=== PATIENT | female | born 1955 | race American Indian/Alaskan Native ===

== ENCOUNTER 2019-03-04 19:24 | Inpatient (IN) | payer SELFPAY ==
[2019-03-04 20:14] LABS: Basophils # (Auto) 0.1 K/mm3 (0.0-0.1); Basophils % (Auto) 1.6 % (0.0-1.8); Eosinophils # (Auto) 0.3 K/mm3 (0.0-0.4); Eosinophils % (Auto) 6.4 % (0.0-4.3); Hematocrit 44.2 % (30.3-42.9); Hemoglobin 15.2 gm/dl (10.1-14.3); Lymphocytes # (Auto) 2.1 K/mm3 (1.2-5.4); Lymphocytes % (Auto) 39.6 % (13.4-35.0); Mean Corpuscular HGB Conc 35 % (30-34); Mean Corpuscular Volume 93 fl (79-97); Monocytes # (Auto) 0.6 K/mm3 (0.0-0.8); Monocytes % (Auto) 10.7 % (0.0-7.3); Platelet Count 182 K/mm3 (140-440); Red Blood Count 4.76 M/mm3 (3.65-5.03); Red Cell Distribution Width 13.7 % (13.2-15.2)
[2019-03-04 20:26] LABS: INR 1.05 (0.87-1.13); Partial Thromboplastin Time 30.1 Sec. (24.2-36.6)
[2019-03-04 20:28] LABS: BUN/Creatinine Ratio 23; Blood Urea Nitrogen 64 mg/dL (7-17); Calcium 10.2 mg/dL (8.4-10.2); Hemolysis Index 11
--- NOTE | 2019-03-04 20:40 | Event Note ---
ED Screening Note ED Screening Note: This initial assessment/diagnostic orders/clinical plan/treatment(s) is/are subject to change based on patients health status, clinical progression and re- assessment by fellow clinical providers in the ED. Further treatment and workup at subsequent clinical providers discretion. Patient/guardian urged not to elope from the ED as their condition may be serious if not clinically assessed and managed. Initial orders include:
[2019-03-04] MEDS ORDERED: NACL 0.9% 1000 ML 1,000 ML IV ONE (21:16)
--- NOTE | 2019-03-04 21:55 | Emergency Department Report ---
ED N/V/D HPI - General Chief complaint: Nausea/Vomiting/Diarrhea Stated complaint: VOMITTING LOSS OF APPETITE Time Seen by Provider: 03/04/19 21:07 Source: family Mode of arrival: Wheelchair Limitations: Physical Limitation - History of Present Illness Initial comments: 63-year-old female with a past medical history CVA with residual dysarthria, left-sided facial droop, left-sided arm and leg weakness, hypertension, elevated cholesterol to the hospital complaining of nausea and poor by mouth tolerance for the past 4 days. Patient states that the smell of food makes her nauseated and therefore she has not been eating. She has been drinking lots of water. She denies headache, chest pain, abdominal pain, diarrhea, dysuria, or fever. She is visiting here from [place]. She denies a known history of renal insufficiency and states she is compliant with her medication. She denies previous abdominal surgeries Patient's daughter at the bedside at 11:50 PM and provided additional history of present illness. Patient apparently had a stroke 2 weeks ago while in [place] and was discharged then subsequently brought here to [facility] 2 weeks ago. Daughter also states that patient is having some trouble swallowing. Pt states she feels like pills get stuck when swallowing pills but drinking additional fluid helps. Pt passed swallow screen in the ED. - Related Data Allergies Allergy/AdvReac Type Severity Reaction Status Date / Time No Known Allergies Allergy Unverified 03/04/19 19:33 ED Review of Systems ROS: Stated complaint: VOMITTING LOSS OF APPETITE Other details as noted in HPI Comment: All other systems reviewed and negative ED Past Medical Hx - Past Medical History Previous Medical History?: Yes Hx Hypertension: Yes Hx CVA: Yes (left side deficits) Additional medical history: high cholesterol - Surgical History Past Surgical History?: No - Social History Smoking Status: Former Smoker Substance Use Type: None ED Physical Exam - General Limitations: Physical Limitation - Other Other exam information: General: No limitations, patient is alert in no acute distress Head exam: Atraumatic, normocephalic Eyes exam: Normal appearance, pupils equal reactive to light, extraocular movements intact ENT: Moist mucous membrane, normal oropharynx Neck exam: Normal inspection, full range of motion, no meningismus nontender Respiratory exam: Clear to auscultation bilateral, no wheezes, rales, crackles Cardiovascular: Normal rate and rhythm, Abdomen: Soft, nondistended, and nontender, with normal bowel sounds, no rebound, or guarding Extremity: Full range of motion normal inspection no deformity Back: Normal Inspection, full range of motion, no tenderness Neurologic: Alert, oriented x3, left-sided facial droop, dysarthria, left arm and leg with minimal movement secondary to previous CVA Psychiatric: normal affect, normal mood Skin: Warm, dry, intact ED Course Vital Signs 03/04/19 03/04/19 03/04/19 19:46 21:03 21:12 Temperature Pulse Rate 99 H Respiratory 16 18 Rate Blood Pressure 107/68 Blood Pressure [Right] O2 Sat by Pulse 95 100 99 Oximetry 03/04/19 03/04/19 03/04/19 21:13 21:15 21:31 Temperature 97.7 F Pulse Rate 86 Respiratory 18 Rate Blood Pressure 103/62 Blood Pressure 103/62 [Right] O2 Sat by Pulse 98 99 100 Oximetry - Consultations Consultation #1: 03/05/19 00:08 case d/w Dr Ferguson Nephrology, will consult ED Medical Decision Making - Lab Data Result diagrams: 03/04/19 Unknown 03/04/19 Unknown Lab Results 03/04/19 03/04/19 03/04/19 Range/Units 21:10 21:18 21:49 WBC (4.5-11.0) K/mm3 RBC (3.65-5.03) M/mm3 Hgb (10.1-14.3) gm/dl Hct (30.3-42.9) % MCV (79-97) fl MCH (28-32) pg MCHC (30-34) % RDW (13.2-15.2) % Plt Count (140-440) K/mm3 Lymph % (Auto) (13.4-35.0) % [place] % (Auto) (0.0-7.3) % Eos % (Auto) (0.0-4.3) % Baso % (Auto) (0.0-1.8) % Lymph # (1.2-5.4) K/mm3 [place] # (0.0-0.8) K/mm3 Eos # (0.0-0.4) K/mm3 Baso # (0.0-0.1) K/mm3 Seg Neutrophils % (40.0-70.0) % Seg Neutrophils # (1.8-7.7) K/mm3 PT (12.2-14.9) Sec. INR (0.87-1.13) APTT (24.2-36.6) Sec. Thrombin Time (15.1-19.6) Sec. Sodium (137-145) mmol/L Potassium (3.6-5.0) mmol/L Chloride (98-107) mmol/L Carbon Dioxide (22-30) mmol/L Anion Gap mmol/L BUN (7-17) mg/dL Creatinine (0.7-1.2) mg/dL Estimated GFR ml/min BUN/Creatinine Ratio % Glucose (65-100) mg/dL Calcium (8.4-10.2) mg/dL Magnesium 0.20 L* (1.7-2.3) mg/dL Total Bilirubin 0.60 (0.1-1.2) mg/dL Direct Bilirubin < 0.2 (0-0.2) mg/dL Indirect Bilirubin 0.4 mg/dL AST 38 (5-40) units/L ALT 22 (7-56) units/L Alkaline Phosphatase 124 (35-129) units/L Troponin T (0.00-0.029) ng/mL Total Protein 7.6 (6.3-8.2) g/dL Albumin 3.9 (3.9-5) g/dL Albumin/Globulin Ratio 1.1 % Lipase 24 (13-60) units/L 03/04/19 03/04/19 03/04/19 Range/Units Unknown Unknown Unknown WBC 5.4 (4.5-11.0) K/mm3 RBC 4.76 (3.65-5.03) M/mm3 Hgb 15.2 H (10.1-14.3) gm/dl Hct 44.2 H (30.3-42.9) % MCV 93 (79-97) fl MCH 32 (28-32) pg MCHC 35 H (30-34) % RDW 13.7 (13.2-15.2) % Plt Count 182 (140-440) K/mm3 Lymph % (Auto) 39.6 H (13.4-35.0) % Marion % (Auto) 10.7 H (0.0-7.3) % Eos % (Auto) 6.4 H (0.0-4.3) % Baso % (Auto) 1.6 (0.0-1.8) % Lymph # 2.1 (1.2-5.4) K/mm3 Marion # 0.6 (0.0-0.8) K/mm3 Eos # 0.3 (0.0-0.4) K/mm3 Baso # 0.1 (0.0-0.1) K/mm3 Seg Neutrophils % 41.7 (40.0-70.0) % Seg Neutrophils # 2.3 (1.8-7.7) K/mm3 PT 14.4 (12.2-14.9) Sec. INR 1.05 (0.87-1.13) APTT 30.1 (24.2-36.6) Sec. Thrombin Time (15.1-19.6) Sec. Sodium 133 L (137-145) mmol/L Potassium 3.3 L (3.6-5.0) mmol/L Chloride 87.6 L (98-107) mmol/L Carbon Dioxide 25 (22-30) mmol/L Anion Gap 24 mmol/L BUN 64 H (7-17) mg/dL Creatinine 2.8 H (0.7-1.2) mg/dL Estimated GFR 17 ml/min BUN/Creatinine Ratio 23 % Glucose 84 (65-100) mg/dL Calcium 10.2 (8.4-10.2) mg/dL Magnesium (1.7-2.3) mg/dL Total Bilirubin (0.1-1.2) mg/dL Direct Bilirubin (0-0.2) mg/dL Indirect Bilirubin mg/dL AST (5-40) units/L ALT (7-56) units/L Alkaline Phosphatase (35-129) units/L Troponin T < 0.010 (0.00-0.029) ng/mL Total Protein (6.3-8.2) g/dL Albumin (3.9-5) g/dL Albumin/Globulin Ratio % Lipase (13-60) units/L 03/04/19 Range/Units Unknown WBC (4.5-11.0) K/mm3 RBC (3.65-5.03) M/mm3 Hgb (10.1-14.3) gm/dl Hct (30.3-42.9) % MCV (79-97) fl MCH (28-32) pg MCHC (30-34) % RDW (13.2-15.2) % Plt Count (140-440) K/mm3 Lymph % (Auto) (13.4-35.0) % [place] % (Auto) (0.0-7.3) % Eos % (Auto) (0.0-4.3) % Baso % (Auto) (0.0-1.8) % Lymph # (1.2-5.4) K/mm3 [place] # (0.0-0.8) K/mm3 Eos # (0.0-0.4) K/mm3 Baso # (0.0-0.1) K/mm3 Seg Neutrophils % (40.0-70.0) % Seg Neutrophils # (1.8-7.7) K/mm3 PT (12.2-14.9) Sec. INR (0.87-1.13) APTT (24.2-36.6) Sec. Thrombin Time 18.3 (15.1-19.6) Sec. Sodium (137-145) mmol/L Potassium (3.6-5.0) mmol/L Chloride (98-107) mmol/L Carbon Dioxide (22-30) mmol/L Anion Gap mmol/L BUN (7-17) mg/dL Creatinine (0.7-1.2) mg/dL Estimated GFR ml/min BUN/Creatinine Ratio % Glucose (65-100) mg/dL Calcium (8.4-10.2) mg/dL Magnesium (1.7-2.3) mg/dL Total Bilirubin (0.1-1.2) mg/dL Direct Bilirubin (0-0.2) mg/dL Indirect Bilirubin mg/dL AST (5-40) units/L ALT (7-56) units/L Alkaline Phosphatase (35-129) units/L Troponin T (0.00-0.029) ng/mL Total Protein (6.3-8.2) g/dL Albumin (3.9-5) g/dL Albumin/Globulin Ratio % Lipase (13-60) units/L - EKG Data -: EKG Interpreted by [facility] EKG shows normal: sinus rhythm, axis (qrs 45), QRS complexes (qrsd 85), ST-T waves (no stemi) Rate: tachycardia (110) - Radiology Data Radiology results: report reviewed PROCEDURE: CT head without contrast. TECHNIQUE: Computerized tomography of the head was performed without contrast material. CT DOSE LENGTH PRODUCT: 805.4 mGycm HISTORY: neuro deficits <6hrs or sx present upon awakening COMPARISONS: None. FINDINGS: The ventricles are normal in size. There is diminished attenuation within the lateral portions of the right frontal and right temporal lobes. This shows no mass effect. The appearance is consistent with encephalomalacia, likely secondary to a prior stroke. There is an old lacunar infarct in the left putamen. There is mild evidence of chronic ischemic white matter disease. There are no mass lesions. There is no intracranial hemorrhage. The calvarium appears intact. The mastoid air cells and visualized paranasal sinuses are well aerated. IMPRESSION: Old right-sided stroke. No evidence of acute disease. ADDENDUM ADDENDUM: Findings were discussed with Dr. Almendarez at 11:45 PM EST on March 04, 2019 This document is electronically signed by Wenceslao Riddle MD., March 05 2019 12:46:32 AM ET Addendum Transcribed By: ANGELINA Addendum Dictated By: SHELIA RIDDLE MD Addendum Electronically Authenticated By: SHELIA RIDDLE MD Addendum Signed Date/Time: 03/04/19 2348 DD/ TD/TT: 03/04/19 PROCEDURE: CT ABDOMEN PELVIS WO CON TECHNIQUE: CT abdomen and pelvis without intravenous contrast HISTORY: nausea, not eating, acute renal insufficiency COMPARISONS: There are no prior studies available for comparison FINDINGS: No acute abnormalities identified in the lung bases. Nonenhanced images of the liver demonstrate no focal abnormality. Spleen is normal in size and attenuation. The pancreas is unremarkable Numerous dense foci are seen layering within the lumen of the gallbladder There is a large complex cystic septated mass upper lobe of the right kidney measuring 0.5 x 4.7 x 4.8 cm. There is some peripheral calcification. Numerous nonobstructing renal calculi are identified largest measuring 0.93 cm. No ureteral calculus identified. no evidence for hydronephrosis. There are multiple nonobstructing left renal calculi the largest measuring 0.63 cm no evidence for hydronephrosis. Adrenal glands are unremarkable. The aorta is normal in caliber. No evidence for colonic or small bowel distention. No free fluid or free air identified. Appendix is identified and is unremarkable. Urinary bladder is unremarkable. Uterus appears normal in size. IMPRESSION: Large cystic mass upper pole of the right kidney highly concerning for neoplasm Multiple bilateral nonobstructing renal calculi Cholelithiasis multiple small stones in the gallbladder CTR 2 protocol initiated at the time of this dictation - Medical Decision Making admission for ARF, Renal MAss possible CA, dehydration and electrolyte abnormalities Patient treated with IV magnesium, IV normal saline, and by mouth potassium in the ED. Patient passed her swallow screen. Patient has chronic deficits, recent CVA 2 weeks ago. Daughter plans to bring in her recent workup from [place]. Nephrology consulted Hospitalist informed for admission urine pending at dispo - Differential Diagnosis anemia, infection, gastroenteritis, cancer Critical Care Time: No Critical care attestation.: If time is entered above; I have spent that time in minutes in the direct care of this critically ill patient, excluding procedure time. ED Disposition Clinical Impression: Acute renal insufficiency, Poor appetite, Renal mass, Hypokalemia, Hypomagnesemia Disposition: OP ADMIT IP TO THIS HOSP Is pt being admited?: Yes Condition: Stable Time of Disposition: 00:23 (Dr Menendez/hosp)
[2019-03-04 22:09] LABS: Alanine Aminotransferase 22 units/L (7-56); Albumin 3.9 g/dL (3.9-5)
[2019-03-04 22:12] LABS: Bilirubin,Direct < 0.2 mg/dL (0-0.2)
[2019-03-04] MEDS ORDERED: MAGNESIUM SULFATE 2GM/50ML 2 GM/50 ML BAG IV ONE ×2 (22:15→22:18)
--- NOTE | 2019-03-04 22:22 | Cat Scan Report ---
PROCEDURE: CT head without contrast. TECHNIQUE: Computerized tomography of the head was performed without contrast material. CT DOSE LENGTH PRODUCT: 805.4 mGycm HISTORY: neuro deficits <6hrs or sx present upon awakening COMPARISONS: None. FINDINGS: The ventricles are normal in size. There is diminished attenuation within the lateral portions of the right frontal and right temporal lobes. This shows no mass effect. The appearance is consistent with encephalomalacia, likely secondary to a prior stroke. There is an old lacunar infarct in the left pu tamen. There is mild evidence of chronic ischemic white matter disease. There are no mass lesions. Th ere is no intracranial hemorrhage. The calvarium appears intact. The mastoid air cells and visualized paranasal sinuses are well aerated. IMPRESSION: Old right-sided stroke. No evidence of acute disease. This document is electronically signed by Cm Redding MD., Mar 04 2019 11:20:24 PM ET
--- NOTE | 2019-03-04 23:42 | Cat Scan Report ---
PROCEDURE: CT ABDOMEN PELVIS WO CON TECHNIQUE: CT abdomen and pelvis without intravenous contrast HISTORY: nausea, not eating, acute renal insufficiency COMPARISONS: There are no prior studies available for comparison FINDINGS: No acute abnormalities identified in the lung bases. Nonenhanced images of the liver demonstrate no focal abnormality. Spleen is normal in size and attenuation. The pancreas is unremarkable Numerous dense foci are seen layering within the lumen of the gallbladder There is a large complex cystic septated mass upper lobe of the right kidney measuring 0.5 x 4.7 x 4. 8 cm. There is some peripheral calcification. Numerous nonobstructing renal calculi are identified la rgest measuring 0.93 cm. No ureteral calculus identified. no evidence for hydronephrosis. There are multiple nonobstructing left renal calculi the largest measuring 0.63 cm no evidence for hy dronephrosis. Adrenal glands are unremarkable. The aorta is normal in caliber. No evidence for colonic or small bowel distention. No free fluid or free air identified. Appendix is identified and is unremarkable. Urinary bladder is unremarkable. Uterus appears normal in size. IMPRESSION: Large cystic mass upper pole of the right kidney highly concerning for neoplasm Multiple bilateral nonobstructing renal calculi Cholelithiasis multiple small stones in the gallbladder CTR 2 protocol initiated at the time of this dictation This document is electronically signed by eWnceslao Rodríguez MD., March 05 2019 12:40:42 AM ET
[2019-03-04] MEDS ORDERED: POTASSIUM CHLORIDE PO ONE (23:52)
[2019-03-05] MEDS ORDERED: ZOFRAN IV PRN (01:21)
[2019-03-05] MEDS ORDERED: TYLENOL PO PRN (01:21)
[2019-03-05] MEDS ORDERED: SODIUM CHLORIDE FLUSH SYRINGE 10 ML IV PRN (01:21)
[2019-03-05] MEDS ORDERED: MAGNESIUM SULFATE 2GM/50ML 2 GM/50 ML BAG IV ONE (01:34)
[2019-03-05] MEDS ORDERED: NACL 0.9% 1000 ML 1,000 ML IV SCH (02:00)
--- NOTE | 2019-03-05 02:18 | History and Physical Report ---
History of Present Illness Date of examination: 03/05/19 Chief complaint: Poor oral intake History of present illness: Patient is a 63 year old female with history of recent CVA (2 weeks ago) and hypertension who presented to the ED on account of poor oral intake. She has associated difficulty swallowing and generalized weakness. She denies weight loss, nausea, vomiting, abdominal pain, fever, chills, cough, chest pain, shortness of breath, palpitation, headaches, dizziness, syncope or loss of consciousness. Past History Past Medical History: hypertension, hyperlipidemia, stroke (with residual left sided deficit and memory loss) Past Surgical History: No surgical history Social history: smoking (patient is an ex-smoker of unknown years. She denies alcohol or illicit drug use) Family history: other (unable to obtain due to memory loss) Medications and Allergies Allergies Allergy/AdvReac Type Severity Reaction Status Date / Time No Known Allergies Allergy Unverified 03/04/19 19:33 Active Meds: Active Medications Acetaminophen (Tylenol) 650 mg PO Q4H PRN PRN Reason: Pain MILD(1-3)/Fever >100.5/[place] Docusate Sodium (Colace) 100 mg PO BID MINOR Heparin Sodium (Porcine) (Heparin) 5,000 unit SUB-Q Q8HR MINOR Sodium Chloride (Nacl 0.9% 1000 Ml) 1,000 mls @ 125 mls/hr IV DIRECT MINOR Ondansetron HCl (Zofran) 4 mg IV Q8H PRN PRN Reason: Nausea And Vomiting Oxycodone/Acetaminophen (Percocet 5/325) 1 tab PO Q6H PRN PRN Reason: Pain, Moderate (4-6) Sodium Chloride (Sodium Chloride Flush Syringe 10 Ml) 10 ml IV BID MINOR Sodium Chloride (Sodium Chloride Flush Syringe 10 Ml) 10 ml IV PRN PRN PRN Reason: LINE FLUSH Review of Systems All systems: negative (except as documented in HPI, 14 point system reviewed were negative) Exam - Constitutional Vitals: Temp Pulse Resp BP Pulse Ox 97.7 F 86 18 103/62 100 03/04/19 21:13 03/04/19 21:13 03/04/19 21:13 03/04/19 21:31 03/04/19 21:31 General appearance: Present: no acute distress - EENT Eyes: Present: PERRL, EOM intact ENT: hearing intact, clear oral mucosa - Neck Neck: Present: supple - Respiratory Respiratory effort: normal Respiratory: bilateral: CTA - Cardiovascular Rhythm: regular Heart Sounds: Present: S1 & S2 - Extremities Extremities: No edema Peripheral Pulses: within normal limits - Abdominal General gastrointestinal: Present: soft, non-tender, non-distended, normal bowel sounds Female genitourinary: Present: deferred - Integumentary Integumentary: Present: clear, warm, dry - Musculoskeletal Musculoskeletal: left sided weakness - Psychiatric Psychiatric: appropriate mood/affect, cooperative - Neurologic Neurologic: focal deficits (left-sided weakness) Results - Labs CBC & Chem 7: 03/04/19 Unknown 03/04/19 Unknown Labs: Laboratory Last Values WBC 5.4 K/mm3 (4.5-11.0) 03/04/19 Unknown RBC 4.76 M/mm3 (3.65-5.03) 03/04/19 Unknown Hgb 15.2 gm/dl (10.1-14.3) H 03/04/19 Unknown Hct 44.2 % (30.3-42.9) H 03/04/19 Unknown MCV 93 fl (79-97) 03/04/19 Unknown MCH 32 pg (28-32) 03/04/19 Unknown MCHC 35 % (30-34) H 03/04/19 Unknown RDW 13.7 % (13.2-15.2) 03/04/19 Unknown Plt Count 182 K/mm3 (140-440) 03/04/19 Unknown Lymph % (Auto) 39.6 % (13.4-35.0) H 03/04/19 Unknown [place] % (Auto) 10.7 % (0.0-7.3) H 03/04/19 Unknown Eos % (Auto) 6.4 % (0.0-4.3) H 03/04/19 Unknown Baso % (Auto) 1.6 % (0.0-1.8) 03/04/19 Unknown Lymph # 2.1 K/mm3 (1.2-5.4) 03/04/19 Unknown [place] # 0.6 K/mm3 (0.0-0.8) 03/04/19 Unknown Eos # 0.3 K/mm3 (0.0-0.4) 03/04/19 Unknown Baso # 0.1 K/mm3 (0.0-0.1) 03/04/19 Unknown Seg Neutrophils % 41.7 % (40.0-70.0) 03/04/19 Unknown Seg Neutrophils # 2.3 K/mm3 (1.8-7.7) 03/04/19 Unknown PT 14.4 Sec. (12.2-14.9) 03/04/19 Unknown INR 1.05 (0.87-1.13) 03/04/19 Unknown APTT 30.1 Sec. (24.2-36.6) 03/04/19 Unknown 18.3 Sec. (15.1-19.6) 03/04/19 Unknown Sodium 133 mmol/L (137-145) L 03/04/19 Unknown Potassium 3.3 mmol/L (3.6-5.0) L 03/04/19 Unknown Chloride 87.6 mmol/L (98-107) L 03/04/19 Unknown Carbon Dioxide 25 mmol/L (22-30) 03/04/19 Unknown 24 mmol/L 03/04/19 Unknown BUN 64 mg/dL (7-17) H 03/04/19 Unknown 2.8 mg/dL (0.7-1.2) H 03/04/19 Unknown Estimated GFR 17 ml/min 03/04/19 Unknown 23 % 03/04/19 Unknown Glucose 84 mg/dL (65-100) 03/04/19 Unknown Calcium 10.2 mg/dL (8.4-10.2) 03/04/19 Unknown Magnesium 0.20 mg/dL (1.7-2.3) L* 03/04/19 21:49 0.60 mg/dL (0.1-1.2) 03/04/19 21:18 < 0.2 mg/dL (0-0.2) 03/04/19 21:18 0.4 mg/dL 03/04/19 21:18 AST 38 units/L (5-40) 03/04/19 21:18 ALT 22 units/L (7-56) 03/04/19 21:18 124 units/L (35-129) 03/04/19 21:18 < 0.010 ng/mL (0.00-0.029) 03/04/19 Unknown 7.6 g/dL (6.3-8.2) 03/04/19 21:18 3.9 g/dL (3.9-5) 03/04/19 21:18 1.1 % 03/04/19 21:18 24 units/L (13-60) 03/04/19 21:10 Assessment and Plan Assessment and plan: ARF -On IV fluid, will monitor creatinine level -Nephrology consulted in the ED New RT renal mass per CT abdomen/pelvis -Patient will need biopsy Hypokalemia -Repleted, we'll monitor level Severe Hypomagnesemia -Repleted, we'll monitor level History of recent CVA with residual left-sided weakness -Continue aspirin and statin -PT/OT consulted Possible dysphagia -Speech therapy consulted Hyperlipidemia -On statin Hypertension -Controlled DVT prophylaxis with heparin Disposition: For discharge when medically stable Time spent: 38 minutes
[2019-03-05 02:29] LABS: Bacteria,Urine 4+ /HPF (Negative); Bilirubin,Urine NEG (Negative); Blood,Urine LG (Negative); Color,Urine Yellow (Yellow); Mucus,Urine FEW /HPF; Urobilinogen,Urine < 2.0 mg/dL (<2.0)
[2019-03-05 02:34] LABS: RBC,Urine > 182.0 /HPF (0.0-6.0); WBC,Urine > 182.0 /HPF (0.0-6.0)
[2019-03-05] MEDS: HEPARIN SUB-Q SCH ×3 (05:16→21:26)
[2019-03-05 07:19] LABS: Calcium 9.5 mg/dL (8.4-10.2); Chol/HDL Ratio 3.58 %
--- NOTE | 2019-03-05 08:51 | Consultation ---
History of Present Illness - Reason for Consult Consult date: 03/05/19 acute renal failure - History of Present Illness This is a 63 year old female who presents to the E.R with a chief complaint of having nausea and vomiting and poor appetite for approximately 4 days. Patient is visiting from [place] and stays with daughter who is present at bedside. On evaluation patient was noted to have an elevated serum creatinine of 2.8. Serum creatinine was 1.04 on 01/31/19 labs done in [place] when she was admitted there for CVA. 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 We are being conuslted for management of this patient's Acute Renal Failure. Past History Past Medical History: hypertension, hyperlipidemia, stroke (with residual left sided deficit and memory loss) Past Surgical History: No surgical history Social history: smoking (patient is an ex-smoker of unknown years. She denies alcohol or illicit drug use) Family history: other (unable to obtain due to memory loss) Medications and Allergies Allergies Allergy/AdvReac Type Severity Reaction Status Date / Time No Known Allergies Allergy Unverified 03/04/19 19:33 Home Medications Medication Instructions Recorded Confirmed Last Taken Type Aspirin [Aspirin BABY CHEW TAB] 81 mg PO DAILY 03/05/19 03/05/19 Unknown History Active Meds: Active Medications Acetaminophen (Tylenol) 650 mg PO Q4H PRN PRN Reason: Pain MILD(1-3)/Fever >100.5/[facility] Aspirin (Aspirin) 325 mg PO QDAY [facility] Atorvastatin Calcium (Lipitor) 40 mg PO QHS [facility] Docusate Sodium (Colace) 100 mg PO BID [facility] Heparin Sodium (Porcine) (Heparin) 5,000 unit SUB-Q Q8HR [facility] Last Admin: 03/05/19 05:16 Dose: 5,000 unit Documented by: Sodium Chloride (Nacl 0.9% 1000 Ml) 1,000 mls @ 125 mls/hr IV DIRECT [facility] Last Admin: 03/05/19 04:31 Dose: 125 mls/hr Documented by: Ondansetron HCl (Zofran) 4 mg IV Q8H PRN PRN Reason: Nausea And Vomiting Oxycodone/Acetaminophen (Percocet 5/325) 1 tab PO Q6H PRN PRN Reason: Pain, Moderate (4-6) Sodium Chloride (Sodium Chloride Flush Syringe 10 Ml) 10 ml IV BID [facility] Sodium Chloride (Sodium Chloride Flush Syringe 10 Ml) 10 ml IV PRN PRN PRN Reason: LINE FLUSH Review of Systems Constitutional: fatigue, poor appetite, no weight loss, no weight gain, no fever, no chills, no sweats Ears, nose, mouth and throat: no ear pain, no ear discharge, no tinnitis, no decreased hearing, no nose pain, no nasal congestion Breasts: deferred Cardiovascular: no chest pain, no orthopnea, no palpitations, no rapid/irregular heart beat, no edema Respiratory: no cough, no cough with sputum, no excessive sputum, no hemoptysis, no shortness of breath, no dyspnea on exertion Gastrointestinal: nausea, other (patient had froth coming up per daughter), no abdominal pain, no vomiting, no diarrhea Genitourinary Female: no pelvic pain, no flank pain, no menorrhagia, no urinary frequency Rectal: no pain, no incontinence, no bleeding Musculoskeletal: no neck stiffness, no neck pain, no hot joints Integumentary: no rash, no pruritis, no redness, no sores, no wounds Neurological: weakness, other (Left side weakness) Psychiatric: no memory loss, no insomnia, no hypersomnia Endocrine: no cold intolerance, no heat intolerance, no polyphagia, no excessive thirst Exam - Vital Signs Vital signs: Vital Signs Pulse Resp BP Pulse Ox 99 H 16 107/68 95 03/04/19 19:46 03/04/19 19:46 03/04/19 19:46 03/04/19 19:46 - General Appearance General appearance: well-developed, appears stated age, fatigue EENT: ATNC, PERRL, hearing intact, vision intact Neck: Present: neck supple, trachea midline Respiratory: Decreased Breath Sounds Heart: regular, S1S2 Gastrointestinal: Present: normoactive bowel sounds Integumentary: warm and dry Neurologic: alert and oriented x3 Musculoskeletal: Present: other (No edema ) Results - Lab Results 03/04/19 Unknown 03/05/19 05:35 Most recent lab results Calcium 9.5 mg/dL (8.4-10.2) 03/05/19 05:35 Phosphorus 2.80 mg/dL (2.5-4.5) 03/05/19 05:35 Magnesium 3.90 mg/dL (1.7-2.3) H 03/05/19 05:35 Assessment and Plan Acute Renal Failure likely secondary to Prerenal Azotemia secondary to volume depletion from N/V and poor oral intake: -Renal labs reviewed. Serum creatinine 2.1 today which has improved on iV hydration from 2.8 yesterday -Serum creatinine noted ot be 1.04 on outside lab done on 01/31/19 -Reviewed Ct scan of Abdomen/Pelvis- Large cystic mass to upper pole pf right kidney with concern for neoplasm noted. Will consult Urologist- Dr. Freitas for further evaluation of the mass -Will obtain urine lytes -On NS@ 125 ml/hr -Strict I/O monitoring -Avoid Nephrotoxic agents -Renally dose medications -Will monitor renal function closely Hypertension: -Monitor blood pressures -Currently controlled History of CVA with residual left-sided weakness -On Aspirin and Atorvastatin -PT/OT consulted -Speech consulted
[2019-03-05] MEDS: COLACE PO SCH ×2 (09:57→21:27)
[2019-03-05] MEDS: ASPIRIN PO SCH (09:57)
[2019-03-05] MEDS: SODIUM CHLORIDE FLUSH SYRINGE 10 ML IV SCH ×2 (09:57→22:40)
--- NOTE | 2019-03-05 11:33 | Progress Note ---
Assessment and Plan ARF -On IV fluid, will monitor creatinine level -Nephrology consulted in the ED New RT renal mass per CT abdomen/pelvis -Patient will need biopsy - Bilateral nonobstructing renal calculi Nephrology science consultant - UTI Obtain urine culture Comments IV antibiotics Hypokalemia -Repleted, we'll monitor level - Dysphagia Speech to evalute swallowing Severe Hypomagnesemia - corrected -Repleted, we'll monitor level History of recent CVA with residual left-sided weakness -Continue aspirin and statin -PT/OT/ST consulted Possible dysphagia -Speech therapy consulted Hyperlipidemia -On statin Hypertension -Controlled DVT prophylaxis with heparin Subjective Date of service: 03/05/19 Principal diagnosis: acute renal failure, right renal mass, hypertension, dysphagia, old CVA Interval history: Patient sitting up in bed drooling. Family members in the room stated that she is unable to swallow since after her stroke in January 2019. Denies any fever. No chest pain. Objective - Exam Narrative Exam: Constitutional: Well-nourished well-developed. In no distress Head: Normocephalic atraumatic Eyes: Pupils are equal round and reactive to light Nose: No enlarged turbinates, no septal deviation. Mouth: Moist mucous membranes. Neck: Supple no thyromegaly. No bruit. No JVD Heart: Regular rate and rhythm, S1-S2 normal. No rubs murmurs or gallop Lungs: Clear to auscultation bilaterally. no rales or rhonchi Abdomen: Soft, nontender. Bowel sound are present. Extremities: No edema, no cyanosis, no clubbing. Neuro: Alert oriented Oriented x2. No focal sensory or motor deficit. Skin: No rashes or hyperpigmented spots Musculoskeletal system: No joint pain or swelling Hematological: No petechia or subcutanous hemorrhages. Immunological: No multiple septic spots on the skin Lymphatic: No generalized lymphadenopathy Psychiatry: Euthymic. Calm. - Constitutional Vitals: Vital Signs - 12hr 03/04/19 03/05/19 03/05/19 23:47 00:01 01:00 Temperature Pulse Rate Respiratory Rate Blood Pressure 116/77 113/69 Blood Pressure [Right] O2 Sat by Pulse 100 100 98 Oximetry 03/05/19 03/05/19 03/05/19 02:00 03:00 03:36 Temperature Pulse Rate 76 Respiratory 16 Rate Blood Pressure 124/56 109/49 Blood Pressure 109/49 [Right] O2 Sat by Pulse 98 98 97 Oximetry 03/05/19 04:19 Temperature 98.0 F Pulse Rate 80 Respiratory 18 Rate Blood Pressure 130/61 Blood Pressure [Right] O2 Sat by Pulse 100 Oximetry - Labs CBC & Chem 7: 03/04/19 Unknown 03/05/19 05:35 Labs: Abnormal lab results 03/04/19 03/04/19 03/04/19 Range/Units 02:04 21:49 Unknown Hgb 15.2 H (10.1-14.3) gm/dl Hct 44.2 H (30.3-42.9) % MCHC 35 H (30-34) % Lymph % (Auto) 39.6 H (13.4-35.0) % Adams % (Auto) 10.7 H (0.0-7.3) % Eos % (Auto) 6.4 H (0.0-4.3) % Sodium (137-145) mmol/L Potassium (3.6-5.0) mmol/L Chloride (98-107) mmol/L BUN (7-17) mg/dL Creatinine (0.7-1.2) mg/dL Magnesium 0.20 L* (1.7-2.3) mg/dL HDL Cholesterol (40-59) mg/dL Urine WBC (Auto) > 182.0 H (0.0-6.0) /HPF 03/04/19 03/05/19 03/05/19 Range/Units Unknown 05:35 05:35 Hgb (10.1-14.3) gm/dl Hct (30.3-42.9) % MCHC (30-34) % Lymph % (Auto) (13.4-35.0) % Adams % (Auto) (0.0-7.3) % Eos % (Auto) (0.0-4.3) % Sodium 133 L (137-145) mmol/L Potassium 3.3 L (3.6-5.0) mmol/L Chloride 87.6 L 96.1 L (98-107) mmol/L BUN 64 H 56 H (7-17) mg/dL Creatinine 2.8 H 2.1 H (0.7-1.2) mg/dL Magnesium 3.90 H (1.7-2.3) mg/dL HDL Cholesterol 39 L (40-59) mg/dL Urine WBC (Auto) (0.0-6.0) /HPF
[2019-03-05 12:38] LABS: Creatinine,Urine 82.7 mg/dL (0.1-20.0); Protein/Creatinine Ratio,Urine 0.33
[2019-03-05] MEDS: D5NS 1,000 ML IV SCH (13:03)
--- NOTE | 2019-03-05 14:57 | Consultation ---
History of Present Illness - Reason for Consult Consult date: 03/05/19 - History of Present Illness new pt to our service 63-year-old female with a past medical history CVA with residual dysarthria, left-sided facial droop, left-sided arm and leg weakness, hypertension, elevated cholesterol to the hospital complaining of nausea and poor by mouth tolerance for the past 4 days. Patient states that the smell of food makes her nauseated and therefore she has not been eating. She has been drinking lots of water. She denies headache, chest pain, abdominal pain, diarrhea, dysuria, or fever. She is visiting here from [place]. She denies a known history of renal insufficiency and states she is compliant with her medication. She denies previous abdominal surgeries pt without complaints abd soft Ct scan of Abdomen/Pelvis(no contrast) - 4cm cystic mass to upper pole pf right kidney + kidney stones bilat---largest 9mm, + gall stones A/P rt renal mass + kidney stones + gall stones ----no contrast due to kidney function, needs renal us Past History Past Medical History: hypertension, hyperlipidemia, stroke (with residual left sided deficit and memory loss) Past Surgical History: No surgical history Social history: smoking (patient is an ex-smoker of unknown years. She denies alcohol or illicit drug use) Family history: other (unable to obtain due to memory loss) Medications and Allergies Allergies Allergy/AdvReac Type Severity Reaction Status Date / Time No Known Allergies Allergy Unverified 03/04/19 19:33 Home Medications Medication Instructions Recorded Confirmed Last Taken Type Aspirin [Aspirin BABY CHEW TAB] 81 mg PO DAILY 03/05/19 03/05/19 Unknown History Hyzaar 100-12.5 Tablet 50 mg PO DAILY 03/05/19 03/05/19 Unknown History Lipitor 20 mg PO DAILY 03/05/19 03/05/19 Unknown History NIFEdipine XL [Procardia Xl] 20 mg PO QDAY 03/05/19 03/05/19 Unknown History Active Meds: Active Medications Acetaminophen (Tylenol) 650 mg PO Q4H PRN PRN Reason: Pain MILD(1-3)/Fever >100.5/[facility] Aspirin (Aspirin) 325 mg PO QDAY [facility] Last Admin: 03/05/19 09:57 Dose: 325 mg Documented by: Atorvastatin Calcium (Lipitor) 40 mg PO QHS [facility] Docusate Sodium (Colace) 100 mg PO BID [facility] Last Admin: 03/05/19 09:57 Dose: 100 mg Documented by: Heparin Sodium (Porcine) (Heparin) 5,000 unit SUB-Q Q8HR [facility] Last Admin: 03/05/19 13:03 Dose: 5,000 unit Documented by: Dextrose/Sodium Chloride (D5ns) 1,000 mls @ 125 mls/hr IV DIRECT [facility] Last Admin: 03/05/19 13:03 Dose: 125 mls/hr Documented by: Ondansetron HCl (Zofran) 4 mg IV Q8H PRN PRN Reason: Nausea And Vomiting Oxycodone/Acetaminophen (Percocet 5/325) 1 tab PO Q6H PRN PRN Reason: Pain, Moderate (4-6) Sodium Chloride (Sodium Chloride Flush Syringe 10 Ml) 10 ml IV BID [facility] Last Admin: 03/05/19 09:57 Dose: 10 ml Documented by: Sodium Chloride (Sodium Chloride Flush Syringe 10 Ml) 10 ml IV PRN PRN PRN Reason: LINE FLUSH Exam - Constitutional Vitals: Temp Pulse Resp BP Pulse Ox 97.3 F L 79 18 117/71 100 03/05/19 11:13 03/05/19 11:13 03/05/19 11:13 03/05/19 11:13 03/05/19 11:13 Results - Labs CBC & Chem 7: 03/04/19 Unknown 03/05/19 05:35 Labs: Abnormal lab results 03/04/19 03/04/19 03/04/19 Range/Units 02:04 21:49 Unknown Hgb 15.2 H (10.1-14.3) gm/dl Hct 44.2 H (30.3-42.9) % MCHC 35 H (30-34) % Lymph % (Auto) 39.6 H (13.4-35.0) % Wolfe % (Auto) 10.7 H (0.0-7.3) % Eos % (Auto) 6.4 H (0.0-4.3) % Sodium (137-145) mmol/L Potassium (3.6-5.0) mmol/L Chloride (98-107) mmol/L BUN (7-17) mg/dL Creatinine (0.7-1.2) mg/dL Magnesium 0.20 L* (1.7-2.3) mg/dL HDL Cholesterol (40-59) mg/dL Urine WBC (Auto) > 182.0 H (0.0-6.0) /HPF Urine Creatinine (0.1-20.0) mg/dL Urine Total Protein (5-11.8) mg/dL 03/04/19 03/05/19 03/05/19 Range/Units Unknown 05:35 05:35 Hgb (10.1-14.3) gm/dl Hct (30.3-42.9) % MCHC (30-34) % Lymph % (Auto) (13.4-35.0) % Wolfe % (Auto) (0.0-7.3) % Eos % (Auto) (0.0-4.3) % Sodium 133 L (137-145) mmol/L Potassium 3.3 L (3.6-5.0) mmol/L Chloride 87.6 L 96.1 L (98-107) mmol/L BUN 64 H 56 H (7-17) mg/dL Creatinine 2.8 H 2.1 H (0.7-1.2) mg/dL Magnesium 3.90 H (1.7-2.3) mg/dL HDL Cholesterol 39 L (40-59) mg/dL Urine WBC (Auto) (0.0-6.0) /HPF Urine Creatinine (0.1-20.0) mg/dL Urine Total Protein (5-11.8) mg/dL 03/05/19 Range/Units 09:11 Hgb (10.1-14.3) gm/dl Hct (30.3-42.9) % MCHC (30-34) % Lymph % (Auto) (13.4-35.0) % Wolfe % (Auto) (0.0-7.3) % Eos % (Auto) (0.0-4.3) % Sodium (137-145) mmol/L Potassium (3.6-5.0) mmol/L Chloride (98-107) mmol/L BUN (7-17) mg/dL Creatinine (0.7-1.2) mg/dL Magnesium (1.7-2.3) mg/dL HDL Cholesterol (40-59) mg/dL Urine WBC (Auto) (0.0-6.0) /HPF Urine Creatinine 82.7 H (0.1-20.0) mg/dL Urine Total Protein 27 H (5-11.8) mg/dL
[2019-03-05] MEDS ORDERED: HYZAAR PO SCH (17:30)
[2019-03-05] MEDS: ROCEPHIN/NS 1 GM/50 ML 1 GM/50 ML BAG IV SCH (18:41)
--- NOTE | 2019-03-05 19:34 | Ultrasound Report ---
PROCEDURE: US RENAL BILAT TECHNIQUE: Ultrasound abdomen HISTORY: rt kidney mass COMPARISONS: Correlated with prior CT of March 04, 2019 FINDINGS: At the upper pole right kidney there is a cystic mass with thick septations measuring 5.7 x 4.4 x 5.8 cm there is some peripheral echogenic calcification present. This has a more solid appearance though superiorly and inferiorly some vascularity noted at the margins. Multiple nonobstructing renal calcu li are additionally identified right kidney There are multiple nonobstructing left renal calculi approximately bodies are observed with largest 1 .2 x 0.4 x 1.2 cm. No evidence for hydronephrosis normal. IMPRESSION: Large complex cystic and solid mass within the upper pole of the right kidney highly concerning for n eoplasm Please note there is typographical error measurement on the previous CT report sonographically mass m easuring approximately 5.7 x 4.4 x 5.8 cm. Multiple additional nonobstructing renal calculi are observed. This document is electronically signed by Wenceslao Rodríguez MD., March 05 2019 08:32:26 PM ET
[2019-03-05] MEDS: PERCOCET 5/325 PO PRN (21:27)
[2019-03-06] MEDS: HEPARIN SUB-Q SCH ×4 (05:29→21:46)
[2019-03-06] MEDS: D5NS 1,000 ML IV SCH ×2 (06:56→21:46)
[2019-03-06 07:48] LABS: Calcium 9.3 mg/dL (8.4-10.2)
--- NOTE | 2019-03-06 09:06 | Progress Note ---
Assessment and Plan Acute Renal Failure likely secondary to Prerenal Azotemia secondary to volume depletion from N/V and poor oral intake: -Renal labs reviewed. Serum creatinine trend down to 1.3 today from 2.1 yesterday. -Renal function continues to improve on IV hydration -Serum creatinine noted to be 1.04 on outside lab done on 01/31/19 -Reviewed Ct scan of Abdomen/Pelvis- Large cystic mass to upper pole of right kidney with concern for neoplasm noted. Dr. Freitas was consulted yesterday who ordered renal ultrasound. Renal ultrasound report is the same as Abdominal CT scan report. Await further recs. -Urine lytes reviewed -On NS@ 125 ml/hr -Strict I/O monitoring -Avoid Nephrotoxic agents -Renally dose medications -Will continue to monitor renal function closely Mild Hypokalemia: -KCL 10 meq IV x 1 today -BMP daily History of Hypertension: Hypotension: -Noted to be started today on home BP meds of Losartan 100 mg po daily and HCTZ 12.5 mg po daily, patient has not receive them yet -Patient's recent BP was 117/71 this morning -Will discontinue HCTZ and decrease Losartan dose to 25 mg po daily -Monitor blood pressures and renal function closely History of CVA with residual left-sided weakness -On Aspirin and Atorvastatin -PT/OT/Speech onboard -As per primary Subjective Date of service: 03/06/19 Principal diagnosis: acute renal failure, right renal mass, hypertension, dysphagia, old CVA Interval history: Patient seen lying in bed. Patient mumbles and moans incoherently. No family present at bedside. Objective - Vital Signs Vital signs: Vital Signs - 12hr 03/05/19 03/06/19 23:41 06:22 Temperature 98.2 F 98.3 F Pulse Rate 80 69 Respiratory 18 18 Rate Blood Pressure 133/70 109/71 O2 Sat by Pulse 96 96 Oximetry - General Appearance General appearance: well-developed, fatigue EENT: ATNC, PERRL Neck: no JVD, supple Respiratory: Present: Decreased Breath Sounds Cardiology: S1S2 Gastrointestinal: normoactive bowel sounds Integumentary: warm and dry Neurologic: other (left-sided weakness) Musculoskeletal: other (No edema) - Lab 03/04/19 Unknown 03/06/19 05:36 Most recent lab results Calcium 9.3 mg/dL (8.4-10.2) 03/06/19 05:36 Phosphorus 2.80 mg/dL (2.5-4.5) 03/05/19 05:35 Magnesium 3.90 mg/dL (1.7-2.3) H 03/05/19 05:35 82.7 mg/dL (0.1-20.0) H 03/05/19 09:11 59 mmol/L 03/05/19 09:11 27 mg/dL (5-11.8) H 03/05/19 09:11 Medications & Allergies - Medications Allergies/Adverse Reactions: Allergies No Known Allergies Allergy (Unverified 03/04/19 19:33) Home Medications: Home Medications Medication Instructions Recorded Confirmed Last Taken Type Aspirin [Aspirin BABY CHEW TAB] 81 mg PO DAILY 03/05/19 03/05/19 Unknown History Hyzaar 100-12.5 Tablet 50 mg PO DAILY 03/05/19 03/05/19 Unknown History Lipitor 20 mg PO DAILY 03/05/19 03/05/19 Unknown History NIFEdipine XL [Procardia Xl] 20 mg PO QDAY 03/05/19 03/05/19 Unknown History Active Medications: Generic Name Dose Route Start Last Admin Trade Name Freq PRN Reason Stop Dose Admin Acetaminophen 650 mg 03/05/19 01:21 Tylenol PO Q4H PRN Pain MILD(1-3)/Fever >100.5/[facility] Aspirin 325 mg 03/05/19 10:00 03/05/19 09:57 Aspirin PO 325 mg QDAY [facility] Administration Atorvastatin Calcium 40 mg 03/05/19 22:00 03/05/19 21:27 Lipitor PO 40 mg QHS [facility] Administration Docusate Sodium 100 mg 03/05/19 10:00 03/05/19 21:27 Colace PO 100 mg BID [facility] Administration Heparin Sodium (Porcine) 5,000 unit 03/05/19 06:00 03/06/19 05:29 Heparin SUB-Q Not Given Q8HR [facility] Hydrochlorothiazide 12.5 mg 03/06/19 10:00 Hctz PO QDAY [facility] Dextrose/Sodium Chloride 1,000 mls @ 125 mls/hr 03/05/19 13:00 03/06/19 06:56 D5ns IV 125 mls/hr DIRECT [facility] Administration Ceftriaxone Sodium 1 gm in 50 mls @ 100 mls/hr 03/05/19 18:00 03/05/19 18:41 Rocephin/Ns 1 Gm/50 Ml IV 100 mls/hr Q24HR [facility] Administration Protocol Losartan Potassium 100 mg 03/06/19 10:00 Cozaar PO QDAY [facility] Ondansetron HCl 4 mg 03/05/19 01:21 Zofran IV Q8H PRN Nausea And Vomiting Oxycodone/Acetaminophen 1 tab 03/05/19 01:21 03/05/19 21:27 Percocet 5/325 PO 1 tab Q6H PRN Administration Pain, Moderate (4-6) Sodium Chloride 10 ml 03/05/19 10:00 03/05/19 22:40 Sodium Chloride Flush Syringe 10 Ml IV 10 ml BID [facility] Administration Sodium Chloride 10 ml 03/05/19 01:21 Sodium Chloride Flush Syringe 10 Ml IV PRN PRN LINE FLUSH
[2019-03-06] MEDS ORDERED: KCL 10MEQ/100ML 10 MEQ/100 ML BAG IV ONE (09:40)
[2019-03-06] MEDS ORDERED: HCTZ PO SCH (10:00)
[2019-03-06] MEDS ORDERED: COZAAR PO SCH ×2 (10:00)
[2019-03-06] MEDS: ROCEPHIN/NS 1 GM/50 ML 1 GM/50 ML BAG IV SCH (10:16)
[2019-03-06] MEDS: SODIUM CHLORIDE FLUSH SYRINGE 10 ML IV SCH ×2 (10:17→21:46)
[2019-03-06 10:27] LABS: Basophils % (Auto) 0.8 % (0.0-1.8); Eosinophils # (Auto) 0.3 K/mm3 (0.0-0.4); Eosinophils % (Auto) 7.9 % (0.0-4.3); Hematocrit 36.5 % (30.3-42.9); Hemoglobin 12.4 gm/dl (10.1-14.3); Lymphocytes # (Auto) 1.8 K/mm3 (1.2-5.4); Lymphocytes % (Auto) 47.2 % (13.4-35.0); Mean Corpuscular HGB Conc 34 % (30-34); Mean Corpuscular Volume 93 fl (79-97); Monocytes # (Auto) 0.3 K/mm3 (0.0-0.8); Monocytes % (Auto) 8.9 % (0.0-7.3); Platelet Count 151 K/mm3 (140-440); Red Blood Count 3.93 M/mm3 (3.65-5.03); Red Cell Distribution Width 13.6 % (13.2-15.2)
[2019-03-06] MEDS: ASPIRIN PO SCH (11:29)
[2019-03-06] MEDS: COZAAR PO SCH (11:29)
[2019-03-06] MEDS: COLACE PO SCH ×2 (11:30→21:46)
--- NOTE | 2019-03-06 11:39 | Progress Note ---
Assessment and Plan ARF -On IV fluid, will monitor creatinine level -Nephrology consulted i and following New Right renal mass per CT abdomen/pelvis -Patient will need biopsy - Bilateral nonobstructing renal calculi Nephrology environmental remediation consultant - UTI Obtain urine culture Commence IV antibiotics Hypokalemia -Repleted cautiously b/c LIZBETH - Dysphagia Speech to evalute swallowing History of recent CVA with residual left-sided weakness -Continue aspirin and statin -PT/OT/ST consulted Possible dysphagia -Speech therapy consulted Hyperlipidemia -On statin Hypertension -Controlled DVT prophylaxis with heparin Subjective Date of service: 03/06/19 Principal diagnosis: acute renal failure, right renal mass, hypertension, dysphagia, old CVA Interval history: Patient sitting up in bed drooling. Family members in the room stated that she is unable to swallow since after her stroke in January 2019. Denies any fever. No chest pain. Objective - Exam Narrative Exam: Constitutional: Ill looking. In no distress Head: Normocephalic atraumatic Eyes: Pupils are equal round and reactive to light Nose: No enlarged turbinates, no septal deviation. Mouth: Moist mucous membranes. Neck: Supple no thyromegaly. No bruit. No JVD Heart: Regular rate and rhythm, S1-S2 normal. No rubs murmurs or gallop Lungs: Clear to auscultation bilaterally. no rales or rhonchi Abdomen: Soft, nontender. Bowel sound are present. Extremities: No edema, no cyanosis, no clubbing. Neuro: Alert oriented Oriented x2. Left hemiparesis. Skin: No rashes or hyperpigmented spots Musculoskeletal system: No joint pain or swelling Hematological: No petechia or subcutanous hemorrhages. Immunological: No multiple septic spots on the skin Lymphatic: No generalized lymphadenopathy Psychiatry: Euthymic. Calm. - Constitutional Vitals: Vital Signs - 12hr 03/05/19 03/06/19 03/06/19 23:41 06:22 11:29 Temperature 98.2 F 98.3 F Pulse Rate 80 69 81 Respiratory 18 18 Rate Blood Pressure 133/70 109/71 125/71 O2 Sat by Pulse 96 96 Oximetry - Labs CBC & Chem 7: 03/06/19 09:57 03/06/19 05:36 Labs: Abnormal lab results 03/05/19 03/06/19 03/06/19 Range/Units 09:11 05:36 09:57 WBC (4.5-11.0) K/mm3 Lymph % (Auto) (13.4-35.0) % Stewart % (Auto) (0.0-7.3) % Eos % (Auto) (0.0-4.3) % Seg Neutrophils % (40.0-70.0) % Seg Neutrophils # (1.8-7.7) K/mm3 Potassium 3.4 L (3.6-5.0) mmol/L BUN 33 H (7-17) mg/dL Creatinine 1.3 H (0.7-1.2) mg/dL Glucose 104 H (65-100) mg/dL Phosphorus 1.80 L D (2.5-4.5) mg/dL Urine Creatinine 82.7 H (0.1-20.0) mg/dL Urine Total Protein 27 H (5-11.8) mg/dL 03/06/19 Range/Units 09:57 WBC 3.8 L (4.5-11.0) K/mm3 Lymph % (Auto) 47.2 H (13.4-35.0) % Stewart % (Auto) 8.9 H (0.0-7.3) % Eos % (Auto) 7.9 H (0.0-4.3) % Seg Neutrophils % 35.2 L (40.0-70.0) % Seg Neutrophils # 1.3 L (1.8-7.7) K/mm3 Potassium (3.6-5.0) mmol/L BUN (7-17) mg/dL Creatinine (0.7-1.2) mg/dL Glucose (65-100) mg/dL Phosphorus (2.5-4.5) mg/dL Urine Creatinine (0.1-20.0) mg/dL Urine Total Protein (5-11.8) mg/dL
[2019-03-07] MEDS: D5NS 1,000 ML IV SCH (05:26)
[2019-03-07] MEDS: HEPARIN SUB-Q SCH ×3 (05:26→22:25)
[2019-03-07 06:13] LABS: Basophils % (Auto) 0.8 % (0.0-1.8); Eosinophils # (Auto) 0.3 K/mm3 (0.0-0.4); Eosinophils % (Auto) 7.6 % (0.0-4.3); Hematocrit 35.7 % (30.3-42.9); Lymphocytes # (Auto) 1.9 K/mm3 (1.2-5.4); Lymphocytes % (Auto) 44.6 % (13.4-35.0); Mean Corpuscular HGB Conc 34 % (30-34); Mean Corpuscular Volume 94 fl (79-97); Monocytes # (Auto) 0.4 K/mm3 (0.0-0.8); Platelet Count 155 K/mm3 (140-440); Red Blood Count 3.82 M/mm3 (3.65-5.03); Red Cell Distribution Width 13.9 % (13.2-15.2)
[2019-03-07 07:09] LABS: Alanine Aminotransferase 18 units/L (7-56); Albumin 3.1 g/dL (3.9-5); BUN/Creatinine Ratio 15; Blood Urea Nitrogen 16 mg/dL (7-17); Calcium 9.3 mg/dL (8.4-10.2); Hemolysis Index 33
--- NOTE | 2019-03-07 08:49 | Progress Note ---
Subjective Date of service: 03/07/19 Principal diagnosis: acute renal failure, right renal mass, hypertension, dysphagia, old CVA Interval history: new pt to our service 63-year-old female with a past medical history CVA with residual dysarthria, left-sided facial droop, left-sided arm and leg weakness, hypertension, elevated cholesterol to the hospital complaining of nausea and poor by mouth tolerance for the past 4 days. Patient states that the smell of food makes her nauseated and therefore she has not been eating. She has been drinking lots of water. She denies headache, chest pain, abdominal pain, diarrhea, dysuria, or fever. She is visiting here from [place]. She denies a known history of renal insufficiency and states she is compliant with her medication. She denies pr evious abdominal surgeries nurse Natividad at the bedside Pt keeps saying she wants to go home pt without complaints abd soft Ct scan of Abdomen/Pelvis(no contrast) - 4cm cystic mass to upper pole pf right kidney + kidney stones bilat---largest 9mm, + gall stones Renal US - 5cm cystic/solid rt renal tan A/P rt renal mass + kidney stones + gall stones IR to eval for possible bx, cryo, etc Objective - Constitutional Vitals: Vital Signs - 12hr 03/06/19 03/07/19 23:26 05:34 Temperature 98.1 F Pulse Rate 72 77 Respiratory 20 20 Rate Blood Pressure 132/80 142/88 O2 Sat by Pulse 100 99 Oximetry - Labs CBC & Chem 7: 03/07/19 05:39 03/07/19 05:39 Labs: Abnormal lab results 03/06/19 03/06/19 03/07/19 Range/Units 09:57 09:57 05:39 WBC 3.8 L (4.5-11.0) K/mm3 Lymph % (Auto) 47.2 H (13.4-35.0) % Branch % (Auto) 8.9 H (0.0-7.3) % Eos % (Auto) 7.9 H (0.0-4.3) % Seg Neutrophils % 35.2 L (40.0-70.0) % Seg Neutrophils # 1.3 L (1.8-7.7) K/mm3 Potassium 3.4 L (3.6-5.0) mmol/L Chloride 109.7 H (98-107) mmol/L Glucose 114 H (65-100) mg/dL Phosphorus 1.80 L D (2.5-4.5) mg/dL Total Protein 5.5 L D (6.3-8.2) g/dL Albumin 3.1 L (3.9-5) g/dL 03/07/19 Range/Units 05:39 WBC 4.3 L (4.5-11.0) K/mm3 Lymph % (Auto) 44.6 H (13.4-35.0) % Branch % (Auto) 10.0 H (0.0-7.3) % Eos % (Auto) 7.6 H (0.0-4.3) % Seg Neutrophils % 37.0 L (40.0-70.0) % Seg Neutrophils # 1.6 L (1.8-7.7) K/mm3 Potassium (3.6-5.0) mmol/L Chloride (98-107) mmol/L Glucose (65-100) mg/dL Phosphorus (2.5-4.5) mg/dL Total Protein (6.3-8.2) g/dL Albumin (3.9-5) g/dL Medications & Allergies - Medications Allergies/Adverse Reactions: Allergies No Known Allergies Allergy (Unverified 03/04/19 19:33) Home Medications: Home Medications Medication Instructions Recorded Confirmed Last Taken Type Aspirin [Aspirin BABY CHEW TAB] 81 mg PO DAILY 03/05/19 03/05/19 Unknown History Hyzaar 100-12.5 Tablet 50 mg PO DAILY 03/05/19 03/05/19 Unknown History Lipitor 20 mg PO DAILY 03/05/19 03/05/19 Unknown History NIFEdipine XL [Procardia Xl] 20 mg PO QDAY 03/05/19 03/05/19 Unknown History Active Medications: Generic Name Dose Route Start Last Admin Trade Name Freq PRN Reason Stop Dose Admin Acetaminophen 650 mg 03/05/19 01:21 Tylenol PO Q4H PRN Pain MILD(1-3)/Fever >100.5/DICKINSON Aspirin 325 mg 03/05/19 10:00 03/06/19 11:29 Aspirin PO 325 mg QDAY [facility]OR Administration Atorvastatin Calcium 40 mg 03/05/19 22:00 03/06/19 21:46 Lipitor PO 40 mg QHS MINOR Administration Docusate Sodium 100 mg 03/05/19 10:00 03/06/19 21:46 Colace PO 100 mg BID MINOR Administration Heparin Sodium (Porcine) 5,000 unit 03/05/19 06:00 03/07/19 05:26 Heparin SUB-Q 5,000 unit Q8HR MINOR Administration Dextrose/Sodium Chloride 1,000 mls @ 125 mls/hr 03/05/19 13:00 03/07/19 05:26 D5ns IV 125 mls/hr DIRECT MINOR Administration Ceftriaxone Sodium 1 gm in 50 mls @ 100 mls/hr 03/05/19 18:00 03/06/19 10:16 Rocephin/Ns 1 Gm/50 Ml IV 100 mls/hr Q24HR MINOR Administration Protocol Losartan Potassium 25 mg 03/06/19 10:00 03/06/19 11:29 Cozaar PO 25 mg QDAY [facility]OR Administration Ondansetron HCl 4 mg 03/05/19 01:21 Zofran IV Q8H PRN Nausea And Vomiting Oxycodone/Acetaminophen 1 tab 03/05/19 01:21 03/05/19 21:27 Percocet 5/325 PO 1 tab Q6H PRN Administration Pain, Moderate (4-6) Sodium Chloride 10 ml 03/05/19 10:00 03/06/19 21:46 Sodium Chloride Flush Syringe 10 Ml IV 10 ml BID MINOR Administration Sodium Chloride 10 ml 03/05/19 01:21 Sodium Chloride Flush Syringe 10 Ml IV PRN PRN LINE FLUSH
[2019-03-07] MEDS: ROCEPHIN/NS 1 GM/50 ML 1 GM/50 ML BAG IV SCH (10:18)
[2019-03-07] MEDS: PERCOCET 5/325 PO PRN (10:18)
[2019-03-07] MEDS: COZAAR PO SCH (10:19)
[2019-03-07] MEDS: SODIUM CHLORIDE FLUSH SYRINGE 10 ML IV SCH (10:19)
[2019-03-07] MEDS: COLACE PO SCH ×2 (10:19→22:25)
[2019-03-07] MEDS: ASPIRIN PO SCH (10:19)
--- NOTE | 2019-03-07 11:44 | Progress Note ---
Assessment and Plan Acute Renal Failure likely secondary to Prerenal Azotemia secondary to volume depletion from N/V and poor oral intake: -Renal labs reviewed. Serum creatinine trend down to 1.1 today from 1.3 yesterday. -Renal function continues to improve on IV hydration -Serum creatinine noted to be 1.04 on outside lab done on 01/31/19 -Reviewed Ct scan of Abdomen/Pelvis- Large cystic mass to upper pole of right kidney with concern for neoplasm noted. Dr. Freitas onboard -Urine lytes reviewed -On NS@ 125 ml/hr, will D/C IVF -Strict I/O monitoring -Avoid Nephrotoxic agents -Renally dose medications -Will continue to monitor renal function closely Mild Hypokalemia: -Start KCl 20 meq po daily -BMP daily History of Hypertension: S/P Hypotension: -On Losartan 25 mg po daily -Monitor blood pressures History of CVA with residual left-sided weakness -On Aspirin and Atorvastatin -PT/OT/Speech onboard -As per primary Subjective Date of service: 03/07/19 Principal diagnosis: acute renal failure, right renal mass, hypertension, dysphagia, old CVA Interval history: Patient seen sitting up at edge of bed with physical therapy. States feeling better but concerned about renal mass. No family at bedside. Objective - Vital Signs Vital signs: Vital Signs - 12hr 03/07/19 03/07/19 03/07/19 05:34 10:18 10:19 Pulse Rate 77 77 Respiratory 20 20 Rate Blood Pressure 142/88 O2 Sat by Pulse 99 Oximetry - General Appearance General appearance: well-developed, well-nourished, fatigue EENT: ATNC, PERRL, hearing intact, vision intact Neck: no JVD, supple Respiratory: Present: Clear to Ascultation Cardiology: S1S2 Gastrointestinal: normoactive bowel sounds Integumentary: warm and dry Neurologic: alert and oriented x3 Musculoskeletal: other (No edema. Left-side weakness) Psychiatric: cooperative - Lab 03/07/19 05:39 03/07/19 05:39 Most recent lab results Calcium 9.3 mg/dL (8.4-10.2) 03/07/19 05:39 Phosphorus 1.80 mg/dL (2.5-4.5) L D 03/06/19 09:57 Magnesium 3.90 mg/dL (1.7-2.3) H 03/05/19 05:35 82.7 mg/dL (0.1-20.0) H 03/05/19 09:11 59 mmol/L 03/05/19 09:11 27 mg/dL (5-11.8) H 03/05/19 09:11 Medications & Allergies - Medications Allergies/Adverse Reactions: Allergies No Known Allergies Allergy (Unverified 03/04/19 19:33) Home Medications: Home Medications Medication Instructions Recorded Confirmed Last Taken Type Aspirin [Aspirin BABY CHEW TAB] 81 mg PO DAILY 03/05/19 03/05/19 Unknown History Hyzaar 100-12.5 Tablet 50 mg PO DAILY 03/05/19 03/05/19 Unknown History Lipitor 20 mg PO DAILY 03/05/19 03/05/19 Unknown History NIFEdipine XL [Procardia Xl] 20 mg PO QDAY 03/05/19 03/05/19 Unknown History Active Medications: Generic Name Dose Route Start Last Admin Trade Name Freq PRN Reason Stop Dose Admin Acetaminophen 650 mg 03/05/19 01:21 Tylenol PO Q4H PRN Pain MILD(1-3)/Fever >100.5/DICKINSON Aspirin 325 mg 03/05/19 10:00 03/07/19 10:19 Aspirin PO 325 mg QDAY [facility]OR Administration Atorvastatin Calcium 40 mg 03/05/19 22:00 03/06/19 21:46 Lipitor PO 40 mg QHS MINOR Administration Docusate Sodium 100 mg 03/05/19 10:00 03/07/19 10:19 Colace PO 100 mg BID MINOR Administration Heparin Sodium (Porcine) 5,000 unit 03/05/19 06:00 03/07/19 05:26 Heparin SUB-Q 5,000 unit Q8HR MINOR Administration Dextrose/Sodium Chloride 1,000 mls @ 125 mls/hr 03/05/19 13:00 03/07/19 05:26 D5ns IV 125 mls/hr DIRECT MINOR Administration Ceftriaxone Sodium 1 gm in 50 mls @ 100 mls/hr 03/05/19 18:00 03/07/19 10:18 Rocephin/Ns 1 Gm/50 Ml IV 100 mls/hr Q24HR MINOR Administration Protocol Losartan Potassium 25 mg 03/06/19 10:00 03/07/19 10:19 Cozaar PO 25 mg QDAY MINOR Administration Ondansetron HCl 4 mg 03/05/19 01:21 Zofran IV Q8H PRN Nausea And Vomiting Oxycodone/Acetaminophen 1 tab 03/05/19 01:21 03/07/19 10:18 Percocet 5/325 PO 1 tab Q6H PRN Administration Pain, Moderate (4-6) Sodium Chloride 10 ml 03/05/19 10:00 03/07/19 10:19 Sodium Chloride Flush Syringe 10 Ml IV 10 ml BID MINOR Administration Sodium Chloride 10 ml 03/05/19 01:21 Sodium Chloride Flush Syringe 10 Ml IV PRN PRN LINE FLUSH
[2019-03-07] MEDS: K-DUR PO SCH (13:31)
--- NOTE | 2019-03-07 14:15 | Progress Note ---
Assessment and Plan ARF/vasomotor nephropathy -improved with iv fluid, likely from poor oral intake and dehydration -Nephrology consulted and following New Right renal mass per CT abdomen/pelvis -Patient will need biopsy, consulted IR - recommended MRI abdomen w/wo contrast - ordered - Bilateral nonobstructing renal calculi Urology following, cont iv fluid - UTI Obtained urine culture Commence IV antibiotics Hypokalemia -Repleted cautiously b/c LIZBETH HTN, hold losartan, start amlodipine History of recent CVA with residual left-sided weakness -Continue aspirin and statin -PT/OT/ST consulted Possible dysphagia -Speech therapy consulted - recommended mechanical soft with thin liquid Hyperlipidemia -On statin Hypertension -Controlled DVT prophylaxis with heparin Brief history: Patient is a 63 year old female with history of recent CVA (2 weeks ago) and hypertension who presented to the ED on account of poor oral intake. She c/o difficulty swallowing and generalized weakness. In the ER she noted elevated Cr and right renal mass. CT abdomen/pelvis: Large cystic mass upper pole of the right kidney highly con cerning for neoplasm Multiple bilateral nonobstructing renal calculi Cholelithiasis multiple small stones in the gallbladder Objective Constitutional: Ill looking. In no distress Head: Normocephalic atraumatic Eyes: Pupils are equal round and reactive to light Nose: No enlarged turbinates, no septal deviation. Mouth: Moist mucous membranes. Neck: Supple no thyromegaly. No bruit. No JVD Heart: Regular rate and rhythm, S1-S2 normal. No rubs murmurs or gallop Lungs: Clear to auscultation bilaterally. no rales or rhonchi Abdomen: Soft, nontender. Bowel sound are present. Extremities: No edema, no cyanosis, no clubbing. Neuro: Alert oriented Oriented x2. Left hemiparesis. Skin: No rashes or hyperpigmented spots Musculoskeletal system: No joint pain or swelling Psychiatry: Euthymic. Calm. Subjective Date of service: 03/07/19 Principal diagnosis: acute renal failure, right renal mass, hypertension, dysphagia, old CVA Objective - Constitutional Vitals: Vital Signs - 12hr 03/07/19 03/07/19 03/07/19 05:34 10:00 10:18 Pulse Rate 77 Respiratory 20 20 Rate Blood Pressure 142/88 O2 Sat by Pulse 99 100 Oximetry 03/07/19 10:19 Pulse Rate 77 Respiratory Rate Blood Pressure O2 Sat by Pulse Oximetry - Labs CBC & Chem 7: 03/07/19 05:39 03/07/19 05:39 Labs: Abnormal lab results 03/07/19 03/07/19 Range/Units 05:39 05:39 WBC 4.3 L (4.5-11.0) K/mm3 Lymph % (Auto) 44.6 H (13.4-35.0) % Boyd % (Auto) 10.0 H (0.0-7.3) % Eos % (Auto) 7.6 H (0.0-4.3) % Seg Neutrophils % 37.0 L (40.0-70.0) % Seg Neutrophils # 1.6 L (1.8-7.7) K/mm3 Potassium 3.4 L (3.6-5.0) mmol/L Chloride 109.7 H (98-107) mmol/L Glucose 114 H (65-100) mg/dL Total Protein 5.5 L D (6.3-8.2) g/dL Albumin 3.1 L (3.9-5) g/dL
--- NOTE | 2019-03-07 16:00 | Consultation ---
History of Present Illness - Reason for Consult Consult date: 03/07/19 Solid and cystic renal mass - History of Present Illness Patient is a 63 year old female with history of recent CVA (2 weeks ago) and hypertension who presented to the ED on account of poor oral intake. She has associated difficulty swallowing and generalized weakness. She denies weight loss, nausea, vomiting, abdominal pain, fever, chills, cough, chest pain, shortness of breath, palpitation, headaches, dizziness, syncope or loss of consciousness. During her admission, she was found to have acute renal failure which has subsequently resolved. She is also found to have an incidentally noted right renal mass. Past History Past Medical History: hypertension, hyperlipidemia, stroke (with residual left sided deficit and memory loss) Past Surgical History: No surgical history Social history: smoking (patient is an ex-smoker of unknown years. She denies alcohol or illicit drug use) Family history: other (unable to obtain due to memory loss) Medications and Allergies Allergies Allergy/AdvReac Type Severity Reaction Status Date / Time No Known Allergies Allergy Unverified 03/04/19 19:33 Home Medications Medication Instructions Recorded Confirmed Last Taken Type Aspirin [Aspirin BABY CHEW TAB] 81 mg PO DAILY 03/05/19 03/05/19 Unknown History Hyzaar 100-12.5 Tablet 50 mg PO DAILY 03/05/19 03/05/19 Unknown History Lipitor 20 mg PO DAILY 03/05/19 03/05/19 Unknown History NIFEdipine XL [Procardia Xl] 20 mg PO QDAY 03/05/19 03/05/19 Unknown History Active Meds: Active Medications Acetaminophen (Tylenol) 650 mg PO Q4H PRN PRN Reason: Pain MILD(1-3)/Fever >100.5/DICKINSON Aspirin (Aspirin) 325 mg PO QDAY [facility] Last Admin: 03/07/19 10:19 Dose: 325 mg Documented by: Atorvastatin Calcium (Lipitor) 40 mg PO QHS [facility] Last Admin: 03/06/19 21:46 Dose: 40 mg Documented by: Docusate Sodium (Colace) 100 mg PO BID [facility] Last Admin: 03/07/19 10:19 Dose: 100 mg Documented by: Heparin Sodium (Porcine) (Heparin) 5,000 unit SUB-Q Q8HR [facility] Last Admin: 03/07/19 13:31 Dose: 5,000 unit Documented by: Ceftriaxone Sodium (Rocephin/Ns 1 Gm/50 Ml) 1 gm in 50 mls @ 100 mls/hr IV Q24HR [facility]; Protocol Last Admin: 03/07/19 10:18 Dose: 100 mls/hr Documented by: Losartan Potassium (Cozaar) 25 mg PO QDAY [facility] Last Admin: 03/07/19 10:19 Dose: 25 mg Documented by: Ondansetron HCl (Zofran) 4 mg IV Q8H PRN PRN Reason: Nausea And Vomiting Oxycodone/Acetaminophen (Percocet 5/325) 1 tab PO Q6H PRN PRN Reason: Pain, Moderate (4-6) Last Admin: 03/07/19 10:18 Dose: 1 tab Documented by: Potassium Chloride (K-Dur) 20 meq PO QDAY [facility] Last Admin: 03/07/19 13:31 Dose: 20 meq Documented by: Sodium Chloride (Sodium Chloride Flush Syringe 10 Ml) 10 ml IV BID [facility] Last Admin: 03/07/19 10:19 Dose: 10 ml Documented by: Sodium Chloride (Sodium Chloride Flush Syringe 10 Ml) 10 ml IV PRN PRN PRN Reason: LINE FLUSH Review of Systems All systems: negative (see HPI) Exam - Constitutional Vitals: Temp Pulse Resp BP Pulse Ox 98.1 F 77 20 142/88 100 03/06/19 23:26 03/07/19 10:19 03/07/19 10:18 03/07/19 05:34 03/07/19 10:00 General appearance: Present: no acute distress - EENT ENT: hearing intact - Respiratory Respiratory effort: normal - Extremities Extremities: pulses intact, normal temperature, normal color, abnormal (left sided deficits) - Abdominal General gastrointestinal: Present: soft - Psychiatric Psychiatric: appropriate mood/affect, cooperative Results - Labs CBC & Chem 7: 03/07/19 05:39 03/07/19 05:39 Labs: Abnormal lab results 03/07/19 03/07/19 Range/Units 05:39 05:39 WBC 4.3 L (4.5-11.0) K/mm3 Lymph % (Auto) 44.6 H (13.4-35.0) % [place] % (Auto) 10.0 H (0.0-7.3) % Eos % (Auto) 7.6 H (0.0-4.3) % Seg Neutrophils % 37.0 L (40.0-70.0) % Seg Neutrophils # 1.6 L (1.8-7.7) K/mm3 Potassium 3.4 L (3.6-5.0) mmol/L Chloride 109.7 H (98-107) mmol/L Glucose 114 H (65-100) mg/dL Total Protein 5.5 L D (6.3-8.2) g/dL Albumin 3.1 L (3.9-5) g/dL Assessment and Plan 63-year-old female with recent CVA who recently presented to the hospital with acute renal failure which has resolved who now had an incidental finding of a right sided renal mass. Vascular/interventional radiology consult. Patient needs cross-sectional imaging. Given recent renal failure, recommend MRI of the abdomen and pelvis with and without contrast using renal mass protocol. Unfortunately, due to the size and the numerous abutting structures noted on CT (gallbladder, duodenum, adrenal gland, liver), this is not a percutaneous cryoablation candidate. MRI will probably better document the lesion. If there is a solid nodular component, then the risk of renal cell carcinoma is quite high (greater than 90-95%).
[2019-03-08] MEDS: SODIUM CHLORIDE FLUSH SYRINGE 10 ML IV SCH ×3 (01:24→22:46)
[2019-03-08] MEDS ORDERED: NACL 0.9% 1000 ML 1,000 ML IV SCH (02:00)
[2019-03-08 06:10] LABS: Hematocrit 36.1 % (30.3-42.9); Mean Corpuscular HGB Conc 33 % (30-34); Mean Corpuscular Volume 94 fl (79-97); Platelet Count 143 K/mm3 (140-440); Red Blood Count 3.84 M/mm3 (3.65-5.03); Red Cell Distribution Width 13.9 % (13.2-15.2)
[2019-03-08] MEDS: HEPARIN SUB-Q SCH ×3 (06:20→22:44)
[2019-03-08 06:39] LABS: Alanine Aminotransferase 17 units/L (7-56); Albumin 2.9 g/dL (3.9-5); BUN/Creatinine Ratio 9; Blood Urea Nitrogen 9 mg/dL (7-17); Calcium 9.8 mg/dL (8.4-10.2); Hemolysis Index 12
[2019-03-08 08:50] LABS: Basophils % (Manual) 0 % (0.0-1.8); Total Cells Counted 100
[2019-03-08 08:51] LABS: Platelet Estimate Consistent w Auto; RBC Morphology Normal
--- NOTE | 2019-03-08 10:22 | Progress Note ---
Assessment and Plan Acute Renal Failure likely secondary to Prerenal Azotemia secondary to volume depletion from N/V and poor oral intake: -Renal labs reviewed. Cr trending down. -Renal function continues to improve on IV hydration -Serum creatinine noted to be 1.04 on outside lab done on 01/31/19 -Reviewed Ct scan of Abdomen/Pelvis- Large cystic mass to upper pole of right kidney with concern for neoplasm noted. Dr. Freitas onboard -Urine lytes reviewed -On NS@ 125 ml/hr, will D/C IVF -Strict I/O monitoring -Avoid Nephrotoxic agents -Renally dose medications -Will continue to monitor renal function closely Hypokalemia: -Started KCl 20 meq po daily -Replace PRN -Check Mg -BMP daily History of Hypertension: S/P Hypotension: -On Losartan 25 mg po daily -Monitor blood pressures History of CVA with residual left-sided weakness -On Aspirin and Atorvastatin -PT/OT/Speech onboard -As per primary Subjective Date of service: 03/08/19 Principal diagnosis: acute renal failure, right renal mass, hypertension, dysphagia, old CVA Interval history: Making urine. Objective - Exam Narrative Exam: General appearance: well-developed, well-nourished, fatigue EENT: ATNC, PERRL, hearing intact, vision intact Neck: no JVD, supple Respiratory: Present: Clear to Ascultation Cardiology: S1S2 Gastrointestinal: normoactive bowel sounds Integumentary: warm and dry Neurologic: alert and oriented x3 Musculoskeletal: other (No edema. Left-side weakness) Psychiatric: cooperative - Vital Signs Vital signs: Vital Signs - 12hr 03/07/19 03/08/19 23:09 04:53 Temperature 98.9 F 98.9 F Pulse Rate 71 Respiratory 24 20 Rate Blood Pressure 130/70 140/84 O2 Sat by Pulse 97 Oximetry - Lab 03/08/19 05:32 03/08/19 05:32 Most recent lab results Calcium 9.8 mg/dL (8.4-10.2) 03/08/19 05:32 Phosphorus 1.80 mg/dL (2.5-4.5) L D 03/06/19 09:57 Magnesium 3.90 mg/dL (1.7-2.3) H 03/05/19 05:35 82.7 mg/dL (0.1-20.0) H 03/05/19 09:11 59 mmol/L 03/05/19 09:11 27 mg/dL (5-11.8) H 03/05/19 09:11 Medications & Allergies - Medications Allergies/Adverse Reactions: Allergies No Known Allergies Allergy (Unverified 03/04/19 19:33) Home Medications: Home Medications Medication Instructions Recorded Confirmed Last Taken Type Aspirin [Aspirin BABY CHEW TAB] 81 mg PO DAILY 03/05/19 03/05/19 Unknown History Hyzaar 100-12.5 Tablet 50 mg PO DAILY 03/05/19 03/05/19 Unknown History Lipitor 20 mg PO DAILY 03/05/19 03/05/19 Unknown History NIFEdipine XL [Procardia Xl] 20 mg PO QDAY 03/05/19 03/05/19 Unknown History Active Medications: Generic Name Dose Route Start Last Admin Trade Name Freq PRN Reason Stop Dose Admin Acetaminophen 650 mg 03/05/19 01:21 Tylenol PO Q4H PRN Pain MILD(1-3)/Fever >100.5/DICKINSON Amlodipine Besylate 5 mg 03/08/19 10:00 Norvasc PO QDAY [facility] Aspirin 325 mg 03/05/19 10:00 03/07/19 10:19 Aspirin PO 325 mg QDAY [facility] Administration Atorvastatin Calcium 40 mg 03/05/19 22:00 03/07/19 22:25 Lipitor PO 40 mg QHS [facility]OR Administration Docusate Sodium 100 mg 03/05/19 10:00 03/07/19 22:25 Colace PO 100 mg BID [facility]OR Administration Heparin Sodium (Porcine) 5,000 unit 03/05/19 06:00 03/08/19 06:20 Heparin SUB-Q 5,000 unit Q8HR [facility]OR Administration Ceftriaxone Sodium 1 gm in 50 mls @ 100 mls/hr 03/05/19 18:00 03/07/19 10:18 Rocephin/Ns 1 Gm/50 Ml IV 100 mls/hr Q24HR [facility] Administration Protocol Sodium Chloride 1,000 mls @ 100 mls/hr 03/08/19 02:00 Nacl 0.9% 1000 Ml IV DIRECT MINOR Ondansetron HCl 4 mg 03/05/19 01:21 Zofran IV Q8H PRN Nausea And Vomiting Oxycodone/Acetaminophen 1 tab 03/05/19 01:21 03/07/19 10:18 Percocet 5/325 PO 1 tab Q6H PRN Administration Pain, Moderate (4-6) Potassium Chloride 20 meq 03/07/19 12:00 03/07/19 13:31 K-Dur PO 20 meq QDAY MINOR Administration Potassium Chloride 40 meq 03/08/19 09:00 K-Dur PO 03/08/19 13:01 Q4H MINOR Sodium Chloride 10 ml 03/05/19 10:00 03/08/19 01:24 Sodium Chloride Flush Syringe 10 Ml IV Not Given BID [facility]OR Sodium Chloride 10 ml 03/05/19 01:21 Sodium Chloride Flush Syringe 10 Ml IV PRN PRN LINE FLUSH
[2019-03-08] MEDS: ROCEPHIN/NS 1 GM/50 ML 1 GM/50 ML BAG IV SCH (10:45)
[2019-03-08] MEDS: K-DUR PO SCH ×3 (10:50→15:13)
[2019-03-08] MEDS: COLACE PO SCH ×2 (10:51→22:47)
[2019-03-08] MEDS: ASPIRIN PO SCH (10:51)
[2019-03-08] MEDS: NORVASC PO SCH (10:52)
[2019-03-08] MEDS ORDERED: K-DUR PO ONE (13:57)
[2019-03-08] MEDS ORDERED: MAGNESIUM SULFATE 2GM/50ML 2 GM/50 ML BAG IV ONE (13:57)
--- NOTE | 2019-03-08 14:10 | Progress Note ---
Assessment and Plan Assessment and plan: Patient is a 63 year old woman with a history of recent CVA (2 weeks ago) and hypertension who presented to the ED with poor oral intake. She c/o difficulty swallowing and generalized weakness. In the ER she noted elevated Cr and right renal mass. 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 Severe hypokalemia: replete and recheck in am ARF/vasomotor nephropathy and ATN, poa: improved with iv fluid, likely from poor oral intake and dehydration, Nephrology consulted and following Bilateral nonobstructing renal calculi Urology following, cont iv fluid UTI, urine culture negative, stop IV antibiotics HTN, hold losartan, started amlodipine History of recent CVA with residual left-sided weakness, -Continue aspirin and statin, -PT/OT/ST consulted Possible dysphagia -Speech therapy consulted - recommended mechanical soft with thin liquid Hyperlipidemia-On statin DVT prophylaxis with heparin History Interval history: Patient was seen and examined. Follow-up on current diagnosis Renal mass. No ov ernight events reported to me. Patient denies any chest pain, shortness breath, nausea/vomiting or severe headaches. Imaging, nursing note, chart, labs and old chart reviewed. Discussed with patient. Hospitalist Physical - Physical exam Narrative exam: Gen: WDWN, NAD, Awake, Alert, Orientated HEENT: NCAT, EOMI, PERRL, OP Clear Neck: supple, no adenopathy, no thyromegaly, no JVD CVS/Heart: RRR, normal S1S2, pulses present bilaterally Chest/Lungs: CTA B, Symmetrical chest exddfpansion, good air entry bilaterally GI/Abdomen: soft, NTND, good bowel sounds, no guarding or rebound /Bladder: no suprapubic tenderness, no CVA or paraspinal tenderness Extermity/Skin: no c/c/e, no obvious rash MSK: FROM x 4 Neuro: CN 2-12 grossly intact, no new focal deficits Psych: calm - Constitutional Vitals: Temp Pulse Resp BP Pulse Ox 97.8 F 71 20 116/65 97 03/08/19 12:52 03/08/19 12:52 03/08/19 12:52 03/08/19 12:52 03/08/19 12:52 General appearance: Present: no acute distress Results - Labs CBC & Chem 7: 03/08/19 05:32 03/08/19 05:32 Labs: Laboratory Last Values WBC 4.5 K/mm3 (4.5-11.0) 03/08/19 05:32 RBC 3.84 M/mm3 (3.65-5.03) 03/08/19 05:32 Hgb 12.0 gm/dl (10.1-14.3) 03/08/19 05:32 Hct 36.1 % (30.3-42.9) 03/08/19 05:32 MCV 94 fl (79-97) 03/08/19 05:32 MCH 31 pg (28-32) 03/08/19 05:32 MCHC 33 % (30-34) 03/08/19 05:32 RDW 13.9 % (13.2-15.2) 03/08/19 05:32 Plt Count 143 K/mm3 (140-440) 03/08/19 05:32 Lymph % (Auto) 44.6 % (13.4-35.0) H 03/07/19 05:39 Waldo % (Auto) 10.0 % (0.0-7.3) H 03/07/19 05:39 Eos % (Auto) 7.6 % (0.0-4.3) H 03/07/19 05:39 Baso % (Auto) 0.8 % (0.0-1.8) 03/07/19 05:39 Lymph # 1.9 K/mm3 (1.2-5.4) 03/07/19 05:39 Waldo # 0.4 K/mm3 (0.0-0.8) 03/07/19 05:39 Eos # 0.3 K/mm3 (0.0-0.4) 03/07/19 05:39 Baso # 0.0 K/mm3 (0.0-0.1) 03/07/19 05:39 Add Manual Diff Complete 03/08/19 05:32 Total Counted 100 03/08/19 05:32 Seg Neutrophils % Pattern Grader Supervisor 03/08/19 05:32 Seg Neuts % (Manual) 33.0 % (40.0-70.0) L 03/08/19 05:32 0 % 03/08/19 05:32 56.0 % (13.4-35.0) H 03/08/19 05:32 Reactive Lymphs % (Man) 1.0 % 03/08/19 05:32 5.0 % (0.0-7.3) 03/08/19 05:32 5.0 % (0.0-4.3) H 03/08/19 05:32 0 % (0.0-1.8) 03/08/19 05:32 0 % 03/08/19 05:32 0 % 03/08/19 05:32 0 % 03/08/19 05:32 0 % 03/08/19 05:32 Nucleated RBC % Not Reportable 03/08/19 05:32 Seg Neutrophils # 1.6 K/mm3 (1.8-7.7) L 03/07/19 05:39 Seg Neutrophils # Man 1.5 K/mm3 (1.8-7.7) L 03/08/19 05:32 Band Neutrophils # 0.0 K/mm3 03/08/19 05:32 2.5 K/mm3 (1.2-5.4) 03/08/19 05:32 Abs React Lymphs (Man) 0.0 K/mm3 03/08/19 05:32 0.2 K/mm3 (0.0-0.8) 03/08/19 05:32 0.2 K/mm3 (0.0-0.4) 03/08/19 05:32 0.0 K/mm3 (0.0-0.1) 03/08/19 05:32 0.0 K/mm3 03/08/19 05:32 0.0 K/mm3 03/08/19 05:32 0.0 K/mm3 03/08/19 05:32 Blast Cells # 0.0 K/mm3 03/08/19 05:32 WBC Morphology Not Reportable 03/08/19 05:32 Hypersegmented Neuts Not Reportable 03/08/19 05:32 Hyposegmented Neuts Not Reportable 03/08/19 05:32 Hypogranular Neuts Not Reportable 03/08/19 05:32 Not Reportable 03/08/19 05:32 Not Reportable 03/08/19 05:32 Not Reportable 03/08/19 05:32 Not Reportable 03/08/19 05:32 Not Reportable 03/08/19 05:32 Not Reportable 03/08/19 05:32 Consistent w auto 03/08/19 05:32 Not Reportable 03/08/19 05:32 Plt Clumps, EDTA Not Reportable 03/08/19 05:32 Not Reportable 03/08/19 05:32 Not Reportable 03/08/19 05:32 Not Reportable 03/08/19 05:32 Plt Morphology Comment Not Reportable 03/08/19 05:32 RBC Morphology Normal 03/08/19 05:32 Dimorphic RBCs Not Reportable 03/08/19 05:32 Not Reportable 03/08/19 05:32 Not Reportable 03/08/19 05:32 Not Reportable 03/08/19 05:32 Not Reportable 03/08/19 05:32 Not Reportable 03/08/19 05:32 Not Reportable 03/08/19 05:32 Not Reportable 03/08/19 05:32 Not Reportable 03/08/19 05:32 Not Reportable 03/08/19 05:32 Not Reportable 03/08/19 05:32 Not Reportable 03/08/19 05:32 Not Reportable 03/08/19 05:32 Not Reportable 03/08/19 05:32 Not Reportable 03/08/19 05:32 Not Reportable 03/08/19 05:32 Not Reportable 03/08/19 05:32 Not Reportable 03/08/19 05:32 Not Reportable 03/08/19 05:32 Not Reportable 03/08/19 05:32 Acanthocytes (Spur) Not Reportable 03/08/19 05:32 Rouleaux Not Reportable 03/08/19 05:32 Not Reportable 03/08/19 05:32 Not Reportable 03/08/19 05:32 Not Reportable 03/08/19 05:32 Not Reportable 03/08/19 05:32 Hem Pathologist Commnt No 03/08/19 05:32 PT 14.4 Sec. (12.2-14.9) 03/04/19 Unknown INR 1.05 (0.87-1.13) 03/04/19 Unknown APTT 30.1 Sec. (24.2-36.6) 03/04/19 Unknown 18.3 Sec. (15.1-19.6) 03/04/19 Unknown Sodium 144 mmol/L (137-145) 03/08/19 05:32 Potassium 2.9 mmol/L (3.6-5.0) L* 03/08/19 05:32 Chloride 108.4 mmol/L (98-107) H 03/08/19 05:32 Carbon Dioxide 25 mmol/L (22-30) 03/08/19 05:32 14 mmol/L 03/08/19 05:32 BUN 9 mg/dL (7-17) 03/08/19 05:32 1.0 mg/dL (0.7-1.2) 03/08/19 05:32 Estimated GFR > 60 ml/min 03/08/19 05:32 9 % 03/08/19 05:32 Glucose 90 mg/dL (65-100) 03/08/19 05:32 POC Glucose 91 (70-105) 03/08/19 07:47 Calcium 9.8 mg/dL (8.4-10.2) 03/08/19 05:32 Phosphorus 1.80 mg/dL (2.5-4.5) L D 03/06/19 09:57 Magnesium 1.60 mg/dL (1.7-2.3) L 03/08/19 05:32 0.30 mg/dL (0.1-1.2) 03/08/19 05:32 < 0.2 mg/dL (0-0.2) 03/04/19 21:18 0.4 mg/dL 03/04/19 21:18 AST 27 units/L (5-40) 03/08/19 05:32 ALT 17 units/L (7-56) 03/08/19 05:32 90 units/L (35-129) 03/08/19 05:32 < 0.010 ng/mL (0.00-0.029) 03/04/19 Unknown 5.7 g/dL (6.3-8.2) L 03/08/19 05:32 2.9 g/dL (3.9-5) L 03/08/19 05:32 1.0 % 03/08/19 05:32 Triglycerides 114 mg/dL (2-149) 03/05/19 05:35 Cholesterol 140 mg/dL (50-199) 03/05/19 05:35 76 mg/dL (50-130) 03/05/19 05:35 39 mg/dL (40-59) L 03/05/19 05:35 3.58 % 03/05/19 05:35 24 units/L (13-60) 03/04/19 21:10 Yellow (Yellow) 03/04/19 02:04 Cloudy (Clear) 03/04/19 02:04 5.0 (5.0-7.0) 03/04/19 02:04 Ur Specific [place] 1.013 (1.003-1.030) 03/04/19 02:04 30 mg/dl mg/dL (Negative) 03/04/19 02:04 Neg mg/dL (Negative) 03/04/19 02:04 20 mg/dL (Negative) 03/04/19 02:04 Lg (Negative) 03/04/19 02:04 Pos (Negative) 03/04/19 02:04 Neg (Negative) 03/04/19 02:04 < 2.0 mg/dL (<2.0) 03/04/19 02:04 Ur Leukocyte Esterase Lg (Negative) 03/04/19 02:04 > 182.0 /HPF (0.0-6.0) H 03/04/19 02:04 > 182.0 /HPF (0.0-6.0) 03/04/19 02:04 U Epithel Cells (Auto) 2.0 /HPF (0-13.0) 03/04/19 02:04 4+ /HPF (Negative) 03/04/19 02:04 Few /HPF 03/04/19 02:04 82.7 mg/dL (0.1-20.0) H 03/05/19 09:11 Protein/Creatinin Ratio 0.33 03/05/19 09:11 59 mmol/L 03/05/19 09:11 27 mg/dL (5-11.8) H 03/05/19 09:11 Active Medications - Current Medications Current Medications: Generic Name Dose Route Start Last Admin Trade Name Freq PRN Reason Stop Dose Admin Acetaminophen 650 mg 03/05/19 01:21 Tylenol PO Q4H PRN Pain MILD(1-3)/Fever >100.5/DICKINSON Amlodipine Besylate 5 mg 03/08/19 10:00 03/08/19 10:52 Norvasc PO 5 mg QDAY MINOR Administration Aspirin 325 mg 03/05/19 10:00 03/08/19 10:51 Aspirin PO 325 mg QDAY MINOR Administration Atorvastatin Calcium 40 mg 03/05/19 22:00 03/07/19 22:25 Lipitor PO 40 mg QHS MINOR Administration Docusate Sodium 100 mg 03/05/19 10:00 03/08/19 10:51 Colace PO 100 mg BID MINOR Administration Heparin Sodium (Porcine) 5,000 unit 03/05/19 06:00 03/08/19 06:20 Heparin SUB-Q 5,000 unit Q8HR MINOR Administration Ceftriaxone Sodium 1 gm in 50 mls @ 100 mls/hr 03/05/19 18:00 03/08/19 10:45 Rocephin/Ns 1 Gm/50 Ml IV 100 mls/hr Q24HR MINOR Administration Protocol Sodium Chloride 1,000 mls @ 100 mls/hr 03/08/19 02:00 Nacl 0.9% 1000 Ml IV DIRECT IMNOR Magnesium Sulfate 2 gm in 50 mls @ 25 mls/hr 03/08/19 13:57 Magnesium Sulfate 2gm/50ml IV 03/08/19 15:56 ONCE ONE Ondansetron HCl 4 mg 03/05/19 01:21 Zofran IV Q8H PRN Nausea And Vomiting Oxycodone/Acetaminophen 1 tab 03/05/19 01:21 03/07/19 10:18 Percocet 5/325 PO 1 tab Q6H PRN Administration Pain, Moderate (4-6) Potassium Chloride 20 meq 03/07/19 12:00 03/08/19 10:51 K-Dur PO 20 meq QDAY MINOR Administration Sodium Chloride 10 ml 03/05/19 10:00 03/08/19 10:50 Sodium Chloride Flush Syringe 10 Ml IV 10 ml BID MINOR Administration Sodium Chloride 10 ml 03/05/19 01:21 Sodium Chloride Flush Syringe 10 Ml IV PRN PRN LINE FLUSH Nutrition/Malnutrition Assess - Dietary Evaluation Nutrition/Malnutrition Findings: Nutrition Notes Start: 03/05/19 15:23 Freq: Status: Active Protocol: Document 03/05/19 15:23 RM (Rec: 03/05/19 15:38 RM [id number]) Nutrition Notes Need for Assessment generated from: [facility] Initial or Follow up Assessment Current Diagnosis Acute Kidney Injury, Hypertension,Hyperlipidemia Other Pertinent Diagnosis Hx CVA Current Diet Mech soft,Cardiac Labs/Tests Reviewed Pertinent Medications Reviewed Height 5 ft 4 in Weight 52.163 kg Usual Body Weight 56.82 kg [place] Body Weight (kg) 54.54 BMI 19.7 Weight change and time frame 8.2% wt loss X 4 weeks Subjective/Other Information Screened for malnutrition. Pt and pt relative in room at time of visit. Pt had difficulty speaking and was difficult to understand. Pt relative helped answer questions. 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 Stated UBW was 125 lbs on February 05. No temporal or orbital wasting . Burn Absent Trauma Absent Minimum of two criteria Yes Energy Intake (non-severe) <75% Estimated Energy Requirement >7 days Interpretation of Weight Loss (severe) >7.5% in 3 months #2 Nutrition Diagnosis Malnutrition Etiology possible swallowing difficulty As Evidenced by Signs and Symptoms pt relative statement that pt has not been eating since January 26, 8.2% wt loss X 4 weeks #1 Nutrition Diagnosis Inadequate oral intake Etiology possible swallowing difficulty As Evidenced by Signs and Symptoms pt relative statement that pt has not been eating since January 26 Is patient on ventilator? No Is Patient Ambulatory and/or Out of Bed Yes REE-([facility]-ambulatory/OOB) [ 1393.119 [id number]] Calculation Used for Recommendations [facility] Additional Notes Protein Needs: 52-68g (1-1.3g/ kg) Fluid Needs: 1 ml/kcal Nutrition Intervention Change Diet Order: Per ST Goal #1 Swallow evaluation by Follow-Up By: 03/08/19 Additional Comments Follow for swallow evaluation result, PO intakes
[2019-03-09] MEDS: HEPARIN SUB-Q SCH ×3 (05:57→21:22)
--- NOTE | 2019-03-09 08:52 | Magnetic Resonance Report ---
MRI ABDOMEN WITHOUT AND WITH CONTRAST : 03/08/19 10:25:00 CLINICAL: Right renal mass. COMPARISON :CT abdomen and pelvis without contrast 03/04/19 and bilateral renal ultrasound 03/05/19 TECHNIQUE: Axial T1 in phase and opposed phase, coronal and axial T2 and axial T2 fat sat sequences plus multiphase postcontrast T1 fat sat sequences on a 1.5 Leidy magnet. 15.0 cc of Multihance was injected intravenously for the contrast portion of the exam and consent was obtained prior to the administration of the contrast. FINDINGS: The right kidney measures 11.3 x 6.8 x 4.9 cm and the left kidney measures 9.2 x 5.2 x 4.9 cm. A multicystic right upper pole renal mass measures approximately 6.5 cm craniocaudal dimension by 4.0 cm AP dimension by 6.4 cm transverse dimension. The mass consists of multiple cysts within banerjee and it demonstrates no enhancement. Fluid debris levels are identified in the couple of the larger cysts. The shape of the mass on coronal imaging is suggestive of an obstructed upper pole renal collecting system with a 3.6 cm dilated renal pelvis with indicating dilated calyces. A few tiny cysts of the lower portion of the right kidney. The rest of the right renal collecting system is nondilated. A few tiny cysts of the left kidney and a dominant cyst of the left kidney measuring 1.4 cm in the medial upper pole. The left renal collecting system is nondilated. Normal adrenal glands. The renal vasculature and the inferior vena cava are normal. Aortic ectasia and tortuosity. Normal liver and bile ducts. Numerous small calculi layer dependently within the gallbladder. No evidence of choledocholithiasis. The common bile duct is nondilated and measures 3 mm. Normal pancreas and stomach. Normal duodenum. Imaged portions of small bowel and colon are normal. No ascites. Normal spleen. The bones and soft tissues are normal. IMPRESSION: 1. A nonenhancing 6.5 cm multicystic right upper pole renal mass. 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 A benign multicystic renal neoplasm is also a possibility. Malignant neoplasm is a less likely possibility given that there is no enhancement. 2. Cholelithiasis with no signs of acute cholecystitis or choledocholithiasis.
--- NOTE | 2019-03-09 08:59 | Progress Note ---
Assessment and Plan Assessment and plan: Patient is a 63 year old woman with a history of recent CVA (2 weeks ago) and hypertension who presented to the ED with poor oral intake. She c/o difficulty swallowing and generalized weakness. In the ER she noted elevated Cr and right renal mass. * CT abdomen/pelvis: Large cystic mass upper pole of the right kidney highly concerning for neoplasm, Multiple bilateral nonobstructing renal calculi, Chol elithiasis multiple small stones in the gallbladder * MRI abdomen with and without contrast: IMPRESSION: 1. A nonenhancing 6.5 cm multicystic right upper pole renal mass. 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 A benign multicystic renal neoplasm is also a possibility. Malignant neoplasm is a less likely possibility given that there is no enhancement. 2. Cholelithiasis with no signs of acute cholecystitis or choledocholithiasis. New Right renal mass per CT abdomen/pelvis, MRI reviewed==>? need for renal bx, will defer to Consultants Moderate malnutrition, poa: consult Construction Field Engineer Severe hypokalemia: replete and recheck in am ARF/vasomotor nephropathy and ATN, poa: improved with iv fluid, likely from poor oral intake and dehydration, Nephrology consulted and following Bilateral nonobstructing renal calculi Urology following, cont iv fluid UTI, urine culture negative, stop IV antibiotics HTN, hold losartan, started amlodipine History of recent CVA with residual left-sided weakness, -Continue aspirin and statin, -PT/OT/ST consulted Possible dysphagia -Speech therapy consulted - recommended mechanical soft with thin liquid Hyperlipidemia-On statin DVT prophylaxis with heparin I spoke with daughter Sandy [phone] Awaiting on Labs History Interval history: Patient was seen and examined. Follow-up on current diagnosis Renal mass. No overnight events reported to me. Patient denies any chest pain, shortness breath, nausea/vomiting or severe headaches. Imaging, nursing note, chart, labs and old chart reviewed. Discussed with patient. Hospitalist Physical - Physical exam Narrative exam: Gen: WDWN, NAD, Awake, Alert, Orientated HEENT: NCAT, EOMI, PERRL, OP Clear Neck: supple, no adenopathy, no thyromegaly, no JVD CVS/Heart: RRR, normal S1S2, pulses present bilaterally Chest/Lungs: CTA B, Symmetrical chest exddfpansion, good air entry bilaterally GI/Abdomen: soft, NTND, good bowel sounds, no guarding or rebound /Bladder: no suprapubic tenderness, no CVA or paraspinal tenderness Extermity/Skin: no c/c/e, no obvious rash MSK: FROM x 4 Neuro: CN 2-12 grossly intact, no new focal deficits Psych: calm - Constitutional Vitals: Temp Pulse Resp BP Pulse Ox 98.4 F 78 20 148/93 99 03/09/19 05:35 03/09/19 05:35 03/09/19 05:35 03/09/19 05:35 03/09/19 05:35 General appearance: Present: no acute distress Results - Labs CBC & Chem 7: 03/08/19 05:32 03/08/19 05:32 Labs: Laboratory Last Values WBC 4.5 K/mm3 (4.5-11.0) 03/08/19 05:32 RBC 3.84 M/mm3 (3.65-5.03) 03/08/19 05:32 Hgb 12.0 gm/dl (10.1-14.3) 03/08/19 05:32 Hct 36.1 % (30.3-42.9) 03/08/19 05:32 MCV 94 fl (79-97) 03/08/19 05:32 MCH 31 pg (28-32) 03/08/19 05:32 MCHC 33 % (30-34) 03/08/19 05:32 RDW 13.9 % (13.2-15.2) 03/08/19 05:32 Plt Count 143 K/mm3 (140-440) 03/08/19 05:32 Lymph % (Auto) 44.6 % (13.4-35.0) H 03/07/19 05:39 [place] % (Auto) 10.0 % (0.0-7.3) H 03/07/19 05:39 Eos % (Auto) 7.6 % (0.0-4.3) H 03/07/19 05:39 Baso % (Auto) 0.8 % (0.0-1.8) 03/07/19 05:39 Lymph # 1.9 K/mm3 (1.2-5.4) 03/07/19 05:39 [place] # 0.4 K/mm3 (0.0-0.8) 03/07/19 05:39 Eos # 0.3 K/mm3 (0.0-0.4) 03/07/19 05:39 Baso # 0.0 K/mm3 (0.0-0.1) 03/07/19 05:39 Add Manual Diff Complete 03/08/19 05:32 Total Counted 100 03/08/19 05:32 Seg Neutrophils % Dredge Pump Operator 03/08/19 05:32 Seg Neuts % (Manual) 33.0 % (40.0-70.0) L 03/08/19 05:32 0 % 03/08/19 05:32 56.0 % (13.4-35.0) H 03/08/19 05:32 Reactive Lymphs % (Man) 1.0 % 03/08/19 05:32 5.0 % (0.0-7.3) 03/08/19 05:32 5.0 % (0.0-4.3) H 03/08/19 05:32 0 % (0.0-1.8) 03/08/19 05:32 0 % 03/08/19 05:32 0 % 03/08/19 05:32 0 % 03/08/19 05:32 0 % 03/08/19 05:32 Nucleated RBC % Not Reportable 03/08/19 05:32 Seg Neutrophils # 1.6 K/mm3 (1.8-7.7) L 03/07/19 05:39 Seg Neutrophils # Man 1.5 K/mm3 (1.8-7.7) L 03/08/19 05:32 Band Neutrophils # 0.0 K/mm3 03/08/19 05:32 2.5 K/mm3 (1.2-5.4) 03/08/19 05:32 Abs React Lymphs (Man) 0.0 K/mm3 03/08/19 05:32 0.2 K/mm3 (0.0-0.8) 03/08/19 05:32 0.2 K/mm3 (0.0-0.4) 03/08/19 05:32 0.0 K/mm3 (0.0-0.1) 03/08/19 05:32 0.0 K/mm3 03/08/19 05:32 0.0 K/mm3 03/08/19 05:32 0.0 K/mm3 03/08/19 05:32 Blast Cells # 0.0 K/mm3 03/08/19 05:32 WBC Morphology Not Reportable 03/08/19 05:32 Hypersegmented Neuts Not Reportable 03/08/19 05:32 Hyposegmented Neuts Not Reportable 03/08/19 05:32 Hypogranular Neuts Not Reportable 03/08/19 05:32 Not Reportable 03/08/19 05:32 Not Reportable 03/08/19 05:32 Not Reportable 03/08/19 05:32 Not Reportable 03/08/19 05:32 Not Reportable 03/08/19 05:32 Not Reportable 03/08/19 05:32 Consistent w auto 03/08/19 05:32 Not Reportable 03/08/19 05:32 Plt Clumps, EDTA Not Reportable 03/08/19 05:32 Not Reportable 03/08/19 05:32 Not Reportable 03/08/19 05:32 Not Reportable 03/08/19 05:32 Plt Morphology Comment Not Reportable 03/08/19 05:32 RBC Morphology Normal 03/08/19 05:32 Dimorphic RBCs Not Reportable 03/08/19 05:32 Not Reportable 03/08/19 05:32 Not Reportable 03/08/19 05:32 Not Reportable 03/08/19 05:32 Not Reportable 03/08/19 05:32 Not Reportable 03/08/19 05:32 Not Reportable 03/08/19 05:32 Not Reportable 03/08/19 05:32 Not Reportable 03/08/19 05:32 Not Reportable 03/08/19 05:32 Not Reportable 03/08/19 05:32 Not Reportable 03/08/19 05:32 Not Reportable 03/08/19 05:32 Not Reportable 03/08/19 05:32 Not Reportable 03/08/19 05:32 Not Reportable 03/08/19 05:32 Not Reportable 03/08/19 05:32 Not Reportable 03/08/19 05:32 Not Reportable 03/08/19 05:32 Not Reportable 03/08/19 05:32 Acanthocytes (Spur) Not Reportable 03/08/19 05:32 Rouleaux Not Reportable 03/08/19 05:32 Not Reportable 03/08/19 05:32 Not Reportable 03/08/19 05:32 Not Reportable 03/08/19 05:32 Not Reportable 03/08/19 05:32 Hem Pathologist Commnt No 03/08/19 05:32 PT 14.4 Sec. (12.2-14.9) 03/04/19 Unknown INR 1.05 (0.87-1.13) 03/04/19 Unknown APTT 30.1 Sec. (24.2-36.6) 03/04/19 Unknown 18.3 Sec. (15.1-19.6) 03/04/19 Unknown Sodium 144 mmol/L (137-145) 03/08/19 05:32 Potassium 2.9 mmol/L (3.6-5.0) L* 03/08/19 05:32 Chloride 108.4 mmol/L (98-107) H 03/08/19 05:32 Carbon Dioxide 25 mmol/L (22-30) 03/08/19 05:32 14 mmol/L 03/08/19 05:32 BUN 9 mg/dL (7-17) 03/08/19 05:32 1.0 mg/dL (0.7-1.2) 03/08/19 05:32 Estimated GFR > 60 ml/min 03/08/19 05:32 9 % 03/08/19 05:32 Glucose 90 mg/dL (65-100) 03/08/19 05:32 POC Glucose 91 (70-105) 03/08/19 07:47 Calcium 9.8 mg/dL (8.4-10.2) 03/08/19 05:32 Phosphorus 1.80 mg/dL (2.5-4.5) L D 03/06/19 09:57 Magnesium 1.60 mg/dL (1.7-2.3) L 03/08/19 05:32 0.30 mg/dL (0.1-1.2) 03/08/19 05:32 < 0.2 mg/dL (0-0.2) 03/04/19 21:18 0.4 mg/dL 03/04/19 21:18 AST 27 units/L (5-40) 03/08/19 05:32 ALT 17 units/L (7-56) 03/08/19 05:32 90 units/L (35-129) 03/08/19 05:32 < 0.010 ng/mL (0.00-0.029) 03/04/19 Unknown 5.7 g/dL (6.3-8.2) L 03/08/19 05:32 2.9 g/dL (3.9-5) L 03/08/19 05:32 1.0 % 03/08/19 05:32 Triglycerides 114 mg/dL (2-149) 03/05/19 05:35 Cholesterol 140 mg/dL (50-199) 03/05/19 05:35 76 mg/dL (50-130) 03/05/19 05:35 39 mg/dL (40-59) L 03/05/19 05:35 3.58 % 03/05/19 05:35 24 units/L (13-60) 03/04/19 21:10 Yellow (Yellow) 03/04/19 02:04 Cloudy (Clear) 03/04/19 02:04 5.0 (5.0-7.0) 03/04/19 02:04 Ur Specific [place] 1.013 (1.003-1.030) 03/04/19 02:04 30 mg/dl mg/dL (Negative) 03/04/19 02:04 Neg mg/dL (Negative) 03/04/19 02:04 20 mg/dL (Negative) 03/04/19 02:04 Lg (Negative) 03/04/19 02:04 Pos (Negative) 03/04/19 02:04 Neg (Negative) 03/04/19 02:04 < 2.0 mg/dL (<2.0) 03/04/19 02:04 Ur Leukocyte Esterase Lg (Negative) 03/04/19 02:04 > 182.0 /HPF (0.0-6.0) H 03/04/19 02:04 > 182.0 /HPF (0.0-6.0) 03/04/19 02:04 U Epithel Cells (Auto) 2.0 /HPF (0-13.0) 03/04/19 02:04 4+ /HPF (Negative) 03/04/19 02:04 Few /HPF 03/04/19 02:04 82.7 mg/dL (0.1-20.0) H 03/05/19 09:11 Protein/Creatinin Ratio 0.33 03/05/19 09:11 59 mmol/L 03/05/19 09:11 27 mg/dL (5-11.8) H 03/05/19 09:11 Active Medications - Current Medications Current Medications: Generic Name Dose Route Start Last Admin Trade Name Freq PRN Reason Stop Dose Admin Acetaminophen 650 mg 03/05/19 01:21 Tylenol PO Q4H PRN Pain MILD(1-3)/Fever >100.5/DICKINSON Amlodipine Besylate 5 mg 03/08/19 10:00 03/08/19 10:52 Norvasc PO 5 mg QDAY MINOR Administration Aspirin 325 mg 03/05/19 10:00 03/08/19 10:51 Aspirin PO 325 mg QDAY MINOR Administration Atorvastatin Calcium 40 mg 03/05/19 22:00 03/08/19 22:44 Lipitor PO 40 mg QHS MINOR Administration Docusate Sodium 100 mg 03/05/19 10:00 03/08/19 22:47 Colace PO Not Given BID [facility] Heparin Sodium (Porcine) 5,000 unit 03/05/19 06:00 03/09/19 05:57 Heparin SUB-Q 5,000 unit Q8HR MINOR Administration Sodium Chloride 1,000 mls @ 100 mls/hr 03/08/19 02:00 Nacl 0.9% 1000 Ml IV DIRECT MINOR Ondansetron HCl 4 mg 03/05/19 01:21 Zofran IV Q8H PRN Nausea And Vomiting Oxycodone/Acetaminophen 1 tab 03/05/19 01:21 03/07/19 10:18 Percocet 5/325 PO 1 tab Q6H PRN Administration Pain, Moderate (4-6) Potassium Chloride 20 meq 03/07/19 12:00 03/08/19 10:51 K-Dur PO 20 meq QDAY MINOR Administration Sodium Chloride 10 ml 03/05/19 10:00 03/08/19 22:46 Sodium Chloride Flush Syringe 10 Ml IV Not Given BID MINOR Sodium Chloride 10 ml 03/05/19 01:21 Sodium Chloride Flush Syringe 10 Ml IV PRN PRN LINE FLUSH Nutrition/Malnutrition Assess - Dietary Evaluation Nutrition/Malnutrition Findings: Nutrition Notes Start: 03/05/19 15:23 Freq: Status: Active Protocol: Document 03/08/19 15:36 RM (Rec: 03/08/19 15:39 RM [id number]) Nutrition Notes Initial or Follow up Reassessment Current Diagnosis Acute Kidney Injury, Hypertension,Hyperlipidemia Other Pertinent Diagnosis Hx CVA Current Diet Mechanical soft, Cardiac w/ ground meat Labs/Tests Reviewed Pertinent Medications Reviewed Height 5 ft 4 in Weight 61.6 kg Delong Body Weight (kg) 54.54 BMI 23.3 Weight change and time frame Current wt obtained from [facility] Subjective/Other Information [facility] soft diet w/ground meat recommended per bedside swallow 03/06/19. Pt stated that her appetite is poor and that she has not been eating her meals d/t being overwhelmed by the amount of food she is receiving. Also stated that she was told not to eat today for an upcoming procedure. Stated she does drink Ensure Clear brought in by her daughter. Pt began crying from concern about what is going on with her. Pm Technician called RN to speak w/pt about concerns. Burn Absent Trauma Absent #2 Nutrition Diagnosis Malnutrition Diagnosis Progress(for reassessment Continues documentation) #1 Nutrition Diagnosis Inadequate oral intake Diagnosis Progress(for reassessment Continues documentation) Is patient on ventilator? No Is Patient Ambulatory and/or Out of Bed Yes REE-([place] Jeor-ambulatory/OOB) [ 1515.800 [id number]] Calculation Used for Recommendations [facility] Additional Notes Protein Needs: 52-68g (1-1.3g/ kg) Fluid Needs: 1 ml/kcal Nutrition Intervention Change Diet Order: continue current Add Supplement/Snack (indicate name/kcal Ensure Clear 1 daily /protein ) Provides kCal: 220 Provides Protein (gm) 8 Goal #1 Meet at least 75% of calorie and protein needs via PO and ONS intakes Anticipated Discharge Needs: Unable to determine at this time Follow-Up By: 03/10/19 Additional Comments Follow for PO and ONS intakes
[2019-03-09] MEDS: ASPIRIN PO SCH (09:38)
[2019-03-09] MEDS: NORVASC PO SCH (09:38)
[2019-03-09] MEDS: K-DUR PO SCH (09:39)
[2019-03-09] MEDS: SODIUM CHLORIDE FLUSH SYRINGE 10 ML IV SCH ×2 (09:40→21:22)
[2019-03-09 09:47] LABS: Alanine Aminotransferase 22 units/L (7-56); Albumin 3.3 g/dL (3.9-5); BUN/Creatinine Ratio 5; Blood Urea Nitrogen 5 mg/dL (7-17); Calcium 9.8 mg/dL (8.4-10.2); Hemolysis Index 5
--- NOTE | 2019-03-09 10:37 | Progress Note ---
Assessment and Plan Acute Renal Failure likely secondary to Prerenal Azotemia secondary to volume depletion from N/V and poor oral intake: -Renal labs reviewed. Cr improved. -Renal function continues to improve on IV hydration -Serum creatinine noted to be 1.04 on outside lab done on 01/31/19 -Reviewed Ct scan of Abdomen/Pelvis- Large cystic mass to upper pole of right kidney with concern for neoplasm noted. Dr. Freitas onboard -Urine lytes reviewed -On NS@ 125 ml/hr, will D/C IVF -Strict I/O monitoring -Avoid Nephrotoxic agents -Renally dose medications -Will continue to monitor renal function closely Hypokalemia: -Started KCl 20 meq po daily -Replace PRN -BMP daily History of Hypertension: S/P Hypotension: -On Losartan 25 mg po daily -Monitor blood pressures History of CVA with residual left-sided weakness -On Aspirin and Atorvastatin -PT/OT/Speech onboard -As per primary Subjective Date of service: 03/09/19 Principal diagnosis: acute renal failure, right renal mass, hypertension, dysp hagia, old CVA Interval history: Making urine. Objective - Exam Narrative Exam: General appearance: well-developed, well-nourished, fatigue EENT: ATNC, PERRL, hearing intact, vision intact Neck: no JVD, supple Respiratory: Present: Clear to Ascultation Cardiology: S1S2 Gastrointestinal: normoactive bowel sounds Integumentary: warm and dry Neurologic: alert and oriented x3 Musculoskeletal: other (No edema. Left-side weakness) Psychiatric: cooperative - Vital Signs Vital signs: Vital Signs - 12hr 03/09/19 03/09/19 05:35 09:38 Temperature 98.4 F Pulse Rate 78 86 Respiratory 20 Rate Blood Pressure 148/93 125/74 O2 Sat by Pulse 99 Oximetry - Lab 03/08/19 05:32 03/09/19 08:14 Most recent lab results Calcium 9.8 mg/dL (8.4-10.2) 03/09/19 08:14 Phosphorus 1.80 mg/dL (2.5-4.5) L D 03/06/19 09:57 Magnesium 1.90 mg/dL (1.7-2.3) 03/09/19 08:14 82.7 mg/dL (0.1-20.0) H 03/05/19 09:11 59 mmol/L 03/05/19 09:11 27 mg/dL (5-11.8) H 03/05/19 09:11 Medications & Allergies - Medications Allergies/Adverse Reactions: Allergies No Known Allergies Allergy (Unverified 03/04/19 19:33) Home Medications: Home Medications Medication Instructions Recorded Confirmed Last Taken Type Aspirin [Aspirin BABY CHEW TAB] 81 mg PO DAILY 03/05/19 03/05/19 Unknown History Hyzaar 100-12.5 Tablet 50 mg PO DAILY 03/05/19 03/05/19 Unknown History Lipitor 20 mg PO DAILY 03/05/19 03/05/19 Unknown History NIFEdipine XL [Procardia Xl] 20 mg PO QDAY 03/05/19 03/05/19 Unknown History Active Medications: Generic Name Dose Route Start Last Admin Trade Name Freq PRN Reason Stop Dose Admin Acetaminophen 650 mg 03/05/19 01:21 Tylenol PO Q4H PRN Pain MILD(1-3)/Fever >100.5/DICKINSON Amlodipine Besylate 5 mg 03/08/19 10:00 03/09/19 09:38 Norvasc PO 5 mg QDAY MINOR Administration Aspirin 325 mg 03/05/19 10:00 03/09/19 09:38 Aspirin PO 325 mg QDAY MINOR Administration Atorvastatin Calcium 40 mg 03/05/19 22:00 03/08/19 22:44 Lipitor PO 40 mg QHS MINOR Administration Docusate Sodium 100 mg 03/05/19 10:00 03/08/19 22:47 Colace PO Not Given BID MINOR Heparin Sodium (Porcine) 5,000 unit 03/05/19 06:00 03/09/19 05:57 Heparin SUB-Q 5,000 unit Q8HR MINOR Administration Sodium Chloride 1,000 mls @ 100 mls/hr 03/08/19 02:00 Nacl 0.9% 1000 Ml IV DIRECT MINOR Ondansetron HCl 4 mg 03/05/19 01:21 Zofran IV Q8H PRN Nausea And Vomiting Oxycodone/Acetaminophen 1 tab 03/05/19 01:21 03/07/19 10:18 Percocet 5/325 PO 1 tab Q6H PRN Administration Pain, Moderate (4-6) Potassium Chloride 20 meq 03/07/19 12:00 03/09/19 09:39 K-Dur PO 20 meq QDAY MINOR Administration Sodium Chloride 10 ml 03/05/19 10:00 03/09/19 09:40 Sodium Chloride Flush Syringe 10 Ml IV 10 ml BID MINOR Administration Sodium Chloride 10 ml 03/05/19 01:21 Sodium Chloride Flush Syringe 10 Ml IV PRN PRN LINE FLUSH
[2019-03-09] MEDS: COLACE PO SCH ×2 (12:45→21:21)
--- NOTE | 2019-03-09 15:20 | Progress Note ---
Assessment and Plan Assessment and plan: Patient is a 63 year old woman with a history of recent CVA (2 weeks ago) and hypertension who presented to the ED with poor oral intake. She c/o difficulty swallowing and generalized weakness. In the ER she noted elevated Cr and right renal mass. * CT abdomen/pelvis: Large cystic mass upper pole of the right kidney highly concerning for neoplasm, Multiple bilateral nonobstructing renal calculi, Chol elithiasis multiple small stones in the gallbladder * MRI abdomen with and without contrast: IMPRESSION: 1. A nonenhancing 6.5 cm multicystic right upper pole renal mass. 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 A benign multicystic renal neoplasm is also a possibility. Malignant neoplasm is a less likely possibility given that there is no enhancement. 2. Cholelithiasis with no signs of acute cholecystitis or choledocholithiasis. New Right renal mass per CT abdomen/pelvis, MRI reviewed==>? 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 Severe hypokalemia: replete and recheck in am ARF/vasomotor nephropathy and ATN, poa: improved with iv fluid, likely from poor oral intake and dehydration, Nephrology consulted and following Bilateral nonobstructing renal calculi Urology following, cont iv fluid UTI, urine culture negative, stopped IV antibiotics and will monitor HTN, hold losartan, started amlodipine History of recent CVA with residual left-sided weakness, -Continue aspirin and statin, -PT/OT/ST consulted Possible dysphagia -Speech therapy consulted - recommended mechanical soft with thin liquid Hyperlipidemia-On statin DVT prophylaxis with heparin I spoke with daughter Sandy [phone] and called again at 3:19pm, no answer, left message. per IR, Dr. Romero Unfortunately, due to the size and the numerous abutting structures noted on CT (gallbladder, duodenum, adrenal gland, liver), this is not a percutaneous cryoablation candidate. MRI will probably better document the lesion. If there is a solid nodular component, then the risk of renal cell carcinoma is quite high (greater than 90-95%). Anticipate d/c tomorrow History Interval history: Patient was seen and examined. Follow-up on current diagnosis Renal mass. No o vernight events reported to me. Patient denies any chest pain, shortness breath, nausea/vomiting or severe headaches. Imaging, nursing note, chart, labs and old chart reviewed. Discussed with patient. Hospitalist Physical - Physical exam Narrative exam: Gen: WDWN, NAD, Awake, Alert, Orientated HEENT: NCAT, EOMI, PERRL, OP Clear Neck: supple, no adenopathy, no thyromegaly, no JVD CVS/Heart: RRR, normal S1S2, pulses present bilaterally Chest/Lungs: CTA B, Symmetrical chest exddfpansion, good air entry bilaterally GI/Abdomen: soft, NTND, good bowel sounds, no guarding or rebound /Bladder: no suprapubic tenderness, no CVA or paraspinal tenderness Extermity/Skin: no c/c/e, no obvious rash MSK: FROM x 4 Neuro: CN 2-12 grossly intact, no new focal deficits Psych: calm - Constitutional Vitals: Temp Pulse Resp BP Pulse Ox 98.6 F 82 20 110/68 98 03/09/19 12:15 03/09/19 12:15 03/09/19 12:15 03/09/19 12:15 03/09/19 12:15 General appearance: Present: no acute distress Results - Labs CBC & Chem 7: 03/08/19 05:32 03/09/19 08:14 Labs: Laboratory Last Values WBC 4.5 K/mm3 (4.5-11.0) 03/08/19 05:32 RBC 3.84 M/mm3 (3.65-5.03) 03/08/19 05:32 Hgb 12.0 gm/dl (10.1-14.3) 03/08/19 05:32 Hct 36.1 % (30.3-42.9) 03/08/19 05:32 MCV 94 fl (79-97) 03/08/19 05:32 MCH 31 pg (28-32) 03/08/19 05:32 MCHC 33 % (30-34) 03/08/19 05:32 RDW 13.9 % (13.2-15.2) 03/08/19 05:32 Plt Count 143 K/mm3 (140-440) 03/08/19 05:32 Lymph % (Auto) 44.6 % (13.4-35.0) H 03/07/19 05:39 [place] % (Auto) 10.0 % (0.0-7.3) H 03/07/19 05:39 Eos % (Auto) 7.6 % (0.0-4.3) H 03/07/19 05:39 Baso % (Auto) 0.8 % (0.0-1.8) 03/07/19 05:39 Lymph # 1.9 K/mm3 (1.2-5.4) 03/07/19 05:39 [place] # 0.4 K/mm3 (0.0-0.8) 03/07/19 05:39 Eos # 0.3 K/mm3 (0.0-0.4) 03/07/19 05:39 Baso # 0.0 K/mm3 (0.0-0.1) 03/07/19 05:39 Add Manual Diff Complete 03/08/19 05:32 Total Counted 100 03/08/19 05:32 Seg Neutrophils % [facility] 03/08/19 05:32 Seg Neuts % (Manual) 33.0 % (40.0-70.0) L 03/08/19 05:32 0 % 03/08/19 05:32 56.0 % (13.4-35.0) H 03/08/19 05:32 Reactive Lymphs % (Man) 1.0 % 03/08/19 05:32 5.0 % (0.0-7.3) 03/08/19 05:32 5.0 % (0.0-4.3) H 03/08/19 05:32 0 % (0.0-1.8) 03/08/19 05:32 0 % 03/08/19 05:32 0 % 03/08/19 05:32 0 % 03/08/19 05:32 0 % 03/08/19 05:32 Nucleated RBC % Not Reportable 03/08/19 05:32 Seg Neutrophils # 1.6 K/mm3 (1.8-7.7) L 03/07/19 05:39 Seg Neutrophils # Man 1.5 K/mm3 (1.8-7.7) L 03/08/19 05:32 Band Neutrophils # 0.0 K/mm3 03/08/19 05:32 2.5 K/mm3 (1.2-5.4) 03/08/19 05:32 Abs React Lymphs (Man) 0.0 K/mm3 03/08/19 05:32 0.2 K/mm3 (0.0-0.8) 03/08/19 05:32 0.2 K/mm3 (0.0-0.4) 03/08/19 05:32 0.0 K/mm3 (0.0-0.1) 03/08/19 05:32 0.0 K/mm3 03/08/19 05:32 0.0 K/mm3 03/08/19 05:32 0.0 K/mm3 03/08/19 05:32 Blast Cells # 0.0 K/mm3 03/08/19 05:32 WBC Morphology Not Reportable 03/08/19 05:32 Hypersegmented Neuts Not Reportable 03/08/19 05:32 Hyposegmented Neuts Not Reportable 03/08/19 05:32 Hypogranular Neuts Not Reportable 03/08/19 05:32 Not Reportable 03/08/19 05:32 Not Reportable 03/08/19 05:32 Not Reportable 03/08/19 05:32 Not Reportable 03/08/19 05:32 Not Reportable 03/08/19 05:32 Not Reportable 03/08/19 05:32 Consistent w auto 03/08/19 05:32 Not Reportable 03/08/19 05:32 Plt Clumps, EDTA Not Reportable 03/08/19 05:32 Not Reportable 03/08/19 05:32 Not Reportable 03/08/19 05:32 Not Reportable 03/08/19 05:32 Plt Morphology Comment Not Reportable 03/08/19 05:32 RBC Morphology Normal 03/08/19 05:32 Dimorphic RBCs Not Reportable 03/08/19 05:32 Not Reportable 03/08/19 05:32 Not Reportable 03/08/19 05:32 Not Reportable 03/08/19 05:32 Not Reportable 03/08/19 05:32 Not Reportable 03/08/19 05:32 Not Reportable 03/08/19 05:32 Not Reportable 03/08/19 05:32 Not Reportable 03/08/19 05:32 Not Reportable 03/08/19 05:32 Not Reportable 03/08/19 05:32 Not Reportable 03/08/19 05:32 Not Reportable 03/08/19 05:32 Not Reportable 03/08/19 05:32 Not Reportable 03/08/19 05:32 Not Reportable 03/08/19 05:32 Not Reportable 03/08/19 05:32 Not Reportable 03/08/19 05:32 Not Reportable 03/08/19 05:32 Not Reportable 03/08/19 05:32 Acanthocytes (Spur) Not Reportable 03/08/19 05:32 Rouleaux Not Reportable 03/08/19 05:32 Not Reportable 03/08/19 05:32 Not Reportable 03/08/19 05:32 Not Reportable 03/08/19 05:32 Not Reportable 03/08/19 05:32 Hem Pathologist Commnt No 03/08/19 05:32 PT 14.4 Sec. (12.2-14.9) 03/04/19 Unknown INR 1.05 (0.87-1.13) 03/04/19 Unknown APTT 30.1 Sec. (24.2-36.6) 03/04/19 Unknown 18.3 Sec. (15.1-19.6) 03/04/19 Unknown Sodium 143 mmol/L (137-145) 03/09/19 08:14 Potassium 4.1 mmol/L (3.6-5.0) D 03/09/19 08:14 Chloride 108.5 mmol/L (98-107) H 03/09/19 08:14 Carbon Dioxide 24 mmol/L (22-30) 03/09/19 08:14 15 mmol/L 03/09/19 08:14 BUN 5 mg/dL (7-17) L 03/09/19 08:14 1.1 mg/dL (0.7-1.2) 03/09/19 08:14 Estimated GFR > 60 ml/min 03/09/19 08:14 5 % 03/09/19 08:14 Glucose 110 mg/dL (65-100) H 03/09/19 08:14 POC Glucose 91 (70-105) 03/08/19 07:47 Calcium 9.8 mg/dL (8.4-10.2) 03/09/19 08:14 Phosphorus 1.80 mg/dL (2.5-4.5) L D 03/06/19 09:57 Magnesium 1.90 mg/dL (1.7-2.3) 03/09/19 08:14 0.40 mg/dL (0.1-1.2) 03/09/19 08:14 < 0.2 mg/dL (0-0.2) 03/04/19 21:18 0.4 mg/dL 03/04/19 21:18 AST 32 units/L (5-40) 03/09/19 08:14 ALT 22 units/L (7-56) 03/09/19 08:14 103 units/L (35-129) 03/09/19 08:14 < 0.010 ng/mL (0.00-0.029) 03/04/19 Unknown 6.4 g/dL (6.3-8.2) 03/09/19 08:14 3.3 g/dL (3.9-5) L 03/09/19 08:14 1.1 % 03/09/19 08:14 Triglycerides 114 mg/dL (2-149) 03/05/19 05:35 Cholesterol 140 mg/dL (50-199) 03/05/19 05:35 76 mg/dL (50-130) 03/05/19 05:35 39 mg/dL (40-59) L 03/05/19 05:35 3.58 % 03/05/19 05:35 24 units/L (13-60) 03/04/19 21:10 Yellow (Yellow) 03/04/19 02:04 Cloudy (Clear) 03/04/19 02:04 5.0 (5.0-7.0) 03/04/19 02:04 Ur Specific [place] 1.013 (1.003-1.030) 03/04/19 02:04 30 mg/dl mg/dL (Negative) 03/04/19 02:04 Neg mg/dL (Negative) 03/04/19 02:04 20 mg/dL (Negative) 03/04/19 02:04 Lg (Negative) 03/04/19 02:04 Pos (Negative) 03/04/19 02:04 Neg (Negative) 03/04/19 02:04 < 2.0 mg/dL (<2.0) 03/04/19 02:04 Ur Leukocyte Esterase Lg (Negative) 03/04/19 02:04 > 182.0 /HPF (0.0-6.0) H 03/04/19 02:04 > 182.0 /HPF (0.0-6.0) 03/04/19 02:04 U Epithel Cells (Auto) 2.0 /HPF (0-13.0) 03/04/19 02:04 4+ /HPF (Negative) 03/04/19 02:04 Few /HPF 03/04/19 02:04 82.7 mg/dL (0.1-20.0) H 03/05/19 09:11 Protein/Creatinin Ratio 0.33 03/05/19 09:11 59 mmol/L 03/05/19 09:11 27 mg/dL (5-11.8) H 03/05/19 09:11 Active Medications - Current Medications Current Medications: Generic Name Dose Route Start Last Admin Trade Name Freq PRN Reason Stop Dose Admin Acetaminophen 650 mg 03/05/19 01:21 Tylenol PO Q4H PRN Pain MILD(1-3)/Fever >100.5/DICKINSON Amlodipine Besylate 5 mg 03/08/19 10:00 03/09/19 09:38 Norvasc PO 5 mg QDAY MINOR Administration Aspirin 325 mg 03/05/19 10:00 03/09/19 09:38 Aspirin PO 325 mg QDAY MINOR Administration Atorvastatin Calcium 40 mg 03/05/19 22:00 03/08/19 22:44 Lipitor PO 40 mg QHS MINOR Administration Docusate Sodium 100 mg 03/05/19 10:00 03/09/19 12:45 Colace PO Not Given BID MINOR Heparin Sodium (Porcine) 5,000 unit 03/05/19 06:00 03/09/19 13:46 Heparin SUB-Q 5,000 unit Q8HR MINOR Administration Sodium Chloride 1,000 mls @ 100 mls/hr 03/08/19 02:00 Nacl 0.9% 1000 Ml IV DIRECT MINOR Ondansetron HCl 4 mg 03/05/19 01:21 Zofran IV Q8H PRN Nausea And Vomiting Oxycodone/Acetaminophen 1 tab 03/05/19 01:21 03/07/19 10:18 Percocet 5/325 PO 1 tab Q6H PRN Administration Pain, Moderate (4-6) Potassium Chloride 20 meq 03/07/19 12:00 03/09/19 09:39 K-Dur PO 20 meq QDAY MINOR Administration Sodium Chloride 10 ml 03/05/19 10:00 03/09/19 09:40 Sodium Chloride Flush Syringe 10 Ml IV 10 ml BID MINOR Administration Sodium Chloride 10 ml 03/05/19 01:21 Sodium Chloride Flush Syringe 10 Ml IV PRN PRN LINE FLUSH Nutrition/Malnutrition Assess - Dietary Evaluation Nutrition/Malnutrition Findings: Nutrition Notes Start: 03/05/19 15:23 Freq: Status: Active Protocol: Document 03/08/19 15:36 RM (Rec: 03/08/19 15:39 RM [id number]) Nutrition Notes Initial or Follow up Reassessment Current Diagnosis Acute Kidney Injury, Hypertension,Hyperlipidemia Other Pertinent Diagnosis Hx CVA Current Diet Mechanical soft, Cardiac w/ ground meat Labs/Tests Reviewed Pertinent Medications Reviewed Height 5 ft 4 in Weight 61.6 kg [place] Body Weight (kg) 54.54 BMI 23.3 Weight change and time frame Current wt obtained from [facility] Subjective/Other Information [facility] soft diet w/ground meat recommended per bedside swallow 03/06/19. Pt stated that her appetite is poor and that she has not been eating her meals d/t being overwhelmed by the amount of food she is receiving. Also stated that she was told not to eat today for an upcoming procedure. Stated she does drink Ensure Clear brought in by her daughter. Pt began crying from concern about what is going on with her. High Risk Case Manager called RN to speak w/pt about concerns. Burn Absent Trauma Absent #2 Nutrition Diagnosis Malnutrition Diagnosis Progress(for reassessment Continues documentation) #1 Nutrition Diagnosis Inadequate oral intake Diagnosis Progress(for reassessment Continues documentation) Is patient on ventilator? No Is Patient Ambulatory and/or Out of Bed Yes REE-(Cameron-St. Jeor-ambulatory/OOB) [ 1515.800 [id number]] Calculation [facility] Additional Notes Protein Needs: 52-68g (1-1.3g/ kg) Fluid Needs: 1 ml/kcal Nutrition Intervention Change Diet Order: continue current Add Supplement/Snack (indicate name/kcal Ensure Clear 1 daily /protein ) Provides kCal: 220 Provides Protein (gm) 8 Goal #1 Meet at least 75% of calorie and protein needs via PO and ONS intakes Anticipated Discharge Needs: Unable to determine at this time Follow-Up By: 03/10/19 Additional Comments Follow for PO and ONS intakes
--- NOTE | 2019-03-09 16:58 | Progress Note ---
Subjective Date of service: 03/09/19 Principal diagnosis: acute renal failure, right renal mass, hypertension, dysphagia, old CVA Interval history: new pt to our service 63-year-old female with a past medical history CVA with residual dysarthria, left-sided facial droop, left-sided arm and leg weakness, hypertension, elevated cholesterol to the hospital complaining of nausea and poor by mouth tolerance for the past 4 days. Patient states that the smell of food makes her nauseated and therefore she has not been eating. She has been drinking lots of water. She denies headache, chest pain, abdominal pain, diarrhea, dysuria, or fever. She is visiting here from [place]. She denies a known history of renal insufficiency and states she is compliant with her medication. She denies pr evious abdominal surgeries MRI abdomen with and without contrast (03-08-19) IMPRESSION: 1. A nonenhancing 6.5 cm multicystic right upper pole renal mass. 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 A benign multicystic renal neoplasm is also a possibility. Malignant neoplasm is a less likely possibility given that there is no enhancement. 2. Cholelithiasis with no signs of acute cholecystitis or choledocholithiasis. Ct scan of Abdomen/Pelvis(no contrast) - 4cm cystic mass to upper pole pf right kidney + kidney stones bilat---largest 9mm, + gall stones Renal US - 5cm cystic/solid rt renal tan pt without complaints abd soft A/P rt renal mass + kidney stones + gall stones no surgical intervention needed repeat imaging 6-12 months Objective - Constitutional Vitals: Vital Signs - 12hr 03/09/19 03/09/19 03/09/19 05:35 09:38 12:15 Temperature 98.4 F 98.6 F Pulse Rate 78 86 82 Respiratory 20 20 Rate Blood Pressure 148/93 125/74 110/68 O2 Sat by Pulse 99 98 Oximetry - Labs CBC & Chem 7: 03/08/19 05:32 03/09/19 08:14 Labs: Abnormal lab results 03/09/19 Range/Units 08:14 Chloride 108.5 H (98-107) mmol/L BUN 5 L (7-17) mg/dL Glucose 110 H (65-100) mg/dL Albumin 3.3 L (3.9-5) g/dL Medications & Allergies - Medications Allergies/Adverse Reactions: Allergies No Known Allergies Allergy (Unverified 03/04/19 19:33) Home Medications: Home Medications Medication Instructions Recorded Confirmed Last Taken Type Aspirin [Aspirin BABY CHEW TAB] 81 mg PO DAILY 03/05/19 03/05/19 Unknown History Hyzaar 100-12.5 Tablet 50 mg PO DAILY 03/05/19 03/05/19 Unknown History Lipitor 20 mg PO DAILY 03/05/19 03/05/19 Unknown History NIFEdipine XL [Procardia Xl] 20 mg PO QDAY 03/05/19 03/05/19 Unknown History Active Medications: Generic Name Dose Route Start Last Admin Trade Name Freq PRN Reason Stop Dose Admin Acetaminophen 650 mg 03/05/19 01:21 Tylenol PO Q4H PRN Pain MILD(1-3)/Fever >100.5/DICKINSON Amlodipine Besylate 5 mg 03/08/19 10:00 03/09/19 09:38 Norvasc PO 5 mg QDAY MINOR Administration Aspirin 325 mg 03/05/19 10:00 03/09/19 09:38 Aspirin PO 325 mg QDAY MINOR Administration Atorvastatin Calcium 40 mg 03/05/19 22:00 03/08/19 22:44 Lipitor PO 40 mg QHS MINOR Administration Docusate Sodium 100 mg 03/05/19 10:00 03/09/19 12:45 Colace PO Not Given BID MINOR Heparin Sodium (Porcine) 5,000 unit 03/05/19 06:00 03/09/19 13:46 Heparin SUB-Q 5,000 unit Q8HR MINOR Administration Sodium Chloride 1,000 mls @ 100 mls/hr 03/08/19 02:00 Nacl 0.9% 1000 Ml IV DIRECT MINOR Ondansetron HCl 4 mg 03/05/19 01:21 Zofran IV Q8H PRN Nausea And Vomiting Oxycodone/Acetaminophen 1 tab 03/05/19 01:21 03/07/19 10:18 Percocet 5/325 PO 1 tab Q6H PRN Administration Pain, Moderate (4-6) Potassium Chloride 20 meq 03/07/19 12:00 03/09/19 09:39 K-Dur PO 20 meq QDAY MINOR Administration Sodium Chloride 10 ml 03/05/19 10:00 03/09/19 09:40 Sodium Chloride Flush Syringe 10 Ml IV 10 ml BID MINOR Administration Sodium Chloride 10 ml 03/05/19 01:21 Sodium Chloride Flush Syringe 10 Ml IV PRN PRN LINE FLUSH
[2019-03-10] MEDS: HEPARIN SUB-Q SCH ×2 (06:09→13:55)
[2019-03-10 06:12] LABS: Hematocrit 36.3 % (30.3-42.9); Hemoglobin 12.1 gm/dl (10.1-14.3); Mean Corpuscular HGB Conc 33 % (30-34); Mean Corpuscular Volume 94 fl (79-97); Platelet Count 159 K/mm3 (140-440); Red Blood Count 3.86 M/mm3 (3.65-5.03)
[2019-03-10 06:38] LABS: BUN/Creatinine Ratio 5; Blood Urea Nitrogen 5 mg/dL (7-17); Calcium 9.9 mg/dL (8.4-10.2); Hemolysis Index 2
[2019-03-10] MEDS: ASPIRIN PO SCH (10:37)
[2019-03-10] MEDS: SODIUM CHLORIDE FLUSH SYRINGE 10 ML IV SCH (10:37)
[2019-03-10] MEDS: COLACE PO SCH (10:37)
[2019-03-10] MEDS: K-DUR PO SCH (10:37)
[2019-03-10] MEDS: NORVASC PO SCH (10:37)
--- NOTE | 2019-03-10 10:59 | Progress Note ---
Assessment and Plan Acute Renal Failure likely secondary to Prerenal Azotemia secondary to volume depletion from N/V and poor oral intake: -resolved -d/c IVF -Reviewed Ct scan of Abdomen/Pelvis- Large cystic mass to upper pole of right kidney with concern for neoplasm noted. Dr. Freitas onboard -Strict I/O monitoring -Avoid Nephrotoxic agents -Renally dose medications -Will continue to monitor renal function closely Hypokalemia: -Replace PRN -BMP daily History of Hypertension: S/P Hypotension: -Monitor blood pressures History of CVA with residual left-sided weakness -On Aspirin and Atorvastatin -PT/OT/Speech onboard -As per primary will sign off, please re-consult is needed Nick Ferguson MD [phone] Subjective Date of service: 03/10/19 Principal diagnosis: acute renal failure, right renal mass, hypertension, dysphagia, old CVA Interval history: denies acute issues Objective - General Appearance General appearance: well-developed, well-nourished EENT: ATNC, PERRL, mucous membranes moist Neck: no JVD, no carotid bruit Respiratory: Present: Clear to Ascultation. Absent: Rales, Ronchi Cardiology: regular, S1S2 Gastrointestinal: normoactive bowel sounds, no tenderness, no distended Integumentary: no rash, warm and dry Neurologic: no focal deficit, no asterixis Musculoskeletal: other (no edema in BLE) Psychiatric: cooperative - Lab 03/10/19 05:20 03/10/19 05:20 Most recent lab results Calcium 9.9 mg/dL (8.4-10.2) 03/10/19 05:20 Phosphorus 1.80 mg/dL (2.5-4.5) L D 03/06/19 09:57 Magnesium 1.90 mg/dL (1.7-2.3) 03/09/19 08:14 82.7 mg/dL (0.1-20.0) H 03/05/19 09:11 59 mmol/L 03/05/19 09:11 27 mg/dL (5-11.8) H 03/05/19 09:11 Medications & Allergies - Medications Allergies/Adverse Reactions: Allergies No Known Allergies Allergy (Unverified 03/04/19 19:33) Home Medications: Home Medications Medication Instructions Recorded Confirmed Last Taken Type Aspirin [Aspirin BABY CHEW TAB] 81 mg PO DAILY 03/05/19 03/05/19 Unknown History Hyzaar 100-12.5 Tablet 50 mg PO DAILY 03/05/19 03/05/19 Unknown History Lipitor 20 mg PO DAILY 03/05/19 03/05/19 Unknown History NIFEdipine XL [Procardia Xl] 20 mg PO QDAY 03/05/19 03/05/19 Unknown History Active Medications: Generic Name Dose Route Start Last Admin Trade Name Freq PRN Reason Stop Dose Admin Acetaminophen 650 mg 03/05/19 01:21 Tylenol PO Q4H PRN Pain MILD(1-3)/Fever >100.5/DICKINSON Amlodipine Besylate 5 mg 03/08/19 10:00 03/10/19 10:37 Norvasc PO 5 mg QDAY MINOR Administration Aspirin 325 mg 03/05/19 10:00 03/10/19 10:37 Aspirin PO 325 mg QDAY MINOR Administration Atorvastatin Calcium 40 mg 03/05/19 22:00 03/09/19 21:21 Lipitor PO 40 mg QHS IMNOR Administration Docusate Sodium 100 mg 03/05/19 10:00 03/10/19 10:37 Colace PO 100 mg BID MINOR Administration Heparin Sodium (Porcine) 5,000 unit 03/05/19 06:00 03/10/19 06:09 Heparin SUB-Q 5,000 unit Q8HR MINOR Administration Sodium Chloride 1,000 mls @ 100 mls/hr 03/08/19 02:00 Nacl 0.9% 1000 Ml IV DIRECT MINOR Ondansetron HCl 4 mg 03/05/19 01:21 Zofran IV Q8H PRN Nausea And Vomiting Oxycodone/Acetaminophen 1 tab 03/05/19 01:21 03/07/19 10:18 Percocet 5/325 PO 1 tab Q6H PRN Administration Pain, Moderate (4-6) Potassium Chloride 20 meq 03/07/19 12:00 03/10/19 10:37 K-Dur PO 20 meq QDAY MINOR Administration Sodium Chloride 10 ml 03/05/19 10:00 03/10/19 10:37 Sodium Chloride Flush Syringe 10 Ml IV 10 ml BID MINOR Administration Sodium Chloride 10 ml 03/05/19 01:21 Sodium Chloride Flush Syringe 10 Ml IV PRN PRN LINE FLUSH
--- NOTE | 2019-03-10 11:18 | Discharge Summary ---
Providers - Providers Date of Admission: 03/05/19 01:21 Date of discharge: 03/10/19 Attending physician: ELIJAH QURESHI 03/05/19 00:08 Consult to Physician [CONS] Urgent Comment: Dr. Almendarez spoke with Dr. Ferguson @ [id number] Consulting Provider: ELIUD FERGUSON Physician Instructions: Reason For Exam: ARF renal mass 03/05/19 02:28 Occupational Therapy Evaluate and Treat [CONS] Routine Comment: Reason For Exam: recent stroke Physical Therapy Evaluation and Treat [CONS] Routine Comment: Reason For Exam: recent stroke Speech Therapy Evaluation and Treat [CONS] Routine Reason For Exam: recent stroke 03/05/19 09:12 Consult to Physician [CONS] Routine Comment: Consulting Provider: ROBERTO NEGRON Physician Instructions: Reason For Exam: Mass to Right kidney-concern for neoplasm 03/05/19 12:20 Speech Therapy Evaluation and Treat [CONS] Urgent Reason For Exam: h/o difficulty swallowing 03/07/19 12:01 Consult to Physician [CONS] Routine Comment: Consulting Provider: ROZ CONNORS Physician Instructions: Reason For Exam: right renal biopsy Primary care physician: [facility], Hospitalization Condition: Stable Hospital course: Patient is a 63 year old woman from the [facility] with a history of recent CVA (2 weeks ago) and hypertension who presented to the ED with poor oral intake. She c/o difficulty swallowing and generalized weakness. In the ER she noted elevated Cr and right renal mass. per IR, Dr. Connors: "Unfortunately, due to the size and the numerous abutting structures noted on CT (gallbladder, duodenum, adrenal gland, liver), this is not a percutaneous cryoablation candidate. MRI will probably better document the lesion. If there is a solid nodular component, then the risk of renal cell carcinoma is quite high (greater than 90-95%)". * CT abdomen/pelvis: Large cystic mass upper pole of the right kidney highly concerning for neoplasm, Multiple bilateral nonobstructing renal calculi, Cholelithiasis multiple small stones in the gallbladder * MRI abdomen with and without contrast: IMPRESSION: 1. A nonenhancing 6.5 cm multicystic right upper pole renal mass. 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 A benign multicystic renal neoplasm is also a possibility. Malignant neoplasm is a less likely possibility given that there is no enhancement. 2. Cholelithiasis with no signs of acute cholecystitis or choledocholithiasis. Discharge Diagnoses: ARF/vasomotor nephropathy and ATN, poa: resolved Right renal mass, cystic in nature no intervention per Urology Bilateral nonobstructing nephrolithiasis: follow up Urology Asymptomatic Cholelithiasis: follow up GI Moderate malnutrition, poa: consult Transplant Surgeon Severe hypokalemia: replete and recheck in am UTI, urine culture negative, stopped IV antibiotics and will monitor HTN, hold losartan because of ARF and hypotension, started amlodipine History of recent CVA with residual left-sided weakness, -Continue aspirin and statin, -PT/OT/ST consulted Late effect of CVA with dysphagia -Speech therapy consulted and recommended mechanical soft with thin liquid Hyperlipidemia-On statin DVT prophylaxis with heparin I spoke with daughter Sandy [phone] at bedside Disposition: DC/TX- HOME UNDER HOME [facility] Time spent for discharge: 35 minutes Core Measure Documentation - Palliative Care Palliative Care/ Comfort Measures: Not Applicable - Core Measures Any of the following diagnoses?: none - VTE Discharge Requirements Deep Vein Thrombosis/Pulmonary Embolism Present on Admission: No Has pt received <5 days of overlap therapy or INR<2.0: No Anticoagulant overlap therapy prescribed at discharge: No Contraindication No Overlap Therapy order at DC: Not Indicated Exam - Physical Exam Narrative exam: Gen: WDWN, NAD, Awake, Alert, Orientated HEENT: NCAT, EOMI, PERRL, OP Clear Neck: supple, no adenopathy, no thyromegaly, no JVD CVS/Heart: RRR, normal S1S2, pulses present bilaterally Chest/Lungs: CTA B, Symmetrical chest expansion, good air entry bilaterally GI/Abdomen: soft, NTND, good bowel sounds, no guarding or rebound /Bladder: no suprapubic tenderness, no CVA or paraspinal tenderness Extermity/Skin: no c/c/e, no obvious rash MSK: FROM x 3, left side weakness Neuro: CN 2-12 grossly intact, no new focal deficits Psych: calm - Constitutional Vitals: Temp Pulse Resp BP Pulse Ox 98.4 F 87 20 131/74 98 03/09/19 22:16 03/09/19 22:16 03/09/19 22:16 03/09/19 22:16 03/09/19 22:16 Plan Activity: up only with assistance, fall precautions, other (no strenous activity) Diet: low salt, other (mechanical soft with thin liquids) Special Instructions: record daily BP diary Follow up with: ROBERTO NEGRON MD [Staff Physician] - 14 Days PEGGY DIEGO MD [Staff Physician] - 14 Days ELIUD FERGUSON MD [Staff Physician] - 7 Days JOSHUA RICO MD [Staff Physician] - 10 Days Prescriptions: Lipitor 40 mg PO QHS #30 Docusate Sodium [Colace CAP] 100 mg PO BID #60 capsule amLODIPine [Norvasc] 5 mg PO QDAY #30 tablet oxyCODONE /ACETAMINOPHEN [Percocet 5/325 mg] 1 tab PO Q6H PRN #8 tablet PRN Reason: Pain , Severe (7-10)
--- NOTE | 2019-03-10 11:51 | Progress Note ---
Assessment and Plan 63-year-old female with recent CVA who recently presented to the hospital with acute renal failure which has resolved who now had an incidental finding of a right sided renal mass. Reviewed MRI. 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 Agree with urology assessment. This can be followed in 6-12 months to ensure stability, but no interventions are planned. This is not a malignancy. No biopsy planned. Subjective Date of service: 03/10/19 Principal diagnosis: acute renal failure, right renal mass, hypertension, dysphagia, old CVA Interval history: Doing well. No flank pain. No hematuria per patient. Objective - Constitutional General appearance: Present: no acute distress - EENT Eyes: EOM intact ENT: hearing intact - Respiratory Respiratory effort: normal - Gastrointestinal General gastrointestinal: Present: other (no CVT) - Psychiatric Psychiatric: cooperative - Labs CBC & Chem 7: 03/10/19 05:20 03/10/19 05:20 Labs: Abnormal lab results 03/10/19 Range/Units 05:20 Chloride 110.8 H (98-107) mmol/L BUN 5 L (7-17) mg/dL Medications & Allergies - Medications Allergies/Adverse Reactions: Allergies No Known Allergies Allergy (Unverified 03/04/19 19:33) Home Medications: Home Medications Medication Instructions Recorded Confirmed Last Taken Type Acetaminophen [Acetaminophen TAB] 325 mg PO Q4H PRN #15 tablet 03/10/19 Unknown Rx Aspirin 325 mg PO QDAY #30 tablet 03/10/19 Unknown Rx Docusate Sodium [Colace CAP] 100 mg PO BID #60 capsule 03/10/19 Unknown Rx Lipitor 40 mg PO QHS #30 03/10/19 Unknown Rx amLODIPine [Norvasc] 5 mg PO QDAY #30 tablet 03/10/19 Unknown Rx oxyCODONE /ACETAMINOPHEN [Percocet 1 tab PO Q6H PRN #8 tablet 03/10/19 Unknown Rx 5/325 mg] Active Medications: Generic Name Dose Route Start Last Admin Trade Name Freq PRN Reason Stop Dose Admin Acetaminophen 650 mg 03/05/19 01:21 Tylenol PO Q4H PRN Pain MILD(1-3)/Fever >100.5/DICKINSON Amlodipine Besylate 5 mg 03/08/19 10:00 03/10/19 10:37 Norvasc PO 5 mg QDAY MINOR Administration Aspirin 325 mg 03/05/19 10:00 03/10/19 10:37 Aspirin PO 325 mg QDAY MINOR Administration Atorvastatin Calcium 40 mg 03/05/19 22:00 03/09/19 21:21 Lipitor PO 40 mg QHS MINOR Administration Docusate Sodium 100 mg 03/05/19 10:00 03/10/19 10:37 Colace PO 100 mg BID MINOR Administration Heparin Sodium (Porcine) 5,000 unit 03/05/19 06:00 03/10/19 06:09 Heparin SUB-Q 5,000 unit Q8HR MINOR Administration Ondansetron HCl 4 mg 03/05/19 01:21 Zofran IV Q8H PRN Nausea And Vomiting Oxycodone/Acetaminophen 1 tab 03/05/19 01:21 03/07/19 10:18 Percocet 5/325 PO 1 tab Q6H PRN Administration Pain, Moderate (4-6) Potassium Chloride 20 meq 03/07/19 12:00 03/10/19 10:37 K-Dur PO 20 meq QDAY MINOR Administration Sodium Chloride 10 ml 03/05/19 10:00 03/10/19 10:37 Sodium Chloride Flush Syringe 10 Ml IV 10 ml BID MINOR Administration Sodium Chloride 10 ml 03/05/19 01:21 Sodium Chloride Flush Syringe 10 Ml IV PRN PRN LINE FLUSH
[2019-03-10 12:35] VITALS: BP 107/61
== END 2019-03-10 15:40 | disposition home health service (06) | DRG 683 ==
LOC: ED 19:24 → 3A 03-05 01:21
PROVIDERS: ADMIT Internal Medicine; ATTEND Internal Medicine
DX: N17.0 Acute kidney failure with tubular necrosis (principal); N39.0 Urinary tract infection, site not specified; E44.0 Moderate protein-calorie malnutrition; I69.354 Hemiplegia and hemiparesis following cerebral infarction affecting left non-dominant side; E87.6 Hypokalemia; E78.00 Pure hypercholesterolemia, unspecified; N20.0 Calculus of kidney; N28.89 Other specified disorders of kidney and ureter; E83.42 Hypomagnesemia; I10 Essential (primary) hypertension; D64.9 Anemia, unspecified; I69.311 Memory deficit following cerebral infarction; I69.322 Dysarthria following cerebral infarction; Z79.82 Long term (current) use of aspirin; Z87.891 Personal history of nicotine dependence; Z68.24 Body mass index [BMI] 24.0-24.9, adult
CPT/HCPCS: 36415; 70450; 74176; 74183; 76770; 80048; 80053; 80061; 80076; 81001; 82570; 82962; 83690; 83735; 84100; 84156; 84300; 84484; 85007; 85025; 85027; 85610; 85670; 85730; 87086; 93005; 93010; 96361; 96365; 96367; G0378; A9270-GY; J0696; J1644; J3475; J3480; J7030; J7042

== ENCOUNTER 2019-07-16 14:14 | Emergency (ER) | payer MEDICAID ==
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
[2019-07-16 15:50] LABS: Basophils % (Auto) 0.5 % (0.0-1.8); Eosinophils % (Auto) 0.3 % (0.0-4.3); Hematocrit 40.5 % (30.3-42.9); Hemoglobin 13.2 gm/dl (10.1-14.3); Lymphocytes # (Auto) 1.1 K/mm3 (1.2-5.4); Lymphocytes % (Auto) 14.4 % (13.4-35.0); Mean Corpuscular HGB Conc 33 % (30-34); Mean Corpuscular Volume 97 fl (79-97); Monocytes # (Auto) 0.5 K/mm3 (0.0-0.8); Monocytes % (Auto) 7.1 % (0.0-7.3); Platelet Count 214 K/mm3 (140-440); Red Blood Count 4.18 M/mm3 (3.65-5.03); Red Cell Distribution Width 16.2 % (13.2-15.2)
[2019-07-16 16:01] LABS: Calcium 10.7 mg/dL (8.4-10.2)
[2019-07-16 19:42] LABS: Amphetamine Screen,Urine PRESUMPTIVE NEGATIVE; Benzodiazepines Screen,Urine PRESUMPTIVE NEGATIVE; Cannabinoid Screen,Urine PRESUMPTIVE NEGATIVE; Cocaine Screen,Urine PRESUMPTIVE NEGATIVE; Methadone Screen,Urine PRESUMPTIVE NEGATIVE; Opiate Screen,Urine PRESUMPTIVE NEGATIVE
[2019-07-16 19:50] LABS: Amorphous Crystals,Urine Few; Bilirubin,Urine NEG (Negative); Blood,Urine LG (Negative); Color,Urine Yellow (Yellow); Mucus,Urine 2+ /HPF; Urobilinogen,Urine < 2.0 mg/dL (<2.0)
[2019-07-16 19:51] LABS: WBC,Urine > 182.0 /HPF (0.0-6.0)
[2019-07-16] MEDS ORDERED: LEVAQUIN PO ONE (20:09)
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
[2019-07-17 21:13] VITALS: BP 117/71
== END 2019-07-17 21:35 | disposition other institution (70) ==
LOC: ED 14:14 → EEVIPCON 14:14 → ED 07-17 21:35
DX: F22 Delusional disorders (principal); N39.0 Urinary tract infection, site not specified; I10 Essential (primary) hypertension; E78.00 Pure hypercholesterolemia, unspecified; Z86.73 Personal history of transient ischemic attack (TIA), and cerebral infarction without residual deficits; Z87.891 Personal history of nicotine dependence
CPT/HCPCS: 36415; 80048; 80307; 80320; 81001; 85025; 93005; 93010; G0480

== ENCOUNTER 2021-04-21 14:05 | Inpatient (IN) | payer MEDICAID ==
[2021-04-21] MEDS ORDERED: SODIUM CHLORIDE 0.9% 1000 ML 1,000 ML IV ONE ×3 (14:49→18:56)
[2021-04-21] MEDS ORDERED: levETIRAcetam 1000 MG/NS 0.75% 1,000 MG/100 ML BAG IV ONE (14:56)
[2021-04-21] MEDS ORDERED: LORazepam 2 MG/ML VIAL ONE ×2 (14:56→15:06)
--- NOTE | 2021-04-21 14:56 | Emergency Department Report ---
HPI - General Chief Complaint: Neuro Symptoms/Deficit Time Seen by Provider: 04/21/21 14:38 - HPI HPI: Room 4 The patient is a 66-year-old female present with a chief complaint of altered mental status. Per EMS the patient has a history of previous CVA with left- sided weakness. Family reported that the patient developed increased left-sided weakness 3 days ago. The patient was taken to the emergency department but refused to be seen so family brought the patient back home. The following day the patient "stopped speaking" and family eventually brought the patient into the ED today as there was no improvement. Patient opens her eyes to sternal rub and answers some questions but appears confused. ED Past Medical Hx - Past Medical History Previous Medical History?: Yes Hx Hypertension: Yes Hx CVA: Yes (left side deficits) Additional medical history: high cholesterol - Family History Family history: no significant - Social History Smoking Status: Unknown if ever smoked - Medications Home Medications: Home Medications Medication Instructions Recorded Confirmed Last Taken Type Acetaminophen [Acetaminophen TAB] 325 mg PO Q4H PRN #15 tablet 03/10/19 Unknown Rx Aspirin 325 mg PO QDAY #30 tablet 03/10/19 Unknown Rx Docusate Sodium [Colace CAP] 100 mg PO BID #60 capsule 03/10/19 Unknown Rx Lipitor 40 mg PO QHS #30 03/10/19 Unknown Rx amLODIPine 5 mg PO QDAY #30 tablet 03/10/19 Unknown Rx oxyCODONE /ACETAMINOPHEN [Percocet 1 tab PO Q6H PRN #8 tablet 03/10/19 Unknown Rx 5/325 mg] ED Review of Systems ROS: Stated complaint: ALTERED MENTA STATUS Other details as noted in HPI Comment: Unobtainable due to pts medical conditions Physical Exam - Physical Exam Vital Signs: Vital Signs 04/21/21 14:32 Temperature 98.2 F Pulse Rate 125 H Respiratory 35 H Rate Blood Pressure 112/71 O2 Sat by Pulse 67 L Oximetry Physical Exam: GENERAL: The patient is well-developed well-nourished female lying on stretcher opening her eyes to sternal rub. [] HEENT: Normocephalic. Atraumatic. Extraocular motions are intact. Patient has moist mucous membranes. NECK: Supple. Trachea midline CHEST/LUNGS: Clear to auscultation. There is no respiratory distress noted. HEART/CARDIOVASCULAR: Regular. There is tachycardia. There is no gallop rub or murmur. ABDOMEN: Abdomen is soft, nontender. Patient has normal bowel sounds. There is no abdominal distention. SKIN: There is no rash. There is no edema. There is no diaphoresis. NEURO: The patient is lethargic and appears confused. Patient is not cooperative with neurologic exam. GCS 12 MUSCULOSKELETAL:There is no evidence of acute injury. ED Course Vital Signs 04/21/21 14:32 Temperature 98.2 F Pulse Rate 125 H Respiratory 35 H Rate Blood Pressure 112/71 O2 Sat by Pulse 67 L Oximetry - Reevaluation(s) Reevaluation #1: 04/21/21 15:07 Informed by nursing the patient was seizing. Patient had a generalized tonic- clonic seizure with eyes deviated to the left for approximately 2 minutes. Stopped after Ativan. Patient was found to be hypoxic and subsequently the decision to intubate using RSI was made - Intubation Time Out Performed: No Sedative: other (Ativan 2 mg IV) Paralytic: Succinylcholine Mg Given: 100 Laryngoscope: Brandon Size: 3 ET Tube Size: 7 Tube Secured Depth (cm): 21 Tube Secured Location: lips Tube Placement Confirmation: visualized tube passing t, equal breath sounds bilat, no breath sounds over epi, confirmation by capnometr Patient Tolerated Procedure: no complications Intubation Complications: none ED Medical Decision Making - Lab Data Result diagrams: 04/21/21 16:32 04/21/21 16:32 - EKG Data -: EKG Interpreted by Me EKG shows normal: sinus rhythm Rate: tachycardia (123 bpm) - EKG Data When compared to previous EKG there are: previous EKG unavailable Interpretation: other (No ischemic changes seen) - Radiology Data Radiology results: pending (CTA chest), report reviewed (CT head), image reviewed (Chest x-ray, CT head) interpreted by me: Chest x-ray-ET tube in appropriate position. No definite focal infiltrates, no pneumothorax seen [facility] [address] [place] [address] Cat Scan Report Signed Patient: TYSHAWN DARBY MR#: [id number] : 1955 Acct:[id number] Age/Sex: 66 / F ADM Date: 04/21/21 Loc: ED Attending Dr: Ordering Physician: FIORDALIZA JEFFRIES MD Date of Service: 04/21/21 Procedure(s): CT head/brain wo con Accession Number(s): [id number] cc: FIORDALIZA JEFFRIES MD NONENHANCED CT SCAN OF THE HEAD: INDICATION / CLINICAL INFORMATION: 66 years Female; Altered mental status. TECHNIQUE: Routine CT head without contrast. All CT scans at this location are performed using CT dose reduction for ALARA by means of automated exposure control. COMPARISON: CT scan of the head from 06/04/2019 FINDINGS: BRAIN / INTRACRANIAL CONTENTS: No acute hemorrhage, mass effect, midline shift, hydrocephalus, or acute, large territorial infarct. Encephalomalacia in the right temporal lobe right frontal operculum and right parietal lobe; unchanged chronic ischemic changes in the corpus striatum bilaterally more on the right side CRANIOCERVICAL JUNCTION: No significant abnormality. ORBITS: No significant abnormality of visualized orbits. SINUSES / MASTOIDS: Mucosal thickening in the right sphenoid sinus ADDITIONAL FINDINGS: None. IMPRESSION: Encephalomalacia in the right temporal lobe, frontal lobe; no acute/subacute parenchymal lesions Signer Name: Diaz Ibarra MD Signed: 04/21/2021 5:46 PM Workstation Name: [id number] Transcribed By: BS Dictated By: Diaz Carvajal MD Electronically Authenticated By: Diaz Carvajal MD Signed Date/Time: 04/21/211745 DD/ 39 TD/TT: Print Cancel [facility] [address] [place] [address] XRay Report Signed Patient: TYSHAWN DARBY MR#: [id number] : 1955 Acct:[id number] Age/Sex: 66 / F ADM Date: 04/21/21 Loc: ED Attending Dr: Ordering Physician: FIORDALIZA JEFFRIES MD Date of Service: 04/21/21 Procedure(s): XR chest 1V ap Accession Number(s): [id number] cc: FIORDALIZA JEFFRIES MD Fluoro Time In Minutes: CHEST 1 VIEW INDICATION / CLINICAL INFORMATION: Altered mental status, tachycardia, ETT,NGT PLACEMENT. FINDINGS: SUPPORT DEVICES: The endotracheal tube and esophagogastric tube both project in good position.. HEART / MEDIASTINUM: No significant abnormality. LUNGS / PLEURA: Extensive interstitial opacity scattered throughout both lungs, possibly chronic Signer Name: Teo Majano MD Signed: 04/21/2021 3:46 PM Workstation Name: [id number] Transcribed By: BC Dictated By: Teo Majano MD Electronically Authenticated By: Teo Majano MD Signed Date/Time: 04/21/211545 DD/ 45 TD/TT: Print Cancel - Differential Diagnosis CVA, postictal state, seizures, altered mental status Critical care attestation.: If time is entered above; I have spent that time in minutes in the direct care of this critically ill patient, excluding procedure time. ED Disposition Clinical Impression: Altered mental status, Seizures, Rhabdomyolysis Disposition: OP ADMIT IP TO THIS HOSP Is pt being admited?: Yes Does the pt Need Aspirin: Yes Condition: Fair Referrals: PRIMARY CARE, [Primary Care Provider] - 3-5 Days Time of Disposition: 19:43 (Hospitalist notified (Dr. Jones))
[2021-04-21] MEDS ORDERED: SUCCINYLCHOLINE CHLORIDE 200 MG/10 ML INJ MDV ONE (15:01)
[2021-04-21] MEDS ORDERED: LORazepam 2 MG/ML VIAL IV ONE ×2 (15:13)
[2021-04-21] MEDS ORDERED: fentaNYL DRIP Premix 2,000 MCG/100 ML BAG IV ONE (15:14)
[2021-04-21] MEDS ORDERED: MINERAL OIL/PETROLATUM, WHITE OPHTH OINT 3.5 GM OU PRN (15:46)
[2021-04-21] MEDS ORDERED: LIP THERAPY VASELINE TP PRN (15:46)
--- NOTE | 2021-04-21 15:51 | XRay Report ---
CHEST 1 VIEW INDICATION / CLINICAL INFORMATION: Altered mental status, tachycardia, ETT,NGT PLACEMENT. FINDINGS: SUPPORT DEVICES: The endotracheal tube and esophagogastric tube both project in good position.. HEART / MEDIASTINUM: No significant abnormality. LUNGS / PLEURA: Extensive interstitial opacity scattered throughout both lungs, possibly chronic Signer Name: Teo Majano MD Signed: 04/21/2021 3:46 PM Workstation Name: [id number]
[2021-04-21] MEDS: fentaNYL DRIP Premix 2,000 MCG/100 ML BAG IV SCH (15:55)
[2021-04-21] MEDS ORDERED: SUCCINYLCHOLINE CHLORIDE 200 MG/10 ML INJ MDV IV ONE (17:02)
[2021-04-21 17:05] LABS: Bilirubin,Urine NEG (Negative); Blood,Urine LG (Negative); Color,Urine Yellow (Yellow); Mucus,Urine FEW /HPF
[2021-04-21 17:06] LABS: Hematocrit 48.6 % (30.3-42.9); Hemoglobin 16.2 gm/dl (10.1-14.3); Mean Corpuscular HGB Conc 33 % (30-34); Mean Corpuscular Volume 93 fl (79-97); Red Blood Count 5.22 M/mm3 (3.65-5.03); Red Cell Distribution Width 15.8 % (13.2-15.2)
[2021-04-21 17:08] LABS: INR 0.92 (0.87-1.13); Platelet Count 322 K/mm3 (140-440)
[2021-04-21 17:12] LABS: Amphetamine Screen,Urine Negative; Benzodiazepines Screen,Urine Negative; Cannabinoid Screen,Urine Negative; Cocaine Screen,Urine Negative; Methadone Screen,Urine Negative; Opiate Screen,Urine Negative
[2021-04-21 17:27] LABS: Albumin 3.6 g/dL (3.9-5); Calcium 9.3 mg/dL (8.4-10.2); Creatine Kinase MB 22.4 ng/mL (0.0-4.0)
[2021-04-21 17:37] LABS: Free T4 (Free Thyroxine) 1.05 ng/dL (0.76-1.46)
--- NOTE | 2021-04-21 17:50 | Cat Scan Report ---
NONENHANCED CT SCAN OF THE HEAD: INDICATION / CLINICAL INFORMATION: 66 years Female; Altered mental status. TECHNIQUE: Routine CT head without contrast. All CT scans at this location are performed using CT dos e reduction for ALARA by means of automated exposure control. COMPARISON: CT scan of the head from 06/04/2019 FINDINGS: BRAIN / INTRACRANIAL CONTENTS: No acute hemorrhage, mass effect, midline shift, hydrocephalus, or acu te, large territorial infarct. Encephalomalacia in the right temporal lobe right frontal operculum an d right parietal lobe; unchanged chronic ischemic changes in the corpus striatum bilaterally more on the right side CRANIOCERVICAL JUNCTION: No significant abnormality. ORBITS: No significant abnormality of visualized orbits. SINUSES / MASTOIDS: Mucosal thickening in the right sphenoid sinus ADDITIONAL FINDINGS: None. IMPRESSION: Encephalomalacia in the right temporal lobe, frontal lobe; no acute/subacute parenchymal lesions Signer Name: Diaz Ibarra MD Signed: 04/21/2021 5:46 PM Workstation Name: [id number]
[2021-04-21 18:31] LABS: Chol/HDL Ratio 6.11 %
[2021-04-21] MEDS ORDERED: ASPIRIN 300 MG RECT SUPP PR ONE (19:43)
[2021-04-21] MEDS ORDERED: ONDANSETRON 4 MG/2 ML INJ IV PRN (21:11)
[2021-04-21] MEDS ORDERED: HYDROmorphone 1 MG/1 ML INJ IV PRN (21:26)
[2021-04-21] MEDS ORDERED: MORPHINE 2 MG/1 ML INJ IV PRN (21:26)
[2021-04-21] MEDS ORDERED: cefTRIAXone/NS 2 GM/100 ML 2 GM/100 ML BAG IV SCH (22:00)
[2021-04-21] MEDS ORDERED: HEPARIN 5,000 UNIT/1 ML VIAL SUB-Q SCH (22:00)
--- NOTE | 2021-04-21 22:14 | Cat Scan Report ---
CTA CHEST WITH IV CONTRAST INDICATION: Hypoxia, altered mental status. TECHNIQUE: Axial CT images were obtained through the chest after injection of 100 cc Omnipaque 350 IV contrast. 3 plane MIP reconstructions were produced. All CT scans at this location are performed using CT dose reduction for ALARA by means of automated exposure control. COMPARISON: None available. FINDINGS: Pulmonary Arteries: There are multiple segmental emboli in the left lower lobe. No right-sided emboli are identified. Small segmental emboli are also present in the left upper lobe. Lungs: There is bilateral extensive chronic appearing interstitial lung disease without superimposed acute consolidation. Trachea and Bronchi: Endotracheal tube in place. Heart and Pericardium: No significant abnormality. Vasculature: No significant abnormality. Lymphatics: No lymphadenopathy. Additional Findings: None. Upper Abdomen: There is a complex lesion in the upper right kidney. Skeletal Structures: No acute findings or aggressive bone lesions. IMPRESSION: 1. Multiple segmental emboli in the left lung pulmonary arteries. 2. Bilateral chronic appearing extensive interstitial lung disease. 3. Large complex cystic lesion in the upper pole the right kidney that either represents a severely d ilated renal collecting system or complex renal cysts. Further evaluation with renal ultrasound recom mended. Findings discussed with the hospitalist caring for the patient at 9:10 PM central time. Signer Name: Deacon Spangler MD Signed: 04/21/2021 10:10 PM Workstation Name: [id number]
[2021-04-21 22:22] LABS: Total Cells Counted 100
[2021-04-21 22:23] LABS: Anisocytosis 1+; Platelet Estimate Consistent w Auto
--- NOTE | 2021-04-22 00:03 | History and Physical Report ---
History of Present Illness Date of examination: 04/21/21 Date of admission: April 21, 2021 Chief complaint: New onset seizures since 1 hour History of present illness: 66-year-old female with history of hypertension and hyperlipidemia brought in by EMS for altered mental status and new onset seizures. Patient has left-sided weakness from a prior CVA but the family says that there is increased left-sided weakness 3 days ago. Patient initially came to the emergency department yesterday but was refused to be seen and patient family took the patient back home. Now comes back again for evaluation and treatment. Patient also had aphasia yesterday because of which the family brought the patient today for evaluation and treatment. In the emergency room patient developed seizures which were persistent and generalized tonic-clonic. Patient was intubated for protection of airway. By the emergency room physician Dr. JEFFRIES. As per family the seizures are new sym ptoms - Past Medical History --Previous Medical History?: Yes --Hypertension: Yes --CVA: Yes (left side deficits) --Additional medical history: high cholesterol - Surgical history unavailable - Family History Family history: no significant - Social History Smoking Status: Unknown if ever smoked - Medications Home Medications: Home Medications Medication Instructions Recorded Confirmed Last Taken Type Acetaminophen [Acetaminophen TAB] 325 mg PO Q4H PRN #15 tablet 03/10/19 Unknown Rx Aspirin 325 mg PO QDAY #30 tablet 03/10/19 Unknown Rx Docusate Sodium [Colace CAP] 100 mg PO BID #60 capsule 03/10/19 Unknown Rx Lipitor 40 mg PO QHS #30 03/10/19 Unknown Rx amLODIPine 5 mg PO QDAY #30 tablet 03/10/19 Unknown Rx oxyCODONE /ACETAMINOPHEN [Percocet 1 tab PO Q6H PRN #8 tablet 03/10/19 Unknown Rx 5/325 mg] Review of Systems ROS: Constitutional no weight loss or weight gain no fever or chills HEENT:Unremakable Neck no neck stiffness no lymph gland enlargement Chest and lungs no shortness of breath cough or wheezing CVS no chest pain or shortness of breath GI no nausea no vomiting no diarrhea Genitourinary system no dysuria no flank pain Musculoskeletal system no muscle pains no 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 pains 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 and increasing left-sided weakness Skin no rash no itching Psychiatric no depression no homicidal or suicidal tendencies Hematologic no lymphedema or bruising Endocrine no polydipsia no polyuria no cold intolerance no heat intolerance Medications and Allergies Allergies Allergy/AdvReac Type Severity Reaction Status Date / Time No Known Allergies Allergy Unverified 03/04/19 19:33 Home Medications Medication Instructions Recorded Confirmed Last Taken Type Acetaminophen [Acetaminophen TAB] 325 mg PO Q4H PRN #15 tablet 03/10/19 Unknown Rx Aspirin 325 mg PO QDAY #30 tablet 03/10/19 Unknown Rx Docusate Sodium [Colace CAP] 100 mg PO BID #60 capsule 03/10/19 Unknown Rx Lipitor 40 mg PO QHS #30 03/10/19 Unknown Rx amLODIPine 5 mg PO QDAY #30 tablet 03/10/19 Unknown Rx oxyCODONE /ACETAMINOPHEN [Percocet 1 tab PO Q6H PRN #8 tablet 03/10/19 Unknown Rx 5/325 mg] Active Meds: Active Medications Acetaminophen (Acetaminophen 325 Mg Tab) 650 mg PO Q4H PRN PRN Reason: Pain MILD(1-3)/Fever >100.5/DICKINSON Famotidine (Famotidine 20 Mg/2 Ml Inj) 20 mg IV BID MINOR Fentanyl (Fentanyl 100 Mcg/2 Ml Inj) 50 mcg IV Q10MIN PRN PRN Reason: ANALGESIA Heparin Sodium (Porcine) (Heparin 5,000 Unit/1 Ml Vial) 5,000 unit SUB-Q Q12HR MINOR Hydromorphone HCl (Hydromorphone 1 Mg/1 Ml Inj) 0.5 mg IV Q3H PRN PRN Reason: Pain , Severe (7-10) Hydrophilic Ointment (Lip Therapy Vaseline) 1 applic TP Q2HR PRN PRN Reason: Dry Lips Fentanyl Citrate (Fentanyl Drip Premix) 2,000 mcg in 100 mls @ 3.515 mls/hr IV TITR MINOR; Protocol Last Admin: 04/21/21 15:55 Dose: 1 mcg/kg/hr, 3.515 mls/hr Documented by: Sodium Chloride (Nacl 0.9% 1000 Ml) 1,000 mls @ 100 mls/hr IV DIRECT MINOR Levetiracetam 750 mg/ Dextrose 107.5 mls @ 400 mls/hr IV Q12H MINOR Ceftriaxone Sodium (Rocephin/Ns 2 Gm/100 Ml) 2 gm in 100 mls @ 200 mls/hr IV Q24H MINOR; Protocol Morphine Sulfate (Morphine 2 Mg/1 Ml Inj) 2 mg IV Q4H PRN PRN Reason: Pain, Moderate (4-6) Multi-Ingred Cream/Lotion/Oil/Oint (Mineral Oil/Petrolatum, White Ophth Oint 3.5 Gm) 1 applic OU Q4HR PRN PRN Reason: Dry Eye(s) Ondansetron HCl (Ondansetron 4 Mg/2 Ml Inj) 4 mg IV Q8H PRN PRN Reason: Nausea And Vomiting Senna/Docusate Sodium (Sennosides/Docusate Sodium 8.6/50 Mg Tab) 1 tab FEEDTUBE BID MINOR Sodium Chloride (Sodium Chloride 0.9% 10 Ml Flush Syringe) 10 ml IV BID MINOR Sodium Chloride (Sodium Chloride 0.9% 10 Ml Flush Syringe) 10 ml IV PRN PRN PRN Reason: LINE FLUSH Exam - Constitutional Vitals: Temp Pulse Resp BP Pulse Ox 98.2 F 108 H 19 100/60 98 04/21/21 14:32 04/21/21 20:09 04/21/21 18:28 04/21/21 20:09 04/21/21 20:09 General appearance: Present: no acute distress, well-nourished - EENT Eyes: Present: PERRL ENT: hearing intact, clear oral mucosa - Neck Neck: Present: supple, normal ROM - Respiratory Respiratory effort: normal Respiratory: bilateral: CTA - Cardiovascular Heart rate: 78 Rhythm: regular Heart Sounds: Present: S1 & S2. Absent: rub, click - Extremities Extremities: pulses symmetrical, No edema Peripheral Pulses: within normal limits - Abdominal General gastrointestinal: Present: soft, non-tender, non-distended, normal bowel sounds Female genitourinary: Present: normal - Integumentary Integumentary: Present: clear, warm, dry - Musculoskeletal Musculoskeletal: gait normal, strength equal bilaterally - Psychiatric Psychiatric: appropriate mood/affect, intact judgment & insight - Neurologic Neurologic: CNII-XII intact, moves all extremities HEART Score - HEART Score History: Slightly suspicious Age: 45-65 Risk factors: 1-2 risk factors Troponin: Troponin T 0.055 ng/mL (0.00-0.029) H 04/21/21 16:32 - Critical Actions Critical Actions: 0-3 pts:0.9-1.7%risk of adverse cardiac event.Candidate for discharge Results - Labs CBC & Chem 7: 04/22/21 05:29 04/21/21 16:32 Labs: Laboratory Last Values WBC 8.4 K/mm3 (4.5-11.0) 04/21/21 16:32 RBC 5.22 M/mm3 (3.65-5.03) H 04/21/21 16:32 Hgb 16.2 gm/dl (10.1-14.3) H 04/21/21 16:32 Hct 48.6 % (30.3-42.9) H 04/21/21 16:32 MCV 93 fl (79-97) 04/21/21 16:32 MCH 31 pg (28-32) 04/21/21 16:32 MCHC 33 % (30-34) 04/21/21 16:32 RDW 15.8 % (13.2-15.2) H 04/21/21 16:32 Plt Count 322 K/mm3 (140-440) 04/21/21 16:32 Add Manual Diff Complete 04/21/21 16:32 Total Counted 100 04/21/21 16:32 Seg Neuts % (Manual) 79.0 % (40.0-70.0) H 04/21/21 16:32 Lymphocytes % (Manual) 13.0 % (13.4-35.0) L 04/21/21 16:32 Monocytes % (Manual) 8.0 % (0.0-7.3) H 04/21/21 16:32 Nucleated RBC % Not Reportable 04/21/21 16:32 Seg Neutrophils # Man 6.6 K/mm3 (1.8-7.7) 04/21/21 16:32 Band Neutrophils # 0.0 K/mm3 04/21/21 16:32 Lymphocytes # (Manual) 1.1 K/mm3 (1.2-5.4) L 04/21/21 16:32 Abs React Lymphs (Man) 0.0 K/mm3 04/21/21 16:32 Monocytes # (Manual) 0.7 K/mm3 (0.0-0.8) 04/21/21 16:32 Eosinophils # (Manual) 0.0 K/mm3 (0.0-0.4) 04/21/21 16:32 Basophils # (Manual) 0.0 K/mm3 (0.0-0.1) 04/21/21 16:32 Metamyelocytes # 0.0 K/mm3 04/21/21 16:32 Myelocytes # 0.0 K/mm3 04/21/21 16:32 Promyelocytes # 0.0 K/mm3 04/21/21 16:32 Blast Cells # 0.0 K/mm3 04/21/21 16:32 WBC Morphology Not Reportable 04/21/21 16:32 Hypersegmented Neuts Not Reportable 04/21/21 16:32 Hyposegmented Neuts Not Reportable 04/21/21 16:32 Hypogranular Neuts Not Reportable 04/21/21 16:32 Smudge Cells Not Reportable 04/21/21 16:32 Toxic Granulation Not Reportable 04/21/21 16:32 Toxic Vacuolation Not Reportable 04/21/21 16:32 Dohle Bodies Not Reportable 04/21/21 16:32 Pelger-Huet Anomaly Not Reportable 04/21/21 16:32 Brenda Rods Not Reportable 04/21/21 16:32 Platelet Estimate Consistent w auto 04/21/21 16:32 Clumped Platelets Not Reportable 04/21/21 16:32 Plt Clumps, EDTA Not Reportable 04/21/21 16:32 Large Platelets Not Reportable 04/21/21 16:32 Giant Platelets Not Reportable 04/21/21 16:32 Platelet Satelliting Not Reportable 04/21/21 16:32 Plt Morphology Comment Not Reportable 04/21/21 16:32 RBC Morphology Not Reportable 04/21/21 16:32 Dimorphic RBCs Not Reportable 04/21/21 16:32 Polychromasia Not Reportable 04/21/21 16:32 Hypochromasia Not Reportable 04/21/21 16:32 Poikilocytosis Not Reportable 04/21/21 16:32 Anisocytosis 1+ 04/21/21 16:32 Microcytosis Not Reportable 04/21/21 16:32 Macrocytosis Not Reportable 04/21/21 16:32 Spherocytes Not Reportable 04/21/21 16:32 Pappenheimer Bodies Not Reportable 04/21/21 16:32 Sickle Cells Not Reportable 04/21/21 16:32 Target Cells Not Reportable 04/21/21 16:32 Tear Drop Cells Not Reportable 04/21/21 16:32 Ovalocytes Not Reportable 04/21/21 16:32 Helmet Cells Not Reportable 04/21/21 16:32 [place] Bodies Not Reportable 04/21/21 16:32 [place] Rings Not Reportable 04/21/21 16:32 Chay Cells Not Reportable 04/21/21 16:32 Bite Cells Not Reportable 04/21/21 16:32 Crenated Cell Not Reportable 04/21/21 16:32 Elliptocytes Not Reportable 04/21/21 16:32 Acanthocytes (Spur) Not Reportable 04/21/21 16:32 Rouleaux Not Reportable 04/21/21 16:32 Hemoglobin C Crystals Not Reportable 04/21/21 16:32 Schistocytes Not Reportable 04/21/21 16:32 Malaria parasites Not Reportable 04/21/21 16:32 Uli Bodies Not Reportable 04/21/21 16:32 Hem Pathologist Commnt No 04/21/21 16:32 PT 12.9 Sec. (12.2-14.9) 04/21/21 16:32 INR 0.92 (0.87-1.13) 04/21/21 16:32 D-Dimer 1522.26 ng/mlDDU (0-234) H 04/21/21 16:30 ABG pH 7.352 (7.320-7.450) 04/21/21 15:42 POC ABG pCO2 39.6 mmHg (32.0-48.0) 04/21/21 15:42 POC ABG pO2 69.9 mmHg (83-108) L 04/21/21 15:42 POC ABG HCO3 21.5 04/21/21 15:42 ABG O2 Saturation 91.2 (0-100) 04/21/21 15:42 POC ABG Base Excess -3.7 04/21/21 15:42 ABG Hemoglobin 13.7 (12.0-17.5) 04/21/21 15:42 ABG Oxyhemoglobin 90.2 (94-98) L 04/21/21 15:42 ABG Methemoglobin 0.3 (0.0-1.5) 04/21/21 15:42 ABG Sodium 140.5 mmol/L (136.0-145.0) 04/21/21 15:42 ABG Potassium 4.2 mmol/L (3.40-4.50) 04/21/21 15:42 ABG Chloride 111.0 mmol/L (98-107) H 04/21/21 15:42 ABG Glucose 148 mg/dL (65-95) H 04/21/21 15:42 Carboxyhemoglobin 0.8 (0.5-1.5) 04/21/21 15:42 FiO2 % 100.0 04/21/21 15:42 Sodium 142 mmol/L (137-145) 04/21/21 16:32 Potassium 4.6 mmol/L (3.6-5.0) 04/21/21 16:32 Chloride 103.6 mmol/L (98-107) 04/21/21 16:32 Carbon Dioxide 21 mmol/L (22-30) L 04/21/21 16:32 Anion Gap 22 mmol/L 04/21/21 16:32 BUN 24 mg/dL (7-17) H 04/21/21 16:32 Creatinine 1.3 mg/dL (0.6-1.2) H 04/21/21 16:32 Estimated GFR 50 ml/min 04/21/21 16:32 BUN/Creatinine Ratio 18 % 04/21/21 16:32 Glucose 130 mg/dL (65-100) H 04/21/21 16:32 Calcium 9.3 mg/dL (8.4-10.2) 04/21/21 16:32 Total Bilirubin 0.50 mg/dL (0.1-1.2) 04/21/21 16:32 AST 129 units/L (5-40) H 04/21/21 16:32 ALT 61 units/L (7-56) H 04/21/21 16:32 Alkaline Phosphatase 94 units/L (35-129) 04/21/21 16:32 Ammonia 56.0 umol/L (25-60) 04/21/21 16:32 Total Creatine Kinase 3055 units/L (30-135) H 04/21/21 16:32 CK-MB (CK-2) 22.4 ng/mL (0.0-4.0) H 04/21/21 16:32 CK-MB (CK-2) Rel Index 0.7 (0-4) 04/21/21 16:32 Troponin T 0.055 ng/mL (0.00-0.029) H 04/21/21 16:32 Total Protein 7.6 g/dL (6.3-8.2) 04/21/21 16:32 Albumin 3.6 g/dL (3.9-5) L 04/21/21 16:32 Albumin/Globulin Ratio 0.9 % 04/21/21 16:32 Triglycerides 235 mg/dL (2-149) H 04/21/21 16:32 Cholesterol 220 mg/dL (50-199) H 04/21/21 16:32 LDL Cholesterol Direct 142 mg/dL (50-130) H 04/21/21 16:32 HDL Cholesterol 36 mg/dL (40-59) L 04/21/21 16:32 Cholesterol/HDL Ratio 6.11 % 04/21/21 16:32 TSH 0.876 mlU/mL (0.270-4.200) 04/21/21 16:32 Free T4 1.05 ng/dL (0.76-1.46) 04/21/21 16:32 Arterial Blood Glucose 148 mg/dL (65-95) H 04/21/21 15:42 Arterial Blood Ionized Calcium 4.5 mg/dL (4.6-5.3) L 04/21/21 15:42 Urine Color Yellow (Yellow) 04/21/21 Unknown Urine Turbidity Clear (Clear) 04/21/21 Unknown Urine pH 5.0 (5.0-7.0) 04/21/21 Unknown Ur Specific [place] 1.014 (1.003-1.030) 04/21/21 Unknown Urine Protein 100 mg/dl mg/dL (Negative) 04/21/21 Unknown Urine Glucose (UA) Neg mg/dL (Negative) 04/21/21 Unknown Urine Ketones Tr mg/dL (Negative) 04/21/21 Unknown Urine Blood Lg (Negative) 04/21/21 Unknown Urine Nitrite Neg (Negative) 04/21/21 Unknown Urine Bilirubin Neg (Negative) 04/21/21 Unknown Urine Urobilinogen 2.0 mg/dL (<2.0) 04/21/21 Unknown Ur Leukocyte Esterase Neg (Negative) 04/21/21 Unknown Urine WBC (Auto) 5.0 /HPF (0.0-6.0) 04/21/21 Unknown Urine RBC (Auto) 1.0 /HPF (0.0-6.0) 04/21/21 Unknown U Epithel Cells (Auto) 1.0 /HPF (0-13.0) 04/21/21 Unknown Urine Mucus Few /HPF 04/21/21 Unknown Urine Opiates Screen Negative 04/21/21 Unknown Urine Methadone Screen Negative 04/21/21 Unknown Ur Barbiturates Screen Negative 04/21/21 Unknown Ur Phencyclidine Scrn Negative 04/21/21 Unknown Ur Amphetamines Screen Negative 04/21/21 Unknown U Benzodiazepines Scrn Negative 04/21/21 Unknown Urine Cocaine Screen Negative 04/21/21 Unknown U Marijuana (THC) Screen Negative 04/21/21 Unknown Drugs of Abuse Note Disclamer 04/21/21 Unknown Plasma/Serum Alcohol < 0.01 % (0-0.07) 04/21/21 16:32 Short CBC 04/21/21 04/22/21 04/22/21 Range/Units 16:32 00:32 05:29 WBC 8.4 8.8 (4.5-11.0) K/mm3 Hgb 16.2 H 14.8 H 15.4 H (10.1-14.3) gm/dl Hct 48.6 H 44.4 H 45.8 H (30.3-42.9) % Plt Count 322 248 259 (140-440) K/mm3 BMP 04/21/21 16:32 Sodium 142 Potassium 4.6 Chloride 103.6 Carbon Dioxide 21 L BUN 24 H Creatinine 1.3 H Glucose 130 H Calcium 9.3 Cardiac Enzymes 04/21/21 Range/Units 16:32 Total Creatine Kinase 3055 H (30-135) units/L CK-MB (CK-2) 22.4 H (0.0-4.0) ng/mL Troponin T 0.055 H (0.00-0.029) ng/mL Liver Function 04/21/21 Range/Units 16:32 Total Bilirubin 0.50 (0.1-1.2) mg/dL AST 129 H (5-40) units/L ALT 61 H (7-56) units/L Alkaline Phosphatase 94 (35-129) units/L Albumin 3.6 L (3.9-5) g/dL Urine 04/21/21 Range/Units Unknown Urine Color Yellow (Yellow) Urine pH 5.0 (5.0-7.0) Ur Specific [place] 1.014 (1.003-1.030) Urine Protein 100 mg/dl (Negative) mg/dL Urine Glucose (UA) Neg (Negative) mg/dL - Imaging and Cardiology EKG: report reviewed CT scan - chest: report reviewed CT Scan - head: report reviewed Imaging and Cardiology: Chest x-ray Extensive interstitial opacities scattered throughout both lungs possibly c hronic Head CT encephalomalacia in the right temporal lobe frontal lobe. No acute subacute parenchymal lesions. Chest CTA Multiple segmental emboli in the left lung pulmonary arteries Bilateral chronic appearing extensive interstitial lung disease Large complex cystic lesion in the upper pole of the right kidney likely represents a severely dilated renal collecting system or complete renal cysts. Further evaluation with renal ultrasound recommended. Assessment and Plan Advance Directives: Yes (Full code) VTE prophylaxis?: Chemical Plan of care discussed with patient/family: Yes - Patient Problems (1) New onset seizure Current Visit: Yes Status: Acute Plan to address problem: Patient was intubated in the emergency room for protection of airway Keppra 1000 mg IV x1 given Patient initiated on IV Keppra 750 mg every 12 Neurology consult requested May need EEG (2) Pulmonary embolism Current Visit: Yes Status: Acute Qualifiers: Acute cor pulmonale presence: without acute cor pulmonale Plan to address problem: Patient initiated on IV heparin per protocol (3) Rhabdomyolysis Current Visit: Yes Status: Acute Qualifiers: Rhabdomyolysis type: non-traumatic Qualified Code(s): M62.82 - Rhabdomyolysis Plan to address problem: CK possibly elevated secondary to new onset seizure activity IV fluids for now Serial CPK levels No myocardial component (4) CVA (cerebral vascular accident) Current Visit: Yes Status: Chronic Qualifiers: Laterality of affected vessel: right Plan to address problem: Possible old CVA with left side weakness MRI brain when stable Neurology consult requested (5) LIZBETH (acute kidney injury) Current Visit: Yes Status: Acute Plan to address problem: IV fluids for now Vasomotor nephropathy (6) Hypertension Current Visit: Yes Status: Chronic Qualifiers: Hypertension type: primary hypertension Qualified Code(s): I10 - Essential (primary) hypertension Plan to address problem: Continue antihypertensives and adjust medications (7) Hyperlipidemia Current Visit: Yes Status: Chronic Qualifiers: Hyperlipidemia type: mixed hyperlipidemia Qualified Code(s): E78.2 - Mixed hyperlipidemia Plan to address problem: We will hold the statins for time being (8) DVT prophylaxis Current Visit: Yes Status: Acute Plan to address problem: On heparin drip and GI prophylaxis
[2021-04-22] MEDS ORDERED: HEPARIN 10,000 UNITS/10 ML VIAL IV PRN (00:05)
[2021-04-22] MEDS ORDERED: HEPARIN 10,000 UNITS/10 ML VIAL IV ONE ×2 (00:05)
[2021-04-22 00:44] LABS: Hematocrit 44.4 % (30.3-42.9); Hemoglobin 14.8 gm/dl (10.1-14.3)
[2021-04-22 00:57] LABS: INR 0.95 (0.87-1.13)
[2021-04-22 00:58] LABS: Partial Thromboplastin Time 29.2 Sec. (24.2-36.6)
[2021-04-22] MEDS: FAMOTIDINE 20 MG/2 ML INJ IV SCH ×3 (05:10→22:40)
[2021-04-22] MEDS: HEPARIN/ 0.45% NACL DRIP 25,000 UNIT/500 ML BAG IV SCH (05:16)
[2021-04-22] MEDS: SODIUM CHLORIDE 0.9% 1000 ML 1,000 ML IV SCH ×2 (05:35→22:40)
[2021-04-22] MEDS: levETIRAcetam 750 MG in DEXTROSE 5% IN WATER 100 ML IV SCH ×2 (05:35→16:35)
[2021-04-22] MEDS: SENNOSIDES/DOCUSATE SODIUM 8.6/50 MG TAB FEEDTUBE SCH ×3 (05:40→22:40)
[2021-04-22 05:59] LABS: Basophils # (Auto) 0.1 K/mm3 (0.0-0.1); Basophils % (Auto) 0.7 % (0.0-1.8); Eosinophils # (Auto) 0.3 K/mm3 (0.0-0.4); Hematocrit 45.8 % (30.3-42.9); Hemoglobin 15.4 gm/dl (10.1-14.3); Lymphocytes # (Auto) 1.1 K/mm3 (1.2-5.4); Mean Corpuscular HGB Conc 34 % (30-34); Mean Corpuscular Volume 93 fl (79-97); Monocytes # (Auto) 0.7 K/mm3 (0.0-0.8); Platelet Count 259 K/mm3 (140-440); Red Blood Count 4.95 M/mm3 (3.65-5.03)
--- NOTE | 2021-04-22 06:49 | Consultation ---
History of Present Illness - Reason for Consult Consult date: 04/22/21 acute renal failure Requesting physician: GERRI MUNSON - History of Present Illness 66-year-old lady with history of hypertension preserve vascular accident with residual left-sided weakness. Family observed worsening left-sided weakness 3 days ago and brought her to the emergency room. Patient refused to be seen and was taken back home. The next day she stopped speaking and subsequently family noticed diminishing mental status and so she was brought back to the emergency room. In the ER she open her eyes to sternal rub but while been evaluation she allowed based and generalized tonic-clonic seizures and so was loaded with Keppra and tubular for airway protection. Labs showed elevated BUN/creatinine today potassium was high at 6.3 mmol/L. CPK is also elevated at 3055 units per liter. I am consulted to assist in renal failure and electrolyte abnormalities.Since unable to give a history as she is intubated on ventilator and so my history is obtained from review of the records. Past History Past Medical History: hypertension, hyperlipidemia, stroke Social history: lives with family Medications and Allergies Allergies Allergy/AdvReac Type Severity Reaction Status Date / Time No Known Allergies Allergy Unverified 03/04/19 19:33 Home Medications Medication Instructions Recorded Confirmed Last Taken Type Acetaminophen [Acetaminophen TAB] 325 mg PO Q4H PRN #15 tablet 03/10/19 Unknown Rx Aspirin 325 mg PO QDAY #30 tablet 03/10/19 Unknown Rx Docusate Sodium [Colace CAP] 100 mg PO BID #60 capsule 03/10/19 Unknown Rx Lipitor 40 mg PO QHS #30 03/10/19 Unknown Rx amLODIPine 5 mg PO QDAY #30 tablet 03/10/19 Unknown Rx oxyCODONE /ACETAMINOPHEN [Percocet 1 tab PO Q6H PRN #8 tablet 03/10/19 Unknown Rx 5/325 mg] Active Meds: Active Medications Acetaminophen (Acetaminophen 325 Mg Tab) 650 mg PO Q4H PRN PRN Reason: Pain MILD(1-3)/Fever >100.5/DICKINSON Famotidine (Famotidine 20 Mg/2 Ml Inj) 20 mg IV BID MINOR Last Admin: 04/22/21 05:10 Dose: 20 mg Documented by: Fentanyl (Fentanyl 100 Mcg/2 Ml Inj) 50 mcg IV Q10MIN PRN PRN Reason: ANALGESIA Heparin Sodium (Porcine) (Heparin 10,000 Units/10 Ml Vial) 2,800 unit 40 unit/kg (2800 unit) IV Q6H PRN PRN Reason: Anti-Xa Assay < 0.1 units/ml Hydromorphone HCl (Hydromorphone 1 Mg/1 Ml Inj) 0.5 mg IV Q3H PRN PRN Reason: Pain , Severe (7-10) Hydrophilic Ointment (Lip Therapy Vaseline) 1 applic TP Q2HR PRN PRN Reason: Dry Lips Fentanyl Citrate (Fentanyl Drip Premix) 2,000 mcg in 100 mls @ 3.515 mls/hr IV TITR MINOR; Protocol Last Admin: 04/21/21 15:55 Dose: 1 mcg/kg/hr, 3.515 mls/hr Documented by: Sodium Chloride (Nacl 0.9% 1000 Ml) 1,000 mls @ 100 mls/hr IV DIRECT MINOR Last Admin: 04/22/21 05:35 Dose: 100 mls/hr Documented by: Levetiracetam 750 mg/ Dextrose 107.5 mls @ 400 mls/hr IV Q12H MINOR Last Admin: 04/22/21 05:35 Dose: 400 mls/hr Documented by: Heparin Sodium/Sodium Chloride (Heparin/ 0.45% Nacl-25,000 Unit/500 Ml) 25,000 unit in 500 mls @ 21 mls/hr IV TITR MINOR; Protocol Last Admin: 04/22/21 05:16 Dose: 1,050 units/hr, 21 mls/hr Documented by: Ceftriaxone Sodium (Rocephin/Ns 2 Gm/100 Ml) 2 gm in 100 mls @ 200 mls/hr IV Q24H MINOR; Protocol Morphine Sulfate (Morphine 2 Mg/1 Ml Inj) 2 mg IV Q4H PRN PRN Reason: Pain, Moderate (4-6) Multi-Ingred Cream/Lotion/Oil/Oint (Mineral Oil/Petrolatum, White Ophth Oint 3.5 Gm) 1 applic OU Q4HR PRN PRN Reason: Dry Eye(s) Ondansetron HCl (Ondansetron 4 Mg/2 Ml Inj) 4 mg IV Q8H PRN PRN Reason: Nausea And Vomiting Senna/Docusate Sodium (Sennosides/Docusate Sodium 8.6/50 Mg Tab) 1 tab FEEDTUBE BID [facility] Last Admin: 04/22/21 05:40 Dose: Not Given Documented by: Sodium Chloride (Sodium Chloride 0.9% 10 Ml Flush Syringe) 10 ml IV BID [facility] Last Admin: 04/22/21 05:40 Dose: 10 ml Documented by: Sodium Chloride (Sodium Chloride 0.9% 10 Ml Flush Syringe) 10 ml IV PRN PRN PRN Reason: LINE FLUSH Review of Systems ROS unobtainable: due to endotracheal tube All systems: negative Exam - Vital Signs Vital signs: Vital Signs Temp Pulse Resp BP Pulse Ox 98.2 F 125 H 35 H 112/71 67 L 04/21/21 14:32 04/21/21 14:32 04/21/21 14:32 04/21/21 14:32 04/21/21 14:32 - Physical Exam Narrative exam: Middle-aged Afro-Turkmen female lying in bed. On the ventilator HEENT: Normocephalic atraumatic, Endotracheal tube intact Neck: Supple, no venous distention, no goiter CVS: S1S2 RRR No murmur, No rub or gallop Lungs: Clear to auscultation, no use of accessory muscles of respiration Abdomen: Full, soft, nontender, no organomegaly no bruit, bowel sounds are present Extremities: No edema, no cyanosis or clubbing Urinary: Deferred Skin cold and dry Musculo-skeletal: No joint deformities or swelling Neuro: Awake, Intubated on a ventilator Results - Lab Results 04/22/21 05:29 04/22/21 13:25 Most recent lab results ABG pH 7.390 (7.320-7.450) 04/22/21 03:27 ABG O2 Saturation 96.3 (0-100) 04/22/21 03:27 Calcium 9.3 mg/dL (8.4-10.2) 04/21/21 16:32 Assessment and Plan - Patient Problems (1) LIZBETH (acute kidney injury) Current Visit: Yes Status: Acute Plan to address problem: Prerenal azotemia secondary to volume depletion secondary to poor oral intake versus acute tubular necrosis secondary to rhabdomyolysis.Get urine studies. Quantify proteinuria. Continue volume resuscitation. Follow-up electrolytes and renal function. (2) Hyperkalemia Current Visit: Yes Status: Acute Plan to address problem: Suspect lab error though this could occur in the setting of rhabdomyolysis. Repeat potassium stat ordered. If it is still high, will treat. (3) Elevated liver function tests Current Visit: Yes Status: Acute Plan to address problem: Related to rhabdomyolysis. Follow-up liver function tests (4) Proteinuria Current Visit: Yes Status: Acute Plan to address problem: Suspect baseline chronic kidney disease. Quantify proteinuria follow-up (5) New onset seizure Current Visit: Yes Status: Acute Plan to address problem: Continue Keppra. Management by neurologist. (6) Rhabdomyolysis Current Visit: Yes Status: Acute Plan to address problem: Continue volume repletion. Follow-up CPK. (7) Hypertension Current Visit: Yes Status: Chronic Qualifiers: Hypertension type: primary hypertension Qualified Code(s): I10 - Essential (primary) hypertension Plan to address problem: Follow-up blood pressure on current medication
[2021-04-22 07:00] LABS: Alanine Aminotransferase 52 units/L (7-56); Albumin 3.6 g/dL (3.9-5); BUN/Creatinine Ratio 24; Blood Urea Nitrogen 26 mg/dL (7-17); Hemolysis Index 138
--- NOTE | 2021-04-22 07:50 | XRay Report ---
CHEST - 1 VIEW 0731 hours INDICATION: follow up respiratory failure COMPARISON: Yesterday FINDINGS: Support devices: Stable support device positioning. Heart: Stable cardiomediastinal silhouette. Lungs/pleura: Prominent interstitium is again noted consistent with interstitial lung disease. Focal airspace opacities have increased at the left lung base which probably represents segmental atelecta sis. Trace pleural effusions are suspected which appear to be new. No pneumothorax. Additional findings: None. IMPRESSION: Stable underlying chronic interstitial lung disease. Mild left lower lobe airspace opacity and trace pleural effusions have developed. Signer Name: Dexter Haile Jr, MD Signed: 04/22/2021 7:46 AM Workstation Name: [id number]
[2021-04-22] MEDS ORDERED: LIPASE 10,500/PROTEASE 25,000/AMYLASE 43,750 (UNITS) DR CAP FEEDTUBE PRN (10:51)
[2021-04-22] MEDS ORDERED: SIMPLE SYRUP 15 ML FEEDTUBE PRN ×2 (10:51)
[2021-04-22] MEDS ORDERED: SODIUM BICARBONATE 325 MG TAB FEEDTUBE PRN (10:51)
--- NOTE | 2021-04-22 15:10 | Consultation ---
History of Present Illness Consult date: 04/22/21 Reason for Consult: Seizure and possible stroke Chief complaint: Seizure, possible stroke History of present illness: 66 yo female with htn, hld, stroke(s) w/ residual left-sided weakness, presents where the family noticed worsening left-sided weakness and the noticed a change in language and mentation and guy her in to the ED for further evaluation. During the ED course, she was witnessed with left gaze deviation with tonic- clonic seizure activity (ativan given; keppra loaded) and was intubated for airway protection. No further seizure activity noted. Past History Past Medical History: hypertension, hyperlipidemia, stroke Medications and Allergies Allergies Allergy/AdvReac Type Severity Reaction Status Date / Time No Known Allergies Allergy Unverified 03/04/19 19:33 Home Medications Medication Instructions Recorded Confirmed Last Taken Type Acetaminophen [Acetaminophen TAB] 325 mg PO Q4H PRN #15 tablet 03/10/19 Unknown Rx Aspirin 325 mg PO QDAY #30 tablet 03/10/19 Unknown Rx Docusate Sodium [Colace CAP] 100 mg PO BID #60 capsule 03/10/19 Unknown Rx Lipitor 40 mg PO QHS #30 03/10/19 Unknown Rx amLODIPine 5 mg PO QDAY #30 tablet 03/10/19 Unknown Rx oxyCODONE /ACETAMINOPHEN [Percocet 1 tab PO Q6H PRN #8 tablet 03/10/19 Unknown Rx 5/325 mg] Active Meds: Active Medications Acetaminophen (Acetaminophen 325 Mg Tab) 650 mg PO Q4H PRN PRN Reason: Pain MILD(1-3)/Fever >100.5/[place] Lipase/Protease/Amylase (Lipase 10,500/Protease 25,000/Amylase 43,750 (Units) Dr Ryan) 1 each FEEDTUBE PRN PRN PRN Reason: For Clogged Feeding Tube Famotidine (Famotidine 20 Mg/2 Ml Inj) 20 mg IV BID MINOR Last Admin: 04/22/21 05:10 Dose: 20 mg Documented by: Fentanyl (Fentanyl 100 Mcg/2 Ml Inj) 50 mcg IV Q10MIN PRN PRN Reason: ANALGESIA Heparin Sodium (Porcine) (Heparin 10,000 Units/10 Ml Vial) 2,800 unit 40 unit/kg (2800 unit) IV Q6H PRN PRN Reason: Anti-Xa Assay < 0.1 units/ml Hydromorphone HCl (Hydromorphone 1 Mg/1 Ml Inj) 0.5 mg IV Q3H PRN PRN Reason: Pain , Severe (7-10) Hydrophilic Ointment (Lip Therapy Vaseline) 1 applic TP Q2HR PRN PRN Reason: Dry Lips Fentanyl Citrate (Fentanyl Drip Premix) 2,000 mcg in 100 mls @ 3.515 mls/hr IV TITR MINOR; Protocol Last Admin: 04/21/21 15:55 Dose: 1 mcg/kg/hr, 3.515 mls/hr Documented by: Sodium Chloride (Nacl 0.9% 1000 Ml) 1,000 mls @ 100 mls/hr IV DIRECT MINOR Last Admin: 04/22/21 05:35 Dose: 100 mls/hr Documented by: Levetiracetam 750 mg/ Dextrose 107.5 mls @ 400 mls/hr IV Q12H MINOR Last Admin: 04/22/21 05:35 Dose: 400 mls/hr Documented by: Heparin Sodium/Sodium Chloride (Heparin/ 0.45% Nacl-25,000 Unit/500 Ml) 25,000 unit in 500 mls @ 21 mls/hr IV TITR MINOR; Protocol Last Admin: 04/22/21 05:16 Dose: 1,050 units/hr, 21 mls/hr Documented by: Ceftriaxone Sodium (Rocephin/Ns 2 Gm/100 Ml) 2 gm in 100 mls @ 200 mls/hr IV Q24H MINOR; Protocol Morphine Sulfate (Morphine 2 Mg/1 Ml Inj) 2 mg IV Q4H PRN PRN Reason: Pain, Moderate (4-6) Multi-Ingred Cream/Lotion/Oil/Oint (Mineral Oil/Petrolatum, White Ophth Oint 3.5 Gm) 1 applic OU Q4HR PRN PRN Reason: Dry Eye(s) Ondansetron HCl (Ondansetron 4 Mg/2 Ml Inj) 4 mg IV Q8H PRN PRN Reason: Nausea And Vomiting Senna/Docusate Sodium (Sennosides/Docusate Sodium 8.6/50 Mg Tab) 1 tab FEEDTUBE BID MINOR Last Admin: 04/22/21 05:40 Dose: Not Given Documented by: Simple Syrup (Simple Syrup 15 Ml) 15 ml FEEDTUBE PRN PRN PRN Reason: Hypoglycemia Simple Syrup (Simple Syrup 15 Ml) 30 ml FEEDTUBE PRN PRN PRN Reason: Hypoglycemia Sodium Bicarbonate (Sodium Bicarbonate 325 Mg Tab) 325 mg FEEDTUBE PRN PRN PRN Reason: For Clogged Feeding Tube Sodium Chloride (Sodium Chloride 0.9% 10 Ml Flush Syringe) 10 ml IV BID MINOR Last Admin: 04/22/21 05:40 Dose: 10 ml Documented by: Sodium Chloride (Sodium Chloride 0.9% 10 Ml Flush Syringe) 10 ml IV PRN PRN PRN Reason: LINE FLUSH Review of Systems ROS unobtainable: due to mental status Physical Examination - Vital Signs Vital Signs: Vital Signs Temp Pulse Resp BP Pulse Ox 98.2 F 125 H 35 H 112/71 67 L 04/21/21 14:32 04/21/21 14:32 04/21/21 14:32 04/21/21 14:32 04/21/21 14:32 - Physical Exam Narrative exam: Gen: nad, intubated; Head: normocephalic; Eyes: no gaze deviation; no ptosis; ENT: +ETT; CVS: warm and well-perfused; Pulm: no respiratory distress; GI: appears non-distended; Ext: no cyanosis at distal extremities;right soft wrist restraints; Skin: no acute rash at distal extremities; Heme: no pathologic bruising at distal extremities; Neuro: stuporous, not following commands, CN 2 - PERRL, visual sethi - no blink to stimuli, CN 3, 4, 6 - no gaze deviaiton, CN 5 / CN 7 - corneal intact; CN 8//// - pt cannot cooperate secondary to loc; Motor - at least 4/5 in all exts; Sensory - no movement at left exts, Cerebellar/Gait - not cooperative secondary to loc; NIHSS (1a.) Level of Consciousness:2 (1b.) LOC Questions:1 (1c.) LOC Commands:2 (2.) Best Gaze:2 (3.) Visual:2 (4.) Facial Palsy:0 (5a.) Motor Arm, Left:4 (5b.) Motor Arm, Right:3 (6a.) Motor Leg, Left:4 (6b.) Motor Leg, Right:3 (7.) Limb Ataxia:0 (8.) Sensory:0 (9.) Best Language:2 (10.) Dysarthria:0 (11.) Extinction and Inattention:2 NIHSS Total Score: 27 Results - Laboratory Findings CBC and BMP: 04/22/21 05:29 04/22/21 13:25 Abnormal Lab Findings: Abnormal Labs 04/21/21 04/21/21 04/21/21 14:40 15:42 16:30 RBC Hgb Hct RDW Lymph % (Auto) Pepin % (Auto) Lymph # (Auto) Seg Neutrophils % Seg Neuts % (Manual) Lymphocytes % (Manual) Monocytes % (Manual) Lymphocytes # (Manual) D-Dimer 1522.26 H POC ABG pO2 45.5 L 69.9 L ABG Oxyhemoglobin 78.6 L 90.2 L ABG Potassium ABG Chloride 111.0 H ABG Glucose 156 H 148 H Carboxyhemoglobin Potassium Carbon Dioxide BUN Creatinine Glucose AST ALT Total Creatine Kinase CK-MB (CK-2) Troponin T Albumin Triglycerides Cholesterol LDL Cholesterol Direct HDL Cholesterol Arterial Blood Glucose 156 H 148 H Arterial Blood Ionized Calcium 4.5 L 04/21/21 04/21/21 04/22/21 16:32 16:32 00:32 RBC 5.22 H Hgb 16.2 H 14.8 H Hct 48.6 H 44.4 H RDW 15.8 H Lymph % (Auto) Pepin % (Auto) Lymph # (Auto) Seg Neutrophils % Seg Neuts % (Manual) 79.0 H Lymphocytes % (Manual) 13.0 L Monocytes % (Manual) 8.0 H Lymphocytes # (Manual) 1.1 L D-Dimer POC ABG pO2 ABG Oxyhemoglobin ABG Potassium ABG Chloride ABG Glucose Carboxyhemoglobin Potassium Carbon Dioxide 21 L BUN 24 H Creatinine 1.3 H Glucose 130 H AST 129 H ALT 61 H Total Creatine Kinase 3055 H CK-MB (CK-2) 22.4 H Troponin T 0.055 H Albumin 3.6 L Triglycerides 235 H Cholesterol 220 H LDL Cholesterol Direct 142 H HDL Cholesterol 36 L Arterial Blood Glucose Arterial Blood Ionized Calcium 04/22/21 04/22/21 04/22/21 03:27 05:29 05:29 RBC Hgb 15.4 H Hct 45.8 H RDW 16.0 H Lymph % (Auto) 12.0 L Pepin % (Auto) 8.0 H Lymph # (Auto) 1.1 L Seg Neutrophils % 76.3 H Seg Neuts % (Manual) Lymphocytes % (Manual) Monocytes % (Manual) Lymphocytes # (Manual) D-Dimer POC ABG pO2 ABG Oxyhemoglobin ABG Potassium 4.7 H ABG Chloride 109.0 H ABG Glucose 155 H Carboxyhemoglobin 0.4 L Potassium 6.3 H* D Carbon Dioxide BUN 26 H Creatinine Glucose 134 H AST 123 H ALT Total Creatine Kinase CK-MB (CK-2) Troponin T Albumin 3.6 L Triglycerides Cholesterol LDL Cholesterol Direct HDL Cholesterol Arterial Blood Glucose 155 H Arterial Blood Ionized Calcium 04/22/21 13:25 RBC Hgb Hct RDW Lymph % (Auto) Pepin % (Auto) Lymph # (Auto) Seg Neutrophils % Seg Neuts % (Manual) Lymphocytes % (Manual) Monocytes % (Manual) Lymphocytes # (Manual) D-Dimer POC ABG pO2 ABG Oxyhemoglobin ABG Potassium ABG Chloride ABG Glucose Carboxyhemoglobin Potassium Carbon Dioxide BUN Creatinine Glucose AST ALT Total Creatine Kinase 2322 H CK-MB (CK-2) Troponin T Albumin Triglycerides Cholesterol LDL Cholesterol Direct HDL Cholesterol Arterial Blood Glucose Arterial Blood Ionized Calcium Assessment and Plan 66 yo female with htn, hld, stroke(s) w/ residual left-sided weakness, presents where the family noticed worsening left-sided weakness and the noticed a change in language and mentation and brought her in to the ED for further evaluation. During the ED course, she was witnessed with left gaze deviation with tonic-clonic seizure activity (ativan given; keppra loaded) and was intubated for airway protection. No further seizure activity noted. 1. Seizure d/o - continue Keppra 750 bid; keep Mg 2.0 to 2.0; maintain eu natremia; aggressive treatment of underlying infection/inflammation; EEG ordered. 2. Acute Ischemic Stroke - ?extension of previous stroke; ASA 325 mg PO qday if no contraindications, MRI Brain w/o contrast, TTEcho, CUS, confirm LDL/TSH, SBP goal 160-200 mmHg and DBP 80-100 mmHg for 48 hours only. Statin therapy for a goal LDL of 70, when patient passes swallow evaluation. PT/OT/ST/Swallow jeremias luation. Long-term risk-factor modification, including a strict diet/exercise regimen for secondary stroke prophylaxis. 3. Hypertension - goal SBP 160-200 mmHg and DBP 80-100 mmHg. 4. Hyperlipidemia - goal LDL of 70 w/ statin therapy if no contraindications. 5. Hx of Stroke - antiplatelet/statin therapy. Everett Watson MD Neurology cpt - [id number]
[2021-04-22 17:10] LABS: Creatinine,Urine 138.9 mg/dL (0.1-20.0)
[2021-04-22 17:39] LABS: ABG Base Excess -1.6 mmol/L (-2.0-3.0); ABG HCO3 24.4 mmol/L (20.0-26.0); ABG Methemoglobin 0.5 % (0.0-1.5); ABG Oxygen Saturation 97.3 % (95.0-99.0); ABG PH 7.343 pH Units (7.350-7.450); ABG PO2 99.6 mm Hg (80.0-90.0)
--- NOTE | 2021-04-22 17:49 | Progress Note ---
Assessment and Plan Assessment and plan: 66-year-old female with history of hypertension and hyperlipidemia brought in by EMS for altered mental status and new onset seizures. Patient has left-sided weakness from a prior CVA but the family says that there is increased left-sided weakness 3 days ago. Patient initially came to the emergency department yesterday but was refused to be seen and patient family took the patient back home. Now comes back again for evaluation and treatment. Patient also had aphasia yesterday because of which the family brought the patient today for evaluation and treatment. In the emergency room patient devel oped seizures which were persistent and generalized tonic-clonic. Patient was intubated for protection of airway. As per family the seizures are new symptoms Assessment and Plan Advance Directives: Yes (Full code) VTE prophylaxis?: Chemical Plan of care discussed with patient/family: Yes - Patient Problems (1) New onset seizure Current Visit: Yes Status: Acute Plan to address problem: Patient was intubated in the emergency room for protection of airway Keppra 1000 mg IV x1 given Patient initiated on IV Keppra 750 mg every 12 Neurology consulted and evaluating Ordered EEG No further seizures since intubated Pulmonary consulted and awaiting recommendations Wean FiO2 as tolerated If no recurrence of seizures, likely to be extubated soon (2) Pulmonary embolism Current Visit: Yes Status: Acute Qualifiers: Acute cor pulmonale presence: without acute cor pulmonale Plan to address problem: Patient initiated on IV heparin per protocol Echo ordered Ordered venous duplex ultrasound to assess for DVT (3) Rhabdomyolysis Current Visit: Yes Status: Acute Qualifiers: Rhabdomyolysis type: non-traumatic Qualified Code(s): M62.82 - Rhabdomyolysis Plan to address problem: CK possibly elevated secondary to new onset seizure activity IV fluids for now Serial CPK levels, improving No myocardial component (4) rule out acute CVA (cerebral vascular accident) Current Visit: Yes Status: Chronic Qualifiers: Laterality of affected vessel: right Plan to address problem: old CVA with left side weakness. CT brain shows no acute process. MRI brain when stable to rule out new CVA Neurology consulted (5) LIZBETH (acute kidney injury), resolved Current Visit: Yes Status: Acute Plan to address problem: Receiving IV fluids (6) Hypertension Current Visit: Yes Status: Chronic Qualifiers: Hypertension type: primary hypertension Qualified Code(s): I10 - Essential (primary) hypertension Plan to address problem: Continue antihypertensives and adjust medications (7) Hyperlipidemia Current Visit: Yes Status: Chronic Qualifiers: Hyperlipidemia type: mixed hyperlipidemia Qualified Code(s): E78.2 - Mixed hyperlipidemia Plan to address problem: We will hold the statins for time being (8) DVT prophylaxis Current Visit: Yes Status: Acute Plan to address problem: On heparin drip and GI prophylaxis Discussed with the nursing staff and respiratory therapist Patient remains in the ED awaiting transfer to ICU. Nursing staff will reach out to the television equipment operator with regard to the consultation. Critical care time spent 40 minutes. History Interval history: Patient remains intubated and sedated with fentanyl. No further seizure activity reported. She is on Keppra. Consult with pulmonology was ordered by the admitting physician but patient not seen yet. Patient is on FiO2 100%, spoken to RT, ABG obtained and reduced FiO2 to 80% and to be weaned further as tolerated. Neurology is following. EEG and MRI ordered. Hospitalist Physical - Constitutional Vitals: Temp Pulse Resp BP Pulse Ox 97.2 F L 109 H 21 122/74 100 04/22/21 11:00 04/22/21 16:31 04/22/21 16:31 04/22/21 16:31 04/22/21 16:31 General appearance: Present: no acute distress, well-nourished, other (Sedated on vent) - EENT Eyes: Present: PERRL (No gaze preference). Absent: scleral icterus, conjunctival injection ENT: other (ETT in place) - Neck Neck: Present: supple - Respiratory Respiratory effort: other (Even respirations on vent) Respiratory: bilateral: CTA - Cardiovascular Rhythm: regular - Extremities Extremities: No edema - Abdominal General gastrointestinal: soft, non-tender, non-distended, normal bowel sounds - Integumentary Integumentary: Absent: rash - Neurologic Neurologic: other (Pupils normal. No gaze preference. Face fairly symmetrical. Left upper and lower extremities stiff from a previous stroke and move poorly to pain. Right upper and lower extremities moved to the pain.) HEART Score - HEART Score Age: 45-65 Risk factors: 1-2 risk factors Troponin: Troponin T 0.055 ng/mL (0.00-0.029) H 04/21/21 16:32 - Critical Actions Critical Actions: 0-3 pts:0.9-1.7%risk of adverse cardiac event.Candidate for discharge Results - Labs CBC & Chem 7: 04/22/21 05:29 04/22/21 13:25 Labs: Laboratory Last Values WBC 8.8 K/mm3 (4.5-11.0) 04/22/21 05:29 RBC 4.95 M/mm3 (3.65-5.03) 04/22/21 05:29 Hgb 15.4 gm/dl (10.1-14.3) H 04/22/21 05:29 Hct 45.8 % (30.3-42.9) H 04/22/21 05:29 MCV 93 fl (79-97) 04/22/21 05:29 MCH 31 pg (28-32) 04/22/21 05:29 MCHC 34 % (30-34) 04/22/21 05:29 RDW 16.0 % (13.2-15.2) H 04/22/21 05:29 Plt Count 259 K/mm3 (140-440) 04/22/21 05:29 Lymph % (Auto) 12.0 % (13.4-35.0) L 04/22/21 05:29 [place] % (Auto) 8.0 % (0.0-7.3) H 04/22/21 05:29 Eos % (Auto) 3.0 % (0.0-4.3) 04/22/21 05:29 Baso % (Auto) 0.7 % (0.0-1.8) 04/22/21 05:29 Lymph # (Auto) 1.1 K/mm3 (1.2-5.4) L 04/22/21 05:29 [place] # (Auto) 0.7 K/mm3 (0.0-0.8) 04/22/21 05:29 Eos # (Auto) 0.3 K/mm3 (0.0-0.4) 04/22/21 05:29 Baso # (Auto) 0.1 K/mm3 (0.0-0.1) 04/22/21 05:29 Add Manual Diff Complete 04/21/21 16:32 Total Counted 100 04/21/21 16:32 Seg Neutrophils % 76.3 % (40.0-70.0) H 04/22/21 05:29 Seg Neuts % (Manual) 79.0 % (40.0-70.0) H 04/21/21 16:32 Lymphocytes % (Manual) 13.0 % (13.4-35.0) L 04/21/21 16:32 Monocytes % (Manual) 8.0 % (0.0-7.3) H 04/21/21 16:32 Nucleated RBC % Not Reportable 04/21/21 16:32 Seg Neutrophils # 6.7 K/mm3 (1.8-7.7) 04/22/21 05:29 Seg Neutrophils # Man 6.6 K/mm3 (1.8-7.7) 04/21/21 16:32 Band Neutrophils # 0.0 K/mm3 04/21/21 16:32 Lymphocytes # (Manual) 1.1 K/mm3 (1.2-5.4) L 04/21/21 16:32 Abs React Lymphs (Man) 0.0 K/mm3 04/21/21 16:32 Monocytes # (Manual) 0.7 K/mm3 (0.0-0.8) 04/21/21 16:32 Eosinophils # (Manual) 0.0 K/mm3 (0.0-0.4) 04/21/21 16:32 Basophils # (Manual) 0.0 K/mm3 (0.0-0.1) 04/21/21 16:32 Metamyelocytes # 0.0 K/mm3 04/21/21 16:32 Myelocytes # 0.0 K/mm3 04/21/21 16:32 Promyelocytes # 0.0 K/mm3 04/21/21 16:32 Blast Cells # 0.0 K/mm3 04/21/21 16:32 WBC Morphology Not Reportable 04/21/21 16:32 Hypersegmented Neuts Not Reportable 04/21/21 16:32 Hyposegmented Neuts Not Reportable 04/21/21 16:32 Hypogranular Neuts Not Reportable 04/21/21 16:32 Smudge Cells Not Reportable 04/21/21 16:32 Toxic Granulation Not Reportable 04/21/21 16:32 Toxic Vacuolation Not Reportable 04/21/21 16:32 Dohle Bodies Not Reportable 04/21/21 16:32 Pelger-Huet Anomaly Not Reportable 04/21/21 16:32 Brenda Rods Not Reportable 04/21/21 16:32 Platelet Estimate Consistent w auto 04/21/21 16:32 Clumped Platelets Not Reportable 04/21/21 16:32 Plt Clumps, EDTA Not Reportable 04/21/21 16:32 Large Platelets Not Reportable 04/21/21 16:32 Giant Platelets Not Reportable 04/21/21 16:32 Platelet Satelliting Not Reportable 04/21/21 16:32 Plt Morphology Comment Not Reportable 04/21/21 16:32 RBC Morphology Not Reportable 04/21/21 16:32 Dimorphic RBCs Not Reportable 04/21/21 16:32 Polychromasia Not Reportable 04/21/21 16:32 Hypochromasia Not Reportable 04/21/21 16:32 Poikilocytosis Not Reportable 04/21/21 16:32 Anisocytosis 1+ 04/21/21 16:32 Microcytosis Not Reportable 04/21/21 16:32 Macrocytosis Not Reportable 04/21/21 16:32 Spherocytes Not Reportable 04/21/21 16:32 Pappenheimer Bodies Not Reportable 04/21/21 16:32 Sickle Cells Not Reportable 04/21/21 16:32 Target Cells Not Reportable 04/21/21 16:32 Tear Drop Cells Not Reportable 04/21/21 16:32 Ovalocytes Not Reportable 04/21/21 16:32 Helmet Cells Not Reportable 04/21/21 16:32 [place] Bodies Not Reportable 04/21/21 16:32 [place] Rings Not Reportable 04/21/21 16:32 Britt Cells Not Reportable 04/21/21 16:32 Bite Cells Not Reportable 04/21/21 16:32 Crenated Cell Not Reportable 04/21/21 16:32 Elliptocytes Not Reportable 04/21/21 16:32 Acanthocytes (Spur) Not Reportable 04/21/21 16:32 Rouleaux Not Reportable 04/21/21 16:32 Hemoglobin C Crystals Not Reportable 04/21/21 16:32 Schistocytes Not Reportable 04/21/21 16:32 Malaria parasites Not Reportable 04/21/21 16:32 Uli Bodies Not Reportable 04/21/21 16:32 Hem Pathologist Commnt No 04/21/21 16:32 PT 13.2 Sec. (12.2-14.9) 04/22/21 00:32 INR 0.95 (0.87-1.13) 04/22/21 00:32 APTT 29.2 Sec. (24.2-36.6) 04/22/21 00:32 D-Dimer 1522.26 ng/mlDDU (0-234) H 04/21/21 16:30 Heparin Anti-Xa Level 0.63 U.I./ml (0.3-0.7) 04/22/21 11:00 ABG pH 7.343 pH Units (7.350-7.450) L 04/22/21 17:30 POC ABG pCO2 42.6 mmHg (32.0-48.0) 04/22/21 03:27 ABG pCO2 46.0 mm Hg 04/22/21 17:30 POC ABG pO2 94.1 mmHg (83-108) 04/22/21 03:27 ABG pO2 99.6 mm Hg (80.0-90.0) H 04/22/21 17:30 POC ABG HCO3 25.2 04/22/21 03:27 ABG HCO3 24.4 mmol/L (20.0-26.0) 04/22/21 17:30 ABG O2 Saturation 97.3 % (95.0-99.0) 04/22/21 17:30 ABG O2 Content 19.9 (0.0-44) 04/22/21 17:30 POC ABG Base Excess 0.1 04/22/21 03:27 ABG Base Excess -1.6 mmol/L (-2.0-3.0) 04/22/21 17:30 ABG Hemoglobin 14.7 gm/dl (12.0-16.0) 04/22/21 17:30 ABG Oxyhemoglobin 95.6 (94-98) 04/22/21 03:27 ABG Carboxyhemoglobin 0.9 % (0.0-5.0) 04/22/21 17:30 ABG Methemoglobin 0.5 % (0.0-1.5) 04/22/21 17:30 ABG Sodium 141.3 mmol/L (136.0-145.0) 04/22/21 03:27 ABG Potassium 4.7 mmol/L (3.40-4.50) H 04/22/21 03:27 ABG Chloride 109.0 mmol/L (98-107) H 04/22/21 03:27 ABG Glucose 155 mg/dL (65-95) H 04/22/21 03:27 Oxyhemoglobin 95.9 % (95.0-99.0) 04/22/21 17:30 Carboxyhemoglobin 0.4 (0.5-1.5) L 04/22/21 03:27 FiO2 100 % 04/22/21 17:30 FiO2 % 100.0 04/22/21 03:27 Sodium 143 mmol/L (137-145) 04/22/21 05:29 Potassium 4.9 mmol/L (3.6-5.0) D 04/22/21 13:25 Chloride 106.2 mmol/L (98-107) 04/22/21 05:29 Carbon Dioxide 22 mmol/L (22-30) 04/22/21 05:29 Anion Gap 21 mmol/L 04/22/21 05:29 BUN 26 mg/dL (7-17) H 04/22/21 05:29 Creatinine 1.1 mg/dL (0.6-1.2) 04/22/21 05:29 Estimated GFR > 60 ml/min 04/22/21 05:29 BUN/Creatinine Ratio 24 % 04/22/21 05:29 Glucose 134 mg/dL (65-100) H 04/22/21 05:29 Calcium 9.0 mg/dL (8.4-10.2) 04/22/21 05:29 Total Bilirubin 0.30 mg/dL (0.1-1.2) 04/22/21 05:29 AST 123 units/L (5-40) H 04/22/21 05:29 ALT 52 units/L (7-56) 04/22/21 05:29 Alkaline Phosphatase 86 units/L (35-129) 04/22/21 05:29 Ammonia 56.0 umol/L (25-60) 04/21/21 16:32 Total Creatine Kinase 2322 units/L (30-135) H 04/22/21 13:25 CK-MB (CK-2) 22.4 ng/mL (0.0-4.0) H 04/21/21 16:32 CK-MB (CK-2) Rel Index 0.7 (0-4) 04/21/21 16:32 Troponin T 0.055 ng/mL (0.00-0.029) H 04/21/21 16:32 Total Protein 6.5 g/dL (6.3-8.2) 04/22/21 05:29 Albumin 3.6 g/dL (3.9-5) L 04/22/21 05:29 Albumin/Globulin Ratio 1.2 % 04/22/21 05:29 Triglycerides 235 mg/dL (2-149) H 04/21/21 16:32 Cholesterol 220 mg/dL (50-199) H 04/21/21 16:32 LDL Cholesterol Direct 142 mg/dL (50-130) H 04/21/21 16:32 HDL Cholesterol 36 mg/dL (40-59) L 04/21/21 16:32 Cholesterol/HDL Ratio 6.11 % 04/21/21 16:32 TSH 0.876 mlU/mL (0.270-4.200) 04/21/21 16:32 Free T4 1.05 ng/dL (0.76-1.46) 04/21/21 16:32 Arterial Blood Glucose 155 mg/dL (65-95) H 04/22/21 03:27 Arterial Blood Ionized Calcium 4.9 mg/dL (4.6-5.3) 04/22/21 03:27 Urine Color Yellow (Yellow) 04/21/21 Unknown Urine Turbidity Clear (Clear) 04/21/21 Unknown Urine pH 5.0 (5.0-7.0) 04/21/21 Unknown Ur Specific [place] 1.014 (1.003-1.030) 04/21/21 Unknown Urine Protein 100 mg/dl mg/dL (Negative) 04/21/21 Unknown Urine Glucose (UA) Neg mg/dL (Negative) 04/21/21 Unknown Urine Ketones Tr mg/dL (Negative) 04/21/21 Unknown Urine Blood Lg (Negative) 04/21/21 Unknown Urine Nitrite Neg (Negative) 04/21/21 Unknown Urine Bilirubin Neg (Negative) 04/21/21 Unknown Urine Urobilinogen 2.0 mg/dL (<2.0) 04/21/21 Unknown Ur Leukocyte Esterase Neg (Negative) 04/21/21 Unknown Urine WBC (Auto) 5.0 /HPF (0.0-6.0) 04/21/21 Unknown Urine RBC (Auto) 1.0 /HPF (0.0-6.0) 04/21/21 Unknown U Epithel Cells (Auto) 1.0 /HPF (0-13.0) 04/21/21 Unknown Urine Mucus Few /HPF 04/21/21 Unknown Urine Creatinine 138.9 mg/dL (0.1-20.0) H 04/22/21 13:03 Urine Total Protein 86 mg/dL (5-11.8) H 04/22/21 13:03 Urine Opiates Screen Negative 04/21/21 Unknown Urine Methadone Screen Negative 04/21/21 Unknown Ur Barbiturates Screen Negative 04/21/21 Unknown Ur Phencyclidine Scrn Negative 04/21/21 Unknown Ur Amphetamines Screen Negative 04/21/21 Unknown U Benzodiazepines Scrn Negative 04/21/21 Unknown Urine Cocaine Screen Negative 04/21/21 Unknown U Marijuana (THC) Screen Negative 04/21/21 Unknown Drugs of Abuse Note Disclamer 04/21/21 Unknown Plasma/Serum Alcohol < 0.01 % (0-0.07) 04/21/21 16:32 Mcfadden/IV: Voiding Method Indwelling Catheter Active Medications - Current Medications Current Medications: Generic Name Dose Route Start Last Admin Trade Name Freq PRN Reason Stop Dose Admin Acetaminophen 650 mg 04/21/21 21:11 Acetaminophen 325 Mg Tab PO Q4H PRN Pain MILD(1-3)/Fever >100.5/DICKINSON Lipase/Protease/Amylase 1 each 04/22/21 10:51 Lipase 10,500/Protease 25,000/Amylase 43,750 (Units) Dr Ryan FEEDTUBE PRN PRN For Clogged Feeding Tube Famotidine 20 mg 04/21/21 22:00 04/22/21 16:35 Famotidine 20 Mg/2 Ml Inj IV 20 mg BID MINOR Administration Fentanyl 50 mcg 04/21/21 15:46 Fentanyl 100 Mcg/2 Ml Inj IV Q10MIN PRN ANALGESIA Heparin Sodium (Porcine) 2,800 unit 04/22/21 00:05 Heparin 10,000 Units/10 Ml Vial 40 unit/kg (2800 unit) IV Q6H PRN Anti-Xa Assay < 0.1 units/ml Hydromorphone HCl 0.5 mg 04/21/21 21:26 Hydromorphone 1 Mg/1 Ml Inj IV Q3H PRN Pain , Severe (7-10) Hydrophilic Ointment 1 applic 04/21/21 15:46 Lip Therapy Vaseline TP Q2HR PRN Dry Lips Fentanyl Citrate 2,000 mcg in 100 mls @ 3.515 mls/hr 04/21/21 16:00 04/22/21 16:06 Fentanyl Drip Premix IV 1 mcg/kg/hr TITR MINOR 3.515 mls/hr Titration Protocol 1 MCG/KG/HR Sodium Chloride 1,000 mls @ 100 mls/hr 04/21/21 21:30 04/22/21 05:35 Nacl 0.9% 1000 Ml IV 100 mls/hr DIRECT MINOR Administration Levetiracetam 750 mg/ Dextrose 107.5 mls @ 400 mls/hr 04/22/21 04:00 04/22/21 16:35 IV 400 mls/hr Q12H MINOR Administration Heparin Sodium/Sodium Chloride 25,000 unit in 500 mls @ 21 mls/hr 04/22/21 01:00 04/22/21 05:16 Heparin/ 0.45% Nacl-25,000 Unit/500 Ml IV 1,050 units/hr TITR MINOR 21 mls/hr Administration Protocol 1,050 UNITS/HR Ceftriaxone Sodium 2 gm in 100 mls @ 200 mls/hr 04/23/21 06:00 Rocephin/Ns 2 Gm/100 Ml IV Q24H MINOR Protocol Morphine Sulfate 2 mg 04/21/21 21:26 Morphine 2 Mg/1 Ml Inj IV Q4H PRN Pain, Moderate (4-6) Multi-Ingred Cream/Lotion/Oil/Oint 1 applic 04/21/21 15:46 Mineral Oil/Petrolatum, White Ophth Oint 3.5 Gm OU Q4HR PRN Dry Eye(s) Ondansetron HCl 4 mg 04/21/21 21:11 Ondansetron 4 Mg/2 Ml Inj IV Q8H PRN Nausea And Vomiting Senna/Docusate Sodium 1 tab 04/21/21 22:00 04/22/21 16:36 Sennosides/Docusate Sodium 8.6/50 Mg Tab FEEDTUBE Not Given BID MINOR Simple Syrup 15 ml 04/22/21 10:51 Simple Syrup 15 Ml FEEDTUBE PRN PRN Hypoglycemia Simple Syrup 30 ml 04/22/21 10:51 Simple Syrup 15 Ml FEEDTUBE PRN PRN Hypoglycemia Sodium Bicarbonate 325 mg 04/22/21 10:51 Sodium Bicarbonate 325 Mg Tab FEEDTUBE PRN PRN For Clogged Feeding Tube Sodium Chloride 10 ml 04/21/21 22:00 04/22/21 16:36 Sodium Chloride 0.9% 10 Ml Flush Syringe IV 10 ml BID MINOR Administration Sodium Chloride 10 ml 04/21/21 21:11 Sodium Chloride 0.9% 10 Ml Flush Syringe IV PRN PRN LINE FLUSH Nutrition/Malnutrition Assess - Dietary Evaluation Nutrition/Malnutrition Findings: Nutrition Notes Start: 04/22/21 10:45 Freq: Status: Active Protocol: Document 04/22/21 10:45 MAYRA (Rec: 04/22/21 10:51 [facility] [id number]) Nutrition Notes Need for Assessment generated from: MD Order Initial or Follow up Assessment Current Diagnosis Acute Kidney Injury, Hypertension,Stroke, Hyperlipidemia Other Pertinent Diagnosis New onset seizures, AMS, pulmonary embolism Current Diet No diet ordered Labs/Tests K 6.3 BUN 26 Pertinent Medications Heparin gtt Height 5 ft 9 in Weight 70.307 kg [place] Body Weight (kg) 65.90 BMI 22.8 Weight Status Appropriate Subjective/Other Information RD consulted to evaluate nutritional intake and TF. Pt in ED at this time and on vent support. Burn Absent Trauma Absent Minimum of two criteria No #1 Nutrition Diagnosis Inadequate oral intake [facility]tiology [facility] ventilation As Evidenced by Signs and Symptoms pt NPO Is patient on ventilator? Yes Is Patient Ambulatory and/or Out of Bed No REE-([facility]-confined to bed) 1994.844 Calculation Used for Recommendations [facility] Additional Notes Pro needs 1.2-2g/k-141g/ day Fluid needs 1ml/kcal Nutrition Intervention Nutrition Support: Nepro at 35ml/hr with 150ml water flush q4h. Kcal 1,512 Protein (gm) 68 Carbohydrates (gm) 135 Fat (gm) 81 Fluid (mL) 611 Fiber (gm) 11 Goal #1 TF tolerance Goal #2 TF to meet at least 75% energy and pro needs Anticipated Discharge Needs: Continue TF if necessary Follow-Up By: 04/24/21 Additional Comments F/U: new TF, vent status
[2021-04-23] MEDS: levETIRAcetam 750 MG in DEXTROSE 5% IN WATER 100 ML IV SCH ×2 (04:26→16:27)
--- NOTE | 2021-04-23 04:31 | XRay Report ---
CHEST 1 VIEW 04/23/2021 3:13 AM INDICATION / CLINICAL INFORMATION: follow up respiratory failure. COMPARISON: 04/22/2021 FINDINGS: SUPPORT DEVICES: Unchanged. HEART / MEDIASTINUM: Unchanged LUNGS / PLEURA: Interstitial and airspace opacities persist. Pleural effusion persists on the left. N o pneumothorax. ADDITIONAL FINDINGS: No significant additional findings. IMPRESSION: 1. No significant change. Signer Name: Cesario Perez MD Signed: 04/23/2021 4:27 AM Workstation Name: [id number]
[2021-04-23] MEDS: HEPARIN/ 0.45% NACL DRIP 25,000 UNIT/500 ML BAG IV SCH ×2 (05:49→11:21)
[2021-04-23] MEDS ORDERED: cefTRIAXone/NS 2 GM/100 ML 2 GM/100 ML BAG IV SCH (06:00)
--- NOTE | 2021-04-23 09:15 | Electrocardiograph Report ---
[facility] Test Date: 2021-04-21 Test Time: 14:33:58 Pat Name: TYSHAWN DARBY Department: Room: A261 Gender: F Orchard Manager: [id number] : 1955 Requested By: FIORDALIZA JEFFRIES Order Number: [id number] Reading MD: Luke Clark Measurements Intervals [place] Rate: 123 P: 69 IA: 111 QRS: 32 QRSD: 63 T: 53 QT: 302 QTc: 432 Interpretive Statements Sinus tachycardia Left atrial enlargement No previous ECG available for comparison Electronically Signed On 04-23-2021 9:14:34 EDT by Luke Clark
--- NOTE | 2021-04-23 09:21 | Consultation ---
History of Present Illness Consult date: 04/23/21 Requesting physician: GERRI MUNSON Reason for consult: hypoxemia History of present illness: Per [facility] patient intubated for airway protection but is very hypoxic on ABG post inbutation. Per [facility], patient admitted with seizures, new onset so intubated for airway protection. Currently sedated so not able to obtain any history. Past History Past Medical History: hypertension, hyperlipidemia, stroke Social history: lives with family Medications and Allergies Allergies Allergy/AdvReac Type Severity Reaction Status Date / Time No Known Allergies Allergy Unverified 03/04/19 19:33 Home Medications Medication Instructions Recorded Confirmed Last Taken Type Aspirin 325 mg PO QDAY #30 tablet 03/10/19 Unknown Rx Lipitor 40 mg PO QHS #30 03/10/19 Unknown Rx amLODIPine 5 mg PO QDAY #30 tablet 03/10/19 Unknown Rx Active Meds: Active Medications Acetaminophen (Acetaminophen 325 Mg Tab) 650 mg PO Q4H PRN PRN Reason: Pain MILD(1-3)/Fever >100.5/[place] Lipase/Protease/Amylase (Lipase 10,500/Protease 25,000/Amylase 43,750 (Units) Dr Cap) 1 each FEEDTUBE PRN PRN PRN Reason: For Clogged Feeding Tube Famotidine (Famotidine 20 Mg/2 Ml Inj) 20 mg IV BID MINOR Last Admin: 04/22/21 22:40 Dose: 20 mg Documented by: Fentanyl (Fentanyl 100 Mcg/2 Ml Inj) 50 mcg IV Q10MIN PRN PRN Reason: ANALGESIA Heparin Sodium (Porcine) (Heparin 10,000 Units/10 Ml Vial) 2,800 unit 40 unit/kg (2800 unit) IV Q6H PRN PRN Reason: Anti-Xa Assay < 0.1 units/ml Hydromorphone HCl (Hydromorphone 1 Mg/1 Ml Inj) 0.5 mg IV Q3H PRN PRN Reason: Pain , Severe (7-10) Hydrophilic Ointment (Lip Therapy Vaseline) 1 applic TP Q2HR PRN PRN Reason: Dry Lips Fentanyl Citrate (Fentanyl Drip Premix) 2,000 mcg in 100 mls @ 3.515 mls/hr IV TITR MINOR; Protocol Last Titration: 04/23/21 07:10 Dose: 2 mcg/kg/hr, 7.031 mls/hr Documented by: Levetiracetam 750 mg/ Dextrose 107.5 mls @ 400 mls/hr IV Q12H [facility] Last Infusion: 04/23/21 04:45 Dose: Infused Documented by: Ceftriaxone Sodium (Rocephin/Ns 2 Gm/100 Ml) 2 gm in 100 mls @ 200 mls/hr IV Q24H [facility]; Protocol Last Infusion: 04/23/21 06:20 Dose: Infused Documented by: Heparin Sodium/Sodium Chloride (Heparin/ 0.45% Nacl-25,000 Unit/500 Ml) 25,000 unit in 500 mls @ 23 mls/hr IV TITR MINOR; Protocol Morphine Sulfate (Morphine 2 Mg/1 Ml Inj) 2 mg IV Q4H PRN PRN Reason: Pain, Moderate (4-6) Multi-Ingred Cream/Lotion/Oil/Oint (Mineral Oil/Petrolatum, White Ophth Oint 3.5 Gm) 1 applic OU Q4HR PRN PRN Reason: Dry Eye(s) Ondansetron HCl (Ondansetron 4 Mg/2 Ml Inj) 4 mg IV Q8H PRN PRN Reason: Nausea And Vomiting Senna/Docusate Sodium (Sennosides/Docusate Sodium 8.6/50 Mg Tab) 1 tab FEEDTUBE BID [facility] Last Admin: 04/22/21 22:40 Dose: 1 tab Documented by: Simple Syrup (Simple Syrup 15 Ml) 15 ml FEEDTUBE PRN PRN PRN Reason: Hypoglycemia Simple Syrup (Simple Syrup 15 Ml) 30 ml FEEDTUBE PRN PRN PRN Reason: Hypoglycemia Sodium Bicarbonate (Sodium Bicarbonate 325 Mg Tab) 325 mg FEEDTUBE PRN PRN PRN Reason: For Clogged Feeding Tube Sodium Chloride (Sodium Chloride 0.9% 10 Ml Flush Syringe) 10 ml IV BID [facility] Last Admin: 04/22/21 22:40 Dose: 10 ml Documented by: Sodium Chloride (Sodium Chloride 0.9% 10 Ml Flush Syringe) 10 ml IV PRN PRN PRN Reason: LINE FLUSH Physical Examination Vital signs: Vital Signs Temp Pulse Resp BP Pulse Ox 98.2 F 125 H 35 H 112/71 67 L 04/21/21 14:32 04/21/21 14:32 04/21/21 14:32 04/21/21 14:32 04/21/21 14:32 Results - Laboratory Findings CBC and BMP: 04/24/21 10:00 04/24/21 10:00 ABG ABG pH 7.414 (7.320-7.450) 04/23/21 04:42 POC ABG pCO2 38.3 mmHg (32.0-48.0) 04/23/21 04:42 ABG pCO2 46.0 mm Hg 04/22/21 17:30 ABG pO2 99.6 mm Hg (80.0-90.0) H 04/22/21 17:30 POC ABG HCO3 24.0 04/23/21 04:42 ABG O2 Saturation 84.0 (0-100) 04/23/21 04:42 PT/INR, D-dimer PT 13.2 Sec. (12.2-14.9) 04/22/21 00:32 INR 0.95 (0.87-1.13) 04/22/21 00:32 D-Dimer 1522.26 ng/mlDDU (0-234) H 04/21/21 16:30 Abnormal lab findings: Abnormal Labs 04/21/21 04/21/21 04/21/21 14:40 15:42 16:30 RBC Hgb Hct RDW Lymph % (Auto) [place] % (Auto) Lymph # (Auto) Seg Neutrophils % Seg Neuts % (Manual) Lymphocytes % (Manual) Monocytes % (Manual) Lymphocytes # (Manual) D-Dimer 1522.26 H Heparin Anti-Xa Level ABG pH POC ABG pO2 45.5 L 69.9 L ABG pO2 ABG Oxyhemoglobin 78.6 L 90.2 L ABG Potassium ABG Chloride 111.0 H ABG Glucose 156 H 148 H Carboxyhemoglobin Potassium Carbon Dioxide BUN Creatinine Glucose AST ALT Total Creatine Kinase CK-MB (CK-2) Troponin T Albumin Triglycerides Cholesterol LDL Cholesterol Direct HDL Cholesterol Arterial Blood Glucose 156 H 148 H Arterial Blood Ionized Calcium 4.5 L Urine Creatinine Urine Total Protein 04/21/21 04/21/21 04/22/21 16:32 16:32 00:32 RBC 5.22 H Hgb 16.2 H 14.8 H Hct 48.6 H 44.4 H RDW 15.8 H Lymph % (Auto) [place] % (Auto) Lymph # (Auto) Seg Neutrophils % Seg Neuts % (Manual) 79.0 H Lymphocytes % (Manual) 13.0 L Monocytes % (Manual) 8.0 H Lymphocytes # (Manual) 1.1 L D-Dimer Heparin Anti-Xa Level ABG pH POC ABG pO2 ABG pO2 ABG Oxyhemoglobin ABG Potassium ABG Chloride ABG Glucose Carboxyhemoglobin Potassium Carbon Dioxide 21 L BUN 24 H Creatinine 1.3 H Glucose 130 H AST 129 H ALT 61 H Total Creatine Kinase 3055 H CK-MB (CK-2) 22.4 H Troponin T 0.055 H Albumin 3.6 L Triglycerides 235 H Cholesterol 220 H LDL Cholesterol Direct 142 H HDL Cholesterol 36 L Arterial Blood Glucose Arterial Blood Ionized Calcium Urine Creatinine Urine Total Protein 04/22/21 04/22/21 04/22/21 03:27 05:29 05:29 RBC Hgb 15.4 H Hct 45.8 H RDW 16.0 H Lymph % (Auto) 12.0 L Cowley % (Auto) 8.0 H Lymph # (Auto) 1.1 L Seg Neutrophils % 76.3 H Seg Neuts % (Manual) Lymphocytes % (Manual) Monocytes % (Manual) Lymphocytes # (Manual) D-Dimer Heparin Anti-Xa Level ABG pH POC ABG pO2 ABG pO2 ABG Oxyhemoglobin ABG Potassium 4.7 H ABG Chloride 109.0 H ABG Glucose 155 H Carboxyhemoglobin 0.4 L Potassium 6.3 H* D Carbon Dioxide BUN 26 H Creatinine Glucose 134 H AST 123 H ALT Total Creatine Kinase CK-MB (CK-2) Troponin T Albumin 3.6 L Triglycerides Cholesterol LDL Cholesterol Direct HDL Cholesterol Arterial Blood Glucose 155 H Arterial Blood Ionized Calcium Urine Creatinine Urine Total Protein 04/22/21 04/22/21 04/22/21 13:03 13:25 17:30 RBC Hgb Hct RDW Lymph % (Auto) [place] % (Auto) Lymph # (Auto) Seg Neutrophils % Seg Neuts % (Manual) Lymphocytes % (Manual) Monocytes % (Manual) Lymphocytes # (Manual) D-Dimer Heparin Anti-Xa Level ABG pH 7.343 L POC ABG pO2 ABG pO2 99.6 H ABG Oxyhemoglobin ABG Potassium ABG Chloride ABG Glucose Carboxyhemoglobin Potassium Carbon Dioxide BUN Creatinine Glucose AST ALT Total Creatine Kinase 2322 H CK-MB (CK-2) Troponin T Albumin Triglycerides Cholesterol LDL Cholesterol Direct HDL Cholesterol Arterial Blood Glucose Arterial Blood Ionized Calcium Urine Creatinine 138.9 H Urine Total Protein 86 H 04/22/21 04/23/21 20:00 04:42 RBC Hgb Hct RDW Lymph % (Auto) [place] % (Auto) Lymph # (Auto) Seg Neutrophils % Seg Neuts % (Manual) Lymphocytes % (Manual) Monocytes % (Manual) Lymphocytes # (Manual) D-Dimer Heparin Anti-Xa Level 2.00 H ABG pH POC ABG pO2 ABG pO2 ABG Oxyhemoglobin 83.2 L ABG Potassium ABG Chloride 113.0 H ABG Glucose 107 H Carboxyhemoglobin Potassium Carbon Dioxide BUN Creatinine Glucose AST ALT Total Creatine Kinase CK-MB (CK-2) Troponin T Albumin Triglycerides Cholesterol LDL Cholesterol Direct HDL Cholesterol Arterial Blood Glucose 107 H Arterial Blood Ionized Calcium Urine Creatinine Urine Total Protein Assessment and Plan 66 y/o female, intubated for airway protection, found to have severe ILD and no has refractory hypoxemia. 1. Increase PEEP and repeat ABG 2. May need to consider IV steroids 3. Follow up neuro recs 4. Guarded prognosis. cCT 31 minutes.
--- NOTE | 2021-04-23 10:34 | Progress Note ---
<IAIN JOVEL Babita - Last Filed: 04/23/21 15:03> Assessment and Plan Assessment and plan: Per ER... - The patient is a 66-year-old female present with a chief complaint of altered mental status. Per EMS the patient has a history of previous CVA with left- sided weakness. Family reported that the patient developed increased left-sided weakness 3 days ago. The patient was taken to the emergency department but refused to be seen so family brought the patient back home. The following day the patient "stopped speaking" and family eventually brought the patient into the ED today as there was no improvement. Patient opens her eyes to sternal rub and answers some questions but appears confused. First oxygen saturation in ER was 69%. Pt intubated for airway protection and hypoxia believed to be due to unprotected airway post seizure. Pt was ER hold and arrived to ICU overnight PMH HTN HLD CVA 2 Y AGO with left sided residual weakness NOK daughter (see previous encounter note 07/2019) NEURO hx CVA with l sided weakness; new onset sz new onset sz UDS neg on admit CK elevated- Cr elevated had been getting IVF but due to hypoxia the IVF were d/c by Dr Arrington neuro following LUE with spasticity and contraction of l hand; noted pt flexing legs; PERRL; no commands CT head on admit- IMPRESSION: Encephalomalacia in the right temporal lobe, frontal lobe; no ac markie/subacute parenchymal lesions MRI today- Encephalomalacia in the right cerebral hemisphere - see report on keppra fentanyl for sedation daily SAT family updated on plan of care case management following CV: hx htn on norvasc at home per EMR asa/statin echo 04/22 see report SR-ST no pressors RESP acute resp failure with PE on CTA intubated in ER; remains ventilated see EMR for titration CT noted - a/c lung disease evident with LPA PE's noted remains hypoxic but with some improvement covid pending US BLE today - report pending chest xray no focal consolidation GI -nap TF nutrition following PPI bowel reg -LIZBETH/rhabdo sp sz corral strict I/O pt net pos 1.4 L over the last 24 hours trend and replace electrolytes as needed trend BUN/CR/CK nephrology following IVF d/c per Dr Arrington due volume contributing to hypoxia HEME- PE VTE on hep for PE heparin drip for known PE trending coags/Xa trend CBC no bleeding on exam LE dopplers completed- results pending AM labs resulted "TNR"- resent at 1430 AM labs ordered for 04/24 ID- nap covid pending follow cultures 04/21 sputum culture afebrile no antibiotics at this time are indicated continue to trend temp and WBC curve ENDO stress hyperglycemia blood glucose monitoring avoid hypoglycemia Disposition Plan: tbd Total Time Spent with Patient (Minutes): 60 History Interval history: no acute overnight events Hospitalist Physical - Constitutional Vitals: Temp Pulse Resp BP Pulse Ox 98.1 F 87 20 103/68 95 04/23/21 07:32 04/23/21 08:50 04/23/21 08:31 04/23/21 08:50 04/23/21 08:50 General appearance: Present: no acute distress, well-nourished, other (Sedated on vent) - EENT Eyes: Present: PERRL ENT: clear oral mucosa - Neck Neck: Present: supple - Respiratory Respiratory effort: normal - Cardiovascular Rhythm: regular Heart Sounds: Present: S1 & S2 - Extremities Extremities: no ischemia Peripheral Pulses: within normal limits - Abdominal General gastrointestinal: soft - Integumentary Integumentary: Present: clear, warm, dry - Psychiatric Psychiatric: other - Neurologic Neurologic: other (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) - Allied Health Allied health notes reviewed: nursing, RT, social work, case management HEART Score - HEART Score Troponin: Troponin T 0.055 ng/mL (0.00-0.029) H 04/21/21 16:32 Results - Labs CBC & Chem 7: 04/23/21 09:53 04/23/21 09:53 Labs: Laboratory Last Values WBC 8.8 K/mm3 (4.5-11.0) 04/22/21 05:29 RBC 4.95 M/mm3 (3.65-5.03) 04/22/21 05:29 Hgb 15.4 gm/dl (10.1-14.3) H 04/22/21 05:29 Hct 45.8 % (30.3-42.9) H 04/22/21 05:29 MCV 93 fl (79-97) 04/22/21 05:29 MCH 31 pg (28-32) 04/22/21 05:29 MCHC 34 % (30-34) 04/22/21 05:29 RDW 16.0 % (13.2-15.2) H 04/22/21 05:29 Plt Count 259 K/mm3 (140-440) 04/22/21 05:29 Lymph % (Auto) 12.0 % (13.4-35.0) L 04/22/21 05:29 [place] % (Auto) 8.0 % (0.0-7.3) H 04/22/21 05:29 Eos % (Auto) 3.0 % (0.0-4.3) 04/22/21 05:29 Baso % (Auto) 0.7 % (0.0-1.8) 04/22/21 05:29 Lymph # (Auto) 1.1 K/mm3 (1.2-5.4) L 04/22/21 05:29 [place] # (Auto) 0.7 K/mm3 (0.0-0.8) 04/22/21 05:29 Eos # (Auto) 0.3 K/mm3 (0.0-0.4) 04/22/21 05:29 Baso # (Auto) 0.1 K/mm3 (0.0-0.1) 04/22/21 05:29 Add Manual Diff Complete 04/21/21 16:32 Total Counted 100 04/21/21 16:32 Seg Neutrophils % 76.3 % (40.0-70.0) H 04/22/21 05:29 Seg Neuts % (Manual) 79.0 % (40.0-70.0) H 04/21/21 16:32 Lymphocytes % (Manual) 13.0 % (13.4-35.0) L 04/21/21 16:32 Monocytes % (Manual) 8.0 % (0.0-7.3) H 04/21/21 16:32 Nucleated RBC % Not Reportable 04/21/21 16:32 Seg Neutrophils # 6.7 K/mm3 (1.8-7.7) 04/22/21 05:29 Seg Neutrophils # Man 6.6 K/mm3 (1.8-7.7) 04/21/21 16:32 Band Neutrophils # 0.0 K/mm3 04/21/21 16:32 Lymphocytes # (Manual) 1.1 K/mm3 (1.2-5.4) L 04/21/21 16:32 Abs React Lymphs (Man) 0.0 K/mm3 04/21/21 16:32 Monocytes # (Manual) 0.7 K/mm3 (0.0-0.8) 04/21/21 16:32 Eosinophils # (Manual) 0.0 K/mm3 (0.0-0.4) 04/21/21 16:32 Basophils # (Manual) 0.0 K/mm3 (0.0-0.1) 04/21/21 16:32 Metamyelocytes # 0.0 K/mm3 04/21/21 16:32 Myelocytes # 0.0 K/mm3 04/21/21 16:32 Promyelocytes # 0.0 K/mm3 04/21/21 16:32 Blast Cells # 0.0 K/mm3 04/21/21 16:32 WBC Morphology Not Reportable 04/21/21 16:32 Hypersegmented Neuts Not Reportable 04/21/21 16:32 Hyposegmented Neuts Not Reportable 04/21/21 16:32 Hypogranular Neuts Not Reportable 04/21/21 16:32 Smudge Cells Not Reportable 04/21/21 16:32 Toxic Granulation Not Reportable 04/21/21 16:32 Toxic Vacuolation Not Reportable 04/21/21 16:32 Dohle Bodies Not Reportable 04/21/21 16:32 Pelger-Huet Anomaly Not Reportable 04/21/21 16:32 Brenda Rods Not Reportable 04/21/21 16:32 Platelet Estimate Consistent w auto 04/21/21 16:32 Clumped Platelets Not Reportable 04/21/21 16:32 Plt Clumps, EDTA Not Reportable 04/21/21 16:32 Large Platelets Not Reportable 04/21/21 16:32 Giant Platelets Not Reportable 04/21/21 16:32 Platelet Satelliting Not Reportable 04/21/21 16:32 Plt Morphology Comment Not Reportable 04/21/21 16:32 RBC Morphology Not Reportable 04/21/21 16:32 Dimorphic RBCs Not Reportable 04/21/21 16:32 Polychromasia Not Reportable 04/21/21 16:32 Hypochromasia Not Reportable 04/21/21 16:32 Poikilocytosis Not Reportable 04/21/21 16:32 Anisocytosis 1+ 04/21/21 16:32 Microcytosis Not Reportable 04/21/21 16:32 Macrocytosis Not Reportable 04/21/21 16:32 Spherocytes Not Reportable 04/21/21 16:32 Pappenheimer Bodies Not Reportable 04/21/21 16:32 Sickle Cells Not Reportable 04/21/21 16:32 Target Cells Not Reportable 04/21/21 16:32 Tear Drop Cells Not Reportable 04/21/21 16:32 Ovalocytes Not Reportable 04/21/21 16:32 Helmet Cells Not Reportable 04/21/21 16:32 [place] Bodies Not Reportable 04/21/21 16:32 Ryde Rings Not Reportable 04/21/21 16:32 [place] Cells Not Reportable 04/21/21 16:32 Bite Cells Not Reportable 04/21/21 16:32 Crenated Cell Not Reportable 04/21/21 16:32 Elliptocytes Not Reportable 04/21/21 16:32 Acanthocytes (Spur) Not Reportable 04/21/21 16:32 Rouleaux Not Reportable 04/21/21 16:32 Hemoglobin C Crystals Not Reportable 04/21/21 16:32 Schistocytes Not Reportable 04/21/21 16:32 Malaria parasites Not Reportable 04/21/21 16:32 Uli Bodies Not Reportable 04/21/21 16:32 Hem Pathologist Commnt No 04/21/21 16:32 PT 13.2 Sec. (12.2-14.9) 04/22/21 00:32 INR 0.95 (0.87-1.13) 04/22/21 00:32 APTT 29.2 Sec. (24.2-36.6) 04/22/21 00:32 D-Dimer 1522.26 ng/mlDDU (0-234) H 04/21/21 16:30 Heparin Anti-Xa Level 2.00 U.I./ml (0.3-0.7) H 04/22/21 20:00 ABG pH 7.414 (7.320-7.450) 04/23/21 04:42 POC ABG pCO2 38.3 mmHg (32.0-48.0) 04/23/21 04:42 ABG pCO2 46.0 mm Hg 04/22/21 17:30 POC ABG pO2 94.1 mmHg (83-108) 04/22/21 03:27 ABG pO2 99.6 mm Hg (80.0-90.0) H 04/22/21 17:30 POC ABG HCO3 24.0 04/23/21 04:42 ABG HCO3 24.4 mmol/L (20.0-26.0) 04/22/21 17:30 ABG O2 Saturation 84.0 (0-100) 04/23/21 04:42 ABG O2 Content 19.9 (0.0-44) 04/22/21 17:30 POC ABG Base Excess -0.4 04/23/21 04:42 ABG Base Excess -1.6 mmol/L (-2.0-3.0) 04/22/21 17:30 ABG Hemoglobin 14.1 (12.0-17.5) 04/23/21 04:42 ABG Oxyhemoglobin 83.2 (94-98) L 04/23/21 04:42 ABG Carboxyhemoglobin 0.9 % (0.0-5.0) 04/22/21 17:30 ABG Methemoglobin 0.3 (0.0-1.5) 04/23/21 04:42 ABG Sodium 142.4 mmol/L (136.0-145.0) 04/23/21 04:42 ABG Potassium 4.5 mmol/L (3.40-4.50) 04/23/21 04:42 ABG Chloride 113.0 mmol/L (98-107) H 04/23/21 04:42 ABG Glucose 107 mg/dL (65-95) H 04/23/21 04:42 Oxyhemoglobin 95.9 % (95.0-99.0) 04/22/21 17:30 Carboxyhemoglobin 0.7 (0.5-1.5) 04/23/21 04:42 FiO2 100 % 04/22/21 17:30 FiO2 % 80.0 04/23/21 04:42 Sodium 150 mmol/L (137-145) H 04/23/21 09:53 Potassium 4.9 mmol/L (3.6-5.0) D 04/22/21 13:25 Chloride 135.3 mmol/L (98-107) H 04/23/21 09:53 Carbon Dioxide 22 mmol/L (22-30) 04/22/21 05:29 Anion Gap 21 mmol/L 04/22/21 05:29 BUN 6 mg/dL (7-17) L 04/23/21 09:53 Creatinine 1.1 mg/dL (0.6-1.2) 04/22/21 05:29 Estimated GFR > 60 ml/min 04/22/21 05:29 BUN/Creatinine Ratio 24 % 04/22/21 05:29 Glucose 52 mg/dL (65-100) L 04/23/21 09:53 POC Glucose 98 mg/dL (70-105) 04/23/21 05:26 Calcium 9.0 mg/dL (8.4-10.2) 04/22/21 05:29 Total Bilirubin < 0.20 mg/dL (0.1-1.2) 04/23/21 09:53 AST 14 units/L (5-40) 04/23/21 09:53 ALT 7 units/L (7-56) 04/23/21 09:53 Alkaline Phosphatase 16 units/L (35-129) L 04/23/21 09:53 Ammonia 56.0 umol/L (25-60) 04/21/21 16:32 Total Creatine Kinase 179 units/L (30-135) H 04/23/21 09:53 CK-MB (CK-2) 22.4 ng/mL (0.0-4.0) H 04/21/21 16:32 CK-MB (CK-2) Rel Index 0.7 (0-4) 04/21/21 16:32 Troponin T 0.055 ng/mL (0.00-0.029) H 04/21/21 16:32 Total Protein 6.5 g/dL (6.3-8.2) 04/22/21 05:29 Albumin 0.4 g/dL (3.9-5) L 04/23/21 09:53 Albumin/Globulin Ratio 0.4 % 04/23/21 09:53 Triglycerides 235 mg/dL (2-149) H 04/21/21 16:32 Cholesterol 220 mg/dL (50-199) H 04/21/21 16:32 LDL Cholesterol Direct 142 mg/dL (50-130) H 04/21/21 16:32 HDL Cholesterol 36 mg/dL (40-59) L 04/21/21 16:32 Cholesterol/HDL Ratio 6.11 % 04/21/21 16:32 TSH 0.876 mlU/mL (0.270-4.200) 04/21/21 16:32 Free T4 1.05 ng/dL (0.76-1.46) 04/21/21 16:32 Arterial Blood Glucose 107 mg/dL (65-95) H 04/23/21 04:42 Arterial Blood Ionized Calcium 4.9 mg/dL (4.6-5.3) 04/23/21 04:42 Urine Color Yellow (Yellow) 04/21/21 Unknown Urine Turbidity Clear (Clear) 04/21/21 Unknown Urine pH 5.0 (5.0-7.0) 04/21/21 Unknown Ur Specific Smilax 1.014 (1.003-1.030) 04/21/21 Unknown Urine Protein 100 mg/dl mg/dL (Negative) 04/21/21 Unknown Urine Glucose (UA) Neg mg/dL (Negative) 04/21/21 Unknown Urine Ketones Tr mg/dL (Negative) 04/21/21 Unknown Urine Blood Lg (Negative) 04/21/21 Unknown Urine Nitrite Neg (Negative) 04/21/21 Unknown Urine Bilirubin Neg (Negative) 04/21/21 Unknown Urine Urobilinogen 2.0 mg/dL (<2.0) 04/21/21 Unknown Ur Leukocyte Esterase Neg (Negative) 04/21/21 Unknown Urine WBC (Auto) 5.0 /HPF (0.0-6.0) 04/21/21 Unknown Urine RBC (Auto) 1.0 /HPF (0.0-6.0) 04/21/21 Unknown U Epithel Cells (Auto) 1.0 /HPF (0-13.0) 04/21/21 Unknown Urine Mucus Few /HPF 04/21/21 Unknown Urine Creatinine 138.9 mg/dL (0.1-20.0) H 04/22/21 13:03 Urine Total Protein 86 mg/dL (5-11.8) H 04/22/21 13:03 Urine Opiates Screen Negative 04/21/21 Unknown Urine Methadone Screen Negative 04/21/21 Unknown Ur Barbiturates Screen Negative 04/21/21 Unknown Ur Phencyclidine Scrn Negative 04/21/21 Unknown Ur Amphetamines Screen Negative 04/21/21 Unknown U Benzodiazepines Scrn Negative 04/21/21 Unknown Urine Cocaine Screen Negative 04/21/21 Unknown U Marijuana (THC) Screen Negative 04/21/21 Unknown Drugs of Abuse Note Disclamer 04/21/21 Unknown Plasma/Serum Alcohol < 0.01 % (0-0.07) 04/21/21 16:32 Microbiology: ngtd - Imaging and Cardiology Chest x-ray: image reviewed CT scan - chest: image reviewed, other (on admit - PE) CT Scan - head: other (on admit- see report) MRI - head: image reviewed, other (report pending) Venous US: other (pending ) [place]/IV: Voiding Method Indwelling Catheter Active Medications - Current Medications Current Medications: Generic Name Dose Route Start Last Admin Trade Name Freq PRN Reason Stop Dose Admin Acetaminophen 650 mg 04/21/21 21:11 Acetaminophen 325 Mg Tab PO Q4H PRN Pain MILD(1-3)/Fever >100.5/DICKINSON Lipase/Protease/Amylase 1 each 04/22/21 10:51 Lipase 10,500/Protease 25,000/Amylase 43,750 (Units) Dr Ryan FEEDTUBE PRN PRN For Clogged Feeding Tube Famotidine 20 mg 04/21/21 22:00 04/22/21 22:40 Famotidine 20 Mg/2 Ml Inj IV 20 mg BID MINOR Administration Fentanyl 50 mcg 04/21/21 15:46 Fentanyl 100 Mcg/2 Ml Inj IV Q10MIN PRN ANALGESIA Heparin Sodium (Porcine) 2,800 unit 04/22/21 00:05 Heparin 10,000 Units/10 Ml Vial 40 unit/kg (2800 unit) IV Q6H PRN Anti-Xa Assay < 0.1 units/ml Hydromorphone HCl 0.5 mg 04/21/21 21:26 Hydromorphone 1 Mg/1 Ml Inj IV Q3H PRN Pain , Severe (7-10) Hydrophilic Ointment 1 applic 04/21/21 15:46 Lip Therapy Vaseline TP Q2HR PRN Dry Lips Fentanyl Citrate 2,000 mcg in 100 mls @ 3.515 mls/hr 04/21/21 16:00 04/23/21 07:10 Fentanyl Drip Premix IV 2 mcg/kg/hr TITR MINOR 7.031 mls/hr Titration Protocol 1 MCG/KG/HR Levetiracetam 750 mg/ Dextrose 107.5 mls @ 400 mls/hr 04/22/21 04:00 04/23/21 04:45 IV Infused Q12H MINOR Infusion Heparin Sodium/Sodium Chloride 25,000 unit in 500 mls @ 23 mls/hr 04/23/21 08:00 Heparin/ 0.45% Nacl-25,000 Unit/500 Ml IV TITR MINOR Protocol 1,150 UNITS/HR Morphine Sulfate 2 mg 04/21/21 21:26 Morphine 2 Mg/1 Ml Inj IV Q4H PRN Pain, Moderate (4-6) Multi-Ingred Cream/Lotion/Oil/Oint 1 applic 04/21/21 15:46 Mineral Oil/Petrolatum, White Ophth Oint 3.5 Gm OU Q4HR PRN Dry Eye(s) Ondansetron HCl 4 mg 04/21/21 21:11 Ondansetron 4 Mg/2 Ml Inj IV Q8H PRN Nausea And Vomiting Senna/Docusate Sodium 1 tab 04/21/21 22:00 04/22/21 22:40 Sennosides/Docusate Sodium 8.6/50 Mg Tab FEEDTUBE 1 tab BID MINOR Administration Simple Syrup 15 ml 04/22/21 10:51 Simple Syrup 15 Ml FEEDTUBE PRN PRN Hypoglycemia Simple Syrup 30 ml 04/22/21 10:51 Simple Syrup 15 Ml FEEDTUBE PRN PRN Hypoglycemia Sodium Bicarbonate 325 mg 04/22/21 10:51 Sodium Bicarbonate 325 Mg Tab FEEDTUBE PRN PRN For Clogged Feeding Tube Sodium Chloride 10 ml 04/21/21 22:00 04/22/21 22:40 Sodium Chloride 0.9% 10 Ml Flush Syringe IV 10 ml BID MINOR Administration Sodium Chloride 10 ml 04/21/21 21:11 Sodium Chloride 0.9% 10 Ml Flush Syringe IV PRN PRN LINE FLUSH Nutrition/Malnutrition Assess - Dietary Evaluation Nutrition/Malnutrition Findings: Nutrition Notes Start: 04/22/21 10:45 Freq: Status: Active Protocol: Document 04/22/21 10:45 MAYRA (Rec: 04/22/21 10:51 MAYRA [id number]) Nutrition Notes Need for Assessment generated from: MD Order Initial or Follow up Assessment Current Diagnosis Acute Kidney Injury, Hypertension,Stroke, Hyperlipidemia Other Pertinent Diagnosis New onset seizures, AMS, pulmonary embolism Current Diet No diet ordered Labs/Tests K 6.3 BUN 26 Pertinent Medications Heparin gtt Height 5 ft 9 in Weight 70.307 kg [place] Body Weight (kg) 65.90 BMI 22.8 Weight Status Appropriate Subjective/Other Information RD consulted to evaluate nutritional intake and TF. Pt in ED at this time and on vent support. Burn Absent Trauma Absent Minimum of two criteria No #1 Nutrition Diagnosis Inadequate oral intake Etiology mech ventilation As Evidenced by Signs and Symptoms pt NPO Is patient on ventilator? Yes Is Patient Ambulatory and/or Out of Bed No REE-(Lathrop-St. Jeor-confined to bed) [phone] Calculation Used for Recommendations Lathrop-St Jeor Additional Notes Pro needs 1.2-2g/k-141g/ day Fluid needs 1ml/kcal Nutrition Intervention Nutrition Support: Nepro at 35ml/hr with 150ml water flush q4h. Kcal 1,512 Protein (gm) 68 Carbohydrates (gm) 135 Fat (gm) 81 Fluid (mL) 611 Fiber (gm) 11 Goal #1 TF tolerance Goal #2 TF to meet at least 75% energy and pro needs Anticipated Discharge Needs: Continue TF if necessary Follow-Up By: 04/24/21 Additional Comments F/U: new TF, vent status - Attestation Statement I have reviewed and agreed w/ Malnutrition eval & tx plan: Yes <TAMIKA HERRERA - Last Filed: 04/23/21 15:11> Assessment and Plan Assessment and plan: I saw and evaluated the patient. I agree with the findings and the plan of care as documented in the Nurse Practitioner's~note, with the following corrections and additions. Critical care time 60mins Hospitalist Physical - Constitutional Vitals: Temp Pulse Resp BP Pulse Ox 98.4 F 98 H 24 114/64 95 04/23/21 12:26 04/23/21 14:31 04/23/21 14:31 04/23/21 14:31 04/23/21 14:31 HEART Score - HEART Score Troponin: Troponin T 0.055 ng/mL (0.00-0.029) H 04/21/21 16:32 Results - Labs CBC & Chem 7: 04/23/21 09:53 04/23/21 09:53 Labs: Laboratory Last Values WBC TNR 04/23/21 09:53 RBC TNR 04/23/21 09:53 Hgb TNR 04/23/21 09:53 Hct TNR 04/23/21 09:53 MCV TNR 04/23/21 09:53 MCH TNR 04/23/21 09:53 MCHC TNR 04/23/21 09:53 RDW TNR 04/23/21 09:53 Plt Count TNR 04/23/21 09:53 Lymph % (Auto) 12.0 % (13.4-35.0) L 04/22/21 05:29 [place] % (Auto) 8.0 % (0.0-7.3) H 04/22/21 05:29 Eos % (Auto) 3.0 % (0.0-4.3) 04/22/21 05:29 Baso % (Auto) 0.7 % (0.0-1.8) 04/22/21 05:29 Lymph # (Auto) 1.1 K/mm3 (1.2-5.4) L 04/22/21 05:29 [place] # (Auto) 0.7 K/mm3 (0.0-0.8) 04/22/21 05:29 Eos # (Auto) 0.3 K/mm3 (0.0-0.4) 04/22/21 05:29 Baso # (Auto) 0.1 K/mm3 (0.0-0.1) 04/22/21 05:29 Add Manual Diff Complete 04/21/21 16:32 Total Counted 100 04/21/21 16:32 Seg Neutrophils % 76.3 % (40.0-70.0) H 04/22/21 05:29 Seg Neuts % (Manual) 79.0 % (40.0-70.0) H 04/21/21 16:32 Lymphocytes % (Manual) 13.0 % (13.4-35.0) L 04/21/21 16:32 Monocytes % (Manual) 8.0 % (0.0-7.3) H 04/21/21 16:32 Nucleated RBC % Not Reportable 04/21/21 16:32 Seg Neutrophils # 6.7 K/mm3 (1.8-7.7) 04/22/21 05:29 Seg Neutrophils # Man 6.6 K/mm3 (1.8-7.7) 04/21/21 16:32 Band Neutrophils # 0.0 K/mm3 04/21/21 16:32 Lymphocytes # (Manual) 1.1 K/mm3 (1.2-5.4) L 04/21/21 16:32 Abs React Lymphs (Man) 0.0 K/mm3 04/21/21 16:32 Monocytes # (Manual) 0.7 K/mm3 (0.0-0.8) 04/21/21 16:32 Eosinophils # (Manual) 0.0 K/mm3 (0.0-0.4) 04/21/21 16:32 Basophils # (Manual) 0.0 K/mm3 (0.0-0.1) 04/21/21 16:32 Metamyelocytes # 0.0 K/mm3 04/21/21 16:32 Myelocytes # 0.0 K/mm3 04/21/21 16:32 Promyelocytes # 0.0 K/mm3 04/21/21 16:32 Blast Cells # 0.0 K/mm3 04/21/21 16:32 WBC Morphology Not Reportable 04/21/21 16:32 Hypersegmented Neuts Not Reportable 04/21/21 16:32 Hyposegmented Neuts Not Reportable 04/21/21 16:32 Hypogranular Neuts Not Reportable 04/21/21 16:32 Smudge Cells Not Reportable 04/21/21 16:32 Toxic Granulation Not Reportable 04/21/21 16:32 Toxic Vacuolation Not Reportable 04/21/21 16:32 Dohle Bodies Not Reportable 04/21/21 16:32 Pelger-Huet Anomaly Not Reportable 04/21/21 16:32 Brenda Rods Not Reportable 04/21/21 16:32 Platelet Estimate Consistent w auto 04/21/21 16:32 Clumped Platelets Not Reportable 04/21/21 16:32 Plt Clumps, EDTA Not Reportable 04/21/21 16:32 Large Platelets Not Reportable 04/21/21 16:32 Giant Platelets Not Reportable 04/21/21 16:32 Platelet Satelliting Not Reportable 04/21/21 16:32 Plt Morphology Comment Not Reportable 04/21/21 16:32 RBC Morphology Not Reportable 04/21/21 16:32 Dimorphic RBCs Not Reportable 04/21/21 16:32 Polychromasia Not Reportable 04/21/21 16:32 Hypochromasia Not Reportable 04/21/21 16:32 Poikilocytosis Not Reportable 04/21/21 16:32 Anisocytosis 1+ 04/21/21 16:32 Microcytosis Not Reportable 04/21/21 16:32 Macrocytosis Not Reportable 04/21/21 16:32 Spherocytes Not Reportable 04/21/21 16:32 Pappenheimer Bodies Not Reportable 04/21/21 16:32 Sickle Cells Not Reportable 04/21/21 16:32 Target Cells Not Reportable 04/21/21 16:32 Tear Drop Cells Not Reportable 04/21/21 16:32 Ovalocytes Not Reportable 04/21/21 16:32 Helmet Cells Not Reportable 04/21/21 16:32 [place] Bodies Not Reportable 04/21/21 16:32 Ryde Rings Not Reportable 04/21/21 16:32 Chay Cells Not Reportable 04/21/21 16:32 Bite Cells Not Reportable 04/21/21 16:32 Crenated Cell Not Reportable 04/21/21 16:32 Elliptocytes Not Reportable 04/21/21 16:32 Acanthocytes (Spur) Not Reportable 04/21/21 16:32 Rouleaux Not Reportable 04/21/21 16:32 Hemoglobin C Crystals Not Reportable 04/21/21 16:32 Schistocytes Not Reportable 04/21/21 16:32 Malaria parasites Not Reportable 04/21/21 16:32 Uli Bodies Not Reportable 04/21/21 16:32 Hem Pathologist Commnt No 04/21/21 16:32 PT 13.2 Sec. (12.2-14.9) 04/22/21 00:32 INR 0.95 (0.87-1.13) 04/22/21 00:32 APTT 29.2 Sec. (24.2-36.6) 04/22/21 00:32 D-Dimer 1522.26 ng/mlDDU (0-234) H 04/21/21 16:30 Heparin Anti-Xa Level < 0.10 U.I./ml (0.3-0.7) L 04/23/21 09:53 ABG pH 7.414 (7.320-7.450) 04/23/21 04:42 POC ABG pCO2 38.3 mmHg (32.0-48.0) 04/23/21 04:42 ABG pCO2 46.0 mm Hg 04/22/21 17:30 POC ABG pO2 94.1 mmHg (83-108) 04/22/21 03:27 ABG pO2 99.6 mm Hg (80.0-90.0) H 04/22/21 17:30 POC ABG HCO3 24.0 04/23/21 04:42 ABG HCO3 24.4 mmol/L (20.0-26.0) 04/22/21 17:30 ABG O2 Saturation 84.0 (0-100) 04/23/21 04:42 ABG O2 Content 19.9 (0.0-44) 04/22/21 17:30 POC ABG Base Excess -0.4 04/23/21 04:42 ABG Base Excess -1.6 mmol/L (-2.0-3.0) 04/22/21 17:30 ABG Hemoglobin 14.1 (12.0-17.5) 04/23/21 04:42 ABG Oxyhemoglobin 83.2 (94-98) L 04/23/21 04:42 ABG Carboxyhemoglobin 0.9 % (0.0-5.0) 04/22/21 17:30 ABG Methemoglobin 0.3 (0.0-1.5) 04/23/21 04:42 ABG Sodium 142.4 mmol/L (136.0-145.0) 04/23/21 04:42 ABG Potassium 4.5 mmol/L (3.40-4.50) 04/23/21 04:42 ABG Chloride 113.0 mmol/L (98-107) H 04/23/21 04:42 ABG Glucose 107 mg/dL (65-95) H 04/23/21 04:42 Oxyhemoglobin 95.9 % (95.0-99.0) 04/22/21 17:30 Carboxyhemoglobin 0.7 (0.5-1.5) 04/23/21 04:42 FiO2 100 % 04/22/21 17:30 FiO2 % 80.0 04/23/21 04:42 Sodium TNR 04/23/21 09:53 Potassium TNR 04/23/21 09:53 Chloride TNR 04/23/21 09:53 Carbon Dioxide TNR 04/23/21 09:53 Anion Gap TNR 04/23/21 09:53 BUN TNR 04/23/21 09:53 Creatinine TNR 04/23/21 09:53 Estimated GFR TNR 04/23/21 09:53 BUN/Creatinine Ratio TNR 04/23/21 09:53 Glucose TNR 04/23/21 09:53 POC Glucose 97 mg/dL (70-105) 04/23/21 11:29 Calcium TNR 04/23/21 09:53 Magnesium TNR 04/23/21 09:53 Total Bilirubin TNR 04/23/21 09:53 AST TNR 04/23/21 09:53 ALT TNR 04/23/21 09:53 Alkaline Phosphatase TNR 04/23/21 09:53 Ammonia 56.0 umol/L (25-60) 04/21/21 16:32 Total Creatine Kinase TNR 04/23/21 09:53 CK-MB (CK-2) 22.4 ng/mL (0.0-4.0) H 04/21/21 16:32 CK-MB (CK-2) Rel Index 0.7 (0-4) 04/21/21 16:32 Troponin T 0.055 ng/mL (0.00-0.029) H 04/21/21 16:32 Total Protein TNR 04/23/21 09:53 Albumin TNR 04/23/21 09:53 Albumin/Globulin Ratio TNR 04/23/21 09:53 Triglycerides 235 mg/dL (2-149) H 04/21/21 16:32 Cholesterol 220 mg/dL (50-199) H 04/21/21 16:32 LDL Cholesterol Direct 142 mg/dL (50-130) H 04/21/21 16:32 HDL Cholesterol 36 mg/dL (40-59) L 04/21/21 16:32 Cholesterol/HDL Ratio 6.11 % 04/21/21 16:32 TSH 0.876 mlU/mL (0.270-4.200) 04/21/21 16:32 Free T4 1.05 ng/dL (0.76-1.46) 04/21/21 16:32 Arterial Blood Glucose 107 mg/dL (65-95) H 04/23/21 04:42 Arterial Blood Ionized Calcium 4.9 mg/dL (4.6-5.3) 04/23/21 04:42 Urine Color Yellow (Yellow) 04/21/21 Unknown Urine Turbidity Clear (Clear) 04/21/21 Unknown Urine pH 5.0 (5.0-7.0) 04/21/21 Unknown Ur Specific Smilax 1.014 (1.003-1.030) 04/21/21 Unknown Urine Protein 100 mg/dl mg/dL (Negative) 04/21/21 Unknown Urine Glucose (UA) Neg mg/dL (Negative) 04/21/21 Unknown Urine Ketones Tr mg/dL (Negative) 04/21/21 Unknown Urine Blood Lg (Negative) 04/21/21 Unknown Urine Nitrite Neg (Negative) 04/21/21 Unknown Urine Bilirubin Neg (Negative) 04/21/21 Unknown Urine Urobilinogen 2.0 mg/dL (<2.0) 04/21/21 Unknown Ur Leukocyte Esterase Neg (Negative) 04/21/21 Unknown Urine WBC (Auto) 5.0 /HPF (0.0-6.0) 04/21/21 Unknown Urine RBC (Auto) 1.0 /HPF (0.0-6.0) 04/21/21 Unknown U Epithel Cells (Auto) 1.0 /HPF (0-13.0) 04/21/21 Unknown Urine Mucus Few /HPF 04/21/21 Unknown Urine Creatinine 138.9 mg/dL (0.1-20.0) H 04/22/21 13:03 Urine Total Protein 86 mg/dL (5-11.8) H 04/22/21 13:03 Urine Opiates Screen Negative 04/21/21 Unknown Urine Methadone Screen Negative 04/21/21 Unknown Ur Barbiturates Screen Negative 04/21/21 Unknown Ur Phencyclidine Scrn Negative 04/21/21 Unknown Ur Amphetamines Screen Negative 04/21/21 Unknown U Benzodiazepines Scrn Negative 04/21/21 Unknown Urine Cocaine Screen Negative 04/21/21 Unknown U Marijuana (THC) Screen Negative 04/21/21 Unknown Drugs of Abuse Note Disclamer 04/21/21 Unknown Plasma/Serum Alcohol < 0.01 % (0-0.07) 04/21/21 16:32 Coronavirus (PCR) Negative (Negative) 04/23/21 Unknown Microbiology: Microbiology 04/21/21 15:44 Tracheal Aspirate Sputum Culture - Preliminary [place]/IV: Voiding Method Indwelling Catheter Active Medications - Current Medications Current Medications: Generic Name Dose Route Start Last Admin Trade Name Freq PRN Reason Stop Dose Admin Acetaminophen 650 mg 04/21/21 21:11 Acetaminophen 325 Mg Tab PO Q4H PRN Pain MILD(1-3)/Fever >100.5/DICKINSON Lipase/Protease/Amylase 1 each 04/22/21 10:51 Lipase 10,500/Protease 25,000/Amylase 43,750 (Units) Dr Cap FEEDTUBE PRN PRN For Clogged Feeding Tube Famotidine 20 mg 04/21/21 22:00 04/23/21 10:42 Famotidine 20 Mg/2 Ml Inj IV 20 mg BID MINOR Administration Fentanyl 50 mcg 04/21/21 15:46 Fentanyl 100 Mcg/2 Ml Inj IV Q10MIN PRN ANALGESIA Heparin Sodium (Porcine) 2,800 unit 04/22/21 00:05 04/23/21 11:20 Heparin 10,000 Units/10 Ml Vial 40 unit/kg (2800 unit) 2,800 unit IV Administration Q6H PRN Anti-Xa Assay < 0.1 units/ml Hydrophilic Ointment 1 applic 04/21/21 15:46 Lip Therapy Vaseline TP Q2HR PRN Dry Lips Fentanyl Citrate 2,000 mcg in 100 mls @ 3.515 mls/hr 04/21/21 16:00 04/23/21 07:58 Fentanyl Drip Premix IV 1.5 mcg/kg/hr TITR MINOR 5.273 mls/hr Titration Protocol 1 MCG/KG/HR Levetiracetam 750 mg/ Dextrose 107.5 mls @ 400 mls/hr 04/22/21 04:00 04/23/21 04:45 IV Infused Q12H MINOR Infusion Heparin Sodium/Sodium Chloride 25,000 unit in 500 mls @ 23 mls/hr 04/23/21 08:00 04/23/21 11:21 Heparin/ 0.45% Nacl-25,000 Unit/500 Ml IV 1,100 units/hr TITR MINOR 22 mls/hr Administration Protocol 1,150 UNITS/HR Multi-Ingred Cream/Lotion/Oil/Oint 1 applic 04/21/21 15:46 Mineral Oil/Petrolatum, White Ophth Oint 3.5 Gm OU Q4HR PRN Dry Eye(s) Senna/Docusate Sodium 1 tab 04/21/21 22:00 04/23/21 10:42 Sennosides/Docusate Sodium 8.6/50 Mg Tab FEEDTUBE 1 tab BID MINOR Administration Simple Syrup 15 ml 04/22/21 10:51 Simple Syrup 15 Ml FEEDTUBE PRN PRN Hypoglycemia Simple Syrup 30 ml 04/22/21 10:51 Simple Syrup 15 Ml FEEDTUBE PRN PRN Hypoglycemia Sodium Bicarbonate 325 mg 04/22/21 10:51 Sodium Bicarbonate 325 Mg Tab FEEDTUBE PRN PRN For Clogged Feeding Tube Sodium Chloride 10 ml 04/21/21 22:00 04/23/21 10:42 Sodium Chloride 0.9% 10 Ml Flush Syringe IV 10 ml BID MINOR Administration Sodium Chloride 10 ml 04/21/21 21:11 Sodium Chloride 0.9% 10 Ml Flush Syringe IV PRN PRN LINE FLUSH Nutrition/Malnutrition Assess - Dietary Evaluation Nutrition/Malnutrition Findings: Nutrition Notes Start: 04/22/21 10:45 Freq: Status: Active Protocol: Document 04/23/21 10:47 MAYRA (Rec: 04/23/21 10:48 MAYRA [id number]) Nutrition Notes 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 Pt being followed by RD. Nutrition Intervention Follow-Up By: 04/24/21 Additional Comments F/U: new TF, vent status
[2021-04-23] MEDS: SENNOSIDES/DOCUSATE SODIUM 8.6/50 MG TAB FEEDTUBE SCH ×2 (10:42→21:34)
[2021-04-23] MEDS: FAMOTIDINE 20 MG/2 ML INJ IV SCH ×2 (10:42→21:34)
[2021-04-23 10:54] LABS: BUN/Creatinine Ratio TNR; Blood Urea Nitrogen TNR mg/dL (7-17)
[2021-04-23 10:55] LABS: Alanine Aminotransferase TNR units/L (7-56); Albumin TNR g/dL (3.9-5); Calcium TNR mg/dL (8.4-10.2)
[2021-04-23 10:56] LABS: Hemolysis Index TNR
[2021-04-23] MEDS ORDERED: FREE WATER PO SCH (11:00)
[2021-04-23 11:01] LABS: Hematocrit TNR % (30.3-42.9); Hemoglobin TNR gm/dl (10.1-14.3); Mean Corpuscular HGB Conc TNR % (30-34); Mean Corpuscular Volume TNR fl (79-97); Platelet Count TNR K/mm3 (140-440); Red Blood Count TNR M/mm3 (3.65-5.03); Red Cell Distribution Width TNR % (13.2-15.2)
--- NOTE | 2021-04-23 11:22 | Progress Note ---
Assessment and Plan - Patient Problems (1) LIZBETH (acute kidney injury) Current Visit: Yes Status: Acute Plan to address problem: Prerenal azotemia secondary to volume depletion secondary to poor oral intake versus acute tubular necrosis secondary to rhabdomyolysis. Kidney function is improving. Follow-up electrolytes and renal function. (2) Hyperkalemia Current Visit: Yes Status: Acute Plan to address problem: Potassium is normal. Follow-up potassium (3) Elevated liver function tests Current Visit: Yes Status: Acute Plan to address problem: Related to rhabdomyolysis. Follow-up liver function tests (4) Proteinuria Current Visit: Yes Status: Acute Plan to address problem: Suspect baseline chronic kidney disease. Quantify proteinuria follow-up (5) New onset seizure Current Visit: Yes Status: Acute Plan to address problem: Continue Keppra. Management by neurologist. (6) Rhabdomyolysis Current Visit: Yes Status: Acute Plan to address problem: CPK is improving. Continue volume repletion. 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 I reviewed multidisciplinary notes and discussed with staff and physicians as needed. Objective - Exam Narrative Exam: Patient was not examined at the bedside today due to personal protective equipment preservation during the ID pandemic - Vital Signs Vital signs: Vital Signs - 12hr 04/22/21 04/22/21 04/22/21 23:30 23:41 23:51 Temperature Pulse Rate 100 H 98 H 99 H Respiratory 20 22 21 Rate Blood Pressure 113/68 113/68 107/67 O2 Sat by Pulse 89 92 90 Oximetry 04/23/21 04/23/21 04/23/21 00:00 00:11 00:21 Temperature 97.8 F Pulse Rate 99 H 100 H 99 H Respiratory 21 23 23 Rate Blood Pressure 106/72 106/72 113/72 O2 Sat by Pulse 90 90 91 Oximetry 04/23/21 04/23/21 04/23/21 00:30 00:41 00:51 Temperature Pulse Rate 101 H 100 H 100 H Respiratory 23 23 24 Rate Blood Pressure 108/75 108/75 117/76 O2 Sat by Pulse 91 90 93 Oximetry 04/23/21 04/23/21 04/23/21 01:00 01:11 01:21 Temperature Pulse Rate 100 H 100 H 101 H Respiratory 24 23 24 Rate Blood Pressure 112/79 112/79 121/77 O2 Sat by Pulse 91 92 93 Oximetry 04/23/21 04/23/21 04/23/21 01:30 01:41 01:51 Temperature Pulse Rate 99 H 100 H 100 H Respiratory 25 H 26 H 24 Rate Blood Pressure 111/74 111/74 121/77 O2 Sat by Pulse 97 93 93 Oximetry 04/23/21 04/23/21 04/23/21 02:00 02:11 02:21 Temperature Pulse Rate 100 H 103 H 101 H Respiratory 25 H 24 24 Rate Blood Pressure 121/81 121/81 112/73 O2 Sat by Pulse 94 95 93 Oximetry 04/23/21 04/23/21 04/23/21 02:30 02:41 02:51 Temperature Pulse Rate 102 H 101 H 103 H Respiratory 24 26 H 25 H Rate Blood Pressure 110/76 110/76 119/78 O2 Sat by Pulse 92 91 93 Oximetry 04/23/21 04/23/21 04/23/21 03:00 03:11 03:21 Temperature Pulse Rate 101 H 99 H 102 H Respiratory 24 24 28 H Rate Blood Pressure 120/73 120/73 109/76 O2 Sat by Pulse 94 93 94 Oximetry 04/23/21 04/23/21 04/23/21 03:23 03:31 03:41 Temperature 98.4 F Pulse Rate 102 H 100 H Respiratory 28 H 25 H Rate Blood Pressure 124/75 124/75 O2 Sat by Pulse 93 96 Oximetry 04/23/21 04/23/21 04/23/21 03:51 04:00 04:11 Temperature Pulse Rate 101 H 100 H 101 H Respiratory 26 H 26 H 26 H Rate Blood Pressure 134/80 107/74 107/74 O2 Sat by Pulse 97 94 96 Oximetry 04/23/21 04/23/21 04/23/21 04:21 04:30 04:36 Temperature Pulse Rate 102 H 101 H 102 H Respiratory 25 H 25 H Rate Blood Pressure 134/80 116/78 116/78 O2 Sat by Pulse 95 97 95 Oximetry 04/23/21 04/23/21 04/23/21 04:41 04:51 05:00 Temperature Pulse Rate 102 H 103 H 102 H Respiratory 25 H 19 20 Rate Blood Pressure 116/78 110/75 110/75 O2 Sat by Pulse 95 86 93 Oximetry 04/23/21 04/23/21 04/23/21 05:11 05:21 05:30 Temperature Pulse Rate 102 H 99 H 98 H Respiratory 20 19 22 Rate Blood Pressure 94/60 100/63 108/72 O2 Sat by Pulse 93 93 95 Oximetry 04/23/21 04/23/21 04/23/21 05:41 05:51 06:00 Temperature Pulse Rate 96 H 96 H 96 H Respiratory 22 22 21 Rate Blood Pressure 108/72 107/70 106/71 O2 Sat by Pulse 94 95 94 Oximetry 04/23/21 04/23/21 04/23/21 06:11 06:21 06:30 Temperature Pulse Rate 91 H 94 H 95 H Respiratory 20 20 20 Rate Blood Pressure 106/71 114/71 102/71 O2 Sat by Pulse 92 94 92 Oximetry 04/23/21 04/23/21 04/23/21 06:41 06:51 07:00 Temperature Pulse Rate 95 H 97 H 96 H Respiratory 22 20 20 Rate Blood Pressure 102/71 96/64 89/61 O2 Sat by Pulse 93 92 91 Oximetry 04/23/21 04/23/21 04/23/21 07:11 07:21 07:30 Temperature Pulse Rate 95 H 97 H 95 H Respiratory 20 19 20 Rate Blood Pressure 91/53 97/59 89/58 O2 Sat by Pulse 92 91 93 Oximetry 04/23/21 04/23/21 04/23/21 07:32 07:41 07:51 Temperature 98.1 F Pulse Rate 94 H 94 H Respiratory 20 20 Rate Blood Pressure 89/58 86/59 O2 Sat by Pulse 91 92 Oximetry 04/23/21 04/23/21 04/23/21 08:00 08:11 08:21 Temperature Pulse Rate 94 H 95 H 93 H Respiratory 20 27 H 21 Rate Blood Pressure 86/60 86/60 106/68 O2 Sat by Pulse 92 98 100 Oximetry 04/23/21 04/23/21 08:31 08:50 Temperature Pulse Rate 87 87 Respiratory 20 Rate Blood Pressure 103/68 103/68 O2 Sat by Pulse 95 95 Oximetry - Lab 04/23/21 14:21 04/23/21 14:21 Most recent lab results ABG pH 7.414 (7.320-7.450) 04/23/21 04:42 ABG pCO2 46.0 mm Hg 04/22/21 17:30 ABG pO2 99.6 mm Hg (80.0-90.0) H 04/22/21 17:30 ABG HCO3 24.4 mmol/L (20.0-26.0) 04/22/21 17:30 ABG O2 Saturation 84.0 (0-100) 04/23/21 04:42 Calcium TNR 04/23/21 09:53 Magnesium TNR 04/23/21 09:53 Urine Creatinine 138.9 mg/dL (0.1-20.0) H 04/22/21 13:03 Urine Total Protein 86 mg/dL (5-11.8) H 04/22/21 13:03 Medications & Allergies - Medications Allergies/Adverse Reactions: Allergies No Known Allergies Allergy (Unverified 03/04/19 19:33) Home Medications: Home Medications Medication Instructions Recorded Confirmed Last Taken Type Aspirin 325 mg PO QDAY #30 tablet 03/10/19 Unknown Rx Lipitor 40 mg PO QHS #30 03/10/19 Unknown Rx amLODIPine 5 mg PO QDAY #30 tablet 03/10/19 Unknown Rx Active Medications: Generic Name Dose Route Start Last Admin Trade Name Freq PRN Reason Stop Dose Admin Acetaminophen 650 mg 04/21/21 21:11 Acetaminophen 325 Mg Tab PO Q4H PRN Pain MILD(1-3)/Fever >100.5/DICKINSON Lipase/Protease/Amylase 1 each 04/22/21 10:51 Lipase 10,500/Protease 25,000/Amylase 43,750 (Units) Dr Ryan FEEDTUBE PRN PRN For Clogged Feeding Tube Famotidine 20 mg 04/21/21 22:00 04/23/21 10:42 Famotidine 20 Mg/2 Ml Inj IV 20 mg BID MINOR Administration Fentanyl 50 mcg 04/21/21 15:46 Fentanyl 100 Mcg/2 Ml Inj IV Q10MIN PRN ANALGESIA Heparin Sodium (Porcine) 2,800 unit 04/22/21 00:05 Heparin 10,000 Units/10 Ml Vial 40 unit/kg (2800 unit) IV Q6H PRN Anti-Xa Assay < 0.1 units/ml Hydromorphone HCl 0.5 mg 04/21/21 21:26 Hydromorphone 1 Mg/1 Ml Inj IV Q3H PRN Pain , Severe (7-10) Hydrophilic Ointment 1 applic 04/21/21 15:46 Lip Therapy Vaseline TP Q2HR PRN Dry Lips Fentanyl Citrate 2,000 mcg in 100 mls @ 3.515 mls/hr 04/21/21 16:00 04/23/21 07:58 Fentanyl Drip Premix IV 1.5 mcg/kg/hr TITR MINOR 5.273 mls/hr Titration Protocol 1 MCG/KG/HR Levetiracetam 750 mg/ Dextrose 107.5 mls @ 400 mls/hr 04/22/21 04:00 04/23/21 04:45 IV Infused Q12H MINOR Infusion Heparin Sodium/Sodium Chloride 25,000 unit in 500 mls @ 23 mls/hr 04/23/21 08:00 Heparin/ 0.45% Nacl-25,000 Unit/500 Ml IV TITR MINOR Protocol 1,150 UNITS/HR Morphine Sulfate 2 mg 04/21/21 21:26 Morphine 2 Mg/1 Ml Inj IV Q4H PRN Pain, Moderate (4-6) Multi-Ingred Cream/Lotion/Oil/Oint 1 applic 04/21/21 15:46 Mineral Oil/Petrolatum, White Ophth Oint 3.5 Gm OU Q4HR PRN Dry Eye(s) Ondansetron HCl 4 mg 04/21/21 21:11 Ondansetron 4 Mg/2 Ml Inj IV Q8H PRN Nausea And Vomiting Senna/Docusate Sodium 1 tab 04/21/21 22:00 04/23/21 10:42 Sennosides/Docusate Sodium 8.6/50 Mg Tab FEEDTUBE 1 tab BID MINRO Administration Simple Syrup 15 ml 04/22/21 10:51 Simple Syrup 15 Ml FEEDTUBE PRN PRN Hypoglycemia Simple Syrup 30 ml 04/22/21 10:51 Simple Syrup 15 Ml FEEDTUBE PRN PRN Hypoglycemia Sodium Bicarbonate 325 mg 04/22/21 10:51 Sodium Bicarbonate 325 Mg Tab FEEDTUBE PRN PRN For Clogged Feeding Tube Sodium Chloride 10 ml 04/21/21 22:00 04/23/21 10:42 Sodium Chloride 0.9% 10 Ml Flush Syringe IV 10 ml BID MINOR Administration Sodium Chloride 10 ml 04/21/21 21:11 Sodium Chloride 0.9% 10 Ml Flush Syringe IV PRN PRN LINE FLUSH
[2021-04-23] MEDS: fentaNYL 100 MCG/2 ML INJ IV PRN (12:20)
[2021-04-23] MEDS ORDERED: SODIUM CHLORIDE 0.9% 1000 ML 1,000 ML ONE (13:34)
--- NOTE | 2021-04-23 14:19 | Magnetic Resonance Report ---
NONENHANCED MR SCAN OF THE BRAIN: INDICATION / CLINICAL INFORMATION: Rule out acute CVA. TECHNIQUE: Multiplanar, multisequence MR images of the brain obtained. COMPARISON: CT scan of the head from 04/21/2021 FINDINGS: BRAIN / INTRACRANIAL CONTENTS: No acute ischemia, acute hemorrhage, mass effect, midline shift, or hy drocephalus. Encephalomalacia in the right temporal lobe extending towards the right frontal parieta l convexity; compensatory enlargement of atrium of the right lateral ventricle; white matter hyperint ensity along the right external capsule, anterior and the posterior limbs of right internal capsule a nd anterior limb of left external capsule probably due to chronic small vessel disease; scattered whi te matter lesions ([place] 1) due to chronic small vessel disease CRANIOCERVICAL JUNCTION: No significant abnormality. VASCULAR FLOW-VOIDS: No significant abnormality. ORBITS: No significant abnormality of visualized orbits. SINUSES / MASTOIDS: No significant abnormality of visualized sinuses and mastoid air cells. ADDITIONAL FINDINGS: None. IMPRESSION: 1. No acute/subacute ischemic changes Encephalomalacia in the right cerebral hemisphere Signer Name: Diaz Ibarra MD Signed: 04/23/2021 2:14 PM Workstation Name: [id number]
--- NOTE | 2021-04-23 14:22 | Procedure Note ---
Date of procedure: 04/23/21 (arterial line insertion ) Pre-op diagnosis: resp failure Post-op diagnosis: same Procedure: left radial arterial line inserted without difficulty site clean and prepped with CHG 1 ml 2% lido local anesthesia ultrasound guided to identify artery, angiocath advanced without difficulty line transduced- waveform noted AM labs sent no EBL pt tolerated procedure well Estimated blood loss: none Pathology: none Specimen disposition: to lab Condition: stable
--- NOTE | 2021-04-23 14:50 | Vascular Lab Report ---
BILATERAL LOWER EXTREMITY VENOUS DOPPLER ULTRASOUND HISTORY: Shortness of breath, acute PE. COMPARISON: None. TECHNIQUE: Grayscale, color and spectral Doppler imaging of the venous system of the bilateral lower extremities was performed. FINDINGS: RIGHT LOWER EXTREMITY: Greater saphenous vein:Normal venous flow, compressibility and augmentation. Sapheno-femoral Junction: Normal venous flow, compressibility and augmentation. Common Femoral Vein: Normal venous flow, compressibility and augmentation. Femoral Vein: Normal venous flow, compressibility and augmentation. Profunda Femoral Vein: Normal venous flow, compressibility and augmentation. Popliteal Vein: Normal venous flow, compressibility and augmentation. Posterior tibial vein: Normal venous flow, compressibility and augmentation. Additional Findings: None. LEFT LOWER EXTREMITY: Greater saphenous vein:Normal venous flow, compressibility and augmentation. Sapheno-femoral Junction: Normal venous flow, compressibility and augmentation. Common Femoral Vein: Normal venous flow, compressibility and augmentation. Femoral Vein: Normal venous flow, compressibility and augmentation. Profunda Femoral Vein: Normal venous flow, compressibility and augmentation. Popliteal Vein: Normal venous flow, compressibility and augmentation. Posterior tibial vein: Normal venous flow, compressibility and augmentation. Additional Findings: None. IMPRESSION: No sonographic evidence of deep venous thrombosis within the bilateral lower extremities. Signer Name: Cm Dolan MD Signed: 04/23/2021 2:46 PM Workstation Name: [id number]
[2021-04-23] MEDS: FREE WATER PO SCH ×3 (15:00→23:04)
[2021-04-23 15:24] LABS: Alanine Aminotransferase 31 units/L (7-56); Albumin 2.3 g/dL (3.9-5); BUN/Creatinine Ratio 23; Blood Urea Nitrogen 18 mg/dL (7-17); Calcium 8.2 mg/dL (8.4-10.2); Hemolysis Index 95
[2021-04-23 15:25] LABS: Hematocrit 40.8 % (30.3-42.9); Mean Corpuscular HGB Conc 33 % (30-34); Mean Corpuscular Volume 93 fl (79-97); Platelet Count 230 K/mm3 (140-440); Red Blood Count 4.24 M/mm3 (3.65-5.03); Red Cell Distribution Width 16.3 % (13.2-15.2)
[2021-04-23] MEDS: fentaNYL DRIP Premix 2,000 MCG/100 ML BAG IV SCH (16:35)
[2021-04-24] MEDS: FREE WATER PO SCH ×5 (03:24→18:51)
--- NOTE | 2021-04-24 04:24 | XRay Report ---
CHEST 1 VIEW 04/24/2021 3:16 AM INDICATION / CLINICAL INFORMATION: sob. COMPARISON: 04/23/2021 FINDINGS: SUPPORT DEVICES: Unchanged. HEART / MEDIASTINUM: Unchanged LUNGS / PLEURA: There is worsening bilateral interstitial and airspace disease. No pneumothorax. ADDITIONAL FINDINGS: No significant additional findings. IMPRESSION: 1. Interval worsening. Signer Name: Cesario Perez MD Signed: 04/24/2021 4:19 AM Workstation Name: [id number]
[2021-04-24] MEDS: levETIRAcetam 750 MG in DEXTROSE 5% IN WATER 100 ML IV SCH ×2 (04:25→16:02)
[2021-04-24] MEDS: fentaNYL DRIP Premix 2,000 MCG/100 ML BAG IV SCH ×2 (05:55→17:25)
[2021-04-24] MEDS: SENNOSIDES/DOCUSATE SODIUM 8.6/50 MG TAB FEEDTUBE SCH ×2 (09:40→21:20)
[2021-04-24] MEDS: FAMOTIDINE 20 MG TAB PO SCH ×2 (09:40→21:20)
[2021-04-24] MEDS: HEPARIN/ 0.45% NACL DRIP 25,000 UNIT/500 ML BAG IV SCH (11:02)
--- NOTE | 2021-04-24 11:24 | Progress Note ---
Assessment and Plan - Patient Problems (1) LIZBETH (acute kidney injury) Current Visit: Yes Status: Acute Plan to address problem: Prerenal azotemia secondary to volume depletion secondary to poor oral intake versus acute tubular necrosis secondary to rhabdomyolysis. Kidney function is improving. Labs pending this morning. Discussed with the nurse who is about to draw them. Follow-up electrolytes and renal function. (2) Hyperkalemia Current Visit: Yes Status: Acute Plan to address problem: Potassium is normal. Follow-up potassium (3) Elevated liver function tests Current Visit: Yes Status: Acute Plan to address problem: Related to rhabdomyolysis. Follow-up liver function tests (4) Proteinuria Current Visit: Yes Status: Acute Plan to address problem: Suspect baseline chronic kidney disease. Quantify proteinuria and follow-up (5) New onset seizure Current Visit: Yes Status: Acute Plan to address problem: Continue Keppra. Management by neurologist. (6) Rhabdomyolysis Current Visit: Yes Status: Acute Plan to address problem: CPK improved back to normal (7) Hypertension Current Visit: Yes Status: Chronic Qualifiers: Hypertension type: primary hypertension Qualified Code(s): I10 - Essential (primary) hypertension Plan to address problem: Follow-up blood pressure on current medication Subjective Date of service: 04/24/21 Principal diagnosis: Acute kidney injury, rhabdomyolysis Interval history: Patient seen lying in bed in the ICU. Intubated on ventilator. Not on Vasopressors Objective - Exam Narrative Exam: Middle-aged -[place] female lying in bed intubated on ventilator HEENT: NCAT, pink oral mucous membrane Neck: Supple, no venous distention CVS: S1S2 RRR with no murmur, rub or gallop Chest: Diminished breath sounds with faint rhonchi Abdomen: Protuberant, soft, nontender, no organomegaly, bowel sounds are present Extremities: No edema Neuro: Sedated, intubated on ventilator - Vital Signs Vital signs: Vital Signs - 12hr 04/23/21 04/23/21 04/23/21 23:31 23:41 23:51 Temperature Pulse Rate 101 H 102 H 102 H Pulse Rate [ From Monitor] Respiratory 20 20 20 Rate Blood Pressure 105/66 105/66 105/66 O2 Sat by Pulse 96 94 94 Oximetry 04/24/21 04/24/21 04/24/21 00:00 00:11 00:16 Temperature 98.2 F Pulse Rate 102 H 102 H 101 H Pulse Rate [ 102 H From Monitor] Respiratory 20 22 Rate Blood Pressure 106/64 106/64 106/64 O2 Sat by Pulse 96 95 Oximetry 04/24/21 04/24/21 04/24/21 00:21 00:31 00:41 Temperature Pulse Rate 99 H 99 H 101 H Pulse Rate [ From Monitor] Respiratory 22 21 20 Rate Blood Pressure 106/64 106/64 106/64 O2 Sat by Pulse 94 96 94 Oximetry 04/24/21 04/24/21 04/24/21 00:51 01:00 01:11 Temperature Pulse Rate 100 H 101 H 99 H Pulse Rate [ From Monitor] Respiratory 21 21 20 Rate Blood Pressure 106/64 108/67 108/67 O2 Sat by Pulse 94 96 95 Oximetry 04/24/21 04/24/21 04/24/21 01:21 01:31 01:41 Temperature Pulse Rate 101 H 101 H 102 H Pulse Rate [ From Monitor] Respiratory 23 20 21 Rate Blood Pressure 108/67 108/67 106/64 O2 Sat by Pulse 97 94 95 Oximetry 04/24/21 04/24/21 04/24/21 01:51 02:00 02:11 Temperature Pulse Rate 101 H 104 H 101 H Pulse Rate [ From Monitor] Respiratory 22 21 21 Rate Blood Pressure 106/64 102/64 102/64 O2 Sat by Pulse 95 98 95 Oximetry 04/24/21 04/24/21 04/24/21 02:21 02:31 02:41 Temperature Pulse Rate 106 H 102 H 102 H Pulse Rate [ From Monitor] Respiratory 27 H 25 H 25 H Rate Blood Pressure 102/64 102/64 102/64 O2 Sat by Pulse 94 100 97 Oximetry 04/24/21 04/24/21 04/24/21 02:51 03:00 03:11 Temperature Pulse Rate 102 H 103 H 103 H Pulse Rate [ From Monitor] Respiratory 23 22 23 Rate Blood Pressure 102/64 100/70 100/70 O2 Sat by Pulse 95 95 94 Oximetry 04/24/21 04/24/21 04/24/21 03:21 03:31 03:41 Temperature Pulse Rate 103 H 106 H 109 H Pulse Rate [ From Monitor] Respiratory 23 24 24 Rate Blood Pressure 100/70 100/70 100/70 O2 Sat by Pulse 93 94 93 Oximetry 04/24/21 04/24/21 04/24/21 03:51 04:00 04:01 Temperature 99.2 F Pulse Rate 114 H 109 H Pulse Rate [ 101 H From Monitor] Respiratory 27 H 28 H Rate Blood Pressure 100/70 120/69 O2 Sat by Pulse 92 Oximetry 04/24/21 04/24/21 04/24/21 04:03 04:11 04:21 Temperature Pulse Rate 107 H 110 H 107 H Pulse Rate [ From Monitor] Respiratory 33 H 27 H Rate Blood Pressure 120/69 120/69 120/69 O2 Sat by Pulse 93 87 89 Oximetry 04/24/21 04/24/21 04/24/21 04:31 04:41 04:50 Temperature Pulse Rate 106 H 108 H 117 H Pulse Rate [ From Monitor] Respiratory 27 H 26 H 26 H Rate Blood Pressure 120/69 120/69 120/69 O2 Sat by Pulse 93 90 92 Oximetry 04/24/21 04/24/21 04/24/21 05:00 05:11 05:21 Temperature Pulse Rate 116 H 114 H 117 H Pulse Rate [ From Monitor] Respiratory 25 H 23 22 Rate Blood Pressure 116/65 120/69 120/69 O2 Sat by Pulse 96 94 95 Oximetry 04/24/21 04/24/21 04/24/21 05:31 05:41 05:50 Temperature Pulse Rate 116 H 114 H 113 H Pulse Rate [ From Monitor] Respiratory 22 20 Rate Blood Pressure 120/69 116/65 116/65 O2 Sat by Pulse 94 93 92 Oximetry 04/24/21 04/24/21 04/24/21 06:00 06:11 06:21 Temperature Pulse Rate 113 H 114 H 113 H Pulse Rate [ From Monitor] Respiratory 22 Rate Blood Pressure 112/62 112/62 112/62 O2 Sat by Pulse 98 93 93 Oximetry 04/24/21 04/24/21 04/24/21 06:31 06:41 06:51 Temperature Pulse Rate 114 H 115 H 113 H Pulse Rate [ From Monitor] Respiratory 21 Rate Blood Pressure 112/62 112/62 112/62 O2 Sat by Pulse 94 94 94 Oximetry 04/24/21 04/24/21 04/24/21 07:00 07:11 07:14 Temperature Pulse Rate 111 H 113 H 114 H Pulse Rate [ From Monitor] Respiratory 22 22 Rate Blood Pressure 101/59 101/59 107/62 O2 Sat by Pulse 96 95 95 Oximetry 04/24/21 04/24/21 04/24/21 07:17 07:21 07:31 Temperature 98.7 F Pulse Rate 115 H 105 H Pulse Rate [ From Monitor] Respiratory 30 H 24 Rate Blood Pressure 101/59 101/59 O2 Sat by Pulse 93 100 Oximetry 04/24/21 04/24/21 04/24/21 07:41 07:51 08:00 Temperature Pulse Rate 109 H 109 H 111 H Pulse Rate [ 101 H From Monitor] Respiratory 24 23 24 Rate Blood Pressure 101/59 101/59 115/64 O2 Sat by Pulse 98 97 95 Oximetry 04/24/21 04/24/21 04/24/21 08:11 08:21 08:31 Temperature Pulse Rate 110 H 110 H 113 H Pulse Rate [ From Monitor] Respiratory 22 24 26 H Rate Blood Pressure 115/64 115/64 115/64 O2 Sat by Pulse 95 94 94 Oximetry 04/24/21 04/24/21 04/24/21 08:41 08:51 09:00 Temperature Pulse Rate 110 H 109 H 108 H Pulse Rate [ From Monitor] Respiratory 24 22 22 Rate Blood Pressure 115/64 115/64 107/62 O2 Sat by Pulse 95 95 94 Oximetry 04/24/21 04/24/21 04/24/21 09:11 09:21 09:31 Temperature Pulse Rate 108 H 110 H 110 H Pulse Rate [ From Monitor] Respiratory 21 22 22 Rate Blood Pressure 107/62 115/64 115/64 O2 Sat by Pulse 94 95 96 Oximetry 04/24/21 04/24/21 04/24/21 09:41 09:51 10:00 Temperature Pulse Rate 109 H 111 H 111 H Pulse Rate [ From Monitor] Respiratory 21 22 22 Rate Blood Pressure 115/64 115/64 107/68 O2 Sat by Pulse 95 96 96 Oximetry 04/24/21 04/24/21 04/24/21 10:11 10:21 11:11 Temperature Pulse Rate 109 H 110 H 112 H Pulse Rate [ From Monitor] Respiratory 24 24 Rate Blood Pressure 107/68 107/68 115/62 O2 Sat by Pulse 96 95 95 Oximetry - Lab 04/23/21 14:21 04/23/21 14:21 Most recent lab results ABG pH 7.408 (7.320-7.450) 04/24/21 04:00 ABG pCO2 46.0 mm Hg 04/22/21 17:30 ABG pO2 99.6 mm Hg (80.0-90.0) H 04/22/21 17:30 ABG HCO3 24.4 mmol/L (20.0-26.0) 04/22/21 17:30 ABG O2 Saturation 85.7 (0-100) 04/24/21 04:00 Calcium 8.2 mg/dL (8.4-10.2) L 04/23/21 14:21 Magnesium TNR 04/23/21 09:53 Urine Creatinine 138.9 mg/dL (0.1-20.0) H 04/22/21 13:03 Urine Total Protein 86 mg/dL (5-11.8) H 04/22/21 13:03 Medications & Allergies - Medications Allergies/Adverse Reactions: Allergies No Known Allergies Allergy (Unverified 03/04/19 19:33) Home Medications: Home Medications Medication Instructions Recorded Confirmed Last Taken Type Aspirin 325 mg PO QDAY #30 tablet 03/10/19 Unknown Rx Lipitor 40 mg PO QHS #30 03/10/19 Unknown Rx amLODIPine 5 mg PO QDAY #30 tablet 03/10/19 Unknown Rx Active Medications: Generic Name Dose Route Start Last Admin Trade Name Freq PRN Reason Stop Dose Admin Acetaminophen 650 mg 04/21/21 21:11 Acetaminophen 325 Mg Tab PO Q4H PRN Pain MILD(1-3)/Fever >100.5/DICKINSON Lipase/Protease/Amylase 1 each 04/22/21 10:51 Lipase 10,500/Protease 25,000/Amylase 43,750 (Units) Dr Ryan FEEDTUBE PRN PRN For Clogged Feeding Tube Famotidine 20 mg 04/24/21 10:00 04/24/21 09:40 Famotidine 20 Mg Tab PO 20 mg BID MINOR Administration Fentanyl 50 mcg 04/21/21 15:46 04/23/21 12:20 Fentanyl 100 Mcg/2 Ml Inj IV 50 mcg Q10MIN PRN Administration ANALGESIA Heparin Sodium (Porcine) 2,800 unit 04/22/21 00:05 04/23/21 11:20 Heparin 10,000 Units/10 Ml Vial 40 unit/kg (2800 unit) 2,800 unit IV Administration Q6H PRN Anti-Xa Assay < 0.1 units/ml Hydrophilic Ointment 1 applic 04/21/21 15:46 Lip Therapy Vaseline TP Q2HR PRN Dry Lips Fentanyl Citrate 2,000 mcg in 100 mls @ 3.515 mls/hr 04/21/21 16:00 04/24/21 05:55 Fentanyl Drip Premix IV 2 mcg/kg/hr TITR MINOR 7.031 mls/hr Administration Protocol 1 MCG/KG/HR Levetiracetam 750 mg/ Dextrose 107.5 mls @ 400 mls/hr 04/22/21 04:00 04/24/21 04:45 IV 04/24/21 23:54 Infused Q12H MINOR Infusion Heparin Sodium/Sodium Chloride 25,000 unit in 500 mls @ 23 mls/hr 04/23/21 08:00 04/24/21 11:02 Heparin/ 0.45% Nacl-25,000 Unit/500 Ml IV 850 units/hr TITR MINOR 17 mls/hr Administration Protocol 1,150 UNITS/HR Levetiracetam 750 mg 04/25/21 10:00 Levetiracetam 500 Mg/5 Ml Oral Liqd PO BID MINOR Multi-Ingred Cream/Lotion/Oil/Oint 1 applic 04/21/21 15:46 Mineral Oil/Petrolatum, White Ophth Oint 3.5 Gm OU Q4HR PRN Dry Eye(s) Senna/Docusate Sodium 1 tab 04/21/21 22:00 04/24/21 09:40 Sennosides/Docusate Sodium 8.6/50 Mg Tab FEEDTUBE 1 tab BID MINOR Administration Simple Syrup 15 ml 04/22/21 10:51 Simple Syrup 15 Ml FEEDTUBE PRN PRN Hypoglycemia Simple Syrup 30 ml 04/22/21 10:51 Simple Syrup 15 Ml FEEDTUBE PRN PRN Hypoglycemia Sodium Bicarbonate 325 mg 04/22/21 10:51 Sodium Bicarbonate 325 Mg Tab FEEDTUBE PRN PRN For Clogged Feeding Tube Sodium Chloride 10 ml 04/21/21 22:00 04/24/21 09:40 Sodium Chloride 0.9% 10 Ml Flush Syringe IV 10 ml BID MINOR Administration Sodium Chloride 10 ml 04/21/21 21:11 Sodium Chloride 0.9% 10 Ml Flush Syringe IV PRN PRN LINE FLUSH
[2021-04-24 11:51] LABS: Hematocrit 36.3 % (30.3-42.9); Hemoglobin 11.8 gm/dl (10.1-14.3); Mean Corpuscular HGB Conc 32 % (30-34); Mean Corpuscular Volume 95 fl (79-97); Platelet Count 238 K/mm3 (140-440); Red Blood Count 3.84 M/mm3 (3.65-5.03)
[2021-04-24 12:21] LABS: Alanine Aminotransferase 30 units/L (7-56); Albumin 2.4 g/dL (3.9-5); BUN/Creatinine Ratio 19; Blood Urea Nitrogen 15 mg/dL (7-17); Calcium 8.9 mg/dL (8.4-10.2); Hemolysis Index 39
[2021-04-24] MEDS: ENOXAPARIN 80 MG/0.8 ML INJ SUB-Q SCH (14:27)
[2021-04-24] MEDS: PHOS-NAK POWDER PACKET PO SCH ×2 (14:27→21:20)
--- NOTE | 2021-04-24 14:40 | Progress Note ---
Assessment and Plan 66 y/o female, intubated for airway protection, found to have severe ILD and no has refractory hypoxemia. 04/24/21: Will drop TV to 375 and Increase PEEP to 14. Will repeat ABG in one hour. If no improvements, may need to consider IV steroids for 48-72 hours. Exact etiology of chronic lung disease is not known. Would prefer not to give sedation vacation given high levels of oxygen required as agitation could make things worse. Right now, unable to determine current neuro state. Lungs are very very sick and even though this is a chronic issue, now with her drive diminished from the ventilator, most likely will be a difficult wean. Will discuss with family soon what the next steps could potentially be but would need to assess mental state first. Guarded prognosis. 1. Increase PEEP and repeat ABG 2. May need to consider IV steroids 3. Follow up neuro recs 4. Guarded prognosis. cCT 31 minutes. Subjective Date of service: 04/24/21 Principal diagnosis: Acute kidney injury, rhabdomyolysis Interval history: Worsening hypoxemia despite increases in PEEP. Remains sedated. Renal function is normal. Objective Vital Signs - 12hr 04/24/21 04/24/21 04/24/21 02:41 02:51 03:00 Temperature Pulse Rate 102 H 102 H 103 H Pulse Rate [ From Monitor] Respiratory 25 H 23 22 Rate Blood Pressure 102/64 102/64 100/70 O2 Sat by Pulse 97 95 95 Oximetry 04/24/21 04/24/21 04/24/21 03:11 03:21 03:31 Temperature Pulse Rate 103 H 103 H 106 H Pulse Rate [ From Monitor] Respiratory 23 23 24 Rate Blood Pressure 100/70 100/70 100/70 O2 Sat by Pulse 94 93 94 Oximetry 04/24/21 04/24/21 04/24/21 03:41 03:51 04:00 Temperature 99.2 F Pulse Rate 109 H 114 H Pulse Rate [ 101 H From Monitor] Respiratory 24 27 H Rate Blood Pressure 100/70 100/70 O2 Sat by Pulse 93 Oximetry 04/24/21 04/24/21 04/24/21 04:01 04:03 04:11 Temperature Pulse Rate 109 H 107 H 110 H Pulse Rate [ From Monitor] Respiratory 28 H 33 H Rate Blood Pressure 120/69 120/69 120/69 O2 Sat by Pulse 92 93 87 Oximetry 0704/24/21 04/24/21 04:21 04:31 04:41 Temperature Pulse Rate 107 H 106 H 108 H Pulse Rate [ From Monitor] Respiratory 27 H 27 H 26 H Rate Blood Pressure 120/69 120/69 120/69 O2 Sat by Pulse 89 93 90 Oximetry 04/24/21 04/24/21 04/24/21 04:50 05:00 05:11 Temperature Pulse Rate 117 H 116 H 114 H Pulse Rate [ From Monitor] Respiratory 26 H 25 H 23 Rate Blood Pressure 120/69 116/65 120/69 O2 Sat by Pulse 92 96 94 Oximetry 04/24/21 04/24/21 04/24/21 05:21 05:31 05:41 Temperature Pulse Rate 117 H 116 H 114 H Pulse Rate [ From Monitor] Respiratory 22 22 Rate Blood Pressure 120/69 120/69 116/65 O2 Sat by Pulse 95 94 93 Oximetry 04/24/21 04/24/21 04/24/21 05:50 06:00 06:11 Temperature Pulse Rate 113 H 113 H 114 H Pulse Rate [ From Monitor] Respiratory 20 21 19 Rate Blood Pressure 116/65 112/62 112/62 O2 Sat by Pulse 92 98 93 Oximetry 04/24/21 04/24/21 04/24/21 06:21 06:31 06:41 Temperature Pulse Rate 113 H 114 H 115 H Pulse Rate [ From Monitor] Respiratory 22 21 22 Rate Blood Pressure 112/62 112/62 112/62 O2 Sat by Pulse 93 94 94 Oximetry 04/24/21 04/24/21 04/24/21 06:51 07:00 07:11 Temperature Pulse Rate 113 H 111 H 113 H Pulse Rate [ From Monitor] Respiratory 22 Rate Blood Pressure 112/62 101/59 101/59 O2 Sat by Pulse 94 96 95 Oximetry 04/24/21 04/24/21 04/24/21 07:14 07:17 07:21 Temperature 98.7 F Pulse Rate 114 H 115 H Pulse Rate [ From Monitor] Respiratory 30 H Rate Blood Pressure 107/62 101/59 O2 Sat by Pulse 95 93 Oximetry 04/24/21 04/24/21 04/24/21 07:31 07:41 07:51 Temperature Pulse Rate 105 H 109 H 109 H Pulse Rate [ From Monitor] Respiratory 24 24 23 Rate Blood Pressure 101/59 101/59 101/59 O2 Sat by Pulse 100 98 97 Oximetry 04/24/21 04/24/21 04/24/21 08:00 08:11 08:21 Temperature Pulse Rate 111 H 110 H 110 H Pulse Rate [ 101 H From Monitor] Respiratory 24 22 24 Rate Blood Pressure 115/64 115/64 115/64 O2 Sat by Pulse 95 95 94 Oximetry 04/24/21 04/24/21 04/24/21 08:31 08:41 08:51 Temperature Pulse Rate 113 H 110 H 109 H Pulse Rate [ From Monitor] Respiratory 26 H 24 22 Rate Blood Pressure 115/64 115/64 115/64 O2 Sat by Pulse 94 95 95 Oximetry 04/24/21 04/24/21 04/24/21 09:00 09:11 09:21 Temperature Pulse Rate 108 H 108 H 110 H Pulse Rate [ From Monitor] Respiratory 22 21 22 Rate Blood Pressure 107/62 107/62 115/64 O2 Sat by Pulse 94 94 95 Oximetry 04/24/21 04/24/21 04/24/21 09:31 09:41 09:51 Temperature Pulse Rate 110 H 109 H 111 H Pulse Rate [ From Monitor] Respiratory 22 Rate Blood Pressure 115/64 115/64 115/64 O2 Sat by Pulse 96 95 96 Oximetry 04/24/21 04/24/21 04/24/21 10:00 10:11 10:21 Temperature Pulse Rate 111 H 109 H 110 H Pulse Rate [ From Monitor] Respiratory 22 24 24 Rate Blood Pressure 107/68 107/68 107/68 O2 Sat by Pulse 96 96 95 Oximetry 04/24/21 04/24/21 04/24/21 10:31 10:41 10:51 Temperature Pulse Rate 112 H 112 H 111 H Pulse Rate [ From Monitor] Respiratory 24 26 H 27 H Rate Blood Pressure 107/68 107/68 107/68 O2 Sat by Pulse 95 95 95 Oximetry 04/24/21 04/24/21 04/24/21 11:00 11:11 11:21 Temperature Pulse Rate 114 H 112 H 111 H Pulse Rate [ From Monitor] Respiratory 19 27 H 25 H Rate Blood Pressure 129/66 129/66 129/66 O2 Sat by Pulse 93 96 95 Oximetry 04/24/21 04/24/21 04/24/21 11:31 11:41 11:51 Temperature Pulse Rate 111 H 110 H 113 H Pulse Rate [ From Monitor] Respiratory 26 H 25 H 26 H Rate Blood Pressure 129/66 129/66 129/66 O2 Sat by Pulse 94 96 95 Oximetry 04/24/21 04/24/21 04/24/21 12:00 12:11 12:21 Temperature 99.8 F H Pulse Rate 110 H 109 H 110 H Pulse Rate [ 101 H From Monitor] Respiratory 27 H 24 26 H Rate Blood Pressure 111/63 111/63 111/63 O2 Sat by Pulse 94 95 95 Oximetry 04/24/21 04/24/21 04/24/21 12:31 12:41 12:51 Temperature Pulse Rate 110 H 108 H 111 H Pulse Rate [ From Monitor] Respiratory 25 H 26 H 28 H Rate Blood Pressure 111/63 111/63 111/63 O2 Sat by Pulse 94 95 95 Oximetry 04/24/21 04/24/21 04/24/21 13:00 13:11 13:21 Temperature Pulse Rate 109 H 109 H 110 H Pulse Rate [ From Monitor] Respiratory 27 H 26 H 25 H Rate Blood Pressure 98/65 98/65 98/65 O2 Sat by Pulse 91 94 95 Oximetry 04/24/21 04/24/21 04/24/21 13:31 13:41 13:51 Temperature Pulse Rate 109 H 107 H 117 H Pulse Rate [ From Monitor] Respiratory 25 H 26 H 29 H Rate Blood Pressure 98/65 98/65 98/65 O2 Sat by Pulse 96 97 93 Oximetry 04/24/21 14:00 Temperature Pulse Rate 109 H Pulse Rate [ From Monitor] Respiratory 26 H Rate Blood Pressure 108/63 O2 Sat by Pulse 95 Oximetry CBC and BMP: 04/24/21 10:00 04/24/21 10:00 ABG, PT/INR, D-dimer: ABG ABG pH 7.363 (7.320-7.450) 04/24/21 11:14 POC ABG pCO2 40.4 mmHg (32.0-48.0) 04/24/21 11:14 ABG pCO2 46.0 mm Hg 04/22/21 17:30 POC ABG pO2 58.2 mmHg (83-108) L 04/24/21 11:14 ABG pO2 99.6 mm Hg (80.0-90.0) H 04/22/21 17:30 POC ABG HCO3 22.5 04/24/21 11:14 ABG O2 Saturation 88.8 (0-100) 04/24/21 11:14 PT/INR, D-dimer PT 13.2 Sec. (12.2-14.9) 04/22/21 00:32 INR 0.95 (0.87-1.13) 04/22/21 00:32 D-Dimer 1522.26 ng/mlDDU (0-234) H 04/21/21 16:30 Abnormal lab findings: Abnormal Labs 04/21/21 04/21/21 04/21/21 14:40 15:42 16:30 RBC Hgb Hct RDW Lymph % (Auto) [place] % (Auto) Lymph # (Auto) Seg Neutrophils % Seg Neuts % (Manual) Lymphocytes % (Manual) Monocytes % (Manual) Lymphocytes # (Manual) D-Dimer 1522.26 H Heparin Anti-Xa Level ABG pH POC ABG pO2 45.5 L 69.9 L ABG pO2 ABG Oxyhemoglobin 78.6 L 90.2 L ABG Potassium ABG Chloride 111.0 H ABG Glucose 156 H 148 H Carboxyhemoglobin Potassium Chloride Carbon Dioxide BUN Creatinine Glucose POC Glucose Calcium Phosphorus Magnesium AST ALT Total Creatine Kinase CK-MB (CK-2) Troponin T Total Protein Albumin Triglycerides Cholesterol LDL Cholesterol Direct HDL Cholesterol Arterial Blood Glucose 156 H 148 H Arterial Blood Ionized Calcium 4.5 L Urine Creatinine Urine Total Protein 04/21/21 04/21/21 04/22/21 16:32 16:32 00:32 RBC 5.22 H Hgb 16.2 H 14.8 H Hct 48.6 H 44.4 H RDW 15.8 H Lymph % (Auto) [place] % (Auto) Lymph # (Auto) Seg Neutrophils % Seg Neuts % (Manual) 79.0 H Lymphocytes % (Manual) 13.0 L Monocytes % (Manual) 8.0 H Lymphocytes # (Manual) 1.1 L D-Dimer Heparin Anti-Xa Level ABG pH POC ABG pO2 ABG pO2 ABG Oxyhemoglobin ABG Potassium ABG Chloride ABG Glucose Carboxyhemoglobin Potassium Chloride Carbon Dioxide 21 L BUN 24 H Creatinine 1.3 H Glucose 130 H POC Glucose Calcium Phosphorus Magnesium AST 129 H ALT 61 H Total Creatine Kinase 3055 H CK-MB (CK-2) 22.4 H Troponin T 0.055 H Total Protein Albumin 3.6 L Triglycerides 235 H Cholesterol 220 H LDL Cholesterol Direct 142 H HDL Cholesterol 36 L Arterial Blood Glucose Arterial Blood Ionized Calcium Urine Creatinine Urine Total Protein 04/22/21 04/22/21 04/22/21 03:27 05:29 05:29 RBC Hgb 15.4 H Hct 45.8 H RDW 16.0 H Lymph % (Auto) 12.0 L [place] % (Auto) 8.0 H Lymph # (Auto) 1.1 L Seg Neutrophils % 76.3 H Seg Neuts % (Manual) Lymphocytes % (Manual) Monocytes % (Manual) Lymphocytes # (Manual) D-Dimer Heparin Anti-Xa Level ABG pH POC ABG pO2 ABG pO2 ABG Oxyhemoglobin ABG Potassium 4.7 H ABG Chloride 109.0 H ABG Glucose 155 H Carboxyhemoglobin 0.4 L Potassium 6.3 H* D Chloride Carbon Dioxide BUN 26 H Creatinine Glucose 134 H POC Glucose Calcium Phosphorus Magnesium AST 123 H ALT Total Creatine Kinase CK-MB (CK-2) Troponin T Total Protein Albumin 3.6 L Triglycerides Cholesterol LDL Cholesterol Direct HDL Cholesterol Arterial Blood Glucose 155 H Arterial Blood Ionized Calcium Urine Creatinine Urine Total Protein 04/22/21 04/22/21 04/22/21 13:03 13:25 17:30 RBC Hgb Hct RDW Lymph % (Auto) [place] % (Auto) Lymph # (Auto) Seg Neutrophils % Seg Neuts % (Manual) Lymphocytes % (Manual) Monocytes % (Manual) Lymphocytes # (Manual) D-Dimer Heparin Anti-Xa Level ABG pH 7.343 L POC ABG pO2 ABG pO2 99.6 H ABG Oxyhemoglobin ABG Potassium ABG Chloride ABG Glucose Carboxyhemoglobin Potassium Chloride Carbon Dioxide BUN Creatinine Glucose POC Glucose Calcium Phosphorus Magnesium AST ALT Total Creatine Kinase 2322 H CK-MB (CK-2) Troponin T Total Protein Albumin Triglycerides Cholesterol LDL Cholesterol Direct HDL Cholesterol Arterial Blood Glucose Arterial Blood Ionized Calcium Urine Creatinine 138.9 H Urine Total Protein 86 H 04/22/21 04/23/21 04/23/21 20:00 04:42 09:53 RBC Hgb Hct RDW Lymph % (Auto) [place] % (Auto) Lymph # (Auto) Seg Neutrophils % Seg Neuts % (Manual) Lymphocytes % (Manual) Monocytes % (Manual) Lymphocytes # (Manual) D-Dimer Heparin Anti-Xa Level 2.00 H < 0.10 L ABG pH POC ABG pO2 ABG pO2 ABG Oxyhemoglobin 83.2 L ABG Potassium ABG Chloride 113.0 H ABG Glucose 107 H Carboxyhemoglobin Potassium Chloride Carbon Dioxide BUN Creatinine Glucose POC Glucose Calcium Phosphorus Magnesium AST ALT Total Creatine Kinase CK-MB (CK-2) Troponin T Total Protein Albumin Triglycerides Cholesterol LDL Cholesterol Direct HDL Cholesterol Arterial Blood Glucose 107 H Arterial Blood Ionized Calcium Urine Creatinine Urine Total Protein 04/23/21 04/23/21 04/23/21 14:21 14:21 15:11 RBC Hgb Hct RDW 16.3 H Lymph % (Auto) [place] % (Auto) Lymph # (Auto) Seg Neutrophils % Seg Neuts % (Manual) Lymphocytes % (Manual) Monocytes % (Manual) Lymphocytes # (Manual) D-Dimer Heparin Anti-Xa Level ABG pH POC ABG pO2 68.6 L ABG pO2 ABG Oxyhemoglobin 91.3 L ABG Potassium ABG Chloride 113.0 H ABG Glucose 100 H Carboxyhemoglobin Potassium Chloride 113.1 H Carbon Dioxide 20 L BUN 18 H Creatinine Glucose POC Glucose Calcium 8.2 L Phosphorus Magnesium AST 59 H ALT Total Creatine Kinase 681 H CK-MB (CK-2) Troponin T Total Protein 5.5 L Albumin 2.3 L Triglycerides Cholesterol LDL Cholesterol Direct HDL Cholesterol Arterial Blood Glucose 100 H Arterial Blood Ionized Calcium Urine Creatinine Urine Total Protein 04/23/21 04/24/21 04/24/21 18:30 04:00 05:37 RBC Hgb Hct RDW Lymph % (Auto) [place] % (Auto) Lymph # (Auto) Seg Neutrophils % Seg Neuts % (Manual) Lymphocytes % (Manual) Monocytes % (Manual) Lymphocytes # (Manual) D-Dimer Heparin Anti-Xa Level 1.84 H ABG pH POC ABG pO2 51.9 L ABG pO2 ABG Oxyhemoglobin 84.9 L ABG Potassium ABG Chloride 112.0 H ABG Glucose 138 H Carboxyhemoglobin Potassium Chloride Carbon Dioxide BUN Creatinine Glucose POC Glucose 108 H Calcium Phosphorus Magnesium AST ALT Total Creatine Kinase CK-MB (CK-2) Troponin T Total Protein Albumin Triglycerides Cholesterol LDL Cholesterol Direct HDL Cholesterol Arterial Blood Glucose 138 H Arterial Blood Ionized Calcium Urine Creatinine Urine Total Protein 04/24/21 04/24/21 04/24/21 10:00 10:00 10:14 RBC Hgb Hct RDW 16.0 H Lymph % (Auto) [place] % (Auto) Lymph # (Auto) Seg Neutrophils % Seg Neuts % (Manual) Lymphocytes % (Manual) Monocytes % (Manual) Lymphocytes # (Manual) D-Dimer Heparin Anti-Xa Level 0.84 H ABG pH POC ABG pO2 ABG pO2 ABG Oxyhemoglobin ABG Potassium ABG Chloride ABG Glucose Carboxyhemoglobin Potassium Chloride 109.9 H Carbon Dioxide BUN Creatinine Glucose 118 H POC Glucose Calcium Phosphorus 2.00 L Magnesium 2.40 H AST 59 H ALT Total Creatine Kinase 396 H CK-MB (CK-2) Troponin T Total Protein 5.5 L Albumin 2.4 L Triglycerides Cholesterol LDL Cholesterol Direct HDL Cholesterol Arterial Blood Glucose Arterial Blood Ionized Calcium Urine Creatinine Urine Total Protein 04/24/21 04/24/21 11:14 12:00 RBC Hgb Hct RDW Lymph % (Auto) [place] % (Auto) Lymph # (Auto) Seg Neutrophils % Seg Neuts % (Manual) Lymphocytes % (Manual) Monocytes % (Manual) Lymphocytes # (Manual) D-Dimer Heparin Anti-Xa Level ABG pH POC ABG pO2 58.2 L ABG pO2 ABG Oxyhemoglobin 88.3 L ABG Potassium ABG Chloride 111.0 H ABG Glucose 117 H Carboxyhemoglobin 0.3 L Potassium Chloride Carbon Dioxide BUN Creatinine Glucose POC Glucose 112 H Calcium Phosphorus Magnesium AST ALT Total Creatine Kinase CK-MB (CK-2) Troponin T Total Protein Albumin Triglycerides Cholesterol LDL Cholesterol Direct HDL Cholesterol Arterial Blood Glucose 117 H Arterial Blood Ionized Calcium Urine Creatinine Urine Total Protein
[2021-04-24] MEDS: fentaNYL 100 MCG/2 ML INJ IV PRN ×2 (15:22→16:44)
--- NOTE | 2021-04-24 16:46 | Progress Note ---
Assessment and Plan Assessment and plan: Per ER... 04-21 The patient is a 66-year-old female present with a chief complaint of altered mental status. Per EMS the patient has a history of previous CVA with left- sided weakness. Family reported that the patient developed increased left-sided weakness 3 days ago. The patient was taken to the emergency department but refused to be seen so family brought the patient back home. The following day the patient "stopped speaking" and family eventually brought the patient into the ED today as there was no improvement. Patient opens her eyes to sternal rub and answers some questions but appears confused. First oxygen saturation in ER was 69%. Pt intubated for airway protection and hypoxia believed to be due to unprotected airway post seizure. Pt was ER hold and arrived to ICU overnight PMH HTN HLD CVA 2 Y AGO with left sided residual weakness NOK daughter (see previous encounter note 07/2019) NEURO hx CVA with l sided weakness; new onset sz new onset sz UDS neg on admit CK elevated- Cr elevated had been getting IVF but due to hypoxia the IVF were d/c by Dr Arrington neuro following LUE with spasticity and contraction of l hand; noted pt flexing legs; PERRL; no commands CT head on admit- IMPRESSION: Encephalomalacia in the right temporal lobe, frontal lobe; no acute/subacute parenchymal lesions MRI today- Encephalomalacia in the right cerebral hemisphere - see report on keppra fentanyl for sedation daily SAT family updated on plan of care case management following CV: hx htn on norvasc at home per EMR asa/statin echo 04/22 see report SR-ST no pressors RESP acute resp failure with PE on CTA intubated in ER; remains ventilated see EMR for titration CT noted - a/c lung disease evident with LPA PE's noted remains hypoxic but with some improvement covid pending US BLE today - report pending chest xray no focal consolidation GI -nap TF nutrition following PPI bowel reg -LIZBETH/rhabdo sp sz [place]ral strict I/O pt net pos 1.4 L over the last 24 hours trend and replace electrolytes as needed trend BUN/CR/CK nephrology following IVF d/c per Dr Arrington due volume contributing to hypoxia HEME- PE VTE on hep for PE heparin drip for known PE trending coags/Xa trend CBC no bleeding on exam LE dopplers completed- results pending AM labs resulted "TNR"- resent at 1430 AM labs ordered for 04/24 ID- nap covid pending follow cultures 04/21 sputum culture afebrile no antibiotics at this time are indicated continue to trend temp and WBC curve ENDO stress hyperglycemia blood glucose monitoring avoid hypoglycemia 04/24: Patient still unresponsive, Critical care team input noted. awaiting further input from Neurology. vent management per critical care team The high probability of a clinically significant, sudden or life threatening deterioration of the [multiple organ] system(s) required my full and direct attention, intervention and personal management. The aggregate critical care time was [35] minutes. This time is in addition to time spent performing reported procedures but includes the following: [x] Data Review and interpretation [x] Patient assessment and monitoring of vital signs [x] Documentation [x] Medication orders and management History Interval history: Patient seen and examined, remains sedated. Hospitalist Physical - Physical exam Narrative exam: General appearance: Present: no acute distress, well-nourished, other (Sedated on vent) - EENT Eyes: Present: PERRL ENT: clear oral mucosa - Neck Neck: Present: supple - Respiratory Respiratory effort: normal - Cardiovascular Rhythm: regular Heart Sounds: Present: S1 & S2 - Extremities Extremities: no ischemia Peripheral Pulses: within normal limits - Abdominal General gastrointestinal: soft - Integumentary Integumentary: Present: clear, warm, dry - Psychiatric Psychiatric: other - Neurologic Neurologic: other (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) - Constitutional Vitals: Temp Pulse Resp BP Pulse Ox 99.3 F 101 H 32 H 116/65 94 04/24/21 16:01 04/24/21 16:00 04/24/21 16:00 04/24/21 16:00 04/24/21 16:00 General appearance: Present: no acute distress, well-nourished, other (Sedated on vent) HEART Score - HEART Score Age: 45-65 Risk factors: 1-2 risk factors Troponin: Troponin T 0.055 ng/mL (0.00-0.029) H 04/21/21 16:32 - Critical Actions Critical Actions: 0-3 pts:0.9-1.7%risk of adverse cardiac event.Candidate for discharge Results - Labs CBC & Chem 7: 04/24/21 10:00 04/24/21 10:00 Labs: Laboratory Last Values WBC 7.8 K/mm3 (4.5-11.0) 04/24/21 10:00 RBC 3.84 M/mm3 (3.65-5.03) 04/24/21 10:00 Hgb 11.8 gm/dl (10.1-14.3) 04/24/21 10:00 Hct 36.3 % (30.3-42.9) 04/24/21 10:00 MCV 95 fl (79-97) 04/24/21 10:00 MCH 31 pg (28-32) 04/24/21 10:00 MCHC 32 % (30-34) 04/24/21 10:00 RDW 16.0 % (13.2-15.2) H 04/24/21 10:00 Plt Count 238 K/mm3 (140-440) 04/24/21 10:00 Lymph % (Auto) 12.0 % (13.4-35.0) L 04/22/21 05:29 [place] % (Auto) 8.0 % (0.0-7.3) H 04/22/21 05:29 Eos % (Auto) 3.0 % (0.0-4.3) 04/22/21 05:29 Baso % (Auto) 0.7 % (0.0-1.8) 04/22/21 05:29 Lymph # (Auto) 1.1 K/mm3 (1.2-5.4) L 04/22/21 05:29 [place] # (Auto) 0.7 K/mm3 (0.0-0.8) 04/22/21 05:29 Eos # (Auto) 0.3 K/mm3 (0.0-0.4) 04/22/21 05:29 Baso # (Auto) 0.1 K/mm3 (0.0-0.1) 04/22/21 05:29 Add Manual Diff Complete 04/21/21 16:32 Total Counted 100 04/21/21 16:32 Seg Neutrophils % 76.3 % (40.0-70.0) H 04/22/21 05:29 Seg Neuts % (Manual) 79.0 % (40.0-70.0) H 04/21/21 16:32 Lymphocytes % (Manual) 13.0 % (13.4-35.0) L 04/21/21 16:32 Monocytes % (Manual) 8.0 % (0.0-7.3) H 04/21/21 16:32 Nucleated RBC % Not Reportable 04/21/21 16:32 Seg Neutrophils # 6.7 K/mm3 (1.8-7.7) 04/22/21 05:29 Seg Neutrophils # Man 6.6 K/mm3 (1.8-7.7) 04/21/21 16:32 Band Neutrophils # 0.0 K/mm3 04/21/21 16:32 Lymphocytes # (Manual) 1.1 K/mm3 (1.2-5.4) L 04/21/21 16:32 Abs React Lymphs (Man) 0.0 K/mm3 04/21/21 16:32 Monocytes # (Manual) 0.7 K/mm3 (0.0-0.8) 04/21/21 16:32 Eosinophils # (Manual) 0.0 K/mm3 (0.0-0.4) 04/21/21 16:32 Basophils # (Manual) 0.0 K/mm3 (0.0-0.1) 04/21/21 16:32 Metamyelocytes # 0.0 K/mm3 04/21/21 16:32 Myelocytes # 0.0 K/mm3 04/21/21 16:32 Promyelocytes # 0.0 K/mm3 04/21/21 16:32 Blast Cells # 0.0 K/mm3 04/21/21 16:32 WBC Morphology Not Reportable 04/21/21 16:32 Hypersegmented Neuts Not Reportable 04/21/21 16:32 Hyposegmented Neuts Not Reportable 04/21/21 16:32 Hypogranular Neuts Not Reportable 04/21/21 16:32 Smudge Cells Not Reportable 04/21/21 16:32 Toxic Granulation Not Reportable 04/21/21 16:32 Toxic Vacuolation Not Reportable 04/21/21 16:32 Dohle Bodies Not Reportable 04/21/21 16:32 Pelger-Huet Anomaly Not Reportable 04/21/21 16:32 Brenda Rods Not Reportable 04/21/21 16:32 Platelet Estimate Consistent w auto 04/21/21 16:32 Clumped Platelets Not Reportable 04/21/21 16:32 Plt Clumps, EDTA Not Reportable 04/21/21 16:32 Large Platelets Not Reportable 04/21/21 16:32 Giant Platelets Not Reportable 04/21/21 16:32 Platelet Satelliting Not Reportable 04/21/21 16:32 Plt Morphology Comment Not Reportable 04/21/21 16:32 RBC Morphology Not Reportable 04/21/21 16:32 Dimorphic RBCs Not Reportable 04/21/21 16:32 Polychromasia Not Reportable 04/21/21 16:32 Hypochromasia Not Reportable 04/21/21 16:32 Poikilocytosis Not Reportable 04/21/21 16:32 Anisocytosis 1+ 04/21/21 16:32 Microcytosis Not Reportable 04/21/21 16:32 Macrocytosis Not Reportable 04/21/21 16:32 Spherocytes Not Reportable 04/21/21 16:32 Pappenheimer Bodies Not Reportable 04/21/21 16:32 Sickle Cells Not Reportable 04/21/21 16:32 Target Cells Not Reportable 04/21/21 16:32 Tear Drop Cells Not Reportable 04/21/21 16:32 Ovalocytes Not Reportable 04/21/21 16:32 Helmet Cells Not Reportable 04/21/21 16:32 [place] Bodies Not Reportable 04/21/21 16:32 Jolley Rings Not Reportable 04/21/21 16:32 Chay Cells Not Reportable 04/21/21 16:32 Bite Cells Not Reportable 04/21/21 16:32 Crenated Cell Not Reportable 04/21/21 16:32 Elliptocytes Not Reportable 04/21/21 16:32 Acanthocytes (Spur) Not Reportable 04/21/21 16:32 Rouleaux Not Reportable 04/21/21 16:32 Hemoglobin C Crystals Not Reportable 04/21/21 16:32 Schistocytes Not Reportable 04/21/21 16:32 Malaria parasites Not Reportable 04/21/21 16:32 Uli Bodies Not Reportable 04/21/21 16:32 Hem Pathologist Commnt No 04/21/21 16:32 PT 13.2 Sec. (12.2-14.9) 04/22/21 00:32 INR 0.95 (0.87-1.13) 04/22/21 00:32 APTT 29.2 Sec. (24.2-36.6) 04/22/21 00:32 D-Dimer 1522.26 ng/mlDDU (0-234) H 04/21/21 16:30 Heparin Anti-Xa Level 0.84 U.I./ml (0.3-0.7) H 04/24/21 10:14 ABG pH 7.287 (7.320-7.450) L 04/24/21 15:23 POC ABG pCO2 54.3 mmHg (32.0-48.0) H 04/24/21 15:23 ABG pCO2 46.0 mm Hg 04/22/21 17:30 POC ABG pO2 67.5 mmHg (83-108) L 04/24/21 15:23 ABG pO2 99.6 mm Hg (80.0-90.0) H 04/22/21 17:30 POC ABG HCO3 25.3 04/24/21 15:23 ABG HCO3 24.4 mmol/L (20.0-26.0) 04/22/21 17:30 ABG O2 Saturation 90.6 (0-100) 04/24/21 15:23 ABG O2 Content 19.9 (0.0-44) 04/22/21 17:30 POC ABG Base Excess -1.9 04/24/21 15:23 ABG Base Excess -1.6 mmol/L (-2.0-3.0) 04/22/21 17:30 ABG Hemoglobin 12.6 (12.0-17.5) 04/24/21 15:23 ABG Oxyhemoglobin 89.9 (94-98) L 04/24/21 15:23 ABG Carboxyhemoglobin 0.9 % (0.0-5.0) 04/22/21 17:30 ABG Methemoglobin 0.3 (0.0-1.5) 04/24/21 15:23 ABG Sodium 144.1 mmol/L (136.0-145.0) 04/24/21 15:23 ABG Potassium 4.0 mmol/L (3.40-4.50) 04/24/21 15:23 ABG Chloride 110.0 mmol/L (98-107) H 04/24/21 15:23 ABG Glucose 126 mg/dL (65-95) H 04/24/21 15:23 Oxyhemoglobin 95.9 % (95.0-99.0) 04/22/21 17:30 Carboxyhemoglobin 0.5 (0.5-1.5) 04/24/21 15:23 FiO2 100 % 04/22/21 17:30 FiO2 % 100.0 04/24/21 15:23 Sodium 144 mmol/L (137-145) 04/24/21 10:00 Potassium 4.2 mmol/L (3.6-5.0) 04/24/21 10:00 Chloride 109.9 mmol/L (98-107) H 04/24/21 10:00 Carbon Dioxide 24 mmol/L (22-30) 04/24/21 10:00 Anion Gap 14 mmol/L 04/24/21 10:00 BUN 15 mg/dL (7-17) 04/24/21 10:00 Creatinine 0.8 mg/dL (0.6-1.2) 04/24/21 10:00 Estimated GFR > 60 ml/min 04/24/21 10:00 BUN/Creatinine Ratio 19 % 04/24/21 10:00 Glucose 118 mg/dL (65-100) H 04/24/21 10:00 POC Glucose 112 mg/dL (70-105) H 04/24/21 12:00 Calcium 8.9 mg/dL (8.4-10.2) 04/24/21 10:00 Phosphorus 2.00 mg/dL (2.5-4.5) L 04/24/21 10:00 Magnesium 2.40 mg/dL (1.7-2.3) H 04/24/21 10:00 Total Bilirubin 0.40 mg/dL (0.1-1.2) 04/24/21 10:00 AST 59 units/L (5-40) H 04/24/21 10:00 ALT 30 units/L (7-56) 04/24/21 10:00 Alkaline Phosphatase 83 units/L (35-129) 04/24/21 10:00 Ammonia 56.0 umol/L (25-60) 04/21/21 16:32 Total Creatine Kinase 396 units/L (30-135) H 04/24/21 10:00 CK-MB (CK-2) 22.4 ng/mL (0.0-4.0) H 04/21/21 16:32 CK-MB (CK-2) Rel Index 0.7 (0-4) 04/21/21 16:32 Troponin T 0.055 ng/mL (0.00-0.029) H 04/21/21 16:32 Total Protein 5.5 g/dL (6.3-8.2) L 04/24/21 10:00 Albumin 2.4 g/dL (3.9-5) L 04/24/21 10:00 Albumin/Globulin Ratio 0.8 % 04/24/21 10:00 Triglycerides 235 mg/dL (2-149) H 04/21/21 16:32 Cholesterol 220 mg/dL (50-199) H 04/21/21 16:32 LDL Cholesterol Direct 142 mg/dL (50-130) H 04/21/21 16:32 HDL Cholesterol 36 mg/dL (40-59) L 04/21/21 16:32 Cholesterol/HDL Ratio 6.11 % 04/21/21 16:32 TSH 0.876 mlU/mL (0.270-4.200) 04/21/21 16:32 Free T4 1.05 ng/dL (0.76-1.46) 04/21/21 16:32 Arterial Blood Glucose 126 mg/dL (65-95) H 04/24/21 15:23 Arterial Blood Ionized Calcium 5.1 mg/dL (4.6-5.3) 04/24/21 15:23 Urine Color Yellow (Yellow) 04/21/21 Unknown Urine Turbidity Clear (Clear) 04/21/21 Unknown Urine pH 5.0 (5.0-7.0) 04/21/21 Unknown Ur Specific [place] 1.014 (1.003-1.030) 04/21/21 Unknown Urine Protein 100 mg/dl mg/dL (Negative) 04/21/21 Unknown Urine Glucose (UA) Neg mg/dL (Negative) 04/21/21 Unknown Urine Ketones Tr mg/dL (Negative) 04/21/21 Unknown Urine Blood Lg (Negative) 04/21/21 Unknown Urine Nitrite Neg (Negative) 04/21/21 Unknown Urine Bilirubin Neg (Negative) 04/21/21 Unknown Urine Urobilinogen 2.0 mg/dL (<2.0) 04/21/21 Unknown Ur Leukocyte Esterase Neg (Negative) 04/21/21 Unknown Urine WBC (Auto) 5.0 /HPF (0.0-6.0) 04/21/21 Unknown Urine RBC (Auto) 1.0 /HPF (0.0-6.0) 04/21/21 Unknown U Epithel Cells (Auto) 1.0 /HPF (0-13.0) 04/21/21 Unknown Urine Mucus Few /HPF 04/21/21 Unknown Urine Creatinine 138.9 mg/dL (0.1-20.0) H 04/22/21 13:03 Urine Total Protein 86 mg/dL (5-11.8) H 04/22/21 13:03 Urine Opiates Screen Negative 04/21/21 Unknown Urine Methadone Screen Negative 04/21/21 Unknown Ur Barbiturates Screen Negative 04/21/21 Unknown Ur Phencyclidine Scrn Negative 04/21/21 Unknown Ur Amphetamines Screen Negative 04/21/21 Unknown U Benzodiazepines Scrn Negative 04/21/21 Unknown Urine Cocaine Screen Negative 04/21/21 Unknown U Marijuana (THC) Screen Negative 04/21/21 Unknown Drugs of Abuse Note Disclamer 04/21/21 Unknown Plasma/Serum Alcohol < 0.01 % (0-0.07) 04/21/21 16:32 Coronavirus (PCR) Negative (Negative) 04/23/21 Unknown Microbiology: Microbiology 04/21/21 15:44 Tracheal Aspirate Sputum Culture - Preliminary [place]/IV: Voiding Method Incontinent Active Medications - Current Medications Current Medications: Generic Name Dose Route Start Last Admin Trade Name Freq PRN Reason Stop Dose Admin Acetaminophen 650 mg 04/21/21 21:11 Acetaminophen 325 Mg Tab PO Q4H PRN Pain MILD(1-3)/Fever >100.5/DICKINSON Lipase/Protease/Amylase 1 each 04/22/21 10:51 Lipase 10,500/Protease 25,000/Amylase 43,750 (Units) Dr Cap FEEDTUBE PRN PRN For Clogged Feeding Tube Enoxaparin Sodium 80 mg 04/24/21 14:00 04/24/21 14:27 Enoxaparin 80 Mg/0.8 Ml Inj SUB-Q 80 mg Q12H MINOR Administration Famotidine 20 mg 04/24/21 10:00 04/24/21 09:40 Famotidine 20 Mg Tab PO 20 mg BID MINOR Administration Fentanyl 50 mcg 04/21/21 15:46 04/24/21 15:22 Fentanyl 100 Mcg/2 Ml Inj IV 50 mcg Q10MIN PRN Administration ANALGESIA Hydrophilic Ointment 1 applic 04/21/21 15:46 Lip Therapy Vaseline TP Q2HR PRN Dry Lips Fentanyl Citrate 2,000 mcg in 100 mls @ 3.515 mls/hr 04/21/21 16:00 04/24/21 16:03 Fentanyl Drip Premix IV 3 mcg/kg/hr TITR MINOR 10.546 mls/hr Titration Protocol 1 MCG/KG/HR Levetiracetam 750 mg/ Dextrose 107.5 mls @ 400 mls/hr 04/22/21 04:00 04/24/21 16:02 IV 04/24/21 23:54 400 mls/hr Q12H MINOR Administration Levetiracetam 750 mg 04/25/21 10:00 Levetiracetam 500 Mg/5 Ml Oral Liqd PO BID MINOR Multi-Ingred Cream/Lotion/Oil/Oint 1 applic 04/21/21 15:46 Mineral Oil/Petrolatum, White Ophth Oint 3.5 Gm OU Q4HR PRN Dry Eye(s) Potassium Phos/Sodium Phos 1 each 04/24/21 14:00 04/24/21 14:27 Phos-Nak Powder Packet PO 04/26/21 08:01 1 each Q6H MINOR Administration Senna/Docusate Sodium 1 tab 04/21/21 22:00 04/24/21 09:40 Sennosides/Docusate Sodium 8.6/50 Mg Tab FEEDTUBE 1 tab BID MINOR Administration Simple Syrup 15 ml 04/22/21 10:51 Simple Syrup 15 Ml FEEDTUBE PRN PRN Hypoglycemia Simple Syrup 30 ml 04/22/21 10:51 Simple Syrup 15 Ml FEEDTUBE PRN PRN Hypoglycemia Sodium Bicarbonate 325 mg 04/22/21 10:51 Sodium Bicarbonate 325 Mg Tab FEEDTUBE PRN PRN For Clogged Feeding Tube Sodium Chloride 10 ml 04/21/21 22:00 04/24/21 09:40 Sodium Chloride 0.9% 10 Ml Flush Syringe IV 10 ml BID MINOR Administration Sodium Chloride 10 ml 04/21/21 21:11 Sodium Chloride 0.9% 10 Ml Flush Syringe IV PRN PRN LINE FLUSH Nutrition/Malnutrition Assess - Dietary Evaluation Nutrition/Malnutrition Findings: Nutrition Notes Start: 04/22/21 10:45 Freq: Status: Active Protocol: Document 04/24/21 14:58 MAYRA (Rec: 04/24/21 15:04 MAYRA [id number]) Nutrition Notes Initial or Follow up Reassessment Current Diagnosis Acute Kidney Injury, Hypertension,Stroke, Hyperlipidemia Other Pertinent Diagnosis New onset seizures, AMS, pulmonary embolism Current Diet TF - Nepro 35ml/hr Labs/Tests reviewed Pertinent Medications reviewed Height 5 ft 9 in Weight 79.7 kg [place] Body Weight (kg) 65.90 BMI 25.9 Weight change and time frame wt change noted Weight Status Appropriate Subjective/Other Information Per RN, pt tolerating TF at goal rate. Pt remains on vent support. Percent of energy/protein needs met: 89% energy 71% pro Burn Absent Trauma Absent #1 Nutrition Diagnosis Inadequate oral intake Diagnosis Progress(for reassessment Continues documentation) Is patient on ventilator? Yes Is Patient Ambulatory and/or Out of Bed No REE-([facility]-confined to bed) [phone] Calculation Used for Recommendations [facility] Additional Notes Pro needs 1.2-2g/k-159g/ day Fluid needs 1ml/kcal Nutrition Intervention Nutrition Support: Continue Nepro at 35ml/hr with 150ml water flush q4h. Kcal 1,512 Protein (gm) 68 Carbohydrates (gm) 135 Fat (gm) 81 Fluid (mL) 611 Fiber (gm) 11 Goal #1 TF tolerance Goal #2 TF to meet at least 75% energy and pro needs Follow-Up By: 05/01/21 Additional Comments F/U: stable TF, vent status, wt
[2021-04-25] MEDS: fentaNYL 100 MCG/2 ML INJ IV PRN ×2 (04:20→05:00)
[2021-04-25] MEDS: PHOS-NAK POWDER PACKET PO SCH ×4 (05:24→21:00)
[2021-04-25] MEDS: ENOXAPARIN 80 MG/0.8 ML INJ SUB-Q SCH ×2 (05:25→14:50)
[2021-04-25] MEDS ORDERED: SODIUM CHLORIDE 0.9% 500 ML 500 ML ONE (06:14)
[2021-04-25] MEDS ORDERED: SODIUM CHLORIDE 0.9% 500 ML 500 ML IV ONE (07:00)
[2021-04-25] MEDS: FREE WATER PO SCH ×5 (08:08→23:00)
[2021-04-25 08:09] LABS: BUN/Creatinine Ratio 16; Blood Urea Nitrogen 14 mg/dL (7-17); Calcium 9.2 mg/dL (8.4-10.2); Hemolysis Index 5
--- NOTE | 2021-04-25 08:52 | Progress Note ---
Assessment and Plan - Patient Problems (1) LIZBETH (acute kidney injury) Current Visit: Yes Status: Acute Plan to address problem: Prerenal azotemia secondary to volume depletion secondary to poor oral intake versus acute tubular necrosis secondary to rhabdomyolysis. Kidney function has improved back to normal. No further intervention from renal standpoint. Will sign off. Please reconsult as needed (2) Hyperkalemia Current Visit: Yes Status: Acute Plan to address problem: Potassium is normal. Follow-up potassium (3) Elevated liver function tests Current Visit: Yes Status: Acute Plan to address problem: Related to rhabdomyolysis. Follow-up liver function tests (4) Proteinuria Current Visit: Yes Status: Acute Plan to address problem: Suspect baseline chronic kidney disease. Follow-up proteinuria as an outpatient (5) New onset seizure Current Visit: Yes Status: Acute Plan to address problem: Continue Keppra. Management by neurologist. (6) Rhabdomyolysis Current Visit: Yes Status: Acute Plan to address problem: CPK improved back to normal (7) Hypertension Current Visit: Yes Status: Chronic Qualifiers: Hypertension type: primary hypertension Qualified Code(s): I10 - Essential (primary) hypertension Plan to address problem: Follow-up blood pressure on current medication Subjective Date of service: 04/26/21 Principal diagnosis: Acute kidney injury, rhabdomyolysis Interval history: Patient seen lying in bed in the ICU. Intubated on ventilator. Not on Vasopressors Objective - Exam Narrative Exam: Middle-aged -[place] female lying in bed intubated on ventilator HEENT: NCAT, pink oral mucous membrane Neck: Supple, no venous distention CVS: S1S2 RRR with no murmur, rub or gallop Chest: Diminished breath sounds with faint rhonchi Abdomen: Protuberant, soft, nontender, no organomegaly, bowel sounds are present Extremities: No edema Neuro: Sedated, intubated on ventilator - Vital Signs Vital signs: Vital Signs - 12hr 04/24/21 04/24/21 04/24/21 20:56 21:01 21:11 Temperature Pulse Rate 108 H 109 H 109 H Respiratory 24 23 Rate Blood Pressure 125/70 116/65 116/65 O2 Sat by Pulse 95 94 94 Oximetry 04/24/21 04/24/21 04/24/21 21:21 21:31 21:41 Temperature Pulse Rate 109 H 110 H 108 H Respiratory 25 H 25 H 24 Rate Blood Pressure 116/65 116/65 116/65 O2 Sat by Pulse 93 92 94 Oximetry 04/24/21 04/24/21 04/24/21 21:51 22:01 22:11 Temperature Pulse Rate 108 H 107 H 114 H Respiratory 25 H 25 H 28 H Rate Blood Pressure 116/65 116/65 116/65 O2 Sat by Pulse 93 94 92 Oximetry 04/24/21 04/24/21 04/24/21 22:21 22:31 22:41 Temperature Pulse Rate 118 H 115 H 141 H Respiratory 28 H 26 H 42 H Rate Blood Pressure 116/65 116/65 116/65 O2 Sat by Pulse 92 93 81 L Oximetry 04/24/21 04/24/21 04/24/21 22:47 22:51 23:01 Temperature Pulse Rate 137 H 140 H 144 H Respiratory 33 H 43 H 40 H Rate Blood Pressure 116/65 116/65 116/65 O2 Sat by Pulse 85 86 82 L Oximetry 04/24/21 04/24/21 04/24/21 23:09 23:11 23:21 Temperature 97.1 F L Pulse Rate 132 H 122 H Respiratory 29 H 31 H Rate Blood Pressure 116/65 116/65 O2 Sat by Pulse 92 93 Oximetry 04/24/21 04/24/21 04/24/21 23:31 23:41 23:51 Temperature Pulse Rate 117 H 114 H 113 H Respiratory 28 H 25 H 24 Rate Blood Pressure 116/65 116/65 116/65 O2 Sat by Pulse 93 92 91 Oximetry 04/25/21 04/25/21 04/25/21 00:00 00:11 00:15 Temperature Pulse Rate 113 H 112 H 112 H Respiratory 23 21 Rate Blood Pressure 96/63 96/63 121/69 O2 Sat by Pulse 92 92 92 Oximetry 04/25/21 04/25/21 04/25/21 00:21 00:31 00:41 Temperature Pulse Rate 112 H 114 H 110 H Respiratory 22 21 20 Rate Blood Pressure 96/63 96/63 96/63 O2 Sat by Pulse 91 91 92 Oximetry 04/25/21 04/25/21 04/25/21 00:51 01:01 01:11 Temperature Pulse Rate 109 H 109 H 110 H Respiratory 20 23 20 Rate Blood Pressure 96/63 96/63 96/63 O2 Sat by Pulse 91 92 91 Oximetry 04/25/21 04/25/21 04/25/21 01:21 01:31 01:41 Temperature Pulse Rate 112 H 108 H 109 H Respiratory 22 19 21 Rate Blood Pressure 96/63 96/63 96/63 O2 Sat by Pulse 93 92 93 Oximetry 04/25/21 04/25/21 04/25/21 01:51 02:01 02:11 Temperature Pulse Rate 106 H 108 H 108 H Respiratory 19 22 20 Rate Blood Pressure 96/63 96/63 96/63 O2 Sat by Pulse 93 93 93 Oximetry 04/25/21 04/25/21 04/25/21 02:21 02:31 02:41 Temperature Pulse Rate 107 H 107 H 108 H Respiratory 22 21 22 Rate Blood Pressure 96/63 96/63 96/63 O2 Sat by Pulse 95 93 95 Oximetry 04/25/21 04/25/21 04/25/21 02:51 03:01 03:11 Temperature Pulse Rate 109 H 108 H 108 H Respiratory 21 22 20 Rate Blood Pressure 96/63 96/63 96/63 O2 Sat by Pulse 90 90 92 Oximetry 04/25/21 04/25/21 04/25/21 03:21 03:31 03:41 Temperature Pulse Rate 108 H 108 H 108 H Respiratory 21 23 24 Rate Blood Pressure 96/63 96/63 96/63 O2 Sat by Pulse 93 94 94 Oximetry 04/25/21 04/25/21 04/25/21 03:51 04:00 04:01 Temperature 100.6 F H Pulse Rate 109 H 110 H Respiratory 23 23 Rate Blood Pressure 96/63 96/63 O2 Sat by Pulse 94 92 Oximetry 04/25/21 04/25/21 04/25/21 04:11 04:12 04:21 Temperature Pulse Rate 131 H 139 H 134 H Respiratory 34 H 44 H Rate Blood Pressure 96/63 163/83 96/63 O2 Sat by Pulse 87 88 85 Oximetry 04/25/21 04/25/21 04/25/21 04:31 04:41 04:51 Temperature Pulse Rate 149 H 141 H 131 H Respiratory 32 H 30 H 30 H Rate Blood Pressure 96/63 96/63 96/63 O2 Sat by Pulse 80 L 82 L 84 Oximetry 04/25/21 04/25/21 04/25/21 05:01 05:11 05:21 Temperature Pulse Rate 130 H 142 H 145 H Respiratory 26 H 29 H 27 H Rate Blood Pressure 96/63 96/63 96/63 O2 Sat by Pulse 85 90 85 Oximetry 04/25/21 04/25/21 04/25/21 05:31 05:41 05:51 Temperature Pulse Rate 153 H 149 H 144 H Respiratory 44 H 36 H 29 H Rate Blood Pressure 96/63 96/63 96/63 O2 Sat by Pulse 74 L 78 L 80 L Oximetry 04/25/21 06:01 Temperature Pulse Rate 150 H Respiratory 37 H Rate Blood Pressure 96/63 O2 Sat by Pulse 80 L Oximetry - Lab 04/26/21 06:13 04/25/21 07:42 Most recent lab results ABG pH 7.341 (7.320-7.450) 04/25/21 04:00 ABG pCO2 46.0 mm Hg 04/22/21 17:30 ABG pO2 99.6 mm Hg (80.0-90.0) H 04/22/21 17:30 ABG HCO3 24.4 mmol/L (20.0-26.0) 04/22/21 17:30 ABG O2 Saturation 79.8 (0-100) 04/25/21 04:00 Calcium 9.2 mg/dL (8.4-10.2) 04/25/21 07:42 Phosphorus 2.90 mg/dL (2.5-4.5) D 04/25/21 07:42 Magnesium 2.40 mg/dL (1.7-2.3) H 04/24/21 10:00 Urine Creatinine 138.9 mg/dL (0.1-20.0) H 04/22/21 13:03 Urine Total Protein 86 mg/dL (5-11.8) H 04/22/21 13:03 Medications & Allergies - Medications Allergies/Adverse Reactions: Allergies No Known Allergies Allergy (Unverified 03/04/19 19:33) Home Medications: Home Medications Medication Instructions Recorded Confirmed Last Taken Type Lipitor 40 mg PO QHS #30 03/10/19 04/25/21 Unknown Rx Aspirin 300 mg PO QDAY 04/25/21 04/25/21 Unknown History Aspirin [Aspirin BABY CHEW TAB] 81 mg PO QDAY 04/25/21 04/25/21 Unknown History Sertraline [Zoloft] 50 mg PO QDAY 04/25/21 04/25/21 Unknown History amLODIPine 10 mg PO QDAY 04/25/21 04/25/21 Unknown History hydroCHLOROthiazide 12.5 mg PO QDAY 04/25/21 04/25/21 Unknown History [Hydrochlorothiazide] Active Medications: Generic Name Dose Route Start Last Admin Trade Name Freq PRN Reason Stop Dose Admin Acetaminophen 650 mg 04/21/21 21:11 Acetaminophen 325 Mg Tab PO Q4H PRN Pain MILD(1-3)/Fever >100.5/DICKINSON Lipase/Protease/Amylase 1 each 04/22/21 10:51 Lipase 10,500/Protease 25,000/Amylase 43,750 (Units) Dr Ryan FEEDTUBE PRN PRN For Clogged Feeding Tube Enoxaparin Sodium 80 mg 04/24/21 14:00 04/25/21 05:25 Enoxaparin 80 Mg/0.8 Ml Inj SUB-Q 80 mg Q12H MINOR Administration Famotidine 20 mg 04/24/21 10:00 04/24/21 21:20 Famotidine 20 Mg Tab PO 20 mg BID MINOR Administration Hydrophilic Ointment 1 applic 04/21/21 15:46 Lip Therapy Vaseline TP Q2HR PRN Dry Lips Fentanyl Citrate 2,000 mcg in 100 mls @ 3.515 mls/hr 04/21/21 16:00 04/24/21 17:25 Fentanyl Drip Premix IV 3 mcg/kg/hr TITR MINOR 10.546 mls/hr Administration Protocol 1 MCG/KG/HR Dexmedetomidine HCl 400 mcg/ 104 mls @ 4.144 mls/hr 04/25/21 06:00 04/25/21 06:12 Sodium Chloride IV 0.2 mcg/kg/hr TITRATE MINOR 4.144 mls/hr Administration Protocol 0.2 MCG/KG/HR Levetiracetam 750 mg 04/25/21 10:00 Levetiracetam 500 Mg/5 Ml Oral Liqd PO BID MINOR Multi-Ingred Cream/Lotion/Oil/Oint 1 applic 04/21/21 15:46 Mineral Oil/Petrolatum, White Ophth Oint 3.5 Gm OU Q4HR PRN Dry Eye(s) Potassium Phos/Sodium Phos 1 each 04/24/21 14:00 04/25/21 05:24 Phos-Nak Powder Packet PO 04/26/21 08:01 1 each Q6H MINOR Administration Senna/Docusate Sodium 1 tab 04/21/21 22:00 04/24/21 21:20 Sennosides/Docusate Sodium 8.6/50 Mg Tab FEEDTUBE 1 tab BID MINOR Administration Simple Syrup 15 ml 04/22/21 10:51 Simple Syrup 15 Ml FEEDTUBE PRN PRN Hypoglycemia Simple Syrup 30 ml 04/22/21 10:51 Simple Syrup 15 Ml FEEDTUBE PRN PRN Hypoglycemia Sodium Bicarbonate 325 mg 04/22/21 10:51 Sodium Bicarbonate 325 Mg Tab FEEDTUBE PRN PRN For Clogged Feeding Tube Sodium Chloride 10 ml 04/21/21 22:00 04/24/21 21:20 Sodium Chloride 0.9% 10 Ml Flush Syringe IV 10 ml BID MINOR Administration Sodium Chloride 10 ml 04/21/21 21:11 Sodium Chloride 0.9% 10 Ml Flush Syringe IV PRN PRN LINE FLUSH
[2021-04-25] MEDS: fentaNYL DRIP Premix 2,000 MCG/100 ML BAG IV SCH ×3 (09:19→22:18)
[2021-04-25] MEDS: levETIRAcetam 500 MG/5 ML ORAL LIQD PO SCH ×2 (09:20→21:00)
[2021-04-25] MEDS: SENNOSIDES/DOCUSATE SODIUM 8.6/50 MG TAB FEEDTUBE SCH ×2 (09:20→21:00)
[2021-04-25] MEDS: FAMOTIDINE 20 MG TAB PO SCH ×2 (09:20→21:00)
--- NOTE | 2021-04-25 09:55 | Progress Note ---
Assessment and Plan 66 y/o female, intubated for airway protection, found to have severe ILD and no has refractory hypoxemia. 04/25/21: Picc line today. Increase PEEP to 16. Dropped TV back to 375. pH of 7.2 and greater is acceptable. Will also pulse dose for the next 72 hours and then transition to q6 dosing on Thursday. Will discuss current clinical state with daughter. Serial ABG's today to make sure pH stays where it needs to be and hopeful improvement in oxygenation. Guarded prognosis. 04/24/21: Will drop TV to 375 and Increase PEEP to 14. Will repeat ABG in one hour. If no improvements, may need to consider IV steroids for 48-72 hours. Exact etiology of chronic lung disease is not known. Would prefer not to give sedation vacation given high levels of oxygen required as agitation could make things worse. Right now, unable to determine current neuro state. Lungs are very very sick and even though this is a chronic issue, now with her drive diminished from the ventilator, most likely will be a difficult wean. Will discuss with family soon what the next steps could potentially be but would need to assess mental state first. Guarded prognosis. 1. Increase PEEP and repeat ABG 2. May need to consider IV steroids 3. Follow up neuro recs 4. Guarded prognosis. cCT 31 minutes. Subjective Date of service: 04/25/21 Principal diagnosis: Acute kidney injury, rhabdomyolysis Interval history: More agitated, attempted to self extubate this am. Started on precedex and better but had to max out fent. BP marginal but not requiring pressors. Still on 100%. Objective Vital Signs - 12hr 04/24/21 04/24/21 04/24/21 22:01 22:11 22:21 Temperature Pulse Rate 107 H 114 H 118 H Respiratory 25 H 28 H 28 H Rate Blood Pressure 116/65 116/65 116/65 O2 Sat by Pulse 94 92 92 Oximetry 04/24/21 04/24/21 04/24/21 22:31 22:41 22:47 Temperature Pulse Rate 115 H 141 H 137 H Respiratory 26 H 42 H 33 H Rate Blood Pressure 116/65 116/65 116/65 O2 Sat by Pulse 93 81 L 85 Oximetry 04/24/21 04/24/21 04/24/21 22:51 23:01 23:09 Temperature 97.1 F L Pulse Rate 140 H 144 H Respiratory 43 H 40 H Rate Blood Pressure 116/65 116/65 O2 Sat by Pulse 86 82 L Oximetry 04/24/21 04/24/21 04/24/21 23:11 23:21 23:31 Temperature Pulse Rate 132 H 122 H 117 H Respiratory 29 H 31 H 28 H Rate Blood Pressure 116/65 116/65 116/65 O2 Sat by Pulse 92 93 93 Oximetry 04/24/21 04/24/21 04/25/21 23:41 23:51 00:00 Temperature Pulse Rate 114 H 113 H 113 H Respiratory 25 H 24 23 Rate Blood Pressure 116/65 116/65 96/63 O2 Sat by Pulse 92 91 92 Oximetry 04/25/21 04/25/21 04/25/21 00:11 00:15 00:21 Temperature Pulse Rate 112 H 112 H 112 H Respiratory 21 22 Rate Blood Pressure 96/63 121/69 96/63 O2 Sat by Pulse 92 92 91 Oximetry 04/25/21 04/25/21 04/25/21 00:31 00:41 00:51 Temperature Pulse Rate 114 H 110 H 109 H Respiratory 21 20 20 Rate Blood Pressure 96/63 96/63 96/63 O2 Sat by Pulse 91 92 91 Oximetry 04/25/21 04/25/21 04/25/21 01:01 01:11 01:21 Temperature Pulse Rate 109 H 110 H 112 H Respiratory 23 20 22 Rate Blood Pressure 96/63 96/63 96/63 O2 Sat by Pulse 92 91 93 Oximetry 04/25/21 04/25/21 04/25/21 01:31 01:41 01:51 Temperature Pulse Rate 108 H 109 H 106 H Respiratory 19 21 19 Rate Blood Pressure 96/63 96/63 96/63 O2 Sat by Pulse 92 93 93 Oximetry 04/25/21 04/25/21 04/25/21 02:01 02:11 02:21 Temperature Pulse Rate 108 H 108 H 107 H Respiratory 22 20 22 Rate Blood Pressure 96/63 96/63 96/63 O2 Sat by Pulse 93 93 95 Oximetry 04/25/21 04/25/21 04/25/21 02:31 02:41 02:51 Temperature Pulse Rate 107 H 108 H 109 H Respiratory 21 22 21 Rate Blood Pressure 96/63 96/63 96/63 O2 Sat by Pulse 93 95 90 Oximetry 04/25/21 04/25/21 04/25/21 03:01 03:11 03:21 Temperature Pulse Rate 108 H 108 H 108 H Respiratory 22 20 21 Rate Blood Pressure 96/63 96/63 96/63 O2 Sat by Pulse 90 92 93 Oximetry 04/25/21 04/25/21 04/25/21 03:31 03:41 03:51 Temperature Pulse Rate 108 H 108 H 109 H Respiratory 23 24 23 Rate Blood Pressure 96/63 96/63 96/63 O2 Sat by Pulse 94 94 94 Oximetry 04/25/21 04/25/21 04/25/21 04:00 04:01 04:11 Temperature 100.6 F H Pulse Rate 110 H 131 H Respiratory 23 34 H Rate Blood Pressure 96/63 96/63 O2 Sat by Pulse 92 87 Oximetry 04/25/21 04/25/21 04/25/21 04:12 04:21 04:31 Temperature Pulse Rate 139 H 134 H 149 H Respiratory 44 H 32 H Rate Blood Pressure 163/83 96/63 96/63 O2 Sat by Pulse 88 85 80 L Oximetry 04/25/21 04/25/21 04/25/21 04:41 04:51 05:01 Temperature Pulse Rate 141 H 131 H 130 H Respiratory 30 H 30 H 26 H Rate Blood Pressure 96/63 96/63 96/63 O2 Sat by Pulse 82 L 84 85 Oximetry 04/25/21 04/25/21 04/25/21 05:11 05:21 05:31 Temperature Pulse Rate 142 H 145 H 153 H Respiratory 29 H 27 H 44 H Rate Blood Pressure 96/63 96/63 96/63 O2 Sat by Pulse 90 85 74 L Oximetry 04/25/21 04/25/21 04/25/21 05:41 05:51 06:01 Temperature Pulse Rate 149 H 144 H 150 H Respiratory 36 H 29 H 37 H Rate Blood Pressure 96/63 96/63 96/63 O2 Sat by Pulse 78 L 80 L 80 L Oximetry 04/25/21 04/25/21 08:00 08:19 Temperature 100 F H Pulse Rate 100 H Respiratory Rate Blood Pressure 86/53 O2 Sat by Pulse 94 Oximetry CBC and BMP: 04/24/21 10:00 04/25/21 07:42 ABG, PT/INR, D-dimer: ABG ABG pH 7.341 (7.320-7.450) 04/25/21 04:00 POC ABG pCO2 38.2 mmHg (32.0-48.0) 04/25/21 04:00 ABG pCO2 46.0 mm Hg 04/22/21 17:30 POC ABG pO2 48.5 mmHg (83-108) L 04/25/21 04:00 ABG pO2 99.6 mm Hg (80.0-90.0) H 04/22/21 17:30 POC ABG HCO3 20.2 04/25/21 04:00 ABG O2 Saturation 79.8 (0-100) 04/25/21 04:00 PT/INR, D-dimer PT 13.2 Sec. (12.2-14.9) 04/22/21 00:32 INR 0.95 (0.87-1.13) 04/22/21 00:32 D-Dimer 1522.26 ng/mlDDU (0-234) H 04/21/21 16:30 Abnormal lab findings: Abnormal Labs 04/21/21 04/21/21 04/21/21 14:40 15:42 16:30 RBC Hgb Hct RDW Lymph % (Auto) [place] % (Auto) Lymph # (Auto) Seg Neutrophils % Seg Neuts % (Manual) Lymphocytes % (Manual) Monocytes % (Manual) Lymphocytes # (Manual) D-Dimer 1522.26 H Heparin Anti-Xa Level ABG pH POC ABG pCO2 POC ABG pO2 45.5 L 69.9 L ABG pO2 ABG Hemoglobin ABG Oxyhemoglobin 78.6 L 90.2 L ABG Potassium ABG Chloride 111.0 H ABG Glucose 156 H 148 H Carboxyhemoglobin Sodium Potassium Chloride Carbon Dioxide BUN Creatinine Glucose POC Glucose Calcium Phosphorus Magnesium AST ALT Total Creatine Kinase CK-MB (CK-2) Troponin T Total Protein Albumin Triglycerides Cholesterol LDL Cholesterol Direct HDL Cholesterol Arterial Blood Glucose 156 H 148 H Arterial Blood Ionized Calcium 4.5 L Urine Creatinine Urine Total Protein 04/21/21 04/21/21 04/22/21 16:32 16:32 00:32 RBC 5.22 H Hgb 16.2 H 14.8 H Hct 48.6 H 44.4 H RDW 15.8 H Lymph % (Auto) [place] % (Auto) Lymph # (Auto) Seg Neutrophils % Seg Neuts % (Manual) 79.0 H Lymphocytes % (Manual) 13.0 L Monocytes % (Manual) 8.0 H Lymphocytes # (Manual) 1.1 L D-Dimer Heparin Anti-Xa Level ABG pH POC ABG pCO2 POC ABG pO2 ABG pO2 ABG Hemoglobin ABG Oxyhemoglobin ABG Potassium ABG Chloride ABG Glucose Carboxyhemoglobin Sodium Potassium Chloride Carbon Dioxide 21 L BUN 24 H Creatinine 1.3 H Glucose 130 H POC Glucose Calcium Phosphorus Magnesium AST 129 H ALT 61 H Total Creatine Kinase 3055 H CK-MB (CK-2) 22.4 H Troponin T 0.055 H Total Protein Albumin 3.6 L Triglycerides 235 H Cholesterol 220 H LDL Cholesterol Direct 142 H HDL Cholesterol 36 L Arterial Blood Glucose Arterial Blood Ionized Calcium Urine Creatinine Urine Total Protein 04/22/21 04/22/21 04/22/21 03:27 05:29 05:29 RBC Hgb 15.4 H Hct 45.8 H RDW 16.0 H Lymph % (Auto) 12.0 L [place] % (Auto) 8.0 H Lymph # (Auto) 1.1 L Seg Neutrophils % 76.3 H Seg Neuts % (Manual) Lymphocytes % (Manual) Monocytes % (Manual) Lymphocytes # (Manual) D-Dimer Heparin Anti-Xa Level ABG pH POC ABG pCO2 POC ABG pO2 ABG pO2 ABG Hemoglobin ABG Oxyhemoglobin ABG Potassium 4.7 H ABG Chloride 109.0 H ABG Glucose 155 H Carboxyhemoglobin 0.4 L Sodium Potassium 6.3 H* D Chloride Carbon Dioxide BUN 26 H Creatinine Glucose 134 H POC Glucose Calcium Phosphorus Magnesium AST 123 H ALT Total Creatine Kinase CK-MB (CK-2) Troponin T Total Protein Albumin 3.6 L Triglycerides Cholesterol LDL Cholesterol Direct HDL Cholesterol Arterial Blood Glucose 155 H Arterial Blood Ionized Calcium Urine Creatinine Urine Total Protein 04/22/21 04/22/21 04/22/21 13:03 13:25 17:30 RBC Hgb Hct RDW Lymph % (Auto) [place] % (Auto) Lymph # (Auto) Seg Neutrophils % Seg Neuts % (Manual) Lymphocytes % (Manual) Monocytes % (Manual) Lymphocytes # (Manual) D-Dimer Heparin Anti-Xa Level ABG pH 7.343 L POC ABG pCO2 POC ABG pO2 ABG pO2 99.6 H ABG Hemoglobin ABG Oxyhemoglobin ABG Potassium ABG Chloride ABG Glucose Carboxyhemoglobin Sodium Potassium Chloride Carbon Dioxide BUN Creatinine Glucose POC Glucose Calcium Phosphorus Magnesium AST ALT Total Creatine Kinase 2322 H CK-MB (CK-2) Troponin T Total Protein Albumin Triglycerides Cholesterol LDL Cholesterol Direct HDL Cholesterol Arterial Blood Glucose Arterial Blood Ionized Calcium Urine Creatinine 138.9 H Urine Total Protein 86 H 04/22/21 04/23/21 04/23/21 20:00 04:42 09:53 RBC Hgb Hct RDW Lymph % (Auto) [place] % (Auto) Lymph # (Auto) Seg Neutrophils % Seg Neuts % (Manual) Lymphocytes % (Manual) Monocytes % (Manual) Lymphocytes # (Manual) D-Dimer Heparin Anti-Xa Level 2.00 H < 0.10 L ABG pH POC ABG pCO2 POC ABG pO2 ABG pO2 ABG Hemoglobin ABG Oxyhemoglobin 83.2 L ABG Potassium ABG Chloride 113.0 H ABG Glucose 107 H Carboxyhemoglobin Sodium Potassium Chloride Carbon Dioxide BUN Creatinine Glucose POC Glucose Calcium Phosphorus Magnesium AST ALT Total Creatine Kinase CK-MB (CK-2) Troponin T Total Protein Albumin Triglycerides Cholesterol LDL Cholesterol Direct HDL Cholesterol Arterial Blood Glucose 107 H Arterial Blood Ionized Calcium Urine Creatinine Urine Total Protein 04/23/21 04/23/21 04/23/21 14:21 14:21 15:11 RBC Hgb Hct RDW 16.3 H Lymph % (Auto) [place] % (Auto) Lymph # (Auto) Seg Neutrophils % Seg Neuts % (Manual) Lymphocytes % (Manual) Monocytes % (Manual) Lymphocytes # (Manual) D-Dimer Heparin Anti-Xa Level ABG pH POC ABG pCO2 POC ABG pO2 68.6 L ABG pO2 ABG Hemoglobin ABG Oxyhemoglobin 91.3 L ABG Potassium ABG Chloride 113.0 H ABG Glucose 100 H Carboxyhemoglobin Sodium Potassium Chloride 113.1 H Carbon Dioxide 20 L BUN 18 H Creatinine Glucose POC Glucose Calcium 8.2 L Phosphorus Magnesium AST 59 H ALT Total Creatine Kinase 681 H CK-MB (CK-2) Troponin T Total Protein 5.5 L Albumin 2.3 L Triglycerides Cholesterol LDL Cholesterol Direct HDL Cholesterol Arterial Blood Glucose 100 H Arterial Blood Ionized Calcium Urine Creatinine Urine Total Protein 04/23/21 04/24/21 04/24/21 18:30 04:00 05:37 RBC Hgb Hct RDW Lymph % (Auto) [place] % (Auto) Lymph # (Auto) Seg Neutrophils % Seg Neuts % (Manual) Lymphocytes % (Manual) Monocytes % (Manual) Lymphocytes # (Manual) D-Dimer Heparin Anti-Xa Level 1.84 H ABG pH POC ABG pCO2 POC ABG pO2 51.9 L ABG pO2 ABG Hemoglobin ABG Oxyhemoglobin 84.9 L ABG Potassium ABG Chloride 112.0 H ABG Glucose 138 H Carboxyhemoglobin Sodium Potassium Chloride Carbon Dioxide BUN Creatinine Glucose POC Glucose 108 H Calcium Phosphorus Magnesium AST ALT Total Creatine Kinase CK-MB (CK-2) Troponin T Total Protein Albumin Triglycerides Cholesterol LDL Cholesterol Direct HDL Cholesterol Arterial Blood Glucose 138 H Arterial Blood Ionized Calcium Urine Creatinine Urine Total Protein 04/24/21 04/24/21 04/24/21 10:00 10:00 10:14 RBC Hgb Hct RDW 16.0 H Lymph % (Auto) [place] % (Auto) Lymph # (Auto) Seg Neutrophils % Seg Neuts % (Manual) Lymphocytes % (Manual) Monocytes % (Manual) Lymphocytes # (Manual) D-Dimer Heparin Anti-Xa Level 0.84 H ABG pH POC ABG pCO2 POC ABG pO2 ABG pO2 ABG Hemoglobin ABG Oxyhemoglobin ABG Potassium ABG Chloride ABG Glucose Carboxyhemoglobin Sodium Potassium Chloride 109.9 H Carbon Dioxide BUN Creatinine Glucose 118 H POC Glucose Calcium Phosphorus 2.00 L Magnesium 2.40 H AST 59 H ALT Total Creatine Kinase 396 H CK-MB (CK-2) Troponin T Total Protein 5.5 L Albumin 2.4 L Triglycerides Cholesterol LDL Cholesterol Direct HDL Cholesterol Arterial Blood Glucose Arterial Blood Ionized Calcium Urine Creatinine Urine Total Protein 04/24/21 04/24/21 04/24/21 11:14 12:00 15:23 RBC Hgb Hct RDW Lymph % (Auto) [place] % (Auto) Lymph # (Auto) Seg Neutrophils % Seg Neuts % (Manual) Lymphocytes % (Manual) Monocytes % (Manual) Lymphocytes # (Manual) D-Dimer Heparin Anti-Xa Level ABG pH 7.287 L POC ABG pCO2 54.3 H POC ABG pO2 58.2 L 67.5 L ABG pO2 ABG Hemoglobin ABG Oxyhemoglobin 88.3 L 89.9 L ABG Potassium ABG Chloride 111.0 H 110.0 H ABG Glucose 117 H 126 H Carboxyhemoglobin 0.3 L Sodium Potassium Chloride Carbon Dioxide BUN Creatinine Glucose POC Glucose 112 H Calcium Phosphorus Magnesium AST ALT Total Creatine Kinase CK-MB (CK-2) Troponin T Total Protein Albumin Triglycerides Cholesterol LDL Cholesterol Direct HDL Cholesterol Arterial Blood Glucose 117 H 126 H Arterial Blood Ionized Calcium Urine Creatinine Urine Total Protein 04/24/21 04/24/21 04/24/21 17:58 18:00 22:56 RBC Hgb Hct RDW Lymph % (Auto) [place] % (Auto) Lymph # (Auto) Seg Neutrophils % Seg Neuts % (Manual) Lymphocytes % (Manual) Monocytes % (Manual) Lymphocytes # (Manual) D-Dimer Heparin Anti-Xa Level ABG pH POC ABG pCO2 POC ABG pO2 53.3 L ABG pO2 ABG Hemoglobin ABG Oxyhemoglobin 86.2 L ABG Potassium ABG Chloride 111.0 H ABG Glucose 115 H Carboxyhemoglobin 0.4 L Sodium Potassium Chloride Carbon Dioxide BUN Creatinine Glucose POC Glucose 106 H 131 H Calcium Phosphorus Magnesium AST ALT Total Creatine Kinase CK-MB (CK-2) Troponin T Total Protein Albumin Triglycerides Cholesterol LDL Cholesterol Direct HDL Cholesterol Arterial Blood Glucose 115 H Arterial Blood Ionized Calcium Urine Creatinine Urine Total Protein 04/25/21 04/25/21 04:00 07:42 RBC Hgb Hct RDW Lymph % (Auto) [place] % (Auto) Lymph # (Auto) Seg Neutrophils % Seg Neuts % (Manual) Lymphocytes % (Manual) Monocytes % (Manual) Lymphocytes # (Manual) D-Dimer Heparin Anti-Xa Level ABG pH POC ABG pCO2 POC ABG pO2 48.5 L ABG pO2 ABG Hemoglobin 10.6 L ABG Oxyhemoglobin 79.4 L ABG Potassium ABG Chloride 111.0 H ABG Glucose 115 H Carboxyhemoglobin 0.2 L Sodium 146 H Potassium Chloride 111.3 H Carbon Dioxide BUN Creatinine Glucose 128 H POC Glucose Calcium Phosphorus Magnesium AST ALT Total Creatine Kinase CK-MB (CK-2) Troponin T Total Protein Albumin Triglycerides Cholesterol LDL Cholesterol Direct HDL Cholesterol Arterial Blood Glucose 115 H Arterial Blood Ionized Calcium Urine Creatinine Urine Total Protein
[2021-04-25] MEDS: methylPREDNISolone Sod Suc 1,000 MG in SODIUM CHLORIDE 0.9% 250ML 250 ML IV SCH (11:30)
--- NOTE | 2021-04-25 12:47 | Progress Note ---
Assessment and Plan Assessment and plan: Per ER... 04-21 The patient is a 66-year-old female present with a chief complaint of altered mental status. Per EMS the patient has a history of previous CVA with left- sided weakness. Family reported that the patient developed increased left-sided weakness 3 days ago. The patient was taken to the emergency department but refused to be seen so family brought the patient back home. The following day the patient "stopped speaking" and family eventually brought the patient into the ED today as there was no improvement. Patient opens her eyes to sternal rub and answers some questions but appears confused. First oxygen saturation in ER was 69%. Pt intubated for airway protection and hypoxia believed to be due to unprotected airway post seizure. Pt was ER hold and arrived to ICU overnight PMH HTN HLD CVA 2 Y AGO with left sided residual weakness NOK daughter (see previous encounter note 07/2019) NEURO hx CVA with l sided weakness; new onset sz new onset sz UDS neg on admit CK elevated- Cr elevated had been getting IVF but due to hypoxia the IVF were d/c by Dr Arrington neuro following LUE with spasticity and contraction of l hand; noted pt flexing legs; PERRL; no commands CT head on admit- IMPRESSION: Encephalomalacia in the right temporal lobe, frontal lobe; no acute/subacute parenchymal lesions MRI today- Encephalomalacia in the right cerebral hemisphere - see report on keppra fentanyl for sedation daily SAT family updated on plan of care case management following CV: hx htn on norvasc at home per EMR asa/statin echo 04/22 see report SR-ST no pressors RESP acute resp failure with PE on CTA intubated in ER; remains ventilated see EMR for titration CT noted - a/c lung disease evident with LPA PE's noted remains hypoxic but with some improvement covid pending US BLE today - report pending chest xray no focal consolidation GI -nap TF nutrition following PPI bowel reg -LIZBETH/rhabdo sp sz [place] strict I/O pt net pos 1.4 L over the last 24 hours trend and replace electrolytes as needed trend BUN/CR/CK nephrology following IVF d/c per Dr Arrington due volume contributing to hypoxia HEME- PE VTE on hep for PE heparin drip for known PE trending coags/Xa trend CBC no bleeding on exam LE dopplers completed- results pending AM labs resulted "TNR"- resent at 1430 AM labs ordered for 04/24 ID- nap covid pending follow cultures 04/21 sputum culture afebrile no antibiotics at this time are indicated continue to trend temp and WBC curve ENDO stress hyperglycemia blood glucose monitoring avoid hypoglycemia 04/24: Patient still unresponsive, Critical care team input noted. awaiting further input from Neurology. 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 Continues on steroids pulse dose. poor prognosis. May need neurology RE- evaluation if continues same. The high probability of a clinically significant, sudden or life threatening deterioration of the [multiple organ] system(s) required my full and direct attention, intervention and personal management. The aggregate critical care time was [35] minutes. This time is in addition to time spent performing reported procedures but includes the following: [x] Data Review and interpretation [x] Patient assessment and monitoring of vital signs [x] Documentation [x] Medication orders and management History Interval history: Patient seen and examined, remains sedated. good urine output per nursing staff, gets agitated when off sedation Hospitalist Physical - Physical exam Narrative exam: General appearance: Present: no acute distress, well-nourished, other (Sedated on vent) - EENT Eyes: Present: PERRL ENT: clear oral mucosa - Neck Neck: Present: supple - Respiratory Respiratory effort: normal - Cardiovascular Rhythm: regular Heart Sounds: Present: S1 & S2 - Extremities Extremities: no ischemia Peripheral Pulses: within normal limits - Abdominal General gastrointestinal: soft - Integumentary Integumentary: Present: clear, warm, dry - Psychiatric Psychiatric: other - Neurologic Neurologic: other (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) - Constitutional Vitals: Temp Pulse Resp BP Pulse Ox 98 F 90 20 87/57 91 04/25/21 12:00 04/25/21 11:45 04/25/21 11:10 04/25/21 11:45 04/25/21 11:45 General appearance: Present: no acute distress, well-nourished, other (Sedated on vent) HEART Score - HEART Score Age: 45-65 Risk factors: 1-2 risk factors Troponin: Troponin T 0.055 ng/mL (0.00-0.029) H 04/21/21 16:32 - Critical Actions Critical Actions: 0-3 pts:0.9-1.7%risk of adverse cardiac event.Candidate for discharge Results - Labs CBC & Chem 7: 04/26/21 06:13 04/25/21 07:42 Labs: Laboratory Last Values WBC 7.8 K/mm3 (4.5-11.0) 04/24/21 10:00 RBC 3.84 M/mm3 (3.65-5.03) 04/24/21 10:00 Hgb 11.8 gm/dl (10.1-14.3) 04/24/21 10:00 Hct 36.3 % (30.3-42.9) 04/24/21 10:00 MCV 95 fl (79-97) 04/24/21 10:00 MCH 31 pg (28-32) 04/24/21 10:00 MCHC 32 % (30-34) 04/24/21 10:00 RDW 16.0 % (13.2-15.2) H 04/24/21 10:00 Plt Count 238 K/mm3 (140-440) 04/24/21 10:00 Lymph % (Auto) 12.0 % (13.4-35.0) L 04/22/21 05:29 [place] % (Auto) 8.0 % (0.0-7.3) H 04/22/21 05:29 Eos % (Auto) 3.0 % (0.0-4.3) 04/22/21 05:29 Baso % (Auto) 0.7 % (0.0-1.8) 04/22/21 05:29 Lymph # (Auto) 1.1 K/mm3 (1.2-5.4) L 04/22/21 05:29 [place] # (Auto) 0.7 K/mm3 (0.0-0.8) 04/22/21 05:29 Eos # (Auto) 0.3 K/mm3 (0.0-0.4) 04/22/21 05:29 Baso # (Auto) 0.1 K/mm3 (0.0-0.1) 04/22/21 05:29 Add Manual Diff Complete 04/21/21 16:32 Total Counted 100 04/21/21 16:32 Seg Neutrophils % 76.3 % (40.0-70.0) H 04/22/21 05:29 Seg Neuts % (Manual) 79.0 % (40.0-70.0) H 04/21/21 16:32 Lymphocytes % (Manual) 13.0 % (13.4-35.0) L 04/21/21 16:32 Monocytes % (Manual) 8.0 % (0.0-7.3) H 04/21/21 16:32 Nucleated RBC % Not Reportable 04/21/21 16:32 Seg Neutrophils # 6.7 K/mm3 (1.8-7.7) 04/22/21 05:29 Seg Neutrophils # Man 6.6 K/mm3 (1.8-7.7) 04/21/21 16:32 Band Neutrophils # 0.0 K/mm3 04/21/21 16:32 Lymphocytes # (Manual) 1.1 K/mm3 (1.2-5.4) L 04/21/21 16:32 Abs React Lymphs (Man) 0.0 K/mm3 04/21/21 16:32 Monocytes # (Manual) 0.7 K/mm3 (0.0-0.8) 04/21/21 16:32 Eosinophils # (Manual) 0.0 K/mm3 (0.0-0.4) 04/21/21 16:32 Basophils # (Manual) 0.0 K/mm3 (0.0-0.1) 04/21/21 16:32 Metamyelocytes # 0.0 K/mm3 04/21/21 16:32 Myelocytes # 0.0 K/mm3 04/21/21 16:32 Promyelocytes # 0.0 K/mm3 04/21/21 16:32 Blast Cells # 0.0 K/mm3 04/21/21 16:32 WBC Morphology Not Reportable 04/21/21 16:32 Hypersegmented Neuts Not Reportable 04/21/21 16:32 Hyposegmented Neuts Not Reportable 04/21/21 16:32 Hypogranular Neuts Not Reportable 04/21/21 16:32 Smudge Cells Not Reportable 04/21/21 16:32 Toxic Granulation Not Reportable 04/21/21 16:32 Toxic Vacuolation Not Reportable 04/21/21 16:32 Dohle Bodies Not Reportable 04/21/21 16:32 Pelger-Huet Anomaly Not Reportable 04/21/21 16:32 Brenda Rods Not Reportable 04/21/21 16:32 Platelet Estimate Consistent w auto 04/21/21 16:32 Clumped Platelets Not Reportable 04/21/21 16:32 Plt Clumps, EDTA Not Reportable 04/21/21 16:32 Large Platelets Not Reportable 04/21/21 16:32 Giant Platelets Not Reportable 04/21/21 16:32 Platelet Satelliting Not Reportable 04/21/21 16:32 Plt Morphology Comment Not Reportable 04/21/21 16:32 RBC Morphology Not Reportable 04/21/21 16:32 Dimorphic RBCs Not Reportable 04/21/21 16:32 Polychromasia Not Reportable 04/21/21 16:32 Hypochromasia Not Reportable 04/21/21 16:32 Poikilocytosis Not Reportable 04/21/21 16:32 Anisocytosis 1+ 04/21/21 16:32 Microcytosis Not Reportable 04/21/21 16:32 Macrocytosis Not Reportable 04/21/21 16:32 Spherocytes Not Reportable 04/21/21 16:32 Pappenheimer Bodies Not Reportable 04/21/21 16:32 Sickle Cells Not Reportable 04/21/21 16:32 Target Cells Not Reportable 04/21/21 16:32 Tear Drop Cells Not Reportable 04/21/21 16:32 Ovalocytes Not Reportable 04/21/21 16:32 Helmet Cells Not Reportable 04/21/21 16:32 [place] Bodies Not Reportable 04/21/21 16:32 [place] Rings Not Reportable 04/21/21 16:32 [place] Cells Not Reportable 04/21/21 16:32 Bite Cells Not Reportable 04/21/21 16:32 Crenated Cell Not Reportable 04/21/21 16:32 Elliptocytes Not Reportable 04/21/21 16:32 Acanthocytes (Spur) Not Reportable 04/21/21 16:32 Rouleaux Not Reportable 04/21/21 16:32 Hemoglobin C Crystals Not Reportable 04/21/21 16:32 Schistocytes Not Reportable 04/21/21 16:32 Malaria parasites Not Reportable 04/21/21 16:32 Uli Bodies Not Reportable 04/21/21 16:32 Hem Pathologist Commnt No 04/21/21 16:32 PT 13.2 Sec. (12.2-14.9) 04/22/21 00:32 INR 0.95 (0.87-1.13) 04/22/21 00:32 APTT 29.2 Sec. (24.2-36.6) 04/22/21 00:32 D-Dimer 1522.26 ng/mlDDU (0-234) H 04/21/21 16:30 Heparin Anti-Xa Level 0.84 U.I./ml (0.3-0.7) H 04/24/21 10:14 ABG pH 7.372 (7.320-7.450) 04/25/21 10:50 POC ABG pCO2 42.8 mmHg (32.0-48.0) 04/25/21 10:50 ABG pCO2 46.0 mm Hg 04/22/21 17:30 POC ABG pO2 56.5 mmHg (83-108) L 04/25/21 10:50 ABG pO2 99.6 mm Hg (80.0-90.0) H 04/22/21 17:30 POC ABG HCO3 24.3 04/25/21 10:50 ABG HCO3 24.4 mmol/L (20.0-26.0) 04/22/21 17:30 ABG O2 Saturation 87.6 (0-100) 04/25/21 10:50 ABG O2 Content 19.9 (0.0-44) 04/22/21 17:30 POC ABG Base Excess -1.0 04/25/21 10:50 ABG Base Excess -1.6 mmol/L (-2.0-3.0) 04/22/21 17:30 ABG Hemoglobin 10.4 (12.0-17.5) L 04/25/21 10:50 ABG Oxyhemoglobin 86.8 (94-98) L 04/25/21 10:50 ABG Carboxyhemoglobin 0.9 % (0.0-5.0) 04/22/21 17:30 ABG Methemoglobin 0.3 (0.0-1.5) 04/25/21 10:50 ABG Sodium 143.0 mmol/L (136.0-145.0) 04/25/21 10:50 ABG Potassium 3.9 mmol/L (3.40-4.50) 04/25/21 10:50 ABG Chloride 112.0 mmol/L (98-107) H 04/25/21 10:50 ABG Glucose 124 mg/dL (65-95) H 04/25/21 10:50 Oxyhemoglobin 95.9 % (95.0-99.0) 04/22/21 17:30 Carboxyhemoglobin 0.6 (0.5-1.5) 04/25/21 10:50 FiO2 100 % 04/22/21 17:30 FiO2 % 100.0 04/25/21 10:50 Sodium 146 mmol/L (137-145) H 04/25/21 07:42 Potassium 4.0 mmol/L (3.6-5.0) 04/25/21 07:42 Chloride 111.3 mmol/L (98-107) H 04/25/21 07:42 Carbon Dioxide 27 mmol/L (22-30) 04/25/21 07:42 Anion Gap 12 mmol/L 04/25/21 07:42 BUN 14 mg/dL (7-17) 04/25/21 07:42 Creatinine 0.9 mg/dL (0.6-1.2) 04/25/21 07:42 Estimated GFR > 60 ml/min 04/25/21 07:42 BUN/Creatinine Ratio 16 % 04/25/21 07:42 Glucose 128 mg/dL (65-100) H 04/25/21 07:42 POC Glucose 136 mg/dL (70-105) H 04/25/21 11:12 Calcium 9.2 mg/dL (8.4-10.2) 04/25/21 07:42 Phosphorus 2.90 mg/dL (2.5-4.5) D 04/25/21 07:42 Magnesium 2.40 mg/dL (1.7-2.3) H 04/24/21 10:00 Total Bilirubin 0.40 mg/dL (0.1-1.2) 04/24/21 10:00 AST 59 units/L (5-40) H 04/24/21 10:00 ALT 30 units/L (7-56) 04/24/21 10:00 Alkaline Phosphatase 83 units/L (35-129) 04/24/21 10:00 Ammonia 56.0 umol/L (25-60) 04/21/21 16:32 Total Creatine Kinase 396 units/L (30-135) H 04/24/21 10:00 CK-MB (CK-2) 22.4 ng/mL (0.0-4.0) H 04/21/21 16:32 CK-MB (CK-2) Rel Index 0.7 (0-4) 04/21/21 16:32 Troponin T 0.055 ng/mL (0.00-0.029) H 04/21/21 16:32 Total Protein 5.5 g/dL (6.3-8.2) L 04/24/21 10:00 Albumin 2.4 g/dL (3.9-5) L 04/24/21 10:00 Albumin/Globulin Ratio 0.8 % 04/24/21 10:00 Triglycerides 235 mg/dL (2-149) H 04/21/21 16:32 Cholesterol 220 mg/dL (50-199) H 04/21/21 16:32 LDL Cholesterol Direct 142 mg/dL (50-130) H 04/21/21 16:32 HDL Cholesterol 36 mg/dL (40-59) L 04/21/21 16:32 Cholesterol/HDL Ratio 6.11 % 04/21/21 16:32 TSH 0.876 mlU/mL (0.270-4.200) 04/21/21 16:32 Free T4 1.05 ng/dL (0.76-1.46) 04/21/21 16:32 Arterial Blood Glucose 124 mg/dL (65-95) H 04/25/21 10:50 Arterial Blood Ionized Calcium 4.8 mg/dL (4.6-5.3) 04/25/21 10:50 Urine Color Yellow (Yellow) 04/21/21 Unknown Urine Turbidity Clear (Clear) 04/21/21 Unknown Urine pH 5.0 (5.0-7.0) 04/21/21 Unknown Ur Specific [place] 1.014 (1.003-1.030) 04/21/21 Unknown Urine Protein 100 mg/dl mg/dL (Negative) 04/21/21 Unknown Urine Glucose (UA) Neg mg/dL (Negative) 04/21/21 Unknown Urine Ketones Tr mg/dL (Negative) 04/21/21 Unknown Urine Blood Lg (Negative) 04/21/21 Unknown Urine Nitrite Neg (Negative) 04/21/21 Unknown Urine Bilirubin Neg (Negative) 04/21/21 Unknown Urine Urobilinogen 2.0 mg/dL (<2.0) 04/21/21 Unknown Ur Leukocyte Esterase Neg (Negative) 04/21/21 Unknown Urine WBC (Auto) 5.0 /HPF (0.0-6.0) 04/21/21 Unknown Urine RBC (Auto) 1.0 /HPF (0.0-6.0) 04/21/21 Unknown U Epithel Cells (Auto) 1.0 /HPF (0-13.0) 04/21/21 Unknown Urine Mucus Few /HPF 04/21/21 Unknown Urine Creatinine 138.9 mg/dL (0.1-20.0) H 04/22/21 13:03 Urine Total Protein 86 mg/dL (5-11.8) H 04/22/21 13:03 Urine Opiates Screen Negative 04/21/21 Unknown Urine Methadone Screen Negative 04/21/21 Unknown Ur Barbiturates Screen Negative 04/21/21 Unknown Ur Phencyclidine Scrn Negative 04/21/21 Unknown Ur Amphetamines Screen Negative 04/21/21 Unknown U Benzodiazepines Scrn Negative 04/21/21 Unknown Urine Cocaine Screen Negative 04/21/21 Unknown U Marijuana (THC) Screen Negative 04/21/21 Unknown Drugs of Abuse Note Disclamer 04/21/21 Unknown Plasma/Serum Alcohol < 0.01 % (0-0.07) 04/21/21 16:32 Coronavirus (PCR) Negative (Negative) 04/23/21 Unknown [place]/IV: Voiding Method Indwelling Catheter Active Medications - Current Medications Current Medications: Generic Name Dose Route Start Last Admin Trade Name Freq PRN Reason Stop Dose Admin Acetaminophen 650 mg 04/21/21 21:11 Acetaminophen 325 Mg Tab PO Q4H PRN Pain MILD(1-3)/Fever >100.5/DICKINSON Lipase/Protease/Amylase 1 each 04/22/21 10:51 Lipase 10,500/Protease 25,000/Amylase 43,750 (Units) Dr Ryan FEEDTUBE PRN PRN For Clogged Feeding Tube Enoxaparin Sodium 80 mg 04/24/21 14:00 04/25/21 05:25 Enoxaparin 80 Mg/0.8 Ml Inj SUB-Q 80 mg Q12H MINOR Administration Famotidine 20 mg 04/24/21 10:00 04/25/21 09:20 Famotidine 20 Mg Tab PO 20 mg BID MINOR Administration Hydrophilic Ointment 1 applic 04/21/21 15:46 Lip Therapy Vaseline TP Q2HR PRN Dry Lips Fentanyl Citrate 2,000 mcg in 100 mls @ 3.515 mls/hr 04/21/21 16:00 04/25/21 09:19 Fentanyl Drip Premix IV 4 mcg/kg/hr TITR MINOR 14.061 mls/hr Administration Protocol 1 MCG/KG/HR Dexmedetomidine HCl 400 mcg/ 104 mls @ 4.144 mls/hr 04/25/21 06:00 04/25/21 06:12 Sodium Chloride IV 0.2 mcg/kg/hr TITRATE MINOR 4.144 mls/hr Administration Protocol 0.2 MCG/KG/HR Methylprednisolone Sodium 250 mls @ 250 mls/hr 04/25/21 11:00 04/25/21 11:30 Succinate 1,000 mg/ Sodium IV 04/27/21 11:59 250 mls/hr Chloride Q24H MINOR Administration Levetiracetam 750 mg 04/25/21 10:00 04/25/21 09:20 Levetiracetam 500 Mg/5 Ml Oral Liqd PO 750 mg BID MINOR Administration Methylprednisolone Sodium Succinate 60 mg 04/28/21 06:00 Methylprednisolone Sod Succinate 40 Mg/1 Ml Inj IV Q6H MINOR Multi-Ingred Cream/Lotion/Oil/Oint 1 applic 04/21/21 15:46 Mineral Oil/Petrolatum, White Ophth Oint 3.5 Gm OU Q4HR PRN Dry Eye(s) Potassium Phos/Sodium Phos 1 each 04/24/21 14:00 04/25/21 09:20 Phos-Nak Powder Packet PO 04/26/21 08:01 1 each Q6H MINOR Administration Senna/Docusate Sodium 1 tab 04/21/21 22:00 04/25/21 09:20 Sennosides/Docusate Sodium 8.6/50 Mg Tab FEEDTUBE 1 tab BID MINOR Administration Simple Syrup 15 ml 04/22/21 10:51 Simple Syrup 15 Ml FEEDTUBE PRN PRN Hypoglycemia Simple Syrup 30 ml 04/22/21 10:51 Simple Syrup 15 Ml FEEDTUBE PRN PRN Hypoglycemia Sodium Bicarbonate 325 mg 04/22/21 10:51 Sodium Bicarbonate 325 Mg Tab FEEDTUBE PRN PRN For Clogged Feeding Tube Sodium Chloride 10 ml 04/21/21 22:00 04/25/21 09:20 Sodium Chloride 0.9% 10 Ml Flush Syringe IV 10 ml BID MINOR Administration Sodium Chloride 10 ml 04/21/21 21:11 Sodium Chloride 0.9% 10 Ml Flush Syringe IV PRN PRN LINE FLUSH Nutrition/Malnutrition Assess - Dietary Evaluation Nutrition/Malnutrition Findings: Nutrition Notes Start: 04/22/21 10:45 Freq: Status: Active Protocol: Document 04/24/21 14:58 NHALL (Rec: 04/24/21 15:04 NHALL [email or web address]) Nutrition Notes Initial or Follow up Reassessment Current Diagnosis Acute Kidney Injury, Hypertension,Stroke, Hyperlipidemia Other Pertinent Diagnosis New onset seizures, AMS, pulmonary embolism Current Diet TF - Nepro 35ml/hr Labs/Tests reviewed Pertinent Medications reviewed Height 5 ft 9 in Weight 79.7 kg [place] Body Weight (kg) 65.90 BMI 25.9 Weight change and time frame wt change noted Weight Status Appropriate Subjective/Other Information Per RN, pt tolerating TF at goal rate. Pt remains on vent support. Percent of energy/protein needs met: 89% energy 71% pro Burn Absent Trauma Absent #1 Nutrition Diagnosis Inadequate oral intake Diagnosis Progress(for reassessment Continues documentation) Is patient on ventilator? Yes Is Patient Ambulatory and/or Out of Bed No REE-([place]-St. Jeor-confined to bed) 2726.840 Calculation Used for Recommendations [place]-St Jeor Additional Notes Pro needs 1.2-2g/k-159g/ day Fluid needs 1ml/kcal Nutrition Intervention Nutrition Support: Continue Nepro at 35ml/hr with 150ml water flush q4h. Kcal 1,512 Protein (gm) 68 Carbohydrates (gm) 135 Fat (gm) 81 Fluid (mL) 611 Fiber (gm) 11 Goal #1 TF tolerance Goal #2 TF to meet at least 75% energy and pro needs Follow-Up By: 05/01/21 Additional Comments F/U: stable TF, vent status, wt
[2021-04-26] MEDS: ENOXAPARIN 80 MG/0.8 ML INJ SUB-Q SCH ×2 (02:15→14:02)
[2021-04-26] MEDS: FREE WATER PO SCH ×6 (02:16→23:00)
[2021-04-26] MEDS: PHOS-NAK POWDER PACKET PO SCH ×2 (02:22→09:34)
[2021-04-26] MEDS: fentaNYL DRIP Premix 2,000 MCG/100 ML BAG IV SCH ×4 (03:48→20:49)
[2021-04-26] MEDS ORDERED: ONDANSETRON 4 MG/2 ML INJ IV PRN (06:15)
[2021-04-26 06:21] LABS: Hematocrit 33.2 % (30.3-42.9); Hemoglobin 10.4 gm/dl (10.1-14.3)
--- NOTE | 2021-04-26 07:31 | Progress Note ---
Assessment and Plan Assessment and plan: Per ER... 04-21 The patient is a 66-year-old female present with a chief complaint of altered mental status. Per EMS the patient has a history of previous CVA with left- sided weakness. Family reported that the patient developed increased left-sided weakness 3 days ago. The patient was taken to the emergency department but refused to be seen so family brought the patient back home. The following day the patient "stopped speaking" and family eventually brought the patient into the ED today as there was no improvement. Patient opens her eyes to sternal rub and answers some questions but appears confused. First oxygen saturation in ER was 69%. Pt intubated for airway protection and hypoxia believed to be due to unprotected airway post seizure. Pt was ER hold and arrived to ICU overnight PMH HTN HLD CVA 2 Y AGO with left sided residual weakness NOK daughter (see previous encounter note 07/2019) NEURO hx CVA with l sided weakness; new onset sz new onset sz UDS neg on admit CK elevated- Cr elevated had been getting IVF but due to hypoxia the IVF were d/c by Dr Arrington neuro following LUE with spasticity and contraction of l hand; noted pt flexing legs; PERRL; no commands CT head on admit- IMPRESSION: Encephalomalacia in the right temporal lobe, frontal lobe; no acute/subacute parenchymal lesions MRI today- Encephalomalacia in the right cerebral hemisphere - see report on keppra fentanyl for sedation daily SAT family updated on plan of care case management following CV: hx htn on norvasc at home per EMR asa/statin echo 04/22 see report SR-ST no pressors RESP acute resp failure with PE on CTA intubated in ER; remains ventilated see EMR for titration CT noted - a/c lung disease evident with LPA PE's noted remains hypoxic but with some improvement covid pending US BLE today - report pending chest xray no focal consolidation GI -nap TF nutrition following PPI bowel reg -LIZBETH/rhabdo sp sz corral strict I/O pt net pos 1.4 L over the last 24 hours trend and replace electrolytes as needed trend BUN/CR/CK nephrology following IVF d/c per Dr Arrington due volume contributing to hypoxia HEME- PE VTE on hep for PE heparin drip for known PE trending coags/Xa trend CBC no bleeding on exam LE dopplers completed- results pending AM labs resulted "TNR"- resent at 1430 AM labs ordered for 04/24 ID- nap covid pending follow cultures 04/21 sputum culture afebrile no antibiotics at this time are indicated continue to trend temp and WBC curve Tobacco use disorder ENDO stress hyperglycemia blood glucose monitoring avoid hypoglycemia 04/24: Patient still unresponsive, Critical care team input noted. awaiting further input from Neurology. vent management per critical care team 04/25: Continue supportive care, wean as tolerated, remains hypoxic, vent changes per Technology Rec[employer]iter. Continues on steroids pulse dose. poor prognosis. May need neurology RE- evaluation if continues same. 04/26: Continue supportive care, steroids and aerosol management per Pulmonary restraints for support. reconsulting Neurologist The high probability of a clinically significant, sudden or life threatening deterioration of the [multiple organ] system(s) required my full and direct attention, intervention and personal management. The aggregate critical care time was [35] minutes. This time is in addition to time spent performing reported procedures but includes the following: [x] Data Review and interpretation [x] Patient assessment and monitoring of vital signs [x] Documentation [x] Medication orders and management History Interval history: Patient seen and examined, remains sedated, agitated, trying to get out of bed, not following commands. Hospitalist Physical - Physical exam Narrative exam: General appearance: Present: no acute distress, well-nourished, agitated, other (Sedated on vent) - EENT Eyes: Present: PERRL ENT: clear oral mucosa - Neck Neck: Present: supple - Respiratory Respiratory effort: normal - Cardiovascular Rhythm: regular Heart Sounds: Present: S1 & S2 - Extremities Extremities: no ischemia Peripheral Pulses: within normal limits - Abdominal General gastrointestinal: soft - Integumentary Integumentary: Present: clear, warm, dry - Psychiatric Psychiatric: other - Neurologic Neurologic: other (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) - Constitutional Vitals: Temp Pulse Resp BP Pulse Ox 98.7 F 108 H 20 111/68 79 L 04/26/21 03:34 04/26/21 06:20 04/26/21 06:00 04/26/21 06:20 04/26/21 06:20 General appearance: Present: no acute distress, well-nourished, other (Sedated on vent) HEART Score - HEART Score Age: 45-65 Risk factors: 1-2 risk factors Troponin: Troponin T 0.055 ng/mL (0.00-0.029) H 04/21/21 16:32 - Critical Actions Critical Actions: 0-3 pts:0.9-1.7%risk of adverse cardiac event.Candidate for discharge Results - Labs CBC & Chem 7: 04/26/21 06:13 04/25/21 07:42 Labs: Laboratory Last Values WBC 7.8 K/mm3 (4.5-11.0) 04/24/21 10:00 RBC 3.84 M/mm3 (3.65-5.03) 04/24/21 10:00 Hgb 10.4 gm/dl (10.1-14.3) 04/26/21 06:13 Hct 33.2 % (30.3-42.9) 04/26/21 06:13 MCV 95 fl (79-97) 04/24/21 10:00 MCH 31 pg (28-32) 04/24/21 10:00 MCHC 32 % (30-34) 04/24/21 10:00 RDW 16.0 % (13.2-15.2) H 04/24/21 10:00 Plt Count 285 K/mm3 (140-440) 04/26/21 06:13 Lymph % (Auto) 12.0 % (13.4-35.0) L 04/22/21 05:29 [place] % (Auto) 8.0 % (0.0-7.3) H 04/22/21 05:29 Eos % (Auto) 3.0 % (0.0-4.3) 04/22/21 05:29 Baso % (Auto) 0.7 % (0.0-1.8) 04/22/21 05:29 Lymph # (Auto) 1.1 K/mm3 (1.2-5.4) L 04/22/21 05:29 [place] # (Auto) 0.7 K/mm3 (0.0-0.8) 04/22/21 05:29 Eos # (Auto) 0.3 K/mm3 (0.0-0.4) 04/22/21 05:29 Baso # (Auto) 0.1 K/mm3 (0.0-0.1) 04/22/21 05:29 Add Manual Diff Complete 04/21/21 16:32 Total Counted 100 04/21/21 16:32 Seg Neutrophils % 76.3 % (40.0-70.0) H 04/22/21 05:29 Seg Neuts % (Manual) 79.0 % (40.0-70.0) H 04/21/21 16:32 Lymphocytes % (Manual) 13.0 % (13.4-35.0) L 04/21/21 16:32 Monocytes % (Manual) 8.0 % (0.0-7.3) H 04/21/21 16:32 Nucleated RBC % Not Reportable 04/21/21 16:32 Seg Neutrophils # 6.7 K/mm3 (1.8-7.7) 04/22/21 05:29 Seg Neutrophils # Man 6.6 K/mm3 (1.8-7.7) 04/21/21 16:32 Band Neutrophils # 0.0 K/mm3 04/21/21 16:32 Lymphocytes # (Manual) 1.1 K/mm3 (1.2-5.4) L 04/21/21 16:32 Abs React Lymphs (Man) 0.0 K/mm3 04/21/21 16:32 Monocytes # (Manual) 0.7 K/mm3 (0.0-0.8) 04/21/21 16:32 Eosinophils # (Manual) 0.0 K/mm3 (0.0-0.4) 04/21/21 16:32 Basophils # (Manual) 0.0 K/mm3 (0.0-0.1) 04/21/21 16:32 Metamyelocytes # 0.0 K/mm3 04/21/21 16:32 Myelocytes # 0.0 K/mm3 04/21/21 16:32 Promyelocytes # 0.0 K/mm3 04/21/21 16:32 Blast Cells # 0.0 K/mm3 04/21/21 16:32 WBC Morphology Not Reportable 04/21/21 16:32 Hypersegmented Neuts Not Reportable 04/21/21 16:32 Hyposegmented Neuts Not Reportable 04/21/21 16:32 Hypogranular Neuts Not Reportable 04/21/21 16:32 Smudge Cells Not Reportable 04/21/21 16:32 Toxic Granulation Not Reportable 04/21/21 16:32 Toxic Vacuolation Not Reportable 04/21/21 16:32 Dohle Bodies Not Reportable 04/21/21 16:32 Pelger-Huet Anomaly Not Reportable 04/21/21 16:32 Brenda Rods Not Reportable 04/21/21 16:32 Platelet Estimate Consistent w auto 04/21/21 16:32 Clumped Platelets Not Reportable 04/21/21 16:32 Plt Clumps, EDTA Not Reportable 04/21/21 16:32 Large Platelets Not Reportable 04/21/21 16:32 Giant Platelets Not Reportable 04/21/21 16:32 Platelet Satelliting Not Reportable 04/21/21 16:32 Plt Morphology Comment Not Reportable 04/21/21 16:32 RBC Morphology Not Reportable 04/21/21 16:32 Dimorphic RBCs Not Reportable 04/21/21 16:32 Polychromasia Not Reportable 04/21/21 16:32 Hypochromasia Not Reportable 04/21/21 16:32 Poikilocytosis Not Reportable 04/21/21 16:32 Anisocytosis 1+ 04/21/21 16:32 Microcytosis Not Reportable 04/21/21 16:32 Macrocytosis Not Reportable 04/21/21 16:32 Spherocytes Not Reportable 04/21/21 16:32 Pappenheimer Bodies Not Reportable 04/21/21 16:32 Sickle Cells Not Reportable 04/21/21 16:32 Target Cells Not Reportable 04/21/21 16:32 Tear Drop Cells Not Reportable 04/21/21 16:32 Ovalocytes Not Reportable 04/21/21 16:32 Helmet Cells Not Reportable 04/21/21 16:32 [place] Bodies Not Reportable 04/21/21 16:32 [place] Rings Not Reportable 04/21/21 16:32 Chay Cells Not Reportable 04/21/21 16:32 Bite Cells Not Reportable 04/21/21 16:32 Crenated Cell Not Reportable 04/21/21 16:32 Elliptocytes Not Reportable 04/21/21 16:32 Acanthocytes (Spur) Not Reportable 04/21/21 16:32 Rouleaux Not Reportable 04/21/21 16:32 Hemoglobin C Crystals Not Reportable 04/21/21 16:32 Schistocytes Not Reportable 04/21/21 16:32 Malaria parasites Not Reportable 04/21/21 16:32 Uli Bodies Not Reportable 04/21/21 16:32 Hem Pathologist Commnt No 04/21/21 16:32 PT 13.2 Sec. (12.2-14.9) 04/22/21 00:32 INR 0.95 (0.87-1.13) 04/22/21 00:32 APTT 29.2 Sec. (24.2-36.6) 04/22/21 00:32 D-Dimer 1522.26 ng/mlDDU (0-234) H 04/21/21 16:30 Heparin Anti-Xa Level 0.84 U.I./ml (0.3-0.7) H 04/24/21 10:14 ABG pH 7.407 (7.320-7.450) 04/26/21 05:22 POC ABG pCO2 38.9 mmHg (32.0-48.0) 04/26/21 05:22 ABG pCO2 46.0 mm Hg 04/22/21 17:30 POC ABG pO2 52.2 mmHg (83-108) L 04/26/21 05:22 ABG pO2 99.6 mm Hg (80.0-90.0) H 04/22/21 17:30 POC ABG HCO3 23.9 04/26/21 05:22 ABG HCO3 24.4 mmol/L (20.0-26.0) 04/22/21 17:30 ABG O2 Saturation 87.1 (0-100) 04/26/21 05:22 ABG O2 Content 19.9 (0.0-44) 04/22/21 17:30 POC ABG Base Excess -0.6 04/26/21 05:22 ABG Base Excess -1.6 mmol/L (-2.0-3.0) 04/22/21 17:30 ABG Hemoglobin 10.9 (12.0-17.5) L 04/26/21 05:22 ABG Oxyhemoglobin 86.5 (94-98) L 04/26/21 05:22 ABG Carboxyhemoglobin 0.9 % (0.0-5.0) 04/22/21 17:30 ABG Methemoglobin 0.3 (0.0-1.5) 04/26/21 05:22 ABG Sodium 144.7 mmol/L (136.0-145.0) 04/26/21 05:22 ABG Potassium 4.4 mmol/L (3.40-4.50) 04/26/21 05:22 ABG Chloride 114.0 mmol/L (98-107) H 04/26/21 05:22 ABG Glucose 144 mg/dL (65-95) H 04/26/21 05:22 Oxyhemoglobin 95.9 % (95.0-99.0) 04/22/21 17:30 Carboxyhemoglobin 0.4 (0.5-1.5) L 04/26/21 05:22 FiO2 100 % 04/22/21 17:30 FiO2 % 100.0 04/26/21 05:22 Sodium 146 mmol/L (137-145) H 04/25/21 07:42 Potassium 4.0 mmol/L (3.6-5.0) 04/25/21 07:42 Chloride 111.3 mmol/L (98-107) H 04/25/21 07:42 Carbon Dioxide 27 mmol/L (22-30) 04/25/21 07:42 Anion Gap 12 mmol/L 04/25/21 07:42 BUN 14 mg/dL (7-17) 04/25/21 07:42 Creatinine 0.9 mg/dL (0.6-1.2) 04/25/21 07:42 Estimated GFR > 60 ml/min 04/25/21 07:42 BUN/Creatinine Ratio 16 % 04/25/21 07:42 Glucose 128 mg/dL (65-100) H 04/25/21 07:42 POC Glucose 134 mg/dL (70-105) H 04/26/21 05:06 Calcium 9.2 mg/dL (8.4-10.2) 04/25/21 07:42 Phosphorus 2.90 mg/dL (2.5-4.5) D 04/25/21 07:42 Magnesium 2.40 mg/dL (1.7-2.3) H 04/24/21 10:00 Total Bilirubin 0.40 mg/dL (0.1-1.2) 04/24/21 10:00 AST 59 units/L (5-40) H 04/24/21 10:00 ALT 30 units/L (7-56) 04/24/21 10:00 Alkaline Phosphatase 83 units/L (35-129) 04/24/21 10:00 Ammonia 56.0 umol/L (25-60) 04/21/21 16:32 Total Creatine Kinase 396 units/L (30-135) H 04/24/21 10:00 CK-MB (CK-2) 22.4 ng/mL (0.0-4.0) H 04/21/21 16:32 CK-MB (CK-2) Rel Index 0.7 (0-4) 04/21/21 16:32 Troponin T 0.055 ng/mL (0.00-0.029) H 04/21/21 16:32 Total Protein 5.5 g/dL (6.3-8.2) L 04/24/21 10:00 Albumin 2.4 g/dL (3.9-5) L 04/24/21 10:00 Albumin/Globulin Ratio 0.8 % 04/24/21 10:00 Triglycerides 235 mg/dL (2-149) H 04/21/21 16:32 Cholesterol 220 mg/dL (50-199) H 04/21/21 16:32 LDL Cholesterol Direct 142 mg/dL (50-130) H 04/21/21 16:32 HDL Cholesterol 36 mg/dL (40-59) L 04/21/21 16:32 Cholesterol/HDL Ratio 6.11 % 04/21/21 16:32 TSH 0.876 mlU/mL (0.270-4.200) 04/21/21 16:32 Free T4 1.05 ng/dL (0.76-1.46) 04/21/21 16:32 Arterial Blood Glucose 144 mg/dL (65-95) H 04/26/21 05:22 Arterial Blood Ionized Calcium 5.0 mg/dL (4.6-5.3) 04/26/21 05:22 Urine Color Yellow (Yellow) 04/21/21 Unknown Urine Turbidity Clear (Clear) 04/21/21 Unknown Urine pH 5.0 (5.0-7.0) 04/21/21 Unknown Ur Specific [place] 1.014 (1.003-1.030) 04/21/21 Unknown Urine Protein 100 mg/dl mg/dL (Negative) 04/21/21 Unknown Urine Glucose (UA) Neg mg/dL (Negative) 04/21/21 Unknown Urine Ketones Tr mg/dL (Negative) 04/21/21 Unknown Urine Blood Lg (Negative) 04/21/21 Unknown Urine Nitrite Neg (Negative) 04/21/21 Unknown Urine Bilirubin Neg (Negative) 04/21/21 Unknown Urine Urobilinogen 2.0 mg/dL (<2.0) 04/21/21 Unknown Ur Leukocyte Esterase Neg (Negative) 04/21/21 Unknown Urine WBC (Auto) 5.0 /HPF (0.0-6.0) 04/21/21 Unknown Urine RBC (Auto) 1.0 /HPF (0.0-6.0) 04/21/21 Unknown U Epithel Cells (Auto) 1.0 /HPF (0-13.0) 04/21/21 Unknown Urine Mucus Few /HPF 04/21/21 Unknown Urine Creatinine 138.9 mg/dL (0.1-20.0) H 04/22/21 13:03 Urine Total Protein 86 mg/dL (5-11.8) H 04/22/21 13:03 Urine Opiates Screen Negative 04/21/21 Unknown Urine Methadone Screen Negative 04/21/21 Unknown Ur Barbiturates Screen Negative 04/21/21 Unknown Ur Phencyclidine Scrn Negative 04/21/21 Unknown Ur Amphetamines Screen Negative 04/21/21 Unknown U Benzodiazepines Scrn Negative 04/21/21 Unknown Urine Cocaine Screen Negative 04/21/21 Unknown U Marijuana (THC) Screen Negative 04/21/21 Unknown Drugs of Abuse Note Disclamer 04/21/21 Unknown Plasma/Serum Alcohol < 0.01 % (0-0.07) 04/21/21 16:32 Coronavirus (PCR) Negative (Negative) 04/23/21 Unknown [place]/IV: Voiding Method Incontinent Active Medications - Current Medications Current Medications: Generic Name Dose Route Start Last Admin Trade Name Freq PRN Reason Stop Dose Admin Acetaminophen 650 mg 04/21/21 21:11 Acetaminophen 325 Mg Tab PO Q4H PRN Pain MILD(1-3)/Fever >100.5/DICKINSON Lipase/Protease/Amylase 1 each 04/22/21 10:51 Lipase 10,500/Protease 25,000/Amylase 43,750 (Units) Dr Ryan FEEDTUBE PRN PRN For Clogged Feeding Tube Enoxaparin Sodium 80 mg 04/24/21 14:00 04/26/21 02:15 Enoxaparin 80 Mg/0.8 Ml Inj SUB-Q 80 mg Q12H MINOR Administration Famotidine 20 mg 04/24/21 10:00 04/25/21 21:00 Famotidine 20 Mg Tab PO 20 mg BID MINOR Administration Hydrophilic Ointment 1 applic 04/21/21 15:46 Lip Therapy Vaseline TP Q2HR PRN Dry Lips Fentanyl Citrate 2,000 mcg in 100 mls @ 3.515 mls/hr 04/21/21 16:00 04/26/21 03:48 Fentanyl Drip Premix IV 4 mcg/kg/hr TITR MINOR 14.061 mls/hr Administration Protocol 1 MCG/KG/HR Dexmedetomidine HCl 400 mcg/ 104 mls @ 4.144 mls/hr 04/25/21 06:00 04/26/21 01:30 Sodium Chloride IV 0.4 mcg/kg/hr TITRATE MINOR 8.289 mls/hr Titration Protocol 0.2 MCG/KG/HR Methylprednisolone Sodium 250 mls @ 250 mls/hr 04/25/21 11:00 04/25/21 11:30 Succinate 1,000 mg/ Sodium IV 04/27/21 11:59 250 mls/hr Chloride Q24H MINOR Administration Levetiracetam 750 mg 04/25/21 10:00 04/25/21 21:00 Levetiracetam 500 Mg/5 Ml Oral Liqd PO 750 mg BID MINOR Administration Methylprednisolone Sodium Succinate 60 mg 04/28/21 06:00 Methylprednisolone Sod Succinate 40 Mg/1 Ml Inj IV Q6H MINOR Multi-Ingred Cream/Lotion/Oil/Oint 1 applic 04/21/21 15:46 Mineral Oil/Petrolatum, White Ophth Oint 3.5 Gm OU Q4HR PRN Dry Eye(s) Ondansetron HCl 4 mg 04/26/21 06:15 Ondansetron 4 Mg/2 Ml Inj IV Q6HR PRN Nausea And Vomiting Potassium Phos/Sodium Phos 1 each 04/24/21 14:00 04/26/21 02:22 Phos-Nak Powder Packet PO 04/26/21 08:01 1 each Q6H MINOR Administration Senna/Docusate Sodium 1 tab 04/21/21 22:00 04/25/21 21:00 Sennosides/Docusate Sodium 8.6/50 Mg Tab FEEDTUBE 1 tab BID MINOR Administration Simple Syrup 15 ml 04/22/21 10:51 Simple Syrup 15 Ml FEEDTUBE PRN PRN Hypoglycemia Simple Syrup 30 ml 04/22/21 10:51 Simple Syrup 15 Ml FEEDTUBE PRN PRN Hypoglycemia Sodium Bicarbonate 325 mg 04/22/21 10:51 Sodium Bicarbonate 325 Mg Tab FEEDTUBE PRN PRN For Clogged Feeding Tube Sodium Chloride 10 ml 04/21/21 22:00 04/25/21 21:09 Sodium Chloride 0.9% 10 Ml Flush Syringe IV 10 ml BID MINOR Administration Sodium Chloride 10 ml 04/21/21 21:11 Sodium Chloride 0.9% 10 Ml Flush Syringe IV PRN PRN LINE FLUSH Nutrition/Malnutrition Assess - Dietary Evaluation Nutrition/Malnutrition Findings: Nutrition Notes Start: 04/22/21 10:45 Freq: Status: Active Protocol: Document 04/24/21 14:58 [facility] (Rec: 04/24/21 15:04 [facility] [id number]) Nutrition Notes Initial or Follow up Reassessment Current Diagnosis Acute Kidney Injury, Hypertension,Stroke, Hyperlipidemia Other Pertinent Diagnosis New onset seizures, AMS, pulmonary embolism Current Diet TF - Nepro 35ml/hr Labs/Tests reviewed Pertinent Medications reviewed Height 5 ft 9 in Weight 79.7 kg [place] Body Weight (kg) 65.90 BMI 25.9 Weight change and time frame wt change noted Weight Status Appropriate Subjective/Other Information Per RN, pt tolerating TF at goal rate. Pt remains on vent support. Percent of energy/protein needs met: 89% energy 71% pro Burn Absent Trauma Absent #1 Nutrition Diagnosis Inadequate oral intake Diagnosis Progress(for reassessment Continues documentation) Is patient on ventilator? Yes Is Patient Ambulatory and/or Out of Bed No REE-(Fleming-St. Jeor-confined to bed) [phone] Calculation Used for Recommendations Fleming-St Jeor Additional Notes Pro needs 1.2-2g/k-159g/ day Fluid needs 1ml/kcal Nutrition Intervention Nutrition Support: Continue Nepro at 35ml/hr with 150ml water flush q4h. Kcal 1,512 Protein (gm) 68 Carbohydrates (gm) 135 Fat (gm) 81 Fluid (mL) 611 Fiber (gm) 11 Goal #1 TF tolerance Goal #2 TF to meet at least 75% energy and pro needs Follow-Up By: 05/01/21 Additional Comments F/U: stable TF, vent status, wt
[2021-04-26] MEDS ORDERED: LORazepam 2 MG/ML VIAL IV SCH (08:15)
--- NOTE | 2021-04-26 08:55 | Progress Note ---
Assessment and Plan - Patient Problems (1) LIZBETH (acute kidney injury) Current Visit: Yes Status: Acute (2) Hyperkalemia Current Visit: Yes Status: Acute (3) Elevated liver function tests Current Visit: Yes Status: Acute (4) Proteinuria Current Visit: Yes Status: Acute (5) New onset seizure Current Visit: Yes Status: Acute (6) Rhabdomyolysis Current Visit: Yes Status: Acute (7) Hypertension Current Visit: Yes Status: Chronic Qualifiers: Hypertension type: primary hypertension Qualified Code(s): I10 - Essential (primary) hypertension Subjective Principal diagnosis: Acute kidney injury, rhabdomyolysis Objective - Vital Signs Vital signs: Vital Signs - 12hr 04/25/21 04/25/21 04/25/21 21:00 21:10 21:14 Temperature Pulse Rate 72 72 97 H Pulse Rate [ From Monitor] Respiratory Rate Blood Pressure 111/68 111/68 O2 Sat by Pulse 93 94 90 Oximetry 04/25/21 04/25/21 04/25/21 21:20 21:30 21:40 Temperature Pulse Rate 96 H 75 67 Pulse Rate [ From Monitor] Respiratory Rate Blood Pressure 111/68 111/68 111/68 O2 Sat by Pulse 91 93 94 Oximetry 04/25/21 04/25/21 04/25/21 21:50 22:00 22:10 Temperature Pulse Rate 67 69 70 Pulse Rate [ From Monitor] Respiratory Rate Blood Pressure 111/68 111/68 111/68 O2 Sat by Pulse 93 95 96 Oximetry 04/25/21 04/25/21 04/25/21 22:20 22:30 22:40 Temperature Pulse Rate 69 69 70 Pulse Rate [ From Monitor] Respiratory Rate Blood Pressure 111/68 111/68 111/68 O2 Sat by Pulse 96 95 95 Oximetry 04/25/21 04/25/21 04/25/21 22:50 23:00 23:10 Temperature Pulse Rate 70 71 70 Pulse Rate [ From Monitor] Respiratory Rate Blood Pressure 111/68 111/68 111/68 O2 Sat by Pulse 95 95 96 Oximetry 04/25/21 04/25/21 04/25/21 23:20 23:30 23:40 Temperature Pulse Rate 68 70 69 Pulse Rate [ From Monitor] Respiratory Rate Blood Pressure 111/68 111/68 111/68 O2 Sat by Pulse 96 96 93 Oximetry 04/25/21 04/26/21 04/26/21 23:50 00:00 00:10 Temperature 97.5 F L Pulse Rate 112 H 126 H 122 H Pulse Rate [ 81 From Monitor] Respiratory 27 H Rate Blood Pressure 111/68 111/68 111/68 O2 Sat by Pulse 89 81 L Oximetry 04/26/21 04/26/21 04/26/21 00:20 00:30 00:40 Temperature Pulse Rate 78 116 H 112 H Pulse Rate [ From Monitor] Respiratory Rate Blood Pressure 111/68 111/68 111/68 O2 Sat by Pulse 92 77 L 78 L Oximetry 04/26/21 04/26/21 04/26/21 00:45 00:50 01:00 Temperature Pulse Rate 87 111 H 76 Pulse Rate [ From Monitor] Respiratory Rate Blood Pressure 111/68 111/68 O2 Sat by Pulse 83 L 79 L 85 Oximetry 04/26/21 04/26/21 04/26/21 01:10 01:20 01:30 Temperature Pulse Rate 73 98 H 89 Pulse Rate [ From Monitor] Respiratory Rate Blood Pressure 111/68 111/68 111/68 O2 Sat by Pulse 89 87 82 L Oximetry 04/26/21 04/26/21 04/26/21 01:40 01:50 02:00 Temperature Pulse Rate 69 107 H 73 Pulse Rate [ From Monitor] Respiratory Rate Blood Pressure 111/68 111/68 111/68 O2 Sat by Pulse 89 78 L 88 Oximetry 04/26/21 04/26/21 04/26/21 02:10 02:20 02:30 Temperature Pulse Rate 75 98 H 73 Pulse Rate [ From Monitor] Respiratory Rate Blood Pressure 111/68 111/68 111/68 O2 Sat by Pulse 92 85 90 Oximetry 04/26/21 04/26/21 04/26/21 02:40 02:50 03:00 Temperature Pulse Rate 99 H 71 79 Pulse Rate [ From Monitor] Respiratory Rate Blood Pressure 111/68 111/68 111/68 O2 Sat by Pulse 80 L 91 84 Oximetry 04/26/21 04/26/21 04/26/21 03:10 03:20 03:30 Temperature Pulse Rate 73 76 80 Pulse Rate [ From Monitor] Respiratory Rate Blood Pressure 111/68 111/68 111/68 O2 Sat by Pulse 91 92 83 L Oximetry 04/26/21 04/26/21 04/26/21 03:34 03:40 03:50 Temperature 98.7 F Pulse Rate 74 83 Pulse Rate [ From Monitor] Respiratory Rate Blood Pressure 111/68 111/68 O2 Sat by Pulse 91 83 L Oximetry 04/26/21 04/26/21 04/26/21 04:00 04:10 04:20 Temperature Pulse Rate 100 H 73 83 Pulse Rate [ From Monitor] Respiratory Rate Blood Pressure 111/68 111/68 111/68 O2 Sat by Pulse 87 91 86 Oximetry 04/26/21 04/26/21 04/26/21 04:30 04:40 04:50 Temperature Pulse Rate 74 73 75 Pulse Rate [ From Monitor] Respiratory Rate Blood Pressure 111/68 111/68 111/68 O2 Sat by Pulse 93 88 92 Oximetry 04/26/21 04/26/21 04/26/21 05:00 05:10 05:19 Temperature Pulse Rate 91 H 72 75 Pulse Rate [ From Monitor] Respiratory Rate Blood Pressure 111/68 111/68 106/84 O2 Sat by Pulse 90 89 91 Oximetry 04/26/21 04/26/21 04/26/21 05:20 05:30 05:40 Temperature Pulse Rate 75 83 76 Pulse Rate [ From Monitor] Respiratory Rate Blood Pressure 111/68 111/68 111/68 O2 Sat by Pulse 91 85 90 Oximetry 04/26/21 04/26/21 04/26/21 05:50 06:00 06:10 Temperature Pulse Rate 76 76 Pulse Rate [ From Monitor] Respiratory 20 Rate Blood Pressure 111/68 111/68 111/68 O2 Sat by Pulse 76 L 94 88 Oximetry 04/26/21 04/26/21 04/26/21 06:20 07:36 07:45 Temperature 97.5 F L Pulse Rate 108 H 96 H Pulse Rate [ From Monitor] Respiratory Rate Blood Pressure 111/68 147/86 O2 Sat by Pulse 79 L 88 Oximetry - Lab 04/26/21 06:13 04/25/21 07:42 Most recent lab results ABG pH 7.407 (7.320-7.450) 04/26/21 05:22 ABG pCO2 46.0 mm Hg 04/22/21 17:30 ABG pO2 99.6 mm Hg (80.0-90.0) H 04/22/21 17:30 ABG HCO3 24.4 mmol/L (20.0-26.0) 04/22/21 17:30 ABG O2 Saturation 87.1 (0-100) 04/26/21 05:22 Calcium 9.2 mg/dL (8.4-10.2) 04/25/21 07:42 Phosphorus 2.90 mg/dL (2.5-4.5) D 04/25/21 07:42 Magnesium 2.40 mg/dL (1.7-2.3) H 04/24/21 10:00 Urine Creatinine 138.9 mg/dL (0.1-20.0) H 04/22/21 13:03 Urine Total Protein 86 mg/dL (5-11.8) H 04/22/21 13:03 Medications & Allergies - Medications Allergies/Adverse Reactions: Allergies No Known Allergies Allergy (Unverified 03/04/19 19:33) Home Medications: Home Medications Medication Instructions Recorded Confirmed Last Taken Type Lipitor 40 mg PO QHS #30 03/10/19 04/25/21 Unknown Rx Aspirin 300 mg PO QDAY 04/25/21 04/25/21 Unknown History Aspirin [Aspirin BABY CHEW TAB] 81 mg PO QDAY 04/25/21 04/25/21 Unknown History Sertraline [Zoloft] 50 mg PO QDAY 04/25/21 04/25/21 Unknown History amLODIPine 10 mg PO QDAY 04/25/21 04/25/21 Unknown History hydroCHLOROthiazide 12.5 mg PO QDAY 04/25/21 04/25/21 Unknown History [Hydrochlorothiazide] Active Medications: Generic Name Dose Route Start Last Admin Trade Name Freq PRN Reason Stop Dose Admin Acetaminophen 650 mg 04/21/21 21:11 Acetaminophen 325 Mg Tab PO Q4H PRN Pain MILD(1-3)/Fever >100.5/DICKINSON Lipase/Protease/Amylase 1 each 04/22/21 10:51 Lipase 10,500/Protease 25,000/Amylase 43,750 (Units) Dr Ryan FEEDTUBE PRN PRN For Clogged Feeding Tube Enoxaparin Sodium 80 mg 04/24/21 14:00 04/26/21 02:15 Enoxaparin 80 Mg/0.8 Ml Inj SUB-Q 80 mg Q12H MINOR Administration Famotidine 20 mg 04/24/21 10:00 04/25/21 21:00 Famotidine 20 Mg Tab PO 20 mg BID MINOR Administration Hydrophilic Ointment 1 applic 04/21/21 15:46 Lip Therapy Vaseline TP Q2HR PRN Dry Lips Fentanyl Citrate 2,000 mcg in 100 mls @ 3.515 mls/hr 04/21/21 16:00 04/26/21 08:05 Fentanyl Drip Premix IV 4 mcg/kg/hr TITR MINOR 14.061 mls/hr Administration Protocol 1 MCG/KG/HR Dexmedetomidine HCl 400 mcg/ 104 mls @ 4.144 mls/hr 04/25/21 06:00 04/26/21 08:00 Sodium Chloride IV 0.7 mcg/kg/hr TITRATE MINOR 14.505 mls/hr Titration Protocol 0.2 MCG/KG/HR Methylprednisolone Sodium 250 mls @ 250 mls/hr 04/25/21 11:00 04/25/21 11:30 Succinate 1,000 mg/ Sodium IV 04/27/21 11:59 250 mls/hr Chloride Q24H MINOR Administration Levetiracetam 750 mg 04/25/21 10:00 04/25/21 21:00 Levetiracetam 500 Mg/5 Ml Oral Liqd PO 750 mg BID MINOR Administration Lorazepam 2 mg 04/26/21 08:15 Lorazepam 2 Mg/Ml Vial IV Q4H IMNOR Methylprednisolone Sodium Succinate 60 mg 04/28/21 06:00 Methylprednisolone Sod Succinate 40 Mg/1 Ml Inj IV Q6H MINOR Multi-Ingred Cream/Lotion/Oil/Oint 1 applic 04/21/21 15:46 Mineral Oil/Petrolatum, White Ophth Oint 3.5 Gm OU Q4HR PRN Dry Eye(s) Ondansetron HCl 4 mg 04/26/21 06:15 Ondansetron 4 Mg/2 Ml Inj IV Q6HR PRN Nausea And Vomiting Senna/Docusate Sodium 1 tab 04/21/21 22:00 04/25/21 21:00 Sennosides/Docusate Sodium 8.6/50 Mg Tab FEEDTUBE 1 tab BID MINOR Administration Simple Syrup 15 ml 04/22/21 10:51 Simple Syrup 15 Ml FEEDTUBE PRN PRN Hypoglycemia Simple Syrup 30 ml 04/22/21 10:51 Simple Syrup 15 Ml FEEDTUBE PRN PRN Hypoglycemia Sodium Bicarbonate 325 mg 04/22/21 10:51 Sodium Bicarbonate 325 Mg Tab FEEDTUBE PRN PRN For Clogged Feeding Tube Sodium Chloride 10 ml 04/21/21 22:00 04/25/21 21:09 Sodium Chloride 0.9% 10 Ml Flush Syringe IV 10 ml BID MINOR Administration Sodium Chloride 10 ml 04/21/21 21:11 Sodium Chloride 0.9% 10 Ml Flush Syringe IV PRN PRN LINE FLUSH
[2021-04-26] MEDS: levETIRAcetam 500 MG/5 ML ORAL LIQD PO SCH ×2 (09:34→21:18)
[2021-04-26] MEDS: FAMOTIDINE 20 MG TAB PO SCH ×2 (09:34→21:19)
[2021-04-26] MEDS: SENNOSIDES/DOCUSATE SODIUM 8.6/50 MG TAB FEEDTUBE SCH ×2 (09:35→21:20)
--- NOTE | 2021-04-26 11:33 | Progress Note ---
Assessment and Plan 66 y/o female, intubated for airway protection, found to have severe ILD and no has refractory hypoxemia. 04/26/21: Dropped tidal volume to 300. Keep PEEP at 16. Repeat ABG at 1230. Now that BP is better will give lasix 40 IV x1. Please assess again tomorrow and see if she would benefit from this. Pulse dose steroids through tomorrow and then solumedrol 60q6 starting on Thursday. Spoke with daughter over the phone who confirmed that mother was a smoker, heavy for 30+ years. Will start on BID pulmicort and brovana therapy. Overall prognosis discussed with daughter regarding possible need for trach and vent dependence. She asked about lung tx which I explained is not an option at this time. She seemed to express understanding but was mainly in shock as she had no idea her mother had ILD and per daughter, mother never saw a lung physician. Guarded to poor prognosis. My partner rounding over the weekend, I am back on Thursday. 04/25/21: Picc line today. Increase PEEP to 16. Dropped TV back to 375. pH of 7.2 and greater is acceptable. Will also pulse dose for the next 72 hours and then transition to q6 dosing on Thursday. Will discuss current clinical state with daughter. Serial ABG's today to make sure pH stays where it needs to be and hopeful improvement in oxygenation. Guarded prognosis. 04/24/21: Will drop TV to 375 and Increase PEEP to 14. Will repeat ABG in one hour. If no improvements, may need to consider IV steroids for 48-72 hours. Exact etiology of chronic lung disease is not known. Would prefer not to give sedation vacation given high levels of oxygen required as agitation could make t hings worse. Right now, unable to determine current neuro state. Lungs are very very sick and even though this is a chronic issue, now with her drive diminished from the ventilator, most likely will be a difficult wean. Will discuss with family soon what the next steps could potentially be but would need to assess mental state first. Guarded prognosis. 1. Increase PEEP and repeat ABG 2. May need to consider IV steroids 3. Follow up neuro recs 4. Guarded prognosis. cCT 31 minutes. Subjective Date of service: 04/26/21 Principal diagnosis: Acute kidney injury, rhabdomyolysis Interval history: More agitated this am, likely from high dose steroids. BP better. Calmed down with ativan push. Still making urine. Oxygenation is still not good. Objective Vital Signs - 12hr 04/25/21 04/25/21 04/25/21 23:30 23:40 23:50 Temperature Pulse Rate 70 69 112 H Pulse Rate [ 81 From Monitor] Respiratory Rate Blood Pressure 111/68 111/68 111/68 O2 Sat by Pulse 96 93 89 Oximetry 04/26/21 04/26/21 04/26/21 00:00 00:10 00:20 Temperature 97.5 F L Pulse Rate 126 H 122 H 78 Pulse Rate [ From Monitor] Respiratory 27 H Rate Blood Pressure 111/68 111/68 111/68 O2 Sat by Pulse 81 L 92 Oximetry 04/26/21 04/26/21 04/26/21 00:30 00:40 00:45 Temperature Pulse Rate 116 H 112 H 87 Pulse Rate [ From Monitor] Respiratory Rate Blood Pressure 111/68 111/68 O2 Sat by Pulse 77 L 78 L 83 L Oximetry 04/26/21 04/26/21 04/26/21 00:50 01:00 01:10 Temperature Pulse Rate 111 H 76 73 Pulse Rate [ From Monitor] Respiratory Rate Blood Pressure 111/68 111/68 111/68 O2 Sat by Pulse 79 L 85 89 Oximetry 04/26/21 04/26/21 04/26/21 01:20 01:30 01:40 Temperature Pulse Rate 98 H 89 69 Pulse Rate [ From Monitor] Respiratory Rate Blood Pressure 111/68 111/68 111/68 O2 Sat by Pulse 87 82 L 89 Oximetry 04/26/21 04/26/21 04/26/21 01:50 02:00 02:10 Temperature Pulse Rate 107 H 73 75 Pulse Rate [ From Monitor] Respiratory Rate Blood Pressure 111/68 111/68 111/68 O2 Sat by Pulse 78 L 88 92 Oximetry 04/26/21 04/26/21 04/26/21 02:20 02:30 02:40 Temperature Pulse Rate 98 H 73 99 H Pulse Rate [ From Monitor] Respiratory Rate Blood Pressure 111/68 111/68 111/68 O2 Sat by Pulse 85 90 80 L Oximetry 04/26/21 04/26/21 04/26/21 02:50 03:00 03:10 Temperature Pulse Rate 71 79 73 Pulse Rate [ From Monitor] Respiratory Rate Blood Pressure 111/68 111/68 111/68 O2 Sat by Pulse 91 84 91 Oximetry 04/26/21 04/26/21 04/26/21 03:20 03:30 03:34 Temperature 98.7 F Pulse Rate 76 80 Pulse Rate [ From Monitor] Respiratory Rate Blood Pressure 111/68 111/68 O2 Sat by Pulse 92 83 L Oximetry 04/26/21 04/26/21 04/26/21 03:40 03:50 04:00 Temperature Pulse Rate 74 83 100 H Pulse Rate [ From Monitor] Respiratory Rate Blood Pressure 111/68 111/68 111/68 O2 Sat by Pulse 91 83 L 87 Oximetry 04/26/21 04/26/21 04/26/21 04:10 04:20 04:30 Temperature Pulse Rate 73 83 74 Pulse Rate [ From Monitor] Respiratory Rate Blood Pressure 111/68 111/68 111/68 O2 Sat by Pulse 91 86 93 Oximetry 04/26/21 04/26/21 04/26/21 04:40 04:50 05:00 Temperature Pulse Rate 73 75 91 H Pulse Rate [ From Monitor] Respiratory Rate Blood Pressure 111/68 111/68 111/68 O2 Sat by Pulse 88 92 90 Oximetry 04/26/21 04/26/21 04/26/21 05:10 05:19 05:20 Temperature Pulse Rate 72 75 75 Pulse Rate [ From Monitor] Respiratory Rate Blood Pressure 111/68 106/84 111/68 O2 Sat by Pulse 89 91 91 Oximetry 04/26/21 04/26/21 04/26/21 05:30 05:40 05:50 Temperature Pulse Rate 83 76 Pulse Rate [ From Monitor] Respiratory Rate Blood Pressure 111/68 111/68 111/68 O2 Sat by Pulse 85 90 76 L Oximetry 04/26/21 04/26/21 04/26/21 06:00 06:10 06:20 Temperature Pulse Rate 76 76 108 H Pulse Rate [ From Monitor] Respiratory 20 Rate Blood Pressure 111/68 111/68 111/68 O2 Sat by Pulse 94 88 79 L Oximetry 04/26/21 04/26/21 04/26/21 06:30 06:40 06:50 Temperature Pulse Rate 102 H 82 84 Pulse Rate [ From Monitor] Respiratory Rate Blood Pressure 111/68 111/68 111/68 O2 Sat by Pulse 87 90 85 Oximetry 04/26/21 04/26/21 04/26/21 07:00 07:10 07:20 Temperature Pulse Rate 87 75 76 Pulse Rate [ From Monitor] Respiratory Rate Blood Pressure 111/68 111/68 111/68 O2 Sat by Pulse 84 89 90 Oximetry 04/26/21 04/26/21 04/26/21 07:30 07:36 07:40 Temperature 97.5 F L Pulse Rate 80 108 H Pulse Rate [ From Monitor] Respiratory Rate Blood Pressure 111/68 111/68 O2 Sat by Pulse 89 74 L Oximetry 04/26/21 04/26/21 04/26/21 07:45 07:50 08:00 Temperature Pulse Rate 96 H 104 H 78 Pulse Rate [ 77 From Monitor] Respiratory 22 Rate Blood Pressure 147/86 111/68 O2 Sat by Pulse 88 79 L 90 Oximetry 04/26/21 04/26/21 04/26/21 08:10 08:30 08:40 Temperature Pulse Rate 121 H 124 H Pulse Rate [ From Monitor] Respiratory Rate Blood Pressure O2 Sat by Pulse 79 L 87 78 L Oximetry 04/26/21 04/26/21 04/26/21 09:00 09:10 09:20 Temperature Pulse Rate 100 H 92 H 91 H Pulse Rate [ From Monitor] Respiratory 23 25 H 23 Rate Blood Pressure 159/100 O2 Sat by Pulse 100 88 90 Oximetry 04/26/21 04/26/21 04/26/21 09:30 09:40 09:50 Temperature Pulse Rate 89 88 87 Pulse Rate [ From Monitor] Respiratory 22 21 22 Rate Blood Pressure 159/100 159/100 159/100 O2 Sat by Pulse 91 90 90 Oximetry CBC and BMP: 04/26/21 06:13 04/25/21 07:42 ABG, PT/INR, D-dimer: ABG ABG pH 7.407 (7.320-7.450) 04/26/21 05:22 POC ABG pCO2 38.9 mmHg (32.0-48.0) 04/26/21 05:22 ABG pCO2 46.0 mm Hg 04/22/21 17:30 POC ABG pO2 52.2 mmHg (83-108) L 04/26/21 05:22 ABG pO2 99.6 mm Hg (80.0-90.0) H 04/22/21 17:30 POC ABG HCO3 23.9 04/26/21 05:22 ABG O2 Saturation 87.1 (0-100) 04/26/21 05:22 PT/INR, D-dimer PT 13.2 Sec. (12.2-14.9) 04/22/21 00:32 INR 0.95 (0.87-1.13) 04/22/21 00:32 D-Dimer 1522.26 ng/mlDDU (0-234) H 04/21/21 16:30 Abnormal lab findings: Abnormal Labs 04/21/21 04/21/21 04/21/21 14:40 15:42 16:30 RBC Hgb Hct RDW Lymph % (Auto) [place] % (Auto) Lymph # (Auto) Seg Neutrophils % Seg Neuts % (Manual) Lymphocytes % (Manual) Monocytes % (Manual) Lymphocytes # (Manual) D-Dimer 1522.26 H Heparin Anti-Xa Level ABG pH POC ABG pCO2 POC ABG pO2 45.5 L 69.9 L ABG pO2 ABG Hemoglobin ABG Oxyhemoglobin 78.6 L 90.2 L ABG Potassium ABG Chloride 111.0 H ABG Glucose 156 H 148 H Carboxyhemoglobin Sodium Potassium Chloride Carbon Dioxide BUN Creatinine Glucose POC Glucose Calcium Phosphorus Magnesium AST ALT Total Creatine Kinase CK-MB (CK-2) Troponin T Total Protein Albumin Triglycerides Cholesterol LDL Cholesterol Direct HDL Cholesterol Arterial Blood Glucose 156 H 148 H Arterial Blood Ionized Calcium 4.5 L Urine Creatinine Urine Total Protein 04/21/21 04/21/21 04/22/21 16:32 16:32 00:32 RBC 5.22 H Hgb 16.2 H 14.8 H Hct 48.6 H 44.4 H RDW 15.8 H Lymph % (Auto) [place] % (Auto) Lymph # (Auto) Seg Neutrophils % Seg Neuts % (Manual) 79.0 H Lymphocytes % (Manual) 13.0 L Monocytes % (Manual) 8.0 H Lymphocytes # (Manual) 1.1 L D-Dimer Heparin Anti-Xa Level ABG pH POC ABG pCO2 POC ABG pO2 ABG pO2 ABG Hemoglobin ABG Oxyhemoglobin ABG Potassium ABG Chloride ABG Glucose Carboxyhemoglobin Sodium Potassium Chloride Carbon Dioxide 21 L BUN 24 H Creatinine 1.3 H Glucose 130 H POC Glucose Calcium Phosphorus Magnesium AST 129 H ALT 61 H Total Creatine Kinase 3055 H CK-MB (CK-2) 22.4 H Troponin T 0.055 H Total Protein Albumin 3.6 L Triglycerides 235 H Cholesterol 220 H LDL Cholesterol Direct 142 H HDL Cholesterol 36 L Arterial Blood Glucose Arterial Blood Ionized Calcium Urine Creatinine Urine Total Protein 04/22/21 04/22/21 04/22/21 03:27 05:29 05:29 RBC Hgb 15.4 H Hct 45.8 H RDW 16.0 H Lymph % (Auto) 12.0 L [place] % (Auto) 8.0 H Lymph # (Auto) 1.1 L Seg Neutrophils % 76.3 H Seg Neuts % (Manual) Lymphocytes % (Manual) Monocytes % (Manual) Lymphocytes # (Manual) D-Dimer Heparin Anti-Xa Level ABG pH POC ABG pCO2 POC ABG pO2 ABG pO2 ABG Hemoglobin ABG Oxyhemoglobin ABG Potassium 4.7 H ABG Chloride 109.0 H ABG Glucose 155 H Carboxyhemoglobin 0.4 L Sodium Potassium 6.3 H* D Chloride Carbon Dioxide BUN 26 H Creatinine Glucose 134 H POC Glucose Calcium Phosphorus Magnesium AST 123 H ALT Total Creatine Kinase CK-MB (CK-2) Troponin T Total Protein Albumin 3.6 L Triglycerides Cholesterol LDL Cholesterol Direct HDL Cholesterol Arterial Blood Glucose 155 H Arterial Blood Ionized Calcium Urine Creatinine Urine Total Protein 04/22/21 04/22/21 04/22/21 13:03 13:25 17:30 RBC Hgb Hct RDW Lymph % (Auto) [place] % (Auto) Lymph # (Auto) Seg Neutrophils % Seg Neuts % (Manual) Lymphocytes % (Manual) Monocytes % (Manual) Lymphocytes # (Manual) D-Dimer Heparin Anti-Xa Level ABG pH 7.343 L POC ABG pCO2 POC ABG pO2 ABG pO2 99.6 H ABG Hemoglobin ABG Oxyhemoglobin ABG Potassium ABG Chloride ABG Glucose Carboxyhemoglobin Sodium Potassium Chloride Carbon Dioxide BUN Creatinine Glucose POC Glucose Calcium Phosphorus Magnesium AST ALT Total Creatine Kinase 2322 H CK-MB (CK-2) Troponin T Total Protein Albumin Triglycerides Cholesterol LDL Cholesterol Direct HDL Cholesterol Arterial Blood Glucose Arterial Blood Ionized Calcium Urine Creatinine 138.9 H Urine Total Protein 86 H 04/22/21 04/23/21 04/23/21 20:00 04:42 09:53 RBC Hgb Hct RDW Lymph % (Auto) [place] % (Auto) Lymph # (Auto) Seg Neutrophils % Seg Neuts % (Manual) Lymphocytes % (Manual) Monocytes % (Manual) Lymphocytes # (Manual) D-Dimer Heparin Anti-Xa Level 2.00 H < 0.10 L ABG pH POC ABG pCO2 POC ABG pO2 ABG pO2 ABG Hemoglobin ABG Oxyhemoglobin 83.2 L ABG Potassium ABG Chloride 113.0 H ABG Glucose 107 H Carboxyhemoglobin Sodium Potassium Chloride Carbon Dioxide BUN Creatinine Glucose POC Glucose Calcium Phosphorus Magnesium AST ALT Total Creatine Kinase CK-MB (CK-2) Troponin T Total Protein Albumin Triglycerides Cholesterol LDL Cholesterol Direct HDL Cholesterol Arterial Blood Glucose 107 H Arterial Blood Ionized Calcium Urine Creatinine Urine Total Protein 04/23/21 04/23/21 04/23/21 14:21 14:21 15:11 RBC Hgb Hct RDW 16.3 H Lymph % (Auto) [place] % (Auto) Lymph # (Auto) Seg Neutrophils % Seg Neuts % (Manual) Lymphocytes % (Manual) Monocytes % (Manual) Lymphocytes # (Manual) D-Dimer Heparin Anti-Xa Level ABG pH POC ABG pCO2 POC ABG pO2 68.6 L ABG pO2 ABG Hemoglobin ABG Oxyhemoglobin 91.3 L ABG Potassium ABG Chloride 113.0 H ABG Glucose 100 H Carboxyhemoglobin Sodium Potassium Chloride 113.1 H Carbon Dioxide 20 L BUN 18 H Creatinine Glucose POC Glucose Calcium 8.2 L Phosphorus Magnesium AST 59 H ALT Total Creatine Kinase 681 H CK-MB (CK-2) Troponin T Total Protein 5.5 L Albumin 2.3 L Triglycerides Cholesterol LDL Cholesterol Direct HDL Cholesterol Arterial Blood Glucose 100 H Arterial Blood Ionized Calcium Urine Creatinine Urine Total Protein 04/23/21 04/24/21 04/24/21 18:30 04:00 05:37 RBC Hgb Hct RDW Lymph % (Auto) [place] % (Auto) Lymph # (Auto) Seg Neutrophils % Seg Neuts % (Manual) Lymphocytes % (Manual) Monocytes % (Manual) Lymphocytes # (Manual) D-Dimer Heparin Anti-Xa Level 1.84 H ABG pH POC ABG pCO2 POC ABG pO2 51.9 L ABG pO2 ABG Hemoglobin ABG Oxyhemoglobin 84.9 L ABG Potassium ABG Chloride 112.0 H ABG Glucose 138 H Carboxyhemoglobin Sodium Potassium Chloride Carbon Dioxide BUN Creatinine Glucose POC Glucose 108 H Calcium Phosphorus Magnesium AST ALT Total Creatine Kinase CK-MB (CK-2) Troponin T Total Protein Albumin Triglycerides Cholesterol LDL Cholesterol Direct HDL Cholesterol Arterial Blood Glucose 138 H Arterial Blood Ionized Calcium Urine Creatinine Urine Total Protein 04/24/21 04/24/21 04/24/21 10:00 10:00 10:14 RBC Hgb Hct RDW 16.0 H Lymph % (Auto) [place] % (Auto) Lymph # (Auto) Seg Neutrophils % Seg Neuts % (Manual) Lymphocytes % (Manual) Monocytes % (Manual) Lymphocytes # (Manual) D-Dimer Heparin Anti-Xa Level 0.84 H ABG pH POC ABG pCO2 POC ABG pO2 ABG pO2 ABG Hemoglobin ABG Oxyhemoglobin ABG Potassium ABG Chloride ABG Glucose Carboxyhemoglobin Sodium Potassium Chloride 109.9 H Carbon Dioxide BUN Creatinine Glucose 118 H POC Glucose Calcium Phosphorus 2.00 L Magnesium 2.40 H AST 59 H ALT Total Creatine Kinase 396 H CK-MB (CK-2) Troponin T Total Protein 5.5 L Albumin 2.4 L Triglycerides Cholesterol LDL Cholesterol Direct HDL Cholesterol Arterial Blood Glucose Arterial Blood Ionized Calcium Urine Creatinine Urine Total Protein 04/24/21 04/24/21 04/24/21 11:14 12:00 15:23 RBC Hgb Hct RDW Lymph % (Auto) [place] % (Auto) Lymph # (Auto) Seg Neutrophils % Seg Neuts % (Manual) Lymphocytes % (Manual) Monocytes % (Manual) Lymphocytes # (Manual) D-Dimer Heparin Anti-Xa Level ABG pH 7.287 L POC ABG pCO2 54.3 H POC ABG pO2 58.2 L 67.5 L ABG pO2 ABG Hemoglobin ABG Oxyhemoglobin 88.3 L 89.9 L ABG Potassium ABG Chloride 111.0 H 110.0 H ABG Glucose 117 H 126 H Carboxyhemoglobin 0.3 L Sodium Potassium Chloride Carbon Dioxide BUN Creatinine Glucose POC Glucose 112 H Calcium Phosphorus Magnesium AST ALT Total Creatine Kinase CK-MB (CK-2) Troponin T Total Protein Albumin Triglycerides Cholesterol LDL Cholesterol Direct HDL Cholesterol Arterial Blood Glucose 117 H 126 H Arterial Blood Ionized Calcium Urine Creatinine Urine Total Protein 04/24/21 04/24/21 04/24/21 17:58 18:00 22:56 RBC Hgb Hct RDW Lymph % (Auto) [place] % (Auto) Lymph # (Auto) Seg Neutrophils % Seg Neuts % (Manual) Lymphocytes % (Manual) Monocytes % (Manual) Lymphocytes # (Manual) D-Dimer Heparin Anti-Xa Level ABG pH POC ABG pCO2 POC ABG pO2 53.3 L ABG pO2 ABG Hemoglobin ABG Oxyhemoglobin 86.2 L ABG Potassium ABG Chloride 111.0 H ABG Glucose 115 H Carboxyhemoglobin 0.4 L Sodium Potassium Chloride Carbon Dioxide BUN Creatinine Glucose POC Glucose 106 H 131 H Calcium Phosphorus Magnesium AST ALT Total Creatine Kinase CK-MB (CK-2) Troponin T Total Protein Albumin Triglycerides Cholesterol LDL Cholesterol Direct HDL Cholesterol Arterial Blood Glucose 115 H Arterial Blood Ionized Calcium Urine Creatinine Urine Total Protein 04/25/21 04/25/21 04/25/21 04:00 07:42 10:50 RBC Hgb Hct RDW Lymph % (Auto) [place] % (Auto) Lymph # (Auto) Seg Neutrophils % Seg Neuts % (Manual) Lymphocytes % (Manual) Monocytes % (Manual) Lymphocytes # (Manual) D-Dimer Heparin Anti-Xa Level ABG pH POC ABG pCO2 POC ABG pO2 48.5 L 56.5 L ABG pO2 ABG Hemoglobin 10.6 L 10.4 L ABG Oxyhemoglobin 79.4 L 86.8 L ABG Potassium ABG Chloride 111.0 H 112.0 H ABG Glucose 115 H 124 H Carboxyhemoglobin 0.2 L Sodium 146 H Potassium Chloride 111.3 H Carbon Dioxide BUN Creatinine Glucose 128 H POC Glucose Calcium Phosphorus Magnesium AST ALT Total Creatine Kinase CK-MB (CK-2) Troponin T Total Protein Albumin Triglycerides Cholesterol LDL Cholesterol Direct HDL Cholesterol Arterial Blood Glucose 115 H 124 H Arterial Blood Ionized Calcium Urine Creatinine Urine Total Protein 04/25/21 04/25/21 04/25/21 11:12 13:55 16:05 RBC Hgb Hct RDW Lymph % (Auto) [place] % (Auto) Lymph # (Auto) Seg Neutrophils % Seg Neuts % (Manual) Lymphocytes % (Manual) Monocytes % (Manual) Lymphocytes # (Manual) D-Dimer Heparin Anti-Xa Level ABG pH POC ABG pCO2 POC ABG pO2 46.7 L 53.7 L ABG pO2 ABG Hemoglobin 10.7 L 11.1 L ABG Oxyhemoglobin 81.3 L 85.6 L ABG Potassium ABG Chloride 111.0 H 111.0 H ABG Glucose 158 H 185 H Carboxyhemoglobin 0.4 L Sodium Potassium Chloride Carbon Dioxide BUN Creatinine Glucose POC Glucose 136 H Calcium Phosphorus Magnesium AST ALT Total Creatine Kinase CK-MB (CK-2) Troponin T Total Protein Albumin Triglycerides Cholesterol LDL Cholesterol Direct HDL Cholesterol Arterial Blood Glucose 158 H 185 H Arterial Blood Ionized Calcium Urine Creatinine Urine Total Protein 04/25/21 04/25/21 04/26/21 17:39 23:18 05:06 RBC Hgb Hct RDW Lymph % (Auto) [place] % (Auto) Lymph # (Auto) Seg Neutrophils % Seg Neuts % (Manual) Lymphocytes % (Manual) Monocytes % (Manual) Lymphocytes # (Manual) D-Dimer Heparin Anti-Xa Level ABG pH POC ABG pCO2 POC ABG pO2 ABG pO2 ABG Hemoglobin ABG Oxyhemoglobin ABG Potassium ABG Chloride ABG Glucose Carboxyhemoglobin Sodium Potassium Chloride Carbon Dioxide BUN Creatinine Glucose POC Glucose 155 H 158 H 134 H Calcium Phosphorus Magnesium AST ALT Total Creatine Kinase CK-MB (CK-2) Troponin T Total Protein Albumin Triglycerides Cholesterol LDL Cholesterol Direct HDL Cholesterol Arterial Blood Glucose Arterial Blood Ionized Calcium Urine Creatinine Urine Total Protein 04/26/21 05:22 RBC Hgb Hct RDW Lymph % (Auto) [place] % (Auto) Lymph # (Auto) Seg Neutrophils % Seg Neuts % (Manual) Lymphocytes % (Manual) Monocytes % (Manual) Lymphocytes # (Manual) D-Dimer Heparin Anti-Xa Level ABG pH POC ABG pCO2 POC ABG pO2 52.2 L ABG pO2 ABG Hemoglobin 10.9 L ABG Oxyhemoglobin 86.5 L ABG Potassium ABG Chloride 114.0 H ABG Glucose 144 H Carboxyhemoglobin 0.4 L Sodium Potassium Chloride Carbon Dioxide BUN Creatinine Glucose POC Glucose Calcium Phosphorus Magnesium AST ALT Total Creatine Kinase CK-MB (CK-2) Troponin T Total Protein Albumin Triglycerides Cholesterol LDL Cholesterol Direct HDL Cholesterol Arterial Blood Glucose 144 H Arterial Blood Ionized Calcium Urine Creatinine Urine Total Protein
[2021-04-26] MEDS: methylPREDNISolone Sod Suc 1,000 MG in SODIUM CHLORIDE 0.9% 250ML 250 ML IV SCH (11:57)
[2021-04-26] MEDS ORDERED: FUROSEMIDE 40 MG/4 ML INJ IV ONE (12:00)
--- NOTE | 2021-04-26 12:22 | Progress Note ---
<IAIN JOVEL Babita - Last Filed: 04/26/21 12:23> Assessment and Plan Assessment and plan: Per ER... 04-21 The patient is a 66-year-old female present with a chief complaint of altered mental status. Per EMS the patient has a history of previous CVA with left- sided weakness. Family reported that the patient developed increased left-sided weakness 3 days ago. The patient was taken to the emergency department but refused to be seen so family brought the patient back home. The following day the patient "stopped speaking" and family eventually brought the patient into the ED today as there was no improvement. Patient opens her eyes to sternal rub and answers some questions but appears confused. First oxygen saturation in ER was 69%. Pt intubated for airway protection and hypoxia believed to be due to unprotected airway post seizure. Pt was ER hold and arrived to ICU overnight PMH HTN HLD CVA 2 Y AGO with left sided residual weakness NOK daughter (see previous encounter note 07/2019) NO ACUTE EVENTS OVERNIGHT NEURO hx CVA with l sided weakness; new onset sz new onset sz UDS neg on admit neuro following LUE with spasticity and contraction of l hand; noted pt flexing legs; PERRL; no commands CT head on admit- IMPRESSION: Encephalomalacia in the right temporal lobe, frontal lobe; no acute/subacute parenchymal lesions MRI Encephalomalacia in the right cerebral hemisphere - see report on keppra daily SAT limited by hypoxia RAAS goal neg 4 propofol ativan PRN ok to use pressors to keep sedsted per Dr Arrington family updated on plan of care case management following CV: hx htn on norvasc at home per EMR asa/statin echo 04/22 see report SR-ST no pressors RESP acute resp failure with PE on CTA; refractory hypoxia intubated in ER; remains ventilated see EMR for titration CT noted - a/c lung disease evident with LPA PE's noted remains hypoxic but with some improvement covid pending US BLE neg chest xray no focal consolidation- diffuse fibrotic disease remains hypoxic on high levels of PEEP and 100% will inc sedation diuresis GI -diarrhea TF nutrition following PPI bowel reg decreased today for diarrhea may need d/c with fiber supplement if that fails consider elemental TF no cdiff needed per Dr Giselle JOHN-LIZBETH/rhabdo sp jitendra corral strict I/O pt net pos 1.4 L over the last 24 hours trend and replace electrolytes as needed trend BUN/CR/CK nephrology following HEME- PE VTE on hep for PE heparin drip for known PE trending coags/Xa trend CBC no bleeding on exam LE dopplers completed- results pending ID- nap covid pending follow cultures 04/21 sputum culture afebrile no antibiotics at this time are indicated continue to trend temp and WBC curve ENDO stress hyperglycemia blood glucose monitoring avoid hypoglycemia The high probability of a clinically significant, sudden or life threatening deterioration of the [respiratory] system(s) required my full and direct attention, intervention and personal management. The aggregate critical care time was [45] minutes. This time is in addition to time spent performing reporte d procedures but includes the following: [x] Data Review and interpretation [x] Patient assessment and monitoring of vital signs [x] Documentation [x] Medication orders and management Disposition Plan: tbd Total Time Spent with Patient (Minutes): 60 History Interval history: no acute overnight events Hospitalist Physical - Constitutional Vitals: Temp Pulse Resp BP Pulse Ox 97.5 F L 73 20 158/95 91 04/26/21 07:36 04/26/21 11:40 04/26/21 11:40 04/26/21 11:40 04/26/21 11:40 General appearance: Present: no acute distress, well-nourished, other (Sedated on vent) - EENT Eyes: Present: PERRL ENT: clear oral mucosa - Neck Neck: Present: supple - Respiratory Respiratory effort: normal - Cardiovascular Rhythm: regular Heart Sounds: Present: S1 & S2 - Extremities Extremities: no ischemia Peripheral Pulses: within normal limits - Abdominal General gastrointestinal: soft - Integumentary Integumentary: Present: clear, warm - Psychiatric Psychiatric: other - Neurologic Neurologic: other - Allied Health Allied health notes reviewed: nursing, social work, case management HEART Score - HEART Score Age: 45-65 Risk factors: 1-2 risk factors Troponin: Troponin T 0.055 ng/mL (0.00-0.029) H 04/21/21 16:32 - Critical Actions Critical Actions: 0-3 pts:0.9-1.7%risk of adverse cardiac event.Candidate for discharge Results - Labs CBC & Chem 7: 04/26/21 06:13 04/25/21 07:42 Labs: Laboratory Last Values WBC 7.8 K/mm3 (4.5-11.0) 04/24/21 10:00 RBC 3.84 M/mm3 (3.65-5.03) 04/24/21 10:00 Hgb 10.4 gm/dl (10.1-14.3) 04/26/21 06:13 Hct 33.2 % (30.3-42.9) 04/26/21 06:13 MCV 95 fl (79-97) 04/24/21 10:00 MCH 31 pg (28-32) 04/24/21 10:00 MCHC 32 % (30-34) 04/24/21 10:00 RDW 16.0 % (13.2-15.2) H 04/24/21 10:00 Plt Count 285 K/mm3 (140-440) 04/26/21 06:13 Lymph % (Auto) 12.0 % (13.4-35.0) L 04/22/21 05:29 [place] % (Auto) 8.0 % (0.0-7.3) H 04/22/21 05:29 Eos % (Auto) 3.0 % (0.0-4.3) 04/22/21 05:29 Baso % (Auto) 0.7 % (0.0-1.8) 04/22/21 05:29 Lymph # (Auto) 1.1 K/mm3 (1.2-5.4) L 04/22/21 05:29 [place] # (Auto) 0.7 K/mm3 (0.0-0.8) 04/22/21 05:29 Eos # (Auto) 0.3 K/mm3 (0.0-0.4) 04/22/21 05:29 Baso # (Auto) 0.1 K/mm3 (0.0-0.1) 04/22/21 05:29 Add Manual Diff Complete 04/21/21 16:32 Total Counted 100 04/21/21 16:32 Seg Neutrophils % 76.3 % (40.0-70.0) H 04/22/21 05:29 Seg Neuts % (Manual) 79.0 % (40.0-70.0) H 04/21/21 16:32 Lymphocytes % (Manual) 13.0 % (13.4-35.0) L 04/21/21 16:32 Monocytes % (Manual) 8.0 % (0.0-7.3) H 04/21/21 16:32 Nucleated RBC % Not Reportable 04/21/21 16:32 Seg Neutrophils # 6.7 K/mm3 (1.8-7.7) 04/22/21 05:29 Seg Neutrophils # Man 6.6 K/mm3 (1.8-7.7) 04/21/21 16:32 Band Neutrophils # 0.0 K/mm3 04/21/21 16:32 Lymphocytes # (Manual) 1.1 K/mm3 (1.2-5.4) L 04/21/21 16:32 Abs React Lymphs (Man) 0.0 K/mm3 04/21/21 16:32 Monocytes # (Manual) 0.7 K/mm3 (0.0-0.8) 04/21/21 16:32 Eosinophils # (Manual) 0.0 K/mm3 (0.0-0.4) 04/21/21 16:32 Basophils # (Manual) 0.0 K/mm3 (0.0-0.1) 04/21/21 16:32 Metamyelocytes # 0.0 K/mm3 04/21/21 16:32 Myelocytes # 0.0 K/mm3 04/21/21 16:32 Promyelocytes # 0.0 K/mm3 04/21/21 16:32 Blast Cells # 0.0 K/mm3 04/21/21 16:32 WBC Morphology Not Reportable 04/21/21 16:32 Hypersegmented Neuts Not Reportable 04/21/21 16:32 Hyposegmented Neuts Not Reportable 04/21/21 16:32 Hypogranular Neuts Not Reportable 04/21/21 16:32 Smudge Cells Not Reportable 04/21/21 16:32 Toxic Granulation Not Reportable 04/21/21 16:32 Toxic Vacuolation Not Reportable 04/21/21 16:32 Dohle Bodies Not Reportable 04/21/21 16:32 Pelger-Huet Anomaly Not Reportable 04/21/21 16:32 Brenda Rods Not Reportable 04/21/21 16:32 Platelet Estimate Consistent w auto 04/21/21 16:32 Clumped Platelets Not Reportable 04/21/21 16:32 Plt Clumps, EDTA Not Reportable 04/21/21 16:32 Large Platelets Not Reportable 04/21/21 16:32 Giant Platelets Not Reportable 04/21/21 16:32 Platelet Satelliting Not Reportable 04/21/21 16:32 Plt Morphology Comment Not Reportable 04/21/21 16:32 RBC Morphology Not Reportable 04/21/21 16:32 Dimorphic RBCs Not Reportable 04/21/21 16:32 Polychromasia Not Reportable 04/21/21 16:32 Hypochromasia Not Reportable 04/21/21 16:32 Poikilocytosis Not Reportable 04/21/21 16:32 Anisocytosis 1+ 04/21/21 16:32 Microcytosis Not Reportable 04/21/21 16:32 Macrocytosis Not Reportable 04/21/21 16:32 Spherocytes Not Reportable 04/21/21 16:32 Pappenheimer Bodies Not Reportable 04/21/21 16:32 Sickle Cells Not Reportable 04/21/21 16:32 Target Cells Not Reportable 04/21/21 16:32 Tear Drop Cells Not Reportable 04/21/21 16:32 Ovalocytes Not Reportable 04/21/21 16:32 Helmet Cells Not Reportable 04/21/21 16:32 Pay[place]-Bailey Bodies Not Reportable 04/21/21 16:32 [place] Rings Not Reportable 04/21/21 16:32 [place] Cells Not Reportable 04/21/21 16:32 Bite Cells Not Reportable 04/21/21 16:32 Crenated Cell Not Reportable 04/21/21 16:32 Elliptocytes Not Reportable 04/21/21 16:32 Acanthocytes (Spur) Not Reportable 04/21/21 16:32 Rouleaux Not Reportable 04/21/21 16:32 Hemoglobin C Crystals Not Reportable 04/21/21 16:32 Schistocytes Not Reportable 04/21/21 16:32 Malaria parasites Not Reportable 04/21/21 16:32 Uli Bodies Not Reportable 04/21/21 16:32 Hem Pathologist Commnt No 04/21/21 16:32 PT 13.2 Sec. (12.2-14.9) 04/22/21 00:32 INR 0.95 (0.87-1.13) 04/22/21 00:32 APTT 29.2 Sec. (24.2-36.6) 04/22/21 00:32 D-Dimer 1522.26 ng/mlDDU (0-234) H 04/21/21 16:30 Heparin Anti-Xa Level 0.84 U.I./ml (0.3-0.7) H 04/24/21 10:14 ABG pH 7.407 (7.320-7.450) 04/26/21 05:22 POC ABG pCO2 38.9 mmHg (32.0-48.0) 04/26/21 05:22 ABG pCO2 46.0 mm Hg 04/22/21 17:30 POC ABG pO2 52.2 mmHg (83-108) L 04/26/21 05:22 ABG pO2 99.6 mm Hg (80.0-90.0) H 04/22/21 17:30 POC ABG HCO3 23.9 04/26/21 05:22 ABG HCO3 24.4 mmol/L (20.0-26.0) 04/22/21 17:30 ABG O2 Saturation 87.1 (0-100) 04/26/21 05:22 ABG O2 Content 19.9 (0.0-44) 04/22/21 17:30 POC ABG Base Excess -0.6 04/26/21 05:22 ABG Base Excess -1.6 mmol/L (-2.0-3.0) 04/22/21 17:30 ABG Hemoglobin 10.9 (12.0-17.5) L 04/26/21 05:22 ABG Oxyhemoglobin 86.5 (94-98) L 04/26/21 05:22 ABG Carboxyhemoglobin 0.9 % (0.0-5.0) 04/22/21 17:30 ABG Methemoglobin 0.3 (0.0-1.5) 04/26/21 05:22 ABG Sodium 144.7 mmol/L (136.0-145.0) 04/26/21 05:22 ABG Potassium 4.4 mmol/L (3.40-4.50) 04/26/21 05:22 ABG Chloride 114.0 mmol/L (98-107) H 04/26/21 05:22 ABG Glucose 144 mg/dL (65-95) H 04/26/21 05:22 Oxyhemoglobin 95.9 % (95.0-99.0) 04/22/21 17:30 Carboxyhemoglobin 0.4 (0.5-1.5) L 04/26/21 05:22 FiO2 100 % 04/22/21 17:30 FiO2 % 100.0 04/26/21 05:22 Sodium 146 mmol/L (137-145) H 04/25/21 07:42 Potassium 4.0 mmol/L (3.6-5.0) 04/25/21 07:42 Chloride 111.3 mmol/L (98-107) H 04/25/21 07:42 Carbon Dioxide 27 mmol/L (22-30) 04/25/21 07:42 Anion Gap 12 mmol/L 04/25/21 07:42 BUN 14 mg/dL (7-17) 04/25/21 07:42 Creatinine 0.9 mg/dL (0.6-1.2) 04/25/21 07:42 Estimated GFR > 60 ml/min 04/25/21 07:42 BUN/Creatinine Ratio 16 % 04/25/21 07:42 Glucose 128 mg/dL (65-100) H 04/25/21 07:42 POC Glucose 134 mg/dL (70-105) H 04/26/21 05:06 Calcium 9.2 mg/dL (8.4-10.2) 04/25/21 07:42 Phosphorus 2.90 mg/dL (2.5-4.5) D 04/25/21 07:42 Magnesium 2.40 mg/dL (1.7-2.3) H 04/24/21 10:00 Total Bilirubin 0.40 mg/dL (0.1-1.2) 04/24/21 10:00 AST 59 units/L (5-40) H 04/24/21 10:00 ALT 30 units/L (7-56) 04/24/21 10:00 Alkaline Phosphatase 83 units/L (35-129) 04/24/21 10:00 Ammonia 56.0 umol/L (25-60) 04/21/21 16:32 Total Creatine Kinase 396 units/L (30-135) H 04/24/21 10:00 CK-MB (CK-2) 22.4 ng/mL (0.0-4.0) H 04/21/21 16:32 CK-MB (CK-2) Rel Index 0.7 (0-4) 04/21/21 16:32 Troponin T 0.055 ng/mL (0.00-0.029) H 04/21/21 16:32 Total Protein 5.5 g/dL (6.3-8.2) L 04/24/21 10:00 Albumin 2.4 g/dL (3.9-5) L 04/24/21 10:00 Albumin/Globulin Ratio 0.8 % 04/24/21 10:00 Triglycerides 235 mg/dL (2-149) H 04/21/21 16:32 Cholesterol 220 mg/dL (50-199) H 04/21/21 16:32 LDL Cholesterol Direct 142 mg/dL (50-130) H 04/21/21 16:32 HDL Cholesterol 36 mg/dL (40-59) L 04/21/21 16:32 Cholesterol/HDL Ratio 6.11 % 04/21/21 16:32 TSH 0.876 mlU/mL (0.270-4.200) 04/21/21 16:32 Free T4 1.05 ng/dL (0.76-1.46) 04/21/21 16:32 Arterial Blood Glucose 144 mg/dL (65-95) H 04/26/21 05:22 Arterial Blood Ionized Calcium 5.0 mg/dL (4.6-5.3) 04/26/21 05:22 Urine Color Yellow (Yellow) 04/21/21 Unknown Urine Turbidity Clear (Clear) 04/21/21 Unknown Urine pH 5.0 (5.0-7.0) 04/21/21 Unknown Ur Specific [place] 1.014 (1.003-1.030) 04/21/21 Unknown Urine Protein 100 mg/dl mg/dL (Negative) 04/21/21 Unknown Urine Glucose (UA) Neg mg/dL (Negative) 04/21/21 Unknown Urine Ketones Tr mg/dL (Negative) 04/21/21 Unknown Urine Blood Lg (Negative) 04/21/21 Unknown Urine Nitrite Neg (Negative) 04/21/21 Unknown Urine Bilirubin Neg (Negative) 04/21/21 Unknown Urine Urobilinogen 2.0 mg/dL (<2.0) 04/21/21 Unknown Ur Leukocyte Esterase Neg (Negative) 04/21/21 Unknown Urine WBC (Auto) 5.0 /HPF (0.0-6.0) 04/21/21 Unknown Urine RBC (Auto) 1.0 /HPF (0.0-6.0) 04/21/21 Unknown U Epithel Cells (Auto) 1.0 /HPF (0-13.0) 04/21/21 Unknown Urine Mucus Few /HPF 04/21/21 Unknown Urine Creatinine 138.9 mg/dL (0.1-20.0) H 04/22/21 13:03 Urine Total Protein 86 mg/dL (5-11.8) H 04/22/21 13:03 Urine Opiates Screen Negative 04/21/21 Unknown Urine Methadone Screen Negative 04/21/21 Unknown Ur Barbiturates Screen Negative 04/21/21 Unknown Ur Phencyclidine Scrn Negative 04/21/21 Unknown Ur Amphetamines Screen Negative 04/21/21 Unknown U Benzodiazepines Scrn Negative 04/21/21 Unknown Urine Cocaine Screen Negative 04/21/21 Unknown U Marijuana (THC) Screen Negative 04/21/21 Unknown Drugs of Abuse Note Disclamer 04/21/21 Unknown Plasma/Serum Alcohol < 0.01 % (0-0.07) 04/21/21 16:32 Coronavirus (PCR) Negative (Negative) 04/23/21 Unknown [place]/IV: Voiding Method Incontinent Active Medications - Current Medications Current Medications: Generic Name Dose Route Start Last Admin Trade Name Freq PRN Reason Stop Dose Admin Acetaminophen 650 mg 04/21/21 21:11 Acetaminophen 325 Mg Tab PO Q4H PRN Pain MILD(1-3)/Fever >100.5/DICKINSON Lipase/Protease/Amylase 1 each 04/22/21 10:51 Lipase 10,500/Protease 25,000/Amylase 43,750 (Units) Dr Ryan FEEDTUBE PRN PRN For Clogged Feeding Tube Enoxaparin Sodium 80 mg 04/24/21 14:00 04/26/21 02:15 Enoxaparin 80 Mg/0.8 Ml Inj SUB-Q 80 mg Q12H MINOR Administration Famotidine 20 mg 04/24/21 10:00 04/26/21 09:34 Famotidine 20 Mg Tab PO 20 mg BID MINOR Administration Hydrophilic Ointment 1 applic 04/21/21 15:46 Lip Therapy Vaseline TP Q2HR PRN Dry Lips Fentanyl Citrate 2,000 mcg in 100 mls @ 3.515 mls/hr 04/21/21 16:00 04/26/21 08:05 Fentanyl Drip Premix IV 4 mcg/kg/hr TITR MINOR 14.061 mls/hr Administration Protocol 1 MCG/KG/HR Dexmedetomidine HCl 400 mcg/ 104 mls @ 4.144 mls/hr 04/25/21 06:00 04/26/21 09:35 Sodium Chloride IV 0.7 mcg/kg/hr TITRATE MINOR 14.505 mls/hr Administration Protocol 0.2 MCG/KG/HR Methylprednisolone Sodium 250 mls @ 250 mls/hr 04/25/21 11:00 04/26/21 11:57 Succinate 1,000 mg/ Sodium IV 04/27/21 11:59 250 mls/hr Chloride Q24H MINOR Administration Propofol 1,000 mg in 100 mls @ 2.19 mls/hr 04/26/21 11:00 04/26/21 11:59 Diprivan 10 Mg/Ml IV 5 mcg/kg/min TITR MINOR 2.19 mls/hr Administration Protocol 5 MCG/KG/MIN Levetiracetam 750 mg 04/25/21 10:00 04/26/21 09:34 Levetiracetam 500 Mg/5 Ml Oral Liqd PO 750 mg BID MINOR Administration Lorazepam 2 mg 04/26/21 10:55 Lorazepam 2 Mg/Ml Vial IV Q4H PRN Agitation Methylprednisolone Sodium Succinate 60 mg 04/28/21 06:00 Methylprednisolone Sod Succinate 40 Mg/1 Ml Inj IV Q6H MINOR Multi-Ingred Cream/Lotion/Oil/Oint 1 applic 04/21/21 15:46 Mineral Oil/Petrolatum, White Ophth Oint 3.5 Gm OU Q4HR PRN Dry Eye(s) Ondansetron HCl 4 mg 04/26/21 06:15 Ondansetron 4 Mg/2 Ml Inj IV Q6HR PRN Nausea And Vomiting Senna/Docusate Sodium 1 tab 04/26/21 22:00 Sennosides/Docusate Sodium 8.6/50 Mg Tab FEEDTUBE QHS MINOR Simple Syrup 15 ml 04/22/21 10:51 Simple Syrup 15 Ml FEEDTUBE PRN PRN Hypoglycemia Simple Syrup 30 ml 04/22/21 10:51 Simple Syrup 15 Ml FEEDTUBE PRN PRN Hypoglycemia Sodium Bicarbonate 325 mg 04/22/21 10:51 Sodium Bicarbonate 325 Mg Tab FEEDTUBE PRN PRN For Clogged Feeding Tube Sodium Chloride 10 ml 04/21/21 22:00 04/26/21 09:34 Sodium Chloride 0.9% 10 Ml Flush Syringe IV 10 ml BID MINOR Administration Sodium Chloride 10 ml 04/21/21 21:11 Sodium Chloride 0.9% 10 Ml Flush Syringe IV PRN PRN LINE FLUSH Nutrition/Malnutrition Assess - Dietary Evaluation Nutrition/Malnutrition Findings: Nutrition Notes Start: 04/22/21 10:45 Freq: Status: Active Protocol: Document 04/24/21 14:58 [facility] (Rec: 04/24/21 15:04 NHALL [email or web address]) Nutrition Notes Initial or Follow up Reassessment Current Diagnosis Acute Kidney Injury, Hypertension,Stroke, Hyperlipidemia Other Pertinent Diagnosis New onset seizures, AMS, pulmonary embolism Current Diet TF - Nepro 35ml/hr Labs/Tests reviewed Pertinent Medications reviewed Height 5 ft 9 in Weight 79.7 kg [place] Body Weight (kg) 65.90 BMI 25.9 Weight change and time frame wt change noted Weight Status Appropriate Subjective/Other Information Per RN, pt tolerating TF at goal rate. Pt remains on vent support. Percent of energy/protein needs met: 89% energy 71% pro Burn Absent Trauma Absent #1 Nutrition Diagnosis Inadequate oral intake Diagnosis Progress(for reassessment Continues documentation) Is patient on ventilator? Yes Is Patient Ambulatory and/or Out of Bed No REE-([place]-St. Jeor-confined to bed) 8172.840 Calculation Used for Recommendations [place]-St Jeor Additional Notes Pro needs 1.2-2g/k-159g/ day Fluid needs 1ml/kcal Nutrition Intervention Nutrition Support: Continue Nepro at 35ml/hr with 150ml water flush q4h. Kcal 1,512 Protein (gm) 68 Carbohydrates (gm) 135 Fat (gm) 81 Fluid (mL) 611 Fiber (gm) 11 Goal #1 TF tolerance Goal #2 TF to meet at least 75% energy and pro needs Follow-Up By: 05/01/21 Additional Comments F/U: stable TF, vent status, wt - Attestation Statement I have reviewed and agreed w/ Malnutrition eval & tx plan: Yes <TAMIKA HERRERA - Last Filed: 04/26/21 19:02> Hospitalist Physical - Constitutional Vitals: Temp Pulse Resp BP Pulse Ox 97.8 F 66 14 166/96 93 04/26/21 16:00 04/26/21 18:30 04/26/21 18:30 04/26/21 18:30 04/26/21 18:30 HEART Score - HEART Score Troponin: Troponin T 0.055 ng/mL (0.00-0.029) H 04/21/21 16:32 Results - Labs CBC & Chem 7: 04/26/21 06:13 04/25/21 07:42 Labs: Laboratory Last Values WBC 7.8 K/mm3 (4.5-11.0) 04/24/21 10:00 RBC 3.84 M/mm3 (3.65-5.03) 04/24/21 10:00 Hgb 10.4 gm/dl (10.1-14.3) 04/26/21 06:13 Hct 33.2 % (30.3-42.9) 04/26/21 06:13 MCV 95 fl (79-97) 04/24/21 10:00 MCH 31 pg (28-32) 04/24/21 10:00 MCHC 32 % (30-34) 04/24/21 10:00 RDW 16.0 % (13.2-15.2) H 04/24/21 10:00 Plt Count 285 K/mm3 (140-440) 04/26/21 06:13 Lymph % (Auto) 12.0 % (13.4-35.0) L 04/22/21 05:29 [place] % (Auto) 8.0 % (0.0-7.3) H 04/22/21 05:29 Eos % (Auto) 3.0 % (0.0-4.3) 04/22/21 05:29 Baso % (Auto) 0.7 % (0.0-1.8) 04/22/21 05:29 Lymph # (Auto) 1.1 K/mm3 (1.2-5.4) L 04/22/21 05:29 [place] # (Auto) 0.7 K/mm3 (0.0-0.8) 04/22/21 05:29 Eos # (Auto) 0.3 K/mm3 (0.0-0.4) 04/22/21 05:29 Baso # (Auto) 0.1 K/mm3 (0.0-0.1) 04/22/21 05:29 Add Manual Diff Complete 04/21/21 16:32 Total Counted 100 04/21/21 16:32 Seg Neutrophils % 76.3 % (40.0-70.0) H 04/22/21 05:29 Seg Neuts % (Manual) 79.0 % (40.0-70.0) H 04/21/21 16:32 Lymphocytes % (Manual) 13.0 % (13.4-35.0) L 04/21/21 16:32 Monocytes % (Manual) 8.0 % (0.0-7.3) H 04/21/21 16:32 Nucleated RBC % Not Reportable 04/21/21 16:32 Seg Neutrophils # 6.7 K/mm3 (1.8-7.7) 04/22/21 05:29 Seg Neutrophils # Man 6.6 K/mm3 (1.8-7.7) 04/21/21 16:32 Band Neutrophils # 0.0 K/mm3 04/21/21 16:32 Lymphocytes # (Manual) 1.1 K/mm3 (1.2-5.4) L 04/21/21 16:32 Abs React Lymphs (Man) 0.0 K/mm3 04/21/21 16:32 Monocytes # (Manual) 0.7 K/mm3 (0.0-0.8) 04/21/21 16:32 Eosinophils # (Manual) 0.0 K/mm3 (0.0-0.4) 04/21/21 16:32 Basophils # (Manual) 0.0 K/mm3 (0.0-0.1) 04/21/21 16:32 Metamyelocytes # 0.0 K/mm3 04/21/21 16:32 Myelocytes # 0.0 K/mm3 04/21/21 16:32 Promyelocytes # 0.0 K/mm3 04/21/21 16:32 Blast Cells # 0.0 K/mm3 04/21/21 16:32 WBC Morphology Not Reportable 04/21/21 16:32 Hypersegmented Neuts Not Reportable 04/21/21 16:32 Hyposegmented Neuts Not Reportable 04/21/21 16:32 Hypogranular Neuts Not Reportable 04/21/21 16:32 Smudge Cells Not Reportable 04/21/21 16:32 Toxic Granulation Not Reportable 04/21/21 16:32 Toxic Vacuolation Not Reportable 04/21/21 16:32 Dohle Bodies Not Reportable 04/21/21 16:32 Pelger-Huet Anomaly Not Reportable 04/21/21 16:32 Brenda Rods Not Reportable 04/21/21 16:32 Platelet Estimate Consistent w auto 04/21/21 16:32 Clumped Platelets Not Reportable 04/21/21 16:32 Plt Clumps, EDTA Not Reportable 04/21/21 16:32 Large Platelets Not Reportable 04/21/21 16:32 Giant Platelets Not Reportable 04/21/21 16:32 Platelet Satelliting Not Reportable 04/21/21 16:32 Plt Morphology Comment Not Reportable 04/21/21 16:32 RBC Morphology Not Reportable 04/21/21 16:32 Dimorphic RBCs Not Reportable 04/21/21 16:32 Polychromasia Not Reportable 04/21/21 16:32 Hypochromasia Not Reportable 04/21/21 16:32 Poikilocytosis Not Reportable 04/21/21 16:32 Anisocytosis 1+ 04/21/21 16:32 Microcytosis Not Reportable 04/21/21 16:32 Macrocytosis Not Reportable 04/21/21 16:32 Spherocytes Not Reportable 04/21/21 16:32 Pappenheimer Bodies Not Reportable 04/21/21 16:32 Sickle Cells Not Reportable 04/21/21 16:32 Target Cells Not Reportable 04/21/21 16:32 Tear Drop Cells Not Reportable 04/21/21 16:32 Ovalocytes Not Reportable 04/21/21 16:32 Helmet Cells Not Reportable 04/21/21 16:32 [place]-Bailey Bodies Not Reportable 04/21/21 16:32 [place] Rings Not Reportable 04/21/21 16:32 [place] Cells Not Reportable 04/21/21 16:32 Bite Cells Not Reportable 04/21/21 16:32 Crenated Cell Not Reportable 04/21/21 16:32 Elliptocytes Not Reportable 04/21/21 16:32 Acanthocytes (Spur) Not Reportable 04/21/21 16:32 Rouleaux Not Reportable 04/21/21 16:32 Hemoglobin C Crystals Not Reportable 04/21/21 16:32 Schistocytes Not Reportable 04/21/21 16:32 Malaria parasites Not Reportable 04/21/21 16:32 Uli Bodies Not Reportable 04/21/21 16:32 Hem Pathologist Commnt No 04/21/21 16:32 PT 13.2 Sec. (12.2-14.9) 04/22/21 00:32 INR 0.95 (0.87-1.13) 04/22/21 00:32 APTT 29.2 Sec. (24.2-36.6) 04/22/21 00:32 D-Dimer 1522.26 ng/mlDDU (0-234) H 04/21/21 16:30 Heparin Anti-Xa Level 0.84 U.I./ml (0.3-0.7) H 04/24/21 10:14 ABG pH 7.395 (7.320-7.450) 04/26/21 14:09 POC ABG pCO2 44.5 mmHg (32.0-48.0) 04/26/21 14:09 ABG pCO2 46.0 mm Hg 04/22/21 17:30 POC ABG pO2 55.3 mmHg (83-108) L 04/26/21 14:09 ABG pO2 99.6 mm Hg (80.0-90.0) H 04/22/21 17:30 POC ABG HCO3 26.6 04/26/21 14:09 ABG HCO3 24.4 mmol/L (20.0-26.0) 04/22/21 17:30 ABG O2 Saturation 87.9 (0-100) 04/26/21 14:09 ABG O2 Content 19.9 (0.0-44) 04/22/21 17:30 POC ABG Base Excess 1.4 04/26/21 14:09 ABG Base Excess -1.6 mmol/L (-2.0-3.0) 04/22/21 17:30 ABG Hemoglobin 11.6 (12.0-17.5) L 04/26/21 14:09 ABG Oxyhemoglobin 87.2 (94-98) L 04/26/21 14:09 ABG Carboxyhemoglobin 0.9 % (0.0-5.0) 04/22/21 17:30 ABG Methemoglobin 0.3 (0.0-1.5) 04/26/21 14:09 ABG Sodium 146.6 mmol/L (136.0-145.0) H 04/26/21 14:09 ABG Potassium 4.4 mmol/L (3.40-4.50) 04/26/21 14:09 ABG Chloride 111.0 mmol/L (98-107) H 04/26/21 14:09 ABG Glucose 165 mg/dL (65-95) H 04/26/21 14:09 Oxyhemoglobin 95.9 % (95.0-99.0) 04/22/21 17:30 Carboxyhemoglobin 0.5 (0.5-1.5) 04/26/21 14:09 FiO2 100 % 04/22/21 17:30 FiO2 % 100.0 04/26/21 14:09 Sodium 146 mmol/L (137-145) H 04/25/21 07:42 Potassium 4.0 mmol/L (3.6-5.0) 04/25/21 07:42 Chloride 111.3 mmol/L (98-107) H 04/25/21 07:42 Carbon Dioxide 27 mmol/L (22-30) 04/25/21 07:42 Anion Gap 12 mmol/L 04/25/21 07:42 BUN 14 mg/dL (7-17) 04/25/21 07:42 Creatinine 0.9 mg/dL (0.6-1.2) 04/25/21 07:42 Estimated GFR > 60 ml/min 04/25/21 07:42 BUN/Creatinine Ratio 16 % 04/25/21 07:42 Glucose 128 mg/dL (65-100) H 04/25/21 07:42 POC Glucose 161 mg/dL (70-105) H 04/26/21 18:42 Calcium 9.2 mg/dL (8.4-10.2) 04/25/21 07:42 Phosphorus 2.90 mg/dL (2.5-4.5) D 04/25/21 07:42 Magnesium 2.40 mg/dL (1.7-2.3) H 04/24/21 10:00 Total Bilirubin 0.40 mg/dL (0.1-1.2) 04/24/21 10:00 AST 59 units/L (5-40) H 04/24/21 10:00 ALT 30 units/L (7-56) 04/24/21 10:00 Alkaline Phosphatase 83 units/L (35-129) 04/24/21 10:00 Ammonia 56.0 umol/L (25-60) 04/21/21 16:32 Total Creatine Kinase 396 units/L (30-135) H 04/24/21 10:00 CK-MB (CK-2) 22.4 ng/mL (0.0-4.0) H 04/21/21 16:32 CK-MB (CK-2) Rel Index 0.7 (0-4) 04/21/21 16:32 Troponin T 0.055 ng/mL (0.00-0.029) H 04/21/21 16:32 Total Protein 5.5 g/dL (6.3-8.2) L 04/24/21 10:00 Albumin 2.4 g/dL (3.9-5) L 04/24/21 10:00 Albumin/Globulin Ratio 0.8 % 04/24/21 10:00 Triglycerides 235 mg/dL (2-149) H 04/21/21 16:32 Cholesterol 220 mg/dL (50-199) H 04/21/21 16:32 LDL Cholesterol Direct 142 mg/dL (50-130) H 04/21/21 16:32 HDL Cholesterol 36 mg/dL (40-59) L 04/21/21 16:32 Cholesterol/HDL Ratio 6.11 % 04/21/21 16:32 TSH 0.876 mlU/mL (0.270-4.200) 04/21/21 16:32 Free T4 1.05 ng/dL (0.76-1.46) 04/21/21 16:32 Arterial Blood Glucose 165 mg/dL (65-95) H 04/26/21 14:09 Arterial Blood Ionized Calcium 5.0 mg/dL (4.6-5.3) 04/26/21 14:09 Urine Color Yellow (Yellow) 04/21/21 Unknown Urine Turbidity Clear (Clear) 04/21/21 Unknown Urine pH 5.0 (5.0-7.0) 04/21/21 Unknown Ur Specific [place] 1.014 (1.003-1.030) 04/21/21 Unknown Urine Protein 100 mg/dl mg/dL (Negative) 04/21/21 Unknown Urine Glucose (UA) Neg mg/dL (Negative) 04/21/21 Unknown Urine Ketones Tr mg/dL (Negative) 04/21/21 Unknown Urine Blood Lg (Negative) 04/21/21 Unknown Urine Nitrite Neg (Negative) 04/21/21 Unknown Urine Bilirubin Neg (Negative) 04/21/21 Unknown Urine Urobilinogen 2.0 mg/dL (<2.0) 04/21/21 Unknown Ur Leukocyte Esterase Neg (Negative) 04/21/21 Unknown Urine WBC (Auto) 5.0 /HPF (0.0-6.0) 04/21/21 Unknown Urine RBC (Auto) 1.0 /HPF (0.0-6.0) 04/21/21 Unknown U Epithel Cells (Auto) 1.0 /HPF (0-13.0) 04/21/21 Unknown Urine Mucus Few /HPF 04/21/21 Unknown Urine Creatinine 138.9 mg/dL (0.1-20.0) H 04/22/21 13:03 Urine Total Protein 86 mg/dL (5-11.8) H 04/22/21 13:03 Urine Opiates Screen Negative 04/21/21 Unknown Urine Methadone Screen Negative 04/21/21 Unknown Ur Barbiturates Screen Negative 04/21/21 Unknown Ur Phencyclidine Scrn Negative 04/21/21 Unknown Ur Amphetamines Screen Negative 04/21/21 Unknown U Benzodiazepines Scrn Negative 04/21/21 Unknown Urine Cocaine Screen Negative 04/21/21 Unknown U Marijuana (THC) Screen Negative 04/21/21 Unknown Drugs of Abuse Note Disclamer 04/21/21 Unknown Plasma/Serum Alcohol < 0.01 % (0-0.07) 04/21/21 16:32 Coronavirus (PCR) Negative (Negative) 04/23/21 Unknown [place]/IV: Voiding Method External Female Catheter Active Medications - Current Medications Current Medications: Generic Name Dose Route Start Last Admin Trade Name Freq PRN Reason Stop Dose Admin Acetaminophen 650 mg 04/21/21 21:11 Acetaminophen 325 Mg Tab PO Q4H PRN Pain MILD(1-3)/Fever >100.5/DICKINSON Lipase/Protease/Amylase 1 each 04/22/21 10:51 Lipase 10,500/Protease 25,000/Amylase 43,750 (Units) Dr Ryan FEEDTUBE PRN PRN For Clogged Feeding Tube Enoxaparin Sodium 80 mg 04/24/21 14:00 04/26/21 14:02 Enoxaparin 80 Mg/0.8 Ml Inj SUB-Q 80 mg Q12H MINOR Administration Famotidine 20 mg 04/24/21 10:00 04/26/21 09:34 Famotidine 20 Mg Tab PO 20 mg BID MINOR Administration Hydrophilic Ointment 1 applic 04/21/21 15:46 Lip Therapy Vaseline TP Q2HR PRN Dry Lips Fentanyl Citrate 2,000 mcg in 100 mls @ 3.515 mls/hr 04/21/21 16:00 04/26/21 14:12 Fentanyl Drip Premix IV 4 mcg/kg/hr TITR MINOR 14.061 mls/hr Administration Protocol 1 MCG/KG/HR Dexmedetomidine HCl 400 mcg/ 104 mls @ 4.144 mls/hr 04/25/21 06:00 04/26/21 17:42 Sodium Chloride IV 1 mcg/kg/hr TITRATE MINOR 20.722 mls/hr Administration Protocol 0.2 MCG/KG/HR Methylprednisolone Sodium 250 mls @ 250 mls/hr 04/25/21 11:00 04/26/21 11:57 Succinate 1,000 mg/ Sodium IV 04/27/21 11:59 250 mls/hr Chloride Q24H MINOR Administration Propofol 1,000 mg in 100 mls @ 2.19 mls/hr 04/26/21 11:00 04/26/21 12:55 Diprivan 10 Mg/Ml IV 10 mcg/kg/min TITR MINOR 4.38 mls/hr Titration Protocol 5 MCG/KG/MIN Levetiracetam 750 mg 04/25/21 10:00 04/26/21 09:34 Levetiracetam 500 Mg/5 Ml Oral Liqd PO 750 mg BID MINOR Administration Lorazepam 2 mg 04/26/21 10:55 Lorazepam 2 Mg/Ml Vial IV Q4H PRN Agitation Methylprednisolone Sodium Succinate 60 mg 04/28/21 06:00 Methylprednisolone Sod Succinate 40 Mg/1 Ml Inj IV Q6H MINOR Multi-Ingred Cream/Lotion/Oil/Oint 1 applic 04/21/21 15:46 Mineral Oil/Petrolatum, White Ophth Oint 3.5 Gm OU Q4HR PRN Dry Eye(s) Ondansetron HCl 4 mg 04/26/21 06:15 Ondansetron 4 Mg/2 Ml Inj IV Q6HR PRN Nausea And Vomiting Senna/Docusate Sodium 1 tab 04/26/21 22:00 Sennosides/Docusate Sodium 8.6/50 Mg Tab FEEDTUBE QHS MINOR Simple Syrup 15 ml 04/22/21 10:51 Simple Syrup 15 Ml FEEDTUBE PRN PRN Hypoglycemia Simple Syrup 30 ml 04/22/21 10:51 Simple Syrup 15 Ml FEEDTUBE PRN PRN Hypoglycemia Sodium Bicarbonate 325 mg 04/22/21 10:51 Sodium Bicarbonate 325 Mg Tab FEEDTUBE PRN PRN For Clogged Feeding Tube Sodium Chloride 10 ml 04/21/21 22:00 04/26/21 09:34 Sodium Chloride 0.9% 10 Ml Flush Syringe IV 10 ml BID MINOR Administration Sodium Chloride 10 ml 04/21/21 21:11 Sodium Chloride 0.9% 10 Ml Flush Syringe IV PRN PRN LINE FLUSH Nutrition/Malnutrition Assess - Dietary Evaluation Nutrition/Malnutrition Findings: Nutrition Notes Start: 04/22/21 10:45 Freq: Status: Active Protocol: Document 04/24/21 14:58 [facility]Rec: 04/24/21 15:04 [facility] [id number]) Nutrition Notes Initial or Follow up Reassessment Current Diagnosis Acute Kidney Injury, Hypertension,Stroke, Hyperlipidemia Other Pertinent Diagnosis New onset seizures, AMS, pulmonary embolism Current Diet TF - Nepro 35ml/hr Labs/Tests reviewed Pertinent Medications reviewed Height 5 ft 9 in Weight 79.7 kg [place] Body Weight (kg) 65.90 BMI 25.9 Weight change and time frame wt change noted Weight Status Appropriate Subjective/Other Information Per RN, pt tolerating TF at goal rate. Pt remains on vent support. Percent of energy/protein needs met: 89% energy 71% pro Burn Absent Trauma Absent #1 Nutrition Diagnosis Inadequate oral intake Diagnosis Progress(for reassessment Continues documentation) Is patient on ventilator? Yes Is Patient Ambulatory and/or Out of Bed No REE-([facility]-confined to bed) [phone] Calculation Used for Recommendations [facility] Additional Notes Pro needs 1.2-2g/k-159g/ day Fluid needs 1ml/kcal Nutrition Intervention Nutrition Support: Continue Nepro at 35ml/hr with 150ml water flush q4h. Kcal 1,512 Protein (gm) 68 Carbohydrates (gm) 135 Fat (gm) 81 Fluid (mL) 611 Fiber (gm) 11 Goal #1 TF tolerance Goal #2 TF to meet at least 75% energy and pro needs Follow-Up By: 05/01/21 Additional Comments F/U: stable TF, vent status, wt
[2021-04-26] MEDS: LORazepam 2 MG/ML VIAL IV PRN (20:48)
[2021-04-27] MEDS: LORazepam 2 MG/ML VIAL IV PRN (02:52)
[2021-04-27] MEDS: FREE WATER PO SCH ×5 (02:53→21:45)
[2021-04-27] MEDS: ENOXAPARIN 80 MG/0.8 ML INJ SUB-Q SCH ×2 (02:53→14:45)
[2021-04-27] MEDS: fentaNYL DRIP Premix 2,000 MCG/100 ML BAG IV SCH ×4 (02:57→21:48)
[2021-04-27 07:11] LABS: Hematocrit 34.2 % (30.3-42.9); Hemoglobin 11.2 gm/dl (10.1-14.3); Mean Corpuscular HGB Conc 33 % (30-34); Mean Corpuscular Volume 94 fl (79-97); Platelet Count 280 K/mm3 (140-440); Red Blood Count 3.64 M/mm3 (3.65-5.03); Red Cell Distribution Width 16.2 % (13.2-15.2)
[2021-04-27 07:37] LABS: Alanine Aminotransferase 38 units/L (7-56); Albumin 2.4 g/dL (3.9-5); BUN/Creatinine Ratio 39; Blood Urea Nitrogen 35 mg/dL (7-17); Calcium 9.5 mg/dL (8.4-10.2); Hemolysis Index 170
[2021-04-27] MEDS ORDERED: SODIUM POLYSTYRENE 15 GM/60 ML ORAL LIQD PO NR (08:34)
--- NOTE | 2021-04-27 08:38 | Progress Note ---
Assessment and Plan Assessment and plan: Per ER... 04-21 The patient is a 66-year-old female present with a chief complaint of altered mental status. Per EMS the patient has a history of previous CVA with left- sided weakness. Family reported that the patient developed increased left-sided weakness 3 days ago. The patient was taken to the emergency department but refused to be seen so family brought the patient back home. The following day the patient "stopped speaking" and family eventually brought the patient into the ED today as there was no improvement. Patient opens her eyes to sternal rub and answers some questions but appears confused. First oxygen saturation in ER was 69%. Pt intubated for airway protection and hypoxia believed to be due to unprotected airway post seizure. Pt was ER hold and arrived to ICU overnight PMH HTN HLD CVA 2 Y AGO with left sided residual weakness NOK daughter (see previous encounter note 07/2019) NO ACUTE EVENTS OVERNIGHT NEURO hx CVA with l sided weakness; new onset sz new onset sz UDS neg on admit neuro following LUE with spasticity and contraction of l hand; noted pt flexing legs; PERRL; no commands CT head on admit- IMPRESSION: Encephalomalacia in the right temporal lobe, frontal lobe; no acute/subacute parenchymal lesions MRI Encephalomalacia in the right cerebral hemisphere - see report on keppra daily SAT limited by hypoxia RAAS goal neg 4 propofol ativan PRN ok to use pressors to keep sedsted per Dr Arrington family updated on plan of care case management following CV: hx htn on norvasc at home per EMR asa/statin echo 04/22 see report SR-ST no pressors RESP acute resp failure with PE on CTA; refractory hypoxia intubated in ER; remains ventilated see EMR for titration CT noted - a/c lung disease evident with LPA PE's noted remains hypoxic but with some improvement covid pending US BLE neg chest xray no focal consolidation- diffuse fibrotic disease remains hypoxic on high levels of PEEP and 100% will inc sedation diuresis GI -diarrhea TF nutrition following PPI bowel reg decreased today for diarrhea may need d/c with fiber supplement if that fails consider elemental TF no cdiff needed per Dr Arrington -LIZBETH/rhabdo sp sz corral strict I/O pt net pos 1.4 L over the last 24 hours trend and replace electrolytes as needed trend BUN/CR/CK nephrology following HEME- PE VTE on hep for PE heparin drip for known PE trending coags/Xa trend CBC no bleeding on exam LE dopplers completed- results pending ID- nap covid pending follow cultures 04/21 sputum culture afebrile no antibiotics at this time are indicated continue to trend temp and WBC curve ENDO stress hyperglycemia blood glucose monitoring avoid hypoglycemia 04/27: Patient remains critically ill remains on the ventilator no purposeful movement he gets agitated when off agitation. We will give i a dose of Kayexalate considering hyperkalemia. Continue to monitor electrolytes and tight blood sugar control. The high probability of a clinically significant, sudden or life threatening deterioration of the [respiratory] system(s) required my full and direct attention, intervention and personal management. The aggregate critical care time was [45] minutes. This time is in addition to time spent performing reported procedures but includes the following: [x] Data Review and interpretation [x] Patient assessment and monitoring of vital signs [x] Documentation [x] Medication orders and management Disposition Plan: tbd History Interval history: Patient seen and examined, remains sedated, still with intermittent agitation was noted to have this started yesterday as a result requested to be addressed negative for by pulmonary. Hospitalist Physical - Physical exam Narrative exam: General appearance: Present: no acute distress, well-nourished, agitated, other (Sedated on vent) not following commands when awake - EENT Eyes: Present: PERRL ENT: clear oral mucosa - Neck Neck: Present: supple - Respiratory Respiratory effort: normal - Cardiovascular Rhythm: regular Heart Sounds: Present: S1 & S2 - Extremities Extremities: no ischemia Peripheral Pulses: within normal limits - Abdominal General gastrointestinal: soft - Integumentary Integumentary: Present: clear, warm, dry - Psychiatric Psychiatric: other - Neurologic Neurologic: other (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) - Constitutional Vitals: Temp Pulse Resp BP Pulse Ox 98.0 F 71 13 120/66 89 04/27/21 07:00 04/27/21 07:54 04/27/21 07:46 04/27/21 07:54 04/27/21 07:54 General appearance: Present: no acute distress, well-nourished, other (Sedated on vent) HEART Score - HEART Score Age: 45-65 Risk factors: 1-2 risk factors Troponin: Troponin T 0.055 ng/mL (0.00-0.029) H 04/21/21 16:32 - Critical Actions Critical Actions: 0-3 pts:0.9-1.7%risk of adverse cardiac event.Candidate for discharge Results - Labs CBC & Chem 7: 04/27/21 06:25 04/27/21 06:25 Labs: Laboratory Last Values WBC 9.1 K/mm3 (4.5-11.0) 04/27/21 06:25 RBC 3.64 M/mm3 (3.65-5.03) L 04/27/21 06:25 Hgb 11.2 gm/dl (10.1-14.3) 04/27/21 06:25 Hct 34.2 % (30.3-42.9) 04/27/21 06:25 MCV 94 fl (79-97) 04/27/21 06:25 MCH 31 pg (28-32) 04/27/21 06:25 MCHC 33 % (30-34) 04/27/21 06:25 RDW 16.2 % (13.2-15.2) H 04/27/21 06:25 Plt Count 280 K/mm3 (140-440) 04/27/21 06:25 Lymph % (Auto) 12.0 % (13.4-35.0) L 04/22/21 05:29 [place] % (Auto) 8.0 % (0.0-7.3) H 04/22/21 05:29 Eos % (Auto) 3.0 % (0.0-4.3) 04/22/21 05:29 Baso % (Auto) 0.7 % (0.0-1.8) 04/22/21 05:29 Lymph # (Auto) 1.1 K/mm3 (1.2-5.4) L 04/22/21 05:29 [place] # (Auto) 0.7 K/mm3 (0.0-0.8) 04/22/21 05:29 Eos # (Auto) 0.3 K/mm3 (0.0-0.4) 04/22/21 05:29 Baso # (Auto) 0.1 K/mm3 (0.0-0.1) 04/22/21 05:29 Add Manual Diff Complete 04/21/21 16:32 Total Counted 100 04/21/21 16:32 Seg Neutrophils % 76.3 % (40.0-70.0) H 04/22/21 05:29 Seg Neuts % (Manual) 79.0 % (40.0-70.0) H 04/21/21 16:32 Lymphocytes % (Manual) 13.0 % (13.4-35.0) L 04/21/21 16:32 Monocytes % (Manual) 8.0 % (0.0-7.3) H 04/21/21 16:32 Nucleated RBC % Not Reportable 04/21/21 16:32 Seg Neutrophils # 6.7 K/mm3 (1.8-7.7) 04/22/21 05:29 Seg Neutrophils # Man 6.6 K/mm3 (1.8-7.7) 04/21/21 16:32 Band Neutrophils # 0.0 K/mm3 04/21/21 16:32 Lymphocytes # (Manual) 1.1 K/mm3 (1.2-5.4) L 04/21/21 16:32 Abs React Lymphs (Man) 0.0 K/mm3 04/21/21 16:32 Monocytes # (Manual) 0.7 K/mm3 (0.0-0.8) 04/21/21 16:32 Eosinophils # (Manual) 0.0 K/mm3 (0.0-0.4) 04/21/21 16:32 Basophils # (Manual) 0.0 K/mm3 (0.0-0.1) 04/21/21 16:32 Metamyelocytes # 0.0 K/mm3 04/21/21 16:32 Myelocytes # 0.0 K/mm3 04/21/21 16:32 Promyelocytes # 0.0 K/mm3 04/21/21 16:32 Blast Cells # 0.0 K/mm3 04/21/21 16:32 WBC Morphology Not Reportable 04/21/21 16:32 Hypersegmented Neuts Not Reportable 04/21/21 16:32 Hyposegmented Neuts Not Reportable 04/21/21 16:32 Hypogranular Neuts Not Reportable 04/21/21 16:32 Smudge Cells Not Reportable 04/21/21 16:32 Toxic Granulation Not Reportable 04/21/21 16:32 Toxic Vacuolation Not Reportable 04/21/21 16:32 Dohle Bodies Not Reportable 04/21/21 16:32 Pelger-Huet Anomaly Not Reportable 04/21/21 16:32 Brenda Rods Not Reportable 04/21/21 16:32 Platelet Estimate Consistent w auto 04/21/21 16:32 Clumped Platelets Not Reportable 04/21/21 16:32 Plt Clumps, EDTA Not Reportable 04/21/21 16:32 Large Platelets Not Reportable 04/21/21 16:32 Giant Platelets Not Reportable 04/21/21 16:32 Platelet Satelliting Not Reportable 04/21/21 16:32 Plt Morphology Comment Not Reportable 04/21/21 16:32 RBC Morphology Not Reportable 04/21/21 16:32 Dimorphic RBCs Not Reportable 04/21/21 16:32 Polychromasia Not Reportable 04/21/21 16:32 Hypochromasia Not Reportable 04/21/21 16:32 Poikilocytosis Not Reportable 04/21/21 16:32 Anisocytosis 1+ 04/21/21 16:32 Microcytosis Not Reportable 04/21/21 16:32 Macrocytosis Not Reportable 04/21/21 16:32 Spherocytes Not Reportable 04/21/21 16:32 Pappenheimer Bodies Not Reportable 04/21/21 16:32 Sickle Cells Not Reportable 04/21/21 16:32 Target Cells Not Reportable 04/21/21 16:32 Tear Drop Cells Not Reportable 04/21/21 16:32 Ovalocytes Not Reportable 04/21/21 16:32 Helmet Cells Not Reportable 04/21/21 16:32 [place] Bodies Not Reportable 04/21/21 16:32 [place] Rings Not Reportable 04/21/21 16:32 [place] Cells Not Reportable 04/21/21 16:32 Bite Cells Not Reportable 04/21/21 16:32 Crenated Cell Not Reportable 04/21/21 16:32 Elliptocytes Not Reportable 04/21/21 16:32 Acanthocytes (Spur) Not Reportable 04/21/21 16:32 Rouleaux Not Reportable 04/21/21 16:32 Hemoglobin C Crystals Not Reportable 04/21/21 16:32 Schistocytes Not Reportable 04/21/21 16:32 Malaria parasites Not Reportable 04/21/21 16:32 Uli Bodies Not Reportable 04/21/21 16:32 Hem Pathologist Commnt No 04/21/21 16:32 PT 13.2 Sec. (12.2-14.9) 04/22/21 00:32 INR 0.95 (0.87-1.13) 04/22/21 00:32 APTT 29.2 Sec. (24.2-36.6) 04/22/21 00:32 D-Dimer 1522.26 ng/mlDDU (0-234) H 04/21/21 16:30 Heparin Anti-Xa Level 0.84 U.I./ml (0.3-0.7) H 04/24/21 10:14 ABG pH 7.365 (7.320-7.450) 04/27/21 03:51 POC ABG pCO2 52.9 mmHg (32.0-48.0) H 04/27/21 03:51 ABG pCO2 46.0 mm Hg 04/22/21 17:30 POC ABG pO2 60.8 mmHg (83-108) L 04/27/21 03:51 ABG pO2 99.6 mm Hg (80.0-90.0) H 04/22/21 17:30 POC ABG HCO3 29.6 04/27/21 03:51 ABG HCO3 24.4 mmol/L (20.0-26.0) 04/22/21 17:30 ABG O2 Saturation 88.7 (0-100) 04/27/21 03:51 ABG O2 Content 19.9 (0.0-44) 04/22/21 17:30 POC ABG Base Excess 3.2 04/27/21 03:51 ABG Base Excess -1.6 mmol/L (-2.0-3.0) 04/22/21 17:30 ABG Hemoglobin 11.9 (12.0-17.5) L 04/27/21 03:51 ABG Oxyhemoglobin 87.9 (94-98) L 04/27/21 03:51 ABG Carboxyhemoglobin 0.9 % (0.0-5.0) 04/22/21 17:30 ABG Methemoglobin 0.3 (0.0-1.5) 04/27/21 03:51 ABG Sodium 147.8 mmol/L (136.0-145.0) H 04/27/21 03:51 ABG Potassium 4.3 mmol/L (3.40-4.50) 04/27/21 03:51 ABG Chloride 111.0 mmol/L (98-107) H 04/27/21 03:51 ABG Glucose 183 mg/dL (65-95) H 04/27/21 03:51 Oxyhemoglobin 95.9 % (95.0-99.0) 04/22/21 17:30 Carboxyhemoglobin 0.6 (0.5-1.5) 04/27/21 03:51 FiO2 100 % 04/22/21 17:30 FiO2 % 100.0 04/27/21 03:51 Sodium 148 mmol/L (137-145) H 04/27/21 06:25 Potassium 5.1 mmol/L (3.6-5.0) H D 04/27/21 06:25 Chloride 109.0 mmol/L (98-107) H 04/27/21 06:25 Carbon Dioxide 28 mmol/L (22-30) 04/27/21 06:25 Anion Gap 16 mmol/L 04/27/21 06:25 BUN 35 mg/dL (7-17) H 04/27/21 06:25 Creatinine 0.9 mg/dL (0.6-1.2) 04/27/21 06:25 Estimated GFR > 60 ml/min 04/27/21 06:25 BUN/Creatinine Ratio 39 % 04/27/21 06:25 Glucose 170 mg/dL (65-100) H 04/27/21 06:25 POC Glucose 165 mg/dL (70-105) H 04/27/21 05:14 Calcium 9.5 mg/dL (8.4-10.2) 04/27/21 06:25 Phosphorus 2.90 mg/dL (2.5-4.5) D 04/25/21 07:42 Magnesium 2.40 mg/dL (1.7-2.3) H 04/24/21 10:00 Total Bilirubin 0.30 mg/dL (0.1-1.2) 04/27/21 06:25 AST 48 units/L (5-40) H 04/27/21 06:25 ALT 38 units/L (7-56) 04/27/21 06:25 Alkaline Phosphatase 114 units/L (35-129) 04/27/21 06:25 Ammonia 56.0 umol/L (25-60) 04/21/21 16:32 Total Creatine Kinase 396 units/L (30-135) H 04/24/21 10:00 CK-MB (CK-2) 22.4 ng/mL (0.0-4.0) H 04/21/21 16:32 CK-MB (CK-2) Rel Index 0.7 (0-4) 04/21/21 16:32 Troponin T 0.055 ng/mL (0.00-0.029) H 04/21/21 16:32 Total Protein 6.4 g/dL (6.3-8.2) 04/27/21 06:25 Albumin 2.4 g/dL (3.9-5) L 04/27/21 06:25 Albumin/Globulin Ratio 0.6 % 04/27/21 06:25 Triglycerides 235 mg/dL (2-149) H 04/21/21 16:32 Cholesterol 220 mg/dL (50-199) H 04/21/21 16:32 LDL Cholesterol Direct 142 mg/dL (50-130) H 04/21/21 16:32 HDL Cholesterol 36 mg/dL (40-59) L 04/21/21 16:32 Cholesterol/HDL Ratio 6.11 % 04/21/21 16:32 TSH 0.876 mlU/mL (0.270-4.200) 04/21/21 16:32 Free T4 1.05 ng/dL (0.76-1.46) 04/21/21 16:32 Arterial Blood Glucose 183 mg/dL (65-95) H 04/27/21 03:51 Arterial Blood Ionized Calcium 5.0 mg/dL (4.6-5.3) 04/27/21 03:51 Urine Color Yellow (Yellow) 04/21/21 Unknown Urine Turbidity Clear (Clear) 04/21/21 Unknown Urine pH 5.0 (5.0-7.0) 04/21/21 Unknown Ur Specific [place] 1.014 (1.003-1.030) 04/21/21 Unknown Urine Protein 100 mg/dl mg/dL (Negative) 04/21/21 Unknown Urine Glucose (UA) Neg mg/dL (Negative) 04/21/21 Unknown Urine Ketones Tr mg/dL (Negative) 04/21/21 Unknown Urine Blood Lg (Negative) 04/21/21 Unknown Urine Nitrite Neg (Negative) 04/21/21 Unknown Urine Bilirubin Neg (Negative) 04/21/21 Unknown Urine Urobilinogen 2.0 mg/dL (<2.0) 04/21/21 Unknown Ur Leukocyte Esterase Neg (Negative) 04/21/21 Unknown Urine WBC (Auto) 5.0 /HPF (0.0-6.0) 04/21/21 Unknown Urine RBC (Auto) 1.0 /HPF (0.0-6.0) 04/21/21 Unknown U Epithel Cells (Auto) 1.0 /HPF (0-13.0) 04/21/21 Unknown Urine Mucus Few /HPF 04/21/21 Unknown Urine Creatinine 138.9 mg/dL (0.1-20.0) H 04/22/21 13:03 Urine Total Protein 86 mg/dL (5-11.8) H 04/22/21 13:03 Urine Opiates Screen Negative 04/21/21 Unknown Urine Methadone Screen Negative 04/21/21 Unknown Ur Barbiturates Screen Negative 04/21/21 Unknown Ur Phencyclidine Scrn Negative 04/21/21 Unknown Ur Amphetamines Screen Negative 04/21/21 Unknown U Benzodiazepines Scrn Negative 04/21/21 Unknown Urine Cocaine Screen Negative 04/21/21 Unknown U Marijuana (THC) Screen Negative 04/21/21 Unknown Drugs of Abuse Note Disclamer 04/21/21 Unknown Plasma/Serum Alcohol < 0.01 % (0-0.07) 04/21/21 16:32 Coronavirus (PCR) Negative (Negative) 04/23/21 Unknown [place]/IV: Voiding Method External Female Catheter Active Medications - Current Medications Current Medications: Generic Name Dose Route Start Last Admin Trade Name Freq PRN Reason Stop Dose Admin Acetaminophen 650 mg 04/21/21 21:11 Acetaminophen 325 Mg Tab PO Q4H PRN Pain MILD(1-3)/Fever >100.5/DICKINSON Lipase/Protease/Amylase 1 each 04/22/21 10:51 Lipase 10,500/Protease 25,000/Amylase 43,750 (Units) Dr Cap FEEDTUBE PRN PRN For Clogged Feeding Tube Enoxaparin Sodium 80 mg 04/24/21 14:00 04/27/21 02:53 Enoxaparin 80 Mg/0.8 Ml Inj SUB-Q 80 mg Q12H MINOR Administration Famotidine 20 mg 04/24/21 10:00 04/26/21 21:19 Famotidine 20 Mg Tab PO 20 mg BID MINOR Administration Hydrophilic Ointment 1 applic 04/21/21 15:46 Lip Therapy Vaseline TP Q2HR PRN Dry Lips Fentanyl Citrate 2,000 mcg in 100 mls @ 3.515 mls/hr 04/21/21 16:00 04/27/21 02:57 Fentanyl Drip Premix IV 4 mcg/kg/hr TITR MINOR 14.061 mls/hr Administration Protocol 1 MCG/KG/HR Dexmedetomidine HCl 400 mcg/ 104 mls @ 4.144 mls/hr 04/25/21 06:00 04/27/21 05:31 Sodium Chloride IV 1 mcg/kg/hr TITRATE MINOR 20.722 mls/hr Administration Protocol 0.2 MCG/KG/HR Methylprednisolone Sodium 250 mls @ 250 mls/hr 04/25/21 11:00 04/26/21 11:57 Succinate 1,000 mg/ Sodium IV 04/27/21 11:59 250 mls/hr Chloride Q24H MINOR Administration Propofol 1,000 mg in 100 mls @ 2.19 mls/hr 04/26/21 11:00 04/27/21 07:20 Diprivan 10 Mg/Ml IV 10 mcg/kg/min TITR MINOR 4.38 mls/hr Administration Protocol 5 MCG/KG/MIN Levetiracetam 750 mg 04/25/21 10:00 04/26/21 21:18 Levetiracetam 500 Mg/5 Ml Oral Liqd PO 750 mg BID MINOR Administration Lorazepam 2 mg 04/26/21 10:55 04/27/21 02:52 Lorazepam 2 Mg/Ml Vial IV 2 mg Q4H PRN Administration Agitation Methylprednisolone Sodium Succinate 60 mg 04/28/21 06:00 Methylprednisolone Sod Succinate 40 Mg/1 Ml Inj IV Q6H MINOR Multi-Ingred Cream/Lotion/Oil/Oint 1 applic 04/21/21 15:46 Mineral Oil/Petrolatum, White Ophth Oint 3.5 Gm OU Q4HR PRN Dry Eye(s) Ondansetron HCl 4 mg 04/26/21 06:15 Ondansetron 4 Mg/2 Ml Inj IV Q6HR PRN Nausea And Vomiting Senna/Docusate Sodium 1 tab 04/26/21 22:00 04/26/21 21:20 Sennosides/Docusate Sodium 8.6/50 Mg Tab FEEDTUBE Not Given QHS MINOR Simple Syrup 15 ml 04/22/21 10:51 Simple Syrup 15 Ml FEEDTUBE PRN PRN Hypoglycemia Simple Syrup 30 ml 04/22/21 10:51 Simple Syrup 15 Ml FEEDTUBE PRN PRN Hypoglycemia Sodium Bicarbonate 325 mg 04/22/21 10:51 Sodium Bicarbonate 325 Mg Tab FEEDTUBE PRN PRN For Clogged Feeding Tube Sodium Chloride 10 ml 04/21/21 22:00 04/26/21 21:19 Sodium Chloride 0.9% 10 Ml Flush Syringe IV 10 ml BID MINOR Administration Sodium Chloride 10 ml 04/21/21 21:11 04/27/21 02:54 Sodium Chloride 0.9% 10 Ml Flush Syringe IV 10 ml PRN PRN Administration LINE FLUSH Sodium Polystyrene Sulfonate 30 gm 04/27/21 08:34 Sodium Polystyrene 15 Gm/60 Ml Oral Liqd PO 04/27/21 08:35 ONCE ONE Nutrition/Malnutrition Assess - Dietary Evaluation Nutrition/Malnutrition Findings: Nutrition Notes Start: 04/22/21 10:45 Freq: Status: Active Protocol: Document 04/24/21 14:58 MAYRA (Rec: 04/24/21 15:04 MAYRA [id number]) Nutrition Notes Initial or Follow up Reassessment Current Diagnosis Acute Kidney Injury, Hypertension,Stroke, Hyperlipidemia Other Pertinent Diagnosis New onset seizures, AMS, pulmonary embolism Current Diet TF - Nepro 35ml/hr Labs/Tests reviewed Pertinent Medications reviewed Height 5 ft 9 in Weight 79.7 kg [place] Body Weight (kg) 65.90 BMI 25.9 Weight change and time frame wt change noted Weight Status Appropriate Subjective/Other Information Per RN, pt tolerating TF at goal rate. Pt remains on vent support. Percent of energy/protein needs met: 89% energy 71% pro Burn Absent Trauma Absent #1 Nutrition Diagnosis Inadequate oral intake Diagnosis Progress(for reassessment Continues documentation) Is patient on ventilator? Yes Is Patient Ambulatory and/or Out of Bed No REE-([facility]-confined to bed) 1753.010 Calculation Used for Recommendations [facility] Additional Notes Pro needs 1.2-2g/k-159g/ day Fluid needs 1ml/kcal Nutrition Intervention Nutrition Support: Continue Nepro at 35ml/hr with 150ml water flush q4h. Kcal 1,512 Protein (gm) 68 Carbohydrates (gm) 135 Fat (gm) 81 Fluid (mL) 611 Fiber (gm) 11 Goal #1 TF tolerance Goal #2 TF to meet at least 75% energy and pro needs Follow-Up By: 05/01/21 Additional Comments F/U: stable TF, vent status, wt
[2021-04-27] MEDS: levETIRAcetam 500 MG/5 ML ORAL LIQD PO SCH ×2 (09:45→21:45)
[2021-04-27] MEDS: FAMOTIDINE 20 MG TAB PO SCH ×2 (09:46→21:45)
[2021-04-27] MEDS: methylPREDNISolone Sod Suc 1,000 MG in SODIUM CHLORIDE 0.9% 250ML 250 ML IV SCH (11:32)
--- NOTE | 2021-04-27 16:03 | Progress Note ---
Assessment and Plan 04/27/2021: Patient continues require heavy sedation, agitated otherwise. Remain on mechanical ventilator on assist control of 20. Remains on PEEP with FiO2 100% O2 sats around 90 to 92%. Nursing report of elevated gastric residuals from tube feedings. And apparently she had vomited once. We will continue with current vent settings prognosis appears to be poor. Consider Reglan for improving gastric emptying. 04/26/21: Dropped tidal volume to 300. Keep PEEP at 16. Repeat ABG at 1230. Now that BP is better will give lasix 40 IV x1. Please assess again tomorrow and see if she would benefit from this. Pulse dose steroids through tomorrow and then solumedrol 60q6 starting on Thursday. Spoke with daughter over the phone who confirmed that mother was a smoker, heavy for 30+ years. Will start on BID pulmicort and brovana therapy. Overall prognosis discussed with daughter regarding possible need for trach and vent dependence. She asked about lung tx which I explained is not an option at this time. She seemed to express u nderstanding but was mainly in shock as she had no idea her mother had ILD and per daughter, mother never saw a lung physician. Guarded to poor prognosis. My partner rounding over the weekend, I am back on Thursday. 04/25/21: Picc line today. Increase PEEP to 16. Dropped TV back to 375. pH of 7.2 and greater is acceptable. Will also pulse dose for the next 72 hours and then transition to q6 dosing on Thursday. Will discuss current clinical state with daughter. Serial ABG's today to make sure pH stays where it needs to be and hopeful improvement in oxygenation. Guarded prognosis. 04/24/21: Will drop TV to 375 and Increase PEEP to 14. Will repeat ABG in one hour. If no improvements, may need to consider IV steroids for 48-72 hours. Exact etiology of chronic lung disease is not known. Would prefer not to give sedation vacation given high levels of oxygen required as agitation could make things worse. Right now, unable to determine current neuro state. Lungs are very very sick and even though this is a chronic issue, now with her drive diminished from the ventilator, most likely will be a difficult wean. Will discuss with family soon what the next steps could potentially be but would need to assess mental state first. Guarded prognosis. 1. Increase PEEP and repeat ABG 2. May need to consider IV steroids 3. Follow up neuro recs 4. Guarded prognosis. cCT 31 minutes. Subjective Date of service: 04/27/21 Principal diagnosis: Acute kidney injury, rhabdomyolysis Interval history: No change remains intubated and heavily sedated. Still on 100% FiO2 with PEEP. O2 sats low 90s Objective - Exam Narrative Exam: General appearance: Present: no acute distress, well-nourished, agitated, other (Sedated on vent) not following commands when awake - EENT Eyes: Present: PERRL ENT: clear oral mucosa - Neck Neck: Present: supple - Respiratory Respiratory effort: normal - Cardiovascular Rhythm: regular Heart Sounds: Present: S1 & S2 - Extremities Extremities: no ischemia Peripheral Pulses: within normal limits - Abdominal General gastrointestinal: soft - Integumentary Integumentary: Present: clear, warm, dry - Psychiatric Psychiatric: other - Neurologic Neurologic: other (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) Vital Signs - 12hr 04/27/21 04/27/21 04/27/21 04:00 04:16 04:25 Temperature 97.1 F L Pulse Rate 62 62 61 Respiratory 14 13 Rate Blood Pressure 166/96 166/96 159/82 O2 Sat by Pulse 93 93 93 Oximetry 04/27/21 04/27/21 04/27/21 04:30 04:46 05:00 Temperature Pulse Rate 61 61 61 Respiratory 13 12 13 Rate Blood Pressure 166/96 166/96 166/96 O2 Sat by Pulse 93 93 93 Oximetry 04/27/21 04/27/21 04/27/21 05:16 05:30 05:46 Temperature Pulse Rate 61 61 61 Respiratory 14 13 12 Rate Blood Pressure 166/96 166/96 166/96 O2 Sat by Pulse 91 91 92 Oximetry 04/27/21 04/27/21 04/27/21 06:00 06:16 06:30 Temperature Pulse Rate 61 60 59 L Respiratory 13 12 12 Rate Blood Pressure 166/96 166/96 166/96 O2 Sat by Pulse 91 91 92 Oximetry 04/27/21 04/27/21 04/27/21 06:46 07:00 07:16 Temperature 98.0 F Pulse Rate 58 L 58 L 58 L Respiratory 12 12 14 Rate Blood Pressure 166/96 166/96 166/96 O2 Sat by Pulse 93 93 93 Oximetry 04/27/21 04/27/21 04/27/21 07:30 07:46 07:54 Temperature Pulse Rate 60 67 71 Respiratory 12 13 Rate Blood Pressure 166/96 166/96 120/66 O2 Sat by Pulse 92 91 89 Oximetry 04/27/21 04/27/21 04/27/21 08:00 08:16 08:30 Temperature Pulse Rate 72 71 64 Respiratory 18 14 16 Rate Blood Pressure 166/96 166/96 166/96 O2 Sat by Pulse 88 90 91 Oximetry 04/27/21 04/27/21 04/27/21 08:46 09:00 09:16 Temperature Pulse Rate 67 64 62 Respiratory 16 15 14 Rate Blood Pressure 166/96 166/96 166/96 O2 Sat by Pulse 92 93 93 Oximetry 04/27/21 04/27/21 04/27/21 09:30 09:46 10:00 Temperature Pulse Rate 62 61 59 L Respiratory 13 15 15 Rate Blood Pressure 166/96 166/96 166/96 O2 Sat by Pulse 92 92 91 Oximetry 04/27/21 04/27/21 04/27/21 10:16 10:30 10:46 Temperature Pulse Rate 61 68 71 Respiratory 15 14 14 Rate Blood Pressure 166/96 166/96 166/96 O2 Sat by Pulse 88 88 89 Oximetry 04/27/21 04/27/21 04/27/21 11:00 11:16 11:30 Temperature Pulse Rate 65 64 73 Respiratory 14 14 14 Rate Blood Pressure 148/83 O2 Sat by Pulse 90 90 91 Oximetry 04/27/21 04/27/21 04/27/21 11:46 12:00 12:16 Temperature 98.2 F Pulse Rate 74 73 63 Respiratory 15 21 14 Rate Blood Pressure O2 Sat by Pulse 90 93 92 Oximetry 04/27/21 04/27/21 04/27/21 12:30 12:46 13:00 Temperature Pulse Rate 61 66 66 Respiratory 14 15 14 Rate Blood Pressure O2 Sat by Pulse 91 90 91 Oximetry 04/27/21 04/27/21 04/27/21 13:16 13:30 13:46 Temperature Pulse Rate 64 63 63 Respiratory 15 14 15 Rate Blood Pressure O2 Sat by Pulse 91 91 92 Oximetry 04/27/21 04/27/21 04/27/21 14:00 14:16 14:30 Temperature Pulse Rate 61 63 67 Respiratory 15 15 14 Rate Blood Pressure O2 Sat by Pulse 91 91 91 Oximetry 04/27/21 04/27/21 04/27/21 14:46 15:00 15:16 Temperature Pulse Rate 69 70 71 Respiratory 15 15 14 Rate Blood Pressure O2 Sat by Pulse 90 92 92 Oximetry 04/27/21 04/27/21 15:25 15:30 Temperature Pulse Rate 71 71 Respiratory 14 Rate Blood Pressure 149/82 O2 Sat by Pulse 92 92 Oximetry Constitutional: no acute distress, other (Sedated) Ascultation: Bilateral: rales, rhonchi CBC and BMP: 04/27/21 06:25 04/27/21 06:25 ABG, PT/INR, D-dimer: ABG ABG pH 7.365 (7.320-7.450) 04/27/21 03:51 POC ABG pCO2 52.9 mmHg (32.0-48.0) H 04/27/21 03:51 ABG pCO2 46.0 mm Hg 04/22/21 17:30 POC ABG pO2 60.8 mmHg (83-108) L 04/27/21 03:51 ABG pO2 99.6 mm Hg (80.0-90.0) H 04/22/21 17:30 POC ABG HCO3 29.6 04/27/21 03:51 ABG O2 Saturation 88.7 (0-100) 04/27/21 03:51 PT/INR, D-dimer PT 13.2 Sec. (12.2-14.9) 04/22/21 00:32 INR 0.95 (0.87-1.13) 04/22/21 00:32 D-Dimer 1522.26 ng/mlDDU (0-234) H 04/21/21 16:30 Abnormal lab findings: Abnormal Labs 04/21/21 04/21/21 04/21/21 14:40 15:42 16:30 RBC Hgb Hct RDW Lymph % (Auto) [place] % (Auto) Lymph # (Auto) Seg Neutrophils % Seg Neuts % (Manual) Lymphocytes % (Manual) Monocytes % (Manual) Lymphocytes # (Manual) D-Dimer 1522.26 H Heparin Anti-Xa Level ABG pH POC ABG pCO2 POC ABG pO2 45.5 L 69.9 L ABG pO2 ABG Hemoglobin ABG Oxyhemoglobin 78.6 L 90.2 L ABG Sodium ABG Potassium ABG Chloride 111.0 H ABG Glucose 156 H 148 H Carboxyhemoglobin Sodium Potassium Chloride Carbon Dioxide BUN Creatinine Glucose POC Glucose Calcium Phosphorus Magnesium AST ALT Total Creatine Kinase CK-MB (CK-2) Troponin T Total Protein Albumin Triglycerides Cholesterol LDL Cholesterol Direct HDL Cholesterol Arterial Blood Glucose 156 H 148 H Arterial Blood Ionized Calcium 4.5 L Urine Creatinine Urine Total Protein 04/21/21 04/21/21 04/22/21 16:32 16:32 00:32 RBC 5.22 H Hgb 16.2 H 14.8 H Hct 48.6 H 44.4 H RDW 15.8 H Lymph % (Auto) [place] % (Auto) Lymph # (Auto) Seg Neutrophils % Seg Neuts % (Manual) 79.0 H Lymphocytes % (Manual) 13.0 L Monocytes % (Manual) 8.0 H Lymphocytes # (Manual) 1.1 L D-Dimer Heparin Anti-Xa Level ABG pH POC ABG pCO2 POC ABG pO2 ABG pO2 ABG Hemoglobin ABG Oxyhemoglobin ABG Sodium ABG Potassium ABG Chloride ABG Glucose Carboxyhemoglobin Sodium Potassium Chloride Carbon Dioxide 21 L BUN 24 H Creatinine 1.3 H Glucose 130 H POC Glucose Calcium Phosphorus Magnesium AST 129 H ALT 61 H Total Creatine Kinase 3055 H CK-MB (CK-2) 22.4 H Troponin T 0.055 H Total Protein Albumin 3.6 L Triglycerides 235 H Cholesterol 220 H LDL Cholesterol Direct 142 H HDL Cholesterol 36 L Arterial Blood Glucose Arterial Blood Ionized Calcium Urine Creatinine Urine Total Protein 04/22/21 04/22/21 04/22/21 03:27 05:29 05:29 RBC Hgb 15.4 H Hct 45.8 H RDW 16.0 H Lymph % (Auto) 12.0 L [place] % (Auto) 8.0 H Lymph # (Auto) 1.1 L Seg Neutrophils % 76.3 H Seg Neuts % (Manual) Lymphocytes % (Manual) Monocytes % (Manual) Lymphocytes # (Manual) D-Dimer Heparin Anti-Xa Level ABG pH POC ABG pCO2 POC ABG pO2 ABG pO2 ABG Hemoglobin ABG Oxyhemoglobin ABG Sodium ABG Potassium 4.7 H ABG Chloride 109.0 H ABG Glucose 155 H Carboxyhemoglobin 0.4 L Sodium Potassium 6.3 H* D Chloride Carbon Dioxide BUN 26 H Creatinine Glucose 134 H POC Glucose Calcium Phosphorus Magnesium AST 123 H ALT Total Creatine Kinase CK-MB (CK-2) Troponin T Total Protein Albumin 3.6 L Triglycerides Cholesterol LDL Cholesterol Direct HDL Cholesterol Arterial Blood Glucose 155 H Arterial Blood Ionized Calcium Urine Creatinine Urine Total Protein 04/22/21 04/22/21 04/22/21 13:03 13:25 17:30 RBC Hgb Hct RDW Lymph % (Auto) [place] % (Auto) Lymph # (Auto) Seg Neutrophils % Seg Neuts % (Manual) Lymphocytes % (Manual) Monocytes % (Manual) Lymphocytes # (Manual) D-Dimer Heparin Anti-Xa Level ABG pH 7.343 L POC ABG pCO2 POC ABG pO2 ABG pO2 99.6 H ABG Hemoglobin ABG Oxyhemoglobin ABG Sodium ABG Potassium ABG Chloride ABG Glucose Carboxyhemoglobin Sodium Potassium Chloride Carbon Dioxide BUN Creatinine Glucose POC Glucose Calcium Phosphorus Magnesium AST ALT Total Creatine Kinase 2322 H CK-MB (CK-2) Troponin T Total Protein Albumin Triglycerides Cholesterol LDL Cholesterol Direct HDL Cholesterol Arterial Blood Glucose Arterial Blood Ionized Calcium Urine Creatinine 138.9 H Urine Total Protein 86 H 04/22/21 04/23/21 04/23/21 20:00 04:42 09:53 RBC Hgb Hct RDW Lymph % (Auto) [place] % (Auto) Lymph # (Auto) Seg Neutrophils % Seg Neuts % (Manual) Lymphocytes % (Manual) Monocytes % (Manual) Lymphocytes # (Manual) D-Dimer Heparin Anti-Xa Level 2.00 H < 0.10 L ABG pH POC ABG pCO2 POC ABG pO2 ABG pO2 ABG Hemoglobin ABG Oxyhemoglobin 83.2 L ABG Sodium ABG Potassium ABG Chloride 113.0 H ABG Glucose 107 H Carboxyhemoglobin Sodium Potassium Chloride Carbon Dioxide BUN Creatinine Glucose POC Glucose Calcium Phosphorus Magnesium AST ALT Total Creatine Kinase CK-MB (CK-2) Troponin T Total Protein Albumin Triglycerides Cholesterol LDL Cholesterol Direct HDL Cholesterol Arterial Blood Glucose 107 H Arterial Blood Ionized Calcium Urine Creatinine Urine Total Protein 04/23/21 04/23/21 04/23/21 14:21 14:21 15:11 RBC Hgb Hct RDW 16.3 H Lymph % (Auto) [place] % (Auto) Lymph # (Auto) Seg Neutrophils % Seg Neuts % (Manual) Lymphocytes % (Manual) Monocytes % (Manual) Lymphocytes # (Manual) D-Dimer Heparin Anti-Xa Level ABG pH POC ABG pCO2 POC ABG pO2 68.6 L ABG pO2 ABG Hemoglobin ABG Oxyhemoglobin 91.3 L ABG Sodium ABG Potassium ABG Chloride 113.0 H ABG Glucose 100 H Carboxyhemoglobin Sodium Potassium Chloride 113.1 H Carbon Dioxide 20 L BUN 18 H Creatinine Glucose POC Glucose Calcium 8.2 L Phosphorus Magnesium AST 59 H ALT Total Creatine Kinase 681 H CK-MB (CK-2) Troponin T Total Protein 5.5 L Albumin 2.3 L Triglycerides Cholesterol LDL Cholesterol Direct HDL Cholesterol Arterial Blood Glucose 100 H Arterial Blood Ionized Calcium Urine Creatinine Urine Total Protein 04/23/21 04/24/21 04/24/21 18:30 04:00 05:37 RBC Hgb Hct RDW Lymph % (Auto) [place] % (Auto) Lymph # (Auto) Seg Neutrophils % Seg Neuts % (Manual) Lymphocytes % (Manual) Monocytes % (Manual) Lymphocytes # (Manual) D-Dimer Heparin Anti-Xa Level 1.84 H ABG pH POC ABG pCO2 POC ABG pO2 51.9 L ABG pO2 ABG Hemoglobin ABG Oxyhemoglobin 84.9 L ABG Sodium ABG Potassium ABG Chloride 112.0 H ABG Glucose 138 H Carboxyhemoglobin Sodium Potassium Chloride Carbon Dioxide BUN Creatinine Glucose POC Glucose 108 H Calcium Phosphorus Magnesium AST ALT Total Creatine Kinase CK-MB (CK-2) Troponin T Total Protein Albumin Triglycerides Cholesterol LDL Cholesterol Direct HDL Cholesterol Arterial Blood Glucose 138 H Arterial Blood Ionized Calcium Urine Creatinine Urine Total Protein 04/24/21 04/24/21 04/24/21 10:00 10:00 10:14 RBC Hgb Hct RDW 16.0 H Lymph % (Auto) [place] % (Auto) Lymph # (Auto) Seg Neutrophils % Seg Neuts % (Manual) Lymphocytes % (Manual) Monocytes % (Manual) Lymphocytes # (Manual) D-Dimer Heparin Anti-Xa Level 0.84 H ABG pH POC ABG pCO2 POC ABG pO2 ABG pO2 ABG Hemoglobin ABG Oxyhemoglobin ABG Sodium ABG Potassium ABG Chloride ABG Glucose Carboxyhemoglobin Sodium Potassium Chloride 109.9 H Carbon Dioxide BUN Creatinine Glucose 118 H POC Glucose Calcium Phosphorus 2.00 L Magnesium 2.40 H AST 59 H ALT Total Creatine Kinase 396 H CK-MB (CK-2) Troponin T Total Protein 5.5 L Albumin 2.4 L Triglycerides Cholesterol LDL Cholesterol Direct HDL Cholesterol Arterial Blood Glucose Arterial Blood Ionized Calcium Urine Creatinine Urine Total Protein 04/24/21 04/24/21 04/24/21 11:14 12:00 15:23 RBC Hgb Hct RDW Lymph % (Auto) [place] % (Auto) Lymph # (Auto) Seg Neutrophils % Seg Neuts % (Manual) Lymphocytes % (Manual) Monocytes % (Manual) Lymphocytes # (Manual) D-Dimer Heparin Anti-Xa Level ABG pH 7.287 L POC ABG pCO2 54.3 H POC ABG pO2 58.2 L 67.5 L ABG pO2 ABG Hemoglobin ABG Oxyhemoglobin 88.3 L 89.9 L ABG Sodium ABG Potassium ABG Chloride 111.0 H 110.0 H ABG Glucose 117 H 126 H Carboxyhemoglobin 0.3 L Sodium Potassium Chloride Carbon Dioxide BUN Creatinine Glucose POC Glucose 112 H Calcium Phosphorus Magnesium AST ALT Total Creatine Kinase CK-MB (CK-2) Troponin T Total Protein Albumin Triglycerides Cholesterol LDL Cholesterol Direct HDL Cholesterol Arterial Blood Glucose 117 H 126 H Arterial Blood Ionized Calcium Urine Creatinine Urine Total Protein 04/24/21 04/24/21 04/24/21 17:58 18:00 22:56 RBC Hgb Hct RDW Lymph % (Auto) [place] % (Auto) Lymph # (Auto) Seg Neutrophils % Seg Neuts % (Manual) Lymphocytes % (Manual) Monocytes % (Manual) Lymphocytes # (Manual) D-Dimer Heparin Anti-Xa Level ABG pH POC ABG pCO2 POC ABG pO2 53.3 L ABG pO2 ABG Hemoglobin ABG Oxyhemoglobin 86.2 L ABG Sodium ABG Potassium ABG Chloride 111.0 H ABG Glucose 115 H Carboxyhemoglobin 0.4 L Sodium Potassium Chloride Carbon Dioxide BUN Creatinine Glucose POC Glucose 106 H 131 H Calcium Phosphorus Magnesium AST ALT Total Creatine Kinase CK-MB (CK-2) Troponin T Total Protein Albumin Triglycerides Cholesterol LDL Cholesterol Direct HDL Cholesterol Arterial Blood Glucose 115 H Arterial Blood Ionized Calcium Urine Creatinine Urine Total Protein 04/25/21 04/25/21 04/25/21 04:00 07:42 10:50 RBC Hgb Hct RDW Lymph % (Auto) [place] % (Auto) Lymph # (Auto) Seg Neutrophils % Seg Neuts % (Manual) Lymphocytes % (Manual) Monocytes % (Manual) Lymphocytes # (Manual) D-Dimer Heparin Anti-Xa Level ABG pH POC ABG pCO2 POC ABG pO2 48.5 L 56.5 L ABG pO2 ABG Hemoglobin 10.6 L 10.4 L ABG Oxyhemoglobin 79.4 L 86.8 L ABG Sodium ABG Potassium ABG Chloride 111.0 H 112.0 H ABG Glucose 115 H 124 H Carboxyhemoglobin 0.2 L Sodium 146 H Potassium Chloride 111.3 H Carbon Dioxide BUN Creatinine Glucose 128 H POC Glucose Calcium Phosphorus Magnesium AST ALT Total Creatine Kinase CK-MB (CK-2) Troponin T Total Protein Albumin Triglycerides Cholesterol LDL Cholesterol Direct HDL Cholesterol Arterial Blood Glucose 115 H 124 H Arterial Blood Ionized Calcium Urine Creatinine Urine Total Protein 04/25/21 04/25/21 04/25/21 11:12 13:55 16:05 RBC Hgb Hct RDW Lymph % (Auto) [place] % (Auto) Lymph # (Auto) Seg Neutrophils % Seg Neuts % (Manual) Lymphocytes % (Manual) Monocytes % (Manual) Lymphocytes # (Manual) D-Dimer Heparin Anti-Xa Level ABG pH POC ABG pCO2 POC ABG pO2 46.7 L 53.7 L ABG pO2 ABG Hemoglobin 10.7 L 11.1 L ABG Oxyhemoglobin 81.3 L 85.6 L ABG Sodium ABG Potassium ABG Chloride 111.0 H 111.0 H ABG Glucose 158 H 185 H Carboxyhemoglobin 0.4 L Sodium Potassium Chloride Carbon Dioxide BUN Creatinine Glucose POC Glucose 136 H Calcium Phosphorus Magnesium AST ALT Total Creatine Kinase CK-MB (CK-2) Troponin T Total Protein Albumin Triglycerides Cholesterol LDL Cholesterol Direct HDL Cholesterol Arterial Blood Glucose 158 H 185 H Arterial Blood Ionized Calcium Urine Creatinine Urine Total Protein 04/25/21 04/25/21 04/26/21 17:39 23:18 05:06 RBC Hgb Hct RDW Lymph % (Auto) [place] % (Auto) Lymph # (Auto) Seg Neutrophils % Seg Neuts % (Manual) Lymphocytes % (Manual) Monocytes % (Manual) Lymphocytes # (Manual) D-Dimer Heparin Anti-Xa Level ABG pH POC ABG pCO2 POC ABG pO2 ABG pO2 ABG Hemoglobin ABG Oxyhemoglobin ABG Sodium ABG Potassium ABG Chloride ABG Glucose Carboxyhemoglobin Sodium Potassium Chloride Carbon Dioxide BUN Creatinine Glucose POC Glucose 155 H 158 H 134 H Calcium Phosphorus Magnesium AST ALT Total Creatine Kinase CK-MB (CK-2) Troponin T Total Protein Albumin Triglycerides Cholesterol LDL Cholesterol Direct HDL Cholesterol Arterial Blood Glucose Arterial Blood Ionized Calcium Urine Creatinine Urine Total Protein 04/26/21 04/26/21 04/26/21 05:22 12:20 13:16 RBC Hgb Hct RDW Lymph % (Auto) [place] % (Auto) Lymph # (Auto) Seg Neutrophils % Seg Neuts % (Manual) Lymphocytes % (Manual) Monocytes % (Manual) Lymphocytes # (Manual) D-Dimer Heparin Anti-Xa Level ABG pH POC ABG pCO2 POC ABG pO2 52.2 L 53.9 L ABG pO2 ABG Hemoglobin 10.9 L 11.5 L ABG Oxyhemoglobin 86.5 L 86.4 L ABG Sodium 145.8 H ABG Potassium 4.6 H ABG Chloride 114.0 H 112.0 H ABG Glucose 144 H 162 H Carboxyhemoglobin 0.4 L 0.4 L Sodium Potassium Chloride Carbon Dioxide BUN Creatinine Glucose POC Glucose 160 H Calcium Phosphorus Magnesium AST ALT Total Creatine Kinase CK-MB (CK-2) Troponin T Total Protein Albumin Triglycerides Cholesterol LDL Cholesterol Direct HDL Cholesterol Arterial Blood Glucose 144 H 162 H Arterial Blood Ionized Calcium Urine Creatinine Urine Total Protein 04/26/21 04/26/21 04/26/21 14:09 18:42 23:30 RBC Hgb Hct RDW Lymph % (Auto) [place] % (Auto) Lymph # (Auto) Seg Neutrophils % Seg Neuts % (Manual) Lymphocytes % (Manual) Monocytes % (Manual) Lymphocytes # (Manual) D-Dimer Heparin Anti-Xa Level ABG pH POC ABG pCO2 POC ABG pO2 55.3 L ABG pO2 ABG Hemoglobin 11.6 L ABG Oxyhemoglobin 87.2 L ABG Sodium 146.6 H ABG Potassium ABG Chloride 111.0 H ABG Glucose 165 H Carboxyhemoglobin Sodium Potassium Chloride Carbon Dioxide BUN Creatinine Glucose POC Glucose 161 H 163 H Calcium Phosphorus Magnesium AST ALT Total Creatine Kinase CK-MB (CK-2) Troponin T Total Protein Albumin Triglycerides Cholesterol LDL Cholesterol Direct HDL Cholesterol Arterial Blood Glucose 165 H Arterial Blood Ionized Calcium Urine Creatinine Urine Total Protein 04/27/21 04/27/21 04/27/21 03:51 05:14 06:25 RBC 3.64 L Hgb Hct RDW 16.2 H Lymph % (Auto) [place] % (Auto) Lymph # (Auto) Seg Neutrophils % Seg Neuts % (Manual) Lymphocytes % (Manual) Monocytes % (Manual) Lymphocytes # (Manual) D-Dimer Heparin Anti-Xa Level ABG pH POC ABG pCO2 52.9 H POC ABG pO2 60.8 L ABG pO2 ABG Hemoglobin 11.9 L ABG Oxyhemoglobin 87.9 L ABG Sodium 147.8 H ABG Potassium ABG Chloride 111.0 H ABG Glucose 183 H Carboxyhemoglobin Sodium Potassium Chloride Carbon Dioxide BUN Creatinine Glucose POC Glucose 165 H Calcium Phosphorus Magnesium AST ALT Total Creatine Kinase CK-MB (CK-2) Troponin T Total Protein Albumin Triglycerides Cholesterol LDL Cholesterol Direct HDL Cholesterol Arterial Blood Glucose 183 H Arterial Blood Ionized Calcium Urine Creatinine Urine Total Protein 04/27/21 04/27/21 06:25 11:45 RBC Hgb Hct RDW Lymph % (Auto) [place] % (Auto) Lymph # (Auto) Seg Neutrophils % Seg Neuts % (Manual) Lymphocytes % (Manual) Monocytes % (Manual) Lymphocytes # (Manual) D-Dimer Heparin Anti-Xa Level ABG pH POC ABG pCO2 POC ABG pO2 ABG pO2 ABG Hemoglobin ABG Oxyhemoglobin ABG Sodium ABG Potassium ABG Chloride ABG Glucose Carboxyhemoglobin Sodium 148 H Potassium 5.1 H D Chloride 109.0 H Carbon Dioxide BUN 35 H Creatinine Glucose 170 H POC Glucose 184 H Calcium Phosphorus Magnesium AST 48 H ALT Total Creatine Kinase CK-MB (CK-2) Troponin T Total Protein Albumin 2.4 L Triglycerides Cholesterol LDL Cholesterol Direct HDL Cholesterol Arterial Blood Glucose Arterial Blood Ionized Calcium Urine Creatinine Urine Total Protein
[2021-04-27] MEDS: SENNOSIDES/DOCUSATE SODIUM 8.6/50 MG TAB FEEDTUBE SCH (21:45)
[2021-04-28] MEDS: ENOXAPARIN 80 MG/0.8 ML INJ SUB-Q SCH ×2 (01:44→13:10)
[2021-04-28] MEDS ORDERED: hydrALAZINE 20 MG/1 ML INJ IV PRN (01:47)
[2021-04-28 05:38] LABS: Hematocrit 35.2 % (30.3-42.9); Hemoglobin 11.6 gm/dl (10.1-14.3); Mean Corpuscular HGB Conc 33 % (30-34); Mean Corpuscular Volume 94 fl (79-97); Platelet Count 245 K/mm3 (140-440); Red Blood Count 3.74 M/mm3 (3.65-5.03); Red Cell Distribution Width 16.1 % (13.2-15.2)
[2021-04-28 06:07] LABS: Alanine Aminotransferase 31 units/L (7-56); Albumin 2.4 g/dL (3.9-5); BUN/Creatinine Ratio 40; Blood Urea Nitrogen 32 mg/dL (7-17); Hemolysis Index 20
[2021-04-28] MEDS: methylPREDNISolone Sod Succinate 40 MG/1 ML INJ IV SCH ×3 (06:27→17:28)
[2021-04-28] MEDS: FREE WATER PO SCH ×5 (06:28→23:40)
[2021-04-28] MEDS: levETIRAcetam 500 MG/5 ML ORAL LIQD PO SCH ×2 (09:29→21:43)
[2021-04-28] MEDS: FAMOTIDINE 20 MG TAB PO SCH ×2 (09:29→21:43)
--- NOTE | 2021-04-28 09:46 | Progress Note ---
Assessment and Plan Assessment and plan: Per ER... 04-21 The patient is a 66-year-old female present with a chief complaint of altered mental status. Per EMS the patient has a history of previous CVA with left- sided weakness. Family reported that the patient developed increased left-sided weakness 3 days ago. The patient was taken to the emergency department but refused to be seen so family brought the patient back home. The following day the patient "stopped speaking" and family eventually brought the patient into the ED today as there was no improvement. Patient opens her eyes to sternal rub and answers some questions but appears confused. First oxygen saturation in ER was 69%. Pt intubated for airway protection and hypoxia believed to be due to unprotected airway post seizure. Pt was ER hold and arrived to ICU overnight PMH HTN HLD CVA 2 Y AGO with left sided residual weakness NOK daughter (see previous encounter note 07/2019) NO ACUTE EVENTS OVERNIGHT NEURO hx CVA with l sided weakness; new onset sz new onset sz UDS neg on admit neuro following LUE with spasticity and contraction of l hand; noted pt flexing legs; PERRL; no commands CT head on admit- IMPRESSION: Encephalomalacia in the right temporal lobe, frontal lobe; no acute/subacute parenchymal lesions MRI Encephalomalacia in the right cerebral hemisphere - see report on keppra daily SAT limited by hypoxia RAAS goal neg 4 propofol ativan PRN ok to use pressors to keep sedsted per Dr Arrington family updated on plan of care case management following CV: hx htn on norvasc at home per EMR asa/statin echo 04/22 see report SR-ST no pressors RESP acute resp failure with PE on CTA; refractory hypoxia intubated in ER; remains ventilated see EMR for titration CT noted - a/c lung disease evident with LPA PE's noted remains hypoxic but with some improvement covid pending US BLE neg chest xray no focal consolidation- diffuse fibrotic disease remains hypoxic on high levels of PEEP and 100% will inc sedation diuresis GI -diarrhea TF nutrition following PPI bowel reg decreased today for diarrhea may need d/c with fiber supplement if that fails consider elemental TF no cdiff needed per Dr Arrington -LIZBETH/rhabdo sp sz [place] strict I/O pt net pos 1.4 L over the last 24 hours trend and replace electrolytes as needed trend BUN/CR/CK nephrology following HEME- PE VTE on hep for PE heparin drip for known PE trending coags/Xa trend CBC no bleeding on exam LE dopplers completed- results pending ID- nap covid pending follow cultures 04/21 sputum culture afebrile no antibiotics at this time are indicated continue to trend temp and WBC curve ENDO stress hyperglycemia blood glucose monitoring avoid hypoglycemia 04/27: Patient remains critically ill remains on the ventilator no purposeful movement he gets agitated when off agitation. We will give i a dose of Kayexalate considering hyperkalemia. Continue to monitor electrolytes and tight blood sugar control. 04/28:HyperNatremia- Will start on D5W and monitor Na and Blood glucose. Continue sedation due to aggitation when awake and not following commands. Will obtain re-evaluation by Neuro in AM. Reglan per critical care team due to period of vomiting. Will check KUB The high probability of a clinically significant, sudden or life threatening de terioration of the [respiratory] system(s) required my full and direct attention, intervention and personal management. The aggregate critical care time was [35] minutes. This time is in addition to time spent performing reported procedures but includes the following: [x] Data Review and interpretation [x] Patient assessment and monitoring of vital signs [x] Documentation [x] Medication orders and management Disposition Plan: tbd History Interval history: Patient seen and examined, remains sedated, while awake not responsive or following commands. Still with intermittent agitation. No Further vomiting noted. Hospitalist Physical - Physical exam Narrative exam: General appearance: Present: no acute distress, well-nourished, agitated, other (Sedated on vent) not following commands when awake - EENT Eyes: Present: PERRL ENT: clear oral mucosa - Neck Neck: Present: supple - Respiratory Respiratory effort: normal - Cardiovascular Rhythm: regular Heart Sounds: Present: S1 & S2 - Extremities Extremities: no ischemia Peripheral Pulses: within normal limits - Abdominal General gastrointestinal: soft - Integumentary Integumentary: Present: clear, warm, dry - Psychiatric Psychiatric: other - Neurologic Neurologic: other (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) - Constitutional Vitals: Temp Pulse Resp BP Pulse Ox 97.9 F 91 H 24 132/85 89 04/28/21 09:22 04/28/21 08:46 04/28/21 08:46 04/28/21 08:46 07/25/21 08:46 General appearance: Present: no acute distress, well-nourished, other (Sedated on vent) HEART Score - HEART Score Age: 45-65 Risk factors: 1-2 risk factors Troponin: Troponin T 0.055 ng/mL (0.00-0.029) H 04/21/21 16:32 - Critical Actions Critical Actions: 0-3 pts:0.9-1.7%risk of adverse cardiac event.Candidate for discharge Results - Labs CBC & Chem 7: 04/28/21 04:45 04/28/21 04:00 Labs: Laboratory Last Values WBC 6.1 K/mm3 (4.5-11.0) 04/28/21 04:45 RBC 3.74 M/mm3 (3.65-5.03) 04/28/21 04:45 Hgb 11.6 gm/dl (10.1-14.3) 04/28/21 04:45 Hct 35.2 % (30.3-42.9) 04/28/21 04:45 MCV 94 fl (79-97) 04/28/21 04:45 MCH 31 pg (28-32) 04/28/21 04:45 MCHC 33 % (30-34) 04/28/21 04:45 RDW 16.1 % (13.2-15.2) H 04/28/21 04:45 Plt Count 245 K/mm3 (140-440) 04/28/21 04:45 Lymph % (Auto) 12.0 % (13.4-35.0) L 04/22/21 05:29 [place] % (Auto) 8.0 % (0.0-7.3) H 04/22/21 05:29 Eos % (Auto) 3.0 % (0.0-4.3) 04/22/21 05:29 Baso % (Auto) 0.7 % (0.0-1.8) 04/22/21 05:29 Lymph # (Auto) 1.1 K/mm3 (1.2-5.4) L 04/22/21 05:29 [place] # (Auto) 0.7 K/mm3 (0.0-0.8) 04/22/21 05:29 Eos # (Auto) 0.3 K/mm3 (0.0-0.4) 04/22/21 05:29 Baso # (Auto) 0.1 K/mm3 (0.0-0.1) 04/22/21 05:29 Add Manual Diff Complete 04/21/21 16:32 Total Counted 100 04/21/21 16:32 Seg Neutrophils % 76.3 % (40.0-70.0) H 04/22/21 05:29 Seg Neuts % (Manual) 79.0 % (40.0-70.0) H 04/21/21 16:32 Lymphocytes % (Manual) 13.0 % (13.4-35.0) L 04/21/21 16:32 Monocytes % (Manual) 8.0 % (0.0-7.3) H 04/21/21 16:32 Nucleated RBC % Not Reportable 04/21/21 16:32 Seg Neutrophils # 6.7 K/mm3 (1.8-7.7) 04/22/21 05:29 Seg Neutrophils # Man 6.6 K/mm3 (1.8-7.7) 04/21/21 16:32 Band Neutrophils # 0.0 K/mm3 04/21/21 16:32 Lymphocytes # (Manual) 1.1 K/mm3 (1.2-5.4) L 04/21/21 16:32 Abs React Lymphs (Man) 0.0 K/mm3 04/21/21 16:32 Monocytes # (Manual) 0.7 K/mm3 (0.0-0.8) 04/21/21 16:32 Eosinophils # (Manual) 0.0 K/mm3 (0.0-0.4) 04/21/21 16:32 Basophils # (Manual) 0.0 K/mm3 (0.0-0.1) 04/21/21 16:32 Metamyelocytes # 0.0 K/mm3 04/21/21 16:32 Myelocytes # 0.0 K/mm3 04/21/21 16:32 Promyelocytes # 0.0 K/mm3 04/21/21 16:32 Blast Cells # 0.0 K/mm3 04/21/21 16:32 WBC Morphology Not Reportable 04/21/21 16:32 Hypersegmented Neuts Not Reportable 04/21/21 16:32 Hyposegmented Neuts Not Reportable 04/21/21 16:32 Hypogranular Neuts Not Reportable 04/21/21 16:32 Smudge Cells Not Reportable 04/21/21 16:32 Toxic Granulation Not Reportable 04/21/21 16:32 Toxic Vacuolation Not Reportable 04/21/21 16:32 Dohle Bodies Not Reportable 04/21/21 16:32 Pelger-Huet Anomaly Not Reportable 04/21/21 16:32 Brenda Rods Not Reportable 04/21/21 16:32 Platelet Estimate Consistent w auto 04/21/21 16:32 Clumped Platelets Not Reportable 04/21/21 16:32 Plt Clumps, EDTA Not Reportable 04/21/21 16:32 Large Platelets Not Reportable 04/21/21 16:32 Giant Platelets Not Reportable 04/21/21 16:32 Platelet Satelliting Not Reportable 04/21/21 16:32 Plt Morphology Comment Not Reportable 04/21/21 16:32 RBC Morphology Not Reportable 04/21/21 16:32 Dimorphic RBCs Not Reportable 04/21/21 16:32 Polychromasia Not Reportable 04/21/21 16:32 Hypochromasia Not Reportable 04/21/21 16:32 Poikilocytosis Not Reportable 04/21/21 16:32 Anisocytosis 1+ 04/21/21 16:32 Microcytosis Not Reportable 04/21/21 16:32 Macrocytosis Not Reportable 04/21/21 16:32 Spherocytes Not Reportable 04/21/21 16:32 Pappenheimer Bodies Not Reportable 04/21/21 16:32 Sickle Cells Not Reportable 04/21/21 16:32 Target Cells Not Reportable 04/21/21 16:32 Tear Drop Cells Not Reportable 04/21/21 16:32 Ovalocytes Not Reportable 04/21/21 16:32 Helmet Cells Not Reportable 04/21/21 16:32 [place] Bodies Not Reportable 04/21/21 16:32 [place] Rings Not Reportable 04/21/21 16:32 Swisher Cells Not Reportable 04/21/21 16:32 Bite Cells Not Reportable 04/21/21 16:32 Crenated Cell Not Reportable 04/21/21 16:32 Elliptocytes Not Reportable 04/21/21 16:32 Acanthocytes (Spur) Not Reportable 04/21/21 16:32 Rouleaux Not Reportable 04/21/21 16:32 Hemoglobin C Crystals Not Reportable 04/21/21 16:32 Schistocytes Not Reportable 04/21/21 16:32 Malaria parasites Not Reportable 04/21/21 16:32 Uli Bodies Not Reportable 04/21/21 16:32 Hem Pathologist Commnt No 04/21/21 16:32 PT 13.2 Sec. (12.2-14.9) 04/22/21 00:32 INR 0.95 (0.87-1.13) 04/22/21 00:32 APTT 29.2 Sec. (24.2-36.6) 04/22/21 00:32 D-Dimer 1522.26 ng/mlDDU (0-234) H 04/21/21 16:30 Heparin Anti-Xa Level 0.84 U.I./ml (0.3-0.7) H 04/24/21 10:14 ABG pH 7.365 (7.320-7.450) 04/28/21 03:23 POC ABG pCO2 55.9 mmHg (32.0-48.0) H 04/28/21 03:23 ABG pCO2 46.0 mm Hg 04/22/21 17:30 POC ABG pO2 76.2 mmHg (83-108) L 04/28/21 03:23 ABG pO2 99.6 mm Hg (80.0-90.0) H 04/22/21 17:30 POC ABG HCO3 31.2 04/28/21 03:23 ABG HCO3 24.4 mmol/L (20.0-26.0) 04/22/21 17:30 ABG O2 Saturation 93.6 (0-100) 04/28/21 03:23 ABG O2 Content 19.9 (0.0-44) 04/22/21 17:30 POC ABG Base Excess 4.7 04/28/21 03:23 ABG Base Excess -1.6 mmol/L (-2.0-3.0) 04/22/21 17:30 ABG Hemoglobin 11.5 (12.0-17.5) L 04/28/21 03:23 ABG Oxyhemoglobin 92.9 (94-98) L 04/28/21 03:23 ABG Carboxyhemoglobin 0.9 % (0.0-5.0) 04/22/21 17:30 ABG Methemoglobin 0.3 (0.0-1.5) 04/28/21 03:23 ABG Sodium 153.3 mmol/L (136.0-145.0) H 04/28/21 03:23 ABG Potassium 3.2 mmol/L (3.40-4.50) L 04/28/21 03:23 ABG Chloride 115.0 mmol/L (98-107) H 04/28/21 03:23 ABG Glucose 154 mg/dL (65-95) H 04/28/21 03:23 Oxyhemoglobin 95.9 % (95.0-99.0) 04/22/21 17:30 Carboxyhemoglobin 0.5 (0.5-1.5) 04/28/21 03:23 FiO2 100 % 04/22/21 17:30 FiO2 % 100.0 04/28/21 03:23 Sodium 154 mmol/L (137-145) H 04/28/21 04:00 Potassium 3.5 mmol/L (3.6-5.0) L D 04/28/21 04:00 Chloride 114.4 mmol/L (98-107) H 04/28/21 04:00 Carbon Dioxide 31 mmol/L (22-30) H 04/28/21 04:00 Anion Gap 12 mmol/L 04/28/21 04:00 BUN 32 mg/dL (7-17) H 04/28/21 04:00 Creatinine 0.8 mg/dL (0.6-1.2) 04/28/21 04:00 Estimated GFR > 60 ml/min 04/28/21 04:00 BUN/Creatinine Ratio 40 % 04/28/21 04:00 Glucose 148 mg/dL (65-100) H 04/28/21 04:00 POC Glucose 153 mg/dL (70-105) H 04/28/21 06:05 Calcium 9.0 mg/dL (8.4-10.2) 04/28/21 04:00 Phosphorus 2.90 mg/dL (2.5-4.5) D 04/25/21 07:42 Magnesium 2.40 mg/dL (1.7-2.3) H 04/24/21 10:00 Total Bilirubin 0.20 mg/dL (0.1-1.2) 04/28/21 04:00 AST 27 units/L (5-40) 04/28/21 04:00 ALT 31 units/L (7-56) 04/28/21 04:00 Alkaline Phosphatase 121 units/L (35-129) 04/28/21 04:00 Ammonia 58.0 umol/L (25-60) 04/28/21 04:45 Total Creatine Kinase 396 units/L (30-135) H 04/24/21 10:00 CK-MB (CK-2) 22.4 ng/mL (0.0-4.0) H 04/21/21 16:32 CK-MB (CK-2) Rel Index 0.7 (0-4) 04/21/21 16:32 Troponin T 0.055 ng/mL (0.00-0.029) H 04/21/21 16:32 Total Protein 6.0 g/dL (6.3-8.2) L 04/28/21 04:00 Albumin 2.4 g/dL (3.9-5) L 04/28/21 04:00 Albumin/Globulin Ratio 0.7 % 04/28/21 04:00 Triglycerides 235 mg/dL (2-149) H 04/21/21 16:32 Cholesterol 220 mg/dL (50-199) H 04/21/21 16:32 LDL Cholesterol Direct 142 mg/dL (50-130) H 04/21/21 16:32 HDL Cholesterol 36 mg/dL (40-59) L 04/21/21 16:32 Cholesterol/HDL Ratio 6.11 % 04/21/21 16:32 TSH 0.876 mlU/mL (0.270-4.200) 04/21/21 16:32 Free T4 1.05 ng/dL (0.76-1.46) 04/21/21 16:32 Arterial Blood Glucose 154 mg/dL (65-95) H 04/28/21 03:23 Arterial Blood Ionized Calcium 5.0 mg/dL (4.6-5.3) 04/28/21 03:23 Urine Color Yellow (Yellow) 04/21/21 Unknown Urine Turbidity Clear (Clear) 04/21/21 Unknown Urine pH 5.0 (5.0-7.0) 04/21/21 Unknown Ur Specific [place] 1.014 (1.003-1.030) 04/21/21 Unknown Urine Protein 100 mg/dl mg/dL (Negative) 04/21/21 Unknown Urine Glucose (UA) Neg mg/dL (Negative) 04/21/21 Unknown Urine Ketones Tr mg/dL (Negative) 04/21/21 Unknown Urine Blood Lg (Negative) 04/21/21 Unknown Urine Nitrite Neg (Negative) 04/21/21 Unknown Urine Bilirubin Neg (Negative) 04/21/21 Unknown Urine Urobilinogen 2.0 mg/dL (<2.0) 04/21/21 Unknown Ur Leukocyte Esterase Neg (Negative) 04/21/21 Unknown Urine WBC (Auto) 5.0 /HPF (0.0-6.0) 04/21/21 Unknown Urine RBC (Auto) 1.0 /HPF (0.0-6.0) 04/21/21 Unknown U Epithel Cells (Auto) 1.0 /HPF (0-13.0) 04/21/21 Unknown Urine Mucus Few /HPF 04/21/21 Unknown Urine Creatinine 138.9 mg/dL (0.1-20.0) H 04/22/21 13:03 Urine Total Protein 86 mg/dL (5-11.8) H 04/22/21 13:03 Urine Opiates Screen Negative 04/21/21 Unknown Urine Methadone Screen Negative 04/21/21 Unknown Ur Barbiturates Screen Negative 04/21/21 Unknown Ur Phencyclidine Scrn Negative 04/21/21 Unknown Ur Amphetamines Screen Negative 04/21/21 Unknown U Benzodiazepines Scrn Negative 04/21/21 Unknown Urine Cocaine Screen Negative 04/21/21 Unknown U Marijuana (THC) Screen Negative 04/21/21 Unknown Drugs of Abuse Note Disclamer 04/21/21 Unknown Plasma/Serum Alcohol < 0.01 % (0-0.07) 04/21/21 16:32 Coronavirus (PCR) Negative (Negative) 04/23/21 Unknown Microbiology: Microbiology 04/21/21 15:44 Tracheal Aspirate Sputum Culture - Final [place]/IV: Voiding Method External Female Catheter Active Medications - Current Medications Current Medications: Generic Name Dose Route Start Last Admin Trade Name Freq PRN Reason Stop Dose Admin Acetaminophen 650 mg 04/21/21 21:11 Acetaminophen 325 Mg Tab PO Q4H PRN Pain MILD(1-3)/Fever >100.5/DICKINSON Lipase/Protease/Amylase 1 each 04/22/21 10:51 Lipase 10,500/Protease 25,000/Amylase 43,750 (Units) Dr Connor FEEDTUBE PRN PRN For Clogged Feeding Tube Enoxaparin Sodium 80 mg 04/24/21 14:00 04/28/21 01:44 Enoxaparin 80 Mg/0.8 Ml Inj SUB-Q 80 mg Q12H MINOR Administration Famotidine 20 mg 04/24/21 10:00 04/28/21 09:29 Famotidine 20 Mg Tab PO 20 mg BID MINOR Administration Hydralazine HCl 10 mg 04/28/21 01:47 Hydralazine 20 Mg/1 Ml Inj IV Q6H PRN Hypertension Hydrophilic Ointment 1 applic 04/21/21 15:46 Lip Therapy Vaseline TP Q2HR PRN Dry Lips Fentanyl Citrate 2,000 mcg in 100 mls @ 3.515 mls/hr 04/21/21 16:00 04/27/21 21:48 Fentanyl Drip Premix IV 4 mcg/kg/hr TITR MINOR 14.061 mls/hr Administration Protocol 1 MCG/KG/HR Dexmedetomidine HCl 400 mcg/ 104 mls @ 4.144 mls/hr 04/25/21 06:00 04/28/21 06:30 Sodium Chloride IV 1 mcg/kg/hr TITRATE MINOR 20.722 mls/hr Administration Protocol 0.2 MCG/KG/HR Propofol 1,000 mg in 100 mls @ 2.19 mls/hr 04/26/21 11:00 04/28/21 09:33 Diprivan 10 Mg/Ml IV 20 mcg/kg/min TITR MINOR 8.76 mls/hr Titration Protocol 5 MCG/KG/MIN Levetiracetam 750 mg 04/25/21 10:00 04/28/21 09:29 Levetiracetam 500 Mg/5 Ml Oral Liqd PO 750 mg BID MINOR Administration Lorazepam 2 mg 04/26/21 10:55 04/27/21 02:52 Lorazepam 2 Mg/Ml Vial IV 2 mg Q4H PRN Administration Agitation Methylprednisolone Sodium Succinate 60 mg 04/28/21 06:00 04/28/21 06:27 Methylprednisolone Sod Succinate 40 Mg/1 Ml Inj IV 60 mg Q6H MINOR Administration Multi-Ingred Cream/Lotion/Oil/Oint 1 applic 04/21/21 15:46 Mineral Oil/Petrolatum, White Ophth Oint 3.5 Gm OU Q4HR PRN Dry Eye(s) Ondansetron HCl 4 mg 04/26/21 06:15 Ondansetron 4 Mg/2 Ml Inj IV Q6HR PRN Nausea And Vomiting Senna/Docusate Sodium 1 tab 04/26/21 22:00 04/27/21 21:45 Sennosides/Docusate Sodium 8.6/50 Mg Tab FEEDTUBE 1 tab QHS MINOR Administration Simple Syrup 15 ml 04/22/21 10:51 Simple Syrup 15 Ml FEEDTUBE PRN PRN Hypoglycemia Simple Syrup 30 ml 04/22/21 10:51 Simple Syrup 15 Ml FEEDTUBE PRN PRN Hypoglycemia Sodium Bicarbonate 325 mg 04/22/21 10:51 Sodium Bicarbonate 325 Mg Tab FEEDTUBE PRN PRN For Clogged Feeding Tube Sodium Chloride 10 ml 04/21/21 22:00 04/28/21 09:38 Sodium Chloride 0.9% 10 Ml Flush Syringe IV 10 ml BID MINOR Administration Sodium Chloride 10 ml 04/21/21 21:11 04/27/21 02:54 Sodium Chloride 0.9% 10 Ml Flush Syringe IV 10 ml PRN PRN Administration LINE FLUSH Nutrition/Malnutrition Assess - Dietary Evaluation Nutrition/Malnutrition Findings: Nutrition Notes Start: 04/22/21 10:45 Freq: Status: Active Protocol: Document 04/24/21 14:58 [facility] (Rec: 04/24/21 15:04 [facility] [id number]) Nutrition Notes Initial or Follow up Reassessment Current Diagnosis Acute Kidney Injury, Hypertension,Stroke, Hyperlipidemia Other Pertinent Diagnosis New onset seizures, AMS, pulmonary embolism Current Diet TF - Nepro 35ml/hr Labs/Tests reviewed Pertinent Medications reviewed Height 5 ft 9 in Weight 79.7 kg [place] Body Weight (kg) 65.90 BMI 25.9 Weight change and time frame wt change noted Weight Status Appropriate Subjective/Other Information Per RN, pt tolerating TF at goal rate. Pt remains on vent support. Percent of energy/protein needs met: 89% energy 71% pro Burn Absent Trauma Absent #1 Nutrition Diagnosis Inadequate oral intake Diagnosis Progress(for reassessment Continues documentation) Is patient on ventilator? Yes Is Patient Ambulatory and/or Out of Bed No REE-([facility]-confined to bed) 7713.491 Calculation Used for Recommendations [facility] Additional Notes Pro needs 1.2-2g/k-159g/ day Fluid needs 1ml/kcal Nutrition Intervention Nutrition Support: Continue Nepro at 35ml/hr with 150ml water flush q4h. Kcal 1,512 Protein (gm) 68 Carbohydrates (gm) 135 Fat (gm) 81 Fluid (mL) 611 Fiber (gm) 11 Goal #1 TF tolerance Goal #2 TF to meet at least 75% energy and pro needs Follow-Up By: 05/01/21 Additional Comments F/U: stable TF, vent status, wt
[2021-04-28] MEDS ORDERED: METOCLOPRAMIDE 10 MG/2 ML INJ IV PRN (09:52)
--- NOTE | 2021-04-28 10:23 | XRay Report ---
ABDOMEN 1 VIEW 04/28/2021 9:53 AM INDICATION / CLINICAL INFORMATION: constipation. COMPARISON: None available. FINDINGS: TUBES / LINES: NG tube within the stomach. BOWEL GAS PATTERN: Nonspecific bowel gas pattern. FREE AIR / EXTRALUMINAL GAS: None. Signer Name: Gordy Rebollar MD Signed: 04/28/2021 10:19 AM Workstation Name: [email or web address]
[2021-04-28] MEDS: fentaNYL DRIP Premix 2,000 MCG/100 ML BAG IV SCH ×3 (10:51→23:39)
--- NOTE | 2021-04-28 12:57 | Progress Note ---
Assessment and Plan 04/28/2021: Patient remained heavily sedated on multiple sedative medications. Vital signs have remained stable she has remained intubated. Remains severely hypoxic on 100% oxygen with oxygen saturations in low 90s. This morning the PaO2 was 76. Will try to wean FiO2 a little bit to 95% if tolerated. Overall prognosis appears to be grave 04/27/2021: Patient continues require heavy sedation, agitated otherwise. Remain on mechanical ventilator on assist control of 20. Remains on PEEP with FiO2 100% O2 sats around 90 to 92%. Nursing report of elevated gastric residuals from tube feedings. And apparently she had vomited once. We will continue with current vent settings prognosis appears to be poor. Consider Reglan for impro ving gastric emptying. 04/26/21: Dropped tidal volume to 300. Keep PEEP at 16. Repeat ABG at 1230. Now that BP is better will give lasix 40 IV x1. Please assess again tomorrow and see if she would benefit from this. Pulse dose steroids through tomorrow and then solumedrol 60q6 starting on Thursday. Spoke with daughter over the phone who confirmed that mother was a smoker, heavy for 30+ years. Will start on BID pulmicort and brovana therapy. Overall prognosis discussed with daughter regarding possible need for trach and vent dependence. She asked about lung tx which I explained is not an option at this time. She seemed to express understanding but was mainly in shock as she had no idea her mother had ILD and per daughter, mother never saw a lung physician. Guarded to poor prognosis. My partner rounding over the weekend, I am back on Thursday. 04/25/21: Picc line today. Increase PEEP to 16. Dropped TV back to 375. pH of 7.2 and greater is acceptable. Will also pulse dose for the next 72 hours and then transition to q6 dosing on Thursday. Will discuss current clinical state with daughter. Serial ABG's today to make sure pH stays where it needs to be and hopeful improvement in oxygenation. Guarded prognosis. 04/24/21: Will drop TV to 375 and Increase PEEP to 14. Will repeat ABG in one hour. If no improvements, may need to consider IV steroids for 48-72 hours. Exact etiology of chronic lung disease is not known. Would prefer not to give sedation vacation given high levels of oxygen required as agitation could make things worse. Right now, unable to determine current neuro state. Lungs are very very sick and even though this is a chronic issue, now with her drive diminished from the ventilator, most likely will be a difficult wean. Will discuss with family soon what the next steps could potentially be but would need to assess mental state first. Guarded prognosis. 1. Increase PEEP and repeat ABG 2. May need to consider IV steroids 3. Follow up neuro recs 4. Guarded prognosis. cCT 31 minutes. Subjective Date of service: 04/28/21 Principal diagnosis: Acute kidney injury, rhabdomyolysis Interval history: No change remains intubated and heavily sedated. Still on 100% FiO2 with PEEP. O2 sats low 90s. However blood gases have shown improvement Objective Vital Signs - 12hr 04/28/21 04/28/21 04/28/21 01:00 01:16 01:30 Temperature Pulse Rate 58 L 57 L 58 L Pulse Rate [ From Monitor] Respiratory 13 12 12 Rate Blood Pressure O2 Sat by Pulse 96 95 94 Oximetry 04/28/21 04/28/21 04/28/21 01:46 02:00 02:16 Temperature Pulse Rate 56 L 57 L 55 L Pulse Rate [ From Monitor] Respiratory 11 L 11 L 14 Rate Blood Pressure O2 Sat by Pulse 94 95 92 Oximetry 04/28/21 04/28/21 04/28/21 02:30 02:46 03:00 Temperature Pulse Rate 58 L 57 L 60 Pulse Rate [ From Monitor] Respiratory 13 12 13 Rate Blood Pressure O2 Sat by Pulse 93 93 94 Oximetry 04/28/21 04/28/21 04/28/21 03:16 03:30 03:46 Temperature Pulse Rate 57 L 55 L 56 L Pulse Rate [ From Monitor] Respiratory 12 11 L 12 Rate Blood Pressure O2 Sat by Pulse 93 94 95 Oximetry 04/28/21 04/28/21 04/28/21 04:00 04:16 04:30 Temperature Pulse Rate 55 L 57 L 56 L Pulse Rate [ 56 L From Monitor] Respiratory 12 18 15 Rate Blood Pressure O2 Sat by Pulse 95 96 95 Oximetry 04/28/21 04/28/21 04/28/21 04:33 04:46 05:00 Temperature Pulse Rate 54 L 55 L 61 Pulse Rate [ From Monitor] Respiratory 13 15 Rate Blood Pressure 164/86 O2 Sat by Pulse 96 93 92 Oximetry 04/28/21 04/28/21 04/28/21 05:16 05:30 05:46 Temperature Pulse Rate 62 65 72 Pulse Rate [ From Monitor] Respiratory 14 14 13 Rate Blood Pressure O2 Sat by Pulse 89 89 90 Oximetry 04/28/21 04/28/21 04/28/21 06:00 06:16 06:30 Temperature Pulse Rate 75 73 74 Pulse Rate [ From Monitor] Respiratory 14 14 16 Rate Blood Pressure O2 Sat by Pulse 91 91 90 Oximetry 04/28/21 04/28/21 04/28/21 06:46 07:00 07:16 Temperature Pulse Rate 72 73 74 Pulse Rate [ From Monitor] Respiratory 14 16 17 Rate Blood Pressure 132/85 O2 Sat by Pulse 88 89 87 Oximetry 04/28/21 04/28/21 04/28/21 07:30 07:46 07:56 Temperature Pulse Rate 71 79 78 Pulse Rate [ From Monitor] Respiratory 16 16 Rate Blood Pressure 132/85 132/85 123/61 O2 Sat by Pulse 87 87 88 Oximetry 04/28/21 04/28/21 04/28/21 08:00 08:16 08:30 Temperature 100.9 F H Pulse Rate 112 H 80 88 Pulse Rate [ 105 H From Monitor] Respiratory 19 19 24 Rate Blood Pressure 132/85 132/85 132/85 O2 Sat by Pulse 81 L 88 89 Oximetry 04/28/21 04/28/21 04/28/21 08:46 09:00 09:16 Temperature Pulse Rate 91 H 107 H 120 H Pulse Rate [ From Monitor] Respiratory 24 28 H 30 H Rate Blood Pressure 132/85 132/85 132/85 O2 Sat by Pulse 89 89 88 Oximetry 04/28/21 04/28/21 04/28/21 09:22 09:30 09:46 Temperature 97.9 F Pulse Rate 129 H 123 H Pulse Rate [ From Monitor] Respiratory 27 H 31 H Rate Blood Pressure 132/85 132/85 O2 Sat by Pulse 87 87 Oximetry 04/28/21 04/28/21 04/28/21 10:00 10:15 10:30 Temperature Pulse Rate 122 H 113 H 116 H Pulse Rate [ From Monitor] Respiratory 35 H 34 H 36 H Rate Blood Pressure 132/85 132/85 132/85 O2 Sat by Pulse 87 86 87 Oximetry 04/28/21 04/28/21 04/28/21 10:46 11:00 11:16 Temperature Pulse Rate 113 H 101 H 97 H Pulse Rate [ From Monitor] Respiratory 35 H 28 H 25 H Rate Blood Pressure 132/85 132/85 132/85 O2 Sat by Pulse 88 88 88 Oximetry 04/28/21 04/28/21 04/28/21 11:30 11:46 12:00 Temperature 97.9 F Pulse Rate 104 H 97 H 111 H Pulse Rate [ 108 H From Monitor] Respiratory 24 24 28 H Rate Blood Pressure 132/85 132/85 132/85 O2 Sat by Pulse 89 89 90 Oximetry Constitutional: no acute distress, other (Sedated) Ascultation: Bilateral: rales, rhonchi CBC and BMP: 04/28/21 04:45 04/28/21 04:00 ABG, PT/INR, D-dimer: ABG ABG pH 7.365 (7.320-7.450) 04/28/21 03:23 POC ABG pCO2 55.9 mmHg (32.0-48.0) H 04/28/21 03:23 ABG pCO2 46.0 mm Hg 04/22/21 17:30 POC ABG pO2 76.2 mmHg (83-108) L 04/28/21 03:23 ABG pO2 99.6 mm Hg (80.0-90.0) H 04/22/21 17:30 POC ABG HCO3 31.2 04/28/21 03:23 ABG O2 Saturation 93.6 (0-100) 04/28/21 03:23 PT/INR, D-dimer PT 13.2 Sec. (12.2-14.9) 04/22/21 00:32 INR 0.95 (0.87-1.13) 04/22/21 00:32 D-Dimer 1522.26 ng/mlDDU (0-234) H 04/21/21 16:30 Abnormal lab findings: Abnormal Labs 04/21/21 04/21/21 04/21/21 14:40 15:42 16:30 RBC Hgb Hct RDW Lymph % (Auto) Elbert % (Auto) Lymph # (Auto) Seg Neutrophils % Seg Neuts % (Manual) Lymphocytes % (Manual) Monocytes % (Manual) Lymphocytes # (Manual) D-Dimer 1522.26 H Heparin Anti-Xa Level ABG pH POC ABG pCO2 POC ABG pO2 45.5 L 69.9 L ABG pO2 ABG Hemoglobin ABG Oxyhemoglobin 78.6 L 90.2 L ABG Sodium ABG Potassium ABG Chloride 111.0 H ABG Glucose 156 H 148 H Carboxyhemoglobin Sodium Potassium Chloride Carbon Dioxide BUN Creatinine Glucose POC Glucose Calcium Phosphorus Magnesium AST ALT Total Creatine Kinase CK-MB (CK-2) Troponin T Total Protein Albumin Triglycerides Cholesterol LDL Cholesterol Direct HDL Cholesterol Arterial Blood Glucose 156 H 148 H Arterial Blood Ionized Calcium 4.5 L Urine Creatinine Urine Total Protein 04/21/21 04/21/21 04/22/21 16:32 16:32 00:32 RBC 5.22 H Hgb 16.2 H 14.8 H Hct 48.6 H 44.4 H RDW 15.8 H Lymph % (Auto) Elbert % (Auto) Lymph # (Auto) Seg Neutrophils % Seg Neuts % (Manual) 79.0 H Lymphocytes % (Manual) 13.0 L Monocytes % (Manual) 8.0 H Lymphocytes # (Manual) 1.1 L D-Dimer Heparin Anti-Xa Level ABG pH POC ABG pCO2 POC ABG pO2 ABG pO2 ABG Hemoglobin ABG Oxyhemoglobin ABG Sodium ABG Potassium ABG Chloride ABG Glucose Carboxyhemoglobin Sodium Potassium Chloride Carbon Dioxide 21 L BUN 24 H Creatinine 1.3 H Glucose 130 H POC Glucose Calcium Phosphorus Magnesium AST 129 H ALT 61 H Total Creatine Kinase 3055 H CK-MB (CK-2) 22.4 H Troponin T 0.055 H Total Protein Albumin 3.6 L Triglycerides 235 H Cholesterol 220 H LDL Cholesterol Direct 142 H HDL Cholesterol 36 L Arterial Blood Glucose Arterial Blood Ionized Calcium Urine Creatinine Urine Total Protein 04/22/21 04/22/21 04/22/21 03:27 05:29 05:29 RBC Hgb 15.4 H Hct 45.8 H RDW 16.0 H Lymph % (Auto) 12.0 L Elbert % (Auto) 8.0 H Lymph # (Auto) 1.1 L Seg Neutrophils % 76.3 H Seg Neuts % (Manual) Lymphocytes % (Manual) Monocytes % (Manual) Lymphocytes # (Manual) D-Dimer Heparin Anti-Xa Level ABG pH POC ABG pCO2 POC ABG pO2 ABG pO2 ABG Hemoglobin ABG Oxyhemoglobin ABG Sodium ABG Potassium 4.7 H ABG Chloride 109.0 H ABG Glucose 155 H Carboxyhemoglobin 0.4 L Sodium Potassium 6.3 H* D Chloride Carbon Dioxide BUN 26 H Creatinine Glucose 134 H POC Glucose Calcium Phosphorus Magnesium AST 123 H ALT Total Creatine Kinase CK-MB (CK-2) Troponin T Total Protein Albumin 3.6 L Triglycerides Cholesterol LDL Cholesterol Direct HDL Cholesterol Arterial Blood Glucose 155 H Arterial Blood Ionized Calcium Urine Creatinine Urine Total Protein 04/22/21 04/22/21 04/22/21 13:03 13:25 17:30 RBC Hgb Hct RDW Lymph % (Auto) Elbert % (Auto) Lymph # (Auto) Seg Neutrophils % Seg Neuts % (Manual) Lymphocytes % (Manual) Monocytes % (Manual) Lymphocytes # (Manual) D-Dimer Heparin Anti-Xa Level ABG pH 7.343 L POC ABG pCO2 POC ABG pO2 ABG pO2 99.6 H ABG Hemoglobin ABG Oxyhemoglobin ABG Sodium ABG Potassium ABG Chloride ABG Glucose Carboxyhemoglobin Sodium Potassium Chloride Carbon Dioxide BUN Creatinine Glucose POC Glucose Calcium Phosphorus Magnesium AST ALT Total Creatine Kinase 2322 H CK-MB (CK-2) Troponin T Total Protein Albumin Triglycerides Cholesterol LDL Cholesterol Direct HDL Cholesterol Arterial Blood Glucose Arterial Blood Ionized Calcium Urine Creatinine 138.9 H Urine Total Protein 86 H 04/22/21 04/23/21 04/23/21 20:00 04:42 09:53 RBC Hgb Hct RDW Lymph % (Auto) Elbert % (Auto) Lymph # (Auto) Seg Neutrophils % Seg Neuts % (Manual) Lymphocytes % (Manual) Monocytes % (Manual) Lymphocytes # (Manual) D-Dimer Heparin Anti-Xa Level 2.00 H < 0.10 L ABG pH POC ABG pCO2 POC ABG pO2 ABG pO2 ABG Hemoglobin ABG Oxyhemoglobin 83.2 L ABG Sodium ABG Potassium ABG Chloride 113.0 H ABG Glucose 107 H Carboxyhemoglobin Sodium Potassium Chloride Carbon Dioxide BUN Creatinine Glucose POC Glucose Calcium Phosphorus Magnesium AST ALT Total Creatine Kinase CK-MB (CK-2) Troponin T Total Protein Albumin Triglycerides Cholesterol LDL Cholesterol Direct HDL Cholesterol Arterial Blood Glucose 107 H Arterial Blood Ionized Calcium Urine Creatinine Urine Total Protein 04/23/21 04/23/21 04/23/21 14:21 14:21 15:11 RBC Hgb Hct RDW 16.3 H Lymph % (Auto) Elbert % (Auto) Lymph # (Auto) Seg Neutrophils % Seg Neuts % (Manual) Lymphocytes % (Manual) Monocytes % (Manual) Lymphocytes # (Manual) D-Dimer Heparin Anti-Xa Level ABG pH POC ABG pCO2 POC ABG pO2 68.6 L ABG pO2 ABG Hemoglobin ABG Oxyhemoglobin 91.3 L ABG Sodium ABG Potassium ABG Chloride 113.0 H ABG Glucose 100 H Carboxyhemoglobin Sodium Potassium Chloride 113.1 H Carbon Dioxide 20 L BUN 18 H Creatinine Glucose POC Glucose Calcium 8.2 L Phosphorus Magnesium AST 59 H ALT Total Creatine Kinase 681 H CK-MB (CK-2) Troponin T Total Protein 5.5 L Albumin 2.3 L Triglycerides Cholesterol LDL Cholesterol Direct HDL Cholesterol Arterial Blood Glucose 100 H Arterial Blood Ionized Calcium Urine Creatinine Urine Total Protein 04/23/21 04/24/21 04/24/21 18:30 04:00 05:37 RBC Hgb Hct RDW Lymph % (Auto) Elbert % (Auto) Lymph # (Auto) Seg Neutrophils % Seg Neuts % (Manual) Lymphocytes % (Manual) Monocytes % (Manual) Lymphocytes # (Manual) D-Dimer Heparin Anti-Xa Level 1.84 H ABG pH POC ABG pCO2 POC ABG pO2 51.9 L ABG pO2 ABG Hemoglobin ABG Oxyhemoglobin 84.9 L ABG Sodium ABG Potassium ABG Chloride 112.0 H ABG Glucose 138 H Carboxyhemoglobin Sodium Potassium Chloride Carbon Dioxide BUN Creatinine Glucose POC Glucose 108 H Calcium Phosphorus Magnesium AST ALT Total Creatine Kinase CK-MB (CK-2) Troponin T Total Protein Albumin Triglycerides Cholesterol LDL Cholesterol Direct HDL Cholesterol Arterial Blood Glucose 138 H Arterial Blood Ionized Calcium Urine Creatinine Urine Total Protein 04/24/21 04/24/21 04/24/21 10:00 10:00 10:14 RBC Hgb Hct RDW 16.0 H Lymph % (Auto) Elbert % (Auto) Lymph # (Auto) Seg Neutrophils % Seg Neuts % (Manual) Lymphocytes % (Manual) Monocytes % (Manual) Lymphocytes # (Manual) D-Dimer Heparin Anti-Xa Level 0.84 H ABG pH POC ABG pCO2 POC ABG pO2 ABG pO2 ABG Hemoglobin ABG Oxyhemoglobin ABG Sodium ABG Potassium ABG Chloride ABG Glucose Carboxyhemoglobin Sodium Potassium Chloride 109.9 H Carbon Dioxide BUN Creatinine Glucose 118 H POC Glucose Calcium Phosphorus 2.00 L Magnesium 2.40 H AST 59 H ALT Total Creatine Kinase 396 H CK-MB (CK-2) Troponin T Total Protein 5.5 L Albumin 2.4 L Triglycerides Cholesterol LDL Cholesterol Direct HDL Cholesterol Arterial Blood Glucose Arterial Blood Ionized Calcium Urine Creatinine Urine Total Protein 04/24/21 04/24/21 04/24/21 11:14 12:00 15:23 RBC Hgb Hct RDW Lymph % (Auto) [place]bert % (Auto) Lymph # (Auto) Seg Neutrophils % Seg Neuts % (Manual) Lymphocytes % (Manual) Monocytes % (Manual) Lymphocytes # (Manual) D-Dimer Heparin Anti-Xa Level ABG pH 7.287 L POC ABG pCO2 54.3 H POC ABG pO2 58.2 L 67.5 L ABG pO2 ABG Hemoglobin ABG Oxyhemoglobin 88.3 L 89.9 L ABG Sodium ABG Potassium ABG Chloride 111.0 H 110.0 H ABG Glucose 117 H 126 H Carboxyhemoglobin 0.3 L Sodium Potassium Chloride Carbon Dioxide BUN Creatinine Glucose POC Glucose 112 H Calcium Phosphorus Magnesium AST ALT Total Creatine Kinase CK-MB (CK-2) Troponin T Total Protein Albumin Triglycerides Cholesterol LDL Cholesterol Direct HDL Cholesterol Arterial Blood Glucose 117 H 126 H Arterial Blood Ionized Calcium Urine Creatinine Urine Total Protein 04/24/21 04/24/21 04/24/21 17:58 18:00 22:56 RBC Hgb Hct RDW Lymph % (Auto) Elbert % (Auto) Lymph # (Auto) Seg Neutrophils % Seg Neuts % (Manual) Lymphocytes % (Manual) Monocytes % (Manual) Lymphocytes # (Manual) D-Dimer Heparin Anti-Xa Level ABG pH POC ABG pCO2 POC ABG pO2 53.3 L ABG pO2 ABG Hemoglobin ABG Oxyhemoglobin 86.2 L ABG Sodium ABG Potassium ABG Chloride 111.0 H ABG Glucose 115 H Carboxyhemoglobin 0.4 L Sodium Potassium Chloride Carbon Dioxide BUN Creatinine Glucose POC Glucose 106 H 131 H Calcium Phosphorus Magnesium AST ALT Total Creatine Kinase CK-MB (CK-2) Troponin T Total Protein Albumin Triglycerides Cholesterol LDL Cholesterol Direct HDL Cholesterol Arterial Blood Glucose 115 H Arterial Blood Ionized Calcium Urine Creatinine Urine Total Protein 04/25/21 04/25/21 04/25/21 04:00 07:42 10:50 RBC Hgb Hct RDW Lymph % (Auto) [place]bert % (Auto) Lymph # (Auto) Seg Neutrophils % Seg Neuts % (Manual) Lymphocytes % (Manual) Monocytes % (Manual) Lymphocytes # (Manual) D-Dimer Heparin Anti-Xa Level ABG pH POC ABG pCO2 POC ABG pO2 48.5 L 56.5 L ABG pO2 ABG Hemoglobin 10.6 L 10.4 L ABG Oxyhemoglobin 79.4 L 86.8 L ABG Sodium ABG Potassium ABG Chloride 111.0 H 112.0 H ABG Glucose 115 H 124 H Carboxyhemoglobin 0.2 L Sodium 146 H Potassium Chloride 111.3 H Carbon Dioxide BUN Creatinine Glucose 128 H POC Glucose Calcium Phosphorus Magnesium AST ALT Total Creatine Kinase CK-MB (CK-2) Troponin T Total Protein Albumin Triglycerides Cholesterol LDL Cholesterol Direct HDL Cholesterol Arterial Blood Glucose 115 H 124 H Arterial Blood Ionized Calcium Urine Creatinine Urine Total Protein 04/25/21 04/25/21 04/25/21 11:12 13:55 16:05 RBC Hgb Hct RDW Lymph % (Auto) [place]bert % (Auto) Lymph # (Auto) Seg Neutrophils % Seg Neuts % (Manual) Lymphocytes % (Manual) Monocytes % (Manual) Lymphocytes # (Manual) D-Dimer Heparin Anti-Xa Level ABG pH POC ABG pCO2 POC ABG pO2 46.7 L 53.7 L ABG pO2 ABG Hemoglobin 10.7 L 11.1 L ABG Oxyhemoglobin 81.3 L 85.6 L ABG Sodium ABG Potassium ABG Chloride 111.0 H 111.0 H ABG Glucose 158 H 185 H Carboxyhemoglobin 0.4 L Sodium Potassium Chloride Carbon Dioxide BUN Creatinine Glucose POC Glucose 136 H Calcium Phosphorus Magnesium AST ALT Total Creatine Kinase CK-MB (CK-2) Troponin T Total Protein Albumin Triglycerides Cholesterol LDL Cholesterol Direct HDL Cholesterol Arterial Blood Glucose 158 H 185 H Arterial Blood Ionized Calcium Urine Creatinine Urine Total Protein 04/25/21 04/25/21 04/26/21 17:39 23:18 05:06 RBC Hgb Hct RDW Lymph % (Auto) [place]bert % (Auto) Lymph # (Auto) Seg Neutrophils % Seg Neuts % (Manual) Lymphocytes % (Manual) Monocytes % (Manual) Lymphocytes # (Manual) D-Dimer Heparin Anti-Xa Level ABG pH POC ABG pCO2 POC ABG pO2 ABG pO2 ABG Hemoglobin ABG Oxyhemoglobin ABG Sodium ABG Potassium ABG Chloride ABG Glucose Carboxyhemoglobin Sodium Potassium Chloride Carbon Dioxide BUN Creatinine Glucose POC Glucose 155 H 158 H 134 H Calcium Phosphorus Magnesium AST ALT Total Creatine Kinase CK-MB (CK-2) Troponin T Total Protein Albumin Triglycerides Cholesterol LDL Cholesterol Direct HDL Cholesterol Arterial Blood Glucose Arterial Blood Ionized Calcium Urine Creatinine Urine Total Protein 04/26/21 04/26/21 04/26/21 05:22 12:20 13:16 RBC Hgb Hct RDW Lymph % (Auto) [place]bert % (Auto) Lymph # (Auto) Seg Neutrophils % Seg Neuts % (Manual) Lymphocytes % (Manual) Monocytes % (Manual) Lymphocytes # (Manual) D-Dimer Heparin Anti-Xa Level ABG pH POC ABG pCO2 POC ABG pO2 52.2 L 53.9 L ABG pO2 ABG Hemoglobin 10.9 L 11.5 L ABG Oxyhemoglobin 86.5 L 86.4 L ABG Sodium 145.8 H ABG Potassium 4.6 H ABG Chloride 114.0 H 112.0 H ABG Glucose 144 H 162 H Carboxyhemoglobin 0.4 L 0.4 L Sodium Potassium Chloride Carbon Dioxide BUN Creatinine Glucose POC Glucose 160 H Calcium Phosphorus Magnesium AST ALT Total Creatine Kinase CK-MB (CK-2) Troponin T Total Protein Albumin Triglycerides Cholesterol LDL Cholesterol Direct HDL Cholesterol Arterial Blood Glucose 144 H 162 H Arterial Blood Ionized Calcium Urine Creatinine Urine Total Protein 04/26/21 04/26/21 04/26/21 14:09 18:42 23:30 RBC Hgb Hct RDW Lymph % (Auto) [place]bert % (Auto) Lymph # (Auto) Seg Neutrophils % Seg Neuts % (Manual) Lymphocytes % (Manual) Monocytes % (Manual) Lymphocytes # (Manual) D-Dimer Heparin Anti-Xa Level ABG pH POC ABG pCO2 POC ABG pO2 55.3 L ABG pO2 ABG Hemoglobin 11.6 L ABG Oxyhemoglobin 87.2 L ABG Sodium 146.6 H ABG Potassium ABG Chloride 111.0 H ABG Glucose 165 H Carboxyhemoglobin Sodium Potassium Chloride Carbon Dioxide BUN Creatinine Glucose POC Glucose 161 H 163 H Calcium Phosphorus Magnesium AST ALT Total Creatine Kinase CK-MB (CK-2) Troponin T Total Protein Albumin Triglycerides Cholesterol LDL Cholesterol Direct HDL Cholesterol Arterial Blood Glucose 165 H Arterial Blood Ionized Calcium Urine Creatinine Urine Total Protein 04/27/21 04/27/21 04/27/21 03:51 05:14 06:25 RBC 3.64 L Hgb Hct RDW 16.2 H Lymph % (Auto) [place]bert % (Auto) Lymph # (Auto) Seg Neutrophils % Seg Neuts % (Manual) Lymphocytes % (Manual) Monocytes % (Manual) Lymphocytes # (Manual) D-Dimer Heparin Anti-Xa Level ABG pH POC ABG pCO2 52.9 H POC ABG pO2 60.8 L ABG pO2 ABG Hemoglobin 11.9 L ABG Oxyhemoglobin 87.9 L ABG Sodium 147.8 H ABG Potassium ABG Chloride 111.0 H ABG Glucose 183 H Carboxyhemoglobin Sodium Potassium Chloride Carbon Dioxide BUN Creatinine Glucose POC Glucose 165 H Calcium Phosphorus Magnesium AST ALT Total Creatine Kinase CK-MB (CK-2) Troponin T Total Protein Albumin Triglycerides Cholesterol LDL Cholesterol Direct HDL Cholesterol Arterial Blood Glucose 183 H Arterial Blood Ionized Calcium Urine Creatinine Urine Total Protein 04/27/21 04/27/21 04/27/21 06:25 11:45 17:41 RBC Hgb Hct RDW Lymph % (Auto) [place]bert % (Auto) Lymph # (Auto) Seg Neutrophils % Seg Neuts % (Manual) Lymphocytes % (Manual) Monocytes % (Manual) Lymphocytes # (Manual) D-Dimer Heparin Anti-Xa Level ABG pH POC ABG pCO2 POC ABG pO2 ABG pO2 ABG Hemoglobin ABG Oxyhemoglobin ABG Sodium ABG Potassium ABG Chloride ABG Glucose Carboxyhemoglobin Sodium 148 H Potassium 5.1 H D Chloride 109.0 H Carbon Dioxide BUN 35 H Creatinine Glucose 170 H POC Glucose 184 H 172 H Calcium Phosphorus Magnesium AST 48 H ALT Total Creatine Kinase CK-MB (CK-2) Troponin T Total Protein Albumin 2.4 L Triglycerides Cholesterol LDL Cholesterol Direct HDL Cholesterol Arterial Blood Glucose Arterial Blood Ionized Calcium Urine Creatinine Urine Total Protein 04/27/21 04/28/21 04/28/21 23:16 03:23 04:00 RBC Hgb Hct RDW Lymph % (Auto) [place]bert % (Auto) Lymph # (Auto) Seg Neutrophils % Seg Neuts % (Manual) Lymphocytes % (Manual) Monocytes % (Manual) Lymphocytes # (Manual) D-Dimer Heparin Anti-Xa Level ABG pH POC ABG pCO2 55.9 H POC ABG pO2 76.2 L ABG pO2 ABG Hemoglobin 11.5 L ABG Oxyhemoglobin 92.9 L ABG Sodium 153.3 H ABG Potassium 3.2 L ABG Chloride 115.0 H ABG Glucose 154 H Carboxyhemoglobin Sodium 154 H Potassium 3.5 L D Chloride 114.4 H Carbon Dioxide 31 H BUN 32 H Creatinine Glucose 148 H POC Glucose 142 H Calcium Phosphorus Magnesium AST ALT Total Creatine Kinase CK-MB (CK-2) Troponin T Total Protein 6.0 L Albumin 2.4 L Triglycerides Cholesterol LDL Cholesterol Direct HDL Cholesterol Arterial Blood Glucose 154 H Arterial Blood Ionized Calcium Urine Creatinine Urine Total Protein 04/28/21 04/28/21 04/28/21 04:45 06:05 11:57 RBC Hgb Hct RDW 16.1 H Lymph % (Auto) [place]bert % (Auto) Lymph # (Auto) Seg Neutrophils % Seg Neuts % (Manual) Lymphocytes % (Manual) Monocytes % (Manual) Lymphocytes # (Manual) D-Dimer Heparin Anti-Xa Level ABG pH POC ABG pCO2 POC ABG pO2 ABG pO2 ABG Hemoglobin ABG Oxyhemoglobin ABG Sodium ABG Potassium ABG Chloride ABG Glucose Carboxyhemoglobin Sodium Potassium Chloride Carbon Dioxide BUN Creatinine Glucose POC Glucose 153 H 109 H Calcium Phosphorus Magnesium AST ALT Total Creatine Kinase CK-MB (CK-2) Troponin T Total Protein Albumin Triglycerides Cholesterol LDL Cholesterol Direct HDL Cholesterol Arterial Blood Glucose Arterial Blood Ionized Calcium Urine Creatinine Urine Total Protein
[2021-04-28] MEDS: DEXTROSE 5% IN WATER 1,000 ML IV SCH (16:30)
[2021-04-28] MEDS: ACETAMINOPHEN 325 MG TAB PO PRN (16:30)
[2021-04-28] MEDS: SENNOSIDES/DOCUSATE SODIUM 8.6/50 MG TAB FEEDTUBE SCH (21:43)
[2021-04-29] MEDS: methylPREDNISolone Sod Succinate 40 MG/1 ML INJ IV SCH ×4 (00:25→17:58)
[2021-04-29] MEDS: FREE WATER PO SCH ×4 (03:51→21:40)
[2021-04-29] MEDS: ENOXAPARIN 80 MG/0.8 ML INJ SUB-Q SCH ×2 (03:52→14:22)
[2021-04-29] MEDS: DEXTROSE 5% IN WATER 1,000 ML IV SCH (06:14)
[2021-04-29 06:17] LABS: BUN/Creatinine Ratio 38; Blood Urea Nitrogen 34 mg/dL (7-17); Calcium 8.7 mg/dL (8.4-10.2); Hemolysis Index 9
[2021-04-29] MEDS: FAMOTIDINE 20 MG TAB PO SCH ×2 (09:51→21:10)
[2021-04-29] MEDS: levETIRAcetam 500 MG/5 ML ORAL LIQD PO SCH ×2 (09:52→21:10)
--- NOTE | 2021-04-29 10:42 | Progress Note ---
Assessment and Plan 66 y/o female, intubated for airway protection, found to have severe ILD and no has refractory hypoxemia. 04/29/21: Continue low tidal volumes and high PEEPs. Lasix 40mg IV x1 today. Continue high dose steroids. Will start pulmicort and brovana therapy. Prognosis remains very very guarded. Follow up Triglyceride episode tomorrow. 04/26/21: Dropped tidal volume to 300. Keep PEEP at 16. Repeat ABG at 1230. Now that BP is better will give lasix 40 IV x1. Please assess again tomorrow and see if she would benefit from this. Pulse dose steroids through tomorrow and then solumedrol 60q6 starting on Thursday. Spoke with daughter over the phone who confirmed that mother was a smoker, heavy for 30+ years. Will start on BID pulmicort and brovana therapy. Overall prognosis discussed with daughter regarding possible need for trach and vent dependence. She asked about lung tx which I explained is not an option at this time. She seemed to express understanding but was mainly in shock as she had no idea her mother had ILD and per daughter, mother never saw a lung physician. Guarded to poor prognosis. My partner rounding over the weekend, I am back on Thursday. 04/25/21: Picc line today. Increase PEEP to 16. Dropped TV back to 375. pH of 7.2 and greater is acceptable. Will also pulse dose for the next 72 hours and then transition to q6 dosing on Thursday. Will discuss current clinical state with daughter. Serial ABG's today to make sure pH stays where it needs to be and hopeful improvement in oxygenation. Guarded prognosis. 04/24/21: Will drop TV to 375 and Increase PEEP to 14. Will repeat ABG in one hour. If no improvements, may need to consider IV steroids for 48-72 hours. Exact etiology of chronic lung disease is not known. Would prefer not to give sedation vacation given high levels of oxygen required as agitation could make things worse. Right now, unable to determine current neuro state. Lungs are very very sick and even though this is a chronic issue, now with her drive diminished from the ventilator, most likely will be a difficult wean. Will discuss with family soon what the next steps could potentially be but would need to assess mental state first. Guarded prognosis. 1. Increase PEEP and repeat ABG 2. May need to consider IV steroids 3. Follow up neuro recs 4. Guarded prognosis. cCT 31 minutes. Subjective Date of service: 04/29/21 Principal diagnosis: Acute kidney injury, rhabdomyolysis Interval history: no acute events. Oxygenation is better today. Still requiring 3 sedatives. Making good urine. Still on high dose steroids. Objective Vital Signs - 12hr 04/28/21 04/28/21 04/28/21 22:46 23:00 23:16 Temperature Pulse Rate 78 77 75 Pulse Rate [ From Monitor] Respiratory 18 16 17 Rate Blood Pressure 132/85 132/85 132/85 O2 Sat by Pulse 99 99 99 Oximetry 04/28/21 04/28/21 04/29/21 23:30 23:45 00:00 Temperature 99.2 F Pulse Rate 72 71 75 Pulse Rate [ 78 From Monitor] Respiratory 15 15 14 Rate Blood Pressure 132/85 91/56 83/53 O2 Sat by Pulse 99 98 98 Oximetry 04/29/21 04/29/21 04/29/21 00:15 00:28 00:30 Temperature Pulse Rate 80 76 78 Pulse Rate [ From Monitor] Respiratory 14 14 Rate Blood Pressure 76/50 88/49 77/53 O2 Sat by Pulse 97 98 98 Oximetry 04/29/21 04/29/21 04/29/21 00:45 01:00 01:16 Temperature Pulse Rate 74 70 68 Pulse Rate [ From Monitor] Respiratory 15 14 17 Rate Blood Pressure 103/61 105/70 117/69 O2 Sat by Pulse 98 98 98 Oximetry 04/29/21 04/29/21 04/29/21 01:30 01:45 02:00 Temperature Pulse Rate 74 75 77 Pulse Rate [ From Monitor] Respiratory 15 16 15 Rate Blood Pressure 117/69 104/62 96/59 O2 Sat by Pulse 95 95 95 Oximetry 04/29/21 04/29/21 04/29/21 02:15 02:30 02:45 Temperature Pulse Rate 75 76 75 Pulse Rate [ From Monitor] Respiratory 19 20 17 Rate Blood Pressure 109/64 109/64 108/76 O2 Sat by Pulse 95 96 95 Oximetry 04/29/21 04/29/21 04/29/21 03:00 03:15 03:30 Temperature Pulse Rate 78 84 77 Pulse Rate [ From Monitor] Respiratory 22 22 25 H Rate Blood Pressure 108/76 121/76 121/76 O2 Sat by Pulse 95 96 95 Oximetry 04/29/21 04/29/21 04/29/21 03:45 04:00 04:16 Temperature 94.7 F L Pulse Rate 70 74 64 Pulse Rate [ 74 From Monitor] Respiratory 21 24 16 Rate Blood Pressure 124/76 124/76 138/78 O2 Sat by Pulse 94 93 96 Oximetry 04/29/21 04/29/21 04/29/21 04:30 04:45 04:50 Temperature Pulse Rate 65 64 63 Pulse Rate [ From Monitor] Respiratory 19 28 H Rate Blood Pressure 138/78 121/80 121/80 O2 Sat by Pulse 97 97 97 Oximetry 04/29/21 04/29/21 04/29/21 05:00 05:15 05:30 Temperature Pulse Rate 64 63 64 Pulse Rate [ From Monitor] Respiratory 22 19 21 Rate Blood Pressure 138/78 131/77 126/84 O2 Sat by Pulse 96 94 95 Oximetry 04/29/21 04/29/21 04/29/21 05:45 06:00 06:15 Temperature Pulse Rate 63 65 66 Pulse Rate [ From Monitor] Respiratory 20 20 20 Rate Blood Pressure 147/81 146/82 141/85 O2 Sat by Pulse 95 94 94 Oximetry 04/29/21 04/29/21 07:48 07:55 Temperature 97.4 F L Pulse Rate 109 H Pulse Rate [ From Monitor] Respiratory Rate Blood Pressure 140/99 O2 Sat by Pulse 92 Oximetry Constitutional: no acute distress, other (Sedated) Ascultation: Bilateral: rales, rhonchi CBC and BMP: 04/28/21 04:45 04/29/21 05:35 ABG, PT/INR, D-dimer: ABG ABG pH 7.392 (7.320-7.450) 04/29/21 03:51 POC ABG pCO2 54.7 mmHg (32.0-48.0) H 04/29/21 03:51 ABG pCO2 46.0 mm Hg 04/22/21 17:30 POC ABG pO2 68.6 mmHg (83-108) L 04/29/21 03:51 ABG pO2 99.6 mm Hg (80.0-90.0) H 04/22/21 17:30 POC ABG HCO3 32.5 04/29/21 03:51 ABG O2 Saturation 92.6 (0-100) 04/29/21 03:51 PT/INR, D-dimer PT 13.2 Sec. (12.2-14.9) 04/22/21 00:32 INR 0.95 (0.87-1.13) 04/22/21 00:32 D-Dimer 1522.26 ng/mlDDU (0-234) H 04/21/21 16:30 Abnormal lab findings: Abnormal Labs 04/21/21 04/21/21 04/21/21 14:40 15:42 16:30 RBC Hgb Hct RDW Lymph % (Auto) [place] % (Auto) Lymph # (Auto) Seg Neutrophils % Seg Neuts % (Manual) Lymphocytes % (Manual) Monocytes % (Manual) Lymphocytes # (Manual) D-Dimer 1522.26 H Heparin Anti-Xa Level ABG pH POC ABG pCO2 POC ABG pO2 45.5 L 69.9 L ABG pO2 ABG Hemoglobin ABG Oxyhemoglobin 78.6 L 90.2 L ABG Sodium ABG Potassium ABG Chloride 111.0 H ABG Glucose 156 H 148 H Carboxyhemoglobin Sodium Potassium Chloride Carbon Dioxide BUN Creatinine Glucose POC Glucose Calcium Phosphorus Magnesium AST ALT Total Creatine Kinase CK-MB (CK-2) Troponin T Total Protein Albumin Triglycerides Cholesterol LDL Cholesterol Direct HDL Cholesterol Arterial Blood Glucose 156 H 148 H Arterial Blood Ionized Calcium 4.5 L Urine Creatinine Urine Total Protein 04/21/21 04/21/21 04/22/21 16:32 16:32 00:32 RBC 5.22 H Hgb 16.2 H 14.8 H Hct 48.6 H 44.4 H RDW 15.8 H Lymph % (Auto) [place] % (Auto) Lymph # (Auto) Seg Neutrophils % Seg Neuts % (Manual) 79.0 H Lymphocytes % (Manual) 13.0 L Monocytes % (Manual) 8.0 H Lymphocytes # (Manual) 1.1 L D-Dimer Heparin Anti-Xa Level ABG pH POC ABG pCO2 POC ABG pO2 ABG pO2 ABG Hemoglobin ABG Oxyhemoglobin ABG Sodium ABG Potassium ABG Chloride ABG Glucose Carboxyhemoglobin Sodium Potassium Chloride Carbon Dioxide 21 L BUN 24 H Creatinine 1.3 H Glucose 130 H POC Glucose Calcium Phosphorus Magnesium AST 129 H ALT 61 H Total Creatine Kinase 3055 H CK-MB (CK-2) 22.4 H Troponin T 0.055 H Total Protein Albumin 3.6 L Triglycerides 235 H Cholesterol 220 H LDL Cholesterol Direct 142 H HDL Cholesterol 36 L Arterial Blood Glucose Arterial Blood Ionized Calcium Urine Creatinine Urine Total Protein 04/22/21 04/22/21 04/22/21 03:27 05:29 05:29 RBC Hgb 15.4 H Hct 45.8 H RDW 16.0 H Lymph % (Auto) 12.0 L [place] % (Auto) 8.0 H Lymph # (Auto) 1.1 L Seg Neutrophils % 76.3 H Seg Neuts % (Manual) Lymphocytes % (Manual) Monocytes % (Manual) Lymphocytes # (Manual) D-Dimer Heparin Anti-Xa Level ABG pH POC ABG pCO2 POC ABG pO2 ABG pO2 ABG Hemoglobin ABG Oxyhemoglobin ABG Sodium ABG Potassium 4.7 H ABG Chloride 109.0 H ABG Glucose 155 H Carboxyhemoglobin 0.4 L Sodium Potassium 6.3 H* D Chloride Carbon Dioxide BUN 26 H Creatinine Glucose 134 H POC Glucose Calcium Phosphorus Magnesium AST 123 H ALT Total Creatine Kinase CK-MB (CK-2) Troponin T Total Protein Albumin 3.6 L Triglycerides Cholesterol LDL Cholesterol Direct HDL Cholesterol Arterial Blood Glucose 155 H Arterial Blood Ionized Calcium Urine Creatinine Urine Total Protein 04/22/21 04/22/21 04/22/21 13:03 13:25 17:30 RBC Hgb Hct RDW Lymph % (Auto) [place] % (Auto) Lymph # (Auto) Seg Neutrophils % Seg Neuts % (Manual) Lymphocytes % (Manual) Monocytes % (Manual) Lymphocytes # (Manual) D-Dimer Heparin Anti-Xa Level ABG pH 7.343 L POC ABG pCO2 POC ABG pO2 ABG pO2 99.6 H ABG Hemoglobin ABG Oxyhemoglobin ABG Sodium ABG Potassium ABG Chloride ABG Glucose Carboxyhemoglobin Sodium Potassium Chloride Carbon Dioxide BUN Creatinine Glucose POC Glucose Calcium Phosphorus Magnesium AST ALT Total Creatine Kinase 2322 H CK-MB (CK-2) Troponin T Total Protein Albumin Triglycerides Cholesterol LDL Cholesterol Direct HDL Cholesterol Arterial Blood Glucose Arterial Blood Ionized Calcium Urine Creatinine 138.9 H Urine Total Protein 86 H 04/22/21 04/23/21 04/23/21 20:00 04:42 09:53 RBC Hgb Hct RDW Lymph % (Auto) [place] % (Auto) Lymph # (Auto) Seg Neutrophils % Seg Neuts % (Manual) Lymphocytes % (Manual) Monocytes % (Manual) Lymphocytes # (Manual) D-Dimer Heparin Anti-Xa Level 2.00 H < 0.10 L ABG pH POC ABG pCO2 POC ABG pO2 ABG pO2 ABG Hemoglobin ABG Oxyhemoglobin 83.2 L ABG Sodium ABG Potassium ABG Chloride 113.0 H ABG Glucose 107 H Carboxyhemoglobin Sodium Potassium Chloride Carbon Dioxide BUN Creatinine Glucose POC Glucose Calcium Phosphorus Magnesium AST ALT Total Creatine Kinase CK-MB (CK-2) Troponin T Total Protein Albumin Triglycerides Cholesterol LDL Cholesterol Direct HDL Cholesterol Arterial Blood Glucose 107 H Arterial Blood Ionized Calcium Urine Creatinine Urine Total Protein 04/23/21 04/23/21 04/23/21 14:21 14:21 15:11 RBC Hgb Hct RDW 16.3 H Lymph % (Auto) [place] % (Auto) Lymph # (Auto) Seg Neutrophils % Seg Neuts % (Manual) Lymphocytes % (Manual) Monocytes % (Manual) Lymphocytes # (Manual) D-Dimer Heparin Anti-Xa Level ABG pH POC ABG pCO2 POC ABG pO2 68.6 L ABG pO2 ABG Hemoglobin ABG Oxyhemoglobin 91.3 L ABG Sodium ABG Potassium ABG Chloride 113.0 H ABG Glucose 100 H Carboxyhemoglobin Sodium Potassium Chloride 113.1 H Carbon Dioxide 20 L BUN 18 H Creatinine Glucose POC Glucose Calcium 8.2 L Phosphorus Magnesium AST 59 H ALT Total Creatine Kinase 681 H CK-MB (CK-2) Troponin T Total Protein 5.5 L Albumin 2.3 L Triglycerides Cholesterol LDL Cholesterol Direct HDL Cholesterol Arterial Blood Glucose 100 H Arterial Blood Ionized Calcium Urine Creatinine Urine Total Protein 04/23/21 04/24/21 04/24/21 18:30 04:00 05:37 RBC Hgb Hct RDW Lymph % (Auto) [place] % (Auto) Lymph # (Auto) Seg Neutrophils % Seg Neuts % (Manual) Lymphocytes % (Manual) Monocytes % (Manual) Lymphocytes # (Manual) D-Dimer Heparin Anti-Xa Level 1.84 H ABG pH POC ABG pCO2 POC ABG pO2 51.9 L ABG pO2 ABG Hemoglobin ABG Oxyhemoglobin 84.9 L ABG Sodium ABG Potassium ABG Chloride 112.0 H ABG Glucose 138 H Carboxyhemoglobin Sodium Potassium Chloride Carbon Dioxide BUN Creatinine Glucose POC Glucose 108 H Calcium Phosphorus Magnesium AST ALT Total Creatine Kinase CK-MB (CK-2) Troponin T Total Protein Albumin Triglycerides Cholesterol LDL Cholesterol Direct HDL Cholesterol Arterial Blood Glucose 138 H Arterial Blood Ionized Calcium Urine Creatinine Urine Total Protein 04/24/21 04/24/21 04/24/21 10:00 10:00 10:14 RBC Hgb Hct RDW 16.0 H Lymph % (Auto) [place] % (Auto) Lymph # (Auto) Seg Neutrophils % Seg Neuts % (Manual) Lymphocytes % (Manual) Monocytes % (Manual) Lymphocytes # (Manual) D-Dimer Heparin Anti-Xa Level 0.84 H ABG pH POC ABG pCO2 POC ABG pO2 ABG pO2 ABG Hemoglobin ABG Oxyhemoglobin ABG Sodium ABG Potassium ABG Chloride ABG Glucose Carboxyhemoglobin Sodium Potassium Chloride 109.9 H Carbon Dioxide BUN Creatinine Glucose 118 H POC Glucose Calcium Phosphorus 2.00 L Magnesium 2.40 H AST 59 H ALT Total Creatine Kinase 396 H CK-MB (CK-2) Troponin T Total Protein 5.5 L Albumin 2.4 L Triglycerides Cholesterol LDL Cholesterol Direct HDL Cholesterol Arterial Blood Glucose Arterial Blood Ionized Calcium Urine Creatinine Urine Total Protein 04/24/21 04/24/21 04/24/21 11:14 12:00 15:23 RBC Hgb Hct RDW Lymph % (Auto) [place] % (Auto) Lymph # (Auto) Seg Neutrophils % Seg Neuts % (Manual) Lymphocytes % (Manual) Monocytes % (Manual) Lymphocytes # (Manual) D-Dimer Heparin Anti-Xa Level ABG pH 7.287 L POC ABG pCO2 54.3 H POC ABG pO2 58.2 L 67.5 L ABG pO2 ABG Hemoglobin ABG Oxyhemoglobin 88.3 L 89.9 L ABG Sodium ABG Potassium ABG Chloride 111.0 H 110.0 H ABG Glucose 117 H 126 H Carboxyhemoglobin 0.3 L Sodium Potassium Chloride Carbon Dioxide BUN Creatinine Glucose POC Glucose 112 H Calcium Phosphorus Magnesium AST ALT Total Creatine Kinase CK-MB (CK-2) Troponin T Total Protein Albumin Triglycerides Cholesterol LDL Cholesterol Direct HDL Cholesterol Arterial Blood Glucose 117 H 126 H Arterial Blood Ionized Calcium Urine Creatinine Urine Total Protein 04/24/21 04/24/21 04/24/21 17:58 18:00 22:56 RBC Hgb Hct RDW Lymph % (Auto) [place] % (Auto) Lymph # (Auto) Seg Neutrophils % Seg Neuts % (Manual) Lymphocytes % (Manual) Monocytes % (Manual) Lymphocytes # (Manual) D-Dimer Heparin Anti-Xa Level ABG pH POC ABG pCO2 POC ABG pO2 53.3 L ABG pO2 ABG Hemoglobin ABG Oxyhemoglobin 86.2 L ABG Sodium ABG Potassium ABG Chloride 111.0 H ABG Glucose 115 H Carboxyhemoglobin 0.4 L Sodium Potassium Chloride Carbon Dioxide BUN Creatinine Glucose POC Glucose 106 H 131 H Calcium Phosphorus Magnesium AST ALT Total Creatine Kinase CK-MB (CK-2) Troponin T Total Protein Albumin Triglycerides Cholesterol LDL Cholesterol Direct HDL Cholesterol Arterial Blood Glucose 115 H Arterial Blood Ionized Calcium Urine Creatinine Urine Total Protein 04/25/21 04/25/21 04/25/21 04:00 07:42 10:50 RBC Hgb Hct RDW Lymph % (Auto) [place] % (Auto) Lymph # (Auto) Seg Neutrophils % Seg Neuts % (Manual) Lymphocytes % (Manual) Monocytes % (Manual) Lymphocytes # (Manual) D-Dimer Heparin Anti-Xa Level ABG pH POC ABG pCO2 POC ABG pO2 48.5 L 56.5 L ABG pO2 ABG Hemoglobin 10.6 L 10.4 L ABG Oxyhemoglobin 79.4 L 86.8 L ABG Sodium ABG Potassium ABG Chloride 111.0 H 112.0 H ABG Glucose 115 H 124 H Carboxyhemoglobin 0.2 L Sodium 146 H Potassium Chloride 111.3 H Carbon Dioxide BUN Creatinine Glucose 128 H POC Glucose Calcium Phosphorus Magnesium AST ALT Total Creatine Kinase CK-MB (CK-2) Troponin T Total Protein Albumin Triglycerides Cholesterol LDL Cholesterol Direct HDL Cholesterol Arterial Blood Glucose 115 H 124 H Arterial Blood Ionized Calcium Urine Creatinine Urine Total Protein 04/25/21 04/25/21 04/25/21 11:12 13:55 16:05 RBC Hgb Hct RDW Lymph % (Auto) [place] % (Auto) Lymph # (Auto) Seg Neutrophils % Seg Neuts % (Manual) Lymphocytes % (Manual) Monocytes % (Manual) Lymphocytes # (Manual) D-Dimer Heparin Anti-Xa Level ABG pH POC ABG pCO2 POC ABG pO2 46.7 L 53.7 L ABG pO2 ABG Hemoglobin 10.7 L 11.1 L ABG Oxyhemoglobin 81.3 L 85.6 L ABG Sodium ABG Potassium ABG Chloride 111.0 H 111.0 H ABG Glucose 158 H 185 H Carboxyhemoglobin 0.4 L Sodium Potassium Chloride Carbon Dioxide BUN Creatinine Glucose POC Glucose 136 H Calcium Phosphorus Magnesium AST ALT Total Creatine Kinase CK-MB (CK-2) Troponin T Total Protein Albumin Triglycerides Cholesterol LDL Cholesterol Direct HDL Cholesterol Arterial Blood Glucose 158 H 185 H Arterial Blood Ionized Calcium Urine Creatinine Urine Total Protein 04/25/21 04/25/21 04/26/21 17:39 23:18 05:06 RBC Hgb Hct RDW Lymph % (Auto) [place] % (Auto) Lymph # (Auto) Seg Neutrophils % Seg Neuts % (Manual) Lymphocytes % (Manual) Monocytes % (Manual) Lymphocytes # (Manual) D-Dimer Heparin Anti-Xa Level ABG pH POC ABG pCO2 POC ABG pO2 ABG pO2 ABG Hemoglobin ABG Oxyhemoglobin ABG Sodium ABG Potassium ABG Chloride ABG Glucose Carboxyhemoglobin Sodium Potassium Chloride Carbon Dioxide BUN Creatinine Glucose POC Glucose 155 H 158 H 134 H Calcium Phosphorus Magnesium AST ALT Total Creatine Kinase CK-MB (CK-2) Troponin T Total Protein Albumin Triglycerides Cholesterol LDL Cholesterol Direct HDL Cholesterol Arterial Blood Glucose Arterial Blood Ionized Calcium Urine Creatinine Urine Total Protein 04/26/21 04/26/21 04/26/21 05:22 12:20 13:16 RBC Hgb Hct RDW Lymph % (Auto) [place] % (Auto) Lymph # (Auto) Seg Neutrophils % Seg Neuts % (Manual) Lymphocytes % (Manual) Monocytes % (Manual) Lymphocytes # (Manual) D-Dimer Heparin Anti-Xa Level ABG pH POC ABG pCO2 POC ABG pO2 52.2 L 53.9 L ABG pO2 ABG Hemoglobin 10.9 L 11.5 L ABG Oxyhemoglobin 86.5 L 86.4 L ABG Sodium 145.8 H ABG Potassium 4.6 H ABG Chloride 114.0 H 112.0 H ABG Glucose 144 H 162 H Carboxyhemoglobin 0.4 L 0.4 L Sodium Potassium Chloride Carbon Dioxide BUN Creatinine Glucose POC Glucose 160 H Calcium Phosphorus Magnesium AST ALT Total Creatine Kinase CK-MB (CK-2) Troponin T Total Protein Albumin Triglycerides Cholesterol LDL Cholesterol Direct HDL Cholesterol Arterial Blood Glucose 144 H 162 H Arterial Blood Ionized Calcium Urine Creatinine Urine Total Protein 04/26/21 04/26/21 04/26/21 14:09 18:42 23:30 RBC Hgb Hct RDW Lymph % (Auto) [place] % (Auto) Lymph # (Auto) Seg Neutrophils % Seg Neuts % (Manual) Lymphocytes % (Manual) Monocytes % (Manual) Lymphocytes # (Manual) D-Dimer Heparin Anti-Xa Level ABG pH POC ABG pCO2 POC ABG pO2 55.3 L ABG pO2 ABG Hemoglobin 11.6 L ABG Oxyhemoglobin 87.2 L ABG Sodium 146.6 H ABG Potassium ABG Chloride 111.0 H ABG Glucose 165 H Carboxyhemoglobin Sodium Potassium Chloride Carbon Dioxide BUN Creatinine Glucose POC Glucose 161 H 163 H Calcium Phosphorus Magnesium AST ALT Total Creatine Kinase CK-MB (CK-2) Troponin T Total Protein Albumin Triglycerides Cholesterol LDL Cholesterol Direct HDL Cholesterol Arterial Blood Glucose 165 H Arterial Blood Ionized Calcium Urine Creatinine Urine Total Protein 04/27/21 04/27/21 04/27/21 03:51 05:14 06:25 RBC 3.64 L Hgb Hct RDW 16.2 H Lymph % (Auto) [place] % (Auto) Lymph # (Auto) Seg Neutrophils % Seg Neuts % (Manual) Lymphocytes % (Manual) Monocytes % (Manual) Lymphocytes # (Manual) D-Dimer Heparin Anti-Xa Level ABG pH POC ABG pCO2 52.9 H POC ABG pO2 60.8 L ABG pO2 ABG Hemoglobin 11.9 L ABG Oxyhemoglobin 87.9 L ABG Sodium 147.8 H ABG Potassium ABG Chloride 111.0 H ABG Glucose 183 H Carboxyhemoglobin Sodium Potassium Chloride Carbon Dioxide BUN Creatinine Glucose POC Glucose 165 H Calcium Phosphorus Magnesium AST ALT Total Creatine Kinase CK-MB (CK-2) Troponin T Total Protein Albumin Triglycerides Cholesterol LDL Cholesterol Direct HDL Cholesterol Arterial Blood Glucose 183 H Arterial Blood Ionized Calcium Urine Creatinine Urine Total Protein 04/27/21 04/27/21 04/27/21 06:25 11:45 17:41 RBC Hgb Hct RDW Lymph % (Auto) [place] % (Auto) Lymph # (Auto) Seg Neutrophils % Seg Neuts % (Manual) Lymphocytes % (Manual) Monocytes % (Manual) Lymphocytes # (Manual) D-Dimer Heparin Anti-Xa Level ABG pH POC ABG pCO2 POC ABG pO2 ABG pO2 ABG Hemoglobin ABG Oxyhemoglobin ABG Sodium ABG Potassium ABG Chloride ABG Glucose Carboxyhemoglobin Sodium 148 H Potassium 5.1 H D Chloride 109.0 H Carbon Dioxide BUN 35 H Creatinine Glucose 170 H POC Glucose 184 H 172 H Calcium Phosphorus Magnesium AST 48 H ALT Total Creatine Kinase CK-MB (CK-2) Troponin T Total Protein Albumin 2.4 L Triglycerides Cholesterol LDL Cholesterol Direct HDL Cholesterol Arterial Blood Glucose Arterial Blood Ionized Calcium Urine Creatinine Urine Total Protein 04/27/21 04/28/21 04/28/21 23:16 03:23 04:00 RBC Hgb Hct RDW Lymph % (Auto) [place] % (Auto) Lymph # (Auto) Seg Neutrophils % Seg Neuts % (Manual) Lymphocytes % (Manual) Monocytes % (Manual) Lymphocytes # (Manual) D-Dimer Heparin Anti-Xa Level ABG pH POC ABG pCO2 55.9 H POC ABG pO2 76.2 L ABG pO2 ABG Hemoglobin 11.5 L ABG Oxyhemoglobin 92.9 L ABG Sodium 153.3 H ABG Potassium 3.2 L ABG Chloride 115.0 H ABG Glucose 154 H Carboxyhemoglobin Sodium 154 H Potassium 3.5 L D Chloride 114.4 H Carbon Dioxide 31 H BUN 32 H Creatinine Glucose 148 H POC Glucose 142 H Calcium Phosphorus Magnesium AST ALT Total Creatine Kinase CK-MB (CK-2) Troponin T Total Protein 6.0 L Albumin 2.4 L Triglycerides Cholesterol LDL Cholesterol Direct HDL Cholesterol Arterial Blood Glucose 154 H Arterial Blood Ionized Calcium Urine Creatinine Urine Total Protein 04/28/21 04/28/21 04/28/21 04:45 06:05 11:57 RBC Hgb Hct RDW 16.1 H Lymph % (Auto) [place] % (Auto) Lymph # (Auto) Seg Neutrophils % Seg Neuts % (Manual) Lymphocytes % (Manual) Monocytes % (Manual) Lymphocytes # (Manual) D-Dimer Heparin Anti-Xa Level ABG pH POC ABG pCO2 POC ABG pO2 ABG pO2 ABG Hemoglobin ABG Oxyhemoglobin ABG Sodium ABG Potassium ABG Chloride ABG Glucose Carboxyhemoglobin Sodium Potassium Chloride Carbon Dioxide BUN Creatinine Glucose POC Glucose 153 H 109 H Calcium Phosphorus Magnesium AST ALT Total Creatine Kinase CK-MB (CK-2) Troponin T Total Protein Albumin Triglycerides Cholesterol LDL Cholesterol Direct HDL Cholesterol Arterial Blood Glucose Arterial Blood Ionized Calcium Urine Creatinine Urine Total Protein 04/28/21 04/28/21 04/29/21 17:39 23:58 03:51 RBC Hgb Hct RDW Lymph % (Auto) [place] % (Auto) Lymph # (Auto) Seg Neutrophils % Seg Neuts % (Manual) Lymphocytes % (Manual) Monocytes % (Manual) Lymphocytes # (Manual) D-Dimer Heparin Anti-Xa Level ABG pH POC ABG pCO2 54.7 H POC ABG pO2 68.6 L ABG pO2 ABG Hemoglobin 11.9 L ABG Oxyhemoglobin 91.7 L ABG Sodium 148.2 H ABG Potassium ABG Chloride 112.0 H ABG Glucose 136 H Carboxyhemoglobin Sodium Potassium Chloride Carbon Dioxide BUN Creatinine Glucose POC Glucose 145 H 164 H Calcium Phosphorus Magnesium AST ALT Total Creatine Kinase CK-MB (CK-2) Troponin T Total Protein Albumin Triglycerides Cholesterol LDL Cholesterol Direct HDL Cholesterol Arterial Blood Glucose 136 H Arterial Blood Ionized Calcium Urine Creatinine Urine Total Protein 04/29/21 04/29/21 05:35 05:55 RBC Hgb Hct RDW Lymph % (Auto) [place] % (Auto) Lymph # (Auto) Seg Neutrophils % Seg Neuts % (Manual) Lymphocytes % (Manual) Monocytes % (Manual) Lymphocytes # (Manual) D-Dimer Heparin Anti-Xa Level ABG pH POC ABG pCO2 POC ABG pO2 ABG pO2 ABG Hemoglobin ABG Oxyhemoglobin ABG Sodium ABG Potassium ABG Chloride ABG Glucose Carboxyhemoglobin Sodium 149 H Potassium Chloride 110.9 H Carbon Dioxide BUN 34 H Creatinine Glucose 136 H POC Glucose 128 H Calcium Phosphorus Magnesium AST ALT Total Creatine Kinase CK-MB (CK-2) Troponin T Total Protein Albumin Triglycerides Cholesterol LDL Cholesterol Direct HDL Cholesterol Arterial Blood Glucose Arterial Blood Ionized Calcium Urine Creatinine Urine Total Protein
[2021-04-29] MEDS: fentaNYL DRIP Premix 2,000 MCG/100 ML BAG IV SCH ×2 (10:45→23:27)
[2021-04-29] MEDS ORDERED: FUROSEMIDE 40 MG/4 ML INJ IV ONE (11:00)
[2021-04-29] MEDS ORDERED: hydrALAZINE 20 MG/1 ML INJ IV PRN (12:23)
--- NOTE | 2021-04-29 12:24 | Progress Note ---
<MATHIEUJoseIAIN CAMPUZANO Babita - Last Filed: 04/29/21 18:06> Assessment and Plan Assessment and plan: Per ER... - The patient is a 66-year-old female present with a chief complaint of altered mental status. Per EMS the patient has a history of previous CVA with left- sided weakness. Family reported that the patient developed increased left-sided weakness 3 days ago. The patient was taken to the emergency department but refused to be seen so family brought the patient back home. The following day the patient "stopped speaking" and family eventually brought the patient into the ED today as there was no improvement. Patient opens her eyes to sternal rub and answers some questions but appears confused. First oxygen saturation in ER was 69%. Pt intubated for airway protection and hypoxia believed to be due to unprotected airway post seizure. Pt was ER hold and arrived to ICU overnight PMH HTN HLD CVA 2 Y AGO with left sided residual weakness NOK daughter (see previous encounter note 07/2019) NO ACUTE EVENTS OVERNIGHT NEURO hx CVA with l sided weakness; new onset sz new onset sz UDS neg on admit neuro following LUE with spasticity and contraction of l hand; noted pt flexing legs; PERRL; no commands CT head on admit- IMPRESSION: Encephalomalacia in the right temporal lobe, frontal lobe; no acute/subacute parenchymal lesions MRI Encephalomalacia in the right cerebral hemisphere - see report on keppra daily SAT limited by hypoxia RAAS goal neg 4 sedated on prop, fentanyl and dex family updated on plan of care case management following CV: hx htn on norvasc at home per EMR asa/statin echo 04/22 see report SR-ST no pressors PRN hydral RESP acute resp failure with PE on CTA; refractory hypoxia intubated in ER; remains ventilated see EMR for titration CT noted - a/c lung disease evident with LPA PE's noted remains hypoxic but with some improvement covid pending US BLE neg chest xray no focal consolidation- diffuse fibrotic disease remains hypoxic on high levels of PEEP and 100% trending ABG, xray of chest and lactate added nebs today continue solumedrol will likely need trach- today vent day 7 see RT notes for vent settings still on significant support GI -diarrhea TF at goal nutrition following PPI bowel reg -LIZBETH/rhabdo sp sz corral strict I/O pt net pos 745 ml over the last 24 hours trend and replace electrolytes as needed trend BUN/CR/CK nephrology following dc D6 lasix 40 mg IV x 1 today FWF for Na AM labs ordered HEME- PE VTE on hep for PE lovenox BID trending coags/Xa trend CBC no bleeding on exam LE dopplers neg for DVT ID- nap covid neg follow cultures 04/21 sputum culture afebrile no antibiotics at this time are indicated continue to trend temp and WBC curve ENDO stress hyperglycemia blood glucose monitoring avoid hypoglycemia The high probability of a clinically significant, sudden or life threatening d eterioration of the [respiratory] system(s) required my full and direct attention, intervention and personal management. The aggregate critical care time was [60] minutes. This time is in addition to time spent performing reported procedures but includes the following: [x] Data Review and interpretation [x] Patient assessment and monitoring of vital signs [x] Documentation [x] Medication orders and management Disposition Plan: tbd Total Time Spent with Patient (Minutes): 60 History Interval history: no acute overnight events Hospitalist Physical - Constitutional Vitals: Temp Pulse Resp BP Pulse Ox 98.1 F 84 24 117/76 92 04/29/21 12:00 04/29/21 12:01 04/29/21 11:15 04/29/21 12:01 04/29/21 12:01 General appearance: Present: no acute distress, well-nourished, other (Sedated on vent) - EENT Eyes: Present: PERRL ENT: clear oral mucosa - Neck Neck: Present: supple - Cardiovascular Rhythm: regular Heart Sounds: Present: S1 & S2 - Extremities Extremities: no ischemia Peripheral Pulses: within normal limits - Abdominal General gastrointestinal: soft - Integumentary Integumentary: Present: clear, warm, dry - Psychiatric Psychiatric: other - Neurologic Neurologic: other HEART Score - HEART Score Age: 45-65 Risk factors: 1-2 risk factors Troponin: Troponin T 0.055 ng/mL (0.00-0.029) H 04/21/21 16:32 - Critical Actions Critical Actions: 0-3 pts:0.9-1.7%risk of adverse cardiac event.Candidate for discharge Results - Labs CBC & Chem 7: 04/28/21 04:45 04/29/21 05:35 Labs: Laboratory Last Values WBC 6.1 K/mm3 (4.5-11.0) 04/28/21 04:45 RBC 3.74 M/mm3 (3.65-5.03) 04/28/21 04:45 Hgb 11.6 gm/dl (10.1-14.3) 04/28/21 04:45 Hct 35.2 % (30.3-42.9) 04/28/21 04:45 MCV 94 fl (79-97) 04/28/21 04:45 MCH 31 pg (28-32) 04/28/21 04:45 MCHC 33 % (30-34) 04/28/21 04:45 RDW 16.1 % (13.2-15.2) H 04/28/21 04:45 Plt Count 245 K/mm3 (140-440) 04/28/21 04:45 Lymph % (Auto) 12.0 % (13.4-35.0) L 04/22/21 05:29 [place] % (Auto) 8.0 % (0.0-7.3) H 04/22/21 05:29 Eos % (Auto) 3.0 % (0.0-4.3) 04/22/21 05:29 Baso % (Auto) 0.7 % (0.0-1.8) 04/22/21 05:29 Lymph # (Auto) 1.1 K/mm3 (1.2-5.4) L 04/22/21 05:29 [place] # (Auto) 0.7 K/mm3 (0.0-0.8) 04/22/21 05:29 Eos # (Auto) 0.3 K/mm3 (0.0-0.4) 04/22/21 05:29 Baso # (Auto) 0.1 K/mm3 (0.0-0.1) 04/22/21 05:29 Add Manual Diff Complete 04/21/21 16:32 Total Counted 100 04/21/21 16:32 Seg Neutrophils % 76.3 % (40.0-70.0) H 04/22/21 05:29 Seg Neuts % (Manual) 79.0 % (40.0-70.0) H 04/21/21 16:32 Lymphocytes % (Manual) 13.0 % (13.4-35.0) L 04/21/21 16:32 Monocytes % (Manual) 8.0 % (0.0-7.3) H 04/21/21 16:32 Nucleated RBC % Not Reportable 04/21/21 16:32 Seg Neutrophils # 6.7 K/mm3 (1.8-7.7) 04/22/21 05:29 Seg Neutrophils # Man 6.6 K/mm3 (1.8-7.7) 04/21/21 16:32 Band Neutrophils # 0.0 K/mm3 04/21/21 16:32 Lymphocytes # (Manual) 1.1 K/mm3 (1.2-5.4) L 04/21/21 16:32 Abs React Lymphs (Man) 0.0 K/mm3 04/21/21 16:32 Monocytes # (Manual) 0.7 K/mm3 (0.0-0.8) 04/21/21 16:32 Eosinophils # (Manual) 0.0 K/mm3 (0.0-0.4) 04/21/21 16:32 Basophils # (Manual) 0.0 K/mm3 (0.0-0.1) 04/21/21 16:32 Metamyelocytes # 0.0 K/mm3 04/21/21 16:32 Myelocytes # 0.0 K/mm3 04/21/21 16:32 Promyelocytes # 0.0 K/mm3 04/21/21 16:32 Blast Cells # 0.0 K/mm3 04/21/21 16:32 WBC Morphology Not Reportable 04/21/21 16:32 Hypersegmented Neuts Not Reportable 04/21/21 16:32 Hyposegmented Neuts Not Reportable 04/21/21 16:32 Hypogranular Neuts Not Reportable 04/21/21 16:32 Smudge Cells Not Reportable 04/21/21 16:32 Toxic Granulation Not Reportable 04/21/21 16:32 Toxic Vacuolation Not Reportable 04/21/21 16:32 Dohle Bodies Not Reportable 04/21/21 16:32 Pelger-Huet Anomaly Not Reportable 04/21/21 16:32 Brenda Rods Not Reportable 04/21/21 16:32 Platelet Estimate Consistent w auto 04/21/21 16:32 Clumped Platelets Not Reportable 04/21/21 16:32 Plt Clumps, EDTA Not Reportable 04/21/21 16:32 Large Platelets Not Reportable 04/21/21 16:32 Giant Platelets Not Reportable 04/21/21 16:32 Platelet Satelliting Not Reportable 04/21/21 16:32 Plt Morphology Comment Not Reportable 04/21/21 16:32 RBC Morphology Not Reportable 04/21/21 16:32 Dimorphic RBCs Not Reportable 04/21/21 16:32 Polychromasia Not Reportable 04/21/21 16:32 Hypochromasia Not Reportable 04/21/21 16:32 Poikilocytosis Not Reportable 04/21/21 16:32 Anisocytosis 1+ 04/21/21 16:32 Microcytosis Not Reportable 04/21/21 16:32 Macrocytosis Not Reportable 04/21/21 16:32 Spherocytes Not Reportable 04/21/21 16:32 Pappenheimer Bodies Not Reportable 04/21/21 16:32 Sickle Cells Not Reportable 04/21/21 16:32 Target Cells Not Reportable 04/21/21 16:32 Tear Drop Cells Not Reportable 04/21/21 16:32 Ovalocytes Not Reportable 04/21/21 16:32 Helmet Cells Not Reportable 04/21/21 16:32 [place] Bodies Not Reportable 04/21/21 16:32 [place] Rings Not Reportable 04/21/21 16:32 [place] Cells Not Reportable 04/21/21 16:32 Bite Cells Not Reportable 04/21/21 16:32 Crenated Cell Not Reportable 04/21/21 16:32 Elliptocytes Not Reportable 04/21/21 16:32 Acanthocytes (Spur) Not Reportable 04/21/21 16:32 Rouleaux Not Reportable 04/21/21 16:32 Hemoglobin C Crystals Not Reportable 04/21/21 16:32 Schistocytes Not Reportable 04/21/21 16:32 Malaria parasites Not Reportable 04/21/21 16:32 Uli Bodies Not Reportable 04/21/21 16:32 Hem Pathologist Commnt No 04/21/21 16:32 PT 13.2 Sec. (12.2-14.9) 04/22/21 00:32 INR 0.95 (0.87-1.13) 04/22/21 00:32 APTT 29.2 Sec. (24.2-36.6) 04/22/21 00:32 D-Dimer 1522.26 ng/mlDDU (0-234) H 04/21/21 16:30 Heparin Anti-Xa Level 0.84 U.I./ml (0.3-0.7) H 04/24/21 10:14 ABG pH 7.392 (7.320-7.450) 04/29/21 03:51 POC ABG pCO2 54.7 mmHg (32.0-48.0) H 04/29/21 03:51 ABG pCO2 46.0 mm Hg 04/22/21 17:30 POC ABG pO2 68.6 mmHg (83-108) L 04/29/21 03:51 ABG pO2 99.6 mm Hg (80.0-90.0) H 04/22/21 17:30 POC ABG HCO3 32.5 04/29/21 03:51 ABG HCO3 24.4 mmol/L (20.0-26.0) 04/22/21 17:30 ABG O2 Saturation 92.6 (0-100) 04/29/21 03:51 ABG O2 Content 19.9 (0.0-44) 04/22/21 17:30 POC ABG Base Excess 6.3 04/29/21 03:51 ABG Base Excess -1.6 mmol/L (-2.0-3.0) 04/22/21 17:30 ABG Hemoglobin 11.9 (12.0-17.5) L 04/29/21 03:51 ABG Oxyhemoglobin 91.7 (94-98) L 04/29/21 03:51 ABG Carboxyhemoglobin 0.9 % (0.0-5.0) 04/22/21 17:30 ABG Methemoglobin 0.3 (0.0-1.5) 04/29/21 03:51 ABG Sodium 148.2 mmol/L (136.0-145.0) H 04/29/21 03:51 ABG Potassium 3.9 mmol/L (3.40-4.50) 04/29/21 03:51 ABG Chloride 112.0 mmol/L (98-107) H 04/29/21 03:51 ABG Glucose 136 mg/dL (65-95) H 04/29/21 03:51 Oxyhemoglobin 95.9 % (95.0-99.0) 04/22/21 17:30 Carboxyhemoglobin 0.7 (0.5-1.5) 04/29/21 03:51 FiO2 100 % 04/22/21 17:30 FiO2 % 100.0 04/29/21 03:51 Sodium 149 mmol/L (137-145) H 04/29/21 05:35 Potassium 3.6 mmol/L (3.6-5.0) 04/29/21 05:35 Chloride 110.9 mmol/L (98-107) H 04/29/21 05:35 Carbon Dioxide 30 mmol/L (22-30) 04/29/21 05:35 Anion Gap 12 mmol/L 04/29/21 05:35 BUN 34 mg/dL (7-17) H 04/29/21 05:35 Creatinine 0.9 mg/dL (0.6-1.2) 04/29/21 05:35 Estimated GFR > 60 ml/min 04/29/21 05:35 BUN/Creatinine Ratio 38 % 04/29/21 05:35 Glucose 136 mg/dL (65-100) H 04/29/21 05:35 POC Glucose 206 mg/dL (70-105) H 04/29/21 11:29 Calcium 8.7 mg/dL (8.4-10.2) 04/29/21 05:35 Phosphorus 2.90 mg/dL (2.5-4.5) D 04/25/21 07:42 Magnesium 2.40 mg/dL (1.7-2.3) H 04/24/21 10:00 Total Bilirubin 0.20 mg/dL (0.1-1.2) 04/28/21 04:00 AST 27 units/L (5-40) 04/28/21 04:00 ALT 31 units/L (7-56) 04/28/21 04:00 Alkaline Phosphatase 121 units/L (35-129) 04/28/21 04:00 Ammonia 58.0 umol/L (25-60) 04/28/21 04:45 Total Creatine Kinase 396 units/L (30-135) H 04/24/21 10:00 CK-MB (CK-2) 22.4 ng/mL (0.0-4.0) H 04/21/21 16:32 CK-MB (CK-2) Rel Index 0.7 (0-4) 04/21/21 16:32 Troponin T 0.055 ng/mL (0.00-0.029) H 04/21/21 16:32 Total Protein 6.0 g/dL (6.3-8.2) L 04/28/21 04:00 Albumin 2.4 g/dL (3.9-5) L 04/28/21 04:00 Albumin/Globulin Ratio 0.7 % 04/28/21 04:00 Triglycerides 235 mg/dL (2-149) H 04/21/21 16:32 Cholesterol 220 mg/dL (50-199) H 04/21/21 16:32 LDL Cholesterol Direct 142 mg/dL (50-130) H 04/21/21 16:32 HDL Cholesterol 36 mg/dL (40-59) L 04/21/21 16:32 Cholesterol/HDL Ratio 6.11 % 04/21/21 16:32 TSH 0.876 mlU/mL (0.270-4.200) 04/21/21 16:32 Free T4 1.05 ng/dL (0.76-1.46) 04/21/21 16:32 Arterial Blood Glucose 136 mg/dL (65-95) H 04/29/21 03:51 Arterial Blood Ionized Calcium 4.9 mg/dL (4.6-5.3) 04/29/21 03:51 Urine Color Yellow (Yellow) 04/21/21 Unknown Urine Turbidity Clear (Clear) 04/21/21 Unknown Urine pH 5.0 (5.0-7.0) 04/21/21 Unknown Ur Specific [place] 1.014 (1.003-1.030) 04/21/21 Unknown Urine Protein 100 mg/dl mg/dL (Negative) 04/21/21 Unknown Urine Glucose (UA) Neg mg/dL (Negative) 04/21/21 Unknown Urine Ketones Tr mg/dL (Negative) 04/21/21 Unknown Urine Blood Lg (Negative) 04/21/21 Unknown Urine Nitrite Neg (Negative) 04/21/21 Unknown Urine Bilirubin Neg (Negative) 04/21/21 Unknown Urine Urobilinogen 2.0 mg/dL (<2.0) 04/21/21 Unknown Ur Leukocyte Esterase Neg (Negative) 04/21/21 Unknown Urine WBC (Auto) 5.0 /HPF (0.0-6.0) 04/21/21 Unknown Urine RBC (Auto) 1.0 /HPF (0.0-6.0) 04/21/21 Unknown U Epithel Cells (Auto) 1.0 /HPF (0-13.0) 04/21/21 Unknown Urine Mucus Few /HPF 04/21/21 Unknown Urine Creatinine 138.9 mg/dL (0.1-20.0) H 04/22/21 13:03 Urine Total Protein 86 mg/dL (5-11.8) H 04/22/21 13:03 Urine Opiates Screen Negative 04/21/21 Unknown Urine Methadone Screen Negative 04/21/21 Unknown Ur Barbiturates Screen Negative 04/21/21 Unknown Ur Phencyclidine Scrn Negative 04/21/21 Unknown Ur Amphetamines Screen Negative 04/21/21 Unknown U Benzodiazepines Scrn Negative 04/21/21 Unknown Urine Cocaine Screen Negative 04/21/21 Unknown U Marijuana (THC) Screen Negative 04/21/21 Unknown Drugs of Abuse Note Disclamer 04/21/21 Unknown Plasma/Serum Alcohol < 0.01 % (0-0.07) 04/21/21 16:32 Coronavirus (PCR) Negative (Negative) 04/23/21 Unknown [place]/IV: Voiding Method External Female Catheter Active Medications - Current Medications Current Medications: Generic Name Dose Route Start Last Admin Trade Name Freq PRN Reason Stop Dose Admin Acetaminophen 650 mg 04/21/21 21:11 04/28/21 16:30 Acetaminophen 325 Mg Tab PO 650 mg Q4H PRN Administration Pain MILD(1-3)/Fever >100.5/DICKINSON Lipase/Protease/Amylase 1 each 04/22/21 10:51 Lipase 10,500/Protease 25,000/Amylase 43,750 (Units) Dr Ryan FEEDTUBE PRN PRN For Clogged Feeding Tube Arformoterol Tartrate 15 mcg 04/29/21 20:00 Arformoterol 15 Mcg/2 Ml Nebu IH Q12HRT MINOR Budesonide 0.5 mg 04/29/21 20:00 Budesonide 0.5 Mg/2 Ml Nebu IH Q12HRT MINOR Enoxaparin Sodium 80 mg 04/29/21 14:00 Enoxaparin 80 Mg/0.8 Ml Inj SUB-Q Q12H MINOR Famotidine 20 mg 04/24/21 10:00 04/29/21 09:51 Famotidine 20 Mg Tab PO 20 mg BID MINOR Administration Hydralazine HCl 10 mg 04/29/21 12:23 Hydralazine 20 Mg/1 Ml Inj IV Q4H PRN Hypertension Hydrophilic Ointment 1 applic 04/21/21 15:46 Lip Therapy Vaseline TP Q2HR PRN Dry Lips Fentanyl Citrate 2,000 mcg in 100 mls @ 3.515 mls/hr 04/21/21 16:00 04/29/21 10:45 Fentanyl Drip Premix IV 2 mcg/kg/hr TITR MINOR 7.031 mls/hr Administration Protocol 1 MCG/KG/HR Dexmedetomidine HCl 400 mcg/ 104 mls @ 4.144 mls/hr 04/25/21 06:00 04/29/21 11:15 Sodium Chloride IV 1.3 mcg/kg/hr TITRATE MINOR 26.939 mls/hr Titration Protocol 0.2 MCG/KG/HR Propofol 1,000 mg in 100 mls @ 2.19 mls/hr 04/26/21 11:00 04/29/21 11:15 Diprivan 10 Mg/Ml IV 25 mcg/kg/min TITR MINOR 10.95 mls/hr Titration Protocol 5 MCG/KG/MIN Levetiracetam 750 mg 04/25/21 10:00 04/29/21 09:52 Levetiracetam 500 Mg/5 Ml Oral Liqd PO 750 mg BID MINOR Administration Lorazepam 2 mg 04/26/21 10:55 04/27/21 02:52 Lorazepam 2 Mg/Ml Vial IV 2 mg Q4H PRN Administration Agitation Methylprednisolone Sodium Succinate 60 mg 04/28/21 06:00 04/29/21 11:22 Methylprednisolone Sod Succinate 40 Mg/1 Ml Inj IV 60 mg Q6H MINOR Administration Metoclopramide HCl 10 mg 04/28/21 09:52 Metoclopramide 10 Mg/2 Ml Inj IV Q6H PRN Nausea And Vomiting Multi-Ingred Cream/Lotion/Oil/Oint 1 applic 04/21/21 15:46 Mineral Oil/Petrolatum, White Ophth Oint 3.5 Gm OU Q4HR PRN Dry Eye(s) Ondansetron HCl 4 mg 04/26/21 06:15 Ondansetron 4 Mg/2 Ml Inj IV Q6HR PRN Nausea And Vomiting Potassium Chloride 40 meq 04/29/21 13:00 Potassium Chloride 20 Meq Packet FEEDTUBE 04/30/21 12:59 Q8H MINOR Senna/Docusate Sodium 1 tab 04/26/21 22:00 04/28/21 21:43 Sennosides/Docusate Sodium 8.6/50 Mg Tab FEEDTUBE 1 tab QHS MINOR Administration Simple Syrup 15 ml 04/22/21 10:51 Simple Syrup 15 Ml FEEDTUBE PRN PRN Hypoglycemia Simple Syrup 30 ml 04/22/21 10:51 Simple Syrup 15 Ml FEEDTUBE PRN PRN Hypoglycemia Sodium Bicarbonate 325 mg 04/22/21 10:51 Sodium Bicarbonate 325 Mg Tab FEEDTUBE PRN PRN For Clogged Feeding Tube Sodium Chloride 10 ml 04/21/21 22:00 04/29/21 09:52 Sodium Chloride 0.9% 10 Ml Flush Syringe IV 10 ml BID MINOR Administration Sodium Chloride 10 ml 04/21/21 21:11 04/27/21 02:54 Sodium Chloride 0.9% 10 Ml Flush Syringe IV 10 ml PRN PRN Administration LINE FLUSH Nutrition/Malnutrition Assess - Dietary Evaluation Nutrition/Malnutrition Findings: Nutrition Notes Start: 04/22/21 10:45 Freq: Status: Active Protocol: Document 04/24/21 14:58 MAYRA (Rec: 04/24/21 15:04 MAYRA [id number]) Nutrition Notes Initial or Follow up Reassessment Current Diagnosis Acute Kidney Injury, Hypertension,Stroke, Hyperlipidemia Other Pertinent Diagnosis New onset seizures, AMS, pulmonary embolism Current Diet TF - Nepro 35ml/hr Labs/Tests reviewed Pertinent Medications reviewed Height 5 ft 9 in Weight 79.7 kg [place] Body Weight (kg) 65.90 BMI 25.9 Weight change and time frame wt change noted Weight Status Appropriate Subjective/Other Information Per RN, pt tolerating TF at goal rate. Pt remains on vent support. Percent of energy/protein needs met: 89% energy 71% pro Burn Absent Trauma Absent #1 Nutrition Diagnosis Inadequate oral intake Diagnosis Progress(for reassessment Continues documentation) Is patient on ventilator? Yes Is Patient Ambulatory and/or Out of Bed No REE-([facility] Lexy-confined to bed) [phone] Calculation Used for Recommendations [facility] Additional Notes Pro needs 1.2-2g/k-159g/ day Fluid needs 1ml/kcal Nutrition Intervention Nutrition Support: Continue Nepro at 35ml/hr with 150ml water flush q4h. Kcal 1,512 Protein (gm) 68 Carbohydrates (gm) 135 Fat (gm) 81 Fluid (mL) 611 Fiber (gm) 11 Goal #1 TF tolerance Goal #2 TF to meet at least 75% energy and pro needs Follow-Up By: 05/01/21 Additional Comments F/U: stable TF, vent status, wt - Attestation Statement I have reviewed and agreed w/ Malnutrition eval & tx plan: Yes <TAMIKA HERRERA - Last Filed: 05/05/21 05:18> Assessment and Plan Assessment and plan: I saw and evaluated the patient. I agree with the findings and the plan of care as documented in the Nurse Practitioner's~note, with the following corrections and additions. Hospitalist Physical - Constitutional Vitals: Temp Pulse Resp BP Pulse Ox 97.8 F 123 H 28 H 140/65 97 05/05/21 03:00 05/05/21 04:00 05/05/21 01:16 05/05/21 04:00 05/05/21 04:00 HEART Score - HEART Score Troponin: Troponin T 0.055 ng/mL (0.00-0.029) H 04/21/21 16:32 Results - Labs CBC & Chem 7: 05/04/21 07:11 05/04/21 22:00 Labs: Laboratory Last Values WBC 10.1 K/mm3 (4.5-11.0) 05/04/21 07:11 RBC 3.12 M/mm3 (3.65-5.03) L 05/04/21 07:11 Hgb 9.5 gm/dl (10.1-14.3) L 05/04/21 07:11 Hct 29.8 % (30.3-42.9) L D 05/04/21 07:11 MCV 96 fl (79-97) 05/04/21 07:11 MCH 30 pg (28-32) 05/04/21 07:11 MCHC 32 % (30-34) 05/04/21 07:11 RDW 16.6 % (13.2-15.2) H 05/04/21 07:11 Plt Count 184 K/mm3 (140-440) 05/04/21 07:11 Lymph % (Auto) 12.0 % (13.4-35.0) L 04/22/21 05:29 [place] % (Auto) 2.8 % (0.0-7.3) 04/30/21 07:40 Eos % (Auto) 0.9 % (0.0-4.3) 04/30/21 07:40 Baso % (Auto) 0.7 % (0.0-1.8) 04/22/21 05:29 Lymph # (Auto) 1.1 K/mm3 (1.2-5.4) L 04/22/21 05:29 [place] # (Auto) 0.2 K/mm3 (0.0-0.8) 04/30/21 07:40 Eos # (Auto) 0.1 K/mm3 (0.0-0.4) 04/30/21 07:40 Baso # (Auto) 0.0 K/mm3 (0.0-0.1) 04/30/21 07:40 Add Manual Diff Complete 05/03/21 03:45 Total Counted 100 05/03/21 03:45 Seg Neutrophils % 88.4 % (40.0-70.0) H 04/30/21 07:40 Seg Neuts % (Manual) 63.0 % (40.0-70.0) 05/03/21 03:45 Band Neutrophils % 22.0 % 05/03/21 03:45 Lymphocytes % (Manual) 9.0 % (13.4-35.0) L 05/03/21 03:45 Reactive Lymphs % (Man) 2.0 % 05/03/21 03:45 Monocytes % (Manual) 2.0 % (0.0-7.3) 05/03/21 03:45 Eosinophils % (Manual) 1.0 % (0.0-4.3) 04/30/21 07:40 Metamyelocytes % 3.0 % 05/02/21 06:57 Myelocytes % 2.0 % 05/03/21 03:45 Nucleated RBC % 6.0 % (0.0-0.9) H 05/03/21 03:45 Seg Neutrophils # 7.5 K/mm3 (1.8-7.7) 04/30/21 07:40 Seg Neutrophils # Man 5.4 K/mm3 (1.8-7.7) 05/03/21 03:45 Band Neutrophils # 1.9 K/mm3 05/03/21 03:45 Lymphocytes # (Manual) 0.8 K/mm3 (1.2-5.4) L 05/03/21 03:45 Abs React Lymphs (Man) 0.2 K/mm3 05/03/21 03:45 Monocytes # (Manual) 0.2 K/mm3 (0.0-0.8) 05/03/21 03:45 Eosinophils # (Manual) 0.0 K/mm3 (0.0-0.4) 05/03/21 03:45 Basophils # (Manual) 0.0 K/mm3 (0.0-0.1) 05/03/21 03:45 Metamyelocytes # 0.0 K/mm3 05/03/21 03:45 Myelocytes # 0.2 K/mm3 05/03/21 03:45 Promyelocytes # 0.0 K/mm3 05/03/21 03:45 Blast Cells # 0.0 K/mm3 05/03/21 03:45 WBC Morphology Not Reportable 05/03/21 03:45 Hypersegmented Neuts Not Reportable 05/03/21 03:45 Hyposegmented Neuts Not Reportable 05/03/21 03:45 Hypogranular Neuts Not Reportable 05/03/21 03:45 Smudge Cells Not Reportable 05/03/21 03:45 Toxic Granulation Not Reportable 05/03/21 03:45 Toxic Vacuolation Not Reportable 05/03/21 03:45 Dohle Bodies Not Reportable 05/03/21 03:45 Pelger-Huet Anomaly Not Reportable 05/03/21 03:45 Brenda Rods Not Reportable 05/03/21 03:45 Platelet Estimate Consistent w auto 05/03/21 03:45 Clumped Platelets Not Reportable 05/03/21 03:45 Plt Clumps, EDTA Not Reportable 05/03/21 03:45 Large Platelets Not Reportable 05/03/21 03:45 Giant Platelets Few 05/03/21 03:45 Platelet Satelliting Not Reportable 05/03/21 03:45 Plt Morphology Comment Not Reportable 05/03/21 03:45 RBC Morphology Not Reportable 05/03/21 03:45 Dimorphic RBCs Not Reportable 05/03/21 03:45 Polychromasia Not Reportable 05/03/21 03:45 Hypochromasia Not Reportable 05/03/21 03:45 Poikilocytosis Not Reportable 05/03/21 03:45 Anisocytosis Not Reportable 05/03/21 03:45 Microcytosis Not Reportable 05/03/21 03:45 Macrocytosis Not Reportable 05/03/21 03:45 Spherocytes Not Reportable 05/03/21 03:45 Pappenheimer Bodies Not Reportable 05/03/21 03:45 Sickle Cells Not Reportable 05/03/21 03:45 Target Cells Not Reportable 05/03/21 03:45 Tear Drop Cells Not Reportable 05/03/21 03:45 Ovalocytes Not Reportable 05/03/21 03:45 Helmet Cells Not Reportable 05/03/21 03:45 [place] Bodies Not Reportable 05/03/21 03:45 [place] Rings Not Reportable 05/03/21 03:45 [place] Cells Not Reportable 05/03/21 03:45 Bite Cells Not Reportable 05/03/21 03:45 Crenated Cell Not Reportable 05/03/21 03:45 Elliptocytes Not Reportable 05/03/21 03:45 Acanthocytes (Spur) Not Reportable 05/03/21 03:45 Rouleaux Not Reportable 05/03/21 03:45 Hemoglobin C Crystals Not Reportable 05/03/21 03:45 Schistocytes Not Reportable 05/03/21 03:45 Malaria parasites Not Reportable 05/03/21 03:45 [place] Bodies Not Reportable 05/03/21 03:45 Hem Pathologist Commnt No 05/03/21 03:45 PT 13.2 Sec. (12.2-14.9) 04/22/21 00:32 INR 0.95 (0.87-1.13) 04/22/21 00:32 APTT 29.2 Sec. (24.2-36.6) 04/22/21 00:32 D-Dimer 1522.26 ng/mlDDU (0-234) H 04/21/21 16:30 Heparin Anti-Xa Level 0.84 U.I./ml (0.3-0.7) H 04/24/21 10:14 ABG pH 7.385 (7.320-7.450) 05/04/21 22:00 POC ABG pCO2 87.2 mmHg (32.0-48.0) H 05/04/21 22:00 ABG pCO2 46.0 mm Hg 04/22/21 17:30 POC ABG pO2 60.7 mmHg (83-108) L 05/04/21 22:00 ABG pO2 99.6 mm Hg (80.0-90.0) H 04/22/21 17:30 POC ABG HCO3 51.0 05/04/21 22:00 ABG HCO3 24.4 mmol/L (20.0-26.0) 04/22/21 17:30 ABG O2 Saturation 89.1 (0-100) 05/04/21 22:00 ABG O2 Content 19.9 (0.0-44) 04/22/21 17:30 POC ABG Base Excess 22.7 05/04/21 22:00 ABG Base Excess -1.6 mmol/L (-2.0-3.0) 04/22/21 17:30 ABG Hemoglobin 8.9 (12.0-17.5) L 05/04/21 22:00 ABG Oxyhemoglobin 87.8 (94-98) L 05/04/21 22:00 ABG Carboxyhemoglobin 0.9 % (0.0-5.0) 04/22/21 17:30 ABG Methemoglobin 0.3 (0.0-1.5) 05/04/21 22:00 ABG Sodium 155.8 mmol/L (136.0-145.0) H 05/04/21 22:00 ABG Potassium 4.6 mmol/L (3.40-4.50) H 05/04/21 22:00 ABG Chloride 107.0 mmol/L (98-107) 05/04/21 22:00 ABG Glucose 194 mg/dL (65-95) H 05/04/21 22:00 Oxyhemoglobin 95.9 % (95.0-99.0) 04/22/21 17:30 Carboxyhemoglobin 1.2 (0.5-1.5) 05/04/21 22:00 FiO2 100 % 04/22/21 17:30 FiO2 % 100.0 05/04/21 22:00 Sodium 159 mmol/L (137-145) H 05/04/21 22:00 Potassium 4.7 mmol/L (3.6-5.0) 05/04/21 22:00 Chloride 110.3 mmol/L (98-107) H 05/04/21 22:00 Carbon Dioxide 44 mmol/L (22-30) H* 05/04/21 22:00 Anion Gap 9 mmol/L 05/04/21 22:00 BUN 70 mg/dL (7-17) H 05/04/21 22:00 Creatinine 1.4 mg/dL (0.6-1.2) H 05/04/21 22:00 Estimated GFR 46 ml/min 05/04/21 22:00 BUN/Creatinine Ratio 50 % 05/04/21 22:00 Glucose 200 mg/dL (65-100) H 05/04/21 22:00 POC Glucose 157 mg/dL (70-105) H 05/05/21 05:11 Osmolality 375 Mosm/kg 05/04/21 13:27 Lactic Acid 3.00 mmol/L (0.7-2.0) H* 05/04/21 13:27 Calcium 9.2 mg/dL (8.4-10.2) 05/04/21 22:00 Phosphorus 3.80 mg/dL (2.5-4.5) 05/04/21 13:27 Magnesium 3.00 mg/dL (1.7-2.3) H 05/04/21 13:27 Total Bilirubin 0.40 mg/dL (0.1-1.2) 05/04/21 07:11 AST 44 units/L (5-40) H 05/04/21 07:11 ALT 32 units/L (7-56) 05/04/21 07:11 Alkaline Phosphatase 87 units/L (35-129) 05/04/21 07:11 Ammonia 58.0 umol/L (25-60) 04/28/21 04:45 Total Creatine Kinase 32 units/L (30-135) 05/03/21 03:45 CK-MB (CK-2) 22.4 ng/mL (0.0-4.0) H 04/21/21 16:32 CK-MB (CK-2) Rel Index 0.7 (0-4) 04/21/21 16:32 Troponin T 0.055 ng/mL (0.00-0.029) H 04/21/21 16:32 Total Protein 5.7 g/dL (6.3-8.2) L 05/04/21 07:11 Albumin 2.2 g/dL (3.9-5) L 05/04/21 07:11 Albumin/Globulin Ratio 0.6 % 05/04/21 07:11 Triglycerides 304 mg/dL (2-149) H 04/30/21 17:00 Cholesterol 220 mg/dL (50-199) H 04/21/21 16:32 LDL Cholesterol Direct 142 mg/dL (50-130) H 04/21/21 16:32 HDL Cholesterol 36 mg/dL (40-59) L 04/21/21 16:32 Cholesterol/HDL Ratio 6.11 % 04/21/21 16:32 TSH 0.051 mlU/mL (0.270-4.200) L 05/03/21 06:05 Free T4 1.05 ng/dL (0.76-1.46) 04/21/21 16:32 Arterial Blood Glucose 194 mg/dL (65-95) H 05/04/21 22:00 Arterial Blood Ionized Calcium 4.8 mg/dL (4.6-5.3) 05/04/21 22:00 Urine Color Salma (Yellow) 05/03/21 16:10 Urine Turbidity Turbid (Clear) 05/03/21 16:10 Urine pH 5.0 (5.0-7.0) 05/03/21 16:10 Ur Specific [place]win 1.016 (1.003-1.030) 05/03/21 16:10 Urine Protein 30 mg/dl mg/dL (Negative) 05/03/21 16:10 Urine Glucose (UA) Neg mg/dL (Negative) 05/03/21 16:10 Urine Ketones Neg mg/dL (Negative) 05/03/21 16:10 Urine Blood Sm (Negative) 05/03/21 16:10 Urine Nitrite Neg (Negative) 05/03/21 16:10 Urine Bilirubin Neg (Negative) 05/03/21 16:10 Urine Urobilinogen 2.0 mg/dL (<2.0) 05/03/21 16:10 Ur Leukocyte Esterase Sm (Negative) 05/03/21 16:10 Urine WBC (Auto) 43.0 /HPF (0.0-6.0) H 05/03/21 16:10 Urine RBC (Auto) 20.0 /HPF (0.0-6.0) 05/03/21 16:10 U Epithel Cells (Auto) 11.0 /HPF (0-13.0) 05/03/21 16:10 Urine Bacteria (Auto) 2+ /HPF (Negative) 05/03/21 16:10 Urine WBC Clumps 3+ /HPF 05/03/21 16:10 Urine Mucus 2+ /HPF 05/03/21 16:10 Urine Yeast (Budding) 3+ /HPF 05/03/21 16:10 Urine Osmolality 435 Mosm/kg 05/03/21 16:10 Urine Creatinine 65.6 mg/dL (0.1-20.0) H 05/03/21 16:10 Urine Sodium 38 mmol/L 05/03/21 16:10 Urine Urea Nitrogen 597 05/03/21 16:10 Urine Total Protein 86 mg/dL (5-11.8) H 04/22/21 13:03 Urine Opiates Screen Negative 04/21/21 Unknown Urine Methadone Screen Negative 04/21/21 Unknown Ur Barbiturates Screen Negative 04/21/21 Unknown Ur Phencyclidine Scrn Negative 04/21/21 Unknown Ur Amphetamines Screen Negative 04/21/21 Unknown U Benzodiazepines Scrn Negative 04/21/21 Unknown Urine Cocaine Screen Negative 04/21/21 Unknown U Marijuana (THC) Screen Negative 04/21/21 Unknown Drugs of Abuse Note Disclamer 04/21/21 Unknown Plasma/Serum Alcohol < 0.01 % (0-0.07) 04/21/21 16:32 Coronavirus (PCR) Negative (Negative) 04/23/21 Unknown Microbiology: Microbiology 05/03/21 16:55 Tracheal Aspirate Sputum Culture - Preliminary 05/03/21 15:27 Peripheral/Venous Blood Culture - Preliminary 05/03/21 15:27 Peripheral/Venous Blood Culture - Preliminary 05/03/21 16:10 Urine,Clean Catch Urine Culture - Preliminary Gram Negative Markus Corral/IV: Voiding Method Indwelling Catheter Active Medications - Current Medications Current Medications: Generic Name Dose Route Start Last Admin Trade Name Freq PRN Reason Stop Dose Admin Acetaminophen 650 mg 04/21/21 21:11 04/28/21 16:30 Acetaminophen 325 Mg Tab PO 650 mg Q4H PRN Administration Pain MILD(1-3)/Fever >100.5/DICKINSON Acetaminophen 650 mg 05/03/21 23:39 Acetaminophen 650 Mg Rect Supp [place] Q6H PRN Feverr>100.5 Lipase/Protease/Amylase 1 each 04/22/21 10:51 Lipase 10,500/Protease 25,000/Amylase 43,750 (Units) Dr Ryan FEEDTUBE PRN PRN For Clogged Feeding Tube Arformoterol Tartrate 15 mcg 04/29/21 20:00 05/04/21 20:11 Arformoterol 15 Mcg/2 Ml Nebu IH 15 mcg Q12HRT MINOR Administration Aspirin 325 mg 05/01/21 13:00 05/04/21 09:07 Aspirin 325 Mg Tab PO 325 mg QDAY MINOR Administration Atorvastatin Calcium 40 mg 05/01/21 22:00 05/04/21 21:19 Atorvastatin 40 Mg Tab PO 40 mg QHS MINOR Administration Budesonide 0.5 mg 04/29/21 20:00 05/04/21 20:11 Budesonide 0.5 Mg/2 Ml Nebu IH 0.5 mg Q12HRT MINOR Administration Dextrose 50 ml 05/04/21 19:00 Dextrose 50% In Water (25gm) 50 Ml Syringe IV Q30MIN PRN Hypoglycemia Protocol Enoxaparin Sodium 80 mg 04/29/21 14:00 05/05/21 02:28 Enoxaparin 80 Mg/0.8 Ml Inj SUB-Q 80 mg Q12H MINOR Administration Famotidine 20 mg 05/04/21 10:00 05/04/21 09:07 Famotidine 20 Mg Tab PO 20 mg DAILY MINOR Administration Hydralazine HCl 10 mg 04/29/21 12:23 Hydralazine 20 Mg/1 Ml Inj IV Q4H PRN Hypertension Hydrophilic Ointment 1 applic 04/21/21 15:46 Lip Therapy Vaseline TP Q2HR PRN Dry Lips Propofol 1,000 mg in 100 mls @ 2.19 mls/hr 04/26/21 11:00 05/04/21 17:10 Diprivan 10 Mg/Ml IV 10 mcg/kg/min TITR MINOR 4.38 mls/hr Administration Protocol 5 MCG/KG/MIN Lorazepam 100 mg/ Sodium 100 mls @ 1 mls/hr 04/30/21 11:00 05/04/21 01:11 Chloride/ Miscellaneous IV 2 mg/hr Information TITR MINOR 2 mls/hr Titration Protocol 1 MG/HR Vasopressin 20 unit/ Sodium 101 mls @ 9.09 mls/hr 05/02/21 21:00 05/05/21 04:18 Chloride IV 0 units/min TITR MINOR 0 mls/hr Titration Protocol 0.03 UNITS/MIN Norepinephrine 4 mg in 250 mls @ 7.5 mls/hr 05/03/21 02:00 05/04/21 21:32 Levophed Drip 4 Mg/Ns 250 Ml IV 0 mcg/min TITR MINOR 0 mls/hr Titration Protocol 2 MCG/MIN Cefepime HCl 2 gm in 100 mls @ 200 mls/hr 05/03/21 16:00 05/05/21 04:18 Cefepime/Ns 2 Gm/100 Ml IV Infused Q12H MINOR Infusion Protocol Vancomycin HCl 1 gm in 250 mls @ 167.007 mls/hr 05/04/21 16:00 05/04/21 18:40 Vancomycin/Ns 1 Gm/250 Ml IV Infused Q24H MINOR Infusion Dextrose 1,000 mls @ 75 mls/hr 05/04/21 09:00 05/04/21 22:41 D5w IV 75 mls/hr DIRECT MINOR Administration Insulin Human Lispro 0 unit 05/03/21 00:00 05/05/21 00:27 Insulin Lispro 100 Unit/Ml SUB-Q 3 unit Q6HR MINOR Administration Protocol Levetiracetam 750 mg 04/25/21 10:00 05/04/21 21:19 Levetiracetam 500 Mg/5 Ml Oral Liqd PO 750 mg BID MINOR Administration Methylprednisolone Sodium Succinate 60 mg 04/28/21 06:00 05/05/21 00:28 Methylprednisolone Sod Succinate 40 Mg/1 Ml Inj IV 60 mg Q6H MINOR Administration Multi-Ingred Cream/Lotion/Oil/Oint 1 applic 04/21/21 15:46 Mineral Oil/Petrolatum, White Ophth Oint 3.5 Gm OU Q4HR PRN Dry Eye(s) Ondansetron HCl 4 mg 05/03/21 18:23 05/03/21 18:40 Ondansetron 4 Mg/2 Ml Inj IV 4 mg Q6H PRN Administration Nausea And Vomiting Polyethylene Glycol 17 gm 05/02/21 15:00 Polyethylene Glycol 3350 17 Gm Powder PO QDAY PRN Constipation Quetiapine Fumarate 25 mg 04/30/21 11:00 05/04/21 21:20 Quetiapine 25 Mg Tab PO 25 mg BID MINOR Administration Senna/Docusate Sodium 1 tab 04/26/21 22:00 05/04/21 21:19 Sennosides/Docusate Sodium 8.6/50 Mg Tab FEEDTUBE 1 tab QHS MINOR Administration Simple Syrup 15 ml 04/22/21 10:51 Simple Syrup 15 Ml FEEDTUBE PRN PRN Hypoglycemia Simple Syrup 30 ml 04/22/21 10:51 Simple Syrup 15 Ml FEEDTUBE PRN PRN Hypoglycemia Sodium Bicarbonate 325 mg 04/22/21 10:51 Sodium Bicarbonate 325 Mg Tab FEEDTUBE PRN PRN For Clogged Feeding Tube Sodium Chloride 10 ml 04/21/21 22:00 05/04/21 21:20 Sodium Chloride 0.9% 10 Ml Flush Syringe IV 10 ml BID MINOR Administration Sodium Chloride 10 ml 04/21/21 21:11 04/27/21 02:54 Sodium Chloride 0.9% 10 Ml Flush Syringe IV 10 ml PRN PRN Administration LINE FLUSH Nutrition/Malnutrition Assess - Dietary Evaluation Nutrition/Malnutrition Findings: Nutrition Notes Start: 04/22/21 10:45 Freq: Status: Active Protocol: Document 05/01/21 12:27 (Rec: 05/01/21 12:30 [email or web address]) Nutrition Notes Initial or Follow up Reassessment Current Diagnosis Acute Kidney Injury, Hypertension,Stroke, Hyperlipidemia Other Pertinent Diagnosis New onset seizures, AMS, pulmonary embolism Current Diet TF - Nepro 35ml/hr Labs/Tests K 5.3 BUN 39 Pertinent Medications Solu medrol Height 5 ft 9 in Weight 79 kg [place] Body Weight (kg) 65.90 BMI 25.7 Weight change and time frame wt flucuations Weight Status Appropriate Subjective/Other Information Pt tolerating TF per RN. changed flush to 250 ml q4h. Percent of energy/protein needs met: 89% energy 71% pro Burn Absent Trauma Absent Minimum of two criteria No #1 Nutrition Diagnosis Inadequate oral intake Diagnosis Progress(for reassessment Continues documentation) Is patient on ventilator? Yes Is Patient Ambulatory and/or Out of Bed No REE-([facility]-confined to bed) [phone] Calculation Used for Recommendations [facility] Additional Notes Pro needs 1.2-2g/k-159g/ day Fluid needs 1ml/kcal Nutrition Intervention Nutrition Support: Continue Nepro at 35ml/hr with 150ml water flush q4h. Kcal 1,512 Protein (gm) 68 Carbohydrates (gm) 135 Fat (gm) 81 Fluid (mL) 611 Fiber (gm) 11 Goal #1 TF tolerance Goal #2 TF to meet at least 75% energy and pro needs Follow-Up By: 05/08/21 Additional Comments FU for stable TF
[2021-04-29] MEDS: POTASSIUM CHLORIDE 20 MEQ PACKET FEEDTUBE SCH ×2 (12:25→21:13)
[2021-04-29] MEDS: ARFORMOTEROL 15 MCG/2 ML NEBU IH SCH (20:53)
[2021-04-29] MEDS: BUDESONIDE 0.5 MG/2 ML NEBU IH SCH (20:53)
[2021-04-29] MEDS: SENNOSIDES/DOCUSATE SODIUM 8.6/50 MG TAB FEEDTUBE SCH (21:10)
[2021-04-30] MEDS: methylPREDNISolone Sod Succinate 40 MG/1 ML INJ IV SCH ×4 (00:10→17:57)
[2021-04-30] MEDS: FREE WATER PO SCH ×7 (01:05→23:25)
[2021-04-30] MEDS: ENOXAPARIN 80 MG/0.8 ML INJ SUB-Q SCH ×2 (02:30→13:40)
[2021-04-30] MEDS: POTASSIUM CHLORIDE 20 MEQ PACKET FEEDTUBE SCH (05:15)
[2021-04-30 07:56] LABS: Hematocrit 39.2 % (30.3-42.9); Hemoglobin 12.8 gm/dl (10.1-14.3); Mean Corpuscular HGB Conc 33 % (30-34); Mean Corpuscular Volume 94 fl (79-97); Platelet Count 270 K/mm3 (140-440); Red Blood Count 4.18 M/mm3 (3.65-5.03); Red Cell Distribution Width 16.3 % (13.2-15.2)
[2021-04-30] MEDS: ARFORMOTEROL 15 MCG/2 ML NEBU IH SCH ×2 (08:03→21:13)
[2021-04-30] MEDS: BUDESONIDE 0.5 MG/2 ML NEBU IH SCH ×2 (08:04→21:13)
[2021-04-30 08:17] LABS: Alanine Aminotransferase 27 units/L (7-56); Albumin 2.2 g/dL (3.9-5); Blood Urea Nitrogen 33 mg/dL (7-17); Calcium 9.4 mg/dL (8.4-10.2); Hemolysis Index 11
[2021-04-30 08:20] LABS: Eosinophils # (Auto) 0.1 K/mm3 (0.0-0.4); Eosinophils % (Auto) 0.9 % (0.0-4.3); Monocytes # (Auto) 0.2 K/mm3 (0.0-0.8); Monocytes % (Auto) 2.8 % (0.0-7.3)
[2021-04-30 08:41] LABS: BUN/Creatinine Ratio 47
[2021-04-30] MEDS: FAMOTIDINE 20 MG TAB PO SCH ×2 (09:13→21:01)
[2021-04-30] MEDS: levETIRAcetam 500 MG/5 ML ORAL LIQD PO SCH ×2 (09:13→21:01)
--- NOTE | 2021-04-30 09:47 | Progress Note ---
Assessment and Plan Assessment and plan: Per ER... 04-21 The patient is a 66-year-old female present with a chief complaint of altered mental status. Per EMS the patient has a history of previous CVA with left- sided weakness. Family reported that the patient developed increased left-sided weakness 3 days ago. The patient was taken to the emergency department but refused to be seen so family brought the patient back home. The following day the patient "stopped speaking" and family eventually brought the patient into the ED today as there was no improvement. Patient opens her eyes to sternal rub and answers some questions but appears confused. First oxygen saturation in ER was 69%. Pt intubated for airway protection and hypoxia believed to be due to unprotected airway post seizure. Pt was ER hold and arrived to ICU overnight PMH HTN HLD CVA 2 Y AGO with left sided residual weakness NOK daughter (see previous encounter note 07/2019) NO ACUTE EVENTS OVERNIGHT NEURO hx CVA with l sided weakness; new onset sz new onset sz on keppra UDS neg on admit neuro following LUE with spasticity and contraction of l hand; noted pt flexing legs; PERRL; no commands CT head on admit- IMPRESSION: Encephalomalacia in the right temporal lobe, frontal lobe; no acute/subacute parenchymal lesions MRI Encephalomalacia in the right cerebral hemisphere - see report on keppra daily SAT limited by hypoxia RAAS goal neg 4 sedated on prop, fentanyl and dex adding ativan and seroquel try to dec dex mike [id number] case management following CV: hx htn on norvasc at home per EMR asa/statin echo 04/22 see report SR-ST no pressors PRN hydral EKG to evaluate QT given sedation and addition of seroquel RESP acute resp failure with PE on CTA; refractory hypoxia intubated in ER; remains ventilated -- day 8 ACPRVC [id number] see iview for titration adding ativan today for inc wob CT noted - a/c lung disease evident with LPA PE's noted US BLE neg chest xray no focal consolidation- diffuse fibrotic disease remains hypoxic on high levels of PEEP and 95 trending ABG, xray of chest and lactate continue nebs continue solumedrol will likely need trach- today vent day 8 GI -diarrhea- improved TF at goal nutrition following PPI bowel reg -LIZBETH/rhabdo sp sz- improving; hyperna corral strict I/O pt net pos 2L over 24 hours p lasix 40 mg IV pt is up 8kg from 04/21 trend and replace electrolytes as needed trend BUN/CR/CK nephrology following lasix 40 mg IV x 1 today if MAP tolerates ativan as of 1430 pt hypotensive with MAP 55-65-- no lasix RN continues to wean prop, dex, and fentanyl FWF for Na currently 1.1 L free water deficit inc FWF to 250 ml every 4 hours AM labs ordered HEME- PE VTE on lovenox BID lovenox BID trending coags/Xa trend CBC no bleeding on exam LE dopplers neg for DVT ID- nap covid neg follow cultures 04/21 sputum culture afebrile no antibiotics at this time are indicated continue to trend temp and WBC curve ENDO stress hyperglycemia blood glucose monitoring avoid hypoglycemia The high probability of a clinically significant, sudden or life threatening deterioration of the [respiratory] system(s) required my full and direct attention, intervention and personal management. The aggregate critical care time was [60] minutes. This time is in addition to time spent performing reported procedures but includes the following: [x] Data Review and interpretation [x] Patient assessment and monitoring of vital signs [x] Documentation [x] Medication orders and management Disposition Plan: tbd Total Time Spent with Patient (Minutes): 60 History Interval history: no acute overnight events Hospitalist Physical - Constitutional Vitals: Temp Pulse Resp BP Pulse Ox 97.8 F 100 H 36 H 139/77 91 04/30/21 09:07 04/30/21 08:16 04/30/21 08:15 04/30/21 08:16 04/30/21 08:16 General appearance: Present: no acute distress, well-nourished, other (Sedated on vent) - EENT Eyes: Present: PERRL ENT: clear oral mucosa - Neck Neck: Present: supple - Respiratory Respiratory effort: normal - Cardiovascular Rhythm: regular Heart Sounds: Present: S1 & S2 - Extremities Extremities: no ischemia - Abdominal General gastrointestinal: soft - Integumentary Integumentary: Present: clear, warm, dry - Psychiatric Psychiatric: other - Neurologic Neurologic: other - Allied Health Allied health notes reviewed: nursing, social work, case management HEART Score - HEART Score Age: 45-65 Risk factors: 1-2 risk factors Troponin: Troponin T 0.055 ng/mL (0.00-0.029) H 04/21/21 16:32 - Critical Actions Critical Actions: 0-3 pts:0.9-1.7%risk of adverse cardiac event.Candidate for discharge Results - Labs CBC & Chem 7: 04/30/21 07:40 04/30/21 07:40 Labs: Laboratory Last Values WBC 8.8 K/mm3 (4.5-11.0) 04/30/21 07:40 RBC 4.18 M/mm3 (3.65-5.03) 04/30/21 07:40 Hgb 12.8 gm/dl (10.1-14.3) 04/30/21 07:40 Hct 39.2 % (30.3-42.9) 04/30/21 07:40 MCV 94 fl (79-97) 04/30/21 07:40 MCH 31 pg (28-32) 04/30/21 07:40 MCHC 33 % (30-34) 04/30/21 07:40 RDW 16.3 % (13.2-15.2) H 04/30/21 07:40 Plt Count 270 K/mm3 (140-440) 04/30/21 07:40 Lymph % (Auto) 12.0 % (13.4-35.0) L 04/22/21 05:29 Mcpherson % (Auto) 2.8 % (0.0-7.3) 04/30/21 07:40 Eos % (Auto) 0.9 % (0.0-4.3) 04/30/21 07:40 Baso % (Auto) 0.7 % (0.0-1.8) 04/22/21 05:29 Lymph # (Auto) 1.1 K/mm3 (1.2-5.4) L 04/22/21 05:29 Mcpherson # (Auto) 0.2 K/mm3 (0.0-0.8) 04/30/21 07:40 Eos # (Auto) 0.1 K/mm3 (0.0-0.4) 04/30/21 07:40 Baso # (Auto) 0.0 K/mm3 (0.0-0.1) 04/30/21 07:40 Add Manual Diff Complete 04/21/21 16:32 Total Counted 100 04/21/21 16:32 Seg Neutrophils % 88.4 % (40.0-70.0) H 04/30/21 07:40 Seg Neuts % (Manual) 79.0 % (40.0-70.0) H 04/21/21 16:32 Lymphocytes % (Manual) 13.0 % (13.4-35.0) L 04/21/21 16:32 Monocytes % (Manual) 8.0 % (0.0-7.3) H 04/21/21 16:32 Nucleated RBC % Not Reportable 04/21/21 16:32 Seg Neutrophils # 7.5 K/mm3 (1.8-7.7) 04/30/21 07:40 Seg Neutrophils # Man 6.6 K/mm3 (1.8-7.7) 04/21/21 16:32 Band Neutrophils # 0.0 K/mm3 04/21/21 16:32 Lymphocytes # (Manual) 1.1 K/mm3 (1.2-5.4) L 04/21/21 16:32 Abs React Lymphs (Man) 0.0 K/mm3 04/21/21 16:32 Monocytes # (Manual) 0.7 K/mm3 (0.0-0.8) 04/21/21 16:32 Eosinophils # (Manual) 0.0 K/mm3 (0.0-0.4) 04/21/21 16:32 Basophils # (Manual) 0.0 K/mm3 (0.0-0.1) 04/21/21 16:32 Metamyelocytes # 0.0 K/mm3 04/21/21 16:32 Myelocytes # 0.0 K/mm3 04/21/21 16:32 Promyelocytes # 0.0 K/mm3 04/21/21 16:32 Blast Cells # 0.0 K/mm3 04/21/21 16:32 WBC Morphology Not Reportable 04/21/21 16:32 Hypersegmented Neuts Not Reportable 04/21/21 16:32 Hyposegmented Neuts Not Reportable 04/21/21 16:32 Hypogranular Neuts Not Reportable 04/21/21 16:32 Smudge Cells Not Reportable 04/21/21 16:32 Toxic Granulation Not Reportable 04/21/21 16:32 Toxic Vacuolation Not Reportable 04/21/21 16:32 Dohle Bodies Not Reportable 04/21/21 16:32 Pelger-Huet Anomaly Not Reportable 04/21/21 16:32 Brenda Rods Not Reportable 04/21/21 16:32 Platelet Estimate Consistent w auto 04/21/21 16:32 Clumped Platelets Not Reportable 04/21/21 16:32 Plt Clumps, EDTA Not Reportable 04/21/21 16:32 Large Platelets Not Reportable 04/21/21 16:32 Giant Platelets Not Reportable 04/21/21 16:32 Platelet Satelliting Not Reportable 04/21/21 16:32 Plt Morphology Comment Not Reportable 04/21/21 16:32 RBC Morphology Not Reportable 04/21/21 16:32 Dimorphic RBCs Not Reportable 04/21/21 16:32 Polychromasia Not Reportable 04/21/21 16:32 Hypochromasia Not Reportable 04/21/21 16:32 Poikilocytosis Not Reportable 04/21/21 16:32 Anisocytosis 1+ 04/21/21 16:32 Microcytosis Not Reportable 04/21/21 16:32 Macrocytosis Not Reportable 04/21/21 16:32 Spherocytes Not Reportable 04/21/21 16:32 Pappenheimer Bodies Not Reportable 04/21/21 16:32 Sickle Cells Not Reportable 04/21/21 16:32 Target Cells Not Reportable 04/21/21 16:32 Tear Drop Cells Not Reportable 04/21/21 16:32 Ovalocytes Not Reportable 04/21/21 16:32 Helmet Cells Not Reportable 04/21/21 16:32 [place] Bodies Not Reportable 04/21/21 16:32 [place] Rings Not Reportable 04/21/21 16:32 Chay Cells Not Reportable 04/21/21 16:32 Bite Cells Not Reportable 04/21/21 16:32 Crenated Cell Not Reportable 04/21/21 16:32 Elliptocytes Not Reportable 04/21/21 16:32 Acanthocytes (Spur) Not Reportable 04/21/21 16:32 Rouleaux Not Reportable 04/21/21 16:32 Hemoglobin C Crystals Not Reportable 04/21/21 16:32 Schistocytes Not Reportable 04/21/21 16:32 Malaria parasites Not Reportable 04/21/21 16:32 Uli Bodies Not Reportable 04/21/21 16:32 Hem Pathologist Commnt No 04/21/21 16:32 PT 13.2 Sec. (12.2-14.9) 04/22/21 00:32 INR 0.95 (0.87-1.13) 04/22/21 00:32 APTT 29.2 Sec. (24.2-36.6) 04/22/21 00:32 D-Dimer 1522.26 ng/mlDDU (0-234) H 04/21/21 16:30 Heparin Anti-Xa Level 0.84 U.I./ml (0.3-0.7) H 04/24/21 10:14 ABG pH 7.401 (7.320-7.450) 04/30/21 05:00 POC ABG pCO2 55.6 mmHg (32.0-48.0) H 04/30/21 05:00 ABG pCO2 46.0 mm Hg 04/22/21 17:30 POC ABG pO2 62.4 mmHg (83-108) L 04/30/21 05:00 ABG pO2 99.6 mm Hg (80.0-90.0) H 04/22/21 17:30 POC ABG HCO3 33.7 04/30/21 05:00 ABG HCO3 24.4 mmol/L (20.0-26.0) 04/22/21 17:30 ABG O2 Saturation 91.4 (0-100) 04/30/21 05:00 ABG O2 Content 19.9 (0.0-44) 04/22/21 17:30 POC ABG Base Excess 7.4 04/30/21 05:00 ABG Base Excess -1.6 mmol/L (-2.0-3.0) 04/22/21 17:30 ABG Hemoglobin 12.9 (12.0-17.5) 04/30/21 05:00 ABG Oxyhemoglobin 90.1 (94-98) L 04/30/21 05:00 ABG Carboxyhemoglobin 0.9 % (0.0-5.0) 04/22/21 17:30 ABG Methemoglobin 0.3 (0.0-1.5) 04/30/21 05:00 ABG Sodium 146.8 mmol/L (136.0-145.0) H 04/30/21 05:00 ABG Potassium 4.5 mmol/L (3.40-4.50) 04/30/21 05:00 ABG Chloride 109.0 mmol/L (98-107) H 04/30/21 05:00 ABG Glucose 124 mg/dL (65-95) H 04/30/21 05:00 Oxyhemoglobin 95.9 % (95.0-99.0) 04/22/21 17:30 Carboxyhemoglobin 1.1 (0.5-1.5) 04/30/21 05:00 FiO2 100 % 04/22/21 17:30 FiO2 % 95.0 04/30/21 05:00 Sodium 149 mmol/L (137-145) H 04/30/21 07:40 Potassium 4.4 mmol/L (3.6-5.0) 04/30/21 07:40 Chloride 109.5 mmol/L (98-107) H 04/30/21 07:40 Carbon Dioxide 35 mmol/L (22-30) H 04/30/21 07:40 Anion Gap 9 mmol/L 04/30/21 07:40 BUN 33 mg/dL (7-17) H 04/30/21 07:40 Creatinine 0.7 mg/dL (0.6-1.2) 04/30/21 07:40 Estimated GFR > 60 ml/min 04/30/21 07:40 BUN/Creatinine Ratio 47 % 04/30/21 07:40 Glucose 126 mg/dL (65-100) H 04/30/21 07:40 POC Glucose 122 mg/dL (70-105) H 04/30/21 05:34 Calcium 9.4 mg/dL (8.4-10.2) 04/30/21 07:40 Phosphorus 2.90 mg/dL (2.5-4.5) D 04/25/21 07:42 Magnesium 2.60 mg/dL (1.7-2.3) H 04/30/21 07:40 Total Bilirubin 0.30 mg/dL (0.1-1.2) 04/30/21 07:40 AST 36 units/L (5-40) 04/30/21 07:40 ALT 27 units/L (7-56) 04/30/21 07:40 Alkaline Phosphatase 128 units/L (35-129) 04/30/21 07:40 Ammonia 58.0 umol/L (25-60) 04/28/21 04:45 Total Creatine Kinase 396 units/L (30-135) H 04/24/21 10:00 CK-MB (CK-2) 22.4 ng/mL (0.0-4.0) H 04/21/21 16:32 CK-MB (CK-2) Rel Index 0.7 (0-4) 04/21/21 16:32 Troponin T 0.055 ng/mL (0.00-0.029) H 04/21/21 16:32 Total Protein 5.8 g/dL (6.3-8.2) L 04/30/21 07:40 Albumin 2.2 g/dL (3.9-5) L 04/30/21 07:40 Albumin/Globulin Ratio 0.6 % 04/30/21 07:40 Triglycerides 332 mg/dL (2-149) H 04/30/21 07:40 Cholesterol 220 mg/dL (50-199) H 04/21/21 16:32 LDL Cholesterol Direct 142 mg/dL (50-130) H 04/21/21 16:32 HDL Cholesterol 36 mg/dL (40-59) L 04/21/21 16:32 Cholesterol/HDL Ratio 6.11 % 04/21/21 16:32 TSH 0.876 mlU/mL (0.270-4.200) 04/21/21 16:32 Free T4 1.05 ng/dL (0.76-1.46) 04/21/21 16:32 Arterial Blood Glucose 124 mg/dL (65-95) H 04/30/21 05:00 Arterial Blood Ionized Calcium 4.9 mg/dL (4.6-5.3) 04/29/21 03:51 Urine Color Yellow (Yellow) 04/21/21 Unknown Urine Turbidity Clear (Clear) 04/21/21 Unknown Urine pH 5.0 (5.0-7.0) 04/21/21 Unknown Ur Specific [place] 1.014 (1.003-1.030) 04/21/21 Unknown Urine Protein 100 mg/dl mg/dL (Negative) 04/21/21 Unknown Urine Glucose (UA) Neg mg/dL (Negative) 04/21/21 Unknown Urine Ketones Tr mg/dL (Negative) 04/21/21 Unknown Urine Blood Lg (Negative) 04/21/21 Unknown Urine Nitrite Neg (Negative) 04/21/21 Unknown Urine Bilirubin Neg (Negative) 04/21/21 Unknown Urine Urobilinogen 2.0 mg/dL (<2.0) 04/21/21 Unknown Ur Leukocyte Esterase Neg (Negative) 04/21/21 Unknown Urine WBC (Auto) 5.0 /HPF (0.0-6.0) 04/21/21 Unknown Urine RBC (Auto) 1.0 /HPF (0.0-6.0) 04/21/21 Unknown U Epithel Cells (Auto) 1.0 /HPF (0-13.0) 04/21/21 Unknown Urine Mucus Few /HPF 04/21/21 Unknown Urine Creatinine 138.9 mg/dL (0.1-20.0) H 04/22/21 13:03 Urine Total Protein 86 mg/dL (5-11.8) H 04/22/21 13:03 Urine Opiates Screen Negative 04/21/21 Unknown Urine Methadone Screen Negative 04/21/21 Unknown Ur Barbiturates Screen Negative 04/21/21 Unknown Ur Phencyclidine Scrn Negative 04/21/21 Unknown Ur Amphetamines Screen Negative 04/21/21 Unknown U Benzodiazepines Scrn Negative 04/21/21 Unknown Urine Cocaine Screen Negative 04/21/21 Unknown U Marijuana (THC) Screen Negative 04/21/21 Unknown Drugs of Abuse Note Disclamer 04/21/21 Unknown Plasma/Serum Alcohol < 0.01 % (0-0.07) 04/21/21 16:32 Coronavirus (PCR) Negative (Negative) 04/23/21 Unknown [place]/IV: Voiding Method External Female Catheter Active Medications - Current Medications Current Medications: Generic Name Dose Route Start Last Admin Trade Name Freq PRN Reason Stop Dose Admin Acetaminophen 650 mg 04/21/21 21:11 04/28/21 16:30 Acetaminophen 325 Mg Tab PO 650 mg Q4H PRN Administration Pain MILD(1-3)/Fever >100.5/DICKINSON Lipase/Protease/Amylase 1 each 04/22/21 10:51 Lipase 10,500/Protease 25,000/Amylase 43,750 (Units) Dr Cap FEEDTUBE PRN PRN For Clogged Feeding Tube Arformoterol Tartrate 15 mcg 04/29/21 20:00 04/30/21 08:03 Arformoterol 15 Mcg/2 Ml Nebu IH 15 mcg Q12HRT MINOR Administration Budesonide 0.5 mg 04/29/21 20:00 04/30/21 08:04 Budesonide 0.5 Mg/2 Ml Nebu IH 0.5 mg Q12HRT MINOR Administration Enoxaparin Sodium 80 mg 04/29/21 14:00 04/30/21 02:30 Enoxaparin 80 Mg/0.8 Ml Inj SUB-Q 80 mg Q12H MINOR Administration Famotidine 20 mg 04/24/21 10:00 04/30/21 09:13 Famotidine 20 Mg Tab PO 20 mg BID MINOR Administration Hydralazine HCl 10 mg 04/29/21 12:23 Hydralazine 20 Mg/1 Ml Inj IV Q4H PRN Hypertension Hydrophilic Ointment 1 applic 04/21/21 15:46 Lip Therapy Vaseline TP Q2HR PRN Dry Lips Fentanyl Citrate 2,000 mcg in 100 mls @ 3.515 mls/hr 04/21/21 16:00 04/30/21 09:16 Fentanyl Drip Premix IV 3 mcg/kg/hr TITR MINOR 10.546 mls/hr Titration Protocol 1 MCG/KG/HR Dexmedetomidine HCl 400 mcg/ 104 mls @ 4.144 mls/hr 04/25/21 06:00 04/30/21 09:13 Sodium Chloride IV 1.4 mcg/kg/hr TITRATE MINOR 29.011 mls/hr Administration Protocol 0.2 MCG/KG/HR Propofol 1,000 mg in 100 mls @ 2.19 mls/hr 04/26/21 11:00 04/30/21 09:40 Diprivan 10 Mg/Ml IV 35 mcg/kg/min TITR MINOR 15.33 mls/hr Administration Protocol 5 MCG/KG/MIN Levetiracetam 750 mg 04/25/21 10:00 04/30/21 09:13 Levetiracetam 500 Mg/5 Ml Oral Liqd PO 750 mg BID MINOR Administration Lorazepam 2 mg 04/26/21 10:55 04/27/21 02:52 Lorazepam 2 Mg/Ml Vial IV 2 mg Q4H PRN Administration Agitation Methylprednisolone Sodium Succinate 60 mg 04/28/21 06:00 04/30/21 06:29 Methylprednisolone Sod Succinate 40 Mg/1 Ml Inj IV 60 mg Q6H MINOR Administration Metoclopramide HCl 10 mg 04/28/21 09:52 Metoclopramide 10 Mg/2 Ml Inj IV Q6H PRN Nausea And Vomiting Multi-Ingred Cream/Lotion/Oil/Oint 1 applic 04/21/21 15:46 Mineral Oil/Petrolatum, White Ophth Oint 3.5 Gm OU Q4HR PRN Dry Eye(s) Ondansetron HCl 4 mg 04/26/21 06:15 Ondansetron 4 Mg/2 Ml Inj IV Q6HR PRN Nausea And Vomiting Senna/Docusate Sodium 1 tab 04/26/21 22:00 04/29/21 21:10 Sennosides/Docusate Sodium 8.6/50 Mg Tab FEEDTUBE 1 tab QHS MINOR Administration Simple Syrup 15 ml 04/22/21 10:51 Simple Syrup 15 Ml FEEDTUBE PRN PRN Hypoglycemia Simple Syrup 30 ml 04/22/21 10:51 Simple Syrup 15 Ml FEEDTUBE PRN PRN Hypoglycemia Sodium Bicarbonate 325 mg 04/22/21 10:51 Sodium Bicarbonate 325 Mg Tab FEEDTUBE PRN PRN For Clogged Feeding Tube Sodium Chloride 10 ml 04/21/21 22:00 04/30/21 09:15 Sodium Chloride 0.9% 10 Ml Flush Syringe IV 10 ml BID MINOR Administration Sodium Chloride 10 ml 04/21/21 21:11 04/27/21 02:54 Sodium Chloride 0.9% 10 Ml Flush Syringe IV 10 ml PRN PRN Administration LINE FLUSH Nutrition/Malnutrition Assess - Dietary Evaluation Nutrition/Malnutrition Findings: Nutrition Notes Start: 04/22/21 10:45 Freq: Status: Active Protocol: Document 04/24/21 14:58 MAYRA (Rec: 04/24/21 15:04 MAYRA [id number]) Nutrition Notes Initial or Follow up Reassessment Current Diagnosis Acute Kidney Injury, Hypertension,Stroke, Hyperlipidemia Other Pertinent Diagnosis New onset seizures, AMS, pulmonary embolism Current Diet TF - Nepro 35ml/hr Labs/Tests reviewed Pertinent Medications reviewed Height 5 ft 9 in Weight 79.7 kg [place] Body Weight (kg) 65.90 BMI 25.9 Weight change and time frame wt change noted Weight Status Appropriate Subjective/Other Information Per RN, pt tolerating TF at goal rate. Pt remains on vent support. Percent of energy/protein needs met: 89% energy 71% pro Burn Absent Trauma Absent #1 Nutrition Diagnosis Inadequate oral intake Diagnosis Progress(for reassessment Continues documentation) Is patient on ventilator? Yes Is Patient Ambulatory and/or Out of Bed No REE-([place]-St. Jeor-confined to bed) [phone] Calculation Used for Recommendations [place]-St Jeor Additional Notes Pro needs 1.2-2g/k-159g/ day Fluid needs 1ml/kcal Nutrition Intervention Nutrition Support: Continue Nepro at 35ml/hr with 150ml water flush q4h. Kcal 1,512 Protein (gm) 68 Carbohydrates (gm) 135 Fat (gm) 81 Fluid (mL) 611 Fiber (gm) 11 Goal #1 TF tolerance Goal #2 TF to meet at least 75% energy and pro needs Follow-Up By: 05/01/21 Additional Comments F/U: stable TF, vent status, wt - Attestation Statement I have reviewed and agreed w/ Malnutrition eval & tx plan: Yes
--- NOTE | 2021-04-30 10:03 | Progress Note ---
Assessment and Plan 66 y/o female, intubated for airway protection, found to have severe ILD and no has refractory hypoxemia. 04/30/21: Will add Ativan drip and attempt to wean Precedex to off. Once adequate sedation achieved and BP stable, will give an additional dose of IV lasix today. Increased Free Water to 250q4. Ok with current Triglyceride level but will need to repeat. Prognosis remains guarded. Will call daughter to update her. 04/29/21: Continue low tidal volumes and high PEEPs. Lasix 40mg IV x1 today. Continue high dose steroids. Will start pulmicort and brovana therapy. Prognosis remains very very guarded. Follow up Triglyceride episode tomorrow. 04/26/21: Dropped tidal volume to 300. Keep PEEP at 16. Repeat ABG at 1230. Now that BP is better will give lasix 40 IV x1. Please assess again tomorrow and see if she would benefit from this. Pulse dose steroids through tomorrow and then solumedrol 60q6 starting on Thursday. Spoke with daughter over the phone who confirmed that mother was a smoker, heavy for 30+ years. Will start on BID pulmicort and brovana therapy. Overall prognosis discussed with daughter regarding possible need for trach and vent dependence. She asked about lung tx which I explained is not an option at this time. She seemed to express understanding but was mainly in shock as she had no idea her mother had ILD and per daughter, mother never saw a lung physician. Guarded to poor prognosis. My partner rounding over the weekend, I am back on Thursday. 04/25/21: Picc line today. Increase PEEP to 16. Dropped TV back to 375. pH of 7.2 and greater is acceptable. Will also pulse dose for the next 72 hours and then transition to q6 dosing on Thursday. Will discuss current clinical state wi th daughter. Serial ABG's today to make sure pH stays where it needs to be and hopeful improvement in oxygenation. Guarded prognosis. 04/24/21: Will drop TV to 375 and Increase PEEP to 14. Will repeat ABG in one hour. If no improvements, may need to consider IV steroids for 48-72 hours. Exact etiology of chronic lung disease is not known. Would prefer not to give sedation vacation given high levels of oxygen required as agitation could make things worse. Right now, unable to determine current neuro state. Lungs are very very sick and even though this is a chronic issue, now with her drive diminished from the ventilator, most likely will be a difficult wean. Will discuss with family soon what the next steps could potentially be but would need to assess mental state first. Guarded prognosis. 1. Increase PEEP and repeat ABG 2. May need to consider IV steroids 3. Follow up neuro recs 4. Guarded prognosis. cCT 31 minutes. Subjective Date of service: 04/30/21 Principal diagnosis: Acute kidney injury, rhabdomyolysis Interval history: Still with very rapid shallow breathing despite Diprovan, Fent and Precedex. Maintaining sats. Still making good urine. Objective Vital Signs - 12hr 04/29/21 04/29/21 04/29/21 22:15 22:30 22:45 Temperature Pulse Rate 86 80 76 Pulse Rate [ Bilateral] Pulse Rate [ From Monitor] Respiratory 25 H 22 20 Rate Respiratory Rate [Bilateral ] Blood Pressure 129/71 126/75 132/89 O2 Sat by Pulse 91 92 93 Oximetry 04/29/21 04/29/21 04/29/21 23:00 23:15 23:30 Temperature Pulse Rate 74 75 76 Pulse Rate [ Bilateral] Pulse Rate [ From Monitor] Respiratory 19 20 20 Rate Respiratory Rate [Bilateral ] Blood Pressure 137/86 132/81 133/84 O2 Sat by Pulse 94 95 95 Oximetry 04/29/21 04/30/21 04/30/21 23:45 00:00 00:15 Temperature 97.8 F Pulse Rate 76 76 76 Pulse Rate [ Bilateral] Pulse Rate [ 76 From Monitor] Respiratory 20 19 20 Rate Respiratory Rate [Bilateral ] Blood Pressure 135/80 128/81 124/85 O2 Sat by Pulse 95 96 96 Oximetry 04/30/21 04/30/21 04/30/21 00:30 00:45 01:00 Temperature Pulse Rate 76 76 76 Pulse Rate [ Bilateral] Pulse Rate [ From Monitor] Respiratory 19 19 19 Rate Respiratory Rate [Bilateral ] Blood Pressure 122/75 118/82 135/78 O2 Sat by Pulse 95 95 95 Oximetry 04/30/21 04/30/21 04/30/21 01:07 01:15 01:30 Temperature Pulse Rate 58 L 77 83 Pulse Rate [ Bilateral] Pulse Rate [ From Monitor] Respiratory 18 22 Rate Respiratory Rate [Bilateral ] Blood Pressure 148/78 127/76 110/61 O2 Sat by Pulse 97 95 93 Oximetry 04/30/21 04/30/21 04/30/21 01:45 02:00 02:15 Temperature Pulse Rate 89 86 77 Pulse Rate [ Bilateral] Pulse Rate [ From Monitor] Respiratory 22 24 19 Rate Respiratory Rate [Bilateral ] Blood Pressure 106/64 111/69 120/73 O2 Sat by Pulse 92 93 93 Oximetry 04/30/21 04/30/21 04/30/21 02:30 02:45 03:00 Temperature Pulse Rate 78 76 77 Pulse Rate [ Bilateral] Pulse Rate [ From Monitor] Respiratory 20 20 19 Rate Respiratory Rate [Bilateral ] Blood Pressure 115/76 107/71 111/69 O2 Sat by Pulse 94 95 95 Oximetry 04/30/21 04/30/21 04/30/21 03:15 03:30 03:45 Temperature Pulse Rate 79 77 77 Pulse Rate [ Bilateral] Pulse Rate [ From Monitor] Respiratory 19 20 20 Rate Respiratory Rate [Bilateral ] Blood Pressure 114/67 118/75 119/72 O2 Sat by Pulse 96 96 96 Oximetry 04/30/21 04/30/21 04/30/21 04:00 04:15 04:30 Temperature 98.5 F Pulse Rate 77 77 77 Pulse Rate [ Bilateral] Pulse Rate [ 77 From Monitor] Respiratory 20 20 22 Rate Respiratory Rate [Bilateral ] Blood Pressure 119/69 123/79 119/74 O2 Sat by Pulse 95 95 95 Oximetry 04/30/21 04/30/21 04/30/21 04:45 05:00 05:15 Temperature Pulse Rate 78 79 78 Pulse Rate [ Bilateral] Pulse Rate [ From Monitor] Respiratory 22 21 Rate Respiratory Rate [Bilateral ] Blood Pressure 126/79 137/80 106/67 O2 Sat by Pulse 94 95 93 Oximetry 04/30/21 04/30/21 04/30/21 05:20 05:30 05:45 Temperature Pulse Rate 85 84 85 Pulse Rate [ Bilateral] Pulse Rate [ From Monitor] Respiratory 21 22 Rate Respiratory Rate [Bilateral ] Blood Pressure 112/69 112/69 97/62 O2 Sat by Pulse 93 93 92 Oximetry 04/30/21 04/30/21 04/30/21 06:00 06:15 06:31 Temperature Pulse Rate 83 87 88 Pulse Rate [ Bilateral] Pulse Rate [ From Monitor] Respiratory 22 28 H 24 Rate Respiratory Rate [Bilateral ] Blood Pressure 105/67 105/67 109/60 O2 Sat by Pulse 94 91 91 Oximetry 04/30/21 04/30/21 04/30/21 06:45 07:00 07:15 Temperature Pulse Rate 100 H 104 H 103 H Pulse Rate [ Bilateral] Pulse Rate [ From Monitor] Respiratory 30 H 24 28 H Rate Respiratory Rate [Bilateral ] Blood Pressure 111/77 117/69 96/66 O2 Sat by Pulse 90 91 91 Oximetry 04/30/21 04/30/21 04/30/21 07:30 07:45 08:00 Temperature Pulse Rate 104 H 88 98 H Pulse Rate [ Bilateral] Pulse Rate [ 84 From Monitor] Respiratory 29 H 26 H 33 H Rate Respiratory Rate [Bilateral ] Blood Pressure 90/59 88/55 143/89 O2 Sat by Pulse 91 90 92 Oximetry 04/30/21 04/30/21 04/30/21 08:09 08:15 08:16 Temperature Pulse Rate 99 H 100 H Pulse Rate [ 93 H Bilateral] Pulse Rate [ From Monitor] Respiratory 36 H Rate Respiratory 27 H Rate [Bilateral ] Blood Pressure 151/100 139/77 O2 Sat by Pulse 84 91 Oximetry 04/30/21 04/30/21 04/30/21 08:30 08:45 09:00 Temperature Pulse Rate 98 H 110 H 107 H Pulse Rate [ Bilateral] Pulse Rate [ From Monitor] Respiratory 31 H 33 H 31 H Rate Respiratory Rate [Bilateral ] Blood Pressure 123/69 132/78 123/74 O2 Sat by Pulse 89 89 90 Oximetry 04/30/21 04/30/21 04/30/21 09:07 09:15 09:30 Temperature 97.8 F Pulse Rate 115 H 105 H Pulse Rate [ Bilateral] Pulse Rate [ From Monitor] Respiratory 32 H 32 H Rate Respiratory Rate [Bilateral ] Blood Pressure 136/80 134/70 O2 Sat by Pulse 89 89 Oximetry 04/30/21 09:45 Temperature Pulse Rate 109 H Pulse Rate [ Bilateral] Pulse Rate [ From Monitor] Respiratory 29 H Rate Respiratory Rate [Bilateral ] Blood Pressure 140/89 O2 Sat by Pulse 93 Oximetry Constitutional: no acute distress, other (Sedated) Ascultation: Bilateral: rales, rhonchi CBC and BMP: 04/30/21 07:40 04/30/21 07:40 ABG, PT/INR, D-dimer: ABG ABG pH 7.401 (7.320-7.450) 04/30/21 05:00 POC ABG pCO2 55.6 mmHg (32.0-48.0) H 04/30/21 05:00 ABG pCO2 46.0 mm Hg 04/22/21 17:30 POC ABG pO2 62.4 mmHg (83-108) L 04/30/21 05:00 ABG pO2 99.6 mm Hg (80.0-90.0) H 04/22/21 17:30 POC ABG HCO3 33.7 04/30/21 05:00 ABG O2 Saturation 91.4 (0-100) 04/30/21 05:00 PT/INR, D-dimer PT 13.2 Sec. (12.2-14.9) 04/22/21 00:32 INR 0.95 (0.87-1.13) 04/22/21 00:32 D-Dimer 1522.26 ng/mlDDU (0-234) H 04/21/21 16:30 Abnormal lab findings: Abnormal Labs 04/21/21 04/21/21 04/21/21 14:40 15:42 16:30 RBC Hgb Hct RDW Lymph % (Auto) [place] % (Auto) Lymph # (Auto) Seg Neutrophils % Seg Neuts % (Manual) Lymphocytes % (Manual) Monocytes % (Manual) Lymphocytes # (Manual) D-Dimer 1522.26 H Heparin Anti-Xa Level ABG pH POC ABG pCO2 POC ABG pO2 45.5 L 69.9 L ABG pO2 ABG Hemoglobin ABG Oxyhemoglobin 78.6 L 90.2 L ABG Sodium ABG Potassium ABG Chloride 111.0 H ABG Glucose 156 H 148 H Carboxyhemoglobin Sodium Potassium Chloride Carbon Dioxide BUN Creatinine Glucose POC Glucose Calcium Phosphorus Magnesium AST ALT Total Creatine Kinase CK-MB (CK-2) Troponin T Total Protein Albumin Triglycerides Cholesterol LDL Cholesterol Direct HDL Cholesterol Arterial Blood Glucose 156 H 148 H Arterial Blood Ionized Calcium 4.5 L Urine Creatinine Urine Total Protein 04/21/21 04/21/21 04/22/21 16:32 16:32 00:32 RBC 5.22 H Hgb 16.2 H 14.8 H Hct 48.6 H 44.4 H RDW 15.8 H Lymph % (Auto) [place] % (Auto) Lymph # (Auto) Seg Neutrophils % Seg Neuts % (Manual) 79.0 H Lymphocytes % (Manual) 13.0 L Monocytes % (Manual) 8.0 H Lymphocytes # (Manual) 1.1 L D-Dimer Heparin Anti-Xa Level ABG pH POC ABG pCO2 POC ABG pO2 ABG pO2 ABG Hemoglobin ABG Oxyhemoglobin ABG Sodium ABG Potassium ABG Chloride ABG Glucose Carboxyhemoglobin Sodium Potassium Chloride Carbon Dioxide 21 L BUN 24 H Creatinine 1.3 H Glucose 130 H POC Glucose Calcium Phosphorus Magnesium AST 129 H ALT 61 H Total Creatine Kinase 3055 H CK-MB (CK-2) 22.4 H Troponin T 0.055 H Total Protein Albumin 3.6 L Triglycerides 235 H Cholesterol 220 H LDL Cholesterol Direct 142 H HDL Cholesterol 36 L Arterial Blood Glucose Arterial Blood Ionized Calcium Urine Creatinine Urine Total Protein 04/22/21 04/22/21 04/22/21 03:27 05:29 05:29 RBC Hgb 15.4 H Hct 45.8 H RDW 16.0 H Lymph % (Auto) 12.0 L [place] % (Auto) 8.0 H Lymph # (Auto) 1.1 L Seg Neutrophils % 76.3 H Seg Neuts % (Manual) Lymphocytes % (Manual) Monocytes % (Manual) Lymphocytes # (Manual) D-Dimer Heparin Anti-Xa Level ABG pH POC ABG pCO2 POC ABG pO2 ABG pO2 ABG Hemoglobin ABG Oxyhemoglobin ABG Sodium ABG Potassium 4.7 H ABG Chloride 109.0 H ABG Glucose 155 H Carboxyhemoglobin 0.4 L Sodium Potassium 6.3 H* D Chloride Carbon Dioxide BUN 26 H Creatinine Glucose 134 H POC Glucose Calcium Phosphorus Magnesium AST 123 H ALT Total Creatine Kinase CK-MB (CK-2) Troponin T Total Protein Albumin 3.6 L Triglycerides Cholesterol LDL Cholesterol Direct HDL Cholesterol Arterial Blood Glucose 155 H Arterial Blood Ionized Calcium Urine Creatinine Urine Total Protein 04/22/21 04/22/21 04/22/21 13:03 13:25 17:30 RBC Hgb Hct RDW Lymph % (Auto) [place] % (Auto) Lymph # (Auto) Seg Neutrophils % Seg Neuts % (Manual) Lymphocytes % (Manual) Monocytes % (Manual) Lymphocytes # (Manual) D-Dimer Heparin Anti-Xa Level ABG pH 7.343 L POC ABG pCO2 POC ABG pO2 ABG pO2 99.6 H ABG Hemoglobin ABG Oxyhemoglobin ABG Sodium ABG Potassium ABG Chloride ABG Glucose Carboxyhemoglobin Sodium Potassium Chloride Carbon Dioxide BUN Creatinine Glucose POC Glucose Calcium Phosphorus Magnesium AST ALT Total Creatine Kinase 2322 H CK-MB (CK-2) Troponin T Total Protein Albumin Triglycerides Cholesterol LDL Cholesterol Direct HDL Cholesterol Arterial Blood Glucose Arterial Blood Ionized Calcium Urine Creatinine 138.9 H Urine Total Protein 86 H 04/22/21 04/23/21 04/23/21 20:00 04:42 09:53 RBC Hgb Hct RDW Lymph % (Auto) [place] % (Auto) Lymph # (Auto) Seg Neutrophils % Seg Neuts % (Manual) Lymphocytes % (Manual) Monocytes % (Manual) Lymphocytes # (Manual) D-Dimer Heparin Anti-Xa Level 2.00 H < 0.10 L ABG pH POC ABG pCO2 POC ABG pO2 ABG pO2 ABG Hemoglobin ABG Oxyhemoglobin 83.2 L ABG Sodium ABG Potassium ABG Chloride 113.0 H ABG Glucose 107 H Carboxyhemoglobin Sodium Potassium Chloride Carbon Dioxide BUN Creatinine Glucose POC Glucose Calcium Phosphorus Magnesium AST ALT Total Creatine Kinase CK-MB (CK-2) Troponin T Total Protein Albumin Triglycerides Cholesterol LDL Cholesterol Direct HDL Cholesterol Arterial Blood Glucose 107 H Arterial Blood Ionized Calcium Urine Creatinine Urine Total Protein 04/23/21 04/23/21 04/23/21 14:21 14:21 15:11 RBC Hgb Hct RDW 16.3 H Lymph % (Auto) [place] % (Auto) Lymph # (Auto) Seg Neutrophils % Seg Neuts % (Manual) Lymphocytes % (Manual) Monocytes % (Manual) Lymphocytes # (Manual) D-Dimer Heparin Anti-Xa Level ABG pH POC ABG pCO2 POC ABG pO2 68.6 L ABG pO2 ABG Hemoglobin ABG Oxyhemoglobin 91.3 L ABG Sodium ABG Potassium ABG Chloride 113.0 H ABG Glucose 100 H Carboxyhemoglobin Sodium Potassium Chloride 113.1 H Carbon Dioxide 20 L BUN 18 H Creatinine Glucose POC Glucose Calcium 8.2 L Phosphorus Magnesium AST 59 H ALT Total Creatine Kinase 681 H CK-MB (CK-2) Troponin T Total Protein 5.5 L Albumin 2.3 L Triglycerides Cholesterol LDL Cholesterol Direct HDL Cholesterol Arterial Blood Glucose 100 H Arterial Blood Ionized Calcium Urine Creatinine Urine Total Protein 04/23/21 04/24/21 04/24/21 18:30 04:00 05:37 RBC Hgb Hct RDW Lymph % (Auto) [place] % (Auto) Lymph # (Auto) Seg Neutrophils % Seg Neuts % (Manual) Lymphocytes % (Manual) Monocytes % (Manual) Lymphocytes # (Manual) D-Dimer Heparin Anti-Xa Level 1.84 H ABG pH POC ABG pCO2 POC ABG pO2 51.9 L ABG pO2 ABG Hemoglobin ABG Oxyhemoglobin 84.9 L ABG Sodium ABG Potassium ABG Chloride 112.0 H ABG Glucose 138 H Carboxyhemoglobin Sodium Potassium Chloride Carbon Dioxide BUN Creatinine Glucose POC Glucose 108 H Calcium Phosphorus Magnesium AST ALT Total Creatine Kinase CK-MB (CK-2) Troponin T Total Protein Albumin Triglycerides Cholesterol LDL Cholesterol Direct HDL Cholesterol Arterial Blood Glucose 138 H Arterial Blood Ionized Calcium Urine Creatinine Urine Total Protein 04/24/21 04/24/21 04/24/21 10:00 10:00 10:14 RBC Hgb Hct RDW 16.0 H Lymph % (Auto) [place] % (Auto) Lymph # (Auto) Seg Neutrophils % Seg Neuts % (Manual) Lymphocytes % (Manual) Monocytes % (Manual) Lymphocytes # (Manual) D-Dimer Heparin Anti-Xa Level 0.84 H ABG pH POC ABG pCO2 POC ABG pO2 ABG pO2 ABG Hemoglobin ABG Oxyhemoglobin ABG Sodium ABG Potassium ABG Chloride ABG Glucose Carboxyhemoglobin Sodium Potassium Chloride 109.9 H Carbon Dioxide BUN Creatinine Glucose 118 H POC Glucose Calcium Phosphorus 2.00 L Magnesium 2.40 H AST 59 H ALT Total Creatine Kinase 396 H CK-MB (CK-2) Troponin T Total Protein 5.5 L Albumin 2.4 L Triglycerides Cholesterol LDL Cholesterol Direct HDL Cholesterol Arterial Blood Glucose Arterial Blood Ionized Calcium Urine Creatinine Urine Total Protein 04/24/21 04/24/21 04/24/21 11:14 12:00 15:23 RBC Hgb Hct RDW Lymph % (Auto) [place] % (Auto) Lymph # (Auto) Seg Neutrophils % Seg Neuts % (Manual) Lymphocytes % (Manual) Monocytes % (Manual) Lymphocytes # (Manual) D-Dimer Heparin Anti-Xa Level ABG pH 7.287 L POC ABG pCO2 54.3 H POC ABG pO2 58.2 L 67.5 L ABG pO2 ABG Hemoglobin ABG Oxyhemoglobin 88.3 L 89.9 L ABG Sodium ABG Potassium ABG Chloride 111.0 H 110.0 H ABG Glucose 117 H 126 H Carboxyhemoglobin 0.3 L Sodium Potassium Chloride Carbon Dioxide BUN Creatinine Glucose POC Glucose 112 H Calcium Phosphorus Magnesium AST ALT Total Creatine Kinase CK-MB (CK-2) Troponin T Total Protein Albumin Triglycerides Cholesterol LDL Cholesterol Direct HDL Cholesterol Arterial Blood Glucose 117 H 126 H Arterial Blood Ionized Calcium Urine Creatinine Urine Total Protein 04/24/21 04/24/21 04/24/21 17:58 18:00 22:56 RBC Hgb Hct RDW Lymph % (Auto) [place] % (Auto) Lymph # (Auto) Seg Neutrophils % Seg Neuts % (Manual) Lymphocytes % (Manual) Monocytes % (Manual) Lymphocytes # (Manual) D-Dimer Heparin Anti-Xa Level ABG pH POC ABG pCO2 POC ABG pO2 53.3 L ABG pO2 ABG Hemoglobin ABG Oxyhemoglobin 86.2 L ABG Sodium ABG Potassium ABG Chloride 111.0 H ABG Glucose 115 H Carboxyhemoglobin 0.4 L Sodium Potassium Chloride Carbon Dioxide BUN Creatinine Glucose POC Glucose 106 H 131 H Calcium Phosphorus Magnesium AST ALT Total Creatine Kinase CK-MB (CK-2) Troponin T Total Protein Albumin Triglycerides Cholesterol LDL Cholesterol Direct HDL Cholesterol Arterial Blood Glucose 115 H Arterial Blood Ionized Calcium Urine Creatinine Urine Total Protein 04/25/21 04/25/21 04/25/21 04:00 07:42 10:50 RBC Hgb Hct RDW Lymph % (Auto) [place] % (Auto) Lymph # (Auto) Seg Neutrophils % Seg Neuts % (Manual) Lymphocytes % (Manual) Monocytes % (Manual) Lymphocytes # (Manual) D-Dimer Heparin Anti-Xa Level ABG pH POC ABG pCO2 POC ABG pO2 48.5 L 56.5 L ABG pO2 ABG Hemoglobin 10.6 L 10.4 L ABG Oxyhemoglobin 79.4 L 86.8 L ABG Sodium ABG Potassium ABG Chloride 111.0 H 112.0 H ABG Glucose 115 H 124 H Carboxyhemoglobin 0.2 L Sodium 146 H Potassium Chloride 111.3 H Carbon Dioxide BUN Creatinine Glucose 128 H POC Glucose Calcium Phosphorus Magnesium AST ALT Total Creatine Kinase CK-MB (CK-2) Troponin T Total Protein Albumin Triglycerides Cholesterol LDL Cholesterol Direct HDL Cholesterol Arterial Blood Glucose 115 H 124 H Arterial Blood Ionized Calcium Urine Creatinine Urine Total Protein 04/25/21 04/25/21 04/25/21 11:12 13:55 16:05 RBC Hgb Hct RDW Lymph % (Auto) [place] % (Auto) Lymph # (Auto) Seg Neutrophils % Seg Neuts % (Manual) Lymphocytes % (Manual) Monocytes % (Manual) Lymphocytes # (Manual) D-Dimer Heparin Anti-Xa Level ABG pH POC ABG pCO2 POC ABG pO2 46.7 L 53.7 L ABG pO2 ABG Hemoglobin 10.7 L 11.1 L ABG Oxyhemoglobin 81.3 L 85.6 L ABG Sodium ABG Potassium ABG Chloride 111.0 H 111.0 H ABG Glucose 158 H 185 H Carboxyhemoglobin 0.4 L Sodium Potassium Chloride Carbon Dioxide BUN Creatinine Glucose POC Glucose 136 H Calcium Phosphorus Magnesium AST ALT Total Creatine Kinase CK-MB (CK-2) Troponin T Total Protein Albumin Triglycerides Cholesterol LDL Cholesterol Direct HDL Cholesterol Arterial Blood Glucose 158 H 185 H Arterial Blood Ionized Calcium Urine Creatinine Urine Total Protein 04/25/21 04/25/21 04/26/21 17:39 23:18 05:06 RBC Hgb Hct RDW Lymph % (Auto) [place] % (Auto) Lymph # (Auto) Seg Neutrophils % Seg Neuts % (Manual) Lymphocytes % (Manual) Monocytes % (Manual) Lymphocytes # (Manual) D-Dimer Heparin Anti-Xa Level ABG pH POC ABG pCO2 POC ABG pO2 ABG pO2 ABG Hemoglobin ABG Oxyhemoglobin ABG Sodium ABG Potassium ABG Chloride ABG Glucose Carboxyhemoglobin Sodium Potassium Chloride Carbon Dioxide BUN Creatinine Glucose POC Glucose 155 H 158 H 134 H Calcium Phosphorus Magnesium AST ALT Total Creatine Kinase CK-MB (CK-2) Troponin T Total Protein Albumin Triglycerides Cholesterol LDL Cholesterol Direct HDL Cholesterol Arterial Blood Glucose Arterial Blood Ionized Calcium Urine Creatinine Urine Total Protein 04/26/21 04/26/21 04/26/21 05:22 12:20 13:16 RBC Hgb Hct RDW Lymph % (Auto) [place] % (Auto) Lymph # (Auto) Seg Neutrophils % Seg Neuts % (Manual) Lymphocytes % (Manual) Monocytes % (Manual) Lymphocytes # (Manual) D-Dimer Heparin Anti-Xa Level ABG pH POC ABG pCO2 POC ABG pO2 52.2 L 53.9 L ABG pO2 ABG Hemoglobin 10.9 L 11.5 L ABG Oxyhemoglobin 86.5 L 86.4 L ABG Sodium 145.8 H ABG Potassium 4.6 H ABG Chloride 114.0 H 112.0 H ABG Glucose 144 H 162 H Carboxyhemoglobin 0.4 L 0.4 L Sodium Potassium Chloride Carbon Dioxide BUN Creatinine Glucose POC Glucose 160 H Calcium Phosphorus Magnesium AST ALT Total Creatine Kinase CK-MB (CK-2) Troponin T Total Protein Albumin Triglycerides Cholesterol LDL Cholesterol Direct HDL Cholesterol Arterial Blood Glucose 144 H 162 H Arterial Blood Ionized Calcium Urine Creatinine Urine Total Protein 04/26/21 04/26/21 04/26/21 14:09 18:42 23:30 RBC Hgb Hct RDW Lymph % (Auto) [place] % (Auto) Lymph # (Auto) Seg Neutrophils % Seg Neuts % (Manual) Lymphocytes % (Manual) Monocytes % (Manual) Lymphocytes # (Manual) D-Dimer Heparin Anti-Xa Level ABG pH POC ABG pCO2 POC ABG pO2 55.3 L ABG pO2 ABG Hemoglobin 11.6 L ABG Oxyhemoglobin 87.2 L ABG Sodium 146.6 H ABG Potassium ABG Chloride 111.0 H ABG Glucose 165 H Carboxyhemoglobin Sodium Potassium Chloride Carbon Dioxide BUN Creatinine Glucose POC Glucose 161 H 163 H Calcium Phosphorus Magnesium AST ALT Total Creatine Kinase CK-MB (CK-2) Troponin T Total Protein Albumin Triglycerides Cholesterol LDL Cholesterol Direct HDL Cholesterol Arterial Blood Glucose 165 H Arterial Blood Ionized Calcium Urine Creatinine Urine Total Protein 04/27/21 04/27/21 04/27/21 03:51 05:14 06:25 RBC 3.64 L Hgb Hct RDW 16.2 H Lymph % (Auto) [place] % (Auto) Lymph # (Auto) Seg Neutrophils % Seg Neuts % (Manual) Lymphocytes % (Manual) Monocytes % (Manual) Lymphocytes # (Manual) D-Dimer Heparin Anti-Xa Level ABG pH POC ABG pCO2 52.9 H POC ABG pO2 60.8 L ABG pO2 ABG Hemoglobin 11.9 L ABG Oxyhemoglobin 87.9 L ABG Sodium 147.8 H ABG Potassium ABG Chloride 111.0 H ABG Glucose 183 H Carboxyhemoglobin Sodium Potassium Chloride Carbon Dioxide BUN Creatinine Glucose POC Glucose 165 H Calcium Phosphorus Magnesium AST ALT Total Creatine Kinase CK-MB (CK-2) Troponin T Total Protein Albumin Triglycerides Cholesterol LDL Cholesterol Direct HDL Cholesterol Arterial Blood Glucose 183 H Arterial Blood Ionized Calcium Urine Creatinine Urine Total Protein 04/27/21 04/27/21 04/27/21 06:25 11:45 17:41 RBC Hgb Hct RDW Lymph % (Auto) [place] % (Auto) Lymph # (Auto) Seg Neutrophils % Seg Neuts % (Manual) Lymphocytes % (Manual) Monocytes % (Manual) Lymphocytes # (Manual) D-Dimer Heparin Anti-Xa Level ABG pH POC ABG pCO2 POC ABG pO2 ABG pO2 ABG Hemoglobin ABG Oxyhemoglobin ABG Sodium ABG Potassium ABG Chloride ABG Glucose Carboxyhemoglobin Sodium 148 H Potassium 5.1 H D Chloride 109.0 H Carbon Dioxide BUN 35 H Creatinine Glucose 170 H POC Glucose 184 H 172 H Calcium Phosphorus Magnesium AST 48 H ALT Total Creatine Kinase CK-MB (CK-2) Troponin T Total Protein Albumin 2.4 L Triglycerides Cholesterol LDL Cholesterol Direct HDL Cholesterol Arterial Blood Glucose Arterial Blood Ionized Calcium Urine Creatinine Urine Total Protein 04/27/21 04/28/21 04/28/21 23:16 03:23 04:00 RBC Hgb Hct RDW Lymph % (Auto) [place] % (Auto) Lymph # (Auto) Seg Neutrophils % Seg Neuts % (Manual) Lymphocytes % (Manual) Monocytes % (Manual) Lymphocytes # (Manual) D-Dimer Heparin Anti-Xa Level ABG pH POC ABG pCO2 55.9 H POC ABG pO2 76.2 L ABG pO2 ABG Hemoglobin 11.5 L ABG Oxyhemoglobin 92.9 L ABG Sodium 153.3 H ABG Potassium 3.2 L ABG Chloride 115.0 H ABG Glucose 154 H Carboxyhemoglobin Sodium 154 H Potassium 3.5 L D Chloride 114.4 H Carbon Dioxide 31 H BUN 32 H Creatinine Glucose 148 H POC Glucose 142 H Calcium Phosphorus Magnesium AST ALT Total Creatine Kinase CK-MB (CK-2) Troponin T Total Protein 6.0 L Albumin 2.4 L Triglycerides Cholesterol LDL Cholesterol Direct HDL Cholesterol Arterial Blood Glucose 154 H Arterial Blood Ionized Calcium Urine Creatinine Urine Total Protein 04/28/21 04/28/21 04/28/21 04:45 06:05 11:57 RBC Hgb Hct RDW 16.1 H Lymph % (Auto) [place] % (Auto) Lymph # (Auto) Seg Neutrophils % Seg Neuts % (Manual) Lymphocytes % (Manual) Monocytes % (Manual) Lymphocytes # (Manual) D-Dimer Heparin Anti-Xa Level ABG pH POC ABG pCO2 POC ABG pO2 ABG pO2 ABG Hemoglobin ABG Oxyhemoglobin ABG Sodium ABG Potassium ABG Chloride ABG Glucose Carboxyhemoglobin Sodium Potassium Chloride Carbon Dioxide BUN Creatinine Glucose POC Glucose 153 H 109 H Calcium Phosphorus Magnesium AST ALT Total Creatine Kinase CK-MB (CK-2) Troponin T Total Protein Albumin Triglycerides Cholesterol LDL Cholesterol Direct HDL Cholesterol Arterial Blood Glucose Arterial Blood Ionized Calcium Urine Creatinine Urine Total Protein 04/28/21 04/28/21 04/29/21 17:39 23:58 03:51 RBC Hgb Hct RDW Lymph % (Auto) [place] % (Auto) Lymph # (Auto) Seg Neutrophils % Seg Neuts % (Manual) Lymphocytes % (Manual) Monocytes % (Manual) Lymphocytes # (Manual) D-Dimer Heparin Anti-Xa Level ABG pH POC ABG pCO2 54.7 H POC ABG pO2 68.6 L ABG pO2 ABG Hemoglobin 11.9 L ABG Oxyhemoglobin 91.7 L ABG Sodium 148.2 H ABG Potassium ABG Chloride 112.0 H ABG Glucose 136 H Carboxyhemoglobin Sodium Potassium Chloride Carbon Dioxide BUN Creatinine Glucose POC Glucose 145 H 164 H Calcium Phosphorus Magnesium AST ALT Total Creatine Kinase CK-MB (CK-2) Troponin T Total Protein Albumin Triglycerides Cholesterol LDL Cholesterol Direct HDL Cholesterol Arterial Blood Glucose 136 H Arterial Blood Ionized Calcium Urine Creatinine Urine Total Protein 04/29/21 04/29/21 04/29/21 05:35 05:55 11:29 RBC Hgb Hct RDW Lymph % (Auto) [place] % (Auto) Lymph # (Auto) Seg Neutrophils % Seg Neuts % (Manual) Lymphocytes % (Manual) Monocytes % (Manual) Lymphocytes # (Manual) D-Dimer Heparin Anti-Xa Level ABG pH POC ABG pCO2 POC ABG pO2 ABG pO2 ABG Hemoglobin ABG Oxyhemoglobin ABG Sodium ABG Potassium ABG Chloride ABG Glucose Carboxyhemoglobin Sodium 149 H Potassium Chloride 110.9 H Carbon Dioxide BUN 34 H Creatinine Glucose 136 H POC Glucose 128 H 206 H Calcium Phosphorus Magnesium AST ALT Total Creatine Kinase CK-MB (CK-2) Troponin T Total Protein Albumin Triglycerides Cholesterol LDL Cholesterol Direct HDL Cholesterol Arterial Blood Glucose Arterial Blood Ionized Calcium Urine Creatinine Urine Total Protein 04/29/21 04/29/21 04/30/21 18:04 23:42 00:55 RBC Hgb Hct RDW Lymph % (Auto) [place] % (Auto) Lymph # (Auto) Seg Neutrophils % Seg Neuts % (Manual) Lymphocytes % (Manual) Monocytes % (Manual) Lymphocytes # (Manual) D-Dimer Heparin Anti-Xa Level ABG pH POC ABG pCO2 POC ABG pO2 ABG pO2 ABG Hemoglobin ABG Oxyhemoglobin ABG Sodium ABG Potassium ABG Chloride ABG Glucose Carboxyhemoglobin Sodium Potassium 5.1 H D Chloride Carbon Dioxide BUN Creatinine Glucose POC Glucose 146 H 146 H Calcium Phosphorus Magnesium AST ALT Total Creatine Kinase CK-MB (CK-2) Troponin T Total Protein Albumin Triglycerides Cholesterol LDL Cholesterol Direct HDL Cholesterol Arterial Blood Glucose Arterial Blood Ionized Calcium Urine Creatinine Urine Total Protein 04/30/21 04/30/21 04/30/21 05:00 05:34 07:40 RBC Hgb Hct RDW Lymph % (Auto) [place] % (Auto) Lymph # (Auto) Seg Neutrophils % Seg Neuts % (Manual) Lymphocytes % (Manual) Monocytes % (Manual) Lymphocytes # (Manual) D-Dimer Heparin Anti-Xa Level ABG pH POC ABG pCO2 55.6 H POC ABG pO2 62.4 L ABG pO2 ABG Hemoglobin ABG Oxyhemoglobin 90.1 L ABG Sodium 146.8 H ABG Potassium ABG Chloride 109.0 H ABG Glucose 124 H Carboxyhemoglobin Sodium 149 H Potassium Chloride 109.5 H Carbon Dioxide 35 H BUN 33 H Creatinine Glucose 126 H POC Glucose 122 H Calcium Phosphorus Magnesium 2.60 H AST ALT Total Creatine Kinase CK-MB (CK-2) Troponin T Total Protein 5.8 L Albumin 2.2 L Triglycerides 332 H Cholesterol LDL Cholesterol Direct HDL Cholesterol Arterial Blood Glucose 124 H Arterial Blood Ionized Calcium Urine Creatinine Urine Total Protein 04/30/21 07:40 RBC Hgb Hct RDW 16.3 H Lymph % (Auto) [place] % (Auto) Lymph # (Auto) Seg Neutrophils % 88.4 H Seg Neuts % (Manual) Lymphocytes % (Manual) Monocytes % (Manual) Lymphocytes # (Manual) D-Dimer Heparin Anti-Xa Level ABG pH POC ABG pCO2 POC ABG pO2 ABG pO2 ABG Hemoglobin ABG Oxyhemoglobin ABG Sodium ABG Potassium ABG Chloride ABG Glucose Carboxyhemoglobin Sodium Potassium Chloride Carbon Dioxide BUN Creatinine Glucose POC Glucose Calcium Phosphorus Magnesium AST ALT Total Creatine Kinase CK-MB (CK-2) Troponin T Total Protein Albumin Triglycerides Cholesterol LDL Cholesterol Direct HDL Cholesterol Arterial Blood Glucose Arterial Blood Ionized Calcium Urine Creatinine Urine Total Protein
[2021-04-30] MEDS ORDERED: LORazepam 2 MG/ML VIAL IV PRN (10:24)
[2021-04-30] MEDS: fentaNYL DRIP Premix 2,000 MCG/100 ML BAG IV SCH ×2 (10:30→17:55)
--- NOTE | 2021-04-30 11:18 | Event Note ---
Date: 04/30/21 Called daughter but no response. Left message and asked her to call. Will attempt to call again either later today or tomorrow.
[2021-04-30] MEDS: LORazepam 100 MG in SODIUM CHLORIDE 0.9% 50 ML, EMPTY BAG 0 ML IV SCH (11:26)
[2021-04-30] MEDS: QUEtiapine 25 MG TAB PO SCH ×2 (11:39→21:01)
[2021-04-30 12:58] LABS: Band Neutrophils # (Manual) 0.5 K/mm3; Myelocytes # (Manual) 0.3 K/mm3; Total Cells Counted 100
[2021-04-30 12:59] LABS: Platelet Estimate Consistent w Auto; RBC Morphology Normal
[2021-04-30] MEDS ORDERED: FUROSEMIDE 40 MG/4 ML INJ IV ONE (17:09)
[2021-04-30] MEDS: SENNOSIDES/DOCUSATE SODIUM 8.6/50 MG TAB FEEDTUBE SCH (21:01)
[2021-05-01] MEDS: methylPREDNISolone Sod Succinate 40 MG/1 ML INJ IV SCH ×4 (00:15→17:56)
[2021-05-01] MEDS: fentaNYL DRIP Premix 2,000 MCG/100 ML BAG IV SCH ×2 (00:20→06:09)
[2021-05-01] MEDS: ENOXAPARIN 80 MG/0.8 ML INJ SUB-Q SCH ×2 (02:15→17:58)
[2021-05-01] MEDS: FREE WATER PO SCH ×6 (03:43→22:06)
--- NOTE | 2021-05-01 04:43 | XRay Report ---
CHEST 1 VIEW 05/01/2021 3:30 AM INDICATION / CLINICAL INFORMATION: Shortness of breath, hypoxia. COMPARISON: One view of the chest 04/24/2021 FINDINGS: SUPPORT DEVICES: Interval placement of a left arm PICC that terminates over the cavoatrial junction. Unchanged ET tube. The most distal visualized portion of an NG tube projects over the gastric fundus. HEART / MEDIASTINUM: No significant abnormality. LUNGS / PLEURA: Generalized bilateral airspace opacities are again noted with improvement since the l ast study. No significant pleural effusion. No pneumothorax. ADDITIONAL FINDINGS: No significant additional findings. IMPRESSION: Improved aeration of the lungs with additional findings as above. Signer Name: Kash Elmore MD Signed: 05/01/2021 4:38 AM Workstation Name: [id number]
[2021-05-01 05:31] LABS: Hematocrit 39.8 % (30.3-42.9); Hemoglobin 12.9 gm/dl (10.1-14.3); Mean Corpuscular HGB Conc 32 % (30-34); Mean Corpuscular Volume 96 fl (79-97); Platelet Count 253 K/mm3 (140-440); Red Blood Count 4.14 M/mm3 (3.65-5.03); Red Cell Distribution Width 16.7 % (13.2-15.2)
[2021-05-01 05:53] LABS: BUN/Creatinine Ratio 39; Blood Urea Nitrogen 39 mg/dL (7-17); Calcium 8.9 mg/dL (8.4-10.2); Hemolysis Index 7
[2021-05-01] MEDS: BUDESONIDE 0.5 MG/2 ML NEBU IH SCH ×2 (08:42→19:39)
[2021-05-01] MEDS: ARFORMOTEROL 15 MCG/2 ML NEBU IH SCH ×2 (08:42→19:39)
[2021-05-01] MEDS ORDERED: FUROSEMIDE 40 MG/4 ML INJ IV STA (10:01)
--- NOTE | 2021-05-01 10:11 | Electrocardiograph Report ---
[facility] Test Date: 2021-04-30 Test Time: 10:57:22 Pat Name: TYSHAWN DARBY Department: Room: A261 1 Gender: F [employer] Tester: NIKITA : 1955 Requested By: IAIN JOVEL Order Number: [id number] Reading MD: Dell Moralez Measurements Intervals [place] Rate: 88 P: 37 OK: 93 QRS: 44 QRSD: 81 T: 55 QT: 349 QTc: 423 Interpretive Statements Sinus rhythm Borderline ST elevation, anterior leads Compared to ECG 04/21/2021 14:33:58 ST (T wave) deviation now present Sinus tachycardia no longer present Atrial abnormality no longer present Electronically Signed On 05-01-2021 10:11:03 EDT by Dell Moralez
--- NOTE | 2021-05-01 10:20 | Progress Note ---
Assessment and Plan Assessment and plan: Per ER... 04-21 The patient is a 66-year-old female present with a chief complaint of altered mental status. Per EMS the patient has a history of previous CVA with left- sided weakness. Family reported that the patient developed increased left-sided weakness 3 days ago. The patient was taken to the emergency department but refused to be seen so family brought the patient back home. The following day the patient "stopped speaking" and family eventually brought the patient into the ED today as there was no improvement. Patient opens her eyes to sternal rub and answers some questions but appears confused. First oxygen saturation in ER was 69%. Pt intubated for airway protection and hypoxia believed to be due to unprotected airway post seizure. Pt was ER hold and arrived to ICU overnight PMH HTN HLD CVA 2 Y AGO with left sided residual weakness NOK daughter (see previous encounter note 07/2019) 04-30 NO ACUTE EVENTS OVERNIGHT; diuresis 05-01 no acute events overnight; diuresis NEURO hx CVA with l sided weakness; new onset sz; metabolic encephalopathy new onset sz on keppra UDS neg on admit neuro following- Dr Watson reconsulted today for follow up recommendations PERRL; no commands CT head on admit- IMPRESSION: Encephalomalacia in the right temporal lobe, frontal lobe; no acute/subacute parenchymal lesions MRI Encephalomalacia in the right cerebral hemisphere - see report daily SAT limited by hypoxia RAAS goal neg 4 sedated on propofol and ativan on seroquel BID; following QT case management following CV: hx htn on norvasc at home per EMR asa added p discussion with pulmonary critical care continue statin echo 04/22 see report SR-ST no pressors PRN hydral normal echocardiogram RESP acute resp failure with PE on CTA; refractory hypoxia requiring MV intubated in ER; remains ventilated ACPRVC [id number] see iview for titration CT noted - a/c lung disease evident with LPA PE's noted US BLE neg trending ABG, xray of chest and lactate continue nebs continue solumedrol will likely need trach- today vent day 9 1445 PEEP TO 16 - ABG in [address] Arrington sat goal 88 pH goal 7.2 GI -diarrhea- improved TF at goal nutrition following PPI bowel reg -LIZBETH likely pre-renal in nature- improving; hyperna - improving corral strict I/O trend and replace electrolytes as needed trend BUN/CR/CK nephrology following lasix 40 mg IV x 1 today (given the same yesterday and pt had good response; blood pressure tolerated it) FWF for Na - trend Na AM labs ordered HEME- Pulmonary emboli VTE on lovenox BID trending coags/Xa trend CBC no bleeding on exam LE dopplers neg for DVT ID- nap covid neg follow cultures 04/21 sputum culture afebrile no antibiotics at this time are indicated continue to trend temp and WBC curve continuing methylpred ENDO stress hyperglycemia; obese blood glucose monitoring avoid hypoglycemia The high probability of a clinically significant, sudden or life threatening deterioration of the [respiratory] system(s) required my full and direct attention, intervention and personal management. The aggregate critical care time was [60] minutes. This time is in addition to time spent performing reported procedures but includes the following: [x] Data Review and interpretation [x] Patient assessment and monitoring of vital signs [x] Documentation [x] Medication orders and management Disposition Plan: tbd Total Time Spent with Patient (Minutes): 60 History Interval history: no acute overnight events Hospitalist Physical - Constitutional Vitals: Temp Pulse Resp BP Pulse Ox 98.3 F 119 H 22 107/56 96 05/01/21 03:38 05/01/21 09:30 05/01/21 09:30 05/01/21 09:30 05/01/21 09:30 General appearance: Present: no acute distress, well-nourished, other (Sedated on vent) - EENT Eyes: Present: PERRL ENT: clear oral mucosa - Neck Neck: Present: supple - Respiratory Respiratory effort: normal - Cardiovascular Rhythm: regular Heart Sounds: Present: S1 & S2 - Extremities Extremities: no ischemia Peripheral Pulses: within normal limits - Abdominal General gastrointestinal: soft - Integumentary Integumentary: Present: clear, warm, dry - Psychiatric Psychiatric: other - Neurologic Neurologic: other - Allied Health Allied health notes reviewed: nursing, social work, case management HEART Score - HEART Score Age: 45-65 Risk factors: 1-2 risk factors Troponin: Troponin T 0.055 ng/mL (0.00-0.029) H 04/21/21 16:32 - Critical Actions Critical Actions: 0-3 pts:0.9-1.7%risk of adverse cardiac event.Candidate for discharge Results - Labs CBC & Chem 7: 05/01/21 05:08 05/01/21 05:08 Labs: Laboratory Last Values WBC 10.5 K/mm3 (4.5-11.0) 05/01/21 05:08 RBC 4.14 M/mm3 (3.65-5.03) 05/01/21 05:08 Hgb 12.9 gm/dl (10.1-14.3) 05/01/21 05:08 Hct 39.8 % (30.3-42.9) 05/01/21 05:08 MCV 96 fl (79-97) 05/01/21 05:08 MCH 31 pg (28-32) 05/01/21 05:08 MCHC 32 % (30-34) 05/01/21 05:08 RDW 16.7 % (13.2-15.2) H 05/01/21 05:08 Plt Count 253 K/mm3 (140-440) 05/01/21 05:08 Lymph % (Auto) 12.0 % (13.4-35.0) L 04/22/21 05:29 [place] % (Auto) 2.8 % (0.0-7.3) 04/30/21 07:40 Eos % (Auto) 0.9 % (0.0-4.3) 04/30/21 07:40 Baso % (Auto) 0.7 % (0.0-1.8) 04/22/21 05:29 Lymph # (Auto) 1.1 K/mm3 (1.2-5.4) L 04/22/21 05:29 [place] # (Auto) 0.2 K/mm3 (0.0-0.8) 04/30/21 07:40 Eos # (Auto) 0.1 K/mm3 (0.0-0.4) 04/30/21 07:40 Baso # (Auto) 0.0 K/mm3 (0.0-0.1) 04/30/21 07:40 Add Manual Diff Complete 04/30/21 07:40 Total Counted 100 04/30/21 07:40 Seg Neutrophils % 88.4 % (40.0-70.0) H 04/30/21 07:40 Seg Neuts % (Manual) 82.0 % (40.0-70.0) H 04/30/21 07:40 Band Neutrophils % 6.0 % 04/30/21 07:40 Lymphocytes % (Manual) 5.0 % (13.4-35.0) L 04/30/21 07:40 Monocytes % (Manual) 8.0 % (0.0-7.3) H 04/21/21 16:32 Eosinophils % (Manual) 1.0 % (0.0-4.3) 04/30/21 07:40 Metamyelocytes % 3.0 % 04/30/21 07:40 Myelocytes % 3.0 % 04/30/21 07:40 Nucleated RBC % Not Reportable 04/30/21 07:40 Seg Neutrophils # 7.5 K/mm3 (1.8-7.7) 04/30/21 07:40 Seg Neutrophils # Man 7.2 K/mm3 (1.8-7.7) 04/30/21 07:40 Band Neutrophils # 0.5 K/mm3 04/30/21 07:40 Lymphocytes # (Manual) 0.4 K/mm3 (1.2-5.4) L 04/30/21 07:40 Abs React Lymphs (Man) 0.0 K/mm3 04/30/21 07:40 Monocytes # (Manual) 0.0 K/mm3 (0.0-0.8) 04/30/21 07:40 Eosinophils # (Manual) 0.1 K/mm3 (0.0-0.4) 04/30/21 07:40 Basophils # (Manual) 0.0 K/mm3 (0.0-0.1) 04/30/21 07:40 Metamyelocytes # 0.3 K/mm3 04/30/21 07:40 Myelocytes # 0.3 K/mm3 04/30/21 07:40 Promyelocytes # 0.0 K/mm3 04/30/21 07:40 Blast Cells # 0.0 K/mm3 04/30/21 07:40 WBC Morphology Not Reportable 04/30/21 07:40 Hypersegmented Neuts Not Reportable 04/30/21 07:40 Hyposegmented Neuts Not Reportable 04/30/21 07:40 Hypogranular Neuts Not Reportable 04/30/21 07:40 Smudge Cells Not Reportable 04/30/21 07:40 Toxic Granulation Not Reportable 04/30/21 07:40 Toxic Vacuolation Not Reportable 04/30/21 07:40 Dohle Bodies Not Reportable 04/30/21 07:40 Pelger-Huet Anomaly Not Reportable 04/30/21 07:40 Brenda Rods Not Reportable 04/30/21 07:40 Platelet Estimate Consistent w auto 04/30/21 07:40 Clumped Platelets Not Reportable 04/30/21 07:40 Plt Clumps, EDTA Not Reportable 04/30/21 07:40 Large Platelets Not Reportable 04/30/21 07:40 Giant Platelets Not Reportable 04/30/21 07:40 Platelet Satelliting Not Reportable 04/30/21 07:40 Plt Morphology Comment Not Reportable 04/30/21 07:40 RBC Morphology Normal 04/30/21 07:40 Dimorphic RBCs Not Reportable 04/30/21 07:40 Polychromasia Not Reportable 04/30/21 07:40 Hypochromasia Not Reportable 04/30/21 07:40 Poikilocytosis Not Reportable 04/30/21 07:40 Anisocytosis Not Reportable 04/30/21 07:40 Microcytosis Not Reportable 04/30/21 07:40 Macrocytosis Not Reportable 04/30/21 07:40 Spherocytes Not Reportable 04/30/21 07:40 Pappenheimer Bodies Not Reportable 04/30/21 07:40 Sickle Cells Not Reportable 04/30/21 07:40 Target Cells Not Reportable 04/30/21 07:40 Tear Drop Cells Not Reportable 04/30/21 07:40 Ovalocytes Not Reportable 04/30/21 07:40 Helmet Cells Not Reportable 04/30/21 07:40 [place] Bodies Not Reportable 04/30/21 07:40 [place] Rings Not Reportable 04/30/21 07:40 [place] Cells Not Reportable 04/30/21 07:40 Bite Cells Not Reportable 04/30/21 07:40 Crenated Cell Not Reportable 04/30/21 07:40 Elliptocytes Not Reportable 04/30/21 07:40 Acanthocytes (Spur) Not Reportable 04/30/21 07:40 Rouleaux Not Reportable 04/30/21 07:40 Hemoglobin C Crystals Not Reportable 04/30/21 07:40 Schistocytes Not Reportable 04/30/21 07:40 Malaria parasites Not Reportable 04/30/21 07:40 Uli Bodies Not Reportable 04/30/21 07:40 Hem Pathologist Commnt No 04/30/21 07:40 PT 13.2 Sec. (12.2-14.9) 04/22/21 00:32 INR 0.95 (0.87-1.13) 04/22/21 00:32 APTT 29.2 Sec. (24.2-36.6) 04/22/21 00:32 D-Dimer 1522.26 ng/mlDDU (0-234) H 04/21/21 16:30 Heparin Anti-Xa Level 0.84 U.I./ml (0.3-0.7) H 04/24/21 10:14 ABG pH 7.275 (7.320-7.450) L 05/01/21 03:33 POC ABG pCO2 85.0 mmHg (32.0-48.0) H 05/01/21 03:33 ABG pCO2 46.0 mm Hg 04/22/21 17:30 POC ABG pO2 97.6 mmHg (83-108) 05/01/21 03:33 ABG pO2 99.6 mm Hg (80.0-90.0) H 04/22/21 17:30 POC ABG HCO3 38.6 05/01/21 03:33 ABG HCO3 24.4 mmol/L (20.0-26.0) 04/22/21 17:30 ABG O2 Saturation 96.6 (0-100) 05/01/21 03:33 ABG O2 Content 19.9 (0.0-44) 04/22/21 17:30 POC ABG Base Excess 8.7 05/01/21 03:33 ABG Base Excess -1.6 mmol/L (-2.0-3.0) 04/22/21 17:30 ABG Hemoglobin 12.5 (12.0-17.5) 05/01/21 03:33 ABG Oxyhemoglobin 94.9 (94-98) 05/01/21 03:33 ABG Carboxyhemoglobin 0.9 % (0.0-5.0) 04/22/21 17:30 ABG Methemoglobin 0.3 (0.0-1.5) 05/01/21 03:33 ABG Sodium 141.9 mmol/L (136.0-145.0) 05/01/21 03:33 ABG Potassium 5.0 mmol/L (3.40-4.50) H 05/01/21 03:33 ABG Chloride 105.0 mmol/L (98-107) 05/01/21 03:33 ABG Glucose 150 mg/dL (65-95) H 05/01/21 03:33 Oxyhemoglobin 95.9 % (95.0-99.0) 04/22/21 17:30 Carboxyhemoglobin 1.5 (0.5-1.5) 05/01/21 03:33 FiO2 100 % 04/22/21 17:30 FiO2 % 95.0 05/01/21 03:33 Sodium 145 mmol/L (137-145) 05/01/21 05:08 Potassium 5.3 mmol/L (3.6-5.0) H D 05/01/21 05:08 Chloride 102.5 mmol/L (98-107) 05/01/21 05:08 Carbon Dioxide 36 mmol/L (22-30) H 05/01/21 05:08 Anion Gap 12 mmol/L 05/01/21 05:08 BUN 39 mg/dL (7-17) H 05/01/21 05:08 Creatinine 1.0 mg/dL (0.6-1.2) 05/01/21 05:08 Estimated GFR > 60 ml/min 05/01/21 05:08 BUN/Creatinine Ratio 39 % 05/01/21 05:08 Glucose 150 mg/dL (65-100) H 05/01/21 05:08 POC Glucose 138 mg/dL (70-105) H 05/01/21 04:55 Calcium 8.9 mg/dL (8.4-10.2) 05/01/21 05:08 Phosphorus 2.90 mg/dL (2.5-4.5) D 04/25/21 07:42 Magnesium 2.60 mg/dL (1.7-2.3) H 04/30/21 07:40 Total Bilirubin 0.30 mg/dL (0.1-1.2) 04/30/21 07:40 AST 36 units/L (5-40) 04/30/21 07:40 ALT 27 units/L (7-56) 04/30/21 07:40 Alkaline Phosphatase 128 units/L (35-129) 04/30/21 07:40 Ammonia 58.0 umol/L (25-60) 04/28/21 04:45 Total Creatine Kinase 396 units/L (30-135) H 04/24/21 10:00 CK-MB (CK-2) 22.4 ng/mL (0.0-4.0) H 04/21/21 16:32 CK-MB (CK-2) Rel Index 0.7 (0-4) 04/21/21 16:32 Troponin T 0.055 ng/mL (0.00-0.029) H 04/21/21 16:32 Total Protein 5.8 g/dL (6.3-8.2) L 04/30/21 07:40 Albumin 2.2 g/dL (3.9-5) L 04/30/21 07:40 Albumin/Globulin Ratio 0.6 % 04/30/21 07:40 Triglycerides 304 mg/dL (2-149) H 04/30/21 17:00 Cholesterol 220 mg/dL (50-199) H 04/21/21 16:32 LDL Cholesterol Direct 142 mg/dL (50-130) H 04/21/21 16:32 HDL Cholesterol 36 mg/dL (40-59) L 04/21/21 16:32 Cholesterol/HDL Ratio 6.11 % 04/21/21 16:32 TSH 0.876 mlU/mL (0.270-4.200) 04/21/21 16:32 Free T4 1.05 ng/dL (0.76-1.46) 04/21/21 16:32 Arterial Blood Glucose 150 mg/dL (65-95) H 05/01/21 03:33 Arterial Blood Ionized Calcium 4.8 mg/dL (4.6-5.3) 05/01/21 03:33 Urine Color Yellow (Yellow) 04/21/21 Unknown Urine Turbidity Clear (Clear) 04/21/21 Unknown Urine pH 5.0 (5.0-7.0) 04/21/21 Unknown Ur Specific [place] 1.014 (1.003-1.030) 04/21/21 Unknown Urine Protein 100 mg/dl mg/dL (Negative) 04/21/21 Unknown Urine Glucose (UA) Neg mg/dL (Negative) 04/21/21 Unknown Urine Ketones Tr mg/dL (Negative) 04/21/21 Unknown Urine Blood Lg (Negative) 04/21/21 Unknown Urine Nitrite Neg (Negative) 04/21/21 Unknown Urine Bilirubin Neg (Negative) 04/21/21 Unknown Urine Urobilinogen 2.0 mg/dL (<2.0) 04/21/21 Unknown Ur Leukocyte Esterase Neg (Negative) 04/21/21 Unknown Urine WBC (Auto) 5.0 /HPF (0.0-6.0) 04/21/21 Unknown Urine RBC (Auto) 1.0 /HPF (0.0-6.0) 04/21/21 Unknown U Epithel Cells (Auto) 1.0 /HPF (0-13.0) 04/21/21 Unknown Urine Mucus Few /HPF 04/21/21 Unknown Urine Creatinine 138.9 mg/dL (0.1-20.0) H 04/22/21 13:03 Urine Total Protein 86 mg/dL (5-11.8) H 04/22/21 13:03 Urine Opiates Screen Negative 04/21/21 Unknown Urine Methadone Screen Negative 04/21/21 Unknown Ur Barbiturates Screen Negative 04/21/21 Unknown Ur Phencyclidine Scrn Negative 04/21/21 Unknown Ur Amphetamines Screen Negative 04/21/21 Unknown U Benzodiazepines Scrn Negative 04/21/21 Unknown Urine Cocaine Screen Negative 04/21/21 Unknown U Marijuana (THC) Screen Negative 04/21/21 Unknown Drugs of Abuse Note Disclamer 04/21/21 Unknown Plasma/Serum Alcohol < 0.01 % (0-0.07) 04/21/21 16:32 Coronavirus (PCR) Negative (Negative) 04/23/21 Unknown [place]/IV: Voiding Method External Female Catheter Active Medications - Current Medications Current Medications: Generic Name Dose Route Start Last Admin Trade Name Freq PRN Reason Stop Dose Admin Acetaminophen 650 mg 04/21/21 21:11 04/28/21 16:30 Acetaminophen 325 Mg Tab PO 650 mg Q4H PRN Administration Pain MILD(1-3)/Fever >100.5/DICKINSON Lipase/Protease/Amylase 1 each 04/22/21 10:51 Lipase 10,500/Protease 25,000/Amylase 43,750 (Units) Dr Ryan FEEDTUBE PRN PRN For Clogged Feeding Tube Arformoterol Tartrate 15 mcg 04/29/21 20:00 05/01/21 08:42 Arformoterol 15 Mcg/2 Ml Nebu IH 15 mcg Q12HRT MINOR Administration Atorvastatin Calcium 40 mg 05/01/21 22:00 Atorvastatin 40 Mg Tab PO QHS MINOR Budesonide 0.5 mg 04/29/21 20:00 05/01/21 08:42 Budesonide 0.5 Mg/2 Ml Nebu IH 0.5 mg Q12HRT MINOR Administration Enoxaparin Sodium 80 mg 04/29/21 14:00 05/01/21 02:15 Enoxaparin 80 Mg/0.8 Ml Inj SUB-Q 80 mg Q12H MINOR Administration Famotidine 20 mg 04/24/21 10:00 04/30/21 21:01 Famotidine 20 Mg Tab PO 20 mg BID MINOR Administration Hydralazine HCl 10 mg 04/29/21 12:23 Hydralazine 20 Mg/1 Ml Inj IV Q4H PRN Hypertension Hydrophilic Ointment 1 applic 04/21/21 15:46 Lip Therapy Vaseline TP Q2HR PRN Dry Lips Propofol 1,000 mg in 100 mls @ 2.19 mls/hr 04/26/21 11:00 05/01/21 00:55 Diprivan 10 Mg/Ml IV 10 mcg/kg/min TITR MINOR 4.38 mls/hr Administration Protocol 5 MCG/KG/MIN Lorazepam 100 mg/ Sodium 100 mls @ 1 mls/hr 04/30/21 11:00 04/30/21 16:30 Chloride/ Miscellaneous IV 2 mg/hr Information TITR MINOR 2 mls/hr Titration Protocol 1 MG/HR Levetiracetam 750 mg 04/25/21 10:00 04/30/21 21:01 Levetiracetam 500 Mg/5 Ml Oral Liqd PO 750 mg BID MINOR Administration Methylprednisolone Sodium Succinate 60 mg 04/28/21 06:00 05/01/21 05:36 Methylprednisolone Sod Succinate 40 Mg/1 Ml Inj IV 60 mg Q6H MINOR Administration Multi-Ingred Cream/Lotion/Oil/Oint 1 applic 04/21/21 15:46 Mineral Oil/Petrolatum, White Ophth Oint 3.5 Gm OU Q4HR PRN Dry Eye(s) Quetiapine Fumarate 25 mg 04/30/21 11:00 04/30/21 21:01 Quetiapine 25 Mg Tab PO 25 mg BID MINOR Administration Senna/Docusate Sodium 1 tab 04/26/21 22:00 04/30/21 21:01 Sennosides/Docusate Sodium 8.6/50 Mg Tab FEEDTUBE 1 tab QHS MINOR Administration Simple Syrup 15 ml 04/22/21 10:51 Simple Syrup 15 Ml FEEDTUBE PRN PRN Hypoglycemia Simple Syrup 30 ml 04/22/21 10:51 Simple Syrup 15 Ml FEEDTUBE PRN PRN Hypoglycemia Sodium Bicarbonate 325 mg 04/22/21 10:51 Sodium Bicarbonate 325 Mg Tab FEEDTUBE PRN PRN For Clogged Feeding Tube Sodium Chloride 10 ml 04/21/21 22:00 04/30/21 21:02 Sodium Chloride 0.9% 10 Ml Flush Syringe IV 10 ml BID MINOR Administration Sodium Chloride 10 ml 04/21/21 21:11 04/27/21 02:54 Sodium Chloride 0.9% 10 Ml Flush Syringe IV 10 ml PRN PRN Administration LINE FLUSH Nutrition/Malnutrition Assess - Dietary Evaluation Nutrition/Malnutrition Findings: Nutrition Notes Start: 04/22/21 10: 45 Freq: Status: Active Protocol: Document 04/24/21 14:58 MAYRA (Rec: 04/24/21 15:04 MAYRA [id number]) Nutrition Notes Initial or Follow up Reassessment Current Diagnosis Acute Kidney Injury, Hypertension,Stroke, Hyperlipidemia Other Pertinent Diagnosis New onset seizures, AMS, pulmonary embolism Current Diet TF - Nepro 35ml/hr Labs/Tests reviewed Pertinent Medications reviewed Height 5 ft 9 in Weight 79.7 kg [place] Body Weight (kg) 65.90 BMI 25.9 Weight change and time frame wt change noted Weight Status Appropriate Subjective/Other Information Per RN, pt tolerating TF at goal rate. Pt remains on vent support. Percent of energy/protein needs met: 89% energy 71% pro Burn Absent Trauma Absent #1 Nutrition Diagnosis Inadequate oral intake Diagnosis Progress(for reassessment Continues documentation) Is patient on ventilator? Yes Is Patient Ambulatory and/or Out of Bed No REE-([place]-St. Jeor-confined to bed) 1529.600 Calculation Used for Recommendations [place]-St Jeor Additional Notes Pro needs 1.2-2g/k-159g/ day Fluid needs 1ml/kcal Nutrition Intervention Nutrition Support: Continue Nepro at 35ml/hr with 150ml water flush q4h. Kcal 1,512 Protein (gm) 68 Carbohydrates (gm) 135 Fat (gm) 81 Fluid (mL) 611 Fiber (gm) 11 Goal #1 TF tolerance Goal #2 TF to meet at least 75% energy and pro needs Follow-Up By: 05/01/21 Additional Comments F/U: stable TF, vent status, wt - Attestation Statement I have reviewed and agreed w/ Malnutrition eval & tx plan: Yes
[2021-05-01] MEDS: levETIRAcetam 500 MG/5 ML ORAL LIQD PO SCH ×2 (11:18→21:36)
[2021-05-01] MEDS: QUEtiapine 25 MG TAB PO SCH ×2 (11:19→21:36)
[2021-05-01] MEDS: FAMOTIDINE 20 MG TAB PO SCH ×2 (11:19→21:36)
--- NOTE | 2021-05-01 11:26 | Progress Note ---
Assessment and Plan 66 y/o female, intubated for airway protection, found to have severe ILD and no has refractory hypoxemia. 05/01/21: Continue Ativan and Diprovan drip. Maintain low tidal volume and high PEEP and as long as pH is greater than 7.2. continue diuresis with IV lasix. Guarded prognosis. Will call daughter back today. Continue High dose IV steroids for now. 04/30/21: Will add Ativan drip and attempt to wean Precedex to off. Once adequ ate sedation achieved and BP stable, will give an additional dose of IV lasix today. Increased Free Water to 250q4. Ok with current Triglyceride level but will need to repeat. Prognosis remains guarded. Will call daughter to update her. 04/29/21: Continue low tidal volumes and high PEEPs. Lasix 40mg IV x1 today. Continue high dose steroids. Will start pulmicort and brovana therapy. Progno sis remains very very guarded. Follow up Triglyceride episode tomorrow. 04/26/21: Dropped tidal volume to 300. Keep PEEP at 16. Repeat ABG at 1230. Now that BP is better will give lasix 40 IV x1. Please assess again tomorrow and see if she would benefit from this. Pulse dose steroids through tomorrow and then solumedrol 60q6 starting on Thursday. Spoke with daughter over the phone who confirmed that mother was a smoker, heavy for 30+ years. Will start on BID pulmicort and brovana therapy. Overall prognosis discussed with daughter regarding possible need for trach and vent dependence. She asked about lung tx which I explained is not an option at this time. She seemed to express unde rstanding but was mainly in shock as she had no idea her mother had ILD and per daughter, mother never saw a lung physician. Guarded to poor prognosis. My partner rounding over the weekend, I am back on Thursday. 04/25/21: Picc line today. Increase PEEP to 16. Dropped TV back to 375. pH of 7.2 and greater is acceptable. Will also pulse dose for the next 72 hours and then transition to q6 dosing on Thursday. Will discuss current clinical state with daughter. Serial ABG's today to make sure pH stays where it needs to be and hopeful improvement in oxygenation. Guarded prognosis. 04/24/21: Will drop TV to 375 and Increase PEEP to 14. Will repeat ABG in one hour. If no improvements, may need to consider IV steroids for 48-72 hours. Exact etiology of chronic lung disease is not known. Would prefer not to give sedation vacation given high levels of oxygen required as agitation could make things worse. Right now, unable to determine current neuro state. Lungs are very very sick and even though this is a chronic issue, now with her drive diminished from the ventilator, most likely will be a difficult wean. Will discuss with family soon what the next steps could potentially be but would need to assess mental state first. Guarded prognosis. 1. Increase PEEP and repeat ABG 2. May need to consider IV steroids 3. Follow up neuro recs 4. Guarded prognosis. cCT 31 minutes. Subjective Date of service: 05/01/21 Principal diagnosis: Acute kidney injury, rhabdomyolysis Interval history: More adequately sedated now. Doing better oxygenation mcclure. pao2 in the 90's today. Objective Vital Signs - 12hr 04/30/21 04/30/21 04/30/21 23:31 23:45 23:58 Temperature 98.4 F Pulse Rate 115 H 116 H Pulse Rate [ Bilateral] Pulse Rate [ From Monitor] Respiratory 18 18 Rate Respiratory Rate [Bilateral ] Blood Pressure 132/72 132/72 O2 Sat by Pulse 97 98 Oximetry 05/01/21 05/01/21 05/01/21 00:00 00:15 00:31 Temperature Pulse Rate 117 H 117 H 115 H Pulse Rate [ Bilateral] Pulse Rate [ 117 H From Monitor] Respiratory 17 13 16 Rate Respiratory Rate [Bilateral ] Blood Pressure 118/57 118/57 118/57 O2 Sat by Pulse 96 97 97 Oximetry 05/01/21 05/01/21 05/01/21 00:33 00:45 01:00 Temperature Pulse Rate 125 H 112 H 109 H Pulse Rate [ Bilateral] Pulse Rate [ From Monitor] Respiratory 18 17 Rate Respiratory Rate [Bilateral ] Blood Pressure 118/57 118/57 83/59 O2 Sat by Pulse 98 97 95 Oximetry 05/01/21 05/01/21 05/01/21 01:15 01:31 01:46 Temperature Pulse Rate 108 H 107 H 109 H Pulse Rate [ Bilateral] Pulse Rate [ From Monitor] Respiratory 15 18 16 Rate Respiratory Rate [Bilateral ] Blood Pressure 83/59 106/61 106/61 O2 Sat by Pulse 97 97 97 Oximetry 05/01/21 05/01/21 05/01/21 02:00 02:16 02:30 Temperature Pulse Rate 108 H 101 H 106 H Pulse Rate [ Bilateral] Pulse Rate [ From Monitor] Respiratory 14 16 14 Rate Respiratory Rate [Bilateral ] Blood Pressure 93/52 93/52 93/52 O2 Sat by Pulse 95 97 97 Oximetry 05/01/21 05/01/21 05/01/21 02:46 03:00 03:16 Temperature Pulse Rate 108 H 110 H 110 H Pulse Rate [ Bilateral] Pulse Rate [ From Monitor] Respiratory 15 16 14 Rate Respiratory Rate [Bilateral ] Blood Pressure 93/52 105/57 105/57 O2 Sat by Pulse 97 95 97 Oximetry 05/01/21 05/01/21 05/01/21 03:30 03:38 03:46 Temperature 98.3 F Pulse Rate 110 H 111 H Pulse Rate [ Bilateral] Pulse Rate [ From Monitor] Respiratory 15 16 Rate Respiratory Rate [Bilateral ] Blood Pressure 105/57 105/57 O2 Sat by Pulse 97 97 Oximetry 05/01/21 05/01/21 05/01/21 04:00 04:16 04:30 Temperature Pulse Rate 113 H 111 H 121 H Pulse Rate [ Bilateral] Pulse Rate [ 113 H From Monitor] Respiratory 14 22 19 Rate Respiratory Rate [Bilateral ] Blood Pressure 105/57 103/54 103/54 O2 Sat by Pulse 97 96 91 Oximetry 05/01/21 05/01/21 05/01/21 04:46 04:58 05:00 Temperature Pulse Rate 108 H 117 H 114 H Pulse Rate [ Bilateral] Pulse Rate [ From Monitor] Respiratory 28 H 20 Rate Respiratory Rate [Bilateral ] Blood Pressure 103/54 139/67 116/60 O2 Sat by Pulse 96 97 95 Oximetry 05/01/21 05/01/21 05/01/21 05:16 05:30 05:46 Temperature Pulse Rate 114 H 113 H 114 H Pulse Rate [ Bilateral] Pulse Rate [ From Monitor] Respiratory 20 17 18 Rate Respiratory Rate [Bilateral ] Blood Pressure 116/60 116/60 116/60 O2 Sat by Pulse 95 96 97 Oximetry 05/01/21 05/01/21 05/01/21 06:00 06:16 06:30 Temperature Pulse Rate 111 H 119 H 116 H Pulse Rate [ Bilateral] Pulse Rate [ From Monitor] Respiratory 19 18 21 Rate Respiratory Rate [Bilateral ] Blood Pressure 125/73 125/73 125/73 O2 Sat by Pulse 96 97 98 Oximetry 05/01/21 05/01/21 05/01/21 06:46 07:00 07:16 Temperature Pulse Rate 116 H 116 H 113 H Pulse Rate [ Bilateral] Pulse Rate [ From Monitor] Respiratory 20 19 26 H Rate Respiratory Rate [Bilateral ] Blood Pressure 125/73 116/68 116/68 O2 Sat by Pulse 97 95 97 Oximetry 05/01/21 05/01/21 05/01/21 07:30 07:46 08:00 Temperature Pulse Rate 115 H 110 H 114 H Pulse Rate [ Bilateral] Pulse Rate [ From Monitor] Respiratory 20 18 18 Rate Respiratory Rate [Bilateral ] Blood Pressure 116/68 116/68 107/56 O2 Sat by Pulse 96 97 94 Oximetry 05/01/21 05/01/21 05/01/21 08:16 08:30 08:42 Temperature Pulse Rate 112 H 115 H Pulse Rate [ 110 H Bilateral] Pulse Rate [ From Monitor] Respiratory 18 19 Rate Respiratory 20 Rate [Bilateral ] Blood Pressure 107/56 107/56 O2 Sat by Pulse 97 97 Oximetry 05/01/21 05/01/21 05/01/21 08:46 09:00 09:16 Temperature Pulse Rate 111 H 118 H 113 H Pulse Rate [ Bilateral] Pulse Rate [ From Monitor] Respiratory 19 31 H 18 Rate Respiratory Rate [Bilateral ] Blood Pressure 107/56 144/80 107/56 O2 Sat by Pulse 97 96 96 Oximetry 05/01/21 09:30 Temperature Pulse Rate 119 H Pulse Rate [ Bilateral] Pulse Rate [ From Monitor] Respiratory 22 Rate Respiratory Rate [Bilateral ] Blood Pressure 107/56 O2 Sat by Pulse 96 Oximetry Constitutional: no acute distress, other (Sedated) Ascultation: Bilateral: rales, rhonchi CBC and BMP: 05/01/21 05:08 05/01/21 05:08 ABG, PT/INR, D-dimer: ABG ABG pH 7.275 (7.320-7.450) L 05/01/21 03:33 POC ABG pCO2 85.0 mmHg (32.0-48.0) H 05/01/21 03:33 ABG pCO2 46.0 mm Hg 04/22/21 17:30 POC ABG pO2 97.6 mmHg (83-108) 05/01/21 03:33 ABG pO2 99.6 mm Hg (80.0-90.0) H 04/22/21 17:30 POC ABG HCO3 38.6 05/01/21 03:33 ABG O2 Saturation 96.6 (0-100) 05/01/21 03:33 PT/INR, D-dimer PT 13.2 Sec. (12.2-14.9) 04/22/21 00:32 INR 0.95 (0.87-1.13) 04/22/21 00:32 D-Dimer 1522.26 ng/mlDDU (0-234) H 04/21/21 16:30 Abnormal lab findings: Abnormal Labs 04/21/21 04/21/21 04/21/21 14:40 15:42 16:30 RBC Hgb Hct RDW Lymph % (Auto) [place] % (Auto) Lymph # (Auto) Seg Neutrophils % Seg Neuts % (Manual) Lymphocytes % (Manual) Monocytes % (Manual) Lymphocytes # (Manual) D-Dimer 1522.26 H Heparin Anti-Xa Level ABG pH POC ABG pCO2 POC ABG pO2 45.5 L 69.9 L ABG pO2 ABG Hemoglobin ABG Oxyhemoglobin 78.6 L 90.2 L ABG Sodium ABG Potassium ABG Chloride 111.0 H ABG Glucose 156 H 148 H Carboxyhemoglobin Sodium Potassium Chloride Carbon Dioxide BUN Creatinine Glucose POC Glucose Calcium Phosphorus Magnesium AST ALT Total Creatine Kinase CK-MB (CK-2) Troponin T Total Protein Albumin Triglycerides Cholesterol LDL Cholesterol Direct HDL Cholesterol Arterial Blood Glucose 156 H 148 H Arterial Blood Ionized Calcium 4.5 L Urine Creatinine Urine Total Protein 04/21/21 04/21/21 04/22/21 16:32 16:32 00:32 RBC 5.22 H Hgb 16.2 H 14.8 H Hct 48.6 H 44.4 H RDW 15.8 H Lymph % (Auto) [place] % (Auto) Lymph # (Auto) Seg Neutrophils % Seg Neuts % (Manual) 79.0 H Lymphocytes % (Manual) 13.0 L Monocytes % (Manual) 8.0 H Lymphocytes # (Manual) 1.1 L D-Dimer Heparin Anti-Xa Level ABG pH POC ABG pCO2 POC ABG pO2 ABG pO2 ABG Hemoglobin ABG Oxyhemoglobin ABG Sodium ABG Potassium ABG Chloride ABG Glucose Carboxyhemoglobin Sodium Potassium Chloride Carbon Dioxide 21 L BUN 24 H Creatinine 1.3 H Glucose 130 H POC Glucose Calcium Phosphorus Magnesium AST 129 H ALT 61 H Total Creatine Kinase 3055 H CK-MB (CK-2) 22.4 H Troponin T 0.055 H Total Protein Albumin 3.6 L Triglycerides 235 H Cholesterol 220 H LDL Cholesterol Direct 142 H HDL Cholesterol 36 L Arterial Blood Glucose Arterial Blood Ionized Calcium Urine Creatinine Urine Total Protein 04/22/21 04/22/21 04/22/21 03:27 05:29 05:29 RBC Hgb 15.4 H Hct 45.8 H RDW 16.0 H Lymph % (Auto) 12.0 L [place] % (Auto) 8.0 H Lymph # (Auto) 1.1 L Seg Neutrophils % 76.3 H Seg Neuts % (Manual) Lymphocytes % (Manual) Monocytes % (Manual) Lymphocytes # (Manual) D-Dimer Heparin Anti-Xa Level ABG pH POC ABG pCO2 POC ABG pO2 ABG pO2 ABG Hemoglobin ABG Oxyhemoglobin ABG Sodium ABG Potassium 4.7 H ABG Chloride 109.0 H ABG Glucose 155 H Carboxyhemoglobin 0.4 L Sodium Potassium 6.3 H* D Chloride Carbon Dioxide BUN 26 H Creatinine Glucose 134 H POC Glucose Calcium Phosphorus Magnesium AST 123 H ALT Total Creatine Kinase CK-MB (CK-2) Troponin T Total Protein Albumin 3.6 L Triglycerides Cholesterol LDL Cholesterol Direct HDL Cholesterol Arterial Blood Glucose 155 H Arterial Blood Ionized Calcium Urine Creatinine Urine Total Protein 04/22/21 04/22/21 04/22/21 13:03 13:25 17:30 RBC Hgb Hct RDW Lymph % (Auto) [place] % (Auto) Lymph # (Auto) Seg Neutrophils % Seg Neuts % (Manual) Lymphocytes % (Manual) Monocytes % (Manual) Lymphocytes # (Manual) D-Dimer Heparin Anti-Xa Level ABG pH 7.343 L POC ABG pCO2 POC ABG pO2 ABG pO2 99.6 H ABG Hemoglobin ABG Oxyhemoglobin ABG Sodium ABG Potassium ABG Chloride ABG Glucose Carboxyhemoglobin Sodium Potassium Chloride Carbon Dioxide BUN Creatinine Glucose POC Glucose Calcium Phosphorus Magnesium AST ALT Total Creatine Kinase 2322 H CK-MB (CK-2) Troponin T Total Protein Albumin Triglycerides Cholesterol LDL Cholesterol Direct HDL Cholesterol Arterial Blood Glucose Arterial Blood Ionized Calcium Urine Creatinine 138.9 H Urine Total Protein 86 H 04/22/21 04/23/21 04/23/21 20:00 04:42 09:53 RBC Hgb Hct RDW Lymph % (Auto) [place] % (Auto) Lymph # (Auto) Seg Neutrophils % Seg Neuts % (Manual) Lymphocytes % (Manual) Monocytes % (Manual) Lymphocytes # (Manual) D-Dimer Heparin Anti-Xa Level 2.00 H < 0.10 L ABG pH POC ABG pCO2 POC ABG pO2 ABG pO2 ABG Hemoglobin ABG Oxyhemoglobin 83.2 L ABG Sodium ABG Potassium ABG Chloride 113.0 H ABG Glucose 107 H Carboxyhemoglobin Sodium Potassium Chloride Carbon Dioxide BUN Creatinine Glucose POC Glucose Calcium Phosphorus Magnesium AST ALT Total Creatine Kinase CK-MB (CK-2) Troponin T Total Protein Albumin Triglycerides Cholesterol LDL Cholesterol Direct HDL Cholesterol Arterial Blood Glucose 107 H Arterial Blood Ionized Calcium Urine Creatinine Urine Total Protein 04/23/21 04/23/21 04/23/21 14:21 14:21 15:11 RBC Hgb Hct RDW 16.3 H Lymph % (Auto) [place] % (Auto) Lymph # (Auto) Seg Neutrophils % Seg Neuts % (Manual) Lymphocytes % (Manual) Monocytes % (Manual) Lymphocytes # (Manual) D-Dimer Heparin Anti-Xa Level ABG pH POC ABG pCO2 POC ABG pO2 68.6 L ABG pO2 ABG Hemoglobin ABG Oxyhemoglobin 91.3 L ABG Sodium ABG Potassium ABG Chloride 113.0 H ABG Glucose 100 H Carboxyhemoglobin Sodium Potassium Chloride 113.1 H Carbon Dioxide 20 L BUN 18 H Creatinine Glucose POC Glucose Calcium 8.2 L Phosphorus Magnesium AST 59 H ALT Total Creatine Kinase 681 H CK-MB (CK-2) Troponin T Total Protein 5.5 L Albumin 2.3 L Triglycerides Cholesterol LDL Cholesterol Direct HDL Cholesterol Arterial Blood Glucose 100 H Arterial Blood Ionized Calcium Urine Creatinine Urine Total Protein 04/23/21 04/24/21 04/24/21 18:30 04:00 05:37 RBC Hgb Hct RDW Lymph % (Auto) [place] % (Auto) Lymph # (Auto) Seg Neutrophils % Seg Neuts % (Manual) Lymphocytes % (Manual) Monocytes % (Manual) Lymphocytes # (Manual) D-Dimer Heparin Anti-Xa Level 1.84 H ABG pH POC ABG pCO2 POC ABG pO2 51.9 L ABG pO2 ABG Hemoglobin ABG Oxyhemoglobin 84.9 L ABG Sodium ABG Potassium ABG Chloride 112.0 H ABG Glucose 138 H Carboxyhemoglobin Sodium Potassium Chloride Carbon Dioxide BUN Creatinine Glucose POC Glucose 108 H Calcium Phosphorus Magnesium AST ALT Total Creatine Kinase CK-MB (CK-2) Troponin T Total Protein Albumin Triglycerides Cholesterol LDL Cholesterol Direct HDL Cholesterol Arterial Blood Glucose 138 H Arterial Blood Ionized Calcium Urine Creatinine Urine Total Protein 04/24/21 04/24/21 04/24/21 10:00 10:00 10:14 RBC Hgb Hct RDW 16.0 H Lymph % (Auto) [place] % (Auto) Lymph # (Auto) Seg Neutrophils % Seg Neuts % (Manual) Lymphocytes % (Manual) Monocytes % (Manual) Lymphocytes # (Manual) D-Dimer Heparin Anti-Xa Level 0.84 H ABG pH POC ABG pCO2 POC ABG pO2 ABG pO2 ABG Hemoglobin ABG Oxyhemoglobin ABG Sodium ABG Potassium ABG Chloride ABG Glucose Carboxyhemoglobin Sodium Potassium Chloride 109.9 H Carbon Dioxide BUN Creatinine Glucose 118 H POC Glucose Calcium Phosphorus 2.00 L Magnesium 2.40 H AST 59 H ALT Total Creatine Kinase 396 H CK-MB (CK-2) Troponin T Total Protein 5.5 L Albumin 2.4 L Triglycerides Cholesterol LDL Cholesterol Direct HDL Cholesterol Arterial Blood Glucose Arterial Blood Ionized Calcium Urine Creatinine Urine Total Protein 04/24/21 04/24/21 04/24/21 11:14 12:00 15:23 RBC Hgb Hct RDW Lymph % (Auto) [place] % (Auto) Lymph # (Auto) Seg Neutrophils % Seg Neuts % (Manual) Lymphocytes % (Manual) Monocytes % (Manual) Lymphocytes # (Manual) D-Dimer Heparin Anti-Xa Level ABG pH 7.287 L POC ABG pCO2 54.3 H POC ABG pO2 58.2 L 67.5 L ABG pO2 ABG Hemoglobin ABG Oxyhemoglobin 88.3 L 89.9 L ABG Sodium ABG Potassium ABG Chloride 111.0 H 110.0 H ABG Glucose 117 H 126 H Carboxyhemoglobin 0.3 L Sodium Potassium Chloride Carbon Dioxide BUN Creatinine Glucose POC Glucose 112 H Calcium Phosphorus Magnesium AST ALT Total Creatine Kinase CK-MB (CK-2) Troponin T Total Protein Albumin Triglycerides Cholesterol LDL Cholesterol Direct HDL Cholesterol Arterial Blood Glucose 117 H 126 H Arterial Blood Ionized Calcium Urine Creatinine Urine Total Protein 04/24/21 04/24/21 04/24/21 17:58 18:00 22:56 RBC Hgb Hct RDW Lymph % (Auto) [place] % (Auto) Lymph # (Auto) Seg Neutrophils % Seg Neuts % (Manual) Lymphocytes % (Manual) Monocytes % (Manual) Lymphocytes # (Manual) D-Dimer Heparin Anti-Xa Level ABG pH POC ABG pCO2 POC ABG pO2 53.3 L ABG pO2 ABG Hemoglobin ABG Oxyhemoglobin 86.2 L ABG Sodium ABG Potassium ABG Chloride 111.0 H ABG Glucose 115 H Carboxyhemoglobin 0.4 L Sodium Potassium Chloride Carbon Dioxide BUN Creatinine Glucose POC Glucose 106 H 131 H Calcium Phosphorus Magnesium AST ALT Total Creatine Kinase CK-MB (CK-2) Troponin T Total Protein Albumin Triglycerides Cholesterol LDL Cholesterol Direct HDL Cholesterol Arterial Blood Glucose 115 H Arterial Blood Ionized Calcium Urine Creatinine Urine Total Protein 04/25/21 04/25/21 04/25/21 04:00 07:42 10:50 RBC Hgb Hct RDW Lymph % (Auto) [place] % (Auto) Lymph # (Auto) Seg Neutrophils % Seg Neuts % (Manual) Lymphocytes % (Manual) Monocytes % (Manual) Lymphocytes # (Manual) D-Dimer Heparin Anti-Xa Level ABG pH POC ABG pCO2 POC ABG pO2 48.5 L 56.5 L ABG pO2 ABG Hemoglobin 10.6 L 10.4 L ABG Oxyhemoglobin 79.4 L 86.8 L ABG Sodium ABG Potassium ABG Chloride 111.0 H 112.0 H ABG Glucose 115 H 124 H Carboxyhemoglobin 0.2 L Sodium 146 H Potassium Chloride 111.3 H Carbon Dioxide BUN Creatinine Glucose 128 H POC Glucose Calcium Phosphorus Magnesium AST ALT Total Creatine Kinase CK-MB (CK-2) Troponin T Total Protein Albumin Triglycerides Cholesterol LDL Cholesterol Direct HDL Cholesterol Arterial Blood Glucose 115 H 124 H Arterial Blood Ionized Calcium Urine Creatinine Urine Total Protein 04/25/21 04/25/21 04/25/21 11:12 13:55 16:05 RBC Hgb Hct RDW Lymph % (Auto) [place] % (Auto) Lymph # (Auto) Seg Neutrophils % Seg Neuts % (Manual) Lymphocytes % (Manual) Monocytes % (Manual) Lymphocytes # (Manual) D-Dimer Heparin Anti-Xa Level ABG pH POC ABG pCO2 POC ABG pO2 46.7 L 53.7 L ABG pO2 ABG Hemoglobin 10.7 L 11.1 L ABG Oxyhemoglobin 81.3 L 85.6 L ABG Sodium ABG Potassium ABG Chloride 111.0 H 111.0 H ABG Glucose 158 H 185 H Carboxyhemoglobin 0.4 L Sodium Potassium Chloride Carbon Dioxide BUN Creatinine Glucose POC Glucose 136 H Calcium Phosphorus Magnesium AST ALT Total Creatine Kinase CK-MB (CK-2) Troponin T Total Protein Albumin Triglycerides Cholesterol LDL Cholesterol Direct HDL Cholesterol Arterial Blood Glucose 158 H 185 H Arterial Blood Ionized Calcium Urine Creatinine Urine Total Protein 04/25/21 04/25/21 04/26/21 17:39 23:18 05:06 RBC Hgb Hct RDW Lymph % (Auto) [place] % (Auto) Lymph # (Auto) Seg Neutrophils % Seg Neuts % (Manual) Lymphocytes % (Manual) Monocytes % (Manual) Lymphocytes # (Manual) D-Dimer Heparin Anti-Xa Level ABG pH POC ABG pCO2 POC ABG pO2 ABG pO2 ABG Hemoglobin ABG Oxyhemoglobin ABG Sodium ABG Potassium ABG Chloride ABG Glucose Carboxyhemoglobin Sodium Potassium Chloride Carbon Dioxide BUN Creatinine Glucose POC Glucose 155 H 158 H 134 H Calcium Phosphorus Magnesium AST ALT Total Creatine Kinase CK-MB (CK-2) Troponin T Total Protein Albumin Triglycerides Cholesterol LDL Cholesterol Direct HDL Cholesterol Arterial Blood Glucose Arterial Blood Ionized Calcium Urine Creatinine Urine Total Protein 04/26/21 04/26/21 04/26/21 05:22 12:20 13:16 RBC Hgb Hct RDW Lymph % (Auto) [place] % (Auto) Lymph # (Auto) Seg Neutrophils % Seg Neuts % (Manual) Lymphocytes % (Manual) Monocytes % (Manual) Lymphocytes # (Manual) D-Dimer Heparin Anti-Xa Level ABG pH POC ABG pCO2 POC ABG pO2 52.2 L 53.9 L ABG pO2 ABG Hemoglobin 10.9 L 11.5 L ABG Oxyhemoglobin 86.5 L 86.4 L ABG Sodium 145.8 H ABG Potassium 4.6 H ABG Chloride 114.0 H 112.0 H ABG Glucose 144 H 162 H Carboxyhemoglobin 0.4 L 0.4 L Sodium Potassium Chloride Carbon Dioxide BUN Creatinine Glucose POC Glucose 160 H Calcium Phosphorus Magnesium AST ALT Total Creatine Kinase CK-MB (CK-2) Troponin T Total Protein Albumin Triglycerides Cholesterol LDL Cholesterol Direct HDL Cholesterol Arterial Blood Glucose 144 H 162 H Arterial Blood Ionized Calcium Urine Creatinine Urine Total Protein 04/26/21 04/26/21 04/26/21 14:09 18:42 23:30 RBC Hgb Hct RDW Lymph % (Auto) [place] % (Auto) Lymph # (Auto) Seg Neutrophils % Seg Neuts % (Manual) Lymphocytes % (Manual) Monocytes % (Manual) Lymphocytes # (Manual) D-Dimer Heparin Anti-Xa Level ABG pH POC ABG pCO2 POC ABG pO2 55.3 L ABG pO2 ABG Hemoglobin 11.6 L ABG Oxyhemoglobin 87.2 L ABG Sodium 146.6 H ABG Potassium ABG Chloride 111.0 H ABG Glucose 165 H Carboxyhemoglobin Sodium Potassium Chloride Carbon Dioxide BUN Creatinine Glucose POC Glucose 161 H 163 H Calcium Phosphorus Magnesium AST ALT Total Creatine Kinase CK-MB (CK-2) Troponin T Total Protein Albumin Triglycerides Cholesterol LDL Cholesterol Direct HDL Cholesterol Arterial Blood Glucose 165 H Arterial Blood Ionized Calcium Urine Creatinine Urine Total Protein 04/27/21 04/27/21 04/27/21 03:51 05:14 06:25 RBC 3.64 L Hgb Hct RDW 16.2 H Lymph % (Auto) [place] % (Auto) Lymph # (Auto) Seg Neutrophils % Seg Neuts % (Manual) Lymphocytes % (Manual) Monocytes % (Manual) Lymphocytes # (Manual) D-Dimer Heparin Anti-Xa Level ABG pH POC ABG pCO2 52.9 H POC ABG pO2 60.8 L ABG pO2 ABG Hemoglobin 11.9 L ABG Oxyhemoglobin 87.9 L ABG Sodium 147.8 H ABG Potassium ABG Chloride 111.0 H ABG Glucose 183 H Carboxyhemoglobin Sodium Potassium Chloride Carbon Dioxide BUN Creatinine Glucose POC Glucose 165 H Calcium Phosphorus Magnesium AST ALT Total Creatine Kinase CK-MB (CK-2) Troponin T Total Protein Albumin Triglycerides Cholesterol LDL Cholesterol Direct HDL Cholesterol Arterial Blood Glucose 183 H Arterial Blood Ionized Calcium Urine Creatinine Urine Total Protein 04/27/21 04/27/21 04/27/21 06:25 11:45 17:41 RBC Hgb Hct RDW Lymph % (Auto) [place] % (Auto) Lymph # (Auto) Seg Neutrophils % Seg Neuts % (Manual) Lymphocytes % (Manual) Monocytes % (Manual) Lymphocytes # (Manual) D-Dimer Heparin Anti-Xa Level ABG pH POC ABG pCO2 POC ABG pO2 ABG pO2 ABG Hemoglobin ABG Oxyhemoglobin ABG Sodium ABG Potassium ABG Chloride ABG Glucose Carboxyhemoglobin Sodium 148 H Potassium 5.1 H D Chloride 109.0 H Carbon Dioxide BUN 35 H Creatinine Glucose 170 H POC Glucose 184 H 172 H Calcium Phosphorus Magnesium AST 48 H ALT Total Creatine Kinase CK-MB (CK-2) Troponin T Total Protein Albumin 2.4 L Triglycerides Cholesterol LDL Cholesterol Direct HDL Cholesterol Arterial Blood Glucose Arterial Blood Ionized Calcium Urine Creatinine Urine Total Protein 04/27/21 04/28/21 04/28/21 23:16 03:23 04:00 RBC Hgb Hct RDW Lymph % (Auto) [place] % (Auto) Lymph # (Auto) Seg Neutrophils % Seg Neuts % (Manual) Lymphocytes % (Manual) Monocytes % (Manual) Lymphocytes # (Manual) D-Dimer Heparin Anti-Xa Level ABG pH POC ABG pCO2 55.9 H POC ABG pO2 76.2 L ABG pO2 ABG Hemoglobin 11.5 L ABG Oxyhemoglobin 92.9 L ABG Sodium 153.3 H ABG Potassium 3.2 L ABG Chloride 115.0 H ABG Glucose 154 H Carboxyhemoglobin Sodium 154 H Potassium 3.5 L D Chloride 114.4 H Carbon Dioxide 31 H BUN 32 H Creatinine Glucose 148 H POC Glucose 142 H Calcium Phosphorus Magnesium AST ALT Total Creatine Kinase CK-MB (CK-2) Troponin T Total Protein 6.0 L Albumin 2.4 L Triglycerides Cholesterol LDL Cholesterol Direct HDL Cholesterol Arterial Blood Glucose 154 H Arterial Blood Ionized Calcium Urine Creatinine Urine Total Protein 04/28/21 04/28/21 04/28/21 04:45 06:05 11:57 RBC Hgb Hct RDW 16.1 H Lymph % (Auto) [place] % (Auto) Lymph # (Auto) Seg Neutrophils % Seg Neuts % (Manual) Lymphocytes % (Manual) Monocytes % (Manual) Lymphocytes # (Manual) D-Dimer Heparin Anti-Xa Level ABG pH POC ABG pCO2 POC ABG pO2 ABG pO2 ABG Hemoglobin ABG Oxyhemoglobin ABG Sodium ABG Potassium ABG Chloride ABG Glucose Carboxyhemoglobin Sodium Potassium Chloride Carbon Dioxide BUN Creatinine Glucose POC Glucose 153 H 109 H Calcium Phosphorus Magnesium AST ALT Total Creatine Kinase CK-MB (CK-2) Troponin T Total Protein Albumin Triglycerides Cholesterol LDL Cholesterol Direct HDL Cholesterol Arterial Blood Glucose Arterial Blood Ionized Calcium Urine Creatinine Urine Total Protein 04/28/21 04/28/21 04/29/21 17:39 23:58 03:51 RBC Hgb Hct RDW Lymph % (Auto) [place] % (Auto) Lymph # (Auto) Seg Neutrophils % Seg Neuts % (Manual) Lymphocytes % (Manual) Monocytes % (Manual) Lymphocytes # (Manual) D-Dimer Heparin Anti-Xa Level ABG pH POC ABG pCO2 54.7 H POC ABG pO2 68.6 L ABG pO2 ABG Hemoglobin 11.9 L ABG Oxyhemoglobin 91.7 L ABG Sodium 148.2 H ABG Potassium ABG Chloride 112.0 H ABG Glucose 136 H Carboxyhemoglobin Sodium Potassium Chloride Carbon Dioxide BUN Creatinine Glucose POC Glucose 145 H 164 H Calcium Phosphorus Magnesium AST ALT Total Creatine Kinase CK-MB (CK-2) Troponin T Total Protein Albumin Triglycerides Cholesterol LDL Cholesterol Direct HDL Cholesterol Arterial Blood Glucose 136 H Arterial Blood Ionized Calcium Urine Creatinine Urine Total Protein 04/29/21 04/29/21 04/29/21 05:35 05:55 11:29 RBC Hgb Hct RDW Lymph % (Auto) [place] % (Auto) Lymph # (Auto) Seg Neutrophils % Seg Neuts % (Manual) Lymphocytes % (Manual) Monocytes % (Manual) Lymphocytes # (Manual) D-Dimer Heparin Anti-Xa Level ABG pH POC ABG pCO2 POC ABG pO2 ABG pO2 ABG Hemoglobin ABG Oxyhemoglobin ABG Sodium ABG Potassium ABG Chloride ABG Glucose Carboxyhemoglobin Sodium 149 H Potassium Chloride 110.9 H Carbon Dioxide BUN 34 H Creatinine Glucose 136 H POC Glucose 128 H 206 H Calcium Phosphorus Magnesium AST ALT Total Creatine Kinase CK-MB (CK-2) Troponin T Total Protein Albumin Triglycerides Cholesterol LDL Cholesterol Direct HDL Cholesterol Arterial Blood Glucose Arterial Blood Ionized Calcium Urine Creatinine Urine Total Protein 04/29/21 04/29/21 04/30/21 18:04 23:42 00:55 RBC Hgb Hct RDW Lymph % (Auto) [place] % (Auto) Lymph # (Auto) Seg Neutrophils % Seg Neuts % (Manual) Lymphocytes % (Manual) Monocytes % (Manual) Lymphocytes # (Manual) D-Dimer Heparin Anti-Xa Level ABG pH POC ABG pCO2 POC ABG pO2 ABG pO2 ABG Hemoglobin ABG Oxyhemoglobin ABG Sodium ABG Potassium ABG Chloride ABG Glucose Carboxyhemoglobin Sodium Potassium 5.1 H D Chloride Carbon Dioxide BUN Creatinine Glucose POC Glucose 146 H 146 H Calcium Phosphorus Magnesium AST ALT Total Creatine Kinase CK-MB (CK-2) Troponin T Total Protein Albumin Triglycerides Cholesterol LDL Cholesterol Direct HDL Cholesterol Arterial Blood Glucose Arterial Blood Ionized Calcium Urine Creatinine Urine Total Protein 04/30/21 04/30/21 04/30/21 05:00 05:34 07:40 RBC Hgb Hct RDW Lymph % (Auto) [place] % (Auto) Lymph # (Auto) Seg Neutrophils % Seg Neuts % (Manual) Lymphocytes % (Manual) Monocytes % (Manual) Lymphocytes # (Manual) D-Dimer Heparin Anti-Xa Level ABG pH POC ABG pCO2 55.6 H POC ABG pO2 62.4 L ABG pO2 ABG Hemoglobin ABG Oxyhemoglobin 90.1 L ABG Sodium 146.8 H ABG Potassium ABG Chloride 109.0 H ABG Glucose 124 H Carboxyhemoglobin Sodium 149 H Potassium Chloride 109.5 H Carbon Dioxide 35 H BUN 33 H Creatinine Glucose 126 H POC Glucose 122 H Calcium Phosphorus Magnesium 2.60 H AST ALT Total Creatine Kinase CK-MB (CK-2) Troponin T Total Protein 5.8 L Albumin 2.2 L Triglycerides 332 H Cholesterol LDL Cholesterol Direct HDL Cholesterol Arterial Blood Glucose 124 H Arterial Blood Ionized Calcium Urine Creatinine Urine Total Protein 04/30/21 04/30/21 04/30/21 07:40 11:12 17:00 RBC Hgb Hct RDW 16.3 H Lymph % (Auto) [place] % (Auto) Lymph # (Auto) Seg Neutrophils % 88.4 H Seg Neuts % (Manual) 82.0 H Lymphocytes % (Manual) 5.0 L Monocytes % (Manual) Lymphocytes # (Manual) 0.4 L D-Dimer Heparin Anti-Xa Level ABG pH POC ABG pCO2 POC ABG pO2 ABG pO2 ABG Hemoglobin ABG Oxyhemoglobin ABG Sodium ABG Potassium ABG Chloride ABG Glucose Carboxyhemoglobin Sodium Potassium Chloride Carbon Dioxide BUN Creatinine Glucose POC Glucose 127 H Calcium Phosphorus Magnesium AST ALT Total Creatine Kinase CK-MB (CK-2) Troponin T Total Protein Albumin Triglycerides 304 H Cholesterol LDL Cholesterol Direct HDL Cholesterol Arterial Blood Glucose Arterial Blood Ionized Calcium Urine Creatinine Urine Total Protein 04/30/21 04/30/21 05/01/21 18:17 23:25 03:33 RBC Hgb Hct RDW Lymph % (Auto) [place] % (Auto) Lymph # (Auto) Seg Neutrophils % Seg Neuts % (Manual) Lymphocytes % (Manual) Monocytes % (Manual) Lymphocytes # (Manual) D-Dimer Heparin Anti-Xa Level ABG pH 7.275 L POC ABG pCO2 85.0 H POC ABG pO2 ABG pO2 ABG Hemoglobin ABG Oxyhemoglobin ABG Sodium ABG Potassium 5.0 H ABG Chloride ABG Glucose 150 H Carboxyhemoglobin Sodium Potassium Chloride Carbon Dioxide BUN Creatinine Glucose POC Glucose 151 H 143 H Calcium Phosphorus Magnesium AST ALT Total Creatine Kinase CK-MB (CK-2) Troponin T Total Protein Albumin Triglycerides Cholesterol LDL Cholesterol Direct HDL Cholesterol Arterial Blood Glucose 150 H Arterial Blood Ionized Calcium Urine Creatinine Urine Total Protein 05/01/21 05/01/21 05/01/21 04:55 05:08 05:08 RBC Hgb Hct RDW 16.7 H Lymph % (Auto) [place] % (Auto) Lymph # (Auto) Seg Neutrophils % Seg Neuts % (Manual) Lymphocytes % (Manual) Monocytes % (Manual) Lymphocytes # (Manual) D-Dimer Heparin Anti-Xa Level ABG pH POC ABG pCO2 POC ABG pO2 ABG pO2 ABG Hemoglobin ABG Oxyhemoglobin ABG Sodium ABG Potassium ABG Chloride ABG Glucose Carboxyhemoglobin Sodium Potassium 5.3 H D Chloride Carbon Dioxide 36 H BUN 39 H Creatinine Glucose 150 H POC Glucose 138 H Calcium Phosphorus Magnesium AST ALT Total Creatine Kinase CK-MB (CK-2) Troponin T Total Protein Albumin Triglycerides Cholesterol LDL Cholesterol Direct HDL Cholesterol Arterial Blood Glucose Arterial Blood Ionized Calcium Urine Creatinine Urine Total Protein
[2021-05-01] MEDS: ASPIRIN 325 MG TAB PO SCH (17:56)
[2021-05-01] MEDS: SENNOSIDES/DOCUSATE SODIUM 8.6/50 MG TAB FEEDTUBE SCH (21:36)
[2021-05-01] MEDS: LORazepam 100 MG in SODIUM CHLORIDE 0.9% 50 ML, EMPTY BAG 0 ML IV SCH (21:37)
[2021-05-02] MEDS: methylPREDNISolone Sod Succinate 40 MG/1 ML INJ IV SCH ×3 (00:09→13:00)
[2021-05-02] MEDS: ENOXAPARIN 80 MG/0.8 ML INJ SUB-Q SCH ×2 (01:43→15:45)
[2021-05-02] MEDS: FREE WATER PO SCH ×6 (02:07→22:00)
--- NOTE | 2021-05-02 03:30 | XRay Report ---
CHEST 1 VIEW 05/02/2021 2:16 AM INDICATION / CLINICAL INFORMATION: sob. COMPARISON: One view of the chest from 05/01/2021 FINDINGS: SUPPORT DEVICES: Unchanged. HEART / MEDIASTINUM: No significant abnormality. LUNGS / PLEURA: Increased bilateral pulmonary opacities. No significant pleural effusion. No pneumoth orax. ADDITIONAL FINDINGS: No significant additional findings. IMPRESSION: Increased bilateral pulmonary opacities. No other significant interval changes. Signer Name: Kash Elmore MD Signed: 05/02/2021 3:26 AM Workstation Name: [id number]
[2021-05-02 07:16] LABS: Hematocrit 39.1 % (30.3-42.9); Hemoglobin 12.2 gm/dl (10.1-14.3); Mean Corpuscular HGB Conc 31 % (30-34); Mean Corpuscular Volume 97 fl (79-97); Platelet Count 302 K/mm3 (140-440); Red Blood Count 4.01 M/mm3 (3.65-5.03); Red Cell Distribution Width 17.5 % (13.2-15.2)
[2021-05-02] MEDS: ARFORMOTEROL 15 MCG/2 ML NEBU IH SCH ×2 (07:37→20:03)
[2021-05-02] MEDS: BUDESONIDE 0.5 MG/2 ML NEBU IH SCH ×2 (07:37→20:03)
[2021-05-02 08:45] LABS: Alanine Aminotransferase 44 units/L (7-56); Albumin 2.7 g/dL (3.9-5); Blood Urea Nitrogen 36 mg/dL (7-17); Calcium 10.1 mg/dL (8.4-10.2); Hemolysis Index 16
[2021-05-02 09:11] LABS: BUN/Creatinine Ratio 51
[2021-05-02] MEDS: levETIRAcetam 500 MG/5 ML ORAL LIQD PO SCH ×2 (09:29→21:09)
[2021-05-02] MEDS: ASPIRIN 325 MG TAB PO SCH (09:30)
[2021-05-02] MEDS: QUEtiapine 25 MG TAB PO SCH ×2 (09:30→21:10)
[2021-05-02] MEDS: FAMOTIDINE 20 MG TAB PO SCH ×2 (09:30→21:10)
--- NOTE | 2021-05-02 10:25 | Progress Note ---
Assessment and Plan Assessment and plan: Per ER... 04-21 The patient is a 66-year-old female present with a chief complaint of altered mental status. Per EMS the patient has a history of previous CVA with left- sided weakness. Family reported that the patient developed increased left-sided weakness 3 days ago. The patient was taken to the emergency department but refused to be seen so family brought the patient back home. The following day the patient "stopped speaking" and family eventually brought the patient into the ED today as there was no improvement. Patient opens her eyes to sternal rub and answers some questions but appears confused. First oxygen saturation in ER was 69%. Pt intubated for airway protection and hypoxia believed to be due to unprotected airway post seizure. Pt was ER hold and arrived to ICU overnight PMH HTN HLD CVA 2 Y AGO with left sided residual weakness NOK daughter (see previous encounter note 07/2019) 04-30 NO ACUTE EVENTS OVERNIGHT; diuresis 05-01 no acute events overnight; diuresis 05-02 no acute events overnight NEURO hx CVA with l sided weakness; new onset sz; metabolic encephalopathy new onset sz on keppra UDS neg on admit neuro following- Dr Watson reconsulted today for follow up recommendations on ; still pending today PERRL; no commands CT head on admit- IMPRESSION: Encephalomalacia in the right temporal lobe, frontal lobe; no acute/subacute parenchymal lesions MRI Encephalomalacia in the right cerebral hemisphere - see report daily SAT limited by hypoxia RAAS goal neg 4 sedated on propofol and ativan on seroquel BID; following QT case management following CV: hx htn on norvasc at home per EMR asa/statin echo 04/22 see report SR-ST more tachycardic today; to 140; no fever; does not appear to be in pain 12lead Sinus tachycardia given metop 5 mg IV with HR back to baseline which is 100-115 no pressors PRN hydral normal echocardiogram RESP acute resp failure with PE on CTA; refractory hypoxia requiring MV intubated in ER; remains ventilated ACPRVC [id number] permissive hypercapnia see iview for titration sat goal [address] noted - a/c lung disease evident with LPA PE's noted US BLE neg for DVT trending ABG, xray of chest and lactate increasing opacities on xray noted this AM continue nebs continue solumedrol will likely need trach- today vent day 10 GI -diarrhea- improved TF at goal nutrition following PPI bowel reg - colace/senna last BM recorded 04/30- will add miralax -LIZBETH likely pre-renal in nature; hyperNa - improving; hypophos; hyperk purewik strict I/O trend and replace electrolytes as needed trend BUN/CR/CK nephrology following - last seen 04/25 repeat labs ordered this afternoon due to uptrending K lasix and kaex. x 1 given Cr remains normal lasix 40 mg IV x 1 today pt was net neg 308 per EMR over 24 hurs FWF for Na - trend Na AM labs ordered HEME- Pulmonary emboli VTE on lovenox BID trending coags/Xa trend CBC no bleeding on exam LE dopplers neg for DVT ID- nap covid neg follow cultures 04/21 sputum culture afebrile no antibiotics at this time are indicated continue to trend temp and WBC curve WBC stable continuing methylpred ENDO stress hyperglycemia; obese blood glucose monitoring avoid hypoglycemia The high probability of a clinically significant, sudden or life threatening deterioration of the [respiratory] system(s) required my full and direct attention, intervention and personal management. The aggregate critical care edward e was [60] minutes. This time is in addition to time spent performing reported procedures but includes the following: [x] Data Review and interpretation [x] Patient assessment and monitoring of vital signs [x] Documentation [x] Medication orders and management Disposition Plan: tbd Total Time Spent with Patient (Minutes): 60 History Interval history: jd overnight Hospitalist Physical - Constitutional Vitals: Temp Pulse Resp BP Pulse Ox 99.5 F 117 H 18 141/78 95 05/02/21 04:00 05/02/21 10:00 05/02/21 10:00 05/02/21 10:05/02/21 10:00 General appearance: Present: no acute distress, well-nourished, other (Sedated on vent) - EENT Eyes: Present: PERRL ENT: clear oral mucosa - Neck Neck: Present: supple - Respiratory Respiratory effort: normal - Cardiovascular Rhythm: regular Heart Sounds: Present: S1 & S2 - Extremities Extremities: no ischemia Peripheral Pulses: within normal limits - Abdominal General gastrointestinal: soft - Integumentary Integumentary: Present: clear, warm, dry - Psychiatric Psychiatric: other - Neurologic Neurologic: other - Allied Health Allied health notes reviewed: nursing, social work, case management HEART Score - HEART Score Age: 45-65 Risk factors: 1-2 risk factors Troponin: Troponin T 0.055 ng/mL (0.00-0.029) H 04/21/21 16:32 - Critical Actions Critical Actions: 0-3 pts:0.9-1.7%risk of adverse cardiac event.Candidate for discharge Results - Labs CBC & Chem 7: 05/02/21 06:57 05/02/21 06:57 Labs: Laboratory Last Values WBC 9.2 K/mm3 (4.5-11.0) 05/02/21 06:57 RBC 4.01 M/mm3 (3.65-5.03) 05/02/21 06:57 Hgb 12.2 gm/dl (10.1-14.3) 05/02/21 06:57 Hct 39.1 % (30.3-42.9) 05/02/21 06:57 MCV 97 fl (79-97) 05/02/21 06:57 MCH 30 pg (28-32) 05/02/21 06:57 MCHC 31 % (30-34) 05/02/21 06:57 RDW 17.5 % (13.2-15.2) H 05/02/21 06:57 Plt Count 302 K/mm3 (140-440) 05/02/21 06:57 Lymph % (Auto) 12.0 % (13.4-35.0) L 04/22/21 05:29 [place] % (Auto) 2.8 % (0.0-7.3) 04/30/21 07:40 Eos % (Auto) 0.9 % (0.0-4.3) 04/30/21 07:40 Baso % (Auto) 0.7 % (0.0-1.8) 04/22/21 05:29 Lymph # (Auto) 1.1 K/mm3 (1.2-5.4) L 04/22/21 05:29 [place] # (Auto) 0.2 K/mm3 (0.0-0.8) 04/30/21 07:40 Eos # (Auto) 0.1 K/mm3 (0.0-0.4) 04/30/21 07:40 Baso # (Auto) 0.0 K/mm3 (0.0-0.1) 04/30/21 07:40 Add Manual Diff Complete 04/30/21 07:40 Total Counted 100 04/30/21 07:40 Seg Neutrophils % 88.4 % (40.0-70.0) H 04/30/21 07:40 Seg Neuts % (Manual) 82.0 % (40.0-70.0) H 04/30/21 07:40 Band Neutrophils % 6.0 % 04/30/21 07:40 Lymphocytes % (Manual) 5.0 % (13.4-35.0) L 04/30/21 07:40 Monocytes % (Manual) 8.0 % (0.0-7.3) H 04/21/21 16:32 Eosinophils % (Manual) 1.0 % (0.0-4.3) 04/30/21 07:40 Metamyelocytes % 3.0 % 04/30/21 07:40 Myelocytes % 3.0 % 04/30/21 07:40 Nucleated RBC % Not Reportable 04/30/21 07:40 Seg Neutrophils # 7.5 K/mm3 (1.8-7.7) 04/30/21 07:40 Seg Neutrophils # Man 7.2 K/mm3 (1.8-7.7) 04/30/21 07:40 Band Neutrophils # 0.5 K/mm3 04/30/21 07:40 Lymphocytes # (Manual) 0.4 K/mm3 (1.2-5.4) L 04/30/21 07:40 Abs React Lymphs (Man) 0.0 K/mm3 04/30/21 07:40 Monocytes # (Manual) 0.0 K/mm3 (0.0-0.8) 04/30/21 07:40 Eosinophils # (Manual) 0.1 K/mm3 (0.0-0.4) 04/30/21 07:40 Basophils # (Manual) 0.0 K/mm3 (0.0-0.1) 04/30/21 07:40 Metamyelocytes # 0.3 K/mm3 04/30/21 07:40 Myelocytes # 0.3 K/mm3 04/30/21 07:40 Promyelocytes # 0.0 K/mm3 04/30/21 07:40 Blast Cells # 0.0 K/mm3 04/30/21 07:40 WBC Morphology Not Reportable 04/30/21 07:40 Hypersegmented Neuts Not Reportable 04/30/21 07:40 Hyposegmented Neuts Not Reportable 04/30/21 07:40 Hypogranular Neuts Not Reportable 04/30/21 07:40 Smudge Cells Not Reportable 04/30/21 07:40 Toxic Granulation Not Reportable 04/30/21 07:40 Toxic Vacuolation Not Reportable 04/30/21 07:40 Dohle Bodies Not Reportable 04/30/21 07:40 [place]-Huet Anomaly Not Reportable 04/30/21 07:40 Brenda Rods Not Reportable 04/30/21 07:40 Platelet Estimate Consistent w auto 04/30/21 07:40 Clumped Platelets Not Reportable 04/30/21 07:40 Plt Clumps, EDTA Not Reportable 04/30/21 07:40 Large Platelets Not Reportable 04/30/21 07:40 Giant Platelets Not Reportable 04/30/21 07:40 Platelet Satelliting Not Reportable 04/30/21 07:40 Plt Morphology Comment Not Reportable 04/30/21 07:40 RBC Morphology Normal 04/30/21 07:40 Dimorphic RBCs Not Reportable 04/30/21 07:40 Polychromasia Not Reportable 04/30/21 07:40 Hypochromasia Not Reportable 04/30/21 07:40 Poikilocytosis Not Reportable 04/30/21 07:40 Anisocytosis Not Reportable 04/30/21 07:40 Microcytosis Not Reportable 04/30/21 07:40 Macrocytosis Not Reportable 04/30/21 07:40 Spherocytes Not Reportable 04/30/21 07:40 Pappenheimer Bodies Not Reportable 04/30/21 07:40 Sickle Cells Not Reportable 04/30/21 07:40 Target Cells Not Reportable 04/30/21 07:40 Tear Drop Cells Not Reportable 04/30/21 07:40 Ovalocytes Not Reportable 04/30/21 07:40 Helmet Cells Not Reportable 04/30/21 07:40 [place] Bodies Not Reportable 04/30/21 07:40 [place] Rings Not Reportable 04/30/21 07:40 [place] Cells Not Reportable 04/30/21 07:40 Bite Cells Not Reportable 04/30/21 07:40 Crenated Cell Not Reportable 04/30/21 07:40 Elliptocytes Not Reportable 04/30/21 07:40 Acanthocytes (Spur) Not Reportable 04/30/21 07:40 Rouleaux Not Reportable 04/30/21 07:40 Hemoglobin C Crystals Not Reportable 04/30/21 07:40 Schistocytes Not Reportable 04/30/21 07:40 Malaria parasites Not Reportable 04/30/21 07:40 Uli Bodies Not Reportable 04/30/21 07:40 Hem Pathologist Commnt No 04/30/21 07:40 PT 13.2 Sec. (12.2-14.9) 04/22/21 00:32 INR 0.95 (0.87-1.13) 04/22/21 00:32 APTT 29.2 Sec. (24.2-36.6) 04/22/21 00:32 D-Dimer 1522.26 ng/mlDDU (0-234) H 04/21/21 16:30 Heparin Anti-Xa Level 0.84 U.I./ml (0.3-0.7) H 04/24/21 10:14 ABG pH 7.267 (7.320-7.450) L 05/02/21 08:00 POC ABG pCO2 102.9 mmHg (32.0-48.0) H 05/02/21 08:00 ABG pCO2 46.0 mm Hg 04/22/21 17:30 POC ABG pO2 81.4 mmHg (83-108) L 05/02/21 08:00 ABG pO2 99.6 mm Hg (80.0-90.0) H 04/22/21 17:30 POC ABG HCO3 45.9 05/02/21 08:00 ABG HCO3 24.4 mmol/L (20.0-26.0) 04/22/21 17:30 ABG O2 Saturation 95.0 (0-100) 05/02/21 08:00 ABG O2 Content 19.9 (0.0-44) 04/22/21 17:30 POC ABG Base Excess 14.5 05/02/21 08:00 ABG Base Excess -1.6 mmol/L (-2.0-3.0) 04/22/21 17:30 ABG Hemoglobin 12.7 (12.0-17.5) 05/02/21 08:00 ABG Oxyhemoglobin 93.6 (94-98) L 05/02/21 08:00 ABG Carboxyhemoglobin 0.9 % (0.0-5.0) 04/22/21 17:30 ABG Methemoglobin 0.1 (0.0-1.5) 05/02/21 08:00 ABG Sodium 148.0 mmol/L (136.0-145.0) H 05/02/21 08:00 ABG Potassium 5.4 mmol/L (3.40-4.50) H 05/02/21 08:00 ABG Chloride 103.0 mmol/L (98-107) 05/02/21 08:00 ABG Glucose 249 mg/dL (65-95) H 05/02/21 08:00 Oxyhemoglobin 95.9 % (95.0-99.0) 04/22/21 17:30 Carboxyhemoglobin 1.4 (0.5-1.5) 05/02/21 08:00 FiO2 100 % 04/22/21 17:30 FiO2 % 85.0 05/02/21 08:00 Sodium 148 mmol/L (137-145) H 05/02/21 06:57 Potassium 5.6 mmol/L (3.6-5.0) H 05/02/21 06:57 Chloride 103.5 mmol/L (98-107) 05/02/21 06:57 Carbon Dioxide 40 mmol/L (22-30) H 05/02/21 06:57 Anion Gap 10 mmol/L 05/02/21 06:57 BUN 36 mg/dL (7-17) H 05/02/21 06:57 Creatinine 0.7 mg/dL (0.6-1.2) 05/02/21 06:57 Estimated GFR > 60 ml/min 05/02/21 06:57 BUN/Creatinine Ratio 51 % 05/02/21 06:57 Glucose 227 mg/dL (65-100) H 05/02/21 06:57 POC Glucose 184 mg/dL (70-105) H 05/02/21 05:32 Calcium 10.1 mg/dL (8.4-10.2) 05/02/21 06:57 Phosphorus 2.20 mg/dL (2.5-4.5) L 05/02/21 06:57 Magnesium 2.80 mg/dL (1.7-2.3) H 05/02/21 06:57 Total Bilirubin 0.20 mg/dL (0.1-1.2) 05/02/21 06:57 AST 41 units/L (5-40) H 05/02/21 06:57 ALT 44 units/L (7-56) 05/02/21 06:57 Alkaline Phosphatase 113 units/L (35-129) 05/02/21 06:57 Ammonia 58.0 umol/L (25-60) 04/28/21 04:45 Total Creatine Kinase 396 units/L (30-135) H 04/24/21 10:00 CK-MB (CK-2) 22.4 ng/mL (0.0-4.0) H 04/21/21 16:32 CK-MB (CK-2) Rel Index 0.7 (0-4) 04/21/21 16:32 Troponin T 0.055 ng/mL (0.00-0.029) H 04/21/21 16:32 Total Protein 6.3 g/dL (6.3-8.2) 05/02/21 06:57 Albumin 2.7 g/dL (3.9-5) L 05/02/21 06:57 Albumin/Globulin Ratio 0.8 % 05/02/21 06:57 Triglycerides 304 mg/dL (2-149) H 04/30/21 17:00 Cholesterol 220 mg/dL (50-199) H 04/21/21 16:32 LDL Cholesterol Direct 142 mg/dL (50-130) H 04/21/21 16:32 HDL Cholesterol 36 mg/dL (40-59) L 04/21/21 16:32 Cholesterol/HDL Ratio 6.11 % 04/21/21 16:32 TSH 0.876 mlU/mL (0.270-4.200) 04/21/21 16:32 Free T4 1.05 ng/dL (0.76-1.46) 04/21/21 16:32 Arterial Blood Glucose 249 mg/dL (65-95) H 05/02/21 08:00 Arterial Blood Ionized Calcium 5.1 mg/dL (4.6-5.3) 05/02/21 08:00 Urine Color Yellow (Yellow) 04/21/21 Unknown Urine Turbidity Clear (Clear) 04/21/21 Unknown Urine pH 5.0 (5.0-7.0) 04/21/21 Unknown Ur Specific [place] 1.014 (1.003-1.030) 04/21/21 Unknown Urine Protein 100 mg/dl mg/dL (Negative) 04/21/21 Unknown Urine Glucose (UA) Neg mg/dL (Negative) 04/21/21 Unknown Urine Ketones Tr mg/dL (Negative) 04/21/21 Unknown Urine Blood Lg (Negative) 04/21/21 Unknown Urine Nitrite Neg (Negative) 04/21/21 Unknown Urine Bilirubin Neg (Negative) 04/21/21 Unknown Urine Urobilinogen 2.0 mg/dL (<2.0) 04/21/21 Unknown Ur Leukocyte Esterase Neg (Negative) 04/21/21 Unknown Urine WBC (Auto) 5.0 /HPF (0.0-6.0) 04/21/21 Unknown Urine RBC (Auto) 1.0 /HPF (0.0-6.0) 04/21/21 Unknown U Epithel Cells (Auto) 1.0 /HPF (0-13.0) 04/21/21 Unknown Urine Mucus Few /HPF 04/21/21 Unknown Urine Creatinine 138.9 mg/dL (0.1-20.0) H 04/22/21 13:03 Urine Total Protein 86 mg/dL (5-11.8) H 04/22/21 13:03 Urine Opiates Screen Negative 04/21/21 Unknown Urine Methadone Screen Negative 04/21/21 Unknown Ur Barbiturates Screen Negative 04/21/21 Unknown Ur Phencyclidine Scrn Negative 04/21/21 Unknown Ur Amphetamines Screen Negative 04/21/21 Unknown U Benzodiazepines Scrn Negative 04/21/21 Unknown Urine Cocaine Screen Negative 04/21/21 Unknown U Marijuana (THC) Screen Negative 04/21/21 Unknown Drugs of Abuse Note Disclamer 04/21/21 Unknown Plasma/Serum Alcohol < 0.01 % (0-0.07) 04/21/21 16:32 Coronavirus (PCR) Negative (Negative) 04/23/21 Unknown [place]/IV: Voiding Method External Female Catheter Active Medications - Current Medications Current Medications: Generic Name Dose Route Start Last Admin Trade Name Freq PRN Reason Stop Dose Admin Acetaminophen 650 mg 04/21/21 21:11 04/28/21 16:30 Acetaminophen 325 Mg Tab PO 650 mg Q4H PRN Administration Pain MILD(1-3)/Fever >100.5/DICK[place] Lipase/Protease/Amylase 1 each 04/22/21 10:51 Lipase 10,500/Protease 25,000/Amylase 43,750 (Units) Dr Ryan FEEDTUBE PRN PRN For Clogged Feeding Tube Arformoterol Tartrate 15 mcg 04/29/21 20:00 05/02/21 07:37 Arformoterol 15 Mcg/2 Ml Nebu IH 15 mcg Q12HRT MINOR Administration Aspirin 325 mg 05/01/21 13:00 05/02/21 09:30 Aspirin 325 Mg Tab PO 325 mg QDAY MINOR Administration Atorvastatin Calcium 40 mg 05/01/21 22:00 05/01/21 21:36 Atorvastatin 40 Mg Tab PO 40 mg QHS MINOR Administration Budesonide 0.5 mg 04/29/21 20:00 05/02/21 07:37 Budesonide 0.5 Mg/2 Ml Nebu IH 0.5 mg Q12HRT MINOR Administration Enoxaparin Sodium 80 mg 04/29/21 14:00 05/02/21 01:43 Enoxaparin 80 Mg/0.8 Ml Inj SUB-Q 80 mg Q12H MINOR Administration Famotidine 20 mg 04/24/21 10:00 05/02/21 09:30 Famotidine 20 Mg Tab PO 20 mg BID MINOR Administration Hydralazine HCl 10 mg 04/29/21 12:23 Hydralazine 20 Mg/1 Ml Inj IV Q4H PRN Hypertension Hydrophilic Ointment 1 applic 04/21/21 15:46 Lip Therapy Vaseline TP Q2HR PRN Dry Lips Propofol 1,000 mg in 100 mls @ 2.19 mls/hr 04/26/21 11:00 05/02/21 05:29 Diprivan 10 Mg/Ml IV 15 mcg/kg/min TITR MINOR 6.57 mls/hr Administration Protocol 5 MCG/KG/MIN Lorazepam 100 mg/ Sodium 100 mls @ 1 mls/hr 04/30/21 11:00 05/01/21 21:37 Chloride/ Miscellaneous IV 2 mg/hr Information TITR MINOR 2 mls/hr Administration Protocol 1 MG/HR Levetiracetam 750 mg 04/25/21 10:00 05/02/21 09:29 Levetiracetam 500 Mg/5 Ml Oral Liqd PO 750 mg BID MINOR Administration Methylprednisolone Sodium Succinate 60 mg 04/28/21 06:00 05/02/21 05:26 Methylprednisolone Sod Succinate 40 Mg/1 Ml Inj IV 60 mg Q6H MINOR Administration Multi-Ingred Cream/Lotion/Oil/Oint 1 applic 04/21/21 15:46 Mineral Oil/Petrolatum, White Ophth Oint 3.5 Gm OU Q4HR PRN Dry Eye(s) Quetiapine Fumarate 25 mg 04/30/21 11:00 05/02/21 09:30 Quetiapine 25 Mg Tab PO 25 mg BID MINOR Administration Senna/Docusate Sodium 1 tab 04/26/21 22:00 05/01/21 21:36 Sennosides/Docusate Sodium 8.6/50 Mg Tab FEEDTUBE 1 tab QHS MINOR Administration Simple Syrup 15 ml 04/22/21 10:51 Simple Syrup 15 Ml FEEDTUBE PRN PRN Hypoglycemia Simple Syrup 30 ml 04/22/21 10:51 Simple Syrup 15 Ml FEEDTUBE PRN PRN Hypoglycemia Sodium Bicarbonate 325 mg 04/22/21 10:51 Sodium Bicarbonate 325 Mg Tab FEEDTUBE PRN PRN For Clogged Feeding Tube Sodium Chloride 10 ml 04/21/21 22:00 05/02/21 09:31 Sodium Chloride 0.9% 10 Ml Flush Syringe IV 10 ml BID MINOR Administration Sodium Chloride 10 ml 04/21/21 21:11 04/27/21 02:54 Sodium Chloride 0.9% 10 Ml Flush Syringe IV 10 ml PRN PRN Administration LINE FLUSH Sodium Polystyrene Sulfonate 60 gm 05/02/21 10:15 Sodium Polystyrene 15 Gm/60 Ml Oral Liqd MI 05/02/21 10:16 ONCE STA Nutrition/Malnutrition Assess - Dietary Evaluation Nutrition/Malnutrition Findings: Nutrition Notes Start: 04/22/21 10:45 Freq: Status: Active Protocol: Document 05/01/21 12:27 (Rec: 05/01/21 12:30 [id number]) Nutrition Notes Initial or Follow up Reassessment Current Diagnosis Acute Kidney Injury, Hypertension,Stroke, Hyperlipidemia Other Pertinent Diagnosis New onset seizures, AMS, pulmonary embolism Current Diet TF - Nepro 35ml/hr Labs/Tests K 5.3 BUN 39 Pertinent Medications Solu medrol Height 5 ft 9 in Weight 79 kg [place] Body Weight (kg) 65.90 BMI 25.7 Weight change and time frame wt flucuations Weight Status Appropriate Subjective/Other Information Pt tolerating TF per RN. changed flush to 250 ml q4h. Percent of energy/protein needs met: 89% energy 71% pro Burn Absent Trauma Absent Minimum of two criteria No #1 Nutrition Diagnosis Inadequate oral intake Diagnosis Progress(for reassessment Continues documentation) Is patient on ventilator? Yes Is Patient Ambulatory and/or Out of Bed No REE-(Homer-St. Jeor-confined to bed) 1690.452 Calculation [facility] for [facility]ations [facility] Additional Notes Pro needs 1.2-2g/k-159g/ day Fluid needs 1ml/kcal Nutrition Intervention Nutrition Support: Continue Nepro at 35ml/hr with 150ml water flush q4h. Kcal 1,512 Protein (gm) 68 Carbohydrates (gm) 135 Fat (gm) 81 Fluid (mL) 611 Fiber (gm) 11 Goal #1 TF tolerance Goal #2 TF to meet at least 75% energy and pro needs Follow-Up By: 05/08/21 Additional Comments FU for stable TF - Attestation Statement I have reviewed and agreed w/ Malnutrition eval & tx plan: Yes
[2021-05-02] MEDS ORDERED: SODIUM POLYSTYRENE 15 GM/60 ML ORAL LIQD PR STA (10:30)
[2021-05-02 10:43] LABS: Band Neutrophils # (Manual) 0.3 K/mm3; Myelocytes # (Manual) 0.2 K/mm3; Total Cells Counted 100
[2021-05-02 10:44] LABS: Anisocytosis 1+; Giant Platelets Few; Platelet Estimate Consistent w Auto
[2021-05-02] MEDS ORDERED: FUROSEMIDE 40 MG/4 ML INJ IV ONE (11:00)
--- NOTE | 2021-05-02 12:14 | Progress Note ---
Assessment and Plan 66 y/o female, intubated for airway protection, found to have severe ILD and no has refractory hypoxemia. 05/02/21: Continue current level of sedation. Maintain current TV settings and repeat ABG in am. Goal is to get FiO2 at 60 or less in the next 24 hours. Once FiO2 less than 50% can start weaning PEEP. Repeat IV lasix today. Will likely need more free water. Continue steroids. Guarded prognosis. 05/01/21: Continue Ativan and Diprovan drip. Maintain low tidal volume and high PEEP and as long as pH is greater than 7.2. continue diuresis with IV lasix. Guarded prognosis. Will call daughter back today. Continue High dose IV steroids for now. 04/30/21: Will add Ativan drip and attempt to wean Precedex to off. Once a dequate sedation achieved and BP stable, will give an additional dose of IV lasix today. Increased Free Water to 250q4. Ok with current Triglyceride level but will need to repeat. Prognosis remains guarded. Will call daughter to update her. 04/29/21: Continue low tidal volumes and high PEEPs. Lasix 40mg IV x1 today. Continue high dose steroids. Will start pulmicort and brovana therapy. Pr ognosis remains very very guarded. Follow up Triglyceride episode tomorrow. 04/26/21: Dropped tidal volume to 300. Keep PEEP at 16. Repeat ABG at 1230. Now that BP is better will give lasix 40 IV x1. Please assess again tomorrow and see if she would benefit from this. Pulse dose steroids through tomorrow and then solumedrol 60q6 starting on Thursday. Spoke with daughter over the phone who confirmed that mother was a smoker, heavy for 30+ years. Will start on BID pulmicort and brovana therapy. Overall prognosis discussed with daughter regarding possible need for trach and vent dependence. She asked about lung tx which I explained is not an option at this time. She seemed to express understanding but was mainly in shock as she had no idea her mother had ILD and per daughter, mother never saw a lung physician. Guarded to poor prognosis. My partner rounding over the weekend, I am back on Thursday. 04/25/21: Picc line today. Increase PEEP to 16. Dropped TV back to 375. pH of 7.2 and greater is acceptable. Will also pulse dose for the next 72 hours and then transition to q6 dosing on Thursday. Will discuss current clinical state with daughter. Serial ABG's today to make sure pH stays where it needs to be and hopeful improvement in oxygenation. Guarded prognosis. 04/24/21: Will drop TV to 375 and Increase PEEP to 14. Will repeat ABG in one hour. If no improvements, may need to consider IV steroids for 48-72 hours. Exact etiology of chronic lung disease is not known. Would prefer not to give sedation vacation given high levels of oxygen required as agitation could make things worse. Right now, unable to determine current neuro state. Lungs are very very sick and even though this is a chronic issue, now with her drive diminished from the ventilator, most likely will be a difficult wean. Will discuss with family soon what the next steps could potentially be but would need to assess mental state first. Guarded prognosis. 1. Increase PEEP and repeat ABG 2. May need to consider IV steroids 3. Follow up neuro recs 4. Guarded prognosis. cCT 31 minutes. Subjective Date of service: 05/02/21 Principal diagnosis: Acute kidney injury, rhabdomyolysis Interval history: No acute events. had to increase TV as pH was getting close to being less than 7.2. PaO2 is much improved. Sedation is stable. Objective Vital Signs - 12hr 05/02/21 05/02/21 05/02/21 00:50 01:00 02:00 Temperature Pulse Rate 137 H 130 H 131 H Pulse Rate [ Anterior Bilateral] Respiratory 32 H 29 H Rate Respiratory Rate [Anterior Bilateral] Blood Pressure 155/82 152/91 O2 Sat by Pulse 92 91 Oximetry 05/02/21 05/02/21 05/02/21 03:00 03:44 04:00 Temperature 99.5 F Pulse Rate 134 H 136 H 137 H Pulse Rate [ Anterior Bilateral] Respiratory 36 H 36 H Rate Respiratory Rate [Anterior Bilateral] Blood Pressure 140/82 141/84 135/83 O2 Sat by Pulse 94 94 96 Oximetry 05/02/21 05/02/21 05/02/21 05:00 06:00 07:00 Temperature Pulse Rate 133 H 134 H 129 H Pulse Rate [ Anterior Bilateral] Respiratory 35 H 33 H 36 H Rate Respiratory Rate [Anterior Bilateral] Blood Pressure 140/82 126/84 126/84 O2 Sat by Pulse 92 94 95 Oximetry 05/02/21 05/02/21 05/02/21 07:34 08:00 08:05 Temperature 97.7 F Pulse Rate 109 H 133 H Pulse Rate [ 105 H Anterior Bilateral] Respiratory 32 H Rate Respiratory 26 H Rate [Anterior Bilateral] Blood Pressure 134/77 132/84 O2 Sat by Pulse 94 95 Oximetry 05/02/21 05/02/21 05/02/21 09:00 10:00 11:38 Temperature Pulse Rate 126 H 117 H Pulse Rate [ Anterior Bilateral] Respiratory 27 H 18 Rate Respiratory Rate [Anterior Bilateral] Blood Pressure 149/89 141/78 O2 Sat by Pulse 95 95 96 Oximetry Constitutional: no acute distress, other (Sedated) Ascultation: Bilateral: rales, rhonchi CBC and BMP: 05/02/21 06:57 05/02/21 06:57 ABG, PT/INR, D-dimer: ABG ABG pH 7.260 (7.320-7.450) L 05/02/21 10:52 POC ABG pCO2 99.9 mmHg (32.0-48.0) H 05/02/21 10:52 ABG pCO2 46.0 mm Hg 04/22/21 17:30 POC ABG pO2 74.9 mmHg (83-108) L 05/02/21 10:52 ABG pO2 99.6 mm Hg (80.0-90.0) H 04/22/21 17:30 POC ABG HCO3 43.8 05/02/21 10:52 ABG O2 Saturation 93.4 (0-100) 05/02/21 10:52 PT/INR, D-dimer PT 13.2 Sec. (12.2-14.9) 04/22/21 00:32 INR 0.95 (0.87-1.13) 04/22/21 00:32 D-Dimer 1522.26 ng/mlDDU (0-234) H 04/21/21 16:30 Abnormal lab findings: Abnormal Labs 04/21/21 04/21/21 04/21/21 14:40 15:42 16:30 RBC Hgb Hct RDW Lymph % (Auto) [place] % (Auto) Lymph # (Auto) Seg Neutrophils % Seg Neuts % (Manual) Lymphocytes % (Manual) Monocytes % (Manual) Nucleated RBC % Lymphocytes # (Manual) D-Dimer 1522.26 H Heparin Anti-Xa Level ABG pH POC ABG pCO2 POC ABG pO2 45.5 L 69.9 L ABG pO2 ABG Hemoglobin ABG Oxyhemoglobin 78.6 L 90.2 L ABG Sodium ABG Potassium ABG Chloride 111.0 H ABG Glucose 156 H 148 H Carboxyhemoglobin Sodium Potassium Chloride Carbon Dioxide BUN Creatinine Glucose POC Glucose Calcium Phosphorus Magnesium AST ALT Total Creatine Kinase CK-MB (CK-2) Troponin T Total Protein Albumin Triglycerides Cholesterol LDL Cholesterol Direct HDL Cholesterol Arterial Blood Glucose 156 H 148 H Arterial Blood Ionized Calcium 4.5 L Urine Creatinine Urine Total Protein 04/21/21 04/21/21 04/22/21 16:32 16:32 00:32 RBC 5.22 H Hgb 16.2 H 14.8 H Hct 48.6 H 44.4 H RDW 15.8 H Lymph % (Auto) [place] % (Auto) Lymph # (Auto) Seg Neutrophils % Seg Neuts % (Manual) 79.0 H Lymphocytes % (Manual) 13.0 L Monocytes % (Manual) 8.0 H Nucleated RBC % Lymphocytes # (Manual) 1.1 L D-Dimer Heparin Anti-Xa Level ABG pH POC ABG pCO2 POC ABG pO2 ABG pO2 ABG Hemoglobin ABG Oxyhemoglobin ABG Sodium ABG Potassium ABG Chloride ABG Glucose Carboxyhemoglobin Sodium Potassium Chloride Carbon Dioxide 21 L BUN 24 H Creatinine 1.3 H Glucose 130 H POC Glucose Calcium Phosphorus Magnesium AST 129 H ALT 61 H Total Creatine Kinase 3055 H CK-MB (CK-2) 22.4 H Troponin T 0.055 H Total Protein Albumin 3.6 L Triglycerides 235 H Cholesterol 220 H LDL Cholesterol Direct 142 H HDL Cholesterol 36 L Arterial Blood Glucose Arterial Blood Ionized Calcium Urine Creatinine Urine Total Protein 04/22/21 04/22/21 04/22/21 03:27 05:29 05:29 RBC Hgb 15.4 H Hct 45.8 H RDW 16.0 H Lymph % (Auto) 12.0 L [place] % (Auto) 8.0 H Lymph # (Auto) 1.1 L Seg Neutrophils % 76.3 H Seg Neuts % (Manual) Lymphocytes % (Manual) Monocytes % (Manual) Nucleated RBC % Lymphocytes # (Manual) D-Dimer Heparin Anti-Xa Level ABG pH POC ABG pCO2 POC ABG pO2 ABG pO2 ABG Hemoglobin ABG Oxyhemoglobin ABG Sodium ABG Potassium 4.7 H ABG Chloride 109.0 H ABG Glucose 155 H Carboxyhemoglobin 0.4 L Sodium Potassium 6.3 H* D Chloride Carbon Dioxide BUN 26 H Creatinine Glucose 134 H POC Glucose Calcium Phosphorus Magnesium AST 123 H ALT Total Creatine Kinase CK-MB (CK-2) Troponin T Total Protein Albumin 3.6 L Triglycerides Cholesterol LDL Cholesterol Direct HDL Cholesterol Arterial Blood Glucose 155 H Arterial Blood Ionized Calcium Urine Creatinine Urine Total Protein 04/22/21 04/22/21 04/22/21 13:03 13:25 17:30 RBC Hgb Hct RDW Lymph % (Auto) [place] % (Auto) Lymph # (Auto) Seg Neutrophils % Seg Neuts % (Manual) Lymphocytes % (Manual) Monocytes % (Manual) Nucleated RBC % Lymphocytes # (Manual) D-Dimer Heparin Anti-Xa Level ABG pH 7.343 L POC ABG pCO2 POC ABG pO2 ABG pO2 99.6 H ABG Hemoglobin ABG Oxyhemoglobin ABG Sodium ABG Potassium ABG Chloride ABG Glucose Carboxyhemoglobin Sodium Potassium Chloride Carbon Dioxide BUN Creatinine Glucose POC Glucose Calcium Phosphorus Magnesium AST ALT Total Creatine Kinase 2322 H CK-MB (CK-2) Troponin T Total Protein Albumin Triglycerides Cholesterol LDL Cholesterol Direct HDL Cholesterol Arterial Blood Glucose Arterial Blood Ionized Calcium Urine Creatinine 138.9 H Urine Total Protein 86 H 04/22/21 04/23/21 04/23/21 20:00 04:42 09:53 RBC Hgb Hct RDW Lymph % (Auto) [place] % (Auto) Lymph # (Auto) Seg Neutrophils % Seg Neuts % (Manual) Lymphocytes % (Manual) Monocytes % (Manual) Nucleated RBC % Lymphocytes # (Manual) D-Dimer Heparin Anti-Xa Level 2.00 H < 0.10 L ABG pH POC ABG pCO2 POC ABG pO2 ABG pO2 ABG Hemoglobin ABG Oxyhemoglobin 83.2 L ABG Sodium ABG Potassium ABG Chloride 113.0 H ABG Glucose 107 H Carboxyhemoglobin Sodium Potassium Chloride Carbon Dioxide BUN Creatinine Glucose POC Glucose Calcium Phosphorus Magnesium AST ALT Total Creatine Kinase CK-MB (CK-2) Troponin T Total Protein Albumin Triglycerides Cholesterol LDL Cholesterol Direct HDL Cholesterol Arterial Blood Glucose 107 H Arterial Blood Ionized Calcium Urine Creatinine Urine Total Protein 04/23/21 04/23/21 04/23/21 14:21 14:21 15:11 RBC Hgb Hct RDW 16.3 H Lymph % (Auto) [place] % (Auto) Lymph # (Auto) Seg Neutrophils % Seg Neuts % (Manual) Lymphocytes % (Manual) Monocytes % (Manual) Nucleated RBC % Lymphocytes # (Manual) D-Dimer Heparin Anti-Xa Level ABG pH POC ABG pCO2 POC ABG pO2 68.6 L ABG pO2 ABG Hemoglobin ABG Oxyhemoglobin 91.3 L ABG Sodium ABG Potassium ABG Chloride 113.0 H ABG Glucose 100 H Carboxyhemoglobin Sodium Potassium Chloride 113.1 H Carbon Dioxide 20 L BUN 18 H Creatinine Glucose POC Glucose Calcium 8.2 L Phosphorus Magnesium AST 59 H ALT Total Creatine Kinase 681 H CK-MB (CK-2) Troponin T Total Protein 5.5 L Albumin 2.3 L Triglycerides Cholesterol LDL Cholesterol Direct HDL Cholesterol Arterial Blood Glucose 100 H Arterial Blood Ionized Calcium Urine Creatinine Urine Total Protein 04/23/21 04/24/21 04/24/21 18:30 04:00 05:37 RBC Hgb Hct RDW Lymph % (Auto) [place] % (Auto) Lymph # (Auto) Seg Neutrophils % Seg Neuts % (Manual) Lymphocytes % (Manual) Monocytes % (Manual) Nucleated RBC % Lymphocytes # (Manual) D-Dimer Heparin Anti-Xa Level 1.84 H ABG pH POC ABG pCO2 POC ABG pO2 51.9 L ABG pO2 ABG Hemoglobin ABG Oxyhemoglobin 84.9 L ABG Sodium ABG Potassium ABG Chloride 112.0 H ABG Glucose 138 H Carboxyhemoglobin Sodium Potassium Chloride Carbon Dioxide BUN Creatinine Glucose POC Glucose 108 H Calcium Phosphorus Magnesium AST ALT Total Creatine Kinase CK-MB (CK-2) Troponin T Total Protein Albumin Triglycerides Cholesterol LDL Cholesterol Direct HDL Cholesterol Arterial Blood Glucose 138 H Arterial Blood Ionized Calcium Urine Creatinine Urine Total Protein 04/24/21 04/24/21 04/24/21 10:00 10:00 10:14 RBC Hgb Hct RDW 16.0 H Lymph % (Auto) [place] % (Auto) Lymph # (Auto) Seg Neutrophils % Seg Neuts % (Manual) Lymphocytes % (Manual) Monocytes % (Manual) Nucleated RBC % Lymphocytes # (Manual) D-Dimer Heparin Anti-Xa Level 0.84 H ABG pH POC ABG pCO2 POC ABG pO2 ABG pO2 ABG Hemoglobin ABG Oxyhemoglobin ABG Sodium ABG Potassium ABG Chloride ABG Glucose Carboxyhemoglobin Sodium Potassium Chloride 109.9 H Carbon Dioxide BUN Creatinine Glucose 118 H POC Glucose Calcium Phosphorus 2.00 L Magnesium 2.40 H AST 59 H ALT Total Creatine Kinase 396 H CK-MB (CK-2) Troponin T Total Protein 5.5 L Albumin 2.4 L Triglycerides Cholesterol LDL Cholesterol Direct HDL Cholesterol Arterial Blood Glucose Arterial Blood Ionized Calcium Urine Creatinine Urine Total Protein 04/24/21 04/24/21 04/24/21 11:14 12:00 15:23 RBC Hgb Hct RDW Lymph % (Auto) [place] % (Auto) Lymph # (Auto) Seg Neutrophils % Seg Neuts % (Manual) Lymphocytes % (Manual) Monocytes % (Manual) Nucleated RBC % Lymphocytes # (Manual) D-Dimer Heparin Anti-Xa Level ABG pH 7.287 L POC ABG pCO2 54.3 H POC ABG pO2 58.2 L 67.5 L ABG pO2 ABG Hemoglobin ABG Oxyhemoglobin 88.3 L 89.9 L ABG Sodium ABG Potassium ABG Chloride 111.0 H 110.0 H ABG Glucose 117 H 126 H Carboxyhemoglobin 0.3 L Sodium Potassium Chloride Carbon Dioxide BUN Creatinine Glucose POC Glucose 112 H Calcium Phosphorus Magnesium AST ALT Total Creatine Kinase CK-MB (CK-2) Troponin T Total Protein Albumin Triglycerides Cholesterol LDL Cholesterol Direct HDL Cholesterol Arterial Blood Glucose 117 H 126 H Arterial Blood Ionized Calcium Urine Creatinine Urine Total Protein 04/24/21 04/24/21 04/24/21 17:58 18:00 22:56 RBC Hgb Hct RDW Lymph % (Auto) [place] % (Auto) Lymph # (Auto) Seg Neutrophils % Seg Neuts % (Manual) Lymphocytes % (Manual) Monocytes % (Manual) Nucleated RBC % Lymphocytes # (Manual) D-Dimer Heparin Anti-Xa Level ABG pH POC ABG pCO2 POC ABG pO2 53.3 L ABG pO2 ABG Hemoglobin ABG Oxyhemoglobin 86.2 L ABG Sodium ABG Potassium ABG Chloride 111.0 H ABG Glucose 115 H Carboxyhemoglobin 0.4 L Sodium Potassium Chloride Carbon Dioxide BUN Creatinine Glucose POC Glucose 106 H 131 H Calcium Phosphorus Magnesium AST ALT Total Creatine Kinase CK-MB (CK-2) Troponin T Total Protein Albumin Triglycerides Cholesterol LDL Cholesterol Direct HDL Cholesterol Arterial Blood Glucose 115 H Arterial Blood Ionized Calcium Urine Creatinine Urine Total Protein 04/25/21 04/25/21 04/25/21 04:00 07:42 10:50 RBC Hgb Hct RDW Lymph % (Auto) [place] % (Auto) Lymph # (Auto) Seg Neutrophils % Seg Neuts % (Manual) Lymphocytes % (Manual) Monocytes % (Manual) Nucleated RBC % Lymphocytes # (Manual) D-Dimer Heparin Anti-Xa Level ABG pH POC ABG pCO2 POC ABG pO2 48.5 L 56.5 L ABG pO2 ABG Hemoglobin 10.6 L 10.4 L ABG Oxyhemoglobin 79.4 L 86.8 L ABG Sodium ABG Potassium ABG Chloride 111.0 H 112.0 H ABG Glucose 115 H 124 H Carboxyhemoglobin 0.2 L Sodium 146 H Potassium Chloride 111.3 H Carbon Dioxide BUN Creatinine Glucose 128 H POC Glucose Calcium Phosphorus Magnesium AST ALT Total Creatine Kinase CK-MB (CK-2) Troponin T Total Protein Albumin Triglycerides Cholesterol LDL Cholesterol Direct HDL Cholesterol Arterial Blood Glucose 115 H 124 H Arterial Blood Ionized Calcium Urine Creatinine Urine Total Protein 04/25/21 04/25/21 04/25/21 11:12 13:55 16:05 RBC Hgb Hct RDW Lymph % (Auto) [place] % (Auto) Lymph # (Auto) Seg Neutrophils % Seg Neuts % (Manual) Lymphocytes % (Manual) Monocytes % (Manual) Nucleated RBC % Lymphocytes # (Manual) D-Dimer Heparin Anti-Xa Level ABG pH POC ABG pCO2 POC ABG pO2 46.7 L 53.7 L ABG pO2 ABG Hemoglobin 10.7 L 11.1 L ABG Oxyhemoglobin 81.3 L 85.6 L ABG Sodium ABG Potassium ABG Chloride 111.0 H 111.0 H ABG Glucose 158 H 185 H Carboxyhemoglobin 0.4 L Sodium Potassium Chloride Carbon Dioxide BUN Creatinine Glucose POC Glucose 136 H Calcium Phosphorus Magnesium AST ALT Total Creatine Kinase CK-MB (CK-2) Troponin T Total Protein Albumin Triglycerides Cholesterol LDL Cholesterol Direct HDL Cholesterol Arterial Blood Glucose 158 H 185 H Arterial Blood Ionized Calcium Urine Creatinine Urine Total Protein 04/25/21 04/25/21 04/26/21 17:39 23:18 05:06 RBC Hgb Hct RDW Lymph % (Auto) [place] % (Auto) Lymph # (Auto) Seg Neutrophils % Seg Neuts % (Manual) Lymphocytes % (Manual) Monocytes % (Manual) Nucleated RBC % Lymphocytes # (Manual) D-Dimer Heparin Anti-Xa Level ABG pH POC ABG pCO2 POC ABG pO2 ABG pO2 ABG Hemoglobin ABG Oxyhemoglobin ABG Sodium ABG Potassium ABG Chloride ABG Glucose Carboxyhemoglobin Sodium Potassium Chloride Carbon Dioxide BUN Creatinine Glucose POC Glucose 155 H 158 H 134 H Calcium Phosphorus Magnesium AST ALT Total Creatine Kinase CK-MB (CK-2) Troponin T Total Protein Albumin Triglycerides Cholesterol LDL Cholesterol Direct HDL Cholesterol Arterial Blood Glucose Arterial Blood Ionized Calcium Urine Creatinine Urine Total Protein 04/26/21 04/26/21 04/26/21 05:22 12:20 13:16 RBC Hgb Hct RDW Lymph % (Auto) [place] % (Auto) Lymph # (Auto) Seg Neutrophils % Seg Neuts % (Manual) Lymphocytes % (Manual) Monocytes % (Manual) Nucleated RBC % Lymphocytes # (Manual) D-Dimer Heparin Anti-Xa Level ABG pH POC ABG pCO2 POC ABG pO2 52.2 L 53.9 L ABG pO2 ABG Hemoglobin 10.9 L 11.5 L ABG Oxyhemoglobin 86.5 L 86.4 L ABG Sodium 145.8 H ABG Potassium 4.6 H ABG Chloride 114.0 H 112.0 H ABG Glucose 144 H 162 H Carboxyhemoglobin 0.4 L 0.4 L Sodium Potassium Chloride Carbon Dioxide BUN Creatinine Glucose POC Glucose 160 H Calcium Phosphorus Magnesium AST ALT Total Creatine Kinase CK-MB (CK-2) Troponin T Total Protein Albumin Triglycerides Cholesterol LDL Cholesterol Direct HDL Cholesterol Arterial Blood Glucose 144 H 162 H Arterial Blood Ionized Calcium Urine Creatinine Urine Total Protein 04/26/21 04/26/21 04/26/21 14:09 18:42 23:30 RBC Hgb Hct RDW Lymph % (Auto) [place] % (Auto) Lymph # (Auto) Seg Neutrophils % Seg Neuts % (Manual) Lymphocytes % (Manual) Monocytes % (Manual) Nucleated RBC % Lymphocytes # (Manual) D-Dimer Heparin Anti-Xa Level ABG pH POC ABG pCO2 POC ABG pO2 55.3 L ABG pO2 ABG Hemoglobin 11.6 L ABG Oxyhemoglobin 87.2 L ABG Sodium 146.6 H ABG Potassium ABG Chloride 111.0 H ABG Glucose 165 H Carboxyhemoglobin Sodium Potassium Chloride Carbon Dioxide BUN Creatinine Glucose POC Glucose 161 H 163 H Calcium Phosphorus Magnesium AST ALT Total Creatine Kinase CK-MB (CK-2) Troponin T Total Protein Albumin Triglycerides Cholesterol LDL Cholesterol Direct HDL Cholesterol Arterial Blood Glucose 165 H Arterial Blood Ionized Calcium Urine Creatinine Urine Total Protein 04/27/21 04/27/21 04/27/21 03:51 05:14 06:25 RBC 3.64 L Hgb Hct RDW 16.2 H Lymph % (Auto) [place] % (Auto) Lymph # (Auto) Seg Neutrophils % Seg Neuts % (Manual) Lymphocytes % (Manual) Monocytes % (Manual) Nucleated RBC % Lymphocytes # (Manual) D-Dimer Heparin Anti-Xa Level ABG pH POC ABG pCO2 52.9 H POC ABG pO2 60.8 L ABG pO2 ABG Hemoglobin 11.9 L ABG Oxyhemoglobin 87.9 L ABG Sodium 147.8 H ABG Potassium ABG Chloride 111.0 H ABG Glucose 183 H Carboxyhemoglobin Sodium Potassium Chloride Carbon Dioxide BUN Creatinine Glucose POC Glucose 165 H Calcium Phosphorus Magnesium AST ALT Total Creatine Kinase CK-MB (CK-2) Troponin T Total Protein Albumin Triglycerides Cholesterol LDL Cholesterol Direct HDL Cholesterol Arterial Blood Glucose 183 H Arterial Blood Ionized Calcium Urine Creatinine Urine Total Protein 04/27/21 04/27/21 04/27/21 06:25 11:45 17:41 RBC Hgb Hct RDW Lymph % (Auto) [place] % (Auto) Lymph # (Auto) Seg Neutrophils % Seg Neuts % (Manual) Lymphocytes % (Manual) Monocytes % (Manual) Nucleated RBC % Lymphocytes # (Manual) D-Dimer Heparin Anti-Xa Level ABG pH POC ABG pCO2 POC ABG pO2 ABG pO2 ABG Hemoglobin ABG Oxyhemoglobin ABG Sodium ABG Potassium ABG Chloride ABG Glucose Carboxyhemoglobin Sodium 148 H Potassium 5.1 H D Chloride 109.0 H Carbon Dioxide BUN 35 H Creatinine Glucose 170 H POC Glucose 184 H 172 H Calcium Phosphorus Magnesium AST 48 H ALT Total Creatine Kinase CK-MB (CK-2) Troponin T Total Protein Albumin 2.4 L Triglycerides Cholesterol LDL Cholesterol Direct HDL Cholesterol Arterial Blood Glucose Arterial Blood Ionized Calcium Urine Creatinine Urine Total Protein 04/27/21 04/28/21 04/28/21 23:16 03:23 04:00 RBC Hgb Hct RDW Lymph % (Auto) [place] % (Auto) Lymph # (Auto) Seg Neutrophils % Seg Neuts % (Manual) Lymphocytes % (Manual) Monocytes % (Manual) Nucleated RBC % Lymphocytes # (Manual) D-Dimer Heparin Anti-Xa Level ABG pH POC ABG pCO2 55.9 H POC ABG pO2 76.2 L ABG pO2 ABG Hemoglobin 11.5 L ABG Oxyhemoglobin 92.9 L ABG Sodium 153.3 H ABG Potassium 3.2 L ABG Chloride 115.0 H ABG Glucose 154 H Carboxyhemoglobin Sodium 154 H Potassium 3.5 L D Chloride 114.4 H Carbon Dioxide 31 H BUN 32 H Creatinine Glucose 148 H POC Glucose 142 H Calcium Phosphorus Magnesium AST ALT Total Creatine Kinase CK-MB (CK-2) Troponin T Total Protein 6.0 L Albumin 2.4 L Triglycerides Cholesterol LDL Cholesterol Direct HDL Cholesterol Arterial Blood Glucose 154 H Arterial Blood Ionized Calcium Urine Creatinine Urine Total Protein 04/28/21 04/28/21 04/28/21 04:45 06:05 11:57 RBC Hgb Hct RDW 16.1 H Lymph % (Auto) [place] % (Auto) Lymph # (Auto) Seg Neutrophils % Seg Neuts % (Manual) Lymphocytes % (Manual) Monocytes % (Manual) Nucleated RBC % Lymphocytes # (Manual) D-Dimer Heparin Anti-Xa Level ABG pH POC ABG pCO2 POC ABG pO2 ABG pO2 ABG Hemoglobin ABG Oxyhemoglobin ABG Sodium ABG Potassium ABG Chloride ABG Glucose Carboxyhemoglobin Sodium Potassium Chloride Carbon Dioxide BUN Creatinine Glucose POC Glucose 153 H 109 H Calcium Phosphorus Magnesium AST ALT Total Creatine Kinase CK-MB (CK-2) Troponin T Total Protein Albumin Triglycerides Cholesterol LDL Cholesterol Direct HDL Cholesterol Arterial Blood Glucose Arterial Blood Ionized Calcium Urine Creatinine Urine Total Protein 04/28/21 04/28/21 04/29/21 17:39 23:58 03:51 RBC Hgb Hct RDW Lymph % (Auto) [place] % (Auto) Lymph # (Auto) Seg Neutrophils % Seg Neuts % (Manual) Lymphocytes % (Manual) Monocytes % (Manual) Nucleated RBC % Lymphocytes # (Manual) D-Dimer Heparin Anti-Xa Level ABG pH POC ABG pCO2 54.7 H POC ABG pO2 68.6 L ABG pO2 ABG Hemoglobin 11.9 L ABG Oxyhemoglobin 91.7 L ABG Sodium 148.2 H ABG Potassium ABG Chloride 112.0 H ABG Glucose 136 H Carboxyhemoglobin Sodium Potassium Chloride Carbon Dioxide BUN Creatinine Glucose POC Glucose 145 H 164 H Calcium Phosphorus Magnesium AST ALT Total Creatine Kinase CK-MB (CK-2) Troponin T Total Protein Albumin Triglycerides Cholesterol LDL Cholesterol Direct HDL Cholesterol Arterial Blood Glucose 136 H Arterial Blood Ionized Calcium Urine Creatinine Urine Total Protein 04/29/21 04/29/21 04/29/21 05:35 05:55 11:29 RBC Hgb Hct RDW Lymph % (Auto) [place] % (Auto) Lymph # (Auto) Seg Neutrophils % Seg Neuts % (Manual) Lymphocytes % (Manual) Monocytes % (Manual) Nucleated RBC % Lymphocytes # (Manual) D-Dimer Heparin Anti-Xa Level ABG pH POC ABG pCO2 POC ABG pO2 ABG pO2 ABG Hemoglobin ABG Oxyhemoglobin ABG Sodium ABG Potassium ABG Chloride ABG Glucose Carboxyhemoglobin Sodium 149 H Potassium Chloride 110.9 H Carbon Dioxide BUN 34 H Creatinine Glucose 136 H POC Glucose 128 H 206 H Calcium Phosphorus Magnesium AST ALT Total Creatine Kinase CK-MB (CK-2) Troponin T Total Protein Albumin Triglycerides Cholesterol LDL Cholesterol Direct HDL Cholesterol Arterial Blood Glucose Arterial Blood Ionized Calcium Urine Creatinine Urine Total Protein 04/29/21 04/29/21 04/30/21 18:04 23:42 00:55 RBC Hgb Hct RDW Lymph % (Auto) [place] % (Auto) Lymph # (Auto) Seg Neutrophils % Seg Neuts % (Manual) Lymphocytes % (Manual) Monocytes % (Manual) Nucleated RBC % Lymphocytes # (Manual) D-Dimer Heparin Anti-Xa Level ABG pH POC ABG pCO2 POC ABG pO2 ABG pO2 ABG Hemoglobin ABG Oxyhemoglobin ABG Sodium ABG Potassium ABG Chloride ABG Glucose Carboxyhemoglobin Sodium Potassium 5.1 H D Chloride Carbon Dioxide BUN Creatinine Glucose POC Glucose 146 H 146 H Calcium Phosphorus Magnesium AST ALT Total Creatine Kinase CK-MB (CK-2) Troponin T Total Protein Albumin Triglycerides Cholesterol LDL Cholesterol Direct HDL Cholesterol Arterial Blood Glucose Arterial Blood Ionized Calcium Urine Creatinine Urine Total Protein 04/30/21 04/30/21 04/30/21 05:00 05:34 07:40 RBC Hgb Hct RDW Lymph % (Auto) [place] % (Auto) Lymph # (Auto) Seg Neutrophils % Seg Neuts % (Manual) Lymphocytes % (Manual) Monocytes % (Manual) Nucleated RBC % Lymphocytes # (Manual) D-Dimer Heparin Anti-Xa Level ABG pH POC ABG pCO2 55.6 H POC ABG pO2 62.4 L ABG pO2 ABG Hemoglobin ABG Oxyhemoglobin 90.1 L ABG Sodium 146.8 H ABG Potassium ABG Chloride 109.0 H ABG Glucose 124 H Carboxyhemoglobin Sodium 149 H Potassium Chloride 109.5 H Carbon Dioxide 35 H BUN 33 H Creatinine Glucose 126 H POC Glucose 122 H Calcium Phosphorus Magnesium 2.60 H AST ALT Total Creatine Kinase CK-MB (CK-2) Troponin T Total Protein 5.8 L Albumin 2.2 L Triglycerides 332 H Cholesterol LDL Cholesterol Direct HDL Cholesterol Arterial Blood Glucose 124 H Arterial Blood Ionized Calcium Urine Creatinine Urine Total Protein 04/30/21 04/30/21 04/30/21 07:40 11:12 17:00 RBC Hgb Hct RDW 16.3 H Lymph % (Auto) [place] % (Auto) Lymph # (Auto) Seg Neutrophils % 88.4 H Seg Neuts % (Manual) 82.0 H Lymphocytes % (Manual) 5.0 L Monocytes % (Manual) Nucleated RBC % Lymphocytes # (Manual) 0.4 L D-Dimer Heparin Anti-Xa Level ABG pH POC ABG pCO2 POC ABG pO2 ABG pO2 ABG Hemoglobin ABG Oxyhemoglobin ABG Sodium ABG Potassium ABG Chloride ABG Glucose Carboxyhemoglobin Sodium Potassium Chloride Carbon Dioxide BUN Creatinine Glucose POC Glucose 127 H Calcium Phosphorus Magnesium AST ALT Total Creatine Kinase CK-MB (CK-2) Troponin T Total Protein Albumin Triglycerides 304 H Cholesterol LDL Cholesterol Direct HDL Cholesterol Arterial Blood Glucose Arterial Blood Ionized Calcium Urine Creatinine Urine Total Protein 04/30/21 04/30/21 05/01/21 18:17 23:25 03:33 RBC Hgb Hct RDW Lymph % (Auto) [place] % (Auto) Lymph # (Auto) Seg Neutrophils % Seg Neuts % (Manual) Lymphocytes % (Manual) Monocytes % (Manual) Nucleated RBC % Lymphocytes # (Manual) D-Dimer Heparin Anti-Xa Level ABG pH 7.275 L POC ABG pCO2 85.0 H POC ABG pO2 ABG pO2 ABG Hemoglobin ABG Oxyhemoglobin ABG Sodium ABG Potassium 5.0 H ABG Chloride ABG Glucose 150 H Carboxyhemoglobin Sodium Potassium Chloride Carbon Dioxide BUN Creatinine Glucose POC Glucose 151 H 143 H Calcium Phosphorus Magnesium AST ALT Total Creatine Kinase CK-MB (CK-2) Troponin T Total Protein Albumin Triglycerides Cholesterol LDL Cholesterol Direct HDL Cholesterol Arterial Blood Glucose 150 H Arterial Blood Ionized Calcium Urine Creatinine Urine Total Protein 07/28/21 07/28/21 07/28/21 04:55 05:08 05:08 RBC Hgb Hct RDW 16.7 H Lymph % (Auto) [place] % (Auto) Lymph # (Auto) Seg Neutrophils % Seg Neuts % (Manual) Lymphocytes % (Manual) Monocytes % (Manual) Nucleated RBC % Lymphocytes # (Manual) D-Dimer Heparin Anti-Xa Level ABG pH POC ABG pCO2 POC ABG pO2 ABG pO2 ABG Hemoglobin ABG Oxyhemoglobin ABG Sodium ABG Potassium ABG Chloride ABG Glucose Carboxyhemoglobin Sodium Potassium 5.3 H D Chloride Carbon Dioxide 36 H BUN 39 H Creatinine Glucose 150 H POC Glucose 138 H Calcium Phosphorus Magnesium AST ALT Total Creatine Kinase CK-MB (CK-2) Troponin T Total Protein Albumin Triglycerides Cholesterol LDL Cholesterol Direct HDL Cholesterol Arterial Blood Glucose Arterial Blood Ionized Calcium Urine Creatinine Urine Total Protein 05/01/21 05/01/21 05/01/21 11:46 14:30 17:08 RBC Hgb Hct RDW Lymph % (Auto) [place] % (Auto) Lymph # (Auto) Seg Neutrophils % Seg Neuts % (Manual) Lymphocytes % (Manual) Monocytes % (Manual) Nucleated RBC % Lymphocytes # (Manual) D-Dimer Heparin Anti-Xa Level ABG pH POC ABG pCO2 POC ABG pO2 ABG pO2 ABG Hemoglobin ABG Oxyhemoglobin ABG Sodium ABG Potassium ABG Chloride ABG Glucose Carboxyhemoglobin Sodium Potassium Chloride Carbon Dioxide BUN Creatinine Glucose POC Glucose 159 H 206 H Calcium Phosphorus Magnesium 2.60 H AST ALT Total Creatine Kinase CK-MB (CK-2) Troponin T Total Protein Albumin Triglycerides Cholesterol LDL Cholesterol Direct HDL Cholesterol Arterial Blood Glucose Arterial Blood Ionized Calcium Urine Creatinine Urine Total Protein 05/01/21 05/02/21 05/02/21 23:21 04:00 05:32 RBC Hgb Hct RDW Lymph % (Auto) [place] % (Auto) Lymph # (Auto) Seg Neutrophils % Seg Neuts % (Manual) Lymphocytes % (Manual) Monocytes % (Manual) Nucleated RBC % Lymphocytes # (Manual) D-Dimer Heparin Anti-Xa Level ABG pH 7.213 L POC ABG pCO2 123.0 H POC ABG pO2 69.9 L ABG pO2 ABG Hemoglobin ABG Oxyhemoglobin 90.0 L ABG Sodium 148.1 H ABG Potassium 5.2 H ABG Chloride ABG Glucose 205 H Carboxyhemoglobin 1.9 H Sodium Potassium Chloride Carbon Dioxide BUN Creatinine Glucose POC Glucose 176 H 184 H Calcium Phosphorus Magnesium AST ALT Total Creatine Kinase CK-MB (CK-2) Troponin T Total Protein Albumin Triglycerides Cholesterol LDL Cholesterol Direct HDL Cholesterol Arterial Blood Glucose 205 H Arterial Blood Ionized Calcium Urine Creatinine Urine Total Protein 05/02/21 05/02/21 05/02/21 06:57 06:57 08:00 RBC Hgb Hct RDW 17.5 H Lymph % (Auto) [place] % (Auto) Lymph # (Auto) Seg Neutrophils % Seg Neuts % (Manual) 84.0 H Lymphocytes % (Manual) 6.0 L Monocytes % (Manual) Nucleated RBC % 1.0 H Lymphocytes # (Manual) 0.6 L D-Dimer Heparin Anti-Xa Level ABG pH 7.267 L POC ABG pCO2 102.9 H POC ABG pO2 81.4 L ABG pO2 ABG Hemoglobin ABG Oxyhemoglobin 93.6 L ABG Sodium 148.0 H ABG Potassium 5.4 H ABG Chloride ABG Glucose 249 H Carboxyhemoglobin Sodium 148 H Potassium 5.6 H Chloride Carbon Dioxide 40 H BUN 36 H Creatinine Glucose 227 H POC Glucose Calcium Phosphorus 2.20 L Magnesium 2.80 H AST 41 H ALT Total Creatine Kinase CK-MB (CK-2) Troponin T Total Protein Albumin 2.7 L Triglycerides Cholesterol LDL Cholesterol Direct HDL Cholesterol Arterial Blood Glucose 249 H Arterial Blood Ionized Calcium Urine Creatinine Urine Total Protein 05/02/21 05/02/21 10:52 11:58 RBC Hgb Hct RDW Lymph % (Auto) [place] % (Auto) Lymph # (Auto) Seg Neutrophils % Seg Neuts % (Manual) Lymphocytes % (Manual) Monocytes % (Manual) Nucleated RBC % Lymphocytes # (Manual) D-Dimer Heparin Anti-Xa Level ABG pH 7.260 L POC ABG pCO2 99.9 H POC ABG pO2 74.9 L ABG pO2 ABG Hemoglobin ABG Oxyhemoglobin 92.1 L ABG Sodium 146.4 H ABG Potassium 5.7 H ABG Chloride ABG Glucose 266 H Carboxyhemoglobin Sodium Potassium Chloride Carbon Dioxide BUN Creatinine Glucose POC Glucose 268 H Calcium Phosphorus Magnesium AST ALT Total Creatine Kinase CK-MB (CK-2) Troponin T Total Protein Albumin Triglycerides Cholesterol LDL Cholesterol Direct HDL Cholesterol Arterial Blood Glucose 266 H Arterial Blood Ionized Calcium Urine Creatinine Urine Total Protein
[2021-05-02] MEDS ORDERED: METOPROLOL TARTRATE 5 MG/5 ML INJ IV STA (12:41)
[2021-05-02] MEDS ORDERED: POLYETHYLENE GLYCOL 3350 17 GM POWDER PO PRN (15:00)
--- NOTE | 2021-05-02 15:06 | Progress Note ---
Subjective Date of service: 05/02/21 Principal diagnosis: Acute kidney injury, rhabdomyolysis Interval history: This is a follow up consult requested by the Primary team . Impression / 1. 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 2. Reviewed Prior MRI Brain and EEG . 3. Since there has been no neurological improvement -will repeat Brain Scan and EEG . 4. Neurological Examination via tele was not able to be done - patient is under sedation . 5. Follow up - call me with questions Dr. Soren BUNN Objective - Vital Sign Vital Signs - 12hr 05/02/21 05/02/21 05/02/21 03:44 04:00 05:00 Temperature 99.5 F Pulse Rate 136 H 137 H 133 H Pulse Rate [ Anterior Bilateral] Respiratory 36 H 35 H Rate Respiratory Rate [Anterior Bilateral] Blood Pressure 141/84 135/83 140/82 O2 Sat by Pulse 94 96 92 Oximetry 05/02/21 05/02/21 05/02/21 06:00 07:00 07:34 Temperature Pulse Rate 134 H 129 H 109 H Pulse Rate [ Anterior Bilateral] Respiratory 33 H 36 H Rate Respiratory Rate [Anterior Bilateral] Blood Pressure 126/84 126/84 134/77 O2 Sat by Pulse 94 95 94 Oximetry 05/02/21 05/02/21 05/02/21 08:00 08:05 09:00 Temperature 97.7 F Pulse Rate 133 H 126 H Pulse Rate [ 105 H Anterior Bilateral] Respiratory 32 H 27 H Rate Respiratory 26 H Rate [Anterior Bilateral] Blood Pressure 132/84 149/89 O2 Sat by Pulse 95 95 Oximetry 05/02/21 05/02/21 05/02/21 10:00 11:38 12:00 Temperature 98.6 F Pulse Rate 117 H Pulse Rate [ Anterior Bilateral] Respiratory 18 Rate Respiratory Rate [Anterior Bilateral] Blood Pressure 141/78 O2 Sat by Pulse 95 96 Oximetry 05/02/21 13:05 Temperature Pulse Rate 131 H Pulse Rate [ Anterior Bilateral] Respiratory Rate Respiratory Rate [Anterior Bilateral] Blood Pressure 122/68 O2 Sat by Pulse Oximetry - Laboratory Findings CBC and BMP: 05/02/21 06:57 05/02/21 06:57 Abnormal Lab Findings: Abnormal Labs 04/21/21 04/21/21 04/21/21 14:40 15:42 16:30 RBC Hgb Hct RDW Lymph % (Auto) [place] % (Auto) Lymph # (Auto) Seg Neutrophils % Seg Neuts % (Manual) Lymphocytes % (Manual) Monocytes % (Manual) Nucleated RBC % Lymphocytes # (Manual) D-Dimer 1522.26 H Heparin Anti-Xa Level ABG pH POC ABG pCO2 POC ABG pO2 45.5 L 69.9 L ABG pO2 ABG Hemoglobin ABG Oxyhemoglobin 78.6 L 90.2 L ABG Sodium ABG Potassium ABG Chloride 111.0 H ABG Glucose 156 H 148 H Carboxyhemoglobin Sodium Potassium Chloride Carbon Dioxide BUN Creatinine Glucose POC Glucose Calcium Phosphorus Magnesium AST ALT Total Creatine Kinase CK-MB (CK-2) Troponin T Total Protein Albumin Triglycerides Cholesterol LDL Cholesterol Direct HDL Cholesterol Arterial Blood Glucose 156 H 148 H Arterial Blood Ionized Calcium 4.5 L Urine Creatinine Urine Total Protein 04/21/21 04/21/21 04/22/21 16:32 16:32 00:32 RBC 5.22 H Hgb 16.2 H 14.8 H Hct 48.6 H 44.4 H RDW 15.8 H Lymph % (Auto) [place] % (Auto) Lymph # (Auto) Seg Neutrophils % Seg Neuts % (Manual) 79.0 H Lymphocytes % (Manual) 13.0 L Monocytes % (Manual) 8.0 H Nucleated RBC % Lymphocytes # (Manual) 1.1 L D-Dimer Heparin Anti-Xa Level ABG pH POC ABG pCO2 POC ABG pO2 ABG pO2 ABG Hemoglobin ABG Oxyhemoglobin ABG Sodium ABG Potassium ABG Chloride ABG Glucose Carboxyhemoglobin Sodium Potassium Chloride Carbon Dioxide 21 L BUN 24 H Creatinine 1.3 H Glucose 130 H POC Glucose Calcium Phosphorus Magnesium AST 129 H ALT 61 H Total Creatine Kinase 3055 H CK-MB (CK-2) 22.4 H Troponin T 0.055 H Total Protein Albumin 3.6 L Triglycerides 235 H Cholesterol 220 H LDL Cholesterol Direct 142 H HDL Cholesterol 36 L Arterial Blood Glucose Arterial Blood Ionized Calcium Urine Creatinine Urine Total Protein 04/22/21 04/22/21 04/22/21 03:27 05:29 05:29 RBC Hgb 15.4 H Hct 45.8 H RDW 16.0 H Lymph % (Auto) 12.0 L [place] % (Auto) 8.0 H Lymph # (Auto) 1.1 L Seg Neutrophils % 76.3 H Seg Neuts % (Manual) Lymphocytes % (Manual) Monocytes % (Manual) Nucleated RBC % Lymphocytes # (Manual) D-Dimer Heparin Anti-Xa Level ABG pH POC ABG pCO2 POC ABG pO2 ABG pO2 ABG Hemoglobin ABG Oxyhemoglobin ABG Sodium ABG Potassium 4.7 H ABG Chloride 109.0 H ABG Glucose 155 H Carboxyhemoglobin 0.4 L Sodium Potassium 6.3 H* D Chloride Carbon Dioxide BUN 26 H Creatinine Glucose 134 H POC Glucose Calcium Phosphorus Magnesium AST 123 H ALT Total Creatine Kinase CK-MB (CK-2) Troponin T Total Protein Albumin 3.6 L Triglycerides Cholesterol LDL Cholesterol Direct HDL Cholesterol Arterial Blood Glucose 155 H Arterial Blood Ionized Calcium Urine Creatinine Urine Total Protein 04/22/21 04/22/21 04/22/21 13:03 13:25 17:30 RBC Hgb Hct RDW Lymph % (Auto) [place] % (Auto) Lymph # (Auto) Seg Neutrophils % Seg Neuts % (Manual) Lymphocytes % (Manual) Monocytes % (Manual) Nucleated RBC % Lymphocytes # (Manual) D-Dimer Heparin Anti-Xa Level ABG pH 7.343 L POC ABG pCO2 POC ABG pO2 ABG pO2 99.6 H ABG Hemoglobin ABG Oxyhemoglobin ABG Sodium ABG Potassium ABG Chloride ABG Glucose Carboxyhemoglobin Sodium Potassium Chloride Carbon Dioxide BUN Creatinine Glucose POC Glucose Calcium Phosphorus Magnesium AST ALT Total Creatine Kinase 2322 H CK-MB (CK-2) Troponin T Total Protein Albumin Triglycerides Cholesterol LDL Cholesterol Direct HDL Cholesterol Arterial Blood Glucose Arterial Blood Ionized Calcium Urine Creatinine 138.9 H Urine Total Protein 86 H 04/22/21 04/23/21 04/23/21 20:00 04:42 09:53 RBC Hgb Hct RDW Lymph % (Auto) [place] % (Auto) Lymph # (Auto) Seg Neutrophils % Seg Neuts % (Manual) Lymphocytes % (Manual) Monocytes % (Manual) Nucleated RBC % Lymphocytes # (Manual) D-Dimer Heparin Anti-Xa Level 2.00 H < 0.10 L ABG pH POC ABG pCO2 POC ABG pO2 ABG pO2 ABG Hemoglobin ABG Oxyhemoglobin 83.2 L ABG Sodium ABG Potassium ABG Chloride 113.0 H ABG Glucose 107 H Carboxyhemoglobin Sodium Potassium Chloride Carbon Dioxide BUN Creatinine Glucose POC Glucose Calcium Phosphorus Magnesium AST ALT Total Creatine Kinase CK-MB (CK-2) Troponin T Total Protein Albumin Triglycerides Cholesterol LDL Cholesterol Direct HDL Cholesterol Arterial Blood Glucose 107 H Arterial Blood Ionized Calcium Urine Creatinine Urine Total Protein 04/23/21 04/23/21 04/23/21 14:21 14:21 15:11 RBC Hgb Hct RDW 16.3 H Lymph % (Auto) [place] % (Auto) Lymph # (Auto) Seg Neutrophils % Seg Neuts % (Manual) Lymphocytes % (Manual) Monocytes % (Manual) Nucleated RBC % Lymphocytes # (Manual) D-Dimer Heparin Anti-Xa Level ABG pH POC ABG pCO2 POC ABG pO2 68.6 L ABG pO2 ABG Hemoglobin ABG Oxyhemoglobin 91.3 L ABG Sodium ABG Potassium ABG Chloride 113.0 H ABG Glucose 100 H Carboxyhemoglobin Sodium Potassium Chloride 113.1 H Carbon Dioxide 20 L BUN 18 H Creatinine Glucose POC Glucose Calcium 8.2 L Phosphorus Magnesium AST 59 H ALT Total Creatine Kinase 681 H CK-MB (CK-2) Troponin T Total Protein 5.5 L Albumin 2.3 L Triglycerides Cholesterol LDL Cholesterol Direct HDL Cholesterol Arterial Blood Glucose 100 H Arterial Blood Ionized Calcium Urine Creatinine Urine Total Protein 04/23/21 04/24/21 04/24/21 18:30 04:00 05:37 RBC Hgb Hct RDW Lymph % (Auto) [place] % (Auto) Lymph # (Auto) Seg Neutrophils % Seg Neuts % (Manual) Lymphocytes % (Manual) Monocytes % (Manual) Nucleated RBC % Lymphocytes # (Manual) D-Dimer Heparin Anti-Xa Level 1.84 H ABG pH POC ABG pCO2 POC ABG pO2 51.9 L ABG pO2 ABG Hemoglobin ABG Oxyhemoglobin 84.9 L ABG Sodium ABG Potassium ABG Chloride 112.0 H ABG Glucose 138 H Carboxyhemoglobin Sodium Potassium Chloride Carbon Dioxide BUN Creatinine Glucose POC Glucose 108 H Calcium Phosphorus Magnesium AST ALT Total Creatine Kinase CK-MB (CK-2) Troponin T Total Protein Albumin Triglycerides Cholesterol LDL Cholesterol Direct HDL Cholesterol Arterial Blood Glucose 138 H Arterial Blood Ionized Calcium Urine Creatinine Urine Total Protein 04/24/21 04/24/21 04/24/21 10:00 10:00 10:14 RBC Hgb Hct RDW 16.0 H Lymph % (Auto) [place] % (Auto) Lymph # (Auto) Seg Neutrophils % Seg Neuts % (Manual) Lymphocytes % (Manual) Monocytes % (Manual) Nucleated RBC % Lymphocytes # (Manual) D-Dimer Heparin Anti-Xa Level 0.84 H ABG pH POC ABG pCO2 POC ABG pO2 ABG pO2 ABG Hemoglobin ABG Oxyhemoglobin ABG Sodium ABG Potassium ABG Chloride ABG Glucose Carboxyhemoglobin Sodium Potassium Chloride 109.9 H Carbon Dioxide BUN Creatinine Glucose 118 H POC Glucose Calcium Phosphorus 2.00 L Magnesium 2.40 H AST 59 H ALT Total Creatine Kinase 396 H CK-MB (CK-2) Troponin T Total Protein 5.5 L Albumin 2.4 L Triglycerides Cholesterol LDL Cholesterol Direct HDL Cholesterol Arterial Blood Glucose Arterial Blood Ionized Calcium Urine Creatinine Urine Total Protein 04/24/21 04/24/21 04/24/21 11:14 12:00 15:23 RBC Hgb Hct RDW Lymph % (Auto) [place] % (Auto) Lymph # (Auto) Seg Neutrophils % Seg Neuts % (Manual) Lymphocytes % (Manual) Monocytes % (Manual) Nucleated RBC % Lymphocytes # (Manual) D-Dimer Heparin Anti-Xa Level ABG pH 7.287 L POC ABG pCO2 54.3 H POC ABG pO2 58.2 L 67.5 L ABG pO2 ABG Hemoglobin ABG Oxyhemoglobin 88.3 L 89.9 L ABG Sodium ABG Potassium ABG Chloride 111.0 H 110.0 H ABG Glucose 117 H 126 H Carboxyhemoglobin 0.3 L Sodium Potassium Chloride Carbon Dioxide BUN Creatinine Glucose POC Glucose 112 H Calcium Phosphorus Magnesium AST ALT Total Creatine Kinase CK-MB (CK-2) Troponin T Total Protein Albumin Triglycerides Cholesterol LDL Cholesterol Direct HDL Cholesterol Arterial Blood Glucose 117 H 126 H Arterial Blood Ionized Calcium Urine Creatinine Urine Total Protein 04/24/21 04/24/21 04/24/21 17:58 18:00 22:56 RBC Hgb Hct RDW Lymph % (Auto) [place] % (Auto) Lymph # (Auto) Seg Neutrophils % Seg Neuts % (Manual) Lymphocytes % (Manual) Monocytes % (Manual) Nucleated RBC % Lymphocytes # (Manual) D-Dimer Heparin Anti-Xa Level ABG pH POC ABG pCO2 POC ABG pO2 53.3 L ABG pO2 ABG Hemoglobin ABG Oxyhemoglobin 86.2 L ABG Sodium ABG Potassium ABG Chloride 111.0 H ABG Glucose 115 H Carboxyhemoglobin 0.4 L Sodium Potassium Chloride Carbon Dioxide BUN Creatinine Glucose POC Glucose 106 H 131 H Calcium Phosphorus Magnesium AST ALT Total Creatine Kinase CK-MB (CK-2) Troponin T Total Protein Albumin Triglycerides Cholesterol LDL Cholesterol Direct HDL Cholesterol Arterial Blood Glucose 115 H Arterial Blood Ionized Calcium Urine Creatinine Urine Total Protein 04/25/21 04/25/21 04/25/21 04:00 07:42 10:50 RBC Hgb Hct RDW Lymph % (Auto) [place] % (Auto) Lymph # (Auto) Seg Neutrophils % Seg Neuts % (Manual) Lymphocytes % (Manual) Monocytes % (Manual) Nucleated RBC % Lymphocytes # (Manual) D-Dimer Heparin Anti-Xa Level ABG pH POC ABG pCO2 POC ABG pO2 48.5 L 56.5 L ABG pO2 ABG Hemoglobin 10.6 L 10.4 L ABG Oxyhemoglobin 79.4 L 86.8 L ABG Sodium ABG Potassium ABG Chloride 111.0 H 112.0 H ABG Glucose 115 H 124 H Carboxyhemoglobin 0.2 L Sodium 146 H Potassium Chloride 111.3 H Carbon Dioxide BUN Creatinine Glucose 128 H POC Glucose Calcium Phosphorus Magnesium AST ALT Total Creatine Kinase CK-MB (CK-2) Troponin T Total Protein Albumin Triglycerides Cholesterol LDL Cholesterol Direct HDL Cholesterol Arterial Blood Glucose 115 H 124 H Arterial Blood Ionized Calcium Urine Creatinine Urine Total Protein 04/25/21 04/25/21 04/25/21 11:12 13:55 16:05 RBC Hgb Hct RDW Lymph % (Auto) [place] % (Auto) Lymph # (Auto) Seg Neutrophils % Seg Neuts % (Manual) Lymphocytes % (Manual) Monocytes % (Manual) Nucleated RBC % Lymphocytes # (Manual) D-Dimer Heparin Anti-Xa Level ABG pH POC ABG pCO2 POC ABG pO2 46.7 L 53.7 L ABG pO2 ABG Hemoglobin 10.7 L 11.1 L ABG Oxyhemoglobin 81.3 L 85.6 L ABG Sodium ABG Potassium ABG Chloride 111.0 H 111.0 H ABG Glucose 158 H 185 H Carboxyhemoglobin 0.4 L Sodium Potassium Chloride Carbon Dioxide BUN Creatinine Glucose POC Glucose 136 H Calcium Phosphorus Magnesium AST ALT Total Creatine Kinase CK-MB (CK-2) Troponin T Total Protein Albumin Triglycerides Cholesterol LDL Cholesterol Direct HDL Cholesterol Arterial Blood Glucose 158 H 185 H Arterial Blood Ionized Calcium Urine Creatinine Urine Total Protein 04/25/21 04/25/21 04/26/21 17:39 23:18 05:06 RBC Hgb Hct RDW Lymph % (Auto) [place] % (Auto) Lymph # (Auto) Seg Neutrophils % Seg Neuts % (Manual) Lymphocytes % (Manual) Monocytes % (Manual) Nucleated RBC % Lymphocytes # (Manual) D-Dimer Heparin Anti-Xa Level ABG pH POC ABG pCO2 POC ABG pO2 ABG pO2 ABG Hemoglobin ABG Oxyhemoglobin ABG Sodium ABG Potassium ABG Chloride ABG Glucose Carboxyhemoglobin Sodium Potassium Chloride Carbon Dioxide BUN Creatinine Glucose POC Glucose 155 H 158 H 134 H Calcium Phosphorus Magnesium AST ALT Total Creatine Kinase CK-MB (CK-2) Troponin T Total Protein Albumin Triglycerides Cholesterol LDL Cholesterol Direct HDL Cholesterol Arterial Blood Glucose Arterial Blood Ionized Calcium Urine Creatinine Urine Total Protein 04/26/21 04/26/21 04/26/21 05:22 12:20 13:16 RBC Hgb Hct RDW Lymph % (Auto) [place] % (Auto) Lymph # (Auto) Seg Neutrophils % Seg Neuts % (Manual) Lymphocytes % (Manual) Monocytes % (Manual) Nucleated RBC % Lymphocytes # (Manual) D-Dimer Heparin Anti-Xa Level ABG pH POC ABG pCO2 POC ABG pO2 52.2 L 53.9 L ABG pO2 ABG Hemoglobin 10.9 L 11.5 L ABG Oxyhemoglobin 86.5 L 86.4 L ABG Sodium 145.8 H ABG Potassium 4.6 H ABG Chloride 114.0 H 112.0 H ABG Glucose 144 H 162 H Carboxyhemoglobin 0.4 L 0.4 L Sodium Potassium Chloride Carbon Dioxide BUN Creatinine Glucose POC Glucose 160 H Calcium Phosphorus Magnesium AST ALT Total Creatine Kinase CK-MB (CK-2) Troponin T Total Protein Albumin Triglycerides Cholesterol LDL Cholesterol Direct HDL Cholesterol Arterial Blood Glucose 144 H 162 H Arterial Blood Ionized Calcium Urine Creatinine Urine Total Protein 04/26/21 04/26/21 04/26/21 14:09 18:42 23:30 RBC Hgb Hct RDW Lymph % (Auto) [place] % (Auto) Lymph # (Auto) Seg Neutrophils % Seg Neuts % (Manual) Lymphocytes % (Manual) Monocytes % (Manual) Nucleated RBC % Lymphocytes # (Manual) D-Dimer Heparin Anti-Xa Level ABG pH POC ABG pCO2 POC ABG pO2 55.3 L ABG pO2 ABG Hemoglobin 11.6 L ABG Oxyhemoglobin 87.2 L ABG Sodium 146.6 H ABG Potassium ABG Chloride 111.0 H ABG Glucose 165 H Carboxyhemoglobin Sodium Potassium Chloride Carbon Dioxide BUN Creatinine Glucose POC Glucose 161 H 163 H Calcium Phosphorus Magnesium AST ALT Total Creatine Kinase CK-MB (CK-2) Troponin T Total Protein Albumin Triglycerides Cholesterol LDL Cholesterol Direct HDL Cholesterol Arterial Blood Glucose 165 H Arterial Blood Ionized Calcium Urine Creatinine Urine Total Protein 04/27/21 04/27/21 04/27/21 03:51 05:14 06:25 RBC 3.64 L Hgb Hct RDW 16.2 H Lymph % (Auto) [place] % (Auto) Lymph # (Auto) Seg Neutrophils % Seg Neuts % (Manual) Lymphocytes % (Manual) Monocytes % (Manual) Nucleated RBC % Lymphocytes # (Manual) D-Dimer Heparin Anti-Xa Level ABG pH POC ABG pCO2 52.9 H POC ABG pO2 60.8 L ABG pO2 ABG Hemoglobin 11.9 L ABG Oxyhemoglobin 87.9 L ABG Sodium 147.8 H ABG Potassium ABG Chloride 111.0 H ABG Glucose 183 H Carboxyhemoglobin Sodium Potassium Chloride Carbon Dioxide BUN Creatinine Glucose POC Glucose 165 H Calcium Phosphorus Magnesium AST ALT Total Creatine Kinase CK-MB (CK-2) Troponin T Total Protein Albumin Triglycerides Cholesterol LDL Cholesterol Direct HDL Cholesterol Arterial Blood Glucose 183 H Arterial Blood Ionized Calcium Urine Creatinine Urine Total Protein 04/27/21 04/27/21 04/27/21 06:25 11:45 17:41 RBC Hgb Hct RDW Lymph % (Auto) [place] % (Auto) Lymph # (Auto) Seg Neutrophils % Seg Neuts % (Manual) Lymphocytes % (Manual) Monocytes % (Manual) Nucleated RBC % Lymphocytes # (Manual) D-Dimer Heparin Anti-Xa Level ABG pH POC ABG pCO2 POC ABG pO2 ABG pO2 ABG Hemoglobin ABG Oxyhemoglobin ABG Sodium ABG Potassium ABG Chloride ABG Glucose Carboxyhemoglobin Sodium 148 H Potassium 5.1 H D Chloride 109.0 H Carbon Dioxide BUN 35 H Creatinine Glucose 170 H POC Glucose 184 H 172 H Calcium Phosphorus Magnesium AST 48 H ALT Total Creatine Kinase CK-MB (CK-2) Troponin T Total Protein Albumin 2.4 L Triglycerides Cholesterol LDL Cholesterol Direct HDL Cholesterol Arterial Blood Glucose Arterial Blood Ionized Calcium Urine Creatinine Urine Total Protein 04/27/21 04/28/21 04/28/21 23:16 03:23 04:00 RBC Hgb Hct RDW Lymph % (Auto) [place] % (Auto) Lymph # (Auto) Seg Neutrophils % Seg Neuts % (Manual) Lymphocytes % (Manual) Monocytes % (Manual) Nucleated RBC % Lymphocytes # (Manual) D-Dimer Heparin Anti-Xa Level ABG pH POC ABG pCO2 55.9 H POC ABG pO2 76.2 L ABG pO2 ABG Hemoglobin 11.5 L ABG Oxyhemoglobin 92.9 L ABG Sodium 153.3 H ABG Potassium 3.2 L ABG Chloride 115.0 H ABG Glucose 154 H Carboxyhemoglobin Sodium 154 H Potassium 3.5 L D Chloride 114.4 H Carbon Dioxide 31 H BUN 32 H Creatinine Glucose 148 H POC Glucose 142 H Calcium Phosphorus Magnesium AST ALT Total Creatine Kinase CK-MB (CK-2) Troponin T Total Protein 6.0 L Albumin 2.4 L Triglycerides Cholesterol LDL Cholesterol Direct HDL Cholesterol Arterial Blood Glucose 154 H Arterial Blood Ionized Calcium Urine Creatinine Urine Total Protein 04/28/21 04/28/21 04/28/21 04:45 06:05 11:57 RBC Hgb Hct RDW 16.1 H Lymph % (Auto) [place] % (Auto) Lymph # (Auto) Seg Neutrophils % Seg Neuts % (Manual) Lymphocytes % (Manual) Monocytes % (Manual) Nucleated RBC % Lymphocytes # (Manual) D-Dimer Heparin Anti-Xa Level ABG pH POC ABG pCO2 POC ABG pO2 ABG pO2 ABG Hemoglobin ABG Oxyhemoglobin ABG Sodium ABG Potassium ABG Chloride ABG Glucose Carboxyhemoglobin Sodium Potassium Chloride Carbon Dioxide BUN Creatinine Glucose POC Glucose 153 H 109 H Calcium Phosphorus Magnesium AST ALT Total Creatine Kinase CK-MB (CK-2) Troponin T Total Protein Albumin Triglycerides Cholesterol LDL Cholesterol Direct HDL Cholesterol Arterial Blood Glucose Arterial Blood Ionized Calcium Urine Creatinine Urine Total Protein 04/28/21 04/28/21 04/29/21 17:39 23:58 03:51 RBC Hgb Hct RDW Lymph % (Auto) [place] % (Auto) Lymph # (Auto) Seg Neutrophils % Seg Neuts % (Manual) Lymphocytes % (Manual) Monocytes % (Manual) Nucleated RBC % Lymphocytes # (Manual) D-Dimer Heparin Anti-Xa Level ABG pH POC ABG pCO2 54.7 H POC ABG pO2 68.6 L ABG pO2 ABG Hemoglobin 11.9 L ABG Oxyhemoglobin 91.7 L ABG Sodium 148.2 H ABG Potassium ABG Chloride 112.0 H ABG Glucose 136 H Carboxyhemoglobin Sodium Potassium Chloride Carbon Dioxide BUN Creatinine Glucose POC Glucose 145 H 164 H Calcium Phosphorus Magnesium AST ALT Total Creatine Kinase CK-MB (CK-2) Troponin T Total Protein Albumin Triglycerides Cholesterol LDL Cholesterol Direct HDL Cholesterol Arterial Blood Glucose 136 H Arterial Blood Ionized Calcium Urine Creatinine Urine Total Protein 04/29/21 04/29/21 04/29/21 05:35 05:55 11:29 RBC Hgb Hct RDW Lymph % (Auto) [place] % (Auto) Lymph # (Auto) Seg Neutrophils % Seg Neuts % (Manual) Lymphocytes % (Manual) Monocytes % (Manual) Nucleated RBC % Lymphocytes # (Manual) D-Dimer Heparin Anti-Xa Level ABG pH POC ABG pCO2 POC ABG pO2 ABG pO2 ABG Hemoglobin ABG Oxyhemoglobin ABG Sodium ABG Potassium ABG Chloride ABG Glucose Carboxyhemoglobin Sodium 149 H Potassium Chloride 110.9 H Carbon Dioxide BUN 34 H Creatinine Glucose 136 H POC Glucose 128 H 206 H Calcium Phosphorus Magnesium AST ALT Total Creatine Kinase CK-MB (CK-2) Troponin T Total Protein Albumin Triglycerides Cholesterol LDL Cholesterol Direct HDL Cholesterol Arterial Blood Glucose Arterial Blood Ionized Calcium Urine Creatinine Urine Total Protein 04/29/21 04/29/21 04/30/21 18:04 23:42 00:55 RBC Hgb Hct RDW Lymph % (Auto) [place] % (Auto) Lymph # (Auto) Seg Neutrophils % Seg Neuts % (Manual) Lymphocytes % (Manual) Monocytes % (Manual) Nucleated RBC % Lymphocytes # (Manual) D-Dimer Heparin Anti-Xa Level ABG pH POC ABG pCO2 POC ABG pO2 ABG pO2 ABG Hemoglobin ABG Oxyhemoglobin ABG Sodium ABG Potassium ABG Chloride ABG Glucose Carboxyhemoglobin Sodium Potassium 5.1 H D Chloride Carbon Dioxide BUN Creatinine Glucose POC Glucose 146 H 146 H Calcium Phosphorus Magnesium AST ALT Total Creatine Kinase CK-MB (CK-2) Troponin T Total Protein Albumin Triglycerides Cholesterol LDL Cholesterol Direct HDL Cholesterol Arterial Blood Glucose Arterial Blood Ionized Calcium Urine Creatinine Urine Total Protein 04/30/21 04/30/21 04/30/21 05:00 05:34 07:40 RBC Hgb Hct RDW Lymph % (Auto) [place] % (Auto) Lymph # (Auto) Seg Neutrophils % Seg Neuts % (Manual) Lymphocytes % (Manual) Monocytes % (Manual) Nucleated RBC % Lymphocytes # (Manual) D-Dimer Heparin Anti-Xa Level ABG pH POC ABG pCO2 55.6 H POC ABG pO2 62.4 L ABG pO2 ABG Hemoglobin ABG Oxyhemoglobin 90.1 L ABG Sodium 146.8 H ABG Potassium ABG Chloride 109.0 H ABG Glucose 124 H Carboxyhemoglobin Sodium 149 H Potassium Chloride 109.5 H Carbon Dioxide 35 H BUN 33 H Creatinine Glucose 126 H POC Glucose 122 H Calcium Phosphorus Magnesium 2.60 H AST ALT Total Creatine Kinase CK-MB (CK-2) Troponin T Total Protein 5.8 L Albumin 2.2 L Triglycerides 332 H Cholesterol LDL Cholesterol Direct HDL Cholesterol Arterial Blood Glucose 124 H Arterial Blood Ionized Calcium Urine Creatinine Urine Total Protein 04/30/21 04/30/21 04/30/21 07:40 11:12 17:00 RBC Hgb Hct RDW 16.3 H Lymph % (Auto) [place] % (Auto) Lymph # (Auto) Seg Neutrophils % 88.4 H Seg Neuts % (Manual) 82.0 H Lymphocytes % (Manual) 5.0 L Monocytes % (Manual) Nucleated RBC % Lymphocytes # (Manual) 0.4 L D-Dimer Heparin Anti-Xa Level ABG pH POC ABG pCO2 POC ABG pO2 ABG pO2 ABG Hemoglobin ABG Oxyhemoglobin ABG Sodium ABG Potassium ABG Chloride ABG Glucose Carboxyhemoglobin Sodium Potassium Chloride Carbon Dioxide BUN Creatinine Glucose POC Glucose 127 H Calcium Phosphorus Magnesium AST ALT Total Creatine Kinase CK-MB (CK-2) Troponin T Total Protein Albumin Triglycerides 304 H Cholesterol LDL Cholesterol Direct HDL Cholesterol Arterial Blood Glucose Arterial Blood Ionized Calcium Urine Creatinine Urine Total Protein 04/30/21 04/30/21 05/01/21 18:17 23:25 03:33 RBC Hgb Hct RDW Lymph % (Auto) [place] % (Auto) Lymph # (Auto) Seg Neutrophils % Seg Neuts % (Manual) Lymphocytes % (Manual) Monocytes % (Manual) Nucleated RBC % Lymphocytes # (Manual) D-Dimer Heparin Anti-Xa Level ABG pH 7.275 L POC ABG pCO2 85.0 H POC ABG pO2 ABG pO2 ABG Hemoglobin ABG Oxyhemoglobin ABG Sodium ABG Potassium 5.0 H ABG Chloride ABG Glucose 150 H Carboxyhemoglobin Sodium Potassium Chloride Carbon Dioxide BUN Creatinine Glucose POC Glucose 151 H 143 H Calcium Phosphorus Magnesium AST ALT Total Creatine Kinase CK-MB (CK-2) Troponin T Total Protein Albumin Triglycerides Cholesterol LDL Cholesterol Direct HDL Cholesterol Arterial Blood Glucose 150 H Arterial Blood Ionized Calcium Urine Creatinine Urine Total Protein 05/01/21 05/01/21 05/01/21 04:55 05:08 05:08 RBC Hgb Hct RDW 16.7 H Lymph % (Auto) [place] % (Auto) Lymph # (Auto) Seg Neutrophils % Seg Neuts % (Manual) Lymphocytes % (Manual) Monocytes % (Manual) Nucleated RBC % Lymphocytes # (Manual) D-Dimer Heparin Anti-Xa Level ABG pH POC ABG pCO2 POC ABG pO2 ABG pO2 ABG Hemoglobin ABG Oxyhemoglobin ABG Sodium ABG Potassium ABG Chloride ABG Glucose Carboxyhemoglobin Sodium Potassium 5.3 H D Chloride Carbon Dioxide 36 H BUN 39 H Creatinine Glucose 150 H POC Glucose 138 H Calcium Phosphorus Magnesium AST ALT Total Creatine Kinase CK-MB (CK-2) Troponin T Total Protein Albumin Triglycerides Cholesterol LDL Cholesterol Direct HDL Cholesterol Arterial Blood Glucose Arterial Blood Ionized Calcium Urine Creatinine Urine Total Protein 05/01/21 05/01/21 05/01/21 11:46 14:30 17:08 RBC Hgb Hct RDW Lymph % (Auto) [place] % (Auto) Lymph # (Auto) Seg Neutrophils % Seg Neuts % (Manual) Lymphocytes % (Manual) Monocytes % (Manual) Nucleated RBC % Lymphocytes # (Manual) D-Dimer Heparin Anti-Xa Level ABG pH POC ABG pCO2 POC ABG pO2 ABG pO2 ABG Hemoglobin ABG Oxyhemoglobin ABG Sodium ABG Potassium ABG Chloride ABG Glucose Carboxyhemoglobin Sodium Potassium Chloride Carbon Dioxide BUN Creatinine Glucose POC Glucose 159 H 206 H Calcium Phosphorus Magnesium 2.60 H AST ALT Total Creatine Kinase CK-MB (CK-2) Troponin T Total Protein Albumin Triglycerides Cholesterol LDL Cholesterol Direct HDL Cholesterol Arterial Blood Glucose Arterial Blood Ionized Calcium Urine Creatinine Urine Total Protein 05/01/21 05/02/21 05/02/21 23:21 04:00 05:32 RBC Hgb Hct RDW Lymph % (Auto) [place] % (Auto) Lymph # (Auto) Seg Neutrophils % Seg Neuts % (Manual) Lymphocytes % (Manual) Monocytes % (Manual) Nucleated RBC % Lymphocytes # (Manual) D-Dimer Heparin Anti-Xa Level ABG pH 7.213 L POC ABG pCO2 123.0 H POC ABG pO2 69.9 L ABG pO2 ABG Hemoglobin ABG Oxyhemoglobin 90.0 L ABG Sodium 148.1 H ABG Potassium 5.2 H ABG Chloride ABG Glucose 205 H Carboxyhemoglobin 1.9 H Sodium Potassium Chloride Carbon Dioxide BUN Creatinine Glucose POC Glucose 176 H 184 H Calcium Phosphorus Magnesium AST ALT Total Creatine Kinase CK-MB (CK-2) Troponin T Total Protein Albumin Triglycerides Cholesterol LDL Cholesterol Direct HDL Cholesterol Arterial Blood Glucose 205 H Arterial Blood Ionized Calcium Urine Creatinine Urine Total Protein 05/02/21 05/02/21 05/02/21 06:57 06:57 08:00 RBC Hgb Hct RDW 17.5 H Lymph % (Auto) [place] % (Auto) Lymph # (Auto) Seg Neutrophils % Seg Neuts % (Manual) 84.0 H Lymphocytes % (Manual) 6.0 L Monocytes % (Manual) Nucleated RBC % 1.0 H Lymphocytes # (Manual) 0.6 L D-Dimer Heparin Anti-Xa Level ABG pH 7.267 L POC ABG pCO2 102.9 H POC ABG pO2 81.4 L ABG pO2 ABG Hemoglobin ABG Oxyhemoglobin 93.6 L ABG Sodium 148.0 H ABG Potassium 5.4 H ABG Chloride ABG Glucose 249 H Carboxyhemoglobin Sodium 148 H Potassium 5.6 H Chloride Carbon Dioxide 40 H BUN 36 H Creatinine Glucose 227 H POC Glucose Calcium Phosphorus 2.20 L Magnesium 2.80 H AST 41 H ALT Total Creatine Kinase CK-MB (CK-2) Troponin T Total Protein Albumin 2.7 L Triglycerides Cholesterol LDL Cholesterol Direct HDL Cholesterol Arterial Blood Glucose 249 H Arterial Blood Ionized Calcium Urine Creatinine Urine Total Protein 05/02/21 05/02/21 10:52 11:58 RBC Hgb Hct RDW Lymph % (Auto) [place] % (Auto) Lymph # (Auto) Seg Neutrophils % Seg Neuts % (Manual) Lymphocytes % (Manual) Monocytes % (Manual) Nucleated RBC % Lymphocytes # (Manual) D-Dimer Heparin Anti-Xa Level ABG pH 7.260 L POC ABG pCO2 99.9 H POC ABG pO2 74.9 L ABG pO2 ABG Hemoglobin ABG Oxyhemoglobin 92.1 L ABG Sodium 146.4 H ABG Potassium 5.7 H ABG Chloride ABG Glucose 266 H Carboxyhemoglobin Sodium Potassium Chloride Carbon Dioxide BUN Creatinine Glucose POC Glucose 268 H Calcium Phosphorus Magnesium AST ALT Total Creatine Kinase CK-MB (CK-2) Troponin T Total Protein Albumin Triglycerides Cholesterol LDL Cholesterol Direct HDL Cholesterol Arterial Blood Glucose 266 H Arterial Blood Ionized Calcium Urine Creatinine Urine Total Protein
[2021-05-02 16:05] LABS: BUN/Creatinine Ratio 43; Blood Urea Nitrogen 47 mg/dL (7-17); Calcium 10.1 mg/dL (8.4-10.2); Hemolysis Index 12
[2021-05-02] MEDS ORDERED: DEXTROSE 5% IN WATER 1,000 ML IV ONE (19:34)
[2021-05-02] MEDS ORDERED: fentaNYL 100 MCG/2 ML INJ IV ONE (19:53)
[2021-05-02] MEDS ORDERED: ADENOSINE 6 MG/2 ML INJ ONE (20:20)
[2021-05-02] MEDS ORDERED: ADENOSINE 6 MG/2 ML INJ IV ONE ×2 (20:30)
--- NOTE | 2021-05-02 20:43 | XRay Report ---
CHEST 1 VIEW 05/02/2021 7:36 PM INDICATION / CLINICAL INFORMATION: thu. COMPARISON: 05/02/2021 FINDINGS: SUPPORT DEVICES: Stable, satisfactory device positioning. HEART / MEDIASTINUM: No significant abnormality. LUNGS / PLEURA: Diffuse bilateral pulmonary opacities persist No pneumothorax. ADDITIONAL FINDINGS: No significant additional findings. IMPRESSION: No significant change Signer Name: Gordy Rebollar MD Signed: 05/02/2021 8:39 PM Workstation Name: [id number]
[2021-05-02] MEDS ORDERED: AMIODARONE 900 MG in DEXTROSE 5% IN WATER 482 ML IV SCH (21:00)
[2021-05-02] MEDS: VASOPRESSIN 20 UNIT in SODIUM CHLORIDE 0.9% 100 ML IV SCH (21:08)
[2021-05-02] MEDS: SENNOSIDES/DOCUSATE SODIUM 8.6/50 MG TAB FEEDTUBE SCH (21:09)
[2021-05-03] MEDS: INSULIN LISPRO 100 UNIT/ML SUB-Q SCH ×4 (00:30→18:10)
[2021-05-03] MEDS: NORepinephrine/NS 4 MG-250 ML 4 MG/250 ML BAG IV SCH ×2 (02:02→13:59)
[2021-05-03] MEDS: methylPREDNISolone Sod Succinate 40 MG/1 ML INJ IV SCH ×5 (02:02→18:09)
--- NOTE | 2021-05-03 02:38 | XRay Report ---
ABDOMEN 1 VIEW INDICATION / CLINICAL INFORMATION: Abdominal distention with NG tube residuals. COMPARISON: KUB from 04/28/2021 FINDINGS: TUBES / LINES: An NG tube terminates over the gastric body. BOWEL GAS PATTERN: There is generalized colonic/small bowel distention. FREE AIR / EXTRALUMINAL GAS: None seen. ADDITIONAL FINDINGS: Bilateral pulmonary opacities are unchanged. IMPRESSION: Satisfactory positioning of the NG tube with findings suggestive of an ileus. Signer Name: Kash Elmore MD Signed: 05/03/2021 2:33 AM Workstation Name: [id number]
[2021-05-03] MEDS: ENOXAPARIN 80 MG/0.8 ML INJ SUB-Q SCH ×2 (02:51→13:42)
[2021-05-03] MEDS: FREE WATER PO SCH ×6 (03:46→23:45)
[2021-05-03 04:11] LABS: Hematocrit 37.8 % (30.3-42.9); Hemoglobin 11.7 gm/dl (10.1-14.3); Mean Corpuscular HGB Conc 31 % (30-34); Mean Corpuscular Volume 98 fl (79-97); Platelet Count 279 K/mm3 (140-440); Red Blood Count 3.85 M/mm3 (3.65-5.03); Red Cell Distribution Width 17.1 % (13.2-15.2)
[2021-05-03 04:35] LABS: Albumin 2.4 g/dL (3.9-5); Calcium 9.8 mg/dL (8.4-10.2)
[2021-05-03 05:40] LABS: Band Neutrophils # (Manual) 1.9 K/mm3; Myelocytes # (Manual) 0.2 K/mm3; Total Cells Counted 100
[2021-05-03 05:44] LABS: Platelet Estimate Consistent w Auto
[2021-05-03 05:45] LABS: Giant Platelets Few
[2021-05-03] MEDS: VASOPRESSIN 20 UNIT in SODIUM CHLORIDE 0.9% 100 ML IV SCH ×2 (06:28→17:31)
[2021-05-03] MEDS: ARFORMOTEROL 15 MCG/2 ML NEBU IH SCH ×2 (07:29→20:04)
[2021-05-03] MEDS: BUDESONIDE 0.5 MG/2 ML NEBU IH SCH ×2 (07:29→20:04)
[2021-05-03] MEDS: FAMOTIDINE 20 MG TAB PO SCH (10:08)
[2021-05-03] MEDS: ASPIRIN 325 MG TAB PO SCH (10:08)
[2021-05-03] MEDS: levETIRAcetam 500 MG/5 ML ORAL LIQD PO SCH ×2 (10:08→21:33)
[2021-05-03] MEDS: QUEtiapine 25 MG TAB PO SCH ×2 (10:12→21:33)
[2021-05-03] MEDS ORDERED: LACTATED RINGERS 1,000 ML IV ONE ×3 (12:00→15:56)
[2021-05-03] MEDS ORDERED: INSULIN REGULAR, HUMAN 100 UNITS/1 ML IV ONE (12:25)
[2021-05-03] MEDS ORDERED: ALBUTEROL 2.5 MG/3 ML NEBU IH STA (12:25)
[2021-05-03] MEDS ORDERED: DEXTROSE 50% IN WATER (25GM) 50 ML SYRINGE IV PRN (12:25)
[2021-05-03] MEDS ORDERED: CALCIUM CHLORIDE 1,000 MG/10 ML SDV IVP STA (12:26)
[2021-05-03] MEDS ORDERED: SODIUM BICARB 8.4% 50 MEQ/50 ML SYRINGE IV STA (12:31)
--- NOTE | 2021-05-03 12:35 | Progress Note ---
<MATHIEUIAIN RUTHERFORD Babita - Last Filed: 05/03/21 16:13> Assessment and Plan Assessment and plan: Per ER... 7- The patient is a 66-year-old female present with a chief complaint of altered mental status. Per EMS the patient has a history of previous CVA with left- sided weakness. Family reported that the patient developed increased left-sided weakness 3 days ago. The patient was taken to the emergency department but refused to be seen so family brought the patient back home. The following day the patient "stopped speaking" and family eventually brought the patient into the ED today as there was no improvement. Patient opens her eyes to sternal rub and answers some questions but appears confused. First oxygen saturation in ER was 69%. Pt intubated for airway protection and hypoxia believed to be due to unprotected airway post seizure. Pt was ER hold and arrived to ICU overnight PMH HTN HLD CVA 2 Y AGO with left sided residual weakness NOK daughter (see previous encounter note 07/2019) 04-30 NO ACUTE EVENTS OVERNIGHT; diuresis with 40 mg IV lasix 05-01 no acute events overnight; diuresis with 40 mg IV lasix 05-02 diuresis with lasix 40 mg IV during the day - pt still grossly pos per I/O; and pt weight overnight pt persistently tachycardic given adenosine and amio gtt NEURO hx CVA with l sided weakness; new onset sz; metabolic encephalopathy new onset seizures - mon kera PERRL; no commands but remains sedated on prop and ativan CT head on admit- IMPRESSION: Encephalomalacia in the right temporal lobe, frontal lobe; no acute/subacute parenchymal lesions MRI Encephalomalacia in the right cerebral hemisphere - see report will need repeat CT per neuro when PEEP is dec; Dr Arrington has told RN's not to take to CT on level of vent support she is requiring sedated on propofol and ativan daily SAT limited by hypoxia RAAS goal neg 4 seroquel BID; following QT case management following family updated daily on plan of care CV: hx htn on norvasc at home per EMR; ST; hypotension likely volume depletion/sepsis or combination of the 2 asa/statin echo 04/22 see report -normal biV function PRN hydral had inc in HR yesterday afternoon she appeared volume up on exam and had been diuresed the last [address] persisted and she was given adenosine and amio she also had dec MAP and is now on vaso and NE (yesterday they were off) no EKG or monitor findings of afib/flutter/svt; appears ST 2L LR give pos. passive leg raise BP volume responsive note Cr did bump up overnight as well; perhaps intravascular depletion with lasix is the culprit; I/O likely not accurate given no corral also concerning for infectious etiology- lactate inc will reculture today RESP acute resp failure with PE on CTA; refractory hypoxia requiring MV; permissive hypercapnia to Ph of 7.2 intubated in ER; remains ventilated ACPRVC [id number] permissive hypercapnia see iview for titration sat goal 88 pH goal 7.2 1600 ABG noted- 100 bicarb/vent change per RT notes CT noted - a/c lung disease evident with LPA PE's noted US BLE neg for DVT trending lactate/ABG and chest xrays continue nebs continue solumedrol will likely need trach- today vent day 11 GI -illeus TF at goal -- held this afternoon pt vomited NG to LIS nutrition following PPI bowel reg - colace/senna/miralax concern for illeus- will give kaexalate x 4 (K also elevated) if no BM overnight consider Mg citrate in the AM BM last night KUB ordered for AM -LIZBETH worsening; hyperNa; hyperK; lactic acidosis purewik strict I/O- likely inaccurate given purwik trend and replace electrolytes as needed trend BUN/CR/CK nephrology following - last seen 04/25 will reconsult given inc Cr/K/Na 2L LR given urine electrolytes ordered K medically treated x 1 this AM; kaexalate also ordered for 1 day (pt also has illeus) afternoon labs ordered for 1500 FWF for Na - trend Na AM labs ordered HEME- Pulmonary emboli VTE on lovenox BID trending coags/Xa trend CBC no bleeding on exam LE dopplers neg for DVT; pos CTA for PE on admit ID- lactic acidosis covid neg afebrile but lactic acid high and pt now on NE and vaso; also ST on monitor will reculture today to ro infectious source of these findings vanc/cefipime started given concern for infectious etiology of her symptoms; narrow as appropriate continue to trend temp and WBC curve continuing methylpred ENDO stress hyperglycemia; obese blood glucose monitoring avoid hypoglycemia SSI PRN The high probability of a clinically significant, sudden or life threatening deterioration of the [respiratory] system(s) required my full and direct attention, intervention and personal management. The aggregate critical care time was [120] minutes. This time is in addition to time spent performing reported procedures but includes the following: [x] Data Review and interpretation [x] Patient assessment and monitoring of vital signs [x] Documentation [x] Medication orders and management Disposition Plan: tbd Total Time Spent with Patient (Minutes): 120 History Interval history: tachy to 150 overnight; looks like SR on monitor; no 12 lead noted; adenosine and amio given Hospitalist Physical - Constitutional Vitals: Temp Pulse Resp BP Pulse Ox 99.1 F 126 H 21 123/77 92 05/03/21 11:46 05/03/21 11:30 05/03/21 11:30 05/03/21 11:30 05/03/21 11:30 General appearance: Present: no acute distress, well-nourished, other (Sedated on vent) - EENT Eyes: Present: PERRL ENT: clear oral mucosa - Neck Neck: Present: supple - Respiratory Respiratory effort: normal - Cardiovascular Rhythm: regular Heart Sounds: Present: S1 & S2 - Extremities Extremity abnormal: edema Peripheral Pulses: within normal limits - Abdominal General gastrointestinal: deferred - Integumentary Integumentary: Present: clear, warm, dry - Psychiatric Psychiatric: other - Neurologic Neurologic: other - Allied Health Allied health notes reviewed: nursing, social work, case management HEART Score - HEART Score Age: 45-65 Risk factors: 1-2 risk factors Troponin: Troponin T 0.055 ng/mL (0.00-0.029) H 04/21/21 16:32 - Critical Actions Critical Actions: 0-3 pts:0.9-1.7%risk of adverse cardiac event.Candidate for discharge Results - Labs CBC & Chem 7: 05/03/21 03:45 05/03/21 03:45 Labs: Laboratory Last Values WBC 8.6 K/mm3 (4.5-11.0) 05/03/21 03:45 RBC 3.85 M/mm3 (3.65-5.03) 05/03/21 03:45 Hgb 11.7 gm/dl (10.1-14.3) 05/03/21 03:45 Hct 37.8 % (30.3-42.9) 05/03/21 03:45 MCV 98 fl (79-97) H 05/03/21 03:45 MCH 30 pg (28-32) 05/03/21 03:45 MCHC 31 % (30-34) 05/03/21 03:45 RDW 17.1 % (13.2-15.2) H 05/03/21 03:45 Plt Count 279 K/mm3 (140-440) 05/03/21 03:45 Lymph % (Auto) 12.0 % (13.4-35.0) L 04/22/21 05:29 [place] % (Auto) 2.8 % (0.0-7.3) 04/30/21 07:40 Eos % (Auto) 0.9 % (0.0-4.3) 04/30/21 07:40 Baso % (Auto) 0.7 % (0.0-1.8) 04/22/21 05:29 Lymph # (Auto) 1.1 K/mm3 (1.2-5.4) L 04/22/21 05:29 [place] # (Auto) 0.2 K/mm3 (0.0-0.8) 04/30/21 07:40 Eos # (Auto) 0.1 K/mm3 (0.0-0.4) 04/30/21 07:40 Baso # (Auto) 0.0 K/mm3 (0.0-0.1) 04/30/21 07:40 Add Manual Diff Complete 05/03/21 03:45 Total Counted 100 05/03/21 03:45 Seg Neutrophils % 88.4 % (40.0-70.0) H 04/30/21 07:40 Seg Neuts % (Manual) 63.0 % (40.0-70.0) 05/03/21 03:45 Band Neutrophils % 22.0 % 05/03/21 03:45 Lymphocytes % (Manual) 9.0 % (13.4-35.0) L 05/03/21 03:45 Reactive Lymphs % (Man) 2.0 % 05/03/21 03:45 Monocytes % (Manual) 2.0 % (0.0-7.3) 05/03/21 03:45 Eosinophils % (Manual) 1.0 % (0.0-4.3) 04/30/21 07:40 Metamyelocytes % 3.0 % 05/02/21 06:57 Myelocytes % 2.0 % 05/03/21 03:45 Nucleated RBC % 6.0 % (0.0-0.9) H 05/03/21 03:45 Seg Neutrophils # 7.5 K/mm3 (1.8-7.7) 04/30/21 07:40 Seg Neutrophils # Man 5.4 K/mm3 (1.8-7.7) 05/03/21 03:45 Band Neutrophils # 1.9 K/mm3 05/03/21 03:45 Lymphocytes # (Manual) 0.8 K/mm3 (1.2-5.4) L 05/03/21 03:45 Abs React Lymphs (Man) 0.2 K/mm3 05/03/21 03:45 Monocytes # (Manual) 0.2 K/mm3 (0.0-0.8) 05/03/21 03:45 Eosinophils # (Manual) 0.0 K/mm3 (0.0-0.4) 05/03/21 03:45 Basophils # (Manual) 0.0 K/mm3 (0.0-0.1) 05/03/21 03:45 Metamyelocytes # 0.0 K/mm3 05/03/21 03:45 Myelocytes # 0.2 K/mm3 05/03/21 03:45 Promyelocytes # 0.0 K/mm3 05/03/21 03:45 Blast Cells # 0.0 K/mm3 05/03/21 03:45 WBC Morphology Not Reportable 05/03/21 03:45 Hypersegmented Neuts Not Reportable 05/03/21 03:45 Hyposegmented Neuts Not Reportable 05/03/21 03:45 Hypogranular Neuts Not Reportable 05/03/21 03:45 Smudge Cells Not Reportable 05/03/21 03:45 Toxic Granulation Not Reportable 05/03/21 03:45 Toxic Vacuolation Not Reportable 05/03/21 03:45 Dohle Bodies Not Reportable 05/03/21 03:45 Pelger-Huet Anomaly Not Reportable 05/03/21 03:45 Brenda Rods Not Reportable 05/03/21 03:45 Platelet Estimate Consistent w auto 05/03/21 03:45 Clumped Platelets Not Reportable 05/03/21 03:45 Plt Clumps, EDTA Not Reportable 05/03/21 03:45 Large Platelets Not Reportable 05/03/21 03:45 Giant Platelets Few 05/03/21 03:45 Platelet Satelliting Not Reportable 05/03/21 03:45 Plt Morphology Comment Not Reportable 05/03/21 03:45 RBC Morphology Not Reportable 05/03/21 03:45 Dimorphic RBCs Not Reportable 05/03/21 03:45 Polychromasia Not Reportable 05/03/21 03:45 Hypochromasia Not Reportable 05/03/21 03:45 Poikilocytosis Not Reportable 05/03/21 03:45 Anisocytosis Not Reportable 05/03/21 03:45 Microcytosis Not Reportable 05/03/21 03:45 Macrocytosis Not Reportable 05/03/21 03:45 Spherocytes Not Reportable 05/03/21 03:45 Pappenheimer Bodies Not Reportable 05/03/21 03:45 Sickle Cells Not Reportable 05/03/21 03:45 Target Cells Not Reportable 05/03/21 03:45 Tear Drop Cells Not Reportable 05/03/21 03:45 Ovalocytes Not Reportable 05/03/21 03:45 Helmet Cells Not Reportable 05/03/21 03:45 Payan-Dewitt Bodies Not Reportable 05/03/21 03:45 [place]worth Rings Not Reportable 05/03/21 03:45 Chay Cells Not Reportable 05/03/21 03:45 Bite Cells Not Reportable 05/03/21 03:45 Crenated Cell Not Reportable 05/03/21 03:45 Elliptocytes Not Reportable 05/03/21 03:45 Acanthocytes (Spur) Not Reportable 05/03/21 03:45 Rouleaux Not Reportable 05/03/21 03:45 Hemoglobin C Crystals Not Reportable 05/03/21 03:45 Schistocytes Not Reportable 05/03/21 03:45 Malaria parasites Not Reportable 05/03/21 03:45 Uli Bodies Not Reportable 05/03/21 03:45 Hem Pathologist Commnt No 05/03/21 03:45 PT 13.2 Sec. (12.2-14.9) 04/22/21 00:32 INR 0.95 (0.87-1.13) 04/22/21 00:32 APTT 29.2 Sec. (24.2-36.6) 04/22/21 00:32 D-Dimer 1522.26 ng/mlDDU (0-234) H 04/21/21 16:30 Heparin Anti-Xa Level 0.84 U.I./ml (0.3-0.7) H 04/24/21 10:14 ABG pH 7.237 (7.320-7.450) L 05/03/21 04:00 POC ABG pCO2 99.9 mmHg (32.0-48.0) H 05/03/21 04:00 ABG pCO2 46.0 mm Hg 04/22/21 17:30 POC ABG pO2 74.8 mmHg (83-108) L 05/03/21 04:00 ABG pO2 99.6 mm Hg (80.0-90.0) H 04/22/21 17:30 POC ABG HCO3 41.6 05/03/21 04:00 ABG HCO3 24.4 mmol/L (20.0-26.0) 04/22/21 17:30 ABG O2 Saturation 93.6 (0-100) 05/03/21 04:00 ABG O2 Content 19.9 (0.0-44) 04/22/21 17:30 POC ABG Base Excess 10.6 05/03/21 04:00 ABG Base Excess -1.6 mmol/L (-2.0-3.0) 04/22/21 17:30 ABG Hemoglobin 11.9 (12.0-17.5) L 05/03/21 04:00 ABG Oxyhemoglobin 91.9 (94-98) L 05/03/21 04:00 ABG Carboxyhemoglobin 0.9 % (0.0-5.0) 04/22/21 17:30 ABG Methemoglobin 0.3 (0.0-1.5) 05/03/21 04:00 ABG Sodium 147.0 mmol/L (136.0-145.0) H 05/03/21 04:00 ABG Potassium 5.2 mmol/L (3.40-4.50) H 05/03/21 04:00 ABG Chloride 104.0 mmol/L (98-107) 05/03/21 04:00 ABG Glucose 196 mg/dL (65-95) H 05/03/21 04:00 Oxyhemoglobin 95.9 % (95.0-99.0) 04/22/21 17:30 Carboxyhemoglobin 1.5 (0.5-1.5) 05/03/21 04:00 FiO2 100 % 04/22/21 17:30 FiO2 % 100.0 05/03/21 04:00 Sodium 151 mmol/L (137-145) H 05/03/21 03:45 Potassium 5.7 mmol/L (3.6-5.0) H 05/03/21 03:45 Chloride 103.5 mmol/L (98-107) 05/03/21 03:45 Carbon Dioxide 40 mmol/L (22-30) H 05/03/21 03:45 Anion Gap 13 mmol/L 05/03/21 03:45 BUN 68 mg/dL (7-17) H 05/03/21 03:45 Creatinine 1.8 mg/dL (0.6-1.2) H D 05/03/21 03:45 Estimated GFR 34 ml/min 05/03/21 03:45 BUN/Creatinine Ratio 38 % 05/03/21 03:45 Glucose 200 mg/dL (65-100) H 05/03/21 03:45 POC Glucose 197 mg/dL (70-105) H 05/03/21 11:36 Lactic Acid 2.20 mmol/L (0.7-2.0) H* 05/03/21 10:21 Calcium 9.8 mg/dL (8.4-10.2) 05/03/21 03:45 Phosphorus 4.10 mg/dL (2.5-4.5) D 05/03/21 03:45 Magnesium 3.10 mg/dL (1.7-2.3) H 05/03/21 03:45 Total Bilirubin 0.40 mg/dL (0.1-1.2) 05/03/21 03:45 AST 42 units/L (5-40) H 05/03/21 03:45 ALT 51 units/L (7-56) 05/03/21 03:45 Alkaline Phosphatase 109 units/L (35-129) 05/03/21 03:45 Ammonia 58.0 umol/L (25-60) 04/28/21 04:45 Total Creatine Kinase 32 units/L (30-135) 05/03/21 03:45 CK-MB (CK-2) 22.4 ng/mL (0.0-4.0) H 04/21/21 16:32 CK-MB (CK-2) Rel Index 0.7 (0-4) 04/21/21 16:32 Troponin T 0.055 ng/mL (0.00-0.029) H 04/21/21 16:32 Total Protein 6.3 g/dL (6.3-8.2) 05/03/21 03:45 Albumin 2.4 g/dL (3.9-5) L 05/03/21 03:45 Albumin/Globulin Ratio 0.6 % 05/03/21 03:45 Triglycerides 304 mg/dL (2-149) H 04/30/21 17:00 Cholesterol 220 mg/dL (50-199) H 04/21/21 16:32 LDL Cholesterol Direct 142 mg/dL (50-130) H 04/21/21 16:32 HDL Cholesterol 36 mg/dL (40-59) L 04/21/21 16:32 Cholesterol/HDL Ratio 6.11 % 04/21/21 16:32 TSH 0.051 mlU/mL (0.270-4.200) L 05/03/21 06:05 Free T4 1.05 ng/dL (0.76-1.46) 04/21/21 16:32 Arterial Blood Glucose 196 mg/dL (65-95) H 05/03/21 04:00 Arterial Blood Ionized Calcium 4.8 mg/dL (4.6-5.3) 05/03/21 04:00 Urine Color Yellow (Yellow) 04/21/21 Unknown Urine Turbidity Clear (Clear) 04/21/21 Unknown Urine pH 5.0 (5.0-7.0) 04/21/21 Unknown Ur Specific [place] 1.014 (1.003-1.030) 04/21/21 Unknown Urine Protein 100 mg/dl mg/dL (Negative) 04/21/21 Unknown Urine Glucose (UA) Neg mg/dL (Negative) 04/21/21 Unknown Urine Ketones Tr mg/dL (Negative) 04/21/21 Unknown Urine Blood Lg (Negative) 04/21/21 Unknown Urine Nitrite Neg (Negative) 04/21/21 Unknown Urine Bilirubin Neg (Negative) 04/21/21 Unknown Urine Urobilinogen 2.0 mg/dL (<2.0) 04/21/21 Unknown Ur Leukocyte Esterase Neg (Negative) 04/21/21 Unknown Urine WBC (Auto) 5.0 /HPF (0.0-6.0) 04/21/21 Unknown Urine RBC (Auto) 1.0 /HPF (0.0-6.0) 04/21/21 Unknown U Epithel Cells (Auto) 1.0 /HPF (0-13.0) 04/21/21 Unknown Urine Mucus Few /HPF 04/21/21 Unknown Urine Creatinine 138.9 mg/dL (0.1-20.0) H 04/22/21 13:03 Urine Total Protein 86 mg/dL (5-11.8) H 04/22/21 13:03 Urine Opiates Screen Negative 04/21/21 Unknown Urine Methadone Screen Negative 04/21/21 Unknown Ur Barbiturates Screen Negative 04/21/21 Unknown Ur Phencyclidine Scrn Negative 04/21/21 Unknown Ur Amphetamines Screen Negative 04/21/21 Unknown U Benzodiazepines Scrn Negative 04/21/21 Unknown Urine Cocaine Screen Negative 04/21/21 Unknown U Marijuana (THC) Screen Negative 04/21/21 Unknown Drugs of Abuse Note Disclamer 04/21/21 Unknown Plasma/Serum Alcohol < 0.01 % (0-0.07) 04/21/21 16:32 Coronavirus (PCR) Negative (Negative) 04/23/21 Unknown [place]ral/IV: Voiding Method Indwelling Catheter Active Medications - Current Medications Current Medications: Generic Name Dose Route Start Last Admin Trade Name Freq PRN Reason Stop Dose Admin Acetaminophen 650 mg 04/21/21 21:11 04/28/21 16:30 Acetaminophen 325 Mg Tab PO 650 mg Q4H PRN Administration Pain MILD(1-3)/Fever >100.5/DICKINSON Lipase/Protease/Amylase 1 each 04/22/21 10:51 Lipase 10,500/Protease 25,000/Amylase 43,750 (Units) Dr Cap FEEDTUBE PRN PRN For Clogged Feeding Tube Arformoterol Tartrate 15 mcg 04/29/21 20:00 05/03/21 07:29 Arformoterol 15 Mcg/2 Ml Nebu IH 15 mcg Q12HRT MINOR Administration Aspirin 325 mg 05/01/21 13:00 05/03/21 10:08 Aspirin 325 Mg Tab PO 325 mg QDAY MINOR Administration Atorvastatin Calcium 40 mg 05/01/21 22:00 05/02/21 21:10 Atorvastatin 40 Mg Tab PO 40 mg QHS MINOR Administration Budesonide 0.5 mg 04/29/21 20:00 05/03/21 07:29 Budesonide 0.5 Mg/2 Ml Nebu IH 0.5 mg Q12HRT MINOR Administration Dextrose 50 ml 05/03/21 12:25 Dextrose 50% In Water (25gm) 50 Ml Syringe IV Q30MIN PRN Hypoglycemia Protocol Enoxaparin Sodium 80 mg 04/29/21 14:00 05/03/21 02:51 Enoxaparin 80 Mg/0.8 Ml Inj SUB-Q 80 mg Q12H MINOR Administration Famotidine 20 mg 05/04/21 10:00 Famotidine 20 Mg Tab PO DAILY MINOR Hydralazine HCl 10 mg 04/29/21 12:23 Hydralazine 20 Mg/1 Ml Inj IV Q4H PRN Hypertension Hydrophilic Ointment 1 applic 04/21/21 15:46 Lip Therapy Vaseline TP Q2HR PRN Dry Lips Propofol 1,000 mg in 100 mls @ 2.19 mls/hr 04/26/21 11:00 05/03/21 10:08 Diprivan 10 Mg/Ml IV 10 mcg/kg/min TITR MINOR 4.38 mls/hr Administration Protocol 5 MCG/KG/MIN Lorazepam 100 mg/ Sodium 100 mls @ 1 mls/hr 04/30/21 11:00 05/01/21 21:37 Chloride/ Miscellaneous IV 2 mg/hr Information TITR MINOR 2 mls/hr Administration Protocol 1 MG/HR Vasopressin 20 unit/ Sodium 101 mls @ 9.09 mls/hr 05/02/21 21:00 05/03/21 06:28 Chloride IV 0.03 units/min TITR MINOR 9.09 mls/hr Administration Protocol 0.03 UNITS/MIN Norepinephrine 4 mg in 250 mls @ 7.5 mls/hr 05/03/21 02:00 05/03/21 10:07 Levophed Drip 4 Mg/Ns 250 Ml IV 6 mcg/min TITR MINOR 22.5 mls/hr Titration Protocol 2 MCG/MIN Lactated Ringer's 1,000 mls @ 999 mls/hr 05/03/21 12:00 05/03/21 12:06 Lactated Ringers IV 05/03/21 13:00 999 mls/hr BOLUS ONE Administration Lactated Ringer's 1,000 mls @ 999 mls/hr 05/03/21 12:30 Lactated Ringers IV 05/03/21 13:30 BOLUS ONE Insulin Human Lispro 0 unit 05/03/21 00:00 05/03/21 12:10 Insulin Lispro 100 Unit/Ml SUB-Q 2 unit Q6HR MINOR Administration Protocol Levetiracetam 750 mg 04/25/21 10:00 05/03/21 10:08 Levetiracetam 500 Mg/5 Ml Oral Liqd PO 750 mg BID MINOR Administration Methylprednisolone Sodium Succinate 60 mg 04/28/21 06:00 05/03/21 12:12 Methylprednisolone Sod Succinate 40 Mg/1 Ml Inj IV 60 mg Q6H MINOR Administration Multi-Ingred Cream/Lotion/Oil/Oint 1 applic 04/21/21 15:46 Mineral Oil/Petrolatum, White Ophth Oint 3.5 Gm OU Q4HR PRN Dry Eye(s) Polyethylene Glycol 17 gm 05/02/21 15:00 Polyethylene Glycol 3350 17 Gm Powder PO QDAY PRN Constipation Quetiapine Fumarate 25 mg 04/30/21 11:00 05/03/21 10:12 Quetiapine 25 Mg Tab PO 25 mg BID MINOR Administration Senna/Docusate Sodium 1 tab 04/26/21 22:00 05/02/21 21:09 Sennosides/Docusate Sodium 8.6/50 Mg Tab FEEDTUBE 1 tab QHS MINOR Administration Simple Syrup 15 ml 04/22/21 10:51 Simple Syrup 15 Ml FEEDTUBE PRN PRN Hypoglycemia Simple Syrup 30 ml 04/22/21 10:51 Simple Syrup 15 Ml FEEDTUBE PRN PRN Hypoglycemia Sodium Bicarbonate 325 mg 04/22/21 10:51 Sodium Bicarbonate 325 Mg Tab FEEDTUBE PRN PRN For Clogged Feeding Tube Sodium Chloride 10 ml 04/21/21 22:00 05/03/21 10:12 Sodium Chloride 0.9% 10 Ml Flush Syringe IV 10 ml BID MINOR Administration Sodium Chloride 10 ml 04/21/21 21:11 04/27/21 02:54 Sodium Chloride 0.9% 10 Ml Flush Syringe IV 10 ml PRN PRN Administration LINE FLUSH Sodium Polystyrene Sulfonate 60 gm 05/03/21 13:00 Sodium Polystyrene 15 Gm/60 Ml Oral Liqd PO 05/04/21 13:00 Q4H MINOR Nutrition/Malnutrition Assess - Dietary Evaluation Nutrition/Malnutrition Findings: Nutrition Notes Start: 04/22/21 10:45 Freq: Status: Active Protocol: Document 05/01/21 12:27 (Rec: 05/01/21 12:30 [email or web address]) Nutrition Notes Initial or Follow up Reassessment Current Diagnosis Acute Kidney Injury, Hypertension,Stroke, Hyperlipidemia Other Pertinent Diagnosis New onset seizures, AMS, pulmonary embolism Current Diet TF - Nepro 35ml/hr Labs/Tests K 5.3 BUN 39 Pertinent Medications Solu medrol Height 5 ft 9 in Weight 79 kg [place] Body Weight (kg) 65.90 BMI 25.7 Weight change and time frame wt flucuations Weight Status Appropriate Subjective/Other Information Pt tolerating TF per RN. changed flush to 250 ml q4h. Percent of energy/protein needs met: 89% energy 71% pro Burn Absent Trauma Absent Minimum of two criteria No #1 Nutrition Diagnosis Inadequate oral intake Diagnosis Progress(for reassessment Continues documentation) Is patient on ventilator? Yes Is Patient Ambulatory and/or Out of Bed No REE-([facility]-confined to bed) 7454.069 Calculation Used for Recommendations [facility] Additional Notes Pro needs 1.2-2g/k-159g/ day Fluid needs 1ml/kcal Nutrition Intervention Nutrition Support: Continue Nepro at 35ml/hr with 150ml water flush q4h. Kcal 1,512 Protein (gm) 68 Carbohydrates (gm) 135 Fat (gm) 81 Fluid (mL) 611 Fiber (gm) 11 Goal #1 TF tolerance Goal #2 TF to meet at least 75% energy and pro needs Follow-Up By: 05/08/21 Additional Comments FU for stable TF - Attestation Statement I have reviewed and agreed w/ Malnutrition eval & tx plan: Yes <DALY GOMES R - Last Filed: 06/03/21 16:40> Assessment and Plan Assessment and plan: I saw and evaluated the patient. The patient was seen in conjunction with EDUCATIONAL PROGRAM ASSISTANT. I have independently examined the patient and reviewed pertinent historical, laboratory, and other data. Please refer to EDUCATIONAL PROGRAM ASSISTANT's note for details of this patient's presentation, findings, and recommendations. I have reviewed EDUCATIONAL PROGRAM ASSISTANT's note and concur fully with documented findings. Hospitalist Physical - Constitutional Vitals: Temp Pulse Resp BP Pulse Ox 93.9 F L 59 L 0 L 113/87 0 L 05/10/21 12:00 05/10/21 16:51 05/10/21 18:25 05/10/21 18:25 05/10/21 17:34 HEART Score - HEART Score Troponin: Troponin T 0.444 ng/mL (0.00-0.029) H* 05/09/21 15:30 Results - Labs CBC & Chem 7: 05/10/21 13:30 05/10/21 13:30 Labs: Laboratory Last Values WBC 20.4 K/mm3 (4.5-11.0) H 05/10/21 04:51 RBC 2.32 M/mm3 (3.65-5.03) L 05/10/21 04:51 Hgb 6.1 gm/dl (10.1-14.3) L 05/10/21 13:30 Hct 21.9 % (30.3-42.9) L 05/10/21 13:30 MCV 103 fl (79-97) H 05/10/21 04:51 MCH 31 pg (28-32) 05/10/21 04:51 MCHC 30 % (30-34) 05/10/21 04:51 RDW 18.4 % (13.2-15.2) H 05/10/21 04:51 Plt Count 96 K/mm3 (140-440) L 05/10/21 04:51 Lymph % (Auto) 12.0 % (13.4-35.0) L 04/22/21 05:29 [place] % (Auto) 2.8 % (0.0-7.3) 04/30/21 07:40 Eos % (Auto) 0.9 % (0.0-4.3) 04/30/21 07:40 Baso % (Auto) 0.7 % (0.0-1.8) 04/22/21 05:29 Lymph # (Auto) 1.1 K/mm3 (1.2-5.4) L 04/22/21 05:29 [place] # (Auto) 0.2 K/mm3 (0.0-0.8) 04/30/21 07:40 Eos # (Auto) 0.1 K/mm3 (0.0-0.4) 04/30/21 07:40 Baso # (Auto) 0.0 K/mm3 (0.0-0.1) 04/30/21 07:40 Add Manual Diff Complete 05/10/21 04:51 Total Counted 100 05/10/21 04:51 Seg Neutrophils % Training And Development Project Leader 05/10/21 04:51 Seg Neuts % (Manual) 87.0 % (40.0-70.0) H 05/10/21 04:51 Band Neutrophils % 10.0 % 05/10/21 04:51 Lymphocytes % (Manual) 2.0 % (13.4-35.0) L 05/10/21 04:51 Reactive Lymphs % (Man) 2.0 % 05/03/21 03:45 Monocytes % (Manual) 1.0 % (0.0-7.3) 05/10/21 04:51 Eosinophils % (Manual) 1.0 % (0.0-4.3) 04/30/21 07:40 Metamyelocytes % 3.0 % 05/02/21 06:57 Myelocytes % 1.0 % 05/07/21 05:20 Nucleated RBC % 8.0 % (0.0-0.9) H 05/10/21 04:51 Seg Neutrophils # 7.5 K/mm3 (1.8-7.7) 04/30/21 07:40 Seg Neutrophils # Man 0.0 K/mm3 (1.8-7.7) L 05/10/21 04:51 Band Neutrophils # 0.0 K/mm3 05/10/21 04:51 Lymphocytes # (Manual) 0.0 K/mm3 (1.2-5.4) L 05/10/21 04:51 Abs React Lymphs (Man) 0.0 K/mm3 05/10/21 04:51 Monocytes # (Manual) 0.0 K/mm3 (0.0-0.8) 05/10/21 04:51 Eosinophils # (Manual) 0.0 K/mm3 (0.0-0.4) 05/10/21 04:51 Basophils # (Manual) 0.0 K/mm3 (0.0-0.1) 05/10/21 04:51 Metamyelocytes # 0.0 K/mm3 05/10/21 04:51 Myelocytes # 0.0 K/mm3 05/10/21 04:51 Promyelocytes # 0.0 K/mm3 05/10/21 04:51 Blast Cells # 0.0 K/mm3 05/10/21 04:51 WBC Morphology Not Reportable 05/10/21 04:51 Hypersegmented Neuts Not Reportable 05/10/21 04:51 Hyposegmented Neuts Not Reportable 05/10/21 04:51 Hypogranular Neuts Not Reportable 05/10/21 04:51 Smudge Cells Not Reportable 05/10/21 04:51 Toxic Granulation Not Reportable 05/10/21 04:51 Toxic Vacuolation Not Reportable 05/10/21 04:51 Dohle Bodies Not Reportable 05/10/21 04:51 Pelger-Huet Anomaly Not Reportable 05/10/21 04:51 Brenda Rods Not Reportable 05/10/21 04:51 Platelet Estimate Consistent w auto 05/10/21 04:51 Clumped Platelets Not Reportable 05/10/21 04:51 Plt Clumps, EDTA Not Reportable 05/10/21 04:51 Large Platelets Few 05/10/21 04:51 Giant Platelets Not Reportable 05/10/21 04:51 Platelet Satelliting Not Reportable 05/10/21 04:51 Plt Morphology Comment Not Reportable 05/10/21 04:51 RBC Morphology Not Reportable 05/10/21 04:51 Dimorphic RBCs Not Reportable 05/10/21 04:51 Polychromasia Not Reportable 05/10/21 04:51 Hypochromasia Not Reportable 05/10/21 04:51 Poikilocytosis Not Reportable 05/10/21 04:51 Anisocytosis 1+ 05/10/21 04:51 Microcytosis Not Reportable 05/10/21 04:51 Macrocytosis Not Reportable 05/10/21 04:51 Spherocytes Not Reportable 05/10/21 04:51 Pappenheimer Bodies Not Reportable 05/10/21 04:51 Sickle Cells Not Reportable 05/10/21 04:51 Target Cells Not Reportable 05/10/21 04:51 Tear Drop Cells Not Reportable 05/10/21 04:51 Ovalocytes Not Reportable 05/10/21 04:51 Helmet Cells Not Reportable 05/10/21 04:51 Payan-Dewitt Bodies Not Reportable 05/10/21 04:51 Woodworth Rings Not Reportable 05/10/21 04:51 Chay Cells Not Reportable 05/10/21 04:51 Bite Cells Not Reportable 05/10/21 04:51 Crenated Cell Not Reportable 05/10/21 04:51 Elliptocytes Not Reportable 05/10/21 04:51 Acanthocytes (Spur) Not Reportable 05/10/21 04:51 Rouleaux Not Reportable 05/10/21 04:51 Hemoglobin C Crystals Not Reportable 05/10/21 04:51 Schistocytes Rare 05/10/21 04:51 Malaria parasites Not Reportable 05/10/21 04:51 Uli Bodies Not Reportable 05/10/21 04:51 Hem Pathologist Commnt No 05/10/21 04:51 PT 29.2 Sec. (12.2-14.9) H 05/09/21 15:30 INR 2.74 (0.87-1.13) H 05/09/21 15:30 APTT 44.9 Sec. (24.2-36.6) H 05/09/21 15:30 D-Dimer 1522.26 ng/mlDDU (0-234) H 04/21/21 16:30 Heparin Anti-Xa Level 0.48 U.I./ml (0.3-0.7) 05/10/21 04:51 ABG pH 7.230 (7.320-7.450) L 05/08/21 03:03 POC ABG pCO2 87.9 mmHg (32.0-48.0) H 05/08/21 03:03 ABG pCO2 46.0 mm Hg 04/22/21 17:30 POC ABG pO2 58.3 mmHg (83-108) L 05/08/21 03:03 ABG pO2 99.6 mm Hg (80.0-90.0) H 04/22/21 17:30 POC ABG HCO3 36.0 05/08/21 03:03 ABG HCO3 24.4 mmol/L (20.0-26.0) 04/22/21 17:30 ABG O2 Saturation 85.9 (0-100) 05/08/21 03:03 ABG O2 Content 19.9 (0.0-44) 04/22/21 17:30 POC ABG Base Excess 6.2 05/08/21 03:03 ABG Base Excess -1.6 mmol/L (-2.0-3.0) 04/22/21 17:30 ABG Hemoglobin 10.6 (12.0-17.5) L 05/08/21 03:03 ABG Oxyhemoglobin 84.4 (94-98) L 05/08/21 03:03 ABG Carboxyhemoglobin 0.9 % (0.0-5.0) 04/22/21 17:30 ABG Methemoglobin 0.3 (0.0-1.5) 05/08/21 03:03 ABG Sodium 138.6 mmol/L (136.0-145.0) 05/08/21 03:03 ABG Potassium 4.6 mmol/L (3.40-4.50) H 05/08/21 03:03 ABG Chloride 97.0 mmol/L (98-107) L 05/08/21 03:03 ABG Glucose 143 mg/dL (65-95) H 05/08/21 03:03 Oxyhemoglobin 95.9 % (95.0-99.0) 04/22/21 17:30 Carboxyhemoglobin 1.4 (0.5-1.5) 05/08/21 03:03 FiO2 100 % 04/22/21 17:30 FiO2 % 100.0 05/08/21 03:03 Sodium 146 mmol/L (137-145) H 05/10/21 04:51 Potassium 8.5 mmol/L (3.6-5.0) H* D 05/10/21 13:30 Chloride 92.9 mmol/L (98-107) L 05/10/21 04:51 Carbon Dioxide 21 mmol/L (22-30) L 05/10/21 04:51 Anion Gap 39 mmol/L 05/10/21 04:51 BUN 142 mg/dL (7-17) H 05/10/21 04:51 Creatinine 4.0 mg/dL (0.6-1.2) H 05/10/21 04:51 Estimated GFR 14 ml/min 05/10/21 04:51 BUN/Creatinine Ratio 36 % 05/10/21 04:51 Glucose 297 mg/dL (65-100) H 05/10/21 04:51 POC Glucose 252 mg/dL (70-105) H 05/10/21 11:46 Osmolality 375 Mosm/kg 05/04/21 13:27 Lactic Acid 3.00 mmol/L (0.7-2.0) H* 05/04/21 13:27 Calcium 7.1 mg/dL (8.4-10.2) L 05/10/21 04:51 Phosphorus 3.00 mg/dL (2.5-4.5) D 05/05/21 04:58 Magnesium 2.40 mg/dL (1.7-2.3) H 05/07/21 05:20 Total Bilirubin 0.70 mg/dL (0.1-1.2) 05/10/21 04:51 AST 8239 units/L (5-40) H 05/10/21 04:51 ALT 3058 units/L (7-56) H 05/10/21 04:51 Alkaline Phosphatase 172 units/L (35-129) H 05/10/21 04:51 Ammonia 58.0 umol/L (25-60) 04/28/21 04:45 Total Creatine Kinase 32 units/L (30-135) 05/03/21 03:45 CK-MB (CK-2) 22.4 ng/mL (0.0-4.0) H 04/21/21 16:32 CK-MB (CK-2) Rel Index 0.7 (0-4) 04/21/21 16:32 Troponin T 0.444 ng/mL (0.00-0.029) H* 05/09/21 15:30 Total Protein 3.3 g/dL (6.3-8.2) L D 05/10/21 04:51 Albumin 1.5 g/dL (3.9-5) L 05/10/21 04:51 Albumin/Globulin Ratio 0.8 % 05/10/21 04:51 Triglycerides 215 mg/dL (2-149) H 05/06/21 14:31 Cholesterol 220 mg/dL (50-199) H 04/21/21 16:32 LDL Cholesterol Direct 142 mg/dL (50-130) H 04/21/21 16:32 HDL Cholesterol 36 mg/dL (40-59) L 04/21/21 16:32 Cholesterol/HDL Ratio 6.11 % 04/21/21 16:32 TSH 0.051 mlU/mL (0.270-4.200) L 05/03/21 06:05 Free T4 1.05 ng/dL (0.76-1.46) 04/21/21 16:32 Arterial Blood Glucose 143 mg/dL (65-95) H 05/08/21 03:03 Arterial Blood Ionized Calcium 4.3 mg/dL (4.6-5.3) L 05/08/21 03:03 Urine Color Salma (Yellow) 05/03/21 16:10 Urine Turbidity Turbid (Clear) 05/03/21 16:10 Urine pH 5.0 (5.0-7.0) 05/03/21 16:10 Ur Specific Strawn 1.016 (1.003-1.030) 05/03/21 16:10 Urine Protein 30 mg/dl mg/dL (Negative) 05/03/21 16:10 Urine Glucose (UA) Neg mg/dL (Negative) 05/03/21 16:10 Urine Ketones Neg mg/dL (Negative) 05/03/21 16:10 Urine Blood Sm (Negative) 05/03/21 16:10 Urine Nitrite Neg (Negative) 05/03/21 16:10 Urine Bilirubin Neg (Negative) 05/03/21 16:10 Urine Urobilinogen 2.0 mg/dL (<2.0) 05/03/21 16:10 Ur Leukocyte Esterase Sm (Negative) 05/03/21 16:10 Urine WBC (Auto) 43.0 /HPF (0.0-6.0) H 05/03/21 16:10 Urine RBC (Auto) 20.0 /HPF (0.0-6.0) 05/03/21 16:10 U Epithel Cells (Auto) 11.0 /HPF (0-13.0) 05/03/21 16:10 Urine Bacteria (Auto) 2+ /HPF (Negative) 05/03/21 16:10 Urine WBC Clumps 3+ /HPF 05/03/21 16:10 Urine Mucus 2+ /HPF 05/03/21 16:10 Urine Yeast (Budding) 3+ /HPF 05/03/21 16:10 Urine Osmolality 435 Mosm/kg 05/03/21 16:10 Urine Creatinine 65.6 mg/dL (0.1-20.0) H 05/03/21 16:10 Urine Sodium 38 mmol/L 05/03/21 16:10 Urine Urea Nitrogen 597 05/03/21 16:10 Urine Total Protein 86 mg/dL (5-11.8) H 04/22/21 13:03 Urine Opiates Screen Negative 04/21/21 Unknown Urine Methadone Screen Negative 04/21/21 Unknown Ur Barbiturates Screen Negative 04/21/21 Unknown Ur Phencyclidine Scrn Negative 04/21/21 Unknown Ur Amphetamines Screen Negative 04/21/21 Unknown U Benzodiazepines Scrn Negative 04/21/21 Unknown Urine Cocaine Screen Negative 04/21/21 Unknown U Marijuana (THC) Screen Negative 04/21/21 Unknown Drugs of Abuse Note Disclamer 04/21/21 Unknown Plasma/Serum Alcohol < 0.01 % (0-0.07) 04/21/21 16:32 Coronavirus (PCR) Negative (Negative) 04/23/21 Unknown Blood Type O POSITIVE 05/06/21 10:40 Antibody Screen Negative 05/06/21 10:40 Crossmatch See Detail 05/06/21 10:40 [place]/IV: Voiding Method Indwelling Catheter Nutrition/Malnutrition Assess - Dietary Evaluation Nutrition/Malnutrition Findings: Nutrition Notes Start: 04/22/21 10:45 Freq: Status: Discharge Protocol: Document 05/09/21 08:30 (Rec: 05/09/21 08:33 MK [id number]) Nutrition Notes Initial or Follow up Brief Note Current Diagnosis Acute Kidney Injury, Hypertension,Stroke, Hyperlipidemia Other Pertinent Diagnosis New onset seizures, AMS, pulmonary embolism Current Diet TF - Nepro 35ml/hr Pertinent Medications levophed, dopmaine, epinephrine Subjective/Other Information Pt suffered code blue last night and this AM x2. TF remains off. Nutrition Intervention Follow-Up By: 05/13/21 Additional Comments F/U: TF restart
[2021-05-03] MEDS: SODIUM POLYSTYRENE 15 GM/60 ML ORAL LIQD PO SCH ×3 (12:47→21:59)
--- NOTE | 2021-05-03 13:09 | Progress Note ---
Assessment and Plan 66 y/o female, intubated for airway protection, found to have severe ILD and no has refractory hypoxemia. 05/03/21: Found to have ileus on ABD x-ray. Hold feeds and continue to suction. Repeat imaging in am. Need to address hyperkalemia with IV therapy given Ileus. Will do insulin and Kayexalate therapy. Suggest repeat K later this evening. Dropped FiO2 to 90, continue to wean for sats greater 88%. No lasix today. Will give a liter bolus of LR. May need an additional bolus. Unable to transduce CVP from picc. Continue IV steroids. Repeat ABG in am. Suspect that renal insufficiency will be transient but will monitor closely. Guarded prognosis. Need to hold on CT given instability. 05/02/21: Continue current level of sedation. Maintain current TV settings and repeat ABG in am. Goal is to get FiO2 at 60 or less in the next 24 hours. Once FiO2 less than 50% can start weaning PEEP. Repeat IV lasix today. Will likely need more free water. Continue steroids. Guarded prognosis. 05/01/21: Continue Ativan and Diprovan drip. Maintain low tidal volume and high PEEP and as long as pH is greater than 7.2. continue diuresis with IV lasix. Guarded prognosis. Will call daughter back today. Continue High dose IV steroids for now. 04/30/21: Will add Ativan drip and attempt to wean Precedex to off. Once steven quate sedation achieved and BP stable, will give an additional dose of IV lasix today. Increased Free Water to 250q4. Ok with current Triglyceride level but will need to repeat. Prognosis remains guarded. Will call daughter to update her. 04/29/21: Continue low tidal volumes and high PEEPs. Lasix 40mg IV x1 today. Continue high dose steroids. Will start pulmicort and brovana therapy. Prog nosis remains very very guarded. Follow up Triglyceride episode tomorrow. 04/26/21: Dropped tidal volume to 300. Keep PEEP at 16. Repeat ABG at 1230. Now that BP is better will give lasix 40 IV x1. Please assess again tomorrow and see if she would benefit from this. Pulse dose steroids through tomorrow and then solumedrol 60q6 starting on Thursday. Spoke with daughter over the phone who confirmed that mother was a smoker, heavy for 30+ years. Will start on BID pulmicort and brovana therapy. Overall prognosis discussed with daughter regarding possible need for trach and vent dependence. She asked about lung tx which I explained is not an option at this time. She seemed to express un derstanding but was mainly in shock as she had no idea her mother had ILD and per daughter, mother never saw a lung physician. Guarded to poor prognosis. My partner rounding over the weekend, I am back on Thursday. 04/25/21: Picc line today. Increase PEEP to 16. Dropped TV back to 375. pH of 7.2 and greater is acceptable. Will also pulse dose for the next 72 hours and then transition to q6 dosing on Thursday. Will discuss current clinical state with daughter. Serial ABG's today to make sure pH stays where it needs to be and hopeful improvement in oxygenation. Guarded prognosis. 04/24/21: Will drop TV to 375 and Increase PEEP to 14. Will repeat ABG in one hour. If no improvements, may need to consider IV steroids for 48-72 hours. Exact etiology of chronic lung disease is not known. Would prefer not to give sedation vacation given high levels of oxygen required as agitation could make things worse. Right now, unable to determine current neuro state. Lungs are very very sick and even though this is a chronic issue, now with her drive diminished from the ventilator, most likely will be a difficult wean. Will discuss with family soon what the next steps could potentially be but would need to assess mental state first. Guarded prognosis. 1. Increase PEEP and repeat ABG 2. May need to consider IV steroids 3. Follow up neuro recs 4. Guarded prognosis. cCT 31 minutes. Subjective Date of service: 05/03/21 Principal diagnosis: Acute kidney injury, rhabdomyolysis Interval history: Eventful night with desats and tachycardia. Pain control attempted but patient became hypotensive and has since remained that way and now on vasopressor therapy. Adenosine was tried but did not break tachycardia and it was a sinus underlying rhythm. No fever. Elected not to give volume over the phone given worsening oxygen sats. Bumped up to 100% last night. This am sats in the 90's. Still making urine but had to be straight cathed earlier this am. Objective Vital Signs - 12hr 07/05/03/21 05/03/21 01:00 01:15 01:30 Temperature Pulse Rate 132 H 133 H 131 H Pulse Rate [ Anterior Bilateral] Respiratory 28 H 27 H 25 H Rate Respiratory Rate [Anterior Bilateral] Blood Pressure 104/69 106/70 97/60 O2 Sat by Pulse 92 95 98 Oximetry 05/03/21 05/03/21 05/03/21 01:45 02:00 02:16 Temperature Pulse Rate 130 H 126 H 123 H Pulse Rate [ Anterior Bilateral] Respiratory 26 H 26 H 24 Rate Respiratory Rate [Anterior Bilateral] Blood Pressure 104/63 99/60 134/80 O2 Sat by Pulse 99 95 91 Oximetry 05/03/21 05/03/21 05/03/21 02:30 02:45 03:00 Temperature Pulse Rate 122 H 122 H 123 H Pulse Rate [ Anterior Bilateral] Respiratory 25 H 27 H 26 H Rate Respiratory Rate [Anterior Bilateral] Blood Pressure 132/75 134/79 120/76 O2 Sat by Pulse 95 95 96 Oximetry 05/03/21 05/03/21 05/03/21 03:15 03:30 03:35 Temperature Pulse Rate 120 H 120 H 119 H Pulse Rate [ Anterior Bilateral] Respiratory 26 H 27 H Rate Respiratory Rate [Anterior Bilateral] Blood Pressure 127/76 122/75 122/75 O2 Sat by Pulse 95 94 96 Oximetry 05/03/21 05/03/21 05/03/21 03:45 04:00 04:16 Temperature 99.2 F Pulse Rate 118 H 119 H 118 H Pulse Rate [ Anterior Bilateral] Respiratory 24 25 H 24 Rate Respiratory Rate [Anterior Bilateral] Blood Pressure 118/75 123/77 123/77 O2 Sat by Pulse 95 95 Oximetry 05/03/21 05/03/21 05/03/21 04:30 04:32 04:46 Temperature Pulse Rate 134 H 116 H Pulse Rate [ Anterior Bilateral] Respiratory 27 H 27 H Rate Respiratory Rate [Anterior Bilateral] Blood Pressure 123/77 123/77 O2 Sat by Pulse 93 96 92 Oximetry 05/03/21 05/03/21 05/03/21 05:00 05:09 05:16 Temperature Pulse Rate 113 H 115 H Pulse Rate [ Anterior Bilateral] Respiratory 21 25 H Rate Respiratory Rate [Anterior Bilateral] Blood Pressure 123/77 123/77 O2 Sat by Pulse 92 93 92 Oximetry 05/03/21 05/03/21 05/03/21 05:30 05:46 06:00 Temperature Pulse Rate 115 H 116 H 115 H Pulse Rate [ Anterior Bilateral] Respiratory 23 22 24 Rate Respiratory Rate [Anterior Bilateral] Blood Pressure 123/77 123/77 123/77 O2 Sat by Pulse 92 93 93 Oximetry 05/03/21 05/03/21 05/03/21 06:16 06:30 06:46 Temperature Pulse Rate 117 H 118 H 118 H Pulse Rate [ Anterior Bilateral] Respiratory 23 23 23 Rate Respiratory Rate [Anterior Bilateral] Blood Pressure 123/77 123/77 123/77 O2 Sat by Pulse 93 93 93 Oximetry 05/03/21 05/03/21 05/03/21 07:00 07:16 07:29 Temperature 98.4 F Pulse Rate 117 H 118 H 117 H Pulse Rate [ 119 H Anterior Bilateral] Respiratory 24 24 Rate Respiratory 24 Rate [Anterior Bilateral] Blood Pressure 123/77 123/77 92/60 O2 Sat by Pulse 94 94 94 Oximetry 05/03/21 05/03/21 05/03/21 07:30 07:46 08:00 Temperature Pulse Rate 118 H 133 H 121 H Pulse Rate [ Anterior Bilateral] Respiratory 24 16 19 Rate Respiratory Rate [Anterior Bilateral] Blood Pressure 123/77 123/77 123/77 O2 Sat by Pulse 94 86 94 Oximetry 05/03/21 05/03/21 05/03/21 08:16 08:30 08:46 Temperature Pulse Rate 120 H 117 H 118 H Pulse Rate [ Anterior Bilateral] Respiratory 20 24 24 Rate Respiratory Rate [Anterior Bilateral] Blood Pressure 123/77 123/77 123/77 O2 Sat by Pulse 95 94 94 Oximetry 05/03/21 05/03/21 05/03/21 09:00 09:16 09:30 Temperature Pulse Rate 119 H 119 H 118 H Pulse Rate [ Anterior Bilateral] Respiratory 24 24 24 Rate Respiratory Rate [Anterior Bilateral] Blood Pressure 123/77 123/77 123/77 O2 Sat by Pulse 94 93 94 Oximetry 05/03/21 05/03/21 05/03/21 09:46 10:00 10:16 Temperature Pulse Rate 119 H 119 H 117 H Pulse Rate [ Anterior Bilateral] Respiratory 24 24 23 Rate Respiratory Rate [Anterior Bilateral] Blood Pressure 123/77 123/77 123/77 O2 Sat by Pulse 94 94 95 Oximetry 05/03/21 05/03/21 05/03/21 10:30 10:46 11:00 Temperature Pulse Rate 116 H 117 H 119 H Pulse Rate [ Anterior Bilateral] Respiratory 23 24 24 Rate Respiratory Rate [Anterior Bilateral] Blood Pressure 123/77 123/77 123/77 O2 Sat by Pulse 95 93 94 Oximetry 05/03/21 05/03/21 05/03/21 11:16 11:30 11:46 Temperature 99.1 F Pulse Rate 119 H 126 H Pulse Rate [ Anterior Bilateral] Respiratory 24 21 Rate Respiratory Rate [Anterior Bilateral] Blood Pressure 123/77 123/77 O2 Sat by Pulse 93 92 Oximetry Constitutional: no acute distress, other (Sedated) Ascultation: Bilateral: rales, rhonchi CBC and BMP: 05/03/21 03:45 05/03/21 03:45 ABG, PT/INR, D-dimer: ABG ABG pH 7.237 (7.320-7.450) L 05/03/21 04:00 POC ABG pCO2 99.9 mmHg (32.0-48.0) H 05/03/21 04:00 ABG pCO2 46.0 mm Hg 04/22/21 17:30 POC ABG pO2 74.8 mmHg (83-108) L 05/03/21 04:00 ABG pO2 99.6 mm Hg (80.0-90.0) H 04/22/21 17:30 POC ABG HCO3 41.6 05/03/21 04:00 ABG O2 Saturation 93.6 (0-100) 05/03/21 04:00 PT/INR, D-dimer PT 13.2 Sec. (12.2-14.9) 04/22/21 00:32 INR 0.95 (0.87-1.13) 04/22/21 00:32 D-Dimer 1522.26 ng/mlDDU (0-234) H 04/21/21 16:30 Abnormal lab findings: Abnormal Labs 04/21/21 04/21/21 04/21/21 14:40 15:42 16:30 RBC Hgb Hct MCV RDW Lymph % (Auto) [place] % (Auto) Lymph # (Auto) Seg Neutrophils % Seg Neuts % (Manual) Lymphocytes % (Manual) Monocytes % (Manual) Nucleated RBC % Lymphocytes # (Manual) D-Dimer 1522.26 H Heparin Anti-Xa Level ABG pH POC ABG pCO2 POC ABG pO2 45.5 L 69.9 L ABG pO2 ABG Hemoglobin ABG Oxyhemoglobin 78.6 L 90.2 L ABG Sodium ABG Potassium ABG Chloride 111.0 H ABG Glucose 156 H 148 H Carboxyhemoglobin Sodium Potassium Chloride Carbon Dioxide BUN Creatinine Glucose POC Glucose Lactic Acid Calcium Phosphorus Magnesium AST ALT Total Creatine Kinase CK-MB (CK-2) Troponin T Total Protein Albumin Triglycerides Cholesterol LDL Cholesterol Direct HDL Cholesterol TSH Arterial Blood Glucose 156 H 148 H Arterial Blood Ionized Calcium 4.5 L Urine Creatinine Urine Total Protein 04/21/21 04/21/21 04/22/21 16:32 16:32 00:32 RBC 5.22 H Hgb 16.2 H 14.8 H Hct 48.6 H 44.4 H MCV RDW 15.8 H Lymph % (Auto) [place] % (Auto) Lymph # (Auto) Seg Neutrophils % Seg Neuts % (Manual) 79.0 H Lymphocytes % (Manual) 13.0 L Monocytes % (Manual) 8.0 H Nucleated RBC % Lymphocytes # (Manual) 1.1 L D-Dimer Heparin Anti-Xa Level ABG pH POC ABG pCO2 POC ABG pO2 ABG pO2 ABG Hemoglobin ABG Oxyhemoglobin ABG Sodium ABG Potassium ABG Chloride ABG Glucose Carboxyhemoglobin Sodium Potassium Chloride Carbon Dioxide 21 L BUN 24 H Creatinine 1.3 H Glucose 130 H POC Glucose Lactic Acid Calcium Phosphorus Magnesium AST 129 H ALT 61 H Total Creatine Kinase 3055 H CK-MB (CK-2) 22.4 H Troponin T 0.055 H Total Protein Albumin 3.6 L Triglycerides 235 H Cholesterol 220 H LDL Cholesterol Direct 142 H HDL Cholesterol 36 L TSH Arterial Blood Glucose Arterial Blood Ionized Calcium Urine Creatinine Urine Total Protein 04/22/21 04/22/21 04/22/21 03:27 05:29 05:29 RBC Hgb 15.4 H Hct 45.8 H MCV RDW 16.0 H Lymph % (Auto) 12.0 L [place] % (Auto) 8.0 H Lymph # (Auto) 1.1 L Seg Neutrophils % 76.3 H Seg Neuts % (Manual) Lymphocytes % (Manual) Monocytes % (Manual) Nucleated RBC % Lymphocytes # (Manual) D-Dimer Heparin Anti-Xa Level ABG pH POC ABG pCO2 POC ABG pO2 ABG pO2 ABG Hemoglobin ABG Oxyhemoglobin ABG Sodium ABG Potassium 4.7 H ABG Chloride 109.0 H ABG Glucose 155 H Carboxyhemoglobin 0.4 L Sodium Potassium 6.3 H* D Chloride Carbon Dioxide BUN 26 H Creatinine Glucose 134 H POC Glucose Lactic Acid Calcium Phosphorus Magnesium AST 123 H ALT Total Creatine Kinase CK-MB (CK-2) Troponin T Total Protein Albumin 3.6 L Triglycerides Cholesterol LDL Cholesterol Direct HDL Cholesterol TSH Arterial Blood Glucose 155 H Arterial Blood Ionized Calcium Urine Creatinine Urine Total Protein 04/22/21 04/22/21 04/22/21 13:03 13:25 17:30 RBC Hgb Hct MCV RDW Lymph % (Auto) [place] % (Auto) Lymph # (Auto) Seg Neutrophils % Seg Neuts % (Manual) Lymphocytes % (Manual) Monocytes % (Manual) Nucleated RBC % Lymphocytes # (Manual) D-Dimer Heparin Anti-Xa Level ABG pH 7.343 L POC ABG pCO2 POC ABG pO2 ABG pO2 99.6 H ABG Hemoglobin ABG Oxyhemoglobin ABG Sodium ABG Potassium ABG Chloride ABG Glucose Carboxyhemoglobin Sodium Potassium Chloride Carbon Dioxide BUN Creatinine Glucose POC Glucose Lactic Acid Calcium Phosphorus Magnesium AST ALT Total Creatine Kinase 2322 H CK-MB (CK-2) Troponin T Total Protein Albumin Triglycerides Cholesterol LDL Cholesterol Direct HDL Cholesterol TSH Arterial Blood Glucose Arterial Blood Ionized Calcium Urine Creatinine 138.9 H Urine Total Protein 86 H 04/22/21 04/23/21 04/23/21 20:00 04:42 09:53 RBC Hgb Hct MCV RDW Lymph % (Auto) [place] % (Auto) Lymph # (Auto) Seg Neutrophils % Seg Neuts % (Manual) Lymphocytes % (Manual) Monocytes % (Manual) Nucleated RBC % Lymphocytes # (Manual) D-Dimer Heparin Anti-Xa Level 2.00 H < 0.10 L ABG pH POC ABG pCO2 POC ABG pO2 ABG pO2 ABG Hemoglobin ABG Oxyhemoglobin 83.2 L ABG Sodium ABG Potassium ABG Chloride 113.0 H ABG Glucose 107 H Carboxyhemoglobin Sodium Potassium Chloride Carbon Dioxide BUN Creatinine Glucose POC Glucose Lactic Acid Calcium Phosphorus Magnesium AST ALT Total Creatine Kinase CK-MB (CK-2) Troponin T Total Protein Albumin Triglycerides Cholesterol LDL Cholesterol Direct HDL Cholesterol TSH Arterial Blood Glucose 107 H Arterial Blood Ionized Calcium Urine Creatinine Urine Total Protein 04/23/21 04/23/21 04/23/21 14:21 14:21 15:11 RBC Hgb Hct MCV RDW 16.3 H Lymph % (Auto) [place] % (Auto) Lymph # (Auto) Seg Neutrophils % Seg Neuts % (Manual) Lymphocytes % (Manual) Monocytes % (Manual) Nucleated RBC % Lymphocytes # (Manual) D-Dimer Heparin Anti-Xa Level ABG pH POC ABG pCO2 POC ABG pO2 68.6 L ABG pO2 ABG Hemoglobin ABG Oxyhemoglobin 91.3 L ABG Sodium ABG Potassium ABG Chloride 113.0 H ABG Glucose 100 H Carboxyhemoglobin Sodium Potassium Chloride 113.1 H Carbon Dioxide 20 L BUN 18 H Creatinine Glucose POC Glucose Lactic Acid Calcium 8.2 L Phosphorus Magnesium AST 59 H ALT Total Creatine Kinase 681 H CK-MB (CK-2) Troponin T Total Protein 5.5 L Albumin 2.3 L Triglycerides Cholesterol LDL Cholesterol Direct HDL Cholesterol TSH Arterial Blood Glucose 100 H Arterial Blood Ionized Calcium Urine Creatinine Urine Total Protein 04/23/21 04/24/21 04/24/21 18:30 04:00 05:37 RBC Hgb Hct MCV RDW Lymph % (Auto) [place] % (Auto) Lymph # (Auto) Seg Neutrophils % Seg Neuts % (Manual) Lymphocytes % (Manual) Monocytes % (Manual) Nucleated RBC % Lymphocytes # (Manual) D-Dimer Heparin Anti-Xa Level 1.84 H ABG pH POC ABG pCO2 POC ABG pO2 51.9 L ABG pO2 ABG Hemoglobin ABG Oxyhemoglobin 84.9 L ABG Sodium ABG Potassium ABG Chloride 112.0 H ABG Glucose 138 H Carboxyhemoglobin Sodium Potassium Chloride Carbon Dioxide BUN Creatinine Glucose POC Glucose 108 H Lactic Acid Calcium Phosphorus Magnesium AST ALT Total Creatine Kinase CK-MB (CK-2) Troponin T Total Protein Albumin Triglycerides Cholesterol LDL Cholesterol Direct HDL Cholesterol TSH Arterial Blood Glucose 138 H Arterial Blood Ionized Calcium Urine Creatinine Urine Total Protein 04/24/21 04/24/21 04/24/21 10:00 10:00 10:14 RBC Hgb Hct MCV RDW 16.0 H Lymph % (Auto) [place] % (Auto) Lymph # (Auto) Seg Neutrophils % Seg Neuts % (Manual) Lymphocytes % (Manual) Monocytes % (Manual) Nucleated RBC % Lymphocytes # (Manual) D-Dimer Heparin Anti-Xa Level 0.84 H ABG pH POC ABG pCO2 POC ABG pO2 ABG pO2 ABG Hemoglobin ABG Oxyhemoglobin ABG Sodium ABG Potassium ABG Chloride ABG Glucose Carboxyhemoglobin Sodium Potassium Chloride 109.9 H Carbon Dioxide BUN Creatinine Glucose 118 H POC Glucose Lactic Acid Calcium Phosphorus 2.00 L Magnesium 2.40 H AST 59 H ALT Total Creatine Kinase 396 H CK-MB (CK-2) Troponin T Total Protein 5.5 L Albumin 2.4 L Triglycerides Cholesterol LDL Cholesterol Direct HDL Cholesterol TSH Arterial Blood Glucose Arterial Blood Ionized Calcium Urine Creatinine Urine Total Protein 04/24/21 04/24/21 04/24/21 11:14 12:00 15:23 RBC Hgb Hct MCV RDW Lymph % (Auto) [place] % (Auto) Lymph # (Auto) Seg Neutrophils % Seg Neuts % (Manual) Lymphocytes % (Manual) Monocytes % (Manual) Nucleated RBC % Lymphocytes # (Manual) D-Dimer Heparin Anti-Xa Level ABG pH 7.287 L POC ABG pCO2 54.3 H POC ABG pO2 58.2 L 67.5 L ABG pO2 ABG Hemoglobin ABG Oxyhemoglobin 88.3 L 89.9 L ABG Sodium ABG Potassium ABG Chloride 111.0 H 110.0 H ABG Glucose 117 H 126 H Carboxyhemoglobin 0.3 L Sodium Potassium Chloride Carbon Dioxide BUN Creatinine Glucose POC Glucose 112 H Lactic Acid Calcium Phosphorus Magnesium AST ALT Total Creatine Kinase CK-MB (CK-2) Troponin T Total Protein Albumin Triglycerides Cholesterol LDL Cholesterol Direct HDL Cholesterol TSH Arterial Blood Glucose 117 H 126 H Arterial Blood Ionized Calcium Urine Creatinine Urine Total Protein 04/24/21 04/24/21 04/24/21 17:58 18:00 22:56 RBC Hgb Hct MCV RDW Lymph % (Auto) [place] % (Auto) Lymph # (Auto) Seg Neutrophils % Seg Neuts % (Manual) Lymphocytes % (Manual) Monocytes % (Manual) Nucleated RBC % Lymphocytes # (Manual) D-Dimer Heparin Anti-Xa Level ABG pH POC ABG pCO2 POC ABG pO2 53.3 L ABG pO2 ABG Hemoglobin ABG Oxyhemoglobin 86.2 L ABG Sodium ABG Potassium ABG Chloride 111.0 H ABG Glucose 115 H Carboxyhemoglobin 0.4 L Sodium Potassium Chloride Carbon Dioxide BUN Creatinine Glucose POC Glucose 106 H 131 H Lactic Acid Calcium Phosphorus Magnesium AST ALT Total Creatine Kinase CK-MB (CK-2) Troponin T Total Protein Albumin Triglycerides Cholesterol LDL Cholesterol Direct HDL Cholesterol TSH Arterial Blood Glucose 115 H Arterial Blood Ionized Calcium Urine Creatinine Urine Total Protein 04/25/21 04/25/21 04/25/21 04:00 07:42 10:50 RBC Hgb Hct MCV RDW Lymph % (Auto) [place] % (Auto) Lymph # (Auto) Seg Neutrophils % Seg Neuts % (Manual) Lymphocytes % (Manual) Monocytes % (Manual) Nucleated RBC % Lymphocytes # (Manual) D-Dimer Heparin Anti-Xa Level ABG pH POC ABG pCO2 POC ABG pO2 48.5 L 56.5 L ABG pO2 ABG Hemoglobin 10.6 L 10.4 L ABG Oxyhemoglobin 79.4 L 86.8 L ABG Sodium ABG Potassium ABG Chloride 111.0 H 112.0 H ABG Glucose 115 H 124 H Carboxyhemoglobin 0.2 L Sodium 146 H Potassium Chloride 111.3 H Carbon Dioxide BUN Creatinine Glucose 128 H POC Glucose Lactic Acid Calcium Phosphorus Magnesium AST ALT Total Creatine Kinase CK-MB (CK-2) Troponin T Total Protein Albumin Triglycerides Cholesterol LDL Cholesterol Direct HDL Cholesterol TSH Arterial Blood Glucose 115 H 124 H Arterial Blood Ionized Calcium Urine Creatinine Urine Total Protein 04/25/21 04/25/21 04/25/21 11:12 13:55 16:05 RBC Hgb Hct MCV RDW Lymph % (Auto) [place] % (Auto) Lymph # (Auto) Seg Neutrophils % Seg Neuts % (Manual) Lymphocytes % (Manual) Monocytes % (Manual) Nucleated RBC % Lymphocytes # (Manual) D-Dimer Heparin Anti-Xa Level ABG pH POC ABG pCO2 POC ABG pO2 46.7 L 53.7 L ABG pO2 ABG Hemoglobin 10.7 L 11.1 L ABG Oxyhemoglobin 81.3 L 85.6 L ABG Sodium ABG Potassium ABG Chloride 111.0 H 111.0 H ABG Glucose 158 H 185 H Carboxyhemoglobin 0.4 L Sodium Potassium Chloride Carbon Dioxide BUN Creatinine Glucose POC Glucose 136 H Lactic Acid Calcium Phosphorus Magnesium AST ALT Total Creatine Kinase CK-MB (CK-2) Troponin T Total Protein Albumin Triglycerides Cholesterol LDL Cholesterol Direct HDL Cholesterol TSH Arterial Blood Glucose 158 H 185 H Arterial Blood Ionized Calcium Urine Creatinine Urine Total Protein 04/25/21 04/25/21 04/26/21 17:39 23:18 05:06 RBC Hgb Hct MCV RDW Lymph % (Auto) [place] % (Auto) Lymph # (Auto) Seg Neutrophils % Seg Neuts % (Manual) Lymphocytes % (Manual) Monocytes % (Manual) Nucleated RBC % Lymphocytes # (Manual) D-Dimer Heparin Anti-Xa Level ABG pH POC ABG pCO2 POC ABG pO2 ABG pO2 ABG Hemoglobin ABG Oxyhemoglobin ABG Sodium ABG Potassium ABG Chloride ABG Glucose Carboxyhemoglobin Sodium Potassium Chloride Carbon Dioxide BUN Creatinine Glucose POC Glucose 155 H 158 H 134 H Lactic Acid Calcium Phosphorus Magnesium AST ALT Total Creatine Kinase CK-MB (CK-2) Troponin T Total Protein Albumin Triglycerides Cholesterol LDL Cholesterol Direct HDL Cholesterol TSH Arterial Blood Glucose Arterial Blood Ionized Calcium Urine Creatinine Urine Total Protein 04/26/21 04/26/21 04/26/21 05:22 12:20 13:16 RBC Hgb Hct MCV RDW Lymph % (Auto) [place] % (Auto) Lymph # (Auto) Seg Neutrophils % Seg Neuts % (Manual) Lymphocytes % (Manual) Monocytes % (Manual) Nucleated RBC % Lymphocytes # (Manual) D-Dimer Heparin Anti-Xa Level ABG pH POC ABG pCO2 POC ABG pO2 52.2 L 53.9 L ABG pO2 ABG Hemoglobin 10.9 L 11.5 L ABG Oxyhemoglobin 86.5 L 86.4 L ABG Sodium 145.8 H ABG Potassium 4.6 H ABG Chloride 114.0 H 112.0 H ABG Glucose 144 H 162 H Carboxyhemoglobin 0.4 L 0.4 L Sodium Potassium Chloride Carbon Dioxide BUN Creatinine Glucose POC Glucose 160 H Lactic Acid Calcium Phosphorus Magnesium AST ALT Total Creatine Kinase CK-MB (CK-2) Troponin T Total Protein Albumin Triglycerides Cholesterol LDL Cholesterol Direct HDL Cholesterol TSH Arterial Blood Glucose 144 H 162 H Arterial Blood Ionized Calcium Urine Creatinine Urine Total Protein 04/26/21 04/26/21 04/26/21 14:09 18:42 23:30 RBC Hgb Hct MCV RDW Lymph % (Auto) [place] % (Auto) Lymph # (Auto) Seg Neutrophils % Seg Neuts % (Manual) Lymphocytes % (Manual) Monocytes % (Manual) Nucleated RBC % Lymphocytes # (Manual) D-Dimer Heparin Anti-Xa Level ABG pH POC ABG pCO2 POC ABG pO2 55.3 L ABG pO2 ABG Hemoglobin 11.6 L ABG Oxyhemoglobin 87.2 L ABG Sodium 146.6 H ABG Potassium ABG Chloride 111.0 H ABG Glucose 165 H Carboxyhemoglobin Sodium Potassium Chloride Carbon Dioxide BUN Creatinine Glucose POC Glucose 161 H 163 H Lactic Acid Calcium Phosphorus Magnesium AST ALT Total Creatine Kinase CK-MB (CK-2) Troponin T Total Protein Albumin Triglycerides Cholesterol LDL Cholesterol Direct HDL Cholesterol TSH Arterial Blood Glucose 165 H Arterial Blood Ionized Calcium Urine Creatinine Urine Total Protein 04/27/21 04/27/21 04/27/21 03:51 05:14 06:25 RBC 3.64 L Hgb Hct MCV RDW 16.2 H Lymph % (Auto) [place] % (Auto) Lymph # (Auto) Seg Neutrophils % Seg Neuts % (Manual) Lymphocytes % (Manual) Monocytes % (Manual) Nucleated RBC % Lymphocytes # (Manual) D-Dimer Heparin Anti-Xa Level ABG pH POC ABG pCO2 52.9 H POC ABG pO2 60.8 L ABG pO2 ABG Hemoglobin 11.9 L ABG Oxyhemoglobin 87.9 L ABG Sodium 147.8 H ABG Potassium ABG Chloride 111.0 H ABG Glucose 183 H Carboxyhemoglobin Sodium Potassium Chloride Carbon Dioxide BUN Creatinine Glucose POC Glucose 165 H Lactic Acid Calcium Phosphorus Magnesium AST ALT Total Creatine Kinase CK-MB (CK-2) Troponin T Total Protein Albumin Triglycerides Cholesterol LDL Cholesterol Direct HDL Cholesterol TSH Arterial Blood Glucose 183 H Arterial Blood Ionized Calcium Urine Creatinine Urine Total Protein 04/27/21 04/27/21 04/27/21 06:25 11:45 17:41 RBC Hgb Hct MCV RDW Lymph % (Auto) [place] % (Auto) Lymph # (Auto) Seg Neutrophils % Seg Neuts % (Manual) Lymphocytes % (Manual) Monocytes % (Manual) Nucleated RBC % Lymphocytes # (Manual) D-Dimer Heparin Anti-Xa Level ABG pH POC ABG pCO2 POC ABG pO2 ABG pO2 ABG Hemoglobin ABG Oxyhemoglobin ABG Sodium ABG Potassium ABG Chloride ABG Glucose Carboxyhemoglobin Sodium 148 H Potassium 5.1 H D Chloride 109.0 H Carbon Dioxide BUN 35 H Creatinine Glucose 170 H POC Glucose 184 H 172 H Lactic Acid Calcium Phosphorus Magnesium AST 48 H ALT Total Creatine Kinase CK-MB (CK-2) Troponin T Total Protein Albumin 2.4 L Triglycerides Cholesterol LDL Cholesterol Direct HDL Cholesterol TSH Arterial Blood Glucose Arterial Blood Ionized Calcium Urine Creatinine Urine Total Protein 04/27/21 04/28/21 04/28/21 23:16 03:23 04:00 RBC Hgb Hct MCV RDW Lymph % (Auto) [place] % (Auto) Lymph # (Auto) Seg Neutrophils % Seg Neuts % (Manual) Lymphocytes % (Manual) Monocytes % (Manual) Nucleated RBC % Lymphocytes # (Manual) D-Dimer Heparin Anti-Xa Level ABG pH POC ABG pCO2 55.9 H POC ABG pO2 76.2 L ABG pO2 ABG Hemoglobin 11.5 L ABG Oxyhemoglobin 92.9 L ABG Sodium 153.3 H ABG Potassium 3.2 L ABG Chloride 115.0 H ABG Glucose 154 H Carboxyhemoglobin Sodium 154 H Potassium 3.5 L D Chloride 114.4 H Carbon Dioxide 31 H BUN 32 H Creatinine Glucose 148 H POC Glucose 142 H Lactic Acid Calcium Phosphorus Magnesium AST ALT Total Creatine Kinase CK-MB (CK-2) Troponin T Total Protein 6.0 L Albumin 2.4 L Triglycerides Cholesterol LDL Cholesterol Direct HDL Cholesterol TSH Arterial Blood Glucose 154 H Arterial Blood Ionized Calcium Urine Creatinine Urine Total Protein 04/28/21 04/28/21 04/28/21 04:45 06:05 11:57 RBC Hgb Hct MCV RDW 16.1 H Lymph % (Auto) [place] % (Auto) Lymph # (Auto) Seg Neutrophils % Seg Neuts % (Manual) Lymphocytes % (Manual) Monocytes % (Manual) Nucleated RBC % Lymphocytes # (Manual) D-Dimer Heparin Anti-Xa Level ABG pH POC ABG pCO2 POC ABG pO2 ABG pO2 ABG Hemoglobin ABG Oxyhemoglobin ABG Sodium ABG Potassium ABG Chloride ABG Glucose Carboxyhemoglobin Sodium Potassium Chloride Carbon Dioxide BUN Creatinine Glucose POC Glucose 153 H 109 H Lactic Acid Calcium Phosphorus Magnesium AST ALT Total Creatine Kinase CK-MB (CK-2) Troponin T Total Protein Albumin Triglycerides Cholesterol LDL Cholesterol Direct HDL Cholesterol TSH Arterial Blood Glucose Arterial Blood Ionized Calcium Urine Creatinine Urine Total Protein 04/28/21 04/28/21 04/29/21 17:39 23:58 03:51 RBC Hgb Hct MCV RDW Lymph % (Auto) [place] % (Auto) Lymph # (Auto) Seg Neutrophils % Seg Neuts % (Manual) Lymphocytes % (Manual) Monocytes % (Manual) Nucleated RBC % Lymphocytes # (Manual) D-Dimer Heparin Anti-Xa Level ABG pH POC ABG pCO2 54.7 H POC ABG pO2 68.6 L ABG pO2 ABG Hemoglobin 11.9 L ABG Oxyhemoglobin 91.7 L ABG Sodium 148.2 H ABG Potassium ABG Chloride 112.0 H ABG Glucose 136 H Carboxyhemoglobin Sodium Potassium Chloride Carbon Dioxide BUN Creatinine Glucose POC Glucose 145 H 164 H Lactic Acid Calcium Phosphorus Magnesium AST ALT Total Creatine Kinase CK-MB (CK-2) Troponin T Total Protein Albumin Triglycerides Cholesterol LDL Cholesterol Direct HDL Cholesterol TSH Arterial Blood Glucose 136 H Arterial Blood Ionized Calcium Urine Creatinine Urine Total Protein 04/29/21 04/29/21 04/29/21 05:35 05:55 11:29 RBC Hgb Hct MCV RDW Lymph % (Auto) [place] % (Auto) Lymph # (Auto) Seg Neutrophils % Seg Neuts % (Manual) Lymphocytes % (Manual) Monocytes % (Manual) Nucleated RBC % Lymphocytes # (Manual) D-Dimer Heparin Anti-Xa Level ABG pH POC ABG pCO2 POC ABG pO2 ABG pO2 ABG Hemoglobin ABG Oxyhemoglobin ABG Sodium ABG Potassium ABG Chloride ABG Glucose Carboxyhemoglobin Sodium 149 H Potassium Chloride 110.9 H Carbon Dioxide BUN 34 H Creatinine Glucose 136 H POC Glucose 128 H 206 H Lactic Acid Calcium Phosphorus Magnesium AST ALT Total Creatine Kinase CK-MB (CK-2) Troponin T Total Protein Albumin Triglycerides Cholesterol LDL Cholesterol Direct HDL Cholesterol TSH Arterial Blood Glucose Arterial Blood Ionized Calcium Urine Creatinine Urine Total Protein 04/29/21 04/29/21 04/30/21 18:04 23:42 00:55 RBC Hgb Hct MCV RDW Lymph % (Auto) [place] % (Auto) Lymph # (Auto) Seg Neutrophils % Seg Neuts % (Manual) Lymphocytes % (Manual) Monocytes % (Manual) Nucleated RBC % Lymphocytes # (Manual) D-Dimer Heparin Anti-Xa Level ABG pH POC ABG pCO2 POC ABG pO2 ABG pO2 ABG Hemoglobin ABG Oxyhemoglobin ABG Sodium ABG Potassium ABG Chloride ABG Glucose Carboxyhemoglobin Sodium Potassium 5.1 H D Chloride Carbon Dioxide BUN Creatinine Glucose POC Glucose 146 H 146 H Lactic Acid Calcium Phosphorus Magnesium AST ALT Total Creatine Kinase CK-MB (CK-2) Troponin T Total Protein Albumin Triglycerides Cholesterol LDL Cholesterol Direct HDL Cholesterol TSH Arterial Blood Glucose Arterial Blood Ionized Calcium Urine Creatinine Urine Total Protein 04/30/21 04/30/21 04/30/21 05:00 05:34 07:40 RBC Hgb Hct MCV RDW Lymph % (Auto) [place] % (Auto) Lymph # (Auto) Seg Neutrophils % Seg Neuts % (Manual) Lymphocytes % (Manual) Monocytes % (Manual) Nucleated RBC % Lymphocytes # (Manual) D-Dimer Heparin Anti-Xa Level ABG pH POC ABG pCO2 55.6 H POC ABG pO2 62.4 L ABG pO2 ABG Hemoglobin ABG Oxyhemoglobin 90.1 L ABG Sodium 146.8 H ABG Potassium ABG Chloride 109.0 H ABG Glucose 124 H Carboxyhemoglobin Sodium 149 H Potassium Chloride 109.5 H Carbon Dioxide 35 H BUN 33 H Creatinine Glucose 126 H POC Glucose 122 H Lactic Acid Calcium Phosphorus Magnesium 2.60 H AST ALT Total Creatine Kinase CK-MB (CK-2) Troponin T Total Protein 5.8 L Albumin 2.2 L Triglycerides 332 H Cholesterol LDL Cholesterol Direct HDL Cholesterol TSH Arterial Blood Glucose 124 H Arterial Blood Ionized Calcium Urine Creatinine Urine Total Protein 04/30/21 04/30/21 04/30/21 07:40 11:12 17:00 RBC Hgb Hct MCV RDW 16.3 H Lymph % (Auto) [place] % (Auto) Lymph # (Auto) Seg Neutrophils % 88.4 H Seg Neuts % (Manual) 82.0 H Lymphocytes % (Manual) 5.0 L Monocytes % (Manual) Nucleated RBC % Lymphocytes # (Manual) 0.4 L D-Dimer Heparin Anti-Xa Level ABG pH POC ABG pCO2 POC ABG pO2 ABG pO2 ABG Hemoglobin ABG Oxyhemoglobin ABG Sodium ABG Potassium ABG Chloride ABG Glucose Carboxyhemoglobin Sodium Potassium Chloride Carbon Dioxide BUN Creatinine Glucose POC Glucose 127 H Lactic Acid Calcium Phosphorus Magnesium AST ALT Total Creatine Kinase CK-MB (CK-2) Troponin T Total Protein Albumin Triglycerides 304 H Cholesterol LDL Cholesterol Direct HDL Cholesterol TSH Arterial Blood Glucose Arterial Blood Ionized Calcium Urine Creatinine Urine Total Protein 04/30/21 04/30/21 05/01/21 18:17 23:25 03:33 RBC Hgb Hct MCV RDW Lymph % (Auto) [place] % (Auto) Lymph # (Auto) Seg Neutrophils % Seg Neuts % (Manual) Lymphocytes % (Manual) Monocytes % (Manual) Nucleated RBC % Lymphocytes # (Manual) D-Dimer Heparin Anti-Xa Level ABG pH 7.275 L POC ABG pCO2 85.0 H POC ABG pO2 ABG pO2 ABG Hemoglobin ABG Oxyhemoglobin ABG Sodium ABG Potassium 5.0 H ABG Chloride ABG Glucose 150 H Carboxyhemoglobin Sodium Potassium Chloride Carbon Dioxide BUN Creatinine Glucose POC Glucose 151 H 143 H Lactic Acid Calcium Phosphorus Magnesium AST ALT Total Creatine Kinase CK-MB (CK-2) Troponin T Total Protein Albumin Triglycerides Cholesterol LDL Cholesterol Direct HDL Cholesterol TSH Arterial Blood Glucose 150 H Arterial Blood Ionized Calcium Urine Creatinine Urine Total Protein 05/01/21 05/01/21 05/01/21 04:55 05:08 05:08 RBC Hgb Hct MCV RDW 16.7 H Lymph % (Auto) [place] % (Auto) Lymph # (Auto) Seg Neutrophils % Seg Neuts % (Manual) Lymphocytes % (Manual) Monocytes % (Manual) Nucleated RBC % Lymphocytes # (Manual) D-Dimer Heparin Anti-Xa Level ABG pH POC ABG pCO2 POC ABG pO2 ABG pO2 ABG Hemoglobin ABG Oxyhemoglobin ABG Sodium ABG Potassium ABG Chloride ABG Glucose Carboxyhemoglobin Sodium Potassium 5.3 H D Chloride Carbon Dioxide 36 H BUN 39 H Creatinine Glucose 150 H POC Glucose 138 H Lactic Acid Calcium Phosphorus Magnesium AST ALT Total Creatine Kinase CK-MB (CK-2) Troponin T Total Protein Albumin Triglycerides Cholesterol LDL Cholesterol Direct HDL Cholesterol TSH Arterial Blood Glucose Arterial Blood Ionized Calcium Urine Creatinine Urine Total Protein 05/01/21 05/01/21 05/01/21 11:46 14:30 17:08 RBC Hgb Hct MCV RDW Lymph % (Auto) [place] % (Auto) Lymph # (Auto) Seg Neutrophils % Seg Neuts % (Manual) Lymphocytes % (Manual) Monocytes % (Manual) Nucleated RBC % Lymphocytes # (Manual) D-Dimer Heparin Anti-Xa Level ABG pH POC ABG pCO2 POC ABG pO2 ABG pO2 ABG Hemoglobin ABG Oxyhemoglobin ABG Sodium ABG Potassium ABG Chloride ABG Glucose Carboxyhemoglobin Sodium Potassium Chloride Carbon Dioxide BUN Creatinine Glucose POC Glucose 159 H 206 H Lactic Acid Calcium Phosphorus Magnesium 2.60 H AST ALT Total Creatine Kinase CK-MB (CK-2) Troponin T Total Protein Albumin Triglycerides Cholesterol LDL Cholesterol Direct HDL Cholesterol TSH Arterial Blood Glucose Arterial Blood Ionized Calcium Urine Creatinine Urine Total Protein 05/01/21 05/02/21 05/02/21 23:21 04:00 05:32 RBC Hgb Hct MCV RDW Lymph % (Auto) [place] % (Auto) Lymph # (Auto) Seg Neutrophils % Seg Neuts % (Manual) Lymphocytes % (Manual) Monocytes % (Manual) Nucleated RBC % Lymphocytes # (Manual) D-Dimer Heparin Anti-Xa Level ABG pH 7.213 L POC ABG pCO2 123.0 H POC ABG pO2 69.9 L ABG pO2 ABG Hemoglobin ABG Oxyhemoglobin 90.0 L ABG Sodium 148.1 H ABG Potassium 5.2 H ABG Chloride ABG Glucose 205 H Carboxyhemoglobin 1.9 H Sodium Potassium Chloride Carbon Dioxide BUN Creatinine Glucose POC Glucose 176 H 184 H Lactic Acid Calcium Phosphorus Magnesium AST ALT Total Creatine Kinase CK-MB (CK-2) Troponin T Total Protein Albumin Triglycerides Cholesterol LDL Cholesterol Direct HDL Cholesterol TSH Arterial Blood Glucose 205 H Arterial Blood Ionized Calcium Urine Creatinine Urine Total Protein 05/02/21 05/02/21 05/02/21 06:57 06:57 08:00 RBC Hgb Hct MCV RDW 17.5 H Lymph % (Auto) [place] % (Auto) Lymph # (Auto) Seg Neutrophils % Seg Neuts % (Manual) 84.0 H Lymphocytes % (Manual) 6.0 L Monocytes % (Manual) Nucleated RBC % 1.0 H Lymphocytes # (Manual) 0.6 L D-Dimer Heparin Anti-Xa Level ABG pH 7.267 L POC ABG pCO2 102.9 H POC ABG pO2 81.4 L ABG pO2 ABG Hemoglobin ABG Oxyhemoglobin 93.6 L ABG Sodium 148.0 H ABG Potassium 5.4 H ABG Chloride ABG Glucose 249 H Carboxyhemoglobin Sodium 148 H Potassium 5.6 H Chloride Carbon Dioxide 40 H BUN 36 H Creatinine Glucose 227 H POC Glucose Lactic Acid Calcium Phosphorus 2.20 L Magnesium 2.80 H AST 41 H ALT Total Creatine Kinase CK-MB (CK-2) Troponin T Total Protein Albumin 2.7 L Triglycerides Cholesterol LDL Cholesterol Direct HDL Cholesterol TSH Arterial Blood Glucose 249 H Arterial Blood Ionized Calcium Urine Creatinine Urine Total Protein 05/02/21 05/02/21 05/02/21 10:52 11:58 15:15 RBC Hgb Hct MCV RDW Lymph % (Auto) [place] % (Auto) Lymph # (Auto) Seg Neutrophils % Seg Neuts % (Manual) Lymphocytes % (Manual) Monocytes % (Manual) Nucleated RBC % Lymphocytes # (Manual) D-Dimer Heparin Anti-Xa Level ABG pH 7.260 L POC ABG pCO2 99.9 H POC ABG pO2 74.9 L ABG pO2 ABG Hemoglobin ABG Oxyhemoglobin 92.1 L ABG Sodium 146.4 H ABG Potassium 5.7 H ABG Chloride ABG Glucose 266 H Carboxyhemoglobin Sodium 152 H Potassium 5.4 H Chloride Carbon Dioxide 41 H* BUN 47 H Creatinine Glucose 269 H POC Glucose 268 H Lactic Acid Calcium Phosphorus Magnesium 2.80 H AST ALT Total Creatine Kinase CK-MB (CK-2) Troponin T Total Protein Albumin Triglycerides Cholesterol LDL Cholesterol Direct HDL Cholesterol TSH Arterial Blood Glucose 266 H Arterial Blood Ionized Calcium Urine Creatinine Urine Total Protein 05/02/21 05/03/21 05/03/21 18:05 00:06 03:45 RBC Hgb Hct MCV 98 H RDW 17.1 H Lymph % (Auto) [place] % (Auto) Lymph # (Auto) Seg Neutrophils % Seg Neuts % (Manual) Lymphocytes % (Manual) 9.0 L Monocytes % (Manual) Nucleated RBC % 6.0 H Lymphocytes # (Manual) 0.8 L D-Dimer Heparin Anti-Xa Level ABG pH POC ABG pCO2 POC ABG pO2 ABG pO2 ABG Hemoglobin ABG Oxyhemoglobin ABG Sodium ABG Potassium ABG Chloride ABG Glucose Carboxyhemoglobin Sodium Potassium Chloride Carbon Dioxide BUN Creatinine Glucose POC Glucose 225 H 230 H Lactic Acid Calcium Phosphorus Magnesium AST ALT Total Creatine Kinase CK-MB (CK-2) Troponin T Total Protein Albumin Triglycerides Cholesterol LDL Cholesterol Direct HDL Cholesterol TSH Arterial Blood Glucose Arterial Blood Ionized Calcium Urine Creatinine Urine Total Protein 05/03/21 05/03/21 05/03/21 03:45 04:00 05:29 RBC Hgb Hct MCV RDW Lymph % (Auto) [place] % (Auto) Lymph # (Auto) Seg Neutrophils % Seg Neuts % (Manual) Lymphocytes % (Manual) Monocytes % (Manual) Nucleated RBC % Lymphocytes # (Manual) D-Dimer Heparin Anti-Xa Level ABG pH 7.237 L POC ABG pCO2 99.9 H POC ABG pO2 74.8 L ABG pO2 ABG Hemoglobin 11.9 L ABG Oxyhemoglobin 91.9 L ABG Sodium 147.0 H ABG Potassium 5.2 H ABG Chloride ABG Glucose 196 H Carboxyhemoglobin Sodium 151 H Potassium 5.7 H Chloride Carbon Dioxide 40 H BUN 68 H Creatinine 1.8 H D Glucose 200 H POC Glucose 200 H Lactic Acid Calcium Phosphorus Magnesium 3.10 H AST 42 H ALT Total Creatine Kinase CK-MB (CK-2) Troponin T Total Protein Albumin 2.4 L Triglycerides Cholesterol LDL Cholesterol Direct HDL Cholesterol TSH Arterial Blood Glucose 196 H Arterial Blood Ionized Calcium Urine Creatinine Urine Total Protein 05/03/21 05/03/21 05/03/21 06:05 10:21 11:36 RBC Hgb Hct MCV RDW Lymph % (Auto) [place] % (Auto) Lymph # (Auto) Seg Neutrophils % Seg Neuts % (Manual) Lymphocytes % (Manual) Monocytes % (Manual) Nucleated RBC % Lymphocytes # (Manual) D-Dimer Heparin Anti-Xa Level ABG pH POC ABG pCO2 POC ABG pO2 ABG pO2 ABG Hemoglobin ABG Oxyhemoglobin ABG Sodium ABG Potassium ABG Chloride ABG Glucose Carboxyhemoglobin Sodium Potassium Chloride Carbon Dioxide BUN Creatinine Glucose POC Glucose 197 H Lactic Acid 2.20 H* Calcium Phosphorus Magnesium AST ALT Total Creatine Kinase CK-MB (CK-2) Troponin T Total Protein Albumin Triglycerides Cholesterol LDL Cholesterol Direct HDL Cholesterol TSH 0.051 L Arterial Blood Glucose Arterial Blood Ionized Calcium Urine Creatinine Urine Total Protein
[2021-05-03] MEDS ORDERED: CALCIUM CHLORIDE 1,000 MG in SODIUM CHLORIDE 0.9% 100 ML IV ONE (14:00)
[2021-05-03] MEDS ORDERED: SODIUM BICARB 8.4% 50 MEQ/50 ML SYRINGE IV ONE ×2 (15:55→17:44)
[2021-05-03] MEDS ORDERED: LACTATED RINGERS 1,000 ML ONE (15:56)
[2021-05-03] MEDS ORDERED: VANCOMYCIN 2,000 MG in SODIUM CHLORIDE 0.9% 500 ML 500 ML IV ONE (15:59)
[2021-05-03] MEDS ORDERED: VANCOMYCIN PHARMACY TO DOSE IV SCH (16:00)
[2021-05-03] MEDS: CEFEPIME/NS 2 GM/100 ML 2 GM/100 ML BAG IV SCH (16:12)
--- NOTE | 2021-05-03 16:26 | XRay Report ---
CHEST 1 VIEW 05/03/2021 3:19 PM INDICATION / CLINICAL INFORMATION: vented patient. COMPARISON: 05/02/2021. FINDINGS: SUPPORT DEVICES: Unchanged. HEART / MEDIASTINUM: Diffuse interstitial/airspace opacity remains with mild/moderate interval worsen ing. LUNGS / PLEURA: No significant pulmonary or pleural abnormality. No pneumothorax. ADDITIONAL FINDINGS: No significant additional findings. IMPRESSION: Interval worsening. Signer Name: Rafael Macario MD Signed: 05/03/2021 4:21 PM Workstation Name: [id number]
[2021-05-03 16:30] LABS: Creatinine,Urine 65.6 mg/dL (0.1-20.0)
[2021-05-03 16:37] LABS: Bacteria,Urine 2+ /HPF (Negative); Bilirubin,Urine NEG (Negative); Blood,Urine SM (Negative); Color,Urine Amber (Yellow); Mucus,Urine 2+ /HPF
[2021-05-03 16:48] LABS: Calcium 10.3 mg/dL (8.4-10.2)
[2021-05-03] MEDS: LORazepam 100 MG in SODIUM CHLORIDE 0.9% 50 ML, EMPTY BAG 0 ML IV SCH (17:33)
--- NOTE | 2021-05-03 17:49 | Electrocardiograph Report ---
[facility] Test Date: 2021-05-02 Test Time: 11:06:21 Pat Name: TYSHAWN DARBY Department: Room: A261 1 Gender: F Urgent Care Physician Assistant: NIKITA : 1955 Requested By: IAIN JOVEL Order Number: [id number] Reading MD: Dell Moralez Measurements Intervals [place] Rate: 137 P: 64 DC: 79 QRS: 63 QRSD: 69 T: QT: 271 QTc: 410 Interpretive Statements Sinus tachycardia Probable left atrial enlargement Left ventricular hypertrophy ST depr, consider ischemia, inferior leads ST elevation, consider anterior injury Compared to ECG 04/30/2021 10:57:22 Left ventricular hypertrophy now present Possible ischemia now present ST (T wave) deviation still present Electronically Signed On 05-03-2021 17:48:42 EDT by Dell Moralez
--- NOTE | 2021-05-03 17:56 | Electrocardiograph Report ---
[facility] Test Date: 2021-05-02 Test Time: 20:38:13 Pat Name: TYSHAWN DARBY Department: Room: A261 1 Gender: F Mash Grinder: BERNADINE : 1955 Requested By: TEJAS PASTOR Order Number: [id number] Reading MD: Dell Moralez Measurements Intervals [place] Rate: 73 P: 79 GA: 142 QRS: 47 QRSD: 80 T: 54 QT: 323 QTc: 356 Interpretive Statements Sinus rhythm Probable left atrial enlargement ST elevation secondary to LVH Compared to ECG 05/02/2021 11:06:21 Sinus tachycardia no longer present Possible ischemia no longer present Myocardial infarct finding no longer present ST (T wave) deviation still present Electronically Signed On 05-03-2021 17:55:38 EDT by Dell Moralez
--- NOTE | 2021-05-03 17:57 | Electrocardiograph Report ---
[facility] Test Date: 2021-05-02 Test Time: 20:39:15 Pat Name: TYSHAWN DARBY Department: Room: A261 1 Gender: F Morgue Technician: BERNADINE : 1955 Requested By: LIZ WHITT Order Number: [id number] Reading MD: Dell Moralez Measurements Intervals [place] Rate: 155 P: 58 CT: 99 QRS: 40 QRSD: 70 T: 71 QT: 259 QTc: 416 Interpretive Statements Sinus tachycardia Consider left ventricular hypertrophy Nonspecific T abnormalities, lateral leads Anterior ST elevation, probably due to LVH Compared to ECG 05/02/2021 20:38:13 rate is much faster. Electronically Signed On 05-03-2021 17:56:41 EDT by Dell Moralez
[2021-05-03] MEDS ORDERED: ONDANSETRON 4 MG/2 ML INJ IV PRN (18:23)
[2021-05-03] MEDS: SENNOSIDES/DOCUSATE SODIUM 8.6/50 MG TAB FEEDTUBE SCH (21:33)
[2021-05-03] MEDS ORDERED: fentaNYL 100 MCG/2 ML INJ IV ONE (23:00)
[2021-05-03] MEDS ORDERED: ACETAMINOPHEN 650 MG RECT SUPP PR PRN (23:39)
[2021-05-03] MEDS ORDERED: ACETAMINOPHEN 650 MG RECT SUPP PR ONE ×2 (23:42)
[2021-05-04] MEDS: INSULIN LISPRO 100 UNIT/ML SUB-Q SCH ×4 (00:05→17:38)
[2021-05-04] MEDS: methylPREDNISolone Sod Succinate 40 MG/1 ML INJ IV SCH ×4 (00:50→17:08)
[2021-05-04] MEDS: ENOXAPARIN 80 MG/0.8 ML INJ SUB-Q SCH ×2 (01:10→13:32)
[2021-05-04] MEDS: NORepinephrine/NS 4 MG-250 ML 4 MG/250 ML BAG IV SCH ×2 (02:14→19:00)
[2021-05-04] MEDS: FREE WATER PO SCH ×6 (03:46→22:17)
--- NOTE | 2021-05-04 03:53 | XRay Report ---
ABDOMEN 1 VIEW 05/04/2021 2:24 AM INDICATION / CLINICAL INFORMATION: abd distention. COMPARISON: 10/03/20 [phone] FINDINGS: TUBES / LINES: Esophagogastric tube projects over the mid stomach. BOWEL GAS PATTERN: Moderately dilated loops of small bowel and increased since the prior study. Small amount of gas in the colon. FREE AIR / EXTRALUMINAL GAS: None. ADDITIONAL FINDINGS: Numerous tiny calcified gallstones in the gallbladder. IMPRESSION: 1. Moderately dilated loops of small bowel which could represent partial small bowel obstruction. 2. Cholelithiasis. Signer Name: Ramo Nicholas MD Signed: 05/04/2021 3:49 AM Workstation Name: [id number]
[2021-05-04] MEDS: CEFEPIME/NS 2 GM/100 ML 2 GM/100 ML BAG IV SCH ×2 (04:28→17:07)
[2021-05-04] MEDS: VASOPRESSIN 20 UNIT in SODIUM CHLORIDE 0.9% 100 ML IV SCH ×2 (05:29→17:08)
[2021-05-04] MEDS: BUDESONIDE 0.5 MG/2 ML NEBU IH SCH ×2 (07:45→20:11)
[2021-05-04] MEDS: ARFORMOTEROL 15 MCG/2 ML NEBU IH SCH ×2 (07:45→20:11)
[2021-05-04 07:57] LABS: Hematocrit 29.8 % (30.3-42.9); Hemoglobin 9.5 gm/dl (10.1-14.3); Mean Corpuscular HGB Conc 32 % (30-34); Mean Corpuscular Volume 96 fl (79-97); Platelet Count 184 K/mm3 (140-440); Red Blood Count 3.12 M/mm3 (3.65-5.03); Red Cell Distribution Width 16.6 % (13.2-15.2)
[2021-05-04 08:15] LABS: Albumin 2.2 g/dL (3.9-5)
[2021-05-04] MEDS ORDERED: INSULIN REGULAR, HUMAN 100 UNITS/1 ML IV ONE (08:27)
[2021-05-04] MEDS ORDERED: DEXTROSE 50% IN WATER (25GM) 50 ML SYRINGE IV ONE (08:28)
[2021-05-04] MEDS ORDERED: CALCIUM GLUCONATE 1,000 MG in SODIUM CHLORIDE 0.9% 100 ML IV ONE (08:28)
[2021-05-04] MEDS: DEXTROSE 5% IN WATER 1,000 ML IV SCH ×2 (08:57→22:41)
[2021-05-04] MEDS: QUEtiapine 25 MG TAB PO SCH ×2 (09:06→21:20)
[2021-05-04] MEDS: levETIRAcetam 500 MG/5 ML ORAL LIQD PO SCH ×2 (09:06→21:19)
[2021-05-04] MEDS: FAMOTIDINE 20 MG TAB PO SCH (09:07)
[2021-05-04] MEDS: ASPIRIN 325 MG TAB PO SCH (09:07)
--- NOTE | 2021-05-04 09:39 | Progress Note ---
Assessment and Plan - Patient Problems (1) LIZBETH (acute kidney injury) Current Visit: Yes Status: Acute Plan to address problem: Likely in the setting of acute tubular necrosis and prerenal injury with now worsening volume overload and recurrent acute kidney injury noted on this admission. Agree with hemodynamic management with pressor support. Patient also started on gentle IV fluids which I would not increase at this time and in fact would recommend trying to minimize given chest x-ray findings. Please avoid all nephrotoxins and maintain mean arterial pressures above 65 mmHg. Overall patient's prognosis is very guarded at this time. She is nonoliguric. We have to closely monitor her urine output and I would challenge with 1 dose of Lasix today. (2) Acute respiratory failure with hypoxia Current Visit: Yes Status: Acute Plan to address problem: Chest x-ray reviewed with findings concerning for worsening volume overload and pulmonary edema. FiO2 has increased to 100% on current vent settings. I would recommend 1 dose of Lasix today 40 mg IV. Need to assess response. (3) Hypotension Current Visit: Yes Status: Acute Plan to address problem: Pressor requirements to maintain mean arterial pressures above 65 mmHg. Given her worsening chest x-ray findings I would recommend minimizing continuous IV fluids and titrating pressors as necessary. (4) Hyperkalemia Current Visit: Yes Status: Acute Plan to address problem: Given her abdominal x-ray findings of ileus I would commend avoiding Kayexalate. Continue medical therapy. Diuretic management would also help with further kaliuretic effect. Subjective Date of service: 05/04/21 Principal diagnosis: Acute kidney injury, rhabdomyolysis Interval history: Asked to reconsult on patient in the intensive care unit. Labs concerning for worsening renal insufficiency there is concern for worsening respiratory failure and increased oxygen requirements. Chest x-ray is concerning for worsening volume overload. Hemodynamically she has become more hypotensive and pressor requirements have increased over the last 24 to 48 hours. She has a Mcfadden in place at this time there is approximately 100 cc of urine noted. Objective - Vital Signs Vital signs: Vital Signs - 12hr 05/03/21 05/03/21 05/03/21 21:46 22:00 22:16 Temperature Pulse Rate 152 H 151 H 149 H Pulse Rate [ Anterior Bilateral] Respiratory 21 37 H 38 H Rate Respiratory Rate [Anterior Bilateral] Blood Pressure 123/77 123/77 123/77 O2 Sat by Pulse 46 L 43 L 58 L Oximetry 05/03/21 05/03/21 05/03/21 22:30 22:46 23:00 Temperature Pulse Rate 152 H 152 H 150 H Pulse Rate [ Anterior Bilateral] Respiratory 30 H 32 H 41 H Rate Respiratory Rate [Anterior Bilateral] Blood Pressure 123/77 123/77 123/77 O2 Sat by Pulse 53 L 65 L 75 L Oximetry 05/03/21 05/03/21 05/03/21 23:16 23:22 23:30 Temperature Pulse Rate 151 H 153 H 151 H Pulse Rate [ Anterior Bilateral] Respiratory 32 H 38 H Rate Respiratory Rate [Anterior Bilateral] Blood Pressure 123/77 89/60 123/77 O2 Sat by Pulse 69 L 78 L 74 L Oximetry 05/03/21 05/03/21 05/04/21 23:46 23:50 00:00 Temperature 101.1 F H Pulse Rate 150 H 150 H Pulse Rate [ Anterior Bilateral] Respiratory 25 H 28 H Rate Respiratory Rate [Anterior Bilateral] Blood Pressure 123/77 123/77 O2 Sat by Pulse 69 L 63 L Oximetry 05/04/21 05/04/21 05/04/21 00:16 00:30 00:46 Temperature Pulse Rate 150 H 150 H 152 H Pulse Rate [ Anterior Bilateral] Respiratory 30 H 37 H 51 H Rate Respiratory Rate [Anterior Bilateral] Blood Pressure 123/77 123/77 123/77 O2 Sat by Pulse 68 L 60 L 68 L Oximetry 05/04/21 05/04/21 05/04/21 01:00 01:16 01:30 Temperature Pulse Rate 151 H 147 H 146 H Pulse Rate [ Anterior Bilateral] Respiratory 32 H 25 H 27 H Rate Respiratory Rate [Anterior Bilateral] Blood Pressure 123/77 123/77 123/77 O2 Sat by Pulse 61 L 48 L 63 L Oximetry 05/04/21 05/04/21 05/04/21 01:46 02:00 02:16 Temperature Pulse Rate 147 H 146 H 145 H Pulse Rate [ Anterior Bilateral] Respiratory 31 H 42 H 40 H Rate Respiratory Rate [Anterior Bilateral] Blood Pressure 123/77 123/77 123/77 O2 Sat by Pulse 50 L 47 L 57 L Oximetry 05/04/21 05/04/21 05/04/21 02:30 02:46 03:00 Temperature Pulse Rate 143 H 142 H 139 H Pulse Rate [ Anterior Bilateral] Respiratory 24 25 H 24 Rate Respiratory Rate [Anterior Bilateral] Blood Pressure 123/77 123/77 123/77 O2 Sat by Pulse 72 L 72 L 75 L Oximetry 05/04/21 05/04/21 05/04/21 03:16 03:30 03:45 Temperature 99.6 F Pulse Rate 139 H 138 H Pulse Rate [ Anterior Bilateral] Respiratory 26 H 25 H Rate Respiratory Rate [Anterior Bilateral] Blood Pressure 123/77 123/77 O2 Sat by Pulse 94 95 Oximetry 05/04/21 05/04/21 05/04/21 03:46 04:00 04:16 Temperature Pulse Rate 138 H 136 H 137 H Pulse Rate [ Anterior Bilateral] Respiratory 24 24 25 H Rate Respiratory Rate [Anterior Bilateral] Blood Pressure 123/77 123/77 123/77 O2 Sat by Pulse 93 95 94 Oximetry 05/04/21 05/04/21 05/04/21 04:30 04:45 04:46 Temperature Pulse Rate 136 H 135 H 136 H Pulse Rate [ Anterior Bilateral] Respiratory 24 24 Rate Respiratory Rate [Anterior Bilateral] Blood Pressure 123/77 127/71 123/77 O2 Sat by Pulse 90 88 88 Oximetry 05/04/21 05/04/21 05/04/21 05:00 05:16 05:30 Temperature Pulse Rate 135 H 136 H 137 H Pulse Rate [ Anterior Bilateral] Respiratory 25 H 24 24 Rate Respiratory Rate [Anterior Bilateral] Blood Pressure 123/77 123/77 123/77 O2 Sat by Pulse 94 32 L Oximetry 05/04/21 05/04/21 05/04/21 05:46 06:00 06:16 Temperature Pulse Rate 135 H 135 H 135 H Pulse Rate [ Anterior Bilateral] Respiratory 24 24 24 Rate Respiratory Rate [Anterior Bilateral] Blood Pressure 123/77 123/77 123/77 O2 Sat by Pulse 30 L 26 L 29 L Oximetry 05/04/21 05/04/21 05/04/21 06:30 06:46 07:00 Temperature Pulse Rate 133 H 132 H 133 H Pulse Rate [ Anterior Bilateral] Respiratory 24 24 24 Rate Respiratory Rate [Anterior Bilateral] Blood Pressure 123/77 123/77 123/77 O2 Sat by Pulse 24 L 47 L 48 L Oximetry 05/04/21 05/04/21 05/04/21 07:16 07:30 07:45 Temperature Pulse Rate 134 H 133 H 133 H Pulse Rate [ 132 H Anterior Bilateral] Respiratory 25 H 25 H Rate Respiratory 24 Rate [Anterior Bilateral] Blood Pressure 123/77 123/77 111/68 O2 Sat by Pulse 47 L 47 L 86 Oximetry 05/04/21 05/04/21 05/04/21 07:46 08:00 08:16 Temperature 99.1 F Pulse Rate 133 H 133 H 130 H Pulse Rate [ Anterior Bilateral] Respiratory 25 H 24 23 Rate Respiratory Rate [Anterior Bilateral] Blood Pressure 123/77 123/77 123/77 O2 Sat by Pulse 49 L 66 L 60 L Oximetry 05/04/21 05/04/21 05/04/21 08:30 08:46 09:00 Temperature Pulse Rate 129 H 130 H 126 H Pulse Rate [ Anterior Bilateral] Respiratory 24 24 24 Rate Respiratory Rate [Anterior Bilateral] Blood Pressure 123/77 123/77 123/77 O2 Sat by Pulse 50 L 60 L 93 Oximetry - General Appearance General appearance: chronically ill, intubated, frail EENT: ATNC Neck: no JVD Respiratory: Present: Decreased Breath Sounds Cardiology: tachycardia Gastrointestinal: normal Integumentary: warm and dry Musculoskeletal: deferred - Lab 05/04/21 07:11 05/04/21 07:11 Most recent lab results ABG pH 7.384 (7.320-7.450) 05/04/21 03:39 ABG pCO2 46.0 mm Hg 04/22/21 17:30 ABG pO2 99.6 mm Hg (80.0-90.0) H 04/22/21 17:30 ABG HCO3 24.4 mmol/L (20.0-26.0) 04/22/21 17:30 ABG O2 Saturation 86.0 (0-100) 05/04/21 03:39 Calcium 10.0 mg/dL (8.4-10.2) 05/04/21 07:11 Phosphorus 3.40 mg/dL (2.5-4.5) D 05/04/21 07:11 Magnesium 3.10 mg/dL (1.7-2.3) H 05/04/21 07:11 Urine Creatinine 65.6 mg/dL (0.1-20.0) H 05/03/21 16:10 Urine Sodium 38 mmol/L 05/03/21 16:10 Urine Total Protein 86 mg/dL (5-11.8) H 04/22/21 13:03 - Allied health notes Allied health notes reviewed: nursing Medications & Allergies - Medications Allergies/Adverse Reactions: Allergies No Known Allergies Allergy (Unverified 03/04/19 19:33) Home Medications: Home Medications Medication Instructions Recorded Confirmed Last Taken Type Lipitor 40 mg PO QHS #30 03/10/19 04/25/21 Unknown Rx Aspirin 300 mg PO QDAY 04/25/21 04/25/21 Unknown History Aspirin [Aspirin BABY CHEW TAB] 81 mg PO QDAY 04/25/21 04/25/21 Unknown History Sertraline [Zoloft] 50 mg PO QDAY 04/25/21 04/25/21 Unknown History amLODIPine 10 mg PO QDAY 04/25/21 04/25/21 Unknown History hydroCHLOROthiazide 12.5 mg PO QDAY 04/25/21 04/25/21 Unknown History [Hydrochlorothiazide] Active Medications: Generic Name Dose Route Start Last Admin Trade Name Freq PRN Reason Stop Dose Admin Acetaminophen 650 mg 04/21/21 21:11 04/28/21 16:30 Acetaminophen 325 Mg Tab PO 650 mg Q4H PRN Administration Pain MILD(1-3)/Fever >100.5/DICKINSON Acetaminophen 650 mg 05/03/21 23:39 Acetaminophen 650 Mg Rect Supp TN Q6H PRN Feverr>100.5 Lipase/Protease/Amylase 1 each 04/22/21 10:51 Lipase 10,500/Protease 25,000/Amylase 43,750 (Units) Dr Ryan FEEDTUBE PRN PRN For Clogged Feeding Tube Arformoterol Tartrate 15 mcg 04/29/21 20:00 05/04/21 07:45 Arformoterol 15 Mcg/2 Ml Nebu IH 15 mcg Q12HRT MINOR Administration Aspirin 325 mg 05/01/21 13:00 05/04/21 09:07 Aspirin 325 Mg Tab PO 325 mg QDAY MINOR Administration Atorvastatin Calcium 40 mg 05/01/21 22:00 05/03/21 21:33 Atorvastatin 40 Mg Tab PO 40 mg QHS MINOR Administration Budesonide 0.5 mg 04/29/21 20:00 05/04/21 07:45 Budesonide 0.5 Mg/2 Ml Nebu IH 0.5 mg Q12HRT MINOR Administration Dextrose 50 ml 05/03/21 12:25 05/03/21 12:44 Dextrose 50% In Water (25gm) 50 Ml Syringe IV 50 ml Q30MIN PRN Administration Hypoglycemia Protocol Enoxaparin Sodium 80 mg 04/29/21 14:00 05/04/21 01:10 Enoxaparin 80 Mg/0.8 Ml Inj SUB-Q 80 mg Q12H MINOR Administration Famotidine 20 mg 05/04/21 10:00 05/04/21 09:07 Famotidine 20 Mg Tab PO 20 mg DAILY MINOR Administration Hydralazine HCl 10 mg 04/29/21 12:23 Hydralazine 20 Mg/1 Ml Inj IV Q4H PRN Hypertension Hydrophilic Ointment 1 applic 04/21/21 15:46 Lip Therapy Vaseline TP Q2HR PRN Dry Lips Propofol 1,000 mg in 100 mls @ 2.19 mls/hr 04/26/21 11:00 05/04/21 06:33 Diprivan 10 Mg/Ml IV 10 mcg/kg/min TITR MINOR 4.38 mls/hr Titration Protocol 5 MCG/KG/MIN Lorazepam 100 mg/ Sodium 100 mls @ 1 mls/hr 04/30/21 11:00 05/04/21 01:11 Chloride/ Miscellaneous IV 2 mg/hr Information TITR MINOR 2 mls/hr Titration Protocol 1 MG/HR Vasopressin 20 unit/ Sodium 101 mls @ 9.09 mls/hr 05/02/21 21:00 05/04/21 05:29 Chloride IV 0.03 units/min TITR MINOR 9.09 mls/hr Administration Protocol 0.03 UNITS/MIN Norepinephrine 4 mg in 250 mls @ 7.5 mls/hr 05/03/21 02:00 05/04/21 06:34 Levophed Drip 4 Mg/Ns 250 Ml IV 4 mcg/min TITR MINOR 15 mls/hr Titration Protocol 2 MCG/MIN Cefepime HCl 2 gm in 100 mls @ 200 mls/hr 05/03/21 16:00 05/04/21 04:58 Cefepime/Ns 2 Gm/100 Ml IV Infused Q12H MINOR Infusion Protocol Vancomycin HCl 1 gm in 250 mls @ 167.007 mls/hr 05/04/21 16:00 Vancomycin/Ns 1 Gm/250 Ml IV Q24H MINOR Dextrose 1,000 mls @ 75 mls/hr 05/04/21 09:00 05/04/21 08:57 D5w IV 75 mls/hr DIRECT MINOR Administration Insulin Human Lispro 0 unit 05/03/21 00:00 05/04/21 06:21 Insulin Lispro 100 Unit/Ml SUB-Q Not Given Q6HR [facility] Protocol Levetiracetam 750 mg 04/25/21 10:00 05/04/21 09:06 Levetiracetam 500 Mg/5 Ml Oral Liqd PO 750 mg BID MINOR Administration Methylprednisolone Sodium Succinate 60 mg 04/28/21 06:00 05/04/21 06:29 Methylprednisolone Sod Succinate 40 Mg/1 Ml Inj IV 60 mg Q6H MINOR Administration Multi-Ingred Cream/Lotion/Oil/Oint 1 applic 04/21/21 15:46 Mineral Oil/Petrolatum, White Ophth Oint 3.5 Gm OU Q4HR PRN Dry Eye(s) Ondansetron HCl 4 mg 05/03/21 18:23 05/03/21 18:40 Ondansetron 4 Mg/2 Ml Inj IV 4 mg Q6H PRN Administration Nausea And Vomiting Polyethylene Glycol 17 gm 05/02/21 15:00 Polyethylene Glycol 3350 17 Gm Powder PO QDAY PRN Constipation Quetiapine Fumarate 25 mg 04/30/21 11:00 05/04/21 09:06 Quetiapine 25 Mg Tab PO 25 mg BID MINOR Administration Senna/Docusate Sodium 1 tab 04/26/21 22:00 05/03/21 21:33 Sennosides/Docusate Sodium 8.6/50 Mg Tab FEEDTUBE 1 tab QHS MINOR Administration Simple Syrup 15 ml 04/22/21 10:51 Simple Syrup 15 Ml FEEDTUBE PRN PRN Hypoglycemia Simple Syrup 30 ml 04/22/21 10:51 Simple Syrup 15 Ml FEEDTUBE PRN PRN Hypoglycemia Sodium Bicarbonate 325 mg 04/22/21 10:51 Sodium Bicarbonate 325 Mg Tab FEEDTUBE PRN PRN For Clogged Feeding Tube Sodium Chloride 10 ml 04/21/21 22:00 05/04/21 09:06 Sodium Chloride 0.9% 10 Ml Flush Syringe IV 10 ml BID MINOR Administration Sodium Chloride 10 ml 04/21/21 21:11 04/27/21 02:54 Sodium Chloride 0.9% 10 Ml Flush Syringe IV 10 ml PRN PRN Administration LINE FLUSH
[2021-05-04] MEDS ORDERED: FUROSEMIDE 40 MG/4 ML INJ IV ONE (10:00)
--- NOTE | 2021-05-04 14:53 | Progress Note ---
Assessment and Plan 66 y/o female, intubated for airway protection, found to have severe ILD and no has refractory hypoxemia. 05/04/21: Appreciate renal help and agree with trial of lasix. Made adjustments to aprv to help with ventilation. Repeat gas in 1 hour. Getting lasix, but suggest repeat chemistry tonight around 2100. Maintain sedation to rass of -4. Wean FiO2 for sats >88%. ok with pH's of >7.2. Overall prognosis remains guarded. Will reach out to daughter in the am. Guarded prognosis. Will check triglyceride levels in the am. 05/03/21: Found to have ileus on ABD x-ray. Hold feeds and continue to suction. Repeat imaging in am. Need to address hyperkalemia with IV therapy given Ileus. Will do insulin and Kayexalate therapy. Suggest repeat K later this evening. Dropped FiO2 to 90, continue to wean for sats greater 88%. No lasix today. Will give a liter bolus of LR. May need an additional bolus. Unable to transduce CVP from picc. Continue IV steroids. Repeat ABG in am. Suspect that renal insufficiency will be transient but will monitor closely. Guarded prognosis. Need to hold on CT given instability. 05/02/21: Continue current level of sedation. Maintain current TV settings and repeat ABG in am. Goal is to get FiO2 at 60 or less in the next 24 hours. Once FiO2 less than 50% can start weaning PEEP. Repeat IV lasix today. Will likely need more free water. Continue steroids. Guarded prognosis. 05/01/21: Continue Ativan and Diprovan drip. Maintain low tidal volume and high PEEP and as long as pH is greater than 7.2. continue diuresis with IV lasix. Guarded prognosis. Will call daughter back today. Continue High dose IV steroids for now. 04/30/21: Will add Ativan drip and attempt to wean Precedex to off. Once adequate sedation achieved and BP stable, will give an additional dose of IV l asix today. Increased Free Water to 250q4. Ok with current Triglyceride level but will need to repeat. Prognosis remains guarded. Will call daughter to update her. 04/29/21: Continue low tidal volumes and high PEEPs. Lasix 40mg IV x1 today. Continue high dose steroids. Will start pulmicort and brovana therapy. Prognosis remains very very guarded. Follow up Triglyceride episode tomorrow. 04/26/21: Dropped tidal volume to 300. Keep PEEP at 16. Repeat ABG at 1230. Now that BP is better will give lasix 40 IV x1. Please assess again tomorrow and see if she would benefit from this. Pulse dose steroids through tomorrow and then solumedrol 60q6 starting on Thursday. Spoke with daughter over the phone who confirmed that mother was a smoker, heavy for 30+ years. Will start on BID pulmicort and brovana therapy. Overall prognosis discussed with daughter regarding possible need for trach and vent dependence. She asked about lung tx which I explained is not an option at this time. She seemed to express understanding but was mainly in shock as she had no idea her mother had ILD and per daughter, mother never saw a lung physician. Guarded to poor prognosis. My partner rounding over the weekend, I am back on Thursday. 04/25/21: Picc line today. Increase PEEP to 16. Dropped TV back to 375. pH of 7.2 and greater is acceptable. Will also pulse dose for the next 72 hours and then transition to q6 dosing on Thursday. Will discuss current clinical state with daughter. Serial ABG's today to make sure pH stays where it needs to be and hopeful improvement in oxygenation. Guarded prognosis. 04/24/21: Will drop TV to 375 and Increase PEEP to 14. Will repeat ABG in one hour. If no improvements, may need to consider IV steroids for 48-72 hours. Exact etiology of chronic lung disease is not known. Would prefer not to give sedation vacation given high levels of oxygen required as agitation could make things worse. Right now, unable to determine current neuro state. Lungs are very very sick and even though this is a chronic issue, now with her drive diminished from the ventilator, most likely will be a difficult wean. Will discuss with family soon what the next steps could potentially be but would need to assess mental state first. Guarded prognosis. 1. Increase PEEP and repeat ABG 2. May need to consider IV steroids 3. Follow up neuro recs 4. Guarded prognosis. cCT 31 minutes. Subjective Date of service: 05/04/21 Principal diagnosis: Acute kidney injury, rhabdomyolysis Interval history: Placed patient on APRV this am. PaO2 increased to 69 but PCO2 increased to 117. pH was still acceptable. BP better but still on levo and vasopressin. Remainder is negative. Objective Vital Signs - 12hr 05/04/21 05/04/21 05/04/21 03:00 03:16 03:30 Temperature Pulse Rate 139 H 139 H 138 H Pulse Rate [ Anterior Bilateral] Respiratory 24 26 H 25 H Rate Respiratory Rate [Anterior Bilateral] Blood Pressure 123/77 123/77 123/77 O2 Sat by Pulse 75 L 94 95 Oximetry 05/04/21 05/04/21 05/04/21 03:45 03:46 04:00 Temperature 99.6 F Pulse Rate 138 H 136 H Pulse Rate [ Anterior Bilateral] Respiratory 24 24 Rate Respiratory Rate [Anterior Bilateral] Blood Pressure 123/77 123/77 O2 Sat by Pulse 93 95 Oximetry 05/04/21 05/04/21 05/04/21 04:16 04:30 04:45 Temperature Pulse Rate 137 H 136 H 135 H Pulse Rate [ Anterior Bilateral] Respiratory 25 H 24 Rate Respiratory Rate [Anterior Bilateral] Blood Pressure 123/77 123/77 127/71 O2 Sat by Pulse 94 90 88 Oximetry 05/04/21 05/04/21 05/04/21 04:46 05:00 05:16 Temperature Pulse Rate 136 H 135 H 136 H Pulse Rate [ Anterior Bilateral] Respiratory 24 25 H 24 Rate Respiratory Rate [Anterior Bilateral] Blood Pressure 123/77 123/77 123/77 O2 Sat by Pulse 88 94 32 L Oximetry 05/04/21 05/04/21 05/04/21 05:30 05:46 06:00 Temperature Pulse Rate 137 H 135 H 135 H Pulse Rate [ Anterior Bilateral] Respiratory 24 24 24 Rate Respiratory Rate [Anterior Bilateral] Blood Pressure 123/77 123/77 123/77 O2 Sat by Pulse 30 L 26 L Oximetry 05/04/21 05/04/21 05/04/21 06:16 06:30 06:46 Temperature Pulse Rate 135 H 133 H 132 H Pulse Rate [ Anterior Bilateral] Respiratory 24 24 24 Rate Respiratory Rate [Anterior Bilateral] Blood Pressure 123/77 123/77 123/77 O2 Sat by Pulse 29 L 24 L 47 L Oximetry 05/04/21 05/04/21 05/04/21 07:00 07:16 07:30 Temperature Pulse Rate 133 H 134 H 133 H Pulse Rate [ Anterior Bilateral] Respiratory 24 25 H 25 H Rate Respiratory Rate [Anterior Bilateral] Blood Pressure 123/77 123/77 123/77 O2 Sat by Pulse 48 L 47 L 47 L Oximetry 05/04/21 05/04/21 05/04/21 07:45 07:46 08:00 Temperature 99.1 F Pulse Rate 133 H 133 H 133 H Pulse Rate [ 132 H Anterior Bilateral] Respiratory 25 H 24 Rate Respiratory 24 Rate [Anterior Bilateral] Blood Pressure 111/68 123/77 123/77 O2 Sat by Pulse 86 49 L 82 L Oximetry 05/04/21 05/04/21 05/04/21 08:16 08:30 08:46 Temperature Pulse Rate 130 H 129 H 130 H Pulse Rate [ Anterior Bilateral] Respiratory 23 24 24 Rate Respiratory Rate [Anterior Bilateral] Blood Pressure 123/77 123/77 123/77 O2 Sat by Pulse 60 L 50 L 60 L Oximetry 05/04/21 05/04/21 05/04/21 09:00 09:16 09:30 Temperature Pulse Rate 126 H 129 H 133 H Pulse Rate [ Anterior Bilateral] Respiratory 24 25 H 24 Rate Respiratory Rate [Anterior Bilateral] Blood Pressure 123/77 123/77 123/77 O2 Sat by Pulse 93 95 94 Oximetry 05/04/21 05/04/21 05/04/21 09:46 10:00 10:16 Temperature Pulse Rate 133 H 132 H 134 H Pulse Rate [ Anterior Bilateral] Respiratory 25 H 26 H 26 H Rate Respiratory Rate [Anterior Bilateral] Blood Pressure 123/77 123/77 123/77 O2 Sat by Pulse 94 94 95 Oximetry 05/04/21 05/04/21 05/04/21 10:30 10:46 11:00 Temperature Pulse Rate 135 H 135 H 140 H Pulse Rate [ Anterior Bilateral] Respiratory 25 H 26 H 25 H Rate Respiratory Rate [Anterior Bilateral] Blood Pressure 123/77 123/77 123/77 O2 Sat by Pulse 97 92 92 Oximetry 05/04/21 05/04/21 05/04/21 11:16 11:30 11:40 Temperature Pulse Rate 135 H 136 H 136 H Pulse Rate [ Anterior Bilateral] Respiratory 26 H 27 H Rate Respiratory Rate [Anterior Bilateral] Blood Pressure 123/77 108/70 O2 Sat by Pulse 75 L 72 L 80 L Oximetry 05/04/21 05/04/21 05/04/21 11:46 12:00 12:05 Temperature 98.9 F Pulse Rate 137 H 137 H 139 H Pulse Rate [ Anterior Bilateral] Respiratory 26 H 27 H 26 H Rate Respiratory Rate [Anterior Bilateral] Blood Pressure 110/69 O2 Sat by Pulse 82 L 80 L 96 Oximetry 05/04/21 05/04/21 05/04/21 12:16 12:30 12:46 Temperature Pulse Rate 133 H 138 H 138 H Pulse Rate [ Anterior Bilateral] Respiratory 10 L 10 L 11 L Rate Respiratory Rate [Anterior Bilateral] Blood Pressure O2 Sat by Pulse 93 96 96 Oximetry 05/04/21 05/04/21 05/04/21 13:00 13:16 13:30 Temperature Pulse Rate 139 H 139 H 138 H Pulse Rate [ Anterior Bilateral] Respiratory 10 L 11 L 11 L Rate Respiratory Rate [Anterior Bilateral] Blood Pressure O2 Sat by Pulse 95 94 93 Oximetry 05/04/21 05/04/21 05/04/21 13:46 14:00 14:16 Temperature Pulse Rate 138 H 138 H 141 H Pulse Rate [ Anterior Bilateral] Respiratory 11 L 11 L 9 L Rate Respiratory Rate [Anterior Bilateral] Blood Pressure O2 Sat by Pulse 91 90 91 Oximetry Constitutional: no acute distress, other (Sedated) Ascultation: Bilateral: rales, rhonchi CBC and BMP: 05/04/21 07:11 05/04/21 07:11 ABG, PT/INR, D-dimer: ABG ABG pH 7.275 (7.320-7.450) L 05/04/21 13:53 POC ABG pCO2 117.3 mmHg (32.0-48.0) H 05/04/21 13:53 ABG pCO2 46.0 mm Hg 04/22/21 17:30 POC ABG pO2 69.8 mmHg (83-108) L 05/04/21 13:53 ABG pO2 99.6 mm Hg (80.0-90.0) H 04/22/21 17:30 POC ABG HCO3 53.3 05/04/21 13:53 ABG O2 Saturation 91.0 (0-100) 05/04/21 13:53 PT/INR, D-dimer PT 13.2 Sec. (12.2-14.9) 04/22/21 00:32 INR 0.95 (0.87-1.13) 04/22/21 00:32 D-Dimer 1522.26 ng/mlDDU (0-234) H 04/21/21 16:30 Abnormal lab findings: Abnormal Labs 04/21/21 04/21/21 04/21/21 14:40 15:42 16:30 RBC Hgb Hct MCV RDW Lymph % (Auto) [facility] % (Auto) Lymph # (Auto) Seg Neutrophils % Seg Neuts % (Manual) Lymphocytes % (Manual) Monocytes % (Manual) Nucleated RBC % Lymphocytes # (Manual) D-Dimer 1522.26 H Heparin Anti-Xa Level ABG pH POC ABG pCO2 POC ABG pO2 45.5 L 69.9 L ABG pO2 ABG Hemoglobin ABG Oxyhemoglobin 78.6 L 90.2 L ABG Sodium ABG Potassium ABG Chloride 111.0 H ABG Glucose 156 H 148 H Carboxyhemoglobin Sodium Potassium Chloride Carbon Dioxide BUN Creatinine Glucose POC Glucose Lactic Acid Calcium Phosphorus Magnesium AST ALT Total Creatine Kinase CK-MB (CK-2) Troponin T Total Protein Albumin Triglycerides Cholesterol LDL Cholesterol Direct HDL Cholesterol TSH Arterial Blood Glucose 156 H 148 H Arterial Blood Ionized Calcium 4.5 L Urine WBC (Auto) Urine Creatinine Urine Total Protein 04/21/21 04/21/21 04/22/21 16:32 16:32 00:32 RBC 5.22 H Hgb 16.2 H 14.8 H Hct 48.6 H 44.4 H MCV RDW 15.8 H Lymph % (Auto) [facility] % (Auto) Lymph # (Auto) Seg Neutrophils % Seg Neuts % (Manual) 79.0 H Lymphocytes % (Manual) 13.0 L Monocytes % (Manual) 8.0 H Nucleated RBC % Lymphocytes # (Manual) 1.1 L D-Dimer Heparin Anti-Xa Level ABG pH POC ABG pCO2 POC ABG pO2 ABG pO2 ABG Hemoglobin ABG Oxyhemoglobin ABG Sodium ABG Potassium ABG Chloride ABG Glucose Carboxyhemoglobin Sodium Potassium Chloride Carbon Dioxide 21 L BUN 24 H Creatinine 1.3 H Glucose 130 H POC Glucose Lactic Acid Calcium Phosphorus Magnesium AST 129 H ALT 61 H Total Creatine Kinase 3055 H CK-MB (CK-2) 22.4 H Troponin T 0.055 H Total Protein Albumin 3.6 L Triglycerides 235 H Cholesterol 220 H LDL Cholesterol Direct 142 H HDL Cholesterol 36 L TSH Arterial Blood Glucose Arterial Blood Ionized Calcium Urine WBC (Auto) Urine Creatinine Urine Total Protein 04/22/21 04/22/21 04/22/21 03:27 05:29 05:29 RBC Hgb 15.4 H Hct 45.8 H MCV RDW 16.0 H Lymph % (Auto) 12.0 L [facility] % (Auto) 8.0 H Lymph # (Auto) 1.1 L Seg Neutrophils % 76.3 H Seg Neuts % (Manual) Lymphocytes % (Manual) Monocytes % (Manual) Nucleated RBC % Lymphocytes # (Manual) D-Dimer Heparin Anti-Xa Level ABG pH POC ABG pCO2 POC ABG pO2 ABG pO2 ABG Hemoglobin ABG Oxyhemoglobin ABG Sodium ABG Potassium 4.7 H ABG Chloride 109.0 H ABG Glucose 155 H Carboxyhemoglobin 0.4 L Sodium Potassium 6.3 H* D Chloride Carbon Dioxide BUN 26 H Creatinine Glucose 134 H POC Glucose Lactic Acid Calcium Phosphorus Magnesium AST 123 H ALT Total Creatine Kinase CK-MB (CK-2) Troponin T Total Protein Albumin 3.6 L Triglycerides Cholesterol LDL Cholesterol Direct HDL Cholesterol TSH Arterial Blood Glucose 155 H Arterial Blood Ionized Calcium Urine WBC (Auto) Urine Creatinine Urine Total Protein 04/22/21 04/22/21 04/22/21 13:03 13:25 17:30 RBC Hgb Hct MCV RDW Lymph % (Auto) [facility] % (Auto) Lymph # (Auto) Seg Neutrophils % Seg Neuts % (Manual) Lymphocytes % (Manual) Monocytes % (Manual) Nucleated RBC % Lymphocytes # (Manual) D-Dimer Heparin Anti-Xa Level ABG pH 7.343 L POC ABG pCO2 POC ABG pO2 ABG pO2 99.6 H ABG Hemoglobin ABG Oxyhemoglobin ABG Sodium ABG Potassium ABG Chloride ABG Glucose Carboxyhemoglobin Sodium Potassium Chloride Carbon Dioxide BUN Creatinine Glucose POC Glucose Lactic Acid Calcium Phosphorus Magnesium AST ALT Total Creatine Kinase 2322 H CK-MB (CK-2) Troponin T Total Protein Albumin Triglycerides Cholesterol LDL Cholesterol Direct HDL Cholesterol TSH Arterial Blood Glucose Arterial Blood Ionized Calcium Urine WBC (Auto) Urine Creatinine 138.9 H Urine Total Protein 86 H 04/22/21 04/23/21 04/23/21 20:00 04:42 09:53 RBC Hgb Hct MCV RDW Lymph % (Auto) [facility] % (Auto) Lymph # (Auto) Seg Neutrophils % Seg Neuts % (Manual) Lymphocytes % (Manual) Monocytes % (Manual) Nucleated RBC % Lymphocytes # (Manual) D-Dimer Heparin Anti-Xa Level 2.00 H < 0.10 L ABG pH POC ABG pCO2 POC ABG pO2 ABG pO2 ABG Hemoglobin ABG Oxyhemoglobin 83.2 L ABG Sodium ABG Potassium ABG Chloride 113.0 H ABG Glucose 107 H Carboxyhemoglobin Sodium Potassium Chloride Carbon Dioxide BUN Creatinine Glucose POC Glucose Lactic Acid Calcium Phosphorus Magnesium AST ALT Total Creatine Kinase CK-MB (CK-2) Troponin T Total Protein Albumin Triglycerides Cholesterol LDL Cholesterol Direct HDL Cholesterol TSH Arterial Blood Glucose 107 H Arterial Blood Ionized Calcium Urine WBC (Auto) Urine Creatinine Urine Total Protein 04/23/21 04/23/21 04/23/21 14:21 14:21 15:11 RBC Hgb Hct MCV RDW 16.3 H Lymph % (Auto) [facility] % (Auto) Lymph # (Auto) Seg Neutrophils % Seg Neuts % (Manual) Lymphocytes % (Manual) Monocytes % (Manual) Nucleated RBC % Lymphocytes # (Manual) D-Dimer Heparin Anti-Xa Level ABG pH POC ABG pCO2 POC ABG pO2 68.6 L ABG pO2 ABG Hemoglobin ABG Oxyhemoglobin 91.3 L ABG Sodium ABG Potassium ABG Chloride 113.0 H ABG Glucose 100 H Carboxyhemoglobin Sodium Potassium Chloride 113.1 H Carbon Dioxide 20 L BUN 18 H Creatinine Glucose POC Glucose Lactic Acid Calcium 8.2 L Phosphorus Magnesium AST 59 H ALT Total Creatine Kinase 681 H CK-MB (CK-2) Troponin T Total Protein 5.5 L Albumin 2.3 L Triglycerides Cholesterol LDL Cholesterol Direct HDL Cholesterol TSH Arterial Blood Glucose 100 H Arterial Blood Ionized Calcium Urine WBC (Auto) Urine Creatinine Urine Total Protein 04/23/21 04/24/21 04/24/21 18:30 04:00 05:37 RBC Hgb Hct MCV RDW Lymph % (Auto) [facility] % (Auto) Lymph # (Auto) Seg Neutrophils % Seg Neuts % (Manual) Lymphocytes % (Manual) Monocytes % (Manual) Nucleated RBC % Lymphocytes # (Manual) D-Dimer Heparin Anti-Xa Level 1.84 H ABG pH POC ABG pCO2 POC ABG pO2 51.9 L ABG pO2 ABG Hemoglobin ABG Oxyhemoglobin 84.9 L ABG Sodium ABG Potassium ABG Chloride 112.0 H ABG Glucose 138 H Carboxyhemoglobin Sodium Potassium Chloride Carbon Dioxide BUN Creatinine Glucose POC Glucose 108 H Lactic Acid Calcium Phosphorus Magnesium AST ALT Total Creatine Kinase CK-MB (CK-2) Troponin T Total Protein Albumin Triglycerides Cholesterol LDL Cholesterol Direct HDL Cholesterol TSH Arterial Blood Glucose 138 H Arterial Blood Ionized Calcium Urine WBC (Auto) Urine Creatinine Urine Total Protein 04/24/21 04/24/21 04/24/21 10:00 10:00 10:14 RBC Hgb Hct MCV RDW 16.0 H Lymph % (Auto) [facility] % (Auto) Lymph # (Auto) Seg Neutrophils % Seg Neuts % (Manual) Lymphocytes % (Manual) Monocytes % (Manual) Nucleated RBC % Lymphocytes # (Manual) D-Dimer Heparin Anti-Xa Level 0.84 H ABG pH POC ABG pCO2 POC ABG pO2 ABG pO2 ABG Hemoglobin ABG Oxyhemoglobin ABG Sodium ABG Potassium ABG Chloride ABG Glucose Carboxyhemoglobin Sodium Potassium Chloride 109.9 H Carbon Dioxide BUN Creatinine Glucose 118 H POC Glucose Lactic Acid Calcium Phosphorus 2.00 L Magnesium 2.40 H AST 59 H ALT Total Creatine Kinase 396 H CK-MB (CK-2) Troponin T Total Protein 5.5 L Albumin 2.4 L Triglycerides Cholesterol LDL Cholesterol Direct HDL Cholesterol TSH Arterial Blood Glucose Arterial Blood Ionized Calcium Urine WBC (Auto) Urine Creatinine Urine Total Protein 04/24/21 04/24/21 04/24/21 11:14 12:00 15:23 RBC Hgb Hct MCV RDW Lymph % (Auto) [facility] % (Auto) Lymph # (Auto) Seg Neutrophils % Seg Neuts % (Manual) Lymphocytes % (Manual) Monocytes % (Manual) Nucleated RBC % Lymphocytes # (Manual) D-Dimer Heparin Anti-Xa Level ABG pH 7.287 L POC ABG pCO2 54.3 H POC ABG pO2 58.2 L 67.5 L ABG pO2 ABG Hemoglobin ABG Oxyhemoglobin 88.3 L 89.9 L ABG Sodium ABG Potassium ABG Chloride 111.0 H 110.0 H ABG Glucose 117 H 126 H Carboxyhemoglobin 0.3 L Sodium Potassium Chloride Carbon Dioxide BUN Creatinine Glucose POC Glucose 112 H Lactic Acid Calcium Phosphorus Magnesium AST ALT Total Creatine Kinase CK-MB (CK-2) Troponin T Total Protein Albumin Triglycerides Cholesterol LDL Cholesterol Direct HDL Cholesterol TSH Arterial Blood Glucose 117 H 126 H Arterial Blood Ionized Calcium Urine WBC (Auto) Urine Creatinine Urine Total Protein 04/24/21 04/24/21 04/24/21 17:58 18:00 22:56 RBC Hgb Hct MCV RDW Lymph % (Auto) [facility] % (Auto) Lymph # (Auto) Seg Neutrophils % Seg Neuts % (Manual) Lymphocytes % (Manual) Monocytes % (Manual) Nucleated RBC % Lymphocytes # (Manual) D-Dimer Heparin Anti-Xa Level ABG pH POC ABG pCO2 POC ABG pO2 53.3 L ABG pO2 ABG Hemoglobin ABG Oxyhemoglobin 86.2 L ABG Sodium ABG Potassium ABG Chloride 111.0 H ABG Glucose 115 H Carboxyhemoglobin 0.4 L Sodium Potassium Chloride Carbon Dioxide BUN Creatinine Glucose POC Glucose 106 H 131 H Lactic Acid Calcium Phosphorus Magnesium AST ALT Total Creatine Kinase CK-MB (CK-2) Troponin T Total Protein Albumin Triglycerides Cholesterol LDL Cholesterol Direct HDL Cholesterol TSH Arterial Blood Glucose 115 H Arterial Blood Ionized Calcium Urine WBC (Auto) Urine Creatinine Urine Total Protein 04/25/21 04/25/21 04/25/21 04:00 07:42 10:50 RBC Hgb Hct MCV RDW Lymph % (Auto) [facility] % (Auto) Lymph # (Auto) Seg Neutrophils % Seg Neuts % (Manual) Lymphocytes % (Manual) Monocytes % (Manual) Nucleated RBC % Lymphocytes # (Manual) D-Dimer Heparin Anti-Xa Level ABG pH POC ABG pCO2 POC ABG pO2 48.5 L 56.5 L ABG pO2 ABG Hemoglobin 10.6 L 10.4 L ABG Oxyhemoglobin 79.4 L 86.8 L ABG Sodium ABG Potassium ABG Chloride 111.0 H 112.0 H ABG Glucose 115 H 124 H Carboxyhemoglobin 0.2 L Sodium 146 H Potassium Chloride 111.3 H Carbon Dioxide BUN Creatinine Glucose 128 H POC Glucose Lactic Acid Calcium Phosphorus Magnesium AST ALT Total Creatine Kinase CK-MB (CK-2) Troponin T Total Protein Albumin Triglycerides Cholesterol LDL Cholesterol Direct HDL Cholesterol TSH Arterial Blood Glucose 115 H 124 H Arterial Blood Ionized Calcium Urine WBC (Auto) Urine Creatinine Urine Total Protein 04/25/21 04/25/21 04/25/21 11:12 13:55 16:05 RBC Hgb Hct MCV RDW Lymph % (Auto) [facility] % (Auto) Lymph # (Auto) Seg Neutrophils % Seg Neuts % (Manual) Lymphocytes % (Manual) Monocytes % (Manual) Nucleated RBC % Lymphocytes # (Manual) D-Dimer Heparin Anti-Xa Level ABG pH POC ABG pCO2 POC ABG pO2 46.7 L 53.7 L ABG pO2 ABG Hemoglobin 10.7 L 11.1 L ABG Oxyhemoglobin 81.3 L 85.6 L ABG Sodium ABG Potassium ABG Chloride 111.0 H 111.0 H ABG Glucose 158 H 185 H Carboxyhemoglobin 0.4 L Sodium Potassium Chloride Carbon Dioxide BUN Creatinine Glucose POC Glucose 136 H Lactic Acid Calcium Phosphorus Magnesium AST ALT Total Creatine Kinase CK-MB (CK-2) Troponin T Total Protein Albumin Triglycerides Cholesterol LDL Cholesterol Direct HDL Cholesterol TSH Arterial Blood Glucose 158 H 185 H Arterial Blood Ionized Calcium Urine WBC (Auto) Urine Creatinine Urine Total Protein 04/25/21 04/25/21 04/26/21 17:39 23:18 05:06 RBC Hgb Hct MCV RDW Lymph % (Auto) [facility] % (Auto) Lymph # (Auto) Seg Neutrophils % Seg Neuts % (Manual) Lymphocytes % (Manual) Monocytes % (Manual) Nucleated RBC % Lymphocytes # (Manual) D-Dimer Heparin Anti-Xa Level ABG pH POC ABG pCO2 POC ABG pO2 ABG pO2 ABG Hemoglobin ABG Oxyhemoglobin ABG Sodium ABG Potassium ABG Chloride ABG Glucose Carboxyhemoglobin Sodium Potassium Chloride Carbon Dioxide BUN Creatinine Glucose POC Glucose 155 H 158 H 134 H Lactic Acid Calcium Phosphorus Magnesium AST ALT Total Creatine Kinase CK-MB (CK-2) Troponin T Total Protein Albumin Triglycerides Cholesterol LDL Cholesterol Direct HDL Cholesterol TSH Arterial Blood Glucose Arterial Blood Ionized Calcium Urine WBC (Auto) Urine Creatinine Urine Total Protein 04/26/21 04/26/21 04/26/21 05:22 12:20 13:16 RBC Hgb Hct MCV RDW Lymph % (Auto) [facility] % (Auto) Lymph # (Auto) Seg Neutrophils % Seg Neuts % (Manual) Lymphocytes % (Manual) Monocytes % (Manual) Nucleated RBC % Lymphocytes # (Manual) D-Dimer Heparin Anti-Xa Level ABG pH POC ABG pCO2 POC ABG pO2 52.2 L 53.9 L ABG pO2 ABG Hemoglobin 10.9 L 11.5 L ABG Oxyhemoglobin 86.5 L 86.4 L ABG Sodium 145.8 H ABG Potassium 4.6 H ABG Chloride 114.0 H 112.0 H ABG Glucose 144 H 162 H Carboxyhemoglobin 0.4 L 0.4 L Sodium Potassium Chloride Carbon Dioxide BUN Creatinine Glucose POC Glucose 160 H Lactic Acid Calcium Phosphorus Magnesium AST ALT Total Creatine Kinase CK-MB (CK-2) Troponin T Total Protein Albumin Triglycerides Cholesterol LDL Cholesterol Direct HDL Cholesterol TSH Arterial Blood Glucose 144 H 162 H Arterial Blood Ionized Calcium Urine WBC (Auto) Urine Creatinine Urine Total Protein 04/26/21 04/26/21 04/26/21 14:09 18:42 23:30 RBC Hgb Hct MCV RDW Lymph % (Auto) [facility] % (Auto) Lymph # (Auto) Seg Neutrophils % Seg Neuts % (Manual) Lymphocytes % (Manual) Monocytes % (Manual) Nucleated RBC % Lymphocytes # (Manual) D-Dimer Heparin Anti-Xa Level ABG pH POC ABG pCO2 POC ABG pO2 55.3 L ABG pO2 ABG Hemoglobin 11.6 L ABG Oxyhemoglobin 87.2 L ABG Sodium 146.6 H ABG Potassium ABG Chloride 111.0 H ABG Glucose 165 H Carboxyhemoglobin Sodium Potassium Chloride Carbon Dioxide BUN Creatinine Glucose POC Glucose 161 H 163 H Lactic Acid Calcium Phosphorus Magnesium AST ALT Total Creatine Kinase CK-MB (CK-2) Troponin T Total Protein Albumin Triglycerides Cholesterol LDL Cholesterol Direct HDL Cholesterol TSH Arterial Blood Glucose 165 H Arterial Blood Ionized Calcium Urine WBC (Auto) Urine Creatinine Urine Total Protein 04/27/21 04/27/21 04/27/21 03:51 05:14 06:25 RBC 3.64 L Hgb Hct MCV RDW 16.2 H Lymph % (Auto) [facility] % (Auto) Lymph # (Auto) Seg Neutrophils % Seg Neuts % (Manual) Lymphocytes % (Manual) Monocytes % (Manual) Nucleated RBC % Lymphocytes # (Manual) D-Dimer Heparin Anti-Xa Level ABG pH POC ABG pCO2 52.9 H POC ABG pO2 60.8 L ABG pO2 ABG Hemoglobin 11.9 L ABG Oxyhemoglobin 87.9 L ABG Sodium 147.8 H ABG Potassium ABG Chloride 111.0 H ABG Glucose 183 H Carboxyhemoglobin Sodium Potassium Chloride Carbon Dioxide BUN Creatinine Glucose POC Glucose 165 H Lactic Acid Calcium Phosphorus Magnesium AST ALT Total Creatine Kinase CK-MB (CK-2) Troponin T Total Protein Albumin Triglycerides Cholesterol LDL Cholesterol Direct HDL Cholesterol TSH Arterial Blood Glucose 183 H Arterial Blood Ionized Calcium Urine WBC (Auto) Urine Creatinine Urine Total Protein 04/27/21 04/27/21 04/27/21 06:25 11:45 17:41 RBC Hgb Hct MCV RDW Lymph % (Auto) [facility] % (Auto) Lymph # (Auto) Seg Neutrophils % Seg Neuts % (Manual) Lymphocytes % (Manual) Monocytes % (Manual) Nucleated RBC % Lymphocytes # (Manual) D-Dimer Heparin Anti-Xa Level ABG pH POC ABG pCO2 POC ABG pO2 ABG pO2 ABG Hemoglobin ABG Oxyhemoglobin ABG Sodium ABG Potassium ABG Chloride ABG Glucose Carboxyhemoglobin Sodium 148 H Potassium 5.1 H D Chloride 109.0 H Carbon Dioxide BUN 35 H Creatinine Glucose 170 H POC Glucose 184 H 172 H Lactic Acid Calcium Phosphorus Magnesium AST 48 H ALT Total Creatine Kinase CK-MB (CK-2) Troponin T Total Protein Albumin 2.4 L Triglycerides Cholesterol LDL Cholesterol Direct HDL Cholesterol TSH Arterial Blood Glucose Arterial Blood Ionized Calcium Urine WBC (Auto) Urine Creatinine Urine Total Protein 04/27/21 04/28/21 04/28/21 23:16 03:23 04:00 RBC Hgb Hct MCV RDW Lymph % (Auto) [facility] % (Auto) Lymph # (Auto) Seg Neutrophils % Seg Neuts % (Manual) Lymphocytes % (Manual) Monocytes % (Manual) Nucleated RBC % Lymphocytes # (Manual) D-Dimer Heparin Anti-Xa Level ABG pH POC ABG pCO2 55.9 H POC ABG pO2 76.2 L ABG pO2 ABG Hemoglobin 11.5 L ABG Oxyhemoglobin 92.9 L ABG Sodium 153.3 H ABG Potassium 3.2 L ABG Chloride 115.0 H ABG Glucose 154 H Carboxyhemoglobin Sodium 154 H Potassium 3.5 L D Chloride 114.4 H Carbon Dioxide 31 H BUN 32 H Creatinine Glucose 148 H POC Glucose 142 H Lactic Acid Calcium Phosphorus Magnesium AST ALT Total Creatine Kinase CK-MB (CK-2) Troponin T Total Protein 6.0 L Albumin 2.4 L Triglycerides Cholesterol LDL Cholesterol Direct HDL Cholesterol TSH Arterial Blood Glucose 154 H Arterial Blood Ionized Calcium Urine WBC (Auto) Urine Creatinine Urine Total Protein 04/28/21 04/28/21 04/28/21 04:45 06:05 11:57 RBC Hgb Hct MCV RDW 16.1 H Lymph % (Auto) [facility] % (Auto) Lymph # (Auto) Seg Neutrophils % Seg Neuts % (Manual) Lymphocytes % (Manual) Monocytes % (Manual) Nucleated RBC % Lymphocytes # (Manual) D-Dimer Heparin Anti-Xa Level ABG pH POC ABG pCO2 POC ABG pO2 ABG pO2 ABG Hemoglobin ABG Oxyhemoglobin ABG Sodium ABG Potassium ABG Chloride ABG Glucose Carboxyhemoglobin Sodium Potassium Chloride Carbon Dioxide BUN Creatinine Glucose POC Glucose 153 H 109 H Lactic Acid Calcium Phosphorus Magnesium AST ALT Total Creatine Kinase CK-MB (CK-2) Troponin T Total Protein Albumin Triglycerides Cholesterol LDL Cholesterol Direct HDL Cholesterol TSH Arterial Blood Glucose Arterial Blood Ionized Calcium Urine WBC (Auto) Urine Creatinine Urine Total Protein 04/28/21 04/28/21 04/29/21 17:39 23:58 03:51 RBC Hgb Hct MCV RDW Lymph % (Auto) [facility] % (Auto) Lymph # (Auto) Seg Neutrophils % Seg Neuts % (Manual) Lymphocytes % (Manual) Monocytes % (Manual) Nucleated RBC % Lymphocytes # (Manual) D-Dimer Heparin Anti-Xa Level ABG pH POC ABG pCO2 54.7 H POC ABG pO2 68.6 L ABG pO2 ABG Hemoglobin 11.9 L ABG Oxyhemoglobin 91.7 L ABG Sodium 148.2 H ABG Potassium ABG Chloride 112.0 H ABG Glucose 136 H Carboxyhemoglobin Sodium Potassium Chloride Carbon Dioxide BUN Creatinine Glucose POC Glucose 145 H 164 H Lactic Acid Calcium Phosphorus Magnesium AST ALT Total Creatine Kinase CK-MB (CK-2) Troponin T Total Protein Albumin Triglycerides Cholesterol LDL Cholesterol Direct HDL Cholesterol TSH Arterial Blood Glucose 136 H Arterial Blood Ionized Calcium Urine WBC (Auto) Urine Creatinine Urine Total Protein 04/29/21 04/29/21 04/29/21 05:35 05:55 11:29 RBC Hgb Hct MCV RDW Lymph % (Auto) [facility] % (Auto) Lymph # (Auto) Seg Neutrophils % Seg Neuts % (Manual) Lymphocytes % (Manual) Monocytes % (Manual) Nucleated RBC % Lymphocytes # (Manual) D-Dimer Heparin Anti-Xa Level ABG pH POC ABG pCO2 POC ABG pO2 ABG pO2 ABG Hemoglobin ABG Oxyhemoglobin ABG Sodium ABG Potassium ABG Chloride ABG Glucose Carboxyhemoglobin Sodium 149 H Potassium Chloride 110.9 H Carbon Dioxide BUN 34 H Creatinine Glucose 136 H POC Glucose 128 H 206 H Lactic Acid Calcium Phosphorus Magnesium AST ALT Total Creatine Kinase CK-MB (CK-2) Troponin T Total Protein Albumin Triglycerides Cholesterol LDL Cholesterol Direct HDL Cholesterol TSH Arterial Blood Glucose Arterial Blood Ionized Calcium Urine WBC (Auto) Urine Creatinine Urine Total Protein 04/29/21 04/29/21 04/30/21 18:04 23:42 00:55 RBC Hgb Hct MCV RDW Lymph % (Auto) [facility] % (Auto) Lymph # (Auto) Seg Neutrophils % Seg Neuts % (Manual) Lymphocytes % (Manual) Monocytes % (Manual) Nucleated RBC % Lymphocytes # (Manual) D-Dimer Heparin Anti-Xa Level ABG pH POC ABG pCO2 POC ABG pO2 ABG pO2 ABG Hemoglobin ABG Oxyhemoglobin ABG Sodium ABG Potassium ABG Chloride ABG Glucose Carboxyhemoglobin Sodium Potassium 5.1 H D Chloride Carbon Dioxide BUN Creatinine Glucose POC Glucose 146 H 146 H Lactic Acid Calcium Phosphorus Magnesium AST ALT Total Creatine Kinase CK-MB (CK-2) Troponin T Total Protein Albumin Triglycerides Cholesterol LDL Cholesterol Direct HDL Cholesterol TSH Arterial Blood Glucose Arterial Blood Ionized Calcium Urine WBC (Auto) Urine Creatinine Urine Total Protein 04/30/21 04/30/21 04/30/21 05:00 05:34 07:40 RBC Hgb Hct MCV RDW Lymph % (Auto) [facility] % (Auto) Lymph # (Auto) Seg Neutrophils % Seg Neuts % (Manual) Lymphocytes % (Manual) Monocytes % (Manual) Nucleated RBC % Lymphocytes # (Manual) D-Dimer Heparin Anti-Xa Level ABG pH POC ABG pCO2 55.6 H POC ABG pO2 62.4 L ABG pO2 ABG Hemoglobin ABG Oxyhemoglobin 90.1 L ABG Sodium 146.8 H ABG Potassium ABG Chloride 109.0 H ABG Glucose 124 H Carboxyhemoglobin Sodium 149 H Potassium Chloride 109.5 H Carbon Dioxide 35 H BUN 33 H Creatinine Glucose 126 H POC Glucose 122 H Lactic Acid Calcium Phosphorus Magnesium 2.60 H AST ALT Total Creatine Kinase CK-MB (CK-2) Troponin T Total Protein 5.8 L Albumin 2.2 L Triglycerides 332 H Cholesterol LDL Cholesterol Direct HDL Cholesterol TSH Arterial Blood Glucose 124 H Arterial Blood Ionized Calcium Urine WBC (Auto) Urine Creatinine Urine Total Protein 04/30/21 04/30/21 04/30/21 07:40 11:12 17:00 RBC Hgb Hct MCV RDW 16.3 H Lymph % (Auto) [facility] % (Auto) Lymph # (Auto) Seg Neutrophils % 88.4 H Seg Neuts % (Manual) 82.0 H Lymphocytes % (Manual) 5.0 L Monocytes % (Manual) Nucleated RBC % Lymphocytes # (Manual) 0.4 L D-Dimer Heparin Anti-Xa Level ABG pH POC ABG pCO2 POC ABG pO2 ABG pO2 ABG Hemoglobin ABG Oxyhemoglobin ABG Sodium ABG Potassium ABG Chloride ABG Glucose Carboxyhemoglobin Sodium Potassium Chloride Carbon Dioxide BUN Creatinine Glucose POC Glucose 127 H Lactic Acid Calcium Phosphorus Magnesium AST ALT Total Creatine Kinase CK-MB (CK-2) Troponin T Total Protein Albumin Triglycerides 304 H Cholesterol LDL Cholesterol Direct HDL Cholesterol TSH Arterial Blood Glucose Arterial Blood Ionized Calcium Urine WBC (Auto) Urine Creatinine Urine Total Protein 04/30/21 04/30/21 05/01/21 18:17 23:25 03:33 RBC Hgb Hct MCV RDW Lymph % (Auto) [facility] % (Auto) Lymph # (Auto) Seg Neutrophils % Seg Neuts % (Manual) Lymphocytes % (Manual) Monocytes % (Manual) Nucleated RBC % Lymphocytes # (Manual) D-Dimer Heparin Anti-Xa Level ABG pH 7.275 L POC ABG pCO2 85.0 H POC ABG pO2 ABG pO2 ABG Hemoglobin ABG Oxyhemoglobin ABG Sodium ABG Potassium 5.0 H ABG Chloride ABG Glucose 150 H Carboxyhemoglobin Sodium Potassium Chloride Carbon Dioxide BUN Creatinine Glucose POC Glucose 151 H 143 H Lactic Acid Calcium Phosphorus Magnesium AST ALT Total Creatine Kinase CK-MB (CK-2) Troponin T Total Protein Albumin Triglycerides Cholesterol LDL Cholesterol Direct HDL Cholesterol TSH Arterial Blood Glucose 150 H Arterial Blood Ionized Calcium Urine WBC (Auto) Urine Creatinine Urine Total Protein 05/01/21 05/01/21 05/01/21 04:55 05:08 05:08 RBC Hgb Hct MCV RDW 16.7 H Lymph % (Auto) [facility] % (Auto) Lymph # (Auto) Seg Neutrophils % Seg Neuts % (Manual) Lymphocytes % (Manual) Monocytes % (Manual) Nucleated RBC % Lymphocytes # (Manual) D-Dimer Heparin Anti-Xa Level ABG pH POC ABG pCO2 POC ABG pO2 ABG pO2 ABG Hemoglobin ABG Oxyhemoglobin ABG Sodium ABG Potassium ABG Chloride ABG Glucose Carboxyhemoglobin Sodium Potassium 5.3 H D Chloride Carbon Dioxide 36 H BUN 39 H Creatinine Glucose 150 H POC Glucose 138 H Lactic Acid Calcium Phosphorus Magnesium AST ALT Total Creatine Kinase CK-MB (CK-2) Troponin T Total Protein Albumin Triglycerides Cholesterol LDL Cholesterol Direct HDL Cholesterol TSH Arterial Blood Glucose Arterial Blood Ionized Calcium Urine WBC (Auto) Urine Creatinine Urine Total Protein 05/01/21 05/01/21 05/01/21 11:46 14:30 17:08 RBC Hgb Hct MCV RDW Lymph % (Auto) [facility] % (Auto) Lymph # (Auto) Seg Neutrophils % Seg Neuts % (Manual) Lymphocytes % (Manual) Monocytes % (Manual) Nucleated RBC % Lymphocytes # (Manual) D-Dimer Heparin Anti-Xa Level ABG pH POC ABG pCO2 POC ABG pO2 ABG pO2 ABG Hemoglobin ABG Oxyhemoglobin ABG Sodium ABG Potassium ABG Chloride ABG Glucose Carboxyhemoglobin Sodium Potassium Chloride Carbon Dioxide BUN Creatinine Glucose POC Glucose 159 H 206 H Lactic Acid Calcium Phosphorus Magnesium 2.60 H AST ALT Total Creatine Kinase CK-MB (CK-2) Troponin T Total Protein Albumin Triglycerides Cholesterol LDL Cholesterol Direct HDL Cholesterol TSH Arterial Blood Glucose Arterial Blood Ionized Calcium Urine WBC (Auto) Urine Creatinine Urine Total Protein 05/01/21 05/02/21 05/02/21 23:21 04:00 05:32 RBC Hgb Hct MCV RDW Lymph % (Auto) [facility] % (Auto) Lymph # (Auto) Seg Neutrophils % Seg Neuts % (Manual) Lymphocytes % (Manual) Monocytes % (Manual) Nucleated RBC % Lymphocytes # (Manual) D-Dimer Heparin Anti-Xa Level ABG pH 7.213 L POC ABG pCO2 123.0 H POC ABG pO2 69.9 L ABG pO2 ABG Hemoglobin ABG Oxyhemoglobin 90.0 L ABG Sodium 148.1 H ABG Potassium 5.2 H ABG Chloride ABG Glucose 205 H Carboxyhemoglobin 1.9 H Sodium Potassium Chloride Carbon Dioxide BUN Creatinine Glucose POC Glucose 176 H 184 H Lactic Acid Calcium Phosphorus Magnesium AST ALT Total Creatine Kinase CK-MB (CK-2) Troponin T Total Protein Albumin Triglycerides Cholesterol LDL Cholesterol Direct HDL Cholesterol TSH Arterial Blood Glucose 205 H Arterial Blood Ionized Calcium Urine WBC (Auto) Urine Creatinine Urine Total Protein 05/02/21 05/02/21 05/02/21 06:57 06:57 08:00 RBC Hgb Hct MCV RDW 17.5 H Lymph % (Auto) [facility] % (Auto) Lymph # (Auto) Seg Neutrophils % Seg Neuts % (Manual) 84.0 H Lymphocytes % (Manual) 6.0 L Monocytes % (Manual) Nucleated RBC % 1.0 H Lymphocytes # (Manual) 0.6 L D-Dimer Heparin Anti-Xa Level ABG pH 7.267 L POC ABG pCO2 102.9 H POC ABG pO2 81.4 L ABG pO2 ABG Hemoglobin ABG Oxyhemoglobin 93.6 L ABG Sodium 148.0 H ABG Potassium 5.4 H ABG Chloride ABG Glucose 249 H Carboxyhemoglobin Sodium 148 H Potassium 5.6 H Chloride Carbon Dioxide 40 H BUN 36 H Creatinine Glucose 227 H POC Glucose Lactic Acid Calcium Phosphorus 2.20 L Magnesium 2.80 H AST 41 H ALT Total Creatine Kinase CK-MB (CK-2) Troponin T Total Protein Albumin 2.7 L Triglycerides Cholesterol LDL Cholesterol Direct HDL Cholesterol TSH Arterial Blood Glucose 249 H Arterial Blood Ionized Calcium Urine WBC (Auto) Urine Creatinine Urine Total Protein 05/02/21 05/02/21 05/02/21 10:52 11:58 15:15 RBC Hgb Hct MCV RDW Lymph % (Auto) [facility] % (Auto) Lymph # (Auto) Seg Neutrophils % Seg Neuts % (Manual) Lymphocytes % (Manual) Monocytes % (Manual) Nucleated RBC % Lymphocytes # (Manual) D-Dimer Heparin Anti-Xa Level ABG pH 7.260 L POC ABG pCO2 99.9 H POC ABG pO2 74.9 L ABG pO2 ABG Hemoglobin ABG Oxyhemoglobin 92.1 L ABG Sodium 146.4 H ABG Potassium 5.7 H ABG Chloride ABG Glucose 266 H Carboxyhemoglobin Sodium 152 H Potassium 5.4 H Chloride Carbon Dioxide 41 H* BUN 47 H Creatinine Glucose 269 H POC Glucose 268 H Lactic Acid Calcium Phosphorus Magnesium 2.80 H AST ALT Total Creatine Kinase CK-MB (CK-2) Troponin T Total Protein Albumin Triglycerides Cholesterol LDL Cholesterol Direct HDL Cholesterol TSH Arterial Blood Glucose 266 H Arterial Blood Ionized Calcium Urine WBC (Auto) Urine Creatinine Urine Total Protein 05/02/21 05/03/21 05/03/21 18:05 00:06 03:45 RBC Hgb Hct MCV 98 H RDW 17.1 H Lymph % (Auto) [facility] % (Auto) Lymph # (Auto) Seg Neutrophils % Seg Neuts % (Manual) Lymphocytes % (Manual) 9.0 L Monocytes % (Manual) Nucleated RBC % 6.0 H Lymphocytes # (Manual) 0.8 L D-Dimer Heparin Anti-Xa Level ABG pH POC ABG pCO2 POC ABG pO2 ABG pO2 ABG Hemoglobin ABG Oxyhemoglobin ABG Sodium ABG Potassium ABG Chloride ABG Glucose Carboxyhemoglobin Sodium Potassium Chloride Carbon Dioxide BUN Creatinine Glucose POC Glucose 225 H 230 H Lactic Acid Calcium Phosphorus Magnesium AST ALT Total Creatine Kinase CK-MB (CK-2) Troponin T Total Protein Albumin Triglycerides Cholesterol LDL Cholesterol Direct HDL Cholesterol TSH Arterial Blood Glucose Arterial Blood Ionized Calcium Urine WBC (Auto) Urine Creatinine Urine Total Protein 05/03/21 05/03/21 05/03/21 03:45 04:00 05:29 RBC Hgb Hct MCV RDW Lymph % (Auto) [facility] % (Auto) Lymph # (Auto) Seg Neutrophils % Seg Neuts % (Manual) Lymphocytes % (Manual) Monocytes % (Manual) Nucleated RBC % Lymphocytes # (Manual) D-Dimer Heparin Anti-Xa Level ABG pH 7.237 L POC ABG pCO2 99.9 H POC ABG pO2 74.8 L ABG pO2 ABG Hemoglobin 11.9 L ABG Oxyhemoglobin 91.9 L ABG Sodium 147.0 H ABG Potassium 5.2 H ABG Chloride ABG Glucose 196 H Carboxyhemoglobin Sodium 151 H Potassium 5.7 H Chloride Carbon Dioxide 40 H BUN 68 H Creatinine 1.8 H D Glucose 200 H POC Glucose 200 H Lactic Acid Calcium Phosphorus Magnesium 3.10 H AST 42 H ALT Total Creatine Kinase CK-MB (CK-2) Troponin T Total Protein Albumin 2.4 L Triglycerides Cholesterol LDL Cholesterol Direct HDL Cholesterol TSH Arterial Blood Glucose 196 H Arterial Blood Ionized Calcium Urine WBC (Auto) Urine Creatinine Urine Total Protein 05/03/21 05/03/21 05/03/21 06:05 10:21 11:36 RBC Hgb Hct MCV RDW Lymph % (Auto) [facility] % (Auto) Lymph # (Auto) Seg Neutrophils % Seg Neuts % (Manual) Lymphocytes % (Manual) Monocytes % (Manual) Nucleated RBC % Lymphocytes # (Manual) D-Dimer Heparin Anti-Xa Level ABG pH POC ABG pCO2 POC ABG pO2 ABG pO2 ABG Hemoglobin ABG Oxyhemoglobin ABG Sodium ABG Potassium ABG Chloride ABG Glucose Carboxyhemoglobin Sodium Potassium Chloride Carbon Dioxide BUN Creatinine Glucose POC Glucose 197 H Lactic Acid 2.20 H* Calcium Phosphorus Magnesium AST ALT Total Creatine Kinase CK-MB (CK-2) Troponin T Total Protein Albumin Triglycerides Cholesterol LDL Cholesterol Direct HDL Cholesterol TSH 0.051 L Arterial Blood Glucose Arterial Blood Ionized Calcium Urine WBC (Auto) Urine Creatinine Urine Total Protein 0705/03/21 05/03/21 15:00 15:27 16:10 RBC Hgb Hct MCV RDW Lymph % (Auto) [facility] % (Auto) Lymph # (Auto) Seg Neutrophils % Seg Neuts % (Manual) Lymphocytes % (Manual) Monocytes % (Manual) Nucleated RBC % Lymphocytes # (Manual) D-Dimer Heparin Anti-Xa Level ABG pH 7.184 L POC ABG pCO2 120.0 H POC ABG pO2 46.4 L ABG pO2 ABG Hemoglobin 10.4 L ABG Oxyhemoglobin 75.7 L ABG Sodium 148.9 H ABG Potassium ABG Chloride ABG Glucose 157 H Carboxyhemoglobin Sodium 151 H Potassium Chloride Carbon Dioxide 36 H BUN 73 H Creatinine 1.9 H Glucose 155 H POC Glucose Lactic Acid Calcium 10.3 H Phosphorus Magnesium 3.00 H AST ALT Total Creatine Kinase CK-MB (CK-2) Troponin T Total Protein Albumin Triglycerides Cholesterol LDL Cholesterol Direct HDL Cholesterol TSH Arterial Blood Glucose 157 H Arterial Blood Ionized Calcium Urine WBC (Auto) 43.0 H Urine Creatinine Urine Total Protein 05/03/21 05/03/21 05/03/21 16:10 18:03 20:00 RBC Hgb Hct MCV RDW Lymph % (Auto) [facility] % (Auto) Lymph # (Auto) Seg Neutrophils % Seg Neuts % (Manual) Lymphocytes % (Manual) Monocytes % (Manual) Nucleated RBC % Lymphocytes # (Manual) D-Dimer Heparin Anti-Xa Level ABG pH POC ABG pCO2 82.8 H POC ABG pO2 46.6 L ABG pO2 ABG Hemoglobin 10.4 L ABG Oxyhemoglobin 81.7 L ABG Sodium 154.9 H ABG Potassium 5.5 H ABG Chloride ABG Glucose 152 H Carboxyhemoglobin Sodium Potassium Chloride Carbon Dioxide BUN Creatinine Glucose POC Glucose 108 H Lactic Acid Calcium Phosphorus Magnesium AST ALT Total Creatine Kinase CK-MB (CK-2) Troponin T Total Protein Albumin Triglycerides Cholesterol LDL Cholesterol Direct HDL Cholesterol TSH Arterial Blood Glucose 152 H Arterial Blood Ionized Calcium Urine WBC (Auto) Urine Creatinine 65.6 H Urine Total Protein 05/03/21 05/03/21 05/04/21 22:13 23:17 03:39 RBC Hgb Hct MCV RDW Lymph % (Auto) [facility] % (Auto) Lymph # (Auto) Seg Neutrophils % Seg Neuts % (Manual) Lymphocytes % (Manual) Monocytes % (Manual) Nucleated RBC % Lymphocytes # (Manual) D-Dimer Heparin Anti-Xa Level ABG pH POC ABG pCO2 94.7 H 88.0 H POC ABG pO2 51.1 L 52.6 L ABG pO2 ABG Hemoglobin 10.6 L 10.3 L ABG Oxyhemoglobin 83.7 L 84.7 L ABG Sodium 156.1 H 157.7 H ABG Potassium 5.6 H 5.2 H ABG Chloride ABG Glucose 181 H 221 H Carboxyhemoglobin Sodium Potassium Chloride Carbon Dioxide BUN Creatinine Glucose POC Glucose 165 H Lactic Acid Calcium Phosphorus Magnesium AST ALT Total Creatine Kinase CK-MB (CK-2) Troponin T Total Protein Albumin Triglycerides Cholesterol LDL Cholesterol Direct HDL Cholesterol TSH Arterial Blood Glucose 181 H 221 H Arterial Blood Ionized Calcium Urine WBC (Auto) Urine Creatinine Urine Total Protein 05/04/21 05/04/21 05/04/21 05:27 07:11 07:11 RBC 3.12 L Hgb 9.5 L Hct 29.8 L D MCV RDW 16.6 H Lymph % (Auto) [facility] % (Auto) Lymph # (Auto) Seg Neutrophils % Seg Neuts % (Manual) Lymphocytes % (Manual) Monocytes % (Manual) Nucleated RBC % Lymphocytes # (Manual) D-Dimer Heparin Anti-Xa Level ABG pH POC ABG pCO2 POC ABG pO2 ABG pO2 ABG Hemoglobin ABG Oxyhemoglobin ABG Sodium ABG Potassium ABG Chloride ABG Glucose Carboxyhemoglobin Sodium 160 H D Potassium 5.4 H Chloride 109.9 H Carbon Dioxide 45 H* D BUN 75 H Creatinine 1.5 H Glucose 223 H POC Glucose 193 H Lactic Acid Calcium Phosphorus Magnesium 3.10 H AST 44 H ALT Total Creatine Kinase CK-MB (CK-2) Troponin T Total Protein 5.7 L Albumin 2.2 L Triglycerides Cholesterol LDL Cholesterol Direct HDL Cholesterol TSH Arterial Blood Glucose Arterial Blood Ionized Calcium Urine WBC (Auto) Urine Creatinine Urine Total Protein 05/04/21 05/04/21 05/04/21 07:11 11:32 13:27 RBC Hgb Hct MCV RDW Lymph % (Auto) [facility] % (Auto) Lymph # (Auto) Seg Neutrophils % Seg Neuts % (Manual) Lymphocytes % (Manual) Monocytes % (Manual) Nucleated RBC % Lymphocytes # (Manual) D-Dimer Heparin Anti-Xa Level ABG pH POC ABG pCO2 POC ABG pO2 ABG pO2 ABG Hemoglobin ABG Oxyhemoglobin ABG Sodium ABG Potassium ABG Chloride ABG Glucose Carboxyhemoglobin Sodium Potassium Chloride Carbon Dioxide BUN Creatinine Glucose POC Glucose 276 H Lactic Acid 3.00 H* 3.00 H* Calcium Phosphorus Magnesium AST ALT Total Creatine Kinase CK-MB (CK-2) Troponin T Total Protein Albumin Triglycerides Cholesterol LDL Cholesterol Direct HDL Cholesterol TSH Arterial Blood Glucose Arterial Blood Ionized Calcium Urine WBC (Auto) Urine Creatinine Urine Total Protein 05/04/21 05/04/21 13:27 13:53 RBC Hgb Hct MCV RDW Lymph % (Auto) [facility] % (Auto) Lymph # (Auto) Seg Neutrophils % Seg Neuts % (Manual) Lymphocytes % (Manual) Monocytes % (Manual) Nucleated RBC % Lymphocytes # (Manual) D-Dimer Heparin Anti-Xa Level ABG pH 7.275 L POC ABG pCO2 117.3 H POC ABG pO2 69.8 L ABG pO2 ABG Hemoglobin 9.5 L ABG Oxyhemoglobin 89.6 L ABG Sodium 156.2 H ABG Potassium ABG Chloride ABG Glucose 263 H Carboxyhemoglobin Sodium Potassium Chloride Carbon Dioxide BUN Creatinine Glucose POC Glucose Lactic Acid Calcium Phosphorus Magnesium 3.00 H AST ALT Total Creatine Kinase CK-MB (CK-2) Troponin T Total Protein Albumin Triglycerides Cholesterol LDL Cholesterol Direct HDL Cholesterol TSH Arterial Blood Glucose 263 H Arterial Blood Ionized Calcium Urine WBC (Auto) Urine Creatinine Urine Total Protein Allied health notes reviewed: nursing
[2021-05-04] MEDS ORDERED: VANCOMYCIN/NS 1 GM/250 ML 1 GM/250 ML BAG IV SCH (16:00)
--- NOTE | 2021-05-04 18:34 | Progress Note ---
Assessment and Plan Assessment and plan: NEURO hx CVA with l sided weakness; new onset sz; metabolic encephalopathy new onset seizures - mon endy PERRL; no commands but remains sedated on prop and ativan CT head on admit- IMPRESSION: Encephalomalacia in the right temporal lobe, frontal lobe; no acute/subacute parenchymal lesions MRI Encephalomalacia in the right cerebral hemisphere - see report will need repeat CT per neuro when PEEP is dec; Dr Arrington has told RN's not to take to CT on level of vent support she is requiring sedated on propofol and ativan daily SAT limited by hypoxia RAAS goal neg 4 seroquel BID; following QT case management following family updated daily on plan of care CV: hx htn on norvasc at home per EMR; ST; hypotension likely volume depletion/sepsis or combination of the 2 asa/statin echo 04/22 see report -normal biV function PRN hydral s/P adenosine and amiodarone on 05/03 for some tachycardia Vasopressors for blood pressure support RESP acute resp failure with PE on CTA; refractory hypoxia requiring MV; permissive hypercapnia to Ph of 7.2 intubated in ER; remains ventilated [facility] [phone] permissive hypercapnia see iview for titration sat goal 88 pH goal 7.[address] noted - a/c lung disease evident with LPA PE's noted US BLE neg for DVT trending lactate/ABG and chest xrays continue nebs continue solumedrol will likely need trach- today vent day 11 Empiric antibiotics GI -illeus TF at goal -- held this afternoon pt vomited NG to LIS nutrition following PPI bowel reg - colace/senna/miralax concern for illeus-Dulcolax suppository KUB ordered for AM -LIZBETH worsening; hyperNa; hyperK; lactic acidosis purewik strict I/O- likely inaccurate given purwik trend and replace electrolytes as needed trend BUN/CR/CK Nephrology reconsulted K medically treated x 1 this AM P.m. labs ordered for 2100 AM labs ordered HEME- Pulmonary emboli VTE on lovenox BID trending coags/Xa trend CBC no bleeding on exam LE dopplers neg for DVT; pos CTA for PE on admit ID- lactic acidosis covid neg afebrile but lactic acid high and pt now on NE and vaso; also ST on monitor will reculture today to ro infectious source of these findings vanc/cefipime started given concern for infectious etiology of her symptoms; narrow as appropriate continue to trend temp and WBC curve continuing methylpred Empiric antibiotics ENDO stress hyperglycemia; obese blood glucose monitoring avoid hypoglycemia SSI PRN The high probability of a clinically significant, sudden or life threatening deterioration of the [respiratory] system(s) required my full and direct attention, intervention and personal management. The aggregate critical care time was [60] minutes. This time is in addition to time spent performing reported procedures but includes the following: [x] Data Review and interpretation [x] Patient assessment and monitoring of vital signs [x] Documentation [x] Medication orders and management Disposition Plan: ICU Total Time Spent with Patient (Minutes): 60 History Interval history: This is a 66-year-old female with HTN, HLD, prior CVA with resulting left-sided weakness present today with emergency department via EMS for AMS and new onset seizures with increased left-sided weakness. Upon arrival to the emergency room patient was intubated for airway protection and hypoxia. Patient was admitted to the hospital service with new onset seizures, acute hypoxic respiratory failure with pulmonary embolism on CTA, acute kidney injury, rhabdomyolysis. 04-30 NO ACUTE EVENTS OVERNIGHT; diuresis with 40 mg IV lasix 05-01 no acute events overnight; diuresis with 40 mg IV lasix 05-02: diuresis with lasix 40 mg IV during the day - pt still grossly pos per I/O; and pt weight, overnight pt persistently tachycardic given adenosine and amio gtt 05/04: Nephrology will try Lasix, CCM adjust advanced to APRV to help with ventilation. Will obtain BMP at 2100. CCM okay with SPO2 greater than 88, pH of greater than 7.2. Hypernatremia to 160, started on D5 W, severe hypercapnia noted on ABG and patient ventilator settings was changed. Lactic acidosis noted with hyperglycemia. Hyperkalemia noted which was medically treated. Hospitalist Physical - Constitutional Vitals: Temp Pulse Resp BP Pulse Ox 99.0 F 131 H 10 L 132/74 93 05/04/21 16:00 05/04/21 18:00 05/04/21 18:00 05/04/21 16:40 05/04/21 18:00 General appearance: Present: no acute distress, well-nourished, other (Sedated on vent) - EENT Eyes: Present: PERRL - Neck Neck: Absent: masses or JVD, cervical LAD - Respiratory Respiratory effort: normal Respiratory: bilateral: diminished - Cardiovascular Rhythm: regular Peripheral Pulses: within normal limits - Abdominal General gastrointestinal: absent bowel sounds - Integumentary Integumentary: Present: warm, dry - Psychiatric Psychiatric: other (Dated) - Allied Health Allied health notes reviewed: nursing HEART Score - HEART Score Age: 45-65 Risk factors: 1-2 risk factors Troponin: Troponin T 0.055 ng/mL (0.00-0.029) H 04/21/21 16:32 - Critical Actions Critical Actions: 0-3 pts:0.9-1.7%risk of adverse cardiac event.Candidate for discharge Results - Labs CBC & Chem 7: 05/04/21 07:11 05/04/21 07:11 Labs: Laboratory Last Values WBC 10.1 K/mm3 (4.5-11.0) 05/04/21 07:11 RBC 3.12 M/mm3 (3.65-5.03) L 05/04/21 07:11 Hgb 9.5 gm/dl (10.1-14.3) L 05/04/21 07:11 Hct 29.8 % (30.3-42.9) L D 05/04/21 07:11 MCV 96 fl (79-97) 05/04/21 07:11 MCH 30 pg (28-32) 05/04/21 07:11 MCHC 32 % (30-34) 05/04/21 07:11 RDW 16.6 % (13.2-15.2) H 05/04/21 07:11 Plt Count 184 K/mm3 (140-440) 05/04/21 07:11 Lymph % (Auto) 12.0 % (13.4-35.0) L 04/22/21 05:29 [place] % (Auto) 2.8 % (0.0-7.3) 04/30/21 07:40 Eos % (Auto) 0.9 % (0.0-4.3) 04/30/21 07:40 Baso % (Auto) 0.7 % (0.0-1.8) 04/22/21 05:29 Lymph # (Auto) 1.1 K/mm3 (1.2-5.4) L 04/22/21 05:29 [place] # (Auto) 0.2 K/mm3 (0.0-0.8) 04/30/21 07:40 Eos # (Auto) 0.1 K/mm3 (0.0-0.4) 04/30/21 07:40 Baso # (Auto) 0.0 K/mm3 (0.0-0.1) 04/30/21 07:40 Add Manual Diff Complete 05/03/21 03:45 Total Counted 100 05/03/21 03:45 Seg Neutrophils % 88.4 % (40.0-70.0) H 04/30/21 07:40 Seg Neuts % (Manual) 63.0 % (40.0-70.0) 05/03/21 03:45 Band Neutrophils % 22.0 % 05/03/21 03:45 Lymphocytes % (Manual) 9.0 % (13.4-35.0) L 05/03/21 03:45 Reactive Lymphs % (Man) 2.0 % 05/03/21 03:45 Monocytes % (Manual) 2.0 % (0.0-7.3) 05/03/21 03:45 Eosinophils % (Manual) 1.0 % (0.0-4.3) 04/30/21 07:40 Metamyelocytes % 3.0 % 05/02/21 06:57 Myelocytes % 2.0 % 05/03/21 03:45 Nucleated RBC % 6.0 % (0.0-0.9) H 05/03/21 03:45 Seg Neutrophils # 7.5 K/mm3 (1.8-7.7) 04/30/21 07:40 Seg Neutrophils # Man 5.4 K/mm3 (1.8-7.7) 05/03/21 03:45 Band Neutrophils # 1.9 K/mm3 05/03/21 03:45 Lymphocytes # (Manual) 0.8 K/mm3 (1.2-5.4) L 05/03/21 03:45 Abs React Lymphs (Man) 0.2 K/mm3 05/03/21 03:45 Monocytes # (Manual) 0.2 K/mm3 (0.0-0.8) 05/03/21 03:45 Eosinophils # (Manual) 0.0 K/mm3 (0.0-0.4) 05/03/21 03:45 Basophils # (Manual) 0.0 K/mm3 (0.0-0.1) 05/03/21 03:45 Metamyelocytes # 0.0 K/mm3 05/03/21 03:45 Myelocytes # 0.2 K/mm3 05/03/21 03:45 Promyelocytes # 0.0 K/mm3 05/03/21 03:45 Blast Cells # 0.0 K/mm3 05/03/21 03:45 WBC Morphology Not Reportable 05/03/21 03:45 Hypersegmented Neuts Not Reportable 05/03/21 03:45 Hyposegmented Neuts Not Reportable 05/03/21 03:45 Hypogranular Neuts Not Reportable 05/03/21 03:45 Smudge Cells Not Reportable 05/03/21 03:45 Toxic Granulation Not Reportable 05/03/21 03:45 Toxic Vacuolation Not Reportable 05/03/21 03:45 Dohle Bodies Not Reportable 05/03/21 03:45 Pelger-Huet Anomaly Not Reportable 05/03/21 03:45 Brenda Rods Not Reportable 05/03/21 03:45 Platelet Estimate Consistent w auto 05/03/21 03:45 Clumped Platelets Not Reportable 05/03/21 03:45 Plt Clumps, EDTA Not Reportable 05/03/21 03:45 Large Platelets Not Reportable 05/03/21 03:45 Giant Platelets Few 05/03/21 03:45 Platelet Satelliting Not Reportable 05/03/21 03:45 Plt Morphology Comment Not Reportable 05/03/21 03:45 RBC Morphology Not Reportable 05/03/21 03:45 Dimorphic RBCs Not Reportable 05/03/21 03:45 Polychromasia Not Reportable 05/03/21 03:45 Hypochromasia Not Reportable 05/03/21 03:45 Poikilocytosis Not Reportable 05/03/21 03:45 Anisocytosis Not Reportable 05/03/21 03:45 Microcytosis Not Reportable 05/03/21 03:45 Macrocytosis Not Reportable 05/03/21 03:45 Spherocytes Not Reportable 05/03/21 03:45 Pappenheimer Bodies Not Reportable 05/03/21 03:45 Sickle Cells Not Reportable 05/03/21 03:45 Target Cells Not Reportable 05/03/21 03:45 Tear Drop Cells Not Reportable 05/03/21 03:45 Ovalocytes Not Reportable 05/03/21 03:45 Helmet Cells Not Reportable 05/03/21 03:45 [place]-Brush Bodies Not Reportable 05/03/21 03:45 [place] Rings Not Reportable 05/03/21 03:45 Chay Cells Not Reportable 05/03/21 03:45 Bite Cells Not Reportable 05/03/21 03:45 Crenated Cell Not Reportable 05/03/21 03:45 Elliptocytes Not Reportable 05/03/21 03:45 Acanthocytes (Spur) Not Reportable 05/03/21 03:45 Rouleaux Not Reportable 05/03/21 03:45 Hemoglobin C Crystals Not Reportable 05/03/21 03:45 Schistocytes Not Reportable 05/03/21 03:45 Malaria parasites Not Reportable 05/03/21 03:45 Uli Bodies Not Reportable 05/03/21 03:45 Hem Pathologist Commnt No 05/03/21 03:45 PT 13.2 Sec. (12.2-14.9) 04/22/21 00:32 INR 0.95 (0.87-1.13) 04/22/21 00:32 APTT 29.2 Sec. (24.2-36.6) 04/22/21 00:32 D-Dimer 1522.26 ng/mlDDU (0-234) H 04/21/21 16:30 Heparin Anti-Xa Level 0.84 U.I./ml (0.3-0.7) H 04/24/21 10:14 ABG pH 7.414 (7.320-7.450) 05/04/21 16:25 POC ABG pCO2 80.8 mmHg (32.0-48.0) H 05/04/21 16:25 ABG pCO2 46.0 mm Hg 04/22/21 17:30 POC ABG pO2 55.2 mmHg (83-108) L 05/04/21 16:25 ABG pO2 99.6 mm Hg (80.0-90.0) H 04/22/21 17:30 POC ABG HCO3 50.5 05/04/21 16:25 ABG HCO3 24.4 mmol/L (20.0-26.0) 04/22/21 17:30 ABG O2 Saturation 87.7 (0-100) 05/04/21 16:25 ABG O2 Content 19.9 (0.0-44) 04/22/21 17:30 POC ABG Base Excess 22.9 05/04/21 16:25 ABG Base Excess -1.6 mmol/L (-2.0-3.0) 04/22/21 17:30 ABG Hemoglobin 8.6 (12.0-17.5) L 05/04/21 16:25 ABG Oxyhemoglobin 86.0 (94-98) L 05/04/21 16:25 ABG Carboxyhemoglobin 0.9 % (0.0-5.0) 04/22/21 17:30 ABG Methemoglobin 0.3 (0.0-1.5) 05/04/21 16:25 ABG Sodium 155.9 mmol/L (136.0-145.0) H 05/04/21 16:25 ABG Potassium 4.1 mmol/L (3.40-4.50) 05/04/21 16:25 ABG Chloride 107.0 mmol/L (98-107) 05/04/21 16:25 ABG Glucose 230 mg/dL (65-95) H 05/04/21 16:25 Oxyhemoglobin 95.9 % (95.0-99.0) 04/22/21 17:30 Carboxyhemoglobin 1.6 (0.5-1.5) H 05/04/21 16:25 FiO2 100 % 04/22/21 17:30 FiO2 % 100.0 05/04/21 16:25 Sodium 160 mmol/L (137-145) H D 05/04/21 07:11 Potassium 5.4 mmol/L (3.6-5.0) H 05/04/21 07:11 Chloride 109.9 mmol/L (98-107) H 05/04/21 07:11 Carbon Dioxide 45 mmol/L (22-30) H* D 05/04/21 07:11 Anion Gap 11 mmol/L 05/04/21 07:11 BUN 75 mg/dL (7-17) H 05/04/21 07:11 Creatinine 1.5 mg/dL (0.6-1.2) H 05/04/21 07:11 Estimated GFR 42 ml/min 05/04/21 07:11 BUN/Creatinine Ratio 50 % 05/04/21 07:11 Glucose 223 mg/dL (65-100) H 05/04/21 07:11 POC Glucose 202 mg/dL (70-105) H 05/04/21 17:28 Osmolality 375 Mosm/kg 05/04/21 13:27 Lactic Acid 3.00 mmol/L (0.7-2.0) H* 05/04/21 13:27 Calcium 10.0 mg/dL (8.4-10.2) 05/04/21 07:11 Phosphorus 3.80 mg/dL (2.5-4.5) 05/04/21 13:27 Magnesium 3.00 mg/dL (1.7-2.3) H 05/04/21 13:27 Total Bilirubin 0.40 mg/dL (0.1-1.2) 05/04/21 07:11 AST 44 units/L (5-40) H 05/04/21 07:11 ALT 32 units/L (7-56) 05/04/21 07:11 Alkaline Phosphatase 87 units/L (35-129) 05/04/21 07:11 Ammonia 58.0 umol/L (25-60) 04/28/21 04:45 Total Creatine Kinase 32 units/L (30-135) 05/03/21 03:45 CK-MB (CK-2) 22.4 ng/mL (0.0-4.0) H 04/21/21 16:32 CK-MB (CK-2) Rel Index 0.7 (0-4) 04/21/21 16:32 Troponin T 0.055 ng/mL (0.00-0.029) H 04/21/21 16:32 Total Protein 5.7 g/dL (6.3-8.2) L 05/04/21 07:11 Albumin 2.2 g/dL (3.9-5) L 05/04/21 07:11 Albumin/Globulin Ratio 0.6 % 05/04/21 07:11 Triglycerides 304 mg/dL (2-149) H 04/30/21 17:00 Cholesterol 220 mg/dL (50-199) H 04/21/21 16:32 LDL Cholesterol Direct 142 mg/dL (50-130) H 04/21/21 16:32 HDL Cholesterol 36 mg/dL (40-59) L 04/21/21 16:32 Cholesterol/HDL Ratio 6.11 % 04/21/21 16:32 TSH 0.051 mlU/mL (0.270-4.200) L 05/03/21 06:05 Free T4 1.05 ng/dL (0.76-1.46) 04/21/21 16:32 Arterial Blood Glucose 230 mg/dL (65-95) H 05/04/21 16:25 Arterial Blood Ionized Calcium 4.5 mg/dL (4.6-5.3) L 05/04/21 16:25 Urine Color [place] (Yellow) 05/03/21 16:10 Urine Turbidity Turbid (Clear) 05/03/21 16:10 Urine pH 5.0 (5.0-7.0) 05/03/21 16:10 Ur Specific [place] 1.016 (1.003-1.030) 05/03/21 16:10 Urine Protein 30 mg/dl mg/dL (Negative) 05/03/21 16:10 Urine Glucose (UA) Neg mg/dL (Negative) 05/03/21 16:10 Urine Ketones Neg mg/dL (Negative) 05/03/21 16:10 Urine Blood Sm (Negative) 05/03/21 16:10 Urine Nitrite Neg (Negative) 05/03/21 16:10 Urine Bilirubin Neg (Negative) 05/03/21 16:10 Urine Urobilinogen 2.0 mg/dL (<2.0) 05/03/21 16:10 Ur Leukocyte Esterase Sm (Negative) 05/03/21 16:10 Urine WBC (Auto) 43.0 /HPF (0.0-6.0) H 05/03/21 16:10 Urine RBC (Auto) 20.0 /HPF (0.0-6.0) 05/03/21 16:10 U Epithel Cells (Auto) 11.0 /HPF (0-13.0) 05/03/21 16:10 Urine Bacteria (Auto) 2+ /HPF (Negative) 05/03/21 16:10 Urine WBC Clumps 3+ /HPF 05/03/21 16:10 Urine Mucus 2+ /HPF 05/03/21 16:10 Urine Yeast (Budding) 3+ /HPF 05/03/21 16:10 Urine Osmolality 435 Mosm/kg 05/03/21 16:10 Urine Creatinine 65.6 mg/dL (0.1-20.0) H 05/03/21 16:10 Urine Sodium 38 mmol/L 05/03/21 16:10 Urine Urea Nitrogen 597 05/03/21 16:10 Urine Total Protein 86 mg/dL (5-11.8) H 04/22/21 13:03 Urine Opiates Screen Negative 04/21/21 Unknown Urine Methadone Screen Negative 04/21/21 Unknown Ur Barbiturates Screen Negative 04/21/21 Unknown Ur Phencyclidine Scrn Negative 04/21/21 Unknown Ur Amphetamines Screen Negative 04/21/21 Unknown U Benzodiazepines Scrn Negative 04/21/21 Unknown Urine Cocaine Screen Negative 04/21/21 Unknown U Marijuana (THC) Screen Negative 04/21/21 Unknown Drugs of Abuse Note Disclamer 04/21/21 Unknown Plasma/Serum Alcohol < 0.01 % (0-0.07) 04/21/21 16:32 Coronavirus (PCR) Negative (Negative) 04/23/21 Unknown Microbiology: Microbiology 05/03/21 16:55 Tracheal Aspirate Sputum Culture - Preliminary 05/03/21 15:27 Peripheral/Venous Blood Culture - Preliminary 05/03/21 15:27 Peripheral/Venous Blood Culture - Preliminary 05/03/21 16:10 Urine,Clean Catch Urine Culture - Preliminary Gram Negative Markus Mcfadden/IV: Voiding Method Indwelling Catheter Active Medications - Current Medications Current Medications: Generic Name Dose Route Start Last Admin Trade Name Freq PRN Reason Stop Dose Admin Acetaminophen 650 mg 04/21/21 21:11 04/28/21 16:30 Acetaminophen 325 Mg Tab PO 650 mg Q4H PRN Administration Pain MILD(1-3)/Fever >100.5/DICKINSON Acetaminophen 650 mg 05/03/21 23:39 Acetaminophen 650 Mg Rect Supp NC Q6H PRN Feverr>100.5 Lipase/Protease/Amylase 1 each 04/22/21 10:51 Lipase 10,500/Protease 25,000/Amylase 43,750 (Units) Dr Cap FEEDTUBE PRN PRN For Clogged Feeding Tube Arformoterol Tartrate 15 mcg 04/29/21 20:00 05/04/21 07:45 Arformoterol 15 Mcg/2 Ml Nebu IH 15 mcg Q12HRT MINOR Administration Aspirin 325 mg 05/01/21 13:00 05/04/21 09:07 Aspirin 325 Mg Tab PO 325 mg QDAY MINOR Administration Atorvastatin Calcium 40 mg 05/01/21 22:00 05/03/21 21:33 Atorvastatin 40 Mg Tab PO 40 mg QHS MINOR Administration Budesonide 0.5 mg 04/29/21 20:00 05/04/21 07:45 Budesonide 0.5 Mg/2 Ml Nebu IH 0.5 mg Q12HRT MINOR Administration Dextrose 50 ml 05/03/21 12:25 05/03/21 12:44 Dextrose 50% In Water (25gm) 50 Ml Syringe IV 50 ml Q30MIN PRN Administration Hypoglycemia Protocol Enoxaparin Sodium 80 mg 04/29/21 14:00 05/04/21 13:32 Enoxaparin 80 Mg/0.8 Ml Inj SUB-Q 80 mg Q12H MINOR Administration Famotidine 20 mg 05/04/21 10:00 05/04/21 09:07 Famotidine 20 Mg Tab PO 20 mg DAILY MINOR Administration Hydralazine HCl 10 mg 04/29/21 12:23 Hydralazine 20 Mg/1 Ml Inj IV Q4H PRN Hypertension Hydrophilic Ointment 1 applic 04/21/21 15:46 Lip Therapy Vaseline TP Q2HR PRN Dry Lips Propofol 1,000 mg in 100 mls @ 2.19 mls/hr 04/26/21 11:00 05/04/21 17:10 Diprivan 10 Mg/Ml IV 10 mcg/kg/min TITR MINOR 4.38 mls/hr Administration Protocol 5 MCG/KG/MIN Lorazepam 100 mg/ Sodium 100 mls @ 1 mls/hr 04/30/21 11:00 05/04/21 01:11 Chloride/ Miscellaneous IV 2 mg/hr Information TITR MINOR 2 mls/hr Titration Protocol 1 MG/HR Vasopressin 20 unit/ Sodium 101 mls @ 9.09 mls/hr 05/02/21 21:00 05/04/21 17:08 Chloride IV 0.03 units/min TITR MINOR 9.09 mls/hr Administration Protocol 0.03 UNITS/MIN Norepinephrine 4 mg in 250 mls @ 7.5 mls/hr 05/03/21 02:00 05/04/21 06:34 Levophed Drip 4 Mg/Ns 250 Ml IV 4 mcg/min TITR MINOR 15 mls/hr Titration Protocol 2 MCG/MIN Cefepime HCl 2 gm in 100 mls @ 200 mls/hr 05/03/21 16:00 05/04/21 17:07 Cefepime/Ns 2 Gm/100 Ml IV 200 mls/hr Q12H MINOR Administration Protocol Vancomycin HCl 1 gm in 250 mls @ 167.007 mls/hr 05/04/21 16:00 05/04/21 17:07 Vancomycin/Ns 1 Gm/250 Ml IV 167.007 mls/hr Q24H MINOR Administration Dextrose 1,000 mls @ 75 mls/hr 05/04/21 09:00 05/04/21 08:57 D5w IV 75 mls/hr DIRECT MINOR Administration Insulin Human Lispro 0 unit 05/03/21 00:00 05/04/21 17:38 Insulin Lispro 100 Unit/Ml SUB-Q 3 unit Q6HR MINOR Administration Protocol Levetiracetam 750 mg 04/25/21 10:00 05/04/21 09:06 Levetiracetam 500 Mg/5 Ml Oral Liqd PO 750 mg BID MINOR Administration Methylprednisolone Sodium Succinate 60 mg 04/28/21 06:00 05/04/21 17:08 Methylprednisolone Sod Succinate 40 Mg/1 Ml Inj IV 60 mg Q6H MINOR Administration Multi-Ingred Cream/Lotion/Oil/Oint 1 applic 04/21/21 15:46 Mineral Oil/Petrolatum, White Ophth Oint 3.5 Gm OU Q4HR PRN Dry Eye(s) Ondansetron HCl 4 mg 05/03/21 18:23 05/03/21 18:40 Ondansetron 4 Mg/2 Ml Inj IV 4 mg Q6H PRN Administration Nausea And Vomiting Polyethylene Glycol 17 gm 05/02/21 15:00 Polyethylene Glycol 3350 17 Gm Powder PO QDAY PRN Constipation Quetiapine Fumarate 25 mg 04/30/21 11:00 05/04/21 09:06 Quetiapine 25 Mg Tab PO 25 mg BID MINOR Administration Senna/Docusate Sodium 1 tab 04/26/21 22:00 05/03/21 21:33 Sennosides/Docusate Sodium 8.6/50 Mg Tab FEEDTUBE 1 tab QHS MINOR Administration Simple Syrup 15 ml 04/22/21 10:51 Simple Syrup 15 Ml FEEDTUBE PRN PRN Hypoglycemia Simple Syrup 30 ml 04/22/21 10:51 Simple Syrup 15 Ml FEEDTUBE PRN PRN Hypoglycemia Sodium Bicarbonate 325 mg 04/22/21 10:51 Sodium Bicarbonate 325 Mg Tab FEEDTUBE PRN PRN For Clogged Feeding Tube Sodium Chloride 10 ml 04/21/21 22:00 05/04/21 09:06 Sodium Chloride 0.9% 10 Ml Flush Syringe IV 10 ml BID MINOR Administration Sodium Chloride 10 ml 04/21/21 21:11 04/27/21 02:54 Sodium Chloride 0.9% 10 Ml Flush Syringe IV 10 ml PRN PRN Administration LINE FLUSH Nutrition/Malnutrition Assess - Dietary Evaluation Nutrition/Malnutrition Findings: Nutrition Notes Start: 04/22/21 10:45 Freq: Status: Active Protocol: Document 05/01/21 12:27 (Rec: 05/01/21 12:30 [email or web address]) Nutrition Notes Initial or Follow up Reassessment Current Diagnosis Acute Kidney Injury, Hypertension,Stroke, Hyperlipidemia Other Pertinent Diagnosis New onset seizures, AMS, pulmonary embolism Current Diet TF - Nepro 35ml/hr Labs/Tests K 5.3 BUN 39 Pertinent Medications Solu medrol Height 5 ft 9 in Weight 79 kg [place] Body Weight (kg) 65.90 BMI 25.7 Weight change and time frame wt flucuations Weight Status Appropriate Subjective/Other Information Pt tolerating TF per RN. changed flush to 250 ml q4h. Percent of energy/protein needs met: 89% energy 71% pro Burn Absent Trauma Absent Minimum of two criteria No #1 Nutrition Diagnosis Inadequate oral intake Diagnosis Progress(for reassessment Continues documentation) Is patient on ventilator? Yes Is Patient Ambulatory and/or Out of Bed No REE-([place]-St. Jeor-confined to bed) 4988.691 Calculation Used for Recommendations [place]-St Jeor Additional Notes Pro needs 1.2-2g/k-159g/ day Fluid needs 1ml/kcal Nutrition Intervention Nutrition Support: Continue Nepro at 35ml/hr with 150ml water flush q4h. Kcal 1,512 Protein (gm) 68 Carbohydrates (gm) 135 Fat (gm) 81 Fluid (mL) 611 Fiber (gm) 11 Goal #1 TF tolerance Goal #2 TF to meet at least 75% energy and pro needs Follow-Up By: 05/08/21 Additional Comments FU for stable TF
[2021-05-04] MEDS ORDERED: DEXTROSE 50% IN WATER (25GM) 50 ML SYRINGE IV PRN (19:00)
[2021-05-04] MEDS: SENNOSIDES/DOCUSATE SODIUM 8.6/50 MG TAB FEEDTUBE SCH (21:19)
[2021-05-05] MEDS: INSULIN LISPRO 100 UNIT/ML SUB-Q SCH ×5 (00:27→23:55)
[2021-05-05] MEDS: methylPREDNISolone Sod Succinate 40 MG/1 ML INJ IV SCH ×5 (00:28→23:57)
[2021-05-05 00:43] LABS: Calcium 9.2 mg/dL (8.4-10.2)
--- NOTE | 2021-05-05 02:25 | XRay Report ---
CHEST 1 VIEW 05/05/2021 1:35 AM INDICATION / CLINICAL INFORMATION: hypoxia. COMPARISON: 05/03/21 FINDINGS: SUPPORT DEVICES: Unchanged. HEART / MEDIASTINUM: No significant abnormality. LUNGS / PLEURA: Bilateral pulmonary opacities are unchanged. No pneumothorax. ADDITIONAL FINDINGS: No significant additional findings. IMPRESSION: 1. No significant change. Signer Name: Ramo Nicholas MD Signed: 05/05/2021 2:21 AM Workstation Name: [id number]
--- NOTE | 2021-05-05 02:26 | XRay Report ---
ABDOMEN 1 VIEW 05/05/2021 1:35 AM INDICATION / CLINICAL INFORMATION: ileus. COMPARISON: 05/04/21 FINDINGS: TUBES / LINES: Esophagogastric tube remains in the stomach. BOWEL GAS PATTERN: Moderately dilated loops of small bowel are essentially unchanged. FREE AIR / EXTRALUMINAL GAS: None. ADDITIONAL FINDINGS: Cholelithiasis is unchanged. IMPRESSION: 1. No change in moderately dilated loops of small bowel. Signer Name: Ramo Nicholas MD Signed: 05/05/2021 2:22 AM Workstation Name: [id number]
[2021-05-05] MEDS: ENOXAPARIN 80 MG/0.8 ML INJ SUB-Q SCH ×2 (02:28→15:10)
[2021-05-05] MEDS: FREE WATER PO SCH ×6 (02:29→22:56)
[2021-05-05] MEDS: VASOPRESSIN 20 UNIT in SODIUM CHLORIDE 0.9% 100 ML IV SCH (03:30)
[2021-05-05] MEDS: CEFEPIME/NS 2 GM/100 ML 2 GM/100 ML BAG IV SCH ×2 (03:31→15:10)
[2021-05-05 05:58] LABS: Hematocrit 27.1 % (30.3-42.9); Hemoglobin 8.6 gm/dl (10.1-14.3); Mean Corpuscular HGB Conc 32 % (30-34); Mean Corpuscular Volume 97 fl (79-97); Platelet Count 212 K/mm3 (140-440); Red Blood Count 2.78 M/mm3 (3.65-5.03)
[2021-05-05 06:16] LABS: Calcium 9.9 mg/dL (8.4-10.2)
[2021-05-05] MEDS: ARFORMOTEROL 15 MCG/2 ML NEBU IH SCH (09:13)
[2021-05-05] MEDS: BUDESONIDE 0.5 MG/2 ML NEBU IH SCH (09:13)
[2021-05-05] MEDS: QUEtiapine 25 MG TAB PO SCH ×2 (09:24→21:28)
[2021-05-05] MEDS: levETIRAcetam 500 MG/5 ML ORAL LIQD PO SCH ×2 (09:24→21:27)
[2021-05-05] MEDS: FAMOTIDINE 20 MG TAB PO SCH (09:24)
[2021-05-05] MEDS: ASPIRIN 325 MG TAB PO SCH (09:24)
--- NOTE | 2021-05-05 10:36 | Progress Note ---
Assessment and Plan - Patient Problems (1) LIZBETH (acute kidney injury) Current Visit: Yes Status: Acute Plan to address problem: Likely in the setting of acute tubular necrosis and prerenal injury with now worsening volume overload and recurrent acute kidney injury noted on this admission. Agree with hemodynamic management and has improved and pressors have been weaned. Patient also started on gentle IV fluids with D5W at 100 cc/hr. Please avoid all nephrotoxins and maintain mean arterial pressures above 65 mmHg. Overall patient's prognosis is very guarded at this time. She is nonoliguric. We have to closely monitor her urine output and I would challenge with another dose of Lasix today. (2) Acute respiratory failure with hypoxia Current Visit: Yes Status: Acute Plan to address problem: Chest x-ray reviewed with findings concerning for worsening volume overload and pulmonary edema. FiO2 remains 100% on current vent settings. I would recommend another dose of Lasix today 40 mg IV. Had good response yesterday. (3) Hypotension Current Visit: Yes Status: Acute Plan to address problem: Pressor requirements have decreased and she has been able to be weaned off at this time. (4) Hyperkalemia Current Visit: Yes Status: Acute Plan to address problem: Medical management at this time and will closely monitor. (5) Hypernatremia Current Visit: Yes Status: Acute Plan to address problem: On D5W at 100 cc/hr. FWF has been discontinued at this time secondary to findings of abdominal ileus. Per LEAN SENSEI she did have a BM yesterday. Would reassess and if illeus resolving/improved post OG tube placement. Ideally in her situation given her respiratory status and pulmonary edema noted on chest xray, would want to minimize continuous IVF as best we can. Subjective Date of service: 05/05/21 Principal diagnosis: Acute kidney injury, rhabdomyolysis Interval history: Responded well to dose of lasix 40 mg IV yesterday, with ~4L UOP noted. Objective - Vital Signs Vital signs: Vital Signs - 12hr 05/04/21 05/04/21 05/04/21 22:46 23:00 23:16 Temperature Pulse Rate 130 H 129 H 129 H Pulse Rate [ Anterior Bilateral] Respiratory 33 H 20 39 H Rate Respiratory Rate [Anterior Bilateral] Blood Pressure O2 Sat by Pulse 95 94 95 Oximetry 05/04/21 05/04/21 05/04/21 23:30 23:46 23:49 Temperature Pulse Rate 128 H 129 H 128 H Pulse Rate [ Anterior Bilateral] Respiratory 29 H 34 H Rate Respiratory Rate [Anterior Bilateral] Blood Pressure 113/66 O2 Sat by Pulse 96 94 98 Oximetry 05/05/21 05/05/21 05/05/21 00:00 00:16 00:30 Temperature 97.7 F Pulse Rate 127 H 127 H 127 H Pulse Rate [ Anterior Bilateral] Respiratory 20 29 H 26 H Rate Respiratory Rate [Anterior Bilateral] Blood Pressure O2 Sat by Pulse 92 98 91 Oximetry 05/05/21 05/05/21 05/05/21 00:46 01:00 01:16 Temperature Pulse Rate 127 H 127 H 127 H Pulse Rate [ Anterior Bilateral] Respiratory 30 H 42 H 28 H Rate Respiratory Rate [Anterior Bilateral] Blood Pressure O2 Sat by Pulse 93 96 98 Oximetry 05/05/21 05/05/21 05/05/21 01:30 01:46 02:00 Temperature Pulse Rate 126 H 125 H 125 H Pulse Rate [ Anterior Bilateral] Respiratory 23 10 L 10 L Rate Respiratory Rate [Anterior Bilateral] Blood Pressure O2 Sat by Pulse 97 89 89 Oximetry 05/05/21 05/05/21 05/05/21 02:16 02:30 02:46 Temperature Pulse Rate 124 H 125 H 123 H Pulse Rate [ Anterior Bilateral] Respiratory 10 L 10 L 10 L Rate Respiratory Rate [Anterior Bilateral] Blood Pressure O2 Sat by Pulse 97 91 98 Oximetry 05/05/21 05/05/21 05/05/21 03:00 03:16 03:30 Temperature 97.8 F Pulse Rate 123 H 123 H 122 H Pulse Rate [ Anterior Bilateral] Respiratory 10 L 10 L 10 L Rate Respiratory Rate [Anterior Bilateral] Blood Pressure O2 Sat by Pulse 96 96 95 Oximetry 05/05/21 05/05/21 05/05/21 03:46 04:00 04:16 Temperature 97.8 F Pulse Rate 122 H 122 H 120 H Pulse Rate [ Anterior Bilateral] Respiratory 17 13 10 L Rate Respiratory Rate [Anterior Bilateral] Blood Pressure 140/65 144/75 O2 Sat by Pulse 100 94 100 Oximetry 05/05/21 05/05/21 05/05/21 04:30 04:45 05:00 Temperature Pulse Rate 121 H 122 H 123 H Pulse Rate [ Anterior Bilateral] Respiratory 10 L 10 L 10 L Rate Respiratory Rate [Anterior Bilateral] Blood Pressure 145/67 122/66 132/60 O2 Sat by Pulse 97 96 96 Oximetry 05/05/21 05/05/21 05/05/21 05:15 05:30 05:45 Temperature Pulse Rate 123 H 123 H 121 H Pulse Rate [ Anterior Bilateral] Respiratory 10 L 10 L 10 L Rate Respiratory Rate [Anterior Bilateral] Blood Pressure 127/65 130/62 123/64 O2 Sat by Pulse 96 95 94 Oximetry 05/05/21 05/05/21 05/05/21 06:00 06:15 06:30 Temperature Pulse Rate 121 H 122 H 121 H Pulse Rate [ Anterior Bilateral] Respiratory 10 L 10 L 10 L Rate Respiratory Rate [Anterior Bilateral] Blood Pressure 122/62 108/63 104/65 O2 Sat by Pulse 95 95 96 Oximetry 05/05/21 05/05/21 05/05/21 06:46 07:00 07:15 Temperature Pulse Rate 120 H 120 H 120 H Pulse Rate [ Anterior Bilateral] Respiratory 10 L 10 L 10 L Rate Respiratory Rate [Anterior Bilateral] Blood Pressure 102/69 104/65 115/66 O2 Sat by Pulse 95 95 Oximetry 05/05/21 05/05/21 05/05/21 07:30 07:45 08:00 Temperature 98.9 F Pulse Rate 120 H 120 H 119 H Pulse Rate [ Anterior Bilateral] Respiratory 10 L 10 L 10 L Rate Respiratory Rate [Anterior Bilateral] Blood Pressure 123/69 127/67 127/67 O2 Sat by Pulse 93 96 95 Oximetry 05/05/21 05/05/21 05/05/21 08:15 08:30 08:45 Temperature Pulse Rate 118 H 119 H 118 H Pulse Rate [ Anterior Bilateral] Respiratory 10 L 10 L 10 L Rate Respiratory Rate [Anterior Bilateral] Blood Pressure 131/70 141/68 130/69 O2 Sat by Pulse 95 93 94 Oximetry 05/05/21 05/05/21 05/05/21 09:00 09:09 09:15 Temperature Pulse Rate 118 H 115 H 113 H Pulse Rate [ Anterior Bilateral] Respiratory 10 L 10 L Rate Respiratory Rate [Anterior Bilateral] Blood Pressure 129/70 129/70 138/68 O2 Sat by Pulse 95 94 95 Oximetry 05/05/21 05/05/21 05/05/21 09:30 09:40 09:45 Temperature Pulse Rate 110 H 114 H Pulse Rate [ 117 H Anterior Bilateral] Respiratory 10 L 10 L Rate Respiratory 20 Rate [Anterior Bilateral] Blood Pressure 140/69 130/67 O2 Sat by Pulse 87 92 Oximetry 05/05/21 05/05/21 10:00 10:15 Temperature Pulse Rate 115 H 115 H Pulse Rate [ Anterior Bilateral] Respiratory 10 L 10 L Rate Respiratory Rate [Anterior Bilateral] Blood Pressure 130/62 126/62 O2 Sat by Pulse 94 94 Oximetry - General Appearance General appearance: intubated, frail EENT: ATNC Neck: no JVD Respiratory: Present: Decreased Breath Sounds Cardiology: regular Gastrointestinal: normal Integumentary: no rash Musculoskeletal: deferred - Lab 05/05/21 04:58 05/05/21 04:58 Most recent lab results ABG pH 7.385 (7.320-7.450) 05/04/21 22:00 ABG pCO2 46.0 mm Hg 04/22/21 17:30 ABG pO2 99.6 mm Hg (80.0-90.0) H 04/22/21 17:30 ABG HCO3 24.4 mmol/L (20.0-26.0) 04/22/21 17:30 ABG O2 Saturation 89.1 (0-100) 05/04/21 22:00 Calcium 9.9 mg/dL (8.4-10.2) 05/05/21 04:58 Phosphorus 3.00 mg/dL (2.5-4.5) D 05/05/21 04:58 Magnesium 3.00 mg/dL (1.7-2.3) H 05/05/21 04:58 Urine Creatinine 65.6 mg/dL (0.1-20.0) H 05/03/21 16:10 Urine Sodium 38 mmol/L 05/03/21 16:10 Urine Total Protein 86 mg/dL (5-11.8) H 04/22/21 13:03 - Allied health notes Allied health notes reviewed: nursing Medications & Allergies - Medications Allergies/Adverse Reactions: Allergies No Known Allergies Allergy (Unverified 03/04/19 19:33) Home Medications: Home Medications Medication Instructions Recorded Confirmed Last Taken Type Lipitor 40 mg PO QHS #30 03/10/19 04/25/21 Unknown Rx Aspirin 300 mg PO QDAY 04/25/21 04/25/21 Unknown History Aspirin [Aspirin BABY CHEW TAB] 81 mg PO QDAY 04/25/21 04/25/21 Unknown History Sertraline [Zoloft] 50 mg PO QDAY 04/25/21 04/25/21 Unknown History amLODIPine 10 mg PO QDAY 04/25/21 04/25/21 Unknown History hydroCHLOROthiazide 12.5 mg PO QDAY 04/25/21 04/25/21 Unknown History [Hydrochlorothiazide] Active Medications: Generic Name Dose Route Start Last Admin Trade Name Freq PRN Reason Stop Dose Admin Acetaminophen 650 mg 04/21/21 21:11 04/28/21 16:30 Acetaminophen 325 Mg Tab PO 650 mg Q4H PRN Administration Pain MILD(1-3)/Fever >100.5/DICKINSON Acetaminophen 650 mg 05/03/21 23:39 Acetaminophen 650 Mg Rect Supp IN Q6H PRN Feverr>100.5 Lipase/Protease/Amylase 1 each 04/22/21 10:51 Lipase 10,500/Protease 25,000/Amylase 43,750 (Units) Dr Ryan FEEDTUBE PRN PRN For Clogged Feeding Tube Arformoterol Tartrate 15 mcg 04/29/21 20:00 05/05/21 09:13 Arformoterol 15 Mcg/2 Ml Nebu IH 15 mcg Q12HRT MINOR Administration Aspirin 325 mg 05/01/21 13:00 05/05/21 09:24 Aspirin 325 Mg Tab PO 325 mg QDAY MINOR Administration Atorvastatin Calcium 40 mg 05/01/21 22:00 05/04/21 21:19 Atorvastatin 40 Mg Tab PO 40 mg QHS MINOR Administration Budesonide 0.5 mg 04/29/21 20:00 05/05/21 09:13 Budesonide 0.5 Mg/2 Ml Nebu IH 0.5 mg Q12HRT MINOR Administration Dextrose 50 ml 05/04/21 19:00 Dextrose 50% In Water (25gm) 50 Ml Syringe IV Q30MIN PRN Hypoglycemia Protocol Enoxaparin Sodium 80 mg 04/29/21 14:00 05/05/21 02:28 Enoxaparin 80 Mg/0.8 Ml Inj SUB-Q 80 mg Q12H MINOR Administration Famotidine 20 mg 05/04/21 10:00 05/05/21 09:24 Famotidine 20 Mg Tab PO 20 mg DAILY MINOR Administration Hydralazine HCl 10 mg 04/29/21 12:23 Hydralazine 20 Mg/1 Ml Inj IV Q4H PRN Hypertension Hydrophilic Ointment 1 applic 04/21/21 15:46 Lip Therapy Vaseline TP Q2HR PRN Dry Lips Propofol 1,000 mg in 100 mls @ 2.19 mls/hr 04/26/21 11:00 05/04/21 17:10 Diprivan 10 Mg/Ml IV 10 mcg/kg/min TITR MINOR 4.38 mls/hr Administration Protocol 5 MCG/KG/MIN Lorazepam 100 mg/ Sodium 100 mls @ 1 mls/hr 04/30/21 11:00 05/04/21 01:11 Chloride/ Miscellaneous IV 2 mg/hr Information TITR MINOR 2 mls/hr Titration Protocol 1 MG/HR Vasopressin 20 unit/ Sodium 101 mls @ 9.09 mls/hr 05/02/21 21:00 05/05/21 04:18 Chloride IV 0 units/min TITR MINOR 0 mls/hr Titration Protocol 0.03 UNITS/MIN Norepinephrine 4 mg in 250 mls @ 7.5 mls/hr 05/03/21 02:00 05/04/21 21:32 Levophed Drip 4 Mg/Ns 250 Ml IV 0 mcg/min TITR MINOR 0 mls/hr Titration Protocol 2 MCG/MIN Cefepime HCl 2 gm in 100 mls @ 200 mls/hr 05/03/21 16:00 05/05/21 04:18 Cefepime/Ns 2 Gm/100 Ml IV Infused Q12H MINOR Infusion Protocol Dextrose 1,000 mls @ 100 mls/hr 05/04/21 09:00 05/04/21 22:41 D5w IV 75 mls/hr DIRECT MINOR Administration Insulin Human Lispro 0 unit 05/03/21 00:00 05/05/21 06:23 Insulin Lispro 100 Unit/Ml SUB-Q 3 unit Q6HR MINOR Administration Protocol Levetiracetam 750 mg 04/25/21 10:00 05/05/21 09:24 Levetiracetam 500 Mg/5 Ml Oral Liqd PO 750 mg BID MINOR Administration Methylprednisolone Sodium Succinate 60 mg 04/28/21 06:00 05/05/21 06:23 Methylprednisolone Sod Succinate 40 Mg/1 Ml Inj IV 60 mg Q6H MINOR Administration Multi-Ingred Cream/Lotion/Oil/Oint 1 applic 04/21/21 15:46 Mineral Oil/Petrolatum, White Ophth Oint 3.5 Gm OU Q4HR PRN Dry Eye(s) Ondansetron HCl 4 mg 05/03/21 18:23 05/03/21 18:40 Ondansetron 4 Mg/2 Ml Inj IV 4 mg Q6H PRN Administration Nausea And Vomiting Polyethylene Glycol 17 gm 05/02/21 15:00 Polyethylene Glycol 3350 17 Gm Powder PO QDAY PRN Constipation Quetiapine Fumarate 25 mg 04/30/21 11:00 05/05/21 09:24 Quetiapine 25 Mg Tab PO 25 mg BID MINOR Administration Senna/Docusate Sodium 1 tab 04/26/21 22:00 05/04/21 21:19 Sennosides/Docusate Sodium 8.6/50 Mg Tab FEEDTUBE 1 tab QHS MINOR Administration Simple Syrup 15 ml 04/22/21 10:51 Simple Syrup 15 Ml FEEDTUBE PRN PRN Hypoglycemia Simple Syrup 30 ml 04/22/21 10:51 Simple Syrup 15 Ml FEEDTUBE PRN PRN Hypoglycemia Sodium Bicarbonate 325 mg 04/22/21 10:51 Sodium Bicarbonate 325 Mg Tab FEEDTUBE PRN PRN For Clogged Feeding Tube Sodium Chloride 10 ml 04/21/21 22:00 05/05/21 09:24 Sodium Chloride 0.9% 10 Ml Flush Syringe IV 10 ml BID MINOR Administration Sodium Chloride 10 ml 04/21/21 21:11 04/27/21 02:54 Sodium Chloride 0.9% 10 Ml Flush Syringe IV 10 ml PRN PRN Administration LINE FLUSH
[2021-05-05] MEDS ORDERED: FUROSEMIDE 40 MG/4 ML INJ IV ONE (10:41)
[2021-05-05] MEDS: DEXTROSE 5% IN WATER 1,000 ML IV SCH (12:24)
--- NOTE | 2021-05-05 12:37 | Progress Note ---
Assessment and Plan 66 y/o female, intubated for airway protection, found to have severe ILD and no has refractory hypoxemia. 05/05/21: Now with GNR bacteremia, most likely source is urine. Needs corral however as she had urinary retention and we need strict I/O. Will change corral out today. Agree with repeat lasix that renal has already ordered. Patient is on Cefepime and agree with stopping vanc. Await speciation and susceptibilities. She has had minimal to no output from OG so will restart tube feeds and free water at 200q4. Ok with continuing D5 and bumping up rate. Will start to wean FiO2 again tomorrow. Will need repeat blood cultures as well. Ordered triglyceride level but not done. Will order again 05/04/21: Appreciate renal help and agree with trial of lasix. Made adjustments to aprv to help with ventilation. Repeat gas in 1 hour. Getting lasix, but suggest repeat chemistry tonight around 2100. Maintain sedation to rass of -4. Wean FiO2 for sats >88%. ok with pH's of >7.2. Overall prognosis remains guarded. Will reach out to daughter in the am. Guarded prognosis. Will check triglyceride levels in the am. 05/03/21: Found to have ileus on ABD x-ray. Hold feeds and continue to suction. Repeat imaging in am. Need to address hyperkalemia with IV therapy given Ileus. Will do insulin and Kayexalate therapy. Suggest repeat K later this evening. Dropped FiO2 to 90, continue to wean for sats greater 88%. No lasix today. Will give a liter bolus of LR. May need an additional bolus. Unable to transduce CVP from picc. Continue IV steroids. Repeat ABG in am. Suspect that renal insufficiency will be transient but will monitor closely. Guarded prognosis. Need to hold on CT given instability. 05/02/21: Continue current level of sedation. Maintain current TV settings and repeat ABG in am. Goal is to get FiO2 at 60 or less in the next 24 hours. Once FiO2 less than 50% can start weaning PEEP. Repeat IV lasix today. Will likely need more free water. Continue steroids. Guarded prognosis. 05/01/21: Continue Ativan and Diprovan drip. Maintain low tidal volume and high PEEP and as long as pH is greater than 7.2. continue diuresis with IV lasix. Guarded prognosis. Will call daughter back today. Continue High dose IV steroids for now. 04/30/21: Will add Ativan drip and attempt to wean Precedex to off. Once adequate sedation achieved and BP stable, will give an additional dose of IV l asix today. Increased Free Water to 250q4. Ok with current Triglyceride level but will need to repeat. Prognosis remains guarded. Will call daughter to update her. 04/29/21: Continue low tidal volumes and high PEEPs. Lasix 40mg IV x1 today. Continue high dose steroids. Will start pulmicort and brovana therapy. Prognosis remains very very guarded. Follow up Triglyceride episode tomorrow. 04/26/21: Dropped tidal volume to 300. Keep PEEP at 16. Repeat ABG at 1230. Now that BP is better will give lasix 40 IV x1. Please assess again tomorrow and see if she would benefit from this. Pulse dose steroids through tomorrow and then solumedrol 60q6 starting on Thursday. Spoke with daughter over the phone who confirmed that mother was a smoker, heavy for 30+ years. Will start on BID pulmicort and brovana therapy. Overall prognosis discussed with daughter regarding possible need for trach and vent dependence. She asked about lung tx which I explained is not an option at this time. She seemed to express understanding but was mainly in shock as she had no idea her mother had ILD and per daughter, mother never saw a lung physician. Guarded to poor prognosis. My partner rounding over the weekend, I am back on Thursday. 04/25/21: Picc line today. Increase PEEP to 16. Dropped TV back to 375. pH of 7.2 and greater is acceptable. Will also pulse dose for the next 72 hours and then transition to q6 dosing on Thursday. Will discuss current clinical state with daughter. Serial ABG's today to make sure pH stays where it needs to be and hopeful improvement in oxygenation. Guarded prognosis. 04/24/21: Will drop TV to 375 and Increase PEEP to 14. Will repeat ABG in one hour. If no improvements, may need to consider IV steroids for 48-72 hours. Exact etiology of chronic lung disease is not known. Would prefer not to give sedation vacation given high levels of oxygen required as agitation could make things worse. Right now, unable to determine current neuro state. Lungs are very very sick and even though this is a chronic issue, now with her drive diminished from the ventilator, most likely will be a difficult wean. Will discuss with family soon what the next steps could potentially be but would need to assess mental state first. Guarded prognosis. 1. Increase PEEP and repeat ABG 2. May need to consider IV steroids 3. Follow up neuro recs 4. Guarded prognosis. cCT 31 minutes. Subjective Date of service: 05/05/21 Principal diagnosis: Acute kidney injury, rhabdomyolysis Interval history: Patient now with Gram negative rods in the blood and in the urine. BP stable but still on pressors. Sodium and Chloride very elevated. Tolerated lasix on yesterday and Cr is back to normal. Increased pHigh this am and PaO2 is now 60. Remainder is negative. Objective Vital Signs - 12hr 05/05/21 05/05/21 05/05/21 00:46 01:00 01:16 Temperature Pulse Rate 127 H 127 H 127 H Pulse Rate [ Anterior Bilateral] Respiratory 30 H 42 H 28 H Rate Respiratory Rate [Anterior Bilateral] Blood Pressure O2 Sat by Pulse 93 96 98 Oximetry 05/05/21 05/05/21 05/05/21 01:30 01:46 02:00 Temperature Pulse Rate 126 H 125 H 125 H Pulse Rate [ Anterior Bilateral] Respiratory 23 10 L 10 L Rate Respiratory Rate [Anterior Bilateral] Blood Pressure O2 Sat by Pulse 97 89 89 Oximetry 05/05/21 05/05/21 05/05/21 02:16 02:30 02:46 Temperature Pulse Rate 124 H 125 H 123 H Pulse Rate [ Anterior Bilateral] Respiratory 10 L 10 L 10 L Rate Respiratory Rate [Anterior Bilateral] Blood Pressure O2 Sat by Pulse 97 91 98 Oximetry 05/05/21 05/05/21 05/05/21 03:00 03:16 03:30 Temperature 97.8 F Pulse Rate 123 H 123 H 122 H Pulse Rate [ Anterior Bilateral] Respiratory 10 L 10 L 10 L Rate Respiratory Rate [Anterior Bilateral] Blood Pressure O2 Sat by Pulse 96 96 95 Oximetry 05/05/21 05/05/21 05/05/21 03:46 04:00 04:16 Temperature 97.8 F Pulse Rate 122 H 122 H 120 H Pulse Rate [ Anterior Bilateral] Respiratory 17 13 10 L Rate Respiratory Rate [Anterior Bilateral] Blood Pressure 140/65 144/75 O2 Sat by Pulse 100 94 100 Oximetry 05/05/21 05/05/21 05/05/21 04:30 04:45 05:00 Temperature Pulse Rate 121 H 122 H 123 H Pulse Rate [ Anterior Bilateral] Respiratory 10 L 10 L 10 L Rate Respiratory Rate [Anterior Bilateral] Blood Pressure 145/67 122/66 132/60 O2 Sat by Pulse 97 96 96 Oximetry 05/05/21 05/05/21 05/05/21 05:15 05:30 05:45 Temperature Pulse Rate 123 H 123 H 121 H Pulse Rate [ Anterior Bilateral] Respiratory 10 L 10 L 10 L Rate Respiratory Rate [Anterior Bilateral] Blood Pressure 127/65 130/62 123/64 O2 Sat by Pulse 96 95 94 Oximetry 05/05/21 05/05/21 05/05/21 06:00 06:15 06:30 Temperature Pulse Rate 121 H 122 H 121 H Pulse Rate [ Anterior Bilateral] Respiratory 10 L 10 L 10 L Rate Respiratory Rate [Anterior Bilateral] Blood Pressure 122/62 108/63 104/65 O2 Sat by Pulse 95 95 96 Oximetry 05/05/21 05/05/21 05/05/21 06:46 07:00 07:15 Temperature Pulse Rate 120 H 120 H 120 H Pulse Rate [ Anterior Bilateral] Respiratory 10 L 10 L 10 L Rate Respiratory Rate [Anterior Bilateral] Blood Pressure 102/69 104/65 115/66 O2 Sat by Pulse 95 95 Oximetry 05/05/21 05/05/21 05/05/21 07:30 07:45 08:00 Temperature 98.9 F Pulse Rate 120 H 120 H 119 H Pulse Rate [ Anterior Bilateral] Respiratory 10 L 10 L 10 L Rate Respiratory Rate [Anterior Bilateral] Blood Pressure 123/69 127/67 127/67 O2 Sat by Pulse 93 96 95 Oximetry 05/05/21 05/05/21 05/05/21 08:15 08:30 08:45 Temperature Pulse Rate 118 H 119 H 118 H Pulse Rate [ Anterior Bilateral] Respiratory 10 L 10 L 10 L Rate Respiratory Rate [Anterior Bilateral] Blood Pressure 131/70 141/68 130/69 O2 Sat by Pulse 95 93 94 Oximetry 05/05/21 05/05/21 05/05/21 09:00 09:09 09:15 Temperature Pulse Rate 118 H 115 H 113 H Pulse Rate [ Anterior Bilateral] Respiratory 10 L 10 L Rate Respiratory Rate [Anterior Bilateral] Blood Pressure 129/70 129/70 138/68 O2 Sat by Pulse 95 94 95 Oximetry 05/05/21 05/05/21 05/05/21 09:30 09:40 09:45 Temperature Pulse Rate 110 H 114 H Pulse Rate [ 117 H Anterior Bilateral] Respiratory 10 L 10 L Rate Respiratory 20 Rate [Anterior Bilateral] Blood Pressure 140/69 130/67 O2 Sat by Pulse 87 92 Oximetry 05/05/21 05/05/21 05/05/21 10:00 10:15 10:30 Temperature Pulse Rate 115 H 115 H 113 H Pulse Rate [ Anterior Bilateral] Respiratory 10 L 10 L 10 L Rate Respiratory Rate [Anterior Bilateral] Blood Pressure 130/62 126/62 124/64 O2 Sat by Pulse 94 94 95 Oximetry 05/05/21 05/05/21 05/05/21 10:45 11:00 12:21 Temperature Pulse Rate 116 H 116 H 113 H Pulse Rate [ Anterior Bilateral] Respiratory 10 L 10 L Rate Respiratory Rate [Anterior Bilateral] Blood Pressure 125/62 138/74 125/71 O2 Sat by Pulse 97 95 94 Oximetry Constitutional: no acute distress, other (Sedated) Ascultation: Bilateral: rales, rhonchi CBC and BMP: 05/05/21 04:58 05/05/21 04:58 ABG, PT/INR, D-dimer: ABG ABG pH 7.350 (7.320-7.450) 05/05/21 10:52 POC ABG pCO2 89.7 mmHg (32.0-48.0) H 05/05/21 10:52 ABG pCO2 46.0 mm Hg 04/22/21 17:30 POC ABG pO2 60.2 mmHg (83-108) L 05/05/21 10:52 ABG pO2 99.6 mm Hg (80.0-90.0) H 04/22/21 17:30 POC ABG HCO3 48.4 05/05/21 10:52 ABG O2 Saturation 88.4 (0-100) 05/05/21 10:52 PT/INR, D-dimer PT 13.2 Sec. (12.2-14.9) 04/22/21 00:32 INR 0.95 (0.87-1.13) 04/22/21 00:32 D-Dimer 1522.26 ng/mlDDU (0-234) H 04/21/21 16:30 Abnormal lab findings: Abnormal Labs 04/21/21 04/21/21 04/21/21 14:40 15:42 16:30 RBC Hgb Hct MCV RDW Lymph % (Auto) [place] % (Auto) Lymph # (Auto) Seg Neutrophils % Seg Neuts % (Manual) Lymphocytes % (Manual) Monocytes % (Manual) Nucleated RBC % Lymphocytes # (Manual) D-Dimer 1522.26 H Heparin Anti-Xa Level ABG pH POC ABG pCO2 POC ABG pO2 45.5 L 69.9 L ABG pO2 ABG Hemoglobin ABG Oxyhemoglobin 78.6 L 90.2 L ABG Sodium ABG Potassium ABG Chloride 111.0 H ABG Glucose 156 H 148 H Carboxyhemoglobin Sodium Potassium Chloride Carbon Dioxide BUN Creatinine Glucose POC Glucose Lactic Acid Calcium Phosphorus Magnesium AST ALT Total Creatine Kinase CK-MB (CK-2) Troponin T Total Protein Albumin Triglycerides Cholesterol LDL Cholesterol Direct HDL Cholesterol TSH Arterial Blood Glucose 156 H 148 H Arterial Blood Ionized Calcium 4.5 L Urine WBC (Auto) Urine Creatinine Urine Total Protein 04/21/21 04/21/21 04/22/21 16:32 16:32 00:32 RBC 5.22 H Hgb 16.2 H 14.8 H Hct 48.6 H 44.4 H MCV RDW 15.8 H Lymph % (Auto) [place] % (Auto) Lymph # (Auto) Seg Neutrophils % Seg Neuts % (Manual) 79.0 H Lymphocytes % (Manual) 13.0 L Monocytes % (Manual) 8.0 H Nucleated RBC % Lymphocytes # (Manual) 1.1 L D-Dimer Heparin Anti-Xa Level ABG pH POC ABG pCO2 POC ABG pO2 ABG pO2 ABG Hemoglobin ABG Oxyhemoglobin ABG Sodium ABG Potassium ABG Chloride ABG Glucose Carboxyhemoglobin Sodium Potassium Chloride Carbon Dioxide 21 L BUN 24 H Creatinine 1.3 H Glucose 130 H POC Glucose Lactic Acid Calcium Phosphorus Magnesium AST 129 H ALT 61 H Total Creatine Kinase 3055 H CK-MB (CK-2) 22.4 H Troponin T 0.055 H Total Protein Albumin 3.6 L Triglycerides 235 H Cholesterol 220 H LDL Cholesterol Direct 142 H HDL Cholesterol 36 L TSH Arterial Blood Glucose Arterial Blood Ionized Calcium Urine WBC (Auto) Urine Creatinine Urine Total Protein 07/04/22/21 04/22/21 03:27 05:29 05:29 RBC Hgb 15.4 H Hct 45.8 H MCV RDW 16.0 H Lymph % (Auto) 12.0 L [place] % (Auto) 8.0 H Lymph # (Auto) 1.1 L Seg Neutrophils % 76.3 H Seg Neuts % (Manual) Lymphocytes % (Manual) Monocytes % (Manual) Nucleated RBC % Lymphocytes # (Manual) D-Dimer Heparin Anti-Xa Level ABG pH POC ABG pCO2 POC ABG pO2 ABG pO2 ABG Hemoglobin ABG Oxyhemoglobin ABG Sodium ABG Potassium 4.7 H ABG Chloride 109.0 H ABG Glucose 155 H Carboxyhemoglobin 0.4 L Sodium Potassium 6.3 H* D Chloride Carbon Dioxide BUN 26 H Creatinine Glucose 134 H POC Glucose Lactic Acid Calcium Phosphorus Magnesium AST 123 H ALT Total Creatine Kinase CK-MB (CK-2) Troponin T Total Protein Albumin 3.6 L Triglycerides Cholesterol LDL Cholesterol Direct HDL Cholesterol TSH Arterial Blood Glucose 155 H Arterial Blood Ionized Calcium Urine WBC (Auto) Urine Creatinine Urine Total Protein 04/22/21 04/22/21 04/22/21 13:03 13:25 17:30 RBC Hgb Hct MCV RDW Lymph % (Auto) [place] % (Auto) Lymph # (Auto) Seg Neutrophils % Seg Neuts % (Manual) Lymphocytes % (Manual) Monocytes % (Manual) Nucleated RBC % Lymphocytes # (Manual) D-Dimer Heparin Anti-Xa Level ABG pH 7.343 L POC ABG pCO2 POC ABG pO2 ABG pO2 99.6 H ABG Hemoglobin ABG Oxyhemoglobin ABG Sodium ABG Potassium ABG Chloride ABG Glucose Carboxyhemoglobin Sodium Potassium Chloride Carbon Dioxide BUN Creatinine Glucose POC Glucose Lactic Acid Calcium Phosphorus Magnesium AST ALT Total Creatine Kinase 2322 H CK-MB (CK-2) Troponin T Total Protein Albumin Triglycerides Cholesterol LDL Cholesterol Direct HDL Cholesterol TSH Arterial Blood Glucose Arterial Blood Ionized Calcium Urine WBC (Auto) Urine Creatinine 138.9 H Urine Total Protein 86 H 04/22/21 04/23/21 04/23/21 20:00 04:42 09:53 RBC Hgb Hct MCV RDW Lymph % (Auto) [place] % (Auto) Lymph # (Auto) Seg Neutrophils % Seg Neuts % (Manual) Lymphocytes % (Manual) Monocytes % (Manual) Nucleated RBC % Lymphocytes # (Manual) D-Dimer Heparin Anti-Xa Level 2.00 H < 0.10 L ABG pH POC ABG pCO2 POC ABG pO2 ABG pO2 ABG Hemoglobin ABG Oxyhemoglobin 83.2 L ABG Sodium ABG Potassium ABG Chloride 113.0 H ABG Glucose 107 H Carboxyhemoglobin Sodium Potassium Chloride Carbon Dioxide BUN Creatinine Glucose POC Glucose Lactic Acid Calcium Phosphorus Magnesium AST ALT Total Creatine Kinase CK-MB (CK-2) Troponin T Total Protein Albumin Triglycerides Cholesterol LDL Cholesterol Direct HDL Cholesterol TSH Arterial Blood Glucose 107 H Arterial Blood Ionized Calcium Urine WBC (Auto) Urine Creatinine Urine Total Protein 04/23/21 04/23/21 04/23/21 14:21 14:21 15:11 RBC Hgb Hct MCV RDW 16.3 H Lymph % (Auto) [place] % (Auto) Lymph # (Auto) Seg Neutrophils % Seg Neuts % (Manual) Lymphocytes % (Manual) Monocytes % (Manual) Nucleated RBC % Lymphocytes # (Manual) D-Dimer Heparin Anti-Xa Level ABG pH POC ABG pCO2 POC ABG pO2 68.6 L ABG pO2 ABG Hemoglobin ABG Oxyhemoglobin 91.3 L ABG Sodium ABG Potassium ABG Chloride 113.0 H ABG Glucose 100 H Carboxyhemoglobin Sodium Potassium Chloride 113.1 H Carbon Dioxide 20 L BUN 18 H Creatinine Glucose POC Glucose Lactic Acid Calcium 8.2 L Phosphorus Magnesium AST 59 H ALT Total Creatine Kinase 681 H CK-MB (CK-2) Troponin T Total Protein 5.5 L Albumin 2.3 L Triglycerides Cholesterol LDL Cholesterol Direct HDL Cholesterol TSH Arterial Blood Glucose 100 H Arterial Blood Ionized Calcium Urine WBC (Auto) Urine Creatinine Urine Total Protein 04/23/21 04/24/21 04/24/21 18:30 04:00 05:37 RBC Hgb Hct MCV RDW Lymph % (Auto) [place] % (Auto) Lymph # (Auto) Seg Neutrophils % Seg Neuts % (Manual) Lymphocytes % (Manual) Monocytes % (Manual) Nucleated RBC % Lymphocytes # (Manual) D-Dimer Heparin Anti-Xa Level 1.84 H ABG pH POC ABG pCO2 POC ABG pO2 51.9 L ABG pO2 ABG Hemoglobin ABG Oxyhemoglobin 84.9 L ABG Sodium ABG Potassium ABG Chloride 112.0 H ABG Glucose 138 H Carboxyhemoglobin Sodium Potassium Chloride Carbon Dioxide BUN Creatinine Glucose POC Glucose 108 H Lactic Acid Calcium Phosphorus Magnesium AST ALT Total Creatine Kinase CK-MB (CK-2) Troponin T Total Protein Albumin Triglycerides Cholesterol LDL Cholesterol Direct HDL Cholesterol TSH Arterial Blood Glucose 138 H Arterial Blood Ionized Calcium Urine WBC (Auto) Urine Creatinine Urine Total Protein 04/24/21 04/24/21 04/24/21 10:00 10:00 10:14 RBC Hgb Hct MCV RDW 16.0 H Lymph % (Auto) [place] % (Auto) Lymph # (Auto) Seg Neutrophils % Seg Neuts % (Manual) Lymphocytes % (Manual) Monocytes % (Manual) Nucleated RBC % Lymphocytes # (Manual) D-Dimer Heparin Anti-Xa Level 0.84 H ABG pH POC ABG pCO2 POC ABG pO2 ABG pO2 ABG Hemoglobin ABG Oxyhemoglobin ABG Sodium ABG Potassium ABG Chloride ABG Glucose Carboxyhemoglobin Sodium Potassium Chloride 109.9 H Carbon Dioxide BUN Creatinine Glucose 118 H POC Glucose Lactic Acid Calcium Phosphorus 2.00 L Magnesium 2.40 H AST 59 H ALT Total Creatine Kinase 396 H CK-MB (CK-2) Troponin T Total Protein 5.5 L Albumin 2.4 L Triglycerides Cholesterol LDL Cholesterol Direct HDL Cholesterol TSH Arterial Blood Glucose Arterial Blood Ionized Calcium Urine WBC (Auto) Urine Creatinine Urine Total Protein 04/24/21 04/24/21 04/24/21 11:14 12:00 15:23 RBC Hgb Hct MCV RDW Lymph % (Auto) [place] % (Auto) Lymph # (Auto) Seg Neutrophils % Seg Neuts % (Manual) Lymphocytes % (Manual) Monocytes % (Manual) Nucleated RBC % Lymphocytes # (Manual) D-Dimer Heparin Anti-Xa Level ABG pH 7.287 L POC ABG pCO2 54.3 H POC ABG pO2 58.2 L 67.5 L ABG pO2 ABG Hemoglobin ABG Oxyhemoglobin 88.3 L 89.9 L ABG Sodium ABG Potassium ABG Chloride 111.0 H 110.0 H ABG Glucose 117 H 126 H Carboxyhemoglobin 0.3 L Sodium Potassium Chloride Carbon Dioxide BUN Creatinine Glucose POC Glucose 112 H Lactic Acid Calcium Phosphorus Magnesium AST ALT Total Creatine Kinase CK-MB (CK-2) Troponin T Total Protein Albumin Triglycerides Cholesterol LDL Cholesterol Direct HDL Cholesterol TSH Arterial Blood Glucose 117 H 126 H Arterial Blood Ionized Calcium Urine WBC (Auto) Urine Creatinine Urine Total Protein 04/24/21 04/24/21 04/24/21 17:58 18:00 22:56 RBC Hgb Hct MCV RDW Lymph % (Auto) [place] % (Auto) Lymph # (Auto) Seg Neutrophils % Seg Neuts % (Manual) Lymphocytes % (Manual) Monocytes % (Manual) Nucleated RBC % Lymphocytes # (Manual) D-Dimer Heparin Anti-Xa Level ABG pH POC ABG pCO2 POC ABG pO2 53.3 L ABG pO2 ABG Hemoglobin ABG Oxyhemoglobin 86.2 L ABG Sodium ABG Potassium ABG Chloride 111.0 H ABG Glucose 115 H Carboxyhemoglobin 0.4 L Sodium Potassium Chloride Carbon Dioxide BUN Creatinine Glucose POC Glucose 106 H 131 H Lactic Acid Calcium Phosphorus Magnesium AST ALT Total Creatine Kinase CK-MB (CK-2) Troponin T Total Protein Albumin Triglycerides Cholesterol LDL Cholesterol Direct HDL Cholesterol TSH Arterial Blood Glucose 115 H Arterial Blood Ionized Calcium Urine WBC (Auto) Urine Creatinine Urine Total Protein 04/25/21 04/25/21 04/25/21 04:00 07:42 10:50 RBC Hgb Hct MCV RDW Lymph % (Auto) [place] % (Auto) Lymph # (Auto) Seg Neutrophils % Seg Neuts % (Manual) Lymphocytes % (Manual) Monocytes % (Manual) Nucleated RBC % Lymphocytes # (Manual) D-Dimer Heparin Anti-Xa Level ABG pH POC ABG pCO2 POC ABG pO2 48.5 L 56.5 L ABG pO2 ABG Hemoglobin 10.6 L 10.4 L ABG Oxyhemoglobin 79.4 L 86.8 L ABG Sodium ABG Potassium ABG Chloride 111.0 H 112.0 H ABG Glucose 115 H 124 H Carboxyhemoglobin 0.2 L Sodium 146 H Potassium Chloride 111.3 H Carbon Dioxide BUN Creatinine Glucose 128 H POC Glucose Lactic Acid Calcium Phosphorus Magnesium AST ALT Total Creatine Kinase CK-MB (CK-2) Troponin T Total Protein Albumin Triglycerides Cholesterol LDL Cholesterol Direct HDL Cholesterol TSH Arterial Blood Glucose 115 H 124 H Arterial Blood Ionized Calcium Urine WBC (Auto) Urine Creatinine Urine Total Protein 04/25/21 04/25/21 04/25/21 11:12 13:55 16:05 RBC Hgb Hct MCV RDW Lymph % (Auto) [place] % (Auto) Lymph # (Auto) Seg Neutrophils % Seg Neuts % (Manual) Lymphocytes % (Manual) Monocytes % (Manual) Nucleated RBC % Lymphocytes # (Manual) D-Dimer Heparin Anti-Xa Level ABG pH POC ABG pCO2 POC ABG pO2 46.7 L 53.7 L ABG pO2 ABG Hemoglobin 10.7 L 11.1 L ABG Oxyhemoglobin 81.3 L 85.6 L ABG Sodium ABG Potassium ABG Chloride 111.0 H 111.0 H ABG Glucose 158 H 185 H Carboxyhemoglobin 0.4 L Sodium Potassium Chloride Carbon Dioxide BUN Creatinine Glucose POC Glucose 136 H Lactic Acid Calcium Phosphorus Magnesium AST ALT Total Creatine Kinase CK-MB (CK-2) Troponin T Total Protein Albumin Triglycerides Cholesterol LDL Cholesterol Direct HDL Cholesterol TSH Arterial Blood Glucose 158 H 185 H Arterial Blood Ionized Calcium Urine WBC (Auto) Urine Creatinine Urine Total Protein 04/25/21 04/25/21 04/26/21 17:39 23:18 05:06 RBC Hgb Hct MCV RDW Lymph % (Auto) [place] % (Auto) Lymph # (Auto) Seg Neutrophils % Seg Neuts % (Manual) Lymphocytes % (Manual) Monocytes % (Manual) Nucleated RBC % Lymphocytes # (Manual) D-Dimer Heparin Anti-Xa Level ABG pH POC ABG pCO2 POC ABG pO2 ABG pO2 ABG Hemoglobin ABG Oxyhemoglobin ABG Sodium ABG Potassium ABG Chloride ABG Glucose Carboxyhemoglobin Sodium Potassium Chloride Carbon Dioxide BUN Creatinine Glucose POC Glucose 155 H 158 H 134 H Lactic Acid Calcium Phosphorus Magnesium AST ALT Total Creatine Kinase CK-MB (CK-2) Troponin T Total Protein Albumin Triglycerides Cholesterol LDL Cholesterol Direct HDL Cholesterol TSH Arterial Blood Glucose Arterial Blood Ionized Calcium Urine WBC (Auto) Urine Creatinine Urine Total Protein 04/26/21 04/26/21 04/26/21 05:22 12:20 13:16 RBC Hgb Hct MCV RDW Lymph % (Auto) [place] % (Auto) Lymph # (Auto) Seg Neutrophils % Seg Neuts % (Manual) Lymphocytes % (Manual) Monocytes % (Manual) Nucleated RBC % Lymphocytes # (Manual) D-Dimer Heparin Anti-Xa Level ABG pH POC ABG pCO2 POC ABG pO2 52.2 L 53.9 L ABG pO2 ABG Hemoglobin 10.9 L 11.5 L ABG Oxyhemoglobin 86.5 L 86.4 L ABG Sodium 145.8 H ABG Potassium 4.6 H ABG Chloride 114.0 H 112.0 H ABG Glucose 144 H 162 H Carboxyhemoglobin 0.4 L 0.4 L Sodium Potassium Chloride Carbon Dioxide BUN Creatinine Glucose POC Glucose 160 H Lactic Acid Calcium Phosphorus Magnesium AST ALT Total Creatine Kinase CK-MB (CK-2) Troponin T Total Protein Albumin Triglycerides Cholesterol LDL Cholesterol Direct HDL Cholesterol TSH Arterial Blood Glucose 144 H 162 H Arterial Blood Ionized Calcium Urine WBC (Auto) Urine Creatinine Urine Total Protein 04/26/21 04/26/21 04/26/21 14:09 18:42 23:30 RBC Hgb Hct MCV RDW Lymph % (Auto) [place] % (Auto) Lymph # (Auto) Seg Neutrophils % Seg Neuts % (Manual) Lymphocytes % (Manual) Monocytes % (Manual) Nucleated RBC % Lymphocytes # (Manual) D-Dimer Heparin Anti-Xa Level ABG pH POC ABG pCO2 POC ABG pO2 55.3 L ABG pO2 ABG Hemoglobin 11.6 L ABG Oxyhemoglobin 87.2 L ABG Sodium 146.6 H ABG Potassium ABG Chloride 111.0 H ABG Glucose 165 H Carboxyhemoglobin Sodium Potassium Chloride Carbon Dioxide BUN Creatinine Glucose POC Glucose 161 H 163 H Lactic Acid Calcium Phosphorus Magnesium AST ALT Total Creatine Kinase CK-MB (CK-2) Troponin T Total Protein Albumin Triglycerides Cholesterol LDL Cholesterol Direct HDL Cholesterol TSH Arterial Blood Glucose 165 H Arterial Blood Ionized Calcium Urine WBC (Auto) Urine Creatinine Urine Total Protein 04/27/21 04/27/21 04/27/21 03:51 05:14 06:25 RBC 3.64 L Hgb Hct MCV RDW 16.2 H Lymph % (Auto) [place] % (Auto) Lymph # (Auto) Seg Neutrophils % Seg Neuts % (Manual) Lymphocytes % (Manual) Monocytes % (Manual) Nucleated RBC % Lymphocytes # (Manual) D-Dimer Heparin Anti-Xa Level ABG pH POC ABG pCO2 52.9 H POC ABG pO2 60.8 L ABG pO2 ABG Hemoglobin 11.9 L ABG Oxyhemoglobin 87.9 L ABG Sodium 147.8 H ABG Potassium ABG Chloride 111.0 H ABG Glucose 183 H Carboxyhemoglobin Sodium Potassium Chloride Carbon Dioxide BUN Creatinine Glucose POC Glucose 165 H Lactic Acid Calcium Phosphorus Magnesium AST ALT Total Creatine Kinase CK-MB (CK-2) Troponin T Total Protein Albumin Triglycerides Cholesterol LDL Cholesterol Direct HDL Cholesterol TSH Arterial Blood Glucose 183 H Arterial Blood Ionized Calcium Urine WBC (Auto) Urine Creatinine Urine Total Protein 04/27/21 04/27/21 04/27/21 06:25 11:45 17:41 RBC Hgb Hct MCV RDW Lymph % (Auto) [place] % (Auto) Lymph # (Auto) Seg Neutrophils % Seg Neuts % (Manual) Lymphocytes % (Manual) Monocytes % (Manual) Nucleated RBC % Lymphocytes # (Manual) D-Dimer Heparin Anti-Xa Level ABG pH POC ABG pCO2 POC ABG pO2 ABG pO2 ABG Hemoglobin ABG Oxyhemoglobin ABG Sodium ABG Potassium ABG Chloride ABG Glucose Carboxyhemoglobin Sodium 148 H Potassium 5.1 H D Chloride 109.0 H Carbon Dioxide BUN 35 H Creatinine Glucose 170 H POC Glucose 184 H 172 H Lactic Acid Calcium Phosphorus Magnesium AST 48 H ALT Total Creatine Kinase CK-MB (CK-2) Troponin T Total Protein Albumin 2.4 L Triglycerides Cholesterol LDL Cholesterol Direct HDL Cholesterol TSH Arterial Blood Glucose Arterial Blood Ionized Calcium Urine WBC (Auto) Urine Creatinine Urine Total Protein 04/27/21 04/28/21 04/28/21 23:16 03:23 04:00 RBC Hgb Hct MCV RDW Lymph % (Auto) [place] % (Auto) Lymph # (Auto) Seg Neutrophils % Seg Neuts % (Manual) Lymphocytes % (Manual) Monocytes % (Manual) Nucleated RBC % Lymphocytes # (Manual) D-Dimer Heparin Anti-Xa Level ABG pH POC ABG pCO2 55.9 H POC ABG pO2 76.2 L ABG pO2 ABG Hemoglobin 11.5 L ABG Oxyhemoglobin 92.9 L ABG Sodium 153.3 H ABG Potassium 3.2 L ABG Chloride 115.0 H ABG Glucose 154 H Carboxyhemoglobin Sodium 154 H Potassium 3.5 L D Chloride 114.4 H Carbon Dioxide 31 H BUN 32 H Creatinine Glucose 148 H POC Glucose 142 H Lactic Acid Calcium Phosphorus Magnesium AST ALT Total Creatine Kinase CK-MB (CK-2) Troponin T Total Protein 6.0 L Albumin 2.4 L Triglycerides Cholesterol LDL Cholesterol Direct HDL Cholesterol TSH Arterial Blood Glucose 154 H Arterial Blood Ionized Calcium Urine WBC (Auto) Urine Creatinine Urine Total Protein 04/28/21 04/28/21 04/28/21 04:45 06:05 11:57 RBC Hgb Hct MCV RDW 16.1 H Lymph % (Auto) [place] % (Auto) Lymph # (Auto) Seg Neutrophils % Seg Neuts % (Manual) Lymphocytes % (Manual) Monocytes % (Manual) Nucleated RBC % Lymphocytes # (Manual) D-Dimer Heparin Anti-Xa Level ABG pH POC ABG pCO2 POC ABG pO2 ABG pO2 ABG Hemoglobin ABG Oxyhemoglobin ABG Sodium ABG Potassium ABG Chloride ABG Glucose Carboxyhemoglobin Sodium Potassium Chloride Carbon Dioxide BUN Creatinine Glucose POC Glucose 153 H 109 H Lactic Acid Calcium Phosphorus Magnesium AST ALT Total Creatine Kinase CK-MB (CK-2) Troponin T Total Protein Albumin Triglycerides Cholesterol LDL Cholesterol Direct HDL Cholesterol TSH Arterial Blood Glucose Arterial Blood Ionized Calcium Urine WBC (Auto) Urine Creatinine Urine Total Protein 04/28/21 04/28/21 04/29/21 17:39 23:58 03:51 RBC Hgb Hct MCV RDW Lymph % (Auto) [place] % (Auto) Lymph # (Auto) Seg Neutrophils % Seg Neuts % (Manual) Lymphocytes % (Manual) Monocytes % (Manual) Nucleated RBC % Lymphocytes # (Manual) D-Dimer Heparin Anti-Xa Level ABG pH POC ABG pCO2 54.7 H POC ABG pO2 68.6 L ABG pO2 ABG Hemoglobin 11.9 L ABG Oxyhemoglobin 91.7 L ABG Sodium 148.2 H ABG Potassium ABG Chloride 112.0 H ABG Glucose 136 H Carboxyhemoglobin Sodium Potassium Chloride Carbon Dioxide BUN Creatinine Glucose POC Glucose 145 H 164 H Lactic Acid Calcium Phosphorus Magnesium AST ALT Total Creatine Kinase CK-MB (CK-2) Troponin T Total Protein Albumin Triglycerides Cholesterol LDL Cholesterol Direct HDL Cholesterol TSH Arterial Blood Glucose 136 H Arterial Blood Ionized Calcium Urine WBC (Auto) Urine Creatinine Urine Total Protein 04/29/21 04/29/21 04/29/21 05:35 05:55 11:29 RBC Hgb Hct MCV RDW Lymph % (Auto) [place] % (Auto) Lymph # (Auto) Seg Neutrophils % Seg Neuts % (Manual) Lymphocytes % (Manual) Monocytes % (Manual) Nucleated RBC % Lymphocytes # (Manual) D-Dimer Heparin Anti-Xa Level ABG pH POC ABG pCO2 POC ABG pO2 ABG pO2 ABG Hemoglobin ABG Oxyhemoglobin ABG Sodium ABG Potassium ABG Chloride ABG Glucose Carboxyhemoglobin Sodium 149 H Potassium Chloride 110.9 H Carbon Dioxide BUN 34 H Creatinine Glucose 136 H POC Glucose 128 H 206 H Lactic Acid Calcium Phosphorus Magnesium AST ALT Total Creatine Kinase CK-MB (CK-2) Troponin T Total Protein Albumin Triglycerides Cholesterol LDL Cholesterol Direct HDL Cholesterol TSH Arterial Blood Glucose Arterial Blood Ionized Calcium Urine WBC (Auto) Urine Creatinine Urine Total Protein 04/29/21 04/29/2121 18:04 23:42 00:55 RBC Hgb Hct MCV RDW Lymph % (Auto) [place] % (Auto) Lymph # (Auto) Seg Neutrophils % Seg Neuts % (Manual) Lymphocytes % (Manual) Monocytes % (Manual) Nucleated RBC % Lymphocytes # (Manual) D-Dimer Heparin Anti-Xa Level ABG pH POC ABG pCO2 POC ABG pO2 ABG pO2 ABG Hemoglobin ABG Oxyhemoglobin ABG Sodium ABG Potassium ABG Chloride ABG Glucose Carboxyhemoglobin Sodium Potassium 5.1 H D Chloride Carbon Dioxide BUN Creatinine Glucose POC Glucose 146 H 146 H Lactic Acid Calcium Phosphorus Magnesium AST ALT Total Creatine Kinase CK-MB (CK-2) Troponin T Total Protein Albumin Triglycerides Cholesterol LDL Cholesterol Direct HDL Cholesterol TSH Arterial Blood Glucose Arterial Blood Ionized Calcium Urine WBC (Auto) Urine Creatinine Urine Total Protein 04/30/21 04/30/21 04/30/21 05:00 05:34 07:40 RBC Hgb Hct MCV RDW Lymph % (Auto) [place] % (Auto) Lymph # (Auto) Seg Neutrophils % Seg Neuts % (Manual) Lymphocytes % (Manual) Monocytes % (Manual) Nucleated RBC % Lymphocytes # (Manual) D-Dimer Heparin Anti-Xa Level ABG pH POC ABG pCO2 55.6 H POC ABG pO2 62.4 L ABG pO2 ABG Hemoglobin ABG Oxyhemoglobin 90.1 L ABG Sodium 146.8 H ABG Potassium ABG Chloride 109.0 H ABG Glucose 124 H Carboxyhemoglobin Sodium 149 H Potassium Chloride 109.5 H Carbon Dioxide 35 H BUN 33 H Creatinine Glucose 126 H POC Glucose 122 H Lactic Acid Calcium Phosphorus Magnesium 2.60 H AST ALT Total Creatine Kinase CK-MB (CK-2) Troponin T Total Protein 5.8 L Albumin 2.2 L Triglycerides 332 H Cholesterol LDL Cholesterol Direct HDL Cholesterol TSH Arterial Blood Glucose 124 H Arterial Blood Ionized Calcium Urine WBC (Auto) Urine Creatinine Urine Total Protein 04/30/21 04/30/21 04/30/21 07:40 11:12 17:00 RBC Hgb Hct MCV RDW 16.3 H Lymph % (Auto) [place] % (Auto) Lymph # (Auto) Seg Neutrophils % 88.4 H Seg Neuts % (Manual) 82.0 H Lymphocytes % (Manual) 5.0 L Monocytes % (Manual) Nucleated RBC % Lymphocytes # (Manual) 0.4 L D-Dimer Heparin Anti-Xa Level ABG pH POC ABG pCO2 POC ABG pO2 ABG pO2 ABG Hemoglobin ABG Oxyhemoglobin ABG Sodium ABG Potassium ABG Chloride ABG Glucose Carboxyhemoglobin Sodium Potassium Chloride Carbon Dioxide BUN Creatinine Glucose POC Glucose 127 H Lactic Acid Calcium Phosphorus Magnesium AST ALT Total Creatine Kinase CK-MB (CK-2) Troponin T Total Protein Albumin Triglycerides 304 H Cholesterol LDL Cholesterol Direct HDL Cholesterol TSH Arterial Blood Glucose Arterial Blood Ionized Calcium Urine WBC (Auto) Urine Creatinine Urine Total Protein 04/30/21 04/30/21 05/01/21 18:17 23:25 03:33 RBC Hgb Hct MCV RDW Lymph % (Auto) [place] % (Auto) Lymph # (Auto) Seg Neutrophils % Seg Neuts % (Manual) Lymphocytes % (Manual) Monocytes % (Manual) Nucleated RBC % Lymphocytes # (Manual) D-Dimer Heparin Anti-Xa Level ABG pH 7.275 L POC ABG pCO2 85.0 H POC ABG pO2 ABG pO2 ABG Hemoglobin ABG Oxyhemoglobin ABG Sodium ABG Potassium 5.0 H ABG Chloride ABG Glucose 150 H Carboxyhemoglobin Sodium Potassium Chloride Carbon Dioxide BUN Creatinine Glucose POC Glucose 151 H 143 H Lactic Acid Calcium Phosphorus Magnesium AST ALT Total Creatine Kinase CK-MB (CK-2) Troponin T Total Protein Albumin Triglycerides Cholesterol LDL Cholesterol Direct HDL Cholesterol TSH Arterial Blood Glucose 150 H Arterial Blood Ionized Calcium Urine WBC (Auto) Urine Creatinine Urine Total Protein 05/01/21 05/01/21 05/01/21 04:55 05:08 05:08 RBC Hgb Hct MCV RDW 16.7 H Lymph % (Auto) [place] % (Auto) Lymph # (Auto) Seg Neutrophils % Seg Neuts % (Manual) Lymphocytes % (Manual) Monocytes % (Manual) Nucleated RBC % Lymphocytes # (Manual) D-Dimer Heparin Anti-Xa Level ABG pH POC ABG pCO2 POC ABG pO2 ABG pO2 ABG Hemoglobin ABG Oxyhemoglobin ABG Sodium ABG Potassium ABG Chloride ABG Glucose Carboxyhemoglobin Sodium Potassium 5.3 H D Chloride Carbon Dioxide 36 H BUN 39 H Creatinine Glucose 150 H POC Glucose 138 H Lactic Acid Calcium Phosphorus Magnesium AST ALT Total Creatine Kinase CK-MB (CK-2) Troponin T Total Protein Albumin Triglycerides Cholesterol LDL Cholesterol Direct HDL Cholesterol TSH Arterial Blood Glucose Arterial Blood Ionized Calcium Urine WBC (Auto) Urine Creatinine Urine Total Protein 05/01/21 05/01/21 05/01/21 11:46 14:30 17:08 RBC Hgb Hct MCV RDW Lymph % (Auto) [place] % (Auto) Lymph # (Auto) Seg Neutrophils % Seg Neuts % (Manual) Lymphocytes % (Manual) Monocytes % (Manual) Nucleated RBC % Lymphocytes # (Manual) D-Dimer Heparin Anti-Xa Level ABG pH POC ABG pCO2 POC ABG pO2 ABG pO2 ABG Hemoglobin ABG Oxyhemoglobin ABG Sodium ABG Potassium ABG Chloride ABG Glucose Carboxyhemoglobin Sodium Potassium Chloride Carbon Dioxide BUN Creatinine Glucose POC Glucose 159 H 206 H Lactic Acid Calcium Phosphorus Magnesium 2.60 H AST ALT Total Creatine Kinase CK-MB (CK-2) Troponin T Total Protein Albumin Triglycerides Cholesterol LDL Cholesterol Direct HDL Cholesterol TSH Arterial Blood Glucose Arterial Blood Ionized Calcium Urine WBC (Auto) Urine Creatinine Urine Total Protein 05/01/21 05/02/21 05/02/21 23:21 04:00 05:32 RBC Hgb Hct MCV RDW Lymph % (Auto) [place] % (Auto) Lymph # (Auto) Seg Neutrophils % Seg Neuts % (Manual) Lymphocytes % (Manual) Monocytes % (Manual) Nucleated RBC % Lymphocytes # (Manual) D-Dimer Heparin Anti-Xa Level ABG pH 7.213 L POC ABG pCO2 123.0 H POC ABG pO2 69.9 L ABG pO2 ABG Hemoglobin ABG Oxyhemoglobin 90.0 L ABG Sodium 148.1 H ABG Potassium 5.2 H ABG Chloride ABG Glucose 205 H Carboxyhemoglobin 1.9 H Sodium Potassium Chloride Carbon Dioxide BUN Creatinine Glucose POC Glucose 176 H 184 H Lactic Acid Calcium Phosphorus Magnesium AST ALT Total Creatine Kinase CK-MB (CK-2) Troponin T Total Protein Albumin Triglycerides Cholesterol LDL Cholesterol Direct HDL Cholesterol TSH Arterial Blood Glucose 205 H Arterial Blood Ionized Calcium Urine WBC (Auto) Urine Creatinine Urine Total Protein 05/02/21 05/02/21 05/02/21 06:57 06:57 08:00 RBC Hgb Hct MCV RDW 17.5 H Lymph % (Auto) [place] % (Auto) Lymph # (Auto) Seg Neutrophils % Seg Neuts % (Manual) 84.0 H Lymphocytes % (Manual) 6.0 L Monocytes % (Manual) Nucleated RBC % 1.0 H Lymphocytes # (Manual) 0.6 L D-Dimer Heparin Anti-Xa Level ABG pH 7.267 L POC ABG pCO2 102.9 H POC ABG pO2 81.4 L ABG pO2 ABG Hemoglobin ABG Oxyhemoglobin 93.6 L ABG Sodium 148.0 H ABG Potassium 5.4 H ABG Chloride ABG Glucose 249 H Carboxyhemoglobin Sodium 148 H Potassium 5.6 H Chloride Carbon Dioxide 40 H BUN 36 H Creatinine Glucose 227 H POC Glucose Lactic Acid Calcium Phosphorus 2.20 L Magnesium 2.80 H AST 41 H ALT Total Creatine Kinase CK-MB (CK-2) Troponin T Total Protein Albumin 2.7 L Triglycerides Cholesterol LDL Cholesterol Direct HDL Cholesterol TSH Arterial Blood Glucose 249 H Arterial Blood Ionized Calcium Urine WBC (Auto) Urine Creatinine Urine Total Protein 05/02/21 05/02/21 05/02/21 10:52 11:58 15:15 RBC Hgb Hct MCV RDW Lymph % (Auto) [place] % (Auto) Lymph # (Auto) Seg Neutrophils % Seg Neuts % (Manual) Lymphocytes % (Manual) Monocytes % (Manual) Nucleated RBC % Lymphocytes # (Manual) D-Dimer Heparin Anti-Xa Level ABG pH 7.260 L POC ABG pCO2 99.9 H POC ABG pO2 74.9 L ABG pO2 ABG Hemoglobin ABG Oxyhemoglobin 92.1 L ABG Sodium 146.4 H ABG Potassium 5.7 H ABG Chloride ABG Glucose 266 H Carboxyhemoglobin Sodium 152 H Potassium 5.4 H Chloride Carbon Dioxide 41 H* BUN 47 H Creatinine Glucose 269 H POC Glucose 268 H Lactic Acid Calcium Phosphorus Magnesium 2.80 H AST ALT Total Creatine Kinase CK-MB (CK-2) Troponin T Total Protein Albumin Triglycerides Cholesterol LDL Cholesterol Direct HDL Cholesterol TSH Arterial Blood Glucose 266 H Arterial Blood Ionized Calcium Urine WBC (Auto) Urine Creatinine Urine Total Protein 05/02/21 05/03/21 05/03/21 18:05 00:06 03:45 RBC Hgb Hct MCV 98 H RDW 17.1 H Lymph % (Auto) [place] % (Auto) Lymph # (Auto) Seg Neutrophils % Seg Neuts % (Manual) Lymphocytes % (Manual) 9.0 L Monocytes % (Manual) Nucleated RBC % 6.0 H Lymphocytes # (Manual) 0.8 L D-Dimer Heparin Anti-Xa Level ABG pH POC ABG pCO2 POC ABG pO2 ABG pO2 ABG Hemoglobin ABG Oxyhemoglobin ABG Sodium ABG Potassium ABG Chloride ABG Glucose Carboxyhemoglobin Sodium Potassium Chloride Carbon Dioxide BUN Creatinine Glucose POC Glucose 225 H 230 H Lactic Acid Calcium Phosphorus Magnesium AST ALT Total Creatine Kinase CK-MB (CK-2) Troponin T Total Protein Albumin Triglycerides Cholesterol LDL Cholesterol Direct HDL Cholesterol TSH Arterial Blood Glucose Arterial Blood Ionized Calcium Urine WBC (Auto) Urine Creatinine Urine Total Protein 05/03/21 05/03/21 05/03/21 03:45 04:00 05:29 RBC Hgb Hct MCV RDW Lymph % (Auto) [place] % (Auto) Lymph # (Auto) Seg Neutrophils % Seg Neuts % (Manual) Lymphocytes % (Manual) Monocytes % (Manual) Nucleated RBC % Lymphocytes # (Manual) D-Dimer Heparin Anti-Xa Level ABG pH 7.237 L POC ABG pCO2 99.9 H POC ABG pO2 74.8 L ABG pO2 ABG Hemoglobin 11.9 L ABG Oxyhemoglobin 91.9 L ABG Sodium 147.0 H ABG Potassium 5.2 H ABG Chloride ABG Glucose 196 H Carboxyhemoglobin Sodium 151 H Potassium 5.7 H Chloride Carbon Dioxide 40 H BUN 68 H Creatinine 1.8 H D Glucose 200 H POC Glucose 200 H Lactic Acid Calcium Phosphorus Magnesium 3.10 H AST 42 H ALT Total Creatine Kinase CK-MB (CK-2) Troponin T Total Protein Albumin 2.4 L Triglycerides Cholesterol LDL Cholesterol Direct HDL Cholesterol TSH Arterial Blood Glucose 196 H Arterial Blood Ionized Calcium Urine WBC (Auto) Urine Creatinine Urine Total Protein 05/03/21 05/03/21 05/03/21 06:05 10:21 11:36 RBC Hgb Hct MCV RDW Lymph % (Auto) [place] % (Auto) Lymph # (Auto) Seg Neutrophils % Seg Neuts % (Manual) Lymphocytes % (Manual) Monocytes % (Manual) Nucleated RBC % Lymphocytes # (Manual) D-Dimer Heparin Anti-Xa Level ABG pH POC ABG pCO2 POC ABG pO2 ABG pO2 ABG Hemoglobin ABG Oxyhemoglobin ABG Sodium ABG Potassium ABG Chloride ABG Glucose Carboxyhemoglobin Sodium Potassium Chloride Carbon Dioxide BUN Creatinine Glucose POC Glucose 197 H Lactic Acid 2.20 H* Calcium Phosphorus Magnesium AST ALT Total Creatine Kinase CK-MB (CK-2) Troponin T Total Protein Albumin Triglycerides Cholesterol LDL Cholesterol Direct HDL Cholesterol TSH 0.051 L Arterial Blood Glucose Arterial Blood Ionized Calcium Urine WBC (Auto) Urine Creatinine Urine Total Protein 05/03/21 05/03/21 05/03/21 15:00 15:27 16:10 RBC Hgb Hct MCV RDW Lymph % (Auto) [place] % (Auto) Lymph # (Auto) Seg Neutrophils % Seg Neuts % (Manual) Lymphocytes % (Manual) Monocytes % (Manual) Nucleated RBC % Lymphocytes # (Manual) D-Dimer Heparin Anti-Xa Level ABG pH 7.184 L POC ABG pCO2 120.0 H POC ABG pO2 46.4 L ABG pO2 ABG Hemoglobin 10.4 L ABG Oxyhemoglobin 75.7 L ABG Sodium 148.9 H ABG Potassium ABG Chloride ABG Glucose 157 H Carboxyhemoglobin Sodium 151 H Potassium Chloride Carbon Dioxide 36 H BUN 73 H Creatinine 1.9 H Glucose 155 H POC Glucose Lactic Acid Calcium 10.3 H Phosphorus Magnesium 3.00 H AST ALT Total Creatine Kinase CK-MB (CK-2) Troponin T Total Protein Albumin Triglycerides Cholesterol LDL Cholesterol Direct HDL Cholesterol TSH Arterial Blood Glucose 157 H Arterial Blood Ionized Calcium Urine WBC (Auto) 43.0 H Urine Creatinine Urine Total Protein 05/03/21 05/03/21 05/03/21 16:10 18:03 20:00 RBC Hgb Hct MCV RDW Lymph % (Auto) [place] % (Auto) Lymph # (Auto) Seg Neutrophils % Seg Neuts % (Manual) Lymphocytes % (Manual) Monocytes % (Manual) Nucleated RBC % Lymphocytes # (Manual) D-Dimer Heparin Anti-Xa Level ABG pH POC ABG pCO2 82.8 H POC ABG pO2 46.6 L ABG pO2 ABG Hemoglobin 10.4 L ABG Oxyhemoglobin 81.7 L ABG Sodium 154.9 H ABG Potassium 5.5 H ABG Chloride ABG Glucose 152 H Carboxyhemoglobin Sodium Potassium Chloride Carbon Dioxide BUN Creatinine Glucose POC Glucose 108 H Lactic Acid Calcium Phosphorus Magnesium AST ALT Total Creatine Kinase CK-MB (CK-2) Troponin T Total Protein Albumin Triglycerides Cholesterol LDL Cholesterol Direct HDL Cholesterol TSH Arterial Blood Glucose 152 H Arterial Blood Ionized Calcium Urine WBC (Auto) Urine Creatinine 65.6 H Urine Total Protein 05/03/21 05/03/21 05/04/21 22:13 23:17 03:39 RBC Hgb Hct MCV RDW Lymph % (Auto) [place] % (Auto) Lymph # (Auto) Seg Neutrophils % Seg Neuts % (Manual) Lymphocytes % (Manual) Monocytes % (Manual) Nucleated RBC % Lymphocytes # (Manual) D-Dimer Heparin Anti-Xa Level ABG pH POC ABG pCO2 94.7 H 88.0 H POC ABG pO2 51.1 L 52.6 L ABG pO2 ABG Hemoglobin 10.6 L 10.3 L ABG Oxyhemoglobin 83.7 L 84.7 L ABG Sodium 156.1 H 157.7 H ABG Potassium 5.6 H 5.2 H ABG Chloride ABG Glucose 181 H 221 H Carboxyhemoglobin Sodium Potassium Chloride Carbon Dioxide BUN Creatinine Glucose POC Glucose 165 H Lactic Acid Calcium Phosphorus Magnesium AST ALT Total Creatine Kinase CK-MB (CK-2) Troponin T Total Protein Albumin Triglycerides Cholesterol LDL Cholesterol Direct HDL Cholesterol TSH Arterial Blood Glucose 181 H 221 H Arterial Blood Ionized Calcium Urine WBC (Auto) Urine Creatinine Urine Total Protein 05/04/21 05/04/21 05/04/21 05:27 07:11 07:11 RBC 3.12 L Hgb 9.5 L Hct 29.8 L D MCV RDW 16.6 H Lymph % (Auto) [place] % (Auto) Lymph # (Auto) Seg Neutrophils % Seg Neuts % (Manual) Lymphocytes % (Manual) Monocytes % (Manual) Nucleated RBC % Lymphocytes # (Manual) D-Dimer Heparin Anti-Xa Level ABG pH POC ABG pCO2 POC ABG pO2 ABG pO2 ABG Hemoglobin ABG Oxyhemoglobin ABG Sodium ABG Potassium ABG Chloride ABG Glucose Carboxyhemoglobin Sodium 160 H D Potassium 5.4 H Chloride 109.9 H Carbon Dioxide 45 H* D BUN 75 H Creatinine 1.5 H Glucose 223 H POC Glucose 193 H Lactic Acid Calcium Phosphorus Magnesium 3.10 H AST 44 H ALT Total Creatine Kinase CK-MB (CK-2) Troponin T Total Protein 5.7 L Albumin 2.2 L Triglycerides Cholesterol LDL Cholesterol Direct HDL Cholesterol TSH Arterial Blood Glucose Arterial Blood Ionized Calcium Urine WBC (Auto) Urine Creatinine Urine Total Protein 05/04/21 05/04/21 05/04/21 07:11 11:32 13:27 RBC Hgb Hct MCV RDW Lymph % (Auto) [place] % (Auto) Lymph # (Auto) Seg Neutrophils % Seg Neuts % (Manual) Lymphocytes % (Manual) Monocytes % (Manual) Nucleated RBC % Lymphocytes # (Manual) D-Dimer Heparin Anti-Xa Level ABG pH POC ABG pCO2 POC ABG pO2 ABG pO2 ABG Hemoglobin ABG Oxyhemoglobin ABG Sodium ABG Potassium ABG Chloride ABG Glucose Carboxyhemoglobin Sodium Potassium Chloride Carbon Dioxide BUN Creatinine Glucose POC Glucose 276 H Lactic Acid 3.00 H* 3.00 H* Calcium Phosphorus Magnesium AST ALT Total Creatine Kinase CK-MB (CK-2) Troponin T Total Protein Albumin Triglycerides Cholesterol LDL Cholesterol Direct HDL Cholesterol TSH Arterial Blood Glucose Arterial Blood Ionized Calcium Urine WBC (Auto) Urine Creatinine Urine Total Protein 05/04/21 05/04/21 05/04/21 13:27 13:53 16:25 RBC Hgb Hct MCV RDW Lymph % (Auto) [place] % (Auto) Lymph # (Auto) Seg Neutrophils % Seg Neuts % (Manual) Lymphocytes % (Manual) Monocytes % (Manual) Nucleated RBC % Lymphocytes # (Manual) D-Dimer Heparin Anti-Xa Level ABG pH 7.275 L POC ABG pCO2 117.3 H 80.8 H POC ABG pO2 69.8 L 55.2 L ABG pO2 ABG Hemoglobin 9.5 L 8.6 L ABG Oxyhemoglobin 89.6 L 86.0 L ABG Sodium 156.2 H 155.9 H ABG Potassium ABG Chloride ABG Glucose 263 H 230 H Carboxyhemoglobin 1.6 H Sodium Potassium Chloride Carbon Dioxide BUN Creatinine Glucose POC Glucose Lactic Acid Calcium Phosphorus Magnesium 3.00 H AST ALT Total Creatine Kinase CK-MB (CK-2) Troponin T Total Protein Albumin Triglycerides Cholesterol LDL Cholesterol Direct HDL Cholesterol TSH Arterial Blood Glucose 263 H 230 H Arterial Blood Ionized Calcium 4.5 L Urine WBC (Auto) Urine Creatinine Urine Total Protein 05/04/21 05/04/21 05/04/21 17:28 22:00 22:00 RBC Hgb Hct MCV RDW Lymph % (Auto) [place] % (Auto) Lymph # (Auto) Seg Neutrophils % Seg Neuts % (Manual) Lymphocytes % (Manual) Monocytes % (Manual) Nucleated RBC % Lymphocytes # (Manual) D-Dimer Heparin Anti-Xa Level ABG pH POC ABG pCO2 87.2 H POC ABG pO2 60.7 L ABG pO2 ABG Hemoglobin 8.9 L ABG Oxyhemoglobin 87.8 L ABG Sodium 155.8 H ABG Potassium 4.6 H ABG Chloride ABG Glucose 194 H Carboxyhemoglobin Sodium 159 H Potassium Chloride 110.3 H Carbon Dioxide 44 H* BUN 70 H Creatinine 1.4 H Glucose 200 H POC Glucose 202 H Lactic Acid Calcium Phosphorus Magnesium AST ALT Total Creatine Kinase CK-MB (CK-2) Troponin T Total Protein Albumin Triglycerides Cholesterol LDL Cholesterol Direct HDL Cholesterol TSH Arterial Blood Glucose 194 H Arterial Blood Ionized Calcium Urine WBC (Auto) Urine Creatinine Urine Total Protein 05/04/21 05/05/21 05/05/21 23:12 04:58 04:58 RBC 2.78 L Hgb 8.6 L Hct 27.1 L MCV RDW 17.0 H Lymph % (Auto) [place] % (Auto) Lymph # (Auto) Seg Neutrophils % Seg Neuts % (Manual) Lymphocytes % (Manual) Monocytes % (Manual) Nucleated RBC % Lymphocytes # (Manual) D-Dimer Heparin Anti-Xa Level ABG pH POC ABG pCO2 POC ABG pO2 ABG pO2 ABG Hemoglobin ABG Oxyhemoglobin ABG Sodium ABG Potassium ABG Chloride ABG Glucose Carboxyhemoglobin Sodium 161 H* Potassium Chloride 112.6 H Carbon Dioxide 46 H* BUN 67 H Creatinine Glucose 188 H POC Glucose 196 H Lactic Acid Calcium Phosphorus Magnesium 3.00 H AST ALT Total Creatine Kinase CK-MB (CK-2) Troponin T Total Protein Albumin Triglycerides Cholesterol LDL Cholesterol Direct HDL Cholesterol TSH Arterial Blood Glucose Arterial Blood Ionized Calcium Urine WBC (Auto) Urine Creatinine Urine Total Protein 05/05/21 05/05/21 05/05/21 05:11 10:52 11:55 RBC Hgb Hct MCV RDW Lymph % (Auto) [place] % (Auto) Lymph # (Auto) Seg Neutrophils % Seg Neuts % (Manual) Lymphocytes % (Manual) Monocytes % (Manual) Nucleated RBC % Lymphocytes # (Manual) D-Dimer Heparin Anti-Xa Level ABG pH POC ABG pCO2 89.7 H POC ABG pO2 60.2 L ABG pO2 ABG Hemoglobin 8.8 L ABG Oxyhemoglobin 86.9 L ABG Sodium 153.6 H ABG Potassium ABG Chloride ABG Glucose 195 H Carboxyhemoglobin Sodium Potassium Chloride Carbon Dioxide BUN Creatinine Glucose POC Glucose 157 H 186 H Lactic Acid Calcium Phosphorus Magnesium AST ALT Total Creatine Kinase CK-MB (CK-2) Troponin T Total Protein Albumin Triglycerides Cholesterol LDL Cholesterol Direct HDL Cholesterol TSH Arterial Blood Glucose 195 H Arterial Blood Ionized Calcium Urine WBC (Auto) Urine Creatinine Urine Total Protein Allied health notes reviewed: nursing
--- NOTE | 2021-05-05 14:07 | Progress Note ---
Assessment and Plan Assessment and plan: NEURO hx CVA with l sided weakness; new onset sz; metabolic encephalopathy new onset seizures - mon endy PERRL; no commands but remains sedated on prop and ativan CT head on admit- IMPRESSION: Encephalomalacia in the right temporal lobe, frontal lobe; no acute/subacute parenchymal lesions MRI Encephalomalacia in the right cerebral hemisphere - see report will need repeat CT per neuro when PEEP is dec; Dr Arrington has told RN's not to take to CT on level of vent support she is requiring sedated on propofol and ativan daily SAT limited by hypoxia RAAS goal neg 4 seroquel BID; following QT case management following family updated daily on plan of care CV: hx htn on norvasc at home per EMR; ST; hypotension likely volume depletion/sepsis or combination of the 2 asa/statin echo 04/22 see report -normal biV function PRN hydral s/p adenosine and amiodarone on 05/03 for some tachycardia Vasopressors for blood pressure support RESP acute resp failure with PE on CTA; refractory hypoxia requiring MV; permissive hypercapnia to Ph of 7.2 intubated in ER; remains ventilated APRV Phigh 30/P low 6/Pmax 60 on 100% FiO2 permissive hypercapnia sat goal 88 pH goal 7.[address] noted - a/c lung disease evident with LPA PE's noted US BLE neg for DVT trending lactate/ABG and chest xrays continue nebs continue solumedrol will likely need trach- today vent day 11 Antibiotic therapy GI -illeus TF at goal -- held this afternoon pt vomited NG to LIS nutrition following PPI bowel reg - colace/senna/miralax concern for illeus-Dulcolax suppository KUB ordered for AM Looks better on xray-resume TF ans FWF 05/05 -LIZBETH worsening; hyperNa; lactic acidosis Corral; exchange 05/05 strict I/O trend and replace electrolytes as needed trend BUN/CR/CK Nephrology reconsulted Will again trial Lasix today D5W gtt FWF AM labs ordered HEME- Pulmonary emboli VTE on lovenox BID trending coags/Xa trend CBC no bleeding on exam LE dopplers neg for DVT; positive CTA for PE on admit ID- lactic acidosis, GNR UTI covid neg afebrile but lactic acid high and pt now on NE and vaso; also ST on monitor abx: cefepime (vanco d/c d/t UC with GNR), Corral change 05/05 continue to trend temp and WBC curve continuing methylpred ENDO stress hyperglycemia; obese blood glucose monitoring avoid hypoglycemia SSI PRN The high probability of a clinically significant, sudden or life threatening deterioration of the [respiratory] system(s) required my full and direct atten tion, intervention and personal management. The aggregate critical care time was [60] minutes. This time is in addition to time spent performing reported procedures but includes the following: [x] Data Review and interpretation [x] Patient assessment and monitoring of vital signs [x] Documentation [x] Medication orders and management Disposition Plan: ICU Total Time Spent with Patient (Minutes): 60 History Interval history: This is a 66-year-old female with HTN, HLD, prior CVA with resulting left-sided weakness present today with emergency department via EMS for AMS and new onset seizures with increased left-sided weakness. Upon arrival to the emergency room patient was intubated for airway protection and hypoxia. Patient was admitted to the hospital service with new onset seizures, acute hypoxic respiratory failure with pulmonary embolism on CTA, acute kidney injury, rhabdomyolysis. 04-30 NO ACUTE EVENTS OVERNIGHT; diuresis with 40 mg IV lasix 05-01 no acute events overnight; diuresis with 40 mg IV lasix 05-02: diuresis with lasix 40 mg IV during the day - pt still grossly pos per I/O; and pt weight, overnight pt persistently tachycardic given adenosine and amio gtt 05/04: Nephrology will try Lasix, [facility] adjust advanced to APRV to help with ventilation. Will obtain BMP at 2100. CCM okay with SPO2 greater than 88, pH of greater than 7.2. Hypernatremia to 160, started on D5 W, severe hypercapnia noted on ABG and patient ventilator settings was changed. Lactic acidosis noted with hyperglycemia. Hyperkalemia noted which was medically treated. 05/05: Lasix again today per nephro., increase in Plow to 30 post abg per ccm, increase in D5W gtt and FWF q200 and will restart TF. Vanco d/c r/t GNR in urine and corral changed. Remains on levo and vaso. Hospitalist Physical - Constitutional Vitals: Temp Pulse Resp BP Pulse Ox 98.9 F 113 H 10 L 125/71 94 05/05/21 08:00 05/05/21 12:21 05/05/21 11:00 05/05/21 12:21 05/05/21 12:21 General appearance: Present: no acute distress, well-nourished, other (Sedated on vent) - EENT Eyes: Present: PERRL - Neck Neck: Present: supple - Respiratory Respiratory effort: normal Respiratory: bilateral: diminished - Cardiovascular Rhythm: regular - Extremities Extremities: no ischemia, pulses symmetrical Peripheral Pulses: within normal limits - Abdominal General gastrointestinal: soft, non-tender - Integumentary Integumentary: Present: warm, dry - Psychiatric Psychiatric: other (sedated) - Neurologic Neurologic: other (sedated) - Allied Health Allied health notes reviewed: nursing, RT, social work HEART Score - HEART Score Age: 45-65 Risk factors: 1-2 risk factors Troponin: Troponin T 0.055 ng/mL (0.00-0.029) H 04/21/21 16:32 - Critical Actions Critical Actions: 0-3 pts:0.9-1.7%risk of adverse cardiac event.Candidate for discharge Results - Labs CBC & Chem 7: 05/05/21 04:58 05/05/21 04:58 Labs: Laboratory Last Values WBC 9.1 K/mm3 (4.5-11.0) 05/05/21 04:58 RBC 2.78 M/mm3 (3.65-5.03) L 05/05/21 04:58 Hgb 8.6 gm/dl (10.1-14.3) L 05/05/21 04:58 Hct 27.1 % (30.3-42.9) L 05/05/21 04:58 MCV 97 fl (79-97) 05/05/21 04:58 MCH 31 pg (28-32) 05/05/21 04:58 MCHC 32 % (30-34) 05/05/21 04:58 RDW 17.0 % (13.2-15.2) H 05/05/21 04:58 Plt Count 212 K/mm3 (140-440) 05/05/21 04:58 Lymph % (Auto) 12.0 % (13.4-35.0) L 04/22/21 05:29 [place] % (Auto) 2.8 % (0.0-7.3) 04/30/21 07:40 Eos % (Auto) 0.9 % (0.0-4.3) 04/30/21 07:40 Baso % (Auto) 0.7 % (0.0-1.8) 04/22/21 05:29 Lymph # (Auto) 1.1 K/mm3 (1.2-5.4) L 04/22/21 05:29 [place] # (Auto) 0.2 K/mm3 (0.0-0.8) 04/30/21 07:40 Eos # (Auto) 0.1 K/mm3 (0.0-0.4) 04/30/21 07:40 Baso # (Auto) 0.0 K/mm3 (0.0-0.1) 04/30/21 07:40 Add Manual Diff Complete 05/03/21 03:45 Total Counted 100 05/03/21 03:45 Seg Neutrophils % 88.4 % (40.0-70.0) H 04/30/21 07:40 Seg Neuts % (Manual) 63.0 % (40.0-70.0) 05/03/21 03:45 Band Neutrophils % 22.0 % 05/03/21 03:45 Lymphocytes % (Manual) 9.0 % (13.4-35.0) L 05/03/21 03:45 Reactive Lymphs % (Man) 2.0 % 05/03/21 03:45 Monocytes % (Manual) 2.0 % (0.0-7.3) 05/03/21 03:45 Eosinophils % (Manual) 1.0 % (0.0-4.3) 04/30/21 07:40 Metamyelocytes % 3.0 % 05/02/21 06:57 Myelocytes % 2.0 % 05/03/21 03:45 Nucleated RBC % 6.0 % (0.0-0.9) H 05/03/21 03:45 Seg Neutrophils # 7.5 K/mm3 (1.8-7.7) 04/30/21 07:40 Seg Neutrophils # Man 5.4 K/mm3 (1.8-7.7) 05/03/21 03:45 Band Neutrophils # 1.9 K/mm3 05/03/21 03:45 Lymphocytes # (Manual) 0.8 K/mm3 (1.2-5.4) L 05/03/21 03:45 Abs React Lymphs (Man) 0.2 K/mm3 05/03/21 03:45 Monocytes # (Manual) 0.2 K/mm3 (0.0-0.8) 05/03/21 03:45 Eosinophils # (Manual) 0.0 K/mm3 (0.0-0.4) 05/03/21 03:45 Basophils # (Manual) 0.0 K/mm3 (0.0-0.1) 05/03/21 03:45 Metamyelocytes # 0.0 K/mm3 05/03/21 03:45 Myelocytes # 0.2 K/mm3 05/03/21 03:45 Promyelocytes # 0.0 K/mm3 05/03/21 03:45 Blast Cells # 0.0 K/mm3 05/03/21 03:45 WBC Morphology Not Reportable 05/03/21 03:45 Hypersegmented Neuts Not Reportable 05/03/21 03:45 Hyposegmented Neuts Not Reportable 05/03/21 03:45 Hypogranular Neuts Not Reportable 05/03/21 03:45 Smudge Cells Not Reportable 05/03/21 03:45 Toxic Granulation Not Reportable 05/03/21 03:45 Toxic Vacuolation Not Reportable 05/03/21 03:45 Dohle Bodies Not Reportable 05/03/21 03:45 Pelger-Huet Anomaly Not Reportable 05/03/21 03:45 Brenda Rods Not Reportable 05/03/21 03:45 Platelet Estimate Consistent w auto 05/03/21 03:45 Clumped Platelets Not Reportable 05/03/21 03:45 Plt Clumps, EDTA Not Reportable 05/03/21 03:45 Large Platelets Not Reportable 05/03/21 03:45 Giant Platelets Few 05/03/21 03:45 Platelet Satelliting Not Reportable 05/03/21 03:45 Plt Morphology Comment Not Reportable 05/03/21 03:45 RBC Morphology Not Reportable 05/03/21 03:45 Dimorphic RBCs Not Reportable 05/03/21 03:45 Polychromasia Not Reportable 05/03/21 03:45 Hypochromasia Not Reportable 05/03/21 03:45 Poikilocytosis Not Reportable 05/03/21 03:45 Anisocytosis Not Reportable 05/03/21 03:45 Microcytosis Not Reportable 05/03/21 03:45 Macrocytosis Not Reportable 05/03/21 03:45 Spherocytes Not Reportable 05/03/21 03:45 Pappenheimer Bodies Not Reportable 05/03/21 03:45 Sickle Cells Not Reportable 05/03/21 03:45 Target Cells Not Reportable 05/03/21 03:45 Tear Drop Cells Not Reportable 05/03/21 03:45 Ovalocytes Not Reportable 05/03/21 03:45 Helmet Cells Not Reportable 05/03/21 03:45 Payan-Custer Bodies Not Reportable 05/03/21 03:45 Almira Rings Not Reportable 05/03/21 03:45 Chay Cells Not Reportable 05/03/21 03:45 Bite Cells Not Reportable 05/03/21 03:45 Crenated Cell Not Reportable 05/03/21 03:45 Elliptocytes Not Reportable 05/03/21 03:45 Acanthocytes (Spur) Not Reportable 05/03/21 03:45 Rouleaux Not Reportable 05/03/21 03:45 Hemoglobin C Crystals Not Reportable 05/03/21 03:45 Schistocytes Not Reportable 05/03/21 03:45 Malaria parasites Not Reportable 05/03/21 03:45 Uli Bodies Not Reportable 05/03/21 03:45 Hem Pathologist Commnt No 05/03/21 03:45 PT 13.2 Sec. (12.2-14.9) 04/22/21 00:32 INR 0.95 (0.87-1.13) 04/22/21 00:32 APTT 29.2 Sec. (24.2-36.6) 04/22/21 00:32 D-Dimer 1522.26 ng/mlDDU (0-234) H 04/21/21 16:30 Heparin Anti-Xa Level 0.84 U.I./ml (0.3-0.7) H 04/24/21 10:14 ABG pH 7.350 (7.320-7.450) 05/05/21 10:52 POC ABG pCO2 89.7 mmHg (32.0-48.0) H 05/05/21 10:52 ABG pCO2 46.0 mm Hg 04/22/21 17:30 POC ABG pO2 60.2 mmHg (83-108) L 05/05/21 10:52 ABG pO2 99.6 mm Hg (80.0-90.0) H 04/22/21 17:30 POC ABG HCO3 48.4 05/05/21 10:52 ABG HCO3 24.4 mmol/L (20.0-26.0) 04/22/21 17:30 ABG O2 Saturation 88.4 (0-100) 05/05/21 10:52 ABG O2 Content 19.9 (0.0-44) 04/22/21 17:30 POC ABG Base Excess 19.8 05/05/21 10:52 ABG Base Excess -1.6 mmol/L (-2.0-3.0) 04/22/21 17:30 ABG Hemoglobin 8.8 (12.0-17.5) L 05/05/21 10:52 ABG Oxyhemoglobin 86.9 (94-98) L 05/05/21 10:52 ABG Carboxyhemoglobin 0.9 % (0.0-5.0) 04/22/21 17:30 ABG Methemoglobin 0.3 (0.0-1.5) 05/05/21 10:52 ABG Sodium 153.6 mmol/L (136.0-145.0) H 05/05/21 10:52 ABG Potassium 4.4 mmol/L (3.40-4.50) 05/05/21 10:52 ABG Chloride 106.0 mmol/L (98-107) 05/05/21 10:52 ABG Glucose 195 mg/dL (65-95) H 05/05/21 10:52 Oxyhemoglobin 95.9 % (95.0-99.0) 04/22/21 17:30 Carboxyhemoglobin 1.4 (0.5-1.5) 05/05/21 10:52 FiO2 100 % 04/22/21 17:30 FiO2 % 100.0 05/05/21 10:52 Sodium 161 mmol/L (137-145) H* 05/05/21 04:58 Potassium 5.0 mmol/L (3.6-5.0) 05/05/21 04:58 Chloride 112.6 mmol/L (98-107) H 05/05/21 04:58 Carbon Dioxide 46 mmol/L (22-30) H* 05/05/21 04:58 Anion Gap 7 mmol/L 05/05/21 04:58 BUN 67 mg/dL (7-17) H 05/05/21 04:58 Creatinine 1.2 mg/dL (0.6-1.2) 05/05/21 04:58 Estimated GFR 55 ml/min 05/05/21 04:58 BUN/Creatinine Ratio 56 % 05/05/21 04:58 Glucose 188 mg/dL (65-100) H 05/05/21 04:58 POC Glucose 186 mg/dL (70-105) H 05/05/21 11:55 Osmolality 375 Mosm/kg 05/04/21 13:27 Lactic Acid 3.00 mmol/L (0.7-2.0) H* 05/04/21 13:27 Calcium 9.9 mg/dL (8.4-10.2) 05/05/21 04:58 Phosphorus 3.00 mg/dL (2.5-4.5) D 05/05/21 04:58 Magnesium 3.00 mg/dL (1.7-2.3) H 05/05/21 04:58 Total Bilirubin 0.40 mg/dL (0.1-1.2) 05/04/21 07:11 AST 44 units/L (5-40) H 05/04/21 07:11 ALT 32 units/L (7-56) 05/04/21 07:11 Alkaline Phosphatase 87 units/L (35-129) 05/04/21 07:11 Ammonia 58.0 umol/L (25-60) 04/28/21 04:45 Total Creatine Kinase 32 units/L (30-135) 05/03/21 03:45 CK-MB (CK-2) 22.4 ng/mL (0.0-4.0) H 04/21/21 16:32 CK-MB (CK-2) Rel Index 0.7 (0-4) 04/21/21 16:32 Troponin T 0.055 ng/mL (0.00-0.029) H 04/21/21 16:32 Total Protein 5.7 g/dL (6.3-8.2) L 05/04/21 07:11 Albumin 2.2 g/dL (3.9-5) L 05/04/21 07:11 Albumin/Globulin Ratio 0.6 % 05/04/21 07:11 Triglycerides 304 mg/dL (2-149) H 04/30/21 17:00 Cholesterol 220 mg/dL (50-199) H 04/21/21 16:32 LDL Cholesterol Direct 142 mg/dL (50-130) H 04/21/21 16:32 HDL Cholesterol 36 mg/dL (40-59) L 04/21/21 16:32 Cholesterol/HDL Ratio 6.11 % 04/21/21 16:32 TSH 0.051 mlU/mL (0.270-4.200) L 05/03/21 06:05 Free T4 1.05 ng/dL (0.76-1.46) 04/21/21 16:32 Arterial Blood Glucose 195 mg/dL (65-95) H 05/05/21 10:52 Arterial Blood Ionized Calcium 4.9 mg/dL (4.6-5.3) 05/05/21 10:52 Urine Color [place] (Yellow) 05/03/21 16:10 Urine Turbidity Turbid (Clear) 05/03/21 16:10 Urine pH 5.0 (5.0-7.0) 05/03/21 16:10 Ur Specific [place] 1.016 (1.003-1.030) 05/03/21 16:10 Urine Protein 30 mg/dl mg/dL (Negative) 05/03/21 16:10 Urine Glucose (UA) Neg mg/dL (Negative) 05/03/21 16:10 Urine Ketones Neg mg/dL (Negative) 05/03/21 16:10 Urine Blood Sm (Negative) 05/03/21 16:10 Urine Nitrite Neg (Negative) 05/03/21 16:10 Urine Bilirubin Neg (Negative) 05/03/21 16:10 Urine Urobilinogen 2.0 mg/dL (<2.0) 05/03/21 16:10 Ur Leukocyte Esterase Sm (Negative) 05/03/21 16:10 Urine WBC (Auto) 43.0 /HPF (0.0-6.0) H 05/03/21 16:10 Urine RBC (Auto) 20.0 /HPF (0.0-6.0) 05/03/21 16:10 U Epithel Cells (Auto) 11.0 /HPF (0-13.0) 05/03/21 16:10 Urine Bacteria (Auto) 2+ /HPF (Negative) 05/03/21 16:10 Urine WBC Clumps 3+ /HPF 05/03/21 16:10 Urine Mucus 2+ /HPF 05/03/21 16:10 Urine Yeast (Budding) 3+ /HPF 05/03/21 16:10 Urine Osmolality 435 Mosm/kg 05/03/21 16:10 Urine Creatinine 65.6 mg/dL (0.1-20.0) H 05/03/21 16:10 Urine Sodium 38 mmol/L 05/03/21 16:10 Urine Urea Nitrogen 597 05/03/21 16:10 Urine Total Protein 86 mg/dL (5-11.8) H 04/22/21 13:03 Urine Opiates Screen Negative 04/21/21 Unknown Urine Methadone Screen Negative 04/21/21 Unknown Ur Barbiturates Screen Negative 04/21/21 Unknown Ur Phencyclidine Scrn Negative 04/21/21 Unknown Ur Amphetamines Screen Negative 04/21/21 Unknown U Benzodiazepines Scrn Negative 04/21/21 Unknown Urine Cocaine Screen Negative 04/21/21 Unknown U Marijuana (THC) Screen Negative 04/21/21 Unknown Drugs of Abuse Note Disclamer 04/21/21 Unknown Plasma/Serum Alcohol < 0.01 % (0-0.07) 04/21/21 16:32 Coronavirus (PCR) Negative (Negative) 04/23/21 Unknown Microbiology: Microbiology 05/03/21 16:55 Tracheal Aspirate Sputum Culture - Final Klebsiella Pneumoniae 04/21/21 15:44 Tracheal Aspirate Sputum Culture - Final 05/03/21 15:27 Peripheral/Venous Blood Culture - Preliminary Gram Negative Markus 05/03/21 16:10 Urine,Clean Catch Urine Culture - Preliminary Gram Negative Markus 05/03/21 15:27 Peripheral/Venous Blood Culture - Preliminary Gram Negative Markus Corral/IV: Voiding Method Indwelling Catheter Active Medications - Current Medications Current Medications: Generic Name Dose Route Start Last Admin Trade Name Freq PRN Reason Stop Dose Admin Acetaminophen 650 mg 04/21/21 21:11 04/28/21 16:30 Acetaminophen 325 Mg Tab PO 650 mg Q4H PRN Administration Pain MILD(1-3)/Fever >100.5/DICKINSON Acetaminophen 650 mg 05/03/21 23:39 Acetaminophen 650 Mg Rect Supp FL Q6H PRN Feverr>100.5 Lipase/Protease/Amylase 1 each 04/22/21 10:51 Lipase 10,500/Protease 25,000/Amylase 43,750 (Units) Dr Ryan FEEDTUBE PRN PRN For Clogged Feeding Tube Arformoterol Tartrate 15 mcg 04/29/21 20:00 05/05/21 09:13 Arformoterol 15 Mcg/2 Ml Nebu IH 15 mcg Q12HRT MINOR Administration Aspirin 325 mg 05/01/21 13:00 05/05/21 09:24 Aspirin 325 Mg Tab PO 325 mg QDAY MINOR Administration Atorvastatin Calcium 40 mg 05/01/21 22:00 05/04/21 21:19 Atorvastatin 40 Mg Tab PO 40 mg QHS MINOR Administration Budesonide 0.5 mg 04/29/21 20:00 05/05/21 09:13 Budesonide 0.5 Mg/2 Ml Nebu IH 0.5 mg Q12HRT MINOR Administration Dextrose 50 ml 05/04/21 19:00 Dextrose 50% In Water (25gm) 50 Ml Syringe IV Q30MIN PRN Hypoglycemia Protocol Enoxaparin Sodium 80 mg 04/29/21 14:00 05/05/21 02:28 Enoxaparin 80 Mg/0.8 Ml Inj SUB-Q 80 mg Q12H MINOR Administration Famotidine 20 mg 05/04/21 10:00 05/05/21 09:24 Famotidine 20 Mg Tab PO 20 mg DAILY MINOR Administration Hydralazine HCl 10 mg 04/29/21 12:23 Hydralazine 20 Mg/1 Ml Inj IV Q4H PRN Hypertension Hydrophilic Ointment 1 applic 04/21/21 15:46 Lip Therapy Vaseline TP Q2HR PRN Dry Lips Propofol 1,000 mg in 100 mls @ 2.19 mls/hr 04/26/21 11:00 05/05/21 12:22 Diprivan 10 Mg/Ml IV 10 mcg/kg/min TITR MINOR 4.38 mls/hr Administration Protocol 5 MCG/KG/MIN Lorazepam 100 mg/ Sodium 100 mls @ 1 mls/hr 04/30/21 11:00 05/04/21 01:11 Chloride/ Miscellaneous IV 2 mg/hr Information TITR MINOR 2 mls/hr Titration Protocol 1 MG/HR Vasopressin 20 unit/ Sodium 101 mls @ 9.09 mls/hr 05/02/21 21:00 05/05/21 04:18 Chloride IV 0 units/min TITR MINOR 0 mls/hr Titration Protocol 0.03 UNITS/MIN Norepinephrine 4 mg in 250 mls @ 7.5 mls/hr 05/03/21 02:00 05/04/21 21:32 Levophed Drip 4 Mg/Ns 250 Ml IV 0 mcg/min TITR MINOR 0 mls/hr Titration Protocol 2 MCG/MIN Cefepime HCl 2 gm in 100 mls @ 200 mls/hr 05/03/21 16:00 05/05/21 04:18 Cefepime/Ns 2 Gm/100 Ml IV Infused Q12H MINOR Infusion Protocol Dextrose 1,000 mls @ 125 mls/hr 05/04/21 09:00 05/05/21 12:24 D5w IV 75 mls/hr DIRECT MINOR Administration Insulin Human Lispro 0 unit 05/03/21 00:00 05/05/21 12:21 Insulin Lispro 100 Unit/Ml SUB-Q 3 unit Q6HR MINOR Administration Protocol Levetiracetam 750 mg 04/25/21 10:00 05/05/21 09:24 Levetiracetam 500 Mg/5 Ml Oral Liqd PO 750 mg BID MINOR Administration Methylprednisolone Sodium Succinate 60 mg 04/28/21 06:00 05/05/21 12:20 Methylprednisolone Sod Succinate 40 Mg/1 Ml Inj IV 60 mg Q6H MINOR Administration Multi-Ingred Cream/Lotion/Oil/Oint 1 applic 04/21/21 15:46 Mineral Oil/Petrolatum, White Ophth Oint 3.5 Gm OU Q4HR PRN Dry Eye(s) Ondansetron HCl 4 mg 05/03/21 18:23 05/03/21 18:40 Ondansetron 4 Mg/2 Ml Inj IV 4 mg Q6H PRN Administration Nausea And Vomiting Polyethylene Glycol 17 gm 05/02/21 15:00 Polyethylene Glycol 3350 17 Gm Powder PO QDAY PRN Constipation Quetiapine Fumarate 25 mg 04/30/21 11:00 05/05/21 09:24 Quetiapine 25 Mg Tab PO 25 mg BID MINOR Administration Senna/Docusate Sodium 1 tab 04/26/21 22:00 05/04/21 21:19 Sennosides/Docusate Sodium 8.6/50 Mg Tab FEEDTUBE 1 tab QHS MINOR Administration Simple Syrup 15 ml 04/22/21 10:51 Simple Syrup 15 Ml FEEDTUBE PRN PRN Hypoglycemia Simple Syrup 30 ml 04/22/21 10:51 Simple Syrup 15 Ml FEEDTUBE PRN PRN Hypoglycemia Sodium Bicarbonate 325 mg 04/22/21 10:51 Sodium Bicarbonate 325 Mg Tab FEEDTUBE PRN PRN For Clogged Feeding Tube Sodium Chloride 10 ml 04/21/21 22:00 05/05/21 09:24 Sodium Chloride 0.9% 10 Ml Flush Syringe IV 10 ml BID MINOR Administration Sodium Chloride 10 ml 04/21/21 21:11 04/27/21 02:54 Sodium Chloride 0.9% 10 Ml Flush Syringe IV 10 ml PRN PRN Administration LINE FLUSH Nutrition/Malnutrition Assess - Dietary Evaluation Nutrition/Malnutrition Findings: Nutrition Notes Start: 04/22/21 10:45 Freq: Status: Active Protocol: Document 05/01/21 12:27 (Rec: 05/01/21 12:30 [id number]) Nutrition Notes Initial or Follow up Reassessment Current Diagnosis Acute Kidney Injury, Hypertension,Stroke, Hyperlipidemia Other Pertinent Diagnosis New onset seizures, AMS, pulmonary embolism Current Diet TF - Nepro 35ml/hr Labs/Tests K 5.3 BUN 39 Pertinent Medications Solu medrol Height 5 ft 9 in Weight 79 kg [place] Body Weight (kg) 65.90 BMI 25.7 Weight change and time frame wt flucuations Weight Status Appropriate Subjective/Other Information Pt tolerating TF per RN. changed flush to 250 ml q4h. Percent of energy/protein needs met: 89% energy 71% pro Burn Absent Trauma Absent Minimum of two criteria No #1 Nutrition Diagnosis Inadequate oral intake Diagnosis Progress(for reassessment Continues documentation) Is patient on ventilator? Yes Is Patient Ambulatory and/or Out of Bed No REE-([place]-St. Jeor-confined to bed) [phone] Calculation Used for Recommendations [place]-St Jeor Additional Notes Pro needs 1.2-2g/k-159g/ day Fluid needs 1ml/kcal Nutrition Intervention Nutrition Support: Continue Nepro at 35ml/hr with 150ml water flush q4h. Kcal 1,512 Protein (gm) 68 Carbohydrates (gm) 135 Fat (gm) 81 Fluid (mL) 611 Fiber (gm) 11 Goal #1 TF tolerance Goal #2 TF to meet at least 75% energy and pro needs Follow-Up By: 05/08/21 Additional Comments FU for stable TF
[2021-05-05] MEDS: LORazepam 100 MG in SODIUM CHLORIDE 0.9% 50 ML, EMPTY BAG 0 ML IV SCH (16:29)
[2021-05-05] MEDS: SENNOSIDES/DOCUSATE SODIUM 8.6/50 MG TAB FEEDTUBE SCH (21:29)
[2021-05-06] MEDS: DEXTROSE 5% IN WATER 1,000 ML IV SCH ×2 (00:57→14:22)
[2021-05-06] MEDS: ENOXAPARIN 80 MG/0.8 ML INJ SUB-Q SCH (02:09)
[2021-05-06] MEDS: CEFEPIME/NS 2 GM/100 ML 2 GM/100 ML BAG IV SCH ×2 (03:10→16:47)
[2021-05-06] MEDS: NORepinephrine/NS 4 MG-250 ML 4 MG/250 ML BAG IV SCH ×7 (03:12→21:55)
[2021-05-06] MEDS: ACETAMINOPHEN 325 MG TAB PO PRN (04:04)
[2021-05-06] MEDS: methylPREDNISolone Sod Succinate 40 MG/1 ML INJ IV SCH ×3 (05:28→17:54)
[2021-05-06] MEDS: INSULIN LISPRO 100 UNIT/ML SUB-Q SCH ×3 (05:29→17:54)
[2021-05-06] MEDS: ARFORMOTEROL 15 MCG/2 ML NEBU IH SCH ×3 (06:13→20:45)
[2021-05-06] MEDS: BUDESONIDE 0.5 MG/2 ML NEBU IH SCH ×3 (06:14→20:45)
[2021-05-06 06:41] LABS: Hematocrit 22.7 % (30.3-42.9); Hemoglobin 7.2 gm/dl (10.1-14.3); Mean Corpuscular HGB Conc 32 % (30-34); Mean Corpuscular Volume 97 fl (79-97); Platelet Count 139 K/mm3 (140-440); Red Blood Count 2.34 M/mm3 (3.65-5.03); Red Cell Distribution Width 16.8 % (13.2-15.2)
[2021-05-06 07:17] LABS: Calcium 9.1 mg/dL (8.4-10.2)
--- NOTE | 2021-05-06 09:03 | Progress Note ---
Assessment and Plan - Patient Problems (1) LIZBETH (acute kidney injury) Current Visit: Yes Status: Acute (2) Acute respiratory failure with hypoxia Current Visit: Yes Status: Acute (3) Hypotension Current Visit: Yes Status: Acute (4) Hyperkalemia Current Visit: Yes Status: Acute (5) Hypernatremia Current Visit: Yes Status: Acute Subjective Date of service: 05/06/21 Principal diagnosis: Acute kidney injury, rhabdomyolysis Objective - Vital Signs Vital signs: Vital Signs - 12hr 05/05/21 05/05/21 05/05/21 21:16 21:30 21:46 Temperature Pulse Rate 127 H 126 H 126 H Respiratory 10 L 11 L 11 L Rate Blood Pressure 151/75 144/70 144/70 O2 Sat by Pulse 98 Oximetry 05/05/21 05/05/21 05/05/21 22:00 22:16 22:24 Temperature Pulse Rate 123 H 125 H 127 H Respiratory 11 L 11 L 10 L Rate Blood Pressure 144/70 137/65 137/65 O2 Sat by Pulse 97 98 Oximetry 05/05/21 05/05/21 05/05/21 22:30 22:46 23:00 Temperature Pulse Rate 126 H 126 H 128 H Respiratory 12 11 L 10 L Rate Blood Pressure 142/61 142/61 142/61 O2 Sat by Pulse 82 L Oximetry 05/05/21 05/05/21 05/05/21 23:16 23:30 23:46 Temperature Pulse Rate 125 H 126 H 126 H Respiratory 10 L 10 L 10 L Rate Blood Pressure 137/63 134/59 134/59 O2 Sat by Pulse Oximetry 05/06/21 05/06/21 05/06/21 00:00 00:16 00:30 Temperature 97.8 F Pulse Rate 126 H 126 H 129 H Respiratory 10 L 10 L 10 L Rate Blood Pressure 122/60 122/60 114/54 O2 Sat by Pulse 100 Oximetry 05/06/21 05/06/21 05/06/21 00:46 01:00 01:16 Temperature Pulse Rate 128 H 124 H 126 H Respiratory 10 L 10 L 16 Rate Blood Pressure 114/54 106/51 106/51 O2 Sat by Pulse 93 Oximetry 05/06/21 05/06/21 05/06/21 01:30 01:45 02:00 Temperature Pulse Rate 125 H 124 H 124 H Respiratory 10 L 10 L 10 L Rate Blood Pressure 100/52 100/52 102/54 O2 Sat by Pulse 99 99 Oximetry 05/06/21 05/06/21 05/06/21 02:16 02:30 02:46 Temperature Pulse Rate 124 H 128 H 124 H Respiratory 10 L 10 L 10 L Rate Blood Pressure 102/54 106/51 106/51 O2 Sat by Pulse 96 96 Oximetry 05/06/21 05/06/21 05/06/21 03:00 03:16 03:30 Temperature Pulse Rate 115 H 128 H 129 H Respiratory 10 L 10 L 10 L Rate Blood Pressure 106/51 82/41 129/59 O2 Sat by Pulse 88 87 91 Oximetry 05/06/21 05/06/21 05/06/21 03:45 04:00 04:15 Temperature 100.4 F H Pulse Rate 132 H 127 H 129 H Respiratory 10 L 10 L 10 L Rate Blood Pressure 121/55 107/54 116/58 O2 Sat by Pulse 95 99 94 Oximetry 05/06/21 05/06/21 05/06/21 04:30 04:45 05:00 Temperature Pulse Rate 129 H 129 H 127 H Respiratory 10 L 10 L 10 L Rate Blood Pressure 112/52 93/60 93/60 O2 Sat by Pulse 100 95 Oximetry 05/06/21 05/06/21 05/06/21 05:15 05:30 05:45 Temperature Pulse Rate 125 H 126 H 123 H Respiratory 10 L 10 L 10 L Rate Blood Pressure 95/56 112/56 120/67 O2 Sat by Pulse 92 80 L Oximetry 05/06/21 05/06/21 05/06/21 06:00 06:15 06:30 Temperature Pulse Rate 124 H 111 H 107 H Respiratory 10 L 10 L 10 L Rate Blood Pressure 84/45 74/38 87/30 O2 Sat by Pulse 72 L 72 L 37 L Oximetry 05/06/21 05/06/21 05/06/21 06:45 07:00 08:00 Temperature 100.6 F H Pulse Rate 109 H 109 H Respiratory 10 L 10 L Rate Blood Pressure 80/34 73/37 O2 Sat by Pulse 55 L 49 L Oximetry - Lab 05/06/21 06:17 08 06:17 Most recent lab results ABG pH 7.292 (7.320-7.450) L 05/06/21 04:26 ABG pCO2 46.0 mm Hg 04/22/21 17:30 ABG pO2 99.6 mm Hg (80.0-90.0) H 04/22/21 17:30 ABG HCO3 24.4 mmol/L (20.0-26.0) 04/22/21 17:30 ABG O2 Saturation 77.7 (0-100) 05/06/21 04:26 Calcium 9.1 mg/dL (8.4-10.2) 05/06/21 06:17 Phosphorus 3.00 mg/dL (2.5-4.5) D 05/05/21 04:58 Magnesium 3.00 mg/dL (1.7-2.3) H 05/05/21 04:58 Urine Creatinine 65.6 mg/dL (0.1-20.0) H 05/03/21 16:10 Urine Sodium 38 mmol/L 05/03/21 16:10 Urine Total Protein 86 mg/dL (5-11.8) H 04/22/21 13:03 Medications & Allergies - Medications Allergies/Adverse Reactions: Allergies No Known Allergies Allergy (Unverified 03/04/19 19:33) Home Medications: Home Medications Medication Instructions Recorded Confirmed Last Taken Type Lipitor 40 mg PO QHS #30 03/10/19 04/25/21 Unknown Rx Aspirin 300 mg PO QDAY 04/25/21 04/25/21 Unknown History Aspirin [Aspirin BABY CHEW TAB] 81 mg PO QDAY 04/25/21 04/25/21 Unknown History Sertraline [Zoloft] 50 mg PO QDAY 04/25/21 04/25/21 Unknown History amLODIPine 10 mg PO QDAY 04/25/21 04/25/21 Unknown History hydroCHLOROthiazide 12.5 mg PO QDAY 04/25/21 04/25/21 Unknown History [Hydrochlorothiazide] Active Medications: Generic Name Dose Route Start Last Admin Trade Name Freq PRN Reason Stop Dose Admin Acetaminophen 650 mg 04/21/21 21:11 05/06/21 04:04 Acetaminophen 325 Mg Tab PO 650 mg Q4H PRN Administration Pain MILD(1-3)/Fever >100.5/DICKINSON Acetaminophen 650 mg 05/03/21 23:39 Acetaminophen 650 Mg Rect Supp [place] Q6H PRN Feverr>100.5 Lipase/Protease/Amylase 1 each 04/22/21 10:51 Lipase 10,500/Protease 25,000/Amylase 43,750 (Units) Dr Ryna FEEDTUBE PRN PRN For Clogged Feeding Tube Arformoterol Tartrate 15 mcg 04/29/21 20:00 05/06/21 06:13 Arformoterol 15 Mcg/2 Ml Nebu IH Not Given Q12HRT MINOR Aspirin 325 mg 05/01/21 13:00 05/05/21 09:24 Aspirin 325 Mg Tab PO 325 mg QDAY MINOR Administration Atorvastatin Calcium 40 mg 05/01/21 22:00 05/05/21 21:28 Atorvastatin 40 Mg Tab PO 40 mg QHS MINOR Administration Budesonide 0.5 mg 04/29/21 20:00 05/06/21 06:14 Budesonide 0.5 Mg/2 Ml Nebu IH Not Given Q12HRT MINOR Dextrose 50 ml 05/04/21 19:00 Dextrose 50% In Water (25gm) 50 Ml Syringe IV Q30MIN PRN Hypoglycemia Protocol Enoxaparin Sodium 80 mg 04/29/21 14:00 05/06/21 02:09 Enoxaparin 80 Mg/0.8 Ml Inj SUB-Q 80 mg Q12H MINOR Administration Famotidine 20 mg 05/04/21 10:00 05/05/21 09:24 Famotidine 20 Mg Tab PO 20 mg DAILY MINOR Administration Hydralazine HCl 10 mg 04/29/21 12:23 Hydralazine 20 Mg/1 Ml Inj IV Q4H PRN Hypertension Hydrophilic Ointment 1 applic 04/21/21 15:46 Lip Therapy Vaseline TP Q2HR PRN Dry Lips Propofol 1,000 mg in 100 mls @ 2.19 mls/hr 04/26/21 11:00 05/05/21 22:31 Diprivan 10 Mg/Ml IV 10 mcg/kg/min TITR MINOR 4.38 mls/hr Titration Protocol 5 MCG/KG/MIN Lorazepam 100 mg/ Sodium 100 mls @ 1 mls/hr 04/30/21 11:00 05/05/21 22:31 Chloride/ Miscellaneous IV 2 mg/hr Information TITR MINOR 2 mls/hr Titration Protocol 1 MG/HR Vasopressin 20 unit/ Sodium 101 mls @ 9.09 mls/hr 05/02/21 21:00 05/06/21 03:02 Chloride IV 0.03 units/min TITR MINOR 9.09 mls/hr Titration Protocol 0.03 UNITS/MIN Norepinephrine 4 mg in 250 mls @ 7.5 mls/hr 05/03/21 02:00 05/06/21 09:00 Levophed Drip 4 Mg/Ns 250 Ml IV 16 mcg/min TITR MINOR 60 mls/hr Titration Protocol 2 MCG/MIN Cefepime HCl 2 gm in 100 mls @ 200 mls/hr 05/03/21 16:00 05/06/21 03:40 Cefepime/Ns 2 Gm/100 Ml IV Infused Q12H MINOR Infusion Protocol Dextrose 1,000 mls @ 125 mls/hr 05/04/21 09:00 05/06/21 00:57 D5w IV 75 mls/hr DIRECT MINOR Administration Insulin Human Lispro 0 unit 05/03/21 00:00 05/06/21 05:29 Insulin Lispro 100 Unit/Ml SUB-Q 6 unit Q6HR MINOR Administration Protocol Levetiracetam 750 mg 04/25/21 10:00 05/05/21 21:27 Levetiracetam 500 Mg/5 Ml Oral Liqd PO 750 mg BID MINOR Administration Methylprednisolone Sodium Succinate 60 mg 04/28/21 06:00 05/06/21 05:28 Methylprednisolone Sod Succinate 40 Mg/1 Ml Inj IV 60 mg Q6H MINOR Administration Multi-Ingred Cream/Lotion/Oil/Oint 1 applic 04/21/21 15:46 Mineral Oil/Petrolatum, White Ophth Oint 3.5 Gm OU Q4HR PRN Dry Eye(s) Ondansetron HCl 4 mg 05/03/21 18:23 05/03/21 18:40 Ondansetron 4 Mg/2 Ml Inj IV 4 mg Q6H PRN Administration Nausea And Vomiting Polyethylene Glycol 17 gm 05/02/21 15:00 Polyethylene Glycol 3350 17 Gm Powder PO QDAY PRN Constipation Quetiapine Fumarate 25 mg 04/30/21 11:00 05/05/21 21:28 Quetiapine 25 Mg Tab PO 25 mg BID MINOR Administration Senna/Docusate Sodium 1 tab 04/26/21 22:00 05/05/21 21:29 Sennosides/Docusate Sodium 8.6/50 Mg Tab FEEDTUBE 1 tab QHS MINOR Administration Simple Syrup 15 ml 04/22/21 10:51 Simple Syrup 15 Ml FEEDTUBE PRN PRN Hypoglycemia Simple Syrup 30 ml 04/22/21 10:51 Simple Syrup 15 Ml FEEDTUBE PRN PRN Hypoglycemia Sodium Bicarbonate 325 mg 04/22/21 10:51 Sodium Bicarbonate 325 Mg Tab FEEDTUBE PRN PRN For Clogged Feeding Tube Sodium Chloride 10 ml 04/21/21 22:00 05/05/21 21:28 Sodium Chloride 0.9% 10 Ml Flush Syringe IV 10 ml BID MINOR Administration Sodium Chloride 10 ml 04/21/21 21:11 04/27/21 02:54 Sodium Chloride 0.9% 10 Ml Flush Syringe IV 10 ml PRN PRN Administration LINE FLUSH
[2021-05-06] MEDS: levETIRAcetam 500 MG/5 ML ORAL LIQD PO SCH ×2 (09:35→21:44)
[2021-05-06] MEDS: FAMOTIDINE 20 MG TAB PO SCH (09:35)
[2021-05-06] MEDS: QUEtiapine 25 MG TAB PO SCH ×2 (09:35→21:45)
[2021-05-06] MEDS: ASPIRIN 325 MG TAB PO SCH (09:35)
[2021-05-06] MEDS: FREE WATER PO SCH ×4 (09:35→21:46)
[2021-05-06] MEDS ORDERED: SODIUM CHLORIDE 0.9% 500 ML 500 ML IV NR (10:31)
[2021-05-06] MEDS ORDERED: LACTATED RINGERS 1,000 ML ONE (10:45)
--- NOTE | 2021-05-06 10:45 | Progress Note ---
Assessment and Plan 66 y/o female, intubated for airway protection, found to have severe ILD and no has refractory hypoxemia. 05/06/21: Stop sedation for now. Added a third vasopressor in Phenylephrine, goal map is 65. Repeated CXR and patient does not have PTX. Will give bolus now and transfuse two units of PRBC's. Stopped Lovenox therapy. Would hold on lasix today. Stopped tube feeds. Triglyceride level still not done. Will repeat blood cultures as well. Will call daughter to update her on patient condition. Continue IV steroids. Overall prognosis is worsening. Guarded to poor. 05/05/21: Now with GNR bacteremia, most likely source is urine. Needs corral however as she had urinary retention and we need strict I/O. Will change corral out today. Agree with repeat lasix that renal has already ordered. Patient is on Cefepime and agree with stopping vanc. Await speciation and susceptibilities. She has had minimal to no output from OG so will restart tube feeds and free water at 200q4. Ok with continuing D5 and bumping up rate. Will start to wean FiO2 again tomorrow. Will need repeat blood cultures as well. Ordered triglyceride level but not done. Will order again 05/04/21: Appreciate renal help and agree with trial of lasix. Made adjustments to aprv to help with ventilation. Repeat gas in 1 hour. Getting lasix, but suggest repeat chemistry tonight around 2100. Maintain sedation to rass of -4. Wean FiO2 for sats >88%. ok with pH's of >7.2. Overall prognosis remains guarded. Will reach out to daughter in the am. Guarded prognosis. Will check triglyceride levels in the am. 05/03/21: Found to have ileus on ABD x-ray. Hold feeds and continue to suction. Repeat imaging in am. Need to address hyperkalemia with IV therapy given Ileus. Will do insulin and Kayexalate therapy. Suggest repeat K later this evening. Dropped FiO2 to 90, continue to wean for sats greater 88%. No lasix today. Will give a liter bolus of LR. May need an additional bolus. Unable to transduce CVP from picc. Continue IV steroids. Repeat ABG in am. Suspect that renal insufficiency will be transient but will monitor closely. Guarded prognosis. Need to hold on CT given instability. 05/02/21: Continue current level of sedation. Maintain current TV settings and repeat ABG in am. Goal is to get FiO2 at 60 or less in the next 24 hours. Once FiO2 less than 50% can start weaning PEEP. Repeat IV lasix today. Will likely need more free water. Continue steroids. Guarded prognosis. 05/01/21: Continue Ativan and Diprovan drip. Maintain low tidal volume and high PEEP and as long as pH is greater than 7.2. continue diuresis with IV lasix. Guarded prognosis. Will call daughter back today. Continue High dose IV steroids for now. 04/30/21: Will add Ativan drip and attempt to wean Precedex to off. Once adeq uate sedation achieved and BP stable, will give an additional dose of IV lasix today. Increased Free Water to 250q4. Ok with current Triglyceride level but will need to repeat. Prognosis remains guarded. Will call daughter to update her. 04/29/21: Continue low tidal volumes and high PEEPs. Lasix 40mg IV x1 today. Continue high dose steroids. Will start pulmicort and brovana therapy. Progn osis remains very very guarded. Follow up Triglyceride episode tomorrow. 04/26/21: Dropped tidal volume to 300. Keep PEEP at 16. Repeat ABG at 1230. Now that BP is better will give lasix 40 IV x1. Please assess again tomorrow and see if she would benefit from this. Pulse dose steroids through tomorrow and then solumedrol 60q6 starting on Thursday. Spoke with daughter over the phone who confirmed that mother was a smoker, heavy for 30+ years. Will start on BID pulmicort and brovana therapy. Overall prognosis discussed with daughter regarding possible need for trach and vent dependence. She asked about lung tx which I explained is not an option at this time. She seemed to express und erstanding but was mainly in shock as she had no idea her mother had ILD and per daughter, mother never saw a lung physician. Guarded to poor prognosis. My partner rounding over the weekend, I am back on Thursday. 04/25/21: Picc line today. Increase PEEP to 16. Dropped TV back to 375. pH of 7.2 and greater is acceptable. Will also pulse dose for the next 72 hours and then transition to q6 dosing on Thursday. Will discuss current clinical state with daughter. Serial ABG's today to make sure pH stays where it needs to be and hopeful improvement in oxygenation. Guarded prognosis. 04/24/21: Will drop TV to 375 and Increase PEEP to 14. Will repeat ABG in one hour. If no improvements, may need to consider IV steroids for 48-72 hours. Exact etiology of chronic lung disease is not known. Would prefer not to give sedation vacation given high levels of oxygen required as agitation could make things worse. Right now, unable to determine current neuro state. Lungs are very very sick and even though this is a chronic issue, now with her drive diminished from the ventilator, most likely will be a difficult wean. Will discuss with family soon what the next steps could potentially be but would need to assess mental state first. Guarded prognosis. 1. Increase PEEP and repeat ABG 2. May need to consider IV steroids 3. Follow up neuro recs 4. Guarded prognosis. cCT 31 minutes. Subjective Date of service: 05/06/21 Principal diagnosis: Acute kidney injury, rhabdomyolysis Interval history: Clinically worse today. My hypotensive and hypoxic. Worsening anemia but no active signs noted of bleeding. Objective Vital Signs - 12hr 05/05/21 05/05/21 05/05/21 22:46 23:00 23:16 Temperature Pulse Rate 126 H 128 H 125 H Respiratory 11 L 10 L 10 L Rate Blood Pressure 142/61 142/61 137/63 O2 Sat by Pulse 82 L Oximetry 05/05/21 05/05/21 05/06/21 23:30 23:46 00:00 Temperature 97.8 F Pulse Rate 126 H 126 H 126 H Respiratory 10 L 10 L 10 L Rate Blood Pressure 134/59 134/59 122/60 O2 Sat by Pulse 100 Oximetry 05/06/21 05/06/21 05/06/21 00:16 00:30 00:46 Temperature Pulse Rate 126 H 129 H 128 H Respiratory 10 L 10 L 10 L Rate Blood Pressure 122/60 114/54 114/54 O2 Sat by Pulse Oximetry 05/06/21 05/06/21 05/06/21 01:00 01:16 01:30 Temperature Pulse Rate 124 H 126 H 125 H Respiratory 10 L 16 10 L Rate Blood Pressure 106/51 106/51 100/52 O2 Sat by Pulse 93 99 Oximetry 08/11/2505/06/21 05/06/21 01:45 02:00 02:16 Temperature Pulse Rate 124 H 124 H 124 H Respiratory 10 L 10 L 10 L Rate Blood Pressure 100/52 102/54 102/54 O2 Sat by Pulse 99 96 Oximetry 05/06/21 05/06/21 05/06/21 02:30 02:46 03:00 Temperature Pulse Rate 128 H 124 H 115 H Respiratory 10 L 10 L 10 L Rate Blood Pressure 106/51 106/51 106/51 O2 Sat by Pulse 96 88 Oximetry 05/06/21 05/06/21 05/06/21 03:16 03:30 03:45 Temperature Pulse Rate 128 H 129 H 132 H Respiratory 10 L 10 L 10 L Rate Blood Pressure 82/41 129/59 121/55 O2 Sat by Pulse 87 91 95 Oximetry 05/06/21 05/06/21 05/06/21 04:00 04:15 04:30 Temperature 100.4 F H Pulse Rate 127 H 129 H 129 H Respiratory 10 L 10 L 10 L Rate Blood Pressure 107/54 116/58 112/52 O2 Sat by Pulse 99 94 100 Oximetry 05/06/21 05/06/21 05/06/21 04:45 05:00 05:15 Temperature Pulse Rate 129 H 127 H 125 H Respiratory 10 L 10 L 10 L Rate Blood Pressure 93/60 93/60 95/56 O2 Sat by Pulse 95 92 Oximetry 05/06/21 05/06/21 05/06/21 05:30 05:45 06:00 Temperature Pulse Rate 126 H 123 H 124 H Respiratory 10 L 10 L 10 L Rate Blood Pressure 112/56 120/67 84/45 O2 Sat by Pulse 80 L 72 L Oximetry 05/06/21 05/06/21 05/06/21 06:15 06:30 06:45 Temperature Pulse Rate 111 H 107 H 109 H Respiratory 10 L 10 L 10 L Rate Blood Pressure 74/38 87/30 80/34 O2 Sat by Pulse 72 L 37 L 55 L Oximetry 05/06/21 05/06/21 05/06/21 07:00 07:15 07:30 Temperature Pulse Rate 109 H 112 H 116 H Respiratory 10 L 10 L 10 L Rate Blood Pressure 73/37 74/35 77/41 O2 Sat by Pulse 49 L 60 L 63 L Oximetry 05/06/21 05/06/21 05/06/21 07:45 08:00 08:15 Temperature 100.6 F H Pulse Rate 120 H 122 H 124 H Respiratory 10 L 11 L 10 L Rate Blood Pressure 94/49 90/47 99/52 O2 Sat by Pulse 57 L 84 87 Oximetry 05/06/21 05/06/21 05/06/21 08:30 08:45 09:00 Temperature Pulse Rate 122 H 128 H 128 H Respiratory 10 L 10 L 10 L Rate Blood Pressure 89/48 81/54 80/53 O2 Sat by Pulse 82 L 88 77 L Oximetry 05/06/21 05/06/21 05/06/21 09:15 09:30 09:46 Temperature Pulse Rate 127 H 122 H 130 H Respiratory 10 L 10 L 10 L Rate Blood Pressure 82/52 82/52 87/57 O2 Sat by Pulse 77 L 77 L 79 L Oximetry 05/06/21 10:00 Temperature Pulse Rate 133 H Respiratory 10 L Rate Blood Pressure 87/57 O2 Sat by Pulse 80 L Oximetry Constitutional: no acute distress, other (Sedated) Ascultation: Bilateral: rales, rhonchi CBC and BMP: 05/06/21 06:17 05/06/21 06:17 ABG, PT/INR, D-dimer: ABG ABG pH 7.292 (7.320-7.450) L 05/06/21 04:26 POC ABG pCO2 93.8 mmHg (32.0-48.0) H 05/06/21 04:26 ABG pCO2 46.0 mm Hg 04/22/21 17:30 POC ABG pO2 47.8 mmHg (83-108) L 05/06/21 04:26 ABG pO2 99.6 mm Hg (80.0-90.0) H 04/22/21 17:30 POC ABG HCO3 44.3 05/06/21 04:26 ABG O2 Saturation 77.7 (0-100) 05/06/21 04:26 PT/INR, D-dimer PT 13.2 Sec. (12.2-14.9) 04/22/21 00:32 INR 0.95 (0.87-1.13) 04/22/21 00:32 D-Dimer 1522.26 ng/mlDDU (0-234) H 04/21/21 16:30 Abnormal lab findings: Abnormal Labs 04/21/21 04/21/21 04/21/21 14:40 15:42 16:30 RBC Hgb Hct MCV RDW Plt Count Lymph % (Auto) [place] % (Auto) Lymph # (Auto) Seg Neutrophils % Seg Neuts % (Manual) Lymphocytes % (Manual) Monocytes % (Manual) Nucleated RBC % Lymphocytes # (Manual) D-Dimer 1522.26 H Heparin Anti-Xa Level ABG pH POC ABG pCO2 POC ABG pO2 45.5 L 69.9 L ABG pO2 ABG Hemoglobin ABG Oxyhemoglobin 78.6 L 90.2 L ABG Sodium ABG Potassium ABG Chloride 111.0 H ABG Glucose 156 H 148 H Carboxyhemoglobin Sodium Potassium Chloride Carbon Dioxide BUN Creatinine Glucose POC Glucose Lactic Acid Calcium Phosphorus Magnesium AST ALT Total Creatine Kinase CK-MB (CK-2) Troponin T Total Protein Albumin Triglycerides Cholesterol LDL Cholesterol Direct HDL Cholesterol TSH Arterial Blood Glucose 156 H 148 H Arterial Blood Ionized Calcium 4.5 L Urine WBC (Auto) Urine Creatinine Urine Total Protein 04/21/21 04/21/21 04/22/21 16:32 16:32 00:32 RBC 5.22 H Hgb 16.2 H 14.8 H Hct 48.6 H 44.4 H MCV RDW 15.8 H Plt Count Lymph % (Auto) [place] % (Auto) Lymph # (Auto) Seg Neutrophils % Seg Neuts % (Manual) 79.0 H Lymphocytes % (Manual) 13.0 L Monocytes % (Manual) 8.0 H Nucleated RBC % Lymphocytes # (Manual) 1.1 L D-Dimer Heparin Anti-Xa Level ABG pH POC ABG pCO2 POC ABG pO2 ABG pO2 ABG Hemoglobin ABG Oxyhemoglobin ABG Sodium ABG Potassium ABG Chloride ABG Glucose Carboxyhemoglobin Sodium Potassium Chloride Carbon Dioxide 21 L BUN 24 H Creatinine 1.3 H Glucose 130 H POC Glucose Lactic Acid Calcium Phosphorus Magnesium AST 129 H ALT 61 H Total Creatine Kinase 3055 H CK-MB (CK-2) 22.4 H Troponin T 0.055 H Total Protein Albumin 3.6 L Triglycerides 235 H Cholesterol 220 H LDL Cholesterol Direct 142 H HDL Cholesterol 36 L TSH Arterial Blood Glucose Arterial Blood Ionized Calcium Urine WBC (Auto) Urine Creatinine Urine Total Protein 04/22/21 04/22/21 04/22/21 03:27 05:29 05:29 RBC Hgb 15.4 H Hct 45.8 H MCV RDW 16.0 H Plt Count Lymph % (Auto) 12.0 L [place] % (Auto) 8.0 H Lymph # (Auto) 1.1 L Seg Neutrophils % 76.3 H Seg Neuts % (Manual) Lymphocytes % (Manual) Monocytes % (Manual) Nucleated RBC % Lymphocytes # (Manual) D-Dimer Heparin Anti-Xa Level ABG pH POC ABG pCO2 POC ABG pO2 ABG pO2 ABG Hemoglobin ABG Oxyhemoglobin ABG Sodium ABG Potassium 4.7 H ABG Chloride 109.0 H ABG Glucose 155 H Carboxyhemoglobin 0.4 L Sodium Potassium 6.3 H* D Chloride Carbon Dioxide BUN 26 H Creatinine Glucose 134 H POC Glucose Lactic Acid Calcium Phosphorus Magnesium AST 123 H ALT Total Creatine Kinase CK-MB (CK-2) Troponin T Total Protein Albumin 3.6 L Triglycerides Cholesterol LDL Cholesterol Direct HDL Cholesterol TSH Arterial Blood Glucose 155 H Arterial Blood Ionized Calcium Urine WBC (Auto) Urine Creatinine Urine Total Protein 04/22/21 04/22/21 04/22/21 13:03 13:25 17:30 RBC Hgb Hct MCV RDW Plt Count Lymph % (Auto) [place] % (Auto) Lymph # (Auto) Seg Neutrophils % Seg Neuts % (Manual) Lymphocytes % (Manual) Monocytes % (Manual) Nucleated RBC % Lymphocytes # (Manual) D-Dimer Heparin Anti-Xa Level ABG pH 7.343 L POC ABG pCO2 POC ABG pO2 ABG pO2 99.6 H ABG Hemoglobin ABG Oxyhemoglobin ABG Sodium ABG Potassium ABG Chloride ABG Glucose Carboxyhemoglobin Sodium Potassium Chloride Carbon Dioxide BUN Creatinine Glucose POC Glucose Lactic Acid Calcium Phosphorus Magnesium AST ALT Total Creatine Kinase 2322 H CK-MB (CK-2) Troponin T Total Protein Albumin Triglycerides Cholesterol LDL Cholesterol Direct HDL Cholesterol TSH Arterial Blood Glucose Arterial Blood Ionized Calcium Urine WBC (Auto) Urine Creatinine 138.9 H Urine Total Protein 86 H 04/22/21 04/23/21 04/23/21 20:00 04:42 09:53 RBC Hgb Hct MCV RDW Plt Count Lymph % (Auto) [place] % (Auto) Lymph # (Auto) Seg Neutrophils % Seg Neuts % (Manual) Lymphocytes % (Manual) Monocytes % (Manual) Nucleated RBC % Lymphocytes # (Manual) D-Dimer Heparin Anti-Xa Level 2.00 H < 0.10 L ABG pH POC ABG pCO2 POC ABG pO2 ABG pO2 ABG Hemoglobin ABG Oxyhemoglobin 83.2 L ABG Sodium ABG Potassium ABG Chloride 113.0 H ABG Glucose 107 H Carboxyhemoglobin Sodium Potassium Chloride Carbon Dioxide BUN Creatinine Glucose POC Glucose Lactic Acid Calcium Phosphorus Magnesium AST ALT Total Creatine Kinase CK-MB (CK-2) Troponin T Total Protein Albumin Triglycerides Cholesterol LDL Cholesterol Direct HDL Cholesterol TSH Arterial Blood Glucose 107 H Arterial Blood Ionized Calcium Urine WBC (Auto) Urine Creatinine Urine Total Protein 04/23/21 04/23/21 04/23/21 14:21 14:21 15:11 RBC Hgb Hct MCV RDW 16.3 H Plt Count Lymph % (Auto) [place] % (Auto) Lymph # (Auto) Seg Neutrophils % Seg Neuts % (Manual) Lymphocytes % (Manual) Monocytes % (Manual) Nucleated RBC % Lymphocytes # (Manual) D-Dimer Heparin Anti-Xa Level ABG pH POC ABG pCO2 POC ABG pO2 68.6 L ABG pO2 ABG Hemoglobin ABG Oxyhemoglobin 91.3 L ABG Sodium ABG Potassium ABG Chloride 113.0 H ABG Glucose 100 H Carboxyhemoglobin Sodium Potassium Chloride 113.1 H Carbon Dioxide 20 L BUN 18 H Creatinine Glucose POC Glucose Lactic Acid Calcium 8.2 L Phosphorus Magnesium AST 59 H ALT Total Creatine Kinase 681 H CK-MB (CK-2) Troponin T Total Protein 5.5 L Albumin 2.3 L Triglycerides Cholesterol LDL Cholesterol Direct HDL Cholesterol TSH Arterial Blood Glucose 100 H Arterial Blood Ionized Calcium Urine WBC (Auto) Urine Creatinine Urine Total Protein 04/23/21 04/24/21 04/24/21 18:30 04:00 05:37 RBC Hgb Hct MCV RDW Plt Count Lymph % (Auto) [place] % (Auto) Lymph # (Auto) Seg Neutrophils % Seg Neuts % (Manual) Lymphocytes % (Manual) Monocytes % (Manual) Nucleated RBC % Lymphocytes # (Manual) D-Dimer Heparin Anti-Xa Level 1.84 H ABG pH POC ABG pCO2 POC ABG pO2 51.9 L ABG pO2 ABG Hemoglobin ABG Oxyhemoglobin 84.9 L ABG Sodium ABG Potassium ABG Chloride 112.0 H ABG Glucose 138 H Carboxyhemoglobin Sodium Potassium Chloride Carbon Dioxide BUN Creatinine Glucose POC Glucose 108 H Lactic Acid Calcium Phosphorus Magnesium AST ALT Total Creatine Kinase CK-MB (CK-2) Troponin T Total Protein Albumin Triglycerides Cholesterol LDL Cholesterol Direct HDL Cholesterol TSH Arterial Blood Glucose 138 H Arterial Blood Ionized Calcium Urine WBC (Auto) Urine Creatinine Urine Total Protein 04/24/21 04/24/21 04/24/21 10:00 10:00 10:14 RBC Hgb Hct MCV RDW 16.0 H Plt Count Lymph % (Auto) [place] % (Auto) Lymph # (Auto) Seg Neutrophils % Seg Neuts % (Manual) Lymphocytes % (Manual) Monocytes % (Manual) Nucleated RBC % Lymphocytes # (Manual) D-Dimer Heparin Anti-Xa Level 0.84 H ABG pH POC ABG pCO2 POC ABG pO2 ABG pO2 ABG Hemoglobin ABG Oxyhemoglobin ABG Sodium ABG Potassium ABG Chloride ABG Glucose Carboxyhemoglobin Sodium Potassium Chloride 109.9 H Carbon Dioxide BUN Creatinine Glucose 118 H POC Glucose Lactic Acid Calcium Phosphorus 2.00 L Magnesium 2.40 H AST 59 H ALT Total Creatine Kinase 396 H CK-MB (CK-2) Troponin T Total Protein 5.5 L Albumin 2.4 L Triglycerides Cholesterol LDL Cholesterol Direct HDL Cholesterol TSH Arterial Blood Glucose Arterial Blood Ionized Calcium Urine WBC (Auto) Urine Creatinine Urine Total Protein 04/24/21 04/24/21 04/24/21 11:14 12:00 15:23 RBC Hgb Hct MCV RDW Plt Count Lymph % (Auto) [place] % (Auto) Lymph # (Auto) Seg Neutrophils % Seg Neuts % (Manual) Lymphocytes % (Manual) Monocytes % (Manual) Nucleated RBC % Lymphocytes # (Manual) D-Dimer Heparin Anti-Xa Level ABG pH 7.287 L POC ABG pCO2 54.3 H POC ABG pO2 58.2 L 67.5 L ABG pO2 ABG Hemoglobin ABG Oxyhemoglobin 88.3 L 89.9 L ABG Sodium ABG Potassium ABG Chloride 111.0 H 110.0 H ABG Glucose 117 H 126 H Carboxyhemoglobin 0.3 L Sodium Potassium Chloride Carbon Dioxide BUN Creatinine Glucose POC Glucose 112 H Lactic Acid Calcium Phosphorus Magnesium AST ALT Total Creatine Kinase CK-MB (CK-2) Troponin T Total Protein Albumin Triglycerides Cholesterol LDL Cholesterol Direct HDL Cholesterol TSH Arterial Blood Glucose 117 H 126 H Arterial Blood Ionized Calcium Urine WBC (Auto) Urine Creatinine Urine Total Protein 04/24/21 04/24/21 04/24/21 17:58 18:00 22:56 RBC Hgb Hct MCV RDW Plt Count Lymph % (Auto) [place] % (Auto) Lymph # (Auto) Seg Neutrophils % Seg Neuts % (Manual) Lymphocytes % (Manual) Monocytes % (Manual) Nucleated RBC % Lymphocytes # (Manual) D-Dimer Heparin Anti-Xa Level ABG pH POC ABG pCO2 POC ABG pO2 53.3 L ABG pO2 ABG Hemoglobin ABG Oxyhemoglobin 86.2 L ABG Sodium ABG Potassium ABG Chloride 111.0 H ABG Glucose 115 H Carboxyhemoglobin 0.4 L Sodium Potassium Chloride Carbon Dioxide BUN Creatinine Glucose POC Glucose 106 H 131 H Lactic Acid Calcium Phosphorus Magnesium AST ALT Total Creatine Kinase CK-MB (CK-2) Troponin T Total Protein Albumin Triglycerides Cholesterol LDL Cholesterol Direct HDL Cholesterol TSH Arterial Blood Glucose 115 H Arterial Blood Ionized Calcium Urine WBC (Auto) Urine Creatinine Urine Total Protein 04/25/21 04/25/21 04/25/21 04:00 07:42 10:50 RBC Hgb Hct MCV RDW Plt Count Lymph % (Auto) [place] % (Auto) Lymph # (Auto) Seg Neutrophils % Seg Neuts % (Manual) Lymphocytes % (Manual) Monocytes % (Manual) Nucleated RBC % Lymphocytes # (Manual) D-Dimer Heparin Anti-Xa Level ABG pH POC ABG pCO2 POC ABG pO2 48.5 L 56.5 L ABG pO2 ABG Hemoglobin 10.6 L 10.4 L ABG Oxyhemoglobin 79.4 L 86.8 L ABG Sodium ABG Potassium ABG Chloride 111.0 H 112.0 H ABG Glucose 115 H 124 H Carboxyhemoglobin 0.2 L Sodium 146 H Potassium Chloride 111.3 H Carbon Dioxide BUN Creatinine Glucose 128 H POC Glucose Lactic Acid Calcium Phosphorus Magnesium AST ALT Total Creatine Kinase CK-MB (CK-2) Troponin T Total Protein Albumin Triglycerides Cholesterol LDL Cholesterol Direct HDL Cholesterol TSH Arterial Blood Glucose 115 H 124 H Arterial Blood Ionized Calcium Urine WBC (Auto) Urine Creatinine Urine Total Protein 04/25/21 04/25/21 04/25/21 11:12 13:55 16:05 RBC Hgb Hct MCV RDW Plt Count Lymph % (Auto) [place] % (Auto) Lymph # (Auto) Seg Neutrophils % Seg Neuts % (Manual) Lymphocytes % (Manual) Monocytes % (Manual) Nucleated RBC % Lymphocytes # (Manual) D-Dimer Heparin Anti-Xa Level ABG pH POC ABG pCO2 POC ABG pO2 46.7 L 53.7 L ABG pO2 ABG Hemoglobin 10.7 L 11.1 L ABG Oxyhemoglobin 81.3 L 85.6 L ABG Sodium ABG Potassium ABG Chloride 111.0 H 111.0 H ABG Glucose 158 H 185 H Carboxyhemoglobin 0.4 L Sodium Potassium Chloride Carbon Dioxide BUN Creatinine Glucose POC Glucose 136 H Lactic Acid Calcium Phosphorus Magnesium AST ALT Total Creatine Kinase CK-MB (CK-2) Troponin T Total Protein Albumin Triglycerides Cholesterol LDL Cholesterol Direct HDL Cholesterol TSH Arterial Blood Glucose 158 H 185 H Arterial Blood Ionized Calcium Urine WBC (Auto) Urine Creatinine Urine Total Protein 04/25/21 04/25/21 04/26/21 17:39 23:18 05:06 RBC Hgb Hct MCV RDW Plt Count Lymph % (Auto) [place] % (Auto) Lymph # (Auto) Seg Neutrophils % Seg Neuts % (Manual) Lymphocytes % (Manual) Monocytes % (Manual) Nucleated RBC % Lymphocytes # (Manual) D-Dimer Heparin Anti-Xa Level ABG pH POC ABG pCO2 POC ABG pO2 ABG pO2 ABG Hemoglobin ABG Oxyhemoglobin ABG Sodium ABG Potassium ABG Chloride ABG Glucose Carboxyhemoglobin Sodium Potassium Chloride Carbon Dioxide BUN Creatinine Glucose POC Glucose 155 H 158 H 134 H Lactic Acid Calcium Phosphorus Magnesium AST ALT Total Creatine Kinase CK-MB (CK-2) Troponin T Total Protein Albumin Triglycerides Cholesterol LDL Cholesterol Direct HDL Cholesterol TSH Arterial Blood Glucose Arterial Blood Ionized Calcium Urine WBC (Auto) Urine Creatinine Urine Total Protein 04/26/21 04/26/21 04/26/21 05:22 12:20 13:16 RBC Hgb Hct MCV RDW Plt Count Lymph % (Auto) [place] % (Auto) Lymph # (Auto) Seg Neutrophils % Seg Neuts % (Manual) Lymphocytes % (Manual) Monocytes % (Manual) Nucleated RBC % Lymphocytes # (Manual) D-Dimer Heparin Anti-Xa Level ABG pH POC ABG pCO2 POC ABG pO2 52.2 L 53.9 L ABG pO2 ABG Hemoglobin 10.9 L 11.5 L ABG Oxyhemoglobin 86.5 L 86.4 L ABG Sodium 145.8 H ABG Potassium 4.6 H ABG Chloride 114.0 H 112.0 H ABG Glucose 144 H 162 H Carboxyhemoglobin 0.4 L 0.4 L Sodium Potassium Chloride Carbon Dioxide BUN Creatinine Glucose POC Glucose 160 H Lactic Acid Calcium Phosphorus Magnesium AST ALT Total Creatine Kinase CK-MB (CK-2) Troponin T Total Protein Albumin Triglycerides Cholesterol LDL Cholesterol Direct HDL Cholesterol TSH Arterial Blood Glucose 144 H 162 H Arterial Blood Ionized Calcium Urine WBC (Auto) Urine Creatinine Urine Total Protein 04/26/21 04/26/21 04/26/21 14:09 18:42 23:30 RBC Hgb Hct MCV RDW Plt Count Lymph % (Auto) [place] % (Auto) Lymph # (Auto) Seg Neutrophils % Seg Neuts % (Manual) Lymphocytes % (Manual) Monocytes % (Manual) Nucleated RBC % Lymphocytes # (Manual) D-Dimer Heparin Anti-Xa Level ABG pH POC ABG pCO2 POC ABG pO2 55.3 L ABG pO2 ABG Hemoglobin 11.6 L ABG Oxyhemoglobin 87.2 L ABG Sodium 146.6 H ABG Potassium ABG Chloride 111.0 H ABG Glucose 165 H Carboxyhemoglobin Sodium Potassium Chloride Carbon Dioxide BUN Creatinine Glucose POC Glucose 161 H 163 H Lactic Acid Calcium Phosphorus Magnesium AST ALT Total Creatine Kinase CK-MB (CK-2) Troponin T Total Protein Albumin Triglycerides Cholesterol LDL Cholesterol Direct HDL Cholesterol TSH Arterial Blood Glucose 165 H Arterial Blood Ionized Calcium Urine WBC (Auto) Urine Creatinine Urine Total Protein 04/27/21 04/27/21 04/27/21 03:51 05:14 06:25 RBC 3.64 L Hgb Hct MCV RDW 16.2 H Plt Count Lymph % (Auto) [place] % (Auto) Lymph # (Auto) Seg Neutrophils % Seg Neuts % (Manual) Lymphocytes % (Manual) Monocytes % (Manual) Nucleated RBC % Lymphocytes # (Manual) D-Dimer Heparin Anti-Xa Level ABG pH POC ABG pCO2 52.9 H POC ABG pO2 60.8 L ABG pO2 ABG Hemoglobin 11.9 L ABG Oxyhemoglobin 87.9 L ABG Sodium 147.8 H ABG Potassium ABG Chloride 111.0 H ABG Glucose 183 H Carboxyhemoglobin Sodium Potassium Chloride Carbon Dioxide BUN Creatinine Glucose POC Glucose 165 H Lactic Acid Calcium Phosphorus Magnesium AST ALT Total Creatine Kinase CK-MB (CK-2) Troponin T Total Protein Albumin Triglycerides Cholesterol LDL Cholesterol Direct HDL Cholesterol TSH Arterial Blood Glucose 183 H Arterial Blood Ionized Calcium Urine WBC (Auto) Urine Creatinine Urine Total Protein 04/27/21 04/27/21 04/27/21 06:25 11:45 17:41 RBC Hgb Hct MCV RDW Plt Count Lymph % (Auto) [place] % (Auto) Lymph # (Auto) Seg Neutrophils % Seg Neuts % (Manual) Lymphocytes % (Manual) Monocytes % (Manual) Nucleated RBC % Lymphocytes # (Manual) D-Dimer Heparin Anti-Xa Level ABG pH POC ABG pCO2 POC ABG pO2 ABG pO2 ABG Hemoglobin ABG Oxyhemoglobin ABG Sodium ABG Potassium ABG Chloride ABG Glucose Carboxyhemoglobin Sodium 148 H Potassium 5.1 H D Chloride 109.0 H Carbon Dioxide BUN 35 H Creatinine Glucose 170 H POC Glucose 184 H 172 H Lactic Acid Calcium Phosphorus Magnesium AST 48 H ALT Total Creatine Kinase CK-MB (CK-2) Troponin T Total Protein Albumin 2.4 L Triglycerides Cholesterol LDL Cholesterol Direct HDL Cholesterol TSH Arterial Blood Glucose Arterial Blood Ionized Calcium Urine WBC (Auto) Urine Creatinine Urine Total Protein 04/27/21 04/28/21 04/28/21 23:16 03:23 04:00 RBC Hgb Hct MCV RDW Plt Count Lymph % (Auto) [place] % (Auto) Lymph # (Auto) Seg Neutrophils % Seg Neuts % (Manual) Lymphocytes % (Manual) Monocytes % (Manual) Nucleated RBC % Lymphocytes # (Manual) D-Dimer Heparin Anti-Xa Level ABG pH POC ABG pCO2 55.9 H POC ABG pO2 76.2 L ABG pO2 ABG Hemoglobin 11.5 L ABG Oxyhemoglobin 92.9 L ABG Sodium 153.3 H ABG Potassium 3.2 L ABG Chloride 115.0 H ABG Glucose 154 H Carboxyhemoglobin Sodium 154 H Potassium 3.5 L D Chloride 114.4 H Carbon Dioxide 31 H BUN 32 H Creatinine Glucose 148 H POC Glucose 142 H Lactic Acid Calcium Phosphorus Magnesium AST ALT Total Creatine Kinase CK-MB (CK-2) Troponin T Total Protein 6.0 L Albumin 2.4 L Triglycerides Cholesterol LDL Cholesterol Direct HDL Cholesterol TSH Arterial Blood Glucose 154 H Arterial Blood Ionized Calcium Urine WBC (Auto) Urine Creatinine Urine Total Protein 04/28/21 04/28/21 04/28/21 04:45 06:05 11:57 RBC Hgb Hct MCV RDW 16.1 H Plt Count Lymph % (Auto) [place] % (Auto) Lymph # (Auto) Seg Neutrophils % Seg Neuts % (Manual) Lymphocytes % (Manual) Monocytes % (Manual) Nucleated RBC % Lymphocytes # (Manual) D-Dimer Heparin Anti-Xa Level ABG pH POC ABG pCO2 POC ABG pO2 ABG pO2 ABG Hemoglobin ABG Oxyhemoglobin ABG Sodium ABG Potassium ABG Chloride ABG Glucose Carboxyhemoglobin Sodium Potassium Chloride Carbon Dioxide BUN Creatinine Glucose POC Glucose 153 H 109 H Lactic Acid Calcium Phosphorus Magnesium AST ALT Total Creatine Kinase CK-MB (CK-2) Troponin T Total Protein Albumin Triglycerides Cholesterol LDL Cholesterol Direct HDL Cholesterol TSH Arterial Blood Glucose Arterial Blood Ionized Calcium Urine WBC (Auto) Urine Creatinine Urine Total Protein 04/28/21 04/28/21 04/29/21 17:39 23:58 03:51 RBC Hgb Hct MCV RDW Plt Count Lymph % (Auto) [place] % (Auto) Lymph # (Auto) Seg Neutrophils % Seg Neuts % (Manual) Lymphocytes % (Manual) Monocytes % (Manual) Nucleated RBC % Lymphocytes # (Manual) D-Dimer Heparin Anti-Xa Level ABG pH POC ABG pCO2 54.7 H POC ABG pO2 68.6 L ABG pO2 ABG Hemoglobin 11.9 L ABG Oxyhemoglobin 91.7 L ABG Sodium 148.2 H ABG Potassium ABG Chloride 112.0 H ABG Glucose 136 H Carboxyhemoglobin Sodium Potassium Chloride Carbon Dioxide BUN Creatinine Glucose POC Glucose 145 H 164 H Lactic Acid Calcium Phosphorus Magnesium AST ALT Total Creatine Kinase CK-MB (CK-2) Troponin T Total Protein Albumin Triglycerides Cholesterol LDL Cholesterol Direct HDL Cholesterol TSH Arterial Blood Glucose 136 H Arterial Blood Ionized Calcium Urine WBC (Auto) Urine Creatinine Urine Total Protein 04/29/21 04/29/21 04/29/21 05:35 05:55 11:29 RBC Hgb Hct MCV RDW Plt Count Lymph % (Auto) [place] % (Auto) Lymph # (Auto) Seg Neutrophils % Seg Neuts % (Manual) Lymphocytes % (Manual) Monocytes % (Manual) Nucleated RBC % Lymphocytes # (Manual) D-Dimer Heparin Anti-Xa Level ABG pH POC ABG pCO2 POC ABG pO2 ABG pO2 ABG Hemoglobin ABG Oxyhemoglobin ABG Sodium ABG Potassium ABG Chloride ABG Glucose Carboxyhemoglobin Sodium 149 H Potassium Chloride 110.9 H Carbon Dioxide BUN 34 H Creatinine Glucose 136 H POC Glucose 128 H 206 H Lactic Acid Calcium Phosphorus Magnesium AST ALT Total Creatine Kinase CK-MB (CK-2) Troponin T Total Protein Albumin Triglycerides Cholesterol LDL Cholesterol Direct HDL Cholesterol TSH Arterial Blood Glucose Arterial Blood Ionized Calcium Urine WBC (Auto) Urine Creatinine Urine Total Protein 04/29/21 04/29/21 04/30/21 18:04 23:42 00:55 RBC Hgb Hct MCV RDW Plt Count Lymph % (Auto) [place] % (Auto) Lymph # (Auto) Seg Neutrophils % Seg Neuts % (Manual) Lymphocytes % (Manual) Monocytes % (Manual) Nucleated RBC % Lymphocytes # (Manual) D-Dimer Heparin Anti-Xa Level ABG pH POC ABG pCO2 POC ABG pO2 ABG pO2 ABG Hemoglobin ABG Oxyhemoglobin ABG Sodium ABG Potassium ABG Chloride ABG Glucose Carboxyhemoglobin Sodium Potassium 5.1 H D Chloride Carbon Dioxide BUN Creatinine Glucose POC Glucose 146 H 146 H Lactic Acid Calcium Phosphorus Magnesium AST ALT Total Creatine Kinase CK-MB (CK-2) Troponin T Total Protein Albumin Triglycerides Cholesterol LDL Cholesterol Direct HDL Cholesterol TSH Arterial Blood Glucose Arterial Blood Ionized Calcium Urine WBC (Auto) Urine Creatinine Urine Total Protein 04/30/21 04/30/21 04/30/21 05:00 05:34 07:40 RBC Hgb Hct MCV RDW Plt Count Lymph % (Auto) [place] % (Auto) Lymph # (Auto) Seg Neutrophils % Seg Neuts % (Manual) Lymphocytes % (Manual) Monocytes % (Manual) Nucleated RBC % Lymphocytes # (Manual) D-Dimer Heparin Anti-Xa Level ABG pH POC ABG pCO2 55.6 H POC ABG pO2 62.4 L ABG pO2 ABG Hemoglobin ABG Oxyhemoglobin 90.1 L ABG Sodium 146.8 H ABG Potassium ABG Chloride 109.0 H ABG Glucose 124 H Carboxyhemoglobin Sodium 149 H Potassium Chloride 109.5 H Carbon Dioxide 35 H BUN 33 H Creatinine Glucose 126 H POC Glucose 122 H Lactic Acid Calcium Phosphorus Magnesium 2.60 H AST ALT Total Creatine Kinase CK-MB (CK-2) Troponin T Total Protein 5.8 L Albumin 2.2 L Triglycerides 332 H Cholesterol LDL Cholesterol Direct HDL Cholesterol TSH Arterial Blood Glucose 124 H Arterial Blood Ionized Calcium Urine WBC (Auto) Urine Creatinine Urine Total Protein 04/30/21 04/30/21 04/30/21 07:40 11:12 17:00 RBC Hgb Hct MCV RDW 16.3 H Plt Count Lymph % (Auto) [place] % (Auto) Lymph # (Auto) Seg Neutrophils % 88.4 H Seg Neuts % (Manual) 82.0 H Lymphocytes % (Manual) 5.0 L Monocytes % (Manual) Nucleated RBC % Lymphocytes # (Manual) 0.4 L D-Dimer Heparin Anti-Xa Level ABG pH POC ABG pCO2 POC ABG pO2 ABG pO2 ABG Hemoglobin ABG Oxyhemoglobin ABG Sodium ABG Potassium ABG Chloride ABG Glucose Carboxyhemoglobin Sodium Potassium Chloride Carbon Dioxide BUN Creatinine Glucose POC Glucose 127 H Lactic Acid Calcium Phosphorus Magnesium AST ALT Total Creatine Kinase CK-MB (CK-2) Troponin T Total Protein Albumin Triglycerides 304 H Cholesterol LDL Cholesterol Direct HDL Cholesterol TSH Arterial Blood Glucose Arterial Blood Ionized Calcium Urine WBC (Auto) Urine Creatinine Urine Total Protein 04/30/21 04/30/21 05/01/21 18:17 23:25 03:33 RBC Hgb Hct MCV RDW Plt Count Lymph % (Auto) [place] % (Auto) Lymph # (Auto) Seg Neutrophils % Seg Neuts % (Manual) Lymphocytes % (Manual) Monocytes % (Manual) Nucleated RBC % Lymphocytes # (Manual) D-Dimer Heparin Anti-Xa Level ABG pH 7.275 L POC ABG pCO2 85.0 H POC ABG pO2 ABG pO2 ABG Hemoglobin ABG Oxyhemoglobin ABG Sodium ABG Potassium 5.0 H ABG Chloride ABG Glucose 150 H Carboxyhemoglobin Sodium Potassium Chloride Carbon Dioxide BUN Creatinine Glucose POC Glucose 151 H 143 H Lactic Acid Calcium Phosphorus Magnesium AST ALT Total Creatine Kinase CK-MB (CK-2) Troponin T Total Protein Albumin Triglycerides Cholesterol LDL Cholesterol Direct HDL Cholesterol TSH Arterial Blood Glucose 150 H Arterial Blood Ionized Calcium Urine WBC (Auto) Urine Creatinine Urine Total Protein 05/01/21 05/01/21 05/01/21 04:55 05:08 05:08 RBC Hgb Hct MCV RDW 16.7 H Plt Count Lymph % (Auto) [place] % (Auto) Lymph # (Auto) Seg Neutrophils % Seg Neuts % (Manual) Lymphocytes % (Manual) Monocytes % (Manual) Nucleated RBC % Lymphocytes # (Manual) D-Dimer Heparin Anti-Xa Level ABG pH POC ABG pCO2 POC ABG pO2 ABG pO2 ABG Hemoglobin ABG Oxyhemoglobin ABG Sodium ABG Potassium ABG Chloride ABG Glucose Carboxyhemoglobin Sodium Potassium 5.3 H D Chloride Carbon Dioxide 36 H BUN 39 H Creatinine Glucose 150 H POC Glucose 138 H Lactic Acid Calcium Phosphorus Magnesium AST ALT Total Creatine Kinase CK-MB (CK-2) Troponin T Total Protein Albumin Triglycerides Cholesterol LDL Cholesterol Direct HDL Cholesterol TSH Arterial Blood Glucose Arterial Blood Ionized Calcium Urine WBC (Auto) Urine Creatinine Urine Total Protein 05/01/21 05/01/21 05/01/21 11:46 14:30 17:08 RBC Hgb Hct MCV RDW Plt Count Lymph % (Auto) [place] % (Auto) Lymph # (Auto) Seg Neutrophils % Seg Neuts % (Manual) Lymphocytes % (Manual) Monocytes % (Manual) Nucleated RBC % Lymphocytes # (Manual) D-Dimer Heparin Anti-Xa Level ABG pH POC ABG pCO2 POC ABG pO2 ABG pO2 ABG Hemoglobin ABG Oxyhemoglobin ABG Sodium ABG Potassium ABG Chloride ABG Glucose Carboxyhemoglobin Sodium Potassium Chloride Carbon Dioxide BUN Creatinine Glucose POC Glucose 159 H 206 H Lactic Acid Calcium Phosphorus Magnesium 2.60 H AST ALT Total Creatine Kinase CK-MB (CK-2) Troponin T Total Protein Albumin Triglycerides Cholesterol LDL Cholesterol Direct HDL Cholesterol TSH Arterial Blood Glucose Arterial Blood Ionized Calcium Urine WBC (Auto) Urine Creatinine Urine Total Protein 05/01/21 05/02/21 05/02/21 23:21 04:00 05:32 RBC Hgb Hct MCV RDW Plt Count Lymph % (Auto) [place] % (Auto) Lymph # (Auto) Seg Neutrophils % Seg Neuts % (Manual) Lymphocytes % (Manual) Monocytes % (Manual) Nucleated RBC % Lymphocytes # (Manual) D-Dimer Heparin Anti-Xa Level ABG pH 7.213 L POC ABG pCO2 123.0 H POC ABG pO2 69.9 L ABG pO2 ABG Hemoglobin ABG Oxyhemoglobin 90.0 L ABG Sodium 148.1 H ABG Potassium 5.2 H ABG Chloride ABG Glucose 205 H Carboxyhemoglobin 1.9 H Sodium Potassium Chloride Carbon Dioxide BUN Creatinine Glucose POC Glucose 176 H 184 H Lactic Acid Calcium Phosphorus Magnesium AST ALT Total Creatine Kinase CK-MB (CK-2) Troponin T Total Protein Albumin Triglycerides Cholesterol LDL Cholesterol Direct HDL Cholesterol TSH Arterial Blood Glucose 205 H Arterial Blood Ionized Calcium Urine WBC (Auto) Urine Creatinine Urine Total Protein 05/02/21 05/02/21 05/02/21 06:57 06:57 08:00 RBC Hgb Hct MCV RDW 17.5 H Plt Count Lymph % (Auto) [place] % (Auto) Lymph # (Auto) Seg Neutrophils % Seg Neuts % (Manual) 84.0 H Lymphocytes % (Manual) 6.0 L Monocytes % (Manual) Nucleated RBC % 1.0 H Lymphocytes # (Manual) 0.6 L D-Dimer Heparin Anti-Xa Level ABG pH 7.267 L POC ABG pCO2 102.9 H POC ABG pO2 81.4 L ABG pO2 ABG Hemoglobin ABG Oxyhemoglobin 93.6 L ABG Sodium 148.0 H ABG Potassium 5.4 H ABG Chloride ABG Glucose 249 H Carboxyhemoglobin Sodium 148 H Potassium 5.6 H Chloride Carbon Dioxide 40 H BUN 36 H Creatinine Glucose 227 H POC Glucose Lactic Acid Calcium Phosphorus 2.20 L Magnesium 2.80 H AST 41 H ALT Total Creatine Kinase CK-MB (CK-2) Troponin T Total Protein Albumin 2.7 L Triglycerides Cholesterol LDL Cholesterol Direct HDL Cholesterol TSH Arterial Blood Glucose 249 H Arterial Blood Ionized Calcium Urine WBC (Auto) Urine Creatinine Urine Total Protein 05/02/21 05/02/21 05/02/21 10:52 11:58 15:15 RBC Hgb Hct MCV RDW Plt Count Lymph % (Auto) [place] % (Auto) Lymph # (Auto) Seg Neutrophils % Seg Neuts % (Manual) Lymphocytes % (Manual) Monocytes % (Manual) Nucleated RBC % Lymphocytes # (Manual) D-Dimer Heparin Anti-Xa Level ABG pH 7.260 L POC ABG pCO2 99.9 H POC ABG pO2 74.9 L ABG pO2 ABG Hemoglobin ABG Oxyhemoglobin 92.1 L ABG Sodium 146.4 H ABG Potassium 5.7 H ABG Chloride ABG Glucose 266 H Carboxyhemoglobin Sodium 152 H Potassium 5.4 H Chloride Carbon Dioxide 41 H* BUN 47 H Creatinine Glucose 269 H POC Glucose 268 H Lactic Acid Calcium Phosphorus Magnesium 2.80 H AST ALT Total Creatine Kinase CK-MB (CK-2) Troponin T Total Protein Albumin Triglycerides Cholesterol LDL Cholesterol Direct HDL Cholesterol TSH Arterial Blood Glucose 266 H Arterial Blood Ionized Calcium Urine WBC (Auto) Urine Creatinine Urine Total Protein 05/02/21 05/03/21 05/03/21 18:05 00:06 03:45 RBC Hgb Hct MCV 98 H RDW 17.1 H Plt Count Lymph % (Auto) [place] % (Auto) Lymph # (Auto) Seg Neutrophils % Seg Neuts % (Manual) Lymphocytes % (Manual) 9.0 L Monocytes % (Manual) Nucleated RBC % 6.0 H Lymphocytes # (Manual) 0.8 L D-Dimer Heparin Anti-Xa Level ABG pH POC ABG pCO2 POC ABG pO2 ABG pO2 ABG Hemoglobin ABG Oxyhemoglobin ABG Sodium ABG Potassium ABG Chloride ABG Glucose Carboxyhemoglobin Sodium Potassium Chloride Carbon Dioxide BUN Creatinine Glucose POC Glucose 225 H 230 H Lactic Acid Calcium Phosphorus Magnesium AST ALT Total Creatine Kinase CK-MB (CK-2) Troponin T Total Protein Albumin Triglycerides Cholesterol LDL Cholesterol Direct HDL Cholesterol TSH Arterial Blood Glucose Arterial Blood Ionized Calcium Urine WBC (Auto) Urine Creatinine Urine Total Protein 05/03/21 05/03/21 05/03/21 03:45 04:00 05:29 RBC Hgb Hct MCV RDW Plt Count Lymph % (Auto) [place] % (Auto) Lymph # (Auto) Seg Neutrophils % Seg Neuts % (Manual) Lymphocytes % (Manual) Monocytes % (Manual) Nucleated RBC % Lymphocytes # (Manual) D-Dimer Heparin Anti-Xa Level ABG pH 7.237 L POC ABG pCO2 99.9 H POC ABG pO2 74.8 L ABG pO2 ABG Hemoglobin 11.9 L ABG Oxyhemoglobin 91.9 L ABG Sodium 147.0 H ABG Potassium 5.2 H ABG Chloride ABG Glucose 196 H Carboxyhemoglobin Sodium 151 H Potassium 5.7 H Chloride Carbon Dioxide 40 H BUN 68 H Creatinine 1.8 H D Glucose 200 H POC Glucose 200 H Lactic Acid Calcium Phosphorus Magnesium 3.10 H AST 42 H ALT Total Creatine Kinase CK-MB (CK-2) Troponin T Total Protein Albumin 2.4 L Triglycerides Cholesterol LDL Cholesterol Direct HDL Cholesterol TSH Arterial Blood Glucose 196 H Arterial Blood Ionized Calcium Urine WBC (Auto) Urine Creatinine Urine Total Protein 05/03/21 05/03/21 05/03/21 06:05 10:21 11:36 RBC Hgb Hct MCV RDW Plt Count Lymph % (Auto) [place] % (Auto) Lymph # (Auto) Seg Neutrophils % Seg Neuts % (Manual) Lymphocytes % (Manual) Monocytes % (Manual) Nucleated RBC % Lymphocytes # (Manual) D-Dimer Heparin Anti-Xa Level ABG pH POC ABG pCO2 POC ABG pO2 ABG pO2 ABG Hemoglobin ABG Oxyhemoglobin ABG Sodium ABG Potassium ABG Chloride ABG Glucose Carboxyhemoglobin Sodium Potassium Chloride Carbon Dioxide BUN Creatinine Glucose POC Glucose 197 H Lactic Acid 2.20 H* Calcium Phosphorus Magnesium AST ALT Total Creatine Kinase CK-MB (CK-2) Troponin T Total Protein Albumin Triglycerides Cholesterol LDL Cholesterol Direct HDL Cholesterol TSH 0.051 L Arterial Blood Glucose Arterial Blood Ionized Calcium Urine WBC (Auto) Urine Creatinine Urine Total Protein 05/03/21 05/03/21 05/03/21 15:00 15:27 16:10 RBC Hgb Hct MCV RDW Plt Count Lymph % (Auto) [place] % (Auto) Lymph # (Auto) Seg Neutrophils % Seg Neuts % (Manual) Lymphocytes % (Manual) Monocytes % (Manual) Nucleated RBC % Lymphocytes # (Manual) D-Dimer Heparin Anti-Xa Level ABG pH 7.184 L POC ABG pCO2 120.0 H POC ABG pO2 46.4 L ABG pO2 ABG Hemoglobin 10.4 L ABG Oxyhemoglobin 75.7 L ABG Sodium 148.9 H ABG Potassium ABG Chloride ABG Glucose 157 H Carboxyhemoglobin Sodium 151 H Potassium Chloride Carbon Dioxide 36 H BUN 73 H Creatinine 1.9 H Glucose 155 H POC Glucose Lactic Acid Calcium 10.3 H Phosphorus Magnesium 3.00 H AST ALT Total Creatine Kinase CK-MB (CK-2) Troponin T Total Protein Albumin Triglycerides Cholesterol LDL Cholesterol Direct HDL Cholesterol TSH Arterial Blood Glucose 157 H Arterial Blood Ionized Calcium Urine WBC (Auto) 43.0 H Urine Creatinine Urine Total Protein 05/03/21 05/03/21 05/03/21 16:10 18:03 20:00 RBC Hgb Hct MCV RDW Plt Count Lymph % (Auto) [place] % (Auto) Lymph # (Auto) Seg Neutrophils % Seg Neuts % (Manual) Lymphocytes % (Manual) Monocytes % (Manual) Nucleated RBC % Lymphocytes # (Manual) D-Dimer Heparin Anti-Xa Level ABG pH POC ABG pCO2 82.8 H POC ABG pO2 46.6 L ABG pO2 ABG Hemoglobin 10.4 L ABG Oxyhemoglobin 81.7 L ABG Sodium 154.9 H ABG Potassium 5.5 H ABG Chloride ABG Glucose 152 H Carboxyhemoglobin Sodium Potassium Chloride Carbon Dioxide BUN Creatinine Glucose POC Glucose 108 H Lactic Acid Calcium Phosphorus Magnesium AST ALT Total Creatine Kinase CK-MB (CK-2) Troponin T Total Protein Albumin Triglycerides Cholesterol LDL Cholesterol Direct HDL Cholesterol TSH Arterial Blood Glucose 152 H Arterial Blood Ionized Calcium Urine WBC (Auto) Urine Creatinine 65.6 H Urine Total Protein 05/03/21 05/03/21 05/04/21 22:13 23:17 03:39 RBC Hgb Hct MCV RDW Plt Count Lymph % (Auto) [place] % (Auto) Lymph # (Auto) Seg Neutrophils % Seg Neuts % (Manual) Lymphocytes % (Manual) Monocytes % (Manual) Nucleated RBC % Lymphocytes # (Manual) D-Dimer Heparin Anti-Xa Level ABG pH POC ABG pCO2 94.7 H 88.0 H POC ABG pO2 51.1 L 52.6 L ABG pO2 ABG Hemoglobin 10.6 L 10.3 L ABG Oxyhemoglobin 83.7 L 84.7 L ABG Sodium 156.1 H 157.7 H ABG Potassium 5.6 H 5.2 H ABG Chloride ABG Glucose 181 H 221 H Carboxyhemoglobin Sodium Potassium Chloride Carbon Dioxide BUN Creatinine Glucose POC Glucose 165 H Lactic Acid Calcium Phosphorus Magnesium AST ALT Total Creatine Kinase CK-MB (CK-2) Troponin T Total Protein Albumin Triglycerides Cholesterol LDL Cholesterol Direct HDL Cholesterol TSH Arterial Blood Glucose 181 H 221 H Arterial Blood Ionized Calcium Urine WBC (Auto) Urine Creatinine Urine Total Protein 05/04/21 05/04/21 05/04/21 05:27 07:11 07:11 RBC 3.12 L Hgb 9.5 L Hct 29.8 L D MCV RDW 16.6 H Plt Count Lymph % (Auto) [place] % (Auto) Lymph # (Auto) Seg Neutrophils % Seg Neuts % (Manual) Lymphocytes % (Manual) Monocytes % (Manual) Nucleated RBC % Lymphocytes # (Manual) D-Dimer Heparin Anti-Xa Level ABG pH POC ABG pCO2 POC ABG pO2 ABG pO2 ABG Hemoglobin ABG Oxyhemoglobin ABG Sodium ABG Potassium ABG Chloride ABG Glucose Carboxyhemoglobin Sodium 160 H D Potassium 5.4 H Chloride 109.9 H Carbon Dioxide 45 H* D BUN 75 H Creatinine 1.5 H Glucose 223 H POC Glucose 193 H Lactic Acid Calcium Phosphorus Magnesium 3.10 H AST 44 H ALT Total Creatine Kinase CK-MB (CK-2) Troponin T Total Protein 5.7 L Albumin 2.2 L Triglycerides Cholesterol LDL Cholesterol Direct HDL Cholesterol TSH Arterial Blood Glucose Arterial Blood Ionized Calcium Urine WBC (Auto) Urine Creatinine Urine Total Protein 05/04/21 05/04/21 05/04/21 07:11 11:32 13:27 RBC Hgb Hct MCV RDW Plt Count Lymph % (Auto) [place] % (Auto) Lymph # (Auto) Seg Neutrophils % Seg Neuts % (Manual) Lymphocytes % (Manual) Monocytes % (Manual) Nucleated RBC % Lymphocytes # (Manual) D-Dimer Heparin Anti-Xa Level ABG pH POC ABG pCO2 POC ABG pO2 ABG pO2 ABG Hemoglobin ABG Oxyhemoglobin ABG Sodium ABG Potassium ABG Chloride ABG Glucose Carboxyhemoglobin Sodium Potassium Chloride Carbon Dioxide BUN Creatinine Glucose POC Glucose 276 H Lactic Acid 3.00 H* 3.00 H* Calcium Phosphorus Magnesium AST ALT Total Creatine Kinase CK-MB (CK-2) Troponin T Total Protein Albumin Triglycerides Cholesterol LDL Cholesterol Direct HDL Cholesterol TSH Arterial Blood Glucose Arterial Blood Ionized Calcium Urine WBC (Auto) Urine Creatinine Urine Total Protein 05/04/21 05/04/21 05/04/21 13:27 13:53 16:25 RBC Hgb Hct MCV RDW Plt Count Lymph % (Auto) [place] % (Auto) Lymph # (Auto) Seg Neutrophils % Seg Neuts % (Manual) Lymphocytes % (Manual) Monocytes % (Manual) Nucleated RBC % Lymphocytes # (Manual) D-Dimer Heparin Anti-Xa Level ABG pH 7.275 L POC ABG pCO2 117.3 H 80.8 H POC ABG pO2 69.8 L 55.2 L ABG pO2 ABG Hemoglobin 9.5 L 8.6 L ABG Oxyhemoglobin 89.6 L 86.0 L ABG Sodium 156.2 H 155.9 H ABG Potassium ABG Chloride ABG Glucose 263 H 230 H Carboxyhemoglobin 1.6 H Sodium Potassium Chloride Carbon Dioxide BUN Creatinine Glucose POC Glucose Lactic Acid Calcium Phosphorus Magnesium 3.00 H AST ALT Total Creatine Kinase CK-MB (CK-2) Troponin T Total Protein Albumin Triglycerides Cholesterol LDL Cholesterol Direct HDL Cholesterol TSH Arterial Blood Glucose 263 H 230 H Arterial Blood Ionized Calcium 4.5 L Urine WBC (Auto) Urine Creatinine Urine Total Protein 05/04/21 05/04/21 05/04/21 17:28 22:00 22:00 RBC Hgb Hct MCV RDW Plt Count Lymph % (Auto) [place] % (Auto) Lymph # (Auto) Seg Neutrophils % Seg Neuts % (Manual) Lymphocytes % (Manual) Monocytes % (Manual) Nucleated RBC % Lymphocytes # (Manual) D-Dimer Heparin Anti-Xa Level ABG pH POC ABG pCO2 87.2 H POC ABG pO2 60.7 L ABG pO2 ABG Hemoglobin 8.9 L ABG Oxyhemoglobin 87.8 L ABG Sodium 155.8 H ABG Potassium 4.6 H ABG Chloride ABG Glucose 194 H Carboxyhemoglobin Sodium 159 H Potassium Chloride 110.3 H Carbon Dioxide 44 H* BUN 70 H Creatinine 1.4 H Glucose 200 H POC Glucose 202 H Lactic Acid Calcium Phosphorus Magnesium AST ALT Total Creatine Kinase CK-MB (CK-2) Troponin T Total Protein Albumin Triglycerides Cholesterol LDL Cholesterol Direct HDL Cholesterol TSH Arterial Blood Glucose 194 H Arterial Blood Ionized Calcium Urine WBC (Auto) Urine Creatinine Urine Total Protein 05/04/21 05/05/21 05/05/21 23:12 04:58 04:58 RBC 2.78 L Hgb 8.6 L Hct 27.1 L MCV RDW 17.0 H Plt Count Lymph % (Auto) [place] % (Auto) Lymph # (Auto) Seg Neutrophils % Seg Neuts % (Manual) Lymphocytes % (Manual) Monocytes % (Manual) Nucleated RBC % Lymphocytes # (Manual) D-Dimer Heparin Anti-Xa Level ABG pH POC ABG pCO2 POC ABG pO2 ABG pO2 ABG Hemoglobin ABG Oxyhemoglobin ABG Sodium ABG Potassium ABG Chloride ABG Glucose Carboxyhemoglobin Sodium 161 H* Potassium Chloride 112.6 H Carbon Dioxide 46 H* BUN 67 H Creatinine Glucose 188 H POC Glucose 196 H Lactic Acid Calcium Phosphorus Magnesium 3.00 H AST ALT Total Creatine Kinase CK-MB (CK-2) Troponin T Total Protein Albumin Triglycerides Cholesterol LDL Cholesterol Direct HDL Cholesterol TSH Arterial Blood Glucose Arterial Blood Ionized Calcium Urine WBC (Auto) Urine Creatinine Urine Total Protein 05/05/21 05/05/21 05/05/21 05:11 10:52 11:55 RBC Hgb Hct MCV RDW Plt Count Lymph % (Auto) [place] % (Auto) Lymph # (Auto) Seg Neutrophils % Seg Neuts % (Manual) Lymphocytes % (Manual) Monocytes % (Manual) Nucleated RBC % Lymphocytes # (Manual) D-Dimer Heparin Anti-Xa Level ABG pH POC ABG pCO2 89.7 H POC ABG pO2 60.2 L ABG pO2 ABG Hemoglobin 8.8 L ABG Oxyhemoglobin 86.9 L ABG Sodium 153.6 H ABG Potassium ABG Chloride ABG Glucose 195 H Carboxyhemoglobin Sodium Potassium Chloride Carbon Dioxide BUN Creatinine Glucose POC Glucose 157 H 186 H Lactic Acid Calcium Phosphorus Magnesium AST ALT Total Creatine Kinase CK-MB (CK-2) Troponin T Total Protein Albumin Triglycerides Cholesterol LDL Cholesterol Direct HDL Cholesterol TSH Arterial Blood Glucose 195 H Arterial Blood Ionized Calcium Urine WBC (Auto) Urine Creatinine Urine Total Protein 05/05/21 05/05/21 05/06/21 17:50 23:24 00:05 RBC Hgb Hct MCV RDW Plt Count Lymph % (Auto) [place] % (Auto) Lymph # (Auto) Seg Neutrophils % Seg Neuts % (Manual) Lymphocytes % (Manual) Monocytes % (Manual) Nucleated RBC % Lymphocytes # (Manual) D-Dimer Heparin Anti-Xa Level ABG pH POC ABG pCO2 POC ABG pO2 ABG pO2 ABG Hemoglobin ABG Oxyhemoglobin ABG Sodium ABG Potassium ABG Chloride ABG Glucose Carboxyhemoglobin Sodium 152 H D Potassium Chloride Carbon Dioxide BUN Creatinine Glucose POC Glucose 177 H 227 H Lactic Acid Calcium Phosphorus Magnesium AST ALT Total Creatine Kinase CK-MB (CK-2) Troponin T Total Protein Albumin Triglycerides Cholesterol LDL Cholesterol Direct HDL Cholesterol TSH Arterial Blood Glucose Arterial Blood Ionized Calcium Urine WBC (Auto) Urine Creatinine Urine Total Protein 05/06/21 05/06/21 05/06/21 04:26 05:08 06:17 RBC 2.34 L Hgb 7.2 L Hct 22.7 L MCV RDW 16.8 H Plt Count 139 L Lymph % (Auto) [place] % (Auto) Lymph # (Auto) Seg Neutrophils % Seg Neuts % (Manual) Lymphocytes % (Manual) Monocytes % (Manual) Nucleated RBC % Lymphocytes # (Manual) D-Dimer Heparin Anti-Xa Level ABG pH 7.292 L POC ABG pCO2 93.8 H POC ABG pO2 47.8 L ABG pO2 ABG Hemoglobin 7.9 L ABG Oxyhemoglobin 76.2 L ABG Sodium 145.7 H ABG Potassium ABG Chloride ABG Glucose 245 H Carboxyhemoglobin 1.6 H Sodium Potassium Chloride Carbon Dioxide BUN Creatinine Glucose POC Glucose 252 H Lactic Acid Calcium Phosphorus Magnesium AST ALT Total Creatine Kinase CK-MB (CK-2) Troponin T Total Protein Albumin Triglycerides Cholesterol LDL Cholesterol Direct HDL Cholesterol TSH Arterial Blood Glucose 245 H Arterial Blood Ionized Calcium Urine WBC (Auto) Urine Creatinine Urine Total Protein 05/06/21 06:17 RBC Hgb Hct MCV RDW Plt Count Lymph % (Auto) [place] % (Auto) Lymph # (Auto) Seg Neutrophils % Seg Neuts % (Manual) Lymphocytes % (Manual) Monocytes % (Manual) Nucleated RBC % Lymphocytes # (Manual) D-Dimer Heparin Anti-Xa Level ABG pH POC ABG pCO2 POC ABG pO2 ABG pO2 ABG Hemoglobin ABG Oxyhemoglobin ABG Sodium ABG Potassium ABG Chloride ABG Glucose Carboxyhemoglobin Sodium 150 H Potassium Chloride Carbon Dioxide 47 H* BUN 80 H Creatinine 1.6 H Glucose 264 H POC Glucose Lactic Acid Calcium Phosphorus Magnesium AST ALT Total Creatine Kinase CK-MB (CK-2) Troponin T Total Protein Albumin Triglycerides Cholesterol LDL Cholesterol Direct HDL Cholesterol TSH Arterial Blood Glucose Arterial Blood Ionized Calcium Urine WBC (Auto) Urine Creatinine Urine Total Protein Allied health notes reviewed: nursing
[2021-05-06] MEDS: PHENYLEPHRINE 100 MG in SODIUM CHLORIDE 0.9% 90 ML IV SCH (11:15)
--- NOTE | 2021-05-06 11:22 | XRay Report ---
CHEST 1 VIEW 05/06/2021 10:15 AM INDICATION / CLINICAL INFORMATION: Hypoxemia with hypotension. COMPARISON: 05/05/2021 FINDINGS: SUPPORT DEVICES: Stable, satisfactory device positioning. HEART / MEDIASTINUM: Stable. LUNGS / PLEURA: Stable diffuse bilateral interstitial opacities. No pneumothorax. ADDITIONAL FINDINGS: No significant additional findings. IMPRESSION: 1. No adverse change from the prior exam. Signer Name: Deacon Spangler MD Signed: 05/06/2021 11:18 AM Workstation Name: [id number]
[2021-05-06] MEDS ORDERED: LACTATED RINGERS 1,000 ML IV ONE (11:55)
[2021-05-06] MEDS: VASOPRESSIN 20 UNIT in SODIUM CHLORIDE 0.9% 100 ML IV SCH ×2 (12:43→23:22)
--- NOTE | 2021-05-06 13:11 | Progress Note ---
Assessment and Plan - Patient Problems (1) LIZBETH (acute kidney injury) Current Visit: Yes Status: Acute Plan to address problem: Likely in the setting of acute tubular necrosis and prerenal injury with now worsening volume overload and recurrent acute kidney injury noted on this admission. Agree with hemodynamic management and appropriate pressor support. Unfortunately her overall hemodynamics have worsened over the last 24 hours. Would avoid lasix today and carefully monitor. Overall her prognosis is guarded. (2) Acute respiratory failure with hypoxia Current Visit: Yes Status: Acute Plan to address problem: Chest x-ray reviewed with findings concerning for worsening volume overload and pulmonary edema. FiO2 remains 100% on current vent settings. Patient had responded to previous lasix doses, but with her current worsening hemodynamic parameters, I would avoid further lasix today. (3) Hypotension Current Visit: Yes Status: Acute Plan to address problem: Pressor requirements have unfortunately increased at this time. (4) Hyperkalemia Current Visit: Yes Status: Acute Plan to address problem: Medical management at this time and will closely monitor. (5) Hypernatremia Current Visit: Yes Status: Acute Plan to address problem: On D5W at 100 cc/hr. FWF has been discontinued at this time secondary to findings of abdominal ileus. Per [employer] she did have a BM yesterday. Would reassess and if illeus resolving/improved post OG tube placement. Ideally in her situation given her respiratory status and pulmonary edema noted on chest xray, would want to mi nimize continuous IVF as best we can. Subjective Date of service: 05/06/21 Principal diagnosis: Acute kidney injury, rhabdomyolysis Interval history: Worsening hemodynamics and needs for increased pressor support. Agree with ICU team and would hold off on lasix today given these worsening parameters. Objective - Vital Signs Vital signs: Vital Signs - 12hr 05/06/21 05/06/21 05/06/21 01:16 01:30 01:45 Temperature Pulse Rate 126 H 125 H 124 H Respiratory 16 10 L 10 L Rate Blood Pressure 106/51 100/52 100/52 O2 Sat by Pulse 93 99 Oximetry 05/06/21 05/06/21 05/06/21 02:00 02:16 02:30 Temperature Pulse Rate 124 H 124 H 128 H Respiratory 10 L 10 L 10 L Rate Blood Pressure 102/54 102/54 106/51 O2 Sat by Pulse 99 96 96 Oximetry 08/11/2505/06/21 05/06/21 02:46 03:00 03:16 Temperature Pulse Rate 124 H 115 H 128 H Respiratory 10 L 10 L 10 L Rate Blood Pressure 106/51 106/51 82/41 O2 Sat by Pulse 88 87 Oximetry 05/06/21 05/06/21 05/06/21 03:30 03:45 04:00 Temperature 100.4 F H Pulse Rate 129 H 132 H 127 H Respiratory 10 L 10 L 10 L Rate Blood Pressure 129/59 121/55 107/54 O2 Sat by Pulse 91 95 99 Oximetry 05/06/21 05/06/21 05/06/21 04:15 04:30 04:45 Temperature Pulse Rate 129 H 129 H 129 H Respiratory 10 L 10 L 10 L Rate Blood Pressure 116/58 112/52 93/60 O2 Sat by Pulse 94 100 95 Oximetry 05/06/21 05/06/21 05/06/21 05:00 05:15 05:30 Temperature Pulse Rate 127 H 125 H 126 H Respiratory 10 L 10 L 10 L Rate Blood Pressure 93/60 95/56 112/56 O2 Sat by Pulse 92 Oximetry 05/06/21 05/06/21 05/06/21 05:45 06:00 06:15 Temperature Pulse Rate 123 H 124 H 111 H Respiratory 10 L 10 L 10 L Rate Blood Pressure 120/67 84/45 74/38 O2 Sat by Pulse 80 L 72 L 72 L Oximetry 05/06/21 05/06/21 05/06/21 06:30 06:45 07:00 Temperature Pulse Rate 107 H 109 H 109 H Respiratory 10 L 10 L 10 L Rate Blood Pressure 87/30 80/34 73/37 O2 Sat by Pulse 37 L 55 L 49 L Oximetry 05/06/21 05/06/21 05/06/21 07:15 07:30 07:45 Temperature Pulse Rate 112 H 116 H 120 H Respiratory 10 L 10 L 10 L Rate Blood Pressure 74/35 77/41 94/49 O2 Sat by Pulse 60 L 63 L 57 L Oximetry 05/06/21 05/06/21 05/06/21 08:00 08:15 08:30 Temperature 100.6 F H Pulse Rate 122 H 124 H 122 H Respiratory 11 L 10 L 10 L Rate Blood Pressure 90/47 99/52 89/48 O2 Sat by Pulse 84 87 82 L Oximetry 05/06/21 05/06/21 05/06/21 08:45 09:00 09:15 Temperature Pulse Rate 128 H 128 H 127 H Respiratory 10 L 10 L 10 L Rate Blood Pressure 81/54 80/53 82/52 O2 Sat by Pulse 88 77 L 77 L Oximetry 05/06/21 05/06/21 05/06/21 09:30 09:46 10:00 Temperature Pulse Rate 122 H 130 H 133 H Respiratory 10 L 10 L 10 L Rate Blood Pressure 82/52 87/57 87/57 O2 Sat by Pulse 77 L 79 L 80 L Oximetry 05/06/21 05/06/21 12:00 13:03 Temperature 98 F 98.8 F Pulse Rate 125 H Respiratory 37 H Rate Blood Pressure 117/57 O2 Sat by Pulse 77 L Oximetry - General Appearance General appearance: chronically ill, intubated EENT: ATNC Neck: no JVD Respiratory: Present: Decreased Breath Sounds Cardiology: regular Gastrointestinal: normal Musculoskeletal: deferred - Lab 05/06/21 06:17 05/06/21 06:17 Most recent lab results ABG pH 7.292 (7.320-7.450) L 05/06/21 04:26 ABG pCO2 46.0 mm Hg 04/22/21 17:30 ABG pO2 99.6 mm Hg (80.0-90.0) H 04/22/21 17:30 ABG HCO3 24.4 mmol/L (20.0-26.0) 04/22/21 17:30 ABG O2 Saturation 77.7 (0-100) 05/06/21 04:26 Calcium 9.1 mg/dL (8.4-10.2) 05/06/21 06:17 Phosphorus 3.00 mg/dL (2.5-4.5) D 05/05/21 04:58 Magnesium 3.00 mg/dL (1.7-2.3) H 05/05/21 04:58 Urine Creatinine 65.6 mg/dL (0.1-20.0) H 05/03/21 16:10 Urine Sodium 38 mmol/L 05/03/21 16:10 Urine Total Protein 86 mg/dL (5-11.8) H 04/22/21 13:03 - Allied health notes Allied health notes reviewed: nursing Medications & Allergies - Medications Allergies/Adverse Reactions: Allergies No Known Allergies Allergy (Unverified 03/04/19 19:33) Home Medications: Home Medications Medication Instructions Recorded Confirmed Last Taken Type Lipitor 40 mg PO QHS #30 03/10/19 04/25/21 Unknown Rx Aspirin 300 mg PO QDAY 04/25/21 04/25/21 Unknown History Aspirin [Aspirin BABY CHEW TAB] 81 mg PO QDAY 04/25/21 04/25/21 Unknown History Sertraline [Zoloft] 50 mg PO QDAY 04/25/21 04/25/21 Unknown History amLODIPine 10 mg PO QDAY 04/25/21 04/25/21 Unknown History hydroCHLOROthiazide 12.5 mg PO QDAY 04/25/21 04/25/21 Unknown History [Hydrochlorothiazide] Active Medications: Generic Name Dose Route Start Last Admin Trade Name Freq PRN Reason Stop Dose Admin Acetaminophen 650 mg 04/21/21 21:11 05/06/21 04:04 Acetaminophen 325 Mg Tab PO 650 mg Q4H PRN Administration Pain MILD(1-3)/Fever >100.5/DICKINSON Acetaminophen 650 mg 05/03/21 23:39 Acetaminophen 650 Mg Rect Supp MN Q6H PRN Feverr>100.5 Lipase/Protease/Amylase 1 each 04/22/21 10:51 Lipase 10,500/Protease 25,000/Amylase 43,750 (Units) Dr Connor GREENETUBE PRN PRN For Clogged Feeding Tube Arformoterol Tartrate 15 mcg 04/29/21 20:00 05/06/21 06:13 Arformoterol 15 Mcg/2 Ml Nebu IH Not Given Q12HRT MINOR Aspirin 325 mg 05/01/21 13:00 05/06/21 09:35 Aspirin 325 Mg Tab PO 325 mg QDAY MINOR Administration Atorvastatin Calcium 40 mg 05/01/21 22:00 05/05/21 21:28 Atorvastatin 40 Mg Tab PO 40 mg QHS MINOR Administration Budesonide 0.5 mg 04/29/21 20:00 05/06/21 06:14 Budesonide 0.5 Mg/2 Ml Nebu IH Not Given Q12HRT MINOR Dextrose 50 ml 05/04/21 19:00 Dextrose 50% In Water (25gm) 50 Ml Syringe IV Q30MIN PRN Hypoglycemia Protocol Famotidine 20 mg 05/04/21 10:00 05/06/21 09:35 Famotidine 20 Mg Tab PO 20 mg DAILY MINOR Administration Hydralazine HCl 10 mg 04/29/21 12:23 Hydralazine 20 Mg/1 Ml Inj IV Q4H PRN Hypertension Hydrophilic Ointment 1 applic 04/21/21 15:46 Lip Therapy Vaseline TP Q2HR PRN Dry Lips Propofol 1,000 mg in 100 mls @ 2.19 mls/hr 04/26/21 11:00 05/06/21 10:47 Diprivan 10 Mg/Ml IV 0 mcg/kg/min TITR MINOR 0 mls/hr Titration Protocol 5 MCG/KG/MIN Lorazepam 100 mg/ Sodium 100 mls @ 1 mls/hr 04/30/21 11:00 05/05/21 22:31 Chloride/ Miscellaneous IV 2 mg/hr Information TITR MINOR 2 mls/hr Titration Protocol 1 MG/HR Vasopressin 20 unit/ Sodium 101 mls @ 9.09 mls/hr 05/02/21 21:00 05/06/21 12:43 Chloride IV 0.03 units/min TITR MINOR 9.09 mls/hr Administration Protocol 0.03 UNITS/MIN Norepinephrine 4 mg in 250 mls @ 7.5 mls/hr 05/03/21 02:00 05/06/21 12:43 Levophed Drip 4 Mg/Ns 250 Ml IV 28 mcg/min TITR MINOR 105 mls/hr Titration Protocol 2 MCG/MIN Cefepime HCl 2 gm in 100 mls @ 200 mls/hr 05/03/21 16:00 05/06/21 03:40 Cefepime/Ns 2 Gm/100 Ml IV Infused Q12H MINOR Infusion Protocol Dextrose 1,000 mls @ 125 mls/hr 05/04/21 09:00 05/06/21 00:57 D5w IV 75 mls/hr DIRECT MINOR Administration Phenylephrine HCl 100 mg/ 100 mls @ 3 mls/hr 05/06/21 11:00 05/06/21 11:56 Sodium Chloride IV 40 mcg/min TITR MINOR 2.4 mls/hr Titration Protocol 50 MCG/MIN Sodium Chloride 500 mls @ 0 mls/hr 05/06/21 10:31 Nacl 0.9% 500 Ml IV 05/06/21 20:00 ONCE NR As Directed Insulin Human Lispro 0 unit 05/03/21 00:00 05/06/21 12:31 Insulin Lispro 100 Unit/Ml SUB-Q 4 unit Q6HR MINOR Administration Protocol Levetiracetam 750 mg 04/25/21 10:00 05/06/21 09:35 Levetiracetam 500 Mg/5 Ml Oral Liqd PO 750 mg BID MINOR Administration Methylprednisolone Sodium Succinate 60 mg 04/28/21 06:00 05/06/21 12:29 Methylprednisolone Sod Succinate 40 Mg/1 Ml Inj IV 60 mg Q6H MINOR Administration Multi-Ingred Cream/Lotion/Oil/Oint 1 applic 04/21/21 15:46 Mineral Oil/Petrolatum, White Ophth Oint 3.5 Gm OU Q4HR PRN Dry Eye(s) Ondansetron HCl 4 mg 05/03/21 18:23 05/03/21 18:40 Ondansetron 4 Mg/2 Ml Inj IV 4 mg Q6H PRN Administration Nausea And Vomiting Polyethylene Glycol 17 gm 05/02/21 15:00 Polyethylene Glycol 3350 17 Gm Powder PO QDAY PRN Constipation Quetiapine Fumarate 25 mg 04/30/21 11:00 05/06/21 09:35 Quetiapine 25 Mg Tab PO 25 mg BID MINOR Administration Senna/Docusate Sodium 1 tab 04/26/21 22:00 05/05/21 21:29 Sennosides/Docusate Sodium 8.6/50 Mg Tab FEEDTUBE 1 tab QHS MINOR Administration Simple Syrup 15 ml 04/22/21 10:51 Simple Syrup 15 Ml FEEDTUBE PRN PRN Hypoglycemia Simple Syrup 30 ml 04/22/21 10:51 Simple Syrup 15 Ml FEEDTUBE PRN PRN Hypoglycemia Sodium Bicarbonate 325 mg 04/22/21 10:51 Sodium Bicarbonate 325 Mg Tab FEEDTUBE PRN PRN For Clogged Feeding Tube Sodium Chloride 10 ml 04/21/21 22:00 05/06/21 09:36 Sodium Chloride 0.9% 10 Ml Flush Syringe IV 10 ml BID MINOR Administration Sodium Chloride 10 ml 04/21/21 21:11 04/27/21 02:54 Sodium Chloride 0.9% 10 Ml Flush Syringe IV 10 ml PRN PRN Administration LINE FLUSH
--- NOTE | 2021-05-06 17:02 | Progress Note ---
Assessment and Plan Assessment and plan: NEURO hx CVA with l sided weakness; new onset sz; metabolic encephalopathy new onset seizures - mon endy PERRL; no commands but remains sedated on prop and ativan CT head on admit- IMPRESSION: Encephalomalacia in the right temporal lobe, frontal lobe; no acute/subacute parenchymal lesions MRI Encephalomalacia in the right cerebral hemisphere - see report will need repeat CT per neuro when PEEP is dec; Dr Arrington has told RN's not to take to CT on level of vent support she is requiring sedated on propofol and ativan daily SAT limited by hypoxia RAAS goal neg 4 seroquel BID; following QT case management following family updated daily on plan of care CV: hx htn on norvasc at home per EMR; ST; hypotension likely volume depletion/sepsis or combination of the 2 asa/statin echo 04/22 see report -normal biV function PRN hydral s/p adenosine and amiodarone on 05/03 for some tachycardia Vasopressors for blood pressure support RESP acute resp failure with PE on CTA; refractory hypoxia requiring MV; permissive hypercapnia to Ph of 7.2 intubated in ER; remains ventilated APRV Phigh 30/P low 6/Pmax 60 on 100% FiO2 permissive hypercapnia sat goal 88 pH goal 7.[address] noted - a/c lung disease evident with LPA PE's noted US BLE neg for DVT trending lactate/ABG and chest xrays continue nebs continue solumedrol will likely need trach- today vent day 11 Antibiotic therapy GI -illeus TF at goal -- held this afternoon pt vomited NG to LIS nutrition following PPI bowel reg - colace/senna/miralax concern for illeus-Dulcolax suppository KUB ordered for AM Looks better on xray-resume TF ans FWF 05/05 -LIZBETH worsening; hyperNa; lactic acidosis Corral; exchange 05/05 strict I/O trend and replace electrolytes as needed trend BUN/CR/CK Nephrology reconsulted Will again trial Lasix today D5W gtt FWF AM labs ordered HEME- Pulmonary emboli VTE on lovenox BID trending coags/Xa trend CBC no bleeding on exam LE dopplers neg for DVT; positive CTA for PE on admit ID- lactic acidosis, GNR UTI covid neg afebrile but lactic acid high and pt now on NE and vaso; also ST on monitor abx: cefepime (vanco d/c d/t UC with GNR), [place] change 05/05 continue to trend temp and WBC curve continuing methylpred ENDO stress hyperglycemia; obese blood glucose monitoring avoid hypoglycemia SSI PRN The high probability of a clinically significant, sudden or life threatening deterioration of the [respiratory] system(s) required my full and direct attention, intervention and personal management. The aggregate critical care time was [60] minutes. This time is in addition to time spent performing reported procedures but includes the following: [x] Data Review and interpretation [x] Patient assessment and monitoring of vital signs [x] Documentation [x] Medication orders and management Disposition Plan: ICU Total Time Spent with Patient (Minutes): 60 History Interval history: This is a 66-year-old female with HTN, HLD, prior CVA with resulting left-sided weakness present today with emergency department via EMS for AMS and new onset seizures with increased left-sided weakness. Upon arrival to the emergency room patient was intubated for airway protection and hypoxia. Patient was admitted to the hospital service with new onset seizures, acute hypoxic respiratory failure with pulmonary embolism on CTA, acute kidney injury, rhabdomyolysis. 04-30 NO ACUTE EVENTS OVERNIGHT; diuresis with 40 mg IV lasix 05-01 no acute events overnight; diuresis with 40 mg IV lasix 05-02: diuresis with lasix 40 mg IV during the day - pt still grossly pos per I/O; and pt weight, overnight pt persistently tachycardic given adenosine and amio gtt 05/04: Nephrology will try Lasix, [facility] adjust advanced to APRV to help with ventilation. Will obtain BMP at 2100. CCM okay with SPO2 greater than 88, pH of greater than 7.2. Hypernatremia to 160, started on D5 W, severe hypercapnia noted on ABG and patient ventilator settings was changed. Lactic acidosis noted with hyperglycemia. Hyperkalemia noted which was medically treated. 05/05: Lasix again today per nephro., increase in Plow to 30 post abg per ccm, increase in D5W gtt and FWF q200 and will restart TF. Vanco d/c r/t GNR in urine and corral changed. Remains on levo and vaso. 05/06: BP steadily decreasing. Levophed gtt titrated up, stop TF, infuse 2 units of PRBC ,and gave 1 L bolus of LR. Nephro and PCCM recs noted. Hospitalist Physical - Physical exam Narrative exam: General appearance: Present: no acute distress, well-nourished, other (Sedated on vent) - EENT Eyes: Present: PERRL - Neck Neck: Present: supple - Respiratory Respiratory effort: normal Respiratory: bilateral: diminished - Cardiovascular Rhythm: regular - Extremities Extremities: no ischemia, pulses symmetrical Peripheral Pulses: within normal limits - Abdominal General gastrointestinal: soft, non-tender - Integumentary Integumentary: Present: warm, dry - Psychiatric Psychiatric: other (sedated) - Neurologic Neurologic: other (sedated) - Constitutional Vitals: Temp Pulse Resp BP Pulse Ox 98.1 F 121 H 33 H 170/89 77 L 05/06/21 16:40 05/06/21 16:40 05/06/21 16:40 05/06/21 16:40 05/06/21 16:40 General appearance: Present: no acute distress, well-nourished, other (Sedated on vent) HEART Score - HEART Score Age: 45-65 Risk factors: 1-2 risk factors Troponin: Troponin T 0.055 ng/mL (0.00-0.029) H 04/21/21 16:32 - Critical Actions Critical Actions: 0-3 pts:0.9-1.7%risk of adverse cardiac event.Candidate for discharge Results - Labs CBC & Chem 7: 05/06/21 06:17 05/06/21 06:17 Labs: Laboratory Last Values WBC 8.3 K/mm3 (4.5-11.0) 05/06/21 06:17 RBC 2.34 M/mm3 (3.65-5.03) L 05/06/21 06:17 Hgb 7.2 gm/dl (10.1-14.3) L 05/06/21 06:17 Hct 22.7 % (30.3-42.9) L 05/06/21 06:17 MCV 97 fl (79-97) 05/06/21 06:17 MCH 31 pg (28-32) 05/06/21 06:17 MCHC 32 % (30-34) 05/06/21 06:17 RDW 16.8 % (13.2-15.2) H 05/06/21 06:17 Plt Count 139 K/mm3 (140-440) L 05/06/21 06:17 Lymph % (Auto) 12.0 % (13.4-35.0) L 04/22/21 05:29 [place] % (Auto) 2.8 % (0.0-7.3) 04/30/21 07:40 Eos % (Auto) 0.9 % (0.0-4.3) 04/30/21 07:40 Baso % (Auto) 0.7 % (0.0-1.8) 04/22/21 05:29 Lymph # (Auto) 1.1 K/mm3 (1.2-5.4) L 04/22/21 05:29 [place] # (Auto) 0.2 K/mm3 (0.0-0.8) 04/30/21 07:40 Eos # (Auto) 0.1 K/mm3 (0.0-0.4) 04/30/21 07:40 Baso # (Auto) 0.0 K/mm3 (0.0-0.1) 04/30/21 07:40 Add Manual Diff Complete 05/03/21 03:45 Total Counted 100 05/03/21 03:45 Seg Neutrophils % 88.4 % (40.0-70.0) H 04/30/21 07:40 Seg Neuts % (Manual) 63.0 % (40.0-70.0) 05/03/21 03:45 Band Neutrophils % 22.0 % 05/03/21 03:45 Lymphocytes % (Manual) 9.0 % (13.4-35.0) L 05/03/21 03:45 Reactive Lymphs % (Man) 2.0 % 05/03/21 03:45 Monocytes % (Manual) 2.0 % (0.0-7.3) 05/03/21 03:45 Eosinophils % (Manual) 1.0 % (0.0-4.3) 04/30/21 07:40 Metamyelocytes % 3.0 % 05/02/21 06:57 Myelocytes % 2.0 % 05/03/21 03:45 Nucleated RBC % 6.0 % (0.0-0.9) H 05/03/21 03:45 Seg Neutrophils # 7.5 K/mm3 (1.8-7.7) 04/30/21 07:40 Seg Neutrophils # Man 5.4 K/mm3 (1.8-7.7) 05/03/21 03:45 Band Neutrophils # 1.9 K/mm3 05/03/21 03:45 Lymphocytes # (Manual) 0.8 K/mm3 (1.2-5.4) L 05/03/21 03:45 Abs React Lymphs (Man) 0.2 K/mm3 05/03/21 03:45 Monocytes # (Manual) 0.2 K/mm3 (0.0-0.8) 05/03/21 03:45 Eosinophils # (Manual) 0.0 K/mm3 (0.0-0.4) 05/03/21 03:45 Basophils # (Manual) 0.0 K/mm3 (0.0-0.1) 05/03/21 03:45 Metamyelocytes # 0.0 K/mm3 05/03/21 03:45 Myelocytes # 0.2 K/mm3 05/03/21 03:45 Promyelocytes # 0.0 K/mm3 05/03/21 03:45 Blast Cells # 0.0 K/mm3 05/03/21 03:45 WBC Morphology Not Reportable 05/03/21 03:45 Hypersegmented Neuts Not Reportable 05/03/21 03:45 Hyposegmented Neuts Not Reportable 05/03/21 03:45 Hypogranular Neuts Not Reportable 05/03/21 03:45 Smudge Cells Not Reportable 05/03/21 03:45 Toxic Granulation Not Reportable 05/03/21 03:45 Toxic Vacuolation Not Reportable 05/03/21 03:45 Dohle Bodies Not Reportable 05/03/21 03:45 Pelger-Huet Anomaly Not Reportable 05/03/21 03:45 Brenda Rods Not Reportable 05/03/21 03:45 Platelet Estimate Consistent w auto 05/03/21 03:45 Clumped Platelets Not Reportable 05/03/21 03:45 Plt Clumps, EDTA Not Reportable 05/03/21 03:45 Large Platelets Not Reportable 05/03/21 03:45 Giant Platelets Few 05/03/21 03:45 Platelet Satelliting Not Reportable 05/03/21 03:45 Plt Morphology Comment Not Reportable 05/03/21 03:45 RBC Morphology Not Reportable 05/03/21 03:45 Dimorphic RBCs Not Reportable 05/03/21 03:45 Polychromasia Not Reportable 05/03/21 03:45 Hypochromasia Not Reportable 05/03/21 03:45 Poikilocytosis Not Reportable 05/03/21 03:45 Anisocytosis Not Reportable 05/03/21 03:45 Microcytosis Not Reportable 05/03/21 03:45 Macrocytosis Not Reportable 05/03/21 03:45 Spherocytes Not Reportable 05/03/21 03:45 Pappenheimer Bodies Not Reportable 05/03/21 03:45 Sickle Cells Not Reportable 05/03/21 03:45 Target Cells Not Reportable 05/03/21 03:45 Tear Drop Cells Not Reportable 05/03/21 03:45 Ovalocytes Not Reportable 05/03/21 03:45 Helmet Cells Not Reportable 05/03/21 03:45 [place] Bodies Not Reportable 05/03/21 03:45 [place] Rings Not Reportable 05/03/21 03:45 [place] Cells Not Reportable 05/03/21 03:45 Bite Cells Not Reportable 05/03/21 03:45 Crenated Cell Not Reportable 05/03/21 03:45 Elliptocytes Not Reportable 05/03/21 03:45 Acanthocytes (Spur) Not Reportable 05/03/21 03:45 Rouleaux Not Reportable 05/03/21 03:45 Hemoglobin C Crystals Not Reportable 05/03/21 03:45 Schistocytes Not Reportable 05/03/21 03:45 Malaria parasites Not Reportable 05/03/21 03:45 Uli Bodies Not Reportable 05/03/21 03:45 Hem Pathologist Commnt No 05/03/21 03:45 PT 13.2 Sec. (12.2-14.9) 04/22/21 00:32 INR 0.95 (0.87-1.13) 04/22/21 00:32 APTT 29.2 Sec. (24.2-36.6) 04/22/21 00:32 D-Dimer 1522.26 ng/mlDDU (0-234) H 04/21/21 16:30 Heparin Anti-Xa Level 0.84 U.I./ml (0.3-0.7) H 04/24/21 10:14 ABG pH 7.275 (7.320-7.450) L 05/06/21 16:29 POC ABG pCO2 74.7 mmHg (32.0-48.0) H 05/06/21 16:29 ABG pCO2 46.0 mm Hg 04/22/21 17:30 POC ABG pO2 37.6 mmHg (83-108) L 05/06/21 16:29 ABG pO2 99.6 mm Hg (80.0-90.0) H 04/22/21 17:30 POC ABG HCO3 33.9 05/06/21 16:29 ABG HCO3 24.4 mmol/L (20.0-26.0) 04/22/21 17:30 ABG O2 Saturation 64.4 (0-100) 05/06/21 16:29 ABG O2 Content 19.9 (0.0-44) 04/22/21 17:30 POC ABG Base Excess 6.7 05/06/21 16:29 ABG Base Excess -1.6 mmol/L (-2.0-3.0) 04/22/21 17:30 ABG Hemoglobin 5.3 (12.0-17.5) L 05/06/21 16:29 ABG Oxyhemoglobin 63.2 (94-98) L 05/06/21 16:29 ABG Carboxyhemoglobin 0.9 % (0.0-5.0) 04/22/21 17:30 ABG Methemoglobin 0.3 (0.0-1.5) 05/06/21 16:29 ABG Sodium 140.2 mmol/L (136.0-145.0) 05/06/21 16:29 ABG Potassium 3.8 mmol/L (3.40-4.50) 05/06/21 16:29 ABG Chloride 99.0 mmol/L (98-107) 05/06/21 16:29 ABG Glucose 239 mg/dL (65-95) H 05/06/21 16: Oxyhemoglobin 95.9 % (95.0-99.0) 04/22/21 17:30 Carboxyhemoglobin 1.6 (0.5-1.5) H 05/06/21 16:29 FiO2 100 % 04/22/21 17:30 FiO2 % 100.0 05/06/21 16:29 Sodium 150 mmol/L (137-145) H 05/06/21 06:17 Potassium 4.3 mmol/L (3.6-5.0) 05/06/21 06:17 Chloride 101.9 mmol/L (98-107) 05/06/21 06:17 Carbon Dioxide 47 mmol/L (22-30) H* 05/06/21 06:17 Anion Gap 5 mmol/L 05/06/21 06:17 BUN 80 mg/dL (7-17) H 05/06/21 06:17 Creatinine 1.6 mg/dL (0.6-1.2) H 05/06/21 06:17 Estimated GFR 39 ml/min 05/06/21 06:17 BUN/Creatinine Ratio 50 % 05/06/21 06:17 Glucose 264 mg/dL (65-100) H 05/06/21 06:17 POC Glucose 208 mg/dL (70-105) H 05/06/21 11:34 Osmolality 375 Mosm/kg 05/04/21 13:27 Lactic Acid 3.00 mmol/L (0.7-2.0) H* 05/04/21 13:27 Calcium 9.1 mg/dL (8.4-10.2) 05/06/21 06:17 Phosphorus 3.00 mg/dL (2.5-4.5) D 05/05/21 04:58 Magnesium 3.00 mg/dL (1.7-2.3) H 05/05/21 04:58 Total Bilirubin 0.40 mg/dL (0.1-1.2) 05/04/21 07:11 AST 44 units/L (5-40) H 05/04/21 07:11 ALT 32 units/L (7-56) 05/04/21 07:11 Alkaline Phosphatase 87 units/L (35-129) 05/04/21 07:11 Ammonia 58.0 umol/L (25-60) 04/28/21 04:45 Total Creatine Kinase 32 units/L (30-135) 05/03/21 03:45 CK-MB (CK-2) 22.4 ng/mL (0.0-4.0) H 04/21/21 16:32 CK-MB (CK-2) Rel Index 0.7 (0-4) 04/21/21 16:32 Troponin T 0.055 ng/mL (0.00-0.029) H 04/21/21 16:32 Total Protein 5.7 g/dL (6.3-8.2) L 05/04/21 07:11 Albumin 2.2 g/dL (3.9-5) L 05/04/21 07:11 Albumin/Globulin Ratio 0.6 % 05/04/21 07:11 Triglycerides 215 mg/dL (2-149) H 05/06/21 14:31 Cholesterol 220 mg/dL (50-199) H 04/21/21 16:32 LDL Cholesterol Direct 142 mg/dL (50-130) H 04/21/21 16:32 HDL Cholesterol 36 mg/dL (40-59) L 04/21/21 16:32 Cholesterol/HDL Ratio 6.11 % 04/21/21 16:32 TSH 0.051 mlU/mL (0.270-4.200) L 05/03/21 06:05 Free T4 1.05 ng/dL (0.76-1.46) 04/21/21 16:32 Arterial Blood Glucose 239 mg/dL (65-95) H 05/06/21 16:29 Arterial Blood Ionized Calcium 4.1 mg/dL (4.6-5.3) L 05/06/21 16:29 Urine Color [place] (Yellow) 05/03/21 16:10 Urine Turbidity Turbid (Clear) 05/03/21 16:10 Urine pH 5.0 (5.0-7.0) 05/03/21 16:10 Ur Specific [place] 1.016 (1.003-1.030) 05/03/21 16:10 Urine Protein 30 mg/dl mg/dL (Negative) 05/03/21 16:10 Urine Glucose (UA) Neg mg/dL (Negative) 05/03/21 16:10 Urine Ketones Neg mg/dL (Negative) 05/03/21 16:10 Urine Blood Sm (Negative) 05/03/21 16:10 Urine Nitrite Neg (Negative) 05/03/21 16:10 Urine Bilirubin Neg (Negative) 05/03/21 16:10 Urine Urobilinogen 2.0 mg/dL (<2.0) 05/03/21 16:10 Ur Leukocyte Esterase Sm (Negative) 05/03/21 16:10 Urine WBC (Auto) 43.0 /HPF (0.0-6.0) H 05/03/21 16:10 Urine RBC (Auto) 20.0 /HPF (0.0-6.0) 05/03/21 16:10 U Epithel Cells (Auto) 11.0 /HPF (0-13.0) 05/03/21 16:10 Urine Bacteria (Auto) 2+ /HPF (Negative) 05/03/21 16:10 Urine WBC Clumps 3+ /HPF 05/03/21 16:10 Urine Mucus 2+ /HPF 05/03/21 16:10 Urine Yeast (Budding) 3+ /HPF 05/03/21 16:10 Urine Osmolality 435 Mosm/kg 05/03/21 16:10 Urine Creatinine 65.6 mg/dL (0.1-20.0) H 05/03/21 16:10 Urine Sodium 38 mmol/L 05/03/21 16:10 Urine Urea Nitrogen 597 05/03/21 16:10 Urine Total Protein 86 mg/dL (5-11.8) H 04/22/21 13:03 Urine Opiates Screen Negative 04/21/21 Unknown Urine Methadone Screen Negative 04/21/21 Unknown Ur Barbiturates Screen Negative 04/21/21 Unknown Ur Phencyclidine Scrn Negative 04/21/21 Unknown Ur Amphetamines Screen Negative 04/21/21 Unknown U Benzodiazepines Scrn Negative 04/21/21 Unknown Urine Cocaine Screen Negative 04/21/21 Unknown U Marijuana (THC) Screen Negative 04/21/21 Unknown Drugs of Abuse Note Disclamer 04/21/21 Unknown Plasma/Serum Alcohol < 0.01 % (0-0.07) 04/21/21 16:32 Coronavirus (PCR) Negative (Negative) 04/23/21 Unknown Blood Type O POSITIVE 05/06/21 10:40 Antibody Screen Negative 05/06/21 10:40 Crossmatch See Detail 05/06/21 10:40 Microbiology: Microbiology 05/03/21 15:27 Peripheral/Venous Blood Culture - Final Klebsiella Oxytoca 05/03/21 15:27 Peripheral/Venous Blood Culture - Final Klebsiella Oxytoca 05/03/21 16:10 Urine,Clean Catch Urine Culture - Preliminary Gram Negative Markus 05/03/21 16:55 Tracheal Aspirate Sputum Culture - Final Klebsiella Pneumoniae 04/21/21 15:44 Tracheal Aspirate Sputum Culture - Final [place]ral/IV: Voiding Method Indwelling Catheter Active Medications - Current Medications Current Medications: Generic Name Dose Route Start Last Admin Trade Name Freq PRN Reason Stop Dose Admin Acetaminophen 650 mg 04/21/21 21:11 05/06/21 04:04 Acetaminophen 325 Mg Tab PO 650 mg Q4H PRN Administration Pain MILD(1-3)/Fever >100.5/DICKINSON Acetaminophen 650 mg 05/03/21 23:39 Acetaminophen 650 Mg Rect Supp [place] Q6H PRN Feverr>100.5 Lipase/Protease/Amylase 1 each 04/22/21 10:51 Lipase 10,500/Protease 25,000/Amylase 43,750 (Units) Dr Ryan FEEDTUBE PRN PRN For Clogged Feeding Tube Arformoterol Tartrate 15 mcg 04/29/21 20:00 05/06/21 13:21 Arformoterol 15 Mcg/2 Ml Nebu IH 15 mcg Q12HRT MINOR Administration Aspirin 325 mg 05/01/21 13:00 05/06/21 09:35 Aspirin 325 Mg Tab PO 325 mg QDAY MINOR Administration Atorvastatin Calcium 40 mg 05/01/21 22:00 05/05/21 21:28 Atorvastatin 40 Mg Tab PO 40 mg QHS MINOR Administration Budesonide 0.5 mg 04/29/21 20:00 05/06/21 13:22 Budesonide 0.5 Mg/2 Ml Nebu IH 0.5 mg Q12HRT MINOR Administration Dextrose 50 ml 05/04/21 19:00 Dextrose 50% In Water (25gm) 50 Ml Syringe IV Q30MIN PRN Hypoglycemia Protocol Famotidine 20 mg 05/04/21 10:00 05/06/21 09:35 Famotidine 20 Mg Tab PO 20 mg DAILY MINOR Administration Hydralazine HCl 10 mg 04/29/21 12:23 Hydralazine 20 Mg/1 Ml Inj IV Q4H PRN Hypertension Hydrophilic Ointment 1 applic 04/21/21 15:46 Lip Therapy Vaseline TP Q2HR PRN Dry Lips Propofol 1,000 mg in 100 mls @ 2.19 mls/hr 04/26/21 11:00 05/06/21 10:47 Diprivan 10 Mg/Ml IV 0 mcg/kg/min TITR MINOR 0 mls/hr Titration Protocol 5 MCG/KG/MIN Lorazepam 100 mg/ Sodium 100 mls @ 1 mls/hr 04/30/21 11:00 05/05/21 22:31 Chloride/ Miscellaneous IV 2 mg/hr Information TITR MINOR 2 mls/hr Titration Protocol 1 MG/HR Vasopressin 20 unit/ Sodium 101 mls @ 9.09 mls/hr 05/02/21 21:00 05/06/21 12:43 Chloride IV 0.03 units/min TITR MINOR 9.09 mls/hr Administration Protocol 0.03 UNITS/MIN Norepinephrine 4 mg in 250 mls @ 7.5 mls/hr 05/03/21 02:00 05/06/21 16:02 Levophed Drip 4 Mg/Ns 250 Ml IV 30 mcg/min TITR MINOR 112.5 mls/hr Administration Protocol 2 MCG/MIN Cefepime HCl 2 gm in 100 mls @ 200 mls/hr 05/03/21 16:00 05/06/21 16:47 Cefepime/Ns 2 Gm/100 Ml IV 200 mls/hr Q12H MINOR Administration Protocol Dextrose 1,000 mls @ 125 mls/hr 05/04/21 09:00 05/06/21 14:22 D5w IV 75 mls/hr DIRECT MINOR Administration Phenylephrine HCl 100 mg/ 100 mls @ 3 mls/hr 05/06/21 11:00 05/06/21 16:26 Sodium Chloride IV 10 mcg/min TITR MINOR 0.6 mls/hr Titration Protocol 50 MCG/MIN Sodium Chloride 500 mls @ 0 mls/hr 05/06/21 10:31 Nacl 0.9% 500 Ml IV 05/06/21 20:00 ONCE NR As Directed Insulin Human Lispro 0 unit 05/03/21 00:00 05/06/21 12:31 Insulin Lispro 100 Unit/Ml SUB-Q 4 unit Q6HR MINOR Administration Protocol Levetiracetam 750 mg 04/25/21 10:00 05/06/21 09:35 Levetiracetam 500 Mg/5 Ml Oral Liqd PO 750 mg BID MINOR Administration Methylprednisolone Sodium Succinate 60 mg 04/28/21 06:00 05/06/21 12:29 Methylprednisolone Sod Succinate 40 Mg/1 Ml Inj IV 60 mg Q6H MINOR Administration Multi-Ingred Cream/Lotion/Oil/Oint 1 applic 04/21/21 15:46 Mineral Oil/Petrolatum, White Ophth Oint 3.5 Gm OU Q4HR PRN Dry Eye(s) Ondansetron HCl 4 mg 05/03/21 18:23 05/03/21 18:40 Ondansetron 4 Mg/2 Ml Inj IV 4 mg Q6H PRN Administration Nausea And Vomiting Polyethylene Glycol 17 gm 05/02/21 15:00 Polyethylene Glycol 3350 17 Gm Powder PO QDAY PRN Constipation Quetiapine Fumarate 25 mg 04/30/21 11:00 05/06/21 09:35 Quetiapine 25 Mg Tab PO 25 mg BID MINOR Administration Senna/Docusate Sodium 1 tab 04/26/21 22:00 05/05/21 21:29 Sennosides/Docusate Sodium 8.6/50 Mg Tab FEEDTUBE 1 tab QHS MINOR Administration Simple Syrup 15 ml 04/22/21 10:51 Simple Syrup 15 Ml FEEDTUBE PRN PRN Hypoglycemia Simple Syrup 30 ml 04/22/21 10:51 Simple Syrup 15 Ml FEEDTUBE PRN PRN Hypoglycemia Sodium Bicarbonate 325 mg 04/22/21 10:51 Sodium Bicarbonate 325 Mg Tab FEEDTUBE PRN PRN For Clogged Feeding Tube Sodium Chloride 10 ml 04/21/21 22:00 05/06/21 09:36 Sodium Chloride 0.9% 10 Ml Flush Syringe IV 10 ml BID MINOR Administration Sodium Chloride 10 ml 04/21/21 21:11 04/27/21 02:54 Sodium Chloride 0.9% 10 Ml Flush Syringe IV 10 ml PRN PRN Administration LINE FLUSH Nutrition/Malnutrition Assess - Dietary Evaluation Nutrition/Malnutrition Findings: Nutrition Notes Start: 04/22/21 10:45 Freq: Status: Active Protocol: Document 05/01/21 12:27 (Rec: 05/01/21 12:30 [id number]) Nutrition Notes Initial or Follow up Reassessment Current Diagnosis Acute Kidney Injury, Hypertension,Stroke, Hyperlipidemia Other Pertinent Diagnosis New onset seizures, AMS, pulmonary embolism Current Diet TF - Nepro 35ml/hr Labs/Tests K 5.3 BUN 39 Pertinent Medications Solu medrol Height 5 ft 9 in Weight 79 kg [place] Body Weight (kg) 65.90 BMI 25.7 Weight change and time frame wt flucuations Weight Status Appropriate Subjective/Other Information Pt tolerating TF per RN. changed flush to 250 ml q4h. Percent of energy/protein needs met: 89% energy 71% pro Burn Absent Trauma Absent Minimum of two criteria No #1 Nutrition Diagnosis Inadequate oral intake Diagnosis Progress(for reassessment Continues documentation) Is patient on ventilator? Yes Is Patient Ambulatory and/or Out of Bed No REE-([place]-[facility] Jeor-confined to bed) 3667.214 Calculation Used for [facility]ations [facility] Additional Notes Pro needs 1.2-2g/k-159g/ day Fluid needs 1ml/kcal Nutrition Intervention Nutrition Support: Continue Nepro at 35ml/hr with 150ml water flush q4h. Kcal 1,512 Protein (gm) 68 Carbohydrates (gm) 135 Fat (gm) 81 Fluid (mL) 611 Fiber (gm) 11 Goal #1 TF tolerance Goal #2 TF to meet at least 75% energy and pro needs Follow-Up By: 05/08/21 Additional Comments FU for stable TF
[2021-05-06] MEDS: SENNOSIDES/DOCUSATE SODIUM 8.6/50 MG TAB FEEDTUBE SCH (21:45)
[2021-05-07] MEDS: methylPREDNISolone Sod Succinate 40 MG/1 ML INJ IV SCH ×4 (00:17→19:24)
[2021-05-07] MEDS: INSULIN LISPRO 100 UNIT/ML SUB-Q SCH ×4 (00:18→19:23)
[2021-05-07] MEDS: CEFEPIME/NS 2 GM/100 ML 2 GM/100 ML BAG IV SCH (03:41)
[2021-05-07] MEDS: DEXTROSE 5% IN WATER 1,000 ML IV SCH (04:07)
[2021-05-07 06:09] LABS: Mean Corpuscular HGB Conc 32 % (30-34); Mean Corpuscular Volume 96 fl (79-97); Platelet Count 116 K/mm3 (140-440); Red Blood Count 3.22 M/mm3 (3.65-5.03); Red Cell Distribution Width 17.1 % (13.2-15.2)
[2021-05-07 06:16] LABS: Albumin 2.2 g/dL (3.9-5); Calcium 8.7 mg/dL (8.4-10.2)
[2021-05-07] MEDS: ARFORMOTEROL 15 MCG/2 ML NEBU IH SCH ×2 (07:57→20:07)
[2021-05-07] MEDS: BUDESONIDE 0.5 MG/2 ML NEBU IH SCH ×2 (07:57→20:07)
[2021-05-07] MEDS: levETIRAcetam 500 MG/5 ML ORAL LIQD PO SCH ×2 (09:31→21:26)
[2021-05-07] MEDS: QUEtiapine 25 MG TAB PO SCH ×2 (09:32→21:26)
[2021-05-07] MEDS: FAMOTIDINE 20 MG TAB PO SCH (09:32)
[2021-05-07] MEDS: ASPIRIN 325 MG TAB PO SCH (09:32)
[2021-05-07] MEDS: FREE WATER PO SCH ×3 (09:42→19:24)
--- NOTE | 2021-05-07 10:42 | Progress Note ---
Assessment and Plan 66 y/o female, intubated for airway protection, found to have severe ILD and no has refractory hypoxemia. 05/07/21: Duong off, levo down to 2 and vaso is stable. Oxygenation remains a huge problem. Long discussion with daughter yesterday about this. Not sure that she understands completely. Increased PEEP and TV to 20 and 375 respectively. Ok to restart tube feeds now that pressor requirement is down. Hold on lasix given worsening renal function and follow up renal recs. Continue to hold lovenox. Did respond to blood transfusion which may have helped oxygenation some. Continue IV steroids. Continue IV abx for GNR in blood. Very very guarded to poor prognosis. Halving ativan dose today. 05/06/21: Stop sedation for now. Added a third vasopressor in Phenylephrine, goal map is 65. Repeated CXR and patient does not have PTX. Will give bolus now and transfuse two units of PRBC's. Stopped Lovenox therapy. Would hold on lasix today. Stopped tube feeds. Triglyceride level still not done. Will repeat blood cultures as well. Will call daughter to update her on patient condition. Continue IV steroids. Overall prognosis is worsening. Guarded to poor. 05/05/21: Now with GNR bacteremia, most likely source is urine. Needs corral however as she had urinary retention and we need strict I/O. Will change corral out today. Agree with repeat lasix that renal has already ordered. Patient is on Cefepime and agree with stopping vanc. Await speciation and susceptibilities. She has had minimal to no output from OG so will restart tube feeds and free water at 200q4. Ok with continuing D5 and bumping up rate. Will start to wean FiO2 again tomorrow. Will need repeat blood cultures as well. Ordered triglyceride level but not done. Will order again 05/04/21: Appreciate renal help and agree with trial of lasix. Made adjustments to aprv to help with ventilation. Repeat gas in 1 hour. Getting lasix, but suggest repeat chemistry tonight around 2100. Maintain sedation to rass of -4. Wean FiO2 for sats >88%. ok with pH's of >7.2. Overall prognosis remains guarded. Will reach out to daughter in the am. Guarded prognosis. Will check triglyceride levels in the am. 05/03/21: Found to have ileus on ABD x-ray. Hold feeds and continue to suction. Repeat imaging in am. Need to address hyperkalemia with IV therapy given Ileus. Will do insulin and Kayexalate therapy. Suggest repeat K later this evening. Dropped FiO2 to 90, continue to wean for sats greater 88%. No lasix today. Will give a liter bolus of LR. May need an additional bolus. Unable to transduce CVP from picc. Continue IV steroids. Repeat ABG in am. Suspect that renal insufficiency will be transient but will monitor closely. Guarded prognosis. Need to hold on CT given instability. 05/02/21: Continue current level of sedation. Maintain current TV settings and repeat ABG in am. Goal is to get FiO2 at 60 or less in the next 24 hours. Once FiO2 less than 50% can start weaning PEEP. Repeat IV lasix today. Will likely need more free water. Continue steroids. Guarded prognosis. 05/01/21: Continue Ativan and Diprovan drip. Maintain low tidal volume and high PEEP and as long as pH is greater than 7.2. continue diuresis with IV lasix. Guarded prognosis. Will call daughter back today. Continue High dose IV steroids for now. 04/30/21: Will add Ativan drip and attempt to wean Precedex to off. Once a dequate sedation achieved and BP stable, will give an additional dose of IV lasix today. Increased Free Water to 250q4. Ok with current Triglyceride level but will need to repeat. Prognosis remains guarded. Will call daughter to update her. 04/29/21: Continue low tidal volumes and high PEEPs. Lasix 40mg IV x1 today. Continue high dose steroids. Will start pulmicort and brovana therapy. Pr ognosis remains very very guarded. Follow up Triglyceride episode tomorrow. 04/26/21: Dropped tidal volume to 300. Keep PEEP at 16. Repeat ABG at 1230. Now that BP is better will give lasix 40 IV x1. Please assess again tomorrow and see if she would benefit from this. Pulse dose steroids through tomorrow and then solumedrol 60q6 starting on Thursday. Spoke with daughter over the phone who confirmed that mother was a smoker, heavy for 30+ years. Will start on BID pulmicort and brovana therapy. Overall prognosis discussed with daughter regarding possible need for trach and vent dependence. She asked about lung tx which I explained is not an option at this time. She seemed to express understanding but was mainly in shock as she had no idea her mother had ILD and per daughter, mother never saw a lung physician. Guarded to poor prognosis. My partner rounding over the weekend, I am back on Thursday. 04/25/21: Picc line today. Increase PEEP to 16. Dropped TV back to 375. pH of 7.2 and greater is acceptable. Will also pulse dose for the next 72 hours and then transition to q6 dosing on Thursday. Will discuss current clinical state with daughter. Serial ABG's today to make sure pH stays where it needs to be and hopeful improvement in oxygenation. Guarded prognosis. 04/24/21: Will drop TV to 375 and Increase PEEP to 14. Will repeat ABG in one hour. If no improvements, may need to consider IV steroids for 48-72 hours. Exact etiology of chronic lung disease is not known. Would prefer not to give sedation vacation given high levels of oxygen required as agitation could make things worse. Right now, unable to determine current neuro state. Lungs are very very sick and even though this is a chronic issue, now with her drive diminished from the ventilator, most likely will be a difficult wean. Will discuss with family soon what the next steps could potentially be but would need to assess mental state first. Guarded prognosis. 1. Increase PEEP and repeat ABG 2. May need to consider IV steroids 3. Follow up neuro recs 4. Guarded prognosis. cCT 31 minutes. Subjective Date of service: 05/07/21 Principal diagnosis: Acute kidney injury, rhabdomyolysis Interval history: No acute events. Back on PRVC. BP better but oxygenation is still bad. Updated daughter on yesterday. Renal output so far is stable but worsening renal function on labs this am. Off diprvan and on ativan at 2. Remainder is negative. Objective Vital Signs - 12hr 05/06/21 05/06/21 05/06/21 22:45 22:46 23:00 Temperature Pulse Rate 117 H 116 H 115 H Pulse Rate [ Anterior Bilateral] Respiratory 31 H 30 H 30 H Rate Respiratory Rate [Anterior Bilateral] Blood Pressure 134/75 132/73 146/73 O2 Sat by Pulse 89 89 89 Oximetry 05/06/21 05/06/21 05/06/21 23:08 23:15 23:30 Temperature Pulse Rate 115 H 113 H 114 H Pulse Rate [ Anterior Bilateral] Respiratory 30 H 31 H 29 H Rate Respiratory Rate [Anterior Bilateral] Blood Pressure 146/73 137/73 132/71 O2 Sat by Pulse 88 90 91 Oximetry 05/06/21 05/07/21 05/07/21 23:45 00:00 00:07 Temperature 97.5 F L Pulse Rate 114 H 114 H 114 H Pulse Rate [ Anterior Bilateral] Respiratory 32 H 30 H Rate Respiratory Rate [Anterior Bilateral] Blood Pressure 127/77 127/77 125/69 O2 Sat by Pulse 90 81 L 91 Oximetry 05/07/21 05/07/21 05/07/21 00:15 00:30 00:45 Temperature Pulse Rate 114 H 112 H 111 H Pulse Rate [ Anterior Bilateral] Respiratory 31 H 29 H 29 H Rate Respiratory Rate [Anterior Bilateral] Blood Pressure 141/76 142/76 130/78 O2 Sat by Pulse 90 93 92 Oximetry 05/07/21 05/07/21 05/07/21 01:00 01:15 01:30 Temperature Pulse Rate 112 H 113 H 113 H Pulse Rate [ Anterior Bilateral] Respiratory 29 H 31 H 29 H Rate Respiratory Rate [Anterior Bilateral] Blood Pressure 139/76 144/80 136/73 O2 Sat by Pulse 94 94 90 Oximetry 05/07/21 05/07/21 05/07/21 01:45 02:00 02:15 Temperature Pulse Rate 112 H 113 H 111 H Pulse Rate [ Anterior Bilateral] Respiratory 29 H 28 H 31 H Rate Respiratory Rate [Anterior Bilateral] Blood Pressure 131/70 129/74 127/74 O2 Sat by Pulse 94 91 90 Oximetry 05/07/21 05/07/21 05/07/21 02:30 02:45 03:00 Temperature Pulse Rate 112 H 111 H 113 H Pulse Rate [ Anterior Bilateral] Respiratory 28 H 30 H 30 H Rate Respiratory Rate [Anterior Bilateral] Blood Pressure 134/80 133/74 127/67 O2 Sat by Pulse 97 93 91 Oximetry 05/07/21 05/07/21 05/07/21 03:15 03:30 03:45 Temperature Pulse Rate 112 H 107 H 109 H Pulse Rate [ Anterior Bilateral] Respiratory 30 H 27 H 30 H Rate Respiratory Rate [Anterior Bilateral] Blood Pressure 113/63 105/66 108/61 O2 Sat by Pulse 81 L 92 88 Oximetry 05/07/21 05/07/21 05/07/21 04:00 04:06 04:15 Temperature 98.0 F Pulse Rate 112 H 111 H 111 H Pulse Rate [ Anterior Bilateral] Respiratory 28 H 29 H Rate Respiratory Rate [Anterior Bilateral] Blood Pressure 115/64 106/65 123/65 O2 Sat by Pulse 92 87 86 Oximetry 05/07/21 05/07/21 05/07/21 04:30 04:45 05:00 Temperature Pulse Rate 108 H 112 H 108 H Pulse Rate [ Anterior Bilateral] Respiratory 28 H 28 H 27 H Rate Respiratory Rate [Anterior Bilateral] Blood Pressure 107/64 103/64 99/66 O2 Sat by Pulse 91 77 L 94 Oximetry 05/07/21 05/07/21 05/07/21 05:16 05:25 05:30 Temperature Pulse Rate 112 H 108 H Pulse Rate [ Anterior Bilateral] Respiratory 31 H 29 H Rate Respiratory Rate [Anterior Bilateral] Blood Pressure 98/65 99/66 O2 Sat by Pulse 92 87 91 Oximetry 05/07/21 05/07/21 05/07/21 05:46 06:00 06:16 Temperature Pulse Rate 108 H 112 H 112 H Pulse Rate [ Anterior Bilateral] Respiratory 30 H 30 H 30 H Rate Respiratory Rate [Anterior Bilateral] Blood Pressure 86/68 86/68 119/71 O2 Sat by Pulse 90 93 92 Oximetry 05/07/21 05/07/21 05/07/21 06:30 06:45 07:00 Temperature 98.8 F Pulse Rate 108 H 104 H 105 H Pulse Rate [ Anterior Bilateral] Respiratory 30 H 32 H 30 H Rate Respiratory Rate [Anterior Bilateral] Blood Pressure 130/76 135/79 132/71 O2 Sat by Pulse 89 93 93 Oximetry 05/07/21 05/07/21 05/07/21 07:15 07:30 07:45 Temperature Pulse Rate 108 H 108 H 103 H Pulse Rate [ Anterior Bilateral] Respiratory 32 H 32 H 30 H Rate Respiratory Rate [Anterior Bilateral] Blood Pressure 147/75 141/78 144/76 O2 Sat by Pulse 93 94 95 Oximetry 05/07/21 05/07/21 05/07/21 07:57 08:00 09:50 Temperature Pulse Rate 109 H 108 H Pulse Rate [ 108 H Anterior Bilateral] Respiratory 32 H Rate Respiratory 30 H Rate [Anterior Bilateral] Blood Pressure 123/74 154/78 O2 Sat by Pulse 95 95 95 Oximetry Constitutional: no acute distress, other (Sedated) Ascultation: Bilateral: rales, rhonchi CBC and BMP: 05/07/21 05:20 05/07/21 05:20 ABG, PT/INR, D-dimer: ABG ABG pH 7.208 (7.320-7.450) L 05/07/21 02:57 POC ABG pCO2 91.5 mmHg (32.0-48.0) H 05/07/21 02:57 ABG pCO2 46.0 mm Hg 04/22/21 17:30 POC ABG pO2 51.2 mmHg (83-108) L 05/07/21 02:57 ABG pO2 99.6 mm Hg (80.0-90.0) H 04/22/21 17:30 POC ABG HCO3 35.6 05/07/21 02:57 ABG O2 Saturation 80.1 (0-100) 05/07/21 02:57 PT/INR, D-dimer PT 13.2 Sec. (12.2-14.9) 04/22/21 00:32 INR 0.95 (0.87-1.13) 04/22/21 00:32 D-Dimer 1522.26 ng/mlDDU (0-234) H 04/21/21 16:30 Abnormal lab findings: Abnormal Labs 04/21/21 04/21/21 04/21/21 14:40 15:42 16:30 RBC Hgb Hct MCV RDW Plt Count Lymph % (Auto) [place] % (Auto) Lymph # (Auto) Seg Neutrophils % Seg Neuts % (Manual) Lymphocytes % (Manual) Monocytes % (Manual) Nucleated RBC % Lymphocytes # (Manual) D-Dimer 1522.26 H Heparin Anti-Xa Level ABG pH POC ABG pCO2 POC ABG pO2 45.5 L 69.9 L ABG pO2 ABG Hemoglobin ABG Oxyhemoglobin 78.6 L 90.2 L ABG Sodium ABG Potassium ABG Chloride 111.0 H ABG Glucose 156 H 148 H Carboxyhemoglobin Sodium Potassium Chloride Carbon Dioxide BUN Creatinine Glucose POC Glucose Lactic Acid Calcium Phosphorus Magnesium AST ALT Total Creatine Kinase CK-MB (CK-2) Troponin T Total Protein Albumin Triglycerides Cholesterol LDL Cholesterol Direct HDL Cholesterol TSH Arterial Blood Glucose 156 H 148 H Arterial Blood Ionized Calcium 4.5 L Urine WBC (Auto) Urine Creatinine Urine Total Protein Crossmatch 04/21/21 04/21/21 04/22/21 16:32 16:32 00:32 RBC 5.22 H Hgb 16.2 H 14.8 H Hct 48.6 H 44.4 H MCV RDW 15.8 H Plt Count Lymph % (Auto) [place] % (Auto) Lymph # (Auto) Seg Neutrophils % Seg Neuts % (Manual) 79.0 H Lymphocytes % (Manual) 13.0 L Monocytes % (Manual) 8.0 H Nucleated RBC % Lymphocytes # (Manual) 1.1 L D-Dimer Heparin Anti-Xa Level ABG pH POC ABG pCO2 POC ABG pO2 ABG pO2 ABG Hemoglobin ABG Oxyhemoglobin ABG Sodium ABG Potassium ABG Chloride ABG Glucose Carboxyhemoglobin Sodium Potassium Chloride Carbon Dioxide 21 L BUN 24 H Creatinine 1.3 H Glucose 130 H POC Glucose Lactic Acid Calcium Phosphorus Magnesium AST 129 H ALT 61 H Total Creatine Kinase 3055 H CK-MB (CK-2) 22.4 H Troponin T 0.055 H Total Protein Albumin 3.6 L Triglycerides 235 H Cholesterol 220 H LDL Cholesterol Direct 142 H HDL Cholesterol 36 L TSH Arterial Blood Glucose Arterial Blood Ionized Calcium Urine WBC (Auto) Urine Creatinine Urine Total Protein Crossmatch 04/22/21 04/22/21 04/22/21 03:27 05:29 05:29 RBC Hgb 15.4 H Hct 45.8 H MCV RDW 16.0 H Plt Count Lymph % (Auto) 12.0 L [place] % (Auto) 8.0 H Lymph # (Auto) 1.1 L Seg Neutrophils % 76.3 H Seg Neuts % (Manual) Lymphocytes % (Manual) Monocytes % (Manual) Nucleated RBC % Lymphocytes # (Manual) D-Dimer Heparin Anti-Xa Level ABG pH POC ABG pCO2 POC ABG pO2 ABG pO2 ABG Hemoglobin ABG Oxyhemoglobin ABG Sodium ABG Potassium 4.7 H ABG Chloride 109.0 H ABG Glucose 155 H Carboxyhemoglobin 0.4 L Sodium Potassium 6.3 H* D Chloride Carbon Dioxide BUN 26 H Creatinine Glucose 134 H POC Glucose Lactic Acid Calcium Phosphorus Magnesium AST 123 H ALT Total Creatine Kinase CK-MB (CK-2) Troponin T Total Protein Albumin 3.6 L Triglycerides Cholesterol LDL Cholesterol Direct HDL Cholesterol TSH Arterial Blood Glucose 155 H Arterial Blood Ionized Calcium Urine WBC (Auto) Urine Creatinine Urine Total Protein Crossmatch 04/22/21 04/22/21 04/22/21 13:03 13:25 17:30 RBC Hgb Hct MCV RDW Plt Count Lymph % (Auto) [place] % (Auto) Lymph # (Auto) Seg Neutrophils % Seg Neuts % (Manual) Lymphocytes % (Manual) Monocytes % (Manual) Nucleated RBC % Lymphocytes # (Manual) D-Dimer Heparin Anti-Xa Level ABG pH 7.343 L POC ABG pCO2 POC ABG pO2 ABG pO2 99.6 H ABG Hemoglobin ABG Oxyhemoglobin ABG Sodium ABG Potassium ABG Chloride ABG Glucose Carboxyhemoglobin Sodium Potassium Chloride Carbon Dioxide BUN Creatinine Glucose POC Glucose Lactic Acid Calcium Phosphorus Magnesium AST ALT Total Creatine Kinase 2322 H CK-MB (CK-2) Troponin T Total Protein Albumin Triglycerides Cholesterol LDL Cholesterol Direct HDL Cholesterol TSH Arterial Blood Glucose Arterial Blood Ionized Calcium Urine WBC (Auto) Urine Creatinine 138.9 H Urine Total Protein 86 H Crossmatch 04/22/21 04/23/21 04/23/21 20:00 04:42 09:53 RBC Hgb Hct MCV RDW Plt Count Lymph % (Auto) [place] % (Auto) Lymph # (Auto) Seg Neutrophils % Seg Neuts % (Manual) Lymphocytes % (Manual) Monocytes % (Manual) Nucleated RBC % Lymphocytes # (Manual) D-Dimer Heparin Anti-Xa Level 2.00 H < 0.10 L ABG pH POC ABG pCO2 POC ABG pO2 ABG pO2 ABG Hemoglobin ABG Oxyhemoglobin 83.2 L ABG Sodium ABG Potassium ABG Chloride 113.0 H ABG Glucose 107 H Carboxyhemoglobin Sodium Potassium Chloride Carbon Dioxide BUN Creatinine Glucose POC Glucose Lactic Acid Calcium Phosphorus Magnesium AST ALT Total Creatine Kinase CK-MB (CK-2) Troponin T Total Protein Albumin Triglycerides Cholesterol LDL Cholesterol Direct HDL Cholesterol TSH Arterial Blood Glucose 107 H Arterial Blood Ionized Calcium Urine WBC (Auto) Urine Creatinine Urine Total Protein Crossmatch 04/23/21 04/23/21 04/23/21 14:21 14:21 15:11 RBC Hgb Hct MCV RDW 16.3 H Plt Count Lymph % (Auto) [place] % (Auto) Lymph # (Auto) Seg Neutrophils % Seg Neuts % (Manual) Lymphocytes % (Manual) Monocytes % (Manual) Nucleated RBC % Lymphocytes # (Manual) D-Dimer Heparin Anti-Xa Level ABG pH POC ABG pCO2 POC ABG pO2 68.6 L ABG pO2 ABG Hemoglobin ABG Oxyhemoglobin 91.3 L ABG Sodium ABG Potassium ABG Chloride 113.0 H ABG Glucose 100 H Carboxyhemoglobin Sodium Potassium Chloride 113.1 H Carbon Dioxide 20 L BUN 18 H Creatinine Glucose POC Glucose Lactic Acid Calcium 8.2 L Phosphorus Magnesium AST 59 H ALT Total Creatine Kinase 681 H CK-MB (CK-2) Troponin T Total Protein 5.5 L Albumin 2.3 L Triglycerides Cholesterol LDL Cholesterol Direct HDL Cholesterol TSH Arterial Blood Glucose 100 H Arterial Blood Ionized Calcium Urine WBC (Auto) Urine Creatinine Urine Total Protein Crossmatch 04/23/21 04/24/21 04/24/21 18:30 04:00 05:37 RBC Hgb Hct MCV RDW Plt Count Lymph % (Auto) [place] % (Auto) Lymph # (Auto) Seg Neutrophils % Seg Neuts % (Manual) Lymphocytes % (Manual) Monocytes % (Manual) Nucleated RBC % Lymphocytes # (Manual) D-Dimer Heparin Anti-Xa Level 1.84 H ABG pH POC ABG pCO2 POC ABG pO2 51.9 L ABG pO2 ABG Hemoglobin ABG Oxyhemoglobin 84.9 L ABG Sodium ABG Potassium ABG Chloride 112.0 H ABG Glucose 138 H Carboxyhemoglobin Sodium Potassium Chloride Carbon Dioxide BUN Creatinine Glucose POC Glucose 108 H Lactic Acid Calcium Phosphorus Magnesium AST ALT Total Creatine Kinase CK-MB (CK-2) Troponin T Total Protein Albumin Triglycerides Cholesterol LDL Cholesterol Direct HDL Cholesterol TSH Arterial Blood Glucose 138 H Arterial Blood Ionized Calcium Urine WBC (Auto) Urine Creatinine Urine Total Protein Crossmatch 04/24/21 04/24/21 04/24/21 10:00 10:00 10:14 RBC Hgb Hct MCV RDW 16.0 H Plt Count Lymph % (Auto) [place] % (Auto) Lymph # (Auto) Seg Neutrophils % Seg Neuts % (Manual) Lymphocytes % (Manual) Monocytes % (Manual) Nucleated RBC % Lymphocytes # (Manual) D-Dimer Heparin Anti-Xa Level 0.84 H ABG pH POC ABG pCO2 POC ABG pO2 ABG pO2 ABG Hemoglobin ABG Oxyhemoglobin ABG Sodium ABG Potassium ABG Chloride ABG Glucose Carboxyhemoglobin Sodium Potassium Chloride 109.9 H Carbon Dioxide BUN Creatinine Glucose 118 H POC Glucose Lactic Acid Calcium Phosphorus 2.00 L Magnesium 2.40 H AST 59 H ALT Total Creatine Kinase 396 H CK-MB (CK-2) Troponin T Total Protein 5.5 L Albumin 2.4 L Triglycerides Cholesterol LDL Cholesterol Direct HDL Cholesterol TSH Arterial Blood Glucose Arterial Blood Ionized Calcium Urine WBC (Auto) Urine Creatinine Urine Total Protein Crossmatch 04/24/21 04/24/21 04/24/21 11:14 12:00 15:23 RBC Hgb Hct MCV RDW Plt Count Lymph % (Auto) [place] % (Auto) Lymph # (Auto) Seg Neutrophils % Seg Neuts % (Manual) Lymphocytes % (Manual) Monocytes % (Manual) Nucleated RBC % Lymphocytes # (Manual) D-Dimer Heparin Anti-Xa Level ABG pH 7.287 L POC ABG pCO2 54.3 H POC ABG pO2 58.2 L 67.5 L ABG pO2 ABG Hemoglobin ABG Oxyhemoglobin 88.3 L 89.9 L ABG Sodium ABG Potassium ABG Chloride 111.0 H 110.0 H ABG Glucose 117 H 126 H Carboxyhemoglobin 0.3 L Sodium Potassium Chloride Carbon Dioxide BUN Creatinine Glucose POC Glucose 112 H Lactic Acid Calcium Phosphorus Magnesium AST ALT Total Creatine Kinase CK-MB (CK-2) Troponin T Total Protein Albumin Triglycerides Cholesterol LDL Cholesterol Direct HDL Cholesterol TSH Arterial Blood Glucose 117 H 126 H Arterial Blood Ionized Calcium Urine WBC (Auto) Urine Creatinine Urine Total Protein Crossmatch 04/24/21 04/24/21 04/24/21 17:58 18:00 22:56 RBC Hgb Hct MCV RDW Plt Count Lymph % (Auto) [place] % (Auto) Lymph # (Auto) Seg Neutrophils % Seg Neuts % (Manual) Lymphocytes % (Manual) Monocytes % (Manual) Nucleated RBC % Lymphocytes # (Manual) D-Dimer Heparin Anti-Xa Level ABG pH POC ABG pCO2 POC ABG pO2 53.3 L ABG pO2 ABG Hemoglobin ABG Oxyhemoglobin 86.2 L ABG Sodium ABG Potassium ABG Chloride 111.0 H ABG Glucose 115 H Carboxyhemoglobin 0.4 L Sodium Potassium Chloride Carbon Dioxide BUN Creatinine Glucose POC Glucose 106 H 131 H Lactic Acid Calcium Phosphorus Magnesium AST ALT Total Creatine Kinase CK-MB (CK-2) Troponin T Total Protein Albumin Triglycerides Cholesterol LDL Cholesterol Direct HDL Cholesterol TSH Arterial Blood Glucose 115 H Arterial Blood Ionized Calcium Urine WBC (Auto) Urine Creatinine Urine Total Protein Crossmatch 04/25/21 04/25/21 04/25/21 04:00 07:42 10:50 RBC Hgb Hct MCV RDW Plt Count Lymph % (Auto) [place] % (Auto) Lymph # (Auto) Seg Neutrophils % Seg Neuts % (Manual) Lymphocytes % (Manual) Monocytes % (Manual) Nucleated RBC % Lymphocytes # (Manual) D-Dimer Heparin Anti-Xa Level ABG pH POC ABG pCO2 POC ABG pO2 48.5 L 56.5 L ABG pO2 ABG Hemoglobin 10.6 L 10.4 L ABG Oxyhemoglobin 79.4 L 86.8 L ABG Sodium ABG Potassium ABG Chloride 111.0 H 112.0 H ABG Glucose 115 H 124 H Carboxyhemoglobin 0.2 L Sodium 146 H Potassium Chloride 111.3 H Carbon Dioxide BUN Creatinine Glucose 128 H POC Glucose Lactic Acid Calcium Phosphorus Magnesium AST ALT Total Creatine Kinase CK-MB (CK-2) Troponin T Total Protein Albumin Triglycerides Cholesterol LDL Cholesterol Direct HDL Cholesterol TSH Arterial Blood Glucose 115 H 124 H Arterial Blood Ionized Calcium Urine WBC (Auto) Urine Creatinine Urine Total Protein Crossmatch 04/25/21 04/25/21 04/25/21 11:12 13:55 16:05 RBC Hgb Hct MCV RDW Plt Count Lymph % (Auto) [place] % (Auto) Lymph # (Auto) Seg Neutrophils % Seg Neuts % (Manual) Lymphocytes % (Manual) Monocytes % (Manual) Nucleated RBC % Lymphocytes # (Manual) D-Dimer Heparin Anti-Xa Level ABG pH POC ABG pCO2 POC ABG pO2 46.7 L 53.7 L ABG pO2 ABG Hemoglobin 10.7 L 11.1 L ABG Oxyhemoglobin 81.3 L 85.6 L ABG Sodium ABG Potassium ABG Chloride 111.0 H 111.0 H ABG Glucose 158 H 185 H Carboxyhemoglobin 0.4 L Sodium Potassium Chloride Carbon Dioxide BUN Creatinine Glucose POC Glucose 136 H Lactic Acid Calcium Phosphorus Magnesium AST ALT Total Creatine Kinase CK-MB (CK-2) Troponin T Total Protein Albumin Triglycerides Cholesterol LDL Cholesterol Direct HDL Cholesterol TSH Arterial Blood Glucose 158 H 185 H Arterial Blood Ionized Calcium Urine WBC (Auto) Urine Creatinine Urine Total Protein Crossmatch 04/25/21 04/25/21 04/26/21 17:39 23:18 05:06 RBC Hgb Hct MCV RDW Plt Count Lymph % (Auto) [place] % (Auto) Lymph # (Auto) Seg Neutrophils % Seg Neuts % (Manual) Lymphocytes % (Manual) Monocytes % (Manual) Nucleated RBC % Lymphocytes # (Manual) D-Dimer Heparin Anti-Xa Level ABG pH POC ABG pCO2 POC ABG pO2 ABG pO2 ABG Hemoglobin ABG Oxyhemoglobin ABG Sodium ABG Potassium ABG Chloride ABG Glucose Carboxyhemoglobin Sodium Potassium Chloride Carbon Dioxide BUN Creatinine Glucose POC Glucose 155 H 158 H 134 H Lactic Acid Calcium Phosphorus Magnesium AST ALT Total Creatine Kinase CK-MB (CK-2) Troponin T Total Protein Albumin Triglycerides Cholesterol LDL Cholesterol Direct HDL Cholesterol TSH Arterial Blood Glucose Arterial Blood Ionized Calcium Urine WBC (Auto) Urine Creatinine Urine Total Protein Crossmatch 04/26/21 04/26/21 04/26/21 05:22 12:20 13:16 RBC Hgb Hct MCV RDW Plt Count Lymph % (Auto) [place] % (Auto) Lymph # (Auto) Seg Neutrophils % Seg Neuts % (Manual) Lymphocytes % (Manual) Monocytes % (Manual) Nucleated RBC % Lymphocytes # (Manual) D-Dimer Heparin Anti-Xa Level ABG pH POC ABG pCO2 POC ABG pO2 52.2 L 53.9 L ABG pO2 ABG Hemoglobin 10.9 L 11.5 L ABG Oxyhemoglobin 86.5 L 86.4 L ABG Sodium 145.8 H ABG Potassium 4.6 H ABG Chloride 114.0 H 112.0 H ABG Glucose 144 H 162 H Carboxyhemoglobin 0.4 L 0.4 L Sodium Potassium Chloride Carbon Dioxide BUN Creatinine Glucose POC Glucose 160 H Lactic Acid Calcium Phosphorus Magnesium AST ALT Total Creatine Kinase CK-MB (CK-2) Troponin T Total Protein Albumin Triglycerides Cholesterol LDL Cholesterol Direct HDL Cholesterol TSH Arterial Blood Glucose 144 H 162 H Arterial Blood Ionized Calcium Urine WBC (Auto) Urine Creatinine Urine Total Protein Crossmatch 04/26/21 04/26/21 04/26/21 14:09 18:42 23:30 RBC Hgb Hct MCV RDW Plt Count Lymph % (Auto) [place] % (Auto) Lymph # (Auto) Seg Neutrophils % Seg Neuts % (Manual) Lymphocytes % (Manual) Monocytes % (Manual) Nucleated RBC % Lymphocytes # (Manual) D-Dimer Heparin Anti-Xa Level ABG pH POC ABG pCO2 POC ABG pO2 55.3 L ABG pO2 ABG Hemoglobin 11.6 L ABG Oxyhemoglobin 87.2 L ABG Sodium 146.6 H ABG Potassium ABG Chloride 111.0 H ABG Glucose 165 H Carboxyhemoglobin Sodium Potassium Chloride Carbon Dioxide BUN Creatinine Glucose POC Glucose 161 H 163 H Lactic Acid Calcium Phosphorus Magnesium AST ALT Total Creatine Kinase CK-MB (CK-2) Troponin T Total Protein Albumin Triglycerides Cholesterol LDL Cholesterol Direct HDL Cholesterol TSH Arterial Blood Glucose 165 H Arterial Blood Ionized Calcium Urine WBC (Auto) Urine Creatinine Urine Total Protein Crossmatch 04/27/21 04/27/21 04/27/21 03:51 05:14 06:25 RBC 3.64 L Hgb Hct MCV RDW 16.2 H Plt Count Lymph % (Auto) [place] % (Auto) Lymph # (Auto) Seg Neutrophils % Seg Neuts % (Manual) Lymphocytes % (Manual) Monocytes % (Manual) Nucleated RBC % Lymphocytes # (Manual) D-Dimer Heparin Anti-Xa Level ABG pH POC ABG pCO2 52.9 H POC ABG pO2 60.8 L ABG pO2 ABG Hemoglobin 11.9 L ABG Oxyhemoglobin 87.9 L ABG Sodium 147.8 H ABG Potassium ABG Chloride 111.0 H ABG Glucose 183 H Carboxyhemoglobin Sodium Potassium Chloride Carbon Dioxide BUN Creatinine Glucose POC Glucose 165 H Lactic Acid Calcium Phosphorus Magnesium AST ALT Total Creatine Kinase CK-MB (CK-2) Troponin T Total Protein Albumin Triglycerides Cholesterol LDL Cholesterol Direct HDL Cholesterol TSH Arterial Blood Glucose 183 H Arterial Blood Ionized Calcium Urine WBC (Auto) Urine Creatinine Urine Total Protein Crossmatch 04/27/21 04/27/21 04/27/21 06:25 11:45 17:41 RBC Hgb Hct MCV RDW Plt Count Lymph % (Auto) [place] % (Auto) Lymph # (Auto) Seg Neutrophils % Seg Neuts % (Manual) Lymphocytes % (Manual) Monocytes % (Manual) Nucleated RBC % Lymphocytes # (Manual) D-Dimer Heparin Anti-Xa Level ABG pH POC ABG pCO2 POC ABG pO2 ABG pO2 ABG Hemoglobin ABG Oxyhemoglobin ABG Sodium ABG Potassium ABG Chloride ABG Glucose Carboxyhemoglobin Sodium 148 H Potassium 5.1 H D Chloride 109.0 H Carbon Dioxide BUN 35 H Creatinine Glucose 170 H POC Glucose 184 H 172 H Lactic Acid Calcium Phosphorus Magnesium AST 48 H ALT Total Creatine Kinase CK-MB (CK-2) Troponin T Total Protein Albumin 2.4 L Triglycerides Cholesterol LDL Cholesterol Direct HDL Cholesterol TSH Arterial Blood Glucose Arterial Blood Ionized Calcium Urine WBC (Auto) Urine Creatinine Urine Total Protein Crossmatch 04/27/21 04/28/21 04/28/21 23:16 03:23 04:00 RBC Hgb Hct MCV RDW Plt Count Lymph % (Auto) [place] % (Auto) Lymph # (Auto) Seg Neutrophils % Seg Neuts % (Manual) Lymphocytes % (Manual) Monocytes % (Manual) Nucleated RBC % Lymphocytes # (Manual) D-Dimer Heparin Anti-Xa Level ABG pH POC ABG pCO2 55.9 H POC ABG pO2 76.2 L ABG pO2 ABG Hemoglobin 11.5 L ABG Oxyhemoglobin 92.9 L ABG Sodium 153.3 H ABG Potassium 3.2 L ABG Chloride 115.0 H ABG Glucose 154 H Carboxyhemoglobin Sodium 154 H Potassium 3.5 L D Chloride 114.4 H Carbon Dioxide 31 H BUN 32 H Creatinine Glucose 148 H POC Glucose 142 H Lactic Acid Calcium Phosphorus Magnesium AST ALT Total Creatine Kinase CK-MB (CK-2) Troponin T Total Protein 6.0 L Albumin 2.4 L Triglycerides Cholesterol LDL Cholesterol Direct HDL Cholesterol TSH Arterial Blood Glucose 154 H Arterial Blood Ionized Calcium Urine WBC (Auto) Urine Creatinine Urine Total Protein Crossmatch 04/28/21 04/28/21 04/28/21 04:45 06:05 11:57 RBC Hgb Hct MCV RDW 16.1 H Plt Count Lymph % (Auto) [place] % (Auto) Lymph # (Auto) Seg Neutrophils % Seg Neuts % (Manual) Lymphocytes % (Manual) Monocytes % (Manual) Nucleated RBC % Lymphocytes # (Manual) D-Dimer Heparin Anti-Xa Level ABG pH POC ABG pCO2 POC ABG pO2 ABG pO2 ABG Hemoglobin ABG Oxyhemoglobin ABG Sodium ABG Potassium ABG Chloride ABG Glucose Carboxyhemoglobin Sodium Potassium Chloride Carbon Dioxide BUN Creatinine Glucose POC Glucose 153 H 109 H Lactic Acid Calcium Phosphorus Magnesium AST ALT Total Creatine Kinase CK-MB (CK-2) Troponin T Total Protein Albumin Triglycerides Cholesterol LDL Cholesterol Direct HDL Cholesterol TSH Arterial Blood Glucose Arterial Blood Ionized Calcium Urine WBC (Auto) Urine Creatinine Urine Total Protein Crossmatch 04/28/21 04/28/21 04/29/21 17:39 23:58 03:51 RBC Hgb Hct MCV RDW Plt Count Lymph % (Auto) [place] % (Auto) Lymph # (Auto) Seg Neutrophils % Seg Neuts % (Manual) Lymphocytes % (Manual) Monocytes % (Manual) Nucleated RBC % Lymphocytes # (Manual) D-Dimer Heparin Anti-Xa Level ABG pH POC ABG pCO2 54.7 H POC ABG pO2 68.6 L ABG pO2 ABG Hemoglobin 11.9 L ABG Oxyhemoglobin 91.7 L ABG Sodium 148.2 H ABG Potassium ABG Chloride 112.0 H ABG Glucose 136 H Carboxyhemoglobin Sodium Potassium Chloride Carbon Dioxide BUN Creatinine Glucose POC Glucose 145 H 164 H Lactic Acid Calcium Phosphorus Magnesium AST ALT Total Creatine Kinase CK-MB (CK-2) Troponin T Total Protein Albumin Triglycerides Cholesterol LDL Cholesterol Direct HDL Cholesterol TSH Arterial Blood Glucose 136 H Arterial Blood Ionized Calcium Urine WBC (Auto) Urine Creatinine Urine Total Protein Crossmatch 04/29/21 04/29/21 04/29/21 05:35 05:55 11:29 RBC Hgb Hct MCV RDW Plt Count Lymph % (Auto) [place] % (Auto) Lymph # (Auto) Seg Neutrophils % Seg Neuts % (Manual) Lymphocytes % (Manual) Monocytes % (Manual) Nucleated RBC % Lymphocytes # (Manual) D-Dimer Heparin Anti-Xa Level ABG pH POC ABG pCO2 POC ABG pO2 ABG pO2 ABG Hemoglobin ABG Oxyhemoglobin ABG Sodium ABG Potassium ABG Chloride ABG Glucose Carboxyhemoglobin Sodium 149 H Potassium Chloride 110.9 H Carbon Dioxide BUN 34 H Creatinine Glucose 136 H POC Glucose 128 H 206 H Lactic Acid Calcium Phosphorus Magnesium AST ALT Total Creatine Kinase CK-MB (CK-2) Troponin T Total Protein Albumin Triglycerides Cholesterol LDL Cholesterol Direct HDL Cholesterol TSH Arterial Blood Glucose Arterial Blood Ionized Calcium Urine WBC (Auto) Urine Creatinine Urine Total Protein Crossmatch 04/29/21 04/29/21 04/30/21 18:04 23:42 00:55 RBC Hgb Hct MCV RDW Plt Count Lymph % (Auto) [place] % (Auto) Lymph # (Auto) Seg Neutrophils % Seg Neuts % (Manual) Lymphocytes % (Manual) Monocytes % (Manual) Nucleated RBC % Lymphocytes # (Manual) D-Dimer Heparin Anti-Xa Level ABG pH POC ABG pCO2 POC ABG pO2 ABG pO2 ABG Hemoglobin ABG Oxyhemoglobin ABG Sodium ABG Potassium ABG Chloride ABG Glucose Carboxyhemoglobin Sodium Potassium 5.1 H D Chloride Carbon Dioxide BUN Creatinine Glucose POC Glucose 146 H 146 H Lactic Acid Calcium Phosphorus Magnesium AST ALT Total Creatine Kinase CK-MB (CK-2) Troponin T Total Protein Albumin Triglycerides Cholesterol LDL Cholesterol Direct HDL Cholesterol TSH Arterial Blood Glucose Arterial Blood Ionized Calcium Urine WBC (Auto) Urine Creatinine Urine Total Protein Crossmatch 04/30/21 04/30/21 04/30/21 05:00 05:34 07:40 RBC Hgb Hct MCV RDW Plt Count Lymph % (Auto) [place] % (Auto) Lymph # (Auto) Seg Neutrophils % Seg Neuts % (Manual) Lymphocytes % (Manual) Monocytes % (Manual) Nucleated RBC % Lymphocytes # (Manual) D-Dimer Heparin Anti-Xa Level ABG pH POC ABG pCO2 55.6 H POC ABG pO2 62.4 L ABG pO2 ABG Hemoglobin ABG Oxyhemoglobin 90.1 L ABG Sodium 146.8 H ABG Potassium ABG Chloride 109.0 H ABG Glucose 124 H Carboxyhemoglobin Sodium 149 H Potassium Chloride 109.5 H Carbon Dioxide 35 H BUN 33 H Creatinine Glucose 126 H POC Glucose 122 H Lactic Acid Calcium Phosphorus Magnesium 2.60 H AST ALT Total Creatine Kinase CK-MB (CK-2) Troponin T Total Protein 5.8 L Albumin 2.2 L Triglycerides 332 H Cholesterol LDL Cholesterol Direct HDL Cholesterol TSH Arterial Blood Glucose 124 H Arterial Blood Ionized Calcium Urine WBC (Auto) Urine Creatinine Urine Total Protein Crossmatch 04/30/21 04/30/21 04/30/21 07:40 11:12 17:00 RBC Hgb Hct MCV RDW 16.3 H Plt Count Lymph % (Auto) [place] % (Auto) Lymph # (Auto) Seg Neutrophils % 88.4 H Seg Neuts % (Manual) 82.0 H Lymphocytes % (Manual) 5.0 L Monocytes % (Manual) Nucleated RBC % Lymphocytes # (Manual) 0.4 L D-Dimer Heparin Anti-Xa Level ABG pH POC ABG pCO2 POC ABG pO2 ABG pO2 ABG Hemoglobin ABG Oxyhemoglobin ABG Sodium ABG Potassium ABG Chloride ABG Glucose Carboxyhemoglobin Sodium Potassium Chloride Carbon Dioxide BUN Creatinine Glucose POC Glucose 127 H Lactic Acid Calcium Phosphorus Magnesium AST ALT Total Creatine Kinase CK-MB (CK-2) Troponin T Total Protein Albumin Triglycerides 304 H Cholesterol LDL Cholesterol Direct HDL Cholesterol TSH Arterial Blood Glucose Arterial Blood Ionized Calcium Urine WBC (Auto) Urine Creatinine Urine Total Protein Crossmatch 04/30/21 04/30/21 05/01/21 18:17 23:25 03:33 RBC Hgb Hct MCV RDW Plt Count Lymph % (Auto) [place] % (Auto) Lymph # (Auto) Seg Neutrophils % Seg Neuts % (Manual) Lymphocytes % (Manual) Monocytes % (Manual) Nucleated RBC % Lymphocytes # (Manual) D-Dimer Heparin Anti-Xa Level ABG pH 7.275 L POC ABG pCO2 85.0 H POC ABG pO2 ABG pO2 ABG Hemoglobin ABG Oxyhemoglobin ABG Sodium ABG Potassium 5.0 H ABG Chloride ABG Glucose 150 H Carboxyhemoglobin Sodium Potassium Chloride Carbon Dioxide BUN Creatinine Glucose POC Glucose 151 H 143 H Lactic Acid Calcium Phosphorus Magnesium AST ALT Total Creatine Kinase CK-MB (CK-2) Troponin T Total Protein Albumin Triglycerides Cholesterol LDL Cholesterol Direct HDL Cholesterol TSH Arterial Blood Glucose 150 H Arterial Blood Ionized Calcium Urine WBC (Auto) Urine Creatinine Urine Total Protein Crossmatch 05/01/21 05/01/21 05/01/21 04:55 05:08 05:08 RBC Hgb Hct MCV RDW 16.7 H Plt Count Lymph % (Auto) [place] % (Auto) Lymph # (Auto) Seg Neutrophils % Seg Neuts % (Manual) Lymphocytes % (Manual) Monocytes % (Manual) Nucleated RBC % Lymphocytes # (Manual) D-Dimer Heparin Anti-Xa Level ABG pH POC ABG pCO2 POC ABG pO2 ABG pO2 ABG Hemoglobin ABG Oxyhemoglobin ABG Sodium ABG Potassium ABG Chloride ABG Glucose Carboxyhemoglobin Sodium Potassium 5.3 H D Chloride Carbon Dioxide 36 H BUN 39 H Creatinine Glucose 150 H POC Glucose 138 H Lactic Acid Calcium Phosphorus Magnesium AST ALT Total Creatine Kinase CK-MB (CK-2) Troponin T Total Protein Albumin Triglycerides Cholesterol LDL Cholesterol Direct HDL Cholesterol TSH Arterial Blood Glucose Arterial Blood Ionized Calcium Urine WBC (Auto) Urine Creatinine Urine Total Protein Crossmatch 05/01/21 05/01/21 05/01/21 11:46 14:30 17:08 RBC Hgb Hct MCV RDW Plt Count Lymph % (Auto) [place] % (Auto) Lymph # (Auto) Seg Neutrophils % Seg Neuts % (Manual) Lymphocytes % (Manual) Monocytes % (Manual) Nucleated RBC % Lymphocytes # (Manual) D-Dimer Heparin Anti-Xa Level ABG pH POC ABG pCO2 POC ABG pO2 ABG pO2 ABG Hemoglobin ABG Oxyhemoglobin ABG Sodium ABG Potassium ABG Chloride ABG Glucose Carboxyhemoglobin Sodium Potassium Chloride Carbon Dioxide BUN Creatinine Glucose POC Glucose 159 H 206 H Lactic Acid Calcium Phosphorus Magnesium 2.60 H AST ALT Total Creatine Kinase CK-MB (CK-2) Troponin T Total Protein Albumin Triglycerides Cholesterol LDL Cholesterol Direct HDL Cholesterol TSH Arterial Blood Glucose Arterial Blood Ionized Calcium Urine WBC (Auto) Urine Creatinine Urine Total Protein Crossmatch 05/01/21 05/02/21 05/02/21 23:21 04:00 05:32 RBC Hgb Hct MCV RDW Plt Count Lymph % (Auto) [place] % (Auto) Lymph # (Auto) Seg Neutrophils % Seg Neuts % (Manual) Lymphocytes % (Manual) Monocytes % (Manual) Nucleated RBC % Lymphocytes # (Manual) D-Dimer Heparin Anti-Xa Level ABG pH 7.213 L POC ABG pCO2 123.0 H POC ABG pO2 69.9 L ABG pO2 ABG Hemoglobin ABG Oxyhemoglobin 90.0 L ABG Sodium 148.1 H ABG Potassium 5.2 H ABG Chloride ABG Glucose 205 H Carboxyhemoglobin 1.9 H Sodium Potassium Chloride Carbon Dioxide BUN Creatinine Glucose POC Glucose 176 H 184 H Lactic Acid Calcium Phosphorus Magnesium AST ALT Total Creatine Kinase CK-MB (CK-2) Troponin T Total Protein Albumin Triglycerides Cholesterol LDL Cholesterol Direct HDL Cholesterol TSH Arterial Blood Glucose 205 H Arterial Blood Ionized Calcium Urine WBC (Auto) Urine Creatinine Urine Total Protein Crossmatch 05/02/21 05/02/21 05/02/21 06:57 06:57 08:00 RBC Hgb Hct MCV RDW 17.5 H Plt Count Lymph % (Auto) [place] % (Auto) Lymph # (Auto) Seg Neutrophils % Seg Neuts % (Manual) 84.0 H Lymphocytes % (Manual) 6.0 L Monocytes % (Manual) Nucleated RBC % 1.0 H Lymphocytes # (Manual) 0.6 L D-Dimer Heparin Anti-Xa Level ABG pH 7.267 L POC ABG pCO2 102.9 H POC ABG pO2 81.4 L ABG pO2 ABG Hemoglobin ABG Oxyhemoglobin 93.6 L ABG Sodium 148.0 H ABG Potassium 5.4 H ABG Chloride ABG Glucose 249 H Carboxyhemoglobin Sodium 148 H Potassium 5.6 H Chloride Carbon Dioxide 40 H BUN 36 H Creatinine Glucose 227 H POC Glucose Lactic Acid Calcium Phosphorus 2.20 L Magnesium 2.80 H AST 41 H ALT Total Creatine Kinase CK-MB (CK-2) Troponin T Total Protein Albumin 2.7 L Triglycerides Cholesterol LDL Cholesterol Direct HDL Cholesterol TSH Arterial Blood Glucose 249 H Arterial Blood Ionized Calcium Urine WBC (Auto) Urine Creatinine Urine Total Protein Crossmatch 05/02/21 05/02/21 05/02/21 10:52 11:58 15:15 RBC Hgb Hct MCV RDW Plt Count Lymph % (Auto) [place] % (Auto) Lymph # (Auto) Seg Neutrophils % Seg Neuts % (Manual) Lymphocytes % (Manual) Monocytes % (Manual) Nucleated RBC % Lymphocytes # (Manual) D-Dimer Heparin Anti-Xa Level ABG pH 7.260 L POC ABG pCO2 99.9 H POC ABG pO2 74.9 L ABG pO2 ABG Hemoglobin ABG Oxyhemoglobin 92.1 L ABG Sodium 146.4 H ABG Potassium 5.7 H ABG Chloride ABG Glucose 266 H Carboxyhemoglobin Sodium 152 H Potassium 5.4 H Chloride Carbon Dioxide 41 H* BUN 47 H Creatinine Glucose 269 H POC Glucose 268 H Lactic Acid Calcium Phosphorus Magnesium 2.80 H AST ALT Total Creatine Kinase CK-MB (CK-2) Troponin T Total Protein Albumin Triglycerides Cholesterol LDL Cholesterol Direct HDL Cholesterol TSH Arterial Blood Glucose 266 H Arterial Blood Ionized Calcium Urine WBC (Auto) Urine Creatinine Urine Total Protein Crossmatch 05/02/21 05/03/21 05/03/21 18:05 00:06 03:45 RBC Hgb Hct MCV 98 H RDW 17.1 H Plt Count Lymph % (Auto) [place] % (Auto) Lymph # (Auto) Seg Neutrophils % Seg Neuts % (Manual) Lymphocytes % (Manual) 9.0 L Monocytes % (Manual) Nucleated RBC % 6.0 H Lymphocytes # (Manual) 0.8 L D-Dimer Heparin Anti-Xa Level ABG pH POC ABG pCO2 POC ABG pO2 ABG pO2 ABG Hemoglobin ABG Oxyhemoglobin ABG Sodium ABG Potassium ABG Chloride ABG Glucose Carboxyhemoglobin Sodium Potassium Chloride Carbon Dioxide BUN Creatinine Glucose POC Glucose 225 H 230 H Lactic Acid Calcium Phosphorus Magnesium AST ALT Total Creatine Kinase CK-MB (CK-2) Troponin T Total Protein Albumin Triglycerides Cholesterol LDL Cholesterol Direct HDL Cholesterol TSH Arterial Blood Glucose Arterial Blood Ionized Calcium Urine WBC (Auto) Urine Creatinine Urine Total Protein Crossmatch 05/03/21 05/03/21 05/03/21 03:45 04:00 05:29 RBC Hgb Hct MCV RDW Plt Count Lymph % (Auto) [place] % (Auto) Lymph # (Auto) Seg Neutrophils % Seg Neuts % (Manual) Lymphocytes % (Manual) Monocytes % (Manual) Nucleated RBC % Lymphocytes # (Manual) D-Dimer Heparin Anti-Xa Level ABG pH 7.237 L POC ABG pCO2 99.9 H POC ABG pO2 74.8 L ABG pO2 ABG Hemoglobin 11.9 L ABG Oxyhemoglobin 91.9 L ABG Sodium 147.0 H ABG Potassium 5.2 H ABG Chloride ABG Glucose 196 H Carboxyhemoglobin Sodium 151 H Potassium 5.7 H Chloride Carbon Dioxide 40 H BUN 68 H Creatinine 1.8 H D Glucose 200 H POC Glucose 200 H Lactic Acid Calcium Phosphorus Magnesium 3.10 H AST 42 H ALT Total Creatine Kinase CK-MB (CK-2) Troponin T Total Protein Albumin 2.4 L Triglycerides Cholesterol LDL Cholesterol Direct HDL Cholesterol TSH Arterial Blood Glucose 196 H Arterial Blood Ionized Calcium Urine WBC (Auto) Urine Creatinine Urine Total Protein Crossmatch 05/03/21 05/03/21 05/03/21 06:05 10:21 11:36 RBC Hgb Hct MCV RDW Plt Count Lymph % (Auto) [place] % (Auto) Lymph # (Auto) Seg Neutrophils % Seg Neuts % (Manual) Lymphocytes % (Manual) Monocytes % (Manual) Nucleated RBC % Lymphocytes # (Manual) D-Dimer Heparin Anti-Xa Level ABG pH POC ABG pCO2 POC ABG pO2 ABG pO2 ABG Hemoglobin ABG Oxyhemoglobin ABG Sodium ABG Potassium ABG Chloride ABG Glucose Carboxyhemoglobin Sodium Potassium Chloride Carbon Dioxide BUN Creatinine Glucose POC Glucose 197 H Lactic Acid 2.20 H* Calcium Phosphorus Magnesium AST ALT Total Creatine Kinase CK-MB (CK-2) Troponin T Total Protein Albumin Triglycerides Cholesterol LDL Cholesterol Direct HDL Cholesterol TSH 0.051 L Arterial Blood Glucose Arterial Blood Ionized Calcium Urine WBC (Auto) Urine Creatinine Urine Total Protein Crossmatch 05/03/21 05/03/21 05/03/21 15:00 15:27 16:10 RBC Hgb Hct MCV RDW Plt Count Lymph % (Auto) [place] % (Auto) Lymph # (Auto) Seg Neutrophils % Seg Neuts % (Manual) Lymphocytes % (Manual) Monocytes % (Manual) Nucleated RBC % Lymphocytes # (Manual) D-Dimer Heparin Anti-Xa Level ABG pH 7.184 L POC ABG pCO2 120.0 H POC ABG pO2 46.4 L ABG pO2 ABG Hemoglobin 10.4 L ABG Oxyhemoglobin 75.7 L ABG Sodium 148.9 H ABG Potassium ABG Chloride ABG Glucose 157 H Carboxyhemoglobin Sodium 151 H Potassium Chloride Carbon Dioxide 36 H BUN 73 H Creatinine 1.9 H Glucose 155 H POC Glucose Lactic Acid Calcium 10.3 H Phosphorus Magnesium 3.00 H AST ALT Total Creatine Kinase CK-MB (CK-2) Troponin T Total Protein Albumin Triglycerides Cholesterol LDL Cholesterol Direct HDL Cholesterol TSH Arterial Blood Glucose 157 H Arterial Blood Ionized Calcium Urine WBC (Auto) 43.0 H Urine Creatinine Urine Total Protein Crossmatch 05/03/21 05/03/21 05/03/21 16:10 18:03 20:00 RBC Hgb Hct MCV RDW Plt Count Lymph % (Auto) [place] % (Auto) Lymph # (Auto) Seg Neutrophils % Seg Neuts % (Manual) Lymphocytes % (Manual) Monocytes % (Manual) Nucleated RBC % Lymphocytes # (Manual) D-Dimer Heparin Anti-Xa Level ABG pH POC ABG pCO2 82.8 H POC ABG pO2 46.6 L ABG pO2 ABG Hemoglobin 10.4 L ABG Oxyhemoglobin 81.7 L ABG Sodium 154.9 H ABG Potassium 5.5 H ABG Chloride ABG Glucose 152 H Carboxyhemoglobin Sodium Potassium Chloride Carbon Dioxide BUN Creatinine Glucose POC Glucose 108 H Lactic Acid Calcium Phosphorus Magnesium AST ALT Total Creatine Kinase CK-MB (CK-2) Troponin T Total Protein Albumin Triglycerides Cholesterol LDL Cholesterol Direct HDL Cholesterol TSH Arterial Blood Glucose 152 H Arterial Blood Ionized Calcium Urine WBC (Auto) Urine Creatinine 65.6 H Urine Total Protein Crossmatch 05/03/21 05/03/21 05/04/21 22:13 23:17 03:39 RBC Hgb Hct MCV RDW Plt Count Lymph % (Auto) [place] % (Auto) Lymph # (Auto) Seg Neutrophils % Seg Neuts % (Manual) Lymphocytes % (Manual) Monocytes % (Manual) Nucleated RBC % Lymphocytes # (Manual) D-Dimer Heparin Anti-Xa Level ABG pH POC ABG pCO2 94.7 H 88.0 H POC ABG pO2 51.1 L 52.6 L ABG pO2 ABG Hemoglobin 10.6 L 10.3 L ABG Oxyhemoglobin 83.7 L 84.7 L ABG Sodium 156.1 H 157.7 H ABG Potassium 5.6 H 5.2 H ABG Chloride ABG Glucose 181 H 221 H Carboxyhemoglobin Sodium Potassium Chloride Carbon Dioxide BUN Creatinine Glucose POC Glucose 165 H Lactic Acid Calcium Phosphorus Magnesium AST ALT Total Creatine Kinase CK-MB (CK-2) Troponin T Total Protein Albumin Triglycerides Cholesterol LDL Cholesterol Direct HDL Cholesterol TSH Arterial Blood Glucose 181 H 221 H Arterial Blood Ionized Calcium Urine WBC (Auto) Urine Creatinine Urine Total Protein Crossmatch 05/04/21 05/04/21 05/04/21 05:27 07:11 07:11 RBC 3.12 L Hgb 9.5 L Hct 29.8 L D MCV RDW 16.6 H Plt Count Lymph % (Auto) [place] % (Auto) Lymph # (Auto) Seg Neutrophils % Seg Neuts % (Manual) Lymphocytes % (Manual) Monocytes % (Manual) Nucleated RBC % Lymphocytes # (Manual) D-Dimer Heparin Anti-Xa Level ABG pH POC ABG pCO2 POC ABG pO2 ABG pO2 ABG Hemoglobin ABG Oxyhemoglobin ABG Sodium ABG Potassium ABG Chloride ABG Glucose Carboxyhemoglobin Sodium 160 H D Potassium 5.4 H Chloride 109.9 H Carbon Dioxide 45 H* D BUN 75 H Creatinine 1.5 H Glucose 223 H POC Glucose 193 H Lactic Acid Calcium Phosphorus Magnesium 3.10 H AST 44 H ALT Total Creatine Kinase CK-MB (CK-2) Troponin T Total Protein 5.7 L Albumin 2.2 L Triglycerides Cholesterol LDL Cholesterol Direct HDL Cholesterol TSH Arterial Blood Glucose Arterial Blood Ionized Calcium Urine WBC (Auto) Urine Creatinine Urine Total Protein Crossmatch 05/04/21 05/04/21 05/04/21 07:11 11:32 13:27 RBC Hgb Hct MCV RDW Plt Count Lymph % (Auto) [place] % (Auto) Lymph # (Auto) Seg Neutrophils % Seg Neuts % (Manual) Lymphocytes % (Manual) Monocytes % (Manual) Nucleated RBC % Lymphocytes # (Manual) D-Dimer Heparin Anti-Xa Level ABG pH POC ABG pCO2 POC ABG pO2 ABG pO2 ABG Hemoglobin ABG Oxyhemoglobin ABG Sodium ABG Potassium ABG Chloride ABG Glucose Carboxyhemoglobin Sodium Potassium Chloride Carbon Dioxide BUN Creatinine Glucose POC Glucose 276 H Lactic Acid 3.00 H* 3.00 H* Calcium Phosphorus Magnesium AST ALT Total Creatine Kinase CK-MB (CK-2) Troponin T Total Protein Albumin Triglycerides Cholesterol LDL Cholesterol Direct HDL Cholesterol TSH Arterial Blood Glucose Arterial Blood Ionized Calcium Urine WBC (Auto) Urine Creatinine Urine Total Protein Crossmatch 05/04/21 05/04/21 05/04/21 13:27 13:53 16:25 RBC Hgb Hct MCV RDW Plt Count Lymph % (Auto) [place] % (Auto) Lymph # (Auto) Seg Neutrophils % Seg Neuts % (Manual) Lymphocytes % (Manual) Monocytes % (Manual) Nucleated RBC % Lymphocytes # (Manual) D-Dimer Heparin Anti-Xa Level ABG pH 7.275 L POC ABG pCO2 117.3 H 80.8 H POC ABG pO2 69.8 L 55.2 L ABG pO2 ABG Hemoglobin 9.5 L 8.6 L ABG Oxyhemoglobin 89.6 L 86.0 L ABG Sodium 156.2 H 155.9 H ABG Potassium ABG Chloride ABG Glucose 263 H 230 H Carboxyhemoglobin 1.6 H Sodium Potassium Chloride Carbon Dioxide BUN Creatinine Glucose POC Glucose Lactic Acid Calcium Phosphorus Magnesium 3.00 H AST ALT Total Creatine Kinase CK-MB (CK-2) Troponin T Total Protein Albumin Triglycerides Cholesterol LDL Cholesterol Direct HDL Cholesterol TSH Arterial Blood Glucose 263 H 230 H Arterial Blood Ionized Calcium 4.5 L Urine WBC (Auto) Urine Creatinine Urine Total Protein Crossmatch 05/04/21 05/04/21 05/04/21 17:28 22:00 22:00 RBC Hgb Hct MCV RDW Plt Count Lymph % (Auto) [place] % (Auto) Lymph # (Auto) Seg Neutrophils % Seg Neuts % (Manual) Lymphocytes % (Manual) Monocytes % (Manual) Nucleated RBC % Lymphocytes # (Manual) D-Dimer Heparin Anti-Xa Level ABG pH POC ABG pCO2 87.2 H POC ABG pO2 60.7 L ABG pO2 ABG Hemoglobin 8.9 L ABG Oxyhemoglobin 87.8 L ABG Sodium 155.8 H ABG Potassium 4.6 H ABG Chloride ABG Glucose 194 H Carboxyhemoglobin Sodium 159 H Potassium Chloride 110.3 H Carbon Dioxide 44 H* BUN 70 H Creatinine 1.4 H Glucose 200 H POC Glucose 202 H Lactic Acid Calcium Phosphorus Magnesium AST ALT Total Creatine Kinase CK-MB (CK-2) Troponin T Total Protein Albumin Triglycerides Cholesterol LDL Cholesterol Direct HDL Cholesterol TSH Arterial Blood Glucose 194 H Arterial Blood Ionized Calcium Urine WBC (Auto) Urine Creatinine Urine Total Protein Crossmatch 05/04/21 05/05/21 05/05/21 23:12 04:58 04:58 RBC 2.78 L Hgb 8.6 L Hct 27.1 L MCV RDW 17.0 H Plt Count Lymph % (Auto) [place] % (Auto) Lymph # (Auto) Seg Neutrophils % Seg Neuts % (Manual) Lymphocytes % (Manual) Monocytes % (Manual) Nucleated RBC % Lymphocytes # (Manual) D-Dimer Heparin Anti-Xa Level ABG pH POC ABG pCO2 POC ABG pO2 ABG pO2 ABG Hemoglobin ABG Oxyhemoglobin ABG Sodium ABG Potassium ABG Chloride ABG Glucose Carboxyhemoglobin Sodium 161 H* Potassium Chloride 112.6 H Carbon Dioxide 46 H* BUN 67 H Creatinine Glucose 188 H POC Glucose 196 H Lactic Acid Calcium Phosphorus Magnesium 3.00 H AST ALT Total Creatine Kinase CK-MB (CK-2) Troponin T Total Protein Albumin Triglycerides Cholesterol LDL Cholesterol Direct HDL Cholesterol TSH Arterial Blood Glucose Arterial Blood Ionized Calcium Urine WBC (Auto) Urine Creatinine Urine Total Protein Crossmatch 05/05/21 05/05/21 05/05/21 05:11 10:52 11:55 RBC Hgb Hct MCV RDW Plt Count Lymph % (Auto) [place] % (Auto) Lymph # (Auto) Seg Neutrophils % Seg Neuts % (Manual) Lymphocytes % (Manual) Monocytes % (Manual) Nucleated RBC % Lymphocytes # (Manual) D-Dimer Heparin Anti-Xa Level ABG pH POC ABG pCO2 89.7 H POC ABG pO2 60.2 L ABG pO2 ABG Hemoglobin 8.8 L ABG Oxyhemoglobin 86.9 L ABG Sodium 153.6 H ABG Potassium ABG Chloride ABG Glucose 195 H Carboxyhemoglobin Sodium Potassium Chloride Carbon Dioxide BUN Creatinine Glucose POC Glucose 157 H 186 H Lactic Acid Calcium Phosphorus Magnesium AST ALT Total Creatine Kinase CK-MB (CK-2) Troponin T Total Protein Albumin Triglycerides Cholesterol LDL Cholesterol Direct HDL Cholesterol TSH Arterial Blood Glucose 195 H Arterial Blood Ionized Calcium Urine WBC (Auto) Urine Creatinine Urine Total Protein Crossmatch 05/05/21 05/05/21 05/06/21 17:50 23:24 00:05 RBC Hgb Hct MCV RDW Plt Count Lymph % (Auto) [place] % (Auto) Lymph # (Auto) Seg Neutrophils % Seg Neuts % (Manual) Lymphocytes % (Manual) Monocytes % (Manual) Nucleated RBC % Lymphocytes # (Manual) D-Dimer Heparin Anti-Xa Level ABG pH POC ABG pCO2 POC ABG pO2 ABG pO2 ABG Hemoglobin ABG Oxyhemoglobin ABG Sodium ABG Potassium ABG Chloride ABG Glucose Carboxyhemoglobin Sodium 152 H D Potassium Chloride Carbon Dioxide BUN Creatinine Glucose POC Glucose 177 H 227 H Lactic Acid Calcium Phosphorus Magnesium AST ALT Total Creatine Kinase CK-MB (CK-2) Troponin T Total Protein Albumin Triglycerides Cholesterol LDL Cholesterol Direct HDL Cholesterol TSH Arterial Blood Glucose Arterial Blood Ionized Calcium Urine WBC (Auto) Urine Creatinine Urine Total Protein Crossmatch 05/06/21 05/06/21 05/06/21 04:26 05:08 06:17 RBC 2.34 L Hgb 7.2 L Hct 22.7 L MCV RDW 16.8 H Plt Count 139 L Lymph % (Auto) [place] % (Auto) Lymph # (Auto) Seg Neutrophils % Seg Neuts % (Manual) Lymphocytes % (Manual) Monocytes % (Manual) Nucleated RBC % Lymphocytes # (Manual) D-Dimer Heparin Anti-Xa Level ABG pH 7.292 L POC ABG pCO2 93.8 H POC ABG pO2 47.8 L ABG pO2 ABG Hemoglobin 7.9 L ABG Oxyhemoglobin 76.2 L ABG Sodium 145.7 H ABG Potassium ABG Chloride ABG Glucose 245 H Carboxyhemoglobin 1.6 H Sodium Potassium Chloride Carbon Dioxide BUN Creatinine Glucose POC Glucose 252 H Lactic Acid Calcium Phosphorus Magnesium AST ALT Total Creatine Kinase CK-MB (CK-2) Troponin T Total Protein Albumin Triglycerides Cholesterol LDL Cholesterol Direct HDL Cholesterol TSH Arterial Blood Glucose 245 H Arterial Blood Ionized Calcium Urine WBC (Auto) Urine Creatinine Urine Total Protein Crossmatch 05/06/21 05/06/21 05/06/21 06:17 10:40 11:34 RBC Hgb Hct MCV RDW Plt Count Lymph % (Auto) [place] % (Auto) Lymph # (Auto) Seg Neutrophils % Seg Neuts % (Manual) Lymphocytes % (Manual) Monocytes % (Manual) Nucleated RBC % Lymphocytes # (Manual) D-Dimer Heparin Anti-Xa Level ABG pH POC ABG pCO2 POC ABG pO2 ABG pO2 ABG Hemoglobin ABG Oxyhemoglobin ABG Sodium ABG Potassium ABG Chloride ABG Glucose Carboxyhemoglobin Sodium 150 H Potassium Chloride Carbon Dioxide 47 H* BUN 80 H Creatinine 1.6 H Glucose 264 H POC Glucose 208 H Lactic Acid Calcium Phosphorus Magnesium AST ALT Total Creatine Kinase CK-MB (CK-2) Troponin T Total Protein Albumin Triglycerides Cholesterol LDL Cholesterol Direct HDL Cholesterol TSH Arterial Blood Glucose Arterial Blood Ionized Calcium Urine WBC (Auto) Urine Creatinine Urine Total Protein Crossmatch See Detail 05/06/21 05/06/21 05/06/21 13:41 14:31 16:29 RBC Hgb Hct MCV RDW Plt Count Lymph % (Auto) [place] % (Auto) Lymph # (Auto) Seg Neutrophils % Seg Neuts % (Manual) Lymphocytes % (Manual) Monocytes % (Manual) Nucleated RBC % Lymphocytes # (Manual) D-Dimer Heparin Anti-Xa Level ABG pH 7.117 L 7.275 L POC ABG pCO2 128.1 H 74.7 H POC ABG pO2 49.7 L 37.6 L ABG pO2 ABG Hemoglobin 8.3 L 5.3 L ABG Oxyhemoglobin 71.6 L 63.2 L ABG Sodium ABG Potassium ABG Chloride 97.0 L ABG Glucose 247 H 239 H Carboxyhemoglobin 1.6 H Sodium Potassium Chloride Carbon Dioxide BUN Creatinine Glucose POC Glucose Lactic Acid Calcium Phosphorus Magnesium AST ALT Total Creatine Kinase CK-MB (CK-2) Troponin T Total Protein Albumin Triglycerides 215 H Cholesterol LDL Cholesterol Direct HDL Cholesterol TSH Arterial Blood Glucose 247 H 239 H Arterial Blood Ionized Calcium 4.2 L 4.1 L Urine WBC (Auto) Urine Creatinine Urine Total Protein Crossmatch 05/06/21 05/06/21 05/07/21 17:50 23:51 02:57 RBC Hgb Hct MCV RDW Plt Count Lymph % (Auto) [place] % (Auto) Lymph # (Auto) Seg Neutrophils % Seg Neuts % (Manual) Lymphocytes % (Manual) Monocytes % (Manual) Nucleated RBC % Lymphocytes # (Manual) D-Dimer Heparin Anti-Xa Level ABG pH 7.208 L POC ABG pCO2 91.5 H POC ABG pO2 51.2 L ABG pO2 ABG Hemoglobin 10.5 L ABG Oxyhemoglobin 78.7 L ABG Sodium ABG Potassium ABG Chloride 97.0 L ABG Glucose 251 H Carboxyhemoglobin Sodium Potassium Chloride Carbon Dioxide BUN Creatinine Glucose POC Glucose 244 H 230 H Lactic Acid Calcium Phosphorus Magnesium AST ALT Total Creatine Kinase CK-MB (CK-2) Troponin T Total Protein Albumin Triglycerides Cholesterol LDL Cholesterol Direct HDL Cholesterol TSH Arterial Blood Glucose 251 H Arterial Blood Ionized Calcium 4.4 L Urine WBC (Auto) Urine Creatinine Urine Total Protein Crossmatch 05/07/21 05/07/21 05/07/21 05:20 05:20 05:32 RBC 3.22 L Hgb 10.0 L Hct MCV RDW 17.1 H Plt Count 116 L Lymph % (Auto) [place] % (Auto) Lymph # (Auto) Seg Neutrophils % Seg Neuts % (Manual) Lymphocytes % (Manual) Monocytes % (Manual) Nucleated RBC % Lymphocytes # (Manual) D-Dimer Heparin Anti-Xa Level ABG pH POC ABG pCO2 POC ABG pO2 ABG pO2 ABG Hemoglobin ABG Oxyhemoglobin ABG Sodium ABG Potassium ABG Chloride ABG Glucose Carboxyhemoglobin Sodium Potassium Chloride 97.2 L Carbon Dioxide 36 H D BUN 93 H Creatinine 2.1 H Glucose 238 H POC Glucose 225 H Lactic Acid Calcium Phosphorus Magnesium 2.40 H AST 71 H ALT Total Creatine Kinase CK-MB (CK-2) Troponin T Total Protein 5.1 L Albumin 2.2 L Triglycerides Cholesterol LDL Cholesterol Direct HDL Cholesterol TSH Arterial Blood Glucose Arterial Blood Ionized Calcium Urine WBC (Auto) Urine Creatinine Urine Total Protein Crossmatch Allied health notes reviewed: nursing
--- NOTE | 2021-05-07 11:58 | XRay Report ---
CHEST - 1 VIEW 1133 hours INDICATION: Pneumonia COMPARISON: Yesterday FINDINGS: Support devices: Stable support device positioning. Heart: Stable cardiomediastinal silhouette. Lungs/pleura: Stable diffuse bilateral interstitial infiltrates or edema. No large pleural effusion or pneumothorax has developed. Additional findings: None. IMPRESSION: Unchanged exam. Signer Name: Dexter Haile Jr, MD Signed: 05/07/2021 11:53 AM Workstation Name: [id number]
[2021-05-07] MEDS ORDERED: FUROSEMIDE 40 MG/4 ML INJ IV ONE (13:00)
[2021-05-07] MEDS: cefTRIAXone/NS 2 GM/100 ML 2 GM/100 ML BAG IV SCH (13:45)
--- NOTE | 2021-05-07 14:33 | Progress Note ---
Assessment and Plan This is a 66-year-old female with HTN, HLD, prior CVA with resulting left-sided weakness present today with emergency department via EMS for AMS and new onset seizures with increased left-sided weakness. Upon arrival to the emergency room patient was intubated for airway protection and hypoxia. Patient was admitted to the hospital service with new onset seizures, acute hypoxic respiratory failure with pulmonary embolism on CTA, acute kidney injury, rhabdomyolysis. Assessment and plan: --New onset sz; metabolic encephalopathy new onset seizures - on keppra PERRL; no commands but remains sedated on prop and ativan CT head on admit- IMPRESSION: Encephalomalacia in the right temporal lobe, frontal lobe; no acute/subacute parenchymal lesions MRI Encephalomalacia in the right cerebral hemisphere - see report will need repeat CT per neuro when PEEP is dec; Dr Arrington has told RN's not to take to CT on level of vent support she is requiring daily SAT limited by hypoxia RAAS goal neg 4 seroquel BID; following QT case management following family updated daily on plan of care --History of CVA with left-sided weakness Supportive care, neuro consulted, patient currently intubated asa/statin --hypotension likely volume depletion/sepsis or combination of the 2 echo 04/22 see report -normal biV function s/p adenosine and amiodarone on 05/03 for some tachycardia Vasopressors for blood pressure support --Acute hypoxic resp failure likely due to PE and ILD present on CTA; refractory hypoxia requiring MV; permissive hypercapnia to Ph of 7.2 intubated in ER; remains ventilated Patient on 100% FiO2 Critical care following Serial ABGs CT noted - a/c lung disease evident with ILD, PE's noted US BLE neg for DVT trending lactate/ABG and chest xrays continue nebs continue solumedrol will likely need trach Antibiotic therapy --illeus , resolved, now tolerating tube feeding diet TF at goal nutrition following PPI bowel reg - colace/senna/miralax --LIZBETH likely due to ATN Corral; exchange 05/05 strict I/O trend and replace electrolytes as needed trend BUN/CR/CK Nephrology reconsulted D5W gtt FWF --Hyponatremia, resolved with IV fluid -- acute Pulmonary emboli s/p VTE on lovenox BID -now on hold for severe anemia requiring transfusion trending coags/Xa trend CBC no bleeding on exam LE dopplers neg for DVT; positive CTA for PE on admit -- lactic acidosis, GNR UTI covid neg afebrile but lactic acid high and pt now on NE and vaso; also ST on monitor abx: cefepime (vanco d/c d/t UC with GNR), Corral change 05/05 continue to trend temp and WBC curve --Severe anemia, status post 2 units of transfusion --DVT prophylaxis, with SCD The high probability of a clinically significant, sudden or life threatening deterioration of the [respiratory] system(s) required my full and direct attention, intervention and personal management. The aggregate critical care time was [35] minutes. This time is in addition to time spent performing reported procedures but includes the following: [x] Data Review and interpretation [x] Patient assessment and monitoring of vital signs [x] Documentation [x] Medication orders and management Disposition Plan: ICU Total Time Spent with Patient (Minutes): 35 Daily clinical course: 04-30 NO ACUTE EVENTS OVERNIGHT; diuresis with 40 mg IV lasix 05-01 no acute events overnight; diuresis with 40 mg IV lasix 05-02: diuresis with lasix 40 mg IV during the day - pt still grossly pos per I/O; and pt weight, overnight pt persistently tachycardic given adenosine and amio gtt 05/04: Nephrology will try Lasix, [facility] adjust advanced to APRV to help with ventilation. Will obtain BMP at 2100. [facility] okay with SPO2 greater than 88, pH of greater than 7.2. Hypernatremia to 160, started on D5 W, severe hypercapnia noted on ABG and patient ventilator settings was changed. Lactic acidosis noted with hyperglycemia. Hyperkalemia noted which was medically treated. 05/05: Lasix again today per nephro., increase in Plow to 30 post abg per ccm, increase in D5W gtt and FWF q200 and will restart TF. Vanco d/c r/t GNR in urine and corral changed. Remains on levo and vaso. 05/06: BP steadily decreasing. Levophed gtt titrated up, stop TF, infuse 2 units of PRBC ,and gave 1 L bolus of LR. Nephro and PCCM recs noted. 05/07: H&H stable after transfusing 2 minutes packed RBC yesterday. Creatinine slightly elevated today -nephrology following. We will repeat BMP tomorrow. Sodium level normalized. Patient remains on mechanical ventilation with Levophed. Subjective Date of service: 05/07/21 Principal diagnosis: Acute kidney injury, rhabdomyolysis Interval history: Patient seen and examined. Medical records and medication list reviewed. No acute event overnight noted by the RN. Patient remains on pressor support and mechanical ventilation Discussed plan of care at bedside with patient's RN. Objective - Exam Narrative Exam: General appearance: Present: no acute distress, well-nourished, other (Sedated on vent) - EENT Eyes: Present: PERRL - Neck Neck: Present: supple - Respiratory Respiratory effort: normal Respiratory: bilateral: diminished - Cardiovascular Rhythm: regular - Extremities Extremities: no ischemia, pulses symmetrical Peripheral Pulses: within normal limits - Abdominal General gastrointestinal: soft, non-tender - Integumentary Integumentary: Present: warm, dry - Psychiatric Psychiatric: other (sedated) - Neurologic Neurologic: other (sedated) - Constitutional Vitals: Vital Signs - 12hr 05/07/21 05/07/21 05/07/21 02:45 03:00 03:15 Temperature Pulse Rate 111 H 113 H 112 H Pulse Rate [ Anterior Bilateral] Respiratory 30 H 30 H 30 H Rate Respiratory Rate [Anterior Bilateral] Blood Pressure 133/74 127/67 113/63 O2 Sat by Pulse 93 91 81 L Oximetry 05/07/21 05/07/21 05/07/21 03:30 03:45 04:00 Temperature 98.0 F Pulse Rate 107 H 109 H 112 H Pulse Rate [ Anterior Bilateral] Respiratory 27 H 30 H 28 H Rate Respiratory Rate [Anterior Bilateral] Blood Pressure 105/66 108/61 115/64 O2 Sat by Pulse 92 88 92 Oximetry 05/07/21 05/07/21 05/07/21 04:06 04:15 04:30 Temperature Pulse Rate 111 H 111 H 108 H Pulse Rate [ Anterior Bilateral] Respiratory 29 H 28 H Rate Respiratory Rate [Anterior Bilateral] Blood Pressure 106/65 123/65 107/64 O2 Sat by Pulse 87 86 91 Oximetry 05/07/21 05/07/21 05/07/21 04:45 05:00 05:16 Temperature Pulse Rate 112 H 108 H 112 H Pulse Rate [ Anterior Bilateral] Respiratory 28 H 27 H 31 H Rate Respiratory Rate [Anterior Bilateral] Blood Pressure 103/64 99/66 98/65 O2 Sat by Pulse 77 L 94 92 Oximetry 05/07/21 05/07/21 05/07/21 05:25 05:30 05:46 Temperature Pulse Rate 108 H 108 H Pulse Rate [ Anterior Bilateral] Respiratory 29 H 30 H Rate Respiratory Rate [Anterior Bilateral] Blood Pressure 99/66 86/68 O2 Sat by Pulse 87 91 90 Oximetry 05/07/21 05/07/21 05/07/21 06:00 06:16 06:30 Temperature Pulse Rate 112 H 112 H 108 H Pulse Rate [ Anterior Bilateral] Respiratory 30 H 30 H 30 H Rate Respiratory Rate [Anterior Bilateral] Blood Pressure 86/68 119/71 130/76 O2 Sat by Pulse 93 92 89 Oximetry 05/07/21 05/07/21 05/07/21 06:45 07:00 07:15 Temperature 98.8 F Pulse Rate 104 H 105 H 108 H Pulse Rate [ Anterior Bilateral] Respiratory 32 H 30 H 32 H Rate Respiratory Rate [Anterior Bilateral] Blood Pressure 135/79 132/71 147/75 O2 Sat by Pulse 93 93 93 Oximetry 05/07/21 05/07/21 05/07/21 07:30 07:45 07:57 Temperature Pulse Rate 108 H 103 H 109 H Pulse Rate [ 108 H Anterior Bilateral] Respiratory 32 H 30 H Rate Respiratory 30 H Rate [Anterior Bilateral] Blood Pressure 141/78 144/76 123/74 O2 Sat by Pulse 94 95 95 Oximetry 05/07/21 05/07/21 05/07/21 08:00 09:50 11:10 Temperature Pulse Rate 108 H 113 H Pulse Rate [ Anterior Bilateral] Respiratory 32 H Rate Respiratory Rate [Anterior Bilateral] Blood Pressure 154/78 102/62 O2 Sat by Pulse 95 95 88 Oximetry 05/07/21 12:00 Temperature 98.7 F Pulse Rate Pulse Rate [ Anterior Bilateral] Respiratory Rate Respiratory Rate [Anterior Bilateral] Blood Pressure O2 Sat by Pulse Oximetry - Labs CBC & Chem 7: 05/09/21 09:15 05/09/21 09:15 Labs: Abnormal lab results 05/06/21 05/06/21 05/06/21 Range/Units 10:40 14:31 16:29 RBC (3.65-5.03) M/mm3 Hgb (10.1-14.3) gm/dl RDW (13.2-15.2) % Plt Count (140-440) K/mm3 ABG pH 7.275 L (7.320-7.450) POC ABG pCO2 74.7 H (32.0-48.0) mmHg POC ABG pO2 37.6 L (83-108) mmHg ABG Hemoglobin 5.3 L (12.0-17.5) ABG Oxyhemoglobin 63.2 L (94-98) ABG Chloride (98-107) mmol/L ABG Glucose 239 H (65-95) mg/dL Carboxyhemoglobin 1.6 H (0.5-1.5) Chloride (98-107) mmol/L Carbon Dioxide (22-30) mmol/L BUN (7-17) mg/dL Creatinine (0.6-1.2) mg/dL Glucose (65-100) mg/dL POC Glucose (70-105) mg/dL Magnesium (1.7-2.3) mg/dL AST (5-40) units/L Total Protein (6.3-8.2) g/dL Albumin (3.9-5) g/dL Triglycerides 215 H (2-149) mg/dL Arterial Blood Glucose 239 H (65-95) mg/dL Arterial Blood Ionized Calcium 4.1 L (4.6-5.3) mg/dL Crossmatch See Detail 05/06/21 05/06/21 05/07/21 Range/Units 17:50 23:51 02:57 RBC (3.65-5.03) M/mm3 Hgb (10.1-14.3) gm/dl RDW (13.2-15.2) % Plt Count (140-440) K/mm3 ABG pH 7.208 L (7.320-7.450) POC ABG pCO2 91.5 H (32.0-48.0) mmHg POC ABG pO2 51.2 L (83-108) mmHg ABG Hemoglobin 10.5 L (12.0-17.5) ABG Oxyhemoglobin 78.7 L (94-98) ABG Chloride 97.0 L (98-107) mmol/L ABG Glucose 251 H (65-95) mg/dL Carboxyhemoglobin (0.5-1.5) Chloride (98-107) mmol/L Carbon Dioxide (22-30) mmol/L BUN (7-17) mg/dL Creatinine (0.6-1.2) mg/dL Glucose (65-100) mg/dL POC Glucose 244 H 230 H (70-105) mg/dL Magnesium (1.7-2.3) mg/dL AST (5-40) units/L Total Protein (6.3-8.2) g/dL Albumin (3.9-5) g/dL Triglycerides (2-149) mg/dL Arterial Blood Glucose 251 H (65-95) mg/dL Arterial Blood Ionized Calcium 4.4 L (4.6-5.3) mg/dL Crossmatch 05/07/21 05/07/21 05/07/21 Range/Units 05:20 05:20 05:32 RBC 3.22 L (3.65-5.03) M/mm3 Hgb 10.0 L (10.1-14.3) gm/dl RDW 17.1 H (13.2-15.2) % Plt Count 116 L (140-440) K/mm3 ABG pH (7.320-7.450) POC ABG pCO2 (32.0-48.0) mmHg POC ABG pO2 (83-108) mmHg ABG Hemoglobin (12.0-17.5) ABG Oxyhemoglobin (94-98) ABG Chloride (98-107) mmol/L ABG Glucose (65-95) mg/dL Carboxyhemoglobin (0.5-1.5) Chloride 97.2 L (98-107) mmol/L Carbon Dioxide 36 H D (22-30) mmol/L BUN 93 H (7-17) mg/dL Creatinine 2.1 H (0.6-1.2) mg/dL Glucose 238 H (65-100) mg/dL POC Glucose 225 H (70-105) mg/dL Magnesium 2.40 H (1.7-2.3) mg/dL AST 71 H (5-40) units/L Total Protein 5.1 L (6.3-8.2) g/dL Albumin 2.2 L (3.9-5) g/dL Triglycerides (2-149) mg/dL Arterial Blood Glucose (65-95) mg/dL Arterial Blood Ionized Calcium (4.6-5.3) mg/dL Crossmatch 05/07/21 05/07/21 Range/Units 11:00 11:45 RBC (3.65-5.03) M/mm3 Hgb (10.1-14.3) gm/dl RDW (13.2-15.2) % Plt Count (140-440) K/mm3 ABG pH 7.207 L (7.320-7.450) POC ABG pCO2 92.2 H (32.0-48.0) mmHg POC ABG pO2 51.2 L (83-108) mmHg ABG Hemoglobin 10.5 L (12.0-17.5) ABG Oxyhemoglobin 77.9 L (94-98) ABG Chloride (98-107) mmol/L ABG Glucose 214 H (65-95) mg/dL Carboxyhemoglobin (0.5-1.5) Chloride (98-107) mmol/L Carbon Dioxide (22-30) mmol/L BUN (7-17) mg/dL Creatinine (0.6-1.2) mg/dL Glucose (65-100) mg/dL POC Glucose 177 H (70-105) mg/dL Magnesium (1.7-2.3) mg/dL AST (5-40) units/L Total Protein (6.3-8.2) g/dL Albumin (3.9-5) g/dL Triglycerides (2-149) mg/dL Arterial Blood Glucose 214 H (65-95) mg/dL Arterial Blood Ionized Calcium 4.5 L (4.6-5.3) mg/dL Crossmatch HEART Score - HEART Score Age: 45-65 Risk factors: 1-2 risk factors Troponin: Troponin T 0.055 ng/mL (0.00-0.029) H 04/21/21 16:32 - Critical Actions Critical Actions: 0-3 pts:0.9-1.7%risk of adverse cardiac event.Candidate for discharge
[2021-05-07] MEDS: NORepinephrine/NS 4 MG-250 ML 4 MG/250 ML BAG IV SCH (14:46)
[2021-05-07 15:31] LABS: Band Neutrophils # (Manual) 1.6 K/mm3; Myelocytes # (Manual) 0.1 K/mm3; Total Cells Counted 100
[2021-05-07 15:36] LABS: Ovalocytes Few; Platelet Estimate Consistent w Auto
--- NOTE | 2021-05-07 16:07 | Progress Note ---
Assessment and Plan - Patient Problems (1) LIZBETH (acute kidney injury) Current Visit: Yes Status: Acute Plan to address problem: Likely in the setting of acute tubular necrosis and prerenal injury with now worsening volume overload and recurrent acute kidney injury noted on this admission. Agree with hemodynamic management and appropriate pressor support. Unfortunately her overall hemodynamics have worsened over the last 24 hours. we will give 1 dose of Lasix 20 mg IV today. (2) Acute respiratory failure with hypoxia Current Visit: Yes Status: Acute Plan to address problem: Chest x-ray reviewed with findings concerning for volume overload and pulmonary edema. FiO2 remains 100% on current vent settings. Patient had responded to previous lasix doses, but with her current worsening hemodynamic parameters, Lasix was held yesterday. Despite today's renal function I do think that we should at least try to give 1 dose of Lasix 20 mg IV for management of her significant volume overload. (3) Hypotension Current Visit: Yes Status: Acute Plan to address problem: Pressor support to maintain mean arterial pressures above 65 mmHg.. (4) Hyperkalemia Current Visit: Yes Status: Acute Plan to address problem: Medical management at this time and will closely monitor. (5) Hypernatremia Current Visit: Yes Status: Acute Plan to address problem: On D5W at 100 cc/hr. FWF has been discontinued at this time secondary to findings of abdominal ileus. Per [employer] she did have a BM yesterday. Would reassess and if illeus resolving/improved post OG tube placement. Ideally in her situation given her respiratory status and pulmonary edema noted on chest xray, would want to minimize continuous IVF as best we can. Subjective Date of service: 05/07/21 Principal diagnosis: Acute kidney injury, rhabdomyolysis Interval history: secondary to worsening renal failure we are limited in how aggressive we can be with diuresis. However given her current respiratory status would recommend at least to try Lasix 20 mg IV today. Overall no other real significant acute changes overnight. Overall prognosis remains poor at this time. Objective - Vital Signs Vital signs: Vital Signs - 12hr 05/07/21 05/07/21 05/07/21 04:06 04:15 04:30 Temperature Pulse Rate 111 H 111 H 108 H Pulse Rate [ Anterior Bilateral] Respiratory 29 H 28 H Rate Respiratory Rate [Anterior Bilateral] Blood Pressure 106/65 123/65 107/64 O2 Sat by Pulse 87 86 91 Oximetry 05/07/21 05/07/21 05/07/21 04:45 05:00 05:16 Temperature Pulse Rate 112 H 108 H 112 H Pulse Rate [ Anterior Bilateral] Respiratory 28 H 27 H 31 H Rate Respiratory Rate [Anterior Bilateral] Blood Pressure 103/64 99/66 98/65 O2 Sat by Pulse 77 L 94 92 Oximetry 05/07/21 05/07/21 05/07/21 05:25 05:30 05:46 Temperature Pulse Rate 108 H 108 H Pulse Rate [ Anterior Bilateral] Respiratory 29 H 30 H Rate Respiratory Rate [Anterior Bilateral] Blood Pressure 99/66 86/68 O2 Sat by Pulse 87 91 90 Oximetry 05/07/21 05/07/21 05/07/21 06:00 06:16 06:30 Temperature Pulse Rate 112 H 112 H 108 H Pulse Rate [ Anterior Bilateral] Respiratory 30 H 30 H 30 H Rate Respiratory Rate [Anterior Bilateral] Blood Pressure 86/68 119/71 130/76 O2 Sat by Pulse 93 92 89 Oximetry 05/07/21 05/07/21 05/07/21 06:45 07:00 07:15 Temperature 98.8 F Pulse Rate 104 H 105 H 108 H Pulse Rate [ Anterior Bilateral] Respiratory 32 H 30 H 32 H Rate Respiratory Rate [Anterior Bilateral] Blood Pressure 135/79 132/71 147/75 O2 Sat by Pulse 93 93 93 Oximetry 05/07/21 05/07/21 05/07/21 07:30 07:45 07:57 Temperature Pulse Rate 108 H 103 H 109 H Pulse Rate [ 108 H Anterior Bilateral] Respiratory 32 H 30 H Rate Respiratory 30 H Rate [Anterior Bilateral] Blood Pressure 141/78 144/76 123/74 O2 Sat by Pulse 94 95 95 Oximetry 05/07/21 05/07/21 05/07/21 08:00 09:50 11:10 Temperature Pulse Rate 108 H 113 H Pulse Rate [ Anterior Bilateral] Respiratory 32 H Rate Respiratory Rate [Anterior Bilateral] Blood Pressure 154/78 102/62 O2 Sat by Pulse 95 95 88 Oximetry 05/07/21 05/07/21 12:00 15:21 Temperature 98.7 F Pulse Rate 115 H Pulse Rate [ Anterior Bilateral] Respiratory Rate Respiratory Rate [Anterior Bilateral] Blood Pressure 118/63 O2 Sat by Pulse 96 Oximetry - General Appearance General appearance: chronically ill, intubated, frail EENT: ATNC Neck: no JVD Respiratory: Present: Decreased Breath Sounds Cardiology: regular Gastrointestinal: normal Integumentary: no rash Musculoskeletal: deferred - Lab 05/07/21 05:20 05/07/21 05:20 Most recent lab results ABG pH 7.207 (7.320-7.450) L 05/07/21 11:00 ABG pCO2 46.0 mm Hg 04/22/21 17:30 ABG pO2 99.6 mm Hg (80.0-90.0) H 04/22/21 17:30 ABG HCO3 24.4 mmol/L (20.0-26.0) 04/22/21 17:30 ABG O2 Saturation 79.2 (0-100) 05/07/21 11:00 Calcium 8.7 mg/dL (8.4-10.2) 05/07/21 05:20 Phosphorus 3.00 mg/dL (2.5-4.5) D 05/05/21 04:58 Magnesium 2.40 mg/dL (1.7-2.3) H 05/07/21 05:20 Urine Creatinine 65.6 mg/dL (0.1-20.0) H 05/03/21 16:10 Urine Sodium 38 mmol/L 05/03/21 16:10 Urine Total Protein 86 mg/dL (5-11.8) H 04/22/21 13:03 Medications & Allergies - Medications Allergies/Adverse Reactions: Allergies No Known Allergies Allergy (Unverified 03/04/19 19:33) Home Medications: Home Medications Medication Instructions Recorded Confirmed Last Taken Type Lipitor 40 mg PO QHS #30 03/10/19 04/25/21 Unknown Rx Aspirin 300 mg PO QDAY 04/25/21 04/25/21 Unknown History Aspirin [Aspirin BABY CHEW TAB] 81 mg PO QDAY 04/25/21 04/25/21 Unknown History Sertraline [Zoloft] 50 mg PO QDAY 04/25/21 04/25/21 Unknown History amLODIPine 10 mg PO QDAY 04/25/21 04/25/21 Unknown History hydroCHLOROthiazide 12.5 mg PO QDAY 04/25/21 04/25/21 Unknown History [Hydrochlorothiazide] Active Medications: Generic Name Dose Route Start Last Admin Trade Name Freq PRN Reason Stop Dose Admin Acetaminophen 650 mg 04/21/21 21:11 05/06/21 04:04 Acetaminophen 325 Mg Tab PO 650 mg Q4H PRN Administration Pain MILD(1-3)/Fever >100.5/DICKINSON Acetaminophen 650 mg 05/03/21 23:39 Acetaminophen 650 Mg Rect Supp MT Q6H PRN Feverr>100.5 Lipase/Protease/Amylase 1 each 04/22/21 10:51 Lipase 10,500/Protease 25,000/Amylase 43,750 (Units) Dr Ryan FEEDTUBE PRN PRN For Clogged Feeding Tube Arformoterol Tartrate 15 mcg 04/29/21 20:00 05/07/21 07:57 Arformoterol 15 Mcg/2 Ml Nebu IH 15 mcg Q12HRT [facility]OR Administration Aspirin 325 mg 05/01/21 13:00 05/07/21 09:32 Aspirin 325 Mg Tab PO 325 mg QDAY [facility]OR Administration Atorvastatin Calcium 40 mg 05/01/21 22:00 05/06/21 21:45 Atorvastatin 40 Mg Tab PO 40 mg QHS [facility]OR Administration Budesonide 0.5 mg 04/29/21 20:00 05/07/21 07:57 Budesonide 0.5 Mg/2 Ml Nebu IH 0.5 mg Q12HRT MINOR Administration Dextrose 50 ml 05/04/21 19:00 Dextrose 50% In Water (25gm) 50 Ml Syringe IV Q30MIN PRN Hypoglycemia Protocol Famotidine 20 mg 05/04/21 10:00 05/07/21 09:32 Famotidine 20 Mg Tab PO 20 mg DAILY [facility] Administration Hydralazine HCl 10 mg 04/29/21 12:23 Hydralazine 20 Mg/1 Ml Inj IV Q4H PRN Hypertension Hydrophilic Ointment 1 applic 04/21/21 15:46 Lip Therapy Vaseline TP Q2HR PRN Dry Lips Lorazepam 100 mg/ Sodium 100 mls @ 1 mls/hr 04/30/21 11:00 05/07/21 10:08 Chloride/ Miscellaneous IV 1 mg/hr Information TITR MINOR 1 mls/hr Titration Protocol 1 MG/HR Vasopressin 20 unit/ Sodium 101 mls @ 9.09 mls/hr 05/02/21 21:00 05/06/21 23:22 Chloride IV 0.03 units/min TITR MINOR 9.09 mls/hr Administration Protocol 0.03 UNITS/MIN Norepinephrine 4 mg in 250 mls @ 7.5 mls/hr 05/03/21 02:00 05/07/21 14:46 Levophed Drip 4 Mg/Ns 250 Ml IV 4 mcg/min TITR [facility]OR 15 mls/hr Administration Protocol 2 MCG/MIN Phenylephrine HCl 100 mg/ 100 mls @ 3 mls/hr 05/06/21 11:00 05/06/21 17:07 Sodium Chloride IV 0 mcg/min TITR MINOR 0 mls/hr Titration Protocol 50 MCG/MIN Ceftriaxone Sodium 2 gm in 100 mls @ 200 mls/hr 05/07/21 11:00 05/07/21 13:45 Rocephin/Ns 2 Gm/100 Ml IV 05/09/21 11:29 200 mls/hr Q24H [facility] Administration Protocol Insulin Glargine 5 units 05/07/21 22:00 Insulin Glargine 100 Units/Ml SUB-Q QHS [facility] Insulin Human Lispro 0 unit 05/03/21 00:00 05/07/21 06:04 Insulin Lispro 100 Unit/Ml SUB-Q 4 unit Q6HR [facility] Administration Protocol Levetiracetam 750 mg 04/25/21 10:00 05/07/21 09:31 Levetiracetam 500 Mg/5 Ml Oral Liqd PO 750 mg BID [facility] Administration Methylprednisolone Sodium Succinate 60 mg 04/28/21 06:00 05/07/21 13:45 Methylprednisolone Sod Succinate 40 Mg/1 Ml Inj IV 60 mg Q6H [facility] Administration Multi-Ingred Cream/Lotion/Oil/Oint 1 applic 04/21/21 15:46 Mineral Oil/Petrolatum, White Ophth Oint 3.5 Gm OU Q4HR PRN Dry Eye(s) Ondansetron HCl 4 mg 05/03/21 18:23 05/03/21 18:40 Ondansetron 4 Mg/2 Ml Inj IV 4 mg Q6H PRN Administration Nausea And Vomiting Polyethylene Glycol 17 gm 05/02/21 15:00 Polyethylene Glycol 3350 17 Gm Powder PO QDAY PRN Constipation Quetiapine Fumarate 25 mg 04/30/21 11:00 05/07/21 09:32 Quetiapine 25 Mg Tab PO 25 mg BID MINOR Administration Senna/Docusate Sodium 1 tab 04/26/21 22:00 05/06/21 21:45 Sennosides/Docusate Sodium 8.6/50 Mg Tab FEEDTUBE 1 tab QHS MINOR Administration Simple Syrup 15 ml 04/22/21 10:51 Simple Syrup 15 Ml FEEDTUBE PRN PRN Hypoglycemia Simple Syrup 30 ml 04/22/21 10:51 Simple Syrup 15 Ml FEEDTUBE PRN PRN Hypoglycemia Sodium Bicarbonate 325 mg 04/22/21 10:51 Sodium Bicarbonate 325 Mg Tab FEEDTUBE PRN PRN For Clogged Feeding Tube Sodium Chloride 10 ml 04/21/21 22:00 05/07/21 09:35 Sodium Chloride 0.9% 10 Ml Flush Syringe IV 10 ml BID MINOR Administration Sodium Chloride 10 ml 04/21/21 21:11 04/27/21 02:54 Sodium Chloride 0.9% 10 Ml Flush Syringe IV 10 ml PRN PRN Administration LINE FLUSH
[2021-05-07] MEDS: SENNOSIDES/DOCUSATE SODIUM 8.6/50 MG TAB FEEDTUBE SCH (21:27)
[2021-05-07] MEDS ORDERED: INSULIN GLARGINE 100 UNITS/ML SUB-Q SCH (22:00)
[2021-05-07] MEDS: LORazepam 100 MG in SODIUM CHLORIDE 0.9% 50 ML, EMPTY BAG 0 ML IV SCH (23:22)
[2021-05-08] MEDS: methylPREDNISolone Sod Succinate 40 MG/1 ML INJ IV SCH ×5 (02:23→19:14)
[2021-05-08] MEDS: INSULIN LISPRO 100 UNIT/ML SUB-Q SCH ×4 (02:24→19:41)
[2021-05-08] MEDS: BUDESONIDE 0.5 MG/2 ML NEBU IH SCH ×2 (07:57→21:00)
[2021-05-08] MEDS: ARFORMOTEROL 15 MCG/2 ML NEBU IH SCH ×2 (07:57→21:00)
[2021-05-08] MEDS: NORepinephrine/NS 4 MG-250 ML 4 MG/250 ML BAG IV SCH ×2 (08:59→15:31)
[2021-05-08] MEDS: FAMOTIDINE 20 MG TAB PO SCH (09:53)
[2021-05-08] MEDS: levETIRAcetam 500 MG/5 ML ORAL LIQD PO SCH ×2 (09:53→22:00)
[2021-05-08] MEDS: ASPIRIN 325 MG TAB PO SCH (09:53)
[2021-05-08] MEDS: QUEtiapine 25 MG TAB PO SCH ×2 (09:53→22:00)
[2021-05-08] MEDS: FREE WATER PO SCH ×4 (10:07→18:00)
[2021-05-08] MEDS: cefTRIAXone/NS 2 GM/100 ML 2 GM/100 ML BAG IV SCH (10:10)
[2021-05-08] MEDS ORDERED: SODIUM CHLORIDE 0.9% 500 ML 500 ML ONE (10:13)
--- NOTE | 2021-05-08 10:43 | Progress Note ---
Assessment and Plan - Patient Problems (1) LIZBETH (acute kidney injury) Current Visit: Yes Status: Acute Plan to address problem: Likely in the setting of acute tubular necrosis and prerenal injury with now worsening volume overload and recurrent acute kidney injury noted on this admission. Agree with hemodynamic management and appropriate pressor support. Will give another dose of lasix 20 mg IV today. (2) Acute respiratory failure with hypoxia Current Visit: Yes Status: Acute Plan to address problem: Chest x-ray reviewed with findings concerning for volume overload and pulmonary edema. FiO2 remains 100% on current vent settings. Patient had responded to previous lasix doses, but with her current worsening hemodynamic parameters, Lasix was held yesterday. Despite today's renal function I do think that we should at least try to give dose of Lasix 20 mg IV for management of her significant volume overload/pulmonary edema. (3) Hypotension Current Visit: Yes Status: Acute Plan to address problem: Pressor support to maintain mean arterial pressures above 65 mmHg.. (4) Hyperkalemia Current Visit: Yes Status: Acute Plan to address problem: Medical management at this time and will closely monitor. (5) Hypernatremia Current Visit: Yes Status: Acute Plan to address problem: Pending f/u labs this am. Was on D5W at 100 cc/hr. DC at this time. Subjective Date of service: 05/08/21 Principal diagnosis: Acute kidney injury, rhabdomyolysis Interval history: Events overnight reviewed. Remains intubated, on pressor support woth levophed. Received dose of lasix 20 mg IV yesterday. Diuretic response noted. Still remains intubated with Fio2 100%. No new labs this am. Objective - Vital Signs Vital signs: Vital Signs - 12hr 05/07/21 05/07/21 05/07/21 22:46 23:00 23:15 Temperature Pulse Rate 123 H 123 H 124 H Pulse Rate [ Anterior Bilateral] Pulse Rate [ Bilateral] Pulse Rate [ From Monitor] Respiratory 28 H 27 H 27 H Rate Respiratory Rate [Anterior Bilateral] Respiratory Rate [Bilateral ] Blood Pressure 109/50 109/50 90/45 O2 Sat by Pulse 88 89 88 Oximetry 05/07/21 05/07/21 05/07/21 23:30 23:45 23:58 Temperature Pulse Rate 125 H 123 H 123 H Pulse Rate [ Anterior Bilateral] Pulse Rate [ Bilateral] Pulse Rate [ From Monitor] Respiratory 27 H 27 H 28 H Rate Respiratory Rate [Anterior Bilateral] Respiratory Rate [Bilateral ] Blood Pressure 90/45 90/48 90/48 O2 Sat by Pulse 81 L 86 80 L Oximetry 05/08/21 05/08/21 05/08/21 00:00 00:11 00:15 Temperature Pulse Rate 124 H 118 H 122 H Pulse Rate [ Anterior Bilateral] Pulse Rate [ Bilateral] Pulse Rate [ 105 H From Monitor] Respiratory 29 H 27 H Rate Respiratory Rate [Anterior Bilateral] Respiratory Rate [Bilateral ] Blood Pressure 90/48 112/66 106/49 O2 Sat by Pulse 84 90 82 L Oximetry 05/08/21 05/08/21 05/08/21 00:30 00:46 01:00 Temperature Pulse Rate 123 H 124 H 125 H Pulse Rate [ Anterior Bilateral] Pulse Rate [ Bilateral] Pulse Rate [ From Monitor] Respiratory 28 H 27 H 27 H Rate Respiratory Rate [Anterior Bilateral] Respiratory Rate [Bilateral ] Blood Pressure 106/49 92/47 81/51 O2 Sat by Pulse 80 L 82 L 81 L Oximetry 05/08/21 05/08/21 05/08/21 01:15 01:30 01:45 Temperature Pulse Rate 128 H 126 H 138 H Pulse Rate [ Anterior Bilateral] Pulse Rate [ Bilateral] Pulse Rate [ From Monitor] Respiratory 28 H 27 H 26 H Rate Respiratory Rate [Anterior Bilateral] Respiratory Rate [Bilateral ] Blood Pressure 87/51 83/50 103/66 O2 Sat by Pulse 80 L 86 95 Oximetry 05/08/21 05/08/21 05/08/21 02:00 02:15 02:30 Temperature Pulse Rate 125 H 123 H 128 H Pulse Rate [ Anterior Bilateral] Pulse Rate [ Bilateral] Pulse Rate [ From Monitor] Respiratory 25 H 26 H 27 H Rate Respiratory Rate [Anterior Bilateral] Respiratory Rate [Bilateral ] Blood Pressure 106/52 97/54 112/50 O2 Sat by Pulse 65 L 68 L 74 L Oximetry 05/08/21 05/08/21 05/08/21 02:45 03:00 03:15 Temperature Pulse Rate 124 H 125 H 124 H Pulse Rate [ Anterior Bilateral] Pulse Rate [ Bilateral] Pulse Rate [ From Monitor] Respiratory 27 H 26 H 25 H Rate Respiratory Rate [Anterior Bilateral] Respiratory Rate [Bilateral ] Blood Pressure 106/56 115/63 118/64 O2 Sat by Pulse 92 92 96 Oximetry 0805/08/21 05/08/21 03:30 03:44 03:45 Temperature Pulse Rate 127 H 120 H 121 H Pulse Rate [ Anterior Bilateral] Pulse Rate [ Bilateral] Pulse Rate [ From Monitor] Respiratory 26 H 27 H Rate Respiratory Rate [Anterior Bilateral] Respiratory Rate [Bilateral ] Blood Pressure 131/76 123/73 112/65 O2 Sat by Pulse 93 99 99 Oximetry 05/08/21 05/08/21 05/08/21 04:00 04:15 04:30 Temperature 98.3 F Pulse Rate 120 H 123 H 120 H Pulse Rate [ Anterior Bilateral] Pulse Rate [ Bilateral] Pulse Rate [ 105 H From Monitor] Respiratory 26 H 27 H 27 H Rate Respiratory Rate [Anterior Bilateral] Respiratory Rate [Bilateral ] Blood Pressure 128/65 129/65 126/65 O2 Sat by Pulse 98 98 98 Oximetry 05/08/21 05/08/21 05/08/21 04:45 05:00 05:15 Temperature Pulse Rate 119 H 119 H 119 H Pulse Rate [ Anterior Bilateral] Pulse Rate [ Bilateral] Pulse Rate [ From Monitor] Respiratory 26 H 27 H 27 H Rate Respiratory Rate [Anterior Bilateral] Respiratory Rate [Bilateral ] Blood Pressure 118/66 125/61 119/68 O2 Sat by Pulse 98 98 98 Oximetry 05/08/21 05/08/21 05/08/21 05:30 05:45 06:00 Temperature Pulse Rate 122 H 121 H 122 H Pulse Rate [ Anterior Bilateral] Pulse Rate [ Bilateral] Pulse Rate [ From Monitor] Respiratory 27 H 27 H 26 H Rate Respiratory Rate [Anterior Bilateral] Respiratory Rate [Bilateral ] Blood Pressure 115/68 100/67 108/72 O2 Sat by Pulse 98 98 98 Oximetry 05/08/21 05/08/21 05/08/21 06:15 06:30 06:45 Temperature Pulse Rate 118 H 120 H 120 H Pulse Rate [ Anterior Bilateral] Pulse Rate [ Bilateral] Pulse Rate [ From Monitor] Respiratory 27 H 27 H 27 H Rate Respiratory Rate [Anterior Bilateral] Respiratory Rate [Bilateral ] Blood Pressure 97/64 114/63 118/68 O2 Sat by Pulse 99 98 98 Oximetry 05/08/21 05/08/21 05/08/21 07:00 07:15 07:30 Temperature Pulse Rate 122 H 118 H 122 H Pulse Rate [ Anterior Bilateral] Pulse Rate [ Bilateral] Pulse Rate [ From Monitor] Respiratory 27 H 26 H 26 H Rate Respiratory Rate [Anterior Bilateral] Respiratory Rate [Bilateral ] Blood Pressure 118/68 127/65 125/66 O2 Sat by Pulse 98 98 98 Oximetry 05/08/21 05/08/21 05/08/21 07:45 07:57 08:00 Temperature 97.8 F Pulse Rate 119 H 114 H Pulse Rate [ 122 H Anterior Bilateral] Pulse Rate [ 123 H Bilateral] Pulse Rate [ From Monitor] Respiratory 26 H 28 H Rate Respiratory 28 H Rate [Anterior Bilateral] Respiratory 27 H Rate [Bilateral ] Blood Pressure 120/67 118/64 O2 Sat by Pulse 98 90 Oximetry 05/08/21 05/08/21 05/08/21 08:16 08:30 08:31 Temperature Pulse Rate 115 H 85 122 H Pulse Rate [ Anterior Bilateral] Pulse Rate [ Bilateral] Pulse Rate [ From Monitor] Respiratory 28 H 29 H Rate Respiratory Rate [Anterior Bilateral] Respiratory Rate [Bilateral ] Blood Pressure 118/64 76/39 118/68 O2 Sat by Pulse 68 L 73 L 98 Oximetry 05/08/21 05/08/21 05/08/21 08:45 09:00 09:15 Temperature Pulse Rate 133 H 129 H 130 H Pulse Rate [ Anterior Bilateral] Pulse Rate [ Bilateral] Pulse Rate [ From Monitor] Respiratory 26 H 26 H 26 H Rate Respiratory Rate [Anterior Bilateral] Respiratory Rate [Bilateral ] Blood Pressure 100/64 116/62 120/61 O2 Sat by Pulse 79 L 97 94 Oximetry 05/08/21 05/08/21 05/08/21 09:30 09:45 10:00 Temperature Pulse Rate 130 H 132 H 132 H Pulse Rate [ Anterior Bilateral] Pulse Rate [ Bilateral] Pulse Rate [ From Monitor] Respiratory 27 H 26 H 26 H Rate Respiratory Rate [Anterior Bilateral] Respiratory Rate [Bilateral ] Blood Pressure 108/56 112/61 111/64 O2 Sat by Pulse 92 96 97 Oximetry - General Appearance General appearance: intubated, frail EENT: ATNC Neck: no JVD Respiratory: Present: Decreased Breath Sounds Cardiology: regular Gastrointestinal: normal Integumentary: warm and dry Musculoskeletal: deferred - Lab 05/07/21 05:20 05/07/21 05:20 Most recent lab results ABG pH 7.230 (7.320-7.450) L 05/08/21 03:03 ABG pCO2 46.0 mm Hg 04/22/21 17:30 ABG pO2 99.6 mm Hg (80.0-90.0) H 04/22/21 17:30 ABG HCO3 24.4 mmol/L (20.0-26.0) 04/22/21 17:30 ABG O2 Saturation 85.9 (0-100) 05/08/21 03:03 Calcium 8.7 mg/dL (8.4-10.2) 05/07/21 05:20 Phosphorus 3.00 mg/dL (2.5-4.5) D 05/05/21 04:58 Magnesium 2.40 mg/dL (1.7-2.3) H 05/07/21 05:20 Urine Creatinine 65.6 mg/dL (0.1-20.0) H 05/03/21 16:10 Urine Sodium 38 mmol/L 05/03/21 16:10 Urine Total Protein 86 mg/dL (5-11.8) H 04/22/21 13:03 - Allied health notes Allied health notes reviewed: nursing Medications & Allergies - Medications Allergies/Adverse Reactions: Allergies No Known Allergies Allergy (Unverified 03/04/19 19:33) Home Medications: Home Medications Medication Instructions Recorded Confirmed Last Taken Type Lipitor 40 mg PO QHS #30 03/10/19 04/25/21 Unknown Rx Aspirin 300 mg PO QDAY 04/25/21 04/25/21 Unknown History Aspirin [Aspirin BABY CHEW TAB] 81 mg PO QDAY 04/25/21 04/25/21 Unknown History Sertraline [Zoloft] 50 mg PO QDAY 04/25/21 04/25/21 Unknown History amLODIPine 10 mg PO QDAY 04/25/21 04/25/21 Unknown History hydroCHLOROthiazide 12.5 mg PO QDAY 04/25/21 04/25/21 Unknown History [Hydrochlorothiazide] Active Medications: Generic Name Dose Route Start Last Admin Trade Name Freq PRN Reason Stop Dose Admin Acetaminophen 650 mg 04/21/21 21:11 05/06/21 04:04 Acetaminophen 325 Mg Tab PO 650 mg Q4H PRN Administration Pain MILD(1-3)/Fever >100.5/[place]INSON Acetaminophen 650 mg 05/03/21 23:39 Acetaminophen 650 Mg Rect Supp CO Q6H PRN Fever>100.5 Lipase/Protease/Amylase 1 each 04/22/21 10:51 Lipase 10,500/Protease 25,000/Amylase 43,750 (Units) Dr Cap FEEDTUBE PRN PRN For Clogged Feeding Tube Arformoterol Tartrate 15 mcg 04/29/21 20:00 05/08/21 07:57 Arformoterol 15 Mcg/2 Ml Nebu IH 15 mcg Q12HRT MINOR Administration Aspirin 325 mg 05/01/21 13:00 05/08/21 09:53 Aspirin 325 Mg Tab PO 325 mg QDAY MINOR Administration Atorvastatin Calcium 40 mg 05/01/21 22:00 05/07/21 21:26 Atorvastatin 40 Mg Tab PO 40 mg QHS MINOR Administration Budesonide 0.5 mg 04/29/21 20:00 05/08/21 07:57 Budesonide 0.5 Mg/2 Ml Nebu IH 0.5 mg Q12HRT MINOR Administration Dextrose 50 ml 05/04/21 19:00 Dextrose 50% In Water (25gm) 50 Ml Syringe IV Q30MIN PRN Hypoglycemia Protocol Famotidine 20 mg 05/04/21 10:00 05/08/21 09:53 Famotidine 20 Mg Tab PO 20 mg DAILY [facility] Administration Hydralazine HCl 10 mg 04/29/21 12:23 Hydralazine 20 Mg/1 Ml Inj IV Q4H PRN Hypertension Hydrophilic Ointment 1 applic 04/21/21 15:46 Lip Therapy Vaseline TP Q2HR PRN Dry Lips Lorazepam 100 mg/ Sodium 100 mls @ 1 mls/hr 04/30/21 11:00 05/07/21 23:22 Chloride/ Miscellaneous IV 1 mg/hr Information TITR MINOR 1 mls/hr Administration Protocol 1 MG/HR Vasopressin 20 unit/ Sodium 101 mls @ 9.09 mls/hr 05/02/21 21:00 05/06/21 23:22 Chloride IV 0.03 units/min TITR MINOR 9.09 mls/hr Administration Protocol 0.03 UNITS/MIN Norepinephrine 4 mg in 250 mls @ 7.5 mls/hr 05/03/21 02:00 05/08/21 09:40 Levophed Drip 4 Mg/Ns 250 Ml IV 8 mcg/min TITR MINOR 30 mls/hr Titration Protocol 2 MCG/MIN Phenylephrine HCl 100 mg/ 100 mls @ 3 mls/hr 05/06/21 11:00 05/06/21 17:07 Sodium Chloride IV 0 mcg/min TITR MINOR 0 mls/hr Titration Protocol 50 MCG/MIN Ceftriaxone Sodium 2 gm in 100 mls @ 200 mls/hr 05/07/21 11:00 05/08/21 10:10 Rocephin/Ns 2 Gm/100 Ml IV 05/09/21 11:29 200 mls/hr Q24H [facility] Administration Protocol Insulin Glargine 5 units 05/07/21 22:00 05/07/21 21:27 Insulin Glargine 100 Units/Ml SUB-Q 5 units QHS [facility] Administration Insulin Human Lispro 0 unit 05/03/21 00:00 05/08/21 02:24 Insulin Lispro 100 Unit/Ml SUB-Q Not Given Q6HR [facility] Protocol Levetiracetam 750 mg 04/25/21 10:00 05/08/21 09:53 Levetiracetam 500 Mg/5 Ml Oral Liqd PO 750 mg BID [facility] Administration Methylprednisolone Sodium Succinate 60 mg 04/28/21 06:00 05/08/21 02:23 Methylprednisolone Sod Succinate 40 Mg/1 Ml Inj IV 60 mg Q6H [facility] Administration Multi-Ingred Cream/Lotion/Oil/Oint 1 applic 04/21/21 15:46 Mineral Oil/Petrolatum, White Ophth Oint 3.5 Gm OU Q4HR PRN Dry Eye(s) Ondansetron HCl 4 mg 05/03/21 18:23 05/03/21 18:40 Ondansetron 4 Mg/2 Ml Inj IV 4 mg Q6H PRN Administration Nausea And Vomiting Polyethylene Glycol 17 gm 05/02/21 15:00 Polyethylene Glycol 3350 17 Gm Powder PO QDAY PRN Constipation Quetiapine Fumarate 25 mg 04/30/21 11:00 05/08/21 09:53 Quetiapine 25 Mg Tab PO 25 mg BID MINOR Administration Senna/Docusate Sodium 1 tab 04/26/21 22:00 05/07/21 21:27 Sennosides/Docusate Sodium 8.6/50 Mg Tab FEEDTUBE 1 tab QHS MINOR Administration Simple Syrup 15 ml 04/22/21 10:51 Simple Syrup 15 Ml FEEDTUBE PRN PRN Hypoglycemia Simple Syrup 30 ml 04/22/21 10:51 Simple Syrup 15 Ml FEEDTUBE PRN PRN Hypoglycemia Sodium Bicarbonate 325 mg 04/22/21 10:51 Sodium Bicarbonate 325 Mg Tab FEEDTUBE PRN PRN For Clogged Feeding Tube Sodium Chloride 10 ml 04/21/21 22:00 05/08/21 09:55 Sodium Chloride 0.9% 10 Ml Flush Syringe IV 10 ml BID MINOR Administration Sodium Chloride 10 ml 04/21/21 21:11 04/27/21 02:54 Sodium Chloride 0.9% 10 Ml Flush Syringe IV 10 ml PRN PRN Administration LINE FLUSH
[2021-05-08] MEDS ORDERED: FUROSEMIDE 40 MG/4 ML INJ IV ONE (11:00)
[2021-05-08 11:19] LABS: Hematocrit 31.4 % (30.3-42.9); Hemoglobin 10.3 gm/dl (10.1-14.3); Mean Corpuscular HGB Conc 33 % (30-34); Mean Corpuscular Volume 93 fl (79-97); Platelet Count 128 K/mm3 (140-440); Red Blood Count 3.38 M/mm3 (3.65-5.03); Red Cell Distribution Width 16.2 % (13.2-15.2)
[2021-05-08 11:43] LABS: Calcium 8.8 mg/dL (8.4-10.2)
[2021-05-08] MEDS ORDERED: LORazepam 2 MG/ML VIAL IV PRN (12:51)
--- NOTE | 2021-05-08 15:46 | Progress Note ---
Assessment and Plan This is a 66-year-old female with HTN, HLD, prior CVA with resulting left-sided weakness present today with emergency department via EMS for AMS and new onset seizures with increased left-sided weakness. Upon arrival to the emergency room patient was intubated for airway protection and hypoxia. Patient was admitted to the hospital service with new onset seizures, acute hypoxic respiratory failure with pulmonary embolism on CTA, acute kidney injury, rhabdomyolysis. Assessment and plan: --New onset sz; metabolic encephalopathy new onset seizures - on keppra PERRL; no commands but remains sedated on prop and ativan CT head on admit- IMPRESSION: Encephalomalacia in the right temporal lobe, frontal lobe; no acute/subacute parenchymal lesions MRI Encephalomalacia in the right cerebral hemisphere - see report will need repeat CT per neuro when PEEP is dec; Dr Arrington has told RN's not to take to CT on level of vent support she is requiring daily SAT limited by hypoxia RAAS goal neg 4 seroquel BID; following QT case management following family updated daily on plan of care --History of CVA with left-sided weakness Supportive care, neuro consulted, patient currently intubated asa/statin --hypotension likely volume depletion/sepsis or combination of the 2 echo 04/22 see report -normal biV function s/p adenosine and amiodarone on 05/03 for some tachycardia Vasopressors for blood pressure support --Acute hypoxic resp failure likely due to PE and ILD present on CTA; Klebsiella pneumonia, refractory hypoxia requiring MV; permissive hypercapnia to Ph of 7.2 intubated in ER; remains ventilated Patient on 100% FiO2 Critical care following Serial ABGs CT noted - a/c lung disease evident with ILD, PE's noted US BLE neg for DVT trending lactate/ABG and chest xrays continue nebs continue solumedrol will likely need trach Antibiotic therapy --illeus , resolved, now tolerating tube feeding diet TF at goal nutrition following PPI bowel reg - colace/senna/miralax --LIZBETH likely due to ATN Bogdan; exchange 05/05 strict I/O trend and replace electrolytes as needed trend BUN/CR/CK Nephrology reconsulted D5W gtt F[facility] --Hypernatremia, resolved with IV fluid -- acute Pulmonary emboli s/p VTE on lovenox BID -now on hold for severe anemia requiring transfusion trending coags/Xa trend CBC no bleeding on exam LE dopplers neg for DVT; positive CTA for PE on admit -- lactic acidosis, GNR UTI, gram-negative cornell bacteremia covid neg afebrile but lactic acid high and pt now on NE and vaso; also ST on monitor abx: cefepime (vanco d/c d/t UC with GNR), Corral change 05/05 continue to trend temp and WBC curve --Severe anemia, status post 2 units of transfusion --Pneumonia with Klebsiella, treated with 7 days course of antibiotics --DVT prophylaxis, with SCD The high probability of a clinically significant, sudden or life threatening deterioration of the [respiratory] system(s) required my full and direct attention, intervention and personal management. The aggregate critical care time was [35] minutes. This time is in addition to time spent performing reported procedures but includes the following: [x] Data Review and interpretation [x] Patient assessment and monitoring of vital signs [x] Documentation [x] Medication orders and management Disposition Plan: ICU Total Time Spent with Patient (Minutes): 35 Daily clinical course: 04-30 NO ACUTE EVENTS OVERNIGHT; diuresis with 40 mg IV lasix 05-01 no acute events overnight; diuresis with 40 mg IV lasix 05-02: diuresis with lasix 40 mg IV during the day - pt still grossly pos per I/O; and pt weight, overnight pt persistently tachycardic given adenosine and amio gtt 05/04: Nephrology will try Lasix, [facility] adjust advanced to APRV to help with ventilation. Will obtain BMP at 2100. CCM okay with SPO2 greater than 88, pH of greater than 7.2. Hypernatremia to 160, started on D5 W, severe hypercapnia noted on ABG and patient ventilator settings was changed. Lactic acidosis noted with hyperglycemia. Hyperkalemia noted which was medically treated. 05/05: Lasix again today per nephro., increase in Plow to 30 post abg per ccm, increase in D5W gtt and FWF q200 and will restart TF. Vanco d/c r/t GNR in urine and corral changed. Remains on levo and vaso. 05/06: BP steadily decreasing. Levophed gtt titrated up, stop TF, infuse 2 units of PRBC ,and gave 1 L bolus of LR. Nephro and PCCM recs noted. 05/07: H&H stable after transfusing 2 minutes packed RBC yesterday. Creatinine slightly elevated today -nephrology following. We will repeat BMP tomorrow. Sodium level normalized. Patient remains on mechanical ventilation with Levophed. 05/08: Patient is stable, critical care recommended to continue to hold Lovenox/heparin for anemia. Patient remains on pressor support. Patient on maximal ventilation support still experiencing hypoxia. Had a discussion with the daughter and critical care attending family wants to continue full CODE STATUS. Renal function declining, nephrology following. Subjective Date of service: 05/08/21 Principal diagnosis: Acute kidney injury, rhabdomyolysis Interval history: Patient seen and examined. Medical records and medication list reviewed. No acute event overnight noted by the RN. Patient remains on pressor support and mechanical ventilation Discussed plan of care at bedside with patient's RN. Objective - Exam Narrative Exam: General appearance: Present: no acute distress, well-nourished, other (Sedated on vent) - EENT Eyes: Present: PERRL - Neck Neck: Present: supple - Respiratory Respiratory effort: normal Respiratory: bilateral: diminished - Cardiovascular Rhythm: regular - Extremities Extremities: no ischemia, pulses symmetrical Peripheral Pulses: within normal limits - Abdominal General gastrointestinal: soft, non-tender - Integumentary Integumentary: Present: warm, dry - Psychiatric Psychiatric: other (sedated) - Neurologic Neurologic: other (sedated) - Constitutional Vitals: Vital Signs - 12hr 05/08/21 05/08/21 05/08/21 04:00 04:15 04:30 Temperature 98.3 F Pulse Rate 120 H 123 H 120 H Pulse Rate [ Anterior Bilateral] Pulse Rate [ Bilateral] Pulse Rate [ 105 H From Monitor] Respiratory 26 H 27 H 27 H Rate Respiratory Rate [Anterior Bilateral] Respiratory Rate [Bilateral ] Blood Pressure 128/65 129/65 126/65 O2 Sat by Pulse 98 98 98 Oximetry 05/08/21 05/08/21 05/08/21 04:45 05:00 05:15 Temperature Pulse Rate 119 H 119 H 119 H Pulse Rate [ Anterior Bilateral] Pulse Rate [ Bilateral] Pulse Rate [ From Monitor] Respiratory 26 H 27 H 27 H Rate Respiratory Rate [Anterior Bilateral] Respiratory Rate [Bilateral ] Blood Pressure 118/66 125/61 119/68 O2 Sat by Pulse 98 98 98 Oximetry 0805/08/21 05/08/21 05:30 05:45 06:00 Temperature Pulse Rate 122 H 121 H 122 H Pulse Rate [ Anterior Bilateral] Pulse Rate [ Bilateral] Pulse Rate [ From Monitor] Respiratory 27 H 27 H 26 H Rate Respiratory Rate [Anterior Bilateral] Respiratory Rate [Bilateral ] Blood Pressure 115/68 100/67 108/72 O2 Sat by Pulse 98 98 98 Oximetry 05/08/21 05/08/21 05/08/21 06:15 06:30 06:45 Temperature Pulse Rate 118 H 120 H 120 H Pulse Rate [ Anterior Bilateral] Pulse Rate [ Bilateral] Pulse Rate [ From Monitor] Respiratory 27 H 27 H 27 H Rate Respiratory Rate [Anterior Bilateral] Respiratory Rate [Bilateral ] Blood Pressure 97/64 114/63 118/68 O2 Sat by Pulse 99 98 98 Oximetry 05/08/21 05/08/21 05/08/21 07:00 07:15 07:30 Temperature Pulse Rate 122 H 118 H 122 H Pulse Rate [ Anterior Bilateral] Pulse Rate [ Bilateral] Pulse Rate [ From Monitor] Respiratory 27 H 26 H 26 H Rate Respiratory Rate [Anterior Bilateral] Respiratory Rate [Bilateral ] Blood Pressure 118/68 127/65 125/66 O2 Sat by Pulse 98 98 98 Oximetry 05/08/21 05/08/21 05/08/21 07:45 07:57 08:00 Temperature 97.8 F Pulse Rate 119 H 114 H Pulse Rate [ 122 H Anterior Bilateral] Pulse Rate [ 123 H Bilateral] Pulse Rate [ From Monitor] Respiratory 26 H 28 H Rate Respiratory 28 H Rate [Anterior Bilateral] Respiratory 27 H Rate [Bilateral ] Blood Pressure 120/67 118/64 O2 Sat by Pulse 98 90 Oximetry 05/08/21 05/08/21 05/08/21 08:16 08:30 08:31 Temperature Pulse Rate 115 H 85 122 H Pulse Rate [ Anterior Bilateral] Pulse Rate [ Bilateral] Pulse Rate [ From Monitor] Respiratory 28 H 29 H Rate Respiratory Rate [Anterior Bilateral] Respiratory Rate [Bilateral ] Blood Pressure 118/64 76/39 118/68 O2 Sat by Pulse 68 L 73 L 98 Oximetry 05/08/21 05/08/21 05/08/21 08:45 09:00 09:15 Temperature Pulse Rate 133 H 129 H 130 H Pulse Rate [ Anterior Bilateral] Pulse Rate [ Bilateral] Pulse Rate [ From Monitor] Respiratory 26 H 26 H 26 H Rate Respiratory Rate [Anterior Bilateral] Respiratory Rate [Bilateral ] Blood Pressure 100/64 116/62 120/61 O2 Sat by Pulse 79 L 97 94 Oximetry 05/08/21 05/08/21 05/08/21 09:30 09:45 10:00 Temperature Pulse Rate 130 H 132 H 132 H Pulse Rate [ Anterior Bilateral] Pulse Rate [ Bilateral] Pulse Rate [ From Monitor] Respiratory 27 H 26 H 26 H Rate Respiratory Rate [Anterior Bilateral] Respiratory Rate [Bilateral ] Blood Pressure 108/56 112/61 111/64 O2 Sat by Pulse 92 96 97 Oximetry 05/08/21 05/08/21 11:34 12:00 Temperature 98.1 F Pulse Rate 132 H Pulse Rate [ Anterior Bilateral] Pulse Rate [ Bilateral] Pulse Rate [ From Monitor] Respiratory Rate Respiratory Rate [Anterior Bilateral] Respiratory Rate [Bilateral ] Blood Pressure 111/64 O2 Sat by Pulse 97 Oximetry - Labs CBC & Chem 7: 05/09/21 09:15 05/09/21 09:15 Labs: Abnormal lab results 05/07/21 05/07/21 05/07/21 Range/Units 17:31 21:22 23:54 RBC (3.65-5.03) M/mm3 RDW (13.2-15.2) % Plt Count (140-440) K/mm3 ABG pH (7.320-7.450) POC ABG pCO2 (32.0-48.0) mmHg POC ABG pO2 (83-108) mmHg ABG Hemoglobin (12.0-17.5) ABG Oxyhemoglobin (94-98) ABG Potassium (3.40-4.50) mmol/L ABG Chloride (98-107) mmol/L ABG Glucose (65-95) mg/dL Potassium (3.6-5.0) mmol/L Chloride (98-107) mmol/L Carbon Dioxide (22-30) mmol/L BUN (7-17) mg/dL Creatinine (0.6-1.2) mg/dL Glucose (65-100) mg/dL POC Glucose 197 H 172 H 164 H (70-105) mg/dL Arterial Blood Glucose (65-95) mg/dL Arterial Blood Ionized Calcium (4.6-5.3) mg/dL 05/08/21 05/08/21 05/08/21 Range/Units 02:11 03:03 05:31 RBC (3.65-5.03) M/mm3 RDW (13.2-15.2) % Plt Count (140-440) K/mm3 ABG pH 7.230 L (7.320-7.450) POC ABG pCO2 87.9 H (32.0-48.0) mmHg POC ABG pO2 58.3 L (83-108) mmHg ABG Hemoglobin 10.6 L (12.0-17.5) ABG Oxyhemoglobin 84.4 L (94-98) ABG Potassium 4.6 H (3.40-4.50) mmol/L ABG Chloride 97.0 L (98-107) mmol/L ABG Glucose 143 H (65-95) mg/dL Potassium (3.6-5.0) mmol/L Chloride (98-107) mmol/L Carbon Dioxide (22-30) mmol/L BUN (7-17) mg/dL Creatinine (0.6-1.2) mg/dL Glucose (65-100) mg/dL POC Glucose 132 H 148 H (70-105) mg/dL Arterial Blood Glucose 143 H (65-95) mg/dL Arterial Blood Ionized Calcium 4.3 L (4.6-5.3) mg/dL 05/08/21 05/08/21 05/08/21 Range/Units 10:54 10:54 11:31 RBC 3.38 L (3.65-5.03) M/mm3 RDW 16.2 H (13.2-15.2) % Plt Count 128 L (140-440) K/mm3 ABG pH (7.320-7.450) POC ABG pCO2 (32.0-48.0) mmHg POC ABG pO2 (83-108) mmHg ABG Hemoglobin (12.0-17.5) ABG Oxyhemoglobin (94-98) ABG Potassium (3.40-4.50) mmol/L ABG Chloride (98-107) mmol/L ABG Glucose (65-95) mg/dL Potassium 5.1 H (3.6-5.0) mmol/L Chloride 97.8 L (98-107) mmol/L Carbon Dioxide 37 H (22-30) mmol/L BUN 112 H (7-17) mg/dL Creatinine 2.2 H (0.6-1.2) mg/dL Glucose 163 H (65-100) mg/dL POC Glucose 170 H (70-105) mg/dL Arterial Blood Glucose (65-95) mg/dL Arterial Blood Ionized Calcium (4.6-5.3) mg/dL HEART Score - HEART Score Age: 45-65 Risk factors: 1-2 risk factors Troponin: Troponin T 0.055 ng/mL (0.00-0.029) H 04/21/21 16:32 - Critical Actions Critical Actions: 0-3 pts:0.9-1.7%risk of adverse cardiac event.Candidate for discharge
[2021-05-08] MEDS: SENNOSIDES/DOCUSATE SODIUM 8.6/50 MG TAB FEEDTUBE SCH (22:00)
--- NOTE | 2021-05-08 23:23 | Event Note ---
Date: 05/08/21 Donovan green called on Patient with chronic lung disease currently on admission and on a ventilator. Resuscitative measures going by ACLS protocol immediatley commenced. She received 2 rounds of epinephrine and 1 amp of sodium bicarbonate with spontaneous return of circulation. Patient placed on pressors- Levophed and subsequently dopamine. Will continue current management and monitor closely.
--- NOTE | 2021-05-09 00:24 | Event Note ---
Date: 05/09/21 Donovan green called again on Patient with chronic lung disease currently on admission and on a ventilator. Resucitative measures going by ACLS protocol commenced. She received 1 round of epinephrine and 1 amp of sodium bicarbonate, 1g of Calcium gluconate with spontaneous return of circulation. Patient currently on Levophed and dopamine. Patient commenced on epinephrine drip. Will continue current management and monitor closely.
[2021-05-09] MEDS: EPINEPHrine 1 MG/1 ML 8 MG in SODIUM CHLORIDE 0.9% 250ML 242 ML IV SCH (00:29)
[2021-05-09] MEDS: NORepinephrine/NS 4 MG-250 ML 4 MG/250 ML BAG IV SCH ×5 (00:50→07:29)
[2021-05-09] MEDS: methylPREDNISolone Sod Succinate 40 MG/1 ML INJ IV SCH ×4 (00:58→17:20)
[2021-05-09] MEDS: INSULIN LISPRO 100 UNIT/ML SUB-Q SCH ×4 (03:15→17:19)
[2021-05-09] MEDS: FREE WATER PO SCH ×5 (05:25→21:32)
[2021-05-09] MEDS ORDERED: DOPamine/D5W 800 MG/250 ML DRIP IV ONE (06:35)
[2021-05-09] MEDS ORDERED: DEXTROSE 50% IN WATER (25GM) 50 ML SYRINGE IV ONE ×2 (06:35→11:00)
[2021-05-09] MEDS ORDERED: SODIUM BICARB 8.4% 50 MEQ/50 ML SYRINGE IV ONE ×2 (06:35→08:54)
[2021-05-09] MEDS ORDERED: EPINEPHrine 1 MG/10 ML SYRINGE ONE ×2 (06:35→08:54)
[2021-05-09] MEDS ORDERED: DOPamine/D5W 800 MG/250 ML 800 MG/250 ML BAG IV ONE (07:20)
[2021-05-09] MEDS: DOPamine/D5W 800 MG/250 ML 800 MG/250 ML BAG IV SCH ×3 (07:28→23:03)
[2021-05-09] MEDS: BUDESONIDE 0.5 MG/2 ML NEBU IH SCH ×2 (08:37→20:41)
[2021-05-09] MEDS: ARFORMOTEROL 15 MCG/2 ML NEBU IH SCH ×2 (08:37→20:41)
[2021-05-09] MEDS ORDERED: CALCIUM CHLORIDE 1,000 MG/10 ML SYRINGE IV ONE (08:54)
--- NOTE | 2021-05-09 09:53 | XRay Report ---
Chest single view INDICATION: Dyspnea IMPRESSION: Severe interstitial prominence of both lungs have not significantly changed from 05/07/2021 . The endotracheal tube and esophagogastric tube and left arm PICC line are all unchanged in position . No pneumothorax. Signer Name: Teo Majano MD Signed: 05/09/2021 9:49 AM Workstation Name: [id number]
[2021-05-09 10:00] LABS: Mean Corpuscular HGB Conc 30 % (30-34); Mean Corpuscular Volume 101 fl (79-97); Platelet Count 134 K/mm3 (140-440); Red Blood Count 2.89 M/mm3 (3.65-5.03); Red Cell Distribution Width 17.8 % (13.2-15.2)
[2021-05-09 10:04] LABS: Calcium 9.5 mg/dL (8.4-10.2)
[2021-05-09 10:11] LABS: Hematocrit 29.1 % (30.3-42.9); Hemoglobin 8.7 gm/dl (10.1-14.3)
--- NOTE | 2021-05-09 10:24 | Progress Note ---
Assessment and Plan 66 y/o female, intubated for airway protection, found to have severe ILD and no has refractory hypoxemia. 05/09/21: Patient has now coded 3 times, most likely will pass today. Giving family some time but will readdress code status with them again this morning. Continue supportive measures, very very poor prognosis. 05/07/21: Duong off, levo down to 2 and vaso is stable. Oxygenation remains a huge problem. Long discussion with daughter yesterday about this. Not sure that she understands completely. Increased PEEP and TV to 20 and 375 respectively. Ok to restart tube feeds now that pressor requirement is down. Hold on lasix gi dane worsening renal function and follow up renal recs. Continue to hold lovenox. Did respond to blood transfusion which may have helped oxygenation some. Continue IV steroids. Continue IV abx for GNR in blood. Very very guarded to poor prognosis. Halving ativan dose today. 05/06/21: Stop sedation for now. Added a third vasopressor in Phenylephrine, goal map is 65. Repeated CXR and patient does not have PTX. Will give bolus now and transfuse two units of PRBC's. Stopped Lovenox therapy. Would hold on lasix today. Stopped tube feeds. Triglyceride level still not done. Will repe at blood cultures as well. Will call daughter to update her on patient condition. Continue IV steroids. Overall prognosis is worsening. Guarded to poor. 05/05/21: Now with GNR bacteremia, most likely source is urine. Needs corral however as she had urinary retention and we need strict I/O. Will change corral out today. Agree with repeat lasix that renal has already ordered. Patient is on Cefepime and agree with stopping vanc. Await speciation and susceptibilities. She has had minimal to no output from OG so will restart tube feeds and free water at 200q4. Ok with continuing D5 and bumping up rate. Will start to wean FiO2 again tomorrow. Will need repeat blood cultures as well. Or dered triglyceride level but not done. Will order again 05/04/21: Appreciate renal help and agree with trial of lasix. Made adjustments to aprv to help with ventilation. Repeat gas in 1 hour. Getting lasix, but suggest repeat chemistry tonight around 2100. Maintain sedation to rass of -4. Wean FiO2 for sats >88%. ok with pH's of >7.2. Overall prognosis remains guarded. Will reach out to daughter in the am. Guarded prognosis. Will check triglyceride levels in the am. 05/03/21: Found to have ileus on ABD x-ray. Hold feeds and continue to suction. Repeat imaging in am. Need to address hyperkalemia with IV therapy given Ileus. Will do insulin and Kayexalate therapy. Suggest repeat K later this evening. Dropped FiO2 to 90, continue to wean for sats greater 88%. No lasix today. Will give a liter bolus of LR. May need an additional bolus. Unable to transduce CVP from picc. Continue IV steroids. Repeat ABG in am. Suspect that renal insufficiency will be transient but will monitor closely. Guarded prognosis. Need to hold on CT given instability. 05/02/21: Continue current level of sedation. Maintain current TV settings and repeat ABG in am. Goal is to get FiO2 at 60 or less in the next 24 hours. Once FiO2 less than 50% can start weaning PEEP. Repeat IV lasix today. Will likely need more free water. Continue steroids. Guarded prognosis. 05/01/21: Continue Ativan and Diprovan drip. Maintain low tidal volume and high PEEP and as long as pH is greater than 7.2. continue diuresis with IV lasix. Guarded prognosis. Will call daughter back today. Continue High dose IV steroids for now. 04/30/21: Will add Ativan drip and attempt to wean Precedex to off. Once adequate sedation achieved and BP stable, will give an additional dose of IV lasix today. Increased Free Water to 250q4. Ok with current Triglyceride level but will need to repeat. Prognosis remains guarded. Will call daughter to update her. 04/29/21: Continue low tidal volumes and high PEEPs. Lasix 40mg IV x1 today. Continue high dose steroids. Will start pulmicort and brovana therapy. Prognosis remains very very guarded. Follow up Triglyceride episode tomorrow. 04/26/21: Dropped tidal volume to 300. Keep PEEP at 16. Repeat ABG at 1230. Now that BP is better will give lasix 40 IV x1. Please assess again tomorrow and see if she would benefit from this. Pulse dose steroids through tomorrow and then solumedrol 60q6 starting on Thursday. Spoke with daughter over the phone who confirmed that mother was a smoker, heavy for 30+ years. Will start on BID pulmicort and brovana therapy. Overall prognosis discussed with daughter regarding possible need for trach and vent dependence. She asked about lung tx which I explained is not an option at this time. She seemed to express understanding but was mainly in shock as she had no idea her mother had ILD and per daughter, mother never saw a lung physician. Guarded to poor prognosis. My partner rounding over the weekend, I am back on Thursday. 04/25/21: Picc line today. Increase PEEP to 16. Dropped TV back to 375. pH of 7.2 and greater is acceptable. Will also pulse dose for the next 72 hours and then transition to q6 dosing on Thursday. Will discuss current clinical state with daughter. Serial ABG's today to make sure pH stays where it needs to be and hopeful improvement in oxygenation. Guarded prognosis. 04/24/21: Will drop TV to 375 and Increase PEEP to 14. Will repeat ABG in one hour. If no improvements, may need to consider IV steroids for 48-72 hours. Exact etiology of chronic lung disease is not known. Would prefer not to give sedation vacation given high levels of oxygen required as agitation could make things worse. Right now, unable to determine current neuro state. Lungs are very very sick and even though this is a chronic issue, now with her drive diminished from the ventilator, most likely will be a difficult wean. Will discuss with family soon what the next steps could potentially be but would need to assess mental state first. Guarded prognosis. 1. Increase PEEP and repeat ABG 2. May need to consider IV steroids 3. Follow up neuro recs 4. Guarded prognosis. cCT 31 minutes. Subjective Date of service: 05/09/21 Principal diagnosis: Acute kidney injury, rhabdomyolysis Interval history: Spoke with family over the phone yesterday evening to tell them their mother was worse. Explained that CPR would not fix the underlying problems that lead to arrest. They wanted to come visit so we arranged for 2000 time frame. She then coded twice last night. This am maxed on pressors and sats are in the 50's. Daughter and son-in-law at bedside. Objective Vital Signs - 12hr 05/08/21 05/08/21 05/08/21 22:30 22:45 23:01 Temperature Pulse Rate 97 H 63 47 L Pulse Rate [ Anterior Bilateral] Pulse Rate [ Bilateral] Pulse Rate [ From Monitor] Respiratory 26 H 25 H 24 Rate Respiratory Rate [Anterior Bilateral] Respiratory Rate [Bilateral ] Blood Pressure 55/32 62/42 62/42 O2 Sat by Pulse 37 L 35 L 18 L Oximetry 05/08/21 05/08/21 05/08/21 23:15 23:31 23:45 Temperature Pulse Rate 140 H 141 H 106 H Pulse Rate [ Anterior Bilateral] Pulse Rate [ Bilateral] Pulse Rate [ From Monitor] Respiratory 25 H 30 H 26 H Rate Respiratory Rate [Anterior Bilateral] Respiratory Rate [Bilateral ] Blood Pressure 205/105 109/56 66/33 O2 Sat by Pulse 67 L 55 L Oximetry 05/09/21 05/09/21 05/09/21 00:00 00:01 00:15 Temperature 98.3 F Pulse Rate 141 H 148 H 145 H Pulse Rate [ Anterior Bilateral] Pulse Rate [ Bilateral] Pulse Rate [ 141 H From Monitor] Respiratory 27 H 28 H 29 H Rate Respiratory Rate [Anterior Bilateral] Respiratory Rate [Bilateral ] Blood Pressure 96/56 140/57 O2 Sat by Pulse 96 28 L Oximetry 05/09/21 05/09/21 05/09/21 00:30 00:32 00:45 Temperature Pulse Rate 140 H 145 H 138 H Pulse Rate [ Anterior Bilateral] Pulse Rate [ Bilateral] Pulse Rate [ From Monitor] Respiratory 30 H 26 H Rate Respiratory Rate [Anterior Bilateral] Respiratory Rate [Bilateral ] Blood Pressure 88/55 140/57 87/57 O2 Sat by Pulse 59 L 75 L 57 L Oximetry 05/09/21 05/09/21 05/09/21 01:00 01:15 01:30 Temperature Pulse Rate 137 H 137 H 138 H Pulse Rate [ Anterior Bilateral] Pulse Rate [ Bilateral] Pulse Rate [ From Monitor] Respiratory 26 H 27 H 27 H Rate Respiratory Rate [Anterior Bilateral] Respiratory Rate [Bilateral ] Blood Pressure 86/56 107/53 109/52 O2 Sat by Pulse 58 L 58 L 52 L Oximetry 05/09/21 05/09/21 05/09/21 01:45 02:00 02:15 Temperature Pulse Rate 140 H 141 H 142 H Pulse Rate [ Anterior Bilateral] Pulse Rate [ Bilateral] Pulse Rate [ From Monitor] Respiratory 28 H 28 H 28 H Rate Respiratory Rate [Anterior Bilateral] Respiratory Rate [Bilateral ] Blood Pressure 113/61 103/61 103/61 O2 Sat by Pulse 57 L 60 L 65 L Oximetry 05/09/21 05/09/21 05/09/21 02:30 02:45 03:00 Temperature Pulse Rate 142 H 142 H 140 H Pulse Rate [ Anterior Bilateral] Pulse Rate [ Bilateral] Pulse Rate [ From Monitor] Respiratory 28 H 27 H 26 H Rate Respiratory Rate [Anterior Bilateral] Respiratory Rate [Bilateral ] Blood Pressure 93/60 88/58 103/61 O2 Sat by Pulse 61 L 64 L 68 L Oximetry 05/09/21 05/09/21 05/09/21 03:15 03:31 03:45 Temperature Pulse Rate 140 H 141 H 140 H Pulse Rate [ Anterior Bilateral] Pulse Rate [ Bilateral] Pulse Rate [ From Monitor] Respiratory 26 H 27 H 27 H Rate Respiratory Rate [Anterior Bilateral] Respiratory Rate [Bilateral ] Blood Pressure 114/57 117/61 113/55 O2 Sat by Pulse 66 L 66 L 66 L Oximetry 05/09/21 05/09/21 05/09/21 04:00 04:15 04:30 Temperature 98.0 F Pulse Rate 136 H 140 H 136 H Pulse Rate [ Anterior Bilateral] Pulse Rate [ Bilateral] Pulse Rate [ 141 H From Monitor] Respiratory 27 H 26 H 26 H Rate Respiratory Rate [Anterior Bilateral] Respiratory Rate [Bilateral ] Blood Pressure 110/56 101/56 108/60 O2 Sat by Pulse 96 60 L 60 L Oximetry 05/09/21 05/09/21 05/09/21 04:35 04:45 05:00 Temperature Pulse Rate 135 H 137 H 137 H Pulse Rate [ Anterior Bilateral] Pulse Rate [ Bilateral] Pulse Rate [ From Monitor] Respiratory 26 H 26 H Rate Respiratory Rate [Anterior Bilateral] Respiratory Rate [Bilateral ] Blood Pressure 101/56 95/56 103/55 O2 Sat by Pulse 61 L 61 L 67 L Oximetry 05/09/21 05/09/21 05/09/21 05:15 05:30 05:45 Temperature Pulse Rate 136 H 136 H 136 H Pulse Rate [ Anterior Bilateral] Pulse Rate [ Bilateral] Pulse Rate [ From Monitor] Respiratory 23 27 H 26 H Rate Respiratory Rate [Anterior Bilateral] Respiratory Rate [Bilateral ] Blood Pressure 112/50 107/52 106/55 O2 Sat by Pulse 66 L 63 L 60 L Oximetry 05/09/21 05/09/2121 06:00 06:15 06:30 Temperature Pulse Rate 137 H 137 H 137 H Pulse Rate [ Anterior Bilateral] Pulse Rate [ Bilateral] Pulse Rate [ From Monitor] Respiratory 27 H 27 H 27 H Rate Respiratory Rate [Anterior Bilateral] Respiratory Rate [Bilateral ] Blood Pressure 108/53 114/54 111/54 O2 Sat by Pulse 63 L 63 L 63 L Oximetry 05/09/21 05/09/21 05/09/21 06:45 07:00 07:15 Temperature Pulse Rate 136 H 136 H 128 H Pulse Rate [ Anterior Bilateral] Pulse Rate [ Bilateral] Pulse Rate [ From Monitor] Respiratory 26 H 27 H 27 H Rate Respiratory Rate [Anterior Bilateral] Respiratory Rate [Bilateral ] Blood Pressure 108/54 107/55 113/47 O2 Sat by Pulse 63 L 63 L 56 L Oximetry 05/09/21 05/09/21 05/09/21 07:30 07:45 08:00 Temperature 100.3 F H Pulse Rate 132 H 133 H 134 H Pulse Rate [ Anterior Bilateral] Pulse Rate [ Bilateral] Pulse Rate [ From Monitor] Respiratory 27 H 27 H 27 H Rate Respiratory Rate [Anterior Bilateral] Respiratory Rate [Bilateral ] Blood Pressure 95/48 103/54 108/53 O2 Sat by Pulse 53 L 58 L 59 L Oximetry 05/09/21 05/09/21 08:35 08:37 Temperature Pulse Rate 134 H Pulse Rate [ 123 H Anterior Bilateral] Pulse Rate [ 128 H Bilateral] Pulse Rate [ From Monitor] Respiratory Rate Respiratory 26 H Rate [Anterior Bilateral] Respiratory 31 H Rate [Bilateral ] Blood Pressure 108/53 O2 Sat by Pulse 59 L Oximetry Constitutional: no acute distress, other (Sedated) Ascultation: Bilateral: rales, rhonchi CBC and BMP: 05/09/21 09:15 05/09/21 09:15 ABG, PT/INR, D-dimer: ABG ABG pH 7.230 (7.320-7.450) L 05/08/21 03:03 POC ABG pCO2 87.9 mmHg (32.0-48.0) H 05/08/21 03:03 ABG pCO2 46.0 mm Hg 04/22/21 17:30 POC ABG pO2 58.3 mmHg (83-108) L 05/08/21 03:03 ABG pO2 99.6 mm Hg (80.0-90.0) H 04/22/21 17:30 POC ABG HCO3 36.0 05/08/21 03:03 ABG O2 Saturation 85.9 (0-100) 05/08/21 03:03 PT/INR, D-dimer PT 13.2 Sec. (12.2-14.9) 04/22/21 00:32 INR 0.95 (0.87-1.13) 04/22/21 00:32 D-Dimer 1522.26 ng/mlDDU (0-234) H 04/21/21 16:30 Abnormal lab findings: Abnormal Labs 04/21/21 04/21/21 04/21/21 14:40 15:42 16:30 WBC RBC Hgb Hct MCV RDW Plt Count Lymph % (Auto) [place] % (Auto) Lymph # (Auto) Seg Neutrophils % Seg Neuts % (Manual) Lymphocytes % (Manual) Monocytes % (Manual) Nucleated RBC % Lymphocytes # (Manual) D-Dimer 1522.26 H Heparin Anti-Xa Level ABG pH POC ABG pCO2 POC ABG pO2 45.5 L 69.9 L ABG pO2 ABG Hemoglobin ABG Oxyhemoglobin 78.6 L 90.2 L ABG Sodium ABG Potassium ABG Chloride 111.0 H ABG Glucose 156 H 148 H Carboxyhemoglobin Sodium Potassium Chloride Carbon Dioxide BUN Creatinine Glucose POC Glucose Lactic Acid Calcium Phosphorus Magnesium AST ALT Total Creatine Kinase CK-MB (CK-2) Troponin T Total Protein Albumin Triglycerides Cholesterol LDL Cholesterol Direct HDL Cholesterol TSH Arterial Blood Glucose 156 H 148 H Arterial Blood Ionized Calcium 4.5 L Urine WBC (Auto) Urine Creatinine Urine Total Protein Crossmatch 04/21/21 04/21/21 04/22/21 16:32 16:32 00:32 WBC RBC 5.22 H Hgb 16.2 H 14.8 H Hct 48.6 H 44.4 H MCV RDW 15.8 H Plt Count Lymph % (Auto) [place] % (Auto) Lymph # (Auto) Seg Neutrophils % Seg Neuts % (Manual) 79.0 H Lymphocytes % (Manual) 13.0 L Monocytes % (Manual) 8.0 H Nucleated RBC % Lymphocytes # (Manual) 1.1 L D-Dimer Heparin Anti-Xa Level ABG pH POC ABG pCO2 POC ABG pO2 ABG pO2 ABG Hemoglobin ABG Oxyhemoglobin ABG Sodium ABG Potassium ABG Chloride ABG Glucose Carboxyhemoglobin Sodium Potassium Chloride Carbon Dioxide 21 L BUN 24 H Creatinine 1.3 H Glucose 130 H POC Glucose Lactic Acid Calcium Phosphorus Magnesium AST 129 H ALT 61 H Total Creatine Kinase 3055 H CK-MB (CK-2) 22.4 H Troponin T 0.055 H Total Protein Albumin 3.6 L Triglycerides 235 H Cholesterol 220 H LDL Cholesterol Direct 142 H HDL Cholesterol 36 L TSH Arterial Blood Glucose Arterial Blood Ionized Calcium Urine WBC (Auto) Urine Creatinine Urine Total Protein Crossmatch 04/22/21 04/22/21 04/22/21 03:27 05:29 05:29 WBC RBC Hgb 15.4 H Hct 45.8 H MCV RDW 16.0 H Plt Count Lymph % (Auto) 12.0 L [place] % (Auto) 8.0 H Lymph # (Auto) 1.1 L Seg Neutrophils % 76.3 H Seg Neuts % (Manual) Lymphocytes % (Manual) Monocytes % (Manual) Nucleated RBC % Lymphocytes # (Manual) D-Dimer Heparin Anti-Xa Level ABG pH POC ABG pCO2 POC ABG pO2 ABG pO2 ABG Hemoglobin ABG Oxyhemoglobin ABG Sodium ABG Potassium 4.7 H ABG Chloride 109.0 H ABG Glucose 155 H Carboxyhemoglobin 0.4 L Sodium Potassium 6.3 H* D Chloride Carbon Dioxide BUN 26 H Creatinine Glucose 134 H POC Glucose Lactic Acid Calcium Phosphorus Magnesium AST 123 H ALT Total Creatine Kinase CK-MB (CK-2) Troponin T Total Protein Albumin 3.6 L Triglycerides Cholesterol LDL Cholesterol Direct HDL Cholesterol TSH Arterial Blood Glucose 155 H Arterial Blood Ionized Calcium Urine WBC (Auto) Urine Creatinine Urine Total Protein Crossmatch 04/22/21 04/22/21 04/22/21 13:03 13:25 17:30 WBC RBC Hgb Hct MCV RDW Plt Count Lymph % (Auto) [place] % (Auto) Lymph # (Auto) Seg Neutrophils % Seg Neuts % (Manual) Lymphocytes % (Manual) Monocytes % (Manual) Nucleated RBC % Lymphocytes # (Manual) D-Dimer Heparin Anti-Xa Level ABG pH 7.343 L POC ABG pCO2 POC ABG pO2 ABG pO2 99.6 H ABG Hemoglobin ABG Oxyhemoglobin ABG Sodium ABG Potassium ABG Chloride ABG Glucose Carboxyhemoglobin Sodium Potassium Chloride Carbon Dioxide BUN Creatinine Glucose POC Glucose Lactic Acid Calcium Phosphorus Magnesium AST ALT Total Creatine Kinase 2322 H CK-MB (CK-2) Troponin T Total Protein Albumin Triglycerides Cholesterol LDL Cholesterol Direct HDL Cholesterol TSH Arterial Blood Glucose Arterial Blood Ionized Calcium Urine WBC (Auto) Urine Creatinine 138.9 H Urine Total Protein 86 H Crossmatch 04/22/21 04/23/21 04/23/21 20:00 04:42 09:53 WBC RBC Hgb Hct MCV RDW Plt Count Lymph % (Auto) [place] % (Auto) Lymph # (Auto) Seg Neutrophils % Seg Neuts % (Manual) Lymphocytes % (Manual) Monocytes % (Manual) Nucleated RBC % Lymphocytes # (Manual) D-Dimer Heparin Anti-Xa Level 2.00 H < 0.10 L ABG pH POC ABG pCO2 POC ABG pO2 ABG pO2 ABG Hemoglobin ABG Oxyhemoglobin 83.2 L ABG Sodium ABG Potassium ABG Chloride 113.0 H ABG Glucose 107 H Carboxyhemoglobin Sodium Potassium Chloride Carbon Dioxide BUN Creatinine Glucose POC Glucose Lactic Acid Calcium Phosphorus Magnesium AST ALT Total Creatine Kinase CK-MB (CK-2) Troponin T Total Protein Albumin Triglycerides Cholesterol LDL Cholesterol Direct HDL Cholesterol TSH Arterial Blood Glucose 107 H Arterial Blood Ionized Calcium Urine WBC (Auto) Urine Creatinine Urine Total Protein Crossmatch 04/23/21 04/23/21 04/23/21 14:21 14:21 15:11 WBC RBC Hgb Hct MCV RDW 16.3 H Plt Count Lymph % (Auto) [place] % (Auto) Lymph # (Auto) Seg Neutrophils % Seg Neuts % (Manual) Lymphocytes % (Manual) Monocytes % (Manual) Nucleated RBC % Lymphocytes # (Manual) D-Dimer Heparin Anti-Xa Level ABG pH POC ABG pCO2 POC ABG pO2 68.6 L ABG pO2 ABG Hemoglobin ABG Oxyhemoglobin 91.3 L ABG Sodium ABG Potassium ABG Chloride 113.0 H ABG Glucose 100 H Carboxyhemoglobin Sodium Potassium Chloride 113.1 H Carbon Dioxide 20 L BUN 18 H Creatinine Glucose POC Glucose Lactic Acid Calcium 8.2 L Phosphorus Magnesium AST 59 H ALT Total Creatine Kinase 681 H CK-MB (CK-2) Troponin T Total Protein 5.5 L Albumin 2.3 L Triglycerides Cholesterol LDL Cholesterol Direct HDL Cholesterol TSH Arterial Blood Glucose 100 H Arterial Blood Ionized Calcium Urine WBC (Auto) Urine Creatinine Urine Total Protein Crossmatch 04/23/21 04/24/21 04/24/21 18:30 04:00 05:37 WBC RBC Hgb Hct MCV RDW Plt Count Lymph % (Auto) [place] % (Auto) Lymph # (Auto) Seg Neutrophils % Seg Neuts % (Manual) Lymphocytes % (Manual) Monocytes % (Manual) Nucleated RBC % Lymphocytes # (Manual) D-Dimer Heparin Anti-Xa Level 1.84 H ABG pH POC ABG pCO2 POC ABG pO2 51.9 L ABG pO2 ABG Hemoglobin ABG Oxyhemoglobin 84.9 L ABG Sodium ABG Potassium ABG Chloride 112.0 H ABG Glucose 138 H Carboxyhemoglobin Sodium Potassium Chloride Carbon Dioxide BUN Creatinine Glucose POC Glucose 108 H Lactic Acid Calcium Phosphorus Magnesium AST ALT Total Creatine Kinase CK-MB (CK-2) Troponin T Total Protein Albumin Triglycerides Cholesterol LDL Cholesterol Direct HDL Cholesterol TSH Arterial Blood Glucose 138 H Arterial Blood Ionized Calcium Urine WBC (Auto) Urine Creatinine Urine Total Protein Crossmatch 04/24/21 04/24/21 04/24/21 10:00 10:00 10:14 WBC RBC Hgb Hct MCV RDW 16.0 H Plt Count Lymph % (Auto) [place] % (Auto) Lymph # (Auto) Seg Neutrophils % Seg Neuts % (Manual) Lymphocytes % (Manual) Monocytes % (Manual) Nucleated RBC % Lymphocytes # (Manual) D-Dimer Heparin Anti-Xa Level 0.84 H ABG pH POC ABG pCO2 POC ABG pO2 ABG pO2 ABG Hemoglobin ABG Oxyhemoglobin ABG Sodium ABG Potassium ABG Chloride ABG Glucose Carboxyhemoglobin Sodium Potassium Chloride 109.9 H Carbon Dioxide BUN Creatinine Glucose 118 H POC Glucose Lactic Acid Calcium Phosphorus 2.00 L Magnesium 2.40 H AST 59 H ALT Total Creatine Kinase 396 H CK-MB (CK-2) Troponin T Total Protein 5.5 L Albumin 2.4 L Triglycerides Cholesterol LDL Cholesterol Direct HDL Cholesterol TSH Arterial Blood Glucose Arterial Blood Ionized Calcium Urine WBC (Auto) Urine Creatinine Urine Total Protein Crossmatch 04/24/21 04/24/21 04/24/21 11:14 12:00 15:23 WBC RBC Hgb Hct MCV RDW Plt Count Lymph % (Auto) [place] % (Auto) Lymph # (Auto) Seg Neutrophils % Seg Neuts % (Manual) Lymphocytes % (Manual) Monocytes % (Manual) Nucleated RBC % Lymphocytes # (Manual) D-Dimer Heparin Anti-Xa Level ABG pH 7.287 L POC ABG pCO2 54.3 H POC ABG pO2 58.2 L 67.5 L ABG pO2 ABG Hemoglobin ABG Oxyhemoglobin 88.3 L 89.9 L ABG Sodium ABG Potassium ABG Chloride 111.0 H 110.0 H ABG Glucose 117 H 126 H Carboxyhemoglobin 0.3 L Sodium Potassium Chloride Carbon Dioxide BUN Creatinine Glucose POC Glucose 112 H Lactic Acid Calcium Phosphorus Magnesium AST ALT Total Creatine Kinase CK-MB (CK-2) Troponin T Total Protein Albumin Triglycerides Cholesterol LDL Cholesterol Direct HDL Cholesterol TSH Arterial Blood Glucose 117 H 126 H Arterial Blood Ionized Calcium Urine WBC (Auto) Urine Creatinine Urine Total Protein Crossmatch 04/24/21 04/24/21 04/24/21 17:58 18:00 22:56 WBC RBC Hgb Hct MCV RDW Plt Count Lymph % (Auto) [place] % (Auto) Lymph # (Auto) Seg Neutrophils % Seg Neuts % (Manual) Lymphocytes % (Manual) Monocytes % (Manual) Nucleated RBC % Lymphocytes # (Manual) D-Dimer Heparin Anti-Xa Level ABG pH POC ABG pCO2 POC ABG pO2 53.3 L ABG pO2 ABG Hemoglobin ABG Oxyhemoglobin 86.2 L ABG Sodium ABG Potassium ABG Chloride 111.0 H ABG Glucose 115 H Carboxyhemoglobin 0.4 L Sodium Potassium Chloride Carbon Dioxide BUN Creatinine Glucose POC Glucose 106 H 131 H Lactic Acid Calcium Phosphorus Magnesium AST ALT Total Creatine Kinase CK-MB (CK-2) Troponin T Total Protein Albumin Triglycerides Cholesterol LDL Cholesterol Direct HDL Cholesterol TSH Arterial Blood Glucose 115 H Arterial Blood Ionized Calcium Urine WBC (Auto) Urine Creatinine Urine Total Protein Crossmatch 04/25/21 04/25/21 04/25/21 04:00 07:42 10:50 WBC RBC Hgb Hct MCV RDW Plt Count Lymph % (Auto) [place] % (Auto) Lymph # (Auto) Seg Neutrophils % Seg Neuts % (Manual) Lymphocytes % (Manual) Monocytes % (Manual) Nucleated RBC % Lymphocytes # (Manual) D-Dimer Heparin Anti-Xa Level ABG pH POC ABG pCO2 POC ABG pO2 48.5 L 56.5 L ABG pO2 ABG Hemoglobin 10.6 L 10.4 L ABG Oxyhemoglobin 79.4 L 86.8 L ABG Sodium ABG Potassium ABG Chloride 111.0 H 112.0 H ABG Glucose 115 H 124 H Carboxyhemoglobin 0.2 L Sodium 146 H Potassium Chloride 111.3 H Carbon Dioxide BUN Creatinine Glucose 128 H POC Glucose Lactic Acid Calcium Phosphorus Magnesium AST ALT Total Creatine Kinase CK-MB (CK-2) Troponin T Total Protein Albumin Triglycerides Cholesterol LDL Cholesterol Direct HDL Cholesterol TSH Arterial Blood Glucose 115 H 124 H Arterial Blood Ionized Calcium Urine WBC (Auto) Urine Creatinine Urine Total Protein Crossmatch 04/25/21 04/25/21 04/25/21 11:12 13:55 16:05 WBC RBC Hgb Hct MCV RDW Plt Count Lymph % (Auto) [place] % (Auto) Lymph # (Auto) Seg Neutrophils % Seg Neuts % (Manual) Lymphocytes % (Manual) Monocytes % (Manual) Nucleated RBC % Lymphocytes # (Manual) D-Dimer Heparin Anti-Xa Level ABG pH POC ABG pCO2 POC ABG pO2 46.7 L 53.7 L ABG pO2 ABG Hemoglobin 10.7 L 11.1 L ABG Oxyhemoglobin 81.3 L 85.6 L ABG Sodium ABG Potassium ABG Chloride 111.0 H 111.0 H ABG Glucose 158 H 185 H Carboxyhemoglobin 0.4 L Sodium Potassium Chloride Carbon Dioxide BUN Creatinine Glucose POC Glucose 136 H Lactic Acid Calcium Phosphorus Magnesium AST ALT Total Creatine Kinase CK-MB (CK-2) Troponin T Total Protein Albumin Triglycerides Cholesterol LDL Cholesterol Direct HDL Cholesterol TSH Arterial Blood Glucose 158 H 185 H Arterial Blood Ionized Calcium Urine WBC (Auto) Urine Creatinine Urine Total Protein Crossmatch 04/25/21 04/25/21 04/26/21 17:39 23:18 05:06 WBC RBC Hgb Hct MCV RDW Plt Count Lymph % (Auto) [place] % (Auto) Lymph # (Auto) Seg Neutrophils % Seg Neuts % (Manual) Lymphocytes % (Manual) Monocytes % (Manual) Nucleated RBC % Lymphocytes # (Manual) D-Dimer Heparin Anti-Xa Level ABG pH POC ABG pCO2 POC ABG pO2 ABG pO2 ABG Hemoglobin ABG Oxyhemoglobin ABG Sodium ABG Potassium ABG Chloride ABG Glucose Carboxyhemoglobin Sodium Potassium Chloride Carbon Dioxide BUN Creatinine Glucose POC Glucose 155 H 158 H 134 H Lactic Acid Calcium Phosphorus Magnesium AST ALT Total Creatine Kinase CK-MB (CK-2) Troponin T Total Protein Albumin Triglycerides Cholesterol LDL Cholesterol Direct HDL Cholesterol TSH Arterial Blood Glucose Arterial Blood Ionized Calcium Urine WBC (Auto) Urine Creatinine Urine Total Protein Crossmatch 04/26/21 04/26/21 04/26/21 05:22 12:20 13:16 WBC RBC Hgb Hct MCV RDW Plt Count Lymph % (Auto) [place] % (Auto) Lymph # (Auto) Seg Neutrophils % Seg Neuts % (Manual) Lymphocytes % (Manual) Monocytes % (Manual) Nucleated RBC % Lymphocytes # (Manual) D-Dimer Heparin Anti-Xa Level ABG pH POC ABG pCO2 POC ABG pO2 52.2 L 53.9 L ABG pO2 ABG Hemoglobin 10.9 L 11.5 L ABG Oxyhemoglobin 86.5 L 86.4 L ABG Sodium 145.8 H ABG Potassium 4.6 H ABG Chloride 114.0 H 112.0 H ABG Glucose 144 H 162 H Carboxyhemoglobin 0.4 L 0.4 L Sodium Potassium Chloride Carbon Dioxide BUN Creatinine Glucose POC Glucose 160 H Lactic Acid Calcium Phosphorus Magnesium AST ALT Total Creatine Kinase CK-MB (CK-2) Troponin T Total Protein Albumin Triglycerides Cholesterol LDL Cholesterol Direct HDL Cholesterol TSH Arterial Blood Glucose 144 H 162 H Arterial Blood Ionized Calcium Urine WBC (Auto) Urine Creatinine Urine Total Protein Crossmatch 04/26/21 04/26/21 04/26/21 14:09 18:42 23:30 WBC RBC Hgb Hct MCV RDW Plt Count Lymph % (Auto) [place] % (Auto) Lymph # (Auto) Seg Neutrophils % Seg Neuts % (Manual) Lymphocytes % (Manual) Monocytes % (Manual) Nucleated RBC % Lymphocytes # (Manual) D-Dimer Heparin Anti-Xa Level ABG pH POC ABG pCO2 POC ABG pO2 55.3 L ABG pO2 ABG Hemoglobin 11.6 L ABG Oxyhemoglobin 87.2 L ABG Sodium 146.6 H ABG Potassium ABG Chloride 111.0 H ABG Glucose 165 H Carboxyhemoglobin Sodium Potassium Chloride Carbon Dioxide BUN Creatinine Glucose POC Glucose 161 H 163 H Lactic Acid Calcium Phosphorus Magnesium AST ALT Total Creatine Kinase CK-MB (CK-2) Troponin T Total Protein Albumin Triglycerides Cholesterol LDL Cholesterol Direct HDL Cholesterol TSH Arterial Blood Glucose 165 H Arterial Blood Ionized Calcium Urine WBC (Auto) Urine Creatinine Urine Total Protein Crossmatch 04/27/21 04/27/21 04/27/21 03:51 05:14 06:25 WBC RBC 3.64 L Hgb Hct MCV RDW 16.2 H Plt Count Lymph % (Auto) [place] % (Auto) Lymph # (Auto) Seg Neutrophils % Seg Neuts % (Manual) Lymphocytes % (Manual) Monocytes % (Manual) Nucleated RBC % Lymphocytes # (Manual) D-Dimer Heparin Anti-Xa Level ABG pH POC ABG pCO2 52.9 H POC ABG pO2 60.8 L ABG pO2 ABG Hemoglobin 11.9 L ABG Oxyhemoglobin 87.9 L ABG Sodium 147.8 H ABG Potassium ABG Chloride 111.0 H ABG Glucose 183 H Carboxyhemoglobin Sodium Potassium Chloride Carbon Dioxide BUN Creatinine Glucose POC Glucose 165 H Lactic Acid Calcium Phosphorus Magnesium AST ALT Total Creatine Kinase CK-MB (CK-2) Troponin T Total Protein Albumin Triglycerides Cholesterol LDL Cholesterol Direct HDL Cholesterol TSH Arterial Blood Glucose 183 H Arterial Blood Ionized Calcium Urine WBC (Auto) Urine Creatinine Urine Total Protein Crossmatch 04/27/21 04/27/21 04/27/21 06:25 11:45 17:41 WBC RBC Hgb Hct MCV RDW Plt Count Lymph % (Auto) [place] % (Auto) Lymph # (Auto) Seg Neutrophils % Seg Neuts % (Manual) Lymphocytes % (Manual) Monocytes % (Manual) Nucleated RBC % Lymphocytes # (Manual) D-Dimer Heparin Anti-Xa Level ABG pH POC ABG pCO2 POC ABG pO2 ABG pO2 ABG Hemoglobin ABG Oxyhemoglobin ABG Sodium ABG Potassium ABG Chloride ABG Glucose Carboxyhemoglobin Sodium 148 H Potassium 5.1 H D Chloride 109.0 H Carbon Dioxide BUN 35 H Creatinine Glucose 170 H POC Glucose 184 H 172 H Lactic Acid Calcium Phosphorus Magnesium AST 48 H ALT Total Creatine Kinase CK-MB (CK-2) Troponin T Total Protein Albumin 2.4 L Triglycerides Cholesterol LDL Cholesterol Direct HDL Cholesterol TSH Arterial Blood Glucose Arterial Blood Ionized Calcium Urine WBC (Auto) Urine Creatinine Urine Total Protein Crossmatch 04/27/21 04/28/21 04/28/21 23:16 03:23 04:00 WBC RBC Hgb Hct MCV RDW Plt Count Lymph % (Auto) [place] % (Auto) Lymph # (Auto) Seg Neutrophils % Seg Neuts % (Manual) Lymphocytes % (Manual) Monocytes % (Manual) Nucleated RBC % Lymphocytes # (Manual) D-Dimer Heparin Anti-Xa Level ABG pH POC ABG pCO2 55.9 H POC ABG pO2 76.2 L ABG pO2 ABG Hemoglobin 11.5 L ABG Oxyhemoglobin 92.9 L ABG Sodium 153.3 H ABG Potassium 3.2 L ABG Chloride 115.0 H ABG Glucose 154 H Carboxyhemoglobin Sodium 154 H Potassium 3.5 L D Chloride 114.4 H Carbon Dioxide 31 H BUN 32 H Creatinine Glucose 148 H POC Glucose 142 H Lactic Acid Calcium Phosphorus Magnesium AST ALT Total Creatine Kinase CK-MB (CK-2) Troponin T Total Protein 6.0 L Albumin 2.4 L Triglycerides Cholesterol LDL Cholesterol Direct HDL Cholesterol TSH Arterial Blood Glucose 154 H Arterial Blood Ionized Calcium Urine WBC (Auto) Urine Creatinine Urine Total Protein Crossmatch 04/28/21 04/28/21 04/28/21 04:45 06:05 11:57 WBC RBC Hgb Hct MCV RDW 16.1 H Plt Count Lymph % (Auto) [place] % (Auto) Lymph # (Auto) Seg Neutrophils % Seg Neuts % (Manual) Lymphocytes % (Manual) Monocytes % (Manual) Nucleated RBC % Lymphocytes # (Manual) D-Dimer Heparin Anti-Xa Level ABG pH POC ABG pCO2 POC ABG pO2 ABG pO2 ABG Hemoglobin ABG Oxyhemoglobin ABG Sodium ABG Potassium ABG Chloride ABG Glucose Carboxyhemoglobin Sodium Potassium Chloride Carbon Dioxide BUN Creatinine Glucose POC Glucose 153 H 109 H Lactic Acid Calcium Phosphorus Magnesium AST ALT Total Creatine Kinase CK-MB (CK-2) Troponin T Total Protein Albumin Triglycerides Cholesterol LDL Cholesterol Direct HDL Cholesterol TSH Arterial Blood Glucose Arterial Blood Ionized Calcium Urine WBC (Auto) Urine Creatinine Urine Total Protein Crossmatch 04/28/21 04/28/21 04/29/21 17:39 23:58 03:51 WBC RBC Hgb Hct MCV RDW Plt Count Lymph % (Auto) [place] % (Auto) Lymph # (Auto) Seg Neutrophils % Seg Neuts % (Manual) Lymphocytes % (Manual) Monocytes % (Manual) Nucleated RBC % Lymphocytes # (Manual) D-Dimer Heparin Anti-Xa Level ABG pH POC ABG pCO2 54.7 H POC ABG pO2 68.6 L ABG pO2 ABG Hemoglobin 11.9 L ABG Oxyhemoglobin 91.7 L ABG Sodium 148.2 H ABG Potassium ABG Chloride 112.0 H ABG Glucose 136 H Carboxyhemoglobin Sodium Potassium Chloride Carbon Dioxide BUN Creatinine Glucose POC Glucose 145 H 164 H Lactic Acid Calcium Phosphorus Magnesium AST ALT Total Creatine Kinase CK-MB (CK-2) Troponin T Total Protein Albumin Triglycerides Cholesterol LDL Cholesterol Direct HDL Cholesterol TSH Arterial Blood Glucose 136 H Arterial Blood Ionized Calcium Urine WBC (Auto) Urine Creatinine Urine Total Protein Crossmatch 04/29/21 04/29/21 04/29/21 05:35 05:55 11:29 WBC RBC Hgb Hct MCV RDW Plt Count Lymph % (Auto) [place] % (Auto) Lymph # (Auto) Seg Neutrophils % Seg Neuts % (Manual) Lymphocytes % (Manual) Monocytes % (Manual) Nucleated RBC % Lymphocytes # (Manual) D-Dimer Heparin Anti-Xa Level ABG pH POC ABG pCO2 POC ABG pO2 ABG pO2 ABG Hemoglobin ABG Oxyhemoglobin ABG Sodium ABG Potassium ABG Chloride ABG Glucose Carboxyhemoglobin Sodium 149 H Potassium Chloride 110.9 H Carbon Dioxide BUN 34 H Creatinine Glucose 136 H POC Glucose 128 H 206 H Lactic Acid Calcium Phosphorus Magnesium AST ALT Total Creatine Kinase CK-MB (CK-2) Troponin T Total Protein Albumin Triglycerides Cholesterol LDL Cholesterol Direct HDL Cholesterol TSH Arterial Blood Glucose Arterial Blood Ionized Calcium Urine WBC (Auto) Urine Creatinine Urine Total Protein Crossmatch 04/29/21 04/29/21 04/30/21 18:04 23:42 00:55 WBC RBC Hgb Hct MCV RDW Plt Count Lymph % (Auto) [place] % (Auto) Lymph # (Auto) Seg Neutrophils % Seg Neuts % (Manual) Lymphocytes % (Manual) Monocytes % (Manual) Nucleated RBC % Lymphocytes # (Manual) D-Dimer Heparin Anti-Xa Level ABG pH POC ABG pCO2 POC ABG pO2 ABG pO2 ABG Hemoglobin ABG Oxyhemoglobin ABG Sodium ABG Potassium ABG Chloride ABG Glucose Carboxyhemoglobin Sodium Potassium 5.1 H D Chloride Carbon Dioxide BUN Creatinine Glucose POC Glucose 146 H 146 H Lactic Acid Calcium Phosphorus Magnesium AST ALT Total Creatine Kinase CK-MB (CK-2) Troponin T Total Protein Albumin Triglycerides Cholesterol LDL Cholesterol Direct HDL Cholesterol TSH Arterial Blood Glucose Arterial Blood Ionized Calcium Urine WBC (Auto) Urine Creatinine Urine Total Protein Crossmatch 04/30/21 04/30/21 04/30/21 05:00 05:34 07:40 WBC RBC Hgb Hct MCV RDW Plt Count Lymph % (Auto) [place] % (Auto) Lymph # (Auto) Seg Neutrophils % Seg Neuts % (Manual) Lymphocytes % (Manual) Monocytes % (Manual) Nucleated RBC % Lymphocytes # (Manual) D-Dimer Heparin Anti-Xa Level ABG pH POC ABG pCO2 55.6 H POC ABG pO2 62.4 L ABG pO2 ABG Hemoglobin ABG Oxyhemoglobin 90.1 L ABG Sodium 146.8 H ABG Potassium ABG Chloride 109.0 H ABG Glucose 124 H Carboxyhemoglobin Sodium 149 H Potassium Chloride 109.5 H Carbon Dioxide 35 H BUN 33 H Creatinine Glucose 126 H POC Glucose 122 H Lactic Acid Calcium Phosphorus Magnesium 2.60 H AST ALT Total Creatine Kinase CK-MB (CK-2) Troponin T Total Protein 5.8 L Albumin 2.2 L Triglycerides 332 H Cholesterol LDL Cholesterol Direct HDL Cholesterol TSH Arterial Blood Glucose 124 H Arterial Blood Ionized Calcium Urine WBC (Auto) Urine Creatinine Urine Total Protein Crossmatch 04/30/21 04/30/21 04/30/21 07:40 11:12 17:00 WBC RBC Hgb Hct MCV RDW 16.3 H Plt Count Lymph % (Auto) [place] % (Auto) Lymph # (Auto) Seg Neutrophils % 88.4 H Seg Neuts % (Manual) 82.0 H Lymphocytes % (Manual) 5.0 L Monocytes % (Manual) Nucleated RBC % Lymphocytes # (Manual) 0.4 L D-Dimer Heparin Anti-Xa Level ABG pH POC ABG pCO2 POC ABG pO2 ABG pO2 ABG Hemoglobin ABG Oxyhemoglobin ABG Sodium ABG Potassium ABG Chloride ABG Glucose Carboxyhemoglobin Sodium Potassium Chloride Carbon Dioxide BUN Creatinine Glucose POC Glucose 127 H Lactic Acid Calcium Phosphorus Magnesium AST ALT Total Creatine Kinase CK-MB (CK-2) Troponin T Total Protein Albumin Triglycerides 304 H Cholesterol LDL Cholesterol Direct HDL Cholesterol TSH Arterial Blood Glucose Arterial Blood Ionized Calcium Urine WBC (Auto) Urine Creatinine Urine Total Protein Crossmatch 04/30/21 04/30/21 05/01/21 18:17 23:25 03:33 WBC RBC Hgb Hct MCV RDW Plt Count Lymph % (Auto) [place] % (Auto) Lymph # (Auto) Seg Neutrophils % Seg Neuts % (Manual) Lymphocytes % (Manual) Monocytes % (Manual) Nucleated RBC % Lymphocytes # (Manual) D-Dimer Heparin Anti-Xa Level ABG pH 7.275 L POC ABG pCO2 85.0 H POC ABG pO2 ABG pO2 ABG Hemoglobin ABG Oxyhemoglobin ABG Sodium ABG Potassium 5.0 H ABG Chloride ABG Glucose 150 H Carboxyhemoglobin Sodium Potassium Chloride Carbon Dioxide BUN Creatinine Glucose POC Glucose 151 H 143 H Lactic Acid Calcium Phosphorus Magnesium AST ALT Total Creatine Kinase CK-MB (CK-2) Troponin T Total Protein Albumin Triglycerides Cholesterol LDL Cholesterol Direct HDL Cholesterol TSH Arterial Blood Glucose 150 H Arterial Blood Ionized Calcium Urine WBC (Auto) Urine Creatinine Urine Total Protein Crossmatch 05/01/21 05/01/21 05/01/21 04:55 05:08 05:08 WBC RBC Hgb Hct MCV RDW 16.7 H Plt Count Lymph % (Auto) [place] % (Auto) Lymph # (Auto) Seg Neutrophils % Seg Neuts % (Manual) Lymphocytes % (Manual) Monocytes % (Manual) Nucleated RBC % Lymphocytes # (Manual) D-Dimer Heparin Anti-Xa Level ABG pH POC ABG pCO2 POC ABG pO2 ABG pO2 ABG Hemoglobin ABG Oxyhemoglobin ABG Sodium ABG Potassium ABG Chloride ABG Glucose Carboxyhemoglobin Sodium Potassium 5.3 H D Chloride Carbon Dioxide 36 H BUN 39 H Creatinine Glucose 150 H POC Glucose 138 H Lactic Acid Calcium Phosphorus Magnesium AST ALT Total Creatine Kinase CK-MB (CK-2) Troponin T Total Protein Albumin Triglycerides Cholesterol LDL Cholesterol Direct HDL Cholesterol TSH Arterial Blood Glucose Arterial Blood Ionized Calcium Urine WBC (Auto) Urine Creatinine Urine Total Protein Crossmatch 05/01/21 05/01/21 05/01/21 11:46 14:30 17:08 WBC RBC Hgb Hct MCV RDW Plt Count Lymph % (Auto) [place] % (Auto) Lymph # (Auto) Seg Neutrophils % Seg Neuts % (Manual) Lymphocytes % (Manual) Monocytes % (Manual) Nucleated RBC % Lymphocytes # (Manual) D-Dimer Heparin Anti-Xa Level ABG pH POC ABG pCO2 POC ABG pO2 ABG pO2 ABG Hemoglobin ABG Oxyhemoglobin ABG Sodium ABG Potassium ABG Chloride ABG Glucose Carboxyhemoglobin Sodium Potassium Chloride Carbon Dioxide BUN Creatinine Glucose POC Glucose 159 H 206 H Lactic Acid Calcium Phosphorus Magnesium 2.60 H AST ALT Total Creatine Kinase CK-MB (CK-2) Troponin T Total Protein Albumin Triglycerides Cholesterol LDL Cholesterol Direct HDL Cholesterol TSH Arterial Blood Glucose Arterial Blood Ionized Calcium Urine WBC (Auto) Urine Creatinine Urine Total Protein Crossmatch 05/01/21 05/02/21 05/02/21 23:21 04:00 05:32 WBC RBC Hgb Hct MCV RDW Plt Count Lymph % (Auto) [place] % (Auto) Lymph # (Auto) Seg Neutrophils % Seg Neuts % (Manual) Lymphocytes % (Manual) Monocytes % (Manual) Nucleated RBC % Lymphocytes # (Manual) D-Dimer Heparin Anti-Xa Level ABG pH 7.213 L POC ABG pCO2 123.0 H POC ABG pO2 69.9 L ABG pO2 ABG Hemoglobin ABG Oxyhemoglobin 90.0 L ABG Sodium 148.1 H ABG Potassium 5.2 H ABG Chloride ABG Glucose 205 H Carboxyhemoglobin 1.9 H Sodium Potassium Chloride Carbon Dioxide BUN Creatinine Glucose POC Glucose 176 H 184 H Lactic Acid Calcium Phosphorus Magnesium AST ALT Total Creatine Kinase CK-MB (CK-2) Troponin T Total Protein Albumin Triglycerides Cholesterol LDL Cholesterol Direct HDL Cholesterol TSH Arterial Blood Glucose 205 H Arterial Blood Ionized Calcium Urine WBC (Auto) Urine Creatinine Urine Total Protein Crossmatch 05/02/21 05/02/21 05/02/21 06:57 06:57 08:00 WBC RBC Hgb Hct MCV RDW 17.5 H Plt Count Lymph % (Auto) [place] % (Auto) Lymph # (Auto) Seg Neutrophils % Seg Neuts % (Manual) 84.0 H Lymphocytes % (Manual) 6.0 L Monocytes % (Manual) Nucleated RBC % 1.0 H Lymphocytes # (Manual) 0.6 L D-Dimer Heparin Anti-Xa Level ABG pH 7.267 L POC ABG pCO2 102.9 H POC ABG pO2 81.4 L ABG pO2 ABG Hemoglobin ABG Oxyhemoglobin 93.6 L ABG Sodium 148.0 H ABG Potassium 5.4 H ABG Chloride ABG Glucose 249 H Carboxyhemoglobin Sodium 148 H Potassium 5.6 H Chloride Carbon Dioxide 40 H BUN 36 H Creatinine Glucose 227 H POC Glucose Lactic Acid Calcium Phosphorus 2.20 L Magnesium 2.80 H AST 41 H ALT Total Creatine Kinase CK-MB (CK-2) Troponin T Total Protein Albumin 2.7 L Triglycerides Cholesterol LDL Cholesterol Direct HDL Cholesterol TSH Arterial Blood Glucose 249 H Arterial Blood Ionized Calcium Urine WBC (Auto) Urine Creatinine Urine Total Protein Crossmatch 05/02/21 05/02/21 05/02/21 10:52 11:58 15:15 WBC RBC Hgb Hct MCV RDW Plt Count Lymph % (Auto) [place] % (Auto) Lymph # (Auto) Seg Neutrophils % Seg Neuts % (Manual) Lymphocytes % (Manual) Monocytes % (Manual) Nucleated RBC % Lymphocytes # (Manual) D-Dimer Heparin Anti-Xa Level ABG pH 7.260 L POC ABG pCO2 99.9 H POC ABG pO2 74.9 L ABG pO2 ABG Hemoglobin ABG Oxyhemoglobin 92.1 L ABG Sodium 146.4 H ABG Potassium 5.7 H ABG Chloride ABG Glucose 266 H Carboxyhemoglobin Sodium 152 H Potassium 5.4 H Chloride Carbon Dioxide 41 H* BUN 47 H Creatinine Glucose 269 H POC Glucose 268 H Lactic Acid Calcium Phosphorus Magnesium 2.80 H AST ALT Total Creatine Kinase CK-MB (CK-2) Troponin T Total Protein Albumin Triglycerides Cholesterol LDL Cholesterol Direct HDL Cholesterol TSH Arterial Blood Glucose 266 H Arterial Blood Ionized Calcium Urine WBC (Auto) Urine Creatinine Urine Total Protein Crossmatch 05/02/21 05/03/21 05/03/21 18:05 00:06 03:45 WBC RBC Hgb Hct MCV 98 H RDW 17.1 H Plt Count Lymph % (Auto) [place] % (Auto) Lymph # (Auto) Seg Neutrophils % Seg Neuts % (Manual) Lymphocytes % (Manual) 9.0 L Monocytes % (Manual) Nucleated RBC % 6.0 H Lymphocytes # (Manual) 0.8 L D-Dimer Heparin Anti-Xa Level ABG pH POC ABG pCO2 POC ABG pO2 ABG pO2 ABG Hemoglobin ABG Oxyhemoglobin ABG Sodium ABG Potassium ABG Chloride ABG Glucose Carboxyhemoglobin Sodium Potassium Chloride Carbon Dioxide BUN Creatinine Glucose POC Glucose 225 H 230 H Lactic Acid Calcium Phosphorus Magnesium AST ALT Total Creatine Kinase CK-MB (CK-2) Troponin T Total Protein Albumin Triglycerides Cholesterol LDL Cholesterol Direct HDL Cholesterol TSH Arterial Blood Glucose Arterial Blood Ionized Calcium Urine WBC (Auto) Urine Creatinine Urine Total Protein Crossmatch 05/03/21 05/03/21 05/03/21 03:45 04:00 05:29 WBC RBC Hgb Hct MCV RDW Plt Count Lymph % (Auto) [place] % (Auto) Lymph # (Auto) Seg Neutrophils % Seg Neuts % (Manual) Lymphocytes % (Manual) Monocytes % (Manual) Nucleated RBC % Lymphocytes # (Manual) D-Dimer Heparin Anti-Xa Level ABG pH 7.237 L POC ABG pCO2 99.9 H POC ABG pO2 74.8 L ABG pO2 ABG Hemoglobin 11.9 L ABG Oxyhemoglobin 91.9 L ABG Sodium 147.0 H ABG Potassium 5.2 H ABG Chloride ABG Glucose 196 H Carboxyhemoglobin Sodium 151 H Potassium 5.7 H Chloride Carbon Dioxide 40 H BUN 68 H Creatinine 1.8 H D Glucose 200 H POC Glucose 200 H Lactic Acid Calcium Phosphorus Magnesium 3.10 H AST 42 H ALT Total Creatine Kinase CK-MB (CK-2) Troponin T Total Protein Albumin 2.4 L Triglycerides Cholesterol LDL Cholesterol Direct HDL Cholesterol TSH Arterial Blood Glucose 196 H Arterial Blood Ionized Calcium Urine WBC (Auto) Urine Creatinine Urine Total Protein Crossmatch 05/03/21 05/03/21 05/03/21 06:05 10:21 11:36 WBC RBC Hgb Hct MCV RDW Plt Count Lymph % (Auto) [place] % (Auto) Lymph # (Auto) Seg Neutrophils % Seg Neuts % (Manual) Lymphocytes % (Manual) Monocytes % (Manual) Nucleated RBC % Lymphocytes # (Manual) D-Dimer Heparin Anti-Xa Level ABG pH POC ABG pCO2 POC ABG pO2 ABG pO2 ABG Hemoglobin ABG Oxyhemoglobin ABG Sodium ABG Potassium ABG Chloride ABG Glucose Carboxyhemoglobin Sodium Potassium Chloride Carbon Dioxide BUN Creatinine Glucose POC Glucose 197 H Lactic Acid 2.20 H* Calcium Phosphorus Magnesium AST ALT Total Creatine Kinase CK-MB (CK-2) Troponin T Total Protein Albumin Triglycerides Cholesterol LDL Cholesterol Direct HDL Cholesterol TSH 0.051 L Arterial Blood Glucose Arterial Blood Ionized Calcium Urine WBC (Auto) Urine Creatinine Urine Total Protein Crossmatch 05/03/21 05/03/21 05/03/21 15:00 15:27 16:10 WBC RBC Hgb Hct MCV RDW Plt Count Lymph % (Auto) [place] % (Auto) Lymph # (Auto) Seg Neutrophils % Seg Neuts % (Manual) Lymphocytes % (Manual) Monocytes % (Manual) Nucleated RBC % Lymphocytes # (Manual) D-Dimer Heparin Anti-Xa Level ABG pH 7.184 L POC ABG pCO2 120.0 H POC ABG pO2 46.4 L ABG pO2 ABG Hemoglobin 10.4 L ABG Oxyhemoglobin 75.7 L ABG Sodium 148.9 H ABG Potassium ABG Chloride ABG Glucose 157 H Carboxyhemoglobin Sodium 151 H Potassium Chloride Carbon Dioxide 36 H BUN 73 H Creatinine 1.9 H Glucose 155 H POC Glucose Lactic Acid Calcium 10.3 H Phosphorus Magnesium 3.00 H AST ALT Total Creatine Kinase CK-MB (CK-2) Troponin T Total Protein Albumin Triglycerides Cholesterol LDL Cholesterol Direct HDL Cholesterol TSH Arterial Blood Glucose 157 H Arterial Blood Ionized Calcium Urine WBC (Auto) 43.0 H Urine Creatinine Urine Total Protein Crossmatch 05/03/21 05/03/21 05/03/21 16:10 18:03 20:00 WBC RBC Hgb Hct MCV RDW Plt Count Lymph % (Auto) [place] % (Auto) Lymph # (Auto) Seg Neutrophils % Seg Neuts % (Manual) Lymphocytes % (Manual) Monocytes % (Manual) Nucleated RBC % Lymphocytes # (Manual) D-Dimer Heparin Anti-Xa Level ABG pH POC ABG pCO2 82.8 H POC ABG pO2 46.6 L ABG pO2 ABG Hemoglobin 10.4 L ABG Oxyhemoglobin 81.7 L ABG Sodium 154.9 H ABG Potassium 5.5 H ABG Chloride ABG Glucose 152 H Carboxyhemoglobin Sodium Potassium Chloride Carbon Dioxide BUN Creatinine Glucose POC Glucose 108 H Lactic Acid Calcium Phosphorus Magnesium AST ALT Total Creatine Kinase CK-MB (CK-2) Troponin T Total Protein Albumin Triglycerides Cholesterol LDL Cholesterol Direct HDL Cholesterol TSH Arterial Blood Glucose 152 H Arterial Blood Ionized Calcium Urine WBC (Auto) Urine Creatinine 65.6 H Urine Total Protein Crossmatch 05/03/21 05/03/21 05/04/21 22:13 23:17 03:39 WBC RBC Hgb Hct MCV RDW Plt Count Lymph % (Auto) [place] % (Auto) Lymph # (Auto) Seg Neutrophils % Seg Neuts % (Manual) Lymphocytes % (Manual) Monocytes % (Manual) Nucleated RBC % Lymphocytes # (Manual) D-Dimer Heparin Anti-Xa Level ABG pH POC ABG pCO2 94.7 H 88.0 H POC ABG pO2 51.1 L 52.6 L ABG pO2 ABG Hemoglobin 10.6 L 10.3 L ABG Oxyhemoglobin 83.7 L 84.7 L ABG Sodium 156.1 H 157.7 H ABG Potassium 5.6 H 5.2 H ABG Chloride ABG Glucose 181 H 221 H Carboxyhemoglobin Sodium Potassium Chloride Carbon Dioxide BUN Creatinine Glucose POC Glucose 165 H Lactic Acid Calcium Phosphorus Magnesium AST ALT Total Creatine Kinase CK-MB (CK-2) Troponin T Total Protein Albumin Triglycerides Cholesterol LDL Cholesterol Direct HDL Cholesterol TSH Arterial Blood Glucose 181 H 221 H Arterial Blood Ionized Calcium Urine WBC (Auto) Urine Creatinine Urine Total Protein Crossmatch 05/04/21 05/04/21 05/04/21 05:27 07:11 07:11 WBC RBC 3.12 L Hgb 9.5 L Hct 29.8 L D MCV RDW 16.6 H Plt Count Lymph % (Auto) [place] % (Auto) Lymph # (Auto) Seg Neutrophils % Seg Neuts % (Manual) Lymphocytes % (Manual) Monocytes % (Manual) Nucleated RBC % Lymphocytes # (Manual) D-Dimer Heparin Anti-Xa Level ABG pH POC ABG pCO2 POC ABG pO2 ABG pO2 ABG Hemoglobin ABG Oxyhemoglobin ABG Sodium ABG Potassium ABG Chloride ABG Glucose Carboxyhemoglobin Sodium 160 H D Potassium 5.4 H Chloride 109.9 H Carbon Dioxide 45 H* D BUN 75 H Creatinine 1.5 H Glucose 223 H POC Glucose 193 H Lactic Acid Calcium Phosphorus Magnesium 3.10 H AST 44 H ALT Total Creatine Kinase CK-MB (CK-2) Troponin T Total Protein 5.7 L Albumin 2.2 L Triglycerides Cholesterol LDL Cholesterol Direct HDL Cholesterol TSH Arterial Blood Glucose Arterial Blood Ionized Calcium Urine WBC (Auto) Urine Creatinine Urine Total Protein Crossmatch 05/04/21 05/04/21 05/04/21 07:11 11:32 13:27 WBC RBC Hgb Hct MCV RDW Plt Count Lymph % (Auto) [place] % (Auto) Lymph # (Auto) Seg Neutrophils % Seg Neuts % (Manual) Lymphocytes % (Manual) Monocytes % (Manual) Nucleated RBC % Lymphocytes # (Manual) D-Dimer Heparin Anti-Xa Level ABG pH POC ABG pCO2 POC ABG pO2 ABG pO2 ABG Hemoglobin ABG Oxyhemoglobin ABG Sodium ABG Potassium ABG Chloride ABG Glucose Carboxyhemoglobin Sodium Potassium Chloride Carbon Dioxide BUN Creatinine Glucose POC Glucose 276 H Lactic Acid 3.00 H* 3.00 H* Calcium Phosphorus Magnesium AST ALT Total Creatine Kinase CK-MB (CK-2) Troponin T Total Protein Albumin Triglycerides Cholesterol LDL Cholesterol Direct HDL Cholesterol TSH Arterial Blood Glucose Arterial Blood Ionized Calcium Urine WBC (Auto) Urine Creatinine Urine Total Protein Crossmatch 05/04/21 05/04/21 05/04/21 13:27 13:53 16:25 WBC RBC Hgb Hct MCV RDW Plt Count Lymph % (Auto) [place] % (Auto) Lymph # (Auto) Seg Neutrophils % Seg Neuts % (Manual) Lymphocytes % (Manual) Monocytes % (Manual) Nucleated RBC % Lymphocytes # (Manual) D-Dimer Heparin Anti-Xa Level ABG pH 7.275 L POC ABG pCO2 117.3 H 80.8 H POC ABG pO2 69.8 L 55.2 L ABG pO2 ABG Hemoglobin 9.5 L 8.6 L ABG Oxyhemoglobin 89.6 L 86.0 L ABG Sodium 156.2 H 155.9 H ABG Potassium ABG Chloride ABG Glucose 263 H 230 H Carboxyhemoglobin 1.6 H Sodium Potassium Chloride Carbon Dioxide BUN Creatinine Glucose POC Glucose Lactic Acid Calcium Phosphorus Magnesium 3.00 H AST ALT Total Creatine Kinase CK-MB (CK-2) Troponin T Total Protein Albumin Triglycerides Cholesterol LDL Cholesterol Direct HDL Cholesterol TSH Arterial Blood Glucose 263 H 230 H Arterial Blood Ionized Calcium 4.5 L Urine WBC (Auto) Urine Creatinine Urine Total Protein Crossmatch 05/04/21 05/04/21 05/04/21 17:28 22:00 22:00 WBC RBC Hgb Hct MCV RDW Plt Count Lymph % (Auto) [place] % (Auto) Lymph # (Auto) Seg Neutrophils % Seg Neuts % (Manual) Lymphocytes % (Manual) Monocytes % (Manual) Nucleated RBC % Lymphocytes # (Manual) D-Dimer Heparin Anti-Xa Level ABG pH POC ABG pCO2 87.2 H POC ABG pO2 60.7 L ABG pO2 ABG Hemoglobin 8.9 L ABG Oxyhemoglobin 87.8 L ABG Sodium 155.8 H ABG Potassium 4.6 H ABG Chloride ABG Glucose 194 H Carboxyhemoglobin Sodium 159 H Potassium Chloride 110.3 H Carbon Dioxide 44 H* BUN 70 H Creatinine 1.4 H Glucose 200 H POC Glucose 202 H Lactic Acid Calcium Phosphorus Magnesium AST ALT Total Creatine Kinase CK-MB (CK-2) Troponin T Total Protein Albumin Triglycerides Cholesterol LDL Cholesterol Direct HDL Cholesterol TSH Arterial Blood Glucose 194 H Arterial Blood Ionized Calcium Urine WBC (Auto) Urine Creatinine Urine Total Protein Crossmatch 05/04/21 05/05/21 05/05/21 23:12 04:58 04:58 WBC RBC 2.78 L Hgb 8.6 L Hct 27.1 L MCV RDW 17.0 H Plt Count Lymph % (Auto) [place] % (Auto) Lymph # (Auto) Seg Neutrophils % Seg Neuts % (Manual) Lymphocytes % (Manual) Monocytes % (Manual) Nucleated RBC % Lymphocytes # (Manual) D-Dimer Heparin Anti-Xa Level ABG pH POC ABG pCO2 POC ABG pO2 ABG pO2 ABG Hemoglobin ABG Oxyhemoglobin ABG Sodium ABG Potassium ABG Chloride ABG Glucose Carboxyhemoglobin Sodium 161 H* Potassium Chloride 112.6 H Carbon Dioxide 46 H* BUN 67 H Creatinine Glucose 188 H POC Glucose 196 H Lactic Acid Calcium Phosphorus Magnesium 3.00 H AST ALT Total Creatine Kinase CK-MB (CK-2) Troponin T Total Protein Albumin Triglycerides Cholesterol LDL Cholesterol Direct HDL Cholesterol TSH Arterial Blood Glucose Arterial Blood Ionized Calcium Urine WBC (Auto) Urine Creatinine Urine Total Protein Crossmatch 05/05/21 05/05/21 05/05/21 05:11 10:52 11:55 WBC RBC Hgb Hct MCV RDW Plt Count Lymph % (Auto) [place] % (Auto) Lymph # (Auto) Seg Neutrophils % Seg Neuts % (Manual) Lymphocytes % (Manual) Monocytes % (Manual) Nucleated RBC % Lymphocytes # (Manual) D-Dimer Heparin Anti-Xa Level ABG pH POC ABG pCO2 89.7 H POC ABG pO2 60.2 L ABG pO2 ABG Hemoglobin 8.8 L ABG Oxyhemoglobin 86.9 L ABG Sodium 153.6 H ABG Potassium ABG Chloride ABG Glucose 195 H Carboxyhemoglobin Sodium Potassium Chloride Carbon Dioxide BUN Creatinine Glucose POC Glucose 157 H 186 H Lactic Acid Calcium Phosphorus Magnesium AST ALT Total Creatine Kinase CK-MB (CK-2) Troponin T Total Protein Albumin Triglycerides Cholesterol LDL Cholesterol Direct HDL Cholesterol TSH Arterial Blood Glucose 195 H Arterial Blood Ionized Calcium Urine WBC (Auto) Urine Creatinine Urine Total Protein Crossmatch 05/05/21 05/05/21 05/06/21 17:50 23:24 00:05 WBC RBC Hgb Hct MCV RDW Plt Count Lymph % (Auto) [place] % (Auto) Lymph # (Auto) Seg Neutrophils % Seg Neuts % (Manual) Lymphocytes % (Manual) Monocytes % (Manual) Nucleated RBC % Lymphocytes # (Manual) D-Dimer Heparin Anti-Xa Level ABG pH POC ABG pCO2 POC ABG pO2 ABG pO2 ABG Hemoglobin ABG Oxyhemoglobin ABG Sodium ABG Potassium ABG Chloride ABG Glucose Carboxyhemoglobin Sodium 152 H D Potassium Chloride Carbon Dioxide BUN Creatinine Glucose POC Glucose 177 H 227 H Lactic Acid Calcium Phosphorus Magnesium AST ALT Total Creatine Kinase CK-MB (CK-2) Troponin T Total Protein Albumin Triglycerides Cholesterol LDL Cholesterol Direct HDL Cholesterol TSH Arterial Blood Glucose Arterial Blood Ionized Calcium Urine WBC (Auto) Urine Creatinine Urine Total Protein Crossmatch 05/06/21 05/06/21 05/06/21 04:26 05:08 06:17 WBC RBC 2.34 L Hgb 7.2 L Hct 22.7 L MCV RDW 16.8 H Plt Count 139 L Lymph % (Auto) [place] % (Auto) Lymph # (Auto) Seg Neutrophils % Seg Neuts % (Manual) Lymphocytes % (Manual) Monocytes % (Manual) Nucleated RBC % Lymphocytes # (Manual) D-Dimer Heparin Anti-Xa Level ABG pH 7.292 L POC ABG pCO2 93.8 H POC ABG pO2 47.8 L ABG pO2 ABG Hemoglobin 7.9 L ABG Oxyhemoglobin 76.2 L ABG Sodium 145.7 H ABG Potassium ABG Chloride ABG Glucose 245 H Carboxyhemoglobin 1.6 H Sodium Potassium Chloride Carbon Dioxide BUN Creatinine Glucose POC Glucose 252 H Lactic Acid Calcium Phosphorus Magnesium AST ALT Total Creatine Kinase CK-MB (CK-2) Troponin T Total Protein Albumin Triglycerides Cholesterol LDL Cholesterol Direct HDL Cholesterol TSH Arterial Blood Glucose 245 H Arterial Blood Ionized Calcium Urine WBC (Auto) Urine Creatinine Urine Total Protein Crossmatch 05/06/21 05/06/21 05/06/21 06:17 10:40 11:34 WBC RBC Hgb Hct MCV RDW Plt Count Lymph % (Auto) [place] % (Auto) Lymph # (Auto) Seg Neutrophils % Seg Neuts % (Manual) Lymphocytes % (Manual) Monocytes % (Manual) Nucleated RBC % Lymphocytes # (Manual) D-Dimer Heparin Anti-Xa Level ABG pH POC ABG pCO2 POC ABG pO2 ABG pO2 ABG Hemoglobin ABG Oxyhemoglobin ABG Sodium ABG Potassium ABG Chloride ABG Glucose Carboxyhemoglobin Sodium 150 H Potassium Chloride Carbon Dioxide 47 H* BUN 80 H Creatinine 1.6 H Glucose 264 H POC Glucose 208 H Lactic Acid Calcium Phosphorus Magnesium AST ALT Total Creatine Kinase CK-MB (CK-2) Troponin T Total Protein Albumin Triglycerides Cholesterol LDL Cholesterol Direct HDL Cholesterol TSH Arterial Blood Glucose Arterial Blood Ionized Calcium Urine WBC (Auto) Urine Creatinine Urine Total Protein Crossmatch See Detail 05/06/21 05/06/21 05/06/21 13:41 14:31 16:29 WBC RBC Hgb Hct MCV RDW Plt Count Lymph % (Auto) [place] % (Auto) Lymph # (Auto) Seg Neutrophils % Seg Neuts % (Manual) Lymphocytes % (Manual) Monocytes % (Manual) Nucleated RBC % Lymphocytes # (Manual) D-Dimer Heparin Anti-Xa Level ABG pH 7.117 L 7.275 L POC ABG pCO2 128.1 H 74.7 H POC ABG pO2 49.7 L 37.6 L ABG pO2 ABG Hemoglobin 8.3 L 5.3 L ABG Oxyhemoglobin 71.6 L 63.2 L ABG Sodium ABG Potassium ABG Chloride 97.0 L ABG Glucose 247 H 239 H Carboxyhemoglobin 1.6 H Sodium Potassium Chloride Carbon Dioxide BUN Creatinine Glucose POC Glucose Lactic Acid Calcium Phosphorus Magnesium AST ALT Total Creatine Kinase CK-MB (CK-2) Troponin T Total Protein Albumin Triglycerides 215 H Cholesterol LDL Cholesterol Direct HDL Cholesterol TSH Arterial Blood Glucose 247 H 239 H Arterial Blood Ionized Calcium 4.2 L 4.1 L Urine WBC (Auto) Urine Creatinine Urine Total Protein Crossmatch 05/06/21 05/06/21 05/07/21 17:50 23:51 02:57 WBC RBC Hgb Hct MCV RDW Plt Count Lymph % (Auto) [place] % (Auto) Lymph # (Auto) Seg Neutrophils % Seg Neuts % (Manual) Lymphocytes % (Manual) Monocytes % (Manual) Nucleated RBC % Lymphocytes # (Manual) D-Dimer Heparin Anti-Xa Level ABG pH 7.208 L POC ABG pCO2 91.5 H POC ABG pO2 51.2 L ABG pO2 ABG Hemoglobin 10.5 L ABG Oxyhemoglobin 78.7 L ABG Sodium ABG Potassium ABG Chloride 97.0 L ABG Glucose 251 H Carboxyhemoglobin Sodium Potassium Chloride Carbon Dioxide BUN Creatinine Glucose POC Glucose 244 H 230 H Lactic Acid Calcium Phosphorus Magnesium AST ALT Total Creatine Kinase CK-MB (CK-2) Troponin T Total Protein Albumin Triglycerides Cholesterol LDL Cholesterol Direct HDL Cholesterol TSH Arterial Blood Glucose 251 H Arterial Blood Ionized Calcium 4.4 L Urine WBC (Auto) Urine Creatinine Urine Total Protein Crossmatch 05/07/21 05/07/21 05/07/21 05:20 05:20 05:32 WBC RBC 3.22 L Hgb 10.0 L Hct MCV RDW 17.1 H Plt Count 116 L Lymph % (Auto) [place] % (Auto) Lymph # (Auto) Seg Neutrophils % Seg Neuts % (Manual) 77.0 H Lymphocytes % (Manual) 2.0 L Monocytes % (Manual) Nucleated RBC % 37.0 H Lymphocytes # (Manual) 0.2 L D-Dimer Heparin Anti-Xa Level ABG pH POC ABG pCO2 POC ABG pO2 ABG pO2 ABG Hemoglobin ABG Oxyhemoglobin ABG Sodium ABG Potassium ABG Chloride ABG Glucose Carboxyhemoglobin Sodium Potassium Chloride 97.2 L Carbon Dioxide 36 H D BUN 93 H Creatinine 2.1 H Glucose 238 H POC Glucose 225 H Lactic Acid Calcium Phosphorus Magnesium 2.40 H AST 71 H ALT Total Creatine Kinase CK-MB (CK-2) Troponin T Total Protein 5.1 L Albumin 2.2 L Triglycerides Cholesterol LDL Cholesterol Direct HDL Cholesterol TSH Arterial Blood Glucose Arterial Blood Ionized Calcium Urine WBC (Auto) Urine Creatinine Urine Total Protein Crossmatch 05/07/21 05/07/21 05/07/21 11:00 11:45 17:31 WBC RBC Hgb Hct MCV RDW Plt Count Lymph % (Auto) [place] % (Auto) Lymph # (Auto) Seg Neutrophils % Seg Neuts % (Manual) Lymphocytes % (Manual) Monocytes % (Manual) Nucleated RBC % Lymphocytes # (Manual) D-Dimer Heparin Anti-Xa Level ABG pH 7.207 L POC ABG pCO2 92.2 H POC ABG pO2 51.2 L ABG pO2 ABG Hemoglobin 10.5 L ABG Oxyhemoglobin 77.9 L ABG Sodium ABG Potassium ABG Chloride ABG Glucose 214 H Carboxyhemoglobin Sodium Potassium Chloride Carbon Dioxide BUN Creatinine Glucose POC Glucose 177 H 197 H Lactic Acid Calcium Phosphorus Magnesium AST ALT Total Creatine Kinase CK-MB (CK-2) Troponin T Total Protein Albumin Triglycerides Cholesterol LDL Cholesterol Direct HDL Cholesterol TSH Arterial Blood Glucose 214 H Arterial Blood Ionized Calcium 4.5 L Urine WBC (Auto) Urine Creatinine Urine Total Protein Crossmatch 05/07/21 05/07/21 05/08/21 21:22 23:54 02:11 WBC RBC Hgb Hct MCV RDW Plt Count Lymph % (Auto) [place] % (Auto) Lymph # (Auto) Seg Neutrophils % Seg Neuts % (Manual) Lymphocytes % (Manual) Monocytes % (Manual) Nucleated RBC % Lymphocytes # (Manual) D-Dimer Heparin Anti-Xa Level ABG pH POC ABG pCO2 POC ABG pO2 ABG pO2 ABG Hemoglobin ABG Oxyhemoglobin ABG Sodium ABG Potassium ABG Chloride ABG Glucose Carboxyhemoglobin Sodium Potassium Chloride Carbon Dioxide BUN Creatinine Glucose POC Glucose 172 H 164 H 132 H Lactic Acid Calcium Phosphorus Magnesium AST ALT Total Creatine Kinase CK-MB (CK-2) Troponin T Total Protein Albumin Triglycerides Cholesterol LDL Cholesterol Direct HDL Cholesterol TSH Arterial Blood Glucose Arterial Blood Ionized Calcium Urine WBC (Auto) Urine Creatinine Urine Total Protein Crossmatch 05/08/21 05/08/21 05/08/21 03:03 05:31 10:54 WBC RBC 3.38 L Hgb Hct MCV RDW 16.2 H Plt Count 128 L Lymph % (Auto) [place] % (Auto) Lymph # (Auto) Seg Neutrophils % Seg Neuts % (Manual) Lymphocytes % (Manual) Monocytes % (Manual) Nucleated RBC % Lymphocytes # (Manual) D-Dimer Heparin Anti-Xa Level ABG pH 7.230 L POC ABG pCO2 87.9 H POC ABG pO2 58.3 L ABG pO2 ABG Hemoglobin 10.6 L ABG Oxyhemoglobin 84.4 L ABG Sodium ABG Potassium 4.6 H ABG Chloride 97.0 L ABG Glucose 143 H Carboxyhemoglobin Sodium Potassium Chloride Carbon Dioxide BUN Creatinine Glucose POC Glucose 148 H Lactic Acid Calcium Phosphorus Magnesium AST ALT Total Creatine Kinase CK-MB (CK-2) Troponin T Total Protein Albumin Triglycerides Cholesterol LDL Cholesterol Direct HDL Cholesterol TSH Arterial Blood Glucose 143 H Arterial Blood Ionized Calcium 4.3 L Urine WBC (Auto) Urine Creatinine Urine Total Protein Crossmatch 05/08/21 05/08/21 05/08/21 10:54 11:31 17:41 WBC RBC Hgb Hct MCV RDW Plt Count Lymph % (Auto) [place] % (Auto) Lymph # (Auto) Seg Neutrophils % Seg Neuts % (Manual) Lymphocytes % (Manual) Monocytes % (Manual) Nucleated RBC % Lymphocytes # (Manual) D-Dimer Heparin Anti-Xa Level ABG pH POC ABG pCO2 POC ABG pO2 ABG pO2 ABG Hemoglobin ABG Oxyhemoglobin ABG Sodium ABG Potassium ABG Chloride ABG Glucose Carboxyhemoglobin Sodium Potassium 5.1 H Chloride 97.8 L Carbon Dioxide 37 H BUN 112 H Creatinine 2.2 H Glucose 163 H POC Glucose 170 H 193 H Lactic Acid Calcium Phosphorus Magnesium AST ALT Total Creatine Kinase CK-MB (CK-2) Troponin T Total Protein Albumin Triglycerides Cholesterol LDL Cholesterol Direct HDL Cholesterol TSH Arterial Blood Glucose Arterial Blood Ionized Calcium Urine WBC (Auto) Urine Creatinine Urine Total Protein Crossmatch 05/08/21 05/09/21 05/09/21 21:28 04:17 05:56 WBC RBC Hgb Hct MCV RDW Plt Count Lymph % (Auto) [place] % (Auto) Lymph # (Auto) Seg Neutrophils % Seg Neuts % (Manual) Lymphocytes % (Manual) Monocytes % (Manual) Nucleated RBC % Lymphocytes # (Manual) D-Dimer Heparin Anti-Xa Level ABG pH POC ABG pCO2 POC ABG pO2 ABG pO2 ABG Hemoglobin ABG Oxyhemoglobin ABG Sodium ABG Potassium ABG Chloride ABG Glucose Carboxyhemoglobin Sodium Potassium Chloride Carbon Dioxide BUN Creatinine Glucose POC Glucose 185 H 47 L 139 H Lactic Acid Calcium Phosphorus Magnesium AST ALT Total Creatine Kinase CK-MB (CK-2) Troponin T Total Protein Albumin Triglycerides Cholesterol LDL Cholesterol Direct HDL Cholesterol TSH Arterial Blood Glucose Arterial Blood Ionized Calcium Urine WBC (Auto) Urine Creatinine Urine Total Protein Crossmatch 05/09/21 05/09/21 09:15 09:15 WBC 20.2 H RBC 2.89 L Hgb 8.7 L Hct 29.1 L MCV 101 H RDW 17.8 H Plt Count 134 L Lymph % (Auto) [place] % (Auto) Lymph # (Auto) Seg Neutrophils % Seg Neuts % (Manual) Lymphocytes % (Manual) Monocytes % (Manual) Nucleated RBC % Lymphocytes # (Manual) D-Dimer Heparin Anti-Xa Level ABG pH POC ABG pCO2 POC ABG pO2 ABG pO2 ABG Hemoglobin ABG Oxyhemoglobin ABG Sodium ABG Potassium ABG Chloride ABG Glucose Carboxyhemoglobin Sodium 147 H Potassium Chloride 97.5 L Carbon Dioxide BUN 135 H Creatinine 3.3 H Glucose 109 H POC Glucose Lactic Acid Calcium Phosphorus Magnesium AST ALT Total Creatine Kinase CK-MB (CK-2) Troponin T Total Protein Albumin Triglycerides Cholesterol LDL Cholesterol Direct HDL Cholesterol TSH Arterial Blood Glucose Arterial Blood Ionized Calcium Urine WBC (Auto) Urine Creatinine Urine Total Protein Crossmatch Allied health notes reviewed: nursing
[2021-05-09] MEDS: SODIUM BICARBONATE 150 MEQ in DEXTROSE 5% IN WATER 1,000 ML IV SCH ×2 (10:30→20:49)
[2021-05-09] MEDS: NORepinephrine/NS 8 MG-250 ML 8 MG/250 ML INFUS..BTL IV SCH ×3 (10:31→20:44)
[2021-05-09] MEDS: levETIRAcetam 500 MG/5 ML ORAL LIQD PO SCH ×2 (10:31→21:30)
[2021-05-09] MEDS: ASPIRIN 325 MG TAB PO SCH (10:32)
[2021-05-09] MEDS: QUEtiapine 25 MG TAB PO SCH ×2 (10:32→21:32)
[2021-05-09] MEDS: FAMOTIDINE 20 MG TAB PO SCH (10:32)
[2021-05-09] MEDS: cefTRIAXone/NS 2 GM/100 ML 2 GM/100 ML BAG IV SCH (10:34)
[2021-05-09] MEDS: VASOPRESSIN 20 UNIT in SODIUM CHLORIDE 0.9% 100 ML IV SCH ×2 (10:47→21:57)
[2021-05-09] MEDS ORDERED: CALCIUM CHLORIDE 1,000 MG in SODIUM CHLORIDE 0.9% 100 ML IV ONE (11:00)
[2021-05-09] MEDS ORDERED: INSULIN REGULAR, HUMAN 100 UNITS/1 ML IV SCH (11:00)
--- NOTE | 2021-05-09 11:10 | Event Note ---
Date: 05/09/21 Patient had another cardiac arrest this am with spontaneous return of circulation after ACLS initiation and status post 1x epi, 1 xbicarb and 1 x calcium chloride. discussed with patient brother at bedside and updated daughter by phone following the cardiac arrest. Discussed with family about poor prognosis as patient now with multiorgan failu re : Severe hypoxic respiratory failure with interstitial lung disease bilateral multiple PE, acute renal failure with hyperkalemia, severe septic shock, metabolic encephalopathy. Family verbalized understanding and wanted to proceed with full CODE STATUS Ordered for stat CBC BMP Order for bicarbonate drip Continue to follow clinically Extremely poor prognosis --The high probability of a clinically significant, sudden or life threatening deterioration of the multisystem(s) required my full and direct attention, intervention and personal management. The aggregate critical care time was 45 minutes. This time is in addition to time spent performing reported procedures but includes the following: [x] Data Review and interpretation [x] Patient assessment and monitoring of vital signs [x] Documentation [x] Medication orders and management
--- NOTE | 2021-05-09 11:13 | Ultrasound Report ---
ULTRASOUND RENAL INDICATION: ckd. COMPARISON: No relevant prior imaging study available. FINDINGS: RIGHT KIDNEY: Size: 10.8 cm. Echogenicity: Normal. Cortical thickness: Normal. Stones: None. Hydronephrosis: None. Cyst or mass: There is a 7.5 cm cyst in the superior right kidney. LEFT KIDNEY: Size: 9.5 cm. Echogenicity: Normal. Cortical thickness: Normal. Stones: None. Hydronephrosis: None. Cyst or mass: None. Urinary Bladder: No significant abnormality. Free Fluid: None. Additional Findings: None. IMPRESSION 1. No acute sonographic abnormality of the kidneys. 2. Large cyst in the upper pole of the right kidney. Signer Name: Deacon Spangler MD Signed: 05/09/2021 11:09 AM Workstation Name: [id number]
[2021-05-09] MEDS: PHENYLEPHRINE 100 MG in SODIUM CHLORIDE 0.9% 90 ML IV SCH (12:28)
[2021-05-09] MEDS ORDERED: SODIUM POLYSTYRENE 15 GM/60 ML ORAL LIQD PO NR (13:26)
--- NOTE | 2021-05-09 14:01 | Progress Note ---
Assessment and Plan This is a 66-year-old female with HTN, HLD, prior CVA with resulting left-sided weakness present today with emergency department via EMS for AMS and new onset seizures with increased left-sided weakness. Upon arrival to the emergency room patient was intubated for airway protection and hypoxia. Patient was admitted to the hospital service with new onset seizures, acute hypoxic respiratory failure with pulmonary embolism on CTA, acute kidney injury, rhabdomyolysis. Assessment and plan: --Status post cardiac arrest x3 Patient had a return of pulse after initiation of ACLS Currently patient on multiple pressors Had discussion with family and want to proceed with full code --New onset sz; metabolic encephalopathy new onset seizures - on keppra PERRL; no commands but remains sedated on prop and ativan CT head on admit- IMPRESSION: Encephalomalacia in the right temporal lobe, frontal lobe; no acute/subacute parenchymal lesions MRI Encephalomalacia in the right cerebral hemisphere - see report will need repeat CT per neuro when PEEP is dec; Dr Arrington has told RN's not to take to CT on level of vent support she is requiring daily SAT limited by hypoxia RAAS goal neg 4 seroquel BID; following QT case management following family updated daily on plan of care --History of CVA with left-sided weakness Supportive care, neuro consulted, patient currently intubated asa/statin --hypotension likely volume depletion/sepsis or combination of the 2 echo 04/22 see report -normal biV function s/p adenosine and amiodarone on 05/03 for some tachycardia Vasopressors for blood pressure support --Acute hypoxic resp failure likely due to PE and ILD present on CTA; Klebsiella pneumonia, refractory hypoxia requiring MV; permissive hypercapnia to Ph of 7.2 intubated in ER; remains ventilated Patient on 100% FiO2 Critical care following Serial ABGs CT noted - a/c lung disease evident with ILD, PE's noted US BLE neg for DVT trending lactate/ABG and chest xrays continue nebs continue solumedrol will likely need trach Antibiotic therapy --illeus , resolved, now tolerating tube feeding diet TF at goal nutrition following PPI bowel reg - colace/senna/miralax --LIZBETH likely due to ATN Corral; exchange 05/05 strict I/O trend and replace electrolytes as needed trend BUN/CR/CK Nephrology reconsulted, --Hyperkalemia, placed on bicarbonate drip, order for calcium chloride and insulin Nephrology following, repeat BMP --Hypernatremia, resolved with IV fluid -- acute Pulmonary emboli s/p VTE on lovenox BID -now on hold for severe anemia requiring transfusion trending coags/Xa trend CBC no bleeding on exam LE dopplers neg for DVT; positive CTA for PE on admit -- lactic acidosis, GNR UTI, gram-negative cornell bacteremia covid neg afebrile but lactic acid high and pt now on NE and vaso; also ST on monitor abx: cefepime (vanco d/c d/t UC with GNR), Corral change 05/05 continue to trend temp and WBC curve --Severe anemia, status post 2 units of transfusion --Pneumonia with Klebsiella, treated with 7 days course of antibiotics --DVT prophylaxis, with SCD The high probability of a clinically significant, sudden or life threatening deterioration of the [respiratory] system(s) required my full and direct attention, intervention and personal management. The aggregate critical care time was [95] minutes. This time is in addition to time spent performing reported procedures but includes the following: [x] Data Review and interpretation [x] Patient assessment and monitoring of vital signs [x] Documentation [x] Medication orders and management Daily clinical course: 04-30 NO ACUTE EVENTS OVERNIGHT; diuresis with 40 mg IV lasix 05-01 no acute events overnight; diuresis with 40 mg IV lasix 05-02: diuresis with lasix 40 mg IV during the day - pt still grossly pos per I/O; and pt weight, overnight pt persistently tachycardic given adenosine and amio gtt 05/04: Nephrology will try Lasix, [facility] adjust advanced to APRV to help with ventilation. Will obtain BMP at 2100. [facility] okay with SPO2 greater than 88, pH of greater than 7.2. Hypernatremia to 160, started on D5 W, severe hypercapnia noted on ABG and patient ventilator settings was changed. Lactic acidosis noted with hyperglycemia. Hyperkalemia noted which was medically treated. 05/05: Lasix again today per nephro., increase in Plow to 30 post abg per [facility], increase in D5W gtt and FWF q200 and will restart TF. Vanco d/c r/t GNR in urine and corral changed. Remains on levo and vaso. 05/06: BP steadily decreasing. Levophed gtt titrated up, stop TF, infuse 2 units of PRBC ,and gave 1 L bolus of LR. Nephro and PCCM recs noted. 05/07: H&H stable after transfusing 2 minutes packed RBC yesterday. Creatinine slightly elevated today -nephrology following. We will repeat BMP tomorrow. Sodium level normalized. Patient remains on mechanical ventilation with Levophed. 05/08: Patient is stable, critical care recommended to continue to hold Lovenox/heparin for anemia. Patient remains on pressor support. Patient on maximal ventilation support still experiencing hypoxia. Had a discussion with the daughter and critical care attending family wants to continue full CODE STATUS. Renal function declining, nephrology following. 05/09: Patient coded twice last night. Patient had another cardiac arrest this am with spontaneous return of circulation after ACLS initiation and status post 1x epi, 1 xbicarb and 1 x calcium chloride. discussed with patient brother at bedside and updated daughter by phone following the cardiac arrest. Discussed with family about poor prognosis as patient now with multiorgan failure : Severe hypoxic respiratory failure with interstitial lung disease bilateral multiple PE, acute renal failure with hyperkalemia, severe septic shock, metabolic encephalopathy. Family verbalized understanding and wanted to proceed with full CODE STATUS. Ordered for stat CBC BMP. Order for bicarbonate drip Continue to follow clinically. Extremely poor prognosis. We will also initiate on heparin drip, repeat culture Subjective Date of service: 05/09/21 Principal diagnosis: Acute kidney injury, rhabdomyolysis Interval history: Patient seen and examined. Medical records and medication list reviewed. s/p cardiac arrest x3 Patient remains on pressor support and mechanical ventilation Discussed plan of care at bedside with patient's RN. Discussed plan of care with patient family and wants to continue full code Objective - Exam Narrative Exam: General appearance: Present: Remains on mechanical ventilation, unresponsive - EENT Eyes: Present: Sluggishly reactive pupil - Neck Neck: Present: supple - Respiratory Respiratory effort: normal Respiratory: bilateral: diminished - Cardiovascular Rhythm: regular - Extremities Extremities: no ischemia, pulses symmetrical Peripheral Pulses: within normal limits - Abdominal General gastrointestinal: soft, non-tender - Integumentary Integumentary: Present: warm, dry - Psychiatric Psychiatric: other (unresponsive) - Neurologic Neurologic: other (unresponsive) - Constitutional Vitals: Vital Signs - 12hr 05/09/21 05/09/21 05/09/21 02:00 02:15 02:30 Temperature Pulse Rate 141 H 142 H 142 H Pulse Rate [ Anterior Bilateral] Pulse Rate [ Bilateral] Pulse Rate [ From Monitor] Respiratory 28 H 28 H 28 H Rate Respiratory Rate [Anterior Bilateral] Respiratory Rate [Bilateral ] Blood Pressure 103/61 103/61 93/60 O2 Sat by Pulse 60 L 65 L 61 L Oximetry 05/09/21 05/09/21 05/09/21 02:45 03:00 03:15 Temperature Pulse Rate 142 H 140 H 140 H Pulse Rate [ Anterior Bilateral] Pulse Rate [ Bilateral] Pulse Rate [ From Monitor] Respiratory 27 H 26 H 26 H Rate Respiratory Rate [Anterior Bilateral] Respiratory Rate [Bilateral ] Blood Pressure 88/58 103/61 114/57 O2 Sat by Pulse 64 L 68 L 66 L Oximetry 05/09/21 05/09/21 05/09/21 03:31 03:45 04:00 Temperature 98.0 F Pulse Rate 141 H 140 H 136 H Pulse Rate [ Anterior Bilateral] Pulse Rate [ Bilateral] Pulse Rate [ 141 H From Monitor] Respiratory 27 H 27 H 27 H Rate Respiratory Rate [Anterior Bilateral] Respiratory Rate [Bilateral ] Blood Pressure 117/61 113/55 110/56 O2 Sat by Pulse 66 L 66 L 96 Oximetry 05/09/21 05/09/21 05/09/21 04:15 04:30 04:35 Temperature Pulse Rate 140 H 136 H 135 H Pulse Rate [ Anterior Bilateral] Pulse Rate [ Bilateral] Pulse Rate [ From Monitor] Respiratory 26 H 26 H Rate Respiratory Rate [Anterior Bilateral] Respiratory Rate [Bilateral ] Blood Pressure 101/56 108/60 101/56 O2 Sat by Pulse 60 L 60 L 61 L Oximetry 05/09/21 05/09/21 05/09/21 04:45 05:00 05:15 Temperature Pulse Rate 137 H 137 H 136 H Pulse Rate [ Anterior Bilateral] Pulse Rate [ Bilateral] Pulse Rate [ From Monitor] Respiratory 26 H 26 H 23 Rate Respiratory Rate [Anterior Bilateral] Respiratory Rate [Bilateral ] Blood Pressure 95/56 103/55 112/50 O2 Sat by Pulse 61 L 67 L 66 L Oximetry 05/09/21 05/09/21 05/09/21 05:30 05:45 06:00 Temperature Pulse Rate 136 H 136 H 137 H Pulse Rate [ Anterior Bilateral] Pulse Rate [ Bilateral] Pulse Rate [ From Monitor] Respiratory 27 H 26 H 27 H Rate Respiratory Rate [Anterior Bilateral] Respiratory Rate [Bilateral ] Blood Pressure 107/52 106/55 108/53 O2 Sat by Pulse 63 L 60 L 63 L Oximetry 05/09/21 05/09/21 05/09/21 06:15 06:30 06:45 Temperature Pulse Rate 137 H 137 H 136 H Pulse Rate [ Anterior Bilateral] Pulse Rate [ Bilateral] Pulse Rate [ From Monitor] Respiratory 27 H 27 H 26 H Rate Respiratory Rate [Anterior Bilateral] Respiratory Rate [Bilateral ] Blood Pressure 114/54 111/54 108/54 O2 Sat by Pulse 63 L 63 L 63 L Oximetry 05/09/21 05/09/21 05/09/21 07:00 07:15 07:30 Temperature Pulse Rate 136 H 128 H 132 H Pulse Rate [ Anterior Bilateral] Pulse Rate [ Bilateral] Pulse Rate [ From Monitor] Respiratory 27 H 27 H 27 H Rate Respiratory Rate [Anterior Bilateral] Respiratory Rate [Bilateral ] Blood Pressure 107/55 113/47 95/48 O2 Sat by Pulse 63 L 56 L 53 L Oximetry 05/09/21 05/09/21 05/09/21 07:45 08:00 08:35 Temperature 100.3 F H Pulse Rate 133 H 134 H 134 H Pulse Rate [ Anterior Bilateral] Pulse Rate [ Bilateral] Pulse Rate [ From Monitor] Respiratory 27 H 27 H Rate Respiratory Rate [Anterior Bilateral] Respiratory Rate [Bilateral ] Blood Pressure 103/54 108/53 108/53 O2 Sat by Pulse 58 L 59 L 59 L Oximetry 05/09/21 05/09/21 05/09/21 08:37 11:22 12:00 Temperature 99.3 F Pulse Rate 129 H Pulse Rate [ 123 H Anterior Bilateral] Pulse Rate [ 128 H Bilateral] Pulse Rate [ From Monitor] Respiratory Rate Respiratory 26 H Rate [Anterior Bilateral] Respiratory 31 H Rate [Bilateral ] Blood Pressure 100/55 O2 Sat by Pulse 89 Oximetry - Labs CBC & Chem 7: 05/10/21 13:30 05/10/21 13:30 Labs: Abnormal lab results 05/08/21 05/08/21 05/09/21 Range/Units 17:41 21:28 04:17 WBC (4.5-11.0) K/mm3 RBC (3.65-5.03) M/mm3 Hgb (10.1-14.3) gm/dl Hct (30.3-42.9) % MCV (79-97) fl RDW (13.2-15.2) % Plt Count (140-440) K/mm3 Sodium (137-145) mmol/L Potassium (3.6-5.0) mmol/L Chloride (98-107) mmol/L BUN (7-17) mg/dL Creatinine (0.6-1.2) mg/dL Glucose (65-100) mg/dL POC Glucose 193 H 185 H 47 L (70-105) mg/dL 05/09/21 05/09/21 05/09/21 Range/Units 05:56 09:15 09:15 WBC 20.2 H (4.5-11.0) K/mm3 RBC 2.89 L (3.65-5.03) M/mm3 Hgb 8.7 L (10.1-14.3) gm/dl Hct 29.1 L (30.3-42.9) % MCV 101 H (79-97) fl RDW 17.8 H (13.2-15.2) % Plt Count 134 L (140-440) K/mm3 Sodium 147 H (137-145) mmol/L Potassium 6.2 H* D (3.6-5.0) mmol/L Chloride 97.5 L (98-107) mmol/L BUN 135 H (7-17) mg/dL Creatinine 3.3 H (0.6-1.2) mg/dL Glucose 109 H (65-100) mg/dL POC Glucose 139 H (70-105) mg/dL HEART Score - HEART Score Age: 45-65 Risk factors: 1-2 risk factors Troponin: Troponin T 0.055 ng/mL (0.00-0.029) H 04/21/21 16:32 - Critical Actions Critical Actions: 0-3 pts:0.9-1.7%risk of adverse cardiac event.Candidate for discharge
[2021-05-09] MEDS ORDERED: HEPARIN 10,000 UNITS/10 ML VIAL IV PRN (14:02)
[2021-05-09] MEDS ORDERED: HEPARIN/ 0.45% NACL DRIP 25,000 UNIT/500 ML BAG IV SCH (15:00)
[2021-05-09 16:15] LABS: Hematocrit 25.4 % (30.3-42.9); Hemoglobin 7.6 gm/dl (10.1-14.3)
[2021-05-09 16:34] LABS: Calcium 7.4 mg/dL (8.4-10.2)
[2021-05-09 16:40] LABS: INR 2.74 (0.87-1.13)
[2021-05-09 16:41] LABS: Partial Thromboplastin Time 44.9 Sec. (24.2-36.6)
--- NOTE | 2021-05-09 18:57 | Progress Note ---
Assessment and Plan - Patient Problems (1) LIZBETH (acute kidney injury) Current Visit: Yes Status: Acute Plan to address problem: Likely in the setting of acute tubular necrosis and prerenal injury with now worsening renal failure in the setting of multiple cardiac arrests within the last 24 hours. Her overall prognosis is grim at this time. Given her poor prognosis, I would highly recommend that we continue discussions with family in regards to goals of care, as I do not see a significant benefit for initiating renal replacement therapy at this time. Will continue to closely monitor. (2) Acute respiratory failure with hypoxia Current Visit: Yes Status: Acute Plan to address problem: Chest x-ray reviewed with findings concerning for volume overload and pulmonary edema. FiO2 remains 100% on current vent settings. Patient had responded to previous lasix doses, but with her current worsening hemodynamic parameters, Lasix was held yesterday. Despite today's renal function I do think that we should at least try to give dose of Lasix 20 mg IV for management of her significant volume overload/pulmonary edema. (3) Hypotension Current Visit: Yes Status: Acute Plan to address problem: Pressor support to maintain mean arterial pressures above 65 mmHg.. (4) Hyperkalemia Current Visit: Yes Status: Acute Plan to address problem: Medical management at this time and will closely monitor. (5) Hypernatremia Current Visit: Yes Status: Acute Plan to address problem: Will monitor closely. Replete free water losses. Subjective Date of service: 05/09/21 Principal diagnosis: Acute kidney injury, rhabdomyolysis Interval history: Seen earlier this morning. Had a cardiac arrest earlier this am, with ROSC, placed ond dopamine and vasopressing gtt. Continues on levophed gtt. Remains intubated. No labs this am during my examination. Objective - Vital Signs Vital signs: Vital Signs - 12hr 05/09/21 05/09/21 05/09/21 07:00 07:15 07:30 Temperature Pulse Rate 136 H 128 H 132 H Pulse Rate [ Anterior Bilateral] Pulse Rate [ Bilateral] Respiratory 27 H 27 H 27 H Rate Respiratory Rate [Anterior Bilateral] Respiratory Rate [Bilateral ] Blood Pressure 107/55 113/47 95/48 O2 Sat by Pulse 63 L 56 L 53 L Oximetry 05/09/21 05/09/21 05/09/21 07:45 08:00 08:15 Temperature 100.3 F H Pulse Rate 133 H 133 H 133 H Pulse Rate [ Anterior Bilateral] Pulse Rate [ Bilateral] Respiratory 27 H 27 H 26 H Rate Respiratory Rate [Anterior Bilateral] Respiratory Rate [Bilateral ] Blood Pressure 103/54 108/53 114/52 O2 Sat by Pulse 58 L 59 L 62 L Oximetry 05/09/21 05/09/21 05/09/21 08:30 08:35 08:37 Temperature Pulse Rate 133 H 134 H Pulse Rate [ 123 H Anterior Bilateral] Pulse Rate [ 128 H Bilateral] Respiratory 27 H Rate Respiratory 26 H Rate [Anterior Bilateral] Respiratory 31 H Rate [Bilateral ] Blood Pressure 110/54 108/53 O2 Sat by Pulse 62 L 59 L Oximetry 05/09/21 05/09/21 05/09/21 08:45 09:01 09:15 Temperature Pulse Rate 76 141 H 136 H Pulse Rate [ Anterior Bilateral] Pulse Rate [ Bilateral] Respiratory 27 H 28 H 29 H Rate Respiratory Rate [Anterior Bilateral] Respiratory Rate [Bilateral ] Blood Pressure 110/54 111/64 126/66 O2 Sat by Pulse 44 L 72 L Oximetry 05/09/21 05/09/21 05/09/21 09:30 09:45 10:01 Temperature Pulse Rate 132 H 120 H 124 H Pulse Rate [ Anterior Bilateral] Pulse Rate [ Bilateral] Respiratory Rate Respiratory Rate [Anterior Bilateral] Respiratory Rate [Bilateral ] Blood Pressure 102/54 126/66 106/36 O2 Sat by Pulse 67 L Oximetry 05/09/21 05/09/21 05/09/21 10:15 10:31 10:45 Temperature Pulse Rate 125 H 121 H 125 H Pulse Rate [ Anterior Bilateral] Pulse Rate [ Bilateral] Respiratory Rate Respiratory Rate [Anterior Bilateral] Respiratory Rate [Bilateral ] Blood Pressure 88/44 82/32 93/53 O2 Sat by Pulse 73 L 64 L Oximetry 05/09/21 05/09/21 05/09/21 11:00 11:15 11:22 Temperature Pulse Rate 126 H 132 H 129 H Pulse Rate [ Anterior Bilateral] Pulse Rate [ Bilateral] Respiratory 27 H Rate Respiratory Rate [Anterior Bilateral] Respiratory Rate [Bilateral ] Blood Pressure 102/50 102/50 100/55 O2 Sat by Pulse 73 L 66 L 89 Oximetry 05/09/21 05/09/21 05/09/21 11:31 11:45 12:00 Temperature 99.3 F Pulse Rate 130 H 128 H 128 H Pulse Rate [ Anterior Bilateral] Pulse Rate [ Bilateral] Respiratory 28 H 28 H Rate Respiratory Rate [Anterior Bilateral] Respiratory Rate [Bilateral ] Blood Pressure 107/53 96/57 O2 Sat by Pulse 71 L 70 L Oximetry 05/09/21 05/09/21 05/09/21 12:01 12:15 12:31 Temperature Pulse Rate 128 H 128 H 127 H Pulse Rate [ Anterior Bilateral] Pulse Rate [ Bilateral] Respiratory 27 H 26 H 26 H Rate Respiratory Rate [Anterior Bilateral] Respiratory Rate [Bilateral ] Blood Pressure 98/56 88/55 103/61 O2 Sat by Pulse 69 L 71 L 72 L Oximetry 05/09/21 05/09/21 05/09/21 12:45 13:00 13:15 Temperature Pulse Rate 128 H 128 H 128 H Pulse Rate [ Anterior Bilateral] Pulse Rate [ Bilateral] Respiratory 27 H 26 H 26 H Rate Respiratory Rate [Anterior Bilateral] Respiratory Rate [Bilateral ] Blood Pressure 103/61 141/57 129/60 O2 Sat by Pulse 69 L 70 L 71 L Oximetry 05/09/21 05/09/21 05/09/21 13:30 13:45 14:00 Temperature Pulse Rate 128 H 128 H 128 H Pulse Rate [ Anterior Bilateral] Pulse Rate [ Bilateral] Respiratory 27 H 26 H 26 H Rate Respiratory Rate [Anterior Bilateral] Respiratory Rate [Bilateral ] Blood Pressure 147/62 141/65 158/62 O2 Sat by Pulse 73 L 73 L 71 L Oximetry 05/09/21 05/09/21 05/09/21 14:15 14:30 14:45 Temperature Pulse Rate 128 H 128 H 122 H Pulse Rate [ Anterior Bilateral] Pulse Rate [ Bilateral] Respiratory 27 H 26 H 26 H Rate Respiratory Rate [Anterior Bilateral] Respiratory Rate [Bilateral ] Blood Pressure 139/66 149/64 140/59 O2 Sat by Pulse 85 73 L Oximetry 05/09/21 05/09/21 05/09/21 15:01 15:15 15:31 Temperature Pulse Rate 117 H 111 H 123 H Pulse Rate [ Anterior Bilateral] Pulse Rate [ Bilateral] Respiratory 27 H 27 H 28 H Rate Respiratory Rate [Anterior Bilateral] Respiratory Rate [Bilateral ] Blood Pressure 89/51 106/45 166/60 O2 Sat by Pulse 69 L 62 L 70 L Oximetry 05/09/21 05/09/21 05/09/21 15:45 15:57 16:00 Temperature Pulse Rate 124 H 129 H 120 H Pulse Rate [ Anterior Bilateral] Pulse Rate [ Bilateral] Respiratory 24 Rate Respiratory Rate [Anterior Bilateral] Respiratory Rate [Bilateral ] Blood Pressure 145/60 100/55 O2 Sat by Pulse 72 L 89 Oximetry 05/09/21 05/09/21 05/09/21 16:01 16:15 16:31 Temperature Pulse Rate 121 H 118 H 117 H Pulse Rate [ Anterior Bilateral] Pulse Rate [ Bilateral] Respiratory 26 H 24 27 H Rate Respiratory Rate [Anterior Bilateral] Respiratory Rate [Bilateral ] Blood Pressure 128/48 131/56 128/29 O2 Sat by Pulse 71 L 70 L 69 L Oximetry 05/09/21 05/09/21 05/09/21 16:45 17:00 17:15 Temperature Pulse Rate 118 H 120 H 119 H Pulse Rate [ Anterior Bilateral] Pulse Rate [ Bilateral] Respiratory 27 H 26 H 28 H Rate Respiratory Rate [Anterior Bilateral] Respiratory Rate [Bilateral ] Blood Pressure 121/39 126/51 118/45 O2 Sat by Pulse 66 L 68 L Oximetry - General Appearance General appearance: appears stated age, chronically ill, intubated, frail EENT: ATNC Neck: no thyromegaly Respiratory: Present: Decreased Breath Sounds Cardiology: regular Gastrointestinal: normal Integumentary: warm and dry Musculoskeletal: deferred - Lab 05/09/21 15:30 05/09/21 15:30 Most recent lab results ABG pH 7.230 (7.320-7.450) L 05/08/21 03:03 ABG pCO2 46.0 mm Hg 04/22/21 17:30 ABG pO2 99.6 mm Hg (80.0-90.0) H 04/22/21 17:30 ABG HCO3 24.4 mmol/L (20.0-26.0) 04/22/21 17:30 ABG O2 Saturation 85.9 (0-100) 05/08/21 03:03 Calcium 7.4 mg/dL (8.4-10.2) L D 05/09/21 15:30 Phosphorus 3.00 mg/dL (2.5-4.5) D 05/05/21 04:58 Magnesium 2.40 mg/dL (1.7-2.3) H 05/07/21 05:20 Urine Creatinine 65.6 mg/dL (0.1-20.0) H 05/03/21 16:10 Urine Sodium 38 mmol/L 05/03/21 16:10 Urine Total Protein 86 mg/dL (5-11.8) H 04/22/21 13:03 - Allied health notes Allied health notes reviewed: nursing Medications & Allergies - Medications Allergies/Adverse Reactions: Allergies No Known Allergies Allergy (Unverified 03/04/19 19:33) Home Medications: Home Medications Medication Instructions Recorded Confirmed Last Taken Type Lipitor 40 mg PO QHS #30 03/10/19 04/25/21 Unknown Rx Aspirin 300 mg PO QDAY 04/25/21 04/25/21 Unknown History Aspirin [Aspirin BABY CHEW TAB] 81 mg PO QDAY 04/25/21 04/25/21 Unknown History Sertraline [Zoloft] 50 mg PO QDAY 04/25/21 04/25/21 Unknown History amLODIPine 10 mg PO QDAY 04/25/21 04/25/21 Unknown History hydroCHLOROthiazide 12.5 mg PO QDAY 04/25/21 04/25/21 Unknown History [Hydrochlorothiazide] Active Medications: Generic Name Dose Route Start Last Admin Trade Name Freq PRN Reason Stop Dose Admin Acetaminophen 650 mg 04/21/21 21:11 05/06/21 04:04 Acetaminophen 325 Mg Tab PO 650 mg Q4H PRN Administration Pain MILD(1-3)/Fever >100.5/DICKINSON Acetaminophen 650 mg 05/03/21 23:39 Acetaminophen 650 Mg Rect Supp [place] Q6H PRN Fever>100.5 Lipase/Protease/Amylase 1 each 04/22/21 10:51 Lipase 10,500/Protease 25,000/Amylase 43,750 (Units) Dr Ryan FEEDTUBE PRN PRN For Clogged Feeding Tube Arformoterol Tartrate 15 mcg 04/29/21 20:00 05/09/21 08:37 Arformoterol 15 Mcg/2 Ml Nebu IH 15 mcg Q12HRT MINOR Administration Aspirin 325 mg 05/01/21 13:00 05/09/21 10:32 Aspirin 325 Mg Tab PO 325 mg QDAY MINOR Administration Atorvastatin Calcium 40 mg 05/01/21 22:00 05/08/21 22:00 Atorvastatin 40 Mg Tab PO 40 mg QHS MINOR Administration Budesonide 0.5 mg 04/29/21 20:00 05/09/21 08:37 Budesonide 0.5 Mg/2 Ml Nebu IH 0.5 mg Q12HRT MINOR Administration Dextrose 50 ml 05/04/21 19:00 05/09/21 04:22 Dextrose 50% In Water (25gm) 50 Ml Syringe IV 50 ml Q30MIN PRN Administration Hypoglycemia Protocol Famotidine 20 mg 05/04/21 10:00 05/09/21 10:32 Famotidine 20 Mg Tab PO 20 mg DAILY MINOR Administration Heparin Sodium (Porcine) 3,500 unit 05/09/21 14:02 Heparin 10,000 Units/10 Ml Vial 40 unit/kg (3500 unit) IV Q6H PRN Anti-Xa Assay < 0.1 units/ml Hydralazine HCl 10 mg 04/29/21 12:23 Hydralazine 20 Mg/1 Ml Inj IV Q4H PRN Hypertension Hydrophilic Ointment 1 applic 04/21/21 15:46 Lip Therapy Vaseline TP Q2HR PRN Dry Lips Vasopressin 20 unit/ Sodium 101 mls @ 9.09 mls/hr 05/02/21 21:00 05/09/21 10:47 Chloride IV 0.03 units/min TITR MINOR 9.09 mls/hr Administration Protocol 0.03 UNITS/MIN Phenylephrine HCl 100 mg/ 100 mls @ 3 mls/hr 05/06/21 11:00 05/09/21 14:00 Sodium Chloride IV 0 mcg/min TITR MINOR 0 mls/hr Titration Protocol 50 MCG/MIN Epinephrine 8 mg/ Sodium 250 mls @ 3.75 mls/hr 05/09/21 00:03 05/09/21 13:00 Chloride IV 0 mcg/min TITR MINOR 0 mls/hr Titration Protocol 2 MCG/MIN Dopamine HCl/Dextrose 800 mg in 250 mls @ 3.3 mls/hr 05/09/21 07:30 05/09/21 17:45 Intropin Drip 800 Mg/D5w 250 Ml IV 18 mcg/kg/min TITR MINOR 29.7 mls/hr Titration Protocol 2 MCG/KG/MIN Sodium Bicarbonate 150 meq/ 1,150 mls @ 125 mls/hr 05/09/21 09:15 05/09/21 10:30 Dextrose IV 125 mls/hr DIRECT MINOR Administration NORepinephrine/NS 8 MG-250 ML 8 mg in 250 mls @ 3.75 mls/hr 05/09/21 10:00 05/09/21 17:48 Norepinephrine/Ns 8 Mg-250 Ml (Double Conc) IV 24 mcg/min TITRATE MINOR 45 mls/hr Titration Protocol 2 MCG/MIN Heparin Sodium/Sodium Chloride 25,000 unit in 500 mls @ 26 mls/hr 05/09/21 15:00 Heparin/ 0.45% Nacl-25,000 Unit/500 Ml IV TITR MINOR Protocol 1,300 UNITS/HR Insulin Human Lispro 0 unit 05/03/21 00:00 05/09/21 17:19 Insulin Lispro 100 Unit/Ml SUB-Q Not Given Q6HR MINOR Protocol Levetiracetam 750 mg 04/25/21 10:00 05/09/21 10:31 Levetiracetam 500 Mg/5 Ml Oral Liqd PO 750 mg BID MINOR Administration Lorazepam 1 mg 05/08/21 12:51 Lorazepam 2 Mg/Ml Vial IV Q6H PRN Agitation/SEIZURES Methylprednisolone Sodium Succinate 60 mg 04/28/21 06:00 05/09/21 17:20 Methylprednisolone Sod Succinate 40 Mg/1 Ml Inj IV 60 mg Q6H MINOR Administration Multi-Ingred Cream/Lotion/Oil/Oint 1 applic 04/21/21 15:46 Mineral Oil/Petrolatum, White Ophth Oint 3.5 Gm OU Q4HR PRN Dry Eye(s) Ondansetron HCl 4 mg 05/03/21 18:23 05/03/21 18:40 Ondansetron 4 Mg/2 Ml Inj IV 4 mg Q6H PRN Administration Nausea And Vomiting Polyethylene Glycol 17 gm 05/02/21 15:00 Polyethylene Glycol 3350 17 Gm Powder PO QDAY PRN Constipation Quetiapine Fumarate 25 mg 04/30/21 11:00 05/09/21 10:32 Quetiapine 25 Mg Tab PO 25 mg BID MINOR Administration Senna/Docusate Sodium 1 tab 04/26/21 22:00 05/08/21 22:00 Sennosides/Docusate Sodium 8.6/50 Mg Tab FEEDTUBE 1 tab QHS MINOR Administration Simple Syrup 15 ml 04/22/21 10:51 Simple Syrup 15 Ml FEEDTUBE PRN PRN Hypoglycemia Simple Syrup 30 ml 04/22/21 10:51 Simple Syrup 15 Ml FEEDTUBE PRN PRN Hypoglycemia Sodium Bicarbonate 325 mg 04/22/21 10:51 Sodium Bicarbonate 325 Mg Tab FEEDTUBE PRN PRN For Clogged Feeding Tube Sodium Chloride 10 ml 04/21/21 22:00 05/09/21 12:27 Sodium Chloride 0.9% 10 Ml Flush Syringe IV 10 ml BID MINOR Administration Sodium Chloride 10 ml 04/21/21 21:11 05/09/21 05:36 Sodium Chloride 0.9% 10 Ml Flush Syringe IV 10 ml PRN PRN Administration LINE FLUSH
[2021-05-09] MEDS: SENNOSIDES/DOCUSATE SODIUM 8.6/50 MG TAB FEEDTUBE SCH (21:32)
[2021-05-10] MEDS: INSULIN LISPRO 100 UNIT/ML SUB-Q SCH ×3 (00:49→12:38)
[2021-05-10] MEDS: methylPREDNISolone Sod Succinate 40 MG/1 ML INJ IV SCH ×3 (00:59→12:36)
[2021-05-10] MEDS: NORepinephrine/NS 8 MG-250 ML 8 MG/250 ML INFUS..BTL IV SCH ×3 (01:59→13:37)
[2021-05-10] MEDS: SODIUM BICARBONATE 150 MEQ in DEXTROSE 5% IN WATER 1,000 ML IV SCH ×2 (05:38→14:36)
[2021-05-10 05:42] LABS: Hemoglobin 7.2 gm/dl (10.1-14.3); Mean Corpuscular HGB Conc 30 % (30-34); Mean Corpuscular Volume 103 fl (79-97); Red Blood Count 2.32 M/mm3 (3.65-5.03); Red Cell Distribution Width 18.4 % (13.2-15.2)
[2021-05-10 05:46] LABS: Platelet Count 96 K/mm3 (140-440)
[2021-05-10 05:51] LABS: Albumin 1.5 g/dL (3.9-5); Calcium 7.1 mg/dL (8.4-10.2)
[2021-05-10] MEDS: DOPamine/D5W 800 MG/250 ML 800 MG/250 ML BAG IV SCH ×3 (06:25→15:08)
[2021-05-10 06:55] LABS: Anisocytosis 1+; Total Cells Counted 100
[2021-05-10 06:56] LABS: Large Platelets Few; Platelet Estimate Consistent w Auto; Schistocytes Rare
[2021-05-10] MEDS: ARFORMOTEROL 15 MCG/2 ML NEBU IH SCH (08:30)
[2021-05-10] MEDS: BUDESONIDE 0.5 MG/2 ML NEBU IH SCH (08:30)
[2021-05-10] MEDS ORDERED: DEXTROSE 50% IN WATER (25GM) 50 ML SYRINGE IV NR (09:00)
[2021-05-10] MEDS ORDERED: SODIUM POLYSTYRENE 15 GM/60 ML ORAL LIQD PR NR (09:01)
--- NOTE | 2021-05-10 09:33 | Progress Note ---
Assessment and Plan - Patient Problems (1) LIZBETH (acute kidney injury) Current Visit: Yes Status: Acute Plan to address problem: Likely in the setting of acute tubular necrosis and prerenal injury with now worsening renal failure in the setting of multiple cardiac arrests within the last 24 hours. Her overall prognosis is grim at this time. Given her poor prognosis, I would highly recommend that we continue discussions with family in regards to goals of care, as I do not see a significant benefit for initiating renal replacement therapy at this time. She is hemodynamically unstable for iHD as she remains on three pressors. She has pulmonary edema evident on her chest xray, but given her poor blood pressures, she would not be able to tolerate UF with HD. I doubt she would even be able to tolerate HD only for clearance and correction of hyperka lemia. Dialysis will not change her overall poor prognosis. Will call and discuss with family today. Had an extensive discussion with hospitalist physician Dr Mahoney. (2) Hyperkalemia Current Visit: Yes Status: Acute Plan to address problem: Medical management at this time and will closely monitor. (3) Hypotension Current Visit: Yes Status: Acute Plan to address problem: Pressor support to maintain mean arterial pressures above 65 mmHg. Pressor requirements are increasing at this time. Overall prognosis is poor. (4) Acute respiratory failure with hypoxia Current Visit: Yes Status: Acute Plan to address problem: Chest x-ray reviewed with findings concerning for volume overload and pulmonary edema. FiO2 remains 100% on current vent settings. Patient had responded to previous lasix doses, but with her current worsening hemodynamic parameters, Lasix is being held. She is a poor candidate for HD as I do not believe that she would be able to tolerate UF with HD, as she is remaining on three pressors at this time. (5) Hypernatremia Current Visit: Yes Status: Acute Plan to address problem: Will monitor closely. Replete free water losses. Subjective Date of service: 05/10/21 Principal diagnosis: Acute kidney injury, rhabdomyolysis Interval history: Events overnight reviewed. Labs this am showing worsening renal function and hyperkalemia likely as a consequence of severe ATN as this patient has had 3 cardiac arrests over the last 24 hours. Her prognosis is grim and she remains on three pressors at this time. Remains intubated, with FiO2 100%. Objective - Vital Signs Vital signs: Vital Signs - 12hr 05/09/21 05/09/21 05/09/21 21:30 21:45 22:00 Temperature Pulse Rate 119 H 119 H 119 H Pulse Rate [ Anterior Bilateral] Pulse Rate [ From Monitor] Respiratory 26 H 26 H 28 H Rate Respiratory Rate [Anterior Bilateral] Blood Pressure 139/55 139/58 141/55 O2 Sat by Pulse 72 L 72 L 74 L Oximetry 05/09/21 05/09/21 05/09/21 22:15 22:31 22:45 Temperature Pulse Rate 118 H 117 H 116 H Pulse Rate [ Anterior Bilateral] Pulse Rate [ From Monitor] Respiratory 27 H 26 H 26 H Rate Respiratory Rate [Anterior Bilateral] Blood Pressure 138/49 129/27 141/75 O2 Sat by Pulse 70 L 74 L Oximetry 05/09/21 05/09/21 05/09/21 23:01 23:13 23:15 Temperature Pulse Rate 116 H 116 H 116 H Pulse Rate [ Anterior Bilateral] Pulse Rate [ From Monitor] Respiratory 25 H 26 H 26 H Rate Respiratory Rate [Anterior Bilateral] Blood Pressure 134/72 134/72 110/57 O2 Sat by Pulse 71 L 70 L 73 L Oximetry 05/09/21 05/09/21 05/09/21 23:30 23:45 23:50 Temperature 97.8 F Pulse Rate 115 H 115 H Pulse Rate [ Anterior Bilateral] Pulse Rate [ From Monitor] Respiratory 27 H 25 H Rate Respiratory Rate [Anterior Bilateral] Blood Pressure 125/59 109/80 O2 Sat by Pulse 74 L 69 L Oximetry 05/10/21 05/10/21 05/10/21 00:00 00:15 00:16 Temperature Pulse Rate 115 H 115 H 115 H Pulse Rate [ Anterior Bilateral] Pulse Rate [ 119 H From Monitor] Respiratory 25 H 26 H Rate Respiratory Rate [Anterior Bilateral] Blood Pressure 125/58 111/60 111/60 O2 Sat by Pulse 76 L 72 L 72 L Oximetry 05/10/21 05/10/21 05/10/21 00:30 00:45 01:00 Temperature Pulse Rate 115 H 114 H 114 H Pulse Rate [ Anterior Bilateral] Pulse Rate [ From Monitor] Respiratory 27 H 27 H 25 H Rate Respiratory Rate [Anterior Bilateral] Blood Pressure 117/59 127/61 127/61 O2 Sat by Pulse 75 L 73 L 74 L Oximetry 05/10/21 05/10/21 05/10/21 01:15 01:31 01:45 Temperature Pulse Rate 113 H 113 H 113 H Pulse Rate [ Anterior Bilateral] Pulse Rate [ From Monitor] Respiratory 26 H 26 H 24 Rate Respiratory Rate [Anterior Bilateral] Blood Pressure 144/57 144/43 144/43 O2 Sat by Pulse 68 L Oximetry 05/10/21 05/10/21 05/10/21 02:00 02:15 02:30 Temperature Pulse Rate 113 H 113 H 112 H Pulse Rate [ Anterior Bilateral] Pulse Rate [ From Monitor] Respiratory 25 H 25 H 25 H Rate Respiratory Rate [Anterior Bilateral] Blood Pressure 124/55 120/43 120/52 O2 Sat by Pulse 65 L 75 L 68 L Oximetry 05/10/21 05/10/21 05/10/21 02:45 03:00 03:15 Temperature Pulse Rate 113 H 112 H 113 H Pulse Rate [ Anterior Bilateral] Pulse Rate [ From Monitor] Respiratory 26 H 26 H 25 H Rate Respiratory Rate [Anterior Bilateral] Blood Pressure 115/48 117/48 101/38 O2 Sat by Pulse 78 L 77 L Oximetry 05/10/21 05/10/21 05/10/21 03:31 03:37 03:45 Temperature 97.6 F Pulse Rate 112 H 112 H Pulse Rate [ Anterior Bilateral] Pulse Rate [ From Monitor] Respiratory 25 H 25 H Rate Respiratory Rate [Anterior Bilateral] Blood Pressure 117/78 114/67 O2 Sat by Pulse 58 L Oximetry 05/10/21 05/10/21 05/10/21 04:00 04:15 04:30 Temperature Pulse Rate 112 H 112 H 112 H Pulse Rate [ Anterior Bilateral] Pulse Rate [ 115 H From Monitor] Respiratory 25 H 25 H 25 H Rate Respiratory Rate [Anterior Bilateral] Blood Pressure 120/74 120/74 122/64 O2 Sat by Pulse 83 L Oximetry 05/10/21 05/10/21 05/10/21 04:31 04:45 05:01 Temperature Pulse Rate 112 H 112 H 111 H Pulse Rate [ Anterior Bilateral] Pulse Rate [ From Monitor] Respiratory 25 H 25 H Rate Respiratory Rate [Anterior Bilateral] Blood Pressure 122/64 119/56 115/68 O2 Sat by Pulse 0 L 78 L 94 Oximetry 05/10/21 05/10/21 05/10/21 05:15 05:31 05:45 Temperature Pulse Rate 109 H 110 H 110 H Pulse Rate [ Anterior Bilateral] Pulse Rate [ From Monitor] Respiratory 25 H 25 H 25 H Rate Respiratory Rate [Anterior Bilateral] Blood Pressure 114/58 114/58 114/58 O2 Sat by Pulse 66 L Oximetry 05/10/21 05/10/21 05/10/21 06:01 08:22 08:30 Temperature Pulse Rate 110 H 108 H Pulse Rate [ 107 H Anterior Bilateral] Pulse Rate [ From Monitor] Respiratory 26 H Rate Respiratory 30 H Rate [Anterior Bilateral] Blood Pressure 114/58 113/81 O2 Sat by Pulse 0 L Oximetry - General Appearance General appearance: chronically ill, intubated EENT: ATNC Neck: no JVD Respiratory: Present: Decreased Breath Sounds Cardiology: tachycardia Gastrointestinal: normal Integumentary: no rash Musculoskeletal: deferred - Lab 05/10/21 04:51 05/10/21 04:51 Most recent lab results ABG pH 7.230 (7.320-7.450) L 05/08/21 03:03 ABG pCO2 46.0 mm Hg 04/22/21 17:30 ABG pO2 99.6 mm Hg (80.0-90.0) H 04/22/21 17:30 ABG HCO3 24.4 mmol/L (20.0-26.0) 04/22/21 17:30 ABG O2 Saturation 85.9 (0-100) 05/08/21 03:03 Calcium 7.1 mg/dL (8.4-10.2) L 05/10/21 04:51 Phosphorus 3.00 mg/dL (2.5-4.5) D 05/05/21 04:58 Magnesium 2.40 mg/dL (1.7-2.3) H 05/07/21 05:20 Urine Creatinine 65.6 mg/dL (0.1-20.0) H 05/03/21 16:10 Urine Sodium 38 mmol/L 05/03/21 16:10 Urine Total Protein 86 mg/dL (5-11.8) H 04/22/21 13:03 - Allied health notes Allied health notes reviewed: nursing Medications & Allergies - Medications Allergies/Adverse Reactions: Allergies No Known Allergies Allergy (Unverified 03/04/19 19:33) Home Medications: Home Medications Medication Instructions Recorded Confirmed Last Taken Type Lipitor 40 mg PO QHS #30 03/10/19 04/25/21 Unknown Rx Aspirin 300 mg PO QDAY 04/25/21 04/25/21 Unknown History Aspirin [Aspirin BABY CHEW TAB] 81 mg PO QDAY 04/25/21 04/25/21 Unknown History Sertraline [Zoloft] 50 mg PO QDAY 04/25/21 04/25/21 Unknown History amLODIPine 10 mg PO QDAY 04/25/21 04/25/21 Unknown History hydroCHLOROthiazide 12.5 mg PO QDAY 04/25/21 04/25/21 Unknown History [Hydrochlorothiazide] Active Medications: Generic Name Dose Route Start Last Admin Trade Name Freq PRN Reason Stop Dose Admin Acetaminophen 650 mg 04/21/21 21:11 05/06/21 04:04 Acetaminophen 325 Mg Tab PO 650 mg Q4H PRN Administration Pain MILD(1-3)/Fever >100.5/DICKINSON Acetaminophen 650 mg 05/03/21 23:39 Acetaminophen 650 Mg Rect Supp [place] Q6H PRN Fever>100.5 Lipase/Protease/Amylase 1 each 04/22/21 10:51 Lipase 10,500/Protease 25,000/Amylase 43,750 (Units) Dr Ryan FEEDTUBE PRN PRN For Clogged Feeding Tube Arformoterol Tartrate 15 mcg 04/29/21 20:00 05/10/21 08:30 Arformoterol 15 Mcg/2 Ml Nebu IH 15 mcg Q12HRT MINOR Administration Aspirin 325 mg 05/01/21 13:00 05/09/21 10:32 Aspirin 325 Mg Tab PO 325 mg QDAY MINOR Administration Atorvastatin Calcium 40 mg 05/01/21 22:00 05/09/21 21:31 Atorvastatin 40 Mg Tab PO 40 mg QHS MINOR Administration Budesonide 0.5 mg 04/29/21 20:00 05/10/21 08:30 Budesonide 0.5 Mg/2 Ml Nebu IH 0.5 mg Q12HRT MINOR Administration Dextrose 50 ml 05/04/21 19:00 05/09/21 04:22 Dextrose 50% In Water (25gm) 50 Ml Syringe IV 50 ml Q30MIN PRN Administration Hypoglycemia Protocol Dextrose 50 ml 05/10/21 09:00 Dextrose 50% In Water (25gm) 50 Ml Syringe IV 05/10/21 09:01 ONCE ONE Protocol Famotidine 20 mg 05/04/21 10:00 05/09/21 10:32 Famotidine 20 Mg Tab PO 20 mg DAILY MINOR Administration Heparin Sodium (Porcine) 3,500 unit 05/09/21 14:02 Heparin 10,000 Units/10 Ml Vial 40 unit/kg (3500 unit) IV Q6H PRN Anti-Xa Assay < 0.1 units/ml Hydralazine HCl 10 mg 04/29/21 12:23 Hydralazine 20 Mg/1 Ml Inj IV Q4H PRN Hypertension Hydrophilic Ointment 1 applic 04/21/21 15:46 Lip Therapy Vaseline TP Q2HR PRN Dry Lips Vasopressin 20 unit/ Sodium 101 mls @ 9.09 mls/hr 05/02/21 21:00 05/09/21 2 1:57 Chloride IV 0.03 units/min TITR MINOR 9.09 mls/hr Administration Protocol 0.03 UNITS/MIN Phenylephrine HCl 100 mg/ 100 mls @ 3 mls/hr 05/06/21 11:00 05/09/21 14:00 Sodium Chloride IV 0 mcg/min TITR MINOR 0 mls/hr Titration Protocol 50 MCG/MIN Epinephrine 8 mg/ Sodium 250 mls @ 3.75 mls/hr 05/09/21 00:03 05/09/21 13:00 Chloride IV 0 mcg/min TITR MINOR 0 mls/hr Titration Protocol 2 MCG/MIN Dopamine HCl/Dextrose 800 mg in 250 mls @ 3.3 mls/hr 05/09/21 07:30 05/10/21 06:25 Intropin Drip 800 Mg/D5w 250 Ml IV 18 mcg/kg/min TITR MINOR 29.7 mls/hr Administration Protocol 2 MCG/KG/MIN Sodium Bicarbonate 150 meq/ 1,150 mls @ 125 mls/hr 05/09/21 09:15 05/10/21 05:38 Dextrose IV 125 mls/hr DIRECT MINOR Administration NORepinephrine/NS 8 MG-250 ML 8 mg in 250 mls @ 3.75 mls/hr 05/09/21 10:00 05/10/21 07:59 Norepinephrine/Ns 8 Mg-250 Ml (Double Conc) IV 24 mcg/min TITRATE MINOR 45 mls/hr Administration Protocol 2 MCG/MIN Heparin Sodium/Sodium Chloride 25,000 unit in 500 mls @ 26 mls/hr 05/09/21 15:00 05/09/21 22:06 Heparin/ 0.45% Nacl-25,000 Unit/500 Ml IV 1,300 units/hr TITR MINOR 26 mls/hr Administration Protocol 1,300 UNITS/HR Calcium Gluconate 1,000 mg/ 110 mls @ 660 mls/hr 05/10/21 09:00 Sodium Chloride IV 05/10/21 09:09 ONCE ONE Insulin Human Lispro 0 unit 05/03/21 00:00 05/10/21 05:37 Insulin Lispro 100 Unit/Ml SUB-Q Not Given Q6HR [facility] Protocol Insulin Human Regular 10 units 05/10/21 08:59 Insulin Regular, Human 100 Units/1 Ml IV 05/10/21 09:00 ONCE ONE Levetiracetam 750 mg 04/25/21 10:00 05/09/21 21:30 Levetiracetam 500 Mg/5 Ml Oral Liqd PO 750 mg BID MINOR Administration Lorazepam 1 mg 05/08/21 12:51 Lorazepam 2 Mg/Ml Vial IV Q6H PRN Agitation/SEIZURES Methylprednisolone Sodium Succinate 60 mg 04/28/21 06:00 05/10/21 05:38 Methylprednisolone Sod Succinate 40 Mg/1 Ml Inj IV 60 mg Q6H MINOR Administration Multi-Ingred Cream/Lotion/Oil/Oint 1 applic 04/21/21 15:46 Mineral Oil/Petrolatum, White Ophth Oint 3.5 Gm OU Q4HR PRN Dry Eye(s) Ondansetron HCl 4 mg 05/03/21 18:23 05/03/21 18:40 Ondansetron 4 Mg/2 Ml Inj IV 4 mg Q6H PRN Administration Nausea And Vomiting Polyethylene Glycol 17 gm 05/02/21 15:00 Polyethylene Glycol 3350 17 Gm Powder PO QDAY PRN Constipation Quetiapine Fumarate 25 mg 04/30/21 11:00 05/09/21 21:32 Quetiapine 25 Mg Tab PO 25 mg BID MINOR Administration Senna/Docusate Sodium 1 tab 04/26/21 22:00 05/09/21 21:32 Sennosides/Docusate Sodium 8.6/50 Mg Tab FEEDTUBE 1 tab QHS MINOR Administration Simple Syrup 15 ml 04/22/21 10:51 Simple Syrup 15 Ml FEEDTUBE PRN PRN Hypoglycemia Simple Syrup 30 ml 04/22/21 10:51 Simple Syrup 15 Ml FEEDTUBE PRN PRN Hypoglycemia Sodium Bicarbonate 325 mg 04/22/21 10:51 Sodium Bicarbonate 325 Mg Tab FEEDTUBE PRN PRN For Clogged Feeding Tube Sodium Chloride 10 ml 04/21/21 22:00 05/09/21 21:33 Sodium Chloride 0.9% 10 Ml Flush Syringe IV 10 ml BID MINOR Administration Sodium Chloride 10 ml 04/21/21 21:11 05/09/21 05:36 Sodium Chloride 0.9% 10 Ml Flush Syringe IV 10 ml PRN PRN Administration LINE FLUSH Sodium Polystyrene Sulfonate 60 gm 05/10/21 09:01 Sodium Polystyrene 15 Gm/60 Ml Oral Liqd [place] 05/10/21 09:02 ONCE ONE
--- NOTE | 2021-05-10 09:47 | Progress Note ---
Assessment and Plan 66 y/o female, intubated for airway protection, found to have severe ILD and no has refractory hypoxemia. 05/10/21: Continue supportive measures. Spoke with CM and family is awaiting another daughter that is flying in. Patient remains full code. Very very poor prognosis. Comatose, not on sedation. 05/09/21: Patient has now coded 3 times, most likely will pass today. Giving family some time but will readdress code status with them again this morning. Continue supportive measures, very very poor prognosis. 05/07/21: Duong off, levo down to 2 and vaso is stable. Oxygenation remains a huge problem. Long discussion with daughter yesterday about this. Not sure that she understands completely. Increased PEEP and TV to 20 and 375 respectively. Ok to restart tube feeds now that pressor requirement is down. Hold on lasix given worsening renal function and follow up renal recs. Continue to hold lovenox. Did respond to blood transfusion which may have helped oxygenation some. Continue IV steroids. Continue IV abx for GNR in blood. Very very guarded to poor prognosis. Halving ativan dose today. 05/06/21: Stop sedation for now. Added a third vasopressor in Phenylephrine, goal map is 65. Repeated CXR and patient does not have PTX. Will give bolus now and transfuse two units of PRBC's. Stopped Lovenox therapy. Would hold on lasix today. Stopped tube feeds. Triglyceride level still not done. Will repeat blood cultures as well. Will call daughter to update her on patient condition. Continue IV steroids. Overall prognosis is worsening. Guarded to poor. 05/05/21: Now with GNR bacteremia, most likely source is urine. Needs corral however as she had urinary retention and we need strict I/O. Will change corral out today. Agree with repeat lasix that renal has already ordered. Patient is on Cefepime and agree with stopping vanc. Await speciation and susceptibilities. She has had minimal to no output from OG so will restart tube feeds and free water at 200q4. Ok with continuing D5 and bumping up rate. Will start to wean FiO2 again tomorrow. Will need repeat blood cultures as well. Ordered triglyceride level but not done. Will order again 05/04/21: Appreciate renal help and agree with trial of lasix. Made adjustments to aprv to help with ventilation. Repeat gas in 1 hour. Getting lasix, but suggest repeat chemistry tonight around 2100. Maintain sedation to rass of -4. Wean FiO2 for sats >88%. ok with pH's of >7.2. Overall prognosis remains guarded. Will reach out to daughter in the am. Guarded prognosis. Will check triglyceride levels in the am. 05/03/21: Found to have ileus on ABD x-ray. Hold feeds and continue to suction. Repeat imaging in am. Need to address hyperkalemia with IV therapy given Ileus. Will do insulin and Kayexalate therapy. Suggest repeat K later this evening. Dropped FiO2 to 90, continue to wean for sats greater 88%. No lasix today. Will give a liter bolus of LR. May need an additional bolus. Unable to transduce CVP from picc. Continue IV steroids. Repeat ABG in am. Suspect that renal insufficiency will be transient but will monitor closely. Guarded prognosis. Need to hold on CT given instability. 05/02/21: Continue current level of sedation. Maintain current TV settings and repeat ABG in am. Goal is to get FiO2 at 60 or less in the next 24 hours. Once FiO2 less than 50% can start weaning PEEP. Repeat IV lasix today. Will likely need more free water. Continue steroids. Guarded prognosis. 05/01/21: Continue Ativan and Diprovan drip. Maintain low tidal volume and high PEEP and as long as pH is greater than 7.2. continue diuresis with IV lasix. Guarded prognosis. Will call daughter back today. Continue High dose IV steroids for now. 04/30/21: Will add Ativan drip and attempt to wean Precedex to off. Once adequate sedation achieved and BP stable, will give an additional dose of IV lasix today. Increased Free Water to 250q4. Ok with current Triglyceride level but will need to repeat. Prognosis remains guarded. Will call daughter to update her. 04/29/21: Continue low tidal volumes and high PEEPs. Lasix 40mg IV x1 today. Continue high dose steroids. Will start pulmicort and brovana therapy. Prognosis remains very very guarded. Follow up Triglyceride episode tomorrow. 04/26/21: Dropped tidal volume to 300. Keep PEEP at 16. Repeat ABG at 1230. Now that BP is better will give lasix 40 IV x1. Please assess again tomorrow and see if she would benefit from this. Pulse dose steroids through tomorrow and then solumedrol 60q6 starting on Thursday. Spoke with daughter over the phone who confirmed that mother was a smoker, heavy for 30+ years. Will start on BID pulmicort and brovana therapy. Overall prognosis discussed with daughter regarding possible need for trach and vent dependence. She asked about lung tx which I explained is not an option at this time. She seemed to express understanding but was mainly in shock as she had no idea her mother had ILD and per daughter, mother never saw a lung physician. Guarded to poor prognosis. My partner rounding over the weekend, I am back on Thursday. 04/25/21: Picc line today. Increase PEEP to 16. Dropped TV back to 375. pH of 7.2 and greater is acceptable. Will also pulse dose for the next 72 hours and then transition to q6 dosing on Thursday. Will discuss current clinical state with daughter. Serial ABG's today to make sure pH stays where it needs to be and hopeful improvement in oxygenation. Guarded prognosis. 04/24/21: Will drop TV to 375 and Increase PEEP to 14. Will repeat ABG in one hour. If no improvements, may need to consider IV steroids for 48-72 hours. Exact etiology of chronic lung disease is not known. Would prefer not to give sedation vacation given high levels of oxygen required as agitation could make things worse. Right now, unable to determine current neuro state. Lungs are very very sick and even though this is a chronic issue, now with her drive diminished from the ventilator, most likely will be a difficult wean. Will discuss with family soon what the next steps could potentially be but would need to assess mental state first. Guarded prognosis. 1. Increase PEEP and repeat ABG 2. May need to consider IV steroids 3. Follow up neuro recs 4. Guarded prognosis. cCT 31 minutes. Subjective Date of service: 05/10/21 Principal diagnosis: Acute kidney injury, rhabdomyolysis Interval history: Clinical state is unchanged. Family continues Full Code status. Patient is unresponsive not on any sedation. Objective Vital Signs - 12hr 05/09/21 05/09/21 05/09/21 21:45 22:00 22:15 Temperature Pulse Rate 119 H 119 H 118 H Pulse Rate [ Anterior Bilateral] Pulse Rate [ From Monitor] Respiratory 26 H 28 H 27 H Rate Respiratory Rate [Anterior Bilateral] Blood Pressure 139/58 141/55 138/49 O2 Sat by Pulse 72 L 74 L 70 L Oximetry 05/09/21 05/09/21 05/09/21 22:31 22:45 23:01 Temperature Pulse Rate 117 H 116 H 116 H Pulse Rate [ Anterior Bilateral] Pulse Rate [ From Monitor] Respiratory 26 H 26 H 25 H Rate Respiratory Rate [Anterior Bilateral] Blood Pressure 129/27 141/75 134/72 O2 Sat by Pulse 74 L 71 L Oximetry 05/09/21 05/09/21 05/09/21 23:13 23:15 23:30 Temperature Pulse Rate 116 H 116 H 115 H Pulse Rate [ Anterior Bilateral] Pulse Rate [ From Monitor] Respiratory 26 H 26 H 27 H Rate Respiratory Rate [Anterior Bilateral] Blood Pressure 134/72 110/57 125/59 O2 Sat by Pulse 70 L 73 L 74 L Oximetry 05/09/21 05/09/21 05/10/21 23:45 23:50 00:00 Temperature 97.8 F Pulse Rate 115 H 115 H Pulse Rate [ Anterior Bilateral] Pulse Rate [ 119 H From Monitor] Respiratory 25 H 25 H Rate Respiratory Rate [Anterior Bilateral] Blood Pressure 109/80 125/58 O2 Sat by Pulse 69 L 76 L Oximetry 05/10/21 05/10/21 05/10/21 00:15 00:16 00:30 Temperature Pulse Rate 115 H 115 H 115 H Pulse Rate [ Anterior Bilateral] Pulse Rate [ From Monitor] Respiratory 26 H 27 H Rate Respiratory Rate [Anterior Bilateral] Blood Pressure 111/60 111/60 117/59 O2 Sat by Pulse 72 L 72 L 75 L Oximetry 05/10/21 05/10/21 05/10/21 00:45 01:00 01:15 Temperature Pulse Rate 114 H 114 H 113 H Pulse Rate [ Anterior Bilateral] Pulse Rate [ From Monitor] Respiratory 27 H 25 H 26 H Rate Respiratory Rate [Anterior Bilateral] Blood Pressure 127/61 127/61 144/57 O2 Sat by Pulse 73 L 74 L Oximetry 05/10/21 05/10/21 05/10/21 01:31 01:45 02:00 Temperature Pulse Rate 113 H 113 H 113 H Pulse Rate [ Anterior Bilateral] Pulse Rate [ From Monitor] Respiratory 26 H 24 25 H Rate Respiratory Rate [Anterior Bilateral] Blood Pressure 144/43 144/43 124/55 O2 Sat by Pulse 68 L 65 L Oximetry 05/10/21 05/10/21 05/10/21 02:15 02:30 02:45 Temperature Pulse Rate 113 H 112 H 113 H Pulse Rate [ Anterior Bilateral] Pulse Rate [ From Monitor] Respiratory 25 H 25 H 26 H Rate Respiratory Rate [Anterior Bilateral] Blood Pressure 120/43 120/52 115/48 O2 Sat by Pulse 75 L 68 L 78 L Oximetry 05/10/21 05/10/21 05/10/21 03:00 03:15 03:31 Temperature Pulse Rate 112 H 113 H 112 H Pulse Rate [ Anterior Bilateral] Pulse Rate [ From Monitor] Respiratory 26 H 25 H 25 H Rate Respiratory Rate [Anterior Bilateral] Blood Pressure 117/48 101/38 117/78 O2 Sat by Pulse 77 L 58 L Oximetry 05/10/21 05/10/21 05/10/21 03:37 03:45 04:00 Temperature 97.6 F Pulse Rate 112 H 112 H Pulse Rate [ Anterior Bilateral] Pulse Rate [ 115 H From Monitor] Respiratory 25 H 25 H Rate Respiratory Rate [Anterior Bilateral] Blood Pressure 114/67 120/74 O2 Sat by Pulse 83 L Oximetry 05/10/21 05/10/21 05/10/21 04:15 04:30 04:31 Temperature Pulse Rate 112 H 112 H 112 H Pulse Rate [ Anterior Bilateral] Pulse Rate [ From Monitor] Respiratory 25 H 25 H Rate Respiratory Rate [Anterior Bilateral] Blood Pressure 120/74 122/64 122/64 O2 Sat by Pulse 0 L Oximetry 05/10/21 05/10/21 05/10/21 04:45 05:01 05:15 Temperature Pulse Rate 112 H 111 H 109 H Pulse Rate [ Anterior Bilateral] Pulse Rate [ From Monitor] Respiratory 25 H 25 H 25 H Rate Respiratory Rate [Anterior Bilateral] Blood Pressure 119/56 115/68 114/58 O2 Sat by Pulse 78 L 94 Oximetry 05/10/21 05/10/21 05/10/21 05:31 05:45 06:01 Temperature Pulse Rate 110 H 110 H 110 H Pulse Rate [ Anterior Bilateral] Pulse Rate [ From Monitor] Respiratory 25 H 25 H 26 H Rate Respiratory Rate [Anterior Bilateral] Blood Pressure 114/58 114/58 114/58 O2 Sat by Pulse 66 L Oximetry 05/10/21 05/10/21 08:22 08:30 Temperature Pulse Rate 108 H Pulse Rate [ 107 H Anterior Bilateral] Pulse Rate [ From Monitor] Respiratory Rate Respiratory 30 H Rate [Anterior Bilateral] Blood Pressure 113/81 O2 Sat by Pulse 0 L Oximetry Constitutional: no acute distress, other (Sedated) Ascultation: Bilateral: rales, rhonchi CBC and BMP: 05/10/21 04:51 05/10/21 04:51 ABG, PT/INR, D-dimer: ABG ABG pH 7.230 (7.320-7.450) L 05/08/21 03:03 POC ABG pCO2 87.9 mmHg (32.0-48.0) H 05/08/21 03:03 ABG pCO2 46.0 mm Hg 04/22/21 17:30 POC ABG pO2 58.3 mmHg (83-108) L 05/08/21 03:03 ABG pO2 99.6 mm Hg (80.0-90.0) H 04/22/21 17:30 POC ABG HCO3 36.0 05/08/21 03:03 ABG O2 Saturation 85.9 (0-100) 05/08/21 03:03 PT/INR, D-dimer PT 29.2 Sec. (12.2-14.9) H 05/09/21 15:30 INR 2.74 (0.87-1.13) H 05/09/21 15:30 D-Dimer 1522.26 ng/mlDDU (0-234) H 04/21/21 16:30 Abnormal lab findings: Abnormal Labs 04/21/21 04/21/21 04/21/21 14:40 15:42 16:30 WBC RBC Hgb Hct MCV RDW Plt Count Lymph % (Auto) [place] % (Auto) Lymph # (Auto) Seg Neutrophils % Seg Neuts % (Manual) Lymphocytes % (Manual) Monocytes % (Manual) Nucleated RBC % Seg Neutrophils # Man Lymphocytes # (Manual) PT INR APTT D-Dimer 1522.26 H Heparin Anti-Xa Level ABG pH POC ABG pCO2 POC ABG pO2 45.5 L 69.9 L ABG pO2 ABG Hemoglobin ABG Oxyhemoglobin 78.6 L 90.2 L ABG Sodium ABG Potassium ABG Chloride 111.0 H ABG Glucose 156 H 148 H Carboxyhemoglobin Sodium Potassium Chloride Carbon Dioxide BUN Creatinine Glucose POC Glucose Lactic Acid Calcium Phosphorus Magnesium AST ALT Alkaline Phosphatase Total Creatine Kinase CK-MB (CK-2) Troponin T Total Protein Albumin Triglycerides Cholesterol LDL Cholesterol Direct HDL Cholesterol TSH Arterial Blood Glucose 156 H 148 H Arterial Blood Ionized Calcium 4.5 L Urine WBC (Auto) Urine Creatinine Urine Total Protein Crossmatch 04/21/21 04/21/21 04/22/21 16:32 16:32 00:32 WBC RBC 5.22 H Hgb 16.2 H 14.8 H Hct 48.6 H 44.4 H MCV RDW 15.8 H Plt Count Lymph % (Auto) [place] % (Auto) Lymph # (Auto) Seg Neutrophils % Seg Neuts % (Manual) 79.0 H Lymphocytes % (Manual) 13.0 L Monocytes % (Manual) 8.0 H Nucleated RBC % Seg Neutrophils # Man Lymphocytes # (Manual) 1.1 L PT INR APTT D-Dimer Heparin Anti-Xa Level ABG pH POC ABG pCO2 POC ABG pO2 ABG pO2 ABG Hemoglobin ABG Oxyhemoglobin ABG Sodium ABG Potassium ABG Chloride ABG Glucose Carboxyhemoglobin Sodium Potassium Chloride Carbon Dioxide 21 L BUN 24 H Creatinine 1.3 H Glucose 130 H POC Glucose Lactic Acid Calcium Phosphorus Magnesium AST 129 H ALT 61 H Alkaline Phosphatase Total Creatine Kinase 3055 H CK-MB (CK-2) 22.4 H Troponin T 0.055 H Total Protein Albumin 3.6 L Triglycerides 235 H Cholesterol 220 H LDL Cholesterol Direct 142 H HDL Cholesterol 36 L TSH Arterial Blood Glucose Arterial Blood Ionized Calcium Urine WBC (Auto) Urine Creatinine Urine Total Protein Crossmatch 04/22/21 04/22/21 04/22/21 03:27 05:29 05:29 WBC RBC Hgb 15.4 H Hct 45.8 H MCV RDW 16.0 H Plt Count Lymph % (Auto) 12.0 L [place] % (Auto) 8.0 H Lymph # (Auto) 1.1 L Seg Neutrophils % 76.3 H Seg Neuts % (Manual) Lymphocytes % (Manual) Monocytes % (Manual) Nucleated RBC % Seg Neutrophils # Man Lymphocytes # (Manual) PT INR APTT D-Dimer Heparin Anti-Xa Level ABG pH POC ABG pCO2 POC ABG pO2 ABG pO2 ABG Hemoglobin ABG Oxyhemoglobin ABG Sodium ABG Potassium 4.7 H ABG Chloride 109.0 H ABG Glucose 155 H Carboxyhemoglobin 0.4 L Sodium Potassium 6.3 H* D Chloride Carbon Dioxide BUN 26 H Creatinine Glucose 134 H POC Glucose Lactic Acid Calcium Phosphorus Magnesium AST 123 H ALT Alkaline Phosphatase Total Creatine Kinase CK-MB (CK-2) Troponin T Total Protein Albumin 3.6 L Triglycerides Cholesterol LDL Cholesterol Direct HDL Cholesterol TSH Arterial Blood Glucose 155 H Arterial Blood Ionized Calcium Urine WBC (Auto) Urine Creatinine Urine Total Protein Crossmatch 04/22/21 04/22/21 04/22/21 13:03 13:25 17:30 WBC RBC Hgb Hct MCV RDW Plt Count Lymph % (Auto) [place] % (Auto) Lymph # (Auto) Seg Neutrophils % Seg Neuts % (Manual) Lymphocytes % (Manual) Monocytes % (Manual) Nucleated RBC % Seg Neutrophils # Man Lymphocytes # (Manual) PT INR APTT D-Dimer Heparin Anti-Xa Level ABG pH 7.343 L POC ABG pCO2 POC ABG pO2 ABG pO2 99.6 H ABG Hemoglobin ABG Oxyhemoglobin ABG Sodium ABG Potassium ABG Chloride ABG Glucose Carboxyhemoglobin Sodium Potassium Chloride Carbon Dioxide BUN Creatinine Glucose POC Glucose Lactic Acid Calcium Phosphorus Magnesium AST ALT Alkaline Phosphatase Total Creatine Kinase 2322 H CK-MB (CK-2) Troponin T Total Protein Albumin Triglycerides Cholesterol LDL Cholesterol Direct HDL Cholesterol TSH Arterial Blood Glucose Arterial Blood Ionized Calcium Urine WBC (Auto) Urine Creatinine 138.9 H Urine Total Protein 86 H Crossmatch 04/22/21 04/23/21 04/23/21 20:00 04:42 09:53 WBC RBC Hgb Hct MCV RDW Plt Count Lymph % (Auto) [place] % (Auto) Lymph # (Auto) Seg Neutrophils % Seg Neuts % (Manual) Lymphocytes % (Manual) Monocytes % (Manual) Nucleated RBC % Seg Neutrophils # Man Lymphocytes # (Manual) PT INR APTT D-Dimer Heparin Anti-Xa Level 2.00 H < 0.10 L ABG pH POC ABG pCO2 POC ABG pO2 ABG pO2 ABG Hemoglobin ABG Oxyhemoglobin 83.2 L ABG Sodium ABG Potassium ABG Chloride 113.0 H ABG Glucose 107 H Carboxyhemoglobin Sodium Potassium Chloride Carbon Dioxide BUN Creatinine Glucose POC Glucose Lactic Acid Calcium Phosphorus Magnesium AST ALT Alkaline Phosphatase Total Creatine Kinase CK-MB (CK-2) Troponin T Total Protein Albumin Triglycerides Cholesterol LDL Cholesterol Direct HDL Cholesterol TSH Arterial Blood Glucose 107 H Arterial Blood Ionized Calcium Urine WBC (Auto) Urine Creatinine Urine Total Protein Crossmatch 04/23/21 04/23/21 04/23/21 14:21 14:21 15:11 WBC RBC Hgb Hct MCV RDW 16.3 H Plt Count Lymph % (Auto) [place] % (Auto) Lymph # (Auto) Seg Neutrophils % Seg Neuts % (Manual) Lymphocytes % (Manual) Monocytes % (Manual) Nucleated RBC % Seg Neutrophils # Man Lymphocytes # (Manual) PT INR APTT D-Dimer Heparin Anti-Xa Level ABG pH POC ABG pCO2 POC ABG pO2 68.6 L ABG pO2 ABG Hemoglobin ABG Oxyhemoglobin 91.3 L ABG Sodium ABG Potassium ABG Chloride 113.0 H ABG Glucose 100 H Carboxyhemoglobin Sodium Potassium Chloride 113.1 H Carbon Dioxide 20 L BUN 18 H Creatinine Glucose POC Glucose Lactic Acid Calcium 8.2 L Phosphorus Magnesium AST 59 H ALT Alkaline Phosphatase Total Creatine Kinase 681 H CK-MB (CK-2) Troponin T Total Protein 5.5 L Albumin 2.3 L Triglycerides Cholesterol LDL Cholesterol Direct HDL Cholesterol TSH Arterial Blood Glucose 100 H Arterial Blood Ionized Calcium Urine WBC (Auto) Urine Creatinine Urine Total Protein Crossmatch 04/23/21 04/24/21 04/24/21 18:30 04:00 05:37 WBC RBC Hgb Hct MCV RDW Plt Count Lymph % (Auto) [place] % (Auto) Lymph # (Auto) Seg Neutrophils % Seg Neuts % (Manual) Lymphocytes % (Manual) Monocytes % (Manual) Nucleated RBC % Seg Neutrophils # Man Lymphocytes # (Manual) PT INR APTT D-Dimer Heparin Anti-Xa Level 1.84 H ABG pH POC ABG pCO2 POC ABG pO2 51.9 L ABG pO2 ABG Hemoglobin ABG Oxyhemoglobin 84.9 L ABG Sodium ABG Potassium ABG Chloride 112.0 H ABG Glucose 138 H Carboxyhemoglobin Sodium Potassium Chloride Carbon Dioxide BUN Creatinine Glucose POC Glucose 108 H Lactic Acid Calcium Phosphorus Magnesium AST ALT Alkaline Phosphatase Total Creatine Kinase CK-MB (CK-2) Troponin T Total Protein Albumin Triglycerides Cholesterol LDL Cholesterol Direct HDL Cholesterol TSH Arterial Blood Glucose 138 H Arterial Blood Ionized Calcium Urine WBC (Auto) Urine Creatinine Urine Total Protein Crossmatch 04/24/21 04/24/21 04/24/21 10:00 10:00 10:14 WBC RBC Hgb Hct MCV RDW 16.0 H Plt Count Lymph % (Auto) [place] % (Auto) Lymph # (Auto) Seg Neutrophils % Seg Neuts % (Manual) Lymphocytes % (Manual) Monocytes % (Manual) Nucleated RBC % Seg Neutrophils # Man Lymphocytes # (Manual) PT INR APTT D-Dimer Heparin Anti-Xa Level 0.84 H ABG pH POC ABG pCO2 POC ABG pO2 ABG pO2 ABG Hemoglobin ABG Oxyhemoglobin ABG Sodium ABG Potassium ABG Chloride ABG Glucose Carboxyhemoglobin Sodium Potassium Chloride 109.9 H Carbon Dioxide BUN Creatinine Glucose 118 H POC Glucose Lactic Acid Calcium Phosphorus 2.00 L Magnesium 2.40 H AST 59 H ALT Alkaline Phosphatase Total Creatine Kinase 396 H CK-MB (CK-2) Troponin T Total Protein 5.5 L Albumin 2.4 L Triglycerides Cholesterol LDL Cholesterol Direct HDL Cholesterol TSH Arterial Blood Glucose Arterial Blood Ionized Calcium Urine WBC (Auto) Urine Creatinine Urine Total Protein Crossmatch 04/24/21 04/24/21 04/24/21 11:14 12:00 15:23 WBC RBC Hgb Hct MCV RDW Plt Count Lymph % (Auto) [place] % (Auto) Lymph # (Auto) Seg Neutrophils % Seg Neuts % (Manual) Lymphocytes % (Manual) Monocytes % (Manual) Nucleated RBC % Seg Neutrophils # Man Lymphocytes # (Manual) PT INR APTT D-Dimer Heparin Anti-Xa Level ABG pH 7.287 L POC ABG pCO2 54.3 H POC ABG pO2 58.2 L 67.5 L ABG pO2 ABG Hemoglobin ABG Oxyhemoglobin 88.3 L 89.9 L ABG Sodium ABG Potassium ABG Chloride 111.0 H 110.0 H ABG Glucose 117 H 126 H Carboxyhemoglobin 0.3 L Sodium Potassium Chloride Carbon Dioxide BUN Creatinine Glucose POC Glucose 112 H Lactic Acid Calcium Phosphorus Magnesium AST ALT Alkaline Phosphatase Total Creatine Kinase CK-MB (CK-2) Troponin T Total Protein Albumin Triglycerides Cholesterol LDL Cholesterol Direct HDL Cholesterol TSH Arterial Blood Glucose 117 H 126 H Arterial Blood Ionized Calcium Urine WBC (Auto) Urine Creatinine Urine Total Protein Crossmatch 04/24/21 04/24/21 04/24/21 17:58 18:00 22:56 WBC RBC Hgb Hct MCV RDW Plt Count Lymph % (Auto) [place] % (Auto) Lymph # (Auto) Seg Neutrophils % Seg Neuts % (Manual) Lymphocytes % (Manual) Monocytes % (Manual) Nucleated RBC % Seg Neutrophils # Man Lymphocytes # (Manual) PT INR APTT D-Dimer Heparin Anti-Xa Level ABG pH POC ABG pCO2 POC ABG pO2 53.3 L ABG pO2 ABG Hemoglobin ABG Oxyhemoglobin 86.2 L ABG Sodium ABG Potassium ABG Chloride 111.0 H ABG Glucose 115 H Carboxyhemoglobin 0.4 L Sodium Potassium Chloride Carbon Dioxide BUN Creatinine Glucose POC Glucose 106 H 131 H Lactic Acid Calcium Phosphorus Magnesium AST ALT Alkaline Phosphatase Total Creatine Kinase CK-MB (CK-2) Troponin T Total Protein Albumin Triglycerides Cholesterol LDL Cholesterol Direct HDL Cholesterol TSH Arterial Blood Glucose 115 H Arterial Blood Ionized Calcium Urine WBC (Auto) Urine Creatinine Urine Total Protein Crossmatch 04/25/21 04/25/21 04/25/21 04:00 07:42 10:50 WBC RBC Hgb Hct MCV RDW Plt Count Lymph % (Auto) [place] % (Auto) Lymph # (Auto) Seg Neutrophils % Seg Neuts % (Manual) Lymphocytes % (Manual) Monocytes % (Manual) Nucleated RBC % Seg Neutrophils # Man Lymphocytes # (Manual) PT INR APTT D-Dimer Heparin Anti-Xa Level ABG pH POC ABG pCO2 POC ABG pO2 48.5 L 56.5 L ABG pO2 ABG Hemoglobin 10.6 L 10.4 L ABG Oxyhemoglobin 79.4 L 86.8 L ABG Sodium ABG Potassium ABG Chloride 111.0 H 112.0 H ABG Glucose 115 H 124 H Carboxyhemoglobin 0.2 L Sodium 146 H Potassium Chloride 111.3 H Carbon Dioxide BUN Creatinine Glucose 128 H POC Glucose Lactic Acid Calcium Phosphorus Magnesium AST ALT Alkaline Phosphatase Total Creatine Kinase CK-MB (CK-2) Troponin T Total Protein Albumin Triglycerides Cholesterol LDL Cholesterol Direct HDL Cholesterol TSH Arterial Blood Glucose 115 H 124 H Arterial Blood Ionized Calcium Urine WBC (Auto) Urine Creatinine Urine Total Protein Crossmatch 04/25/21 04/25/21 04/25/21 11:12 13:55 16:05 WBC RBC Hgb Hct MCV RDW Plt Count Lymph % (Auto) [place] % (Auto) Lymph # (Auto) Seg Neutrophils % Seg Neuts % (Manual) Lymphocytes % (Manual) Monocytes % (Manual) Nucleated RBC % Seg Neutrophils # Man Lymphocytes # (Manual) PT INR APTT D-Dimer Heparin Anti-Xa Level ABG pH POC ABG pCO2 POC ABG pO2 46.7 L 53.7 L ABG pO2 ABG Hemoglobin 10.7 L 11.1 L ABG Oxyhemoglobin 81.3 L 85.6 L ABG Sodium ABG Potassium ABG Chloride 111.0 H 111.0 H ABG Glucose 158 H 185 H Carboxyhemoglobin 0.4 L Sodium Potassium Chloride Carbon Dioxide BUN Creatinine Glucose POC Glucose 136 H Lactic Acid Calcium Phosphorus Magnesium AST ALT Alkaline Phosphatase Total Creatine Kinase CK-MB (CK-2) Troponin T Total Protein Albumin Triglycerides Cholesterol LDL Cholesterol Direct HDL Cholesterol TSH Arterial Blood Glucose 158 H 185 H Arterial Blood Ionized Calcium Urine WBC (Auto) Urine Creatinine Urine Total Protein Crossmatch 04/25/21 04/25/21 04/26/21 17:39 23:18 05:06 WBC RBC Hgb Hct MCV RDW Plt Count Lymph % (Auto) [place] % (Auto) Lymph # (Auto) Seg Neutrophils % Seg Neuts % (Manual) Lymphocytes % (Manual) Monocytes % (Manual) Nucleated RBC % Seg Neutrophils # Man Lymphocytes # (Manual) PT INR APTT D-Dimer Heparin Anti-Xa Level ABG pH POC ABG pCO2 POC ABG pO2 ABG pO2 ABG Hemoglobin ABG Oxyhemoglobin ABG Sodium ABG Potassium ABG Chloride ABG Glucose Carboxyhemoglobin Sodium Potassium Chloride Carbon Dioxide BUN Creatinine Glucose POC Glucose 155 H 158 H 134 H Lactic Acid Calcium Phosphorus Magnesium AST ALT Alkaline Phosphatase Total Creatine Kinase CK-MB (CK-2) Troponin T Total Protein Albumin Triglycerides Cholesterol LDL Cholesterol Direct HDL Cholesterol TSH Arterial Blood Glucose Arterial Blood Ionized Calcium Urine WBC (Auto) Urine Creatinine Urine Total Protein Crossmatch 04/26/21 04/26/21 04/26/21 05:22 12:20 13:16 WBC RBC Hgb Hct MCV RDW Plt Count Lymph % (Auto) [place] % (Auto) Lymph # (Auto) Seg Neutrophils % Seg Neuts % (Manual) Lymphocytes % (Manual) Monocytes % (Manual) Nucleated RBC % Seg Neutrophils # Man Lymphocytes # (Manual) PT INR APTT D-Dimer Heparin Anti-Xa Level ABG pH POC ABG pCO2 POC ABG pO2 52.2 L 53.9 L ABG pO2 ABG Hemoglobin 10.9 L 11.5 L ABG Oxyhemoglobin 86.5 L 86.4 L ABG Sodium 145.8 H ABG Potassium 4.6 H ABG Chloride 114.0 H 112.0 H ABG Glucose 144 H 162 H Carboxyhemoglobin 0.4 L 0.4 L Sodium Potassium Chloride Carbon Dioxide BUN Creatinine Glucose POC Glucose 160 H Lactic Acid Calcium Phosphorus Magnesium AST ALT Alkaline Phosphatase Total Creatine Kinase CK-MB (CK-2) Troponin T Total Protein Albumin Triglycerides Cholesterol LDL Cholesterol Direct HDL Cholesterol TSH Arterial Blood Glucose 144 H 162 H Arterial Blood Ionized Calcium Urine WBC (Auto) Urine Creatinine Urine Total Protein Crossmatch 04/26/21 04/26/21 04/26/21 14:09 18:42 23:30 WBC RBC Hgb Hct MCV RDW Plt Count Lymph % (Auto) [place] % (Auto) Lymph # (Auto) Seg Neutrophils % Seg Neuts % (Manual) Lymphocytes % (Manual) Monocytes % (Manual) Nucleated RBC % Seg Neutrophils # Man Lymphocytes # (Manual) PT INR APTT D-Dimer Heparin Anti-Xa Level ABG pH POC ABG pCO2 POC ABG pO2 55.3 L ABG pO2 ABG Hemoglobin 11.6 L ABG Oxyhemoglobin 87.2 L ABG Sodium 146.6 H ABG Potassium ABG Chloride 111.0 H ABG Glucose 165 H Carboxyhemoglobin Sodium Potassium Chloride Carbon Dioxide BUN Creatinine Glucose POC Glucose 161 H 163 H Lactic Acid Calcium Phosphorus Magnesium AST ALT Alkaline Phosphatase Total Creatine Kinase CK-MB (CK-2) Troponin T Total Protein Albumin Triglycerides Cholesterol LDL Cholesterol Direct HDL Cholesterol TSH Arterial Blood Glucose 165 H Arterial Blood Ionized Calcium Urine WBC (Auto) Urine Creatinine Urine Total Protein Crossmatch 04/27/21 04/27/21 04/27/21 03:51 05:14 06:25 WBC RBC 3.64 L Hgb Hct MCV RDW 16.2 H Plt Count Lymph % (Auto) [place] % (Auto) Lymph # (Auto) Seg Neutrophils % Seg Neuts % (Manual) Lymphocytes % (Manual) Monocytes % (Manual) Nucleated RBC % Seg Neutrophils # Man Lymphocytes # (Manual) PT INR APTT D-Dimer Heparin Anti-Xa Level ABG pH POC ABG pCO2 52.9 H POC ABG pO2 60.8 L ABG pO2 ABG Hemoglobin 11.9 L ABG Oxyhemoglobin 87.9 L ABG Sodium 147.8 H ABG Potassium ABG Chloride 111.0 H ABG Glucose 183 H Carboxyhemoglobin Sodium Potassium Chloride Carbon Dioxide BUN Creatinine Glucose POC Glucose 165 H Lactic Acid Calcium Phosphorus Magnesium AST ALT Alkaline Phosphatase Total Creatine Kinase CK-MB (CK-2) Troponin T Total Protein Albumin Triglycerides Cholesterol LDL Cholesterol Direct HDL Cholesterol TSH Arterial Blood Glucose 183 H Arterial Blood Ionized Calcium Urine WBC (Auto) Urine Creatinine Urine Total Protein Crossmatch 04/27/21 04/27/21 04/27/21 06:25 11:45 17:41 WBC RBC Hgb Hct MCV RDW Plt Count Lymph % (Auto) [place] % (Auto) Lymph # (Auto) Seg Neutrophils % Seg Neuts % (Manual) Lymphocytes % (Manual) Monocytes % (Manual) Nucleated RBC % Seg Neutrophils # Man Lymphocytes # (Manual) PT INR APTT D-Dimer Heparin Anti-Xa Level ABG pH POC ABG pCO2 POC ABG pO2 ABG pO2 ABG Hemoglobin ABG Oxyhemoglobin ABG Sodium ABG Potassium ABG Chloride ABG Glucose Carboxyhemoglobin Sodium 148 H Potassium 5.1 H D Chloride 109.0 H Carbon Dioxide BUN 35 H Creatinine Glucose 170 H POC Glucose 184 H 172 H Lactic Acid Calcium Phosphorus Magnesium AST 48 H ALT Alkaline Phosphatase Total Creatine Kinase CK-MB (CK-2) Troponin T Total Protein Albumin 2.4 L Triglycerides Cholesterol LDL Cholesterol Direct HDL Cholesterol TSH Arterial Blood Glucose Arterial Blood Ionized Calcium Urine WBC (Auto) Urine Creatinine Urine Total Protein Crossmatch 04/27/21 04/28/21 04/28/21 23:16 03:23 04:00 WBC RBC Hgb Hct MCV RDW Plt Count Lymph % (Auto) [place] % (Auto) Lymph # (Auto) Seg Neutrophils % Seg Neuts % (Manual) Lymphocytes % (Manual) Monocytes % (Manual) Nucleated RBC % Seg Neutrophils # Man Lymphocytes # (Manual) PT INR APTT D-Dimer Heparin Anti-Xa Level ABG pH POC ABG pCO2 55.9 H POC ABG pO2 76.2 L ABG pO2 ABG Hemoglobin 11.5 L ABG Oxyhemoglobin 92.9 L ABG Sodium 153.3 H ABG Potassium 3.2 L ABG Chloride 115.0 H ABG Glucose 154 H Carboxyhemoglobin Sodium 154 H Potassium 3.5 L D Chloride 114.4 H Carbon Dioxide 31 H BUN 32 H Creatinine Glucose 148 H POC Glucose 142 H Lactic Acid Calcium Phosphorus Magnesium AST ALT Alkaline Phosphatase Total Creatine Kinase CK-MB (CK-2) Troponin T Total Protein 6.0 L Albumin 2.4 L Triglycerides Cholesterol LDL Cholesterol Direct HDL Cholesterol TSH Arterial Blood Glucose 154 H Arterial Blood Ionized Calcium Urine WBC (Auto) Urine Creatinine Urine Total Protein Crossmatch 04/28/21 04/28/21 04/28/21 04:45 06:05 11:57 WBC RBC Hgb Hct MCV RDW 16.1 H Plt Count Lymph % (Auto) [place] % (Auto) Lymph # (Auto) Seg Neutrophils % Seg Neuts % (Manual) Lymphocytes % (Manual) Monocytes % (Manual) Nucleated RBC % Seg Neutrophils # Man Lymphocytes # (Manual) PT INR APTT D-Dimer Heparin Anti-Xa Level ABG pH POC ABG pCO2 POC ABG pO2 ABG pO2 ABG Hemoglobin ABG Oxyhemoglobin ABG Sodium ABG Potassium ABG Chloride ABG Glucose Carboxyhemoglobin Sodium Potassium Chloride Carbon Dioxide BUN Creatinine Glucose POC Glucose 153 H 109 H Lactic Acid Calcium Phosphorus Magnesium AST ALT Alkaline Phosphatase Total Creatine Kinase CK-MB (CK-2) Troponin T Total Protein Albumin Triglycerides Cholesterol LDL Cholesterol Direct HDL Cholesterol TSH Arterial Blood Glucose Arterial Blood Ionized Calcium Urine WBC (Auto) Urine Creatinine Urine Total Protein Crossmatch 04/28/21 04/28/21 04/29/21 17:39 23:58 03:51 WBC RBC Hgb Hct MCV RDW Plt Count Lymph % (Auto) [place] % (Auto) Lymph # (Auto) Seg Neutrophils % Seg Neuts % (Manual) Lymphocytes % (Manual) Monocytes % (Manual) Nucleated RBC % Seg Neutrophils # Man Lymphocytes # (Manual) PT INR APTT D-Dimer Heparin Anti-Xa Level ABG pH POC ABG pCO2 54.7 H POC ABG pO2 68.6 L ABG pO2 ABG Hemoglobin 11.9 L ABG Oxyhemoglobin 91.7 L ABG Sodium 148.2 H ABG Potassium ABG Chloride 112.0 H ABG Glucose 136 H Carboxyhemoglobin Sodium Potassium Chloride Carbon Dioxide BUN Creatinine Glucose POC Glucose 145 H 164 H Lactic Acid Calcium Phosphorus Magnesium AST ALT Alkaline Phosphatase Total Creatine Kinase CK-MB (CK-2) Troponin T Total Protein Albumin Triglycerides Cholesterol LDL Cholesterol Direct HDL Cholesterol TSH Arterial Blood Glucose 136 H Arterial Blood Ionized Calcium Urine WBC (Auto) Urine Creatinine Urine Total Protein Crossmatch 04/29/21 04/29/21 04/29/21 05:35 05:55 11:29 WBC RBC Hgb Hct MCV RDW Plt Count Lymph % (Auto) [place] % (Auto) Lymph # (Auto) Seg Neutrophils % Seg Neuts % (Manual) Lymphocytes % (Manual) Monocytes % (Manual) Nucleated RBC % Seg Neutrophils # Man Lymphocytes # (Manual) PT INR APTT D-Dimer Heparin Anti-Xa Level ABG pH POC ABG pCO2 POC ABG pO2 ABG pO2 ABG Hemoglobin ABG Oxyhemoglobin ABG Sodium ABG Potassium ABG Chloride ABG Glucose Carboxyhemoglobin Sodium 149 H Potassium Chloride 110.9 H Carbon Dioxide BUN 34 H Creatinine Glucose 136 H POC Glucose 128 H 206 H Lactic Acid Calcium Phosphorus Magnesium AST ALT Alkaline Phosphatase Total Creatine Kinase CK-MB (CK-2) Troponin T Total Protein Albumin Triglycerides Cholesterol LDL Cholesterol Direct HDL Cholesterol TSH Arterial Blood Glucose Arterial Blood Ionized Calcium Urine WBC (Auto) Urine Creatinine Urine Total Protein Crossmatch 04/29/21 04/29/21 04/30/21 18:04 23:42 00:55 WBC RBC Hgb Hct MCV RDW Plt Count Lymph % (Auto) [place] % (Auto) Lymph # (Auto) Seg Neutrophils % Seg Neuts % (Manual) Lymphocytes % (Manual) Monocytes % (Manual) Nucleated RBC % Seg Neutrophils # Man Lymphocytes # (Manual) PT INR APTT D-Dimer Heparin Anti-Xa Level ABG pH POC ABG pCO2 POC ABG pO2 ABG pO2 ABG Hemoglobin ABG Oxyhemoglobin ABG Sodium ABG Potassium ABG Chloride ABG Glucose Carboxyhemoglobin Sodium Potassium 5.1 H D Chloride Carbon Dioxide BUN Creatinine Glucose POC Glucose 146 H 146 H Lactic Acid Calcium Phosphorus Magnesium AST ALT Alkaline Phosphatase Total Creatine Kinase CK-MB (CK-2) Troponin T Total Protein Albumin Triglycerides Cholesterol LDL Cholesterol Direct HDL Cholesterol TSH Arterial Blood Glucose Arterial Blood Ionized Calcium Urine WBC (Auto) Urine Creatinine Urine Total Protein Crossmatch 04/30/21 04/30/21 04/30/21 05:00 05:34 07:40 WBC RBC Hgb Hct MCV RDW Plt Count Lymph % (Auto) [place] % (Auto) Lymph # (Auto) Seg Neutrophils % Seg Neuts % (Manual) Lymphocytes % (Manual) Monocytes % (Manual) Nucleated RBC % Seg Neutrophils # Man Lymphocytes # (Manual) PT INR APTT D-Dimer Heparin Anti-Xa Level ABG pH POC ABG pCO2 55.6 H POC ABG pO2 62.4 L ABG pO2 ABG Hemoglobin ABG Oxyhemoglobin 90.1 L ABG Sodium 146.8 H ABG Potassium ABG Chloride 109.0 H ABG Glucose 124 H Carboxyhemoglobin Sodium 149 H Potassium Chloride 109.5 H Carbon Dioxide 35 H BUN 33 H Creatinine Glucose 126 H POC Glucose 122 H Lactic Acid Calcium Phosphorus Magnesium 2.60 H AST ALT Alkaline Phosphatase Total Creatine Kinase CK-MB (CK-2) Troponin T Total Protein 5.8 L Albumin 2.2 L Triglycerides 332 H Cholesterol LDL Cholesterol Direct HDL Cholesterol TSH Arterial Blood Glucose 124 H Arterial Blood Ionized Calcium Urine WBC (Auto) Urine Creatinine Urine Total Protein Crossmatch 04/30/21 04/30/21 04/30/21 07:40 11:12 17:00 WBC RBC Hgb Hct MCV RDW 16.3 H Plt Count Lymph % (Auto) [place] % (Auto) Lymph # (Auto) Seg Neutrophils % 88.4 H Seg Neuts % (Manual) 82.0 H Lymphocytes % (Manual) 5.0 L Monocytes % (Manual) Nucleated RBC % Seg Neutrophils # Man Lymphocytes # (Manual) 0.4 L PT INR APTT D-Dimer Heparin Anti-Xa Level ABG pH POC ABG pCO2 POC ABG pO2 ABG pO2 ABG Hemoglobin ABG Oxyhemoglobin ABG Sodium ABG Potassium ABG Chloride ABG Glucose Carboxyhemoglobin Sodium Potassium Chloride Carbon Dioxide BUN Creatinine Glucose POC Glucose 127 H Lactic Acid Calcium Phosphorus Magnesium AST ALT Alkaline Phosphatase Total Creatine Kinase CK-MB (CK-2) Troponin T Total Protein Albumin Triglycerides 304 H Cholesterol LDL Cholesterol Direct HDL Cholesterol TSH Arterial Blood Glucose Arterial Blood Ionized Calcium Urine WBC (Auto) Urine Creatinine Urine Total Protein Crossmatch 04/30/21 04/30/21 05/01/21 18:17 23:25 03:33 WBC RBC Hgb Hct MCV RDW Plt Count Lymph % (Auto) [place] % (Auto) Lymph # (Auto) Seg Neutrophils % Seg Neuts % (Manual) Lymphocytes % (Manual) Monocytes % (Manual) Nucleated RBC % Seg Neutrophils # Man Lymphocytes # (Manual) PT INR APTT D-Dimer Heparin Anti-Xa Level ABG pH 7.275 L POC ABG pCO2 85.0 H POC ABG pO2 ABG pO2 ABG Hemoglobin ABG Oxyhemoglobin ABG Sodium ABG Potassium 5.0 H ABG Chloride ABG Glucose 150 H Carboxyhemoglobin Sodium Potassium Chloride Carbon Dioxide BUN Creatinine Glucose POC Glucose 151 H 143 H Lactic Acid Calcium Phosphorus Magnesium AST ALT Alkaline Phosphatase Total Creatine Kinase CK-MB (CK-2) Troponin T Total Protein Albumin Triglycerides Cholesterol LDL Cholesterol Direct HDL Cholesterol TSH Arterial Blood Glucose 150 H Arterial Blood Ionized Calcium Urine WBC (Auto) Urine Creatinine Urine Total Protein Crossmatch 05/01/21 05/01/21 05/01/21 04:55 05:08 05:08 WBC RBC Hgb Hct MCV RDW 16.7 H Plt Count Lymph % (Auto) [place] % (Auto) Lymph # (Auto) Seg Neutrophils % Seg Neuts % (Manual) Lymphocytes % (Manual) Monocytes % (Manual) Nucleated RBC % Seg Neutrophils # Man Lymphocytes # (Manual) PT INR APTT D-Dimer Heparin Anti-Xa Level ABG pH POC ABG pCO2 POC ABG pO2 ABG pO2 ABG Hemoglobin ABG Oxyhemoglobin ABG Sodium ABG Potassium ABG Chloride ABG Glucose Carboxyhemoglobin Sodium Potassium 5.3 H D Chloride Carbon Dioxide 36 H BUN 39 H Creatinine Glucose 150 H POC Glucose 138 H Lactic Acid Calcium Phosphorus Magnesium AST ALT Alkaline Phosphatase Total Creatine Kinase CK-MB (CK-2) Troponin T Total Protein Albumin Triglycerides Cholesterol LDL Cholesterol Direct HDL Cholesterol TSH Arterial Blood Glucose Arterial Blood Ionized Calcium Urine WBC (Auto) Urine Creatinine Urine Total Protein Crossmatch 05/01/21 05/01/21 05/01/21 11:46 14:30 17:08 WBC RBC Hgb Hct MCV RDW Plt Count Lymph % (Auto) [place] % (Auto) Lymph # (Auto) Seg Neutrophils % Seg Neuts % (Manual) Lymphocytes % (Manual) Monocytes % (Manual) Nucleated RBC % Seg Neutrophils # Man Lymphocytes # (Manual) PT INR APTT D-Dimer Heparin Anti-Xa Level ABG pH POC ABG pCO2 POC ABG pO2 ABG pO2 ABG Hemoglobin ABG Oxyhemoglobin ABG Sodium ABG Potassium ABG Chloride ABG Glucose Carboxyhemoglobin Sodium Potassium Chloride Carbon Dioxide BUN Creatinine Glucose POC Glucose 159 H 206 H Lactic Acid Calcium Phosphorus Magnesium 2.60 H AST ALT Alkaline Phosphatase Total Creatine Kinase CK-MB (CK-2) Troponin T Total Protein Albumin Triglycerides Cholesterol LDL Cholesterol Direct HDL Cholesterol TSH Arterial Blood Glucose Arterial Blood Ionized Calcium Urine WBC (Auto) Urine Creatinine Urine Total Protein Crossmatch 05/01/21 05/02/21 05/02/21 23:21 04:00 05:32 WBC RBC Hgb Hct MCV RDW Plt Count Lymph % (Auto) [place] % (Auto) Lymph # (Auto) Seg Neutrophils % Seg Neuts % (Manual) Lymphocytes % (Manual) Monocytes % (Manual) Nucleated RBC % Seg Neutrophils # Man Lymphocytes # (Manual) PT INR APTT D-Dimer Heparin Anti-Xa Level ABG pH 7.213 L POC ABG pCO2 123.0 H POC ABG pO2 69.9 L ABG pO2 ABG Hemoglobin ABG Oxyhemoglobin 90.0 L ABG Sodium 148.1 H ABG Potassium 5.2 H ABG Chloride ABG Glucose 205 H Carboxyhemoglobin 1.9 H Sodium Potassium Chloride Carbon Dioxide BUN Creatinine Glucose POC Glucose 176 H 184 H Lactic Acid Calcium Phosphorus Magnesium AST ALT Alkaline Phosphatase Total Creatine Kinase CK-MB (CK-2) Troponin T Total Protein Albumin Triglycerides Cholesterol LDL Cholesterol Direct HDL Cholesterol TSH Arterial Blood Glucose 205 H Arterial Blood Ionized Calcium Urine WBC (Auto) Urine Creatinine Urine Total Protein Crossmatch 05/02/21 05/02/21 05/02/21 06:57 06:57 08:00 WBC RBC Hgb Hct MCV RDW 17.5 H Plt Count Lymph % (Auto) [place] % (Auto) Lymph # (Auto) Seg Neutrophils % Seg Neuts % (Manual) 84.0 H Lymphocytes % (Manual) 6.0 L Monocytes % (Manual) Nucleated RBC % 1.0 H Seg Neutrophils # Man Lymphocytes # (Manual) 0.6 L PT INR APTT D-Dimer Heparin Anti-Xa Level ABG pH 7.267 L POC ABG pCO2 102.9 H POC ABG pO2 81.4 L ABG pO2 ABG Hemoglobin ABG Oxyhemoglobin 93.6 L ABG Sodium 148.0 H ABG Potassium 5.4 H ABG Chloride ABG Glucose 249 H Carboxyhemoglobin Sodium 148 H Potassium 5.6 H Chloride Carbon Dioxide 40 H BUN 36 H Creatinine Glucose 227 H POC Glucose Lactic Acid Calcium Phosphorus 2.20 L Magnesium 2.80 H AST 41 H ALT Alkaline Phosphatase Total Creatine Kinase CK-MB (CK-2) Troponin T Total Protein Albumin 2.7 L Triglycerides Cholesterol LDL Cholesterol Direct HDL Cholesterol TSH Arterial Blood Glucose 249 H Arterial Blood Ionized Calcium Urine WBC (Auto) Urine Creatinine Urine Total Protein Crossmatch 05/02/21 05/02/21 05/02/21 10:52 11:58 15:15 WBC RBC Hgb Hct MCV RDW Plt Count Lymph % (Auto) [place] % (Auto) Lymph # (Auto) Seg Neutrophils % Seg Neuts % (Manual) Lymphocytes % (Manual) Monocytes % (Manual) Nucleated RBC % Seg Neutrophils # Man Lymphocytes # (Manual) PT INR APTT D-Dimer Heparin Anti-Xa Level ABG pH 7.260 L POC ABG pCO2 99.9 H POC ABG pO2 74.9 L ABG pO2 ABG Hemoglobin ABG Oxyhemoglobin 92.1 L ABG Sodium 146.4 H ABG Potassium 5.7 H ABG Chloride ABG Glucose 266 H Carboxyhemoglobin Sodium 152 H Potassium 5.4 H Chloride Carbon Dioxide 41 H* BUN 47 H Creatinine Glucose 269 H POC Glucose 268 H Lactic Acid Calcium Phosphorus Magnesium 2.80 H AST ALT Alkaline Phosphatase Total Creatine Kinase CK-MB (CK-2) Troponin T Total Protein Albumin Triglycerides Cholesterol LDL Cholesterol Direct HDL Cholesterol TSH Arterial Blood Glucose 266 H Arterial Blood Ionized Calcium Urine WBC (Auto) Urine Creatinine Urine Total Protein Crossmatch 05/02/21 05/03/21 05/03/21 18:05 00:06 03:45 WBC RBC Hgb Hct MCV 98 H RDW 17.1 H Plt Count Lymph % (Auto) [place] % (Auto) Lymph # (Auto) Seg Neutrophils % Seg Neuts % (Manual) Lymphocytes % (Manual) 9.0 L Monocytes % (Manual) Nucleated RBC % 6.0 H Seg Neutrophils # Man Lymphocytes # (Manual) 0.8 L PT INR APTT D-Dimer Heparin Anti-Xa Level ABG pH POC ABG pCO2 POC ABG pO2 ABG pO2 ABG Hemoglobin ABG Oxyhemoglobin ABG Sodium ABG Potassium ABG Chloride ABG Glucose Carboxyhemoglobin Sodium Potassium Chloride Carbon Dioxide BUN Creatinine Glucose POC Glucose 225 H 230 H Lactic Acid Calcium Phosphorus Magnesium AST ALT Alkaline Phosphatase Total Creatine Kinase CK-MB (CK-2) Troponin T Total Protein Albumin Triglycerides Cholesterol LDL Cholesterol Direct HDL Cholesterol TSH Arterial Blood Glucose Arterial Blood Ionized Calcium Urine WBC (Auto) Urine Creatinine Urine Total Protein Crossmatch 05/03/21 05/03/21 05/03/21 03:45 04:00 05:29 WBC RBC Hgb Hct MCV RDW Plt Count Lymph % (Auto) [place] % (Auto) Lymph # (Auto) Seg Neutrophils % Seg Neuts % (Manual) Lymphocytes % (Manual) Monocytes % (Manual) Nucleated RBC % Seg Neutrophils # Man Lymphocytes # (Manual) PT INR APTT D-Dimer Heparin Anti-Xa Level ABG pH 7.237 L POC ABG pCO2 99.9 H POC ABG pO2 74.8 L ABG pO2 ABG Hemoglobin 11.9 L ABG Oxyhemoglobin 91.9 L ABG Sodium 147.0 H ABG Potassium 5.2 H ABG Chloride ABG Glucose 196 H Carboxyhemoglobin Sodium 151 H Potassium 5.7 H Chloride Carbon Dioxide 40 H BUN 68 H Creatinine 1.8 H D Glucose 200 H POC Glucose 200 H Lactic Acid Calcium Phosphorus Magnesium 3.10 H AST 42 H ALT Alkaline Phosphatase Total Creatine Kinase CK-MB (CK-2) Troponin T Total Protein Albumin 2.4 L Triglycerides Cholesterol LDL Cholesterol Direct HDL Cholesterol TSH Arterial Blood Glucose 196 H Arterial Blood Ionized Calcium Urine WBC (Auto) Urine Creatinine Urine Total Protein Crossmatch 05/03/21 05/03/21 05/03/21 06:05 10:21 11:36 WBC RBC Hgb Hct MCV RDW Plt Count Lymph % (Auto) [place] % (Auto) Lymph # (Auto) Seg Neutrophils % Seg Neuts % (Manual) Lymphocytes % (Manual) Monocytes % (Manual) Nucleated RBC % Seg Neutrophils # Man Lymphocytes # (Manual) PT INR APTT D-Dimer Heparin Anti-Xa Level ABG pH POC ABG pCO2 POC ABG pO2 ABG pO2 ABG Hemoglobin ABG Oxyhemoglobin ABG Sodium ABG Potassium ABG Chloride ABG Glucose Carboxyhemoglobin Sodium Potassium Chloride Carbon Dioxide BUN Creatinine Glucose POC Glucose 197 H Lactic Acid 2.20 H* Calcium Phosphorus Magnesium AST ALT Alkaline Phosphatase Total Creatine Kinase CK-MB (CK-2) Troponin T Total Protein Albumin Triglycerides Cholesterol LDL Cholesterol Direct HDL Cholesterol TSH 0.051 L Arterial Blood Glucose Arterial Blood Ionized Calcium Urine WBC (Auto) Urine Creatinine Urine Total Protein Crossmatch 05/03/21 05/03/21 05/03/21 15:00 15:27 16:10 WBC RBC Hgb Hct MCV RDW Plt Count Lymph % (Auto) [place] % (Auto) Lymph # (Auto) Seg Neutrophils % Seg Neuts % (Manual) Lymphocytes % (Manual) Monocytes % (Manual) Nucleated RBC % Seg Neutrophils # Man Lymphocytes # (Manual) PT INR APTT D-Dimer Heparin Anti-Xa Level ABG pH 7.184 L POC ABG pCO2 120.0 H POC ABG pO2 46.4 L ABG pO2 ABG Hemoglobin 10.4 L ABG Oxyhemoglobin 75.7 L ABG Sodium 148.9 H ABG Potassium ABG Chloride ABG Glucose 157 H Carboxyhemoglobin Sodium 151 H Potassium Chloride Carbon Dioxide 36 H BUN 73 H Creatinine 1.9 H Glucose 155 H POC Glucose Lactic Acid Calcium 10.3 H Phosphorus Magnesium 3.00 H AST ALT Alkaline Phosphatase Total Creatine Kinase CK-MB (CK-2) Troponin T Total Protein Albumin Triglycerides Cholesterol LDL Cholesterol Direct HDL Cholesterol TSH Arterial Blood Glucose 157 H Arterial Blood Ionized Calcium Urine WBC (Auto) 43.0 H Urine Creatinine Urine Total Protein Crossmatch 05/03/21 05/03/21 05/03/21 16:10 18:03 20:00 WBC RBC Hgb Hct MCV RDW Plt Count Lymph % (Auto) [place] % (Auto) Lymph # (Auto) Seg Neutrophils % Seg Neuts % (Manual) Lymphocytes % (Manual) Monocytes % (Manual) Nucleated RBC % Seg Neutrophils # Man Lymphocytes # (Manual) PT INR APTT D-Dimer Heparin Anti-Xa Level ABG pH POC ABG pCO2 82.8 H POC ABG pO2 46.6 L ABG pO2 ABG Hemoglobin 10.4 L ABG Oxyhemoglobin 81.7 L ABG Sodium 154.9 H ABG Potassium 5.5 H ABG Chloride ABG Glucose 152 H Carboxyhemoglobin Sodium Potassium Chloride Carbon Dioxide BUN Creatinine Glucose POC Glucose 108 H Lactic Acid Calcium Phosphorus Magnesium AST ALT Alkaline Phosphatase Total Creatine Kinase CK-MB (CK-2) Troponin T Total Protein Albumin Triglycerides Cholesterol LDL Cholesterol Direct HDL Cholesterol TSH Arterial Blood Glucose 152 H Arterial Blood Ionized Calcium Urine WBC (Auto) Urine Creatinine 65.6 H Urine Total Protein Crossmatch 05/03/21 05/03/21 05/04/21 22:13 23:17 03:39 WBC RBC Hgb Hct MCV RDW Plt Count Lymph % (Auto) [place] % (Auto) Lymph # (Auto) Seg Neutrophils % Seg Neuts % (Manual) Lymphocytes % (Manual) Monocytes % (Manual) Nucleated RBC % Seg Neutrophils # Man Lymphocytes # (Manual) PT INR APTT D-Dimer Heparin Anti-Xa Level ABG pH POC ABG pCO2 94.7 H 88.0 H POC ABG pO2 51.1 L 52.6 L ABG pO2 ABG Hemoglobin 10.6 L 10.3 L ABG Oxyhemoglobin 83.7 L 84.7 L ABG Sodium 156.1 H 157.7 H ABG Potassium 5.6 H 5.2 H ABG Chloride ABG Glucose 181 H 221 H Carboxyhemoglobin Sodium Potassium Chloride Carbon Dioxide BUN Creatinine Glucose POC Glucose 165 H Lactic Acid Calcium Phosphorus Magnesium AST ALT Alkaline Phosphatase Total Creatine Kinase CK-MB (CK-2) Troponin T Total Protein Albumin Triglycerides Cholesterol LDL Cholesterol Direct HDL Cholesterol TSH Arterial Blood Glucose 181 H 221 H Arterial Blood Ionized Calcium Urine WBC (Auto) Urine Creatinine Urine Total Protein Crossmatch 05/04/21 05/04/21 05/04/21 05:27 07:11 07:11 WBC RBC 3.12 L Hgb 9.5 L Hct 29.8 L D MCV RDW 16.6 H Plt Count Lymph % (Auto) [place] % (Auto) Lymph # (Auto) Seg Neutrophils % Seg Neuts % (Manual) Lymphocytes % (Manual) Monocytes % (Manual) Nucleated RBC % Seg Neutrophils # Man Lymphocytes # (Manual) PT INR APTT D-Dimer Heparin Anti-Xa Level ABG pH POC ABG pCO2 POC ABG pO2 ABG pO2 ABG Hemoglobin ABG Oxyhemoglobin ABG Sodium ABG Potassium ABG Chloride ABG Glucose Carboxyhemoglobin Sodium 160 H D Potassium 5.4 H Chloride 109.9 H Carbon Dioxide 45 H* D BUN 75 H Creatinine 1.5 H Glucose 223 H POC Glucose 193 H Lactic Acid Calcium Phosphorus Magnesium 3.10 H AST 44 H ALT Alkaline Phosphatase Total Creatine Kinase CK-MB (CK-2) Troponin T Total Protein 5.7 L Albumin 2.2 L Triglycerides Cholesterol LDL Cholesterol Direct HDL Cholesterol TSH Arterial Blood Glucose Arterial Blood Ionized Calcium Urine WBC (Auto) Urine Creatinine Urine Total Protein Crossmatch 05/04/21 05/04/21 05/04/21 07:11 11:32 13:27 WBC RBC Hgb Hct MCV RDW Plt Count Lymph % (Auto) [place] % (Auto) Lymph # (Auto) Seg Neutrophils % Seg Neuts % (Manual) Lymphocytes % (Manual) Monocytes % (Manual) Nucleated RBC % Seg Neutrophils # Man Lymphocytes # (Manual) PT INR APTT D-Dimer Heparin Anti-Xa Level ABG pH POC ABG pCO2 POC ABG pO2 ABG pO2 ABG Hemoglobin ABG Oxyhemoglobin ABG Sodium ABG Potassium ABG Chloride ABG Glucose Carboxyhemoglobin Sodium Potassium Chloride Carbon Dioxide BUN Creatinine Glucose POC Glucose 276 H Lactic Acid 3.00 H* 3.00 H* Calcium Phosphorus Magnesium AST ALT Alkaline Phosphatase Total Creatine Kinase CK-MB (CK-2) Troponin T Total Protein Albumin Triglycerides Cholesterol LDL Cholesterol Direct HDL Cholesterol TSH Arterial Blood Glucose Arterial Blood Ionized Calcium Urine WBC (Auto) Urine Creatinine Urine Total Protein Crossmatch 05/04/21 05/04/21 05/04/21 13:27 13:53 16:25 WBC RBC Hgb Hct MCV RDW Plt Count Lymph % (Auto) [place] % (Auto) Lymph # (Auto) Seg Neutrophils % Seg Neuts % (Manual) Lymphocytes % (Manual) Monocytes % (Manual) Nucleated RBC % Seg Neutrophils # Man Lymphocytes # (Manual) PT INR APTT D-Dimer Heparin Anti-Xa Level ABG pH 7.275 L POC ABG pCO2 117.3 H 80.8 H POC ABG pO2 69.8 L 55.2 L ABG pO2 ABG Hemoglobin 9.5 L 8.6 L ABG Oxyhemoglobin 89.6 L 86.0 L ABG Sodium 156.2 H 155.9 H ABG Potassium ABG Chloride ABG Glucose 263 H 230 H Carboxyhemoglobin 1.6 H Sodium Potassium Chloride Carbon Dioxide BUN Creatinine Glucose POC Glucose Lactic Acid Calcium Phosphorus Magnesium 3.00 H AST ALT Alkaline Phosphatase Total Creatine Kinase CK-MB (CK-2) Troponin T Total Protein Albumin Triglycerides Cholesterol LDL Cholesterol Direct HDL Cholesterol TSH Arterial Blood Glucose 263 H 230 H Arterial Blood Ionized Calcium 4.5 L Urine WBC (Auto) Urine Creatinine Urine Total Protein Crossmatch 05/04/21 05/04/21 05/04/21 17:28 22:00 22:00 WBC RBC Hgb Hct MCV RDW Plt Count Lymph % (Auto) [place] % (Auto) Lymph # (Auto) Seg Neutrophils % Seg Neuts % (Manual) Lymphocytes % (Manual) Monocytes % (Manual) Nucleated RBC % Seg Neutrophils # Man Lymphocytes # (Manual) PT INR APTT D-Dimer Heparin Anti-Xa Level ABG pH POC ABG pCO2 87.2 H POC ABG pO2 60.7 L ABG pO2 ABG Hemoglobin 8.9 L ABG Oxyhemoglobin 87.8 L ABG Sodium 155.8 H ABG Potassium 4.6 H ABG Chloride ABG Glucose 194 H Carboxyhemoglobin Sodium 159 H Potassium Chloride 110.3 H Carbon Dioxide 44 H* BUN 70 H Creatinine 1.4 H Glucose 200 H POC Glucose 202 H Lactic Acid Calcium Phosphorus Magnesium AST ALT Alkaline Phosphatase Total Creatine Kinase CK-MB (CK-2) Troponin T Total Protein Albumin Triglycerides Cholesterol LDL Cholesterol Direct HDL Cholesterol TSH Arterial Blood Glucose 194 H Arterial Blood Ionized Calcium Urine WBC (Auto) Urine Creatinine Urine Total Protein Crossmatch 05/04/21 05/05/21 05/05/21 23:12 04:58 04:58 WBC RBC 2.78 L Hgb 8.6 L Hct 27.1 L MCV RDW 17.0 H Plt Count Lymph % (Auto) [place] % (Auto) Lymph # (Auto) Seg Neutrophils % Seg Neuts % (Manual) Lymphocytes % (Manual) Monocytes % (Manual) Nucleated RBC % Seg Neutrophils # Man Lymphocytes # (Manual) PT INR APTT D-Dimer Heparin Anti-Xa Level ABG pH POC ABG pCO2 POC ABG pO2 ABG pO2 ABG Hemoglobin ABG Oxyhemoglobin ABG Sodium ABG Potassium ABG Chloride ABG Glucose Carboxyhemoglobin Sodium 161 H* Potassium Chloride 112.6 H Carbon Dioxide 46 H* BUN 67 H Creatinine Glucose 188 H POC Glucose 196 H Lactic Acid Calcium Phosphorus Magnesium 3.00 H AST ALT Alkaline Phosphatase Total Creatine Kinase CK-MB (CK-2) Troponin T Total Protein Albumin Triglycerides Cholesterol LDL Cholesterol Direct HDL Cholesterol TSH Arterial Blood Glucose Arterial Blood Ionized Calcium Urine WBC (Auto) Urine Creatinine Urine Total Protein Crossmatch 05/05/21 05/05/21 05/05/21 05:11 10:52 11:55 WBC RBC Hgb Hct MCV RDW Plt Count Lymph % (Auto) [place] % (Auto) Lymph # (Auto) Seg Neutrophils % Seg Neuts % (Manual) Lymphocytes % (Manual) Monocytes % (Manual) Nucleated RBC % Seg Neutrophils # Man Lymphocytes # (Manual) PT INR APTT D-Dimer Heparin Anti-Xa Level ABG pH POC ABG pCO2 89.7 H POC ABG pO2 60.2 L ABG pO2 ABG Hemoglobin 8.8 L ABG Oxyhemoglobin 86.9 L ABG Sodium 153.6 H ABG Potassium ABG Chloride ABG Glucose 195 H Carboxyhemoglobin Sodium Potassium Chloride Carbon Dioxide BUN Creatinine Glucose POC Glucose 157 H 186 H Lactic Acid Calcium Phosphorus Magnesium AST ALT Alkaline Phosphatase Total Creatine Kinase CK-MB (CK-2) Troponin T Total Protein Albumin Triglycerides Cholesterol LDL Cholesterol Direct HDL Cholesterol TSH Arterial Blood Glucose 195 H Arterial Blood Ionized Calcium Urine WBC (Auto) Urine Creatinine Urine Total Protein Crossmatch 05/05/21 05/05/21 05/06/21 17:50 23:24 00:05 WBC RBC Hgb Hct MCV RDW Plt Count Lymph % (Auto) [place] % (Auto) Lymph # (Auto) Seg Neutrophils % Seg Neuts % (Manual) Lymphocytes % (Manual) Monocytes % (Manual) Nucleated RBC % Seg Neutrophils # Man Lymphocytes # (Manual) PT INR APTT D-Dimer Heparin Anti-Xa Level ABG pH POC ABG pCO2 POC ABG pO2 ABG pO2 ABG Hemoglobin ABG Oxyhemoglobin ABG Sodium ABG Potassium ABG Chloride ABG Glucose Carboxyhemoglobin Sodium 152 H D Potassium Chloride Carbon Dioxide BUN Creatinine Glucose POC Glucose 177 H 227 H Lactic Acid Calcium Phosphorus Magnesium AST ALT Alkaline Phosphatase Total Creatine Kinase CK-MB (CK-2) Troponin T Total Protein Albumin Triglycerides Cholesterol LDL Cholesterol Direct HDL Cholesterol TSH Arterial Blood Glucose Arterial Blood Ionized Calcium Urine WBC (Auto) Urine Creatinine Urine Total Protein Crossmatch 05/06/21 05/06/21 05/06/21 04:26 05:08 06:17 WBC RBC 2.34 L Hgb 7.2 L Hct 22.7 L MCV RDW 16.8 H Plt Count 139 L Lymph % (Auto) [place] % (Auto) Lymph # (Auto) Seg Neutrophils % Seg Neuts % (Manual) Lymphocytes % (Manual) Monocytes % (Manual) Nucleated RBC % Seg Neutrophils # Man Lymphocytes # (Manual) PT INR APTT D-Dimer Heparin Anti-Xa Level ABG pH 7.292 L POC ABG pCO2 93.8 H POC ABG pO2 47.8 L ABG pO2 ABG Hemoglobin 7.9 L ABG Oxyhemoglobin 76.2 L ABG Sodium 145.7 H ABG Potassium ABG Chloride ABG Glucose 245 H Carboxyhemoglobin 1.6 H Sodium Potassium Chloride Carbon Dioxide BUN Creatinine Glucose POC Glucose 252 H Lactic Acid Calcium Phosphorus Magnesium AST ALT Alkaline Phosphatase Total Creatine Kinase CK-MB (CK-2) Troponin T Total Protein Albumin Triglycerides Cholesterol LDL Cholesterol Direct HDL Cholesterol TSH Arterial Blood Glucose 245 H Arterial Blood Ionized Calcium Urine WBC (Auto) Urine Creatinine Urine Total Protein Crossmatch 05/06/21 05/06/21 05/06/21 06:17 10:40 11:34 WBC RBC Hgb Hct MCV RDW Plt Count Lymph % (Auto) [place] % (Auto) Lymph # (Auto) Seg Neutrophils % Seg Neuts % (Manual) Lymphocytes % (Manual) Monocytes % (Manual) Nucleated RBC % Seg Neutrophils # Man Lymphocytes # (Manual) PT INR APTT D-Dimer Heparin Anti-Xa Level ABG pH POC ABG pCO2 POC ABG pO2 ABG pO2 ABG Hemoglobin ABG Oxyhemoglobin ABG Sodium ABG Potassium ABG Chloride ABG Glucose Carboxyhemoglobin Sodium 150 H Potassium Chloride Carbon Dioxide 47 H* BUN 80 H Creatinine 1.6 H Glucose 264 H POC Glucose 208 H Lactic Acid Calcium Phosphorus Magnesium AST ALT Alkaline Phosphatase Total Creatine Kinase CK-MB (CK-2) Troponin T Total Protein Albumin Triglycerides Cholesterol LDL Cholesterol Direct HDL Cholesterol TSH Arterial Blood Glucose Arterial Blood Ionized Calcium Urine WBC (Auto) Urine Creatinine Urine Total Protein Crossmatch See Detail 05/06/21 05/06/21 05/06/21 13:41 14:31 16:29 WBC RBC Hgb Hct MCV RDW Plt Count Lymph % (Auto) [place] % (Auto) Lymph # (Auto) Seg Neutrophils % Seg Neuts % (Manual) Lymphocytes % (Manual) Monocytes % (Manual) Nucleated RBC % Seg Neutrophils # Man Lymphocytes # (Manual) PT INR APTT D-Dimer Heparin Anti-Xa Level ABG pH 7.117 L 7.275 L POC ABG pCO2 128.1 H 74.7 H POC ABG pO2 49.7 L 37.6 L ABG pO2 ABG Hemoglobin 8.3 L 5.3 L ABG Oxyhemoglobin 71.6 L 63.2 L ABG Sodium ABG Potassium ABG Chloride 97.0 L ABG Glucose 247 H 239 H Carboxyhemoglobin 1.6 H Sodium Potassium Chloride Carbon Dioxide BUN Creatinine Glucose POC Glucose Lactic Acid Calcium Phosphorus Magnesium AST ALT Alkaline Phosphatase Total Creatine Kinase CK-MB (CK-2) Troponin T Total Protein Albumin Triglycerides 215 H Cholesterol LDL Cholesterol Direct HDL Cholesterol TSH Arterial Blood Glucose 247 H 239 H Arterial Blood Ionized Calcium 4.2 L 4.1 L Urine WBC (Auto) Urine Creatinine Urine Total Protein Crossmatch 05/06/21 05/06/21 05/07/21 17:50 23:51 02:57 WBC RBC Hgb Hct MCV RDW Plt Count Lymph % (Auto) [place] % (Auto) Lymph # (Auto) Seg Neutrophils % Seg Neuts % (Manual) Lymphocytes % (Manual) Monocytes % (Manual) Nucleated RBC % Seg Neutrophils # Man Lymphocytes # (Manual) PT INR APTT D-Dimer Heparin Anti-Xa Level ABG pH 7.208 L POC ABG pCO2 91.5 H POC ABG pO2 51.2 L ABG pO2 ABG Hemoglobin 10.5 L ABG Oxyhemoglobin 78.7 L ABG Sodium ABG Potassium ABG Chloride 97.0 L ABG Glucose 251 H Carboxyhemoglobin Sodium Potassium Chloride Carbon Dioxide BUN Creatinine Glucose POC Glucose 244 H 230 H Lactic Acid Calcium Phosphorus Magnesium AST ALT Alkaline Phosphatase Total Creatine Kinase CK-MB (CK-2) Troponin T Total Protein Albumin Triglycerides Cholesterol LDL Cholesterol Direct HDL Cholesterol TSH Arterial Blood Glucose 251 H Arterial Blood Ionized Calcium 4.4 L Urine WBC (Auto) Urine Creatinine Urine Total Protein Crossmatch 05/07/21 05/07/21 05/07/21 05:20 05:20 05:32 WBC RBC 3.22 L Hgb 10.0 L Hct MCV RDW 17.1 H Plt Count 116 L Lymph % (Auto) [place] % (Auto) Lymph # (Auto) Seg Neutrophils % Seg Neuts % (Manual) 77.0 H Lymphocytes % (Manual) 2.0 L Monocytes % (Manual) Nucleated RBC % 37.0 H Seg Neutrophils # Man Lymphocytes # (Manual) 0.2 L PT INR APTT D-Dimer Heparin Anti-Xa Level ABG pH POC ABG pCO2 POC ABG pO2 ABG pO2 ABG Hemoglobin ABG Oxyhemoglobin ABG Sodium ABG Potassium ABG Chloride ABG Glucose Carboxyhemoglobin Sodium Potassium Chloride 97.2 L Carbon Dioxide 36 H D BUN 93 H Creatinine 2.1 H Glucose 238 H POC Glucose 225 H Lactic Acid Calcium Phosphorus Magnesium 2.40 H AST 71 H ALT Alkaline Phosphatase Total Creatine Kinase CK-MB (CK-2) Troponin T Total Protein 5.1 L Albumin 2.2 L Triglycerides Cholesterol LDL Cholesterol Direct HDL Cholesterol TSH Arterial Blood Glucose Arterial Blood Ionized Calcium Urine WBC (Auto) Urine Creatinine Urine Total Protein Crossmatch 05/07/21 05/07/21 05/07/21 11:00 11:45 17:31 WBC RBC Hgb Hct MCV RDW Plt Count Lymph % (Auto) [place] % (Auto) Lymph # (Auto) Seg Neutrophils % Seg Neuts % (Manual) Lymphocytes % (Manual) Monocytes % (Manual) Nucleated RBC % Seg Neutrophils # Man Lymphocytes # (Manual) PT INR APTT D-Dimer Heparin Anti-Xa Level ABG pH 7.207 L POC ABG pCO2 92.2 H POC ABG pO2 51.2 L ABG pO2 ABG Hemoglobin 10.5 L ABG Oxyhemoglobin 77.9 L ABG Sodium ABG Potassium ABG Chloride ABG Glucose 214 H Carboxyhemoglobin Sodium Potassium Chloride Carbon Dioxide BUN Creatinine Glucose POC Glucose 177 H 197 H Lactic Acid Calcium Phosphorus Magnesium AST ALT Alkaline Phosphatase Total Creatine Kinase CK-MB (CK-2) Troponin T Total Protein Albumin Triglycerides Cholesterol LDL Cholesterol Direct HDL Cholesterol TSH Arterial Blood Glucose 214 H Arterial Blood Ionized Calcium 4.5 L Urine WBC (Auto) Urine Creatinine Urine Total Protein Crossmatch 05/07/21 05/07/21 05/08/21 21:22 23:54 02:11 WBC RBC Hgb Hct MCV RDW Plt Count Lymph % (Auto) [place] % (Auto) Lymph # (Auto) Seg Neutrophils % Seg Neuts % (Manual) Lymphocytes % (Manual) Monocytes % (Manual) Nucleated RBC % Seg Neutrophils # Man Lymphocytes # (Manual) PT INR APTT D-Dimer Heparin Anti-Xa Level ABG pH POC ABG pCO2 POC ABG pO2 ABG pO2 ABG Hemoglobin ABG Oxyhemoglobin ABG Sodium ABG Potassium ABG Chloride ABG Glucose Carboxyhemoglobin Sodium Potassium Chloride Carbon Dioxide BUN Creatinine Glucose POC Glucose 172 H 164 H 132 H Lactic Acid Calcium Phosphorus Magnesium AST ALT Alkaline Phosphatase Total Creatine Kinase CK-MB (CK-2) Troponin T Total Protein Albumin Triglycerides Cholesterol LDL Cholesterol Direct HDL Cholesterol TSH Arterial Blood Glucose Arterial Blood Ionized Calcium Urine WBC (Auto) Urine Creatinine Urine Total Protein Crossmatch 05/08/21 05/08/21 05/08/21 03:03 05:31 10:54 WBC RBC 3.38 L Hgb Hct MCV RDW 16.2 H Plt Count 128 L Lymph % (Auto) [place] % (Auto) Lymph # (Auto) Seg Neutrophils % Seg Neuts % (Manual) Lymphocytes % (Manual) Monocytes % (Manual) Nucleated RBC % Seg Neutrophils # Man Lymphocytes # (Manual) PT INR APTT D-Dimer Heparin Anti-Xa Level ABG pH 7.230 L POC ABG pCO2 87.9 H POC ABG pO2 58.3 L ABG pO2 ABG Hemoglobin 10.6 L ABG Oxyhemoglobin 84.4 L ABG Sodium ABG Potassium 4.6 H ABG Chloride 97.0 L ABG Glucose 143 H Carboxyhemoglobin Sodium Potassium Chloride Carbon Dioxide BUN Creatinine Glucose POC Glucose 148 H Lactic Acid Calcium Phosphorus Magnesium AST ALT Alkaline Phosphatase Total Creatine Kinase CK-MB (CK-2) Troponin T Total Protein Albumin Triglycerides Cholesterol LDL Cholesterol Direct HDL Cholesterol TSH Arterial Blood Glucose 143 H Arterial Blood Ionized Calcium 4.3 L Urine WBC (Auto) Urine Creatinine Urine Total Protein Crossmatch 05/08/21 05/08/21 05/08/21 10:54 11:31 17:41 WBC RBC Hgb Hct MCV RDW Plt Count Lymph % (Auto) [place] % (Auto) Lymph # (Auto) Seg Neutrophils % Seg Neuts % (Manual) Lymphocytes % (Manual) Monocytes % (Manual) Nucleated RBC % Seg Neutrophils # Man Lymphocytes # (Manual) PT INR APTT D-Dimer Heparin Anti-Xa Level ABG pH POC ABG pCO2 POC ABG pO2 ABG pO2 ABG Hemoglobin ABG Oxyhemoglobin ABG Sodium ABG Potassium ABG Chloride ABG Glucose Carboxyhemoglobin Sodium Potassium 5.1 H Chloride 97.8 L Carbon Dioxide 37 H BUN 112 H Creatinine 2.2 H Glucose 163 H POC Glucose 170 H 193 H Lactic Acid Calcium Phosphorus Magnesium AST ALT Alkaline Phosphatase Total Creatine Kinase CK-MB (CK-2) Troponin T Total Protein Albumin Triglycerides Cholesterol LDL Cholesterol Direct HDL Cholesterol TSH Arterial Blood Glucose Arterial Blood Ionized Calcium Urine WBC (Auto) Urine Creatinine Urine Total Protein Crossmatch 05/08/21 05/09/21 05/09/21 21:28 04:17 05:56 WBC RBC Hgb Hct MCV RDW Plt Count Lymph % (Auto) [place] % (Auto) Lymph # (Auto) Seg Neutrophils % Seg Neuts % (Manual) Lymphocytes % (Manual) Monocytes % (Manual) Nucleated RBC % Seg Neutrophils # Man Lymphocytes # (Manual) PT INR APTT D-Dimer Heparin Anti-Xa Level ABG pH POC ABG pCO2 POC ABG pO2 ABG pO2 ABG Hemoglobin ABG Oxyhemoglobin ABG Sodium ABG Potassium ABG Chloride ABG Glucose Carboxyhemoglobin Sodium Potassium Chloride Carbon Dioxide BUN Creatinine Glucose POC Glucose 185 H 47 L 139 H Lactic Acid Calcium Phosphorus Magnesium AST ALT Alkaline Phosphatase Total Creatine Kinase CK-MB (CK-2) Troponin T Total Protein Albumin Triglycerides Cholesterol LDL Cholesterol Direct HDL Cholesterol TSH Arterial Blood Glucose Arterial Blood Ionized Calcium Urine WBC (Auto) Urine Creatinine Urine Total Protein Crossmatch 05/09/21 05/09/21 05/09/21 09:15 09:15 11:38 WBC 20.2 H RBC 2.89 L Hgb 8.7 L Hct 29.1 L MCV 101 H RDW 17.8 H Plt Count 134 L Lymph % (Auto) [place] % (Auto) Lymph # (Auto) Seg Neutrophils % Seg Neuts % (Manual) Lymphocytes % (Manual) Monocytes % (Manual) Nucleated RBC % Seg Neutrophils # Man Lymphocytes # (Manual) PT INR APTT D-Dimer Heparin Anti-Xa Level ABG pH POC ABG pCO2 POC ABG pO2 ABG pO2 ABG Hemoglobin ABG Oxyhemoglobin ABG Sodium ABG Potassium ABG Chloride ABG Glucose Carboxyhemoglobin Sodium 147 H Potassium 6.2 H* D Chloride 97.5 L Carbon Dioxide BUN 135 H Creatinine 3.3 H Glucose 109 H POC Glucose 139 H Lactic Acid Calcium Phosphorus Magnesium AST ALT Alkaline Phosphatase Total Creatine Kinase CK-MB (CK-2) Troponin T Total Protein Albumin Triglycerides Cholesterol LDL Cholesterol Direct HDL Cholesterol TSH Arterial Blood Glucose Arterial Blood Ionized Calcium Urine WBC (Auto) Urine Creatinine Urine Total Protein Crossmatch 05/09/21 05/09/21 05/09/21 15:30 15:30 15:30 WBC RBC Hgb 7.6 L Hct 25.4 L MCV RDW Plt Count 114 L Lymph % (Auto) [place] % (Auto) Lymph # (Auto) Seg Neutrophils % Seg Neuts % (Manual) Lymphocytes % (Manual) Monocytes % (Manual) Nucleated RBC % Seg Neutrophils # Man Lymphocytes # (Manual) PT 29.2 H INR 2.74 H APTT 44.9 H D-Dimer Heparin Anti-Xa Level ABG pH POC ABG pCO2 POC ABG pO2 ABG pO2 ABG Hemoglobin ABG Oxyhemoglobin ABG Sodium ABG Potassium ABG Chloride ABG Glucose Carboxyhemoglobin Sodium Potassium 5.8 H Chloride 97.8 L Carbon Dioxide 18 L BUN 133 H Creatinine 3.6 H Glucose 234 H POC Glucose Lactic Acid Calcium 7.4 L D Phosphorus Magnesium AST ALT Alkaline Phosphatase Total Creatine Kinase CK-MB (CK-2) Troponin T Total Protein Albumin Triglycerides Cholesterol LDL Cholesterol Direct HDL Cholesterol TSH Arterial Blood Glucose Arterial Blood Ionized Calcium Urine WBC (Auto) Urine Creatinine Urine Total Protein Crossmatch 05/09/21 05/09/21 05/09/21 15:30 17:32 23:15 WBC RBC Hgb Hct MCV RDW Plt Count Lymph % (Auto) [place] % (Auto) Lymph # (Auto) Seg Neutrophils % Seg Neuts % (Manual) Lymphocytes % (Manual) Monocytes % (Manual) Nucleated RBC % Seg Neutrophils # Man Lymphocytes # (Manual) PT INR APTT D-Dimer Heparin Anti-Xa Level ABG pH POC ABG pCO2 POC ABG pO2 ABG pO2 ABG Hemoglobin ABG Oxyhemoglobin ABG Sodium ABG Potassium ABG Chloride ABG Glucose Carboxyhemoglobin Sodium Potassium Chloride Carbon Dioxide BUN Creatinine Glucose POC Glucose 211 H 227 H Lactic Acid Calcium Phosphorus Magnesium AST ALT Alkaline Phosphatase Total Creatine Kinase CK-MB (CK-2) Troponin T 0.444 H* Total Protein Albumin Triglycerides Cholesterol LDL Cholesterol Direct HDL Cholesterol TSH Arterial Blood Glucose Arterial Blood Ionized Calcium Urine WBC (Auto) Urine Creatinine Urine Total Protein Crossmatch 05/10/21 05/10/21 05/10/21 04:51 04:51 05:01 WBC 20.4 H RBC 2.32 L Hgb 7.2 L Hct 24.0 L MCV 103 H RDW 18.4 H Plt Count 96 L Lymph % (Auto) [place] % (Auto) Lymph # (Auto) Seg Neutrophils % Seg Neuts % (Manual) 87.0 H Lymphocytes % (Manual) 2.0 L Monocytes % (Manual) Nucleated RBC % 8.0 H Seg Neutrophils # Man 0.0 L Lymphocytes # (Manual) 0.0 L PT INR APTT D-Dimer Heparin Anti-Xa Level ABG pH POC ABG pCO2 POC ABG pO2 ABG pO2 ABG Hemoglobin ABG Oxyhemoglobin ABG Sodium ABG Potassium ABG Chloride ABG Glucose Carboxyhemoglobin Sodium 146 H Potassium 7.0 H* D Chloride 92.9 L Carbon Dioxide 21 L BUN 142 H Creatinine 4.0 H Glucose 297 H POC Glucose 224 H Lactic Acid Calcium 7.1 L Phosphorus Magnesium AST 8239 H ALT 3058 H Alkaline Phosphatase 172 H Total Creatine Kinase CK-MB (CK-2) Troponin T Total Protein 3.3 L D Albumin 1.5 L Triglycerides Cholesterol LDL Cholesterol Direct HDL Cholesterol TSH Arterial Blood Glucose Arterial Blood Ionized Calcium Urine WBC (Auto) Urine Creatinine Urine Total Protein Crossmatch Allied health notes reviewed: nursing
[2021-05-10] MEDS ORDERED: INSULIN REGULAR, HUMAN 100 UNITS/1 ML IV NR (10:00)
[2021-05-10] MEDS ORDERED: CALCIUM GLUCONATE 1,000 MG in SODIUM CHLORIDE 0.9% 100 ML IV ONE (10:00)
--- NOTE | 2021-05-10 10:07 | Event Note ---
Date: 05/10/21 I called and spoke to Ms Sandy Pace in regards to the current condition of her mother, Natividad Smith. I explained to her that given her mother's worsening clinical status and hemodynamic instability requiring multiple pressors in the setting of 3 cardiac arrests within the last 24 hours, that Ms Smith would be too unstable to start on iHD for clearance/correction of hyperkalemia and potential fluid removal with UF. Given this, I explained to patient's daughter that we will continue to manage her hyperkalemia medically at this point, and ad vised her to strongly re-consider the goals of care for her mother. I would recommend comfort care/hospice for mother given her poor prognosis.
[2021-05-10] MEDS: VASOPRESSIN 20 UNIT in SODIUM CHLORIDE 0.9% 100 ML IV SCH (10:37)
[2021-05-10] MEDS: levETIRAcetam 500 MG/5 ML ORAL LIQD PO SCH (10:37)
[2021-05-10] MEDS: FAMOTIDINE 20 MG TAB PO SCH (10:37)
[2021-05-10] MEDS: QUEtiapine 25 MG TAB PO SCH (10:37)
--- NOTE | 2021-05-10 11:18 | Consultation ---
History of Present Illness - Reason for Consult Consult date: 05/10/21 - History of Present Illness 66-year-old female who has been admitted since 04/24/2021 and was initially brought in for altered mental status and seizures. She had chronic left-sided weakness from a prior CVA which is increased from 3 days prior to admission. She has been intubated since admission. There has been no improvement in her clinical status, and she is now on 3 pressors and remains unresponsive without sedation. Family continues to maintain full code. Afebrile, had T-max of 100.3 days ago. Remains tachycardic. Currently on methylprednisolone. White count 20.4. Had blood cultures earlier in admission with Klebsiella oxytoca as well as positive cultures and urine tracheal aspirate. Imaging personally reviewed: Chest x-ray: Interstitial prominence of bilateral lungs. Past History Past Medical History: hypertension, hyperlipidemia, stroke Social history: lives with family Medications and Allergies Allergies Allergy/AdvReac Type Severity Reaction Status Date / Time No Known Allergies Allergy Unverified 03/04/19 19:33 Home Medications Medication Instructions Recorded Confirmed Last Taken Type Lipitor 40 mg PO QHS #30 03/10/19 04/25/21 Unknown Rx Aspirin 300 mg PO QDAY 04/25/21 04/25/21 Unknown History Aspirin [Aspirin BABY CHEW TAB] 81 mg PO QDAY 04/25/21 04/25/21 Unknown History Sertraline [Zoloft] 50 mg PO QDAY 04/25/21 04/25/21 Unknown History amLODIPine 10 mg PO QDAY 04/25/21 04/25/21 Unknown History hydroCHLOROthiazide 12.5 mg PO QDAY 04/25/21 04/25/21 Unknown History [Hydrochlorothiazide] Active Meds: Active Medications Acetaminophen (Acetaminophen 325 Mg Tab) 650 mg PO Q4H PRN PRN Reason: Pain MILD(1-3)/Fever >100.5/[facility] Last Admin: 05/06/21 04:04 Dose: 650 mg Documented by: Acetaminophen (Acetaminophen 650 Mg Rect Supp) 650 mg TN Q6H PRN PRN Reason: Fever>100.5 Lipase/Protease/Amylase (Lipase 10,500/Protease 25,000/Amylase 43,750 (Units) Dr Ryan) 1 each FEEDTUBE PRN PRN PRN Reason: For Clogged Feeding Tube Arformoterol Tartrate (Arformoterol 15 Mcg/2 Ml Nebu) 15 mcg IH Q12HRT [facility] Last Admin: 05/10/21 08:30 Dose: 15 mcg Documented by: Aspirin (Aspirin 325 Mg Tab) 325 mg PO QDAY [facility] Last Admin: 05/09/21 10:32 Dose: 325 mg Documented by: Atorvastatin Calcium (Atorvastatin 40 Mg Tab) 40 mg PO QHS [facility] Last Admin: 05/09/21 21:31 Dose: 40 mg Documented by: Budesonide (Budesonide 0.5 Mg/2 Ml Nebu) 0.5 mg IH Q12HRT [facility] Last Admin: 05/10/21 08:30 Dose: 0.5 mg Documented by: Dextrose (Dextrose 50% In Water (25gm) 50 Ml Syringe) 50 ml IV Q30MIN PRN; Protocol PRN Reason: Hypoglycemia Last Admin: 05/09/21 04:22 Dose: 50 ml Documented by: Famotidine (Famotidine 20 Mg Tab) 20 mg PO DAILY [facility] Last Admin: 05/10/21 10:37 Dose: 20 mg Documented by: Heparin Sodium (Porcine) (Heparin 10,000 Units/10 Ml Vial) 3,500 unit 40 unit/kg (3500 unit) IV Q6H PRN PRN Reason: Anti-Xa Assay < 0.1 units/ml Hydralazine HCl (Hydralazine 20 Mg/1 Ml Inj) 10 mg IV Q4H PRN PRN Reason: Hypertension Hydrophilic Ointment (Lip Therapy Vaseline) 1 applic TP Q2HR PRN PRN Reason: Dry Lips Vasopressin 20 unit/ Sodium (Chloride) 101 mls @ 9.09 mls/hr IV TITR [facility]; Protocol Last Admin: 05/10/21 10:37 Dose: 0.03 units/min, 9.09 mls/hr Documented by: Phenylephrine HCl 100 mg/ (Sodium Chloride) 100 mls @ 3 mls/hr IV TITR [facility]; Protocol Last Titration: 05/09/21 14:00 Dose: 0 mcg/min, 0 mls/hr Documented by: Epinephrine 8 mg/ Sodium (Chloride) 250 mls @ 3.75 mls/hr IV TITR [facility]; Protocol Last Titration: 05/09/21 13:00 Dose: 0 mcg/min, 0 mls/hr Documented by: Dopamine HCl/Dextrose (Intropin Drip 800 Mg/D5w 250 Ml) 800 mg in 250 mls @ 3.3 mls/hr IV TITR [facility]; Protocol Last Admin: 05/10/21 06:25 Dose: 18 mcg/kg/min, 29.7 mls/hr Documented by: Sodium Bicarbonate 150 meq/ (Dextrose) 1,150 mls @ 125 mls/hr IV DIRECT [facility] Last Admin: 05/10/21 05:38 Dose: 125 mls/hr Documented by: NORepinephrine/NS 8 MG-250 ML (Norepinephrine/Ns 8 Mg-250 Ml (Double Conc)) 8 mg in 250 mls @ 3.75 mls/hr IV TITRATE [facility]; Protocol Last Admin: 05/10/21 07:59 Dose: 24 mcg/min, 45 mls/hr Documented by: Heparin Sodium/Sodium Chloride (Heparin/ 0.45% Nacl-25,000 Unit/500 Ml) 25,000 unit in 500 mls @ 26 mls/hr IV TITR [facility]; Protocol Last Admin: 05/09/21 22:06 Dose: 1,300 units/hr, 26 mls/hr Documented by: Insulin Human Lispro (Insulin Lispro 100 Unit/Ml) 0 unit SUB-Q Q6HR [facility]; Protocol Last Admin: 05/10/21 05:37 Dose: Not Given Documented by: Levetiracetam (Levetiracetam 500 Mg/5 Ml Oral Liqd) 750 mg PO BID [facility] Last Admin: 05/10/21 10:37 Dose: 750 mg Documented by: Lorazepam (Lorazepam 2 Mg/Ml Vial) 1 mg IV Q6H PRN PRN Reason: Agitation/SEIZURES Methylprednisolone Sodium Succinate (Methylprednisolone Sod Succinate 40 Mg/1 Ml Inj) 60 mg IV Q6H [facility] Last Admin: 05/10/21 05:38 Dose: 60 mg Documented by: Multi-Ingred Cream/Lotion/Oil/Oint (Mineral Oil/Petrolatum, White Ophth Oint 3.5 Gm) 1 applic OU Q4HR PRN PRN Reason: Dry Eye(s) Ondansetron HCl (Ondansetron 4 Mg/2 Ml Inj) 4 mg IV Q6H PRN PRN Reason: Nausea And Vomiting Last Admin: 05/03/21 18:40 Dose: 4 mg Documented by: Polyethylene Glycol (Polyethylene Glycol 3350 17 Gm Powder) 17 gm PO QDAY PRN PRN Reason: Constipation Quetiapine Fumarate (Quetiapine 25 Mg Tab) 25 mg PO BID [facility] Last Admin: 05/10/21 10:37 Dose: 25 mg Documented by: Senna/Docusate Sodium (Sennosides/Docusate Sodium 8.6/50 Mg Tab) 1 tab FEEDTUBE QHS [facility] Last Admin: 05/09/21 21:32 Dose: 1 tab Documented by: Simple Syrup (Simple Syrup 15 Ml) 15 ml FEEDTUBE PRN PRN PRN Reason: Hypoglycemia Simple Syrup (Simple Syrup 15 Ml) 30 ml FEEDTUBE PRN PRN PRN Reason: Hypoglycemia Sodium Bicarbonate (Sodium Bicarbonate 325 Mg Tab) 325 mg FEEDTUBE PRN PRN PRN Reason: For Clogged Feeding Tube Sodium Chloride (Sodium Chloride 0.9% 10 Ml Flush Syringe) 10 ml IV BID [facility] Last Admin: 05/09/21 21:33 Dose: 10 ml Documented by: Sodium Chloride (Sodium Chloride 0.9% 10 Ml Flush Syringe) 10 ml IV PRN PRN PRN Reason: LINE FLUSH Last Admin: 05/09/21 05:36 Dose: 10 ml Documented by: Sodium Polystyrene Sulfonate (Sodium Polystyrene 15 Gm/60 Ml Oral Liqd) 60 gm TN ONCE NR Stop: 05/10/21 12:00 Last Admin: 05/10/21 10:38 Dose: 60 gm Documented by: Review of Systems ROS unobtainable: due to endotracheal tube Physical Examination - Physical Exam Narrative exam: Physical Exam: Constitutional: Intubated, unresponsive Head, Ears, Nose: Normocephalic, atraumatic. External ears, nose normal Eyes: Conjunctivae/corneas clear. No icterus. No ptosis. Neck: ETT Oral: ETT Cardiovascular: S1, S2 normal. Respiratory: Good air entry, clear to auscultation bilaterally GI: Soft, non-tender; bowel sounds normal. No peritoneal signs. Musculoskeletal: No pedal edema, no cyanosis. Skin: No rash or abscess Hem/Lymphatic: No palpable cervical or supraclavicular nodes. No lymphangitis Psych: Unresponsive Neurological: Unresponsive - Constitutional Vitals: Vital Signs Temp Pulse Resp BP Pulse Ox 94.6 F L 104 H 27 H 127/106 0 L 05/10/21 08:00 05/10/21 10:01 05/10/21 10:01 05/10/21 10:01 05/10/21 08:22 Temperature -Last 24 Hours Temperature 94.6 F Temperature 97.6 F Temperature 97.8 F Temperature 98.8 F Temperature 99.3 F Results - Labs CBC & Chem 7: 05/10/21 04:51 05/10/21 04:51 Labs: Abnormal lab results 05/09/21 05/09/21 05/09/21 Range/Units 11:38 15:30 15:30 WBC (4.5-11.0) K/mm3 RBC (3.65-5.03) M/mm3 Hgb 7.6 L (10.1-14.3) gm/dl Hct 25.4 L (30.3-42.9) % MCV (79-97) fl RDW (13.2-15.2) % Plt Count 114 L (140-440) K/mm3 Seg Neuts % (Manual) (40.0-70.0) % Lymphocytes % (Manual) (13.4-35.0) % Nucleated RBC % (0.0-0.9) % Seg Neutrophils # Man (1.8-7.7) K/mm3 Lymphocytes # (Manual) (1.2-5.4) K/mm3 PT 29.2 H (12.2-14.9) Sec. INR 2.74 H (0.87-1.13) APTT 44.9 H (24.2-36.6) Sec. Sodium (137-145) mmol/L Potassium (3.6-5.0) mmol/L Chloride (98-107) mmol/L Carbon Dioxide (22-30) mmol/L BUN (7-17) mg/dL Creatinine (0.6-1.2) mg/dL Glucose (65-100) mg/dL POC Glucose 139 H (70-105) mg/dL Calcium (8.4-10.2) mg/dL AST (5-40) units/L ALT (7-56) units/L Alkaline Phosphatase (35-129) units/L Troponin T (0.00-0.029) ng/mL Total Protein (6.3-8.2) g/dL Albumin (3.9-5) g/dL 05/09/21 05/09/21 05/09/21 Range/Units 15:30 15:30 17:32 WBC (4.5-11.0) K/mm3 RBC (3.65-5.03) M/mm3 Hgb (10.1-14.3) gm/dl Hct (30.3-42.9) % MCV (79-97) fl RDW (13.2-15.2) % Plt Count (140-440) K/mm3 Seg Neuts % (Manual) (40.0-70.0) % Lymphocytes % (Manual) (13.4-35.0) % Nucleated RBC % (0.0-0.9) % Seg Neutrophils # Man (1.8-7.7) K/mm3 Lymphocytes # (Manual) (1.2-5.4) K/mm3 PT (12.2-14.9) Sec. INR (0.87-1.13) APTT (24.2-36.6) Sec. Sodium (137-145) mmol/L Potassium 5.8 H (3.6-5.0) mmol/L Chloride 97.8 L (98-107) mmol/L Carbon Dioxide 18 L (22-30) mmol/L BUN 133 H (7-17) mg/dL Creatinine 3.6 H (0.6-1.2) mg/dL Glucose 234 H (65-100) mg/dL POC Glucose 211 H (70-105) mg/dL Calcium 7.4 L D (8.4-10.2) mg/dL AST (5-40) units/L ALT (7-56) units/L Alkaline Phosphatase (35-129) units/L Troponin T 0.444 H* (0.00-0.029) ng/mL Total Protein (6.3-8.2) g/dL Albumin (3.9-5) g/dL 05/09/21 05/10/21 05/10/21 Range/Units 23:15 04:51 04:51 WBC 20.4 H (4.5-11.0) K/mm3 RBC 2.32 L (3.65-5.03) M/mm3 Hgb 7.2 L (10.1-14.3) gm/dl Hct 24.0 L (30.3-42.9) % MCV 103 H (79-97) fl RDW 18.4 H (13.2-15.2) % Plt Count 96 L (140-440) K/mm3 Seg Neuts % (Manual) 87.0 H (40.0-70.0) % Lymphocytes % (Manual) 2.0 L (13.4-35.0) % Nucleated RBC % 8.0 H (0.0-0.9) % Seg Neutrophils # Man 0.0 L (1.8-7.7) K/mm3 Lymphocytes # (Manual) 0.0 L (1.2-5.4) K/mm3 PT (12.2-14.9) Sec. INR (0.87-1.13) APTT (24.2-36.6) Sec. Sodium 146 H (137-145) mmol/L Potassium 7.0 H* D (3.6-5.0) mmol/L Chloride 92.9 L (98-107) mmol/L Carbon Dioxide 21 L (22-30) mmol/L BUN 142 H (7-17) mg/dL Creatinine 4.0 H (0.6-1.2) mg/dL Glucose 297 H (65-100) mg/dL POC Glucose 227 H (70-105) mg/dL Calcium 7.1 L (8.4-10.2) mg/dL AST 8239 H (5-40) units/L ALT 3058 H (7-56) units/L Alkaline Phosphatase 172 H (35-129) units/L Troponin T (0.00-0.029) ng/mL Total Protein 3.3 L D (6.3-8.2) g/dL Albumin 1.5 L (3.9-5) g/dL /03/25 Range/Units 05:01 WBC (4.5-11.0) K/mm3 RBC (3.65-5.03) M/mm3 Hgb (10.1-14.3) gm/dl Hct (30.3-42.9) % MCV (79-97) fl RDW (13.2-15.2) % Plt Count (140-440) K/mm3 Seg Neuts % (Manual) (40.0-70.0) % Lymphocytes % (Manual) (13.4-35.0) % Nucleated RBC % (0.0-0.9) % Seg Neutrophils # Man (1.8-7.7) K/mm3 Lymphocytes # (Manual) (1.2-5.4) K/mm3 PT (12.2-14.9) Sec. INR (0.87-1.13) APTT (24.2-36.6) Sec. Sodium (137-145) mmol/L Potassium (3.6-5.0) mmol/L Chloride (98-107) mmol/L Carbon Dioxide (22-30) mmol/L BUN (7-17) mg/dL Creatinine (0.6-1.2) mg/dL Glucose (65-100) mg/dL POC Glucose 224 H (70-105) mg/dL Calcium (8.4-10.2) mg/dL AST (5-40) units/L ALT (7-56) units/L Alkaline Phosphatase (35-129) units/L Troponin T (0.00-0.029) ng/mL Total Protein (6.3-8.2) g/dL Albumin (3.9-5) g/dL Assessment and Plan Cultures: Blood culture 05/03/2021 Klebsiella oxytoca Blood culture 05/09/2021 no growth so far Urine culture 05/03/2021 gram-negative cornell Sputum culture 05/03/2021 Klebsiella pneumonia A/P: 56-year-old female past medical history CVA, seizures admitted with altered mental status. Now critically ill in the ICU #SIRS/sepsis: Patient is unrespeonsive in the ICU. Had a low grade temperature a few days ago, none since. White count is elevated likely in the setting of coding 3 times. Previous bacteremia. Not currently on antibiotics. #Klebsiella bacteremia: completed cefepime. #Acute hypoxic respiratory failure: on the vent Recs: -Follow up blood cultures -No need for antibiotics at the present time. SIRS likely secondary to critical illness/coding, and antibiotics will not improve her outcome or quality of life. -Encourage family to re-consider goals of care Grim prognosis. Thank you for the consult, we will continue to follow. MD Vivek [facility] ([facility] O: [phone] F: [phone]
--- NOTE | 2021-05-10 11:55 | Consultation ---
<CALI GARCIA - Last Filed: 05/10/21 15:38> History of Present Illness Consult date: 05/10/21 Requesting physician: DALY GOMES Consult reason: cardiac arrest History of present illness: This patient is a 66-year-old female with significant history of hypertension, hyperlipidemia, history of CVA with left-sided weakness. She is previously unknown to our practice. Patient presents to [facility] ER via EMS as possible stroke alert with new onset of generalized tonic-clonic seizure activity. Patient was intubated to protect airway in ER. Patient was admitted as acute respiratory failure and found to have multiple PTE's. Cardiology is consulted on hospital admission day 18 after patient experienced multiple cardiac arrest events with ROSC over past 24 hours. Patient is currently intubated and sedated thus HPI is obtained via the chart. Currently requiring 5 vasopressors to maintain hemodynamic stability. Patient was also found to be severely anemic and thrombocytopenic with no known source of blee ding. Patient is also severely hyperkalemic and postarrest state. No previous diagnostics available for review. Past History Past Medical History: hypertension, hyperlipidemia, stroke, other (See HPI) Social history: lives with family Medications and Allergies Allergies Allergy/AdvReac Type Severity Reaction Status Date / Time No Known Allergies Allergy Unverified 03/04/19 19:33 Home Medications Medication Instructions Recorded Confirmed Last Taken Type Lipitor 40 mg PO QHS #30 03/10/19 04/25/21 Unknown Rx Aspirin 300 mg PO QDAY 04/25/21 04/25/21 Unknown History Aspirin [Aspirin BABY CHEW TAB] 81 mg PO QDAY 04/25/21 04/25/21 Unknown History Sertraline [Zoloft] 50 mg PO QDAY 04/25/21 04/25/21 Unknown History amLODIPine 10 mg PO QDAY 04/25/21 04/25/21 Unknown History hydroCHLOROthiazide 12.5 mg PO QDAY 04/25/21 04/25/21 Unknown History [Hydrochlorothiazide] Active Meds: Active Medications Acetaminophen (Acetaminophen 325 Mg Tab) 650 mg PO Q4H PRN PRN Reason: Pain MILD(1-3)/Fever >100.5/[facility] Last Admin: 05/06/21 04:04 Dose: 650 mg Documented by: Acetaminophen (Acetaminophen 650 Mg Rect Supp) 650 mg SC Q6H PRN PRN Reason: Fever>100.5 Lipase/Protease/Amylase (Lipase 10,500/Protease 25,000/Amylase 43,750 (Units) Dr Ryan) 1 each FEEDTUBE PRN PRN PRN Reason: For Clogged Feeding Tube Arformoterol Tartrate (Arformoterol 15 Mcg/2 Ml Nebu) 15 mcg IH Q12HRT [facility] Last Admin: 05/10/21 08:30 Dose: 15 mcg Documented by: Aspirin (Aspirin 325 Mg Tab) 325 mg PO QDAY [facility] Last Admin: 05/09/21 10:32 Dose: 325 mg Documented by: Atorvastatin Calcium (Atorvastatin 40 Mg Tab) 40 mg PO QHS [facility] Last Admin: 05/09/21 21:31 Dose: 40 mg Documented by: Budesonide (Budesonide 0.5 Mg/2 Ml Nebu) 0.5 mg IH Q12HRT [facility] Last Admin: 05/10/21 08:30 Dose: 0.5 mg Documented by: Dextrose (Dextrose 50% In Water (25gm) 50 Ml Syringe) 50 ml IV Q30MIN PRN; Protocol PRN Reason: Hypoglycemia Last Admin: 05/09/21 04:22 Dose: 50 ml Documented by: Famotidine (Famotidine 20 Mg Tab) 20 mg PO DAILY [facility] Last Admin: 05/10/21 10:37 Dose: 20 mg Documented by: Heparin Sodium (Porcine) (Heparin 10,000 Units/10 Ml Vial) 3,500 unit 40 unit/kg (3500 unit) IV Q6H PRN PRN Reason: Anti-Xa Assay < 0.1 units/ml Hydralazine HCl (Hydralazine 20 Mg/1 Ml Inj) 10 mg IV Q4H PRN PRN Reason: Hypertension Hydrophilic Ointment (Lip Therapy Vaseline) 1 applic TP Q2HR PRN PRN Reason: Dry Lips Vasopressin 20 unit/ Sodium (Chloride) 101 mls @ 9.09 mls/hr IV TITR [facility]; Protocol Last Admin: 05/10/21 10:37 Dose: 0.03 units/min, 9.09 mls/hr Documented by: Phenylephrine HCl 100 mg/ (Sodium Chloride) 100 mls @ 3 mls/hr IV TITR [facility]; Protocol Last Titration: 05/09/21 14:00 Dose: 0 mcg/min, 0 mls/hr Documented by: Epinephrine 8 mg/ Sodium (Chloride) 250 mls @ 3.75 mls/hr IV TITR [facility]; Protocol Last Titration: 05/09/21 13:00 Dose: 0 mcg/min, 0 mls/hr Documented by: Dopamine HCl/Dextrose (Intropin Drip 800 Mg/D5w 250 Ml) 800 mg in 250 mls @ 3.3 mls/hr IV TITR [facility]; Protocol Last Admin: 05/10/21 06:25 Dose: 18 mcg/kg/min, 29.7 mls/hr Documented by: Sodium Bicarbonate 150 meq/ (Dextrose) 1,150 mls @ 125 mls/hr IV DIRECT [facility] Last Admin: 05/10/21 05:38 Dose: 125 mls/hr Documented by: NORepinephrine/NS 8 MG-250 ML (Norepinephrine/Ns 8 Mg-250 Ml (Double Conc)) 8 mg in 250 mls @ 3.75 mls/hr IV TITRATE [facility]; Protocol Last Admin: 05/10/21 07:59 Dose: 24 mcg/min, 45 mls/hr Documented by: Heparin Sodium/Sodium Chloride (Heparin/ 0.45% Nacl-25,000 Unit/500 Ml) 25,000 unit in 500 mls @ 26 mls/hr IV TITR [facility]; Protocol Last Admin: 05/09/21 22:06 Dose: 1,300 units/hr, 26 mls/hr Documented by: Insulin Human Lispro (Insulin Lispro 100 Unit/Ml) 0 unit SUB-Q Q6HR [facility]; P rotocol Last Admin: 05/10/21 05:37 Dose: Not Given Documented by: Levetiracetam (Levetiracetam 500 Mg/5 Ml Oral Liqd) 750 mg PO BID [facility] Last Admin: 05/10/21 10:37 Dose: 750 mg Documented by: Lorazepam (Lorazepam 2 Mg/Ml Vial) 1 mg IV Q6H PRN PRN Reason: Agitation/SEIZURES Methylprednisolone Sodium Succinate (Methylprednisolone Sod Succinate 40 Mg/1 Ml Inj) 60 mg IV Q6H [facility] Last Admin: 05/10/21 05:38 Dose: 60 mg Documented by: Multi-Ingred Cream/Lotion/Oil/Oint (Mineral Oil/Petrolatum, White Ophth Oint 3.5 Gm) 1 applic OU Q4HR PRN PRN Reason: Dry Eye(s) Ondansetron HCl (Ondansetron 4 Mg/2 Ml Inj) 4 mg IV Q6H PRN PRN Reason: Nausea And Vomiting Last Admin: 05/03/21 18:40 Dose: 4 mg Documented by: Polyethylene Glycol (Polyethylene Glycol 3350 17 Gm Powder) 17 gm PO QDAY PRN PRN Reason: Constipation Quetiapine Fumarate (Quetiapine 25 Mg Tab) 25 mg PO BID [facility] Last Admin: 05/10/21 10:37 Dose: 25 mg Documented by: Senna/Docusate Sodium (Sennosides/Docusate Sodium 8.6/50 Mg Tab) 1 tab FEEDTUBE QHS [facility] Last Admin: 05/09/21 21:32 Dose: 1 tab Documented by: Simple Syrup (Simple Syrup 15 Ml) 15 ml FEEDTUBE PRN PRN PRN Reason: Hypoglycemia Simple Syrup (Simple Syrup 15 Ml) 30 ml FEEDTUBE PRN PRN PRN Reason: Hypoglycemia Sodium Bicarbonate (Sodium Bicarbonate 325 Mg Tab) 325 mg FEEDTUBE PRN PRN PRN Reason: For Clogged Feeding Tube Sodium Chloride (Sodium Chloride 0.9% 10 Ml Flush Syringe) 10 ml IV BID [facility] Last Admin: 05/09/21 21:33 Dose: 10 ml Documented by: Sodium Chloride (Sodium Chloride 0.9% 10 Ml Flush Syringe) 10 ml IV PRN PRN PRN Reason: LINE FLUSH Last Admin: 05/09/21 05:36 Dose: 10 ml Documented by: Sodium Polystyrene Sulfonate (Sodium Polystyrene 15 Gm/60 Ml Oral Liqd) 60 gm SC ONCE NR Stop: 05/10/21 12:00 Last Admin: 05/10/21 10:38 Dose: 60 gm Documented by: Review of Systems ROS unobtainable: due to endotracheal tube, due to mental status Physical Examination Last Vital Signs Temp 94.6 F L 05/10/21 08:00 Pulse 106 H 05/10/21 11:22 Resp 27 H 05/10/21 10:01 BP 127/106 05/10/21 10:01 Pulse Ox 0 L 05/10/21 11:22 General appearance: other (Intubated and sedated) HEENT: Positive: Normocephaly, Mucus Membranes Moist Neck: Positive: neck supple, trachea midline Cardiac: Positive: Regular Rhythm, S1/S2 Lungs: Positive: Oxygen, Ventilated Respirations Neuro: Positive: Other (Intubated and sedated) Abdomen: Positive: Unremarkable, Soft Skin: Negative: Rash, Wound Musculoskeletal: other (Intubated and sedated) Extremities: Present: upper extr. pulses, lower extr. pulses. Absent: edema Results 05/10/21 13:30 05/10/21 13:30 Cardiac Enzymes 05/10/21 Range/Units 04:51 AST 8239 H (5-40) units/L Coagulation 05/09/21 Range/Units 15:30 PT 29.2 H (12.2-14.9) Sec. INR 2.74 H (0.87-1.13) APTT 44.9 H (24.2-36.6) Sec. CBC 05/09/21 05/10/21 Range/Units 15:30 04:51 WBC 20.4 H (4.5-11.0) K/mm3 RBC 2.32 L (3.65-5.03) M/mm3 Hgb 7.6 L 7.2 L (10.1-14.3) gm/dl Hct 25.4 L 24.0 L (30.3-42.9) % Plt Count 114 L 96 L (140-440) K/mm3 Comprehensive Metabolic Panel 05/09/21 05/10/21 Range/Units 15:30 04:51 Sodium 143 146 H (137-145) mmol/L Potassium 5.8 H 7.0 H* D (3.6-5.0) mmol/L Chloride 97.8 L 92.9 L (98-107) mmol/L Carbon Dioxide 18 L 21 L (22-30) mmol/L BUN 133 H 142 H (7-17) mg/dL Creatinine 3.6 H 4.0 H (0.6-1.2) mg/dL Glucose 234 H 297 H (65-100) mg/dL Calcium 7.4 L D 7.1 L (8.4-10.2) mg/dL AST 8239 H (5-40) units/L ALT 3058 H (7-56) units/L Alkaline Phosphatase 172 H (35-129) units/L Total Protein 3.3 L D (6.3-8.2) g/dL Albumin 1.5 L (3.9-5) g/dL - Imaging and Cardiology Echo: report reviewed (Echocardiogram 04/22/2021: LVEF is 50 to 55%. LV normal size. LV SF normal. Mild diastolic dysfunction. RV SF normal. Saline bubble contrast does not demonstrate PFO. Mild TR, RVSP 41 mmHg.) EKG: report reviewed, image reviewed Assessment and Plan Hemodynamic instability s/p cardiac arrest with ROSC * Currently requiring 5 vasopressor agents to maintain hemodynamic stability. * Review of telemetry shows sinus tach at this point. Continue monitoring telemetry * Troponins are noted to be elevated x1. Post arrest twelve-lead shows sinus tachycardia with no acute ischemic changes. Low index of suspicion of cardiogenic cause of cardiac arrest. We will continue to trend troponins. * Due to hemodynamic instability and comorbidities will plan for conservative cardiac management at this point. Acute respiratory failure with hypoxia secondary to multiple PTE * Intubated and sedated management per pulmonary * Anticoagulated with heparin drip Severe hyperkalemia * Nephrology recommendations reviewed: Due to multiple cardiac arrests, patient is a poor candidate for VERIFICATION MANAGER/HD therapy. We will continue to treat medically. Severe anemia with thrombocytopenia * Management per primary team Altered mental status in setting of new onset seizures * Neurology is following DVT prophylaxis * Currently on heparin drip Follow-up labs reveal critical lab value potassium 8.5 hyperkalemic. Discussed with tester equipment Dr. Arrington, will initiate insulin regular, IV 10 units, D50 W as needed, albuterol nebulized albuterol treatments x1 day. Further management will be addressed per pulmonology and nephrology. Patient has guarded to poor prognosis. Continue to monitor on telemetry. Will follow This patient was seen in conjunction with Dr Jose Lal who agrees with this assessment and plan of care - Patient Problems (1) LIZBETH (acute kidney injury) Status: Acute (2) Acute respiratory failure with hypoxia Status: Acute (3) DVT prophylaxis Status: Acute (4) Hyperkalemia Status: Acute (5) Pulmonary embolism Status: Acute Qualifiers: Acute cor pulmonale presence: without acute cor pulmonale (6) Seizures Status: Acute <KAPIL LAL - Last Filed: 05/11/21 10:20> Physical Examination Vital Signs Temp Pulse Resp BP Pulse Ox 98.2 F 125 H 35 H 112/71 67 L 04/21/21 14:32 04/21/21 14:32 04/21/21 14:32 04/21/21 14:32 04/21/21 14:32 Results 05/10/21 13:30 05/10/21 13:30 CBC 05/10/21 Range/Units 13:30 Hgb 6.1 L (10.1-14.3) gm/dl Hct 21.9 L (30.3-42.9) % Comprehensive Metabolic Panel 05/10/21 Range/Units 13:30 Potassium 8.5 H* D (3.6-5.0) mmol/L Assessment and Plan Patient seen and examined. Agree with above. Critically ill. At least 30 minutes of critical care time was spent on this patient prior to withdrawal of care.
[2021-05-10] MEDS ORDERED: PANTOPRAZOLE 40 MG INJ IV SCH (12:00)
[2021-05-10] MEDS: ASPIRIN 325 MG TAB PO SCH (12:37)
--- NOTE | 2021-05-10 12:57 | Electrocardiograph Report ---
[facility] Test Date: 2021-05-09 Test Time: 09:08:18 Pat Name: TYSHAWN DARBY Department: Room: A261 1 Gender: F Greenskeeper: JESSICA : 1955 Requested By: DALY GOMES Order Number: [id number] Reading MD: Benjamin Sifuentes Measurements Intervals [place] Rate: 137 P: 72 MT: 119 QRS: 78 QRSD: 96 T: 31 QT: 262 QTc: 397 Interpretive Statements Sinus tachycardia Compared to ECG 05/02/2021 20:39:15 No significant change Electronically Signed On 05-10-2021 12:57:22 EDT by Benjamin Sifuentes
[2021-05-10] MEDS: FREE WATER PO SCH ×2 (13:41→17:01)
[2021-05-10 14:10] LABS: Hematocrit 21.9 % (30.3-42.9); Hemoglobin 6.1 gm/dl (10.1-14.3)
--- NOTE | 2021-05-10 14:44 | Progress Note ---
Assessment and Plan This is a 66-year-old female with HTN, HLD, prior CVA with resulting left-sided weakness present today with emergency department via EMS for AMS and new onset seizures with increased left-sided weakness. Upon arrival to the emergency room patient was intubated for airway protection and hypoxia. Patient was admitted to the hospital service with new onset seizures, acute hypoxic respiratory failure with pulmonary embolism on CTA, acute kidney injury, rhabdomyolysis. Assessment and plan: --Status post cardiac arrest x3 Patient had a return of pulse after initiation of ACLS Currently patient on multiple pressors Had discussion with family and want to proceed with full code --New onset sz; metabolic encephalopathy new onset seizures - on keppra PERRL; no commands but remains sedated on prop and ativan CT head on admit- IMPRESSION: Encephalomalacia in the right temporal lobe, frontal lobe; no acute/subacute parenchymal lesions MRI Encephalomalacia in the right cerebral hemisphere - see report will need repeat CT per neuro when PEEP is dec; Dr Arrington has told RN's not to take to CT on level of vent support she is requiring daily SAT limited by hypoxia RAAS goal neg 4 seroquel BID; following QT case management following family updated daily on plan of care --History of CVA with left-sided weakness Supportive care, neuro consulted, patient currently intubated asa/statin --hypotension likely volume depletion/sepsis or combination of the 2 echo 04/22 see report -normal biV function s/p adenosine and amiodarone on 05/03 for some tachycardia Vasopressors for blood pressure support --Acute hypoxic resp failure likely due to PE and ILD present on CTA; Klebsiella pneumonia, refractory hypoxia requiring MV; permissive hypercapnia to Ph of 7.2 intubated in ER; remains ventilated Patient on 100% FiO2 Critical care following Serial ABGs CT noted - a/c lung disease evident with ILD, PE's noted US BLE neg for DVT trending lactate/ABG and chest xrays continue nebs continue solumedrol will likely need trach Antibiotic therapy --illeus , tube feeding on hold since yesterday afternoon Continue IV fluid hydration for now, continue PPI --LIZBETH likely due to ATRadha Corral; exchange 05/05 strict I/O trend and replace electrolytes as needed trend BUN/CR/CK Nephrology reconsulted, poor candidate for hemodialysis --Hyperkalemia, placed on bicarbonate drip, order for calcium chloride, Kayexalate and insulin Nephrology following, repeat BMP --Hypernatremia, resolved with IV fluid -- acute Pulmonary emboli s/p VTE on lovenox BID -now on hold for severe anemia requiring transfusion trending coags/Xa trend CBC no bleeding on exam LE dopplers neg for DVT; positive CTA for PE on admit -- lactic acidosis, GNR UTI, gram-negative cornell bacteremia covid neg afebrile but lactic acid high and pt now on NE and vaso; also ST on monitor abx: cefepime (vanco d/c d/t UC with GNR), Corral change 05/05 continue to trend temp and WBC curve --Severe anemia, status post 2 units of transfusion, continue to monitor H&H and transfuse as needed --Pneumonia with Klebsiella, treated with 7 days course of antibiotics --DVT prophylaxis, with SCD The high probability of a clinically significant, sudden or life threatening deterioration of the [respiratory] system(s) required my full and direct attention, intervention and personal management. The aggregate critical care time was [35] minutes. This time is in addition to time spent performing reported procedures but includes the following: [x] Data Review and interpretation [x] Patient assessment and monitoring of vital signs [x] Documentation [x] Medication orders and management Daily clinical course: 04-30 NO ACUTE EVENTS OVERNIGHT; diuresis with 40 mg IV lasix 05-01 no acute events overnight; diuresis with 40 mg IV lasix 05-02: diuresis with lasix 40 mg IV during the day - pt still grossly pos per I/O; and pt weight, overnight pt persistently tachycardic given adenosine and amio gtt 05/04: Nephrology will try Lasix, [facility] adjust advanced to APRV to help with ventilation. Will obtain BMP at 2100. [facility] okay with SPO2 greater than 88, pH of greater than 7.2. Hypernatremia to 160, started on D5 W, severe hypercapnia noted on ABG and patient ventilator settings was changed. Lactic acidosis noted with hyperglycemia. Hyperkalemia noted which was medically treated. 05/05: Lasix again today per nephro., increase in Plow to 30 post abg per ccm, increase in D5W gtt and FWF q200 and will restart TF. Vanco d/c r/t GNR in urine and corral changed. Remains on levo and vaso. 05/06: BP steadily decreasing. Levophed gtt titrated up, stop TF, infuse 2 units of PRBC ,and gave 1 L bolus of LR. Nephro and PCCM recs noted. 05/07: H&H stable after transfusing 2 minutes packed RBC yesterday. Creatinine slightly elevated today -nephrology following. We will repeat BMP tomorrow. Sodium level normalized. Patient remains on mechanical ventilation with Levophed. 05/08: Patient is stable, critical care recommended to continue to hold Lovenox/heparin for anemia. Patient remains on pressor support. Patient on maximal ventilation support still experiencing hypoxia. Had a discussion with the daughter and critical care attending family wants to continue full CODE STATUS. Renal function declining, nephrology following. 05/09: Patient coded twice last night. Patient had another cardiac arrest this am with spontaneous return of circulation after ACLS initiation and status post 1x epi, 1 xbicarb and 1 x calcium chloride. discussed with patient brother at bedside and updated daughter by phone following the cardiac arrest. Discussed with family about poor prognosis as patient now with multiorgan failure : Severe hypoxic respiratory failure with interstitial lung disease bilateral multiple PE, acute renal failure with hyperkalemia, severe septic shock, metabolic encephalopathy. Family verbalized understanding and wanted to proceed with full CODE STATUS. Ordered for stat CBC BMP. Order for bicarbonate drip Continue to follow clinically. Extremely poor prognosis. We will also initiate on heparin drip for new diagnosis of pulmonary embolism (initially was on therapeutic dose of Lovenox then was on hold for anemia), repeat culture 05/10/21: Persistently hyperkalemic with declining renal function despite of appropriate medical management. Patient remains on bicarbonate drip, given Kayexalate, insulin, calcium chloride. Poor candidate for hemodialysis as patient being on multiple pressors. Discussed poor prognosis and recommended comfort care/hospice with family but they declined. Patient now with multiorgan failure: Refractory hyperkalemia with ATN, refractory hypotension with severe shock currently on multiple pressors, mechanically ventilated with 100% FiO2 and remain very hypoxic, possible anoxic encephalopathy following multiple cardiac arrest, unable to anticoagulate for pulmonary embolism due to declining H&H. Patient noted to have bloody aspirate from the OGT, stopped heparin, initiated on Protonix IV, monitor H&H, will transfuse as needed. Extremely poor prognosis and unlikely patient will survive. Family well aware of patient's clinical condition but wish to continue full code. Subjective Date of service: 05/10/21 Principal diagnosis: Acute kidney injury, rhabdomyolysis Interval history: Patient seen and examined. Medical records and medication list reviewed. Patient remains on pressor support and mechanical ventilation Discussed plan of care at bedside with patient's RN. Discussed plan of care with patient family by phone and wants to continue full code spoke with nursing unit clerk and not a candidate for HD as she is on multiple pressors Objective - Exam Narrative Exam: General appearance: Present: Remains on mechanical ventilation, unresponsive, puffy face - EENT Eyes: Present: Pupil not reactive - Neck Neck: Present: supple - Respiratory Respiratory effort: on vent Respiratory: bilateral: diminished - Cardiovascular Rhythm: tachycardic - Extremities Extremities: no ischemia, pulses symmetrical Peripheral Pulses: within normal limits, generalized anasarca - Abdominal General gastrointestinal: soft, non-tender - Integumentary Integumentary: Present: warm, dry - Psychiatric Psychiatric: other (unresponsive) - Neurologic Neurologic: other (unresponsive) - Constitutional Vitals: Vital Signs - 12hr 05/10/21 05/10/21 05/10/21 02:45 03:00 03:15 Temperature Pulse Rate 113 H 112 H 113 H Pulse Rate [ Anterior Bilateral] Pulse Rate [ From Monitor] Respiratory 26 H 26 H 25 H Rate Respiratory Rate [Anterior Bilateral] Blood Pressure 115/48 117/48 101/38 O2 Sat by Pulse 78 L 77 L Oximetry 05/10/21 05/10/21 05/10/21 03:31 03:37 03:45 Temperature 97.6 F Pulse Rate 112 H 112 H Pulse Rate [ Anterior Bilateral] Pulse Rate [ From Monitor] Respiratory 25 H 25 H Rate Respiratory Rate [Anterior Bilateral] Blood Pressure 117/78 114/67 O2 Sat by Pulse 58 L Oximetry 05/10/21 05/10/21 05/10/21 04:00 04:15 04:30 Temperature Pulse Rate 112 H 112 H 112 H Pulse Rate [ Anterior Bilateral] Pulse Rate [ 115 H From Monitor] Respiratory 25 H 25 H 25 H Rate Respiratory Rate [Anterior Bilateral] Blood Pressure 120/74 120/74 122/64 O2 Sat by Pulse 83 L Oximetry 08/06/21 08/06/21 08/06/21 04:31 04:45 05:01 Temperature Pulse Rate 112 H 112 H 111 H Pulse Rate [ Anterior Bilateral] Pulse Rate [ From Monitor] Respiratory 25 H 25 H Rate Respiratory Rate [Anterior Bilateral] Blood Pressure 122/64 119/56 115/68 O2 Sat by Pulse 0 L 78 L 94 Oximetry 05/10/21 05/10/21 05/10/21 05:15 05:31 05:45 Temperature Pulse Rate 109 H 110 H 110 H Pulse Rate [ Anterior Bilateral] Pulse Rate [ From Monitor] Respiratory 25 H 25 H 25 H Rate Respiratory Rate [Anterior Bilateral] Blood Pressure 114/58 114/58 114/58 O2 Sat by Pulse 66 L Oximetry 05/10/21 05/10/21 05/10/21 06:01 06:15 06:31 Temperature Pulse Rate 110 H 110 H 110 H Pulse Rate [ Anterior Bilateral] Pulse Rate [ From Monitor] Respiratory 26 H 25 H 25 H Rate Respiratory Rate [Anterior Bilateral] Blood Pressure 114/58 93/41 93/41 O2 Sat by Pulse Oximetry 05/10/21 05/10/21 05/10/21 06:46 07:01 07:15 Temperature Pulse Rate 110 H 110 H 110 H Pulse Rate [ Anterior Bilateral] Pulse Rate [ From Monitor] Respiratory 26 H 26 H 25 H Rate Respiratory Rate [Anterior Bilateral] Blood Pressure 151/77 151/77 119/60 O2 Sat by Pulse 95 Oximetry 05/10/21 05/10/21 05/10/21 07:31 07:45 08:00 Temperature 94.6 F L Pulse Rate 109 H 109 H 109 H Pulse Rate [ Anterior Bilateral] Pulse Rate [ From Monitor] Respiratory 25 H 25 H 26 H Rate Respiratory Rate [Anterior Bilateral] Blood Pressure 119/72 119/60 98/64 O2 Sat by Pulse 76 L Oximetry 05/10/21 05/10/21 05/10/21 08:15 08:22 08:30 Temperature Pulse Rate 109 H 108 H Pulse Rate [ 107 H Anterior Bilateral] Pulse Rate [ From Monitor] Respiratory 26 H Rate Respiratory 30 H Rate [Anterior Bilateral] Blood Pressure 113/81 113/81 O2 Sat by Pulse 0 L Oximetry 05/10/21 05/10/21 05/10/21 08:31 08:45 09:01 Temperature Pulse Rate 107 H 107 H 106 H Pulse Rate [ Anterior Bilateral] Pulse Rate [ From Monitor] Respiratory 27 H 26 H 26 H Rate Respiratory Rate [Anterior Bilateral] Blood Pressure 113/81 98/64 115/70 O2 Sat by Pulse Oximetry 05/10/21 05/10/21 05/10/21 09:15 09:31 09:45 Temperature Pulse Rate 106 H 105 H 105 H Pulse Rate [ Anterior Bilateral] Pulse Rate [ From Monitor] Respiratory 25 H 27 H 26 H Rate Respiratory Rate [Anterior Bilateral] Blood Pressure 115/70 115/70 98/64 O2 Sat by Pulse Oximetry 05/10/21 05/10/21 05/10/21 10:01 10:15 10:31 Temperature Pulse Rate 104 H 103 H 103 H Pulse Rate [ Anterior Bilateral] Pulse Rate [ From Monitor] Respiratory 27 H 25 H 25 H Rate Respiratory Rate [Anterior Bilateral] Blood Pressure 127/106 127/106 103/73 O2 Sat by Pulse Oximetry 05/10/21 05/10/21 05/10/21 10:45 11:00 11:15 Temperature Pulse Rate 102 H 106 H 106 H Pulse Rate [ Anterior Bilateral] Pulse Rate [ From Monitor] Respiratory 25 H 26 H 25 H Rate Respiratory Rate [Anterior Bilateral] Blood Pressure 88/68 106/65 106/65 O2 Sat by Pulse Oximetry 05/10/21 05/10/21 05/10/21 11:22 11:31 11:45 Temperature Pulse Rate 106 H 106 H 103 H Pulse Rate [ Anterior Bilateral] Pulse Rate [ From Monitor] Respiratory 26 H 26 H Rate Respiratory Rate [Anterior Bilateral] Blood Pressure 106/65 148/106 O2 Sat by Pulse 0 L Oximetry 05/10/21 05/10/21 05/10/21 12:00 12:01 12:15 Temperature 93.9 F L Pulse Rate 101 H 100 H Pulse Rate [ Anterior Bilateral] Pulse Rate [ From Monitor] Respiratory 21 Rate Respiratory Rate [Anterior Bilateral] Blood Pressure 107/59 107/59 O2 Sat by Pulse Oximetry 05/10/21 05/10/21 05/10/21 12:30 12:45 13:01 Temperature Pulse Rate 98 H 69 95 H Pulse Rate [ Anterior Bilateral] Pulse Rate [ From Monitor] Respiratory 25 H 25 H 25 H Rate Respiratory Rate [Anterior Bilateral] Blood Pressure 115/68 115/68 115/68 O2 Sat by Pulse 80 L Oximetry 05/10/21 05/10/21 05/10/21 13:15 13:31 13:45 Temperature Pulse Rate 94 H 93 H 92 H Pulse Rate [ Anterior Bilateral] Pulse Rate [ From Monitor] Respiratory 25 H 25 H 24 Rate Respiratory Rate [Anterior Bilateral] Blood Pressure 115/68 115/68 115/68 O2 Sat by Pulse 81 L Oximetry 05/10/21 05/10/21 05/10/21 14:01 14:15 14:21 Temperature Pulse Rate 90 89 89 Pulse Rate [ Anterior Bilateral] Pulse Rate [ From Monitor] Respiratory 25 H 25 H 25 H Rate Respiratory Rate [Anterior Bilateral] Blood Pressure 115/68 115/68 115/68 O2 Sat by Pulse Oximetry 05/10/21 14:25 Temperature Pulse Rate 89 Pulse Rate [ Anterior Bilateral] Pulse Rate [ From Monitor] Respiratory 25 H Rate Respiratory Rate [Anterior Bilateral] Blood Pressure 115/68 O2 Sat by Pulse Oximetry - Labs CBC & Chem 7: 05/10/21 13:30 05/10/21 13:30 Labs: Abnormal lab results 05/09/21 05/09/21 05/09/21 Range/Units 11:38 15:30 15:30 WBC (4.5-11.0) K/mm3 RBC (3.65-5.03) M/mm3 Hgb 7.6 L (10.1-14.3) gm/dl Hct 25.4 L (30.3-42.9) % MCV (79-97) fl RDW (13.2-15.2) % Plt Count 114 L (140-440) K/mm3 Seg Neuts % (Manual) (40.0-70.0) % Lymphocytes % (Manual) (13.4-35.0) % Nucleated RBC % (0.0-0.9) % Seg Neutrophils # Man (1.8-7.7) K/mm3 Lymphocytes # (Manual) (1.2-5.4) K/mm3 PT 29.2 H (12.2-14.9) Sec. INR 2.74 H (0.87-1.13) APTT 44.9 H (24.2-36.6) Sec. Sodium (137-145) mmol/L Potassium (3.6-5.0) mmol/L Chloride (98-107) mmol/L Carbon Dioxide (22-30) mmol/L BUN (7-17) mg/dL Creatinine (0.6-1.2) mg/dL Glucose (65-100) mg/dL POC Glucose 139 H (70-105) mg/dL Calcium (8.4-10.2) mg/dL AST (5-40) units/L ALT (7-56) units/L Alkaline Phosphatase (35-129) units/L Troponin T (0.00-0.029) ng/mL Total Protein (6.3-8.2) g/dL Albumin (3.9-5) g/dL 05/09/21 05/09/21 05/09/21 Range/Units 15:30 15:30 17:32 WBC (4.5-11.0) K/mm3 RBC (3.65-5.03) M/mm3 Hgb (10.1-14.3) gm/dl Hct (30.3-42.9) % MCV (79-97) fl RDW (13.2-15.2) % Plt Count (140-440) K/mm3 Seg Neuts % (Manual) (40.0-70.0) % Lymphocytes % (Manual) (13.4-35.0) % Nucleated RBC % (0.0-0.9) % Seg Neutrophils # Man (1.8-7.7) K/mm3 Lymphocytes # (Manual) (1.2-5.4) K/mm3 PT (12.2-14.9) Sec. INR (0.87-1.13) APTT (24.2-36.6) Sec. Sodium (137-145) mmol/L Potassium 5.8 H (3.6-5.0) mmol/L Chloride 97.8 L (98-107) mmol/L Carbon Dioxide 18 L (22-30) mmol/L BUN 133 H (7-17) mg/dL Creatinine 3.6 H (0.6-1.2) mg/dL Glucose 234 H (65-100) mg/dL POC Glucose 211 H (70-105) mg/dL Calcium 7.4 L D (8.4-10.2) mg/dL AST (5-40) units/L ALT (7-56) units/L Alkaline Phosphatase (35-129) units/L Troponin T 0.444 H* (0.00-0.029) ng/mL Total Protein (6.3-8.2) g/dL Albumin (3.9-5) g/dL 05/09/21 05/10/21 05/10/21 Range/Units 23:15 04:51 04:51 WBC 20.4 H (4.5-11.0) K/mm3 RBC 2.32 L (3.65-5.03) M/mm3 Hgb 7.2 L (10.1-14.3) gm/dl Hct 24.0 L (30.3-42.9) % MCV 103 H (79-97) fl RDW 18.4 H (13.2-15.2) % Plt Count 96 L (140-440) K/mm3 Seg Neuts % (Manual) 87.0 H (40.0-70.0) % Lymphocytes % (Manual) 2.0 L (13.4-35.0) % Nucleated RBC % 8.0 H (0.0-0.9) % Seg Neutrophils # Man 0.0 L (1.8-7.7) K/mm3 Lymphocytes # (Manual) 0.0 L (1.2-5.4) K/mm3 PT (12.2-14.9) Sec. INR (0.87-1.13) APTT (24.2-36.6) Sec. Sodium 146 H (137-145) mmol/L Potassium 7.0 H* D (3.6-5.0) mmol/L Chloride 92.9 L (98-107) mmol/L Carbon Dioxide 21 L (22-30) mmol/L BUN 142 H (7-17) mg/dL Creatinine 4.0 H (0.6-1.2) mg/dL Glucose 297 H (65-100) mg/dL POC Glucose 227 H (70-105) mg/dL Calcium 7.1 L (8.4-10.2) mg/dL AST 8239 H (5-40) units/L ALT 3058 H (7-56) units/L Alkaline Phosphatase 172 H (35-129) units/L Troponin T (0.00-0.029) ng/mL Total Protein 3.3 L D (6.3-8.2) g/dL Albumin 1.5 L (3.9-5) g/dL 05/10/21 05/10/21 05/10/21 Range/Units 05:01 11:46 13:30 WBC (4.5-11.0) K/mm3 RBC (3.65-5.03) M/mm3 Hgb 6.1 L (10.1-14.3) gm/dl Hct 21.9 L (30.3-42.9) % MCV (79-97) fl RDW (13.2-15.2) % Plt Count (140-440) K/mm3 Seg Neuts % (Manual) (40.0-70.0) % Lymphocytes % (Manual) (13.4-35.0) % Nucleated RBC % (0.0-0.9) % Seg Neutrophils # Man (1.8-7.7) K/mm3 Lymphocytes # (Manual) (1.2-5.4) K/mm3 PT (12.2-14.9) Sec. INR (0.87-1.13) APTT (24.2-36.6) Sec. Sodium (137-145) mmol/L Potassium (3.6-5.0) mmol/L Chloride (98-107) mmol/L Carbon Dioxide (22-30) mmol/L BUN (7-17) mg/dL Creatinine (0.6-1.2) mg/dL Glucose (65-100) mg/dL POC Glucose 224 H 252 H (70-105) mg/dL Calcium (8.4-10.2) mg/dL AST (5-40) units/L ALT (7-56) units/L Alkaline Phosphatase (35-129) units/L Troponin T (0.00-0.029) ng/mL Total Protein (6.3-8.2) g/dL Albumin (3.9-5) g/dL 05/10/21 Range/Units 13:30 WBC (4.5-11.0) K/mm3 RBC (3.65-5.03) M/mm3 Hgb (10.1-14.3) gm/dl Hct (30.3-42.9) % MCV (79-97) fl RDW (13.2-15.2) % Plt Count (140-440) K/mm3 Seg Neuts % (Manual) (40.0-70.0) % Lymphocytes % (Manual) (13.4-35.0) % Nucleated RBC % (0.0-0.9) % Seg Neutrophils # Man (1.8-7.7) K/mm3 Lymphocytes # (Manual) (1.2-5.4) K/mm3 PT (12.2-14.9) Sec. INR (0.87-1.13) APTT (24.2-36.6) Sec. Sodium (137-145) mmol/L Potassium 8.5 H* D (3.6-5.0) mmol/L Chloride (98-107) mmol/L Carbon Dioxide (22-30) mmol/L BUN (7-17) mg/dL Creatinine (0.6-1.2) mg/dL Glucose (65-100) mg/dL POC Glucose (70-105) mg/dL Calcium (8.4-10.2) mg/dL AST (5-40) units/L ALT (7-56) units/L Alkaline Phosphatase (35-129) units/L Troponin T (0.00-0.029) ng/mL Total Protein (6.3-8.2) g/dL Albumin (3.9-5) g/dL HEART Score - HEART Score Age: 45-65 Risk factors: 1-2 risk factors Troponin: Troponin T 0.444 ng/mL (0.00-0.029) H* 05/09/21 15:30 - Critical Actions Critical Actions: 0-3 pts:0.9-1.7%risk of adverse cardiac event.Candidate for discharge
[2021-05-10] MEDS ORDERED: SODIUM CHLORIDE 0.9% 500 ML 500 ML IV NR (15:07)
[2021-05-10] MEDS: EPINEPHrine 1 MG/1 ML 8 MG in SODIUM CHLORIDE 0.9% 250ML 242 ML IV SCH (15:07)
[2021-05-10] MEDS: PHENYLEPHRINE 100 MG in SODIUM CHLORIDE 0.9% 90 ML IV SCH (15:07)
[2021-05-10] MEDS ORDERED: INSULIN REGULAR, HUMAN 100 UNITS/1 ML IV ONE (15:27)
--- NOTE | 2021-05-10 17:15 | Event Note ---
Date: 05/10/21 Family came to ICU today and wished to change code status to DNR and comfort care Patient at 5:06pm family was at bedside
[2021-05-10] MEDS: ALBUTEROL 2.5 MG/3 ML NEBU IH SCH (17:38)
[2021-05-10 19:21] VITALS: BP 113/87
--- NOTE | 2021-05-15 13:12 | Death Summary ---
Summary - Providers Date of service: 05/10/21 Consults: 04/21/21 15:47 Consult to Dietitian/Nutrition [CONS] Routine Physician Instructions: Reason For Exam: Reason for Consult: Evaluate nutritional intake 04/21/21 21:26 Consult to Physician [CONS] Routine Comment: Spoke with Dr. Arrington @ [id number] Consulting Provider: TEJAS ARRINGTON Physician Instructions: Reason For Exam: Respiratory failure 04/21/21 21:30 Consult to Dietitian/Nutrition [CONS] Routine Physician Instructions: Reason For Exam: Dobbhoff tube feeding Reason for Consult: Pt needs oral supplement 04/22/21 06:22 Consult to Physician [CONS] Routine Comment: Consulting Provider: HARRY PHILLIPS Physician Instructions: Reason For Exam: New onset seizures and possible CVA 04/22/21 06:42 Consult to Physician [CONS] Routine Comment: Consulting Provider: BAER COURTNEY Physician Instructions: Reason For Exam: LIZBETH 04/25/21 11:27 PICC Line Insertion [Consult to PICC Line RN] [CONS] Routine Reason For Exam: Central access. Type Line:: PICC 05/01/21 15:29 Consult to Physician [CONS] Routine Comment: neuro studies Consulting Provider: NOVA CLAY Physician Instructions: Reason For Exam: follow up from original consult on 04/22- regarding 05/03/21 12:27 Consult to Physician [CONS] Routine Comment: called office/ [place] Consulting Provider: BEAR COURTNEY Physician Instructions: Reason For Exam: hyperkalemia, lizbeth 05/09/21 13:55 Consult to Physician [CONS] Routine Comment: called office/ [place] Consulting Provider: JIA ALLAN Physician Instructions: Reason For Exam: sepsis 05/09/21 16:06 Consult to Physician [CONS] Routine Comment: called answ. serv/ sharona Consulting Provider: KAPIL LAL Physician Instructions: Reason For Exam: cardiac arrest Attending: DALY GOMES - summary Date of admission: 04/22/21 00:04 Date of : 05/10/21 Significant findings: This is a 66-year-old female with HTN, HLD, prior CVA with resulting left-sided weakness present today with emergency department via EMS for AMS and new onset seizures with increased left-sided weakness. Upon arrival to the emergency room patient was intubated for airway protection and hypoxia. Patient was admitted to the hospital service with new onset seizures, acute hypoxic respiratory failure with pulmonary embolism on CTA, acute kidney injury, rhabdomyolysis. Daily clinical course: 04-30 NO ACUTE EVENTS OVERNIGHT; diuresis with 40 mg IV lasix 05-01 no acute events overnight; diuresis with 40 mg IV lasix 05-02: diuresis with lasix 40 mg IV during the day - pt still grossly pos per I/O; and pt weight, overnight pt persistently tachycardic given adenosine and amio gtt 05/04: Nephrology will try Lasix, CCM adjust advanced to APRV to help with ventilation. Will obtain BMP at 2100. CCM okay with SPO2 greater than 88, pH of greater than 7.2. Hypernatremia to 160, started on D5 W, severe hypercapnia noted on ABG and patient ventilator settings was changed. Lactic acidosis noted with hyperglycemia. Hyperkalemia noted which was medically treated. 05/05: Lasix again today per nephro., increase in Plow to 30 post abg per [facility], increase in D5W gtt and FWF q200 and will restart TF. Vanco d/c r/t GNR in urine and corral changed. Remains on levo and vaso. 05/06: BP steadily decreasing. Levophed gtt titrated up, stop TF, infuse 2 units of PRBC ,and gave 1 L bolus of LR. Nephro and PCCM recs noted. 05/07: H&H stable after transfusing 2 minutes packed RBC yesterday. Creatinine slightly elevated today -nephrology following. We will repeat BMP tomorrow. Sodium level normalized. Patient remains on mechanical ventilation with Levophed. 05/08: Patient is stable, critical care recommended to continue to hold Lovenox/heparin for anemia. Patient remains on pressor support. Patient on maximal ventilation support still experiencing hypoxia. Had a discussion with the daughter and critical care attending family wants to continue full CODE STATUS. Renal function declining, nephrology following. 05/09: Patient coded twice last night. Patient had another cardiac arrest this am with spontaneous return of circulation after ACLS initiation and status post 1x epi, 1 xbicarb and 1 x calcium chloride. discussed with patient brother at bedside and updated daughter by phone following the cardiac arrest. Discussed with family about poor prognosis as patient now with multiorgan failure : Severe hypoxic respiratory failure with interstitial lung disease bilateral multiple PE, acute renal failure with hyperkalemia, severe septic shock, metabolic encephalopathy. Family verbalized understanding and wanted to proceed with full CODE STATUS. Ordered for stat CBC BMP. Order for bicarbonate drip Continue to follow clinically. Extremely poor prognosis. We will also initiate on heparin drip for new diagnosis of pulmonary embolism (initially was on therapeutic dose of Lovenox then was on hold for anemia), repeat culture 05/10/21: Persistently hyperkalemic with declining renal function despite of appropriate medical management. Patient remains on bicarbonate drip, given Kayexalate, insulin, calcium chloride. Poor candidate for hemodialysis as patient being on multiple pressors. Discussed poor prognosis and recommended comfort care/hospice with family but they declined. Patient now with multiorgan failure: Refractory hyperkalemia with ATN, refractory hypotension with severe shock currently on multiple pressors, mechanically ventilated with 100% FiO2 and remain very hypoxic, possible anoxic encephalopathy following multiple cardiac arrest, unable to anticoagulate for pulmonary embolism due to declining H&H. Patient noted to have bloody aspirate from the OGT, stopped heparin, initiated on Protonix IV, monitor H&H, will transfuse as needed. Extremely poor prognosis and unlikely patient will survive. Family well aware of patient's clinical condition but wish to continue full code. 7:20pm: Family came to ICU today and wished to change code status to DNR and comfort care Patient at 5:06pm . family was at bedside. Cause of : Cardiorespiratory arrest due to multiorgan failure including acute respiratory failure, severe hypotension with septic shock, severe sepsis, acute renal failure with refractory hyperkalemia, severe anemia, pulmonary emboli.
== END 2021-05-10 20:00 | DRG 870 ==
LOC: ED 14:05 → 3A 04-22 00:04 → CC1 04-22 20:21
PROVIDERS: ADMIT Internal Medicine; ATTEND Internal Medicine
PROC: 5A1955Z Respiratory Ventilation, Greater than 96 Consecutive Hours (ICD-10-PCS; 2021-04-21)
PROC: 0BH17EZ Insertion of Endotracheal Airway into Trachea, Via Natural or Artificial Opening (ICD-10-PCS; 2021-04-21)
PROC: 4A033R1 Measurement of Arterial Saturation, Peripheral, Percutaneous Approach (ICD-10-PCS; 2021-04-21)
PROC: 03HC33Z Insertion of Infusion Device into Left Radial Artery, Percutaneous Approach (ICD-10-PCS; principal; 2021-04-23)
PROC: B34JZZZ Ultrasonography of Left Upper Extremity Arteries (ICD-10-PCS; 2021-04-23)
PROC: 02HV33Z Insertion of Infusion Device into Superior Vena Cava, Percutaneous Approach (ICD-10-PCS; 2021-04-25)
PROC: 30233N1 Transfusion of Nonautologous Red Blood Cells into Peripheral Vein, Percutaneous Approach (ICD-10-PCS; 2021-05-06)
DX: A41.59 Other Gram-negative sepsis (principal); J96.01 Acute respiratory failure with hypoxia; G40.901 Epilepsy, unspecified, not intractable, with status epilepticus; I26.99 Other pulmonary embolism without acute cor pulmonale; I63.9 Cerebral infarction, unspecified; M62.82 Rhabdomyolysis; I10 Essential (primary) hypertension; E87.5 Hyperkalemia; R80.9 Proteinuria, unspecified; R73.9 Hyperglycemia, unspecified; E87.0 Hyperosmolality and hypernatremia; Z20.822 Contact with and (suspected) exposure to COVID-19; N39.0 Urinary tract infection, site not specified; D64.9 Anemia, unspecified; D69.6 Thrombocytopenia, unspecified; R29.727 NIHSS score 27; Z66 Do not resuscitate; R65.21 Severe sepsis with septic shock; G93.41 Metabolic encephalopathy; I46.9 Cardiac arrest, cause unspecified; G81.94 Hemiplegia, unspecified affecting left nondominant side; N17.0 Acute kidney failure with tubular necrosis; K56.7 Ileus, unspecified; J18.9 Pneumonia, unspecified organism; E78.2 Mixed hyperlipidemia; Z79.82 Long term (current) use of aspirin; Z79.899 Other long term (current) drug therapy
CPT/HCPCS: 31500; 36415; 36600; 70450; 70551; 71045; 71275; 74018; 76770; 80048; 80053; 80061; 80307; 80320; 81001; 82140; 82550; 82553; 82570; 82803; 82805; 82962; 83735; 83930; 83935; 84100; 84132; 84156; 84295; 84300; 84439; 84443; 84478; 84484; 84520; 85007; 85014; 85018; 85025; 85027; 85049; 85379; 85520; 85610; 85730; 86850; 86900; 86901; 86920; 87040; 87070; 87076; 87086; 87186; 87205; 92950; 93005; 93306; 93970; 94002; 94003; 94640; 95819; G0378; A9270-GY; C9113; G0480; J0153; J0171; J0282; J0330; J0610; J0692; J0696; J1265; J1644; J1650; J1815; J1940; J1953; J2060; J2370; J2405; J2704; J2920; J2930; J3010; J3370; J3490; J7030; J7040; J7050; J7060; J7070; J7120; P9016; Q9967; U0003